=== PATIENT | male | born 1970 ===

== ENCOUNTER 2017-02-21 08:14 | Inpatient (IN) | payer MEDICARE, MEDICAID ==
[2017-02-21 08:14] VITALS: BMI 39.0
[2017-02-21] MEDS ORDERED: Sodium Chloride 0.9% 1,000 ML ONE (08:57)
[2017-02-21 09:04] LABS: BASO # 0.2 K/uL (0.0-0.2); BASO % 1.1 % (0.0-2.0); EOS % 0.2 % (0.0-4.0); HEMATOCRIT 46.6 % (35.0-51.0); LYMPH # 1.2 K/uL (1.0-4.3); LYMPH % 5.7 % (20.0-40.0); MEAN CELL VOLUME 85.1 fL (80.0-94.0); MEAN CORPUSCULAR HEMOGLOBIN 26.9 pg (27.0-31.0); MEAN CORPUSCULAR HGB CONC 31.6 g/dL (33.0-37.0); MEAN PLATELET VOLUME 8.1 fL (7.2-11.7); MONO # 1.5 K/uL (0.0-0.8); MONO % 7.3 % (0.0-10.0); RED CELL DISTRIBUTION WIDTH 15.5 % (11.5-14.5)
--- NOTE | 2017-02-21 09:08 | C.PDOC ---
History Of Present Illness 46 y/o male brought to the ED by EMS for evaluation of LUQ abdominal pain. Pt states that his pain radiates up into his chest and worsens with deep breaths. Patient states that he fell 1 1/2 months ago, and was seen at [facility] at the time due to his pain, and had CT scan done. Patient states that he was told he had "problems with his spleen", and was told to follow up with his PMD. Patient was seen by Dr. Ocampo yesterday, and was feeling better at the time. However, pt states he developed abdominal pain associated with shortness of breath, nausea, and vomiting last night. He denies cough, fever, diarrhea, dysuria/hematuria. Time Seen by Provider: 02/21/17 08:22 Chief Complaint (Nursing): Abdominal Pain History Per: Patient History/Exam Limitations: no limitations Onset/Duration Of Symptoms: Days (1) Current Symptoms Are (Timing): Still Present Location Of Pain/Discomfort: Diffuse, LUQ (greater in LUQ) Radiation Of Pain To:: Chest Quality Of Discomfort: "Pain" Associated Symptoms: Nausea, Vomiting. denies: Fever, Chills, Diarrhea, Loss Of Appetite, Back Pain, Constipation, Urinary Symptoms Exacerbating Factors: Deep Breaths Alleviating Factors: None Additional History Per: Patient Past Medical History Reviewed: Historical Data, Nursing Documentation, Vital Signs Vital Signs: Last Vital Signs Temp 97.5 F L 02/27/17 08:00 Pulse 88 02/27/17 08:00 Resp 18 02/27/17 08:00 BP 133/91 H 02/27/17 09:17 Pulse Ox 95 02/27/17 08:00 - Medical History PMH: Anxiety, Asthma, Atrial Fibrillation, Back Problems (Chronic), Bipolar Disorder, CAD, Cardia Arrhythmia, CHF, COPD, Depression, Emphysema, HTN, Hypercholesterolemia, Peripheral Edema, Sleep Apnea (not on cpap/has had sleep studies), Chronic Pain (Lower Back Pain) Surgical History: Appendectomy (2008), Coronary Stent (2008 - 2012 4 stents) - [facility] Procedures CORONAR ARTERIOGR-2 CATH (07/06/13) INJECT/INFUSE NEC (02/22/14) LEFT HEART CARDIAC CATH (07/06/13) LT HEART ANGIOCARDIOGRAM (07/06/13) NEBULIZER THERAPY (03/28/14) NON-INVASIVE MECHANICAL VENTILATION (03/26/15) TRANSFUSE NONAUT FROZEN PLASMA IN PERIPH VEIN, PERC (02/21/17) Family History: States: No Known Family Hx - Social History Hx Tobacco Use: Yes Hx Alcohol Use: No Hx Substance Use: Yes (Cocaine) - Immunization History Hx Tetanus Toxoid Vaccination: Yes Hx Influenza Vaccination: Yes Hx Pneumococcal Vaccination: Yes (08/2014) Review Of Systems Except As Marked, All Systems Reviewed And Found Negative. Constitutional: Negative for: Fever, Chills Cardiovascular: Negative for: Chest Pain, Palpitations Respiratory: Positive for: Shortness of Breath. Negative for: Cough, Sputum, Wheezing Gastrointestinal: Positive for: Nausea, Vomiting, Abdominal Pain. Negative for : Diarrhea, Constipation Genitourinary: Negative for: Dysuria, Frequency, Hematuria Musculoskeletal: Negative for: Back Pain Physical Exam - Physical Exam Appears: Non-toxic, In Acute Distress (in moderate pain), Other (anxious; morbidly obese) Skin: Normal Color, Warm, Dry Head: Normacephalic Eye(s): bilateral: Normal Inspection, EOMI Oral Mucosa: Moist Neck: Normal, Supple Chest: Symmetrical, No Tenderness Cardiovascular: Rhythm Irregular (irregularly irregular, tachycardic) Respiratory: No Accessory Muscle Use, Rales (mild rales at the bases), No Rhonchi, No Wheezing Gastrointestinal/Abdominal: Soft, Tenderness (diffuse tenderness, greatest in LUQ), Distention, No Guarding, No Rebound Back: Normal Inspection, No CVA Tenderness Extremity: Normal ROM, No Deformity Neurological/Psych: Oriented x3 ED Course And Treatment - Laboratory Results Result Diagrams: 02/27/17 07:29 02/27/17 07:29 ECG: Interpreted By Me, Viewed By Hi ECG Rhythm: Atrial Fibrillation, R BBB ECG Interpretation: Abnormal Interpretation Of ECG: Left axis deviation. T-wave inversion at AVL, V2, V3, V4 , V5. RBBB. No acute ST elevation. Rate From EC (bpm) O2 Sat by Pulse Oximetry: 98 (on RA) Pulse Ox Interpretation: Normal - CT Scan/US Abd Pelvis CT Other Rad Studies (CT/US): Read By Radiologist, Radiology Report Reviewed CT/US Interpretation: FINDINGS: LOWER THORAX: Unremarkable. LIVER: Unremarkable. No gross lesion or ductal dilatation. GALLBLADDER AND BILE DUCTS : Unremarkable. PANCREAS: Unremarkable. No gross lesion or ductal dilatation. SPLEEN: Spleen mildly enlarged compared to prior examination. Heterogeneous attenuation of spleen may reflect arterial phase of contrast enhancement. This may obscure splenic hematoma. Suggestion of subcapsular collection in the inferior lateral spleen. Consider reimaging at this later point in time to assist in evaluation. Re- examination of the patient was performed approximately 45 minutes following the initial examination for evaluation of the spleen. The heterogeneity Seen on initial examination persists on delayed imaging consistent with splenic hematoma. Less likely is an infiltrative neoplasm. There is high attenuation fluid again noted in the left pericolic gutter adjacent to the spleen. Possible small laceration. No gross splenic rupture. ADRENALS: Unremarkable. No mass. KIDNEYS AND URETERS: Unremarkable. No hydronephrosis. No solid mass. VASCULATURE: Unremarkable. No aortic aneurysm. BOWEL: Sigmoid diverticulosis. No evidence of diverticulitis. No bowel obstruction. APPENDIX: Not identified. No secondary findings of acute appendicitis. PERITONEUM: Trace ascites. Fluid in both pericolic gutters, left greater than right. Small amount of fluid in pelvis. High attenuation perisplenic fluid. Possible hemorrhage. LYMPH NODES: Unremarkable. No enlarged lymph nodes. BLADDER: Unremarkable. REPRODUCTIVE: Unremarkable. BONES: No acute fracture. OTHER FINDINGS: None. IMPRESSION: Findings concerning for splenic hematoma with possible small laceration and high attenuation fluid/ blood adjacent to spleen in left pericolic gutter. No gross splenic rupture. Progress Note: Blood work, CXR, EKG ordered and reviewed. Patient given IV zofran, IV dilaudid (states "allergic to morphine"). Patient has siginificant abdominal pain with leukocytosis - will get CT scan abd/pelvis with IV contrast. UA also ordered. 11:45PM- Spoke with Dr. Ocampo, he would like Dr. Senior for surgery. Dr. Senior spoken with, would like patient admitted to ICU. Will notify medical and surgical residents. 12:00- Spoke with senior sharepoint architect Dr. Jonas, he agrees with ICU admission, would like Vit K and 2 units FFP. Ordered. - Physician Consult Information Physician Contacted: Roque Ocampo Jr. Outcome Of Conversation: Spoke with Dr. Ocampo (9:05am), he states patient feel several days ago, was seen at [facility] two days ago, CT scan showed resolving splenic hematoma. He was seen in the office yesterday and was well. Critical Care Time - Critical Care Note Total Time (in mins): 40 Documented critical care: time excludes all time spent performing seperately billable procedures. Disposition - Disposition Disposition: HOSPITALIZED Disposition Time: 11:57 Condition: GUARDED - Clinical Impression Clinical Impression: Spleen hematoma, Abdominal pain, Anticoagulated on Coumadin - Scribe Statement The provider has reviewed the documentation as recorded by the Lashawnibpradeep Razo Provider Attestation: All medical record entries made by the Galindo were at my direction and personally dictated by me. I have reviewed the chart and agree that the record accurately reflects my personal performance of the history, physical exam, medical decision making, and the department course for this patient. I have also personally directed, reviewed, and agree with the discharge instructions and disposition. Decision To Admit - Pt Status Changed To: Hospital Disposition Of: Inpatient - Admit Certification Admit to Inpatient:: After my assessment, the patient will require hospitalization for at least two midnights. This is because of the severity of symptoms shown, intensity of services needed, and/or the medical risk in this patient being treated as an outpatient. - InPatient: Physician Admission Certification:: see notes - . Bed Request Type: ICU Admitting Physician: Roque Ocampo Jr. Patient Diagnosis: Spleen hematoma, Abdominal pain, Anticoagulated on Coumadin
[2017-02-21 09:10] LABS: CHLORIDE 95 mmol/L (98-107); POTASSIUM 5.4 mmol/L (3.6-5.2); SODIUM 136 mmol/L (132-148)
[2017-02-21 09:13] LABS: ALKALINE PHOSPHATASE 61 U/L (38-126); ALT/SGPT 43 U/L (21-72); AST/SGOT 58 U/L (17-59); BLOOD UREA NITROGEN 25 mg/dL (9-20); CARBON DIOXIDE 23 mmol/L (22-30); GFR AFRICAN-AMERICAN > 60; GLUCOSE,RANDOM 116 mg/dL (75-110); TOTAL PROTEIN 8.6 g/dL (6.3-8.3)
[2017-02-21 09:14] LABS: CALCIUM 9.1 mg/dl (8.6-10.4)
[2017-02-21 09:15] LABS: INR 2.1
[2017-02-21 09:16] LABS: PLATELET COUNT 406 K/uL (130-400); WHITE BLOOD COUNT 20.3 K/uL (4.8-10.8)
[2017-02-21] MEDS ORDERED: HYDROmorphone 1 mg/ml ISec IVP STA ×2 (09:16→11:35)
[2017-02-21] MEDS ORDERED: HYDROmorphone 1 mg/ml ISec ONE ×2 (09:19→11:42)
[2017-02-21 09:54] LABS: LARGE PLATELETS PRESENT; NEUTROPHIL 76 % (50-75); TOTAL CELLS COUNTED 100
[2017-02-21] MEDS ORDERED: Iodixanol 320 MG/ML 100 ML BOTTLE IV ONE (09:56)
--- NOTE | 2017-02-21 11:37 | CT ---
PROCEDURE: CT Abdomen and Pelvis with contrast HISTORY: luq severe abd pain, leukocytosis, evaluate spleen COMPARISON: 03/09/2015 TECHNIQUE: Contrast dose: 100 mL Visipaque 320 Radiation dose: Total exam DLP = 1281.09 mGy-cm. FINDINGS: LOWER THORAX: Unremarkable. LIVER: Unremarkable. No gross lesion or ductal dilatation. GALLBLADDER AND BILE DUCTS: Unremarkable. PANCREAS: Unremarkable. No gross lesion or ductal dilatation. SPLEEN: Spleen mildly enlarged compared to prior examination. Heterogeneous attenuation of spleen may reflect arterial phase of contrast enhancement. This may obscure splenic hematoma. Suggestion of subcapsular collection in the inferior lateral spleen. Consider reimaging at this later point in time to assist in evaluation. Re- examination of the patient was performed approximately 45 minutes following the initial examination for evaluation of the spleen. The heterogeneity Seen on initial examination persists on delayed imaging consistent with splenic hematoma. Less likely is an infiltrative neoplasm. There is high attenuation fluid again noted in the left pericolic gutter adjacent to the spleen. Possible small laceration. No gross splenic rupture. ADRENALS: Unremarkable. No mass. KIDNEYS AND URETERS: Unremarkable. No hydronephrosis. No solid mass. VASCULATURE: Unremarkable. No aortic aneurysm. BOWEL: Sigmoid diverticulosis. No evidence of diverticulitis. No bowel obstruction. APPENDIX: Not identified. No secondary findings of acute appendicitis. PERITONEUM: Trace ascites. Fluid in both pericolic gutters, left greater than right. Small amount of fluid in pelvis. High attenuation perisplenic fluid. Possible hemorrhage. LYMPH NODES: Unremarkable. No enlarged lymph nodes. BLADDER: Unremarkable. REPRODUCTIVE: Unremarkable. BONES: No acute fracture. OTHER FINDINGS: None. IMPRESSION: Findings concerning for splenic hematoma with possible small laceration and high attenuation fluid/ blood adjacent to spleen in left pericolic gutter. No gross splenic rupture.
[2017-02-21 11:54] LABS: RBC URINE 2 /hpf (0-3); URINE BILIRUBIN NEGATIVE (NEGATIVE); URINE BLOOD NEGATIVE (NEGATIVE); URINE COLOR Yellow (YELLOW); URINE GLUCOSE (UA) NORMAL (Normal); URINE HYALINE CAST >20 /lpf (0-2); URINE KETONE NEGATIVE (NEGATIVE); URINE LEUKOCYTE ESTERASE NEG Leu/uL (Negative); URINE PROTEIN NEGATIVE (NEGATIVE); URINE UROBILINOGEN NORMAL mg/dL (0.2-1.0); WBC URINE 1 /hpf (0-5)
--- NOTE | 2017-02-21 12:45 | CP.PCM.CON ---
History of Present Illness - History of Present Illness History of Present Illness: General/Vascular Surgery - Dr. Senior 46yo M w/ hx of HTN, CAD, CHF, Afib on coumadin, COPD, ARLENE, Bipolar d/o, Chronic back pain d/t herniated discs, presenting w/ LUQ abdominal pain radiating to the back since 4am this morning. Pt states that approx. 1 month ago he fell while at another hospital and developed some LUQ discomfort. He states he began feeling dizzy and worsening of the pain a few days ago so he went to [facility] for evaluation. Pt states a CT showed "a clot in my spleen" but he was told this would resolve and nothing more needed to be done. Pt states his pain improved over the past few days. He saw Dr. Ocampo in office and at that time the pain was better, however this morning he woke up around 4am with severe LUQ pain radiating to the back. Pt describes the pain as sharp, severe, similar to pain he experienced when he had appendicitis. He had associated nausea and 1 episode vomiting, non-bloody/non-bilious. Pt also admits to constipation. He denies any Fevers/Chills, SOB/CP, Diarrhea. Pt is seen in the ED. HR noted to be in the 140s-150s, irregular, BP stable and wnl. Labs significant for WBC of 20.3, K of 5.4. H/H was WNL. A CT abd/ pelvis was done which showed findings consistent w/ splenic hematoma and poss. small splenic laceration w/ high atten. fluid in pericolic gutter. PMH: HTN, CAD, CHF, Afib, COPD, ARLENE, Herniated discs L-spine, Bipolar/Depression PSH: Appendectomy (2008), Coronary stents x4 ([id number]) Review of Systems - Review of Systems All systems: reviewed and no additional remarkable complaints except (as per HPI ) Past Patient History - Infectious Disease Hx of Infectious Diseases: None - Tetanus Immunizations Tetanus Immunization: Up to Date - Past Medical History & Family History Past Medical History?: Yes - Past Social History Smoking Status: Former Smoker - CARDIAC Hx Atrial Fibrillation: Yes Hx Cardia Arrhythmia: Yes Hx Congestive Heart Failure: Yes Hx Hypercholesterolemia: Yes Hx Hypertension: Yes Hx Peripheral Edema: Yes - PULMONARY Hx Asthma: Yes Hx Chronic Obstructive Pulmonary Disease (COPD): Yes Hx Emphysema: Yes Hx Sleep Apnea: Yes (not on cpap/has had sleep studies) - NEUROLOGICAL Hx Neurological Disorder: No - HEENT Hx HEENT Problems: No - RENAL Hx Chronic Kidney Disease: No - ENDOCRINE/METABOLIC Hx Endocrine Disorders: No - HEMATOLOGICAL/ONCOLOGICAL Hx Blood Disorders: No - INTEGUMENTARY Hx Dermatological Problems: No - MUSCULOSKELETAL/RHEUMATOLOGICAL Hx Musculoskeletal Disorders: Yes Hx Back Pain: Yes (Patient verbalized, "lumbar area".) Hx Falls: Yes - GASTROINTESTINAL Hx Gastrointestinal Disorders: No - GENITOURINARY/GYNECOLOGICAL Hx Genitourinary Disorders: No - PSYCHIATRIC Hx Anxiety: Yes Hx Bipolar Disorder: Yes Hx Depression: Yes Hx Substance Use: Yes (Cocaine) - SURGICAL HISTORY Hx Appendectomy: Yes (2008) Hx Coronary Stent: Yes (2008 - 2012 4 stents) - ANESTHESIA Hx Anesthesia: Yes Hx Anesthesia Reactions: No Hx Malignant Hyperthermia: No Meds Allergies/Adverse Reactions: Allergies Allergy/AdvReac Type Severity Reaction Status Date / Time apixaban [From Eliquis] Allergy Verified 02/21/17 08:32 clopidogrel bisulfate Allergy Verified 02/21/17 08:32 [From Plavix] enoxaparin sodium Allergy Verified 02/21/17 08:32 [From Lovenox] morphine Allergy Verified 02/21/17 08:32 Physical Exam - Constitutional Appears: No Acute Distress Additional comments: anxious, sitting at edge of bed - Head Exam Head Exam: ATRAUMATIC, NORMAL INSPECTION, NORMOCEPHALIC - Respiratory Exam Respiratory Exam: NORMAL BREATHING PATTERN. absent: Respiratory Distress - Cardiovascular Exam Cardiovascular Exam: Tachycardia, Irregular Rhythm - GI/Abdominal Exam GI & Abdominal Exam: Distended, Soft, Tenderness (diffuse, increased in LUQ). absent: Firm, Guarding, Mass, Organomegaly, Rebound, Rigid - Extremities Exam Extremities exam: Positive for: pedal edema - Neurological Exam Neurological exam: Alert, Oriented x3 - Psychiatric Exam Psychiatric exam: Anxious, Manic - Skin Skin Exam: Dry, Intact Results - Vital Signs Recent Vital Signs: Last Vital Signs Temp 99 F 02/21/17 10:50 Pulse 79 02/21/17 10:50 Resp 20 02/21/17 10:50 BP 156/77 H 02/21/17 10:50 Pulse Ox 98 02/21/17 12:24 - Labs Result Diagrams: 02/21/17 08:52 02/21/17 08:52 Assessment & Plan - Assessment and Plan (Free Text) Assessment: 46 yo M w/ Afib with RVR, on coumadin, with splenic hematoma and poss. small splenic laceration -Admitted to ICU -Hold anticoag. -INR 2.1, transfusing FFP -Monitor BP, H&H -Cardiac eval. -No surgical plans but will monitor -DW Dr. Parrish Zamarripa PGY2
[2017-02-21] MEDS ORDERED: Digoxin 500 mcg/2ml (0.5 mg/2ml) Inj IVP ONE (13:07)
[2017-02-21] MEDS ORDERED: Digoxin 500 mcg/2ml (0.5 mg/2ml) Inj ONE (13:31)
--- NOTE | 2017-02-21 15:09 | CON ---
DATE: 02/21/2017 A 46-year-old man with history of back problems, history of atrial fibrillation on anticoagulation wi th Coumadin, was admitted to the hospital with abdominal pain after evaluation including CAT scan was found to have a contained splenic hematoma. The patient said earlier he was at the [facility] a number of days ago, was observed overnight and then discharged. PAST MEDICAL HISTORY: Includes a fall about 3 weeks ago and apart from this and back problems and pr oblems with atrial fibrillation ALLERGIES: HE HAS A VARIETY OF ALLERGIES INCLUDING APIXABAN, PLAVIX, LOVENOX, ETC. PHYSICAL EXAMINATION: GENERAL: He is a robust man, 5 feet 10 inches, 280 pounds is listed. ABDOMEN: Stomach is big. There is no particular tenderness or findings of that nature. IMPRESSION: Basically, this is a man who appears to have had sometime in the recent past a splenic h ematoma. He is on Coumadin. There is no evidence of any free bleeding or free blood His hematocrit is over 45. His white count is elevated at 20,000. His platelet count is slightly elevated. PLAN: Our plan at present is to monitor the patient. Because of his heart condition, the problems as sociated with anticoagulation, I think this should be reversed. 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 I have no plans for any surgery and I do not think embolization of the vessel is required at this time. This is a very complex case dealing both with problems of anticoagulation, bleeding, splenic injury, atrial fibrillation, etc. This was all reviewed and discussed with the staff. Papito Senior Jr., MD cc: [id number] TT: 02/21/2017 15:08:39 Confirmation # [id number] Dictation # [id number]
--- NOTE | 2017-02-21 15:33 | RAD ---
PROCEDURE: CHEST RADIOGRAPH, 1 VIEW HISTORY: LUQ PAIN COMPARISON: 12/07/2016 FINDINGS: LUNGS: Clear. PLEURA: No pneumothorax or pleural fluid seen. CARDIOVASCULAR: Mild cardiomegaly. OSSEOUS STRUCTURES: No significant abnormalities. VISUALIZED UPPER ABDOMEN: Normal. OTHER FINDINGS: None. IMPRESSION: No infiltrate. Mild cardiomegaly.
[2017-02-21] MEDS ORDERED: Albuterol HFA 90 mcg/actuation (8 g) INH PRN (16:18)
--- NOTE | 2017-02-21 17:25 | CP.PCM.CON ---
History of Present Illness - History of Present Illness History of Present Illness: 38-year-old male with past medical history of drug abuse, HTN, CAD, CHF, Afib, COPD, ARLENE, Herniated discs L-spine, Bipolar/Depression, Appendectomy (2008), Coronary stents x4 ([id number]). presented with abdominal pain. CT abdomen shows encapsulated splenic hemorrhage. Admitted to ICU for close monitoring Review of Systems - Review of Systems All systems: reviewed and no additional remarkable complaints except - Gastrointestinal Gastrointestinal: Abdominal Pain Past Patient History - Infectious Disease Hx of Infectious Diseases: None - Tetanus Immunizations Tetanus Immunization: Up to Date - Past Medical History & Family History Past Medical History?: Yes - Past Social History Smoking Status: Former Smoker - CARDIAC Hx Atrial Fibrillation: Yes Hx Cardia Arrhythmia: Yes Hx Congestive Heart Failure: Yes Hx Hypercholesterolemia: Yes Hx Hypertension: Yes Hx Peripheral Edema: Yes - PULMONARY Hx Asthma: Yes Hx Chronic Obstructive Pulmonary Disease (COPD): Yes Hx Emphysema: Yes Hx Sleep Apnea: Yes (not on cpap/has had sleep studies) - NEUROLOGICAL Hx Neurological Disorder: No - HEENT Hx HEENT Problems: No - RENAL Hx Chronic Kidney Disease: No - ENDOCRINE/METABOLIC Hx Endocrine Disorders: No - HEMATOLOGICAL/ONCOLOGICAL Hx Blood Disorders: No - INTEGUMENTARY Hx Dermatological Problems: No - MUSCULOSKELETAL/RHEUMATOLOGICAL Hx Falls: Yes - GASTROINTESTINAL Hx Gastrointestinal Disorders: No - GENITOURINARY/GYNECOLOGICAL Hx Genitourinary Disorders: No - PSYCHIATRIC Hx Anxiety: Yes Hx Bipolar Disorder: Yes Hx Depression: Yes Hx Substance Use: Yes (Cocaine) - SURGICAL HISTORY Hx Appendectomy: Yes (2008) Hx Coronary Stent: Yes (2008 - 2012 4 stents) - ANESTHESIA Hx Anesthesia: Yes Hx Anesthesia Reactions: No Hx Malignant Hyperthermia: No Meds Allergies/Adverse Reactions: Allergies Allergy/AdvReac Type Severity Reaction Status Date / Time apixaban [From Eliquis] Allergy Verified 02/21/17 08:32 clopidogrel bisulfate Allergy Verified 02/21/17 08:32 [From Plavix] enoxaparin sodium Allergy Verified 02/21/17 08:32 [From Lovenox] morphine Allergy Verified 02/21/17 08:32 - Medications Medications: Current Medications Albuterol (Ventolin Hfa 90 Mcg/Actuation (8 G)) 1 puff INH RBID PRN PRN Reason: Wheezing Alprazolam (Xanax) 1 mg PO TID PRN PRN Reason: .anxiety Carvedilol (Coreg) 12.5 mg PO BID [facility] Cyclobenzaprine HCl (Flexeril) 10 mg PO HS [facility] Digoxin (Lanoxin) 0.125 mg PO DAILY [facility] Diltiazem HCl (Cardizem) 30 mg PO QID [facility] Famotidine (Pepcid) 20 mg PO DAILY [facility] Fluoxetine HCl (Prozac) 30 mg PO DAILY [facility] Gabapentin (Neurontin) 300 mg PO BID [facility] Hydromorphone HCl (Dilaudid) 1 mg IVP Q4H PRN PRN Reason: Pain, moderate (4-7) Ibuprofen (Motrin Tab) 800 mg PO TID PRN PRN Reason: Pain, moderate (4-7) Montelukast Sodium (Singulair) 10 mg PO HS [facility] Nicotine (Nicoderm Cq) 1 patch TD DAILY [facility] Nitroglycerin (Nitrostat Sl Tab) 0.4 mg SL Q5M PRN PRN Reason: CHEST PAIN Oxycodone/Acetaminophen (Percocet 5/325 Mg Tab) 2 tab PO Q6H PRN PRN Reason: Pain, moderate (4-7) Stop: 02/24/17 18:01 Rosuvastatin Calcium (Crestor) 5 mg PO HS [facility] Senna/Docusate Sodium (Senokot S 50 Mg-8.6 Mg) 1 tab PO BID [facility] Physical Exam - Head Exam Head Exam: ATRAUMATIC, NORMAL INSPECTION, NORMOCEPHALIC - Eye Exam Eye Exam: EOMI, Normal appearance, PERRL - ENT Exam ENT Exam: Mucous Membranes Moist, Normal Exam - Respiratory Exam Respiratory Exam: Clear to Auscultation Bilateral, NORMAL BREATHING PATTERN - Cardiovascular Exam Cardiovascular Exam: REGULAR RHYTHM - GI/Abdominal Exam GI & Abdominal Exam: Tenderness. absent: Guarding - Neurological Exam Neurological exam: Alert, CN II-XII Intact, Normal Gait, Oriented x3, Reflexes Normal - Psychiatric Exam Psychiatric exam: Agitated Results - Vital Signs Recent Vital Signs: Last Vital Signs Temp 98.1 F 02/21/17 15:19 Pulse 118 H 02/21/17 15:19 Resp 26 H 02/21/17 15:19 BP 108/66 02/21/17 15:19 Pulse Ox 98 02/21/17 17:22 - Labs Result Diagrams: 02/21/17 08:52 02/21/17 08:52 Labs: Laboratory Results - last 24 hr 02/21/17 12:41 Blood Type O POSITIVE Blood Type Confirm O POSITIVE Antibody Screen Negative Assessment & Plan (1) Splenic hemorrhage Assessment and Plan: 38-year-old male with past medical history of drug abuse, HTN, CAD, CHF, Afib, COPD, ARLENE, Herniated discs L-spine, Bipolar/Depression, Appendectomy (2009), Coronary stents x4 ([id number]). presented with encapsulated splenic hemorrhage. Neuro: Alert and oriented 3 Pulm: No acute issues, breathing spontaneously on room air CV: Hemodynamically stable. hypertension, holding antihypertensives with possibility of ongoing bleed. Hem: No anemia from blood loss currently. patient was on Coumadin for A. fib and aspirin for CAD. Reversing Coumadin with vitamin K and 1 unit of FFP. Reversing aspirin with DDAVP and 1 unit of platelets. We'll monitor H&H every 6 hours. Renal: No acute issues, urine output within normal limits, will monitor. Endo: No acute issues GI: Regular diet ID: No acute issues DVT proph - anticoagulation held with current bleed, SCDs GI proph - Pepcid alarcon for strict I/O's during acute illness, and patient complains of urinary retention Code status - full code Crtical Care Time spent 35 minutes Multi-disciplinary rounds were performed with house staff, nursing, speech therapy, respiratory therapy, pharmacy and nutrition with integrated input from the primary team/attending and other consulting services. The documented time is cumulative and includes review of patient data/exams/labs/chart review and examination of the patient on rounds and throughout the day; time is exclusive of any procedures or teaching time. Status: Acute
[2017-02-21] MEDS ORDERED: DESMOPRESSIN IV ONE (17:27)
[2017-02-21] MEDS ORDERED: SODIUM CHLORIDE 0.9% IV ONE (17:27)
[2017-02-21] MEDS: HYDROmorphone 1 mg/ml ISec IVP PRN ×2 (17:37→21:38)
[2017-02-21] MEDS: Docusate-Senna 50 mg-8.6 mg Tab PO SCH (17:40)
[2017-02-21 18:22] LABS: HEMATOCRIT 42.6 % (35.0-51.0)
[2017-02-22] MEDS: HYDROmorphone 1 mg/ml ISec IVP PRN ×4 (01:41→19:49)
[2017-02-22 06:25] LABS: HEMATOCRIT 37.9 % (35.0-51.0); MEAN CELL VOLUME 84.7 fL (80.0-94.0); MEAN CORPUSCULAR HEMOGLOBIN 27.4 pg (27.0-31.0); MEAN CORPUSCULAR HGB CONC 32.4 g/dL (33.0-37.0); MEAN PLATELET VOLUME 8.5 fL (7.2-11.7); RED CELL DISTRIBUTION WIDTH 15.3 % (11.5-14.5)
[2017-02-22 06:34] LABS: CHLORIDE 93 mmol/L (98-107); POTASSIUM 4.7 mmol/L (3.6-5.2); SODIUM 132 mmol/L (132-148)
[2017-02-22 06:36] LABS: ALB/GLOB RATIO 0.9 (1.0-2.1); ALKALINE PHOSPHATASE 46 U/L (38-126); AST/SGOT 34 U/L (17-59); BILIRUBIN,TOTAL 1.5 mg/dL (0.2-1.3); BLOOD UREA NITROGEN 31 mg/dL (9-20); CARBON DIOXIDE 26 mmol/L (22-30); GFR AFRICAN-AMERICAN > 60; GLUCOSE,RANDOM 112 mg/dL (75-110); TOTAL PROTEIN 7.8 g/dL (6.3-8.3)
[2017-02-22 06:37] LABS: ALT/SGPT 36 U/L (21-72); CALCIUM 8.6 mg/dl (8.6-10.4); MAGNESIUM 1.9 mg/dL (1.6-2.3); PHOSPHOROUS 3.5 mg/dL (2.5-4.5)
--- NOTE | 2017-02-22 08:01 | CP.PCM.HP ---
History of Present Illness - History of Present Illness History of Present Illness: 46yo M w/ hx of HTN, CAD, CHF, Afib on coumadin, COPD, ARLENE, Bipolar d/o, Chronic back pain d/t herniated discs, presenting w/ LUQ abdominal pain radiating to the back since 4am this morning. Pt states that approx. 1 month ago he fell while at another hospital and developed some LUQ discomfort. He states he began feeling dizzy and worsening of the pain a few days ago so he went to [facility] [place]. Pt states a CT showed "a clot in my spleen" but he was told this would resolve and nothing more needed to be done. Pt states his pain improved over the past few days. He saw Dr. Ocampo in office and at that time the pain was better, however this morning he woke up around 4am with severe LUQ pain radiating to the back. Pt describes the pain as sharp, severe, similar to pain he experienced when he had appendicitis. He had associated nausea and 1 episode vomiting, non-bloody/non-bilious. Pt also admits to constipation. He denies any Fevers/Chills, SOB/CP, Diarrhea. Pt is seen in the ED. HR noted to be in the 140s-150s, irregular, BP stable and wnl. Labs significant for WBC of 20.3, K of 5.4. H/H was WNL. A CT abd/ pelvis was done which showed findings consistent w/ splenic hematoma and poss. small splenic laceration w/ high atten. fluid in pericolic gutter. PMH: HTN, CAD, CHF, Afib, COPD, ARLENE, Herniated discs L-spine, Bipolar/Depression PSH: Appendectomy (2008), Coronary stents x4 ([id number]) Present on Admission - Present on Admission Any Indicators Present on Admission: No Review of Systems - Review of Systems All systems: reviewed and no additional remarkable complaints except (as per HPI ) Past Patient History - Infectious Disease Hx of Infectious Diseases: None - Tetanus Immunizations Tetanus Immunization: Up to Date - Past Medical History & Family History Past Medical History?: Yes - Past Social History Smoking Status: Former Smoker - CARDIAC Hx Atrial Fibrillation: Yes Hx Cardia Arrhythmia: Yes Hx Congestive Heart Failure: Yes Hx Hypercholesterolemia: Yes Hx Hypertension: Yes Hx Peripheral Edema: Yes - PULMONARY Hx Asthma: Yes Hx Chronic Obstructive Pulmonary Disease (COPD): Yes Hx Emphysema: Yes Hx Sleep Apnea: Yes (not on cpap/has had sleep studies) - NEUROLOGICAL Hx Neurological Disorder: No - HEENT Hx HEENT Problems: No - RENAL Hx Chronic Kidney Disease: No - ENDOCRINE/METABOLIC Hx Endocrine Disorders: No - HEMATOLOGICAL/ONCOLOGICAL Hx Blood Disorders: No - INTEGUMENTARY Hx Dermatological Problems: No - MUSCULOSKELETAL/RHEUMATOLOGICAL Hx Falls: Yes - GASTROINTESTINAL Hx Gastrointestinal Disorders: No - GENITOURINARY/GYNECOLOGICAL Hx Genitourinary Disorders: No - PSYCHIATRIC Hx Anxiety: Yes Hx Bipolar Disorder: Yes Hx Depression: Yes Hx Substance Use: Yes (Cocaine) - SURGICAL HISTORY Hx Appendectomy: Yes (2008) Hx Coronary Stent: Yes (2008 - 2012 4 stents) - ANESTHESIA Hx Anesthesia: Yes Hx Anesthesia Reactions: No Hx Malignant Hyperthermia: No Meds Allergies/Adverse Reactions: Allergies Allergy/AdvReac Type Severity Reaction Status Date / Time apixaban [From Eliquis] Allergy Verified 02/21/17 08:32 clopidogrel bisulfate Allergy Verified 02/21/17 08:32 [From Plavix] enoxaparin sodium Allergy Verified 02/21/17 08:32 [From Lovenox] morphine Allergy Verified 02/21/17 08:32 Physical Exam - Constitutional Additional comments: anxious - Head Exam Head Exam: ATRAUMATIC, NORMOCEPHALIC - Respiratory Exam Respiratory Exam: NORMAL BREATHING PATTERN - Cardiovascular Exam Cardiovascular Exam: Irregular Rhythm, +S1, +S2 - GI/Abdominal Exam GI & Abdominal Exam: Distended, Normal Bowel Sounds, Soft, Tenderness - Extremities Exam Extremities exam: Positive for: pedal edema - Neurological Exam Neurological exam: Alert, Oriented x3 - Skin Skin Exam: Dry, Warm Results - Vital Signs Recent Vital Signs: Last Vital Signs Temp 98.5 F 02/22/17 04:00 Pulse 88 02/22/17 05:00 Resp 21 02/22/17 05:00 BP 121/101 H 02/22/17 01:00 Pulse Ox 90 L 02/22/17 02:00 - Labs Result Diagrams: 02/22/17 06:18 02/22/17 06:18 Labs: Laboratory Results - last 24 hr 02/21/17 02/21/17 02/22/17 12:41 18:08 06:18 WBC 26.0 H RBC 4.48 Hgb 13.3 12.3 Hct 42.6 37.9 MCV 84.7 MCH 27.4 MCHC 32.4 L RDW 15.3 H Plt Count 306 D MPV 8.5 PT 22.5 H INR 2.0 APTT 37 H D Sodium 132 Potassium 4.7 Chloride 93 L Carbon Dioxide 26 Anion Gap 18 BUN 31 H Creatinine 1.2 Est GFR ( Amer) > 60 Est GFR (Non-Af Amer) > 60 Random Glucose 112 H Calcium 8.6 Phosphorus 3.5 Magnesium 1.9 Total Bilirubin 1.5 H AST 34 ALT 36 Alkaline Phosphatase 46 Total Protein 7.8 Albumin 3.7 Globulin 4.0 H Albumin/Globulin Ratio 0.9 L Blood Type O POSITIVE Blood Type Confirm O POSITIVE Antibody Screen Negative Assessment & Plan - Assessment and Plan (Free Text) Assessment: Abdominal pain - Secondary to splenic hematoma - Management per surgery Afib with RVR - holding anticoagulation - management as per ICU
--- NOTE | 2017-02-22 09:06 | CP.PCM.PN ---
Subjective - Date & Time of Evaluation Date of Evaluation: 02/22/17 Time of Evaluation: 08:00 - Subjective Subjective: General Surgery Pt S&E, NAEO. Still with pain in LUQ and L chest only mildly diminished with pain meds. Tolerating diet. Objective - Vital Signs/Intake and Output Vital Signs (last 24 hours): Temp Pulse Resp BP Pulse Ox 98.5 F 111 H 29 H 124/101 H 91 L 02/22/17 04:00 02/22/17 08:00 02/22/17 08:00 02/22/17 01:01 02/22/17 02:00 Intake and Output: 02/22/17 02/22/17 06:59 18:59 Intake Total 1390 200 Output Total 875 Balance 515 200 - Medications Medications: Current Medications Albuterol (Ventolin Hfa 90 Mcg/Actuation (8 G)) 1 puff INH RBID PRN PRN Reason: Wheezing Alprazolam (Xanax) 1 mg PO TID PRN PRN Reason: .anxiety Last Admin: 02/22/17 03:05 Dose: 1 mg Carvedilol (Coreg) 12.5 mg PO BID [facility] Last Admin: 02/21/17 17:39 Dose: 12.5 mg Cyclobenzaprine HCl (Flexeril) 10 mg PO [facility] Last Admin: 02/21/17 21:38 Dose: 10 mg Digoxin (Lanoxin) 0.125 mg PO DAILY [facility] Diltiazem HCl (Cardizem) 30 mg PO QID [facility] Last Admin: 02/21/17 21:38 Dose: 30 mg Famotidine (Pepcid) 20 mg PO DAILY [facility] Fluoxetine HCl (Prozac) 30 mg PO DAILY [facility] Gabapentin (Neurontin) 300 mg PO BID [facility] Last Admin: 02/21/17 17:40 Dose: 300 mg Hydromorphone HCl (Dilaudid) 1 mg IVP Q4H PRN PRN Reason: Pain, moderate (4-7) Last Admin: 02/22/17 05:49 Dose: 1 mg Ibuprofen (Motrin Tab) 800 mg PO TID PRN PRN Reason: Pain, moderate (4-7) Montelukast Sodium (Singulair) 10 mg PO [facility] Last Admin: 02/21/17 21:38 Dose: 10 mg Nicotine (Nicoderm Cq) 1 patch TD DAILY [facility] Last Admin: 02/21/17 17:40 Dose: 1 patch Nitroglycerin (Nitrostat Sl Tab) 0.4 mg SL Q5M PRN PRN Reason: CHEST PAIN Oxycodone/Acetaminophen (Percocet 5/325 Mg Tab) 2 tab PO Q6H PRN PRN Reason: Pain, moderate (4-7) Stop: 02/24/17 18:01 Rosuvastatin Calcium (Crestor) 5 mg PO HS [facility] Last Admin: 02/21/17 21:37 Dose: 5 mg Senna/Docusate Sodium (Senokot S 50 Mg-8.6 Mg) 1 tab PO BID [facility] Last Admin: 02/21/17 17:40 Dose: 1 tab - Labs Labs: 02/22/17 06:18 02/22/17 06:18 PT 22.5 SECONDS (9.7-12.2) H 02/22/17 06:18 INR 2.0 02/22/17 06:18 APTT 37 SECONDS (21-34) H D 02/22/17 06:18 - Constitutional Appears: Non-toxic, No Acute Distress - Head Exam Head Exam: ATRAUMATIC, NORMOCEPHALIC - Eye Exam Eye Exam: EOMI. absent: Scleral icterus - Respiratory Exam Respiratory Exam: NORMAL BREATHING PATTERN. absent: Respiratory Distress - GI/Abdominal Exam GI & Abdominal Exam: Guarding (LUQ), Soft, Tenderness (in LUQ). absent: Distended, Firm, Rigid - Neurological Exam Neurological Exam: Alert, Awake, Oriented x3 - Skin Skin Exam: Dry, Warm Assessment and Plan - Assessment and Plan (Free Text) Assessment: 46M with Afib with RVR, on coumadin, with splenic hematoma and poss. small splenic laceration Plan: Monitor H&H. Holding anticoagulation. Will D/W Dr. Senior. PGY3
[2017-02-22] MEDS ORDERED: Pneumococcal 23-Valent Vaccine SC ONE ×2 (09:53→10:18)
[2017-02-22] MEDS ORDERED: Phytonadione 10 mg/ml Inj (Adult) SC STA (10:05)
[2017-02-22] MEDS: Digoxin 125 mcg (0.125 mg) Tab PO SCH (10:22)
[2017-02-22] MEDS ORDERED: Phytonadione 10 mg/ml Inj (Adult) SC ONE (10:30)
--- NOTE | 2017-02-22 11:04 | RAD ---
HISTORY: r/o pna COMPARISON: 02/21/2017 FINDINGS: LUNGS: Vaguely linear opacity at right lung base likely reflects atelectasis. Rule out early pneumonia. No infiltrate elsewhere. PLEURA: Limited. Left costophrenic angle is not included on this film. Right costophrenic angle clear. No pneumothorax. CARDIOVASCULAR: Mild congestive change. Heart size cannot be evaluated due to gross magnification. OSSEOUS STRUCTURES: No significant abnormalities. VISUALIZED UPPER ABDOMEN: Normal. OTHER FINDINGS: None. IMPRESSION: Probable linear atelectasis at right lung base. Followup.
[2017-02-22] MEDS: Docusate-Senna 50 mg-8.6 mg Tab PO SCH ×2 (11:37→17:52)
[2017-02-22] MEDS: Piperacill/Tazo 3.375gm in Dex 50 ML IVPB SCH ×3 (11:38→22:11)
--- NOTE | 2017-02-22 15:37 | CP.CCUPN ---
CCU Subjective - Physician Review Events Since Last Encounter (Free Text): 02/22/17 15:32 Patient is belligerent at baseline. No real complaints of clinical symptoms. CCU Objective - Vital Signs / Intake & Output Vital Signs (Last 4 hours): Vital Signs Pulse Resp BP 02/22/17 14:00 72 22 02/22/17 13:41 79 16 02/22/17 13:00 102 H 02/22/17 12:17 93 H 02/22/17 12:03 86 18 133/91 H 02/22/17 12:00 86 21 Intake and Output (Last 8hrs): Intake & Output 02/22/17 02/22/17 02/22/17 06:59 14:59 22:59 Intake Total 780 1050 Output Total 550 Balance 230 1050 Intake: Intake, IV Amount 100 Right Antecubital 100 Oral 780 950 Output: Urine 550 Urine, Voided 550 - Physical Exam Head: Positive for: Atraumatic, Normocephalic Pupils: Positive for: PERRL Extroacular Muscles: Positive for: EOMI Mouth: Positive for: Moist Mucous Membranes Neck: Positive for: Normal Range of Motion Respiratory/Chest: Positive for: Clear to Auscultation, Good Air Exchange Cardiovascular: Positive for: Regular Rate and Rhythm Abdomen: Positive for: Normal Bowel Sounds. Negative for: Tenderness, Distention, Peritoneal Signs Neurological: Positive for: GCS=15, CN II-XII Intact, Speech Normal Psychiatric: Positive for: Alert, Oriented x 3 - Medications Active Medications: Active Medications Generic Name Dose Route Start Last Admin Trade Name Freq PRN Reason Stop Dose Admin Albuterol 1 puff 02/21/17 16:18 Ventolin Hfa 90 Mcg/Actuation (8 G) INH RBID PRN Wheezing Alprazolam 1 mg 02/21/17 16:09 02/22/17 12:19 Xanax PO 1 mg TID PRN Administration .anxiety Carvedilol 12.5 mg 02/21/17 18:00 02/22/17 09:00 Coreg PO 12.5 mg BID JEIMY Administration Cyclobenzaprine HCl 10 mg 02/21/17 22:00 02/21/17 21:38 Flexeril PO 10 mg HS JEIMY Administration Digoxin 0.125 mg 02/22/17 10:00 02/22/17 10:22 Lanoxin PO 0.125 mg DAILY JEIMY Administration Diltiazem HCl 30 mg 02/21/17 18:00 02/22/17 11:54 Cardizem PO 30 mg QID JEIMY Administration Famotidine 20 mg 02/22/17 10:00 02/22/17 10:22 Pepcid PO 20 mg DAILY JEIMY Administration Fluoxetine HCl 30 mg 02/22/17 10:00 02/22/17 11:00 Prozac PO 30 mg DAILY JEIMY Administration Gabapentin 300 mg 02/21/17 18:00 02/22/17 11:39 Neurontin PO 300 mg BID JEIMY Administration Hydromorphone HCl 1 mg 02/21/17 17:12 02/22/17 10:19 Dilaudid IVP 1 mg Q4H PRN Administration Pain, moderate (4-7) Piperacillin Sod/Tazobactam Sod 50 mls @ 100 mls/hr 02/22/17 11:00 02/22/17 11: 38 Zosyn 3.375 Gm Iv Premix IVPB 100 mls/hr Q6H JEIMY Administration Ibuprofen 800 mg 02/21/17 16:09 Motrin Tab PO TID PRN Pain, moderate (4-7) Montelukast Sodium 10 mg 02/21/17 22:00 02/21/17 21:38 Singulair PO 10 mg HS JEIMY Administration Nicotine 1 patch 02/21/17 16:15 02/22/17 11:55 Nicoderm Cq TD 1 patch DAILY [facility]IM[facility] Administration Nitroglycerin 0.4 mg 02/21/17 16:45 Nitrostat Sl Tab SL Q5M PRN CHEST PAIN Oxycodone/Acetaminophen 2 tab 02/21/17 18:00 Percocet 5/325 Mg Tab PO 02/24/17 18:01 Q6H PRN Pain, moderate (4-7) Rosuvastatin Calcium 5 mg 02/21/17 22:00 02/21/17 21:37 Crestor PO 5 mg HS JEIMY Administration Senna/Docusate Sodium 1 tab 02/21/17 18:00 02/22/17 11:37 Senokot S 50 Mg-8.6 Mg PO 1 tab BID JEIMY Administration - Patient Studies Lab Studies: Lab Studies 02/22/17 02/21/17 Range/Units 06:18 18:08 WBC 26.0 H (4.8-10.8) K/uL RBC 4.48 (4.40-5.90) Mil/uL Hgb 12.3 13.3 (12.0-18.0) g/dL Hct 37.9 42.6 (35.0-51.0) % MCV 84.7 (80.0-94.0) fL MCH 27.4 (27.0-31.0) pg MCHC 32.4 L (33.0-37.0) g/dL RDW 15.3 H (11.5-14.5) % Plt Count 306 D (130-400) K/uL MPV 8.5 (7.2-11.7) fL Differential Comment PT 22.5 H (9.7-12.2) SECONDS INR 2.0 APTT 37 H D (21-34) SECONDS Sodium 132 (132-148) mmol/L Potassium 4.7 (3.6-5.2) mmol/L Chloride 93 L (98-107) mmol/L Carbon Dioxide 26 (22-30) mmol/L Anion Gap 18 (10-20) BUN 31 H (9-20) mg/dL Creatinine 1.2 (0.8-1.5) MG/DL Est GFR ( Amer) > 60 Est GFR (Non-Af Amer) > 60 Random Glucose 112 H (75-110) mg/dL Calcium 8.6 (8.6-10.4) mg/dl Phosphorus 3.5 (2.5-4.5) mg/dL Magnesium 1.9 (1.6-2.3) mg/dL Total Bilirubin 1.5 H (0.2-1.3) mg/dL AST 34 (17-59) U/L ALT 36 (21-72) U/L Alkaline Phosphatase 46 (38-126) U/L Total Protein 7.8 (6.3-8.3) g/dL Albumin 3.7 (3.5-5.0) g/dL Globulin 4.0 H (2.2-3.9) gm/dL Albumin/Globulin Ratio 0.9 L (1.0-2.1) Laboratory Results - last 24 hr 02/21/17 02/22/17 18:08 06:18 WBC 26.0 H RBC 4.48 Hgb 13.3 12.3 Hct 42.6 37.9 MCV 84.7 MCH 27.4 MCHC 32.4 L RDW 15.3 H Plt Count 306 D MPV 8.5 Differential Comment PT 22.5 H INR 2.0 APTT 37 H D Sodium 132 Potassium 4.7 Chloride 93 L Carbon Dioxide 26 Anion Gap 18 BUN 31 H Creatinine 1.2 Est GFR ( Amer) > 60 Est GFR (Non-Af Amer) > 60 Random Glucose 112 H Calcium 8.6 Phosphorus 3.5 Magnesium 1.9 Total Bilirubin 1.5 H AST 34 ALT 36 Alkaline Phosphatase 46 Total Protein 7.8 Albumin 3.7 Globulin 4.0 H Albumin/Globulin Ratio 0.9 L EKG/Cardiology Studies: Cardiology / EKG Studies 02/21/17 21:14 EKG [ELECTROCARDIOGRAM] Routine Comment: Mode Of Transportation: PORTABLE Reason For Exam: cp Fingerstick Blood Sugar Results: 117 Review of Systems - Review of Systems All systems: reviewed and no additional remarkable complaints except - Gastrointestinal Gastrointestinal: UNREMARKABLE Critical Care Progress Note - Nutrition Nutrition: Nutrition Category Date Time Status Regular Diet [DIET] Diets 02/21/17 Dinner Active Assessment/Plan (1) Splenic hemorrhage Assessment and plan: 38-year-old male with past medical history of drug abuse, HTN, CAD, CHF, Afib, COPD, ARLENE, Herniated discs L-spine, Bipolar/Depression, Appendectomy (2008), Coronary stents x4 ([id number]). (02/21) presented with encapsulated splenic hemorrhage. Neuro: Alert and oriented 3 Pulm: No acute issues, breathing spontaneously on room air CV: Hemodynamically stable. hypertension, holding antihypertensives with possibility of ongoing bleed. Hem: No anemia from blood loss currently. patient was on Coumadin for A. fib and aspirin for CAD. Reversing Coumadin with repeat vitamin K and 2 more units of FFP (total 3). Reversed aspirin with DDAVP and 1 unit of platelets. Will monitor H&H every 6 hours. 10 point drop in hematocrit from (02/21), will scan abdomen. Renal: No acute issues, urine output within normal limits, will monitor. Endo: No acute issues GI: Regular diet. splenic hemorrhage, obtaining repeat CT abdomen to assess for bleeding. Vascular surgery - Dr. Senior following. ID: No acute issues DVT proph - anticoagulation held with current bleed, SCDs GI proph - Pepcid Code status - full code Crtical Care Time spent 35 minutes Multi-disciplinary rounds were performed with house staff, nursing, speech therapy, respiratory therapy, pharmacy and nutrition with integrated input from the primary team/attending and other consulting services. The documented time is cumulative and includes review of patient data/exams/labs/chart review and examination of the patient on rounds and throughout the day; time is exclusive of any procedures or teaching time. Current Visit: Yes Status: Acute
--- NOTE | 2017-02-22 16:10 | CT ---
PROCEDURE: CT Abdomen and Pelvis without intravenous contrast HISTORY: assess splenic hemorrhage COMPARISON: 02/21/2017 TECHNIQUE: Without contrast.. Contrast Dose: 0 Radiation dose: Total exam DLP = 1119.04 mGy-cm. FINDINGS: LOWER THORAX: Linear atelectasis in both lower lobes. Trace left pleural effusion. LIVER: Hepatomegaly. Smooth contour. No mass. No biliary ductal dilatation. GALLBLADDER AND BILE DUCTS: Unremarkable. PANCREAS: Unremarkable. No gross lesion or ductal dilatation. SPLEEN: The spleen is mildly enlarged. It measures 14.6 cm in greatest dimension. There is an irregular contour of the spleen in its anterior aspect suggestive of laceration. There is no evidence of otto splenic rupture.There is infiltration of the perisplenic fat, likely due to small amount of hemorrhage. The spleen is heterogeneous in attenuation, suggestive of splenic hematoma. There is no clear evidence of subcapsular hematoma. ADRENALS: Unremarkable. No mass. KIDNEYS AND URETERS: Unremarkable. No hydronephrosis. No solid mass. VASCULATURE: Unremarkable. No aortic aneurysm. BOWEL: Sigmoid diverticulosis. No evidence of diverticulitis. No bowel obstruction. No other abnormal bowel loops. APPENDIX: Not identified. No secondary findings to suggest acute appendicitis peer PERITONEUM: Small amount of fluid in left pericolic gutter and in pelvis. LYMPH NODES: Unremarkable. No enlarged lymph nodes. BLADDER: Unremarkable. REPRODUCTIVE: Unremarkable prostate BONES: No acute fracture. OTHER FINDINGS: None. IMPRESSION: Heterogeneous spleen with fluid adjacent to spleen in left pericolic gutter an infiltration of perisplenic fat. Irregular contour of spleen. Likely splenic laceration and splenic hematoma. No gross splenic rupture. Hepatosplenomegaly.
[2017-02-22] MEDS ORDERED: Sodium Chloride 0.9% 500 ML IV ONE (21:20)
[2017-02-23] MEDS: Piperacill/Tazo 3.375gm in Dex 50 ML IVPB SCH ×4 (04:45→22:20)
[2017-02-23 06:41] LABS: BASO # 0.1 K/uL (0.0-0.2); BASO % 0.3 % (0.0-2.0); EOS # 0.3 K/uL (0.0-0.7); EOS % 1.2 % (0.0-4.0); HEMATOCRIT 33.5 % (35.0-51.0); LYMPH # 1.3 K/uL (1.0-4.3); MEAN CORPUSCULAR HGB CONC 31.7 g/dL (33.0-37.0); MEAN PLATELET VOLUME 8.3 fL (7.2-11.7); MONO # 1.9 K/uL (0.0-0.8); MONO % 7.2 % (0.0-10.0); PLATELET COUNT 257 K/uL (130-400); RED CELL DISTRIBUTION WIDTH 15.4 % (11.5-14.5); WHITE BLOOD COUNT 26.1 K/uL (4.8-10.8)
[2017-02-23 07:03] LABS: POTASSIUM 3.7 mmol/L (3.6-5.2)
[2017-02-23 07:05] LABS: ALB/GLOB RATIO 0.8 (1.0-2.1); TOTAL PROTEIN 7.2 g/dL (6.3-8.3)
[2017-02-23 07:06] LABS: CALCIUM 7.8 mg/dl (8.6-10.4); MAGNESIUM 1.9 mg/dL (1.6-2.3)
--- NOTE | 2017-02-23 07:17 | CP.CCUPN ---
<Adis Malone - Last Filed: 02/23/17 14:19> CCU Subjective - Physician Review Subjective (Free Text): 02/23/17 14:10 Pt seen and examined. Patient OOB to chair, eating breakfast and lunch in no acute distress. Patient extremely agitated, yelling at the medical team requiring the presence of security. Patient does not appear to be attentive to the team though. Patient's behavior quite disruptive drawing the attention of other patients and their family members in the ICU. Patient complains of pain in the LUQ, as well as new onset dysuria. Patient also complains of reproducible left sided chest pain with inspiration. When asked to wear the oxygen nasal cannula; patient refused. Patient also pulled of pulse-ox monitor. During rounds, patient was sleeping after administration of analgesics. Patient keeps asking for pain medications, despite being given . Patient extremely combative. Critical Care Time Spent (in minutes): 40 CCU Objective - Vital Signs / Intake & Output Vital Signs (Last 4 hours): Vital Signs Pulse Resp BP Pulse Ox 02/23/17 07:00 91 H 24 77 L 02/23/17 06:51 103 H 29 H 124/69 91 L 02/23/17 06:44 108 H 30 H 02/23/17 06:00 94 H 22 83 L 02/23/17 05:21 95 H 22 87 L 02/23/17 05:00 87 22 86 L 02/23/17 04:51 79 21 136/118 H 94 L 02/23/17 04:32 86 21 94 L 02/23/17 04:17 78 22 96/69 L 90 L 02/23/17 04:01 96/64 L 02/23/17 04:00 90 20 82 L 02/23/17 03:45 79 21 96/64 L 91 L 02/23/17 03:27 84 21 86 L Intake and Output (Last 8hrs): Intake & Output 02/22/17 02/23/17 02/23/17 22:59 06:59 14:59 Intake Total 1190 530 Output Total 275 Balance 1190 255 Intake: Intake, IV Amount 650 50 Right Antecubital 650 50 Oral 540 480 Output: Urine 275 Urine, Voided 275 - Physical Exam Head: Positive for: Atraumatic, Normocephalic Pupils: Positive for: PERRL Extroacular Muscles: Positive for: EOMI Mouth: Positive for: Moist Mucous Membranes Neck: Positive for: Normal Range of Motion Respiratory/Chest: Positive for: Clear to Auscultation, Good Air Exchange. Negative for: Respiratory Distress, Accessory Muscle Use Cardiovascular: Positive for: Regular Rate and Rhythm, Other (reproducible chest pain) Abdomen: Positive for: Normal Bowel Sounds. Negative for: Tenderness, Distention, Peritoneal Signs Upper Extremity: Positive for: Normal ROM Neurological: Positive for: GCS=15, CN II-XII Intact, Speech Normal Skin: Positive for: Warm, Dry Psychiatric: Positive for: Alert, Oriented x 3 - Medications Active Medications: Active Medications Generic Name Dose Route Start Last Admin Trade Name Freq PRN Reason Stop Dose Admin Albuterol 1 puff 02/21/17 16:18 Ventolin Hfa 90 Mcg/Actuation (8 G) INH RBID PRN Wheezing Alprazolam 1 mg 02/21/17 16:09 02/23/17 00:06 Xanax PO 1 mg TID PRN Administration .anxiety Carvedilol 12.5 mg 02/21/17 18:00 02/22/17 17:44 Coreg PO Not Given BID JEIMY Cyclobenzaprine HCl 10 mg 02/21/17 22:00 02/22/17 23:18 Flexeril PO 10 mg HS JEIMY Administration Digoxin 0.125 mg 02/22/17 10:00 02/22/17 10:22 Lanoxin PO 0.125 mg DAILY JEIMY Administration Diltiazem HCl 30 mg 02/21/17 18:00 02/22/17 21:14 Cardizem PO Not Given QID JEIMY Famotidine 20 mg 02/22/17 10:00 02/22/17 10:22 Pepcid PO 20 mg DAILY JEIMY Administration Fluoxetine HCl 30 mg 02/22/17 10:00 02/22/17 11:00 Prozac PO 30 mg DAILY JEIMY Administration Gabapentin 300 mg 02/21/17 18:00 02/22/17 19:48 Neurontin PO 300 mg BID JEIMY Administration Hydromorphone HCl 1 mg 02/21/17 17:12 02/22/17 19:49 Dilaudid IVP 1 mg Q4H PRN Administration Pain, moderate (4-7) Piperacillin Sod/Tazobactam Sod 50 mls @ 100 mls/hr 02/22/17 11:00 02/23/17 04: 45 Zosyn 3.375 Gm Iv Premix IVPB 100 mls/hr Q6H JEIMY Administration Ibuprofen 800 mg 02/21/17 16:09 Motrin Tab PO TID PRN Pain, moderate (4-7) Montelukast Sodium 10 mg 02/21/17 22:00 02/22/17 23:18 Singulair PO 10 mg HS JEIMY Administration Nicotine 1 patch 02/21/17 16:15 02/22/17 11:55 Nicoderm Cq TD 1 patch DAILY JEIMY Administration Nitroglycerin 0.4 mg 02/21/17 16:45 Nitrostat Sl Tab SL Q5M PRN CHEST PAIN Oxycodone/Acetaminophen 2 tab 02/21/17 18:00 Percocet 5/325 Mg Tab PO 02/24/17 18:01 Q6H PRN Pain, moderate (4-7) Rosuvastatin Calcium 5 mg 02/21/17 22:00 02/22/17 23:18 Crestor PO 5 mg HS JEIMY Administration Senna/Docusate Sodium 1 tab 02/21/17 18:00 02/22/17 17:52 Senokot S 50 Mg-8.6 Mg PO 1 tab BID JEIMY Administration - Patient Studies Lab Studies: Lab Studies 02/23/17 02/23/17 02/22/17 Range/Units 06:34 06:33 06:18 WBC 26.1 H (4.8-10.8) K/uL RBC 3.94 L (4.40-5.90) Mil/uL Hgb 10.6 L (12.0-18.0) g/dL Hct 33.5 L (35.0-51.0) % MCV 85.0 (80.0-94.0) fL MCH 27.0 (27.0-31.0) pg MCHC 31.7 L (33.0-37.0) g/dL RDW 15.4 H (11.5-14.5) % Plt Count 257 (130-400) K/uL MPV 8.3 (7.2-11.7) fL Neut % (Auto) 86.3 H (50.0-75.0) % Lymph % (Auto) 5.0 L (20.0-40.0) % [place] % (Auto) 7.2 (0.0-10.0) % Eos % (Auto) 1.2 (0.0-4.0) % Baso % (Auto) 0.3 (0.0-2.0) % Neut # 22.5 H (1.8-7.0) K/uL Lymph # 1.3 (1.0-4.3) K/uL [place] # 1.9 H (0.0-0.8) K/uL Eos # 0.3 (0.0-0.7) K/uL Baso # 0.1 (0.0-0.2) K/uL Differential Comment Sodium 135 (132-148) mmol/L Potassium 3.7 (3.6-5.2) mmol/L Chloride 93 L (98-107) mmol/L Carbon Dioxide 27 (22-30) mmol/L Anion Gap 19 (10-20) BUN 38 H (9-20) mg/dL Creatinine 1.6 H (0.8-1.5) MG/DL Est GFR ( Amer) 56 Est GFR (Non-Af Amer) 46 Random Glucose 106 (75-110) mg/dL Calcium 7.8 L (8.6-10.4) mg/dl Phosphorus 3.0 (2.5-4.5) mg/dL Magnesium 1.9 (1.6-2.3) mg/dL Total Bilirubin 1.0 (0.2-1.3) mg/dL AST 32 (17-59) U/L ALT 28 (21-72) U/L Alkaline Phosphatase 54 (38-126) U/L Total Protein 7.2 (6.3-8.3) g/dL Albumin 3.2 L (3.5-5.0) g/dL Globulin 4.0 H (2.2-3.9) gm/dL Albumin/Globulin Ratio 0.8 L (1.0-2.1) Laboratory Results - last 24 hr 02/22/17 02/23/17 02/23/17 06:18 06:33 06:34 WBC 26.1 H RBC 3.94 L Hgb 10.6 L Hct 33.5 L MCV 85.0 MCH 27.0 MCHC 31.7 L RDW 15.4 H Plt Count 257 MPV 8.3 Neut % (Auto) 86.3 H Lymph % (Auto) 5.0 L [place] % (Auto) 7.2 Eos % (Auto) 1.2 Baso % (Auto) 0.3 Neut # 22.5 H Lymph # 1.3 [place] # 1.9 H Eos # 0.3 Baso # 0.1 Differential Comment Sodium 135 Potassium 3.7 Chloride 93 L Carbon Dioxide 27 Anion Gap 19 BUN 38 H Creatinine 1.6 H Est GFR ( Amer) 56 Est GFR (Non-Af Amer) 46 Random Glucose 106 Calcium 7.8 L Phosphorus 3.0 Magnesium 1.9 Total Bilirubin 1.0 AST 32 ALT 28 Alkaline Phosphatase 54 Total Protein 7.2 Albumin 3.2 L Globulin 4.0 H Albumin/Globulin Ratio 0.8 L Fingerstick Blood Sugar Results: 117 Review of Systems - Constitutional Constitutional: absent: Fever, Chills, Sweats - EENT Eyes: As Per HPI Ears: As Per HPI Nose/Mouth/Throat: absent: Nasal Congestion, Nasal Discharge - Cardiovascular Cardiovascular: absent: Chest Pain at Rest - Respiratory Respiratory: absent: Dyspnea, Wheezing - Gastrointestinal Gastrointestinal: absent: Abdominal Pain - Genitourinary Genitourinary: Dysuria - Integumentary Integumentary: Dry Skin, Rash - Neurological Neurological: absent: Abnormal Gait, Abnormal Hearing, Abnormal Movements - Psychiatric Psychiatric: Behavioral Changes, Irritability, Mood Swings Critical Care Progress Note - Nutrition Nutrition: Nutrition Category Date Time Status Regular Diet [DIET] Diets 02/21/17 Dinner Active Assessment/Plan - Assessment and Plan (Free Text) Assessment: 46M with a past medical history of HTN, CAD, CHF, A-fib on coumadin, COPD, ARLENE, bipolar disorder, herniated discs, chronic back pain, presents with severe LUQ pain radiating to the back at 4 am 02/21. He had a fall 1 month ago at another hospital and developed LUQ discomfort. PT had gone to [facility] for evaluation of dizziness and LUQ pain, which had improved over the past few days until 02/21 where he was admitted to ICU for critical care monitoring. Plan: Neuro: Neurocheck q4 Alprazolam 1 mg PO TID PRN Cyclobenzaprine 10 mg PO HS JEIMY Digoxin .125 mg PO daily JEIMY Diltiazem 30 mg PO QID JEIMY Prozac 30 mg PO daily Gabapentin 300 mg PO BID Dilaudid 1 mg IVP Q4H PRN Motrin 800 mg PO TID Oxycodone/Acetaminophen 5/325 mg tab 2 tab PO Q6H PRN Moderate pain Cardio: 02/21 EKG 21:14: 02/21 EKG 08:48: Home med Carvedilol 12.5 mg PO BID HELD due to hx of cocaine use Diltiazem 30 mg PO QID JEIMY Nitroglycerin 0.4 mg SL Q5M PRN Rosuvastatin 5 mg PO HS JEIMY Pulmonary: 02/21 CXR: No infiltrate. mild cardiomegaly Ventolin 90 mcg/actuation 8 g 1 puff INH RBID PRN wheezing Montelukast 10 mg PO HS JEIMY Endo: Maintain euglycemia GI: Diet: regular Daily CMP : 2820/575 = 2245cc Monitor I/Os Iniguez Inserted Maintain Iniguez care Senna/Docusate 50 mg - 8.6 mg, 1 tab PO BID JEIMY Nephro: BUN/Cr: 38/1.6 Monitor I/Os Daily CMP Heme: H&H: 10.6/33.5 (12.3/37.9 >10.6/33.5) Check 2pm CBC INR: 2.0 Coumadin reversed with one Vitamin K and two FFP - 02/21 Daily CBC Imagin/26 CT Abdomen/Pelvis: heterogenous spleen with fluid adjacent to spleen in left pericolic gutter an infiltration of perisplenic fat. Irregular contour of spleen. likely splenic laceration and splenic hematoma. no gross splenic rupture. hepatosplenomegaly 02/21 CT Abdomen/Pelvis: findings concerning for splenic hematoma with possible small laceration and high attenuation fluid/blood adjacent to spleen in left pericolic gutter. no gross splenic rupture. ID: [id number] Blood venous Culture: Gram positive cocci in clusters WBC: 26.1 MRSA positive Nares Zosyn 3.375 gm IV Premix 50 cc @ 100 cc/hr IVPB Q6H JEIMY Psych Consider Psych eval UDS- Positive for Opiates, PCP, Cocaine Hx of polysubstance use- pain seeking meds Combative behavior Prophylaxis: DVT: contraindicated d/t splenic laceration GI: Pepcid 20 mg PO daily Nicotine 1 patch TD daily JEIMY Disp: Consider transfer to med surg floor pending stable CBC <Charlee Moses - Last Filed: 02/23/17 19:12> CCU Objective - Vital Signs / Intake & Output Vital Signs (Last 4 hours): Vital Signs Temp Pulse Resp BP Pulse Ox 02/23/17 18:00 70 29 H 02/23/17 17:36 72 24 02/23/17 17:00 75 13 02/23/17 16:00 99.9 F H 88 23 89 L 02/23/17 15:52 120/39 L 02/23/17 15:51 84 30 H 88 L 02/23/17 15:50 82 36 H 96/59 L 89 L 02/23/17 15:44 90 18 62/46 L 86 L 02/23/17 15:39 81 96 Intake and Output (Last 8hrs): Intake & Output 02/23/17 02/23/17 02/23/17 06:59 14:59 22:59 Intake Total 530 650 300 Output Total 275 300 Balance 255 350 300 Intake: Intake, IV Amount 50 Right Antecubital 50 Oral 480 650 300 Output: Urine 275 300 Urine, Voided 275 300 Other: # Voids Urine, Voided 1 - Medications Active Medications: Active Medications Generic Name Dose Route Start Last Admin Trade Name Freq PRN Reason Stop Dose Admin Albuterol 1 puff 02/21/17 16:18 Ventolin Hfa 90 Mcg/Actuation (8 G) INH RBID PRN Wheezing Alprazolam 1 mg 02/21/17 16:09 02/23/17 14:45 Xanax PO 1 mg TID PRN Administration .anxiety Carvedilol 12.5 mg 02/21/17 18:00 02/22/17 17:44 Coreg PO Not Given BID JEIMY Cyclobenzaprine HCl 10 mg 02/21/17 22:00 02/22/17 23:18 Flexeril PO 10 mg HS JEIMY Administration Digoxin 0.125 mg 02/22/17 10:00 02/23/17 10:38 Lanoxin PO 0.125 mg DAILY JEIMY Administration Diltiazem HCl 30 mg 02/21/17 18:00 02/23/17 18:25 Cardizem PO 30 mg QID JEIMY Administration Famotidine 20 mg 02/22/17 10:00 02/23/17 12:07 Pepcid PO 20 mg DAILY JEIMY Administration Fluoxetine HCl 30 mg 02/22/17 10:00 02/23/17 10:38 Prozac PO 30 mg DAILY JEIMY Administration Gabapentin 300 mg 02/21/17 18:00 02/23/17 18:27 Neurontin PO 300 mg BID JEIMY Administration Hydromorphone HCl 1 mg 02/21/17 17:12 02/23/17 14:44 Dilaudid IVP 1 mg Q4H PRN Administration Pain, moderate (4-7) Piperacillin Sod/Tazobactam Sod 50 mls @ 100 mls/hr 02/22/17 11:00 02/23/17 18: 24 Zosyn 3.375 Gm Iv Premix IVPB 100 mls/hr Q6H JEIMY Administration Ibuprofen 800 mg 02/21/17 16:09 Motrin Tab PO TID PRN Pain, moderate (4-7) Montelukast Sodium 10 mg 02/21/17 22:00 02/22/17 23:18 Singulair PO 10 mg HS JEIMY Administration Nicotine 1 patch 02/21/17 16:15 02/23/17 10:37 Nicoderm Cq TD 1 patch DAILY JEIMY Administration Nitroglycerin 0.4 mg 02/21/17 16:45 Nitrostat Sl Tab SL Q5M PRN CHEST PAIN Oxycodone/Acetaminophen 2 tab 02/21/17 18:00 Percocet 5/325 Mg Tab PO 02/24/17 18:01 Q6H PRN Pain, moderate (4-7) Rosuvastatin Calcium 5 mg 02/21/17 22:00 02/22/17 23:18 Crestor PO 5 mg HS JEIMY Administration Senna/Docusate Sodium 1 tab 02/21/17 18:00 02/23/17 18:25 Senokot S 50 Mg-8.6 Mg PO 1 tab BID JEIMY Administration - Patient Studies Lab Studies: Microbiology Studies 02/22/17 09:56 Blood Culture - Preliminary Blood-Venous NO GROWTH AFTER 24 HOURS 02/22/17 09:56 S.aureus & Coag-Neg Staph PNA FISH - Final Blood-Venous Gram Stain - Final 02/21/17 16:30 MRSA Culture (Admit) - Final Nose MRSA DETECTED Lab Studies 02/23/17 02/23/17 02/23/17 Range/Units 15:03 06:34 06:33 WBC 24.9 H 26.1 H (4.8-10.8) K/uL RBC 4.23 L 3.94 L (4.40-5.90) Mil/uL Hgb 11.2 L 10.6 L (12.0-18.0) g/dL Hct 35.7 33.5 L (35.0-51.0) % MCV 84.6 85.0 (80.0-94.0) fL MCH 26.4 L 27.0 (27.0-31.0) pg MCHC 31.3 L 31.7 L (33.0-37.0) g/dL RDW 15.5 H 15.4 H (11.5-14.5) % Plt Count 282 257 (130-400) K/uL MPV 8.1 8.3 (7.2-11.7) fL Neut % (Auto) 85.0 H 86.3 H (50.0-75.0) % Lymph % (Auto) 4.5 L 5.0 L (20.0-40.0) % [place] % (Auto) 9.0 7.2 (0.0-10.0) % Eos % (Auto) 1.4 1.2 (0.0-4.0) % Baso % (Auto) 0.1 0.3 (0.0-2.0) % Neut # 21.1 H 22.5 H (1.8-7.0) K/uL Lymph # 1.1 1.3 (1.0-4.3) K/uL [place] # 2.2 H 1.9 H (0.0-0.8) K/uL Eos # 0.3 0.3 (0.0-0.7) K/uL Baso # 0.0 0.1 (0.0-0.2) K/uL Neutrophils % (Manual) 84 H 84 H (50-75) % Band Neutrophils % 2 (0-2) % Lymphocytes % (Manual) 5 L 4 L (20-40) % Monocytes % (Manual) 8 8 (0-10) % Eosinophils % (Manual) 3 2 (0-4) % Platelet Estimate Normal Normal (NORMAL) Polychromasia Slight Hypochromasia (manual) Slight Slight Poikilocytosis (manual Slight Anisocytosis (manual) Slight Slight Tear Drop Cells Slight Sodium 135 (132-148) mmol/L Potassium 3.7 (3.6-5.2) mmol/L Chloride 93 L (98-107) mmol/L Carbon Dioxide 27 (22-30) mmol/L Anion Gap 19 (10-20) BUN 38 H (9-20) mg/dL Creatinine 1.6 H (0.8-1.5) MG/DL Est GFR ( Amer) 56 Est GFR (Non-Af Amer) 46 Random Glucose 106 (75-110) mg/dL Calcium 7.8 L (8.6-10.4) mg/dl Phosphorus 3.0 (2.5-4.5) mg/dL Magnesium 1.9 (1.6-2.3) mg/dL Total Bilirubin 1.0 (0.2-1.3) mg/dL AST 32 (17-59) U/L ALT 28 (21-72) U/L Alkaline Phosphatase 54 (38-126) U/L Total Protein 7.2 (6.3-8.3) g/dL Albumin 3.2 L (3.5-5.0) g/dL Globulin 4.0 H (2.2-3.9) gm/dL Albumin/Globulin Ratio 0.8 L (1.0-2.1) Laboratory Results - last 24 hr 02/23/17 02/23/17 02/23/17 06:33 06:34 15:03 WBC 26.1 H 24.9 H RBC 3.94 L 4.23 L Hgb 10.6 L 11.2 L Hct 33.5 L 35.7 MCV 85.0 84.6 MCH 27.0 26.4 L MCHC 31.7 L 31.3 L RDW 15.4 H 15.5 H Plt Count 257 282 MPV 8.3 8.1 Neut % (Auto) 86.3 H 85.0 H Lymph % (Auto) 5.0 L 4.5 L [place] % (Auto) 7.2 9.0 Eos % (Auto) 1.2 1.4 Baso % (Auto) 0.3 0.1 Neut # 22.5 H 21.1 H Lymph # 1.3 1.1 [place] # 1.9 H 2.2 H Eos # 0.3 0.3 Baso # 0.1 0.0 Neutrophils % (Manual) 84 H 84 H Band Neutrophils % 2 Lymphocytes % (Manual) 4 L 5 L Monocytes % (Manual) 8 8 Eosinophils % (Manual) 2 3 Platelet Estimate Normal Normal Polychromasia Slight Hypochromasia (manual) Slight Slight Poikilocytosis (manual Slight Anisocytosis (manual) Slight Slight Tear Drop Cells Slight Sodium 135 Potassium 3.7 Chloride 93 L Carbon Dioxide 27 Anion Gap 19 BUN 38 H Creatinine 1.6 H Est GFR ( Amer) 56 Est GFR (Non-Af Amer) 46 Random Glucose 106 Calcium 7.8 L Phosphorus 3.0 Magnesium 1.9 Total Bilirubin 1.0 AST 32 ALT 28 Alkaline Phosphatase 54 Total Protein 7.2 Albumin 3.2 L Globulin 4.0 H Albumin/Globulin Ratio 0.8 L EKG/Cardiology Studies: Cardiology / EKG Studies 02/23/17 11:43 EKG [ELECTROCARDIOGRAM] Routine Comment: Mode Of Transportation: Reason For Exam: chest pain with inspiration; cardiac hx noted Critical Care Progress Note - Nutrition Nutrition: Nutrition Category Date Time Status Regular Diet [DIET] Diets 02/21/17 Dinner Active Attending/Attestation - Attestation I have personally seen and examined this patient.: Yes I have fully participated in the care of the patient.: Yes I have reviewed all pertinent clinical information: Yes Notes (Text): 02/23/17 19:12 Patient is hemodynamically stable. His hemoglobin is stable, complaining of a lot of pain. Otherwise nonspecific. He will be discharged to the telemetry.
[2017-02-23 08:16] LABS: EOSINOPHIL 2 % (0-4); NEUTROPHIL 84 % (50-75); TOTAL CELLS COUNTED 100
[2017-02-23] MEDS: Digoxin 125 mcg (0.125 mg) Tab PO SCH (10:38)
[2017-02-23] MEDS: Docusate-Senna 50 mg-8.6 mg Tab PO SCH ×2 (10:38→18:25)
[2017-02-23] MEDS: HYDROmorphone 1 mg/ml ISec IVP PRN (14:44)
[2017-02-23 15:06] LABS: BASO % 0.1 % (0.0-2.0); EOS # 0.3 K/uL (0.0-0.7); EOS % 1.4 % (0.0-4.0); HEMATOCRIT 35.7 % (35.0-51.0); LYMPH # 1.1 K/uL (1.0-4.3); LYMPH % 4.5 % (20.0-40.0); MEAN CELL VOLUME 84.6 fL (80.0-94.0); MEAN CORPUSCULAR HEMOGLOBIN 26.4 pg (27.0-31.0); MEAN CORPUSCULAR HGB CONC 31.3 g/dL (33.0-37.0); MEAN PLATELET VOLUME 8.1 fL (7.2-11.7); MONO # 2.2 K/uL (0.0-0.8); PLATELET COUNT 282 K/uL (130-400); RED CELL DISTRIBUTION WIDTH 15.5 % (11.5-14.5); WHITE BLOOD COUNT 24.9 K/uL (4.8-10.8)
--- NOTE | 2017-02-23 15:07 | CP.PCM.PN ---
Subjective - Date & Time of Evaluation Date of Evaluation: 02/23/17 Time of Evaluation: 15:04 - Subjective Subjective: Surgery: Dr. Senior Patient complains of pain mainly in the middle abdomen and lower abdomen. He states the pain is worse with movement. He denies n/v/f/c. Tolerating diet Objective - Vital Signs/Intake and Output Vital Signs (last 24 hours): Temp Pulse Resp BP Pulse Ox 98.6 F 84 25 H 93/57 L 94 L 02/22/17 23:40 02/23/17 13:00 02/23/17 13:00 02/23/17 11:57 02/23/17 13:00 Intake and Output: 02/23/17 02/23/17 06:59 18:59 Intake Total 1120 350 Output Total 275 200 Balance 845 150 - Medications Medications: Current Medications Albuterol (Ventolin Hfa 90 Mcg/Actuation (8 G)) 1 puff INH RBID PRN PRN Reason: Wheezing Alprazolam (Xanax) 1 mg PO TID PRN PRN Reason: .anxiety Last Admin: 02/23/17 14:45 Dose: 1 mg Carvedilol (Coreg) 12.5 mg PO BID [facility] Last Admin: 02/22/17 17:44 Dose: Not Given Cyclobenzaprine HCl (Flexeril) 10 mg PO HS [facility] Last Admin: 02/22/17 23:18 Dose: 10 mg Digoxin (Lanoxin) 0.125 mg PO DAILY [facility] Last Admin: 02/23/17 10:38 Dose: 0.125 mg Diltiazem HCl (Cardizem) 30 mg PO QID [facility] Last Admin: 02/23/17 10:43 Dose: 30 mg Famotidine (Pepcid) 20 mg PO DAILY [facility] Last Admin: 02/23/17 12:07 Dose: 20 mg Fluoxetine HCl (Prozac) 30 mg PO DAILY [facility] Last Admin: 02/23/17 10:38 Dose: 30 mg Gabapentin (Neurontin) 300 mg PO BID [facility] Last Admin: 02/23/17 10:40 Dose: 300 mg Hydromorphone HCl (Dilaudid) 1 mg IVP Q4H PRN PRN Reason: Pain, moderate (4-7) Last Admin: 02/23/17 14:44 Dose: 1 mg Piperacillin Sod/Tazobactam Sod (Zosyn 3.375 Gm Iv Premix) 50 mls @ 100 mls/hr IVPB Q6H [facility] Last Admin: 02/23/17 12:06 Dose: 100 mls/hr Ibuprofen (Motrin Tab) 800 mg PO TID PRN PRN Reason: Pain, moderate (4-7) Montelukast Sodium (Singulair) 10 mg PO [facility] Last Admin: 02/22/17 23:18 Dose: 10 mg Nicotine (Nicoderm Cq) 1 patch TD DAILY [facility] Last Admin: 02/23/17 10:37 Dose: 1 patch Nitroglycerin (Nitrostat Sl Tab) 0.4 mg SL Q5M PRN PRN Reason: CHEST PAIN Oxycodone/Acetaminophen (Percocet 5/325 Mg Tab) 2 tab PO Q6H PRN PRN Reason: Pain, moderate (4-7) Stop: 02/24/17 18:01 Rosuvastatin Calcium (Crestor) 5 mg PO [facility] Last Admin: 02/22/17 23:18 Dose: 5 mg Senna/Docusate Sodium (Senokot S 50 Mg-8.6 Mg) 1 tab PO BID [facility] Last Admin: 02/23/17 10:38 Dose: 1 tab - Labs Labs: 02/23/17 06:34 02/23/17 06:33 PT 22.5 SECONDS (9.7-12.2) H 02/22/17 06:18 INR 2.0 02/22/17 06:18 APTT 37 SECONDS (21-34) H D 02/22/17 06:18 - Constitutional Appears: Non-toxic, No Acute Distress - Head Exam Head Exam: ATRAUMATIC, NORMOCEPHALIC - Eye Exam Eye Exam: EOMI, Normal appearance - ENT Exam ENT Exam: Mucous Membranes Moist - Respiratory Exam Respiratory Exam: NORMAL BREATHING PATTERN. absent: Respiratory Distress - Cardiovascular Exam Cardiovascular Exam: REGULAR RHYTHM. absent: Tachycardia - GI/Abdominal Exam GI & Abdominal Exam: Soft, Tenderness (mild in epigastric and lower mid abdomen) . absent: Guarding, Rigid, Rebound Additional comments: obese - Extremities Exam Extremities Exam: Normal Inspection. absent: Calf Tenderness - Neurological Exam Neurological Exam: Alert, Awake - Skin Skin Exam: Dry, Intact, Normal Color, Warm Assessment and Plan - Assessment and Plan (Free Text) Assessment: 46 y/o male w/ subacute splenic hematoma, appears stable Plan: -cont to monitor hgb -no surgical intervention at this time -pain control -medical management per primary -further recs per Dr. Parrish Ware PGY1
[2017-02-23 15:44] LABS: EOSINOPHIL 3 % (0-4); NEUTROPHIL 84 % (50-75); TOTAL CELLS COUNTED 100
[2017-02-24] MEDS: Oxycodone/Acetaminophen 5/325 mg Tab PO PRN ×2 (01:27→17:30)
[2017-02-24] MEDS: HYDROmorphone 1 mg/ml ISec IVP PRN ×3 (01:39→21:21)
[2017-02-24] MEDS: Piperacill/Tazo 3.375gm in Dex 50 ML IVPB SCH ×4 (05:00→23:03)
[2017-02-24 06:41] LABS: RBC URINE 1 /hpf (0-3); URINE BILIRUBIN NEGATIVE (NEGATIVE); URINE BLOOD NEGATIVE (NEGATIVE); URINE COLOR Amber (YELLOW); URINE GLUCOSE (UA) NORMAL (Normal); URINE KETONE NEGATIVE (NEGATIVE); URINE LEUKOCYTE ESTERASE NEG Leu/uL (Negative); URINE PROTEIN 1+ mg/dL (NEGATIVE); WBC URINE 4 /hpf (0-5)
[2017-02-24 06:56] LABS: CHLORIDE 91 mmol/L (98-107); POTASSIUM 4.1 mmol/L (3.6-5.2); SODIUM 131 mmol/L (132-148)
[2017-02-24 06:58] LABS: ALB/GLOB RATIO 0.9 (1.0-2.1); ALKALINE PHOSPHATASE 78 U/L (38-126); AST/SGOT 26 U/L (17-59); CARBON DIOXIDE 24 mmol/L (22-30); GFR AFRICAN-AMERICAN > 60; TOTAL PROTEIN 7.3 g/dL (6.3-8.3)
[2017-02-24 06:59] LABS: ALT/SGPT 22 U/L (21-72); BLOOD UREA NITROGEN 41 mg/dL (9-20); CALCIUM 8.1 mg/dl (8.6-10.4); GLUCOSE,RANDOM 161 mg/dL (75-110); MAGNESIUM 2.2 mg/dL (1.6-2.3); PHOSPHOROUS 2.9 mg/dL (2.5-4.5)
--- NOTE | 2017-02-24 07:52 | CP.PCM.PN ---
Subjective - Date & Time of Evaluation Date of Evaluation: 02/24/17 Time of Evaluation: 07:49 - Subjective Subjective: Surgery: Dr. Senior Patient complains of abdominal pain that is diffuse and mild. Somewhat improved from yesterday. Patient denies n/v/f/c. He reports being able to lay flat now. He is tolerating diet. Objective - Vital Signs/Intake and Output Vital Signs (last 24 hours): Temp Pulse Resp BP Pulse Ox 99.3 F 106 H 23 132/69 98 02/24/17 04:00 02/24/17 04:00 02/24/17 04:00 02/24/17 04:00 02/23/17 20:00 Intake and Output: 02/24/17 02/24/17 06:59 18:59 Intake Total 690 0 Output Total 1100 Balance -410 0 - Medications Medications: Current Medications Albuterol (Ventolin Hfa 90 Mcg/Actuation (8 G)) 1 puff INH RBID PRN PRN Reason: Wheezing Alprazolam (Xanax) 1 mg PO TID PRN PRN Reason: .anxiety Last Admin: 02/24/17 01:27 Dose: 1 mg Carvedilol (Coreg) 12.5 mg PO BID [facility] Last Admin: 02/22/17 17:44 Dose: Not Given Cyclobenzaprine HCl (Flexeril) 10 mg PO HS [facility] Last Admin: 02/23/17 21:30 Dose: 10 mg Digoxin (Lanoxin) 0.125 mg PO DAILY [facility] Last Admin: 02/23/17 10:38 Dose: 0.125 mg Diltiazem HCl (Cardizem) 30 mg PO QID [facility] Last Admin: 02/23/17 21:30 Dose: 30 mg Famotidine (Pepcid) 20 mg PO DAILY [facility] Last Admin: 02/23/17 12:07 Dose: 20 mg Fluoxetine HCl (Prozac) 30 mg PO DAILY [facility] Last Admin: 02/23/17 10:38 Dose: 30 mg Gabapentin (Neurontin) 300 mg PO BID [facility] Last Admin: 02/23/17 18:27 Dose: 300 mg Hydromorphone HCl (Dilaudid) 1 mg IVP Q4H PRN PRN Reason: Pain, moderate (4-7) Last Admin: 02/24/17 06:12 Dose: 1 mg Piperacillin Sod/Tazobactam Sod (Zosyn 3.375 Gm Iv Premix) 50 mls @ 100 mls/hr IVPB Q6H [facility] Last Admin: 02/24/17 05:00 Dose: 100 mls/hr Ibuprofen (Motrin Tab) 800 mg PO TID PRN PRN Reason: Pain, moderate (4-7) Montelukast Sodium (Singulair) 10 mg PO [facility] Last Admin: 02/23/17 21:31 Dose: 10 mg Nicotine (Nicoderm Cq) 1 patch TD DAILY [facility] Last Admin: 02/23/17 10:37 Dose: 1 patch Nitroglycerin (Nitrostat Sl Tab) 0.4 mg SL Q5M PRN PRN Reason: CHEST PAIN Oxycodone/Acetaminophen (Percocet 5/325 Mg Tab) 2 tab PO Q6H PRN PRN Reason: Pain, moderate (4-7) Stop: 02/24/17 18:01 Last Admin: 02/24/17 01:27 Dose: 2 tab Rosuvastatin Calcium (Crestor) 5 mg PO [facility] Last Admin: 02/23/17 21:30 Dose: 5 mg Senna/Docusate Sodium (Senokot S 50 Mg-8.6 Mg) 1 tab PO BID [facility] Last Admin: 02/23/17 18:25 Dose: 1 tab - Labs Labs: 02/23/17 15:03 02/24/17 06:44 PT 22.5 SECONDS (9.7-12.2) H 02/22/17 06:18 INR 2.0 02/22/17 06:18 APTT 37 SECONDS (21-34) H D 02/22/17 06:18 - Constitutional Appears: Non-toxic, No Acute Distress - Head Exam Head Exam: ATRAUMATIC, NORMOCEPHALIC - Eye Exam Eye Exam: EOMI, Normal appearance - ENT Exam ENT Exam: Mucous Membranes Moist - Respiratory Exam Respiratory Exam: NORMAL BREATHING PATTERN. absent: Respiratory Distress - Cardiovascular Exam Cardiovascular Exam: REGULAR RHYTHM. absent: Tachycardia - GI/Abdominal Exam GI & Abdominal Exam: Distended, Tenderness (diffuse, mild). absent: Guarding, Rigid, Rebound Additional comments: obese - Extremities Exam Extremities Exam: Normal Inspection. absent: Calf Tenderness - Neurological Exam Neurological Exam: Alert, Awake - Psychiatric Exam Psychiatric exam: Normal Affect, Normal Mood - Skin Skin Exam: Dry, Warm Assessment and Plan - Assessment and Plan (Free Text) Assessment: 46 y/o male w/ subacute splenic hematoma Plan: -stable -HGB improved today -no surgical intervention at this time -further recs per Dr. Parrish Ware PGY1
[2017-02-24 08:21] LABS: HEMATOCRIT 34.2 % (35.0-51.0); MEAN CELL VOLUME 84.3 fL (80.0-94.0); MEAN CORPUSCULAR HEMOGLOBIN 27.2 pg (27.0-31.0); MEAN CORPUSCULAR HGB CONC 32.2 g/dL (33.0-37.0); MEAN PLATELET VOLUME 8.2 fL (7.2-11.7); RED CELL DISTRIBUTION WIDTH 15.4 % (11.5-14.5); WHITE BLOOD COUNT 23.4 K/uL (4.8-10.8)
[2017-02-24] MEDS: Docusate-Senna 50 mg-8.6 mg Tab PO SCH ×2 (09:24→17:11)
--- NOTE | 2017-02-24 14:55 | CP.PCM.PN ---
<Dewey Tse - Last Filed: 02/24/17 14:52> Subjective - Date & Time of Evaluation Date of Evaluation: 02/24/17 Time of Evaluation: 14:52 - Subjective Subjective: PGY-[address] Ocampo's service Pt seen and examined at bedside. Pt seen sitting up in his chair. He states he feels slightly sob and has diffuse abdominal pain. He also admits to being constipated with his last BM being 5 days ago. Pt reports reproducible chest wall pain that is worse with breathing, located over the lateral side. Denies any fevers, chills, nausea or vomiting. Tolerating diet. Objective - Vital Signs/Intake and Output Vital Signs (last 24 hours): Temp Pulse Resp BP Pulse Ox 98 F 108 H 23 150/66 97 02/24/17 14:00 02/24/17 08:00 02/24/17 04:00 02/24/17 12:14 02/24/17 08:00 Intake and Output: 02/24/17 02/24/17 06:59 18:59 Intake Total 690 290 Output Total 1100 Balance -410 290 - Medications Medications: Current Medications Albuterol (Ventolin Hfa 90 Mcg/Actuation (8 G)) 1 puff INH RBID PRN PRN Reason: Wheezing Alprazolam (Xanax) 1 mg PO TID PRN PRN Reason: .anxiety Last Admin: 02/24/17 09:35 Dose: 1 mg Carvedilol (Coreg) 12.5 mg PO BID [facility] Last Admin: 02/24/17 12:14 Dose: 12.5 mg Cyclobenzaprine HCl (Flexeril) 10 mg PO HS [facility] Last Admin: 02/23/17 21:30 Dose: 10 mg Digoxin (Lanoxin) 0.125 mg PO 1800 [facility] Diltiazem HCl (Cardizem) 30 mg PO QID [facility] Last Admin: 02/24/17 09:23 Dose: 30 mg Famotidine (Pepcid) 20 mg PO DAILY [facility] Last Admin: 02/24/17 09:23 Dose: 20 mg Fluoxetine HCl (Prozac) 30 mg PO DAILY [facility] Last Admin: 02/24/17 09:24 Dose: 30 mg Gabapentin (Neurontin) 300 mg PO BID [facility] Last Admin: 02/24/17 09:23 Dose: 300 mg Hydromorphone HCl (Dilaudid) 1 mg IVP Q4H PRN PRN Reason: Pain, moderate (4-7) Last Admin: 02/24/17 06:12 Dose: 1 mg Hydromorphone HCl (Dilaudid) 2 mg IVP Q8H PRN PRN Reason: Pain, severe (8-10) Piperacillin Sod/Tazobactam Sod (Zosyn 3.375 Gm Iv Premix) 50 mls @ 100 mls/hr IVPB Q6H [facility] Last Admin: 02/24/17 12:14 Dose: 100 mls/hr Ibuprofen (Motrin Tab) 800 mg PO TID PRN PRN Reason: Pain, moderate (4-7) Montelukast Sodium (Singulair) 10 mg PO [facility] Last Admin: 02/23/17 21:31 Dose: 10 mg Nicotine (Nicoderm Cq) 1 patch TD DAILY [facility] Last Admin: 02/24/17 09:24 Dose: 1 patch Nitroglycerin (Nitrostat Sl Tab) 0.4 mg SL Q5M PRN PRN Reason: CHEST PAIN Oxycodone/Acetaminophen (Percocet 5/325 Mg Tab) 2 tab PO Q6H PRN PRN Reason: Pain, moderate (4-7) Stop: 02/24/17 18:01 Last Admin: 02/24/17 01:27 Dose: 2 tab Rosuvastatin Calcium (Crestor) 5 mg PO [facility] Last Admin: 02/23/17 21:30 Dose: 5 mg Senna/Docusate Sodium (Senokot S 50 Mg-8.6 Mg) 1 tab PO BID [facility] Last Admin: 02/24/17 09:24 Dose: 1 tab - Labs Labs: 02/24/17 08:17 02/24/17 06:44 PT 22.5 SECONDS (9.7-12.2) H 02/22/17 06:18 INR 2.0 02/22/17 06:18 APTT 37 SECONDS (21-34) H D 02/22/17 06:18 - Constitutional Appears: Non-toxic, In Acute Distress - Head Exam Head Exam: ATRAUMATIC, NORMOCEPHALIC - ENT Exam ENT Exam: Mucous Membranes Moist - Respiratory Exam Respiratory Exam: Clear to Ausculation Bilateral, NORMAL BREATHING PATTERN. absent: Rales, Wheezes - Cardiovascular Exam Cardiovascular Exam: +S1, +S2 - GI/Abdominal Exam GI & Abdominal Exam: Distended, Soft, Tenderness, Normal Bowel Sounds - Neurological Exam Neurological Exam: Alert, Awake - Skin Skin Exam: Dry, Warm Assessment and Plan - Assessment and Plan (Free Text) Assessment: Splenic hematoma - Stable - Surgery following ([facility]) - help appreciated - No surgical intervention at this time. - Hgb stable, continue to monitor and transfuse if necessary - Still with diffuse abdominal pain - Patient was on Coumadin for A. fib and aspirin for CAD. Reversed Coumadin with vitamin K and 1 unit of FFP. Reversed aspirin with DDAVP and 1 unit of platelets. Abdominal pain - secondary to splenic hematoma - as above Leukosytosis - Blood cx 02/22 - positive for staph A x1 - may be contaminate - Tmax of 100.8 overnight, currently afebrile - Zosyn started 02/22 - ID consulted (Yas) - help appreciated - f/u recs A fib - Holding anticoagulation secondary to splenic hematoma - Digoxin (Lanoxin) 0.125 mg PO DAILY [facility] - Carvedilol 12.5 mg PO BID - Rate controlled Hx of HTN - Carvedilol 12.5 mg PO BID - Diltiazem 30 mg PO QID [facility] - Nitroglycerin 0.4 mg SL Q5M PRN Hx of CAD - Rosuvastatin Calcium (Crestor) 5 mg PO HS [facility] Hx of COPD - Albuterol (Ventolin Hfa 90 Mcg/Actuation (8 G)) 1 puff INH RBID PRN - Montelukast Sodium (Singulair) 10 mg PO HS [facility] Constipation - Senna/Docusate Sodium (Senokot S 50 Mg-8.6 Mg) 1 tab PO BID [facility] Hx of bipolar/depression - Alprazolam (Xanax) 1 mg PO TID PRN Fluoxetine HCl (Prozac) 30 mg PO DAILY [facility] PPx - Pepcid - VTE pharmacotherapy ppx contraindicated with splenic hematoma <Roque Ocampo Jr. - Last Filed: 02/25/17 16:27> Objective - Vital Signs/Intake and Output Vital Signs (last 24 hours): Temp Pulse Resp BP Pulse Ox 98 F 70 84 H 149/70 98 02/25/17 14:25 02/25/17 08:00 02/25/17 14:25 02/25/17 10:24 02/25/17 14:25 Intake and Output: 02/25/17 02/25/17 06:59 18:59 Intake Total 530 450 Output Total 700 Balance -170 450 - Medications Medications: Current Medications Albuterol (Ventolin Hfa 90 Mcg/Actuation (8 G)) 1 puff INH RBID PRN PRN Reason: Wheezing Alprazolam (Xanax) 1 mg PO TID PRN PRN Reason: .anxiety Last Admin: 02/25/17 10:21 Dose: 1 mg Carvedilol (Coreg) 12.5 mg PO BID [facility] Last Admin: 02/25/17 10:24 Dose: 12.5 mg Cyclobenzaprine HCl (Flexeril) 10 mg PO HS [facility] Last Admin: 02/24/17 21:14 Dose: 10 mg Digoxin (Lanoxin) 0.125 mg PO 1800 [facility] Last Admin: 02/24/17 17:11 Dose: 0.125 mg Diltiazem HCl (Cardizem) 30 mg PO QID [facility] Last Admin: 02/25/17 14:24 Dose: 30 mg Famotidine (Pepcid) 20 mg PO DAILY [facility] Last Admin: 02/25/17 10:21 Dose: 20 mg Fluoxetine HCl (Prozac) 30 mg PO DAILY [facility] Last Admin: 02/25/17 10:54 Dose: 30 mg Gabapentin (Neurontin) 300 mg PO BID [facility] Last Admin: 02/25/17 10:21 Dose: 300 mg Hydromorphone HCl (Dilaudid) 1 mg IVP Q4H PRN PRN Reason: Pain, moderate (4-7) Last Admin: 02/25/17 10:21 Dose: 1 mg Hydromorphone HCl (Dilaudid) 2 mg IVP Q8H PRN PRN Reason: Pain, severe (8-10) Piperacillin Sod/Tazobactam Sod (Zosyn 3.375 Gm Iv Premix) 50 mls @ 100 mls/hr IVPB Q6H [facility] Last Admin: 02/25/17 10:54 Dose: 100 mls/hr Ibuprofen (Motrin Tab) 800 mg PO TID PRN PRN Reason: Pain, moderate (4-7) Methylprednisolone (Solu-Medrol) 40 mg IVP Q12H [facility] Montelukast Sodium (Singulair) 10 mg PO HS [facility] Last Admin: 02/24/17 21:14 Dose: 10 mg Nicotine (Nicoderm Cq) 1 patch TD DAILY [facility] Last Admin: 02/25/17 10:53 Dose: 1 patch Nitroglycerin (Nitrostat Sl Tab) 0.4 mg SL Q5M PRN PRN Reason: CHEST PAIN Oxycodone/Acetaminophen (Percocet 5/325 Mg Tab) 2 tab PO Q6H PRN PRN Reason: Pain, moderate (4-7) Stop: 02/27/17 23:59 Last Admin: 02/25/17 00:18 Dose: 2 tab Rosuvastatin Calcium (Crestor) 5 mg PO [facility] Last Admin: 02/24/17 21:14 Dose: 5 mg Senna/Docusate Sodium (Senokot S 50 Mg-8.6 Mg) 1 tab PO BID [facility] Last Admin: 02/25/17 10:54 Dose: 1 tab - Labs Labs: 02/24/17 08:17 02/24/17 06:44 PT 22.5 SECONDS (9.7-12.2) H 02/22/17 06:18 INR 2.0 02/22/17 06:18 APTT 37 SECONDS (21-34) H D 02/22/17 06:18 Attending/Attestation - Attestation I have personally seen and examined this patient.: Yes I have fully participated in the care of the patient.: Yes I have reviewed all pertinent clinical information, including history, physical exam and plan: Yes Notes (Text): 02/25/17 16:27 Patient seen and examined with resident. Reviewed resident notes and findings. Agree with resident note findings and plan of care as discussed
[2017-02-24] MEDS: Digoxin 125 mcg (0.125 mg) Tab PO SCH (17:11)
[2017-02-25] MEDS: Oxycodone/Acetaminophen 5/325 mg Tab PO PRN (00:18)
[2017-02-25] MEDS: Piperacill/Tazo 3.375gm in Dex 50 ML IVPB SCH ×4 (05:16→22:07)
[2017-02-25] MEDS: HYDROmorphone 1 mg/ml ISec IVP PRN ×2 (10:21→20:21)
--- NOTE | 2017-02-25 10:51 | CARD ---
APPROVED REPORT EKG Measurement Heart [id number] <Conclusion> Atrial fibrillation with rapid ventricular response Left axis deviation Nonspecific intraventricular block Possible Inferior infarct, age undetermined T wave abnormality, consider lateral ischemia Abnormal ECG
[2017-02-25] MEDS: Docusate-Senna 50 mg-8.6 mg Tab PO SCH ×2 (10:54→17:29)
--- NOTE | 2017-02-25 13:15 | CP.PCM.PN ---
Subjective - Date & Time of Evaluation Date of Evaluation: 02/25/17 Time of Evaluation: 13:12 - Subjective Subjective: PGY-[address] Ocampo's service Pt seen and examined at bedside. Pt states that he feels feverish and is still sob. He also reports some diffuse abdominal pain. Denies any palpitations, chest pain, diarrhea. Objective - Vital Signs/Intake and Output Vital Signs (last 24 hours): Temp Pulse Resp BP Pulse Ox 100 F H 70 20 149/70 96 02/25/17 08:00 02/25/17 08:00 02/25/17 08:00 02/25/17 10:24 02/25/17 08:00 Intake and Output: 02/25/17 02/25/17 06:59 18:59 Intake Total 530 Output Total 700 Balance -170 - Medications Medications: Current Medications Albuterol (Ventolin Hfa 90 Mcg/Actuation (8 G)) 1 puff INH RBID PRN PRN Reason: Wheezing Alprazolam (Xanax) 1 mg PO TID PRN PRN Reason: .anxiety Last Admin: 02/25/17 10:21 Dose: 1 mg Carvedilol (Coreg) 12.5 mg PO BID [facility] Last Admin: 02/25/17 10:24 Dose: 12.5 mg Cyclobenzaprine HCl (Flexeril) 10 mg PO HS [facility] Last Admin: 02/24/17 21:14 Dose: 10 mg Digoxin (Lanoxin) 0.125 mg PO 1800 [facility] Last Admin: 02/24/17 17:11 Dose: 0.125 mg Diltiazem HCl (Cardizem) 30 mg PO QID [facility] Last Admin: 02/25/17 10:21 Dose: 30 mg Famotidine (Pepcid) 20 mg PO DAILY [facility] Last Admin: 02/25/17 10:21 Dose: 20 mg Fluoxetine HCl (Prozac) 30 mg PO DAILY [facility] Last Admin: 02/25/17 10:54 Dose: 30 mg Gabapentin (Neurontin) 300 mg PO BID [facility] Last Admin: 02/25/17 10:21 Dose: 300 mg Hydromorphone HCl (Dilaudid) 1 mg IVP Q4H PRN PRN Reason: Pain, moderate (4-7) Last Admin: 02/25/17 10:21 Dose: 1 mg Hydromorphone HCl (Dilaudid) 2 mg IVP Q8H PRN PRN Reason: Pain, severe (8-10) Piperacillin Sod/Tazobactam Sod (Zosyn 3.375 Gm Iv Premix) 50 mls @ 100 mls/hr IVPB Q6H [facility] Last Admin: 02/25/17 10:54 Dose: 100 mls/hr Ibuprofen (Motrin Tab) 800 mg PO TID PRN PRN Reason: Pain, moderate (4-7) Montelukast Sodium (Singulair) 10 mg PO [facility] Last Admin: 02/24/17 21:14 Dose: 10 mg Nicotine (Nicoderm Cq) 1 patch TD DAILY [facility] Last Admin: 02/25/17 10:53 Dose: 1 patch Nitroglycerin (Nitrostat Sl Tab) 0.4 mg SL Q5M PRN PRN Reason: CHEST PAIN Oxycodone/Acetaminophen (Percocet 5/325 Mg Tab) 2 tab PO Q6H PRN PRN Reason: Pain, moderate (4-7) Stop: 02/27/17 23:59 Last Admin: 02/25/17 00:18 Dose: 2 tab Rosuvastatin Calcium (Crestor) 5 mg PO [facility] Last Admin: 02/24/17 21:14 Dose: 5 mg Senna/Docusate Sodium (Senokot S 50 Mg-8.6 Mg) 1 tab PO BID [facility] Last Admin: 02/25/17 10:54 Dose: 1 tab - Labs Labs: 02/24/17 08:17 02/24/17 06:44 PT 22.5 SECONDS (9.7-12.2) H 02/22/17 06:18 INR 2.0 02/22/17 06:18 APTT 37 SECONDS (21-34) H D 02/22/17 06:18 - Constitutional Appears: Non-toxic, In Acute Distress - Head Exam Head Exam: ATRAUMATIC, NORMOCEPHALIC - ENT Exam ENT Exam: Mucous Membranes Moist - Respiratory Exam Respiratory Exam: Rhonchi, NORMAL BREATHING PATTERN - Cardiovascular Exam Cardiovascular Exam: +S1, +S2 - GI/Abdominal Exam GI & Abdominal Exam: Distended, Tenderness (diffuse, mild), Normal Bowel Sounds - Neurological Exam Neurological Exam: Alert, Awake - Skin Skin Exam: Dry, Warm Assessment and Plan - Assessment and Plan (Free Text) Assessment: Splenic hematoma - Stable - Surgery following ([facility]) - help appreciated - No surgical intervention at this time. - Hgb stable, continue to monitor and transfuse if necessary - Still with diffuse abdominal pain - Patient was on Coumadin for A. fib and aspirin for CAD. Reversed Coumadin with vitamin K and 1 unit of FFP. Reversed aspirin with DDAVP and 1 unit of platelets. Abdominal pain - secondary to splenic hematoma - as above Leukosytosis - Blood cx 02/22 - positive for staph A x1 - may be contaminate - Tmax of 100.0 this morning - Zosyn started 02/22 - ID consulted (Yas) - help appreciated - f/u recs A fib - Holding anticoagulation secondary to splenic hematoma - Digoxin (Lanoxin) 0.125 mg PO DAILY [facility] - Carvedilol 12.5 mg PO BID - Rate controlled Hx of HTN - Carvedilol 12.5 mg PO BID - Diltiazem 30 mg PO QID [facility] - Nitroglycerin 0.4 mg SL Q5M PRN Hx of CAD - Rosuvastatin Calcium (Crestor) 5 mg PO HS [facility] Hx of COPD - Albuterol (Ventolin Hfa 90 Mcg/Actuation (8 G)) 1 puff INH RBID PRN - Montelukast Sodium (Singulair) 10 mg PO HS [facility] Constipation - Senna/Docusate Sodium (Senokot S 50 Mg-8.6 Mg) 1 tab PO BID [facility] Hx of bipolar/depression - Alprazolam (Xanax) 1 mg PO TID PRN - Fluoxetine HCl (Prozac) 30 mg PO DAILY [facility] PPx - Pepcid - VTE pharmacotherapy ppx contraindicated with splenic hematoma
[2017-02-25] MEDS: Digoxin 125 mcg (0.125 mg) Tab PO SCH (17:27)
--- NOTE | 2017-02-25 18:21 | CP.PCM.CON ---
History of Present Illness - History of Present Illness History of Present Illness: ID CONSULTED FOR BACRTEREMIA - MRSA ++ 46yo M presenting w/ LUQ abdominal pain radiating to the back . Pt states that approx. 1 month ago he fell while at another hospital and developed some LUQ discomfort. He states he began feeling dizzy and worsening of the pain a few days ago so he went to [facility] [place] for evaluation. Pt states a CT showed "a clot in my spleen" but he was told this would resolve and nothing more needed to be done. He saw Dr. Ocampo in office and at that time the pain was better, however recently he woke up with severe LUQ pain radiating to the back. Pt describes the pain as sharp, severe, similar to pain he experienced when he had appendicitis. He had associated nausea and 1 episode vomiting, non-bloody/non- bilious. Pt also admits to constipation. He denies any Fevers/Chills, SOB/CP, Diarrhea. Pt is seen in the ED and HR noted to be in the 140s-150s, irregular A CT abd/pelvis was done which showed findings consistent w/ splenic hematoma and poss. small splenic laceration w/ high atten. fluid in pericolic gutter. PMH: HTN, CAD, CHF, Afib, COPD, ARLENE, Herniated discs L-spine, Bipolar/ Depression PSH: Appendectomy (2008), Coronary stents x4 ([id number]) Review of Systems - Review of Systems Systems not reviewed;Unavailable: Altered Mental Status - Constitutional Constitutional: As Per HPI, Frequent Falls - EENT Eyes: absent: As Per HPI, Blind Spots, Blurred Vision, Change in Vision, Decreased Night Vision, Diplopia, Discharge, Dry Eye, Exophthalmos, Floaters, Irritation, Itchy Eyes, Loss of Peripheral Vision, Pain, Photophobia, Requires Corrective Lenses, Sees Flashes, Spots in Vision, Tunnel Vision, Other Visual Disturbances, Loss of Vision, Other Ears: absent: As Per HPI, Decreased Hearing, Ear Discharge, Ear Pain, Tinnitus, Abnormal Hearing, Disequilibrium, Dizziness, Other Nose/Mouth/Throat: absent: As Per HPI, Epistaxis, Nasal Congestion, Nasal Discharge, Nasal Obstruction, Nasal Trauma, Nose Pain, Post Nasal Drip, Sinus Pain, Sinus Pressure, Bleeding Gums, Change in Voice, Dental Pain, Dry Mouth, Dysphagia, Halitosis, Hoarsness, Lip Swelling, Mouth Lesions, Mouth Pain, Odynophagia, Sore Throat, Throat Swelling, Tongue Swelling, Facial Pain, Neck Pain, Neck Mass, Other - Cardiovascular Cardiovascular: absent: As Per HPI, Acrocyanosis, Chest Pain, Chest Pain at Rest , Chest Pain with Activity, Claudication, Diaphoresis, Dyspnea, Dyspnea on Exertion, Edema, Irregular Heart Rhythm, Pain Radiating to Arm/Neck/Jaw, Leg Edema, Leg Ulcers, Lightheadedness, Orthopnea, Palpitations, Paroxysmal Nocturnal Dyspnea, Pedal Edema, Radiating Pain, Rapid Heart Rate, Slow Heart Rate, Syncope, Other - Respiratory Respiratory: absent: As Per HPI, Cough, Dyspnea, Hemoptysis, Dyspnea on Exertion , Wheezing, Snoring, Stridor, Pain on Inspiration, Chest Congestion, Excessive Mucous Production, Change in Mucous Color, Pain with Coughing, Other - Gastrointestinal Gastrointestinal: As Per HPI, Abdominal Pain - Genitourinary Genitourinary: absent: As Per HPI, Change in Urinary Stream, Difficulty Urinating, Dysuria, Flank Pain, Hematuria, Pyuria, Nocturia, Urinary Incontinence, Urinary Frequency, Urinary Hesitance, Urinary Urgency, Voiding Freq/Small Amts, Freq UTI, Hx Renal/Bladder Calculi, Hx /Renal Surgery, Bladder Distension, Other - Musculoskeletal Musculoskeletal: absent: As Per HPI, Abnormal Gait, Arthralgias, Atrophy, Back Pain, Deformity, Joint Swelling, Limited Range of Motion, Loss of Height, Muscle Cramps, Muscle Weakness, Myalgias, Neck Pain, Numbness, Radiating Pain into Limb, Stiffness, Tingling, Other - Integumentary Integumentary: As Per HPI, Dry Skin, Furuncle - Neurological Neurological: As Per HPI - Psychiatric Psychiatric: absent: As Per HPI, Abnormal Sleep Pattern, Anhedonia, Anxiety, Auditory Hallucinations, Behavioral Changes, Change in Appetite, Change in Libido, Confusion, Depression, Difficulty Concentrating, Hallucinations, Homicidal Ideation, Hopelessness, Irritability, Memory Loss, Mood Swings, Panic Attacks, Paranoia, Suicidal Ideation, Visual Hallucinations, Tactile Hallucinations, Other - Endocrine Endocrine: absent: As Per HPI, Change in Body Appearance, Change in Libido, Cold Intolorance, Deepening of Voice, Excessive Sweating, Fatigue, Flushing, Heat Intolorance, Increase in Ring/Shoe/Hat Size, Palpitations, Polydipsia, Polyphagia, Polyuria, Other - Hematologic/Lymphatic Hematologic: absent: As Per HPI, Easy Bleeding, Easy Bruising, Lymphadenopathy, Other Past Patient History - Infectious Disease Hx of Infectious Diseases: None - Tetanus Immunizations Tetanus Immunization: Up to Date - Past Medical History & Family History Past Medical History?: Yes - Past Social History Smoking Status: Former Smoker - CARDIAC Hx Atrial Fibrillation: Yes Hx Cardia Arrhythmia: Yes Hx Congestive Heart Failure: Yes Hx Hypercholesterolemia: Yes Hx Hypertension: Yes Hx Peripheral Edema: Yes - PULMONARY Hx Asthma: Yes Hx Chronic Obstructive Pulmonary Disease (COPD): Yes Hx Emphysema: Yes Hx Sleep Apnea: Yes (not on cpap/has had sleep studies) - NEUROLOGICAL Hx Neurological Disorder: No - HEENT Hx HEENT Problems: No - RENAL Hx Chronic Kidney Disease: No - ENDOCRINE/METABOLIC Hx Endocrine Disorders: No - HEMATOLOGICAL/ONCOLOGICAL Hx Blood Disorders: No - INTEGUMENTARY Hx Dermatological Problems: No - MUSCULOSKELETAL/RHEUMATOLOGICAL Hx Falls: Yes - GASTROINTESTINAL Hx Gastrointestinal Disorders: No - GENITOURINARY/GYNECOLOGICAL Hx Genitourinary Disorders: No - PSYCHIATRIC Hx Anxiety: Yes Hx Bipolar Disorder: Yes Hx Depression: Yes Hx Substance Use: Yes (Cocaine) - SURGICAL HISTORY Hx Appendectomy: Yes (2008) Hx Coronary Stent: Yes (2008 - 2012 4 stents) - ANESTHESIA Hx Anesthesia: Yes Hx Anesthesia Reactions: No Hx Malignant Hyperthermia: No Meds Allergies/Adverse Reactions: Allergies Allergy/AdvReac Type Severity Reaction Status Date / Time apixaban [From Eliquis] Allergy Verified 02/21/17 08:32 clopidogrel bisulfate Allergy Verified 02/21/17 08:32 [From Plavix] enoxaparin sodium Allergy Verified 02/21/17 08:32 [From Lovenox] morphine Allergy Verified 02/21/17 08:32 - Medications Medications: Current Medications Albuterol (Ventolin Hfa 90 Mcg/Actuation (8 G)) 1 puff INH RBID PRN PRN Reason: Wheezing Alprazolam (Xanax) 1 mg PO TID PRN PRN Reason: .anxiety Last Admin: 02/25/17 17:26 Dose: 1 mg Carvedilol (Coreg) 12.5 mg PO BID [facility] Last Admin: 02/25/17 17:27 Dose: 12.5 mg Cyclobenzaprine HCl (Flexeril) 10 mg PO HS [facility] Last Admin: 02/24/17 21:14 Dose: 10 mg Digoxin (Lanoxin) 0.125 mg PO 1800 [facility] Last Admin: 02/25/17 17:27 Dose: 0.125 mg Diltiazem HCl (Cardizem) 30 mg PO QID [facility] Last Admin: 02/25/17 17:27 Dose: 30 mg Famotidine (Pepcid) 20 mg PO DAILY [facility] Last Admin: 02/25/17 10:21 Dose: 20 mg Fluoxetine HCl (Prozac) 30 mg PO DAILY [facility] Last Admin: 02/25/17 10:54 Dose: 30 mg Gabapentin (Neurontin) 300 mg PO BID [facility] Last Admin: 02/25/17 17:26 Dose: 300 mg Hydromorphone HCl (Dilaudid) 1 mg IVP Q4H PRN PRN Reason: Pain, moderate (4-7) Last Admin: 02/25/17 10:21 Dose: 1 mg Hydromorphone HCl (Dilaudid) 2 mg IVP Q8H PRN PRN Reason: Pain, severe (8-10) Piperacillin Sod/Tazobactam Sod (Zosyn 3.375 Gm Iv Premix) 50 mls @ 100 mls/hr IVPB Q6H [facility] Last Admin: 02/25/17 17:28 Dose: 100 mls/hr Ibuprofen (Motrin Tab) 800 mg PO TID PRN PRN Reason: Pain, moderate (4-7) Methylprednisolone (Solu-Medrol) 40 mg IVP Q12H [facility] Montelukast Sodium (Singulair) 10 mg PO [facility] Last Admin: 02/24/17 21:14 Dose: 10 mg Nicotine (Nicoderm Cq) 1 patch TD DAILY [facility] Last Admin: 02/25/17 10:53 Dose: 1 patch Nitroglycerin (Nitrostat Sl Tab) 0.4 mg SL Q5M PRN PRN Reason: CHEST PAIN Oxycodone/Acetaminophen (Percocet 5/325 Mg Tab) 2 tab PO Q6H PRN PRN Reason: Pain, moderate (4-7) Stop: 02/27/17 23:59 Last Admin: 02/25/17 00:18 Dose: 2 tab Rosuvastatin Calcium (Crestor) 5 mg PO [facility] Last Admin: 02/24/17 21:14 Dose: 5 mg Senna/Docusate Sodium (Senokot S 50 Mg-8.6 Mg) 1 tab PO BID [facility] Last Admin: 02/25/17 17:29 Dose: Not Given Physical Exam - Constitutional Appears: Non-toxic, Chronically Ill - Head Exam Head Exam: ATRAUMATIC, NORMAL INSPECTION, NORMOCEPHALIC - Eye Exam Eye Exam: PERRL. absent: Scleral icterus - ENT Exam ENT Exam: Mucous Membranes Dry, Normal External Ear Exam, Normal Oropharynx - Neck Exam Neck exam: Negative for: Lymphadenopathy - Respiratory Exam Respiratory Exam: Decreased Breath Sounds, Clear to Auscultation Bilateral - Cardiovascular Exam Cardiovascular Exam: REGULAR RHYTHM, +S1, +S2. absent: Systolic Murmur - GI/Abdominal Exam GI & Abdominal Exam: Diminished Bowel Sounds, Distended, Guarding, Soft, Tenderness. absent: Rigid - Rectal Exam Rectal Exam: Deferred - Exam Exam: NORMAL INSPECTION - Extremities Exam Extremities exam: Positive for: pedal pulses present. Negative for: calf tenderness, pedal edema - Back Exam Back exam: absent: CVA tenderness (L), CVA tenderness (R), paraspinal tenderness - Neurological Exam Neurological exam: Alert, CN II-XII Intact, Oriented x3, Reflexes Normal - Psychiatric Exam Psychiatric exam: Depressed - Skin Skin Exam: Dry Results - Vital Signs Recent Vital Signs: Last Vital Signs Temp 100.6 F H 02/25/17 15:00 Pulse 83 02/25/17 15:00 Resp 19 02/25/17 15:00 BP 113/70 02/25/17 17:27 Pulse Ox 90 L 02/25/17 15:00 - Labs Result Diagrams: 02/24/17 08:17 02/24/17 06:44 Labs: Laboratory Results - last 24 hr 02/25/17 02/25/17 11:09 17:08 POC Glucose (mg/dL) 142 H 122 H Assessment & Plan (1) Splenic hemorrhage Status: Acute (2) Degenerative disc disease, lumbar Status: Chronic (3) Hypertension Status: Chronic (4) Sleep apnea Status: Chronic (5) ACS (acute coronary syndrome) Status: Acute (6) Abdominal pain Status: Acute (7) Atrial dysrhythmia Status: Acute (8) Back pain Status: Acute (9) MRSA (methicillin resistant Staphylococcus aureus) septicemia Status: Acute - Assessment and Plan (Free Text) Assessment: CONSIDER PILY TO R/O ENDOCARDITIS R/O SPLENIC ABSCESS + HEMATOMA WOULD GET SURGICAL OPINION MAY NEED 6 WEEKS IV RX
[2017-02-25 19:56] LABS: BASO # 0.1 K/uL (0.0-0.2); BASO % 0.4 % (0.0-2.0); EOS # 0.2 K/uL (0.0-0.7); EOS % 0.9 % (0.0-4.0); HEMATOCRIT 32.6 % (35.0-51.0); LYMPH # 1.2 K/uL (1.0-4.3); LYMPH % 6.2 % (20.0-40.0); MEAN CELL VOLUME 83.5 fL (80.0-94.0); MEAN CORPUSCULAR HEMOGLOBIN 26.4 pg (27.0-31.0); MEAN CORPUSCULAR HGB CONC 31.6 g/dL (33.0-37.0); MEAN PLATELET VOLUME 7.9 fL (7.2-11.7); MONO # 2.8 K/uL (0.0-0.8); MONO % 14.2 % (0.0-10.0); PLATELET COUNT 317 K/uL (130-400); RED CELL DISTRIBUTION WIDTH 15.2 % (11.5-14.5); WHITE BLOOD COUNT 19.7 K/uL (4.8-10.8)
[2017-02-25 20:04] LABS: CHLORIDE 88 mmol/L (98-107); POTASSIUM 4.5 mmol/L (3.6-5.2); SODIUM 130 mmol/L (132-148)
[2017-02-25 20:06] LABS: BILIRUBIN,TOTAL 1.3 mg/dL (0.2-1.3); CARBON DIOXIDE 28 mmol/L (22-30); GFR AFRICAN-AMERICAN > 60
[2017-02-25 20:07] LABS: ALB/GLOB RATIO 0.9 (1.0-2.1); ALKALINE PHOSPHATASE 90 U/L (38-126); ALT/SGPT 22 U/L (21-72); AST/SGOT 32 U/L (17-59); BLOOD UREA NITROGEN 27 mg/dL (9-20); CALCIUM 8.4 mg/dl (8.6-10.4); GLUCOSE,RANDOM 145 mg/dL (75-110); TOTAL PROTEIN 7.3 g/dL (6.3-8.3)
[2017-02-25] MEDS: MethylPREDNISolone 40 mg Vial IVP SCH (20:15)
[2017-02-25] MEDS: Vancomycin 1 gm/NS 200 ml 200 ML IVPB SCH (20:16)
[2017-02-25 21:53] LABS: EOSINOPHIL 1 % (0-4); NEUTROPHIL 80 % (50-75); TOTAL CELLS COUNTED 100
[2017-02-26] MEDS: HYDROmorphone 1 mg/ml ISec IVP PRN ×2 (00:47→14:28)
[2017-02-26] MEDS: Oxycodone/Acetaminophen 5/325 mg Tab PO PRN ×2 (02:53→17:37)
[2017-02-26] MEDS: Piperacill/Tazo 3.375gm in Dex 50 ML IVPB SCH ×6 (05:15→23:03)
[2017-02-26] MEDS: Albuterol-Ipratrop 3 mg / 0.5 (3 ml) UD INH SCH ×4 (06:27→20:25)
[2017-02-26 07:35] LABS: BASO % 0.1 % (0.0-2.0); HEMATOCRIT 32.4 % (35.0-51.0); LYMPH # 0.8 K/uL (1.0-4.3); LYMPH % 3.6 % (20.0-40.0); MEAN CELL VOLUME 83.3 fL (80.0-94.0); MEAN CORPUSCULAR HEMOGLOBIN 27.5 pg (27.0-31.0); MEAN PLATELET VOLUME 7.9 fL (7.2-11.7); MONO # 1.5 K/uL (0.0-0.8); MONO % 7.2 % (0.0-10.0); PLATELET COUNT 310 K/uL (130-400); RED CELL DISTRIBUTION WIDTH 15.2 % (11.5-14.5); WHITE BLOOD COUNT 21.1 K/uL (4.8-10.8)
[2017-02-26 07:45] LABS: CHLORIDE 88 mmol/L (98-107); SODIUM 129 mmol/L (132-148)
[2017-02-26 07:46] LABS: POTASSIUM 5.3 mmol/L (3.6-5.2)
[2017-02-26 07:47] LABS: GFR AFRICAN-AMERICAN > 60
[2017-02-26 07:48] LABS: ALB/GLOB RATIO 0.9 (1.0-2.1); ALKALINE PHOSPHATASE 102 U/L (38-126); ALT/SGPT 16 U/L (21-72); AST/SGOT 31 U/L (17-59); BILIRUBIN,TOTAL 0.9 mg/dL (0.2-1.3); BLOOD UREA NITROGEN 24 mg/dL (9-20); CARBON DIOXIDE 28 mmol/L (22-30); GLUCOSE,RANDOM 217 mg/dL (75-110); PHOSPHOROUS 3.1 mg/dL (2.5-4.5); TOTAL PROTEIN 7.7 g/dL (6.3-8.3)
[2017-02-26 07:49] LABS: CALCIUM 8.9 mg/dl (8.6-10.4); MAGNESIUM 2.5 mg/dL (1.6-2.3)
[2017-02-26] MEDS: Vancomycin 1 gm/NS 200 ml 200 ML IVPB SCH ×2 (08:32→20:15)
[2017-02-26] MEDS: MethylPREDNISolone 40 mg Vial IVP SCH ×2 (08:32→21:10)
[2017-02-26 09:11] LABS: NEUTROPHIL 88 % (50-75); TOTAL CELLS COUNTED 100
--- NOTE | 2017-02-26 09:29 | CP.PCM.CON ---
History of Present Illness - History of Present Illness History of Present Illness: reason for consultation: obstructive sleep apnea 46yo M w/ hx of HTN, CAD, CHF, Afib on coumadin, COPD, ARLENE, Bipolar d/o, Chronic back pain d/t herniated discs, admitted with LUQ abdominal pain radiating to the back. Pt states that approx. 1 month ago he fell and developed some LUQ discomfort. He went to [facility] [place]. Pt states a CT showed "a clot in my spleen" but he was told this would resolve and nothing more needed to be done. Pt states his pain improved over the past few days. Prior to arrival the pain got worse and patient decided to come to emergency room Pt is seen in the ED. HR noted to be in the 140s-150s, irregular, BP stable and wnl. Labs significant for WBC of 20.3, K of 5.4. H/H was WNL. A CT abd/ pelvis was done which showed findings consistent w/ splenic hematoma and poss. small splenic laceration w/ high atten. fluid in pericolic gutter. surgery was consulted with no surgical intervention and follow-up H&H Patient complaining of nocturnal snoring and has history of obstructive sleep apnea with noncompliance using CPAP PMH: HTN, CAD, CHF, Afib, COPD, ARLENE, Herniated discs L-spine, Bipolar/Depression PSH: Appendectomy (2008), Coronary stents x4 ([id number]) Review of Systems - Review of Systems All systems: reviewed and no additional remarkable complaints except ( complaining of nocturnal snoring and left upper quadrant pain) Past Patient History - Infectious Disease Hx of Infectious Diseases: None - Tetanus Immunizations Tetanus Immunization: Up to Date - Past Medical History & Family History Past Medical History?: Yes - Past Social History Smoking Status: Former Smoker - CARDIAC Hx Atrial Fibrillation: Yes Hx Cardia Arrhythmia: Yes Hx Congestive Heart Failure: Yes Hx Hypercholesterolemia: Yes Hx Hypertension: Yes Hx Peripheral Edema: Yes - PULMONARY Hx Asthma: Yes Hx Chronic Obstructive Pulmonary Disease (COPD): Yes Hx Emphysema: Yes Hx Sleep Apnea: Yes (not on cpap/has had sleep studies) - NEUROLOGICAL Hx Neurological Disorder: No - HEENT Hx HEENT Problems: No - RENAL Hx Chronic Kidney Disease: No - ENDOCRINE/METABOLIC Hx Endocrine Disorders: No - HEMATOLOGICAL/ONCOLOGICAL Hx Blood Disorders: No - INTEGUMENTARY Hx Dermatological Problems: No - MUSCULOSKELETAL/RHEUMATOLOGICAL Hx Falls: Yes - GASTROINTESTINAL Hx Gastrointestinal Disorders: No - GENITOURINARY/GYNECOLOGICAL Hx Genitourinary Disorders: No - PSYCHIATRIC Hx Anxiety: Yes Hx Bipolar Disorder: Yes Hx Depression: Yes Hx Substance Use: Yes (Cocaine) - SURGICAL HISTORY Hx Appendectomy: Yes (2008) Hx Coronary Stent: Yes (2008 - 2012 4 stents) - ANESTHESIA Hx Anesthesia: Yes Hx Anesthesia Reactions: No Hx Malignant Hyperthermia: No Meds Allergies/Adverse Reactions: Allergies Allergy/AdvReac Type Severity Reaction Status Date / Time apixaban [From Eliquis] Allergy Verified 02/21/17 08:32 clopidogrel bisulfate Allergy Verified 02/21/17 08:32 [From Plavix] enoxaparin sodium Allergy Verified 02/21/17 08:32 [From Lovenox] morphine Allergy Verified 02/21/17 08:32 - Medications Medications: Current Medications Albuterol (Ventolin Hfa 90 Mcg/Actuation (8 G)) 1 puff INH RBID PRN PRN Reason: Wheezing Albuterol/Ipratropium (Duoneb 3 Mg/0.5 Mg (3 Ml) Ud) 3 ml INH RQ6 [facility] Last Admin: 02/26/17 07:20 Dose: Not Given Alprazolam (Xanax) 1 mg PO TID PRN PRN Reason: .anxiety Last Admin: 02/26/17 06:04 Dose: 1 mg Carvedilol (Coreg) 12.5 mg PO BID [facility] Last Admin: 02/25/17 17:27 Dose: 12.5 mg Cyclobenzaprine HCl (Flexeril) 10 mg PO HS [facility] Last Admin: 02/25/17 21:33 Dose: 10 mg Digoxin (Lanoxin) 0.125 mg PO 1800 [facility] Last Admin: 02/25/17 17:27 Dose: 0.125 mg Diltiazem HCl (Cardizem) 30 mg PO QID [facility] Last Admin: 02/25/17 21:33 Dose: 30 mg Famotidine (Pepcid) 20 mg PO DAILY [facility] Last Admin: 02/25/17 10:21 Dose: 20 mg Fluoxetine HCl (Prozac) 30 mg PO DAILY [facility] Last Admin: 02/25/17 10:54 Dose: 30 mg Gabapentin (Neurontin) 300 mg PO BID [facility] Last Admin: 02/25/17 17:26 Dose: 300 mg Hydromorphone HCl (Dilaudid) 1 mg IVP Q4H PRN PRN Reason: Pain, moderate (4-7) Last Admin: 02/26/17 00:47 Dose: 1 mg Hydromorphone HCl (Dilaudid) 2 mg IVP Q8H PRN PRN Reason: Pain, severe (8-10) Last Admin: 02/26/17 07:21 Dose: 2 mg Piperacillin Sod/Tazobactam Sod (Zosyn 3.375 Gm Iv Premix) 50 mls @ 100 mls/hr IVPB Q6H [facility] Last Admin: 02/26/17 05:15 Dose: 100 mls/hr Vancomycin/Sodium Chloride (Vancocin) 200 mls @ 133 mls/hr IVPB Q12H [facility] Stop: 03/02/17 20:01 Last Admin: 02/26/17 08:32 Dose: 133 mls/hr Ibuprofen (Motrin Tab) 800 mg PO TID PRN PRN Reason: Pain, moderate (4-7) Methylprednisolone (Solu-Medrol) 40 mg IVP Q12H [facility] Last Admin: 02/26/17 08:32 Dose: 40 mg Montelukast Sodium (Singulair) 10 mg PO [facility] Last Admin: 02/25/17 21:33 Dose: 10 mg Nicotine (Nicoderm Cq) 1 patch TD DAILY [facility] Last Admin: 02/25/17 10:53 Dose: 1 patch Nitroglycerin (Nitrostat Sl Tab) 0.4 mg SL Q5M PRN PRN Reason: CHEST PAIN Oxycodone/Acetaminophen (Percocet 5/325 Mg Tab) 2 tab PO Q6H PRN PRN Reason: Pain, moderate (4-7) Stop: 02/27/17 23:59 Last Admin: 02/26/17 02:53 Dose: 2 tab Rosuvastatin Calcium (Crestor) 5 mg PO [facility] Last Admin: 02/25/17 21:33 Dose: 5 mg Senna/Docusate Sodium (Senokot S 50 Mg-8.6 Mg) 1 tab PO BID [facility] Last Admin: 02/25/17 17:29 Dose: Not Given Physical Exam - Head Exam Head Exam: ATRAUMATIC, NORMOCEPHALIC - ENT Exam ENT Exam: Mucous Membranes Moist - Neck Exam Neck exam: Positive for: Normal Inspection - Respiratory Exam Respiratory Exam: Clear to Auscultation Bilateral - Cardiovascular Exam Cardiovascular Exam: Irregular Rhythm - GI/Abdominal Exam GI & Abdominal Exam: Normal Bowel Sounds - Extremities Exam Extremities exam: Positive for: pedal edema Results - Vital Signs Recent Vital Signs: Last Vital Signs Temp 97.6 F 02/26/17 08:00 Pulse 81 02/26/17 08:00 Resp 18 02/26/17 08:00 BP 133/52 L 02/26/17 08:00 Pulse Ox 96 02/26/17 08:00 - Labs Result Diagrams: 02/26/17 06:50 02/26/17 06:50 Labs: Laboratory Results - last 24 hr 02/25/17 02/25/17 02/25/17 11:09 17:08 19:49 WBC 19.7 H RBC 3.90 L Hgb 10.3 L Hct 32.6 L MCV 83.5 MCH 26.4 L MCHC 31.6 L RDW 15.2 H Plt Count 317 MPV 7.9 Neut % (Auto) 78.3 H Lymph % (Auto) 6.2 L [place] % (Auto) 14.2 H Eos % (Auto) 0.9 Baso % (Auto) 0.4 Neut # 15.5 H Lymph # 1.2 [place] # 2.8 H Eos # 0.2 Baso # 0.1 Neutrophils % (Manual) 80 H Band Neutrophils % Lymphocytes % (Manual) 7 L Monocytes % (Manual) 12 H Eosinophils % (Manual) 1 Platelet Estimate Normal Polychromasia Hypochromasia (manual) Anisocytosis (manual) Sodium 130 L Potassium 4.5 Chloride 88 L Carbon Dioxide 28 Anion Gap 19 BUN 27 H Creatinine 1.1 Est GFR ( Amer) > 60 Est GFR (Non-Af Amer) > 60 POC Glucose (mg/dL) 142 H 122 H Random Glucose 145 H Calcium 8.4 L Phosphorus Magnesium Total Bilirubin 1.3 AST 32 ALT 22 Alkaline Phosphatase 90 Total Protein 7.3 Albumin 3.4 L Globulin 3.8 Albumin/Globulin Ratio 0.9 L Procalcitonin 02/25/17 02/25/17 02/26/17 19:50 21:36 06:46 WBC RBC Hgb Hct MCV MCH MCHC RDW Plt Count MPV Neut % (Auto) Lymph % (Auto) [place] % (Auto) Eos % (Auto) Baso % (Auto) Neut # Lymph # [place] # Eos # Baso # Neutrophils % (Manual) Band Neutrophils % Lymphocytes % (Manual) Monocytes % (Manual) Eosinophils % (Manual) Platelet Estimate Polychromasia Hypochromasia (manual) Anisocytosis (manual) Sodium Potassium Chloride Carbon Dioxide Anion Gap BUN Creatinine Est GFR ( Amer) Est GFR (Non-Af Amer) POC Glucose (mg/dL) 206 H 246 H Random Glucose Calcium Phosphorus Magnesium Total Bilirubin AST ALT Alkaline Phosphatase Total Protein Albumin Globulin Albumin/Globulin Ratio Procalcitonin 0.92 H 02/26/17 06:50 WBC 21.1 H RBC 3.89 L Hgb 10.7 L Hct 32.4 L MCV 83.3 MCH 27.5 MCHC 33.0 RDW 15.2 H Plt Count 310 MPV 7.9 Neut % (Auto) 89.1 H Lymph % (Auto) 3.6 L [place] % (Auto) 7.2 Eos % (Auto) 0.0 Baso % (Auto) 0.1 Neut # 18.8 H Lymph # 0.8 L [place] # 1.5 H Eos # 0.0 Baso # 0.0 Neutrophils % (Manual) 88 H Band Neutrophils % 2 Lymphocytes % (Manual) 5 L Monocytes % (Manual) 5 Eosinophils % (Manual) Platelet Estimate Normal Polychromasia Slight Hypochromasia (manual) Slight Anisocytosis (manual) Slight Sodium 129 L Potassium 5.3 H Chloride 88 L Carbon Dioxide 28 Anion Gap 18 BUN 24 H Creatinine 0.9 Est GFR ( Amer) > 60 Est GFR (Non-Af Amer) > 60 POC Glucose (mg/dL) Random Glucose 217 H Calcium 8.9 Phosphorus 3.1 Magnesium 2.5 H Total Bilirubin 0.9 AST 31 ALT 16 L D Alkaline Phosphatase 102 Total Protein 7.7 Albumin 3.6 Globulin 4.1 H Albumin/Globulin Ratio 0.9 L Procalcitonin Assessment & Plan (1) Sleep apnea Status: Chronic Comment: CPAP of 10 cm water at night. continue present treatment. We will obtain sleep study (2) Splenic hemorrhage Status: Acute
[2017-02-26] MEDS: Docusate-Senna 50 mg-8.6 mg Tab PO SCH ×2 (10:53→17:38)
[2017-02-26 11:05] LABS: ABG ALLEN TEST POS; DRAW SITE RR
--- NOTE | 2017-02-26 15:19 | CP.PCM.PN ---
<DedrickDewey - Last Filed: 02/26/17 18:31> Subjective - Date & Time of Evaluation Date of Evaluation: 02/26/17 Time of Evaluation: 15:12 - Subjective Subjective: PGY-[address] Ocampo's service Pt seen and examined at bedside. Pt has no new complaints. Still complains of some abdominal pain and sob with any exertion. Denies fevers, chills, chest pain , nausea or vomiting. Code sepsis was called on the pt this morning at 11:36 due to a lactate of 2.5 Pt was hemodynamically stable and in fact hypertensive so no fluid bolus given. Pt afebrile and clinically stable. A report lactate was ordered - will f/u. Pt currently on abx and ID on board. Will continue with current treatment. Objective - Vital Signs/Intake and Output Vital Signs (last 24 hours): Temp Pulse Resp BP Pulse Ox 98.2 F 102 H 24 140/62 95 02/26/17 14:29 02/26/17 14:29 02/26/17 14:29 02/26/17 14:29 02/26/17 14:29 Intake and Output: 02/26/17 02/26/17 06:59 18:59 Intake Total 250 700 Output Total 450 Balance 250 250 - Medications Medications: Current Medications Albuterol (Ventolin Hfa 90 Mcg/Actuation (8 G)) 1 puff INH RBID PRN PRN Reason: Wheezing Albuterol/Ipratropium (Duoneb 3 Mg/0.5 Mg (3 Ml) Ud) 3 ml INH RQ6 [facility] Last Admin: 02/26/17 13:11 Dose: 3 ml Alprazolam (Xanax) 1 mg PO TID PRN PRN Reason: .anxiety Last Admin: 02/26/17 06:04 Dose: 1 mg Carvedilol (Coreg) 12.5 mg PO BID [facility] Last Admin: 02/26/17 10:53 Dose: 12.5 mg Cyclobenzaprine HCl (Flexeril) 10 mg PO HS [facility] Last Admin: 02/25/17 21:33 Dose: 10 mg Digoxin (Lanoxin) 0.125 mg PO 1800 [facility] Last Admin: 02/25/17 17:27 Dose: 0.125 mg Diltiazem HCl (Cardizem) 30 mg PO QID [facility] Last Admin: 02/26/17 14:28 Dose: 30 mg Famotidine (Pepcid) 20 mg PO DAILY [facility] Last Admin: 02/26/17 10:53 Dose: 20 mg Fluoxetine HCl (Prozac) 30 mg PO DAILY [facility] Last Admin: 02/26/17 10:53 Dose: 30 mg Gabapentin (Neurontin) 300 mg PO BID [facility] Last Admin: 02/26/17 10:53 Dose: 300 mg Hydromorphone HCl (Dilaudid) 1 mg IVP Q4H PRN PRN Reason: Pain, moderate (4-7) Last Admin: 02/26/17 14:28 Dose: 1 mg Hydromorphone HCl (Dilaudid) 2 mg IVP Q8H PRN PRN Reason: Pain, severe (8-10) Last Admin: 02/26/17 07:21 Dose: 2 mg Piperacillin Sod/Tazobactam Sod (Zosyn 3.375 Gm Iv Premix) 50 mls @ 100 mls/hr IVPB Q6H [facility] Last Admin: 02/26/17 10:52 Dose: 100 mls/hr Vancomycin/Sodium Chloride (Vancocin) 200 mls @ 133 mls/hr IVPB Q12H [facility] Stop: 03/02/17 20:01 Last Admin: 02/26/17 08:32 Dose: 133 mls/hr Ibuprofen (Motrin Tab) 800 mg PO TID PRN PRN Reason: Pain, moderate (4-7) Methylprednisolone (Solu-Medrol) 40 mg IVP Q12H [facility] Last Admin: 02/26/17 08:32 Dose: 40 mg Montelukast Sodium (Singulair) 10 mg PO [facility] Last Admin: 02/25/17 21:33 Dose: 10 mg Nicotine (Nicoderm Cq) 1 patch TD DAILY [facility] Last Admin: 02/26/17 10:53 Dose: 1 patch Nitroglycerin (Nitrostat Sl Tab) 0.4 mg SL Q5M PRN PRN Reason: CHEST PAIN Oxycodone/Acetaminophen (Percocet 5/325 Mg Tab) 2 tab PO Q6H PRN PRN Reason: Pain, moderate (4-7) Stop: 02/27/17 23:59 Last Admin: 02/26/17 02:53 Dose: 2 tab Rosuvastatin Calcium (Crestor) 5 mg PO [facility] Last Admin: 02/25/17 21:33 Dose: 5 mg Senna/Docusate Sodium (Senokot S 50 Mg-8.6 Mg) 1 tab PO BID [facility] Last Admin: 02/26/17 10:53 Dose: 1 tab - Labs Labs: 02/26/17 06:50 02/26/17 06:50 PT 22.5 SECONDS (9.7-12.2) H 02/22/17 06:18 INR 2.0 02/22/17 06:18 APTT 37 SECONDS (21-34) H D 02/22/17 06:18 - Constitutional Appears: Non-toxic, No Acute Distress - Head Exam Head Exam: ATRAUMATIC, NORMOCEPHALIC - Eye Exam Eye Exam: Normal appearance - ENT Exam ENT Exam: Mucous Membranes Moist - Respiratory Exam Respiratory Exam: Rhonchi, NORMAL BREATHING PATTERN. absent: Rales - Cardiovascular Exam Cardiovascular Exam: +S1, +S2 - GI/Abdominal Exam GI & Abdominal Exam: Soft, Tenderness (diffuse), Normal Bowel Sounds - Neurological Exam Neurological Exam: Alert, Awake - Skin Skin Exam: Dry, Warm Assessment and Plan - Assessment and Plan (Free Text) Assessment: Splenic hematoma - Stable - Surgery following (Parrish) - help appreciated - No surgical intervention at this time. - Hgb stable, continue to monitor and transfuse if necessary - Still with diffuse abdominal pain - Patient was on Coumadin for A. fib and aspirin for CAD. Reversed Coumadin with vitamin K and 1 unit of FFP. Reversed aspirin with DDAVP and 1 unit of platelets. Abdominal pain - secondary to splenic hematoma - as above Leukosytosis - Code sepsis called today, but clinically the same - Stable but elevated - Blood cx 02/22 - positive for staph A x1 - may be contaminate - Tmax 98.3 overnight - Zosyn started 02/22 - ID consulted (Yas) - help appreciated - Started vancomycin 02/25 - consider PILY to r/o endocarditis A fib - Holding anticoagulation secondary to splenic hematoma - Digoxin (Lanoxin) 0.125 mg PO DAILY [facility] - Carvedilol 12.5 mg PO BID - Rate controlled Hx of systolic heart failure - Echo 02/25 - EF of 43% - awaiting official read - Start Home lasix - 40mg daily Hx of HTN - Carvedilol 12.5 mg PO BID - Diltiazem 30 mg PO QID [facility] - Nitroglycerin 0.4 mg SL Q5M PRN Hx of CAD - Rosuvastatin Calcium (Crestor) 5 mg PO HS [facility] Hx of COPD - Albuterol (Ventolin Hfa 90 Mcg/Actuation (8 G)) 1 puff INH RBID PRN - Montelukast Sodium (Singulair) 10 mg PO HS [facility] Constipation - Senna/Docusate Sodium (Senokot S 50 Mg-8.6 Mg) 1 tab PO BID [facility] Hx of bipolar/depression - Alprazolam (Xanax) 1 mg PO TID PRN - Fluoxetine HCl (Prozac) 30 mg PO DAILY [facility] PPx - Pepcid - VTE pharmacotherapy ppx contraindicated with splenic hematoma <Roque Ocampo Jr. - Last Filed: 02/27/17 17:22> Objective - Vital Signs/Intake and Output Vital Signs (last 24 hours): Temp Pulse Resp BP Pulse Ox 97.5 F L 88 18 133/91 H 95 02/27/17 08:00 02/27/17 08:00 02/27/17 08:00 02/27/17 09:17 02/27/17 08:00 - Labs Labs: 02/27/17 07:29 02/27/17 07:29 PT 22.5 SECONDS (9.7-12.2) H 02/22/17 06:18 INR 2.0 02/22/17 06:18 APTT 37 SECONDS (21-34) H D 02/22/17 06:18 Attending/Attestation - Attestation I have personally seen and examined this patient.: Yes I have fully participated in the care of the patient.: Yes I have reviewed all pertinent clinical information, including history, physical exam and plan: Yes Notes (Text): 02/27/17 17:22 Patient seen and examined with the resident. Reviewed resident note in plan of care. Agree with findings and as per plan of care that was discussed
--- NOTE | 2017-02-26 16:54 | PCM.SEPTIC ---
Sepsis Progress Note - Reassessment Type Date of Evaluation: 02/26/17 Time of Evaluation: 15:30 Reassessment Type: Non-invasive reassessment - Non Invasive Reassessment Were the most recent vital sign reviewed: Yes Vital Sign (Latest): Temp Pulse Resp BP Pulse Ox 97.8 F 99 H 20 145/63 96 02/26/17 15:55 02/26/17 15:55 02/26/17 15:55 02/26/17 15:55 02/26/17 15:55 Cardiovascular: Yes: Regular Rate, Rhythm Respiratory: Yes: Rhonchi. No: Respiratory Distress Capillary Refill: Normal (Less than 2 sec) Skin: Warm, Dry
[2017-02-26 17:38] VITALS: PULSE 84
[2017-02-26] MEDS: Digoxin 125 mcg (0.125 mg) Tab PO SCH (17:38)
--- NOTE | 2017-02-26 18:40 | CP.PCM.PN ---
Subjective - Date & Time of Evaluation Date of Evaluation: 02/26/17 Time of Evaluation: 06:00 - Subjective Subjective: rx in progress for MRSA bacteremia/ sepsis seen by Dr Santos Rx in progress agitated at times wants to sign out Objective - Vital Signs/Intake and Output Vital Signs (last 24 hours): Temp Pulse Resp BP Pulse Ox 97.8 F 99 H 20 138/68 96 02/26/17 15:55 02/26/17 15:55 02/26/17 15:55 02/26/17 17:38 02/26/17 15:55 Intake and Output: 02/26/17 02/26/17 06:59 18:59 Intake Total 250 700 Output Total 450 Balance 250 250 - Medications Medications: Current Medications Albuterol (Ventolin Hfa 90 Mcg/Actuation (8 G)) 1 puff INH RBID PRN PRN Reason: Wheezing Albuterol/Ipratropium (Duoneb 3 Mg/0.5 Mg (3 Ml) Ud) 3 ml INH RQ6 [facility] Last Admin: 02/26/17 13:11 Dose: 3 ml Alprazolam (Xanax) 1 mg PO TID PRN PRN Reason: .anxiety Last Admin: 02/26/17 17:37 Dose: 1 mg Carvedilol (Coreg) 12.5 mg PO BID [facility] Last Admin: 02/26/17 17:38 Dose: 12.5 mg Cyclobenzaprine HCl (Flexeril) 10 mg PO HS [facility] Last Admin: 02/25/17 21:33 Dose: 10 mg Digoxin (Lanoxin) 0.125 mg PO 1800 [facility] Last Admin: 02/26/17 17:38 Dose: 0.125 mg Diltiazem HCl (Cardizem) 30 mg PO QID [facility] Last Admin: 02/26/17 17:37 Dose: 30 mg Famotidine (Pepcid) 20 mg PO DAILY [facility] Last Admin: 02/26/17 10:53 Dose: 20 mg Fluoxetine HCl (Prozac) 30 mg PO DAILY [facility] Last Admin: 02/26/17 10:53 Dose: 30 mg Furosemide (Lasix) 40 mg IVP DAILY [facility] Gabapentin (Neurontin) 300 mg PO BID [facility] Last Admin: 02/26/17 17:38 Dose: 300 mg Hydromorphone HCl (Dilaudid) 1 mg IVP Q4H PRN PRN Reason: Pain, moderate (4-7) Last Admin: 02/26/17 14:28 Dose: 1 mg Hydromorphone HCl (Dilaudid) 2 mg IVP Q8H PRN PRN Reason: Pain, severe (8-10) Last Admin: 02/26/17 07:21 Dose: 2 mg Piperacillin Sod/Tazobactam Sod (Zosyn 3.375 Gm Iv Premix) 50 mls @ 100 mls/hr IVPB Q6H [facility] Last Admin: 02/26/17 17:04 Dose: 100 mls/hr Vancomycin/Sodium Chloride (Vancocin) 200 mls @ 133 mls/hr IVPB Q12H [facility] Stop: 03/02/17 20:01 Last Admin: 02/26/17 08:32 Dose: 133 mls/hr Ibuprofen (Motrin Tab) 800 mg PO TID PRN PRN Reason: Pain, moderate (4-7) Methylprednisolone (Solu-Medrol) 40 mg IVP Q12H [facility] Last Admin: 02/26/17 08:32 Dose: 40 mg Montelukast Sodium (Singulair) 10 mg PO [facility] Last Admin: 02/25/17 21:33 Dose: 10 mg Nicotine (Nicoderm Cq) 1 patch TD DAILY [facility] Last Admin: 02/26/17 10:53 Dose: 1 patch Nitroglycerin (Nitrostat Sl Tab) 0.4 mg SL Q5M PRN PRN Reason: CHEST PAIN Oxycodone/Acetaminophen (Percocet 5/325 Mg Tab) 2 tab PO Q6H PRN PRN Reason: Pain, moderate (4-7) Stop: 02/27/17 23:59 Last Admin: 02/26/17 17:37 Dose: 2 tab Rosuvastatin Calcium (Crestor) 5 mg PO [facility] Last Admin: 02/25/17 21:33 Dose: 5 mg Senna/Docusate Sodium (Senokot S 50 Mg-8.6 Mg) 1 tab PO BID [facility] Last Admin: 02/26/17 17:38 Dose: 1 tab - Labs Labs: 02/26/17 06:50 02/26/17 06:50 PT 22.5 SECONDS (9.7-12.2) H 02/22/17 06:18 INR 2.0 02/22/17 06:18 APTT 37 SECONDS (21-34) H D 02/22/17 06:18 - Constitutional Appears: Non-toxic - Head Exam Head Exam: NORMOCEPHALIC - Eye Exam Eye Exam: EOMI, PERRL. absent: Scleral icterus - ENT Exam ENT Exam: Mucous Membranes Dry - Neck Exam Neck Exam: Lymphadenopathy - Respiratory Exam Respiratory Exam: Decreased Breath Sounds, Rales, Rhonchi - Cardiovascular Exam Cardiovascular Exam: REGULAR RHYTHM, +S1, +S2 - GI/Abdominal Exam GI & Abdominal Exam: Distended, Soft - Rectal Exam Rectal Exam: Deferred - Exam Exam: NORMAL INSPECTION Assessment and Plan (1) Splenic hemorrhage Status: Acute (2) Degenerative disc disease, lumbar Status: Chronic (3) Hypertension Status: Chronic (4) Sleep apnea Status: Chronic (5) ACS (acute coronary syndrome) Status: Acute (6) Abdominal pain Status: Acute (7) Atrial dysrhythmia Status: Acute (8) Back pain Status: Acute (9) MRSA (methicillin resistant Staphylococcus aureus) septicemia Status: Acute
--- NOTE | 2017-02-26 21:07 | CARD ---
APPROVED REPORT EXAM: Two-dimensional and M-mode echocardiogram with Doppler and color Doppler. Other Information Quality : GoodAverageTechnically LimitedTechnically LimitedRhythm : INDICATION Dyspnea Chest Pain Syncope Palpitations H TROPONIN, + BIC, ETOH ABUSE, R/O ENDOCARDITIS, SPLENIC HEMATOMA, ON COUMADIN RISK FACTORS Hypertension Obesity M-Mode DIMENSIONS RVDd2.15 (2.1-3.2cm)Left Atrium (MM)6.01 (2.5-4.0cm) IVSd0.95 (0.7-1.1cm)Aortic Root3.91 (2.2-3.7cm) LVDd7.06 (4.0-5.6cm)Aortic Cusp Exc.2.24 (1.5-2.0cm) PWd1.91 (0.7-1.1cm)FS (%) 22 % LVDs5.54 (2.0-3.8cm)LVEF (%)43 (>50%) Aortic Valve AoV Peak Jgjqvynd253.9cm/Warren Peak GR.7mmHg Mitral Valve MV E Hxttlpuk128.1cm/sMV A Qfmgibnp94.9cm/sE/A ratio1.3 TDI E/Lateral E'0.0E/Medial E'0.0 Tricuspid Valve TR Peak [id number]/sTR Peak Gr.[id number] LEFT VENTRICLE The Left Ventricle is severely dilated. There is normal left ventricular wall thickness. The systolic function is severely impaired, with diffuse hypokinesis. There is no ventricular septal defect visualized. RIGHT VENTRICLE The right ventricle is normal size. There is normal right ventricular wall thickness. The right ventricular systolic function is mildly reduced. ATRIA The left atrium is severely dilated. The right atrium size is normal. The interatrial septum is intact with no evidence for an atrial septal defect. AORTIC VALVE The aortic valve is normal in structure and function. No aortic regurgitation is present. There is no aortic valvular stenosis. There is no aortic valvular vegetation. MITRAL VALVE The mitral valve is normal in structure and function. There is no evidence of mitral valve prolapse. There is no mitral valve stenosis. There is no mitral valve regurgitation noted. TRICUSPID VALVE The tricuspid valve is normal in structure and function. There is no tricuspid valve regurgitation noted. There is no tricuspid valve prolapse or vegetation. There is no tricuspid valve stenosis. GREAT VESSELS The aortic root is normal in size. The IVC is normal in size and collapses >50% with inspiration. PERICARDIAL EFFUSION There is no pericardial effusion. There is no pleural effusion. <Conclusion> Sub-optimal study Dilated cardiomyopathy. Estimation of EF is difficult, approximately 25%. Normal Doppler.
[2017-02-27] MEDS: Albuterol-Ipratrop 3 mg / 0.5 (3 ml) UD INH SCH ×4 (01:01→13:19)
[2017-02-27] MEDS: Piperacill/Tazo 3.375gm in Dex 50 ML IVPB SCH ×2 (05:39→10:14)
[2017-02-27 07:40] LABS: BASO % 0.1 % (0.0-2.0); HEMATOCRIT 36.4 % (35.0-51.0); LYMPH # 0.7 K/uL (1.0-4.3); MEAN CELL VOLUME 84.2 fL (80.0-94.0); MEAN CORPUSCULAR HEMOGLOBIN 26.5 pg (27.0-31.0); MEAN CORPUSCULAR HGB CONC 31.5 g/dL (33.0-37.0); MONO % 8.1 % (0.0-10.0); PLATELET COUNT 398 K/uL (130-400); RED CELL DISTRIBUTION WIDTH 15.1 % (11.5-14.5)
[2017-02-27 07:52] LABS: CHLORIDE 88 mmol/L (98-107)
[2017-02-27 07:53] LABS: POTASSIUM 4.7 mmol/L (3.6-5.2); SODIUM 137 mmol/L (132-148)
[2017-02-27 07:55] LABS: ALKALINE PHOSPHATASE 106 U/L (38-126); AST/SGOT 29 U/L (17-59); BILIRUBIN,TOTAL 0.9 mg/dL (0.2-1.3); BLOOD UREA NITROGEN 26 mg/dL (9-20); CARBON DIOXIDE 34 mmol/L (22-30); GFR AFRICAN-AMERICAN > 60; GLUCOSE,RANDOM 250 mg/dL (75-110); TOTAL PROTEIN 7.7 g/dL (6.3-8.3)
[2017-02-27 07:56] LABS: ALT/SGPT 20 U/L (21-72); CALCIUM 8.8 mg/dl (8.6-10.4); MAGNESIUM 2.1 mg/dL (1.6-2.3); PHOSPHOROUS 3.6 mg/dL (2.5-4.5)
[2017-02-27 08:18] LABS: ALB/GLOB RATIO 0.9 (1.0-2.1)
[2017-02-27 08:58] LABS: NEUTROPHIL 85 % (50-75); TOTAL CELLS COUNTED 100
[2017-02-27] MEDS: MethylPREDNISolone 40 mg Vial IVP SCH (09:00)
[2017-02-27] MEDS: Vancomycin 1 gm/NS 200 ml 200 ML IVPB SCH (09:00)
[2017-02-27 09:09] VITALS: BP 133/91; PULSE 88; RESP 18; TEMP 97.5
[2017-02-27] MEDS: Docusate-Senna 50 mg-8.6 mg Tab PO SCH (09:20)
--- NOTE | 2017-02-27 09:34 | CP.PCM.PN ---
Subjective - Date & Time of Evaluation Date of Evaluation: 02/27/17 Time of Evaluation: :31 - Subjective Subjective: Pt seen and examined at bedside, not acute distress, no acute events overnight. The pt continues to complain of shortness of breath, but does not want to have sleep study done or use CPAP as he feels claustrophobic and cannot tolerate it. The pt otherwise denies n/v/f/c, chest pain, palpitations at this time. Objective - Vital Signs/Intake and Output Vital Signs (last 24 hours): Temp Pulse Resp BP Pulse Ox 97.5 F L 88 18 133/91 H 95 02/27/17 08:00 02/27/17 08:00 02/27/17 08:00 02/27/17 09:17 02/27/17 08:00 - Medications Medications: Current Medications Albuterol (Ventolin Hfa 90 Mcg/Actuation (8 G)) 1 puff INH RBID PRN PRN Reason: Wheezing Albuterol/Ipratropium (Duoneb 3 Mg/0.5 Mg (3 Ml) Ud) 3 ml INH RQ6 [facility] Last Admin: 02/27/17 06:07 Dose: 3 ml Alprazolam (Xanax) 1 mg PO TID PRN PRN Reason: .anxiety Last Admin: 02/27/17 05:55 Dose: 1 mg Carvedilol (Coreg) 12.5 mg PO BID [facility] Last Admin: 02/27/17 09:17 Dose: 12.5 mg Cyclobenzaprine HCl (Flexeril) 10 mg PO HS [facility] Last Admin: 02/26/17 21:10 Dose: 10 mg Digoxin (Lanoxin) 0.125 mg PO 1800 [facility] Last Admin: 02/26/17 17:38 Dose: 0.125 mg Diltiazem HCl (Cardizem) 30 mg PO QID [facility] Last Admin: 02/27/17 09:08 Dose: 30 mg Famotidine (Pepcid) 20 mg PO DAILY [facility] Last Admin: 02/27/17 09:20 Dose: 20 mg Fluoxetine HCl (Prozac) 30 mg PO DAILY [facility] Last Admin: 02/27/17 09:20 Dose: 30 mg Furosemide (Lasix) 40 mg IVP DAILY [facility] Last Admin: 02/27/17 09:17 Dose: 40 mg Gabapentin (Neurontin) 300 mg PO BID [facility] Last Admin: 02/27/17 09:19 Dose: 300 mg Hydromorphone HCl (Dilaudid) 1 mg IVP Q4H PRN PRN Reason: Pain, moderate (4-7) Last Admin: 02/26/17 14:28 Dose: 1 mg Hydromorphone HCl (Dilaudid) 2 mg IVP Q8H PRN PRN Reason: Pain, severe (8-10) Last Admin: 02/27/17 05:55 Dose: 2 mg Piperacillin Sod/Tazobactam Sod (Zosyn 3.375 Gm Iv Premix) 50 mls @ 100 mls/hr IVPB Q6H [facility] Last Admin: 02/27/17 05:39 Dose: 100 mls/hr Vancomycin/Sodium Chloride (Vancocin) 200 mls @ 133 mls/hr IVPB Q12H [facility] Stop: 03/02/17 20:01 Last Admin: 02/27/17 09:00 Dose: 133 mls/hr Ibuprofen (Motrin Tab) 800 mg PO TID PRN PRN Reason: Pain, moderate (4-7) Last Admin: 02/27/17 09:09 Dose: 800 mg Methylprednisolone (Solu-Medrol) 40 mg IVP Q12H [facility] Last Admin: 02/27/17 09:00 Dose: 40 mg Montelukast Sodium (Singulair) 10 mg PO [facility] Last Admin: 02/26/17 21:10 Dose: 10 mg Nicotine (Nicoderm Cq) 1 patch TD DAILY [facility] Last Admin: 02/27/17 09:19 Dose: 1 patch Nitroglycerin (Nitrostat Sl Tab) 0.4 mg SL Q5M PRN PRN Reason: CHEST PAIN Oxycodone/Acetaminophen (Percocet 5/325 Mg Tab) 2 tab PO Q6H PRN PRN Reason: Pain, moderate (4-7) Stop: 02/27/17 23:59 Last Admin: 02/26/17 17:37 Dose: 2 tab Rosuvastatin Calcium (Crestor) 5 mg PO [facility] Last Admin: 02/26/17 21:10 Dose: 5 mg Senna/Docusate Sodium (Senokot S 50 Mg-8.6 Mg) 1 tab PO BID [facility] Last Admin: 02/27/17 09:20 Dose: 1 tab - Labs Labs: 02/27/17 07:29 02/27/17 07:29 PT 22.5 SECONDS (9.7-12.2) H 02/22/17 06:18 INR 2.0 02/22/17 06:18 APTT 37 SECONDS (21-34) H D 02/22/17 06:18 - Constitutional Appears: Well, Non-toxic, No Acute Distress - Head Exam Head Exam: ATRAUMATIC, NORMAL INSPECTION - Eye Exam Eye Exam: Normal appearance - Respiratory Exam Respiratory Exam: Decreased Breath Sounds. absent: Rales, Rhonchi, Wheezes - Cardiovascular Exam Cardiovascular Exam: +S1, +S2 - Neurological Exam Neurological Exam: Alert, Awake, Oriented x3 - Skin Skin Exam: Dry, Intact, Warm Assessment and Plan (1) Sleep apnea Assessment & Plan: Patient refusing Sleep study Patient is refusing CPAP continue with nebulizer treatments Status: Chronic (2) Splenic hemorrhage Status: Acute
[2017-02-27] MEDS: HYDROmorphone 1 mg/ml ISec IVP PRN (10:00)
--- NOTE | 2017-02-27 14:00 | CP.PCM.PN ---
Subjective - Date & Time of Evaluation Date of Evaluation: 02/27/17 Time of Evaluation: 13:52 - Subjective Subjective: PGY-[address] Ocampo's service Pt seen and examined at bedside. Pt continues to complain of some sob and some mild abdominal pain, but he reports the pain to be getting better. He also reports sleeping better now that he has a recliner. Denies fevers, chills, chest pain, sob, nausea or vomiting. Objective - Vital Signs/Intake and Output Vital Signs (last 24 hours): Temp Pulse Resp BP Pulse Ox 97.5 F L 88 18 133/91 H 95 02/27/17 08:00 02/27/17 08:00 02/27/17 08:00 02/27/17 09:17 02/27/17 08:00 - Medications Medications: Current Medications Albuterol (Ventolin Hfa 90 Mcg/Actuation (8 G)) 1 puff INH RBID PRN PRN Reason: Wheezing Albuterol/Ipratropium (Duoneb 3 Mg/0.5 Mg (3 Ml) Ud) 3 ml INH RQ6 [facility] Last Admin: 02/27/17 13:19 Dose: 3 ml Alprazolam (Xanax) 1 mg PO TID PRN PRN Reason: .anxiety Last Admin: 02/27/17 05:55 Dose: 1 mg Carvedilol (Coreg) 12.5 mg PO BID [facility] Last Admin: 02/27/17 09:17 Dose: 12.5 mg Cyclobenzaprine HCl (Flexeril) 10 mg PO HS [facility] Last Admin: 02/26/17 21:10 Dose: 10 mg Digoxin (Lanoxin) 0.125 mg PO 1800 [facility] Last Admin: 02/26/17 17:38 Dose: 0.125 mg Diltiazem HCl (Cardizem) 30 mg PO QID [facility] Last Admin: 02/27/17 13:12 Dose: 30 mg Famotidine (Pepcid) 20 mg PO DAILY [facility] Last Admin: 02/27/17 09:20 Dose: 20 mg Fluoxetine HCl (Prozac) 30 mg PO DAILY [facility] Last Admin: 02/27/17 09:20 Dose: 30 mg Furosemide (Lasix) 40 mg IVP DAILY [facility] Last Admin: 02/27/17 09:17 Dose: 40 mg Gabapentin (Neurontin) 300 mg PO BID [facility] Last Admin: 02/27/17 09:19 Dose: 300 mg Hydromorphone HCl (Dilaudid) 1 mg IVP Q4H PRN PRN Reason: Pain, moderate (4-7) Last Admin: 02/27/17 10:00 Dose: 1 mg Hydromorphone HCl (Dilaudid) 2 mg IVP Q8H PRN PRN Reason: Pain, severe (8-10) Last Admin: 02/27/17 05:55 Dose: 2 mg Piperacillin Sod/Tazobactam Sod (Zosyn 3.375 Gm Iv Premix) 50 mls @ 100 mls/hr IVPB Q6H [facility] Last Admin: 02/27/17 10:14 Dose: 100 mls/hr Vancomycin/Sodium Chloride (Vancocin) 200 mls @ 133 mls/hr IVPB Q12H [facility] Stop: 03/02/17 20:01 Last Admin: 02/27/17 09:00 Dose: 133 mls/hr Ibuprofen (Motrin Tab) 800 mg PO TID PRN PRN Reason: Pain, moderate (4-7) Last Admin: 02/27/17 09:09 Dose: 800 mg Insulin Aspart (Novolog) 0 unit SC [facility] PRN Reason: Protocol Methylprednisolone (Solu-Medrol) 40 mg IVP Q12H [facility] Last Admin: 02/27/17 09:00 Dose: 40 mg Montelukast Sodium (Singulair) 10 mg PO [facility] Last Admin: 02/26/17 21:10 Dose: 10 mg Nicotine (Nicoderm Cq) 1 patch TD DAILY [facility] Last Admin: 02/27/17 09:19 Dose: 1 patch Nitroglycerin (Nitrostat Sl Tab) 0.4 mg SL Q5M PRN PRN Reason: CHEST PAIN Oxycodone/Acetaminophen (Percocet 5/325 Mg Tab) 2 tab PO Q6H PRN PRN Reason: Pain, moderate (4-7) Stop: 02/27/17 23:59 Last Admin: 02/26/17 17:37 Dose: 2 tab Rosuvastatin Calcium (Crestor) 5 mg PO [facility] Last Admin: 02/26/17 21:10 Dose: 5 mg Senna/Docusate Sodium (Senokot S 50 Mg-8.6 Mg) 1 tab PO BID [facility] Last Admin: 02/27/17 09:20 Dose: 1 tab - Labs Labs: 02/27/17 07:29 02/27/17 07:29 PT 22.5 SECONDS (9.7-12.2) H 02/22/17 06:18 INR 2.0 02/22/17 06:18 APTT 37 SECONDS (21-34) H D 02/22/17 06:18 - Constitutional Appears: Non-toxic, No Acute Distress, Chronically Ill - Head Exam Head Exam: ATRAUMATIC, NORMOCEPHALIC - ENT Exam ENT Exam: Mucous Membranes Moist - Respiratory Exam Respiratory Exam: Rhonchi, NORMAL BREATHING PATTERN - Cardiovascular Exam Cardiovascular Exam: +S1, +S2 - GI/Abdominal Exam GI & Abdominal Exam: Soft, Normal Bowel Sounds - Neurological Exam Neurological Exam: Alert, Awake - Skin Skin Exam: Dry, Warm Assessment and Plan - Assessment and Plan (Free Text) Assessment: Splenic hematoma - Stable - Surgery following (P[place]ish) - help appreciated - No surgical intervention at this time. - Hgb stable, continue to monitor and transfuse if necessary - Still with diffuse abdominal pain - Patient was on Coumadin for A. fib and aspirin for CAD. Reversed Coumadin with vitamin K and 1 unit of FFP. Reversed aspirin with DDAVP and 1 unit of platelets. Abdominal pain - secondary to splenic hematoma - as above Leukosytosis - Stable, afebrile, looks clinically improved, pt receiving solumedrol 40mg q12h - Blood cs 02/25 - no growth after 24 hours - Blood cx 02/22 - positive for staph A x1 - may be contaminate - Tmax 98.3 overnight - Zosyn started 02/22 - ID consulted (Yas) - help appreciated - Started vancomycin 02/25 - consider PILY to r/o endocarditis Hyperglycemia - no hx of DM - likely secondary to steroids - Medium ISS - Accuchecks A fib - Holding anticoagulation secondary to splenic hematoma - Digoxin (Lanoxin) 0.125 mg PO DAILY [facility] - Carvedilol 12.5 mg PO BID - Rate controlled Hx of systolic heart failure - Echo 02/25 - EF of 43% - awaiting official read - Start Home lasix - 40mg daily Hx of HTN - Carvedilol 12.5 mg PO BID - Diltiazem 30 mg PO QID [facility] - Nitroglycerin 0.4 mg SL Q5M PRN Hx of CAD - Rosuvastatin Calcium (Crestor) 5 mg PO HS [facility] Hx of COPD - Albuterol (Ventolin Hfa 90 Mcg/Actuation (8 G)) 1 puff INH RBID PRN - Montelukast Sodium (Singulair) 10 mg PO HS [facility] Constipation - Senna/Docusate Sodium (Senokot S 50 Mg-8.6 Mg) 1 tab PO BID [facility] Hx of bipolar/depression - Alprazolam (Xanax) 1 mg PO TID PRN - Fluoxetine HCl (Prozac) 30 mg PO DAILY [facility] PPx - Pepcid - VTE pharmacotherapy ppx contraindicated with splenic hematoma
--- NOTE | 2017-02-27 15:42 | CP.PCM.DIS ---
Provider - Provider Date of Admission: 02/21/17 11:57 Attending physician: Roque Ocampo Jr, MD Primary care physician: devin Consults: MANUELA-Yas Hernandez Surgery-[place] [facility] Time Spent in preparation of Discharge (in minutes): 31 Hospital Course - Lab Results Lab Results: Micro Results 02/22/17 09:56 Blood-Venous Blood Culture - Final NO GROWTH AFTER 5 DAYS 02/22/17 09:56 Blood-Venous Gram Stain - Final 02/25/17 20:00 Blood-Venous Blood Culture - Preliminary NO GROWTH AFTER 24 HOURS 02/25/17 19:00 Blood-Venous Blood Culture - Preliminary NO GROWTH AFTER 24 HOURS 02/25/17 07:53 Nose MRSA Culture - Final MRSA DETECTED 02/22/17 09:56 Blood-Venous S.aureus & Coag-Neg Staph PNA FISH - Final 02/22/17 09:56 Blood-Venous Blood Culture - Final Methicillin Resistant S Aureus 02/22/17 09:56 Blood-Venous Gram Stain - Final 02/21/17 16:30 Nose MRSA Culture (Admit) - Final MRSA DETECTED Most Recent Lab Values WBC 25.0 K/uL (4.8-10.8) H 02/27/17 07:29 RBC 4.33 Mil/uL (4.40-5.90) L 02/27/17 07:29 Hgb 11.5 g/dL (12.0-18.0) L 02/27/17 07:29 Hct 36.4 % (35.0-51.0) 02/27/17 07:29 MCV 84.2 fL (80.0-94.0) 02/27/17 07:29 MCH 26.5 pg (27.0-31.0) L 02/27/17 07:29 MCHC 31.5 g/dL (33.0-37.0) L 02/27/17 07:29 RDW 15.1 % (11.5-14.5) H 02/27/17 07:29 Plt Count 398 K/uL (130-400) 02/27/17 07:29 MPV 8.0 fL (7.2-11.7) 02/27/17 07:29 Neut % (Auto) 88.8 % (50.0-75.0) H 02/27/17 07:29 Lymph % (Auto) 3.0 % (20.0-40.0) L 02/27/17 07:29 [place] % (Auto) 8.1 % (0.0-10.0) 02/27/17 07:29 Eos % (Auto) 0.0 % (0.0-4.0) 02/27/17 07:29 Baso % (Auto) 0.1 % (0.0-2.0) 02/27/17 07:29 Neut # 22.2 K/uL (1.8-7.0) H 02/27/17 07:29 Lymph # 0.7 K/uL (1.0-4.3) L 02/27/17 07:29 [place] # 2.0 K/uL (0.0-0.8) H 02/27/17 07:29 Eos # 0.0 K/uL (0.0-0.7) 02/27/17 07:29 Baso # 0.0 K/uL (0.0-0.2) 02/27/17 07:29 Neutrophils % (Manual) 85 % (50-75) H 02/27/17 07:29 Band Neutrophils % 4 % (0-2) H 02/27/17 07:29 Lymphocytes % (Manual) 4 % (20-40) L 02/27/17 07:29 Monocytes % (Manual) 7 % (0-10) 02/27/17 07:29 Eosinophils % (Manual) 1 % (0-4) 02/25/17 19:49 Differential Comment 02/22/17 06:18 Platelet Estimate Normal (NORMAL) 02/27/17 07:29 Large Platelets Present 02/21/17 08:52 Polychromasia Slight 02/26/17 06:50 Hypochromasia (manual) Slight 02/27/17 07:29 Poikilocytosis (manual Slight 02/27/17 07:29 Anisocytosis (manual) Slight 02/27/17 07:29 Tear Drop Cells Slight 02/23/17 06:34 PT 22.5 SECONDS (9.7-12.2) H 02/22/17 06:18 INR 2.0 02/22/17 06:18 APTT 37 SECONDS (21-34) H D 02/22/17 06:18 Puncture Site Rr 03/30/17 11:02 pCO2 40 mm/Hg (35-45) 02/26/17 11:02 pO2 80 mm/Hg (80-100) 02/26/17 11:02 HCO3 25.9 mmol/L (21-28) 02/26/17 11:02 ABG pH 7.42 (7.35-7.45) 02/26/17 11:02 ABG Total CO2 27.1 mmol/L (22-28) 02/26/17 11:02 ABG O2 Saturation 98.9 % (95-98) H 02/26/17 11:02 ABG Base Excess 1.3 mmol/L (-2.0-3.0) 02/26/17 11:02 Deepak Test Pos 02/26/17 11:02 ABG Potassium 3.8 mmol/L (3.6-5.2) 02/26/17 11:02 A-a O2 Difference 84.0 mm/Hg 02/26/17 11:02 Respiratory Index 1.1 02/26/17 11:02 Sodium 136.0 mmol/l (132-148) 02/26/17 11:02 Chloride 103.0 mmol/L (98-107) 02/26/17 11:02 Glucose 189 mg/dl (75-110) H 02/26/17 11:02 Lactate 2.5 mmol/L (0.7-2.1) H 02/26/17 11:02 Liter Flow 3.0 02/26/17 11:02 FiO2 30.0 % 02/26/17 11:02 Sodium 137 mmol/L (132-148) 02/27/17 07:29 Potassium 4.7 mmol/L (3.6-5.2) 02/27/17 07:29 Chloride 88 mmol/L (98-107) L 02/27/17 07:29 Carbon Dioxide 34 mmol/L (22-30) H 02/27/17 07:29 Anion Gap 20 (10-20) 02/27/17 07:29 BUN 26 mg/dL (9-20) H 02/27/17 07:29 Creatinine 0.8 MG/DL (0.8-1.5) 02/27/17 07:29 Est GFR ( Amer) > 60 02/27/17 07:29 Est GFR (Non-Af Amer) > 60 02/27/17 07:29 POC Glucose (mg/dL) 324 mg/dL (65-110) H 02/27/17 11:36 Random Glucose 250 mg/dL (75-110) H 02/27/17 07:29 Lactic Acid 2.1 mmol/L (0.7-2.1) 02/26/17 15:12 Calcium 8.8 mg/dl (8.6-10.4) 02/27/17 07:29 Phosphorus 3.6 mg/dL (2.5-4.5) 02/27/17 07:29 Magnesium 2.1 mg/dL (1.6-2.3) 02/27/17 07:29 Total Bilirubin 0.9 mg/dL (0.2-1.3) 02/27/17 07:29 AST 29 U/L (17-59) 02/27/17 07:29 ALT 20 U/L (21-72) L D 02/27/17 07:29 Alkaline Phosphatase 106 U/L (38-126) 02/27/17 07:29 Total Creatine Kinase 217 U/L (55-170) H 02/21/17 08:52 CK-MB (Mass) 6.46 ng/mL (0.0-3.38) H 02/21/17 08:52 Troponin I 0.0870 ng/mL (0.00-0.120) 02/21/17 08:52 NT-Pro-B Natriuret Pep 4710 pg/mL (0-450) H 02/21/17 08:52 Total Protein 7.7 g/dL (6.3-8.3) 02/27/17 07:29 Albumin 3.6 g/dL (3.5-5.0) 02/27/17 07:29 Globulin 4.2 gm/dL (2.2-3.9) H 02/27/17 07:29 Albumin/Globulin Ratio 0.9 (1.0-2.1) L 02/27/17 07:29 Procalcitonin 0.92 NG/ML (0.19-0.49) H 02/25/17 19:50 Arterial Blood Potassium 3.8 mmol/L (3.6-5.2) 02/26/17 11:02 Urine Color Triny (YELLOW) 02/24/17 06:30 Urine Clarity Hazy (Clear) 02/24/17 06:30 Urine pH 5.0 (5.0-8.0) 02/24/17 06:30 Ur Specific [place] 1.019 (1.003-1.030) 02/24/17 06:30 Urine Protein 1+ mg/dL (NEGATIVE) H 02/24/17 06:30 Urine Glucose (UA) Normal mg/dL (Normal) 02/24/17 06:30 Urine Ketones Negative mg/dL (NEGATIVE) 02/24/17 06:30 Urine Blood Negative (NEGATIVE) 02/24/17 06:30 Urine Nitrate Negative (NEGATIVE) 02/24/17 06:30 Urine Bilirubin Negative (NEGATIVE) 02/24/17 06:30 Urine Urobilinogen 2.0 mg/dL (0.2-1.0) 02/24/17 06:30 Ur Leukocyte Esterase Neg Nancie/uL (Negative) 02/24/17 06:30 Urine WBC (Auto) 4 /hpf (0-5) 02/24/17 06:30 Urine RBC (Auto) 1 /hpf (0-3) 02/24/17 06:30 Ur Squamous Epith Cells < 1 /hpf (0-5) 02/24/17 06:30 Hyaline Casts >20 /lpf (0-2) H 02/21/17 11:42 Vancomycin Trough 8.1 ug/mL (5.0-10.0) 02/27/17 07:29 Digoxin < 0.4 ng/mL (0.8-2.0) L 02/21/17 09:04 Urine Opiates Screen Positive (NEGATIVE) 02/21/17 11:42 Urine Methadone Screen Negative (NEGATIVE) 02/21/17 11:42 Ur Barbiturates Screen Negative (NEGATIVE) 02/21/17 11:42 Ur Phencyclidine Scrn Positive (NEGATIVE) 02/21/17 11:42 Ur Amphetamines Screen Negative (NEGATIVE) 02/21/17 11:42 U Benzodiazepines Scrn Negative (NEGATIVE) 02/21/17 11:42 U Oth Cocaine Metabols Positive (NEGATIVE) 02/21/17 11:42 U Cannabinoids Screen Negative (NEGATIVE) 02/21/17 11:42 Blood Type O POSITIVE 02/21/17 12:41 Blood Type Confirm O POSITIVE 02/21/17 12:41 Antibody Screen Negative 02/21/17 12:41 - Hospital Course Hospital Course: On hospital admission 46yo M w/ hx of HTN, CAD, CHF, Afib on coumadin, COPD, ARLENE, Bipolar d/o, Chronic back pain d/t herniated discs, presenting w/ LUQ abdominal pain radiating to the back since 4am this morning. Pt states that approx. 1 month ago he fell while at another hospital and developed some LUQ discomfort. He states he began feeling dizzy and worsening of the pain a few days ago so he went to [facility] [place]. Pt states a CT showed "a clot in my spleen" but he was told this would resolve and nothing more needed to be done. Pt states his pain improved over the past few days. He saw Dr. Ocampo in office and at that time the pain was better, however this morning he woke up around 4am with severe LUQ pain radiating to the back. Pt describes the pain as sharp, severe, similar to pain he experienced when he had appendicitis. He had associated nausea and 1 episode vomiting, non-bloody/non-bilious. Pt also admits to constipation. He denies any Fevers/Chills, SOB/CP, Diarrhea. On hospital course Pt was admitted to the ICU after being found to have a splenic hematoma. Surgery was consulted and recommended no surgical intervention at this time as pt was hemodynamically stable with no acute blood loss. Pt was on Coumadin for A. fib and aspirin for CAD. Reversed Coumadin with vitamin K and 1 unit of FFP. Reversed aspirin with DDAVP and 1 unit of platelets. Pt was then transferred out of the ICU. Pt had leukocytosis in the presence of IV steroids, and ID was consulted. Blood cultures were obtained and one vial was positive for MRSA ( questionable contamination) and the pt was started on vancomycin. Pt was extremely disruptive on the floors and at time belligerent, threatening the staff and several Code Alyssa were called. Pt had blood cultures redrawn and and were negative after 24 hours when the pt decided that he wanted to leave AMA. All risks of leaving AMA were explained the pt and he was given time for any questions. He was discharged with a [facility] and instructions to follow up with Dr Ocampo as soon as he is able. Diagnoses Splenic hematoma Leukosytosis Hyperglycemia A fib Chronic systolic heart failure Hypertension Coronary artery disease COPD Bipolar disorder - Date & Time of H&P Date of H&P: 02/22/17 Time of H&P: 07:58 Discharge Exam - Head Exam Head Exam: ATRAUMATIC, NORMOCEPHALIC - Respiratory Exam Respiratory Exam: Rhonchi, NORMAL BREATHING PATTERN - Cardiovascular Exam Cardiovascular Exam: +S1, +S2 - GI/Abdominal Exam GI & Abdominal Exam: Distended, Normal Bowel Sounds, Tenderness - Neurological Exam Neurological exam: Alert, Oriented x3 - Skin Skin Exam: Dry, Warm Discharge Plan - Discharge Medications Prescriptions: Ciprofloxacin HCl [Cipro] 500 mg PO BID #28 tablet Methylprednisolone [Medrol Dose Pack (21 tabs)] 4 mg PO DAILY #21 mg - Follow Up Plan Condition: SERIOUS Disposition: AGAINST MEDICAL ADVICE
[2017-02-27] MEDS ORDERED: (Novolog) Insulin Aspart, Recombinant 100 u/ml 10 ml vial SC SCH (16:30)
--- NOTE | 2017-03-02 22:11 | CARD ---
APPROVED REPORT EKG Measurement Heart [id number] <Conclusion> Atrial fibrillation with premature ventricular or aberrantly conducted complexes Pulmonary disease pattern Left anterior fascicular block Possible Inferior infarct, age undetermined ST & T wave abnormality, consider anterolateral ischemia Abnormal ECG
--- NOTE | 2017-03-02 22:18 | CARD ---
APPROVED REPORT EKG Measurement Heart [id number] <Conclusion> Atrial fibrillation Pulmonary disease pattern Incomplete right bundle branch block Left anterior fascicular block Possible Inferior infarct, age undetermined ST & T wave abnormality, consider anterolateral ischemia Abnormal ECG
[2017-03-06 12:34] VITALS: O2SAT 98
== END 2017-02-27 15:00 | disposition left against medical advice (07) | DRG 815 ==
LOC: C.ER 08:14 → C.9E 11:57 → C.9I 13:30 → C.5T 02-25 08:08
PROVIDERS: ADMIT Internal Medicine; ATTEND Internal Medicine
PROC: 30233K1 Transfusion of Nonautologous Frozen Plasma into Peripheral Vein, Percutaneous Approach (ICD-10-PCS; principal; 2017-02-21)
DX: D73.5 Infarction of spleen (principal); I25.110 Atherosclerotic heart disease of native coronary artery with unstable angina pectoris; I11.0 Hypertensive heart disease with heart failure; I50.22 Chronic systolic (congestive) heart failure; I48.91 Unspecified atrial fibrillation; F31.9 Bipolar disorder, unspecified; F41.9 Anxiety disorder, unspecified; J45.909 Unspecified asthma, uncomplicated; J43.9 Emphysema, unspecified; E78.00 Pure hypercholesterolemia, unspecified; Z95.5 Presence of coronary angioplasty implant and graft; Z79.01 Long term (current) use of anticoagulants; Z87.891 Personal history of nicotine dependence; R41.82 Altered mental status, unspecified; M51.36 Other intervertebral disc degeneration, lumbar region; G47.33 Obstructive sleep apnea (adult) (pediatric); K59.00 Constipation, unspecified; D72.829 Elevated white blood cell count, unspecified; R73.9 Hyperglycemia, unspecified

== ENCOUNTER 2017-03-05 09:21 | Inpatient (IN) | payer MEDICARE, MEDICAID ==
[2017-03-05 09:21] VITALS: BMI 39.0
--- NOTE | 2017-03-05 09:35 | C.PDOC ---
History Of Present Illness Pt is a 46 yr old male with PMHx of CHF, HTN, AFib, cardiac stents and high cholesterol brought in via BLS, presents to the ER for SOB and abdominal pain since last night. Patient states he feels SOB due to his abdominal pain. Patient states he was in ED last week and was told he has 2 clots in his spleen on the left side and has fluid in his stomach, was admitted to ICU and was told to stop his Coumadin (chart review shows that the patient had a splenic hematoma ). Patient states he signed himself out AMA and was given prescriptions for Cipro and methylprednisolone. Patient states he started the Coumadin and aspirin again 4 days ago. Patient denies fever, nausea, vomiting, dysuria, incontinence, weakness or numbness. PMD: Dr. Roque Ocampo Time Seen by Provider: 03/05/17 09:26 Chief Complaint (Nursing): Abdominal Pain History Per: Patient History/Exam Limitations: no limitations Onset/Duration Of Symptoms: Days (1) Current Symptoms Are (Timing): Still Present Severity: None Past Medical History Reviewed: Historical Data, Nursing Documentation, Vital Signs Vital Signs: Last Vital Signs Temp 99.1 F 03/09/17 07:00 Pulse 93 H 03/09/17 07:00 Resp 20 03/09/17 07:00 BP 122/70 03/09/17 07:00 Pulse Ox 92 L 03/09/17 07:00 - Medical History PMH: Anxiety, Asthma, Atrial Fibrillation, Back Problems (Chronic), Bipolar Disorder, CAD, Cardia Arrhythmia, CHF, COPD, Depression, Emphysema, HTN, Hypercholesterolemia, Peripheral Edema, Sleep Apnea (not on cpap/has had sleep studies), Chronic Pain (Lower Back Pain) Surgical History: Appendectomy (2008), Coronary Stent (2008 - 2012 4 stents) - [facility] Procedures CORONAR ARTERIOGR-2 CATH (07/06/13) INJECT/INFUSE NEC (02/22/14) LEFT HEART CARDIAC CATH (07/06/13) LT HEART ANGIOCARDIOGRAM (07/06/13) NEBULIZER THERAPY (03/28/14) NON-INVASIVE MECHANICAL VENTILATION (03/26/15) TRANSFUSE NONAUT FROZEN PLASMA IN PERIPH VEIN, PERC (02/21/17) Family History: States: CAD, Diabetes Other Family History: Heart disease - Social History Hx Tobacco Use: Yes Hx Alcohol Use: No Hx Substance Use: Yes (Cocaine) - Immunization History Hx Tetanus Toxoid Vaccination: Yes Hx Influenza Vaccination: Yes Hx Pneumococcal Vaccination: Yes (08/2014) Review Of Systems Except As Marked, All Systems Reviewed And Found Negative. Constitutional: Negative for: Fever Respiratory: Positive for: Shortness of Breath Gastrointestinal: Positive for: Abdominal Pain. Negative for: Nausea, Vomiting Genitourinary: Negative for: Dysuria, Incontinence Neurological: Negative for: Weakness, Numbness Physical Exam - Physical Exam Appears: Non-toxic, In Acute Distress Skin: Warm, Dry, No Rash Head: Atraumatic, Normacephalic Eye(s): bilateral: Normal Inspection, EOMI Ear(s): Bilateral: Normal Nose: Normal Oral Mucosa: Moist Tongue: Normal Appearing Teeth: Normal Dentition Throat: Normal Neck: Normal, Normal ROM, Supple Chest: Symmetrical, No Tenderness Cardiovascular: Rhythm Irregular, No Murmur Respiratory: Decreased Breath Sounds (Bilateral at bases), No Rales, No Rhonchi , No Stridor, No Wheezing Gastrointestinal/Abdominal: Tenderness (LUQ), No Mass, Guarding, No Rebound, Ascites, Other ((+) Firm) Rectal: Deferred Back: Normal Inspection Extremity: Pedal Edema (Mild pitting edema to the lower extremities), No Calf Tenderness, No Deformity Neurological/Psych: Oriented x3, Normal Speech, Normal Motor ED Course And Treatment - Laboratory Results Result Diagrams: 03/08/17 12:28 03/08/17 07:15 ECG: Interpreted By Me, Viewed By De ECG Rhythm: Atrial Fibrillation ECG Interpretation: Abnormal Interpretation Of ECG: Left axis deviation. ST & T wave abnormalities. ST depressions. AFib with RVR. Rate From EC (BPM ) O2 Sat by Pulse Oximetry: 100 (RA ) Pulse Ox Interpretation: Normal - Other Rad CXR X-Ray: Viewed By Me, Read By Radiologist Interpretation: PROCEDURE: CHEST RADIOGRAPH, 1 VIEW. HISTORY: SOB. COMPARISON: 02/22/2017. FINDINGS: LUNGS: Moderate venous congestion with patchy increased markings at the left lung base. Question small left pleural effusion. PLEURA: As above. CARDIOVASCULAR: Cardiomegaly. OSSEOUS STRUCTURES: Degenerative changes in the spine and shoulders. VISUALIZED UPPER ABDOMEN: Normal. OTHER FINDINGS: None. IMPRESSION: Moderate venous congestion with patchy increased markings at the left lung base. Question small left pleural effusion. - CT Scan/US CT - Abd & Pelvis Other Rad Studies (CT/US): Read By Radiologist, Radiology Report Reviewed CT/US Interpretation: PROCEDURE: CT Abdomen and Pelvis with contrast. HISTORY : Restarted coumadin; abd pain; r/o splenic hematoma. COMPARISON: CT of the abdomen and pelvis without contrast performed 02/22/17. TECHNIQUE: Contrast dose: 100 mL Visipaque. Radiation dose: Total exam DLP = 1189.09 mGy-cm. This CT exam was performed using one or more of the following dose reduction techniques: Automated exposure control, adjustment of the mA and/or kV according to patient size, and/or use of iterative reconstruction technique. FINDINGS: LOWER THORAX: Left lower lobe atelectasis or pneumonia. Small left pleural effusion, possibly loculated. No visible pneumothorax. Partially imaged cardiomegaly. Small pericardial effusion. Dense coronary artery calcifications. LIVER: Hepatomegaly. Small fluid adjacent to the inferior tip , right hepatic lobe. GALLBLADDER AND BILE DUCTS: Unremarkable. PANCREAS: Unremarkable. SPLEEN: Irregular splenic contour. Heterogeneous appearance of the spleen compatible with large subcapsular hematoma. Fluid noted in the left pericolic gutter. Perisplenic inflammatory stranding. Extending inferiorly from the spleen is an elliptical shaped 14.8 x 6.3 cm collection consistent with seroma. ADRENALS: Unremarkable. KIDNEYS AND URETERS: The kidneys enhance symmetrically. No hydronephrosis or obstructing calculus identified. VASCULATURE: No aortic aneurysm. BOWEL: The stomach is nondistended. Lack of oral contrast limits evaluation for bowel pathology. Bowel loops appear within normal limits of caliber without evidence of obstruction. APPENDIX: Not identified. No secondary signs of acute appendicitis. PERITONEUM: Small pelvic free fluid. No definite free air. LYMPH NODES: Scattered sub cm mesenteric lymph nodes, nonspecific. Prominent bilateral inguinal lymph nodes, nonspecific. BLADDER: Unremarkable. REPRODUCTIVE: The prostate gland measures approximately 3.3 x 4.2 cm and contains coarse calcifications. BONES: Multilevel degenerative change line. L1-L2 and L4-L5 vacuum disc phenomenon. OTHER FINDINGS: Fat containing umbilical hernia. IMPRESSION: Irregular splenic contour. Heterogeneous appearance of the spleen compatible with large subcapsular hematoma. Fluid noted in the left pericolic gutter. Perisplenic inflammatory stranding. Extending inferiorly from the spleen is an elliptical shaped 14.8 x 6.3 cm collection consistent with seroma. Hepatomegaly. Small pelvic free fluid. Left lower lobe atelectasis or pneumonia. Small left pleural effusion, possibly loculated. Additional findings as above. Critical Care Time - Critical Care Note Total Time (in mins): 40 Documented critical care: time excludes all time spent performing seperately billable procedures. Medical Decision Making Medical Decision Making: INITIAL IMPRESSION: 1) Abdominal pain--possible recurrence/worsening of splenic hematoma 2) Afib with rapid ventricular rate INITIAL PLAN: * CT - Abd & Pelvis * CXR * EKG * VBG * Troponin * CBC * Urinalysis * Albuterol INH * Xanax PO (has underlying anxiety) * Cardizem IVP * Lasix IVP * Dilaudid IVP * Lopressor IVP if Cardizem doesn't slow down the afib rate * Sodium Chloride IV NOTE: * 0944 - HR: 160. O2: 100. BP: 174/112. * 1033 - Carizem bolus and Lasix given. BP: 129/97. * Cardizem was ineffective for the RVR (of his afib) but lopressor controlled rate 2:07 PM--Admission endorsed to Dr. Renzo Razo (covering for Dr. Ocampo). Will get cardiology consult with Dr. Morgan (requested earlier by Dr. Ocampo). I will also consult Dr. Senior. Disposition - Disposition Disposition: HOSPITALIZED Disposition Time: 13:58 Condition: SERIOUS - Clinical Impression Clinical Impression: Atrial fibrillation with rapid ventricular response, Spleen hematoma - Scribe Statement The provider has reviewed the documentation as recorded by the Galindo Cervantes Provider Attestation: All medical record entries made by the Galindo were at my direction and personally dictated by me. I have reviewed the chart and agree that the record accurately reflects my personal performance of the history, physical exam, medical decision making, and the department course for this patient. I have also personally directed, reviewed, and agree with the discharge instructions and disposition. Decision To Admit - Pt Status Changed To: Hospital Disposition Of: Inpatient - Admit Certification Admit to Inpatient:: After my assessment, the patient will require hospitalization for at least two midnights. This is because of the severity of symptoms shown, intensity of services needed, and/or the medical risk in this patient being treated as an outpatient. - InPatient: Physician Admission Certification:: Pt with a-fib with RVR and splenic hematoma - . Bed Request Type: Telemetry Admitting Physician: Annetta Razo Patient Diagnosis: Atrial fibrillation with rapid ventricular response, Spleen hematoma
[2017-03-05] MEDS ORDERED: Albuterol-Ipratrop 3 mg / 0.5 (3 ml) UD INH STA (09:36)
[2017-03-05] MEDS ORDERED: Albuterol-Ipratrop 3 mg / 0.5 (3 ml) UD ONE (09:59)
[2017-03-05 10:04] LABS: BASO % 0.1 % (0.0-2.0); EOS # 0.1 K/uL (0.0-0.7); EOS % 0.6 % (0.0-4.0); HEMATOCRIT 37.5 % (35.0-51.0); LYMPH # 1.5 K/uL (1.0-4.3); LYMPH % 6.5 % (20.0-40.0); MEAN CELL VOLUME 83.8 fL (80.0-94.0); MEAN CORPUSCULAR HEMOGLOBIN 26.9 pg (27.0-31.0); MEAN CORPUSCULAR HGB CONC 32.1 g/dL (33.0-37.0); MEAN PLATELET VOLUME 7.3 fL (7.2-11.7); MONO % 8.6 % (0.0-10.0); PLATELET COUNT 453 K/uL (130-400); WHITE BLOOD COUNT 23.2 K/uL (4.8-10.8)
[2017-03-05 10:10] LABS: VENOUS BLOOD GAS BASE EXCESS 3.7 mmol/L (0.0-2.0); VENOUS BLOOD GAS PCO2 49 mmHg (40-60); VENOUS BLOOD PH 7.39 (7.32-7.43)
[2017-03-05 10:13] LABS: CHLORIDE 95 mmol/L (98-107); SODIUM 138 mmol/L (132-148)
[2017-03-05 10:15] LABS: ALB/GLOB RATIO 0.8 (1.0-2.1); ALKALINE PHOSPHATASE 85 U/L (38-126); AST/SGOT 27 U/L (17-59); BILIRUBIN,TOTAL 0.4 mg/dL (0.2-1.3); CARBON DIOXIDE 27 mmol/L (22-30); GFR AFRICAN-AMERICAN > 60; INR 1.4; TOTAL PROTEIN 7.8 g/dL (6.3-8.3)
[2017-03-05 10:16] LABS: ALT/SGPT 25 U/L (21-72); BLOOD UREA NITROGEN 13 mg/dL (9-20); CALCIUM 8.3 mg/dl (8.6-10.4); GLUCOSE,RANDOM 127 mg/dL (75-110)
[2017-03-05] MEDS ORDERED: Digoxin 500 mcg/2ml (0.5 mg/2ml) Inj IVP ONE (10:30)
[2017-03-05] MEDS ORDERED: Digoxin 500 mcg/2ml (0.5 mg/2ml) Inj ONE (10:42)
[2017-03-05] MEDS ORDERED: HYDROmorphone 1 mg/ml ISec IVP STA (10:48)
[2017-03-05] MEDS ORDERED: Metoprolol 1 mg/ml Inj IVP STA ×3 (10:51→11:09)
--- NOTE | 2017-03-05 10:57 | RAD ---
PROCEDURE: CHEST RADIOGRAPH, 1 VIEW HISTORY: SOB COMPARISON: 02/22/2017 FINDINGS: LUNGS: Moderate venous congestion with patchy increased markings at the left lung base. Question small left pleural effusion. PLEURA: As above. CARDIOVASCULAR: Cardiomegaly. OSSEOUS STRUCTURES: Degenerative changes in the spine and shoulders. VISUALIZED UPPER ABDOMEN: Normal. OTHER FINDINGS: None. IMPRESSION: Moderate venous congestion with patchy increased markings at the left lung base. Question small left pleural effusion.
[2017-03-05] MEDS ORDERED: HYDROmorphone 1 mg/ml ISec ONE (11:00)
[2017-03-05] MEDS ORDERED: Metoprolol 1 mg/ml Inj IVP ONE ×2 (11:00→11:28)
[2017-03-05 11:03] LABS: EOSINOPHIL 1 % (0-4); NEUTROPHIL 83 % (50-75); TOTAL CELLS COUNTED 100
[2017-03-05] MEDS ORDERED: Iodixanol 320 mg/ml 150 ml Bottle IV ONE (12:10)
[2017-03-05 12:22] LABS: URINE BILIRUBIN NEGATIVE (NEGATIVE); URINE BLOOD NEGATIVE (NEGATIVE); URINE COLOR Colorless (YELLOW); URINE GLUCOSE (UA) NORMAL (Normal); URINE KETONE NEGATIVE (NEGATIVE); URINE LEUKOCYTE ESTERASE NEG Leu/uL (Negative); URINE PROTEIN NEGATIVE (NEGATIVE); URINE UROBILINOGEN NORMAL mg/dL (0.2-1.0)
--- NOTE | 2017-03-05 13:43 | CT ---
PROCEDURE: CT Abdomen and Pelvis with contrast HISTORY: Restarted coumadin; abd pain; r/o splenic hematoma COMPARISON: CT of the abdomen and pelvis without contrast performed 02/22/17 TECHNIQUE: Contrast dose: 100 mL Visipaque Radiation dose: Total exam DLP = 1189.09 mGy-cm. This CT exam was performed using one or more of the following dose reduction techniques: Automated exposure control, adjustment of the mA and/or kV according to patient size, and/or use of iterative reconstruction technique. FINDINGS: LOWER THORAX: Left lower lobe atelectasis or pneumonia. Small left pleural effusion, possibly loculated. No visible pneumothorax. Partially imaged cardiomegaly. Small pericardial effusion. Dense coronary artery calcifications. LIVER: Hepatomegaly. Small fluid adjacent to the inferior tip, right hepatic lobe. GALLBLADDER AND BILE DUCTS: Unremarkable. PANCREAS: Unremarkable. SPLEEN: Irregular splenic contour. Heterogeneous appearance of the spleen compatible with large subcapsular hematoma. Fluid noted in the left pericolic gutter. Perisplenic inflammatory stranding. Extending inferiorly from the spleen is an elliptical shaped 14.8 x 6.3 cm collection consistent with seroma. ADRENALS: Unremarkable. KIDNEYS AND URETERS: The kidneys enhance symmetrically. No hydronephrosis or obstructing calculus identified. VASCULATURE: No aortic aneurysm. BOWEL: The stomach is nondistended. Lack of oral contrast limits evaluation for bowel pathology. Bowel loops appear within normal limits of caliber without evidence of obstruction. APPENDIX: Not identified. No secondary signs of acute appendicitis. PERITONEUM: Small pelvic free fluid. No definite free air. LYMPH NODES: Scattered sub cm mesenteric lymph nodes, nonspecific. Prominent bilateral inguinal lymph nodes, nonspecific. BLADDER: Unremarkable. REPRODUCTIVE: The prostate gland measures approximately 3.3 x 4.2 cm and contains coarse calcifications. BONES: Multilevel degenerative change line. L1-L2 and L4-L5 vacuum disc phenomenon. OTHER FINDINGS: Fat containing umbilical hernia. IMPRESSION: Irregular splenic contour. Heterogeneous appearance of the spleen compatible with large subcapsular hematoma. Fluid noted in the left pericolic gutter. Perisplenic inflammatory stranding. Extending inferiorly from the spleen is an elliptical shaped 14.8 x 6.3 cm collection consistent with seroma. Hepatomegaly. Small pelvic free fluid. Left lower lobe atelectasis or pneumonia. Small left pleural effusion, possibly loculated. Additional findings as above.
--- NOTE | 2017-03-05 16:03 | CP.PCM.CON ---
History of Present Illness - History of Present Illness History of Present Illness: Vascular Surgery - Dr. Senior 46M w/ hx of HTN, CAD, CHF, Afib , COPD, ARLENE, Bipolar d/o, Chronic back pain, herniated discs, presenting w/ LUQ abdominal pain radiating to the back since 4am this morning. Patient presented to ED w/ rapid Afib. Pt signed out AMA 02/27 , patient states the reason was because he was having social issues at home. He reports ever since he signed out AMA he was taking the medications prescribed to him but he states they did not help. He reports his pain being around 4-5 when he left the hospital but today rates it as a 9/10. Patient states the pain is so severe, sharp in nature, and he has difficulty taking deep breaths. Currently patient reports headache, denies dizziness, chest pain. Denies n/v/d. Denies hematemesis/hematochezia. At this time splenic hematoma has expanded when compared to imaging done on 02/22. Patient to be admitted to ICU. PMH: HTN, CAD, CHF, Afib, COPD, ARLENE, Herniated discs L-spine, Bipolar/Depression PSH: Appendectomy (2008), Coronary stents x4 ([id number]) Review of Systems - Review of Systems Review of Systems: 12 pt ROS carried out, unremarkable, except as stated in HPI Past Patient History - Infectious Disease Hx of Infectious Diseases: None - Tetanus Immunizations Tetanus Immunization: Up to Date - Past Medical History & Family History Past Medical History?: Yes - Past Social History Smoking Status: Former Smoker - CARDIAC Hx Atrial Fibrillation: Yes Hx Cardia Arrhythmia: Yes Hx Congestive Heart Failure: Yes Hx Hypercholesterolemia: Yes Hx Hypertension: Yes Hx Peripheral Edema: Yes - PULMONARY Hx Asthma: Yes Hx Chronic Obstructive Pulmonary Disease (COPD): Yes Hx Emphysema: Yes Hx Sleep Apnea: Yes (not on cpap/has had sleep studies) - NEUROLOGICAL Hx Neurological Disorder: No - HEENT Hx HEENT Problems: No - RENAL Hx Chronic Kidney Disease: No - ENDOCRINE/METABOLIC Hx Endocrine Disorders: No - HEMATOLOGICAL/ONCOLOGICAL Hx Blood Disorders: No - INTEGUMENTARY Hx Dermatological Problems: No - MUSCULOSKELETAL/RHEUMATOLOGICAL Hx Falls: Yes - GASTROINTESTINAL Hx Gastrointestinal Disorders: No - GENITOURINARY/GYNECOLOGICAL Hx Genitourinary Disorders: No - PSYCHIATRIC Hx Anxiety: Yes Hx Bipolar Disorder: Yes Hx Depression: Yes Hx Substance Use: Yes (Cocaine) - SURGICAL HISTORY Hx Appendectomy: Yes (2008) Hx Coronary Stent: Yes (2008 - 2012 4 stents) - ANESTHESIA Hx Anesthesia: Yes Hx Anesthesia Reactions: No Hx Malignant Hyperthermia: No Meds Allergies/Adverse Reactions: Allergies Allergy/AdvReac Type Severity Reaction Status Date / Time apixaban [From Eliquis] Allergy Verified 02/21/17 08:32 clopidogrel bisulfate Allergy Verified 02/21/17 08:32 [From Plavix] enoxaparin sodium Allergy Verified 02/21/17 08:32 [From Lovenox] morphine Allergy Verified 02/21/17 08:32 Physical Exam - Head Exam Head Exam: NORMOCEPHALIC - Eye Exam Eye Exam: Normal appearance - ENT Exam ENT Exam: Mucous Membranes Moist - Respiratory Exam Additional comments: pt reports difficulty breathing 2/2 abdominal pain - Cardiovascular Exam Cardiovascular Exam: Irregular Rhythm, +S1, +S2 - GI/Abdominal Exam GI & Abdominal Exam: Distended, Guarding, Tenderness - Extremities Exam Extremities exam: Negative for: calf tenderness - Neurological Exam Neurological exam: Alert, Oriented x3 - Psychiatric Exam Psychiatric exam: Normal Mood - Skin Skin Exam: Dry, Intact, Normal Color Results - Vital Signs Recent Vital Signs: Last Vital Signs Temp 98.4 F 03/05/17 13:36 Pulse 109 H 03/05/17 14:38 Resp 32 H 03/05/17 14:38 BP 117/77 03/05/17 14:38 Pulse Ox 95 03/05/17 14:38 - Labs Result Diagrams: 03/06/17 06:31 03/06/17 06:31 - Imaging and Cardiology CT scan - abdomen Status: Image reviewed by me, Report reviewed by me Assessment & Plan - Assessment and Plan (Free Text) Assessment: 46M w/ large subcapsular splenic hematoma -Recommend IR consult for possible drainage/embolization -Hold anti-coagulation -Analgesic -F/u AM labs -Poor surgical candidate -D/w Dr. Senior
--- NOTE | 2017-03-05 16:27 | CP.PCM.CON ---
History of Present Illness - History of Present Illness History of Present Illness: 38-year-old male with past medical history of drug abuse, HTN, CAD, CHF, Afib, COPD, ARLENE, Herniated discs L-spine, Bipolar/Depression, Appendectomy (2008), Coronary stents x4 ([id number]). (02/21) presented with encapsulated splenic hemorrhage. (03/05) p/w enlarging encapsulated hemorrhage. Review of Systems - Review of Systems All systems: reviewed and no additional remarkable complaints except - Gastrointestinal Gastrointestinal: Abdominal Pain Past Patient History - Infectious Disease Hx of Infectious Diseases: None - Tetanus Immunizations Tetanus Immunization: Up to Date - Past Medical History & Family History Past Medical History?: Yes - Past Social History Smoking Status: Former Smoker - CARDIAC Hx Atrial Fibrillation: Yes Hx Cardia Arrhythmia: Yes Hx Congestive Heart Failure: Yes Hx Hypercholesterolemia: Yes Hx Hypertension: Yes Hx Peripheral Edema: Yes - PULMONARY Hx Asthma: Yes Hx Chronic Obstructive Pulmonary Disease (COPD): Yes Hx Emphysema: Yes Hx Sleep Apnea: Yes (not on cpap/has had sleep studies) - NEUROLOGICAL Hx Neurological Disorder: No - HEENT Hx HEENT Problems: No - RENAL Hx Chronic Kidney Disease: No - ENDOCRINE/METABOLIC Hx Endocrine Disorders: No - HEMATOLOGICAL/ONCOLOGICAL Hx Blood Disorders: No - INTEGUMENTARY Hx Dermatological Problems: No - MUSCULOSKELETAL/RHEUMATOLOGICAL Hx Falls: Yes - GASTROINTESTINAL Hx Gastrointestinal Disorders: No - GENITOURINARY/GYNECOLOGICAL Hx Genitourinary Disorders: No - PSYCHIATRIC Hx Anxiety: Yes Hx Bipolar Disorder: Yes Hx Depression: Yes Hx Substance Use: Yes (Cocaine) - SURGICAL HISTORY Hx Appendectomy: Yes (2008) Hx Coronary Stent: Yes (2008 - 2012 4 stents) - ANESTHESIA Hx Anesthesia: Yes Hx Anesthesia Reactions: No Hx Malignant Hyperthermia: No Meds Allergies/Adverse Reactions: Allergies Allergy/AdvReac Type Severity Reaction Status Date / Time apixaban [From Eliquis] Allergy Verified 02/21/17 08:32 clopidogrel bisulfate Allergy Verified 02/21/17 08:32 [From Plavix] enoxaparin sodium Allergy Verified 02/21/17 08:32 [From Lovenox] morphine Allergy Verified 02/21/17 08:32 Physical Exam - Head Exam Head Exam: ATRAUMATIC, NORMAL INSPECTION, NORMOCEPHALIC - Eye Exam Eye Exam: EOMI, Normal appearance, PERRL Pupil Exam: NORMAL ACCOMODATION, PERRL - Respiratory Exam Respiratory Exam: Clear to Auscultation Bilateral, NORMAL BREATHING PATTERN - Cardiovascular Exam Cardiovascular Exam: REGULAR RHYTHM - GI/Abdominal Exam GI & Abdominal Exam: Distended, Tenderness - Neurological Exam Neurological exam: Alert, CN II-XII Intact, Normal Gait, Oriented x3, Reflexes Normal - Psychiatric Exam Psychiatric exam: Normal Affect, Normal Mood Results - Vital Signs Recent Vital Signs: Last Vital Signs Temp 98.4 F 03/05/17 13:36 Pulse 109 H 03/05/17 14:38 Resp 32 H 03/05/17 14:38 BP 117/77 03/05/17 14:38 Pulse Ox 95 03/05/17 14:38 - Labs Result Diagrams: 03/05/17 09:58 03/05/17 09:58 Assessment & Plan (1) Spleen hematoma Assessment and Plan: 38-year-old male with past medical history of drug abuse, HTN, CAD, CHF, Afib, COPD, ARLENE, Herniated discs L-spine, Bipolar/Depression, Appendectomy (2008), Coronary stents x4 ([id number]). (02/21) presented with encapsulated splenic hemorrhage. (03/05) p/w enlarging encapsulated hemorrhage. Neuro: Alert and oriented 3 Pulm: No acute issues, breathing spontaneously on room air CV: Hemodynamically stable. hypertension, holding antihypertensives with possibility of ongoing bleed. Hem: No anemia from blood loss currently. patient was on Coumadin for A. fib and aspirin for CAD. Reversing Coumadin with repeat vitamin K and 1 unit FFP. Reversing aspirin with DDAVP and 1 single donor platelets. Will monitor H&H every 6 hours. Renal: No acute issues, urine output within normal limits, will monitor. Endo: No acute issues GI: Regular diet. splenic hemorrhage, patient to hopefully undergo embolization by IR, Dr. Shankar consulted. Vascular surgery - Dr. Senior following. ID: No acute issues DVT proph - anticoagulation held with current bleed, SCDs GI proph - Pepcid Code status - full code Crtical Care Time spent 35 minutes Multi-disciplinary rounds were performed with house staff, nursing, speech therapy, respiratory therapy, pharmacy and nutrition with integrated input from the primary team/attending and other consulting services. The documented time is cumulative and includes review of patient data/exams/labs/chart review and examination of the patient on rounds and throughout the day; time is exclusive of any procedures or teaching time. Status: Acute
[2017-03-05] MEDS ORDERED: Phytonadione 10 mg/ml Inj (Adult) IV STA ×2 (16:41→20:52)
[2017-03-05] MEDS ORDERED: NITROGLYCERIN 0.4 MG SL PRN (16:46)
--- NOTE | 2017-03-05 17:59 | CP.PCM.HP ---
History of Present Illness - History of Present Illness History of Present Illness: 46-year-old male patient with past medical history of CHF, hypertension, atrial fibrillation, cardiac stent and high cholesterol brought in by BLS, presented to ER for shortness of breath and abdominal pain since last night. Patient states he feels shortness of breath due to his abdominal pain. Patient was in the ER last week and was told he has 2 clot in his spleen on the law the left side and has food in the stomach. Patient was admitted to ICU and was told to stop his Coumadin, chart reviewed shows patient had a splenic hematoma. Patient states he signed himself out AMA and was given prescription for Cipro and methylprednisolone. Extend patient started Coumadin and aspirin again 4 days ago. Denies fever, nausea, vomiting, dysuria, incontinence, weakness, numbness. Present on Admission - Present on Admission Any Indicators Present on Admission: No Past Patient History - Infectious Disease Hx of Infectious Diseases: None - Tetanus Immunizations Tetanus Immunization: Up to Date - Past Medical History & Family History Past Medical History?: Yes - Past Social History Smoking Status: Former Smoker - CARDIAC Hx Atrial Fibrillation: Yes Hx Cardia Arrhythmia: Yes Hx Congestive Heart Failure: Yes Hx Hypercholesterolemia: Yes Hx Hypertension: Yes Hx Peripheral Edema: Yes - PULMONARY Hx Asthma: Yes Hx Chronic Obstructive Pulmonary Disease (COPD): Yes Hx Emphysema: Yes Hx Sleep Apnea: Yes (not on cpap/has had sleep studies) - NEUROLOGICAL Hx Neurological Disorder: No - HEENT Hx HEENT Problems: No - RENAL Hx Chronic Kidney Disease: No - ENDOCRINE/METABOLIC Hx Endocrine Disorders: No - HEMATOLOGICAL/ONCOLOGICAL Hx Blood Disorders: No - INTEGUMENTARY Hx Dermatological Problems: No - MUSCULOSKELETAL/RHEUMATOLOGICAL Hx Falls: Yes - GASTROINTESTINAL Hx Gastrointestinal Disorders: No - GENITOURINARY/GYNECOLOGICAL Hx Genitourinary Disorders: No - PSYCHIATRIC Hx Anxiety: Yes Hx Bipolar Disorder: Yes Hx Depression: Yes Hx Substance Use: Yes (Cocaine) - SURGICAL HISTORY Hx Appendectomy: Yes (2008) Hx Coronary Stent: Yes (2008 - 2012 4 stents) - ANESTHESIA Hx Anesthesia: Yes Hx Anesthesia Reactions: No Hx Malignant Hyperthermia: No Meds Allergies/Adverse Reactions: Allergies Allergy/AdvReac Type Severity Reaction Status Date / Time apixaban [From Eliquis] Allergy RASH Verified 06/25/17 10:24 clopidogrel bisulfate Allergy RASH Verified 06/25/17 10:24 [From Plavix] enoxaparin sodium Allergy RASH Verified 06/25/17 10:24 [From Lovenox] morphine Allergy RASH Verified 06/25/17 10:24 Results - Vital Signs Recent Vital Signs: Last Vital Signs Temp 102 F H 03/05/17 17:32 Pulse 97 H 03/05/17 17:32 Resp 20 03/05/17 17:32 BP 135/70 03/05/17 17:32 Pulse Ox 94 L 03/05/17 17:32 - Labs Result Diagrams: 03/13/17 11:24 03/13/17 11:24 Assessment & Plan (1) ACS (acute coronary syndrome) Status: Acute (2) ARF (acute renal failure) Status: Acute (3) Abdominal pain Status: Acute (4) Abdominal pain Status: Acute (5) Abdominal pain Status: Acute (6) Anticoagulated on Coumadin Status: Acute (7) Anxiety Status: Acute (8) Anxiety Status: Acute (9) Ascites Status: Acute (10) Atrial dysrhythmia Status: Acute (11) Back pain Status: Acute (12) Benzodiazepine abuse Status: Acute (13) Benzodiazepine dependence Status: Acute (14) CHF (congestive heart failure) Status: Acute (15) CHF (congestive heart failure) Status: Acute (16) CHF (congestive heart failure) Status: Acute (17) CHF (congestive heart failure) Status: Acute (18) CHF exacerbation Status: Acute (19) Chronic back pain Status: Acute (20) Chronic left ventricular systolic dysfunction Status: Acute (21) Chronic obstructive pulmonary disease (COPD) Status: Acute (22) Cocaine abuse Status: Acute (23) Congestive heart failure (CHF) Status: Acute (24) D-dimer, elevated Status: Acute (25) Dyspnea Status: Acute (26) Dyspnea Status: Acute (27) Edema Status: Acute (28) Elevated brain natriuretic peptide (BNP) level Status: Acute (29) Elevated troponin Status: Acute (30) Gram positive sepsis Status: Acute (31) Hypokalemia Status: Acute (32) Hypotension Status: Acute (33) Lower extremity edema Status: Acute (34) Lumbar radiculopathy Status: Acute (35) MRSA (methicillin resistant Staphylococcus aureus) infection Status: Acute (36) MRSA (methicillin resistant Staphylococcus aureus) septicemia Status: Acute (37) MRSA bacteremia Status: Acute (38) Medication refill Status: Acute (39) Narcotic dependence Status: Acute (40) Near syncope Status: Acute (41) Non-STEMI (non-ST elevated myocardial infarction) Status: Acute (42) Non-compliance Status: Acute (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 Status: Acute (44) PVD (peripheral vascular disease) Status: Acute (45) Palpitations Status: Acute (46) Pneumonia Status: Acute (47) Prophylactic measure Status: Acute (48) Pulmonary edema Status: Acute (49) Rapid atrial fibrillation Status: Acute (50) Respiratory distress Status: Acute (51) Sciatica Status: Acute (52) Shortness of breath Status: Acute (53) Skin sore Status: Acute (54) Spleen hematoma Status: Acute (55) Splenic hemorrhage Status: Acute (56) Syncope Status: Acute (57) Venous stasis dermatitis of both lower extremities Status: Acute (58) Afib Status: Chronic (59) Anxiety Status: Chronic (60) Anxiety Status: Chronic (61) Asthma Status: Chronic (62) Atrial fibrillation with rapid ventricular response Status: Chronic (63) CAD (coronary artery disease) Status: Chronic (64) Cocaine use Status: Chronic Priority: High (65) Congestive heart failure Status: Chronic (66) Degenerative disc disease, lumbar Status: Chronic (67) ETOH abuse Status: Chronic Priority: High (68) H/O heart artery stent Status: Chronic Priority: Low (69) HTN (hypertension), benign Status: Chronic (70) HTN, goal below 130/80 Status: Chronic Priority: Low (71) Hypertension Status: Chronic (72) Low back pain Status: Chronic (73) Sleep apnea Status: Chronic (74) Cellulitis Status: Suspected (75) Xanax use disorder, mild Status: Suspected (76) Chest pain Status: Resolved - Assessment and Plan (Free Text) Plan: wbc s usually high non compliant signed out and pt started taking ocumadin
[2017-03-05] MEDS ORDERED: Albuterol HFA 90 mcg/actuation (8 g) IH SCH (18:00)
--- NOTE | 2017-03-05 18:26 | CP.PCM.CON ---
History of Present Illness - History of Present Illness History of Present Illness: I was asked to see patient by Dr. Rich Razo and Dr Ocampo Patient is a 46 year old male with PMH dilated cardiomyopathy, CAD, atrial fibrillation, obesity who presents with abdominal pain and dyspnea. The patient has a history of sever LV dysfunction dating back to November 2015. He most recent was admitted in January for atrial fibrillation with rapid ventricular response and a splenic hematoma. He signed out against medical advice, however returns with progressive abdominal pain. He was found to have an enlarging splenic hematoma. The patient denies also has dyspnea on exertion. He was found to be in atrial fibrillation with rapid ventricular response. The patient was treated with beta jenny in the ER. Review of Systems - Constitutional Constitutional: absent: As Per HPI, Anorexia, Chills, Daytime Sleepiness, Excessive Sweating, Fatigue, Fever, Frequent Falls, Headache, Increased Appetite , Lethargy, Malaise, Night Sweats, Snoring, Sleep Apnea, Weight Gain, Weight Loss, Weakness, Other - EENT Eyes: absent: As Per HPI, Blind Spots, Blurred Vision, Change in Vision, Decreased Night Vision, Diplopia, Discharge, Dry Eye, Exophthalmos, Floaters, Irritation, Itchy Eyes, Loss of Peripheral Vision, Pain, Photophobia, Requires Corrective Lenses, Sees Flashes, Spots in Vision, Tunnel Vision, Other Visual Disturbances, Loss of Vision, Other Nose/Mouth/Throat: absent: As Per HPI, Epistaxis, Nasal Congestion, Nasal Discharge, Nasal Obstruction, Nasal Trauma, Nose Pain, Post Nasal Drip, Sinus Pain, Sinus Pressure, Bleeding Gums, Change in Voice, Dental Pain, Dry Mouth, Dysphagia, Halitosis, Hoarsness, Lip Swelling, Mouth Lesions, Mouth Pain, Odynophagia, Sore Throat, Throat Swelling, Tongue Swelling, Facial Pain, Neck Pain, Neck Mass, Other - Cardiovascular Cardiovascular: Dyspnea, Dyspnea on Exertion, Edema - Respiratory Respiratory: Dyspnea - Gastrointestinal Gastrointestinal: Abdominal Pain - Genitourinary Genitourinary: absent: As Per HPI, Change in Urinary Stream, Difficulty Urinating, Dysuria, Flank Pain, Hematuria, Pyuria, Nocturia, Urinary Incontinence, Urinary Frequency, Urinary Hesitance, Urinary Urgency, Voiding Freq/Small Amts, Freq UTI, Hx Renal/Bladder Calculi, Hx /Renal Surgery, Bladder Distension, Other - Musculoskeletal Musculoskeletal: absent: As Per HPI, Abnormal Gait, Arthralgias, Atrophy, Back Pain, Deformity, Joint Swelling, Limited Range of Motion, Loss of Height, Muscle Cramps, Muscle Weakness, Myalgias, Neck Pain, Numbness, Radiating Pain into Limb, Stiffness, Tingling, Other - Integumentary Integumentary: absent: As Per HPI, Acne, Alopecia, Bleeding Lesions, Change in Hair, Change in Nails, Change in Pigmentation, Changing Lesions, Dry Skin, Erythema, Furuncle, Hirsutism, Lesions, New Lesions, Non-Healing Lesions, Photosensitivity, Pruritus, Rash, Skin Pain, Skin Ulcer, Sores, Striae, Swelling , Unusual Bruising, Wounds, Jaundice, Other - Neurological Neurological: absent: As Per HPI, Abnormal Gait, Abnormal Hearing, Abnormal Movements, Abnormal Speech, Behavioral Changes, Burning Sensations, Confusion, Convulsions, Disequilibrium, Dizziness, Numbness, Focal Weakness, Frequent Falls , Headaches, Lack of Coordination, Loss of Vision, Memory Loss, Paresthesias, Radicular Pain, Restless Legs, Sensory Deficit, Syncope, Tingling, Tremor, Vertigo, Weakness, Other Visual Disturbances, Other - Psychiatric Psychiatric: absent: As Per HPI, Abnormal Sleep Pattern, Anhedonia, Anxiety, Auditory Hallucinations, Behavioral Changes, Change in Appetite, Change in Libido, Confusion, Depression, Difficulty Concentrating, Hallucinations, Homicidal Ideation, Hopelessness, Irritability, Memory Loss, Mood Swings, Panic Attacks, Paranoia, Suicidal Ideation, Visual Hallucinations, Tactile Hallucinations, Other - Endocrine Endocrine: absent: As Per HPI, Change in Body Appearance, Change in Libido, Cold Intolorance, Deepening of Voice, Excessive Sweating, Fatigue, Flushing, Heat Intolorance, Increase in Ring/Shoe/Hat Size, Palpitations, Polydipsia, Polyphagia, Polyuria, Other - Hematologic/Lymphatic Hematologic: absent: As Per HPI, Easy Bleeding, Easy Bruising, Lymphadenopathy, Other Past Patient History - Infectious Disease Hx of Infectious Diseases: None - Tetanus Immunizations Tetanus Immunization: Up to Date - Past Medical History & Family History Past Medical History?: Yes - Past Social History Smoking Status: Former Smoker - CARDIAC Hx Atrial Fibrillation: Yes Hx Cardia Arrhythmia: Yes Hx Congestive Heart Failure: Yes Hx Hypercholesterolemia: Yes Hx Hypertension: Yes Hx Peripheral Edema: Yes - PULMONARY Hx Asthma: Yes Hx Chronic Obstructive Pulmonary Disease (COPD): Yes Hx Emphysema: Yes Hx Sleep Apnea: Yes (not on cpap/has had sleep studies) - NEUROLOGICAL Hx Neurological Disorder: No - HEENT Hx HEENT Problems: No - RENAL Hx Chronic Kidney Disease: No - ENDOCRINE/METABOLIC Hx Endocrine Disorders: No - HEMATOLOGICAL/ONCOLOGICAL Hx Blood Disorders: No - INTEGUMENTARY Hx Dermatological Problems: No - MUSCULOSKELETAL/RHEUMATOLOGICAL Hx Falls: Yes - GASTROINTESTINAL Hx Gastrointestinal Disorders: No - GENITOURINARY/GYNECOLOGICAL Hx Genitourinary Disorders: No - PSYCHIATRIC Hx Anxiety: Yes Hx Bipolar Disorder: Yes Hx Depression: Yes Hx Substance Use: Yes (Cocaine) - SURGICAL HISTORY Hx Appendectomy: Yes (2008) Hx Coronary Stent: Yes (2008 - 2012 4 stents) - ANESTHESIA Hx Anesthesia: Yes Hx Anesthesia Reactions: No Hx Malignant Hyperthermia: No Meds Allergies/Adverse Reactions: Allergies Allergy/AdvReac Type Severity Reaction Status Date / Time apixaban [From Eliquis] Allergy Verified 02/21/17 08:32 clopidogrel bisulfate Allergy Verified 02/21/17 08:32 [From Plavix] enoxaparin sodium Allergy Verified 02/21/17 08:32 [From Lovenox] morphine Allergy Verified 02/21/17 08:32 - Medications Medications: Current Medications Albuterol (Ventolin Hfa 90 Mcg/Actuation (8 G)) 2 puff IH BID [facility] Alprazolam (Xanax) 1 mg PO QID [facility] Carvedilol (Coreg) 12.5 mg PO BID [facility] Last Admin: 03/05/17 18:18 Dose: 12.5 mg Cyclobenzaprine HCl (Flexeril) 10 mg PO HS [facility] Digoxin (Lanoxin) 0.125 mg PO DAILY@1800 [facility] Diltiazem HCl (Cardizem) 30 mg PO Q6 [facility] Enalapril Maleate (Vasotec) 20 mg PO DAILY [facility] Fluoxetine HCl (Prozac) 40 mg PO DAILY [facility] Furosemide (Lasix) 40 mg PO DAILY [facility] Gabapentin (Neurontin) 2 mg PO HS [facility] Gabapentin (Neurontin) 300 mg PO QAM [facility] Home Med (Nitroglycerin [Nitrolingual]) 0.4 mg SL PRN PRN PRN Reason: CHEST PAIN Home Med (Oxycodone Hcl/Acetaminophen [Endocet 10-325 Mg Tablet]) 1 tab PO QID PRN PRN Reason: Pain, severe (8-10) Home Med (Tizanidine Hcl [Tizanidine Hcl]) 4 mg PO HS [facility] Hydralazine HCl (Apresoline) 1 mg PO DAILY [facility] Hydrochlorothiazide (Microzide) 50 mg PO DAILY [facility] Montelukast Sodium (Singulair) 10 mg PO HS [facility] Potassium Chloride (K-Dur 20 Meq Er Tab) 20 meq PO DAILY [facility] Rosuvastatin Calcium (Crestor) 5 mg PO HS [facility] Physical Exam - Constitutional Appears: Non-toxic - Head Exam Head Exam: NORMAL INSPECTION - Eye Exam Eye Exam: Normal appearance - ENT Exam ENT Exam: Mucous Membranes Moist - Neck Exam Neck exam: Positive for: Full Rom - Respiratory Exam Respiratory Exam: Decreased Breath Sounds - Cardiovascular Exam Cardiovascular Exam: Tachycardia, Irregular Rhythm - GI/Abdominal Exam GI & Abdominal Exam: Normal Bowel Sounds, Tenderness - Rectal Exam Rectal Exam: Deferred - Extremities Exam Extremities exam: Positive for: pedal edema - Back Exam Back exam: NORMAL INSPECTION - Neurological Exam Neurological exam: Alert, Oriented x3 - Psychiatric Exam Psychiatric exam: Normal Affect - Skin Skin Exam: Normal Color Results - Vital Signs Recent Vital Signs: Last Vital Signs Temp 102 F H 03/05/17 17:32 Pulse 97 H 03/05/17 17:32 Resp 20 03/05/17 17:32 BP 132/78 03/05/17 18:18 Pulse Ox 94 L 03/05/17 17:32 - Labs Result Diagrams: 03/05/17 09:58 03/05/17 09:58 - EKG Data EKG Interpreted by: Myself Assessment & Plan (1) Spleen hematoma Assessment and Plan: may need IR intervention Status: Acute (2) Atrial fibrillation with rapid ventricular response Assessment and Plan: can increase cardizem. holding anticoagulants due to splenic hematoma Status: Chronic (3) Hypertension Assessment and Plan: blood pressure control Status: Chronic (4) CAD (coronary artery disease) Assessment and Plan: holding antiplatelet Status: Chronic (5) Chronic left ventricular systolic dysfunction Assessment and Plan: I discussed chronic systolic dysfunction and the risk of sudden cardiac . Patient refuses AICD Status: Acute
--- NOTE | 2017-03-05 19:12 | CP.PCM.CON ---
History of Present Illness - History of Present Illness History of Present Illness: 46M presents with enlarging encapsulated hemorrhage. was here approx 10 days ago but signed out AMA At that time had + blood c/s for MRSA Endocarditis and or infected spleen / abscess was suspected based on numerous positive blood cultures Patient presented to ED w/ rapid Afib. Pt signed out AMA 02/27, patient states the reason was because he was having social issues at home. He reports ever since he signed out AMA he was taking the medications prescribed to him but he states they did not help. He reports his pain being around 4-5 when he left the hospital but today rates it as a 9/10. Patient states the pain is so severe, sharp in nature, and he has difficulty taking deep breaths. Currently patient reports headache, denies dizziness, chest pain. Denies n/v/d. Denies hematemesis /hematochezia. At this time splenic hematoma has expanded when compared to imaging done on 02/22. Patient to be admitted to ICU. PMH: HTN, CAD, CHF, Afib, COPD, ARLENE, Herniated discs L-spine, Bipolar/ Depression PTCA for CAD x4 PSH: Appendectomy (2008), Coronary stents x4 ([id number]) Review of Systems - Constitutional Constitutional: As Per HPI, Chills, Fever. absent: Weight Loss - EENT Eyes: As Per HPI Ears: As Per HPI Nose/Mouth/Throat: As Per HPI - Cardiovascular Cardiovascular: As Per HPI - Respiratory Respiratory: As Per HPI, Cough, Dyspnea. absent: Hemoptysis - Gastrointestinal Gastrointestinal: As Per HPI, Abdominal Pain - Genitourinary Genitourinary: absent: As Per HPI, Change in Urinary Stream, Difficulty Urinating, Dysuria, Flank Pain, Hematuria, Pyuria, Nocturia, Urinary Incontinence, Urinary Frequency, Urinary Hesitance, Urinary Urgency, Voiding Freq/Small Amts, Freq UTI, Hx Renal/Bladder Calculi, Hx /Renal Surgery, Bladder Distension, Other - Musculoskeletal Musculoskeletal: absent: As Per HPI, Abnormal Gait, Arthralgias, Atrophy, Back Pain, Deformity, Joint Swelling, Limited Range of Motion, Loss of Height, Muscle Cramps, Muscle Weakness, Myalgias, Neck Pain, Numbness, Radiating Pain into Limb, Stiffness, Tingling, Other - Integumentary Integumentary: absent: As Per HPI, Acne, Alopecia, Bleeding Lesions, Change in Hair, Change in Nails, Change in Pigmentation, Changing Lesions, Dry Skin, Erythema, Furuncle, Hirsutism, Lesions, New Lesions, Non-Healing Lesions, Photosensitivity, Pruritus, Rash, Skin Pain, Skin Ulcer, Sores, Striae, Swelling , Unusual Bruising, Wounds, Jaundice, Other - Neurological Neurological: absent: As Per HPI, Abnormal Gait, Abnormal Hearing, Abnormal Movements, Abnormal Speech, Behavioral Changes, Burning Sensations, Confusion, Convulsions, Disequilibrium, Dizziness, Numbness, Focal Weakness, Frequent Falls , Headaches, Lack of Coordination, Loss of Vision, Memory Loss, Paresthesias, Radicular Pain, Restless Legs, Sensory Deficit, Syncope, Tingling, Tremor, Vertigo, Weakness, Other Visual Disturbances, Other - Endocrine Endocrine: absent: As Per HPI, Change in Body Appearance, Change in Libido, Cold Intolorance, Deepening of Voice, Excessive Sweating, Fatigue, Flushing, Heat Intolorance, Increase in Ring/Shoe/Hat Size, Palpitations, Polydipsia, Polyphagia, Polyuria, Other - Hematologic/Lymphatic Hematologic: absent: As Per HPI, Easy Bleeding, Easy Bruising, Lymphadenopathy, Other Past Patient History - Infectious Disease Hx of Infectious Diseases: None - Tetanus Immunizations Tetanus Immunization: Up to Date - Past Medical History & Family History Past Medical History?: Yes - Past Social History Smoking Status: Former Smoker - CARDIAC Hx Atrial Fibrillation: Yes Hx Cardia Arrhythmia: Yes Hx Congestive Heart Failure: Yes Hx Hypercholesterolemia: Yes Hx Hypertension: Yes Hx Peripheral Edema: Yes - PULMONARY Hx Asthma: Yes Hx Chronic Obstructive Pulmonary Disease (COPD): Yes Hx Emphysema: Yes Hx Sleep Apnea: Yes (not on cpap/has had sleep studies) - NEUROLOGICAL Hx Neurological Disorder: No - HEENT Hx HEENT Problems: No - RENAL Hx Chronic Kidney Disease: No - ENDOCRINE/METABOLIC Hx Endocrine Disorders: No - HEMATOLOGICAL/ONCOLOGICAL Hx Blood Disorders: No - INTEGUMENTARY Hx Dermatological Problems: No - MUSCULOSKELETAL/RHEUMATOLOGICAL Hx Falls: Yes - GASTROINTESTINAL Hx Gastrointestinal Disorders: No - GENITOURINARY/GYNECOLOGICAL Hx Genitourinary Disorders: No - PSYCHIATRIC Hx Anxiety: Yes Hx Bipolar Disorder: Yes Hx Depression: Yes Hx Substance Use: Yes (Cocaine) - SURGICAL HISTORY Hx Appendectomy: Yes (2008) Hx Coronary Stent: Yes (2008 - 2012 4 stents) - ANESTHESIA Hx Anesthesia: Yes Hx Anesthesia Reactions: No Hx Malignant Hyperthermia: No Meds Allergies/Adverse Reactions: Allergies Allergy/AdvReac Type Severity Reaction Status Date / Time apixaban [From Eliquis] Allergy Verified 02/21/17 08:32 clopidogrel bisulfate Allergy Verified 02/21/17 08:32 [From Plavix] enoxaparin sodium Allergy Verified 02/21/17 08:32 [From Lovenox] morphine Allergy Verified 02/21/17 08:32 - Medications Medications: Current Medications Acetaminophen (Tylenol 325mg Tab) 650 mg PO Q6 PRN PRN Reason: Fever >100.4 F Albuterol (Ventolin Hfa 90 Mcg/Actuation (8 G)) 2 puff IH BID [facility] Alprazolam (Xanax) 1 mg PO QID [facility] Carvedilol (Coreg) 12.5 mg PO BID [facility] Last Admin: 03/05/17 18:18 Dose: 12.5 mg Cyclobenzaprine HCl (Flexeril) 10 mg PO HS [facility] Digoxin (Lanoxin) 0.125 mg PO DAILY@1800 [facility] Diltiazem HCl (Cardizem) 30 mg PO Q6 [facility] Enalapril Maleate (Vasotec) 20 mg PO DAILY [facility] Fluoxetine HCl (Prozac) 40 mg PO DAILY [facility] Furosemide (Lasix) 40 mg PO DAILY [facility] Gabapentin (Neurontin) 600 mg PO HS [facility] Gabapentin (Neurontin) 300 mg PO QAM [facility] Hydralazine HCl (Apresoline) 25 mg PO DAILY [facility] Hydrochlorothiazide (Microzide) 50 mg PO DAILY [facility] Imipenem/Cilastatin Sodium 500 (mg/ Sodium Chloride) 100 mls @ 100 mls/hr IVPB Q6H [facility] Montelukast Sodium (Singulair) 10 mg PO HS [facility] Oxycodone/Acetaminophen (Percocet 5/325 Mg Tab) 1 tab PO QID PRN PRN Reason: Pain, severe (8-10) Potassium Chloride (K-Dur 20 Meq Er Tab) 20 meq PO DAILY [facility] Rosuvastatin Calcium (Crestor) 5 mg PO HS [facility] Physical Exam - Constitutional Appears: Toxic, In Acute Distress, Chronically Ill - Head Exam Head Exam: ATRAUMATIC, NORMAL INSPECTION, NORMOCEPHALIC - Eye Exam Eye Exam: PERRL. absent: Scleral icterus - ENT Exam ENT Exam: Mucous Membranes Dry, Normal External Ear Exam, Normal Oropharynx - Neck Exam Neck exam: Negative for: Lymphadenopathy - Respiratory Exam Respiratory Exam: Decreased Breath Sounds, Rhonchi - Cardiovascular Exam Cardiovascular Exam: Tachycardia, REGULAR RHYTHM, +S1, +S2 - GI/Abdominal Exam GI & Abdominal Exam: Diminished Bowel Sounds, Distended, Guarding, Soft, Tenderness. absent: Rebound, Rigid - Rectal Exam Rectal Exam: Deferred - Exam Exam: NORMAL INSPECTION - Extremities Exam Extremities exam: Positive for: pedal pulses present. Negative for: calf tenderness, pedal edema, tenderness - Back Exam Back exam: absent: CVA tenderness (L), CVA tenderness (R) - Neurological Exam Neurological exam: Alert, CN II-XII Intact, Oriented x3, Reflexes Normal - Psychiatric Exam Psychiatric exam: Depressed - Skin Skin Exam: Dry Results - Vital Signs Recent Vital Signs: Last Vital Signs Temp 102 F H 03/05/17 17:32 Pulse 97 H 03/05/17 17:32 Resp 20 03/05/17 17:32 BP 132/78 03/05/17 18:18 Pulse Ox 94 L 03/05/17 17:32 - Labs Result Diagrams: 03/08/17 12:28 03/08/17 07:15 Assessment & Plan (1) Chronic left ventricular systolic dysfunction Status: Acute (2) Atrial fibrillation with rapid ventricular response Status: Chronic (3) Degenerative disc disease, lumbar Status: Chronic (4) Hypertension Status: Chronic (5) Sleep apnea Status: Chronic (6) ACS (acute coronary syndrome) Status: Acute (7) Abdominal pain Status: Acute (8) Anticoagulated on Coumadin Status: Acute - Assessment and Plan (Free Text) Assessment: STAPH SEPSIS R/O ENDOCARDITIS HX SPLENIC HEMATOMA R/O ABSCESS NEEDS ECHO/PILY/ SURG EVAL/ ? DRAINAGE OF HEMATOMA / ABSCESS CONT IV ANTIBIOTICS
[2017-03-05] MEDS ORDERED: Vancomycin 1 gm/NS 200 ml 200 ML IVPB ONE (20:15)
[2017-03-05] MEDS: Oxycodone/Acetaminophen 5/325 mg Tab PO PRN (20:44)
[2017-03-05] MEDS ORDERED: TIZANIDINE HCL 4 MG PO SCH (22:00)
[2017-03-06] MEDS ORDERED: HYDROmorphone 0.5 mg/0.5 ml ISec IVP STA ×2 (00:36→23:16)
[2017-03-06] MEDS: Vancomycin 500mg/D5W 100 ml 100 ML IVPB SCH ×4 (02:00→21:00)
[2017-03-06 06:38] LABS: BASO % 0.1 % (0.0-2.0); EOS # 0.1 K/uL (0.0-0.7); EOS % 0.2 % (0.0-4.0); HEMATOCRIT 35.4 % (35.0-51.0); LYMPH # 1.3 K/uL (1.0-4.3); LYMPH % 4.9 % (20.0-40.0); MEAN CELL VOLUME 84.5 fL (80.0-94.0); MEAN CORPUSCULAR HEMOGLOBIN 26.4 pg (27.0-31.0); MEAN CORPUSCULAR HGB CONC 31.3 g/dL (33.0-37.0); MEAN PLATELET VOLUME 7.6 fL (7.2-11.7); MONO # 2.9 K/uL (0.0-0.8); MONO % 10.7 % (0.0-10.0); PLATELET COUNT 383 K/uL (130-400); RED CELL DISTRIBUTION WIDTH 16.1 % (11.5-14.5); WHITE BLOOD COUNT 27.3 K/uL (4.8-10.8)
[2017-03-06 06:47] LABS: CHLORIDE 92 mmol/L (98-107); POTASSIUM 4.7 mmol/L (3.6-5.2); SODIUM 136 mmol/L (132-148)
[2017-03-06 06:49] LABS: AST/SGOT 28 U/L (17-59); BILIRUBIN,TOTAL 0.8 mg/dL (0.2-1.3); CARBON DIOXIDE 29 mmol/L (22-30); GFR AFRICAN-AMERICAN > 60; TOTAL PROTEIN 7.7 g/dL (6.3-8.3)
[2017-03-06 06:50] LABS: ALKALINE PHOSPHATASE 73 U/L (38-126); ALT/SGPT 21 U/L (21-72); BLOOD UREA NITROGEN 17 mg/dL (9-20); CALCIUM 7.9 mg/dl (8.6-10.4); GLUCOSE,RANDOM 119 mg/dL (75-110); MAGNESIUM 2.1 mg/dL (1.6-2.3); PHOSPHOROUS 3.8 mg/dL (2.5-4.5)
[2017-03-06 07:01] LABS: ALB/GLOB RATIO 0.8 (1.0-2.1)
[2017-03-06] MEDS: Oxycodone/Acetaminophen 5/325 mg Tab PO PRN ×3 (07:27→18:28)
[2017-03-06 08:25] LABS: NEUTROPHIL 83 % (50-75); TOTAL CELLS COUNTED 100
[2017-03-06 08:27] LABS: LARGE PLATELETS PRESENT
[2017-03-06] MEDS ORDERED: Midazolam 2 MG/2 ML VIAL ONE (08:42)
[2017-03-06] MEDS: Albuterol HFA 90 mcg/actuation (8 g) IH SCH ×2 (08:48→20:18)
--- NOTE | 2017-03-06 09:28 | CP.PCM.PN ---
Subjective - Date & Time of Evaluation Date of Evaluation: 03/06/17 Time of Evaluation: 07:00 - Subjective Subjective: Gen Surg: Dr. Senior Patient refused to be examined this morning stating " It is too early for this" . Patient aware about IR invervention this morning. NAEO. Objective - Vital Signs/Intake and Output Vital Signs (last 24 hours): Temp Pulse Resp BP Pulse Ox 97.6 F 103 H 21 147/89 96 03/06/17 04:00 03/06/17 06:00 03/06/17 06:00 03/06/17 06:00 03/06/17 06:00 Intake and Output: 03/06/17 03/06/17 06:59 18:59 Intake Total 950 Output Total 700 100 Balance 250 -100 - Medications Medications: Current Medications Acetaminophen (Tylenol 325mg Tab) 650 mg PO Q6 PRN PRN Reason: Fever >100.4 F Albuterol (Ventolin Hfa 90 Mcg/Actuation (8 G)) 2 puff IH RBID [facility] Last Admin: 03/06/17 08:48 Dose: Not Given Alprazolam (Xanax) 1 mg PO QID [facility] Last Admin: 03/06/17 00:47 Dose: 1 mg Carvedilol (Coreg) 12.5 mg PO BID [facility] Last Admin: 03/05/17 18:18 Dose: 12.5 mg Cyclobenzaprine HCl (Flexeril) 10 mg PO HS [facility] Last Admin: 03/05/17 23:00 Dose: Not Given Digoxin (Lanoxin) 0.125 mg PO DAILY@1800 [facility] Diltiazem HCl (Cardizem) 30 mg PO Q6 [facility] Last Admin: 03/06/17 05:49 Dose: 30 mg Enalapril Maleate (Vasotec) 20 mg PO DAILY [facility] Fluoxetine HCl (Prozac) 40 mg PO DAILY [facility] Furosemide (Lasix) 40 mg PO DAILY [facility] Gabapentin (Neurontin) 600 mg PO HS [facility] Last Admin: 03/05/17 23:00 Dose: 600 mg Gabapentin (Neurontin) 300 mg PO QAM [facility] Hydralazine HCl (Apresoline) 25 mg PO DAILY [facility] Hydrochlorothiazide (Hydrodiuril) 50 mg PO DAILY [facility] Imipenem/Cilastatin Sodium 500 (mg/ Sodium Chloride) 100 mls @ 100 mls/hr IVPB Q6H [facility] Last Admin: 03/06/17 06:00 Dose: 100 mls/hr Vancomycin HCl/Dextrose (Vancocin) 100 mls @ 100 mls/hr IVPB Q6H [facility] Stop: 03/11/17 02:01 Last Admin: 03/06/17 02:00 Dose: 100 mls/hr Montelukast Sodium (Singulair) 10 mg PO HS [facility] Last Admin: 03/05/17 23:00 Dose: 10 mg Oxycodone/Acetaminophen (Percocet 5/325 Mg Tab) 2 tab PO QID PRN PRN Reason: Pain, severe (8-10) Potassium Chloride (K-Dur 20 Meq Er Tab) 20 meq PO DAILY [facility] Rosuvastatin Calcium (Crestor) 5 mg PO [facility] Last Admin: 03/05/17 23:00 Dose: 5 mg - Labs Labs: 03/06/17 06:31 03/06/17 06:31 PT 16.5 SECONDS (9.7-12.2) H 03/05/17 09:58 INR 1.4 03/05/17 09:58 APTT 35 SECONDS (21-34) H 03/05/17 09:58 - Additional Findings Additional findings: Patient refusing to be examined Assessment and Plan - Assessment and Plan (Free Text) Assessment: 46M w/ large subcapsular splenic hematoma -For IR drainage of hematoma today -If bleeding continues will need embolization -Hold anti-coagulation -Analgesic -F/u AM labs -Poor surgical candidate -D/w Dr. Senior
--- NOTE | 2017-03-06 09:43 | PCM.SURG1 ---
Surgeon's Initial Post Op Note - Surgeon's Notes Surgeon: Dedrick Shankar MD [employer]: NONE Type of Anesthesia: IV Sedation, Local Pre-Operative Diagnosis: Splenic hematoma, abdominal pain Operative Findings: Large splenic collection extending into the lower left abdomen. Post-Operative Diagnosis: Splenic hematoma. Operation Performed: US guided aspiration of splenic hematoma. Specimen/Specimens Removed: 1000 ml of blood. Estimated Blood Loss: EBL {In ML}: 0 Blood Products Given: N/A Drains Used: No Drains Post-Op Condition: Fair Date of Surgery/Procedure: 03/06/17 Time of Surgery/Procedure: 09:35
--- NOTE | 2017-03-06 10:43 | CP.PCM.PN ---
Subjective - Date & Time of Evaluation Date of Evaluation: 03/06/17 Time of Evaluation: 02:00 - Subjective Subjective: cinically same Objective - Vital Signs/Intake and Output Vital Signs (last 24 hours): Temp Pulse Resp BP Pulse Ox 97.6 F 103 H 21 147/89 96 03/06/17 04:00 03/06/17 06:00 03/06/17 06:00 03/06/17 06:00 03/06/17 06:00 Intake and Output: 03/06/17 03/06/17 06:59 18:59 Intake Total 950 Output Total 700 100 Balance 250 -100 - Medications Medications: Current Medications Acetaminophen (Tylenol 325mg Tab) 650 mg PO Q6 PRN PRN Reason: Fever >100.4 F Albuterol (Ventolin Hfa 90 Mcg/Actuation (8 G)) 2 puff IH RBID [facility] Last Admin: 03/06/17 08:48 Dose: Not Given Alprazolam (Xanax) 1 mg PO QID [facility] Last Admin: 03/06/17 00:47 Dose: 1 mg Carvedilol (Coreg) 12.5 mg PO BID [facility] Last Admin: 03/05/17 18:18 Dose: 12.5 mg Digoxin (Lanoxin) 0.125 mg PO DAILY@1800 [facility] Diltiazem HCl (Cardizem) 60 mg PO Q6 [facility] Enalapril Maleate (Vasotec) 20 mg PO DAILY [facility] Fluoxetine HCl (Prozac) 40 mg PO DAILY [facility] Furosemide (Lasix) 40 mg PO DAILY [facility] Gabapentin (Neurontin) 600 mg PO HS [facility] Last Admin: 03/05/17 23:00 Dose: 600 mg Gabapentin (Neurontin) 300 mg PO QAM [facility] Hydralazine HCl (Apresoline) 25 mg PO DAILY [facility] Hydrochlorothiazide (Hydrodiuril) 50 mg PO DAILY [facility] Imipenem/Cilastatin Sodium 500 (mg/ Sodium Chloride) 100 mls @ 100 mls/hr IVPB Q6H [facility] Last Admin: 03/06/17 06:00 Dose: 100 mls/hr Vancomycin HCl/Dextrose (Vancocin) 100 mls @ 100 mls/hr IVPB Q6H [facility] Stop: 03/11/17 02:01 Last Admin: 03/06/17 02:00 Dose: 100 mls/hr Montelukast Sodium (Singulair) 10 mg PO HS [facility] Last Admin: 03/05/17 23:00 Dose: 10 mg Oxycodone/Acetaminophen (Percocet 5/325 Mg Tab) 2 tab PO QID PRN PRN Reason: Pain, severe (8-10) Potassium Chloride (K-Dur 20 Meq Er Tab) 20 meq PO DAILY [facility] Rosuvastatin Calcium (Crestor) 5 mg PO [facility] Last Admin: 03/05/17 23:00 Dose: 5 mg - Labs Labs: 03/06/17 06:31 03/06/17 06:31 PT 16.5 SECONDS (9.7-12.2) H 03/05/17 09:58 INR 1.4 03/05/17 09:58 APTT 35 SECONDS (21-34) H 03/05/17 09:58 - Constitutional Appears: Well - Head Exam Head Exam: ATRAUMATIC, NORMAL INSPECTION, NORMOCEPHALIC - Eye Exam Eye Exam: EOMI, Normal appearance, PERRL Pupil Exam: NORMAL ACCOMODATION, PERRL - ENT Exam ENT Exam: Mucous Membranes Moist, Normal Exam - Neck Exam Neck Exam: Full ROM, Normal Inspection. absent: Lymphadenopathy - Respiratory Exam Respiratory Exam: Decreased Breath Sounds - Cardiovascular Exam Cardiovascular Exam: REGULAR RHYTHM, +S1, +S2 - GI/Abdominal Exam GI & Abdominal Exam: Soft, Diminished Bowel Sounds - Rectal Exam Rectal Exam: Deferred
[2017-03-06] MEDS: Potassium Chloride 20 mEq ER Tab PO SCH (11:57)
--- NOTE | 2017-03-06 14:54 | US ---
PROCEDURE: Date of procedure: 03/06/2017 Procedure: Ultrasound guided aspiration of perisplenic fluid collection HISTORY: Splenic hematoma with abdominal pain TECHNIQUE: Following informed consent and procedure time-out, limited ultrasound of the patient's left abdomen a large perisplenic collection extending into the lower abdomen. After the patient left abdomen was prepped and draped in the usual sterile fashion, the skin was anesthetized with 1% lidocaine. A drainage catheter was advanced under ultrasound guidance into the collection. 1 liter of old bloody fluid was removed. Fluid specimen was sent for culture. A dressing was applied. IMPRESSION: Ultrasound-guided aspiration of splenic collection. Total of 1 liter of old bloody fluid was removed.
--- NOTE | 2017-03-06 15:37 | CP.PCM.CON ---
History of Present Illness - History of Present Illness History of Present Illness: 46 y/o M with pmhx significant for drug abuse, HTN, CAD, CHF, A. fib, COPD, and ARLENE presented for enlarging encapsulated splenic hemorrhage for which he was in [facility] ICU one week ago and left AMA. He returned with increased pain. He denies having any lung problems or being previously diagnosed with COPD. He admits to asthma diagnosed as a child for which he takes an albuterol inhaler and nebulizer one time per week as needed. He is able to walk 5 blocks before becoming short of breath and develops chest pain that he characterizes as burning, aching, and stabbing. He denies any dyspnea at rest, orthopnea, difficult breathing, chest pain at rest, cough, or mucous production. He admits only to pain in left side in region of spleen on deep inspiration which attributes to hematoma. Pt does not use CPAP at night due to feeling claustrophobic. Pmhx: drug abuse, HTN, CAD, CHF, Afib, COPD, ARLENE, Herniated discs L-spine, Bipolar/Depression Pshx: b/l knee arthroscopy, appendectomy, s/p 4x stents (2012) Famhx: daughter has asthma SShx: lives alone, former cocaine abuser (1 month ago quit), drinks beer several times per week (refused to quantify), smoked 1/2 pack/day for 36 years quit 8 months ago. Review of Systems - Constitutional Constitutional: absent: Chills, Fever - EENT Eyes: absent: Change in Vision - Cardiovascular Cardiovascular: Chest Pain with Activity (after walking > 5 blocks). absent: Chest Pain at Rest - Respiratory Respiratory: Snoring, Pain on Inspiration (Abdominal pain). absent: Cough, Dyspnea, Dyspnea on Exertion, Wheezing, Excessive Mucous Production - Gastrointestinal Gastrointestinal: Abdominal Pain - Musculoskeletal Musculoskeletal: absent: Myalgias - Psychiatric Psychiatric: Anxiety - Endocrine Endocrine: absent: Cold Intolorance, Heat Intolorance Past Patient History - Infectious Disease Hx of Infectious Diseases: None - Tetanus Immunizations Tetanus Immunization: Up to Date - Past Medical History & Family History Past Medical History?: Yes - Past Social History Smoking Status: Former Smoker - CARDIAC Hx Atrial Fibrillation: Yes Hx Cardia Arrhythmia: Yes Hx Congestive Heart Failure: Yes Hx Hypercholesterolemia: Yes Hx Hypertension: Yes Hx Peripheral Edema: Yes - PULMONARY Hx Asthma: Yes Hx Chronic Obstructive Pulmonary Disease (COPD): Yes Hx Emphysema: Yes Hx Sleep Apnea: Yes (not on cpap/has had sleep studies) - NEUROLOGICAL Hx Neurological Disorder: No - HEENT Hx HEENT Problems: No - RENAL Hx Chronic Kidney Disease: No - ENDOCRINE/METABOLIC Hx Endocrine Disorders: No - HEMATOLOGICAL/ONCOLOGICAL Hx Blood Disorders: No - INTEGUMENTARY Hx Dermatological Problems: No - MUSCULOSKELETAL/RHEUMATOLOGICAL Hx Falls: Yes - GASTROINTESTINAL Hx Gastrointestinal Disorders: No - GENITOURINARY/GYNECOLOGICAL Hx Genitourinary Disorders: No - PSYCHIATRIC Hx Anxiety: Yes Hx Bipolar Disorder: Yes Hx Depression: Yes Hx Substance Use: Yes (Cocaine) - SURGICAL HISTORY Hx Appendectomy: Yes (2008) Hx Coronary Stent: Yes (2008 - 2012 4 stents) - ANESTHESIA Hx Anesthesia: Yes Hx Anesthesia Reactions: No Hx Malignant Hyperthermia: No Meds Allergies/Adverse Reactions: Allergies Allergy/AdvReac Type Severity Reaction Status Date / Time apixaban [From Eliquis] Allergy Verified 02/21/17 08:32 clopidogrel bisulfate Allergy Verified 02/21/17 08:32 [From Plavix] enoxaparin sodium Allergy Verified 02/21/17 08:32 [From Lovenox] morphine Allergy Verified 02/21/17 08:32 - Medications Medications: Current Medications Acetaminophen (Tylenol 325mg Tab) 650 mg PO Q6 PRN PRN Reason: Fever >100.4 F Albuterol (Ventolin Hfa 90 Mcg/Actuation (8 G)) 2 puff IH RBID [facility] Last Admin: 03/06/17 08:48 Dose: Not Given Alprazolam (Xanax) 1 mg PO QID [facility] Last Admin: 03/06/17 14:20 Dose: 1 mg Carvedilol (Coreg) 12.5 mg PO BID [facility] Last Admin: 03/06/17 11:56 Dose: 12.5 mg Digoxin (Lanoxin) 0.125 mg PO DAILY@1800 [facility] Diltiazem HCl (Cardizem) 60 mg PO Q6 [facility] Last Admin: 03/06/17 11:57 Dose: 60 mg Enalapril Maleate (Vasotec) 20 mg PO DAILY [facility] Last Admin: 03/06/17 14:19 Dose: 20 mg Fluoxetine HCl (Prozac) 40 mg PO DAILY [facility] Last Admin: 03/06/17 12:03 Dose: 40 mg Furosemide (Lasix) 40 mg PO DAILY [facility] Last Admin: 03/06/17 11:57 Dose: 40 mg Gabapentin (Neurontin) 600 mg PO [facility] Last Admin: 03/05/17 23:00 Dose: 600 mg [facility] ([facility]in) [facility] Last Admin: 03/06/17 11:57 Dose: 300 mg Hydralazine HCl (Apresoline) 25 mg PO DAILY [facility] Last Admin: 03/06/17 11:56 Dose: 25 mg Hydrochlorothiazide (Hydrodiuril) 50 mg PO DAILY [facility] Last Admin: 03/06/17 11:56 Dose: 50 mg Imipenem/Cilastatin Sodium 500 (mg/ Sodium Chloride) 100 mls @ 100 mls/hr IVPB Q6H [facility] Last Admin: 03/06/17 12:01 Dose: 100 mls/hr Vancomycin HCl/Dextrose (Vancocin) 100 mls @ 100 mls/hr IVPB Q6H [facility] Stop: 03/11/17 02:01 Last Admin: 03/06/17 14:20 Dose: 100 mls/hr Montelukast Sodium (Singulair) 10 mg PO [facility] Last Admin: 03/05/17 23:00 Dose: 10 mg Oxycodone/Acetaminophen (Percocet 5/325 Mg Tab) 2 tab PO QID PRN PRN Reason: Pain, severe (8-10) Last Admin: 03/06/17 11:58 Dose: 2 tab Potassium Chloride (K-Dur 20 Meq Er Tab) 20 meq PO DAILY [facility] Last Admin: 03/06/17 11:57 Dose: 20 meq Rosuvastatin Calcium (Crestor) 5 mg PO [facility] Last Admin: 03/05/17 23:00 Dose: 5 mg Physical Exam - Head Exam Head Exam: NORMOCEPHALIC - Eye Exam Eye Exam: Normal appearance, PERRL Pupil Exam: NORMAL ACCOMODATION - ENT Exam ENT Exam: Mucous Membranes Moist - Neck Exam Neck exam: Positive for: Normal Inspection - Respiratory Exam Respiratory Exam: Decreased Breath Sounds, Clear to Auscultation Bilateral, NORMAL BREATHING PATTERN. absent: Accessory Muscle Use, Rales, Rhonchi, Wheezes , Respiratory Distress - Cardiovascular Exam Cardiovascular Exam: Tachycardia, Irregular Rhythm (Rapid A.fib at 160), REGULAR RHYTHM, +S1, +S2. absent: Gallop, Rubs - GI/Abdominal Exam GI & Abdominal Exam: Normal Bowel Sounds, Soft. absent: Tenderness - Extremities Exam Extremities exam: Positive for: pedal edema - Back Exam Back exam: NORMAL INSPECTION - Neurological Exam Neurological exam: Alert, Oriented x3 - Psychiatric Exam Psychiatric exam: Normal Affect, Normal Mood - Skin Skin Exam: Dry, Intact Additional comments: Calf venous stasis b/l Results - Vital Signs Recent Vital Signs: Last Vital Signs Temp 98.0 F 03/06/17 14:00 Pulse 103 H 03/06/17 06:00 Resp 21 03/06/17 06:00 BP 133/100 H 03/06/17 14:19 Pulse Ox 96 03/06/17 06:00 - Labs Result Diagrams: 03/06/17 06:31 03/06/17 06:31 Labs: Laboratory Results - last 24 hr 03/06/17 03/06/17 06:31 10:31 WBC 27.3 H RBC 4.19 L Hgb 11.1 L Hct 35.4 MCV 84.5 MCH 26.4 L MCHC 31.3 L RDW 16.1 H Plt Count 383 MPV 7.6 Neut % (Auto) 84.1 H Lymph % (Auto) 4.9 L Sutter % (Auto) 10.7 H Eos % (Auto) 0.2 Baso % (Auto) 0.1 Neut # 23.0 H Lymph # 1.3 Sutter # 2.9 H Eos # 0.1 Baso # 0.0 Neutrophils % (Manual) 83 H Lymphocytes % (Manual) 5 L Monocytes % (Manual) 12 H Toxic Granulation Present Platelet Estimate Normal Large Platelets Present Polychromasia Slight Hypochromasia (manual) Slight Poikilocytosis (manual Slight Anisocytosis (manual) Slight Microcytosis (manual) Slight Target Cells Slight Helmet Cells Slight Sodium 136 Potassium 4.7 Chloride 92 L Carbon Dioxide 29 Anion Gap 20 BUN 17 Creatinine 0.6 L Est GFR ( Amer) > 60 Est GFR (Non-Af Amer) > 60 Random Glucose 119 H Calcium 7.9 L Phosphorus 3.8 Magnesium 2.1 Total Bilirubin 0.8 AST 28 ALT 21 Alkaline Phosphatase 73 Total Protein 7.7 Albumin 3.3 L Globulin 4.4 H Albumin/Globulin Ratio 0.8 L Urine Opiates Screen Positive Urine Methadone Screen Negative Ur Barbiturates Screen Negative Ur Phencyclidine Scrn Negative Ur Amphetamines Screen Negative U Benzodiazepines Scrn Positive U Oth Cocaine Metabols Positive U Cannabinoids Screen Negative Assessment & Plan - Assessment and Plan (Free Text) Plan: Absence of clinic features indicative of active pneumonia makes pneumonia less likely at this time. Due to splenic hematoma, elevated WBC, and febrile nature patient is on broad spectrum antibiotics at this time that will cover common pneumonia species. Atelectasis likely to due to splinting from abdominal pain. Continue albuterol INH PRN and montelukast 10mg PO daily. CT Abdomen/pelvis 03/05/17: Left lower lobe atelectasis or pneumonia. Small left pleural effusion CXR 03/05/17: Moderate venous congestion with patchy increased markings at the left lung base.
--- NOTE | 2017-03-06 17:11 | CP.CCUPN ---
<Adis Malone - Last Filed: 03/06/17 17:08> CCU Subjective - Physician Review Subjective (Free Text): 03/06/17 17:08 Pt seen and examined in no acute distress. Patient sleeping s/p aspiration of splenic hematoma. Patient tolerated procedure well. Patient well known to the critical care team. At this time, ROS could not be obtained as patient was resting. CCU Objective - Vital Signs / Intake & Output Vital Signs (Last 4 hours): Vital Signs Temp BP 03/06/17 14:19 133/100 H 03/06/17 14:00 98.0 F Intake and Output (Last 8hrs): Intake & Output 03/06/17 03/06/17 03/06/17 06:59 14:59 22:59 Intake Total 950 750 Output Total 600 700 Balance 350 50 Weight 320 lb 5 oz Intake: Intake, IV Amount 300 300 Left Forearm 300 300 Oral 450 Blood Product 650 Output: Urine 600 700 Urine, Voided 600 700 Other: # Voids Urine, Voided 1 # Bowel Movements 0 - Physical Exam Head: Positive for: Atraumatic, Normocephalic Pupils: Positive for: PERRL Extroacular Muscles: Positive for: EOMI Conjunctiva: Positive for: Normal Ears: Positive for: Normal Mouth: Positive for: Moist Mucous Membranes Pharnyx: Positive for: Normal Neck: Positive for: Normal Range of Motion Respiratory/Chest: Positive for: Good Air Exchange Cardiovascular: Positive for: Normal S1, S2 Abdomen: Positive for: Tenderness, Distention, Normal Bowel Sounds. Negative for: Peritoneal Signs Back: Positive for: Normal Inspection Lower Extremity: Positive for: Other (scattered rashes on LE B/L) Neurological: Positive for: CN II-XII Intact. Negative for: Speech Normal Skin: Positive for: Warm, Dry, Rashes Psychiatric: Positive for: Alert, Oriented x 3, Anxious, Agitated - Medications Active Medications: Active Medications Generic Name Dose Route Start Last Admin Trade Name Freq PRN Reason Stop Dose Admin Acetaminophen 650 mg 03/05/17 18:57 Tylenol 325mg Tab PO Q6 PRN Fever >100.4 F Albuterol 2 puff 03/06/17 09:00 03/06/17 08:48 Ventolin Hfa 90 Mcg/Actuation (8 G) IH Not Given RBID JEIMY Alprazolam 1 mg 03/05/17 18:00 03/06/17 14:20 Xanax PO 1 mg QID JEIMY Administration Carvedilol 12.5 mg 03/05/17 18:00 03/06/17 11:56 Coreg PO 12.5 mg BID JEIMY Administration Digoxin 0.125 mg 03/06/17 18:00 Lanoxin PO DAILY@1800 JEIMY Diltiazem HCl 60 mg 03/06/17 10:33 03/06/17 11:57 Cardizem PO 60 mg Q6 JEIMY Administration Enalapril Maleate 20 mg 03/06/17 10:00 03/06/17 14:19 Vasotec PO 20 mg DAILY JEIMY Administration Fluoxetine HCl 40 mg 03/06/17 10:00 03/06/17 12:03 Prozac PO 40 mg DAILY JEIMY Administration Furosemide 40 mg 03/06/17 10:00 03/06/17 11:57 Lasix PO 40 mg DAILY JEIMY Administration Gabapentin 600 mg 03/05/17 22:00 03/05/17 23:00 Neurontin PO 600 mg HS JEIMY Administration Gabapentin 300 mg 03/06/17 10:00 03/06/17 11:57 Neurontin PO 300 mg QAM JEIMY Administration Hydralazine HCl 25 mg 03/06/17 10:00 03/06/17 11:56 Apresoline PO 25 mg DAILY JEIMY Administration Hydrochlorothiazide 50 mg 03/06/17 10:00 03/06/17 11:56 Hydrodiuril PO 50 mg DAILY JEIMY Administration Imipenem/Cilastatin Sodium 500 100 mls @ 100 mls/hr 03/05/17 19:00 03/06/17 12: 01 mg/ Sodium Chloride IVPB 100 mls/hr Q6H JEIMY Administration Vancomycin HCl/Dextrose 100 mls @ 100 mls/hr 03/06/17 02:00 03/06/17 14:20 Vancocin IVPB 03/11/17 02:01 100 mls/hr Q6H JEIMY Administration Montelukast Sodium 10 mg 03/05/17 22:00 03/05/17 23:00 Singulair PO 10 mg HS JEIMY Administration Oxycodone/Acetaminophen 2 tab 03/06/17 08:20 03/06/17 11:58 Percocet 5/325 Mg Tab PO 2 tab QID PRN Administration Pain, severe (8-10) Potassium Chloride 20 meq 04/07/17 10:00 03/06/17 11:57 K-Dur 20 Meq Er Tab PO 20 meq DAILY JEIMY Administration Rosuvastatin Calcium 5 mg 03/05/17 22:00 03/05/17 23:00 Crestor PO 5 mg HS JEIMY Administration - Patient Studies Lab Studies: Lab Studies 03/06/17 03/06/17 Range/Units 10:31 06:31 WBC 27.3 H (4.8-10.8) K/uL RBC 4.19 L (4.40-5.90) Mil/uL Hgb 11.1 L (12.0-18.0) g/dL Hct 35.4 (35.0-51.0) % MCV 84.5 (80.0-94.0) fL MCH 26.4 L (27.0-31.0) pg MCHC 31.3 L (33.0-37.0) g/dL RDW 16.1 H (11.5-14.5) % Plt Count 383 (130-400) K/uL MPV 7.6 (7.2-11.7) fL Neut % (Auto) 84.1 H (50.0-75.0) % Lymph % (Auto) 4.9 L (20.0-40.0) % [place] % (Auto) 10.7 H (0.0-10.0) % Eos % (Auto) 0.2 (0.0-4.0) % Baso % (Auto) 0.1 (0.0-2.0) % Neut # 23.0 H (1.8-7.0) K/uL Lymph # 1.3 (1.0-4.3) K/uL [place] # 2.9 H (0.0-0.8) K/uL Eos # 0.1 (0.0-0.7) K/uL Baso # 0.0 (0.0-0.2) K/uL Neutrophils % (Manual) 83 H (50-75) % Lymphocytes % (Manual) 5 L (20-40) % Monocytes % (Manual) 12 H (0-10) % Toxic Granulation Present Platelet Estimate Normal (NORMAL) Large Platelets Present Polychromasia Slight Hypochromasia (manual) Slight Poikilocytosis (manual Slight Anisocytosis (manual) Slight Microcytosis (manual) Slight Target Cells Slight Helmet Cells Slight Sodium 136 (132-148) mmol/L Potassium 4.7 (3.6-5.2) mmol/L Chloride 92 L (98-107) mmol/L Carbon Dioxide 29 (22-30) mmol/L Anion Gap 20 (10-20) BUN 17 (9-20) mg/dL Creatinine 0.6 L (0.8-1.5) MG/DL Est GFR ( Amer) > 60 Est GFR (Non-Af Amer) > 60 Random Glucose 119 H (75-110) mg/dL Calcium 7.9 L (8.6-10.4) mg/dl Phosphorus 3.8 (2.5-4.5) mg/dL Magnesium 2.1 (1.6-2.3) mg/dL Total Bilirubin 0.8 (0.2-1.3) mg/dL AST 28 (17-59) U/L ALT 21 (21-72) U/L Alkaline Phosphatase 73 (38-126) U/L Total Protein 7.7 (6.3-8.3) g/dL Albumin 3.3 L (3.5-5.0) g/dL Globulin 4.4 H (2.2-3.9) gm/dL Albumin/Globulin Ratio 0.8 L (1.0-2.1) Urine Opiates Screen Positive (NEGATIVE) Urine Methadone Screen Negative (NEGATIVE) Ur Barbiturates Screen Negative (NEGATIVE) Ur Phencyclidine Scrn Negative (NEGATIVE) Ur Amphetamines Screen Negative (NEGATIVE) U Benzodiazepines Scrn Positive (NEGATIVE) U Oth Cocaine Metabols Positive (NEGATIVE) U Cannabinoids Screen Negative (NEGATIVE) Laboratory Results - last 24 hr 03/06/17 03/06/17 06:31 10:31 WBC 27.3 H RBC 4.19 L Hgb 11.1 L Hct 35.4 MCV 84.5 MCH 26.4 L MCHC 31.3 L RDW 16.1 H Plt Count 383 MPV 7.6 Neut % (Auto) 84.1 H Lymph % (Auto) 4.9 L [place] % (Auto) 10.7 H Eos % (Auto) 0.2 Baso % (Auto) 0.1 Neut # 23.0 H Lymph # 1.3 [place] # 2.9 H Eos # 0.1 Baso # 0.0 Neutrophils % (Manual) 83 H Lymphocytes % (Manual) 5 L Monocytes % (Manual) 12 H Toxic Granulation Present Platelet Estimate Normal Large Platelets Present Polychromasia Slight Hypochromasia (manual) Slight Poikilocytosis (manual Slight Anisocytosis (manual) Slight Microcytosis (manual) Slight Target Cells Slight Helmet Cells Slight Sodium 136 Potassium 4.7 Chloride 92 L Carbon Dioxide 29 Anion Gap 20 BUN 17 Creatinine 0.6 L Est GFR ( Amer) > 60 Est GFR (Non-Af Amer) > 60 Random Glucose 119 H Calcium 7.9 L Phosphorus 3.8 Magnesium 2.1 Total Bilirubin 0.8 AST 28 ALT 21 Alkaline Phosphatase 73 Total Protein 7.7 Albumin 3.3 L Globulin 4.4 H Albumin/Globulin Ratio 0.8 L Urine Opiates Screen Positive Urine Methadone Screen Negative Ur Barbiturates Screen Negative Ur Phencyclidine Scrn Negative Ur Amphetamines Screen Negative U Benzodiazepines Scrn Positive U Oth Cocaine Metabols Positive U Cannabinoids Screen Negative EKG/Cardiology Studies: Cardiology / EKG Studies 03/06/17 08:00 EKG [ELECTROCARDIOGRAM] Routine Comment: Mode Of Transportation: Reason For Exam: Follow-up/AFib Review of Systems - Review of Systems Review of Systems: see subjective Critical Care Progress Note - Nutrition Nutrition: Nutrition Category Date Time Status Liquid Diet [DIET] Diets 03/06/17 Lunch Active Assessment/Plan - Assessment and Plan (Free Text) Assessment: 38-year-old male with past medical history of drug abuse, HTN, CAD, CHF, Afib, COPD, ARL[place], Herniated discs L-spine, Bipolar/Depression, Appendectomy (2008), Coronary stents x4 ([id number]). (02/21) presented with encapsulated splenic hemorrhage. (03/05) Patient p/w enlarging encapsulated hemorrhage. Now s/p US guided aspiration of hematoma. Plan: Neuro: Alert and oriented 3; agitated and combative at times Pulm: No acute issues, breathing spontaneously on room air CV: Hemodynamically stable. HTN Hx A fib Hx - Can increase cardizem Hem: Pt s/p US aspiration of ~ 1000cc of blood Patient tolerated procedure If bleeding continues, patient will likely need embolization. Renal: No acute issues, urine output within normal limits, will monitor. Endo: No acute issues Maintain euglycemia GI: Heart Healthy Diet- Liquid ID: Leukocytosis noted Was previously being treated for MRSA On Vanc and Primaxin Prophylaxis: DVT proph - Anticoagulation held with current bleed, SCDs contraindicated due to cellulitis GI proph - Pepcid Disp: Medically stable for downgrade from ICU care. <Marilynn Valdes - Last Filed: 03/06/17 18:07> CCU Objective - Vital Signs / Intake & Output Vital Signs (Last 4 hours): Vital Signs BP 03/06/17 14:19 133/100 H Intake and Output (Last 8hrs): Intake & Output 03/06/17 03/06/17 03/06/17 06:59 14:59 22:59 Intake Total 950 750 Output Total 600 700 Balance 350 50 Weight 320 lb 5 oz Intake: Intake, IV Amount 300 300 Left Forearm 300 300 Oral 450 Blood Product 650 Output: Urine 600 700 Urine, Voided 600 700 Other: # Voids Urine, Voided 1 # Bowel Movements 0 - Medications Active Medications: Active Medications Generic Name Dose Route Start Last Admin Trade Name Freq PRN Reason Stop Dose Admin Acetaminophen 650 mg 03/05/17 18:57 Tylenol 325mg Tab PO Q6 PRN Fever >100.4 F Albuterol 2 puff 03/06/17 09:00 03/06/17 08:48 Ventolin Hfa 90 Mcg/Actuation (8 G) IH Not Given RBID JEIMY Alprazolam 1 mg 03/05/17 18:00 03/06/17 14:20 Xanax PO 1 mg QID JEIMY Administration Carvedilol 12.5 mg 03/05/17 18:00 03/06/17 11:56 Coreg PO 12.5 mg BID JEIMY Administration Digoxin 0.125 mg 03/06/17 18:00 Lanoxin PO DAILY@1800 JEIMY Diltiazem HCl 60 mg 03/06/17 10:33 03/06/17 11:57 Cardizem PO 60 mg Q6 JEIMY Administration Enalapril Maleate 20 mg 03/06/17 10:00 03/06/17 14:19 Vasotec PO 20 mg DAILY JEIMY Administration Fluoxetine HCl 40 mg 03/06/17 10:00 03/06/17 12:03 Prozac PO 40 mg DAILY JEIMY Administration Furosemide 40 mg 03/06/17 10:00 03/06/17 11:57 Lasix PO 40 mg DAILY JEIMY Administration Gabapentin 600 mg 03/05/17 22:00 03/05/17 23:00 Neurontin PO 600 mg HS JEIMY Administration Gabapentin 300 mg 03/06/17 10:00 03/06/17 11:57 Neurontin PO 300 mg QAM JEIMY Administration Hydralazine HCl 25 mg 03/06/17 10:00 03/06/17 11:56 Apresoline PO 25 mg DAILY JEIMY Administration Hydrochlorothiazide 50 mg 03/06/17 10:00 03/06/17 11:56 Hydrodiuril PO 50 mg DAILY JEIMY Administration Imipenem/Cilastatin Sodium 500 100 mls @ 100 mls/hr 03/05/17 19:00 03/06/17 12: 01 mg/ Sodium Chloride IVPB 100 mls/hr Q6H JEIMY Administration Vancomycin HCl/Dextrose 100 mls @ 100 mls/hr 03/06/17 02:00 03/06/17 14:20 Vancocin IVPB 03/11/17 02:01 100 mls/hr Q6H JEIMY Administration Montelukast Sodium 10 mg 03/05/17 22:00 03/05/17 23:00 Singulair PO 10 mg HS JEIMY Administration Oxycodone/Acetaminophen 2 tab 03/06/17 08:20 03/06/17 11:58 Percocet 5/325 Mg Tab PO 2 tab QID PRN Administration Pain, severe (8-10) Potassium Chloride 20 meq 03/06/17 10:00 03/06/17 11:57 K-Dur 20 Meq Er Tab PO 20 meq DAILY JEIMY Administration Rosuvastatin Calcium 5 mg 03/05/17 22:00 03/05/17 23:00 Crestor PO 5 mg HS JEIMY Administration - Patient Studies Lab Studies: Microbiology Studies 03/05/17 17:00 Blood Culture - Preliminary Blood NO GROWTH AFTER 24 HOURS 03/05/17 17:00 Blood Culture - Preliminary Blood NO GROWTH AFTER 24 HOURS Lab Studies 03/06/17 03/06/17 Range/Units 10:31 06:31 WBC 27.3 H (4.8-10.8) K/uL RBC 4.19 L (4.40-5.90) Mil/uL Hgb 11.1 L (12.0-18.0) g/dL Hct 35.4 (35.0-51.0) % MCV 84.5 (80.0-94.0) fL MCH 26.4 L (27.0-31.0) pg MCHC 31.3 L (33.0-37.0) g/dL RDW 16.1 H (11.5-14.5) % Plt Count 383 (130-400) K/uL MPV 7.6 (7.2-11.7) fL Neut % (Auto) 84.1 H (50.0-75.0) % Lymph % (Auto) 4.9 L (20.0-40.0) % [place] % (Auto) 10.7 H (0.0-10.0) % Eos % (Auto) 0.2 (0.0-4.0) % Baso % (Auto) 0.1 (0.0-2.0) % Neut # 23.0 H (1.8-7.0) K/uL Lymph # 1.3 (1.0-4.3) K/uL [place] # 2.9 H (0.0-0.8) K/uL Eos # 0.1 (0.0-0.7) K/uL Baso # 0.0 (0.0-0.2) K/uL Neutrophils % (Manual) 83 H (50-75) % Lymphocytes % (Manual) 5 L (20-40) % Monocytes % (Manual) 12 H (0-10) % Toxic Granulation Present Platelet Estimate Normal (NORMAL) Large Platelets Present Polychromasia Slight Hypochromasia (manual) Slight Poikilocytosis (manual Slight Anisocytosis (manual) Slight Microcytosis (manual) Slight Target Cells Slight Helmet Cells Slight Sodium 136 (132-148) mmol/L Potassium 4.7 (3.6-5.2) mmol/L Chloride 92 L (98-107) mmol/L Carbon Dioxide 29 (22-30) mmol/L Anion Gap 20 (10-20) BUN 17 (9-20) mg/dL Creatinine 0.6 L (0.8-1.5) MG/DL Est GFR ( Amer) > 60 Est GFR (Non-Af Amer) > 60 Random Glucose 119 H (75-110) mg/dL Calcium 7.9 L (8.6-10.4) mg/dl Phosphorus 3.8 (2.5-4.5) mg/dL Magnesium 2.1 (1.6-2.3) mg/dL Total Bilirubin 0.8 (0.2-1.3) mg/dL AST 28 (17-59) U/L ALT 21 (21-72) U/L Alkaline Phosphatase 73 (38-126) U/L Total Protein 7.7 (6.3-8.3) g/dL Albumin 3.3 L (3.5-5.0) g/dL Globulin 4.4 H (2.2-3.9) gm/dL Albumin/Globulin Ratio 0.8 L (1.0-2.1) Urine Opiates Screen Positive (NEGATIVE) Urine Methadone Screen Negative (NEGATIVE) Ur Barbiturates Screen Negative (NEGATIVE) Ur Phencyclidine Scrn Negative (NEGATIVE) Ur Amphetamines Screen Negative (NEGATIVE) U Benzodiazepines Scrn Positive (NEGATIVE) U Oth Cocaine Metabols Positive (NEGATIVE) U Cannabinoids Screen Negative (NEGATIVE) Laboratory Results - last 24 hr 03/06/17 03/06/17 06:31 10:31 WBC 27.3 H RBC 4.19 L Hgb 11.1 L Hct 35.4 MCV 84.5 MCH 26.4 L MCHC 31.3 L RDW 16.1 H Plt Count 383 MPV 7.6 Neut % (Auto) 84.1 H Lymph % (Auto) 4.9 L [place] % (Auto) 10.7 H Eos % (Auto) 0.2 Baso % (Auto) 0.1 Neut # 23.0 H Lymph # 1.3 [place] # 2.9 H Eos # 0.1 Baso # 0.0 Neutrophils % (Manual) 83 H Lymphocytes % (Manual) 5 L Monocytes % (Manual) 12 H Toxic Granulation Present Platelet Estimate Normal Large Platelets Present Polychromasia Slight Hypochromasia (manual) Slight Poikilocytosis (manual Slight Anisocytosis (manual) Slight Microcytosis (manual) Slight Target Cells Slight Helmet Cells Slight Sodium 136 Potassium 4.7 Chloride 92 L Carbon Dioxide 29 Anion Gap 20 BUN 17 Creatinine 0.6 L Est GFR ( Amer) > 60 Est GFR (Non-Af Amer) > 60 Random Glucose 119 H Calcium 7.9 L Phosphorus 3.8 Magnesium 2.1 Total Bilirubin 0.8 AST 28 ALT 21 Alkaline Phosphatase 73 Total Protein 7.7 Albumin 3.3 L Globulin 4.4 H Albumin/Globulin Ratio 0.8 L Urine Opiates Screen Positive Urine Methadone Screen Negative Ur Barbiturates Screen Negative Ur Phencyclidine Scrn Negative Ur Amphetamines Screen Negative U Benzodiazepines Scrn Positive U Oth Cocaine Metabols Positive U Cannabinoids Screen Negative EKG/Cardiology Studies: Cardiology / EKG Studies 03/06/17 08:00 EKG [ELECTROCARDIOGRAM] Routine Comment: Mode Of Transportation: Reason For Exam: Follow-up/AFib Critical Care Progress Note - Nutrition Nutrition: Nutrition Category Date Time Status Liquid Diet [DIET] Diets 03/06/17 Lunch Active Attending/Attestation - Attestation I have personally seen and examined this patient.: Yes I have fully participated in the care of the patient.: Yes I have reviewed all pertinent clinical information: Yes Notes (Text): 03/06/17 18:05 patient seen and examined, stable. Embolization today by IR of spleen, walking to nursing station frequently. wbc count increased, last fever yesterday at 5 and 9 pm, on imipenem since 03/05 and vancomycin started today
--- NOTE | 2017-03-06 17:54 | CP.PCM.PN ---
Subjective - Date & Time of Evaluation Date of Evaluation: 03/06/17 Time of Evaluation: 07:00 - Subjective Subjective: less sob c/o pain afebrile t max 102 blood c/s neg thus far had MRSA blood 1 week ago recc: PILY r/o endocarditis consider ct and or MRI of spine to r/o OM Objective - Vital Signs/Intake and Output Vital Signs (last 24 hours): Temp Pulse Resp BP Pulse Ox 98.0 F 103 H 21 133/100 H 96 03/06/17 14:00 03/06/17 06:00 03/06/17 06:00 03/06/17 14:19 03/06/17 06:00 Intake and Output: 03/06/17 03/06/17 06:59 18:59 Intake Total 950 750 Output Total 700 700 Balance 250 50 - Medications Medications: Current Medications Acetaminophen (Tylenol 325mg Tab) 650 mg PO Q6 PRN PRN Reason: Fever >100.4 F Albuterol (Ventolin Hfa 90 Mcg/Actuation (8 G)) 2 puff IH RBID [facility] Last Admin: 03/06/17 08:48 Dose: Not Given Alprazolam (Xanax) 1 mg PO QID [facility] Last Admin: 03/06/17 14:20 Dose: 1 mg Carvedilol (Coreg) 12.5 mg PO BID [facility] Last Admin: 03/06/17 11:56 Dose: 12.5 mg Digoxin (Lanoxin) 0.125 mg PO DAILY@1800 JEIMY Diltiazem HCl (Cardizem) 60 mg PO Q6 [facility] Last Admin: 03/06/17 11:57 Dose: 60 mg Enalapril Maleate (Vasotec) 20 mg PO DAILY [facility] Last Admin: 03/06/17 14:19 Dose: 20 mg Fluoxetine HCl (Prozac) 40 mg PO DAILY [facility] Last Admin: 03/06/17 12:03 Dose: 40 mg Furosemide (Lasix) 40 mg PO DAILY [facility] Last Admin: 03/06/17 11:57 Dose: 40 mg Gabapentin (Neurontin) 600 mg PO HS [facility] Last Admin: 03/05/17 23:00 Dose: 600 mg Gabapentin (Neurontin) 300 mg PO QAM [facility] Last Admin: 03/06/17 11:57 Dose: 300 mg Hydralazine HCl (Apresoline) 25 mg PO DAILY [facility] Last Admin: 03/06/17 11:56 Dose: 25 mg Hydrochlorothiazide (Hydrodiuril) 50 mg PO DAILY [facility] Last Admin: 03/06/17 11:56 Dose: 50 mg Imipenem/Cilastatin Sodium 500 (mg/ Sodium Chloride) 100 mls @ 100 mls/hr IVPB Q6H [facility] Last Admin: 03/06/17 12:01 Dose: 100 mls/hr Vancomycin HCl/Dextrose (Vancocin) 100 mls @ 100 mls/hr IVPB Q6H [facility] Stop: 03/11/17 02:01 Last Admin: 03/06/17 14:20 Dose: 100 mls/hr Montelukast Sodium (Singulair) 10 mg PO [facility] Last Admin: 03/05/17 23:00 Dose: 10 mg Oxycodone/Acetaminophen (Percocet 5/325 Mg Tab) 2 tab PO QID PRN PRN Reason: Pain, severe (8-10) Last Admin: 03/06/17 11:58 Dose: 2 tab Potassium Chloride (K-Dur 20 Meq Er Tab) 20 meq PO DAILY [facility] Last Admin: 03/06/17 11:57 Dose: 20 meq Rosuvastatin Calcium (Crestor) 5 mg PO [facility] Last Admin: 03/05/17 23:00 Dose: 5 mg - Labs Labs: 03/06/17 06:31 03/06/17 06:31 PT 16.5 SECONDS (9.7-12.2) H 03/05/17 09:58 INR 1.4 03/05/17 09:58 APTT 35 SECONDS (21-34) H 03/05/17 09:58 - Constitutional Appears: Chronically Ill - Head Exam Head Exam: NORMOCEPHALIC - Eye Exam Eye Exam: absent: Scleral icterus - ENT Exam ENT Exam: Mucous Membranes Dry - Neck Exam Neck Exam: absent: Lymphadenopathy - Respiratory Exam Respiratory Exam: Decreased Breath Sounds, Rhonchi - Cardiovascular Exam Cardiovascular Exam: Tachycardia, REGULAR RHYTHM, +S1, +S2 - GI/Abdominal Exam GI & Abdominal Exam: Distended, Soft. absent: Tenderness - Rectal Exam Rectal Exam: Deferred - Exam Exam: NORMAL INSPECTION Assessment and Plan (1) Chronic left ventricular systolic dysfunction Status: Acute (2) Atrial fibrillation with rapid ventricular response Status: Chronic (3) Degenerative disc disease, lumbar Status: Chronic (4) Hypertension Status: Chronic (5) Sleep apnea Status: Chronic (6) ACS (acute coronary syndrome) Status: Acute (7) Abdominal pain Status: Acute (8) Anticoagulated on Coumadin Status: Acute
[2017-03-06] MEDS: Digoxin 125 mcg (0.125 mg) Tab PO SCH (18:32)
[2017-03-07] MEDS: Vancomycin 500mg/D5W 100 ml 100 ML IVPB SCH ×2 (01:00→08:02)
[2017-03-07] MEDS: Oxycodone/Acetaminophen 5/325 mg Tab PO PRN ×4 (02:57→22:19)
[2017-03-07 06:40] LABS: BASO # 0.1 K/uL (0.0-0.2); BASO % 0.5 % (0.0-2.0); EOS # 0.2 K/uL (0.0-0.7); EOS % 1.3 % (0.0-4.0); HEMATOCRIT 29.8 % (35.0-51.0); LYMPH # 1.5 K/uL (1.0-4.3); LYMPH % 11.7 % (20.0-40.0); MEAN CELL VOLUME 84.7 fL (80.0-94.0); MEAN CORPUSCULAR HEMOGLOBIN 26.5 pg (27.0-31.0); MEAN CORPUSCULAR HGB CONC 31.2 g/dL (33.0-37.0); MEAN PLATELET VOLUME 7.5 fL (7.2-11.7); MONO # 1.3 K/uL (0.0-0.8); MONO % 9.7 % (0.0-10.0); RED CELL DISTRIBUTION WIDTH 15.9 % (11.5-14.5)
[2017-03-07 06:53] LABS: CHLORIDE 106 mmol/L (98-107); SODIUM 134 mmol/L (132-148)
[2017-03-07 06:55] LABS: GFR AFRICAN-AMERICAN > 60
[2017-03-07 06:56] LABS: ALB/GLOB RATIO 0.6 (1.0-2.1); ALKALINE PHOSPHATASE 28 U/L (38-126); ALT/SGPT 16 U/L (21-72); AST/SGOT 15 U/L (17-59); BILIRUBIN,TOTAL 0.2 mg/dL (0.2-1.3); BLOOD UREA NITROGEN 10 mg/dL (9-20); CARBON DIOXIDE 18 mmol/L (22-30); GLUCOSE,RANDOM 228 mg/dL (75-110); PHOSPHOROUS 2.1 mg/dL (2.5-4.5)
[2017-03-07 06:57] LABS: MAGNESIUM 1.1 mg/dL (1.6-2.3)
[2017-03-07 07:17] LABS: POTASSIUM 2.5 mmol/L (3.6-5.2)
[2017-03-07] MEDS ORDERED: Potassium Ch 20mEq in D5-1/2NS 1,000 ML IV SCH (08:00)
[2017-03-07] MEDS: Albuterol HFA 90 mcg/actuation (8 g) IH SCH (08:15)
[2017-03-07] MEDS ORDERED: Potassium Chloride 20 mEq ER Tab PO ONE (08:47)
--- NOTE | 2017-03-07 08:50 | CP.PCM.PN ---
Subjective - Date & Time of Evaluation Date of Evaluation: 03/07/17 Time of Evaluation: 08:45 - Subjective Subjective: patient is s/p drainage of splenic hematoma. abdominal pain is better. Objective - Vital Signs/Intake and Output Vital Signs (last 24 hours): Temp Pulse Resp BP Pulse Ox 97.8 F 80 20 112/76 97 03/07/17 00:00 03/07/17 04:00 03/07/17 04:00 03/07/17 04:00 03/07/17 04:00 Intake and Output: 03/07/17 03/07/17 06:59 18:59 Intake Total 1840 Output Total 660 Balance 1180 - Medications Medications: Current Medications Acetaminophen (Tylenol 325mg Tab) 650 mg PO Q6 PRN PRN Reason: Fever >100.4 F Albuterol (Ventolin Hfa 90 Mcg/Actuation (8 G)) 2 puff IH RBID [facility] Last Admin: 03/07/17 08:15 Dose: 2 puff Alprazolam (Xanax) 1 mg PO QID [facility] Last Admin: 03/06/17 21:19 Dose: 1 mg Carvedilol (Coreg) 12.5 mg PO BID [facility] Last Admin: 03/06/17 18:28 Dose: 12.5 mg Digoxin (Lanoxin) 0.125 mg PO DAILY@1800 [facility] Last Admin: 03/06/17 18:32 Dose: 0.125 mg Diltiazem HCl (Cardizem) 60 mg PO Q6 [facility] Last Admin: 03/07/17 06:04 Dose: 60 mg Enalapril Maleate (Vasotec) 20 mg PO DAILY [facility] Last Admin: 03/06/17 14:19 Dose: 20 mg Fluoxetine HCl (Prozac) 40 mg PO DAILY [facility] Last Admin: 03/06/17 12:03 Dose: 40 mg Furosemide (Lasix) 40 mg PO DAILY [facility] Last Admin: 03/06/17 11:57 Dose: 40 mg Gabapentin (Neurontin) 600 mg PO HS [facility] Last Admin: 03/06/17 21:19 Dose: 600 mg Gabapentin (Neurontin) 300 mg PO QAM [facility] Last Admin: 03/06/17 11:57 Dose: 300 mg Hydralazine HCl (Apresoline) 25 mg PO DAILY [facility] Last Admin: 03/06/17 11:56 Dose: 25 mg Hydrochlorothiazide (Hydrodiuril) 50 mg PO DAILY [facility] Last Admin: 03/06/17 11:56 Dose: 50 mg Imipenem/Cilastatin Sodium 500 (mg/ Sodium Chloride) 100 mls @ 100 mls/hr IVPB Q6H [facility] Last Admin: 03/07/17 06:00 Dose: 100 mls/hr Vancomycin HCl/Dextrose (Vancocin) 100 mls @ 100 mls/hr IVPB Q6H [facility] Stop: 03/11/17 02:01 Last Admin: 03/07/17 08:02 Dose: 100 mls/hr Potassium Chloride/Dextrose/Sod Cl (Potassium Chl 20 Meq In D5-1/2ns) 1,000 mls @ 50 mls/hr IV .Q20H [facility] Stop: 03/09/17 19:59 Last Admin: 03/07/17 08:29 Dose: 50 mls/hr Calcium Gluconate 4.65 meq/ (Sodium Chloride) 110 mls @ 100 mls/hr IV ONCE ONE Stop: 03/07/17 09:05 Last Admin: 03/07/17 08:29 Dose: 100 mls/hr Montelukast Sodium (Singulair) 10 mg PO [facility] Last Admin: 03/06/17 21:19 Dose: 10 mg Oxycodone/Acetaminophen (Percocet 5/325 Mg Tab) 2 tab PO QID PRN PRN Reason: Pain, severe (8-10) Last Admin: 03/07/17 07:59 Dose: 2 tab Potassium Chloride (K-Dur 20 Meq Er Tab) 20 meq PO DAILY [facility] Last Admin: 03/06/17 11:57 Dose: 20 meq Potassium Chloride (K-Dur 20 Meq Er Tab) 60 meq PO ONCE ONE Stop: 03/07/17 08:48 Rosuvastatin Calcium (Crestor) 5 mg PO [facility] Last Admin: 03/06/17 21:19 Dose: 5 mg - Labs Labs: 03/07/17 06:34 03/07/17 06:35 PT 16.5 SECONDS (9.7-12.2) H 03/05/17 09:58 INR 1.4 03/05/17 09:58 APTT 35 SECONDS (21-34) H 03/05/17 09:58 - Constitutional Appears: Non-toxic - Head Exam Head Exam: NORMAL INSPECTION - Eye Exam Eye Exam: Normal appearance - Neck Exam Neck Exam: Normal Inspection - Respiratory Exam Respiratory Exam: NORMAL BREATHING PATTERN - Cardiovascular Exam Cardiovascular Exam: REGULAR RHYTHM - GI/Abdominal Exam GI & Abdominal Exam: Distended, Normal Bowel Sounds - Rectal Exam Rectal Exam: Deferred - Extremities Exam Extremities Exam: absent: Pedal Edema - Back Exam Back Exam: NORMAL INSPECTION - Neurological Exam Neurological Exam: Alert - Psychiatric Exam Psychiatric exam: Normal Affect - Skin Skin Exam: Normal Color Assessment and Plan (1) Spleen hematoma Assessment & Plan: s/p drainage Status: Acute (2) Atrial fibrillation with rapid ventricular response Assessment & Plan: improved rate. holding anticoagulation Status: Chronic (3) Hypertension Assessment & Plan: monitor blood pressure Status: Chronic (4) CAD (coronary artery disease) Assessment & Plan: no angina Status: Chronic (5) Chronic left ventricular systolic dysfunction Assessment & Plan: no current heart failure. patient does not wish to have AICD Status: Acute
[2017-03-07] MEDS: HYDROmorphone 1 mg/ml ISec IVP PRN ×2 (09:31→19:05)
[2017-03-07] MEDS ORDERED: Potassium & Sodium Phosphate PO SCH (10:00)
[2017-03-07] MEDS: Potassium Chloride 20 mEq ER Tab PO SCH ×2 (10:10→10:16)
[2017-03-07 12:09] LABS: CHLORIDE 88 mmol/L (98-107)
[2017-03-07 12:10] LABS: POTASSIUM 4.6 mmol/L (3.6-5.2); SODIUM 130 mmol/L (132-148)
[2017-03-07 12:12] LABS: AST/SGOT 20 U/L (17-59); BILIRUBIN,TOTAL 0.6 mg/dL (0.2-1.3); CARBON DIOXIDE 32 mmol/L (22-30); GFR AFRICAN-AMERICAN > 60
[2017-03-07 12:13] LABS: ALB/GLOB RATIO 0.8 (1.0-2.1); ALKALINE PHOSPHATASE 74 U/L (38-126); ALT/SGPT 19 U/L (21-72); BLOOD UREA NITROGEN 14 mg/dL (9-20); CALCIUM 8.2 mg/dl (8.6-10.4); GLUCOSE,RANDOM 131 mg/dL (75-110); PHOSPHOROUS 3.5 mg/dL (2.5-4.5); TOTAL PROTEIN 7.5 g/dL (6.3-8.3)
--- NOTE | 2017-03-07 12:39 | CP.PCM.PN ---
Subjective - Date & Time of Evaluation Date of Evaluation: 03/07/17 Time of Evaluation: 10:10 - Subjective Subjective: Vascular Surgery Dr. Senior Pt S&E @bedside. had IR drainage of splenic hematoma yesterday by IR. tolerated procedure well. NAEO. c/o abd pain this AM worse on L flank as well as hunger. no N/V, F/C. tolerating diet. requesting diet to be advanced. Objective - Vital Signs/Intake and Output Vital Signs (last 24 hours): Temp Pulse Resp BP Pulse Ox 97.1 F L 96 H 20 100/65 97 03/07/17 08:00 03/07/17 08:00 03/07/17 08:00 03/07/17 10:17 03/07/17 04:00 Intake and Output: 03/07/17 03/07/17 06:59 18:59 Intake Total 1840 Output Total 660 Balance 1180 - Medications Medications: Current Medications Acetaminophen (Tylenol 325mg Tab) 650 mg PO Q6 PRN PRN Reason: Fever >100.4 F Albuterol (Ventolin Hfa 90 Mcg/Actuation (8 G)) 2 puff IH RBID [facility] Last Admin: 03/07/17 08:15 Dose: 2 puff Alprazolam (Xanax) 1 mg PO QID [facility] Last Admin: 03/07/17 09:24 Dose: 1 mg Carvedilol (Coreg) 12.5 mg PO BID [facility] Last Admin: 03/07/17 09:26 Dose: 12.5 mg Digoxin (Lanoxin) 0.125 mg PO DAILY@1800 [facility] Last Admin: 03/06/17 18:32 Dose: 0.125 mg Diltiazem HCl (Cardizem) 60 mg PO Q6 [facility] Last Admin: 03/07/17 06:04 Dose: 60 mg Enalapril Maleate (Vasotec) 20 mg PO DAILY [facility] Last Admin: 03/07/17 10:13 Dose: Not Given Fluoxetine HCl (Prozac) 40 mg PO DAILY [facility] Last Admin: 03/07/17 09:23 Dose: 40 mg Furosemide (Lasix) 40 mg PO DAILY [facility] Last Admin: 03/07/17 10:17 Dose: 40 mg Gabapentin (Neurontin) 600 mg PO HS [facility] Last Admin: 03/06/17 21:19 Dose: 600 mg Gabapentin (Neurontin) 300 mg PO QAM [facility] Last Admin: 03/07/17 09:23 Dose: 300 mg Hydralazine HCl (Apresoline) 25 mg PO DAILY [facility] Last Admin: 03/07/17 10:11 Dose: Not Given Hydrochlorothiazide (Hydrodiuril) 50 mg PO DAILY [facility] Last Admin: 03/06/17 11:56 Dose: 50 mg Hydromorphone HCl (Dilaudid) 1 mg IVP Q8H PRN PRN Reason: severe pain Last Admin: 03/07/17 09:31 Dose: 1 mg Imipenem/Cilastatin Sodium 500 (mg/ Sodium Chloride) 100 mls @ 100 mls/hr IVPB Q6H [facility] Last Admin: 03/07/17 06:00 Dose: 100 mls/hr Vancomycin HCl/Dextrose (Vancocin) 100 mls @ 100 mls/hr IVPB Q6H [facility] Stop: 03/11/17 02:01 Last Admin: 03/07/17 08:02 Dose: 100 mls/hr Montelukast Sodium (Singulair) 10 mg PO [facility] Last Admin: 03/06/17 21:19 Dose: 10 mg Oxycodone/Acetaminophen (Percocet 5/325 Mg Tab) 2 tab PO QID PRN PRN Reason: Pain, severe (8-10) Last Admin: 03/07/17 07:59 Dose: 2 tab Potassium Chloride (K-Dur 20 Meq Er Tab) 20 meq PO DAILY [facility] Last Admin: 03/06/17 11:57 Dose: 20 meq Potassium Phos/Sodium Phos (Neutra-Phos) 1 pkt PO TID [facility] Stop: 03/08/17 10:00 Last Admin: 03/07/17 10:16 Dose: 1 pkt Rosuvastatin Calcium (Crestor) 5 mg PO [facility] Last Admin: 03/06/17 21:19 Dose: 5 mg - Labs Labs: 03/07/17 06:34 03/07/17 11:44 PT 16.5 SECONDS (9.7-12.2) H 03/05/17 09:58 INR 1.4 03/05/17 09:58 APTT 35 SECONDS (21-34) H 03/05/17 09:58 - Constitutional Appears: Non-toxic, No Acute Distress - Head Exam Head Exam: NORMAL INSPECTION - Eye Exam Eye Exam: Normal appearance - ENT Exam ENT Exam: Mucous Membranes Moist - Respiratory Exam Respiratory Exam: NORMAL BREATHING PATTERN. absent: Accessory Muscle Use, Respiratory Distress - GI/Abdominal Exam GI & Abdominal Exam: Distended (obese), Guarding (voluntary), Soft, Tenderness ( diffuse). absent: Rigid, Rebound - Neurological Exam Neurological Exam: Alert, Awake, Oriented x3 - Psychiatric Exam Psychiatric exam: Agitated - Skin Skin Exam: Dry, Intact, Warm Additional comments: multiple sites of redness and ecchymotic discolorations along legs and trunk Assessment and Plan - Assessment and Plan (Free Text) Assessment: 46 y/o M w/ large subcapsular splenic hematoma - will need embolization, if bleeding continues - cont to hold anti-coagulation - cont pain management - H/H stable F/u AM labs - Poor surgical candidate Pt discussed w/ Dr. Parrish Olivo DO PGY1
--- NOTE | 2017-03-07 12:50 | CON ---
DATE: 03/07/2017 LOCATION: ICU, room 14A. HISTORY OF PRESENT ILLNESS: This is a 46-year-old obese male presenting here with precordial chest p ain and supervening rapid atrial fibrillation and pneumonia and is now being referred for endocrine e valuation because of supervening persistent hypocalcemia as noted thereof. He admits to generalized body weakness, but denies any paresthesias in both upper and lower extremities nor in the facial area thereof. He admits to some tingling in the fingertips of his right hand otherwise PAST MEDICAL HISTORY: As mentioned above. Past medical history is quite a very extensive medical hi story as noted. History of coronary artery disease with previous coronary stent placements and also underlying cardiac tachyarrhythmias with previous admissions for rapid atrial fibrillation and conges tive heart failure. History of chronic obstructive lung disease and sleep apnea, currently not using his CPAP device, history of hypertensive cardiovascular disease and dyslipidemia, history of underly ing morbid obesity. He previously was on oral anticoagulation therapy, but has been off the aforemen tioned. History of generalized anxiety and depression and also has chronic pain syndrome with chemic al dependence on multiple narcotic analgesics as noted. History of peripheral arterial disease and v asculopathy with lower extremity edema. History of previous admissions for pulmonary edema related t o underlying cardiomyopathy, also recent splenic hemorrhage and hematoma related to a recent traumati c fall and injury. FAMILY HISTORY: Positive for hypertension and diabetes. SOCIAL HISTORY: The patient has a supportive family, is known to have polysubstance abuse with nicot ine dependence, chronic alcoholism, cocaine abuse and chemical dependence on narcotic analgesics. REVIEW OF SYSTEMS: Admits to generalized body weakness with easy fatigability and tiredness and subo ptimal energy level. Also admits to episodic dizziness and lightheadedness, worse on the day of admi ssion. Also, admits to precordial chest pain and intermittent palpitations with progressive shortnes s of breath initially on exertion and then at rest. Also admits to dyspepsia, nausea and variable or al intake with vague upper abdominal pains and habitual constipation. Also, admits to lower extremit y paresthesias and swelling and edema and current erythema. PHYSICAL EXAMINATION: GENERAL: This is a morbidly obese male, in no apparent distress. VITAL SIGNS: Blood pressure of 150/100, pulse of 100 beats per minute irregular, temperature 99, res pirations 20, height 5 feet 10, weight is 320 pounds. HEENT: Head normocephalic. Eyes anicteric with pink conjunctivae. Fundoscopy not possible at this time. Ears, nose and throat otherwise normal. NECK: Supple. Thyroid gland is normal size. No carotid bruits or any cervical adenopathy. CARDIOPULMONARY: Some adynamic precordium. S1, S2 is rapid and irregular. LUNGS: Show scattered rhonchi and bibasilar dullness. ABDOMEN: Obese, soft with positive bowel sounds. EXTREMITIES: There is +2 bipedal edema. Pulses are +2 bilaterally. LABORATORY DATA: His chemistries showed a BUN of 10, sodium 134, potassium 2.5, chloride 106, CO2 of 18, glucose 208 and creatinine 0.3. His proBNP was 5560. The calcium level initially reported toda y was 4.0 with an albumin of 1.5 and a corrected calcium of 6.5. ASSESSMENT: This is a 46-year-old male with rapid atrial fibrillation and underlying significant car diac vasculopathy with coronary artery disease and congestive heart failure at this time with underly ing cardiac tachyarrhythmias and cardiomyopathy and now has been evaluated to have asymptomatic hypoc alcemia which could be either a technical lab error versus a parathyroid-related etiology, although i t is quite unlikely since his calcium levels were actually normal initially over the past few days si f [facility]. Moreover, there is also no overt neuromuscular spasm or ____ related to the extreme h ypocalcemia as reported, so this may really be a lab error and pending laboratory results have been s ent out. PLAN OF MANAGEMENT: As discussed with the patient and the staff, we will obtain a comprehensive horm onal profile with a calcium and parathyroid hormone levels with serum magnesium and phosphorus levels , especially in the light of recent diuretic therapy. We will also obtain a baseline TSH and lipid p ivan and also hemoglobin A1c because of evidence of impaired glucose tolerance and the possibility of either prediabetes versus overt type 2 diabetes has to be excluded at this time. We will hold off a ny more calcium supplementation pending the repeat calcium studies to be obtained. We will follow. Yaquelin Cantu MD cc: [id number] TT: 03/07/2017 12:49:55 Confirmation # [id number] Dictation # [id number] tn
--- NOTE | 2017-03-07 15:06 | CP.PCM.PN ---
Subjective - Date & Time of Evaluation Date of Evaluation: 03/07/17 Time of Evaluation: 16:00 - Subjective Subjective: clinically same Objective - Vital Signs/Intake and Output Vital Signs (last 24 hours): Temp Pulse Resp BP Pulse Ox 97.1 F L 96 H 20 100/65 97 03/07/17 08:00 03/07/17 08:00 03/07/17 08:00 03/07/17 10:17 03/07/17 04:00 Intake and Output: 03/07/17 03/07/17 06:59 18:59 Intake Total 1840 Output Total 660 Balance 1180 - Medications Medications: Current Medications Acetaminophen (Tylenol 325mg Tab) 650 mg PO Q6 PRN PRN Reason: Fever >100.4 F Albuterol (Ventolin Hfa 90 Mcg/Actuation (8 G)) 2 puff IH RBID [facility] Last Admin: 03/07/17 08:15 Dose: 2 puff Alprazolam (Xanax) 1 mg PO QID [facility] Last Admin: 03/07/17 14:55 Dose: 1 mg Carvedilol (Coreg) 12.5 mg PO BID [facility] Last Admin: 03/07/17 09:26 Dose: 12.5 mg Digoxin (Lanoxin) 0.125 mg PO DAILY@1800 [facility] Last Admin: 03/06/17 18:32 Dose: 0.125 mg Diltiazem HCl (Cardizem) 60 mg PO Q6 [facility] Last Admin: 03/07/17 12:37 Dose: 60 mg Enalapril Maleate (Vasotec) 20 mg PO DAILY [facility] Last Admin: 03/07/17 10:13 Dose: Not Given Fluoxetine HCl (Prozac) 40 mg PO DAILY [facility] Last Admin: 03/07/17 09:23 Dose: 40 mg Furosemide (Lasix) 40 mg PO DAILY [facility] Last Admin: 03/07/17 10:17 Dose: 40 mg Gabapentin (Neurontin) 600 mg PO HS [facility] Last Admin: 03/06/17 21:19 Dose: 600 mg Gabapentin (Neurontin) 300 mg PO QAM [facility] Last Admin: 03/07/17 09:23 Dose: 300 mg Hydralazine HCl (Apresoline) 25 mg PO DAILY [facility] Last Admin: 03/07/17 10:11 Dose: Not Given Hydrochlorothiazide (Hydrodiuril) 50 mg PO DAILY [facility] Last Admin: 03/06/17 11:56 Dose: 50 mg Hydromorphone HCl (Dilaudid) 1 mg IVP Q8H PRN PRN Reason: severe pain Last Admin: 03/07/17 09:31 Dose: 1 mg Imipenem/Cilastatin Sodium 500 (mg/ Sodium Chloride) 100 mls @ 100 mls/hr IVPB Q6H [facility] Last Admin: 03/07/17 12:37 Dose: 100 mls/hr Vancomycin HCl/Dextrose (Vancocin) 100 mls @ 100 mls/hr IVPB Q6H [facility] Stop: 03/11/17 02:01 Last Admin: 03/07/17 08:02 Dose: 100 mls/hr Montelukast Sodium (Singulair) 10 mg PO [facility] Last Admin: 03/06/17 21:19 Dose: 10 mg Oxycodone/Acetaminophen (Percocet 5/325 Mg Tab) 2 tab PO QID PRN PRN Reason: Pain, severe (8-10) Last Admin: 03/07/17 12:41 Dose: 2 tab Potassium Chloride (K-Dur 20 Meq Er Tab) 20 meq PO DAILY [facility] Last Admin: 03/07/17 10:10 Dose: Not Given Rosuvastatin Calcium (Crestor) 5 mg PO [facility] Last Admin: 03/06/17 21:19 Dose: 5 mg - Labs Labs: 03/07/17 06:34 03/07/17 11:44 PT 16.5 SECONDS (9.7-12.2) H 03/05/17 09:58 INR 1.4 03/05/17 09:58 APTT 35 SECONDS (21-34) H 03/05/17 09:58 - Constitutional Appears: Well - Head Exam Head Exam: ATRAUMATIC, NORMAL INSPECTION, NORMOCEPHALIC - Eye Exam Eye Exam: EOMI, Normal appearance, PERRL Pupil Exam: NORMAL ACCOMODATION, PERRL - ENT Exam ENT Exam: Mucous Membranes Moist, Normal Exam - Neck Exam Neck Exam: Full ROM, Normal Inspection. absent: Lymphadenopathy - Respiratory Exam Respiratory Exam: Decreased Breath Sounds - Cardiovascular Exam Cardiovascular Exam: REGULAR RHYTHM, +S1, +S2 - GI/Abdominal Exam GI & Abdominal Exam: Soft, Diminished Bowel Sounds - Rectal Exam Rectal Exam: Deferred Assessment and Plan (1) ACS (acute coronary syndrome) Status: Acute (2) ARF (acute renal failure) Status: Acute (3) Abdominal pain Status: Acute (4) Abdominal pain Status: Acute (5) Abdominal pain Status: Acute (6) Anticoagulated on Coumadin Status: Acute (7) Anxiety Status: Acute (8) Anxiety Status: Acute (9) Ascites Status: Acute (10) Atrial dysrhythmia Status: Acute (11) Back pain Status: Acute (12) Benzodiazepine abuse Status: Acute (13) Benzodiazepine dependence Status: Acute (14) CHF (congestive heart failure) Status: Acute (15) CHF (congestive heart failure) Status: Acute (16) CHF (congestive heart failure) Status: Acute (17) CHF (congestive heart failure) Status: Acute (18) CHF exacerbation Status: Acute (19) Chronic back pain Status: Acute (20) Chronic left ventricular systolic dysfunction Status: Acute (21) Chronic obstructive pulmonary disease (COPD) Status: Acute (22) Cocaine abuse Status: Acute (23) Congestive heart failure (CHF) Status: Acute (24) D-dimer, elevated Status: Acute (25) Dyspnea Status: Acute (26) Dyspnea Status: Acute (27) Edema Status: Acute (28) Elevated brain natriuretic peptide (BNP) level Status: Acute (29) Elevated troponin Status: Acute (30) Gram positive sepsis Status: Acute (31) Hypokalemia Status: Acute (32) Hypotension Status: Acute (33) Lower extremity edema Status: Acute (34) Lumbar radiculopathy Status: Acute (35) MRSA (methicillin resistant Staphylococcus aureus) infection Status: Acute (36) MRSA (methicillin resistant Staphylococcus aureus) septicemia Status: Acute (37) MRSA bacteremia Status: Acute (38) Medication refill Status: Acute (39) Narcotic dependence Status: Acute (40) Near syncope Status: Acute (41) Non-STEMI (non-ST elevated myocardial infarction) Status: Acute (42) Non-compliance Status: Acute (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 Status: Acute (44) PVD (peripheral vascular disease) Status: Acute (45) Palpitations Status: Acute (46) Pneumonia Status: Acute (47) Prophylactic measure Status: Acute (48) Pulmonary edema Status: Acute (49) Rapid atrial fibrillation Status: Acute (50) Respiratory distress Status: Acute (51) Sciatica Status: Acute (52) Shortness of breath Status: Acute (53) Skin sore Status: Acute (54) Spleen hematoma Status: Acute (55) Splenic hemorrhage Status: Acute (56) Syncope Status: Acute (57) Venous stasis dermatitis of both lower extremities Status: Acute (58) Afib Status: Chronic (59) Anxiety Status: Chronic (60) Anxiety Status: Chronic (61) Asthma Status: Chronic (62) Atrial fibrillation with rapid ventricular response Status: Chronic (63) CAD (coronary artery disease) Status: Chronic (64) Cocaine use Status: Chronic (65) Congestive heart failure Status: Chronic (66) Degenerative disc disease, lumbar Status: Chronic (67) ETOH abuse Status: Chronic (68) H/O heart artery stent Status: Chronic (69) HTN (hypertension), benign Status: Chronic (70) HTN, goal below 130/80 Status: Chronic (71) Hypertension Status: Chronic (72) Low back pain Status: Chronic (73) Sleep apnea Status: Chronic (74) Cellulitis Status: Suspected (75) Xanax use disorder, mild Status: Suspected (76) Chest pain Status: Resolved - Assessment and Plan (Free Text) Plan: S/P drainage of splenic hematoma Follow-up GI Follow-up vascular surgeon Ventolin Coreg Lanoxin Cardizem Lasix Neurontin Apresoline Antibiotics Singulair Pedicles
[2017-03-07] MEDS: Digoxin 125 mcg (0.125 mg) Tab PO SCH (18:55)
[2017-03-08] MEDS: HYDROmorphone 1 mg/ml ISec IVP PRN ×3 (03:18→20:00)
[2017-03-08] MEDS: Oxycodone/Acetaminophen 5/325 mg Tab PO PRN ×3 (05:21→21:33)
[2017-03-08 07:33] LABS: CHLORIDE 90 mmol/L (98-107); POTASSIUM 4.7 mmol/L (3.6-5.2); SODIUM 132 mmol/L (132-148)
[2017-03-08 07:35] LABS: BILIRUBIN,TOTAL 0.4 mg/dL (0.2-1.3); GFR AFRICAN-AMERICAN > 60
[2017-03-08 07:36] LABS: ALB/GLOB RATIO 0.8 (1.0-2.1); ALKALINE PHOSPHATASE 82 U/L (38-126); ALT/SGPT 24 U/L (21-72); AST/SGOT 23 U/L (17-59); BLOOD UREA NITROGEN 13 mg/dL (9-20); CALCIUM 8.2 mg/dl (8.6-10.4); CARBON DIOXIDE 29 mmol/L (22-30); GLUCOSE,RANDOM 135 mg/dL (75-110); PHOSPHOROUS 3.8 mg/dL (2.5-4.5); TOTAL PROTEIN 7.8 g/dL (6.3-8.3)
[2017-03-08 08:06] LABS: CORTISOL AM 5.6 ug/dL (4.46-22.7)
[2017-03-08] MEDS: Albuterol HFA 90 mcg/actuation (8 g) IH SCH (08:48)
[2017-03-08] MEDS: Potassium Chloride 20 mEq ER Tab PO SCH (10:34)
--- NOTE | 2017-03-08 11:24 | CP.PCM.PN ---
Subjective - Date & Time of Evaluation Date of Evaluation: 03/08/17 Time of Evaluation: 11:15 - Subjective Subjective: patient feels better. denies chest pain or dyspnea. abdominal pain is improved. Objective - Vital Signs/Intake and Output Vital Signs (last 24 hours): Temp Pulse Resp BP Pulse Ox 98.2 F 82 20 132/90 95 03/08/17 09:05 03/08/17 09:05 03/08/17 09:05 03/08/17 10:34 03/08/17 09:05 Intake and Output: 03/08/17 03/08/17 06:59 18:59 Intake Total 800 Output Total 300 Balance 500 - Medications Medications: Current Medications Acetaminophen (Tylenol 325mg Tab) 650 mg PO Q6 PRN PRN Reason: Fever >100.4 F Albuterol (Ventolin Hfa 90 Mcg/Actuation (8 G)) 2 puff IH RBID [facility] Last Admin: 03/08/17 08:48 Dose: Not Given Alprazolam (Xanax) 1 mg PO QID [facility] Last Admin: 03/08/17 10:33 Dose: 1 mg Carvedilol (Coreg) 12.5 mg PO BID [facility] Last Admin: 03/07/17 18:58 Dose: 12.5 mg Digoxin (Lanoxin) 0.125 mg PO DAILY@1800 [facility] Last Admin: 03/07/17 18:55 Dose: 0.125 mg Diltiazem HCl (Cardizem) 60 mg PO Q6 [facility] Last Admin: 03/08/17 05:22 Dose: 60 mg Enalapril Maleate (Vasotec) 20 mg PO DAILY [facility] Last Admin: 03/08/17 10:34 Dose: 20 mg Fluoxetine HCl (Prozac) 40 mg PO DAILY [facility] Last Admin: 03/07/17 09:23 Dose: 40 mg Furosemide (Lasix) 40 mg PO DAILY [facility] Last Admin: 03/08/17 10:32 Dose: 40 mg Gabapentin (Neurontin) 600 mg PO HS [facility] Last Admin: 03/07/17 22:18 Dose: 600 mg Gabapentin (Neurontin) 300 mg PO QAM [facility] Last Admin: 03/08/17 10:34 Dose: 300 mg Hydralazine HCl (Apresoline) 25 mg PO DAILY [facility] Last Admin: 03/08/17 10:34 Dose: 25 mg Hydrochlorothiazide (Hydrodiuril) 50 mg PO DAILY [facility] Last Admin: 03/08/17 10:33 Dose: 50 mg Hydromorphone HCl (Dilaudid) 1 mg IVP Q8H PRN PRN Reason: severe pain Last Admin: 03/08/17 10:35 Dose: 1 mg Imipenem/Cilastatin Sodium 500 (mg/ Sodium Chloride) 100 mls @ 100 mls/hr IVPB Q6H [facility] Last Admin: 03/08/17 06:37 Dose: 100 mls/hr Vancomycin HCl/Dextrose (Vancocin) 100 mls @ 100 mls/hr IVPB Q6H [facility] Stop: 03/11/17 02:01 Last Admin: 03/07/17 08:02 Dose: 100 mls/hr Montelukast Sodium (Singulair) 10 mg PO [facility] Last Admin: 03/07/17 22:19 Dose: 10 mg Oxycodone/Acetaminophen (Percocet 5/325 Mg Tab) 2 tab PO QID PRN PRN Reason: Pain, severe (8-10) Last Admin: 03/08/17 05:21 Dose: 2 tab Potassium Chloride (K-Dur 20 Meq Er Tab) 20 meq PO DAILY [facility] Last Admin: 03/08/17 10:34 Dose: 20 meq Rosuvastatin Calcium (Crestor) 5 mg PO [facility] Last Admin: 03/07/17 22:19 Dose: 5 mg - Labs Labs: 03/07/17 06:34 03/08/17 07:15 PT 16.5 SECONDS (9.7-12.2) H 03/05/17 09:58 INR 1.4 03/05/17 09:58 APTT 35 SECONDS (21-34) H 03/05/17 09:58 - Constitutional Appears: Non-toxic - Head Exam Head Exam: NORMAL INSPECTION - Eye Exam Eye Exam: Normal appearance - ENT Exam ENT Exam: Mucous Membranes Moist - Neck Exam Neck Exam: Full ROM - Respiratory Exam Respiratory Exam: Decreased Breath Sounds - Cardiovascular Exam Cardiovascular Exam: Irregular Rhythm - GI/Abdominal Exam GI & Abdominal Exam: Normal Bowel Sounds - Rectal Exam Rectal Exam: Deferred - Extremities Exam Extremities Exam: Pedal Edema - Back Exam Back Exam: NORMAL INSPECTION - Neurological Exam Neurological Exam: Alert - Psychiatric Exam Psychiatric exam: Normal Affect - Skin Skin Exam: Normal Color Assessment and Plan (1) Spleen hematoma Assessment & Plan: s.p drainage. I reviewed microbiology. the fluid is growing gram + cocci. will need follow up but may be a source of infection. Status: Acute (2) Atrial fibrillation with rapid ventricular response Assessment & Plan: rtes improving. holding anticoagulation Status: Chronic (3) Hypertension Assessment & Plan: will monitor blood pressure Status: Chronic (4) CAD (coronary artery disease) Assessment & Plan: no current angina Status: Chronic (5) Chronic left ventricular systolic dysfunction Assessment & Plan: refuses AICD Status: Acute
[2017-03-08 12:32] LABS: BASO # 0.1 K/uL (0.0-0.2); BASO % 0.7 % (0.0-2.0); EOS # 0.1 K/uL (0.0-0.7); EOS % 0.7 % (0.0-4.0); HEMATOCRIT 36.8 % (35.0-51.0); LYMPH # 2.3 K/uL (1.0-4.3); LYMPH % 12.3 % (20.0-40.0); MEAN CELL VOLUME 83.5 fL (80.0-94.0); MEAN CORPUSCULAR HEMOGLOBIN 26.3 pg (27.0-31.0); MEAN CORPUSCULAR HGB CONC 31.4 g/dL (33.0-37.0); MEAN PLATELET VOLUME 8.2 fL (7.2-11.7); MONO # 2.1 K/uL (0.0-0.8); MONO % 11.1 % (0.0-10.0); RED CELL DISTRIBUTION WIDTH 15.9 % (11.5-14.5); WHITE BLOOD COUNT 18.9 K/uL (4.8-10.8)
[2017-03-08] MEDS: Vancomycin 1 gm/NS 200 ml 200 ML IVPB SCH (15:17)
--- NOTE | 2017-03-08 15:27 | PN ---
DATE: 03/08/2017 LOCATION: ICU, room 14-A. This is a 46-year-old male with rapid atrial fibrillation and supervening congestive heart failure wi th precordial chest pain now being followed closely for hemodynamic monitoring in the ICU as noted. Moreover, he was also referred for endocrine evaluation because of a transient bout of hypocalcemia y esterday as noted. He had no overt neuromuscular manifestations of hypocalcemia as noted thereof. T he initial calcium level done was actually 4.0 with a phosphorous of 2.1 and a corrected calcium of 6 .5 because of the very low albumin level of 1.5. However, the repeat calcium levels were normal, so it may have been a technical lab error or artifact causing the transient hypocalcemia as noted thereo f. The previous chemistries actually done showed improved calcium levels as noted with a BUN of 13, sodium 138, potassium 4.0, chloride 95, CO2 of 27, glucose 127, and creatinine 0.7 with a calcium of 8.3, and albumin level of 3.4 mg/dL. So at this time, will hold off further calcium supplementation and observe and obtain serial chemistries and supplement accordingly as needed. Will also obtain a 2 5-hydroxyvitamin D to supplement his levels as indicated. Will follow and advise accordingly. Yaquelin Cantu MD cc: [id number] TT: 03/08/2017 15:27:05 Confirmation # [id number] Dictation # [id number]
--- NOTE | 2017-03-08 15:29 | CP.PCM.PN ---
Subjective - Date & Time of Evaluation Date of Evaluation: 03/08/17 Time of Evaluation: 07:00 - Subjective Subjective: clinically same Objective - Vital Signs/Intake and Output Vital Signs (last 24 hours): Temp Pulse Resp BP Pulse Ox 98.2 F 82 20 132/90 95 03/08/17 09:05 03/08/17 12:06 03/08/17 09:05 03/08/17 10:34 03/08/17 09:05 Intake and Output: 03/08/17 03/08/17 06:59 18:59 Intake Total 800 Output Total 300 Balance 500 - Medications Medications: Current Medications Acetaminophen (Tylenol 325mg Tab) 650 mg PO Q6 PRN PRN Reason: Fever >100.4 F Albuterol (Ventolin Hfa 90 Mcg/Actuation (8 G)) 2 puff IH RBID [facility] Last Admin: 03/08/17 08:48 Dose: Not Given Alprazolam (Xanax) 1 mg PO QID [facility] Last Admin: 03/08/17 13:29 Dose: 1 mg Carvedilol (Coreg) 12.5 mg PO BID [facility] Last Admin: 03/08/17 10:00 Dose: 12.5 mg Digoxin (Lanoxin) 0.125 mg PO DAILY@1800 [facility] Last Admin: 03/07/17 18:55 Dose: 0.125 mg Diltiazem HCl (Cardizem) 60 mg PO Q6 [facility] Last Admin: 03/08/17 13:29 Dose: 60 mg Enalapril Maleate (Vasotec) 20 mg PO DAILY [facility] Last Admin: 03/08/17 10:34 Dose: 20 mg Fluoxetine HCl (Prozac) 40 mg PO DAILY [facility] Last Admin: 03/08/17 13:29 Dose: 40 mg Furosemide (Lasix) 40 mg PO DAILY [facility] Last Admin: 03/08/17 10:32 Dose: 40 mg Gabapentin (Neurontin) 600 mg PO HS [facility] Last Admin: 03/07/17 22:18 Dose: 600 mg Gabapentin (Neurontin) 300 mg PO QAM [facility] Last Admin: 03/08/17 10:34 Dose: 300 mg Hydralazine HCl (Apresoline) 25 mg PO DAILY [facility] Last Admin: 03/08/17 10:34 Dose: 25 mg Hydrochlorothiazide (Hydrodiuril) 50 mg PO DAILY [facility] Last Admin: 03/08/17 10:33 Dose: 50 mg Hydromorphone HCl (Dilaudid) 1 mg IVP Q8H PRN PRN Reason: severe pain Last Admin: 03/08/17 10:35 Dose: 1 mg Imipenem/Cilastatin Sodium 500 (mg/ Sodium Chloride) 100 mls @ 100 mls/hr IVPB Q6H [facility] Last Admin: 03/08/17 13:28 Dose: 100 mls/hr Vancomycin HCl/Dextrose (Vancocin) 100 mls @ 100 mls/hr IVPB Q6H [facility] Stop: 03/11/17 02:01 Last Admin: 03/07/17 08:02 Dose: 100 mls/hr Vancomycin/Sodium Chloride (Vancocin) 200 mls @ 133.333 mls/hr IVPB Q12H [facility] Last Admin: 03/08/17 15:17 Dose: 133.333 mls/hr Montelukast Sodium (Singulair) 10 mg PO HS [facility] Last Admin: 03/07/17 22:19 Dose: 10 mg Oxycodone/Acetaminophen (Percocet 5/325 Mg Tab) 2 tab PO QID PRN PRN Reason: Pain, severe (8-10) Last Admin: 03/08/17 05:21 Dose: 2 tab Potassium Chloride (K-Dur 20 Meq Er Tab) 20 meq PO DAILY [facility] Last Admin: 03/08/17 10:34 Dose: 20 meq Rosuvastatin Calcium (Crestor) 5 mg PO HS [facility] Last Admin: 03/07/17 22:19 Dose: 5 mg - Labs Labs: 03/08/17 12:28 03/08/17 07:15 PT 16.5 SECONDS (9.7-12.2) H 03/05/17 09:58 INR 1.4 03/05/17 09:58 APTT 35 SECONDS (21-34) H 03/05/17 09:58
--- NOTE | 2017-03-08 15:57 | CP.PCM.PN ---
Subjective - Date & Time of Evaluation Date of Evaluation: 03/08/17 Time of Evaluation: 08:00 - Subjective Subjective: GROWING MRSA BLOOD RECURRENT BACTEREMIA- SUSPECT ENDOCARDITIS AND OR SPLENIC ABSCESS NEEDS PILY MAY NEED SPLENECTOMY IF SPLEEN IS THE SOURCE- INFECTED HEMATOMA ? Objective - Vital Signs/Intake and Output Vital Signs (last 24 hours): Temp Pulse Resp BP Pulse Ox 98.2 F 82 20 132/90 95 03/08/17 09:05 03/08/17 12:06 03/08/17 09:05 03/08/17 10:34 03/08/17 09:05 Intake and Output: 03/08/17 03/08/17 06:59 18:59 Intake Total 800 Output Total 300 Balance 500 - Medications Medications: Current Medications Acetaminophen (Tylenol 325mg Tab) 650 mg PO Q6 PRN PRN Reason: Fever >100.4 F Albuterol (Ventolin Hfa 90 Mcg/Actuation (8 G)) 2 puff IH RBID [facility] Last Admin: 03/08/17 08:48 Dose: Not Given Alprazolam (Xanax) 1 mg PO QID [facility] Last Admin: 03/08/17 13:29 Dose: 1 mg Carvedilol (Coreg) 12.5 mg PO BID [facility] Last Admin: 03/08/17 10:00 Dose: 12.5 mg Digoxin (Lanoxin) 0.125 mg PO DAILY@1800 [facility] Last Admin: 03/07/17 18:55 Dose: 0.125 mg Diltiazem HCl (Cardizem) 60 mg PO Q6 [facility] Last Admin: 03/08/17 13:29 Dose: 60 mg Enalapril Maleate (Vasotec) 20 mg PO DAILY [facility] Last Admin: 03/08/17 10:34 Dose: 20 mg Fluoxetine HCl (Prozac) 40 mg PO DAILY [facility] Last Admin: 03/08/17 13:29 Dose: 40 mg Furosemide (Lasix) 40 mg PO DAILY [facility] Last Admin: 03/08/17 10:32 Dose: 40 mg Gabapentin (Neurontin) 600 mg PO HS [facility] Last Admin: 03/07/17 22:18 Dose: 600 mg Gabapentin (Neurontin) 300 mg PO QAM [facility] Last Admin: 03/08/17 10:34 Dose: 300 mg Hydralazine HCl (Apresoline) 25 mg PO DAILY [facility] Last Admin: 03/08/17 10:34 Dose: 25 mg Hydrochlorothiazide (Hydrodiuril) 50 mg PO DAILY [facility] Last Admin: 03/08/17 10:33 Dose: 50 mg Hydromorphone HCl (Dilaudid) 1 mg IVP Q8H PRN PRN Reason: severe pain Last Admin: 03/08/17 10:35 Dose: 1 mg Imipenem/Cilastatin Sodium 500 (mg/ Sodium Chloride) 100 mls @ 100 mls/hr IVPB Q6H [facility] Last Admin: 03/08/17 13:28 Dose: 100 mls/hr Vancomycin HCl/Dextrose (Vancocin) 100 mls @ 100 mls/hr IVPB Q6H [facility] Stop: 03/11/17 02:01 Last Admin: 03/07/17 08:02 Dose: 100 mls/hr Vancomycin/Sodium Chloride (Vancocin) 200 mls @ 133.333 mls/hr IVPB Q12H [facility] Last Admin: 03/08/17 15:17 Dose: 133.333 mls/hr Montelukast Sodium (Singulair) 10 mg PO [facility] Last Admin: 03/07/17 22:19 Dose: 10 mg Oxycodone/Acetaminophen (Percocet 5/325 Mg Tab) 2 tab PO QID PRN PRN Reason: Pain, severe (8-10) Last Admin: 03/08/17 05:21 Dose: 2 tab Potassium Chloride (K-Dur 20 Meq Er Tab) 20 meq PO DAILY [facility] Last Admin: 03/08/17 10:34 Dose: 20 meq Rosuvastatin Calcium (Crestor) 5 mg PO [facility] Last Admin: 03/07/17 22:19 Dose: 5 mg - Labs Labs: 03/08/17 12:28 03/08/17 07:15 PT 16.5 SECONDS (9.7-12.2) H 03/05/17 09:58 INR 1.4 03/05/17 09:58 APTT 35 SECONDS (21-34) H 03/05/17 09:58 - Constitutional Appears: Non-toxic, Chronically Ill - Head Exam Head Exam: NORMOCEPHALIC - Eye Exam Eye Exam: absent: Scleral icterus - ENT Exam ENT Exam: Mucous Membranes Dry - Neck Exam Neck Exam: absent: Lymphadenopathy - Respiratory Exam Respiratory Exam: Decreased Breath Sounds, Rhonchi - Cardiovascular Exam Cardiovascular Exam: REGULAR RHYTHM, +S1, +S2 - GI/Abdominal Exam GI & Abdominal Exam: Distended, Soft, Tenderness, Organomegaly - Rectal Exam Rectal Exam: Deferred - Exam Exam: NORMAL INSPECTION - Extremities Exam Extremities Exam: absent: Calf Tenderness, Pedal Edema - Back Exam Back Exam: absent: CVA tenderness (L), CVA tenderness (R) - Neurological Exam Neurological Exam: Alert, Awake, Oriented x3 Neuro motor strength exam: Left Upper Extremity: 4, Right Upper Extremity: 4, Left Lower Extremity: 4, Right Lower Extremity: 4 - Psychiatric Exam Psychiatric exam: Depressed - Skin Skin Exam: Dry Assessment and Plan (1) Chronic left ventricular systolic dysfunction Status: Acute (2) Atrial fibrillation with rapid ventricular response Status: Chronic (3) Degenerative disc disease, lumbar Status: Chronic (4) Hypertension Status: Chronic (5) Sleep apnea Status: Chronic (6) ACS (acute coronary syndrome) Status: Acute (7) Abdominal pain Status: Acute (8) Anticoagulated on Coumadin Status: Acute - Assessment and Plan (Free Text) Assessment: GROWING MRSA BLOOD RECURRENT BACTEREMIA- SUSPECT ENDOCARDITIS AND OR SPLENIC ABSCESS NEEDS PILY MAY NEED SPLENECTOMY IF SPLEEN IS THE SOURCE- INFECTED HEMATOMA ?
[2017-03-08] MEDS: Digoxin 125 mcg (0.125 mg) Tab PO SCH (18:30)
--- NOTE | 2017-03-08 22:08 | CP.PCM.PN ---
Subjective - Date & Time of Evaluation Date of Evaluation: 03/08/17 Time of Evaluation: 08:00 - Subjective Subjective: SURGERY PROGRESS NOTE FOR DR. GAYTAN Patient seen and examined at bedside. He states that he is having pain in his LUQ going to his left flank. He is ambulating. States that he does not have much appetite. He has some nausea but no vomiting. He had some diarrhea last night. Objective - Vital Signs/Intake and Output Vital Signs (last 24 hours): Temp Pulse Resp BP Pulse Ox 97.8 F 61 20 179/99 H 97 03/08/17 15:00 03/08/17 15:00 03/08/17 15:00 03/08/17 18:31 03/08/17 15:00 - Medications Medications: Current Medications Acetaminophen (Tylenol 325mg Tab) 650 mg PO Q6 PRN PRN Reason: Fever >100.4 F Albuterol (Ventolin Hfa 90 Mcg/Actuation (8 G)) 2 puff IH RBID [facility] Last Admin: 03/08/17 08:48 Dose: Not Given Alprazolam (Xanax) 1 mg PO QID [facility] Last Admin: 03/08/17 18:30 Dose: 1 mg Carvedilol (Coreg) 12.5 mg PO BID [facility] Last Admin: 03/08/17 18:31 Dose: 12.5 mg Digoxin (Lanoxin) 0.125 mg PO DAILY@1800 [facility] Last Admin: 03/08/17 18:30 Dose: 0.125 mg Diltiazem HCl (Cardizem) 60 mg PO Q6 [facility] Last Admin: 03/08/17 18:29 Dose: 60 mg Enalapril Maleate (Vasotec) 20 mg PO DAILY [facility] Last Admin: 03/08/17 10:34 Dose: 20 mg Fluoxetine HCl (Prozac) 40 mg PO DAILY [facility] Last Admin: 03/08/17 13:29 Dose: 40 mg Furosemide (Lasix) 40 mg PO DAILY [facility] Last Admin: 03/08/17 10:32 Dose: 40 mg Gabapentin (Neurontin) 600 mg PO HS [facility] Last Admin: 03/08/17 21:33 Dose: 600 mg Gabapentin (Neurontin) 300 mg PO QAM [facility] Last Admin: 03/08/17 10:34 Dose: 300 mg Hydralazine HCl (Apresoline) 25 mg PO DAILY [facility] Last Admin: 03/08/17 10:34 Dose: 25 mg Hydrochlorothiazide (Hydrodiuril) 50 mg PO DAILY [facility] Last Admin: 03/08/17 10:33 Dose: 50 mg Hydromorphone HCl (Dilaudid) 1 mg IVP Q8H PRN PRN Reason: severe pain Last Admin: 03/08/17 20:00 Dose: 1 mg Imipenem/Cilastatin Sodium 500 (mg/ Sodium Chloride) 100 mls @ 100 mls/hr IVPB Q6H [facility] Last Admin: 03/08/17 20:01 Dose: 100 mls/hr Vancomycin HCl/Dextrose (Vancocin) 100 mls @ 100 mls/hr IVPB Q6H [facility] Stop: 03/11/17 02:01 Last Admin: 03/07/17 08:02 Dose: 100 mls/hr Vancomycin/Sodium Chloride (Vancocin) 200 mls @ 133.333 mls/hr IVPB Q12H [facility] Last Admin: 03/08/17 15:17 Dose: 133.333 mls/hr Montelukast Sodium (Singulair) 10 mg PO [facility] Last Admin: 03/08/17 21:33 Dose: 10 mg Oxycodone/Acetaminophen (Percocet 5/325 Mg Tab) 2 tab PO QID PRN PRN Reason: Pain, severe (8-10) Last Admin: 03/08/17 21:33 Dose: 2 tab Potassium Chloride (K-Dur 20 Meq Er Tab) 20 meq PO DAILY [facility] Last Admin: 03/08/17 10:34 Dose: 20 meq Rosuvastatin Calcium (Crestor) 5 mg PO [facility] Last Admin: 03/08/17 21:33 Dose: 5 mg - Labs Labs: 03/08/17 12:28 03/08/17 07:15 PT 16.5 SECONDS (9.7-12.2) H 03/05/17 09:58 INR 1.4 03/05/17 09:58 APTT 35 SECONDS (21-34) H 03/05/17 09:58 - Constitutional Appears: Non-toxic, No Acute Distress - Respiratory Exam Respiratory Exam: NORMAL BREATHING PATTERN. absent: Respiratory Distress - Cardiovascular Exam Cardiovascular Exam: +S1, +S2 - GI/Abdominal Exam GI & Abdominal Exam: Distended, Firm (LUQ), Soft, Tenderness (LUQ). absent: Guarding, Rebound - Neurological Exam Neurological Exam: Alert, Awake - Psychiatric Exam Psychiatric exam: Normal Affect, Normal Mood Assessment and Plan - Assessment and Plan (Free Text) Assessment: 46yo M with large subcapsular splenic hematoma s/p IR drainage 2 days ago - Afebrile, VSS - Hemoglobin 11.6 today - Cx from IR drainage = staph aureus, ID Dr. Sorenson following - Dr. Gaytan with discuss plan with Dr. Shankar tomorrow - May need embolization if bleeding continues - Patient is poor surgical candidate - Will repeat CT tomorrow - Discussed plan with Dr. Parrish Summers PGY-2
[2017-03-09] MEDS: Vancomycin 1 gm/NS 200 ml 200 ML IVPB SCH ×2 (02:00→16:03)
[2017-03-09] MEDS: HYDROmorphone 1 mg/ml ISec IVP PRN (04:45)
[2017-03-09] MEDS: Oxycodone/Acetaminophen 5/325 mg Tab PO PRN ×2 (09:52→19:38)
--- NOTE | 2017-03-09 11:02 | CP.PCM.PN ---
Subjective - Date & Time of Evaluation Date of Evaluation: 03/09/17 Time of Evaluation: 10:56 - Subjective Subjective: fu ct scan pending residential plan discussed with patient Objective - Vital Signs/Intake and Output Vital Signs (last 24 hours): Temp Pulse Resp BP Pulse Ox 99.1 F 93 H 20 122/70 92 L 03/09/17 07:00 03/09/17 07:00 03/09/17 07:00 03/09/17 07:00 03/09/17 07:00 - Medications Medications: Current Medications Acetaminophen (Tylenol 325mg Tab) 650 mg PO Q6 PRN PRN Reason: Fever >100.4 F Albuterol (Ventolin Hfa 90 Mcg/Actuation (8 G)) 2 puff IH RBID [facility] Last Admin: 03/08/17 08:48 Dose: Not Given Alprazolam (Xanax) 1 mg PO QID [facility] Last Admin: 03/09/17 09:52 Dose: 1 mg Carvedilol (Coreg) 12.5 mg PO BID [facility] Last Admin: 03/08/17 18:31 Dose: 12.5 mg Digoxin (Lanoxin) 0.125 mg PO DAILY@1800 [facility] Last Admin: 03/08/17 18:30 Dose: 0.125 mg Diltiazem HCl (Cardizem) 60 mg PO Q6 [facility] Last Admin: 03/09/17 05:48 Dose: 60 mg Enalapril Maleate (Vasotec) 20 mg PO DAILY [facility] Last Admin: 03/08/17 10:34 Dose: 20 mg Fluoxetine HCl (Prozac) 40 mg PO DAILY [facility] Last Admin: 03/08/17 13:29 Dose: 40 mg Furosemide (Lasix) 40 mg PO DAILY [facility] Last Admin: 03/08/17 10:32 Dose: 40 mg Gabapentin (Neurontin) 600 mg PO HS [facility] Last Admin: 03/08/17 21:33 Dose: 600 mg Gabapentin (Neurontin) 300 mg PO QAM [facility] Last Admin: 03/08/17 10:34 Dose: 300 mg Hydralazine HCl (Apresoline) 25 mg PO DAILY [facility] Last Admin: 03/09/17 09:52 Dose: 25 mg Hydrochlorothiazide (Hydrodiuril) 50 mg PO DAILY [facility] Last Admin: 03/08/17 10:33 Dose: 50 mg Hydromorphone HCl (Dilaudid) 1 mg IVP Q8H PRN PRN Reason: severe pain Last Admin: 03/09/17 04:45 Dose: 1 mg Imipenem/Cilastatin Sodium 500 (mg/ Sodium Chloride) 100 mls @ 100 mls/hr IVPB Q6H [facility] Last Admin: 03/09/17 06:30 Dose: 100 mls/hr Vancomycin HCl/Dextrose (Vancocin) 100 mls @ 100 mls/hr IVPB Q6H [facility] Stop: 03/11/17 02:01 Last Admin: 03/07/17 08:02 Dose: 100 mls/hr Vancomycin/Sodium Chloride (Vancocin) 200 mls @ 133.333 mls/hr IVPB Q12H [facility] Last Admin: 03/09/17 02:00 Dose: 133.333 mls/hr Montelukast Sodium (Singulair) 10 mg PO HS [facility] Last Admin: 03/08/17 21:33 Dose: 10 mg Oxycodone/Acetaminophen (Percocet 5/325 Mg Tab) 2 tab PO QID PRN PRN Reason: Pain, severe (8-10) Last Admin: 03/09/17 09:52 Dose: 2 tab Potassium Chloride (K-Dur 20 Meq Er Tab) 20 meq PO DAILY [facility] Last Admin: 03/08/17 10:34 Dose: 20 meq Rosuvastatin Calcium (Crestor) 5 mg PO HS [facility] Last Admin: 03/08/17 21:33 Dose: 5 mg - Labs Labs: 03/08/17 12:28 03/08/17 07:15 PT 16.5 SECONDS (9.7-12.2) H 03/05/17 09:58 INR 1.4 03/05/17 09:58 APTT 35 SECONDS (21-34) H 03/05/17 09:58
--- NOTE | 2017-03-09 12:20 | CP.PCM.PN ---
Subjective - Date & Time of Evaluation Date of Evaluation: 03/09/17 Time of Evaluation: 06:00 - Subjective Subjective: GROWING MRSA BLOOD RECURRENT BACTEREMIA- SUSPECT ENDOCARDITIS AND OR SPLENIC ABSCESS NEEDS PILY MAY NEED SPLENECTOMY IF SPLEEN IS THE SOURCE- INFECTED HEMATOMA ? Objective - Vital Signs/Intake and Output Vital Signs (last 24 hours): Temp Pulse Resp BP Pulse Ox 99.1 F 93 H 20 122/70 92 L 03/09/17 07:00 03/09/17 07:00 03/09/17 07:00 03/09/17 07:00 03/09/17 07:00 - Medications Medications: Current Medications Acetaminophen (Tylenol 325mg Tab) 650 mg PO Q6 PRN PRN Reason: Fever >100.4 F Albuterol (Ventolin Hfa 90 Mcg/Actuation (8 G)) 2 puff IH RBID [facility] Last Admin: 03/08/17 08:48 Dose: Not Given Alprazolam (Xanax) 1 mg PO QID [facility] Last Admin: 03/09/17 09:52 Dose: 1 mg Carvedilol (Coreg) 12.5 mg PO BID [facility] Last Admin: 03/08/17 18:31 Dose: 12.5 mg Digoxin (Lanoxin) 0.125 mg PO DAILY@1800 [facility] Last Admin: 03/08/17 18:30 Dose: 0.125 mg Diltiazem HCl (Cardizem) 60 mg PO Q6 [facility] Last Admin: 03/09/17 05:48 Dose: 60 mg Enalapril Maleate (Vasotec) 20 mg PO DAILY [facility] Last Admin: 03/08/17 10:34 Dose: 20 mg Fluoxetine HCl (Prozac) 40 mg PO DAILY [facility] Last Admin: 03/08/17 13:29 Dose: 40 mg Furosemide (Lasix) 40 mg PO DAILY [facility] Last Admin: 03/08/17 10:32 Dose: 40 mg Gabapentin (Neurontin) 600 mg PO HS [facility] Last Admin: 03/08/17 21:33 Dose: 600 mg Gabapentin (Neurontin) 300 mg PO QAM [facility] Last Admin: 03/08/17 10:34 Dose: 300 mg Hydralazine HCl (Apresoline) 25 mg PO DAILY [facility] Last Admin: 03/09/17 09:52 Dose: 25 mg Hydrochlorothiazide (Hydrodiuril) 50 mg PO DAILY [facility] Last Admin: 03/08/17 10:33 Dose: 50 mg Hydromorphone HCl (Dilaudid) 1 mg IVP Q8H PRN PRN Reason: severe pain Last Admin: 03/09/17 04:45 Dose: 1 mg Imipenem/Cilastatin Sodium 500 (mg/ Sodium Chloride) 100 mls @ 100 mls/hr IVPB Q6H [facility] Last Admin: 03/09/17 06:30 Dose: 100 mls/hr Vancomycin HCl/Dextrose (Vancocin) 100 mls @ 100 mls/hr IVPB Q6H [facility] Stop: 03/11/17 02:01 Last Admin: 03/07/17 08:02 Dose: 100 mls/hr Vancomycin/Sodium Chloride (Vancocin) 200 mls @ 133.333 mls/hr IVPB Q12H [facility] Last Admin: 03/09/17 02:00 Dose: 133.333 mls/hr Montelukast Sodium (Singulair) 10 mg PO [facility] Last Admin: 03/08/17 21:33 Dose: 10 mg Oxycodone/Acetaminophen (Percocet 5/325 Mg Tab) 2 tab PO QID PRN PRN Reason: Pain, severe (8-10) Last Admin: 03/09/17 09:52 Dose: 2 tab Potassium Chloride (K-Dur 20 Meq Er Tab) 20 meq PO DAILY [facility] Last Admin: 03/08/17 10:34 Dose: 20 meq Rosuvastatin Calcium (Crestor) 5 mg PO HS [facility] Last Admin: 03/08/17 21:33 Dose: 5 mg - Labs Labs: 03/08/17 12:28 03/08/17 07:15 PT 16.5 SECONDS (9.7-12.2) H 03/05/17 09:58 INR 1.4 03/05/17 09:58 APTT 35 SECONDS (21-34) H 03/05/17 09:58 - Constitutional Appears: No Acute Distress, Chronically Ill - Head Exam Head Exam: ATRAUMATIC, NORMAL INSPECTION, NORMOCEPHALIC - Eye Exam Eye Exam: PERRL. absent: Scleral icterus - ENT Exam ENT Exam: Mucous Membranes Dry - Neck Exam Neck Exam: absent: Lymphadenopathy - Respiratory Exam Respiratory Exam: Decreased Breath Sounds - Cardiovascular Exam Cardiovascular Exam: REGULAR RHYTHM - GI/Abdominal Exam GI & Abdominal Exam: Distended, Soft. absent: Tenderness - Rectal Exam Rectal Exam: Deferred - Exam Exam: NORMAL INSPECTION - Extremities Exam Extremities Exam: absent: Pedal Edema - Back Exam Back Exam: absent: CVA tenderness (L), CVA tenderness (R) - Neurological Exam Neurological Exam: Alert, Awake, Oriented x3 - Psychiatric Exam Psychiatric exam: Depressed Assessment and Plan (1) Chronic left ventricular systolic dysfunction Status: Acute (2) Atrial fibrillation with rapid ventricular response Status: Chronic (3) Degenerative disc disease, lumbar Status: Chronic (4) Hypertension Status: Chronic (5) Sleep apnea Status: Chronic (6) ACS (acute coronary syndrome) Status: Acute (7) Abdominal pain Status: Acute (8) Anticoagulated on Coumadin Status: Acute
--- NOTE | 2017-03-09 12:34 | CARD ---
APPROVED REPORT EKG Measurement Heart [id number] <Conclusion> Atrial fibrillation with rapid ventricular response Left axis deviation Inferior-posterior infarct, age undetermined ST & T wave abnormality, consider lateral ischemia Abnormal ECG
--- NOTE | 2017-03-09 13:12 | CP.PCM.PN ---
<Víctor Patrick - Last Filed: 03/09/17 13:27> Subjective - Date & Time of Evaluation Date of Evaluation: 03/09/17 Time of Evaluation: 11:00 - Subjective Subjective: Medicine Note- Dr. Ocampo's service Patient was seen and examined at bedside. Patient reports he has diffuse soreness in his abdomen, but is otherwise doing okay. No events overnight, per nursing. Objective - Vital Signs/Intake and Output Vital Signs (last 24 hours): Temp Pulse Resp BP Pulse Ox 99.1 F 93 H 20 122/70 92 L 03/09/17 07:00 03/09/17 07:00 03/09/17 07:00 03/09/17 07:00 03/09/17 07:00 - Medications Medications: Current Medications Acetaminophen (Tylenol 325mg Tab) 650 mg PO Q6 PRN PRN Reason: Fever >100.4 F Albuterol (Ventolin Hfa 90 Mcg/Actuation (8 G)) 2 puff IH RBID [facility] Last Admin: 03/08/17 08:48 Dose: Not Given Alprazolam (Xanax) 1 mg PO QID [facility] Last Admin: 03/09/17 09:52 Dose: 1 mg Carvedilol (Coreg) 12.5 mg PO BID [facility] Last Admin: 03/08/17 18:31 Dose: 12.5 mg Digoxin (Lanoxin) 0.125 mg PO DAILY@1800 [facility] Last Admin: 03/08/17 18:30 Dose: 0.125 mg Diltiazem HCl (Cardizem) 60 mg PO Q6 [facility] Last Admin: 03/09/17 05:48 Dose: 60 mg Enalapril Maleate (Vasotec) 20 mg PO DAILY [facility] Last Admin: 03/08/17 10:34 Dose: 20 mg Fluoxetine HCl (Prozac) 40 mg PO DAILY [facility] Last Admin: 03/08/17 13:29 Dose: 40 mg Furosemide (Lasix) 40 mg PO DAILY [facility] Last Admin: 03/08/17 10:32 Dose: 40 mg Gabapentin (Neurontin) 600 mg PO HS [facility] Last Admin: 03/08/17 21:33 Dose: 600 mg Gabapentin (Neurontin) 300 mg PO QAM [facility] Last Admin: 03/08/17 10:34 Dose: 300 mg Hydralazine HCl (Apresoline) 25 mg PO DAILY [facility] Last Admin: 03/09/17 09:52 Dose: 25 mg Hydrochlorothiazide (Hydrodiuril) 50 mg PO DAILY [facility] Last Admin: 03/08/17 10:33 Dose: 50 mg Hydromorphone HCl (Dilaudid) 1 mg IVP Q8H PRN PRN Reason: severe pain Last Admin: 03/09/17 04:45 Dose: 1 mg Imipenem/Cilastatin Sodium 500 (mg/ Sodium Chloride) 100 mls @ 100 mls/hr IVPB Q6H [facility] Last Admin: 03/09/17 06:30 Dose: 100 mls/hr Vancomycin HCl/Dextrose (Vancocin) 100 mls @ 100 mls/hr IVPB Q6H [facility] Stop: 03/11/17 02:01 Last Admin: 03/07/17 08:02 Dose: 100 mls/hr Vancomycin/Sodium Chloride (Vancocin) 200 mls @ 133.333 mls/hr IVPB Q12H [facility] Last Admin: 03/09/17 02:00 Dose: 133.333 mls/hr Montelukast Sodium (Singulair) 10 mg PO [facility] Last Admin: 03/08/17 21:33 Dose: 10 mg Oxycodone/Acetaminophen (Percocet 5/325 Mg Tab) 2 tab PO QID PRN PRN Reason: Pain, severe (8-10) Last Admin: 03/09/17 09:52 Dose: 2 tab Potassium Chloride (K-Dur 20 Meq Er Tab) 20 meq PO DAILY [facility] Last Admin: 03/08/17 10:34 Dose: 20 meq Rosuvastatin Calcium (Crestor) 5 mg PO [facility] Last Admin: 03/08/17 21:33 Dose: 5 mg - Labs Labs: 03/08/17 12:28 03/08/17 07:15 PT 16.5 SECONDS (9.7-12.2) H 03/05/17 09:58 INR 1.4 03/05/17 09:58 APTT 35 SECONDS (21-34) H 03/05/17 09:58 - Constitutional Appears: Non-toxic, No Acute Distress - Head Exam Head Exam: ATRAUMATIC, NORMAL INSPECTION, NORMOCEPHALIC - Eye Exam Pupil Exam: NORMAL ACCOMODATION, PERRL - ENT Exam ENT Exam: Mucous Membranes Moist - Respiratory Exam Respiratory Exam: Clear to Ausculation Bilateral, NORMAL BREATHING PATTERN. absent: Prolonged Expiratory Phase, Rales, Rhonchi, Wheezes - Cardiovascular Exam Cardiovascular Exam: REGULAR RHYTHM, +S1, +S2 - GI/Abdominal Exam GI & Abdominal Exam: Soft, Normal Bowel Sounds. absent: Tenderness, Diminished Bowel Sounds, Hypoactive Bowel Sounds - Extremities Exam Extremities Exam: Normal Capillary Refill, Normal Inspection - Neurological Exam Neurological Exam: Alert, Awake, Oriented x3 - Psychiatric Exam Psychiatric exam: Normal Affect, Normal Mood - Skin Skin Exam: Dry, Intact, Normal Color, Warm Assessment and Plan - Assessment and Plan (Free Text) Assessment: Splenic Hematoma s/p drainage on 03/06/17 by IR- 1000ml Drainage culture positive for MRSA consult surgery- Dr. Grimes consult ID- Dr. Sorenson Continue Vanco 1gm IVPB Q12h Continue Primaxin IVPB Q6h [facility] Scheduled for PILY today Htn consult cardio- Dr. Morgan Hydralazine 25mg PO Daily HCTZ 50mg PO Daily Vasotec 20mg PO Daily CAD s/p 4 stents consult cardio- Dr. Morgan Crestor 5mg PO HS CHF consult cardio- Dr. Morgan Per Dr. Morgan, patient refusing AICD. Digoxin 0.125mg PO HS Afib consult cardio- Dr. Morgan held Coumadin secondary to splenic hematoma Continue Cardizem 60mg PO Q6h [facility] Continue Coreg 12.5mg PO BID Continue Xanax 1mg PO QID Bipolar/Depression Continue Prozac 40mg PO Daily Continue COPD consult pulm- Dr. Santos Albuertol 2 puff Q6h PRN ARLEEN consult pulm- Dr. Santos Herniated Discs Percocet 2 tab 5/325 Q6h PRN Dilaudid 1mg IVP Q8h PRN Neurontin 600mg PO HS Neurontin 300mg PO qAM Prophylactic measure Protonix 40mg PO Daily contraindication for anticoagulation- hemorrhage Medical management as per Dr. Ocampo <Roque Ocampo Jr. - Last Filed: 03/13/17 16:41> Objective - Vital Signs/Intake and Output Vital Signs (last 24 hours): Temp Pulse Resp BP Pulse Ox 97.6 F 74 20 102/54 L 97 03/13/17 08:11 03/13/17 13:01 03/13/17 08:11 03/13/17 13:01 03/13/17 08:11 Intake and Output: 03/13/17 03/13/17 06:59 18:59 Intake Total 680 500 Balance 680 500 - Medications Medications: Current Medications Acetaminophen (Tylenol 325mg Tab) 650 mg PO Q6 PRN PRN Reason: Fever >100.4 F Last Admin: 03/12/17 12:21 Dose: 650 mg Albuterol (Ventolin Hfa 90 Mcg/Actuation (8 G)) 2 puff INH Q6H PRN PRN Reason: Shortness of Breath Alprazolam (Xanax) 1 mg PO QID PRN PRN Reason: Anxiety Last Admin: 03/13/17 13:31 Dose: 1 mg Carvedilol (Coreg) 12.5 mg PO BID [facility] Last Admin: 03/13/17 10:21 Dose: 12.5 mg Digoxin (Lanoxin) 0.125 mg PO DAILY@1800 [facility] Last Admin: 03/12/17 18:04 Dose: 0.125 mg Diltiazem HCl (Cardizem) 60 mg PO Q6 [facility] Last Admin: 03/13/17 13:00 Dose: 60 mg Enalapril Maleate (Vasotec) 20 mg PO DAILY [facility] Last Admin: 03/13/17 10:22 Dose: 20 mg Fluoxetine HCl (Prozac) 40 mg PO DAILY [facility] Last Admin: 03/13/17 10:23 Dose: 40 mg Furosemide (Lasix) 40 mg PO DAILY [facility] Last Admin: 03/13/17 10:21 Dose: 40 mg Gabapentin (Neurontin) 600 mg PO HS [facility] Last Admin: 03/12/17 21:41 Dose: 600 mg Gabapentin (Neurontin) 300 mg PO QAM [facility] Last Admin: 03/13/17 10:21 Dose: 300 mg Hydralazine HCl (Apresoline) 25 mg PO DAILY [facility] Last Admin: 03/13/17 10:22 Dose: 25 mg Hydrochlorothiazide (Hydrodiuril) 50 mg PO DAILY [facility] Last Admin: 03/13/17 10:21 Dose: 50 mg Vancomycin/Sodium Chloride (Vancocin) 200 mls @ 166.6 mls/hr IVPB Q8H [facility] Last Admin: 03/13/17 12:50 Dose: Not Given Montelukast Sodium (Singulair) 10 mg PO HS [facility] Last Admin: 03/12/17 21:41 Dose: 10 mg Oxycodone/Acetaminophen (Percocet 5/325 Mg Tab) 2 tab PO Q6H PRN PRN Reason: Pain, severe (8-10) Stop: 03/15/17 18:09 Last Admin: 03/13/17 10:23 Dose: 2 tab Pantoprazole Sodium (Protonix Ec Tab) 40 mg PO DAILY [facility] Last Admin: 03/13/17 10:21 Dose: 40 mg Potassium Chloride (K-Dur 20 Meq Er Tab) 20 meq PO DAILY [facility] Last Admin: 03/13/17 10:22 Dose: Not Given Rosuvastatin Calcium (Crestor) 5 mg PO HS [facility] Last Admin: 03/12/17 21:41 Dose: 5 mg - Labs Labs: 03/13/17 11:24 03/13/17 11:24 PT 16.5 SECONDS (9.7-12.2) H 03/05/17 09:58 INR 1.4 03/05/17 09:58 APTT 35 SECONDS (21-34) H 03/05/17 09:58 Attending/Attestation - Attestation I have personally seen and examined this patient.: Yes I have fully participated in the care of the patient.: Yes I have reviewed all pertinent clinical information, including history, physical exam and plan: Yes Notes (Text): 03/13/17 16:40 Patient seen and examined. Review resident note and agree with findings.
[2017-03-09] MEDS: Albuterol HFA 90 mcg/actuation (8 g) IH SCH (13:14)
[2017-03-09] MEDS ORDERED: Albuterol HFA 90 mcg/actuation (8 g) INH PRN (13:35)
--- NOTE | 2017-03-09 14:08 | PN ---
DATE: 03/09/2017 In ICU room 14 A. This is a 46-year-old male with rapid atrial fibrillation and uncontrolled hypertension with malignan t ranges thereof and is now being followed closely also for metabolic management. His latest chemistry showed a BUN of 13, sodium 132, potassium 4.7, chloride 90, CO2 29, glucose 135 and creatinine 0.8. His repeat calcium level is 8.2 with an albumin level of 3.4 and a corrected mukesh cium of 8.8 mg/dL. His serum cortisol level is 5.6. So at this time, we will continue the same present cardiac and medical management as given. We will hold off any kind of extra calcium supplementation as his calcium level has actually normalized as no leeann. We will obtain serial chemistries and supplement accordingly as needed. We will follow and adv ise accordingly. Yaquelin Cantu MD cc: [id number] TT: 03/09/2017 14:07:52 Confirmation # [id number] Dictation # [id number] en
[2017-03-09] MEDS ORDERED: Succinylcholine Chloride 20 mg/ml Syr (5 ml) IV ONE (14:12)
[2017-03-09] MEDS ORDERED: Propofol 10 mg/ml Inj (20 ML) ONE (14:12)
[2017-03-09] MEDS ORDERED: Etomidate 20 mg/10ml Inj IV ONE (14:12)
[2017-03-09] MEDS: Potassium Chloride 20 mEq ER Tab PO SCH (16:05)
[2017-03-09] MEDS ORDERED: Iohexol 350mg/ml 100 ML ONE (16:26)
--- NOTE | 2017-03-09 18:05 | CT ---
PROCEDURE: CT Abdomen and Pelvis with contrast HISTORY: comparison, splenic hematoma s/p drainage Relevant interventional procedure(s): March 06, 2017 ultrasound-guided aspiration of splenic collection. Retrieval of 1 L of bloody fluid. Two COMPARISON: None. TECHNIQUE: Contrast dose: 100 cc Visipaque 350. Radiation dose: Total exam DLP = 1220.7 mGy-cm. This CT exam was performed using one or more of the following dose reduction techniques: Automated exposure control, adjustment of the mA and/or kV according to patient size, and/or use of iterative reconstruction technique. FINDINGS: LOWER THORAX: Modest interval improvement in atelectasis left lower lobe LIVER: Hepatic steatosis. No focal masses. No intrahepatic bile duct dilatation or perihepatic ascites. , cirrhotic configuration, hypertrophy of the caudate lobe, lobular contour. GALLBLADDER AND BILE DUCTS: Unremarkable. PANCREAS: Unremarkable. No gross lesion or ductal dilatation. SPLEEN: Despite a retrieval of 1 L of fluid, the bilobed dumbbell-shaped subcapsular splenic fluid collection is only slightly decreased in size. . On the sagittal images the more cephalad component measures 13.6 x 14.7 cm. Previously this measured 14.2 x 17 cm more caudal component on the present study measures 5.6 x 12.4 cm. Previously this measured 6.1 x 13.9 cm ADRENALS: Unremarkable. No mass. KIDNEYS AND URETERS: Unremarkable. No hydronephrosis. No solid mass. VASCULATURE: Unremarkable. No aortic aneurysm. BOWEL: Unremarkable. No obstruction. No gross mural thickening. APPENDIX: No abnormalities to suggest acute appendicitis. No right lower quadrant inflammatory processes identified. PERITONEUM: Unremarkable. No free fluid. No free air. LYMPH NODES: Unremarkable. No enlarged lymph nodes. BLADDER: Unremarkable. REPRODUCTIVE: Unremarkable. BONES: Stable multilevel degenerative change. OTHER FINDINGS: None. IMPRESSION: Modest decrease in size of left upper quadrant, subcapsular splenic hematoma. No new/ acute findings identified.
[2017-03-09] MEDS: Digoxin 125 mcg (0.125 mg) Tab PO SCH (18:38)
[2017-03-10] MEDS: Oxycodone/Acetaminophen 5/325 mg Tab PO PRN ×2 (00:46→04:29)
[2017-03-10] MEDS: Vancomycin 1 gm/NS 200 ml 200 ML IVPB SCH ×2 (02:00→14:29)
[2017-03-10 07:41] LABS: BASO # 0.1 K/uL (0.0-0.2); BASO % 0.6 % (0.0-2.0); EOS % 0.2 % (0.0-4.0); HEMATOCRIT 37.2 % (35.0-51.0); LYMPH # 1.5 K/uL (1.0-4.3); LYMPH % 7.4 % (20.0-40.0); MEAN CELL VOLUME 82.8 fL (80.0-94.0); MEAN CORPUSCULAR HEMOGLOBIN 26.4 pg (27.0-31.0); MEAN CORPUSCULAR HGB CONC 31.8 g/dL (33.0-37.0); MEAN PLATELET VOLUME 7.5 fL (7.2-11.7); MONO # 1.6 K/uL (0.0-0.8); MONO % 8.1 % (0.0-10.0); PLATELET COUNT 426 K/uL (130-400); RED CELL DISTRIBUTION WIDTH 15.6 % (11.5-14.5); WHITE BLOOD COUNT 19.8 K/uL (4.8-10.8)
[2017-03-10] MEDS: HYDROmorphone 1 mg/ml ISec IVP PRN ×2 (07:50→22:07)
[2017-03-10 07:53] LABS: CHLORIDE 88 mmol/L (98-107)
[2017-03-10 07:55] LABS: POTASSIUM 4.9 mmol/L (3.6-5.2); SODIUM 132 mmol/L (132-148)
[2017-03-10 07:57] LABS: ALB/GLOB RATIO 0.7 (1.0-2.1); ALKALINE PHOSPHATASE 76 U/L (38-126); AST/SGOT 23 U/L (17-59); BILIRUBIN,TOTAL 0.8 mg/dL (0.2-1.3); BLOOD UREA NITROGEN 11 mg/dL (9-20); CARBON DIOXIDE 33 mmol/L (22-30); GFR AFRICAN-AMERICAN > 60; TOTAL PROTEIN 8.4 g/dL (6.3-8.3)
[2017-03-10 07:58] LABS: ALT/SGPT 11 U/L (21-72); CALCIUM 8.1 mg/dl (8.6-10.4); GLUCOSE,RANDOM 135 mg/dL (75-110)
[2017-03-10] MEDS ORDERED: Naloxone 0.4 mg/ml Inj (Adult) ONE (08:16)
[2017-03-10] MEDS ORDERED: Naloxone 0.4 mg/ml Inj (Adult) IVP ONE (08:18)
[2017-03-10 09:19] LABS: EOSINOPHIL 1 % (0-4); NEUTROPHIL 84 % (50-75); TOTAL CELLS COUNTED 100
[2017-03-10] MEDS: Potassium Chloride 20 mEq ER Tab PO SCH (10:36)
[2017-03-10] MEDS: Pantoprazole 40 mg EC Tab PO SCH (10:36)
--- NOTE | 2017-03-10 11:47 | CP.PCM.PN ---
Subjective - Date & Time of Evaluation Date of Evaluation: 03/10/17 Time of Evaluation: 08:30 - Subjective Subjective: patient seen in room. rapid response called for desaturation. patient is uncomfortable, complaining of abdominal pain and dyspnea. Objective - Vital Signs/Intake and Output Vital Signs (last 24 hours): Temp Pulse Resp BP Pulse Ox 98.5 F 60 20 147/76 94 L 03/10/17 07:00 03/10/17 07:00 03/10/17 07:00 03/10/17 10:37 03/10/17 07:00 Intake and Output: 03/10/17 03/10/17 06:59 18:59 Output Total 250 Balance -250 - Medications Medications: Current Medications Acetaminophen (Tylenol 325mg Tab) 650 mg PO Q6 PRN PRN Reason: Fever >100.4 F Albuterol (Ventolin Hfa 90 Mcg/Actuation (8 G)) 2 puff INH Q6H PRN PRN Reason: Shortness of Breath Alprazolam (Xanax) 1 mg PO QID [facility]PLACED BY [facility] Last Admin: 03/10/17 10:37 Dose: 1 mg Carvedilol (Coreg) 12.5 mg PO BID [facility] Last Admin: 03/10/17 10:34 Dose: 12.5 mg Digoxin (Lanoxin) 0.125 mg PO DAILY@1800 [facility] Last Admin: 03/09/17 18:38 Dose: 0.125 mg Diltiazem HCl (Cardizem) 60 mg PO Q6 [facility] Last Admin: 03/10/17 06:13 Dose: 60 mg Enalapril Maleate (Vasotec) 20 mg PO DAILY [facility] Last Admin: 03/10/17 10:37 Dose: 20 mg Fluoxetine HCl (Prozac) 40 mg PO DAILY [facility] Last Admin: 03/10/17 10:34 Dose: 40 mg Furosemide (Lasix) 40 mg PO DAILY [facility] Last Admin: 03/10/17 10:36 Dose: 40 mg Gabapentin (Neurontin) 600 mg PO HS [facility] Last Admin: 03/09/17 21:30 Dose: 600 mg Gabapentin (Neurontin) 300 mg PO QAM [facility] Last Admin: 03/10/17 10:36 Dose: 300 mg Hydralazine HCl (Apresoline) 25 mg PO DAILY [facility] Last Admin: 03/10/17 10:37 Dose: 25 mg Hydrochlorothiazide (Hydrodiuril) 50 mg PO DAILY [facility] Last Admin: 03/10/17 10:34 Dose: 50 mg Hydromorphone HCl (Dilaudid) 1 mg IVP Q8H PRN PRN Reason: severe pain Last Admin: 03/10/17 07:50 Dose: 1 mg Imipenem/Cilastatin Sodium 500 (mg/ Sodium Chloride) 100 mls @ 100 mls/hr IVPB Q6H [facility] Last Admin: 03/10/17 06:14 Dose: 100 mls/hr Vancomycin/Sodium Chloride (Vancocin) 200 mls @ 133.333 mls/hr IVPB Q12H [facility] Last Admin: 03/10/17 02:00 Dose: 133.333 mls/hr Montelukast Sodium (Singulair) 10 mg PO [facility] Last Admin: 03/09/17 21:30 Dose: 10 mg Pantoprazole Sodium (Protonix Ec Tab) 40 mg PO DAILY [facility] Last Admin: 03/10/17 10:36 Dose: 40 mg Potassium Chloride (K-Dur 20 Meq Er Tab) 20 meq PO DAILY [facility] Last Admin: 03/10/17 10:36 Dose: 20 meq Rosuvastatin Calcium (Crestor) 5 mg PO [facility] Last Admin: 03/09/17 21:30 Dose: 5 mg - Labs Labs: 03/10/17 07:36 03/10/17 07:36 PT 16.5 SECONDS (9.7-12.2) H 03/05/17 09:58 INR 1.4 03/05/17 09:58 APTT 35 SECONDS (21-34) H 03/05/17 09:58 - Constitutional Appears: Toxic - Head Exam Head Exam: NORMAL INSPECTION - Eye Exam Eye Exam: Normal appearance - ENT Exam ENT Exam: Mucous Membranes Moist - Neck Exam Neck Exam: Full ROM - Respiratory Exam Respiratory Exam: Decreased Breath Sounds - Cardiovascular Exam Cardiovascular Exam: Irregular Rhythm - GI/Abdominal Exam GI & Abdominal Exam: Distended, Guarding, Tenderness - Rectal Exam Rectal Exam: Deferred - Extremities Exam Extremities Exam: absent: Tenderness - Back Exam Back Exam: NORMAL INSPECTION - Neurological Exam Neurological Exam: Alert - Psychiatric Exam Psychiatric exam: Normal Mood - Skin Skin Exam: Warm Assessment and Plan (1) Spleen hematoma Assessment & Plan: unclear if patient now has peritonits. recommend transfer to ICU. surgical evaluation. Status: Acute (2) Atrial fibrillation with rapid ventricular response Assessment & Plan: controlled Status: Chronic (3) Hypertension Assessment & Plan: controlled Status: Chronic (4) CAD (coronary artery disease) Assessment & Plan: no current angina Status: Chronic (5) Chronic left ventricular systolic dysfunction Status: Acute
--- NOTE | 2017-03-10 16:27 | CP.PCM.PN ---
Subjective - Date & Time of Evaluation Date of Evaluation: 03/10/17 Time of Evaluation: 07:00 - Subjective Subjective: SURGERY PROGRESS NOTE FOR DR. GAYTAN Patient seen and examined at bedside. He still reports some abdominal pain. Patient had disconnected his IV. CT Abdomen showed modest decrease in hematoma. Objective - Vital Signs/Intake and Output Vital Signs (last 24 hours): Temp Pulse Resp BP Pulse Ox 98.9 F 90 20 100/67 95 03/10/17 14:00 03/10/17 14:00 03/10/17 07:00 03/10/17 14:00 03/10/17 14:00 Intake and Output: 03/10/17 03/10/17 06:59 18:59 Output Total 250 Balance -250 - Medications Medications: Current Medications Acetaminophen (Tylenol 325mg Tab) 650 mg PO Q6 PRN PRN Reason: Fever >100.4 F Albuterol (Ventolin Hfa 90 Mcg/Actuation (8 G)) 2 puff INH Q6H PRN PRN Reason: Shortness of Breath Alprazolam (Xanax) 1 mg PO QID [facility] Last Admin: 03/10/17 14:28 Dose: 1 mg Carvedilol (Coreg) 12.5 mg PO BID [facility] Last Admin: 03/10/17 10:34 Dose: 12.5 mg Digoxin (Lanoxin) 0.125 mg PO DAILY@1800 [facility] Last Admin: 03/09/17 18:38 Dose: 0.125 mg Diltiazem HCl (Cardizem) 60 mg PO Q6 [facility] Last Admin: 03/10/17 12:26 Dose: 60 mg Enalapril Maleate (Vasotec) 20 mg PO DAILY [facility] Last Admin: 03/10/17 10:37 Dose: 20 mg Fluoxetine HCl (Prozac) 40 mg PO DAILY [facility] Last Admin: 03/10/17 10:34 Dose: 40 mg Furosemide (Lasix) 40 mg PO DAILY [facility] Last Admin: 03/10/17 10:36 Dose: 40 mg Gabapentin (Neurontin) 600 mg PO HS [facility] Last Admin: 03/09/17 21:30 Dose: 600 mg Gabapentin (Neurontin) 300 mg PO QAM [facility] Last Admin: 03/10/17 10:36 Dose: 300 mg Hydralazine HCl (Apresoline) 25 mg PO DAILY [facility] Last Admin: 03/10/17 10:37 Dose: 25 mg Hydrochlorothiazide (Hydrodiuril) 50 mg PO DAILY [facility] Last Admin: 03/10/17 10:34 Dose: 50 mg Hydromorphone HCl (Dilaudid) 1 mg IVP Q8H PRN PRN Reason: severe pain Last Admin: 03/10/17 07:50 Dose: 1 mg Imipenem/Cilastatin Sodium 500 (mg/ Sodium Chloride) 100 mls @ 100 mls/hr IVPB Q6H [facility] Last Admin: 03/10/17 12:25 Dose: 100 mls/hr Vancomycin/Sodium Chloride (Vancocin) 200 mls @ 133.333 mls/hr IVPB Q12H [facility] Last Admin: 03/10/17 14:29 Dose: 133.333 mls/hr Montelukast Sodium (Singulair) 10 mg PO HS [facility] Last Admin: 03/09/17 21:30 Dose: 10 mg Pantoprazole Sodium (Protonix Ec Tab) 40 mg PO DAILY [facility] Last Admin: 03/10/17 10:36 Dose: 40 mg Potassium Chloride (K-Dur 20 Meq Er Tab) 20 meq PO DAILY [facility] Last Admin: 03/10/17 10:36 Dose: 20 meq Rosuvastatin Calcium (Crestor) 5 mg PO HS [facility] Last Admin: 03/09/17 21:30 Dose: 5 mg - Labs Labs: 03/10/17 07:36 03/10/17 07:36 PT 16.5 SECONDS (9.7-12.2) H 03/05/17 09:58 INR 1.4 03/05/17 09:58 APTT 35 SECONDS (21-34) H 03/05/17 09:58 - Constitutional Appears: Non-toxic, No Acute Distress - Head Exam Head Exam: ATRAUMATIC, NORMAL INSPECTION - Eye Exam Eye Exam: EOMI - Respiratory Exam Respiratory Exam: NORMAL BREATHING PATTERN. absent: Respiratory Distress - Cardiovascular Exam Cardiovascular Exam: +S1, +S2 - GI/Abdominal Exam GI & Abdominal Exam: Distended, Soft, Tenderness (mild tender ). absent: Guarding, Rigid, Rebound - Neurological Exam Neurological Exam: Alert, Awake - Psychiatric Exam Psychiatric exam: Normal Affect, Normal Mood - Skin Skin Exam: Dry, Normal Color, Warm Assessment and Plan - Assessment and Plan (Free Text) Assessment: 46yo M with large subcapsular splenic hematoma s/p IR drainage - Afebrile, VSS - Hemoglobin 11.8 today, stable from yesterday - Repeat CT showed modest decrease in size of LUQ subcapsular splenic hematma - No further surgical intervention necessary - Discussed plan with Dr. Parrish Summers PGY-2
[2017-03-10] MEDS: Digoxin 125 mcg (0.125 mg) Tab PO SCH (17:53)
--- NOTE | 2017-03-10 17:59 | CP.PCM.PN ---
<Miguel Landaverde - Last Filed: 03/10/17 18:04> Subjective - Date & Time of Evaluation Date of Evaluation: 03/10/17 Time of Evaluation: 08:15 - Subjective Subjective: POLYSOM TECH RAPID RESPONSE NOTE Rapid response was called at 8:09 due to the pt being in diaphoretic and lethargic. Wood Carving Lathe Operator, Dr. Morgan, was on floor and responded to rapid. Pt was given narcan. Pt's mental status imrpoved and he became agitated, screaming at staff to leave him alone. Vitals taken at 8:10 revealed a BP of 112/83, heart rate of 87, temp of 97.7m and 02 sat of 94% on RA. Pt refused BiPAP and ABG. ICU, Dr. Santos, was consulted. As per Dr. Santos, pt was not candidate for the ICU at the time. Objective - Vital Signs/Intake and Output Vital Signs (last 24 hours): Temp Pulse Resp BP Pulse Ox 99.8 F H 87 20 112/66 93 L 03/10/17 16:51 03/10/17 16:51 03/10/17 16:51 03/10/17 17:56 03/10/17 16:51 Intake and Output: 03/10/17 03/10/17 06:59 18:59 Output Total 250 Balance -250 - Medications Medications: Current Medications Acetaminophen (Tylenol 325mg Tab) 650 mg PO Q6 PRN PRN Reason: Fever >100.4 F Albuterol (Ventolin Hfa 90 Mcg/Actuation (8 G)) 2 puff INH Q6H PRN PRN Reason: Shortness of Breath Alprazolam (Xanax) 1 mg PO QID [facility] Last Admin: 03/10/17 17:56 Dose: 1 mg Carvedilol (Coreg) 12.5 mg PO BID [facility] Last Admin: 03/10/17 17:56 Dose: 12.5 mg Digoxin (Lanoxin) 0.125 mg PO DAILY@1800 [facility] Last Admin: 03/10/17 17:53 Dose: 0.125 mg Diltiazem HCl (Cardizem) 60 mg PO Q6 [facility] Last Admin: 03/10/17 17:56 Dose: 60 mg Enalapril Maleate (Vasotec) 20 mg PO DAILY [facility] Last Admin: 03/10/17 10:37 Dose: 20 mg Fluoxetine HCl (Prozac) 40 mg PO DAILY [facility] Last Admin: 03/10/17 10:34 Dose: 40 mg Furosemide (Lasix) 40 mg PO DAILY [facility] Last Admin: 03/10/17 10:36 Dose: 40 mg Gabapentin (Neurontin) 600 mg PO HS [facility] Last Admin: 03/09/17 21:30 Dose: 600 mg Gabapentin (Neurontin) 300 mg PO QAM [facility] Last Admin: 03/10/17 10:36 Dose: 300 mg Hydralazine HCl (Apresoline) 25 mg PO DAILY [facility] Last Admin: 03/10/17 10:37 Dose: 25 mg Hydrochlorothiazide (Hydrodiuril) 50 mg PO DAILY [facility] Last Admin: 03/10/17 10:34 Dose: 50 mg Hydromorphone HCl (Dilaudid) 1 mg IVP Q8H PRN PRN Reason: severe pain Last Admin: 03/10/17 07:50 Dose: 1 mg Imipenem/Cilastatin Sodium 500 (mg/ Sodium Chloride) 100 mls @ 100 mls/hr IVPB Q6H [facility] Last Admin: 03/10/17 12:25 Dose: 100 mls/hr Vancomycin/Sodium Chloride (Vancocin) 200 mls @ 133.333 mls/hr IVPB Q12H [facility] Last Admin: 03/10/17 14:29 Dose: 133.333 mls/hr Montelukast Sodium (Singulair) 10 mg PO HS [facility] Last Admin: 03/09/17 21:30 Dose: 10 mg Pantoprazole Sodium (Protonix Ec Tab) 40 mg PO DAILY [facility] Last Admin: 03/10/17 10:36 Dose: 40 mg Potassium Chloride (K-Dur 20 Meq Er Tab) 20 meq PO DAILY [facility] Last Admin: 03/10/17 10:36 Dose: 20 meq Rosuvastatin Calcium (Crestor) 5 mg PO HS [facility] Last Admin: 03/09/17 21:30 Dose: 5 mg - Labs Labs: 03/10/17 07:36 03/10/17 07:36 PT 16.5 SECONDS (9.7-12.2) H 03/05/17 09:58 INR 1.4 03/05/17 09:58 APTT 35 SECONDS (21-34) H 03/05/17 09:58 <Janis Redd V - Last Filed: 03/14/17 05:24> Objective - Vital Signs/Intake and Output Vital Signs (last 24 hours): Temp Pulse Resp BP Pulse Ox 97.6 F 74 20 102/64 97 03/13/17 08:11 03/13/17 16:40 03/13/17 08:11 03/13/17 18:26 03/13/17 08:11 Intake and Output: 03/13/17 03/14/17 18:59 06:59 Intake Total 500 Balance 500 - Labs Labs: 03/13/17 11:24 03/13/17 11:24 PT 16.5 SECONDS (9.7-12.2) H 03/05/17 09:58 INR 1.4 03/05/17 09:58 APTT 35 SECONDS (21-34) H 03/05/17 09:58 Attending/Attestation - Attestation Notes (Text): Responded to rapid response for shortness of breathe. Patient is awake, alert but sluggish. Recently received Dilaudid. Given Narcan and patient rapidly improved. Patient refused ABG/refused Bipap/refused blood work, cursed majority of us in the room, refused to do anything, reporting he would like to eat his breakfast first. Evaluated by cardiology at bedside, recommended ICU eval, ICU determined not a candidate at this time. Patient stablized and improved compared to initial evaluation. Recommended nursing to put him on telemetry and close to the nursing station. Resident spoke with PMD regarding patient. Further management per primary attending.
--- NOTE | 2017-03-10 18:14 | CP.PCM.PN ---
<Miguel Landaverde - Last Filed: 03/10/17 18:09> Subjective - Date & Time of Evaluation Date of Evaluation: 03/10/17 Time of Evaluation: 10:32 - Subjective Subjective: Pt seen and examined. Pt complaining of back pain and difficulty breathing. Pt denies fever, chills, chest pain, nasuea, and vomiting. Objective - Vital Signs/Intake and Output Vital Signs (last 24 hours): Temp Pulse Resp BP Pulse Ox 99.8 F H 87 20 112/66 93 L 03/10/17 16:51 03/10/17 16:51 03/10/17 16:51 03/10/17 17:56 03/10/17 16:51 Intake and Output: 03/10/17 03/10/17 06:59 18:59 Output Total 250 Balance -250 - Medications Medications: Current Medications Acetaminophen (Tylenol 325mg Tab) 650 mg PO Q6 PRN PRN Reason: Fever >100.4 F Albuterol (Ventolin Hfa 90 Mcg/Actuation (8 G)) 2 puff INH Q6H PRN PRN Reason: Shortness of Breath Alprazolam (Xanax) 1 mg PO QID [facility] Last Admin: 03/10/17 17:56 Dose: 1 mg Carvedilol (Coreg) 12.5 mg PO BID [facility] Last Admin: 03/10/17 17:56 Dose: 12.5 mg Digoxin (Lanoxin) 0.125 mg PO DAILY@1800 [facility] Last Admin: 03/10/17 17:53 Dose: 0.125 mg Diltiazem HCl (Cardizem) 60 mg PO Q6 [facility] Last Admin: 03/10/17 17:56 Dose: 60 mg Enalapril Maleate (Vasotec) 20 mg PO DAILY [facility] Last Admin: 03/10/17 10:37 Dose: 20 mg Fluoxetine HCl (Prozac) 40 mg PO DAILY [facility] Last Admin: 03/10/17 10:34 Dose: 40 mg Furosemide (Lasix) 40 mg PO DAILY [facility] Last Admin: 03/10/17 10:36 Dose: 40 mg Gabapentin (Neurontin) 600 mg PO HS [facility] Last Admin: 03/09/17 21:30 Dose: 600 mg Gabapentin (Neurontin) 300 mg PO QAM [facility] Last Admin: 03/10/17 10:36 Dose: 300 mg Hydralazine HCl (Apresoline) 25 mg PO DAILY [facility] Last Admin: 03/10/17 10:37 Dose: 25 mg Hydrochlorothiazide (Hydrodiuril) 50 mg PO DAILY [facility] Last Admin: 03/10/17 10:34 Dose: 50 mg Hydromorphone HCl (Dilaudid) 1 mg IVP Q8H PRN PRN Reason: severe pain Last Admin: 03/10/17 07:50 Dose: 1 mg Imipenem/Cilastatin Sodium 500 (mg/ Sodium Chloride) 100 mls @ 100 mls/hr IVPB Q6H [facility] Last Admin: 03/10/17 12:25 Dose: 100 mls/hr Vancomycin/Sodium Chloride (Vancocin) 200 mls @ 133.333 mls/hr IVPB Q12H [facility] Last Admin: 03/10/17 14:29 Dose: 133.333 mls/hr Montelukast Sodium (Singulair) 10 mg PO HS [facility] Last Admin: 03/09/17 21:30 Dose: 10 mg Pantoprazole Sodium (Protonix Ec Tab) 40 mg PO DAILY [facility] Last Admin: 03/10/17 10:36 Dose: 40 mg Potassium Chloride (K-Dur 20 Meq Er Tab) 20 meq PO DAILY [facility] Last Admin: 03/10/17 10:36 Dose: 20 meq Rosuvastatin Calcium (Crestor) 5 mg PO HS [facility] Last Admin: 03/09/17 21:30 Dose: 5 mg - Labs Labs: 03/10/17 07:36 03/10/17 07:36 PT 16.5 SECONDS (9.7-12.2) H 03/05/17 09:58 INR 1.4 03/05/17 09:58 APTT 35 SECONDS (21-34) H 03/05/17 09:58 - Constitutional Appears: Toxic - Head Exam Head Exam: ATRAUMATIC, NORMOCEPHALIC - Eye Exam Eye Exam: EOMI, PERRL - ENT Exam ENT Exam: Mucous Membranes Moist. absent: Mucous Membranes Dry - Respiratory Exam Respiratory Exam: Clear to Ausculation Bilateral. absent: Rhonchi, Wheezes - Cardiovascular Exam Cardiovascular Exam: REGULAR RHYTHM, +S1, +S2. absent: Rubs, Murmur - GI/Abdominal Exam GI & Abdominal Exam: Soft, Normal Bowel Sounds. absent: Rigid, Tenderness - Neurological Exam Neurological Exam: Alert, Awake, Oriented x3 - Psychiatric Exam Psychiatric exam: Agitated - Skin Skin Exam: Intact, Normal Color, Warm Assessment and Plan - Assessment and Plan (Free Text) Assessment: Splenic Hematoma s/p drainage on 03/06/17 by IR- 1000ml Drainage culture positive for MRSA consult surgery- Dr. Grimes consult ID- Dr. Sorenson Continue Vanco 1gm IVPB Q12h Continue Primaxin IVPB Q6h [facility] Repeat CT - modest decrease in size of subcapsular splenic hematoma (please see full report) HTN consult cardio- Dr. Morgan Hydralazine 25mg PO Daily HCTZ 50mg PO Daily Vasotec 20mg PO Daily CAD s/p 4 stents consult cardio- Dr. Morgan Crestor 5mg PO HS CHF consult cardio- Dr. Morgan Per Dr. Morgan, patient refusing AICD. Digoxin 0.125mg PO HS Afib consult cardio- Dr. Morgan held Coumadin secondary to splenic hematoma Continue Cardizem 60mg PO Q6h [facility] Continue Coreg 12.5mg PO BID Continue Xanax 1mg PO QID Bipolar/Depression Continue Prozac 40mg PO Daily Continue COPD consult pulm- Dr. Santos Albuertol 2 puff Q6h PRN ARLENE consult pulm- Dr. Santos Herniated Discs Percocet 2 tab 5/325 Q6h PRN Dilaudid 1mg IVP Q8h PRN Neurontin 600mg PO HS Neurontin 300mg PO qAM Prophylactic measure Protonix 40mg PO Daily contraindication for anticoagulation- hemorrhage <Roque Ocampo Jr. - Last Filed: 03/13/17 16:47> Objective - Vital Signs/Intake and Output Vital Signs (last 24 hours): Temp Pulse Resp BP Pulse Ox 97.6 F 74 20 102/54 L 97 03/13/17 08:11 03/13/17 16:40 03/13/17 08:11 03/13/17 13:01 03/13/17 08:11 Intake and Output: 03/13/17 03/13/17 06:59 18:59 Intake Total 680 500 Balance 680 500 - Medications Medications: Current Medications Acetaminophen (Tylenol 325mg Tab) 650 mg PO Q6 PRN PRN Reason: Fever >100.4 F Last Admin: 03/12/17 12:21 Dose: 650 mg Albuterol (Ventolin Hfa 90 Mcg/Actuation (8 G)) 2 puff INH Q6H PRN PRN Reason: Shortness of Breath Alprazolam (Xanax) 1 mg PO QID PRN PRN Reason: Anxiety Last Admin: 03/13/17 13:31 Dose: 1 mg Carvedilol (Coreg) 12.5 mg PO BID [facility] Last Admin: 03/13/17 10:21 Dose: 12.5 mg Digoxin (Lanoxin) 0.125 mg PO DAILY@1800 [facility] Last Admin: 03/12/17 18:04 Dose: 0.125 mg Diltiazem HCl (Cardizem) 60 mg PO Q6 [facility] Last Admin: 03/13/17 13:00 Dose: 60 mg Enalapril Maleate (Vasotec) 20 mg PO DAILY [facility] Last Admin: 03/13/17 10:22 Dose: 20 mg Fluoxetine HCl (Prozac) 40 mg PO DAILY [facility] Last Admin: 03/13/17 10:23 Dose: 40 mg Furosemide (Lasix) 40 mg PO DAILY [facility] Last Admin: 03/13/17 10:21 Dose: 40 mg Gabapentin (Neurontin) 600 mg PO HS [facility] Last Admin: 03/12/17 21:41 Dose: 600 mg Gabapentin (Neurontin) 300 mg PO QAM [facility] Last Admin: 03/13/17 10:21 Dose: 300 mg Hydralazine HCl (Apresoline) 25 mg PO DAILY [facility] Last Admin: 03/13/17 10:22 Dose: 25 mg Hydrochlorothiazide (Hydrodiuril) 50 mg PO DAILY [facility] Last Admin: 03/13/17 10:21 Dose: 50 mg Vancomycin/Sodium Chloride (Vancocin) 200 mls @ 166.6 mls/hr IVPB Q8H [facility] Last Admin: 03/13/17 12:50 Dose: Not Given Montelukast Sodium (Singulair) 10 mg PO HS [facility] Last Admin: 03/12/17 21:41 Dose: 10 mg Oxycodone/Acetaminophen (Percocet 5/325 Mg Tab) 2 tab PO Q6H PRN PRN Reason: Pain, severe (8-10) Stop: 03/15/17 18:09 Last Admin: 03/13/17 10:23 Dose: 2 tab Pantoprazole Sodium (Protonix Ec Tab) 40 mg PO DAILY [facility] Last Admin: 03/13/17 10:21 Dose: 40 mg Potassium Chloride (K-Dur 20 Meq Er Tab) 20 meq PO DAILY [facility] Last Admin: 03/13/17 10:22 Dose: Not Given Rosuvastatin Calcium (Crestor) 5 mg PO HS [facility] Last Admin: 03/12/17 21:41 Dose: 5 mg - Labs Labs: 03/13/17 11:24 03/13/17 11:24 PT 16.5 SECONDS (9.7-12.2) H 03/05/17 09:58 INR 1.4 03/05/17 09:58 APTT 35 SECONDS (21-34) H 03/05/17 09:58 Attending/Attestation - Attestation I have personally seen and examined this patient.: Yes I have fully participated in the care of the patient.: Yes I have reviewed all pertinent clinical information, including history, physical exam and plan: Yes Notes (Text): 03/13/17 16:47 Patient seen and examined. Reviewed resident note in plan of care. Agree with findings and plan
[2017-03-11] MEDS: Vancomycin 1 gm/NS 200 ml 200 ML IVPB SCH ×3 (02:00→21:56)
--- NOTE | 2017-03-11 07:57 | PN ---
DATE: 03/10/2017 ROOM: 562. SUBJECTIVE: This is a 46-year-old male with recent rapid atrial fibrillation and precordial chest pa in, AND now being followed closely for hemodynamic management. He was also metabolic , an d initial latest variable with apparent polymyalgias and severe . . ___ __. . Yaquelin Cantu MD cc: [id number] TT: 03/10/2017 17:12:44 Confirmation # [id number] Dictation # [id number] dn
[2017-03-11 08:02] LABS: BASO # 0.1 K/uL (0.0-0.2); BASO % 0.4 % (0.0-2.0); EOS % 0.1 % (0.0-4.0); LYMPH # 1.5 K/uL (1.0-4.3); LYMPH % 7.3 % (20.0-40.0); MEAN CELL VOLUME 82.6 fL (80.0-94.0); MEAN CORPUSCULAR HEMOGLOBIN 26.4 pg (27.0-31.0); MEAN CORPUSCULAR HGB CONC 31.9 g/dL (33.0-37.0); MEAN PLATELET VOLUME 7.4 fL (7.2-11.7); MONO # 1.6 K/uL (0.0-0.8); MONO % 8.1 % (0.0-10.0); PLATELET COUNT 338 K/uL (130-400); RED CELL DISTRIBUTION WIDTH 15.8 % (11.5-14.5); WHITE BLOOD COUNT 20.4 K/uL (4.8-10.8)
[2017-03-11 08:20] LABS: CHLORIDE 87 mmol/L (98-107); POTASSIUM 4.2 mmol/L (3.6-5.2); SODIUM 130 mmol/L (132-148)
[2017-03-11 08:22] LABS: GFR AFRICAN-AMERICAN > 60
[2017-03-11 08:23] LABS: ALB/GLOB RATIO 0.7 (1.0-2.1); ALKALINE PHOSPHATASE 94 U/L (38-126); ALT/SGPT 16 U/L (21-72); AST/SGOT 26 U/L (17-59); BILIRUBIN,TOTAL 0.8 mg/dL (0.2-1.3); BLOOD UREA NITROGEN 14 mg/dL (9-20); CARBON DIOXIDE 32 mmol/L (22-30); GLUCOSE,RANDOM 131 mg/dL (75-110); TOTAL PROTEIN 7.8 g/dL (6.3-8.3)
[2017-03-11 08:24] LABS: CALCIUM 7.7 mg/dl (8.6-10.4)
[2017-03-11 09:57] LABS: BASOPHIL 1 % (0-2); NEUTROPHIL 82 % (50-75); TOTAL CELLS COUNTED 100
[2017-03-11] MEDS: Pantoprazole 40 mg EC Tab PO SCH (10:39)
[2017-03-11] MEDS: Potassium Chloride 20 mEq ER Tab PO SCH (10:40)
--- NOTE | 2017-03-11 14:58 | CP.PCM.PN ---
Subjective - Date & Time of Evaluation Date of Evaluation: 03/11/17 Time of Evaluation: 09:18 - Subjective Subjective: Pt seen and examined. Pt reports that he has pain in his left mid abdomen radiating to his right flank. Pt also reports that he is short of breath and unable to sleep at night flat in the bed due to his sleep apnea. Pt reports Objective - Vital Signs/Intake and Output Vital Signs (last 24 hours): Temp Pulse Resp BP Pulse Ox 98.3 F 96 H 20 146/91 H 93 L 03/11/17 08:00 03/11/17 08:00 03/11/17 08:00 03/11/17 10:51 03/11/17 08:00 - Medications Medications: Current Medications Acetaminophen (Tylenol 325mg Tab) 650 mg PO Q6 PRN PRN Reason: Fever >100.4 F Last Admin: 03/11/17 04:19 Dose: 650 mg Albuterol (Ventolin Hfa 90 Mcg/Actuation (8 G)) 2 puff INH Q6H PRN PRN Reason: Shortness of Breath Alprazolam (Xanax) 1 mg PO QID [facility] Last Admin: 03/11/17 14:09 Dose: 1 mg Carvedilol (Coreg) 12.5 mg PO BID [facility] Last Admin: 03/11/17 10:51 Dose: 12.5 mg Digoxin (Lanoxin) 0.125 mg PO DAILY@1800 [facility] Last Admin: 03/10/17 17:53 Dose: 0.125 mg Diltiazem HCl (Cardizem) 60 mg PO Q6 [facility] Last Admin: 03/11/17 12:00 Dose: 60 mg Enalapril Maleate (Vasotec) 20 mg PO DAILY [facility] Last Admin: 03/11/17 10:40 Dose: 20 mg Fluoxetine HCl (Prozac) 40 mg PO DAILY [facility] Furosemide (Lasix) 40 mg PO DAILY [facility] Last Admin: 03/11/17 10:41 Dose: 40 mg Gabapentin (Neurontin) 600 mg PO HS [facility] Last Admin: 03/10/17 22:07 Dose: 600 mg Gabapentin (Neurontin) 300 mg PO QAM [facility] Last Admin: 03/11/17 10:39 Dose: 300 mg Hydralazine HCl (Apresoline) 25 mg PO DAILY [facility] Last Admin: 03/11/17 10:40 Dose: 25 mg Hydrochlorothiazide (Hydrodiuril) 50 mg PO DAILY [facility] Last Admin: 03/11/17 10:40 Dose: 50 mg Imipenem/Cilastatin Sodium 500 (mg/ Sodium Chloride) 100 mls @ 100 mls/hr IVPB Q6H [facility] Last Admin: 03/11/17 14:08 Dose: 100 mls/hr Vancomycin/Sodium Chloride (Vancocin) 200 mls @ 133.333 mls/hr IVPB Q12H [facility] Last Admin: 03/11/17 14:08 Dose: 133.333 mls/hr Montelukast Sodium (Singulair) 10 mg PO HS [facility] Last Admin: 03/10/17 22:06 Dose: 10 mg Pantoprazole Sodium (Protonix Ec Tab) 40 mg PO DAILY [facility] Last Admin: 03/11/17 10:39 Dose: 40 mg Potassium Chloride (K-Dur 20 Meq Er Tab) 20 meq PO DAILY [facility] Last Admin: 03/11/17 10:40 Dose: 20 meq Rosuvastatin Calcium (Crestor) 5 mg PO HS [facility] Last Admin: 03/10/17 22:07 Dose: 5 mg - Labs Labs: 03/11/17 07:58 03/11/17 07:58 PT 16.5 SECONDS (9.7-12.2) H 03/05/17 09:58 INR 1.4 03/05/17 09:58 APTT 35 SECONDS (21-34) H 03/05/17 09:58
[2017-03-11] MEDS: Digoxin 125 mcg (0.125 mg) Tab PO SCH (17:31)
--- NOTE | 2017-03-11 17:32 | PN ---
DATE: 03/11/2017 ROOM: 562. SUBJECTIVE: This is a 46-year-old male with recent rapid atrial fibrillation and has now improved he modynamically, and has been transferred to telemetry for further cardiac management, and is also bein g followed closely for metabolic management because of recent hypocalcemia, as noted thereof. His la test chemistry showed a BUN of 14, sodium 130, potassium 4.2, chloride 87, CO2 32, glucose 131, and c reatinine 0.9. His calcium level is 7.7, with an albumin level of 3.1, with a corrected calcium of 8 .6 mg/dL. So, at this time, will continue the present medical management and obtain serial chemistries and supp lement accordingly as needed. We will follow and advise accordingly. Yaquelin Cantu MD cc: [id number] TT: 03/11/2017 17:31:20 Confirmation # [id number] Dictation # [id number] delfina
--- NOTE | 2017-03-11 18:57 | CP.PCM.PN ---
Subjective - Date & Time of Evaluation Date of Evaluation: 03/11/17 Time of Evaluation: 09:00 - Subjective Subjective: GROWING MRSA BLOOD RECURRENT BACTEREMIA- SUSPECT ENDOCARDITIS AND OR SPLENIC ABSCESS NEEDS PILY MAY NEED SPLENECTOMY IF SPLEEN IS THE SOURCE- INFECTED HEMATOMA ? cont rx for 8 weeks Objective - Vital Signs/Intake and Output Vital Signs (last 24 hours): Temp Pulse Resp BP Pulse Ox 98.9 F 97 H 20 105/66 93 L 03/11/17 15:43 03/11/17 18:38 03/11/17 15:43 03/11/17 15:43 03/11/17 15:43 Intake and Output: 03/11/17 03/11/17 06:59 18:59 Intake Total 560 Balance 560 - Medications Medications: Current Medications Acetaminophen (Tylenol 325mg Tab) 650 mg PO Q6 PRN PRN Reason: Fever >100.4 F Last Admin: 03/11/17 04:19 Dose: 650 mg Albuterol (Ventolin Hfa 90 Mcg/Actuation (8 G)) 2 puff INH Q6H PRN PRN Reason: Shortness of Breath Alprazolam (Xanax) 1 mg PO QID [facility] Last Admin: 03/11/17 17:32 Dose: 1 mg Carvedilol (Coreg) 12.5 mg PO BID [facility] Last Admin: 03/11/17 17:20 Dose: Not Given Digoxin (Lanoxin) 0.125 mg PO DAILY@1800 [facility] Last Admin: 03/11/17 17:31 Dose: 0.125 mg Diltiazem HCl (Cardizem) 60 mg PO Q6 [facility] Last Admin: 03/11/17 17:20 Dose: Not Given Enalapril Maleate (Vasotec) 20 mg PO DAILY [facility] Last Admin: 03/11/17 10:40 Dose: 20 mg Fluoxetine HCl (Prozac) 40 mg PO DAILY [facility] Furosemide (Lasix) 40 mg PO DAILY [facility] Last Admin: 03/11/17 10:41 Dose: 40 mg Gabapentin (Neurontin) 600 mg PO HS [facility] Last Admin: 03/10/17 22:07 Dose: 600 mg Gabapentin (Neurontin) 300 mg PO QAM [facility] Last Admin: 03/11/17 10:39 Dose: 300 mg Hydralazine HCl (Apresoline) 25 mg PO DAILY [facility] Last Admin: 03/11/17 10:40 Dose: 25 mg Hydrochlorothiazide (Hydrodiuril) 50 mg PO DAILY [facility] Last Admin: 03/11/17 10:40 Dose: 50 mg Imipenem/Cilastatin Sodium 500 (mg/ Sodium Chloride) 100 mls @ 100 mls/hr IVPB Q6H [facility] Last Admin: 03/11/17 14:08 Dose: 100 mls/hr Vancomycin/Sodium Chloride (Vancocin) 200 mls @ 133.333 mls/hr IVPB Q12H [facility] Last Admin: 03/11/17 14:08 Dose: 133.333 mls/hr Montelukast Sodium (Singulair) 10 mg PO HS [facility] Last Admin: 03/10/17 22:06 Dose: 10 mg Pantoprazole Sodium (Protonix Ec Tab) 40 mg PO DAILY [facility] Last Admin: 03/11/17 10:39 Dose: 40 mg Potassium Chloride (K-Dur 20 Meq Er Tab) 20 meq PO DAILY [facility] Last Admin: 03/11/17 10:40 Dose: 20 meq Rosuvastatin Calcium (Crestor) 5 mg PO [facility] Last Admin: 03/10/17 22:07 Dose: 5 mg - Labs Labs: 03/11/17 07:58 03/11/17 07:58 PT 16.5 SECONDS (9.7-12.2) H 03/05/17 09:58 INR 1.4 03/05/17 09:58 APTT 35 SECONDS (21-34) H 03/05/17 09:58 - Constitutional Appears: Toxic - Head Exam Head Exam: NORMOCEPHALIC - Eye Exam Eye Exam: absent: Scleral icterus - ENT Exam ENT Exam: Mucous Membranes Dry - Neck Exam Neck Exam: absent: Lymphadenopathy - Respiratory Exam Respiratory Exam: Decreased Breath Sounds - Cardiovascular Exam Cardiovascular Exam: REGULAR RHYTHM - GI/Abdominal Exam GI & Abdominal Exam: Distended, Tenderness - Rectal Exam Rectal Exam: Deferred Assessment and Plan (1) Chronic left ventricular systolic dysfunction Status: Acute (2) Atrial fibrillation with rapid ventricular response Status: Chronic (3) Degenerative disc disease, lumbar Status: Chronic (4) Hypertension Status: Chronic (5) Sleep apnea Status: Chronic (6) ACS (acute coronary syndrome) Status: Acute (7) Abdominal pain Status: Acute (8) Anticoagulated on Coumadin Status: Acute
--- NOTE | 2017-03-11 19:05 | CP.PCM.PN ---
<Miguel Landaverde - Last Filed: 03/11/17 19:01> Subjective - Date & Time of Evaluation Date of Evaluation: 03/11/17 Time of Evaluation: 10:17 - Subjective Subjective: Pt seen and examined. Pt complaining of left abdominal pain radiating to left flank. Pt also reports shortness of breath. Pt denies fever, chills, chest pain , nausea, and vomiting. Objective - Vital Signs/Intake and Output Vital Signs (last 24 hours): Temp Pulse Resp BP Pulse Ox 98.9 F 97 H 20 105/66 93 L 03/11/17 15:43 03/11/17 18:38 03/11/17 15:43 03/11/17 15:43 03/11/17 15:43 Intake and Output: 03/11/17 03/12/17 18:59 06:59 Intake Total 560 Balance 560 - Medications Medications: Current Medications Acetaminophen (Tylenol 325mg Tab) 650 mg PO Q6 PRN PRN Reason: Fever >100.4 F Last Admin: 03/11/17 04:19 Dose: 650 mg Albuterol (Ventolin Hfa 90 Mcg/Actuation (8 G)) 2 puff INH Q6H PRN PRN Reason: Shortness of Breath Alprazolam (Xanax) 1 mg PO QID [facility] Last Admin: 03/11/17 17:32 Dose: 1 mg Carvedilol (Coreg) 12.5 mg PO BID [facility] Last Admin: 03/11/17 17:20 Dose: Not Given Digoxin (Lanoxin) 0.125 mg PO DAILY@1800 [facility] Last Admin: 03/11/17 17:31 Dose: 0.125 mg Diltiazem HCl (Cardizem) 60 mg PO Q6 [facility] Last Admin: 03/11/17 17:20 Dose: Not Given Enalapril Maleate (Vasotec) 20 mg PO DAILY [facility] Last Admin: 03/11/17 10:40 Dose: 20 mg Fluoxetine HCl (Prozac) 40 mg PO DAILY [facility] Furosemide (Lasix) 40 mg PO DAILY [facility] Last Admin: 03/11/17 10:41 Dose: 40 mg Gabapentin (Neurontin) 600 mg PO HS [facility] Last Admin: 03/10/17 22:07 Dose: 600 mg Gabapentin (Neurontin) 300 mg PO QAM [facility] Last Admin: 03/11/17 10:39 Dose: 300 mg Hydralazine HCl (Apresoline) 25 mg PO DAILY [facility] Last Admin: 03/11/17 10:40 Dose: 25 mg Hydrochlorothiazide (Hydrodiuril) 50 mg PO DAILY [facility] Last Admin: 03/11/17 10:40 Dose: 50 mg Vancomycin/Sodium Chloride (Vancocin) 200 mls @ 166.6 mls/hr IVPB Q8H [facility] Montelukast Sodium (Singulair) 10 mg PO HS [facility] Last Admin: 03/10/17 22:06 Dose: 10 mg Pantoprazole Sodium (Protonix Ec Tab) 40 mg PO DAILY [facility] Last Admin: 03/11/17 10:39 Dose: 40 mg Potassium Chloride (K-Dur 20 Meq Er Tab) 20 meq PO DAILY [facility] Last Admin: 03/11/17 10:40 Dose: 20 meq Rosuvastatin Calcium (Crestor) 5 mg PO HS [facility] Last Admin: 03/10/17 22:07 Dose: 5 mg - Labs Labs: 03/11/17 07:58 03/11/17 07:58 PT 16.5 SECONDS (9.7-12.2) H 03/05/17 09:58 INR 1.4 03/05/17 09:58 APTT 35 SECONDS (21-34) H 03/05/17 09:58 - Constitutional Appears: No Acute Distress - Head Exam Head Exam: ATRAUMATIC, NORMOCEPHALIC - Eye Exam Eye Exam: EOMI, PERRL - ENT Exam ENT Exam: Mucous Membranes Moist. absent: Mucous Membranes Dry - Respiratory Exam Respiratory Exam: Decreased Breath Sounds. absent: Rales, Rhonchi, Wheezes - Cardiovascular Exam Cardiovascular Exam: +S1, +S2. absent: Gallop, Rubs - GI/Abdominal Exam GI & Abdominal Exam: Soft. absent: Rigid, Tenderness - Extremities Exam Extremities Exam: absent: Pedal Edema - Neurological Exam Neurological Exam: Alert, Awake, Oriented x3 - Psychiatric Exam Psychiatric exam: Normal Affect - Skin Skin Exam: Warm Assessment and Plan - Assessment and Plan (Free Text) Assessment: Splenic Hematoma s/p drainage on 03/06/17 by IR- 1000ml Drainage culture positive for MRSA consult surgery- Dr. Grimes consult ID- Dr. Sorenson Continue Vanco 1gm IVPB Q12h Continue Primaxin IVPB Q6h JEIMY Repeat CT - modest decrease in size of subcapsular splenic hematoma (please see full report) IR, Dr. Shankar, consulted for PICC placement for senior living abx HTN consult cardio- Dr. Morgan Hydralazine 25mg PO Daily HCTZ 50mg PO Daily Vasotec 20mg PO Daily CAD s/p 4 stents consult cardio- Dr. Morgan Crestor 5mg PO HS CHF consult cardio- Dr. Morgan Per Dr. Morgan, patient refusing AICD. Digoxin 0.125mg PO HS Afib consult cardio- Dr. Morgan held Coumadin secondary to splenic hematoma Continue Cardizem 60mg PO Q6h JEIM[facility] Continue Coreg 12.5mg PO BID Continue Xanax 1mg PO QID Bipolar/Depression Continue Prozac 40mg PO Daily Continue COPD consult pulm- Dr. Santos Albuertol 2 puff Q6h PRN ARLENE consult pulm- Dr. Santos Herniated Discs Percocet 2 tab 5/325 Q6h PRN Dilaudid 1mg IVP Q8h PRN Neurontin 600mg PO HS Neurontin 300mg PO qAM Prophylactic measure Protonix 40mg PO Daily contraindication for anticoagulation- hemorrhage <Roque Ocampo Jr. - Last Filed: 03/13/17 16:53> Objective - Vital Signs/Intake and Output Vital Signs (last 24 hours): Temp Pulse Resp BP Pulse Ox 97.6 F 74 20 102/54 L 97 03/13/17 08:11 03/13/17 16:40 03/13/17 08:11 03/13/17 13:01 03/13/17 08:11 Intake and Output: 03/13/17 03/13/17 06:59 18:59 Intake Total 680 500 Balance 680 500 - Medications Medications: Current Medications Acetaminophen (Tylenol 325mg Tab) 650 mg PO Q6 PRN PRN Reason: Fever >100.4 F Last Admin: 03/12/17 12:21 Dose: 650 mg Albuterol (Ventolin Hfa 90 Mcg/Actuation (8 G)) 2 puff INH Q6H PRN PRN Reason: Shortness of Breath Alprazolam (Xanax) 1 mg PO QID PRN PRN Reason: Anxiety Last Admin: 03/13/17 13:31 Dose: 1 mg Carvedilol (Coreg) 12.5 mg PO BID [facility] Last Admin: 03/13/17 10:21 Dose: 12.5 mg Digoxin (Lanoxin) 0.125 mg PO DAILY@1800 [facility] Last Admin: 03/12/17 18:04 Dose: 0.125 mg Diltiazem HCl (Cardizem) 60 mg PO Q6 [facility] Last Admin: 03/13/17 13:00 Dose: 60 mg Enalapril Maleate (Vasotec) 20 mg PO DAILY [facility] Last Admin: 03/13/17 10:22 Dose: 20 mg Fluoxetine HCl (Prozac) 40 mg PO DAILY [facility] Last Admin: 03/13/17 10:23 Dose: 40 mg Furosemide (Lasix) 40 mg PO DAILY [facility] Last Admin: 03/13/17 10:21 Dose: 40 mg Gabapentin (Neurontin) 600 mg PO HS [facility] Last Admin: 03/12/17 21:41 Dose: 600 mg Gabapentin (Neurontin) 300 mg PO QAM [facility] Last Admin: 03/13/17 10:21 Dose: 300 mg Hydralazine HCl (Apresoline) 25 mg PO DAILY [facility] Last Admin: 03/13/17 10:22 Dose: 25 mg Hydrochlorothiazide (Hydrodiuril) 50 mg PO DAILY [facility] Last Admin: 03/13/17 10:21 Dose: 50 mg Vancomycin/Sodium Chloride (Vancocin) 200 mls @ 166.6 mls/hr IVPB Q8H [facility] Last Admin: 03/13/17 12:50 Dose: Not Given Montelukast Sodium (Singulair) 10 mg PO HS [facility] Last Admin: 03/12/17 21:41 Dose: 10 mg Oxycodone/Acetaminophen (Percocet 5/325 Mg Tab) 2 tab PO Q6H PRN PRN Reason: Pain, severe (8-10) Stop: 03/15/17 18:09 Last Admin: 03/13/17 10:23 Dose: 2 tab Pantoprazole Sodium (Protonix Ec Tab) 40 mg PO DAILY [facility] Last Admin: 03/13/17 10:21 Dose: 40 mg Potassium Chloride (K-Dur 20 Meq Er Tab) 20 meq PO DAILY [facility] Last Admin: 03/13/17 10:22 Dose: Not Given Rosuvastatin Calcium (Crestor) 5 mg PO HS [facility] Last Admin: 03/12/17 21:41 Dose: 5 mg - Labs Labs: 03/13/17 11:24 03/13/17 11:24 PT 16.5 SECONDS (9.7-12.2) H 03/05/17 09:58 INR 1.4 03/05/17 09:58 APTT 35 SECONDS (21-34) H 03/05/17 09:58 Attending/Attestation - Attestation I have personally seen and examined this patient.: Yes I have fully participated in the care of the patient.: Yes I have reviewed all pertinent clinical information, including history, physical exam and plan: Yes Notes (Text): 03/13/17 16:52 Patient seen and examined. Reviewed resident note and agree with plan of care and findings
[2017-03-12] MEDS: Vancomycin 1 gm/NS 200 ml 200 ML IVPB SCH ×4 (03:25→18:04)
[2017-03-12 04:15] LABS: BASO # 0.1 K/uL (0.0-0.2); BASO % 0.5 % (0.0-2.0); EOS # 0.1 K/uL (0.0-0.7); EOS % 0.4 % (0.0-4.0); LYMPH # 1.4 K/uL (1.0-4.3); LYMPH % 7.7 % (20.0-40.0); MEAN CELL VOLUME 81.6 fL (80.0-94.0); MEAN CORPUSCULAR HEMOGLOBIN 26.5 pg (27.0-31.0); MEAN CORPUSCULAR HGB CONC 32.5 g/dL (33.0-37.0); MEAN PLATELET VOLUME 8.1 fL (7.2-11.7); MONO # 1.5 K/uL (0.0-0.8); MONO % 7.9 % (0.0-10.0); PLATELET COUNT 293 K/uL (130-400); RED CELL DISTRIBUTION WIDTH 16.6 % (11.5-14.5); WHITE BLOOD COUNT 18.8 K/uL (4.8-10.8)
[2017-03-12 05:44] LABS: EOSINOPHIL 1 % (0-4); NEUTROPHIL 81 % (50-75); TOTAL CELLS COUNTED 100
[2017-03-12 08:48] LABS: CHLORIDE 91 mmol/L (98-107); POTASSIUM 4.2 mmol/L (3.6-5.2); SODIUM 132 mmol/L (132-148)
[2017-03-12 08:50] LABS: BILIRUBIN,TOTAL 0.7 mg/dL (0.2-1.3); GFR AFRICAN-AMERICAN > 60
[2017-03-12 08:51] LABS: ALB/GLOB RATIO 0.6 (1.0-2.1); ALKALINE PHOSPHATASE 76 U/L (38-126); ALT/SGPT 12 U/L (21-72); AST/SGOT 27 U/L (17-59); BLOOD UREA NITROGEN 13 mg/dL (9-20); CARBON DIOXIDE 33 mmol/L (22-30); GLUCOSE,RANDOM 104 mg/dL (75-110); TOTAL PROTEIN 8.2 g/dL (6.3-8.3)
[2017-03-12 08:52] LABS: CALCIUM 7.9 mg/dl (8.6-10.4)
[2017-03-12] MEDS: Pantoprazole 40 mg EC Tab PO SCH (09:46)
[2017-03-12] MEDS: Potassium Chloride 20 mEq ER Tab PO SCH (09:47)
[2017-03-12 16:04] LABS: VENOUS BLOOD GAS BASE EXCESS 8.7 mmol/L (0.0-2.0); VENOUS BLOOD GAS PCO2 63 mmHg (40-60); VENOUS BLOOD PH 7.37 (7.32-7.43)
--- NOTE | 2017-03-12 16:51 | CP.PCM.PN ---
Subjective - Date & Time of Evaluation Date of Evaluation: 03/12/17 Time of Evaluation: 08:00 - Subjective Subjective: Pt complaining of left abdominal pain radiating to left flank. Pt also reports shortness of breath. Pt denies fever, chills, chest pain, nausea, and vomiting. Objective - Vital Signs/Intake and Output Vital Signs (last 24 hours): Temp Pulse Resp BP Pulse Ox 99.2 F 90 21 107/59 L 95 03/12/17 16:27 03/12/17 16:27 03/12/17 16:27 03/12/17 16:27 03/12/17 16:27 Intake and Output: 03/12/17 03/12/17 06:59 18:59 Intake Total 940 Output Total 200 Balance 740 - Medications Medications: Current Medications Acetaminophen (Tylenol 325mg Tab) 650 mg PO Q6 PRN PRN Reason: Fever >100.4 F Last Admin: 03/12/17 12:21 Dose: 650 mg Albuterol (Ventolin Hfa 90 Mcg/Actuation (8 G)) 2 puff INH Q6H PRN PRN Reason: Shortness of Breath Alprazolam (Xanax) 1 mg PO QID [facility] Last Admin: 03/12/17 13:28 Dose: 1 mg Carvedilol (Coreg) 12.5 mg PO BID [facility] Last Admin: 03/12/17 09:51 Dose: 12.5 mg Digoxin (Lanoxin) 0.125 mg PO DAILY@1800 [facility] Last Admin: 03/11/17 17:31 Dose: 0.125 mg Diltiazem HCl (Cardizem) 60 mg PO Q6 [facility] Last Admin: 03/12/17 12:17 Dose: Not Given Enalapril Maleate (Vasotec) 20 mg PO DAILY [facility] Last Admin: 03/12/17 09:46 Dose: 20 mg Fluoxetine HCl (Prozac) 40 mg PO DAILY [facility] Last Admin: 03/12/17 09:47 Dose: 40 mg Furosemide (Lasix) 40 mg PO DAILY [facility] Last Admin: 03/12/17 09:47 Dose: 40 mg Gabapentin (Neurontin) 600 mg PO HS [facility] Last Admin: 03/11/17 22:01 Dose: 600 mg Gabapentin (Neurontin) 300 mg PO QAM [facility] Last Admin: 03/12/17 09:46 Dose: 300 mg Hydralazine HCl (Apresoline) 25 mg PO DAILY [facility] Last Admin: 03/12/17 09:46 Dose: 25 mg Hydrochlorothiazide (Hydrodiuril) 50 mg PO DAILY [facility] Last Admin: 03/12/17 09:46 Dose: 50 mg Vancomycin/Sodium Chloride (Vancocin) 200 mls @ 166.6 mls/hr IVPB Q8H [facility] Last Admin: 03/12/17 10:32 Dose: 166.6 mls/hr Montelukast Sodium (Singulair) 10 mg PO HS [facility] Last Admin: 03/11/17 22:02 Dose: 10 mg Pantoprazole Sodium (Protonix Ec Tab) 40 mg PO DAILY [facility] Last Admin: 03/12/17 09:46 Dose: 40 mg Potassium Chloride (K-Dur 20 Meq Er Tab) 20 meq PO DAILY [facility] Last Admin: 03/12/17 09:47 Dose: 20 meq Rosuvastatin Calcium (Crestor) 5 mg PO [facility] Last Admin: 03/11/17 21:56 Dose: 5 mg - Labs Labs: 03/12/17 04:12 03/12/17 08:06 PT 16.5 SECONDS (9.7-12.2) H 03/05/17 09:58 INR 1.4 03/05/17 09:58 APTT 35 SECONDS (21-34) H 03/05/17 09:58 - Constitutional Appears: Toxic, Chronically Ill - Head Exam Head Exam: NORMOCEPHALIC - Eye Exam Eye Exam: PERRL. absent: Scleral icterus - ENT Exam ENT Exam: Mucous Membranes Dry, Normal External Ear Exam - Neck Exam Neck Exam: absent: Lymphadenopathy - Respiratory Exam Respiratory Exam: Decreased Breath Sounds, Rhonchi - Cardiovascular Exam Cardiovascular Exam: Tachycardia, REGULAR RHYTHM, +S1, +S2 - GI/Abdominal Exam GI & Abdominal Exam: Distended, Soft, Tenderness, Organomegaly - Rectal Exam Rectal Exam: Deferred - Exam Exam: NORMAL INSPECTION Assessment and Plan (1) Chronic left ventricular systolic dysfunction Status: Acute (2) Atrial fibrillation with rapid ventricular response Status: Chronic (3) Degenerative disc disease, lumbar Status: Chronic (4) Hypertension Status: Chronic (5) Sleep apnea Status: Chronic (6) ACS (acute coronary syndrome) Status: Acute (7) Abdominal pain Status: Acute (8) Anticoagulated on Coumadin Status: Acute (9) MRSA (methicillin resistant Staphylococcus aureus) infection Status: Acute (10) MRSA bacteremia Status: Acute - Assessment and Plan (Free Text) Assessment: recurrent mrsa bacteremia r/o endocarditis and or splenic abscess consider GI consult surgical re-eval will need 6-8 weeks iv vanco
[2017-03-12] MEDS: Digoxin 125 mcg (0.125 mg) Tab PO SCH (18:04)
--- NOTE | 2017-03-12 18:32 | CP.PCM.PN ---
<Miguel Landaverde - Last Filed: 03/12/17 18:25> Subjective - Date & Time of Evaluation Date of Evaluation: 03/12/17 Time of Evaluation: 10:44 - Subjective Subjective: Pt seen and examined. Pt reports that he is experiencing abdominal pain and nausea. Pt reports that he had a fever overnight and that he vomited. Pt also is complaining of shortness of breath. Pt denies chest pain, palpitations, edema. Objective - Vital Signs/Intake and Output Vital Signs (last 24 hours): Temp Pulse Resp BP Pulse Ox 99.2 F 90 21 127/88 95 03/12/17 16:27 03/12/17 16:27 03/12/17 16:27 03/12/17 18:03 03/12/17 16:27 Intake and Output: 03/12/17 03/12/17 06:59 18:59 Intake Total 940 Output Total 200 Balance 740 - Medications Medications: Current Medications Acetaminophen (Tylenol 325mg Tab) 650 mg PO Q6 PRN PRN Reason: Fever >100.4 F Last Admin: 03/12/17 12:21 Dose: 650 mg Albuterol (Ventolin Hfa 90 Mcg/Actuation (8 G)) 2 puff INH Q6H PRN PRN Reason: Shortness of Breath Carvedilol (Coreg) 12.5 mg PO BID [facility] Last Admin: 03/12/17 18:03 Dose: 12.5 mg Digoxin (Lanoxin) 0.125 mg PO DAILY@1800 [facility] Last Admin: 03/12/17 18:04 Dose: 0.125 mg Diltiazem HCl (Cardizem) 60 mg PO Q6 [facility] Last Admin: 03/12/17 18:04 Dose: 60 mg Enalapril Maleate (Vasotec) 20 mg PO DAILY [facility] Last Admin: 03/12/17 09:46 Dose: 20 mg Fluoxetine HCl (Prozac) 40 mg PO DAILY [facility] Last Admin: 03/12/17 09:47 Dose: 40 mg Furosemide (Lasix) 40 mg PO DAILY [facility] Last Admin: 03/12/17 09:47 Dose: 40 mg Gabapentin (Neurontin) 600 mg PO HS [facility] Last Admin: 03/11/17 22:01 Dose: 600 mg Gabapentin (Neurontin) 300 mg PO QAM [facility] Last Admin: 03/12/17 09:46 Dose: 300 mg Hydralazine HCl (Apresoline) 25 mg PO DAILY [facility] Last Admin: 03/12/17 09:46 Dose: 25 mg Hydrochlorothiazide (Hydrodiuril) 50 mg PO DAILY [facility] Last Admin: 03/12/17 09:46 Dose: 50 mg Vancomycin/Sodium Chloride (Vancocin) 200 mls @ 166.6 mls/hr IVPB Q8H [facility] Last Admin: 03/12/17 18:04 Dose: 166.6 mls/hr Montelukast Sodium (Singulair) 10 mg PO HS [facility] Last Admin: 03/11/17 22:02 Dose: 10 mg Oxycodone/Acetaminophen (Percocet 5/325 Mg Tab) 2 tab PO Q6H PRN PRN Reason: Pain, severe (8-10) Stop: 03/15/17 18:09 Pantoprazole Sodium (Protonix Ec Tab) 40 mg PO DAILY [facility] Last Admin: 03/12/17 09:46 Dose: 40 mg Potassium Chloride (K-Dur 20 Meq Er Tab) 20 meq PO DAILY [facility] Last Admin: 03/12/17 09:47 Dose: 20 meq Rosuvastatin Calcium (Crestor) 5 mg PO HS [facility] Last Admin: 03/11/17 21:56 Dose: 5 mg - Labs Labs: 03/12/17 04:12 03/12/17 08:06 PT 16.5 SECONDS (9.7-12.2) H 03/05/17 09:58 INR 1.4 03/05/17 09:58 APTT 35 SECONDS (21-34) H 03/05/17 09:58 - Constitutional Appears: No Acute Distress, Unkempt, Chronically Ill - Head Exam Head Exam: ATRAUMATIC, NORMOCEPHALIC - Eye Exam Eye Exam: EOMI, PERRL - ENT Exam ENT Exam: Mucous Membranes Moist. absent: Mucous Membranes Dry - Neck Exam Neck Exam: Full ROM - Respiratory Exam Respiratory Exam: Decreased Breath Sounds. absent: Rales, Rhonchi, Wheezes - Cardiovascular Exam Cardiovascular Exam: +S1, +S2. absent: Gallop, Rubs - GI/Abdominal Exam GI & Abdominal Exam: Soft, Tenderness. absent: Hernia, Rebound - Extremities Exam Extremities Exam: Full ROM. absent: Pedal Edema - Neurological Exam Neurological Exam: Alert, Awake, Oriented x3 - Psychiatric Exam Psychiatric exam: Normal Affect, Normal Mood - Skin Skin Exam: Rash, Warm Assessment and Plan - Assessment and Plan (Free Text) Assessment: Sepsis: Tmax of 101.6 WBC - 18.8 Slightly tachycardic Could be splenic abscess vs. enodcarditis as per ID Drainage culture positive for MRSA Continue Vanco 1gm IVPB Q12h Splenic Hematoma s/p drainage on 03/06/17 by IR- 1000ml Drainage culture positive for MRSA consult surgery- Dr. Grimes consult ID- Dr. Sorenson Continue Vanco 1gm IVPB Q12h Repeat CT - modest decrease in size of subcapsular splenic hematoma (please see full report) IR, Dr. Shankar, consulted for PICC placement for correction abx HTN consult cardio- Dr. Morgan Hydralazine 25mg PO Daily HCTZ 50mg PO Daily Vasotec 20mg PO Daily CAD s/p 4 stents consult cardio- Dr. Morgan Crestor 5mg PO HS CHF consult cardio- Dr. Morgan Per Dr. Morgan, patient refusing AICD. Digoxin 0.125mg PO HS Afib consult cardio- Dr. Morgan held Coumadin secondary to splenic hematoma Continue Cardizem 60mg PO Q6h JEIMY Continue Coreg 12.5mg PO BID Continue Xanax 1mg PO QID Bipolar/Depression Continue Prozac 40mg PO Daily Continue COPD consult pulm- Dr. Tom Lalatol 2 puff Q6h PRN ARLENE consult pulm- Dr. Santos Herniated Discs Percocet 2 tab 5/325 Q6h PRN Dilaudid 1mg IVP Q8h PRN Neurontin 600mg PO HS Neurontin 300mg PO qAM Prophylactic measure Protonix 40mg PO Daily contraindication for anticoagulation- hemorrhage <Roque Ocampo Jr. - Last Filed: 03/13/17 16:58> Objective - Vital Signs/Intake and Output Vital Signs (last 24 hours): Temp Pulse Resp BP Pulse Ox 97.6 F 74 20 102/54 L 97 03/13/17 08:11 03/13/17 16:40 03/13/17 08:11 03/13/17 13:01 03/13/17 08:11 Intake and Output: 03/13/17 03/13/17 06:59 18:59 Intake Total 680 500 Balance 680 500 - Medications Medications: Current Medications Acetaminophen (Tylenol 325mg Tab) 650 mg PO Q6 PRN PRN Reason: Fever >100.4 F Last Admin: 03/12/17 12:21 Dose: 650 mg Albuterol (Ventolin Hfa 90 Mcg/Actuation (8 G)) 2 puff INH Q6H PRN PRN Reason: Shortness of Breath Alprazolam (Xanax) 1 mg PO QID PRN PRN Reason: Anxiety Last Admin: 03/13/17 13:31 Dose: 1 mg Carvedilol (Coreg) 12.5 mg PO BID [facility] Last Admin: 03/13/17 10:21 Dose: 12.5 mg Digoxin (Lanoxin) 0.125 mg PO DAILY@1800 [facility] Last Admin: 03/12/17 18:04 Dose: 0.125 mg Diltiazem HCl (Cardizem) 60 mg PO Q6 [facility] Last Admin: 03/13/17 13:00 Dose: 60 mg Enalapril Maleate (Vasotec) 20 mg PO DAILY [facility] Last Admin: 03/13/17 10:22 Dose: 20 mg Fluoxetine HCl (Prozac) 40 mg PO DAILY [facility] Last Admin: 03/13/17 10:23 Dose: 40 mg Furosemide (Lasix) 40 mg PO DAILY [facility] Last Admin: 03/13/17 10:21 Dose: 40 mg Gabapentin (Neurontin) 600 mg PO HS [facility] Last Admin: 03/12/17 21:41 Dose: 600 mg Gabapentin (Neurontin) 300 mg PO QAM [facility] Last Admin: 03/13/17 10:21 Dose: 300 mg Hydralazine HCl (Apresoline) 25 mg PO DAILY [facility] Last Admin: 03/13/17 10:22 Dose: 25 mg Hydrochlorothiazide (Hydrodiuril) 50 mg PO DAILY [facility] Last Admin: 03/13/17 10:21 Dose: 50 mg Vancomycin/Sodium Chloride (Vancocin) 200 mls @ 166.6 mls/hr IVPB Q8H [facility] Last Admin: 03/13/17 12:50 Dose: Not Given Montelukast Sodium (Singulair) 10 mg PO HS [facility] Last Admin: 03/12/17 21:41 Dose: 10 mg Oxycodone/Acetaminophen (Percocet 5/325 Mg Tab) 2 tab PO Q6H PRN PRN Reason: Pain, severe (8-10) Stop: 03/15/17 18:09 Last Admin: 03/13/17 10:23 Dose: 2 tab Pantoprazole Sodium (Protonix Ec Tab) 40 mg PO DAILY [facility] Last Admin: 03/13/17 10:21 Dose: 40 mg Potassium Chloride (K-Dur 20 Meq Er Tab) 20 meq PO DAILY [facility] Last Admin: 03/13/17 10:22 Dose: Not Given Rosuvastatin Calcium (Crestor) 5 mg PO [facility] Last Admin: 03/12/17 21:41 Dose: 5 mg - Labs Labs: 03/13/17 11:24 03/13/17 11:24 PT 16.5 SECONDS (9.7-12.2) H 03/05/17 09:58 INR 1.4 03/05/17 09:58 APTT 35 SECONDS (21-34) H 03/05/17 09:58 Attending/Attestation - Attestation I have personally seen and examined this patient.: Yes I have fully participated in the care of the patient.: Yes I have reviewed all pertinent clinical information, including history, physical exam and plan: Yes Notes (Text): 03/13/17 16:58 Patient seen and examined. Reviewed resident note and agree with findings and plan of care
--- NOTE | 2017-03-12 19:08 | PN ---
DATE: 03/12/2017 LOCATION: Room 562. This is a 46-year-old male with recent admission for rapid atrial fibrillation and precordial chest p ain and is currently being followed hemodynamically and is now being followed closely for metabolic m anagement. He is also undergoing hemodynamic monitoring at this time as noted. His latest chemistry showed a BUN of 13, sodium 132, potassium 4.2, chloride 91, CO2 of 33, glucose 104, and creatinine 0 .8. His calcium level is 7.9, albumin level of 3.1 and corrected calcium of 8.8 mg/dL. So at this t jennifer, we will continue the present medical and cardiac management as noted and we will obtain serial c hemistries and supplement accordingly as needed. We will follow. Yaquelin Cantu MD cc: [id number] TT: 03/12/2017 19:07:29 Confirmation # [id number] Dictation # [id number] [email or web address]
[2017-03-12] MEDS: Oxycodone/Acetaminophen 5/325 mg Tab PO PRN (20:19)
--- NOTE | 2017-03-12 21:23 | CP.PCM.PN ---
Subjective - Date & Time of Evaluation Date of Evaluation: 03/12/17 Time of Evaluation: 13:00 - Subjective Subjective: patient has no current chest pain. complains of abdominal pain. Objective - Vital Signs/Intake and Output Vital Signs (last 24 hours): Temp Pulse Resp BP Pulse Ox 99.2 F 90 21 127/88 95 03/12/17 16:27 03/12/17 16:27 03/12/17 16:27 03/12/17 18:03 03/12/17 16:27 - Medications Medications: Current Medications Acetaminophen (Tylenol 325mg Tab) 650 mg PO Q6 PRN PRN Reason: Fever >100.4 F Last Admin: 03/12/17 12:21 Dose: 650 mg Albuterol (Ventolin Hfa 90 Mcg/Actuation (8 G)) 2 puff INH Q6H PRN PRN Reason: Shortness of Breath Carvedilol (Coreg) 12.5 mg PO BID [facility] Last Admin: 03/12/17 18:03 Dose: 12.5 mg Digoxin (Lanoxin) 0.125 mg PO DAILY@1800 [facility] Last Admin: 03/12/17 18:04 Dose: 0.125 mg Diltiazem HCl (Cardizem) 60 mg PO Q6 [facility] Last Admin: 03/12/17 18:04 Dose: 60 mg Enalapril Maleate (Vasotec) 20 mg PO DAILY [facility] Last Admin: 03/12/17 09:46 Dose: 20 mg Fluoxetine HCl (Prozac) 40 mg PO DAILY [facility] Last Admin: 03/12/17 09:47 Dose: 40 mg Furosemide (Lasix) 40 mg PO DAILY [facility] Last Admin: 03/12/17 09:47 Dose: 40 mg Gabapentin (Neurontin) 600 mg PO HS [facility] Last Admin: 03/11/17 22:01 Dose: 600 mg Gabapentin (Neurontin) 300 mg PO QAM [facility] Last Admin: 03/12/17 09:46 Dose: 300 mg Hydralazine HCl (Apresoline) 25 mg PO DAILY [facility] Last Admin: 03/12/17 09:46 Dose: 25 mg Hydrochlorothiazide (Hydrodiuril) 50 mg PO DAILY [facility] Last Admin: 03/12/17 09:46 Dose: 50 mg Vancomycin/Sodium Chloride (Vancocin) 200 mls @ 166.6 mls/hr IVPB Q8H [facility] Last Admin: 03/12/17 18:04 Dose: 166.6 mls/hr Montelukast Sodium (Singulair) 10 mg PO HS [facility] Last Admin: 03/11/17 22:02 Dose: 10 mg Oxycodone/Acetaminophen (Percocet 5/325 Mg Tab) 2 tab PO Q6H PRN PRN Reason: Pain, severe (8-10) Stop: 03/15/17 18:09 Last Admin: 03/12/17 20:19 Dose: 2 tab Pantoprazole Sodium (Protonix Ec Tab) 40 mg PO DAILY [facility] Last Admin: 03/12/17 09:46 Dose: 40 mg Potassium Chloride (K-Dur 20 Meq Er Tab) 20 meq PO DAILY [facility] Last Admin: 03/12/17 09:47 Dose: 20 meq Rosuvastatin Calcium (Crestor) 5 mg PO [facility] Last Admin: 03/11/17 21:56 Dose: 5 mg - Labs Labs: 03/12/17 04:12 03/12/17 08:06 PT 16.5 SECONDS (9.7-12.2) H 03/05/17 09:58 INR 1.4 03/05/17 09:58 APTT 35 SECONDS (21-34) H 03/05/17 09:58 - Constitutional Appears: Non-toxic - Head Exam Head Exam: NORMAL INSPECTION - Eye Exam Eye Exam: Normal appearance - ENT Exam ENT Exam: Mucous Membranes Moist - Neck Exam Neck Exam: Full ROM - Respiratory Exam Respiratory Exam: Decreased Breath Sounds - Cardiovascular Exam Cardiovascular Exam: Irregular Rhythm - GI/Abdominal Exam GI & Abdominal Exam: Normal Bowel Sounds - Rectal Exam Rectal Exam: Deferred - Extremities Exam Extremities Exam: absent: Pedal Edema - Back Exam Back Exam: NORMAL INSPECTION - Neurological Exam Neurological Exam: Alert - Psychiatric Exam Psychiatric exam: Normal Affect - Skin Skin Exam: Normal Color Assessment and Plan (1) Spleen hematoma Assessment & Plan: surgery following Status: Acute (2) Atrial fibrillation with rapid ventricular response Assessment & Plan: controlled Status: Chronic (3) Hypertension Status: Chronic (4) CAD (coronary artery disease) Status: Chronic (5) Chronic left ventricular systolic dysfunction Status: Acute
[2017-03-12 21:38] VITALS: RESP 20
[2017-03-13] MEDS: Vancomycin 1 gm/NS 200 ml 200 ML IVPB SCH ×3 (02:14→19:00)
[2017-03-13] MEDS: Oxycodone/Acetaminophen 5/325 mg Tab PO PRN ×2 (03:41→10:23)
[2017-03-13 08:12] VITALS: TEMP 97.6; O2SAT 97
--- NOTE | 2017-03-13 08:44 | CARD ---
APPROVED REPORT EXAM: Two-dimensional and M-mode echocardiogram with Doppler and color Doppler. INDICATION Infection : Rule out subacute bacterial endocarditis RISK FACTORS Obesity Mitral Valve E/A ratio0.0 TDI E/Lateral E'0.0E/Medial E'0.0 LEFT VENTRICLE The Left Ventricle is mildly dilated. There is normal left ventricular wall thickness. LV SYSTOLIC FUNCTION IS SEVERELY REDUCED SEVERE GLOBAL HYPOKINESIS OF THE LV No left ventricle thrombus noted on this study. There is no ventricular septal defect visualized. There is no left ventricular aneurysm. There is no mass noted in the left ventricle. RIGHT VENTRICLE The right ventricle is normal size. There is normal right ventricular wall thickness. The right ventricular systolic function is normal. ATRIA The left atrium is mildly dilated. The right atrium size is normal. The interatrial septum is intact with no evidence for an atrial septal defect. AORTIC VALVE The aortic valve is normal in structure. No aortic regurgitation is present. There is no aortic valvular stenosis. There is no aortic valvular vegetation. MITRAL VALVE The mitral valve is normal in structure. There is no evidence of mitral valve prolapse. There is no mitral valve stenosis. Mitral regurgitation is mild. TRICUSPID VALVE The tricuspid valve is normal in structure. There is mild tricuspid regurgitation. There is no tricuspid valve prolapse or vegetation. There is no tricuspid valve stenosis. PULMONIC VALVE The pulmonary valve is normal in structure. No vegetation There is no pulmonic valvular regurgitation. There is no pulmonic valvular stenosis. GREAT VESSELS The aortic root is normal in size. The ascending aorta is normal in size. The pulmonary artery is normal. PERICARDIAL EFFUSION There is no pericardial effusion. <Conclusion> LV SYSTOLIC FUNCTION IS SEVERELY REDUCED The Left Ventricle is mildly dilated. SEVERE GLOBAL HYPOKINESIS OF THE LV There is no mass noted in the left ventricle. The left atrium is mildly dilated. There is no mass or thrombus in the LA or MILO. MILO velocities are decreased. The right atrium size is normal. The interatrial septum is intact with no evidence for an atrial septal defect. There is no aortic valvular vegetation. Mitral regurgitation is mild. No evidence of MV vegetation The tricuspid valve is normal in structure. There is mild tricuspid regurgitation. There is no tricuspid valve prolapse or vegetation. The pulmonary valve is normal in structure. No vegetation NEGATIVE STUDY FOR ENDOCARDITIS. ALL VALVES CLEARLY VISUALIZED. NO THROMBUS NOTED. PT IN AFIB AT TIME OF STUDY
[2017-03-13] MEDS: Pantoprazole 40 mg EC Tab PO SCH (10:21)
[2017-03-13] MEDS: Potassium Chloride 20 mEq ER Tab PO SCH (10:22)
[2017-03-13 11:35] LABS: BASO % 0.1 % (0.0-2.0); EOS # 0.1 K/uL (0.0-0.7); EOS % 0.6 % (0.0-4.0); HEMATOCRIT 33.7 % (35.0-51.0); LYMPH # 0.8 K/uL (1.0-4.3); LYMPH % 4.1 % (20.0-40.0); MEAN CELL VOLUME 82.5 fL (80.0-94.0); MEAN CORPUSCULAR HEMOGLOBIN 26.1 pg (27.0-31.0); MEAN CORPUSCULAR HGB CONC 31.6 g/dL (33.0-37.0); MEAN PLATELET VOLUME 7.8 fL (7.2-11.7); MONO # 1.7 K/uL (0.0-0.8); MONO % 8.4 % (0.0-10.0); PLATELET COUNT 301 K/uL (130-400); RED CELL DISTRIBUTION WIDTH 15.9 % (11.5-14.5); WHITE BLOOD COUNT 19.8 K/uL (4.8-10.8)
[2017-03-13 12:04] LABS: NEUTROPHIL 87 % (50-75); TOTAL CELLS COUNTED 100
[2017-03-13 12:09] LABS: CHLORIDE 88 mmol/L (98-107); POTASSIUM 4.7 mmol/L (3.6-5.2); SODIUM 130 mmol/L (132-148)
[2017-03-13 12:11] LABS: BILIRUBIN,TOTAL 0.8 mg/dL (0.2-1.3); CARBON DIOXIDE 35 mmol/L (22-30); GFR AFRICAN-AMERICAN > 60
[2017-03-13 12:12] LABS: ALB/GLOB RATIO 0.6 (1.0-2.1); ALKALINE PHOSPHATASE 94 U/L (38-126); ALT/SGPT 11 U/L (21-72); AST/SGOT 34 U/L (17-59); BLOOD UREA NITROGEN 18 mg/dL (9-20); CALCIUM 8.3 mg/dl (8.6-10.4); GLUCOSE,RANDOM 164 mg/dL (75-110); TOTAL PROTEIN 8.6 g/dL (6.3-8.3)
--- NOTE | 2017-03-13 12:26 | PN ---
DATE: 03/13/2017 ROOM: 360 This is a 46-year-old male with rapid atrial fibrillation and also a traumatic injury related splenic hematoma, and is now being followed closely for metabolic management. His latest chemistries showed a BUN of 13, sodium 132, potassium 4.2, chloride 91, CO2 33, glucose 10 4 and creatinine 0.8. His calcium level is 7.9 with an albumin level of 3.1 and a corrected calcium of 8.8 mg/dL. So at this time, we will continue and concur with the present medical management as ordered and we wi ll obtain serial chemistries and supplement accordingly as needed. We will follow. Yaquelin Cantu MD cc: [id number] TT: 03/13/2017 12:26:43 Confirmation # [id number] Dictation # [id number]
[2017-03-13 13:01] VITALS: PULSE 74
--- NOTE | 2017-03-13 16:04 | RAD ---
HISTORY: verify right PICC COMPARISON: Comparison made with prior chest radiograph 03/05/2017. FINDINGS: LUNGS: In situ right-sided PICC line with tip in the SVC/RA junction Poor inspiration with low lung volumes, crowded bronchovascular markings and mild bibasilar atelectasis. Note that the possibility of underlying pulmonary vascular congestion or bilateral infiltrates cannot be excluded. PLEURA: No significant pleural effusion identified, no pneumothorax apparent. CARDIOVASCULAR: Marked cardiomegaly. OSSEOUS STRUCTURES: No significant abnormalities. VISUALIZED UPPER ABDOMEN: Normal. OTHER FINDINGS: None. IMPRESSION: Poor inspiration with low lung volumes, crowded bronchovascular markings and mild bibasilar atelectasis. Note that the possibility of underlying pulmonary vascular congestion or bilateral infiltrates cannot be excluded. Right-sided PICC line as above.
[2017-03-13 18:27] VITALS: BP 102/64
[2017-03-13 18:28] VITALS: PULSE 76
[2017-03-13] MEDS: Digoxin 125 mcg (0.125 mg) Tab PO SCH (18:28)
--- NOTE | 2017-03-13 18:53 | CP.PCM.PN ---
Subjective - Date & Time of Evaluation Date of Evaluation: 03/13/17 Time of Evaluation: 09:00 - Subjective Subjective: still with fever and abd pain consider PILY/ Ceretec scan surgery should follow Objective - Vital Signs/Intake and Output Vital Signs (last 24 hours): Temp Pulse Resp BP Pulse Ox 97.6 F 74 20 102/64 97 03/13/17 08:11 03/13/17 16:40 03/13/17 08:11 03/13/17 18:26 03/13/17 08:11 Intake and Output: 03/13/17 03/13/17 06:59 18:59 Intake Total 680 500 Balance 680 500 - Medications Medications: Current Medications Acetaminophen (Tylenol 325mg Tab) 650 mg PO Q6 PRN PRN Reason: Fever >100.4 F Last Admin: 03/12/17 12:21 Dose: 650 mg Albuterol (Ventolin Hfa 90 Mcg/Actuation (8 G)) 2 puff INH Q6H PRN PRN Reason: Shortness of Breath Alprazolam (Xanax) 1 mg PO QID PRN PRN Reason: Anxiety Last Admin: 03/13/17 13:31 Dose: 1 mg Carvedilol (Coreg) 12.5 mg PO BID [facility] Last Admin: 03/13/17 18:26 Dose: 12.5 mg Digoxin (Lanoxin) 0.125 mg PO DAILY@1800 [facility] Last Admin: 03/13/17 18:28 Dose: 0.125 mg Diltiazem HCl (Cardizem) 60 mg PO Q6 [facility] Last Admin: 03/13/17 18:26 Dose: 60 mg Enalapril Maleate (Vasotec) 20 mg PO DAILY [facility] Last Admin: 03/13/17 10:22 Dose: 20 mg Fluoxetine HCl (Prozac) 40 mg PO DAILY [facility] Last Admin: 03/13/17 10:23 Dose: 40 mg Furosemide (Lasix) 40 mg PO DAILY [facility] Last Admin: 03/13/17 10:21 Dose: 40 mg Gabapentin (Neurontin) 600 mg PO HS [facility] Last Admin: 03/12/17 21:41 Dose: 600 mg Gabapentin (Neurontin) 300 mg PO QAM [facility] Last Admin: 03/13/17 10:21 Dose: 300 mg Hydralazine HCl (Apresoline) 25 mg PO DAILY [facility] Last Admin: 03/13/17 10:22 Dose: 25 mg Hydrochlorothiazide (Hydrodiuril) 50 mg PO DAILY [facility] Last Admin: 03/13/17 10:21 Dose: 50 mg Vancomycin/Sodium Chloride (Vancocin) 200 mls @ 166.6 mls/hr IVPB Q8H [facility] Last Admin: 03/13/17 12:50 Dose: Not Given Montelukast Sodium (Singulair) 10 mg PO [facility] Last Admin: 03/12/17 21:41 Dose: 10 mg Oxycodone/Acetaminophen (Percocet 5/325 Mg Tab) 2 tab PO Q6H PRN PRN Reason: Pain, severe (8-10) Stop: 03/15/17 18:09 Last Admin: 03/13/17 10:23 Dose: 2 tab Pantoprazole Sodium (Protonix Ec Tab) 40 mg PO DAILY [facility] Last Admin: 03/13/17 10:21 Dose: 40 mg Potassium Chloride (K-Dur 20 Meq Er Tab) 20 meq PO DAILY [facility] Last Admin: 03/13/17 10:22 Dose: Not Given Rosuvastatin Calcium (Crestor) 5 mg PO [facility] Last Admin: 03/12/17 21:41 Dose: 5 mg - Labs Labs: 03/13/17 11:24 03/13/17 11:24 PT 16.5 SECONDS (9.7-12.2) H 03/05/17 09:58 INR 1.4 03/05/17 09:58 APTT 35 SECONDS (21-34) H 03/05/17 09:58 - Constitutional Appears: Chronically Ill - Head Exam Head Exam: NORMOCEPHALIC - Eye Exam Eye Exam: absent: Scleral icterus - ENT Exam ENT Exam: Mucous Membranes Dry - Neck Exam Neck Exam: absent: Lymphadenopathy - Respiratory Exam Respiratory Exam: Decreased Breath Sounds - Cardiovascular Exam Cardiovascular Exam: REGULAR RHYTHM - GI/Abdominal Exam GI & Abdominal Exam: Distended, Tenderness Assessment and Plan (1) Chronic left ventricular systolic dysfunction Status: Acute (2) Atrial fibrillation with rapid ventricular response Status: Chronic (3) Degenerative disc disease, lumbar Status: Chronic (4) Hypertension Status: Chronic (5) Sleep apnea Status: Chronic (6) ACS (acute coronary syndrome) Status: Acute (7) Abdominal pain Status: Acute (8) Anticoagulated on Coumadin Status: Acute (9) MRSA (methicillin resistant Staphylococcus aureus) infection Status: Acute (10) MRSA bacteremia Status: Acute
--- NOTE | 2017-03-13 23:54 | CP.PCM.DIS ---
Provider - Provider Date of Admission: 03/05/17 14:00 Attending physician: Roque Ocampo Jr, MD Time Spent in preparation of Discharge (in minutes): 47 Hospital Course - Lab Results Lab Results: Micro Results 03/12/17 15:00 Blood Blood Culture - Preliminary NO GROWTH AFTER 24 HOURS 03/12/17 15:30 Blood Blood Culture - Preliminary NO GROWTH AFTER 24 HOURS 03/05/17 17:00 Blood Blood Culture - Final NO GROWTH AFTER 5 DAYS 03/05/17 17:00 Blood Gram Stain - Final TEST NOT PERFORMED 03/05/17 17:00 Blood Blood Culture - Final NO GROWTH AFTER 5 DAYS 03/05/17 17:00 Blood Gram Stain - Final TEST NOT PERFORMED 03/08/17 Unknown Nose MRSA Culture - Final MRSA DETECTED 03/06/17 10:00 Other: Please Indicate Gram Stain - Final 03/06/17 10:00 Other: Please Indicate Body Fluid Culture - Final Methicillin Resistant S Aureus 03/05/17 22:00 Urine,Clean Catch Urine Culture - Final No Growth (<1,000 CFU/ML) Most Recent Lab Values WBC 19.8 K/uL (4.8-10.8) H 03/13/17 11:24 RBC 4.08 Mil/uL (4.40-5.90) L 03/13/17 11:24 Hgb 10.7 g/dL (12.0-18.0) L 03/13/17 11:24 Hct 33.7 % (35.0-51.0) L 03/13/17 11:24 MCV 82.5 fL (80.0-94.0) 03/13/17 11:24 MCH 26.1 pg (27.0-31.0) L 03/13/17 11:24 MCHC 31.6 g/dL (33.0-37.0) L 03/13/17 11:24 RDW 15.9 % (11.5-14.5) H 03/13/17 11:24 Plt Count 301 K/uL (130-400) 03/13/17 11:24 MPV 7.8 fL (7.2-11.7) 03/13/17 11:24 Neut % (Auto) 86.8 % (50.0-75.0) H 03/13/17 11:24 Lymph % (Auto) 4.1 % (20.0-40.0) L 03/13/17 11:24 [place] % (Auto) 8.4 % (0.0-10.0) 03/13/17 11:24 Eos % (Auto) 0.6 % (0.0-4.0) 03/13/17 11:24 Baso % (Auto) 0.1 % (0.0-2.0) 03/13/17 11:24 Neut # 17.2 K/uL (1.8-7.0) H 03/13/17 11:24 Lymph # 0.8 K/uL (1.0-4.3) L 03/13/17 11:24 [place] # 1.7 K/uL (0.0-0.8) H 03/13/17 11:24 Eos # 0.1 K/uL (0.0-0.7) 03/13/17 11:24 Baso # 0.0 K/uL (0.0-0.2) 03/13/17 11:24 Neutrophils % (Manual) 87 % (50-75) H 03/13/17 11:24 Band Neutrophils % 2 % (0-2) 03/12/17 04:12 Lymphocytes % (Manual) 5 % (20-40) L 03/13/17 11:24 Monocytes % (Manual) 8 % (0-10) 03/13/17 11:24 Eosinophils % (Manual) 1 % (0-4) 03/12/17 04:12 Basophils % (Manual) 1 % (0-2) 03/11/17 07:58 Toxic Granulation Present 03/10/17 07:36 Platelet Estimate Normal (NORMAL) 03/13/17 11:24 Large Platelets Present 03/06/17 06:31 Polychromasia Slight 03/06/17 06:31 Hypochromasia (manual) Slight 03/13/17 11:24 Poikilocytosis (manual Slight 03/10/17 07:36 Anisocytosis (manual) Slight 03/10/17 07:36 Microcytosis (manual) Slight 03/06/17 06:31 Target Cells Slight 03/06/17 06:31 Helmet Cells Slight 03/06/17 06:31 PT 16.5 SECONDS (9.7-12.2) H 03/05/17 09:58 INR 1.4 03/05/17 09:58 APTT 35 SECONDS (21-34) H 03/05/17 09:58 pO2 21 mm/Hg (30-55) L 03/12/17 15:55 VBG pH 7.37 (7.32-7.43) 03/12/17 15:55 VBG pCO2 63 mmHg (40-60) H 03/12/17 15:55 VBG HCO3 30.0 mmol/L 03/12/17 15:55 VBG Total CO2 38.3 mmol/L (22-28) H 03/12/17 15:55 VBG O2 Sat (Calc) 38.9 % (40-65) L 03/12/17 15:55 VBG Base Excess 8.7 mmol/L (0.0-2.0) H 03/12/17 15:55 VBG Potassium 4.5 mmol/L (3.6-5.2) 03/12/17 15:55 Sodium 130.0 mmol/l (132-148) L 03/12/17 15:55 Chloride 95.0 mmol/L (98-107) L 03/12/17 15:55 Glucose 105 mg/dl (75-110) 03/12/17 15:55 Lactate 1.2 mmol/L (0.7-2.1) 03/12/17 15:55 Sodium 130 mmol/L (132-148) L 03/13/17 11:24 Potassium 4.7 mmol/L (3.6-5.2) 03/13/17 11:24 Chloride 88 mmol/L (98-107) L 03/13/17 11:24 Carbon Dioxide 35 mmol/L (22-30) H 03/13/17 11:24 Anion Gap 12 (10-20) 03/13/17 11:24 BUN 18 mg/dL (9-20) 03/13/17 11:24 Creatinine 1.1 MG/DL (0.8-1.5) 03/13/17 11:24 Est GFR ( Amer) > 60 03/13/17 11:24 Est GFR (Non-Af Amer) > 60 03/13/17 11:24 Random Glucose 164 mg/dL (75-110) H 03/13/17 11:24 Hemoglobin A1c 7.4 % (4.2-6.5) H 03/08/17 07:15 Calcium 8.3 mg/dl (8.6-10.4) L 03/13/17 11:24 Phosphorus 3.8 mg/dL (2.5-4.5) 03/08/17 07:15 Magnesium 2.0 mg/dL (1.6-2.3) 03/08/17 07:15 Total Bilirubin 0.8 mg/dL (0.2-1.3) 03/13/17 11:24 AST 34 U/L (17-59) 03/13/17 11:24 ALT 11 U/L (21-72) L 03/13/17 11:24 Alkaline Phosphatase 94 U/L (38-126) 03/13/17 11:24 Troponin I 0.0340 ng/mL (0.00-0.120) 03/05/17 09:58 NT-Pro-B Natriuret Pep 5560 pg/mL (0-450) H 03/05/17 09:58 Total Protein 8.6 g/dL (6.3-8.3) H 03/13/17 11:24 Albumin 3.3 g/dL (3.5-5.0) L 03/13/17 11:24 Globulin 5.2 gm/dL (2.2-3.9) H 03/13/17 11:24 Albumin/Globulin Ratio 0.6 (1.0-2.1) L 03/13/17 11:24 25-OH Vitamin D Total < 12.8 NG/ML (30.0-100.0) L 03/08/17 07:15 Procalcitonin 0.22 NG/ML (0.19-0.49) 03/12/17 16:11 PTH Intact Whole Molec 54 pg/mL (14-64) 03/08/17 07:15 Cortisol AM Sample 5.6 ug/dL (4.46-22.7) 03/08/17 07:15 Venous Blood Potassium 4.5 mmol/L (3.6-5.2) 03/12/17 15:55 Urine Color Colorless (YELLOW) 03/05/17 12:11 Urine Clarity Clear (Clear) 03/05/17 12:11 Urine pH 7.0 (5.0-8.0) 03/05/17 12:11 Ur Specific [place] 1.004 (1.003-1.030) 03/05/17 12:11 Urine Protein Negative mg/dL (NEGATIVE) 03/05/17 12:11 Urine Glucose (UA) Normal mg/dL (Normal) 03/05/17 12:11 Urine Ketones Negative mg/dL (NEGATIVE) 03/05/17 12:11 Urine Blood Negative (NEGATIVE) 03/05/17 12:11 Urine Nitrate Negative (NEGATIVE) 03/05/17 12:11 Urine Bilirubin Negative (NEGATIVE) 03/05/17 12:11 Urine Urobilinogen Normal mg/dL (0.2-1.0) 03/05/17 12:11 Ur Leukocyte Esterase Neg Nancie/uL (Negative) 03/05/17 12:11 Vancomycin Trough 14.7 ug/mL (5.0-10.0) H 03/13/17 11:24 Random Vancomycin 20.53 ug/mL 03/12/17 08:06 Digoxin 0.5 ng/mL (0.8-2.0) L 03/05/17 09:58 Urine Opiates Screen Positive (NEGATIVE) 03/06/17 10:31 Urine Methadone Screen Negative (NEGATIVE) 03/06/17 10:31 Ur Barbiturates Screen Negative (NEGATIVE) 03/06/17 10:31 Ur Phencyclidine Scrn Negative (NEGATIVE) 03/06/17 10:31 Ur Amphetamines Screen Negative (NEGATIVE) 03/06/17 10:31 U Benzodiazepines Scrn Positive (NEGATIVE) 03/06/17 10:31 U Oth Cocaine Metabols Positive (NEGATIVE) 03/06/17 10:31 U Cannabinoids Screen Negative (NEGATIVE) 03/06/17 10:31 Blood Type O POSITIVE 03/05/17 10:14 Antibody Screen Negative 03/05/17 10:14 - Hospital Course Hospital Course: HPI: Pt is 46M w a PMhx of HTN, CAD, CHF, Afib , COPD, ARLENE, Bipolar disorder, Chronic back pain secondary to herniated discs who presented with left upper quadrant abdominal pain radiating to the back.. Patient presented to ED w/ rapid Afib. Pt signed out AMA 02/27, patient states the reason was because he was having problems at home. Hospital Course: Abd/Pelvis CT revealed a large subscapular splenic hematoma (please see full report). Pt was febrile, tachycardic, and exhibited leukocytosis. ID, Dr. Sorenson , was consulted. IR, Dr. Shankar, was consulted. Pt received IR drainage of hematoma and cultures were sent. Cultures were positive for MRSA. Pt was started on IV vancomycin. Surgery, Dr. Senior, was consulted. Repeat CT showed a modest decrease in size of the subscapular hematoma (please see full report). Cardiology, Dr. Morgan, was consulted. As per Dr. Morgan, pt refused AICD. Coumadin was held due to the hematoma. Pt received a PICC line for lobsterman antibiotics and was discharged to subacute rehab for lobsterman antibiotics. Pt was aggressive and hostile towards staff. Discharge Exam - Head Exam Head Exam: NORMOCEPHALIC - Eye Exam Eye Exam: EOMI, PERRL - ENT Exam ENT Exam: Mucous Membranes Moist - Neck Exam Neck exam: Full Rom - Respiratory Exam Respiratory Exam: Clear to PA & Lateral. absent: Rales, Rhonchi, Wheezes - Cardiovascular Exam Cardiovascular Exam: +S1, +S2. absent: Gallop, Rubs - GI/Abdominal Exam GI & Abdominal Exam: Distended, Soft, Tenderness. absent: Guarding - Extremities Exam Extremities exam: full ROM - Neurological Exam Neurological exam: Alert, Oriented x3 - Psychiatric Exam Psychiatric exam: Agitated - Skin Skin Exam: Normal Color, Rash, Warm Discharge Plan - Follow Up Plan Condition: SERIOUS Disposition: REHAB FACILITY/REHAB UNIT Instructions: Enalapril (By mouth), Furosemide (By mouth), Warfarin (By mouth) , Heart Failure (DC), Heart Failure (GEN), Atrial Fibrillation (DC), Atrial Fibrillation (GEN), Asthma (DC), Asthma (GEN), MRSA (Methicillin Resistant Staphylococcus Aureus) (DC), MRSA (Methicillin Resistant Staphylococcus Aureus) (GEN), Depression (DC), Depression (GEN), COPD (Chronic Obstructive Pulmonary Disease) (DC), COPD (Chronic Obstructive Pulmonary Disease) (GEN), Pneumonia (DC ), Pneumonia (GEN) Clinical Quality Measures - CQM - VTE Did patient receive overlap therapy during hosptialization?: Yes If yes, what was given to the patient?: SCDs - CQM - Heart Failure Ejection Fraction: Less Than 40 % SHONDA Inhibitor Prescribed: Yes Beta-Yonis Prescribed: Carvedilol Angiotensin II Receptor Yonis Prescribed: Yes AnticoagulationTherapy for Atrial Fibrillation/Atrialflutter: No Contraindication/Reason for not providing: splenic hematoma Aldosterone Antagonist Prescribed: No Contraindication/Reason for not providing: On SHONDA-I Hydralazine Nitrate Prescribed: No Contraindication/Reason for not providing: on Shonda inhibitor Implantable Cardioverter Defibrillator Therapy: No Contraindication/Reason for not providing: Pt refused Cardiac Resynchronization Therapy Prescribed: No Contraindication/Reason for not providing: Pt refusedd
--- NOTE | 2017-03-19 02:29 | PCM.HF ---
Heart Failure Core Measure - Heart Failure Ejection Fraction: Less Than 40 % SHONDA Inhibitor Prescribed: Yes Beta-Yonis Prescribed: Carvedilol Angiotensin II Receptor Yonis Prescribed: No Contraindication/Reason for not providing: PT on SHONDA-Inhibitor AnticoagulationTherapy for Atrial Fibrillation/Atrialflutter: Yes Aldosterone Antagonist Prescribed: No Contraindication/Reason for not providing: on Hydralazine
--- NOTE | 2017-03-22 18:01 | PCM.HF ---
Heart Failure Core Measure - Heart Failure Left Ventricular Function to be assessed after discharge: Yes SHONDA Inhibitor Prescribed: Yes Beta-Yonis Prescribed: Carvedilol Angiotensin II Receptor Yonis Prescribed: No Contraindication/Reason for not providing: Pt on SHONDA inhibitor AnticoagulationTherapy for Atrial Fibrillation/Atrialflutter: Yes Aldosterone Antagonist Prescribed: No Contraindication/Reason for not providing: on hydralazine Hydralazine Nitrate Prescribed: Yes Implantable Cardioverter Defibrillator Therapy: No Contraindication/Reason for not providing: As per Cardio Cardiac Resynchronization Therapy Prescribed: No Contraindication/Reason for not providing: As per cardio - Follow up Will be discharged to: Home Follow Up Date (must be within 7 days from discharge): 03/20/17 Follow Up Time: 09:00
== END 2017-03-13 22:00 | DRG 814 ==
LOC: C.ER 09:21 → C.9E 14:00 → C.6T 14:39 → C.9I 23:33 → C.5T 03-08 03:06 → C.3T 03-12 21:05
PROVIDERS: ADMIT Internal Medicine; ATTEND Internal Medicine
PROC: 079P3ZZ Drainage of Spleen, Percutaneous Approach (ICD-10-PCS; principal; 2017-03-06)
DX: D73.5 Infarction of spleen (principal); I50.23 Acute on chronic systolic (congestive) heart failure; A41.02 Sepsis due to Methicillin resistant Staphylococcus aureus; I42.0 Dilated cardiomyopathy; I25.110 Atherosclerotic heart disease of native coronary artery with unstable angina pectoris; J98.11 Atelectasis; D73.3 Abscess of spleen; I11.0 Hypertensive heart disease with heart failure; Z79.01 Long term (current) use of anticoagulants; J43.9 Emphysema, unspecified; I48.91 Unspecified atrial fibrillation; Z95.5 Presence of coronary angioplasty implant and graft; E78.00 Pure hypercholesterolemia, unspecified; G47.30 Sleep apnea, unspecified; F41.9 Anxiety disorder, unspecified; Z87.891 Personal history of nicotine dependence; Z91.14 Patient's other noncompliance with medication regimen; J45.909 Unspecified asthma, uncomplicated; F14.10 Cocaine abuse, uncomplicated; M51.36 Other intervertebral disc degeneration, lumbar region; G47.33 Obstructive sleep apnea (adult) (pediatric); F31.9 Bipolar disorder, unspecified

== ENCOUNTER 2017-03-15 11:55 | Inpatient (IN) | payer MEDICARE, MEDICAID ==
[2017-03-15 11:55] VITALS: PULSE 76
[2017-03-15 12:23] VITALS: BMI 54.5
[2017-03-15] MEDS ORDERED: HYDROmorphone 1 mg/ml ISec IVP STA (12:50)
[2017-03-15 12:54] LABS: BASO # 0.1 K/uL (0.0-0.2); BASO % 0.5 % (0.0-2.0); EOS # 0.1 K/uL (0.0-0.7); EOS % 0.4 % (0.0-4.0); HEMATOCRIT 32.8 % (35.0-51.0); LYMPH # 1.3 K/uL (1.0-4.3); LYMPH % 7.4 % (20.0-40.0); MEAN CELL VOLUME 81.9 fL (80.0-94.0); MEAN CORPUSCULAR HEMOGLOBIN 25.7 pg (27.0-31.0); MEAN CORPUSCULAR HGB CONC 31.4 g/dL (33.0-37.0); MEAN PLATELET VOLUME 8.2 fL (7.2-11.7); MONO # 1.3 K/uL (0.0-0.8); MONO % 7.4 % (0.0-10.0); PLATELET COUNT 300 K/uL (130-400); RED CELL DISTRIBUTION WIDTH 16.2 % (11.5-14.5); WHITE BLOOD COUNT 17.3 K/uL (4.8-10.8)
[2017-03-15] MEDS ORDERED: HYDROmorphone 1 mg/ml ISec ONE (12:56)
[2017-03-15 13:02] LABS: INR 1.5
[2017-03-15 13:03] LABS: POTASSIUM 4.7 mmol/L (3.6-5.2)
[2017-03-15 13:05] LABS: ALB/GLOB RATIO 0.6 (1.0-2.1); BILIRUBIN,TOTAL 0.7 mg/dL (0.2-1.3); TOTAL PROTEIN 8.5 g/dL (6.3-8.3)
[2017-03-15 13:06] LABS: CALCIUM 8.2 mg/dl (8.6-10.4)
--- NOTE | 2017-03-15 13:10 | RAD ---
HISTORY: cp COMPARISON: Chest x-ray performed 03/13/17 TECHNIQUE: Chest, one view. FINDINGS: Examination limited by habitus and hypoinflation. Distal tip of right-sided PICC extends to the cavoatrial junction. LUNGS: Mild pulmonary venous congestion. Probable small left pleural effusion associated atelectasis/infiltrate. No definite pneumothorax. Please note that chest x-ray has limited sensitivity for the detection of pulmonary masses. CARDIOVASCULAR: Cardiomegaly. OSSEOUS STRUCTURES: No acute osseous abnormality identified. VISUALIZED UPPER ABDOMEN: Unremarkable. OTHER FINDINGS: None. IMPRESSION: Right-sided PICC. Cardiomegaly. Pulmonary venous congestion. Probable small left pleural effusion and associated atelectasis/infiltrate.
[2017-03-15 13:18] LABS: TROPONIN I 0.069 ng/mL (0.00-0.120)
[2017-03-15 13:21] LABS: BASOPHIL 1 % (0-2); NEUTROPHIL 80 % (50-75); TOTAL CELLS COUNTED 100
--- NOTE | 2017-03-15 14:15 | C.PDOC ---
History Of Present Illness 46 y/o male brought to ED by ALS from care home for evaluation of bilateral sharp chest pain associated with shortness of breath, cough, and chills. Patient was given Aspirin and SL Nitro in field, with improvement of symptoms. He denies any abdominal pain, n/v/d, dysuria/hematuria. Time Seen by Provider: 03/15/17 11:58 Chief Complaint (Nursing): Chest Pain History Per: Patient History/Exam Limitations: no limitations Onset/Duration Of Symptoms: Hrs Current Symptoms Are (Timing): Still Present Severity: Moderate Quality: Sharp, "Pain" Associated Symptoms: denies: Nausea, Dyspnea, Diaphoresis, Syncope Modifying Factors: None Exacerbating Factors: None Alleviating Factors: None Nitro Therapy Administered: Per EMS Additional History Per: Patient Past Medical History Reviewed: Historical Data, Nursing Documentation, Vital Signs Vital Signs: Last Vital Signs Temp 97.5 F L 03/16/17 23:23 Pulse 60 03/16/17 23:45 Resp 20 03/16/17 23:23 BP 151/82 H 03/16/17 23:23 Pulse Ox 94 L 03/22/17 10:20 - Medical History PMH: Anxiety, Asthma, Atrial Fibrillation, Back Problems, Bipolar Disorder, CAD , Cardia Arrhythmia, CHF, COPD, Depression, Emphysema, HTN, Hypercholesterolemia , Peripheral Edema, Sleep Apnea, Chronic Pain (Lower Back Pain) Surgical History: Appendectomy (2008), Coronary Stent (2008 - 2012 4 stents) - [facility] Procedures CORONAR ARTERIOGR-2 CATH (07/06/13) DRAINAGE OF SPLEEN, PERCUTANEOUS APPROACH (03/05/17) INJECT/INFUSE NEC (02/22/14) LEFT HEART CARDIAC CATH (07/06/13) LT HEART ANGIOCARDIOGRAM (07/06/13) NEBULIZER THERAPY (03/28/14) NON-INVASIVE MECHANICAL VENTILATION (03/26/15) TRANSFUSE NONAUT FROZEN PLASMA IN PERIPH VEIN, PERC (02/21/17) Family History: States: CAD, Diabetes - Social History Hx Tobacco Use: Yes Hx Alcohol Use: No Hx Substance Use: Yes - Immunization History Hx Tetanus Toxoid Vaccination: Yes Hx Influenza Vaccination: Yes Hx Pneumococcal Vaccination: Yes (08/2014) Review Of Systems Except As Marked, All Systems Reviewed And Found Negative. Constitutional: Positive for: Chills Cardiovascular: Positive for: Chest Pain. Negative for: Palpitations, Edema, Light Headedness Respiratory: Positive for: Cough, Shortness of Breath. Negative for: Sputum Gastrointestinal: Negative for: Nausea, Vomiting, Abdominal Pain, Diarrhea Genitourinary: Negative for: Dysuria, Hematuria Physical Exam - Physical Exam Appears: Non-toxic, Other (in mild distress, speaking in full sentences ) Skin: Normal Color, Warm, Dry Head: Normacephalic Eye(s): bilateral: Normal Inspection Oral Mucosa: Moist Neck: Supple Cardiovascular: Rhythm Irregular (irregularly irregular; tachycardic) Respiratory: No Accessory Muscle Use, No Rales, No Rhonchi, No Wheezing, Other ( coarse breath sounds B/L) Gastrointestinal/Abdominal: Normal Exam, Bowel Sounds, Soft, No Tenderness, No Guarding, No Rebound, Other (obese abdomen) Extremity: Normal ROM Neurological/Psych: Oriented x3 ED Course And Treatment - Laboratory Results Result Diagrams: 03/16/17 06:41 03/16/17 06:36 ECG: Interpreted By Me, Viewed By Me ECG Rhythm: Atrial Fibrillation ECG Interpretation: No Changes From Prior Interpretation Of ECG: Left axis deviation. T wave inversion in AVL, and V2 through V6. No ST wave changes. Rate From EC (bpm) O2 Sat by Pulse Oximetry: 94 (on RA) - Radiology CXR: Interpreted by Me, Viewed By Me (left sided infiltrate vs effusion) Progress Note: Blood work, CXR, EKG ordered and reviewed. Patient already on Vancomycin - IV Avelox and Cefepime added to get broad spetrum coverage. IV dilaudid ordered for pain at patient's insistence. Reevaluation Time: 14:40 Reassessment Condition: Improved (Patient reassessed, is sleeping, easily arousable to verbal stimuli, in no current pain.) - Physician Consult Information Physician Contacted: Roque Ocampo Jr. Outcome Of Conversation: Discussed patient with PMD, he agrees with admission for cough, fever, pneumonia, CHF exacerbation, chest pain, acute renal failure. He states NH called him this morning, patient has fever in NH. Patient currently has PICC line for (+) MRSA in splenic fluid - getting IV Vancomycin. Will add Avelox and Cefepime to cover for HCAP. vice president and portfolio manager notified of admission. Disposition - Disposition Disposition: HOSPITALIZED Disposition Time: 14:56 Condition: GUARDED - Clinical Impression Clinical Impression: Pneumonia, Dyspnea, Chest pain, CHF (congestive heart failure), ARF (acute renal failure), Congestive heart failure, Chest pain - Scribe Statement The provider has reviewed the documentation as recorded by the Galindo Razo Provider Attestation: All medical record entries made by the Galindo were at my direction and personally dictated by me. I have reviewed the chart and agree that the record accurately reflects my personal performance of the history, physical exam, medical decision making, and the department course for this patient. I have also personally directed, reviewed, and agree with the discharge instructions and disposition. Decision To Admit - Pt Status Changed To: Hospital Disposition Of: Inpatient - Admit Certification Admit to Inpatient:: After my assessment, the patient will require hospitalization for at least two midnights. This is because of the severity of symptoms shown, intensity of services needed, and/or the medical risk in this patient being treated as an outpatient. - InPatient: Physician Admission Certification: I certify that this patient requires 2 or more midnights of care for the following reason:: see notes - . Bed Request Type: Telemetry Admitting Physician: Roque Ocampo Jr. Patient Diagnosis: Pneumonia, Dyspnea, Chest pain, CHF (congestive heart failure), ARF (acute renal failure), Congestive heart failure, Chest pain
[2017-03-15] MEDS ORDERED: Moxifloxacin IV 400mg/250ml NS 250 ML IV ONE (15:02)
[2017-03-15] MEDS ORDERED: Cefepime 1 GM in Sodium Chloride 0.9% 50 ML IVPB ONE (15:03)
[2017-03-15] MEDS ORDERED: Moxifloxacin IV 400mg/250ml NS 250 ML IVPB ONE (15:45)
--- NOTE | 2017-03-15 16:41 | CP.PCM.HP ---
History of Present Illness - History of Present Illness History of Present Illness: 46M with PMH of HTN, CAD, CHF, Afib on coumadin, COPD, ARLENE, Bipolar disorder, Chronic back pain, herniated discs, presenting to [facility] for fever, chest pain and SOB. [facility] the intermediate earlier today when he spiked a fever. shelter notified Dr. Ocampo who then instructed them to sent him to the ED. Patient was discharged thursday from hospital with a PICC line and on IV vancomycin for MRSA infection. Upon interview, patient was extremely drowsy and could not provide a complete history. Patient was oriented to person and place but not time. He became very agitated and was acting hostile toward staff and security. ROS unobtainable due to agitation and lethargy. PMH: HTN, CAD, CHF, Afib, COPD, ARLENE, Herniated discs L-spine, Bipolar/Depression , Asthma Meds: Diltiazem, ASA, Carvedilol, warfarin, digoxin, enalapril, percocet, cyclobenzaprine, HCTZ, k-dur, Lasix, Albuterol, Prozac, Simvastatin, Montelukast , Tizanidine, Xanax, Gabapentin. Allergy: Apixaban, clopidogrel, enoxaparin, Morphine PSH: Appendectomy (2008), Coronary stents x4 ([id number]) Hosp: discharged last thursday for splenic hematoma and MRSA positive FH: Did not provide Social: Admits tob use, does not quantify. Social alcohol use; Admits to Cocaine use, however last time was 1 month ago, (previous note sts 3 month ago. Tox screen positive today for cocaine.) Present on Admission - Present on Admission Any Indicators Present on Admission: No History of DVT/PE: No History of Uncontrolled Diabetes: No Urinary Catheter: No Decubitus Ulcer Present: No Review of Systems - Review of Systems Systems not reviewed;Unavailable: Uncooperative, Other (lethargy) Past Patient History - Infectious Disease Hx of Infectious Diseases: None - Tetanus Immunizations Tetanus Immunization: Up to Date - Past Medical History & Family History Past Medical History?: Yes - Past Social History Smoking Status: Former Smoker - CARDIAC Hx Atrial Fibrillation: Yes Hx Cardia Arrhythmia: Yes Hx Congestive Heart Failure: Yes Hx Hypercholesterolemia: Yes Hx Hypertension: Yes Hx Peripheral Edema: Yes - PULMONARY Hx Asthma: Yes Hx Chronic Obstructive Pulmonary Disease (COPD): Yes Hx Emphysema: Yes Hx Sleep Apnea: Yes - NEUROLOGICAL Hx Neurological Disorder: No - HEENT Hx HEENT Problems: No - RENAL Hx Chronic Kidney Disease: No - ENDOCRINE/METABOLIC Hx Endocrine Disorders: No - HEMATOLOGICAL/ONCOLOGICAL Hx Blood Disorders: Yes Other/Comment: MRSA Hx - INTEGUMENTARY Hx Dermatological Problems: No - MUSCULOSKELETAL/RHEUMATOLOGICAL Hx Musculoskeletal Disorders: Yes - GASTROINTESTINAL Hx Gastrointestinal Disorders: Yes Other/Comment: Splenic Hematoma - GENITOURINARY/GYNECOLOGICAL Hx Genitourinary Disorders: No - PSYCHIATRIC Hx Anxiety: Yes Hx Bipolar Disorder: Yes Hx Depression: Yes Hx Substance Use: Yes - SURGICAL HISTORY Hx Appendectomy: Yes (2008) Hx Coronary Stent: Yes (2008 - 2012 4 stents) - ANESTHESIA Hx Anesthesia: Yes Hx Anesthesia Reactions: No Hx Malignant Hyperthermia: No Meds Allergies/Adverse Reactions: Allergies Allergy/AdvReac Type Severity Reaction Status Date / Time apixaban [From Eliquis] Allergy Verified 02/21/17 08:32 clopidogrel bisulfate Allergy Verified 02/21/17 08:32 [From Plavix] enoxaparin sodium Allergy Verified 02/21/17 08:32 [From Lovenox] morphine Allergy Verified 02/21/17 08:32 Physical Exam - Constitutional Appears: Agitated, Other (lethargic) - Head Exam Head Exam: ATRAUMATIC, NORMOCEPHALIC - Eye Exam Eye Exam: EOMI Pupil Exam: PERRL - ENT Exam ENT Exam: Mucous Membranes Dry - Respiratory Exam Respiratory Exam: NORMAL BREATHING PATTERN. absent: Accessory Muscle Use, Respiratory Distress Additional comments: coarse breath sounds - Cardiovascular Exam Cardiovascular Exam: Irregular Rhythm, +S1, +S2. absent: Bradycardia, Tachycardia - GI/Abdominal Exam GI & Abdominal Exam: Normal Bowel Sounds, Soft. absent: Tenderness - Extremities Exam Extremities exam: Positive for: pedal edema (trace), pedal pulses present - Back Exam Back exam: absent: CVA tenderness (L), CVA tenderness (R) - Neurological Exam Neurological exam: Altered, CN II-XII Intact - Psychiatric Exam Psychiatric exam: Agitated - Skin Skin Exam: Dry, Intact, Pallor Results - Vital Signs Recent Vital Signs: Last Vital Signs Temp 98.4 F 03/15/17 12:00 Pulse 104 H 03/15/17 13:45 Resp 22 03/15/17 13:45 BP 136/91 H 03/15/17 13:45 Pulse Ox 94 L 03/15/17 15:40 - Labs Result Diagrams: 03/15/17 12:45 03/15/17 12:45 Assessment & Plan - Assessment and Plan (Free Text) Plan: Sepsis Admit to ICU Hypotensive Code sepsis ID consult, Dr. Sorenson, help appreciated ICU consult, Dr. Moses, help appreciated VBG NS 500 cc bolus x 3 Blood/urine/sputum culture CXR: PICC line present, cardiomegaly, small left basial atelectasis/infiltrate ( see full report). Cefepime IVPB Q12H Vancomycin IVPB Q72H Avelox IVPB daily Duonebs O2 2LNC COPD CXR: PICC line present, cardiomegaly, small left basial atelectasis/infiltrate ( see full report). Cefepime IVPB Q12H Vancomycin IVPB Q72H Avelox IVPB daily O2 2LNC Duonebs AFIB hold home medications hold coumadin f/u Coags CHF hold home medications I's & O's daily weight HTN hold home medications CAD hold home medications
[2017-03-15 17:58] LABS: VENOUS BLOOD GAS BASE EXCESS 3.5 mmol/L (0.0-2.0); VENOUS BLOOD GAS PCO2 57 mmHg (40-60); VENOUS BLOOD PH 7.34 (7.32-7.43)
--- NOTE | 2017-03-15 17:58 | PCM.SEPTIC ---
Sepsis Progress Note - Reassessment Type Date of Evaluation: 03/15/17 Time of Evaluation: 05:00 Reassessment Type: Non-invasive reassessment - Non Invasive Reassessment Were the most recent vital sign reviewed: Yes Vital Sign (Latest): Temp Pulse Resp BP Pulse Ox 98.4 F 84 22 78/47 L 95 03/15/17 12:00 03/15/17 17:07 03/15/17 17:07 03/15/17 17:07 03/15/17 17:07 Cardiovascular: Yes: Irregularly Irregular. No: Gallop, JVD, Tachycardia Respiratory: Yes: Rales, Rhonchi. No: Accessory Muscle Use, Respiratory Distress Capillary Refill: Normal (Less than 2 sec) Pulses: Decreased Radial Skin: Normal Color, Dry Fluid Challenge performed: Yes
[2017-03-15] MEDS ORDERED: Sodium Chloride 0.9% 500 ML IV ONE ×3 (18:00→18:58)
[2017-03-15] MEDS ORDERED: Cefepime IV 1 gm in Dextrose 50 ML IVPB ONE (18:00)
[2017-03-15] MEDS ORDERED: Sodium Chloride 0.9% 3,000 ML IV ONE (18:25)
[2017-03-15 18:53] LABS: RBC URINE 1 /hpf (0-3); URINE BACTERIA RARE (<OCC); URINE BILIRUBIN NEGATIVE (NEGATIVE); URINE BLOOD NEGATIVE (NEGATIVE); URINE COLOR Amber (YELLOW); URINE GLUCOSE (UA) NORMAL (Normal); URINE KETONE NEGATIVE (NEGATIVE); URINE LEUKOCYTE ESTERASE NEG Leu/uL (Negative); URINE PROTEIN 1+ mg/dL (NEGATIVE); WBC URINE 1 /hpf (0-5)
[2017-03-15] MEDS ORDERED: Albuterol-Ipratrop 3 mg / 0.5 (3 ml) UD INH PRN (20:39)
--- NOTE | 2017-03-15 21:17 | CP.PCM.CON ---
History of Present Illness - History of Present Illness History of Present Illness: History of Present Illness: 46M with PMH of HTN, CAD, CHF, Afib on coumadin, COPD, ARLENE, Bipolar disorder, Chronic back pain, herniated discs, presenting to [facility] for fever, chest pain and SOB. [facility] a [facility]. care home notified Dr. Ocampo who then instructed them to sent him to the ED. Patient was discharged thursday from hospital with a PICC line and on IV vancomycin for MRSA infection. Upon interview, patient was extremely drowsy and could not provide a complete history. Patient was oriented to person and place but not time. He became very agitated and was acting hostile toward staff and security. ROS unobtainable due to agitation and lethargy. PMH: HTN, CAD, CHF, Afib, COPD, ARLENE, Herniated discs L-spine, Bipolar/Depression , Asthma Meds: Diltiazem, ASA, Carvedilol, warfarin, digoxin, enalapril, percocet, cyclobenzaprine, HCTZ, k-dur, Lasix, Albuterol, Prozac, Simvastatin, Montelukast , Tizanidine, Xanax, Gabapentin. Allergy: Apixaban, clopidogrel, enoxaparin, Morphine PSH: Appendectomy (2008), Coronary stents x4 ([id number]) Hosp: discharged last thursday for splenic hematoma and MRSA positive FH: Did not provide Social: Admits tob use, does not quantify. Social alcohol use; Admits to Cocaine use, however last time was 1 month ago, (previous note sts 3 month ago. Tox screen positive today for cocaine.) Patient is a 46 y/o male [facility] for evaluation of bilateral sharp chest pain associated with shortness of breath, cough, and chills. Patient was given Aspirin and Nitro in field with improvement of symptoms. Otherwise, pt denies any abdominal pain, n/v/d, or any other associated symptoms at this time. Patient seen and examined while in ICU. When I arrived to the room he was covering his right eye. I asked him what was bothering him and he said is the light. He states the alarcon bothers him, I answered him that we need to measure his UO due to new ARF. He stated that "we fucked up his kidney" and he started cursing me and the staff. He told me to leave and I was able only to listen to upper chest. He refused last check of VS in ER. One of the nurses in ICU found a bottle of medications labeled as ibuprofen with 4 different pills. History obtained form chart. This time he comes from prison for chest pain , sob, cough and chills. ros unable PMH: HTN CAD CHF Atrial fibrillation COPD ARLENE Herniated discs L-spine Bipolar/Depression Asthma Allergic to apixaban, plavix, lovnox and morphine FH: unable social: cocaine use pe: upper anterior chest clear lung sound rest unable a/p: Past Patient History - Infectious Disease Hx of Infectious Diseases: None - Tetanus Immunizations Tetanus Immunization: Up to Date - Past Medical History & Family History Past Medical History?: Yes - Past Social History Smoking Status: Former Smoker - CARDIAC Hx Atrial Fibrillation: Yes Hx Cardia Arrhythmia: Yes Hx Congestive Heart Failure: Yes Hx Hypercholesterolemia: Yes Hx Hypertension: Yes Hx Peripheral Edema: Yes - PULMONARY Hx Asthma: Yes Hx Chronic Obstructive Pulmonary Disease (COPD): Yes Hx Emphysema: Yes Hx Sleep Apnea: Yes - NEUROLOGICAL Hx Neurological Disorder: No - HEENT Hx HEENT Problems: No - RENAL Hx Chronic Kidney Disease: No - ENDOCRINE/METABOLIC Hx Endocrine Disorders: No - HEMATOLOGICAL/ONCOLOGICAL Hx Blood Disorders: Yes Other/Comment: MRSA Hx - INTEGUMENTARY Hx Dermatological Problems: No - MUSCULOSKELETAL/RHEUMATOLOGICAL Hx Musculoskeletal Disorders: Yes - GASTROINTESTINAL Hx Gastrointestinal Disorders: Yes Other/Comment: Splenic Hematoma - GENITOURINARY/GYNECOLOGICAL Hx Genitourinary Disorders: No - PSYCHIATRIC Hx Anxiety: Yes Hx Bipolar Disorder: Yes Hx Depression: Yes Hx Substance Use: Yes - SURGICAL HISTORY Hx Appendectomy: Yes (2008) Hx Coronary Stent: Yes (2008 - 2012 4 stents) - ANESTHESIA Hx Anesthesia: Yes Hx Anesthesia Reactions: No Hx Malignant Hyperthermia: No Meds Allergies/Adverse Reactions: Allergies Allergy/AdvReac Type Severity Reaction Status Date / Time apixaban [From Eliquis] Allergy Verified 02/21/17 08:32 clopidogrel bisulfate Allergy Verified 02/21/17 08:32 [From Plavix] enoxaparin sodium Allergy Verified 02/21/17 08:32 [From Lovenox] morphine Allergy Verified 02/21/17 08:32 - Medications Medications: Current Medications Albuterol/Ipratropium (Duoneb 3 Mg/0.5 Mg (3 Ml) Ud) 3 ml INH RQ2 PRN PRN Reason: Shortness of Breath Cefepime HCl (Maxipime Iv 1 Gm Premix) 50 mls @ 100 mls/hr IVPB Q12H [facility] Moxifloxacin HCl (Avelox Iv 400mg/250ml Ns) 250 mls @ 167 mls/hr IVPB Q24H [facility] Vancomycin HCl 1 gm/ Sodium (Chloride) 250 mls @ 166.7 mls/hr IVPB Q72H [facility] Ondansetron HCl (Zofran Inj) 4 mg IVP Q6H PRN PRN Reason: Nausea/Vomiting Pantoprazole Sodium (Protonix Inj) 40 mg IVP DAILY [facility] Results - Vital Signs Recent Vital Signs: Last Vital Signs Temp 98.7 F 03/15/17 20:57 Pulse 68 03/15/17 20:57 Resp 18 03/15/17 20:57 BP 101/51 L 03/15/17 20:57 Pulse Ox 93 L 03/15/17 20:57 - Labs Result Diagrams: 03/15/17 12:45 03/15/17 12:45 Labs: Laboratory Results - last 24 hr 03/15/17 03/15/17 17:45 18:39 VBG pH 7.34 VBG pCO2 57 VBG Total CO2 32.5 H VBG O2 Sat (Calc) 59.4 VBG Base Excess 3.5 H VBG Potassium 4.8 Sodium 129.0 L Chloride 97.0 L Glucose 137 H Lactate 1.9 Venous Blood Potassium 4.8 Urine Color Triny Urine Clarity Hazy Urine pH 5.0 Ur Specific [place] 1.019 Urine Protein 1+ H Urine Glucose (UA) Normal Urine Ketones Negative Urine Blood Negative Urine Nitrate Negative Urine Bilirubin Negative Urine Urobilinogen 2.0 Ur Leukocyte Esterase Neg Urine WBC (Auto) 1 Urine RBC (Auto) 1 Ur Squamous Epith Cells < 1 Urine Bacteria Rare Urine Opiates Screen Negative Urine Methadone Screen Negative Ur Barbiturates Screen Negative Ur Phencyclidine Scrn Negative Ur Amphetamines Screen Negative U Benzodiazepines Scrn Positive U Oth Cocaine Metabols Negative U Cannabinoids Screen Negative
--- NOTE | 2017-03-15 21:43 | CP.PCM.CON ---
History of Present Illness - History of Present Illness History of Present Illness: Patient seen and examined while in ICU. when I arrived to the room he was covering his right eye. I asked him what was bothering him and he said is the light. He sttes the alarcon bohters him, I answered him that we need to monitor his UO adequately due to new ARF. He stated that "we fucked up his kidney and we are doing things to him" and started cursing me and the nurse. He told me to leave. He refused last check of VS in ER. One of the nurses in ICU found a bottle of medications labeled as ibuprofen with 4 different kind of pills. As per [place], sob, cough and chills. He removed his picc line. Recently discharged from this facility with IV antibiotics for MRSA bacteremia to complete 6-8 weeks of IV antibiotics. Accepted to ICU for low bp despite 3 L of IV fluids. ros: unable, except for above pe: upper anterior chest with good bilateral air of entry, rest unable PMH: htn, cad, chf, a. fib, copd, mariah, herniated discs L spine, bipolar disorder , depression, asthma Multiple drug allergies social: cocaine abuse pe: upper anterior chest clear lung sound, rest unable a/p: MRSA bacteremia: continue vancomycin and adjust to renal function, IV fluids. I doubt his bp is in the 70's as marked by bp cuff, first set of vs here sbp 140' s second sbp 70's, but we are not able to check any more since he refuses and he looks clinically well. Get BC. ARF: IV fluids, monitor UO Atrial fibrillations: takes coumadin, monitor PT CAD COPD Morbid obesity Past Patient History - Infectious Disease Hx of Infectious Diseases: None - Tetanus Immunizations Tetanus Immunization: Up to Date - Past Medical History & Family History Past Medical History?: Yes - Past Social History Smoking Status: Former Smoker - CARDIAC Hx Atrial Fibrillation: Yes Hx Cardia Arrhythmia: Yes Hx Congestive Heart Failure: Yes Hx Hypercholesterolemia: Yes Hx Hypertension: Yes Hx Peripheral Edema: Yes - PULMONARY Hx Asthma: Yes Hx Chronic Obstructive Pulmonary Disease (COPD): Yes Hx Emphysema: Yes Hx Sleep Apnea: Yes - NEUROLOGICAL Hx Neurological Disorder: No - HEENT Hx HEENT Problems: No - RENAL Hx Chronic Kidney Disease: No - ENDOCRINE/METABOLIC Hx Endocrine Disorders: No - HEMATOLOGICAL/ONCOLOGICAL Hx Blood Disorders: Yes Other/Comment: MRSA Hx - INTEGUMENTARY Hx Dermatological Problems: No - MUSCULOSKELETAL/RHEUMATOLOGICAL Hx Musculoskeletal Disorders: Yes - GASTROINTESTINAL Hx Gastrointestinal Disorders: Yes Other/Comment: Splenic Hematoma - GENITOURINARY/GYNECOLOGICAL Hx Genitourinary Disorders: No - PSYCHIATRIC Hx Anxiety: Yes Hx Bipolar Disorder: Yes Hx Depression: Yes Hx Substance Use: Yes - SURGICAL HISTORY Hx Appendectomy: Yes (2008) Hx Coronary Stent: Yes (2008 - 2012 4 stents) - ANESTHESIA Hx Anesthesia: Yes Hx Anesthesia Reactions: No Hx Malignant Hyperthermia: No Meds Allergies/Adverse Reactions: Allergies Allergy/AdvReac Type Severity Reaction Status Date / Time apixaban [From Eliquis] Allergy Verified 02/21/17 08:32 clopidogrel bisulfate Allergy Verified 02/21/17 08:32 [From Plavix] enoxaparin sodium Allergy Verified 02/21/17 08:32 [From Lovenox] morphine Allergy Verified 02/21/17 08:32 - Medications Medications: Current Medications Albuterol/Ipratropium (Duoneb 3 Mg/0.5 Mg (3 Ml) Ud) 3 ml INH RQ2 PRN PRN Reason: Shortness of Breath Cefepime HCl (Maxipime Iv 1 Gm Premix) 50 mls @ 100 mls/hr IVPB Q12H [facility] Moxifloxacin HCl (Avelox Iv 400mg/250ml Ns) 250 mls @ 167 mls/hr IVPB Q24H [facility] Vancomycin HCl 1 gm/ Sodium (Chloride) 250 mls @ 166.7 mls/hr IVPB Q72H [facility] Ondansetron HCl (Zofran Inj) 4 mg IVP Q6H PRN PRN Reason: Nausea/Vomiting Pantoprazole Sodium (Protonix Inj) 40 mg IVP DAILY [facility] Results - Vital Signs Recent Vital Signs: Last Vital Signs Temp 98.7 F 03/15/17 20:57 Pulse 68 03/15/17 20:57 Resp 18 03/15/17 20:57 BP 101/51 L 03/15/17 20:57 Pulse Ox 93 L 03/15/17 20:57 - Labs Result Diagrams: 03/15/17 12:45 03/15/17 12:45 Labs: Laboratory Results - last 24 hr 03/15/17 03/15/17 17:45 18:39 VBG pH 7.34 VBG pCO2 57 VBG Total CO2 32.5 H VBG O2 Sat (Calc) 59.4 VBG Base Excess 3.5 H VBG Potassium 4.8 Sodium 129.0 L Chloride 97.0 L Glucose 137 H Lactate 1.9 Venous Blood Potassium 4.8 Urine Color Triny Urine Clarity Hazy Urine pH 5.0 Ur Specific [place] 1.019 Urine Protein 1+ H Urine Glucose (UA) Normal Urine Ketones Negative Urine Blood Negative Urine Nitrate Negative Urine Bilirubin Negative Urine Urobilinogen 2.0 Ur Leukocyte Esterase Neg Urine WBC (Auto) 1 Urine RBC (Auto) 1 Ur Squamous Epith Cells < 1 Urine Bacteria Rare Urine Opiates Screen Negative Urine Methadone Screen Negative Ur Barbiturates Screen Negative Ur Phencyclidine Scrn Negative Ur Amphetamines Screen Negative U Benzodiazepines Scrn Positive U Oth Cocaine Metabols Negative U Cannabinoids Screen Negative
[2017-03-15] MEDS: Sodium Chloride 0.9% 1,000 ML IV SCH (22:55)
[2017-03-16] MEDS ORDERED: Acetaminophen IV 1,000 MG in Premixed IV 1 EA IV ONE (01:13)
[2017-03-16 06:56] LABS: BASO # 0.1 K/uL (0.0-0.2); BASO % 0.5 % (0.0-2.0); EOS # 0.1 K/uL (0.0-0.7); EOS % 0.8 % (0.0-4.0); HEMATOCRIT 29.6 % (35.0-51.0); INR 1.5; LYMPH # 1.2 K/uL (1.0-4.3); LYMPH % 7.2 % (20.0-40.0); MEAN CELL VOLUME 81.9 fL (80.0-94.0); MEAN CORPUSCULAR HEMOGLOBIN 25.6 pg (27.0-31.0); MEAN CORPUSCULAR HGB CONC 31.2 g/dL (33.0-37.0); MEAN PLATELET VOLUME 8.3 fL (7.2-11.7); MONO # 1.2 K/uL (0.0-0.8); MONO % 6.8 % (0.0-10.0); PLATELET COUNT 272 K/uL (130-400); RED CELL DISTRIBUTION WIDTH 16.2 % (11.5-14.5); WHITE BLOOD COUNT 17.1 K/uL (4.8-10.8)
[2017-03-16 06:59] LABS: POTASSIUM 4.4 mmol/L (3.6-5.2)
[2017-03-16 07:01] LABS: ALB/GLOB RATIO 0.6 (1.0-2.1); BILIRUBIN,TOTAL 0.4 mg/dL (0.2-1.3); TOTAL PROTEIN 7.5 g/dL (6.3-8.3)
[2017-03-16 07:02] LABS: CALCIUM 7.7 mg/dl (8.6-10.4)
[2017-03-16 08:27] LABS: NEUTROPHIL 80 % (50-75); TOTAL CELLS COUNTED 100
--- NOTE | 2017-03-16 08:45 | RAD ---
HISTORY: picc line placement, pulled out further COMPARISON: No prior. FINDINGS: LUNGS: Right PICC line seen projecting lateral to upper right ribs projecting over the clavicle in the proximal right axillary vein. Advancement and or repositioning recommended. Moderate venous congestion. Left basilar airspace opacity with small left pleural effusion. PLEURA: As above. CARDIOVASCULAR: Cardiomegaly. OSSEOUS STRUCTURES: Degenerative changes in the spine and shoulders. VISUALIZED UPPER ABDOMEN: Normal. OTHER FINDINGS: None. IMPRESSION: Right PICC line seen projecting lateral to upper right ribs projecting over the clavicle in the proximal right axillary vein. Advancement and or repositioning recommended. Moderate venous congestion. Left basilar airspace opacity with small left pleural effusion.
[2017-03-16] MEDS ORDERED: Cefepime IV 1 gm in Dextrose 50 ML IVPB SCH (10:00)
[2017-03-16] MEDS ORDERED: Albuterol HFA 90 mcg/actuation (8 g) IH SCH (10:00)
[2017-03-16] MEDS: Oxycodone/Acetaminophen 5/325 mg Tab PO PRN ×2 (11:01→19:51)
--- NOTE | 2017-03-16 12:29 | CP.PCM.CON ---
History of Present Illness - History of Present Illness History of Present Illness: 46M with PMH of HTN, CAD, CHF, Afib on coumadin, COPD, ARLENE, Bipolar disorder, Chronic back pain, herniated discs, presenting to [facility] for fever, chest pain and SOB. Patient was at the group home earlier today when he spiked a fever. longterm notified Dr. Ocampo who then instructed them to sent him to the ED. Patient was discharged thursday from hospital with a PICC line and on IV vancomycin for MRSA infection. Upon interview, patient was extremely drowsy and could not provide a complete history. Patient was oriented to person and place but not time. He became very agitated and was acting hostile toward staff and security. ROS unobtainable due to agitation and lethargy. PMH: HTN, CAD, CHF, Afib, COPD, ARLENE, Herniated discs L-spine, Bipolar/Depression , Asthma Meds: Diltiazem, ASA, Carvedilol, warfarin, digoxin, enalapril, percocet, cyclobenzaprine, HCTZ, k-dur, Lasix, Albuterol, Prozac, Simvastatin, Montelukast , Tizanidine, Xanax, Gabapentin. Allergy: Apixaban, clopidogrel, enoxaparin, Morphine PSH: Appendectomy (2008), Coronary stents x4 ([id number]) Hosp: discharged last thursday for splenic hematoma and MRSA positive FH: Did not provide Social: Admits tob use, does not quantify. Social alcohol use; Admits to Cocaine use, however last time was 1 month ago, (previous note sts 3 month ago. Tox screen positive today for cocaine.) Past Patient History - Infectious Disease Hx of Infectious Diseases: None - Tetanus Immunizations Tetanus Immunization: Up to Date - Past Medical History & Family History Past Medical History?: Yes - Past Social History Smoking Status: Former Smoker - CARDIAC Hx Atrial Fibrillation: Yes Hx Cardia Arrhythmia: Yes Hx Congestive Heart Failure: Yes Hx Hypercholesterolemia: Yes Hx Hypertension: Yes Hx Peripheral Edema: Yes - PULMONARY Hx Asthma: Yes Hx Chronic Obstructive Pulmonary Disease (COPD): Yes Hx Emphysema: Yes Hx Sleep Apnea: Yes - NEUROLOGICAL Hx Neurological Disorder: No - HEENT Hx HEENT Problems: No - RENAL Hx Chronic Kidney Disease: No - ENDOCRINE/METABOLIC Hx Endocrine Disorders: No - HEMATOLOGICAL/ONCOLOGICAL Hx Blood Disorders: Yes Other/Comment: MRSA Hx - INTEGUMENTARY Hx Dermatological Problems: No - MUSCULOSKELETAL/RHEUMATOLOGICAL Hx Musculoskeletal Disorders: Yes - GASTROINTESTINAL Hx Gastrointestinal Disorders: Yes Other/Comment: Splenic Hematoma - GENITOURINARY/GYNECOLOGICAL Hx Genitourinary Disorders: No - PSYCHIATRIC Hx Anxiety: Yes Hx Bipolar Disorder: Yes Hx Depression: Yes Hx Substance Use: Yes - SURGICAL HISTORY Hx Appendectomy: Yes (2008) Hx Coronary Stent: Yes (2008 - 2012 4 stents) - ANESTHESIA Hx Anesthesia: Yes Hx Anesthesia Reactions: No Hx Malignant Hyperthermia: No Meds Allergies/Adverse Reactions: Allergies Allergy/AdvReac Type Severity Reaction Status Date / Time apixaban [From Eliquis] Allergy Verified 02/21/17 08:32 clopidogrel bisulfate Allergy Verified 02/21/17 08:32 [From Plavix] enoxaparin sodium Allergy Verified 02/21/17 08:32 [From Lovenox] morphine Allergy Verified 02/21/17 08:32 - Medications Medications: Current Medications Albuterol/Ipratropium (Duoneb 3 Mg/0.5 Mg (3 Ml) Ud) 3 ml INH RQ2 PRN PRN Reason: Shortness of Breath Alprazolam (Xanax) 1 mg PO QID PRN PRN Reason: Anxiety Last Admin: 03/16/17 11:02 Dose: 1 mg Famotidine (Pepcid) 20 mg PO DAILY [facility] Last Admin: 03/16/17 10:33 Dose: Not Given Cefepime HCl (Maxipime Iv 1 Gm Premix) 50 mls @ 100 mls/hr IVPB Q12H [facility] Moxifloxacin HCl (Avelox Iv 400mg/250ml Ns) 250 mls @ 167 mls/hr IVPB Q24H [facility] Sodium Chloride (Sodium Chloride 0.9%) 1,000 mls @ 100 mls/hr IV .Q10H [facility] Last Admin: 03/15/17 22:55 Dose: 100 mls/hr Vancomycin HCl 1 gm/ Sodium (Chloride) 250 mls @ 166.7 mls/hr IVPB Q72H [facility] Last Admin: 03/15/17 22:58 Dose: 166.7 mls/hr Ondansetron HCl (Zofran Inj) 4 mg IVP Q6H PRN PRN Reason: Nausea/Vomiting Oxycodone/Acetaminophen (Percocet 5/325 Mg Tab) 2 tab PO Q6H PRN PRN Reason: Pain, moderate (4-7) Stop: 03/19/17 10:47 Last Admin: 03/16/17 11:01 Dose: 2 tab Warfarin Sodium (Coumadin) 5 mg PO 1800 JEIMY Stop: 03/16/17 18:01 Results - Vital Signs Recent Vital Signs: Last Vital Signs Temp 98.2 F 03/16/17 08:00 Pulse 96 H 03/16/17 08:00 Resp 33 H 03/16/17 08:00 BP 102/58 L 03/16/17 08:00 Pulse Ox 94 L 03/15/17 21:20 - Labs Result Diagrams: 03/16/17 06:41 03/16/17 06:36 Labs: Laboratory Results - last 24 hr 03/15/17 03/15/17 03/15/17 17:45 18:39 21:50 WBC RBC Hgb Hct MCV MCH MCHC RDW Plt Count MPV Neut % (Auto) Lymph % (Auto) [place] % (Auto) Eos % (Auto) Baso % (Auto) Neut # Lymph # [place] # Eos # Baso # Neutrophils % (Manual) Band Neutrophils % Lymphocytes % (Manual) Monocytes % (Manual) Platelet Estimate Polychromasia Hypochromasia (manual) Anisocytosis (manual) Microcytosis (manual) PT INR APTT VBG pH 7.34 VBG pCO2 57 VBG Total CO2 32.5 H VBG O2 Sat (Calc) 59.4 VBG Base Excess 3.5 H VBG Potassium 4.8 Sodium 129.0 L Chloride 97.0 L Glucose 137 H Lactate 1.9 Potassium Carbon Dioxide Anion Gap BUN Creatinine Est GFR ( Amer) Est GFR (Non-Af Amer) Random Glucose Lactic Acid 1.3 Calcium Total Bilirubin AST ALT Alkaline Phosphatase Total Protein Albumin Globulin Albumin/Globulin Ratio Venous Blood Potassium 4.8 Urine Color Triny Urine Clarity Hazy Urine pH 5.0 Ur Specific [place] 1.019 Urine Protein 1+ H Urine Glucose (UA) Normal Urine Ketones Negative Urine Blood Negative Urine Nitrate Negative Urine Bilirubin Negative Urine Urobilinogen 2.0 Ur Leukocyte Esterase Neg Urine WBC (Auto) 1 Urine RBC (Auto) 1 Ur Squamous Epith Cells < 1 Urine Bacteria Rare Urine Opiates Screen Negative Urine Methadone Screen Negative Ur Barbiturates Screen Negative Ur Phencyclidine Scrn Negative Ur Amphetamines Screen Negative U Benzodiazepines Scrn Positive U Oth Cocaine Metabols Negative U Cannabinoids Screen Negative Influenza Typ A,B (EIA) 03/15/17 03/16/17 03/16/17 21:54 06:36 06:41 WBC 17.1 H RBC 3.61 L Hgb 9.2 L Hct 29.6 L MCV 81.9 MCH 25.6 L MCHC 31.2 L RDW 16.2 H Plt Count 272 MPV 8.3 Neut % (Auto) 84.7 H Lymph % (Auto) 7.2 L [place] % (Auto) 6.8 Eos % (Auto) 0.8 Baso % (Auto) 0.5 Neut # 14.5 H Lymph # 1.2 [place] # 1.2 H Eos # 0.1 Baso # 0.1 Neutrophils % (Manual) 80 H Band Neutrophils % 3 H Lymphocytes % (Manual) 10 L Monocytes % (Manual) 7 Platelet Estimate Normal Polychromasia Slight Hypochromasia (manual) Slight Anisocytosis (manual) Slight Microcytosis (manual) Slight PT 17.2 H INR 1.5 APTT 36 H VBG pH VBG pCO2 VBG Total CO2 VBG O2 Sat (Calc) VBG Base Excess VBG Potassium Sodium 130 L Chloride 94 L Glucose Lactate Potassium 4.4 Carbon Dioxide 29 Anion Gap 11 BUN 43 H Creatinine 1.8 H Est GFR ( Amer) 49 Est GFR (Non-Af Amer) 40 Random Glucose 117 H Lactic Acid Calcium 7.7 L Total Bilirubin 0.4 AST 81 H D ALT 27 Alkaline Phosphatase 97 Total Protein 7.5 Albumin 2.8 L Globulin 4.7 H Albumin/Globulin Ratio 0.6 L Venous Blood Potassium Urine Color Urine Clarity Urine pH Ur Specific [place] Urine Protein Urine Glucose (UA) Urine Ketones Urine Blood Urine Nitrate Urine Bilirubin Urine Urobilinogen Ur Leukocyte Esterase Urine WBC (Auto) Urine RBC (Auto) Ur Squamous Epith Cells Urine Bacteria Urine Opiates Screen Urine Methadone Screen Ur Barbiturates Screen Ur Phencyclidine Scrn Ur Amphetamines Screen U Benzodiazepines Scrn U Oth Cocaine Metabols U Cannabinoids Screen Influenza Typ A,B (EIA) Negative for flu a/b
[2017-03-16] MEDS ORDERED: Moxifloxacin IV 400mg/250ml NS 250 ML IVPB SCH (16:00)
--- NOTE | 2017-03-16 18:01 | CP.PCM.PN ---
<Miguel Landaverde - Last Filed: 03/16/17 17:58> Subjective - Date & Time of Evaluation Date of Evaluation: 03/16/17 Time of Evaluation: 09:04 - Subjective Subjective: Pt seen and examined. Pt very hostile and yelling as he speaks. Pt reports that he has pain in his abdomen. Pt denies fever, chills, chest pain, shortness of breath. Objective - Vital Signs/Intake and Output Vital Signs (last 24 hours): Temp Pulse Resp BP Pulse Ox 98.2 F 96 H 33 H 102/58 L 94 L 03/16/17 08:00 03/16/17 08:00 03/16/17 08:00 03/16/17 08:00 03/15/17 21:20 Intake and Output: 03/16/17 03/16/17 06:59 18:59 Intake Total 1000 300 Output Total 950 500 Balance 50 -200 - Medications Medications: Current Medications Albuterol/Ipratropium (Duoneb 3 Mg/0.5 Mg (3 Ml) Ud) 3 ml INH RQ2 PRN PRN Reason: Shortness of Breath Alprazolam (Xanax) 1 mg PO QID PRN PRN Reason: Anxiety Last Admin: 03/16/17 11:02 Dose: 1 mg Famotidine (Pepcid) 20 mg PO DAILY [facility] Last Admin: 03/16/17 10:33 Dose: Not Given Cefepime HCl (Maxipime Iv 1 Gm Premix) 50 mls @ 100 mls/hr IVPB Q12H [facility] Moxifloxacin HCl (Avelox Iv 400mg/250ml Ns) 250 mls @ 167 mls/hr IVPB Q24H [facility] Sodium Chloride (Sodium Chloride 0.9%) 1,000 mls @ 100 mls/hr IV .Q10H [facility] Last Admin: 03/15/17 22:55 Dose: 100 mls/hr Vancomycin HCl 1 gm/ Sodium (Chloride) 250 mls @ 166.7 mls/hr IVPB Q72H [facility] Last Admin: 03/15/17 22:58 Dose: 166.7 mls/hr Ondansetron HCl (Zofran Inj) 4 mg IVP Q6H PRN PRN Reason: Nausea/Vomiting Oxycodone/Acetaminophen (Percocet 5/325 Mg Tab) 2 tab PO Q6H PRN PRN Reason: Pain, moderate (4-7) Stop: 03/19/17 10:47 Last Admin: 03/16/17 11:01 Dose: 2 tab Warfarin Sodium (Coumadin) 5 mg PO 1800 JEIMY Stop: 03/16/17 18:01 - Labs Labs: 03/16/17 06:41 03/16/17 06:36 PT 17.2 SECONDS (9.7-12.2) H 03/16/17 06:41 INR 1.5 03/16/17 06:41 APTT 36 SECONDS (21-34) H 03/16/17 06:41 - Constitutional Appears: Toxic, No Acute Distress - Head Exam Head Exam: ATRAUMATIC, NORMOCEPHALIC - Eye Exam Eye Exam: EOMI - ENT Exam ENT Exam: Mucous Membranes Moist. absent: Mucous Membranes Dry - Respiratory Exam Respiratory Exam: Clear to Ausculation Bilateral. absent: Rhonchi, Wheezes - Cardiovascular Exam Cardiovascular Exam: +S1, +S2. absent: Gallop, Rubs - GI/Abdominal Exam GI & Abdominal Exam: Distended, Soft, Tenderness - Extremities Exam Extremities Exam: Full ROM. absent: Pedal Edema - Neurological Exam Neurological Exam: Alert, Awake, Oriented x3 - Psychiatric Exam Psychiatric exam: Agitated - Skin Skin Exam: Petechiae Additional comments: Multiple petechiae throughout chest and abdomen Assessment and Plan - Assessment and Plan (Free Text) Assessment: Sepsis WBC 17.1 Hypotensive with a BP of 102/58 Tachycardic at 101 bpm Blood cultures, urine cultures, sputum cultures pending ID consult, Dr. Sorenson, help appreciated Vancomycin 1 gm IV q72h Avelox 250 mg IV q24h Maxipime 1 gm IV Q12h NS 100 cc/hr COPD: Duonebs prn Atrial Fibrillation: hold home medications hold coumadin f/u Coags CHF: home medications held I's & O's daily weight HTN: home medications held due to hypotension Prophylactic Measures: DVT: SCDs GI: Protonix 40 mg po qd <Roque Ocampo Jr. - Last Filed: 03/29/17 13:44> Objective - Vital Signs/Intake and Output Vital Signs (last 24 hours): Temp Pulse Resp BP Pulse Ox 97.5 F L 60 20 151/82 H 94 L 03/16/17 23:23 03/16/17 23:45 03/16/17 23:23 03/16/17 23:23 03/22/17 10:21 - Labs Labs: 03/16/17 06:41 03/16/17 06:36 PT 17.2 SECONDS (9.7-12.2) H 03/16/17 06:41 INR 1.5 03/16/17 06:41 APTT 36 SECONDS (21-34) H 03/16/17 06:41 Attending/Attestation - Attestation I have personally seen and examined this patient.: Yes I have fully participated in the care of the patient.: Yes I have reviewed all pertinent clinical information, including history, physical exam and plan: Yes Notes (Text): 03/29/17 13:44 Agree with findings and plan
[2017-03-16] MEDS: Sodium Chloride 0.9% 1,000 ML IV SCH (18:50)
[2017-03-17 02:22] VITALS: BP 151/82; PULSE 60; RESP 20; TEMP 97.5
[2017-03-17] MEDS: Oxycodone/Acetaminophen 5/325 mg Tab PO PRN (02:50)
--- NOTE | 2017-03-17 07:59 | CARD ---
APPROVED REPORT EKG Measurement Heart [id number] <Conclusion> Atrial fibrillation Possible Inferior infarct, age undetermined ST & T wave abnormality, consider lateral ischemia Abnormal ECG
[2017-03-17] MEDS ORDERED: Pantoprazole 40 mg EC Tab PO SCH (10:00)
--- NOTE | 2017-03-17 20:17 | CP.PCM.DIS ---
Provider - Provider Date of Admission: 03/15/17 14:56 Attending physician: Roque Ocampo Jr, MD Consults: Infectious Disease, Dr. Sorenson Time Spent in preparation of Discharge (in minutes): 33 Hospital Course - Lab Results Lab Results: Micro Results 03/16/17 16:25 Nose MRSA Culture - Final MRSA DETECTED 03/15/17 Unknown Urine,Iniguez Urine Culture - Final No Growth (<1,000 CFU/ML) 03/15/17 17:50 Blood Blood Culture - Preliminary NO GROWTH AFTER 24 HOURS 03/15/17 18:20 Blood Blood Culture - Preliminary NO GROWTH AFTER 24 HOURS 03/15/17 21:54 Nose MRSA Culture (Admit) - Final MRSA DETECTED Most Recent Lab Values WBC 17.1 K/uL (4.8-10.8) H 03/16/17 06:41 RBC 3.61 Mil/uL (4.40-5.90) L 03/16/17 06:41 Hgb 9.2 g/dL (12.0-18.0) L 03/16/17 06:41 Hct 29.6 % (35.0-51.0) L 03/16/17 06:41 MCV 81.9 fL (80.0-94.0) 03/16/17 06:41 MCH 25.6 pg (27.0-31.0) L 03/16/17 06:41 MCHC 31.2 g/dL (33.0-37.0) L 03/16/17 06:41 RDW 16.2 % (11.5-14.5) H 03/16/17 06:41 Plt Count 272 K/uL (130-400) 03/16/17 06:41 MPV 8.3 fL (7.2-11.7) 03/16/17 06:41 Neut % (Auto) 84.7 % (50.0-75.0) H 03/16/17 06:41 Lymph % (Auto) 7.2 % (20.0-40.0) L 03/16/17 06:41 [place] % (Auto) 6.8 % (0.0-10.0) 03/16/17 06:41 Eos % (Auto) 0.8 % (0.0-4.0) 03/16/17 06:41 Baso % (Auto) 0.5 % (0.0-2.0) 03/16/17 06:41 Neut # 14.5 K/uL (1.8-7.0) H 03/16/17 06:41 Lymph # 1.2 K/uL (1.0-4.3) 03/16/17 06:41 [place] # 1.2 K/uL (0.0-0.8) H 03/16/17 06:41 Eos # 0.1 K/uL (0.0-0.7) 03/16/17 06:41 Baso # 0.1 K/uL (0.0-0.2) 03/16/17 06:41 Neutrophils % (Manual) 80 % (50-75) H 03/16/17 06:41 Band Neutrophils % 3 % (0-2) H 03/16/17 06:41 Lymphocytes % (Manual) 10 % (20-40) L 03/16/17 06:41 Monocytes % (Manual) 7 % (0-10) 03/16/17 06:41 Basophils % (Manual) 1 % (0-2) 03/15/17 12:45 Platelet Estimate Normal (NORMAL) 03/16/17 06:41 Polychromasia Slight 03/16/17 06:41 Hypochromasia (manual) Slight 03/16/17 06:41 Anisocytosis (manual) Slight 03/16/17 06:41 Microcytosis (manual) Slight 03/16/17 06:41 PT 17.2 SECONDS (9.7-12.2) H 03/16/17 06:41 INR 1.5 03/16/17 06:41 APTT 36 SECONDS (21-34) H 03/16/17 06:41 VBG pH 7.34 (7.32-7.43) 03/15/17 17:45 VBG pCO2 57 mmHg (40-60) 03/15/17 17:45 VBG Total CO2 32.5 mmol/L (22-28) H 03/15/17 17:45 VBG O2 Sat (Calc) 59.4 % (40-65) 03/15/17 17:45 VBG Base Excess 3.5 mmol/L (0.0-2.0) H 03/15/17 17:45 VBG Potassium 4.8 mmol/L (3.6-5.2) 03/15/17 17:45 Sodium 129.0 mmol/l (132-148) L 03/15/17 17:45 Chloride 97.0 mmol/L (98-107) L 03/15/17 17:45 Glucose 137 mg/dl (75-110) H 03/15/17 17:45 Lactate 1.9 mmol/L (0.7-2.1) 03/15/17 17:45 Sodium 130 mmol/L (132-148) L 03/16/17 06:36 Potassium 4.4 mmol/L (3.6-5.2) 03/16/17 06:36 Chloride 94 mmol/L (98-107) L 03/16/17 06:36 Carbon Dioxide 29 mmol/L (22-30) 03/16/17 06:36 Anion Gap 11 (10-20) 03/16/17 06:36 BUN 43 mg/dL (9-20) H 03/16/17 06:36 Creatinine 1.8 MG/DL (0.8-1.5) H 03/16/17 06:36 Est GFR ( Amer) 49 03/16/17 06:36 Est GFR (Non-Af Amer) 40 03/16/17 06:36 Random Glucose 117 mg/dL (75-110) H 03/16/17 06:36 Lactic Acid 1.3 mmol/L (0.7-2.1) 03/15/17 21:50 Calcium 7.7 mg/dl (8.6-10.4) L 03/16/17 06:36 Total Bilirubin 0.4 mg/dL (0.2-1.3) 03/16/17 06:36 AST 81 U/L (17-59) H D 03/16/17 06:36 ALT 27 U/L (21-72) 03/16/17 06:36 Alkaline Phosphatase 97 U/L (38-126) 03/16/17 06:36 Total Creatine Kinase 1410 U/L (55-170) H 03/15/17 12:45 CK-MB (Mass) 6.65 ng/mL (0.0-3.38) H 03/15/17 12:45 Troponin I 0.0690 ng/mL (0.00-0.120) 03/15/17 12:45 NT-Pro-B Natriuret Pep 7420 pg/mL (0-450) H 03/15/17 12:45 Total Protein 7.5 g/dL (6.3-8.3) 03/16/17 06:36 Albumin 2.8 g/dL (3.5-5.0) L 03/16/17 06:36 Globulin 4.7 gm/dL (2.2-3.9) H 03/16/17 06:36 Albumin/Globulin Ratio 0.6 (1.0-2.1) L 03/16/17 06:36 Venous Blood Potassium 4.8 mmol/L (3.6-5.2) 03/15/17 17:45 Urine Color Triny (YELLOW) 03/15/17 18:39 Urine Clarity Hazy (Clear) 03/15/17 18:39 Urine pH 5.0 (5.0-8.0) 03/15/17 18:39 Ur Specific [place] 1.019 (1.003-1.030) 03/15/17 18:39 Urine Protein 1+ mg/dL (NEGATIVE) H 03/15/17 18:39 Urine Glucose (UA) Normal mg/dL (Normal) 03/15/17 18:39 Urine Ketones Negative mg/dL (NEGATIVE) 03/15/17 18:39 Urine Blood Negative (NEGATIVE) 03/15/17 18:39 Urine Nitrate Negative (NEGATIVE) 03/15/17 18:39 Urine Bilirubin Negative (NEGATIVE) 03/15/17 18:39 Urine Urobilinogen 2.0 mg/dL (0.2-1.0) 03/15/17 18:39 Ur Leukocyte Esterase Neg [place]/uL (Negative) 03/15/17 18:39 Urine WBC (Auto) 1 /hpf (0-5) 03/15/17 18:39 Urine RBC (Auto) 1 /hpf (0-3) 03/15/17 18:39 Ur Squamous Epith Cells < 1 /hpf (0-5) 03/15/17 18:39 Urine Bacteria Rare (<OCC) 03/15/17 18:39 Urine Opiates Screen Negative (NEGATIVE) 03/15/17 18:39 Urine Methadone Screen Negative (NEGATIVE) 03/15/17 18:39 Ur Barbiturates Screen Negative (NEGATIVE) 03/15/17 18:39 Ur Phencyclidine Scrn Negative (NEGATIVE) 03/15/17 18:39 Ur Amphetamines Screen Negative (NEGATIVE) 03/15/17 18:39 U Benzodiazepines Scrn Positive (NEGATIVE) 03/15/17 18:39 U Oth Cocaine Metabols Negative (NEGATIVE) 03/15/17 18:39 U Cannabinoids Screen Negative (NEGATIVE) 03/15/17 18:39 Influenza Typ A,B (EIA) Negative for flu a/b (NEGATIVE) 03/15/17 21:54 - Hospital Course Hospital Course: HPI: Pt is a 46M with PMH of HTN, CAD, CHF, Afib on coumadin, COPD, ARLENE, Bipolar disorder, Chronic back pain, herniated discs, who presented to [facility] for fever, chest pain and SOB. Patient was at the [facility] earlier when he spiked a fever. longterm notified Dr. Ocampo who then instructed them to sent him to the ED. Patient was discharged last week from hospital with a PICC line and on IV vancomycin for MRSA infection. Upon interview, patient was extremely drowsy and could not provide a complete history. Patient was oriented to person and place but not time. He became very agitated and was acting hostile toward staff and security. ROS unobtainable due to agitation and lethargy. Hospital Course: Pt was admitted to ICU for hypotension secondary to sepsis. Pt was recently discharged from the hospital last week where he was treated for a splenic hematoma and bacteremia. Pt received a PICC line and was sent to [facility]. Pt was tachycardic. WBC was 17.1 Blood cultures, urine cultures, and sputum cultures were sent. Pt was started on vancomycyn, avelox, and maxipime. Infectious Disease, Dr. Sorenson, was consulted. Home hypertension medications were held due to hypotension. Pt was aggressive and hostile towards staff. Pt signed out against medical advice despite being warned of risks. Pt was alert, awake, and oriented x 3. Discharge Exam - Head Exam Head Exam: ATRAUMATIC, NORMOCEPHALIC - Eye Exam Eye Exam: EOMI, PERRL - ENT Exam ENT Exam: Mucous Membranes Moist. absent: Mucous Membranes Dry - Respiratory Exam Respiratory Exam: Decreased Breath Sounds. absent: Rales, Rhonchi - Cardiovascular Exam Cardiovascular Exam: +S1, +S2 Additional comments: Distant heart sounds - GI/Abdominal Exam GI & Abdominal Exam: Distended, Firm, Tenderness. absent: Guarding - Extremities Exam Extremities exam: full ROM - Neurological Exam Neurological exam: Alert, Oriented x3 - Psychiatric Exam Psychiatric exam: Normal Affect, Normal Mood - Skin Skin Exam: Rash, Vesicles Discharge Plan - Follow Up Plan Condition: SERIOUS Disposition: AGAINST MEDICAL ADVICE
--- NOTE | 2017-03-19 02:34 | PCM.HF ---
Heart Failure Core Measure - Heart Failure Ejection Fraction: Less Than 40 % DONNY Inhibitor Prescribed: Yes Beta-Yonis Prescribed: Carvedilol Angiotensin II Receptor Yonis Prescribed: No Contraindication/Reason for not providing: on Donny-Inhibitor Aldosterone Antagonist Prescribed: No Contraindication/Reason for not providing: on Hydralazine Hydralazine Nitrate Prescribed: Yes
[2017-03-22 10:14] VITALS: O2SAT 94
== END 2017-03-17 08:20 | disposition left against medical advice (07) | DRG 871 ==
LOC: C.ER 11:55 → C.6T 14:56 → C.9E 16:20 → C.9I 19:53 → C.5T 03-16 10:25
PROVIDERS: ADMIT Internal Medicine; ATTEND Internal Medicine
DX: A41.9 Sepsis, unspecified organism (principal); J18.9 Pneumonia, unspecified organism; N17.9 Acute kidney failure, unspecified; I11.0 Hypertensive heart disease with heart failure; I50.9 Heart failure, unspecified; R65.20 Severe sepsis without septic shock; J45.909 Unspecified asthma, uncomplicated; J43.9 Emphysema, unspecified; F31.9 Bipolar disorder, unspecified; I25.10 Atherosclerotic heart disease of native coronary artery without angina pectoris; E78.00 Pure hypercholesterolemia, unspecified; E66.01 Morbid (severe) obesity due to excess calories; G47.30 Sleep apnea, unspecified; G89.29 Other chronic pain; F14.10 Cocaine abuse, uncomplicated; M54.5 Low back pain; Z79.01 Long term (current) use of anticoagulants; Z95.5 Presence of coronary angioplasty implant and graft; Z87.891 Personal history of nicotine dependence

== ENCOUNTER 2017-03-25 07:51 | Inpatient (IN) | payer MEDICARE, MEDICAID ==
[2017-03-25 07:52] VITALS: BMI 54.5
--- NOTE | 2017-03-25 08:32 | C.PDOC ---
History Of Present Illness 38-year-old male, PMHx includes CAD (s/p 4 stents), Anxiety, Asthma, Atrial Fibrillation, Bipolar Disorder, CHF, COPD, Depression, Emphysema, Hypertension, Hypercholesterolemia, Peripheral Edema, Sleep Apnea, and Chronic Pain, presents to the emergency department with complaints of shortness of breath, that is associated with increasing abdominal girth and lower extremity swelling. Patient denies chest pain, nausea/vomiting, diarrhea, fevers, chills, headache, dizziness, or any other associated symptoms. No other complaints at this time. Time Seen by Provider: 03/25/17 07:55 Chief Complaint (Nursing): Shortness Of Breath History Per: Patient History/Exam Limitations: no limitations Onset/Duration Of Symptoms: Days Current Symptoms Are (Timing): Still Present Past Medical History Reviewed: Historical Data, Nursing Documentation, Vital Signs Vital Signs: Last Vital Signs Temp 98.3 F 03/25/17 08:00 Pulse 108 H 03/25/17 08:56 Resp 20 03/25/17 08:56 BP 113/95 H 03/25/17 08:56 Pulse Ox 98 03/25/17 08:56 - Medical History PMH: Anxiety, Asthma, Atrial Fibrillation, Back Problems, Bipolar Disorder, CAD , Cardia Arrhythmia, CHF, COPD, Depression, Emphysema, HTN, Hypercholesterolemia , Peripheral Edema, Sleep Apnea, Chronic Pain (Lower Back Pain) Denies: Chronic Kidney Disease Surgical History: Appendectomy (2008), Coronary Stent (2008 - 2012 4 stents) - [facility] Procedures CORONAR ARTERIOGR-2 CATH (07/06/13) DRAINAGE OF SPLEEN, PERCUTANEOUS APPROACH (03/05/17) INJECT/INFUSE NEC (02/22/14) LEFT HEART CARDIAC CATH (07/06/13) LT HEART ANGIOCARDIOGRAM (07/06/13) NEBULIZER THERAPY (03/28/14) NON-INVASIVE MECHANICAL VENTILATION (03/26/15) TRANSFUSE NONAUT FROZEN PLASMA IN PERIPH VEIN, PERC (02/21/17) Family History: States: Unknown Family Hx, CAD, Diabetes - Social History Hx Tobacco Use: Yes Hx Alcohol Use: No Hx Substance Use: Yes - Immunization History Hx Tetanus Toxoid Vaccination: Yes Hx Influenza Vaccination: Yes Hx Pneumococcal Vaccination: Yes (08/2014) Review Of Systems Except As Marked, All Systems Reviewed And Found Negative. Constitutional: Negative for: Fever, Chills Cardiovascular: Negative for: Chest Pain Respiratory: Positive for: Shortness of Breath Gastrointestinal: Positive for: Abdominal Pain (increase in girth). Negative for: Nausea, Vomiting Musculoskeletal: Negative for: Back Pain Neurological: Negative for: Weakness, Numbness, Headache, Dizziness Physical Exam - Physical Exam Appears: Non-toxic, No Acute Distress, Other (obese) Skin: Warm, Dry, No Rash Head: Atraumatic, Normacephalic Eye(s): bilateral: Normal Inspection, PERRL Nose: Normal Oral Mucosa: Moist Lips: Normal Appearing Neck: Normal ROM Chest: Symmetrical Cardiovascular: Rhythm Regular (tachycardic) Respiratory: No Accessory Muscle Use, Rales (bibasilar) Gastrointestinal/Abdominal: Tenderness, Distention, No Guarding, No Rebound Extremity: Pedal Edema (+1 B/L) ED Course And Treatment - Laboratory Results Result Diagrams: 03/25/17 08:31 03/25/17 08:31 O2 Sat by Pulse Oximetry: 95 Medical Decision Making Medical Decision Making: Impression: 46y/o M, comes in w. SOB and abdominal distention x1 day Prior Visits Notes and records from previous visits were reviewed. patients las ED evaluation on 03/15/17; Pt was admitted for Pneumonia, Dyspnea, Chest pain, CHF (congestive heart failure), ARF (acute renal failure), Congestive heart failure, and Chest pain. Plan: * BNP, CMP, UDS, Trop I * CBC, PTT, PT * Chest X-Ray * Lasix * Urinalysis * Reassess and Disposition * Spoke with Dr.. Ocampo and patient endorsed to resident Disposition Discussed With .: Roque Ocampo Jr. Doctor Will See Patient In The: Hospital Counseled Patient/Family Regarding: Studies Performed - Disposition Disposition: HOSPITALIZED Disposition Time: 09:02 Condition: GUARDED - Clinical Impression Clinical Impression: CHF (congestive heart failure), Anxiety - Scribe Statement The provider has reviewed the documentation as recorded by the Galindo Flaherty All medical record entries made by the Scribe were at my direction and personally dictated by me. I have reviewed the chart and agree that the record accurately reflects my personal performance of the history, physical exam, medical decision making, and the department course for this patient. I have also personally directed, reviewed, and agree with the discharge instructions and disposition. Decision To Admit - Pt Status Changed To: Hospital Disposition Of: Observation - . Bed Request Type: Telemetry Patient Diagnosis: CHF (congestive heart failure), Anxiety
[2017-03-25 08:46] LABS: BASO # 0.1 K/uL (0.0-0.2); EOS # 0.2 K/uL (0.0-0.7); EOS % 1.9 % (0.0-4.0); HEMATOCRIT 36.3 % (35.0-51.0); LYMPH # 1.7 K/uL (1.0-4.3); LYMPH % 15.7 % (20.0-40.0); MEAN CELL VOLUME 83.3 fL (80.0-94.0); MEAN CORPUSCULAR HEMOGLOBIN 25.7 pg (27.0-31.0); MEAN CORPUSCULAR HGB CONC 30.8 g/dL (33.0-37.0); MEAN PLATELET VOLUME 7.1 fL (7.2-11.7); MONO % 9.4 % (0.0-10.0); NRBC % 0.1 % (0.0-2.0); RED CELL DISTRIBUTION WIDTH 17.4 % (11.5-14.5); WHITE BLOOD COUNT 10.6 K/uL (4.8-10.8)
[2017-03-25 08:49] LABS: INR 1.4
[2017-03-25 08:54] LABS: CHLORIDE 100 mmol/L (98-107); POTASSIUM 3.9 mmol/L (3.6-5.2); SODIUM 138 mmol/L (132-148)
[2017-03-25 08:56] LABS: AST/SGOT 36 U/L (17-59); BILIRUBIN,TOTAL 0.3 mg/dL (0.2-1.3); CARBON DIOXIDE 27 mmol/L (22-30); GFR AFRICAN-AMERICAN > 60; TOTAL PROTEIN 8.4 g/dL (6.3-8.3)
[2017-03-25 08:57] LABS: ALB/GLOB RATIO 0.6 (1.0-2.1); ALKALINE PHOSPHATASE 67 U/L (38-126); ALT/SGPT 12 U/L (21-72); BLOOD UREA NITROGEN 17 mg/dL (9-20); CALCIUM 8.2 mg/dl (8.6-10.4); GLUCOSE,RANDOM 94 mg/dL (75-110)
[2017-03-25 08:59] LABS: URINE BILIRUBIN NEGATIVE (NEGATIVE); URINE BLOOD NEGATIVE (NEGATIVE); URINE COLOR Straw (YELLOW); URINE GLUCOSE (UA) NORMAL (Normal); URINE HYALINE CAST 0-2 /lpf (0-2); URINE KETONE NEGATIVE (NEGATIVE); URINE LEUKOCYTE ESTERASE NEG Leu/uL (Negative); URINE PROTEIN NEGATIVE (NEGATIVE); URINE UROBILINOGEN NORMAL mg/dL (0.2-1.0); WBC URINE 1 /hpf (0-5)
--- NOTE | 2017-03-25 09:36 | RAD ---
HISTORY: sob COMPARISON: 03/15/17 TECHNIQUE: Chest PA and lateral FINDINGS: LUNGS: Mild increased pulmonary vasculature suggesting underlying mild pulmonary edema/CHF. Re- demonstrated is a small left lower lobe atelectasis and or infiltrate with small effusion PLEURA: No significant pleural effusion identified. No pneumothorax apparent. CARDIOVASCULAR: Normal. OSSEOUS STRUCTURES: No significant abnormalities. VISUALIZED UPPER ABDOMEN: Normal. OTHER FINDINGS: None. IMPRESSION: No cardiomegaly with mild central pulmonary vascular congestion. Re- demonstrated is a small left lower lobe atelectasis and or infiltrate with small effusion
--- NOTE | 2017-03-25 09:57 | CP.PCM.HP ---
History of Present Illness - History of Present Illness History of Present Illness: CC: "SOB and abdominal pain" 46M with PMH of HTN, CAD, CHF, Afib on coumadin, COPD, ARLENE, Bipolar disorder, Chronic back pain, herniated discs, presenting to [facility] for SOB and abdominal pain. He stated that his symptoms have been present for 2 days. He stated a sudden onset and said symptoms have gotten progressively worse. Patient recently signed out AMA from hospital while being treated for severe hypotension, sepsis, and acute CHF exacerbation. He stated that he can barely walk 10 feet before getting short of breath. He rated his abdominal pain as 8/ 10 in severity. He described it as a constant, cramping and dull, mainly located in the LUQ without radiation. Movement and palpation makes the abdominal pain worse while exertion exacerbates his SOB. Nothing alleviates the pain or SOB. patient sleeps with 4 pillows at night. Admits to weakness, fatigue , [place], orthopnea, abdominal pain, and nausea. Denies fever/chills, cp, palpitations, vomiting/diarrhea, incontinence, hemoptysis, hemetemesis, hematochezia, numbness/tingling. PMH: HTN, CAD, CHF, Afib, COPD, ARLENE, Herniated discs L-spine, Bipolar/Depression , Asthma Meds: Diltiazem, ASA, Carvedilol, warfarin, digoxin, enalapril, percocet, cyclobenzaprine, HCTZ, k-dur, Lasix, Albuterol, Prozac, Simvastatin, Montelukast , Tizanidine, Xanax, Gabapentin. Allergy: Apixaban, clopidogrel, enoxaparin, Morphine PSH: Appendectomy (2008), Coronary stents x4 ([id number]) Hosp: multiple admissions recently for SOB, splenic hematoma and bacteremia FH: Did not provide Social: Admits tobacco use, does not quantify. Social alcohol use; Admits to Cocaine use Present on Admission - Present on Admission Any Indicators Present on Admission: No History of DVT/PE: No History of Uncontrolled Diabetes: No Urinary Catheter: No Decubitus Ulcer Present: No Review of Systems - Review of Systems All systems: reviewed and no additional remarkable complaints except (as per HPI ) Past Patient History - Infectious Disease Hx of Infectious Diseases: None - Tetanus Immunizations Tetanus Immunization: Up to Date - Past Medical History & Family History Past Medical History?: Yes - Past Social History Smoking Status: Former Smoker - CARDIAC Hx Atrial Fibrillation: Yes Hx Cardia Arrhythmia: Yes Hx Congestive Heart Failure: Yes Hx Hypercholesterolemia: Yes Hx Hypertension: Yes Hx Peripheral Edema: Yes - PULMONARY Hx Asthma: Yes Hx Chronic Obstructive Pulmonary Disease (COPD): Yes Hx Emphysema: Yes Hx Sleep Apnea: Yes - NEUROLOGICAL Hx Neurological Disorder: No - HEENT Hx HEENT Problems: No - RENAL Hx Chronic Kidney Disease: No - ENDOCRINE/METABOLIC Hx Endocrine Disorders: No - HEMATOLOGICAL/ONCOLOGICAL Hx Blood Disorders: Yes Other/Comment: MRSA Hx - INTEGUMENTARY Hx Dermatological Problems: No - MUSCULOSKELETAL/RHEUMATOLOGICAL Hx Musculoskeletal Disorders: Yes - GASTROINTESTINAL Hx Gastrointestinal Disorders: Yes Other/Comment: Splenic Hematoma - GENITOURINARY/GYNECOLOGICAL Hx Genitourinary Disorders: No - PSYCHIATRIC Hx Anxiety: Yes Hx Bipolar Disorder: Yes Hx Depression: Yes Hx Substance Use: Yes - SURGICAL HISTORY Hx Appendectomy: Yes (2008) Hx Coronary Stent: Yes (2008 - 2012 4 stents) - ANESTHESIA Hx Anesthesia: Yes Hx Anesthesia Reactions: No Hx Malignant Hyperthermia: No Meds Allergies/Adverse Reactions: Allergies Allergy/AdvReac Type Severity Reaction Status Date / Time apixaban [From Eliquis] Allergy Verified 03/25/17 08:05 clopidogrel bisulfate Allergy Verified 03/25/17 08:05 [From Plavix] enoxaparin sodium Allergy Verified 03/25/17 08:05 [From Lovenox] morphine Allergy Verified 03/25/17 08:05 Physical Exam - Constitutional Appears: No Acute Distress - Head Exam Head Exam: ATRAUMATIC, NORMOCEPHALIC - Eye Exam Eye Exam: EOMI, Normal appearance Pupil Exam: PERRL - ENT Exam ENT Exam: Mucous Membranes Moist - Neck Exam Neck exam: Positive for: Normal Inspection - Respiratory Exam Respiratory Exam: Rales, Wheezes, NORMAL BREATHING PATTERN. absent: Accessory Muscle Use, Respiratory Distress - Cardiovascular Exam Cardiovascular Exam: Tachycardia, +S1, +S2 - GI/Abdominal Exam GI & Abdominal Exam: Distended, Normal Bowel Sounds, Organomegaly, Soft, Tenderness (LUQ). absent: Firm, Guarding, Rebound, Rigid - Extremities Exam Extremities exam: Positive for: normal capillary refill, pedal edema, pedal pulses present. Negative for: calf tenderness - Back Exam Back exam: absent: CVA tenderness (L), CVA tenderness (R) - Neurological Exam Neurological exam: Alert, CN II-XII Intact, Oriented x3 - Psychiatric Exam Psychiatric exam: Normal Affect, Normal Mood - Skin Skin Exam: Dry, Intact, Normal Color, Warm Results - Vital Signs Recent Vital Signs: Last Vital Signs Temp 98.3 F 03/25/17 08:00 Pulse 108 H 03/25/17 08:56 Resp 20 03/25/17 08:56 BP 113/95 H 03/25/17 08:56 Pulse Ox 95 03/25/17 09:05 - Labs Result Diagrams: 03/25/17 08:31 03/25/17 08:31 Assessment & Plan - Assessment and Plan (Free Text) Plan: 1. Abdominal Pain Admit to telemetry CT abd/pelvis w IV & PO contrast: Marked decrease size splenic hematoma with however air is present in the capsule and extending inferiorly into a the mid presumed loculated hematoma component. The smaller component also abuts proximal descending colon and it is likely that there is a fistulous communication between the hematoma collection and bowel unless there has been any recent interventional procedure. Surrounding infiltration changes. Also that there appear to be a few scattered bubbles of air outside the confines of the splenic capsule suggesting the free air is well (see full report) ID consult, Dr. Sorenson, help appreciated Vascular consult, Dr. Senior, help appreciated CXR: No cardiomegaly with mild central pulmonary vascular congestion. Re- demonstrated is a small left lower lobe atelectasis and or infiltrate with small effusion (see full report) Vancomycin 1 gm IVPB Q12H Blood culture Dilaudid 2 mg IVP Q4H PRN Percocet 5/325 mg 1 tab PO Q6H PRN for breakthrough pain 2. COPD CXR: No cardiomegaly with mild central pulmonary vascular congestion. Re- demonstrated is a small left lower lobe atelectasis and or infiltrate with small effusion (see full report) Vancomycin 1 gm IVPB Q12H O2 2LNC Duonebs Singulair 10 mg PO HS Ventolin 3. CHF CXR: No cardiomegaly with mild central pulmonary vascular congestion. Re- demonstrated is a small left lower lobe atelectasis and or infiltrate with small effusion (see full report) Digoxin 0.125 mg PO daily Lasix 40 mg IVP BID hold home medications I's & O's daily weight 4. AFIB Digoxin 0.125 mg PO daily hold coumadin f/u Coags 5. HTN Lasix 40 mg IVP BID hold home medications 6. CAD hold home medications 7. ARLENE CPAP at night 8. Prophylactic Measures Pneumoccal vaccines Protonix 40 mg PO daily zofran PRN Nicotine patch Accuchecks ISS
[2017-03-25] MEDS: Digoxin 125 mcg (0.125 mg) Tab PO SCH (10:41)
[2017-03-25] MEDS: Pantoprazole 40 mg EC Tab PO SCH (10:41)
[2017-03-25] MEDS: Albuterol HFA 90 mcg/actuation (8 g) IH SCH (10:41)
[2017-03-25] MEDS: (Novolin R) Insulin Human Regular 100 units/ml vial SC SCH ×3 (11:35→22:45)
[2017-03-25] MEDS ORDERED: (Novolin R) Insulin Human Regular 100 units/ml vial ONE (11:35)
[2017-03-25] MEDS ORDERED: Iodixanol 320 mg/ml 150 ml Bottle IV ONE (12:22)
[2017-03-25 14:38] VITALS: RESP 20
--- NOTE | 2017-03-25 14:54 | CT ---
PROCEDURE: CT Abdomen and Pelvis with contrast HISTORY: abd pain, distention, hx of splenic hematoma. There has been a prior drainage of a hematoma 03/06/2017 with reaccumulation. However recent drainage procedures as per resident electronic data interchange specialist Dr. Giraldo COMPARISON: Comparison made with CT scan abdomen pelvis 03/09/2017. TECHNIQUE: Contrast dose: 100cc Radiation dose: Total exam DLP = 1112.72. MGy-cm. This CT exam was performed using one or more of the following dose reduction techniques: Automated exposure control, adjustment of the mA and/or kV according to patient size, and/or use of iterative reconstruction technique. FINDINGS: LOWER THORAX: Heart is enlarged. Small pericardial effusion. Mild bibasilar atelectasis and small left-sided effusion. LIVER: Unremarkable. No gross lesion or ductal dilatation. GALLBLADDER AND BILE DUCTS: Unremarkable. PANCREAS: Unremarkable. No gross lesion or ductal dilatation. SPLEEN: Old decrease size left large left lateral splenic subcapsular hematoma with the some small amount of residual at hemorrhage and a moderate amount of air within the capsule. Air extends inferiorly presumably into a previously noted hemorrhagic filled presumed loculated component more inferiorly located however this component abuts adjacent proximal descending colon and it is possible that there may have been some decompression of hematoma through fistulous communication to adjacent proximal descending colon. Infiltration changes are seen about the spleen and residual inferiorly located loculated component. . There also appears to be a few scattered bubbles of free air outside the confines of the splenic capsule. ADRENALS: No adrenal mass. KIDNEYS AND URETERS: Kidneys exhibit symmetric nephrograms. No evidence of nephrolithiasis or hydronephrosis. VASCULATURE: Unremarkable. No aortic aneurysm. BOWEL: Unremarkable. No obstruction. No gross mural thickening. APPENDIX: Normal appendix. PERITONEUM: No evidence of acute appendicitis LYMPH NODES: Few small to medium-sized nonspecific lymph nodes within the pelvic sidewall and retroperitoneum. BLADDER: Unremarkable. REPRODUCTIVE: Urinary bladder is physiologically distended. No evidence of intraluminal urinary bladder calculi. BONES: Osseous structures appear grossly intact however multilevel degenerative spondylosis of the lower thoracic and lumbar spine again noted. . OTHER FINDINGS: None. IMPRESSION: Marked decrease size splenic hematoma with however air is present in the capsule and extending inferiorly into a the mid presumed loculated hematoma component. The smaller component also abuts proximal descending colon and it is likely that there is a fistulous communication between the hematoma collection and bowel unless there has been any recent interventional procedure. Clinic correlation recommended. Surrounding infiltration changes. Also that there appear to be a few scattered bubbles of air outside the confines of the splenic capsule suggesting the free air is well. These findings were discussed with Dr. Giraldo and Dr Ocampo approximately 2:49 p.m. with written down and read back verification. See above discussion for additional findings and details
[2017-03-25] MEDS ORDERED: Oxycodone/Acetaminophen 5/325 mg Tab PO PRN (15:45)
--- NOTE | 2017-03-25 16:08 | CP.PCM.CON ---
History of Present Illness - History of Present Illness History of Present Illness: Vascular Surgery Dr. Senior HPI: 46 y/o M w/ PMHx of HTN, CAD, CHF, Afib, COPD, ARLENE, presents to the ED w/ CC of "water in the stomach." Pt states that he has been drinking too much water and not urinating enough which caused his legs to swell and his stomach to fill w/ water. Pt states that, usually when this happens, he pt takes a double dose of Lasix to remove the excess fluid. However, this time, pt had no increased urination and no relief of symptoms. Pt reports abd discomfort described as doing too many crunches as well as SOB, worse w/ exertion. Pt admits to CP, LE swelling. Pt denies F/C, N/V, D/C, melena, hematochezia. In the ED pt received dose of IV Lasix which has relived the pt's CP and improved his SOB and LE swelling. CT abd/pelvis w/ PO &IV contrast was ordered. Pt refused to drink the contrast due to nausea. IV only was performed. shows possible tracking from old loculated hematoma to descending colon. Surgery was consulted to evaluate the splenic hematoma w/ possible enterosplenic fistula. PMHx: HTN, CAD, CHF, Afib, COPD, ARLENE, Splenic hematoma, herniated lumbar discs, bipolar/depression Meds: reviewed in chart Allergies: reviewed in chart PSHx: appendectomy, coronary stents x4 SHx: former smoker, uses cocaine Review of Systems - Review of Systems All systems: reviewed and no additional remarkable complaints except (see HPI) Past Patient History - Infectious Disease Hx of Infectious Diseases: None - Tetanus Immunizations Tetanus Immunization: Up to Date - Past Medical History & Family History Past Medical History?: Yes - Past Social History Smoking Status: Former Smoker - CARDIAC Hx Atrial Fibrillation: Yes Hx Cardia Arrhythmia: Yes Hx Congestive Heart Failure: Yes Hx Hypercholesterolemia: Yes Hx Hypertension: Yes Hx Peripheral Edema: Yes Other/Comment: CAD - PULMONARY Hx Asthma: Yes Hx Chronic Obstructive Pulmonary Disease (COPD): Yes Hx Emphysema: Yes Hx Sleep Apnea: Yes - NEUROLOGICAL Hx Neurological Disorder: No - HEENT Hx HEENT Problems: No - RENAL Hx Chronic Kidney Disease: No - ENDOCRINE/METABOLIC Hx Endocrine Disorders: No - HEMATOLOGICAL/ONCOLOGICAL Hx Blood Disorders: No - INTEGUMENTARY Hx Dermatological Problems: No - MUSCULOSKELETAL/RHEUMATOLOGICAL Hx Musculoskeletal Disorders: Yes Hx Back Pain: Yes Hx Herniated Disk: Yes Other/Comment: L3,4,5 herniated disk - GASTROINTESTINAL Hx Gastrointestinal Disorders: Yes Other/Comment: Splenic Hematoma - GENITOURINARY/GYNECOLOGICAL Hx Genitourinary Disorders: No - PSYCHIATRIC Hx Anxiety: Yes Hx Bipolar Disorder: Yes Hx Substance Use: No - SURGICAL HISTORY Hx Appendectomy: Yes (2008) Hx Coronary Stent: Yes (2008 - 2012 4 stents) - ANESTHESIA Hx Anesthesia: Yes Hx Anesthesia Reactions: No Hx Malignant Hyperthermia: No Meds Allergies/Adverse Reactions: Allergies Allergy/AdvReac Type Severity Reaction Status Date / Time apixaban [From Eliquis] Allergy Verified 03/25/17 08:05 clopidogrel bisulfate Allergy Verified 03/25/17 08:05 [From Plavix] enoxaparin sodium Allergy Verified 03/25/17 08:05 [From Lovenox] morphine Allergy Verified 03/25/17 08:05 - Medications Medications: Current Medications Albuterol (Ventolin Hfa 90 Mcg/Actuation (8 G)) 2 puff IH BID [facility] Last Admin: 03/25/17 10:41 Dose: 2 puff Albuterol/Ipratropium (Duoneb 3 Mg/0.5 Mg (3 Ml) Ud) 3 ml INH RQ6 [facility] Digoxin (Lanoxin) 0.125 mg PO DAILY [facility] Last Admin: 03/25/17 10:41 Dose: 0.125 mg Fluoxetine HCl (Prozac) 40 mg PO DAILY [facility] Last Admin: 03/25/17 10:41 Dose: 40 mg Furosemide (Lasix) 40 mg IVP BID [facility] Hydromorphone HCl (Dilaudid) 2 mg IVP Q4H PRN PRN Reason: Pain, moderate (4-7) Vancomycin HCl 1 gm/ Sodium (Chloride) 250 mls @ 166.7 mls/hr IVPB Q12H [facility] Insulin Human Regular (Novolin R) 0 unit SC ACHS [facility] PRN Reason: Protocol Last Admin: 03/25/17 11:35 Dose: 2 unit Ketorolac Tromethamine (Toradol) 30 mg IVP Q6 PRN PRN Reason: Pain, moderate (4-7) Last Admin: 03/25/17 14:02 Dose: 30 mg Montelukast Sodium (Singulair) 10 mg PO HS [facility] Ondansetron HCl (Zofran Inj) 4 mg IVP Q6 PRN PRN Reason: Nausea/Vomiting Oxycodone/Acetaminophen (Percocet 5/325 Mg Tab) 1 tab PO Q6H PRN PRN Reason: Pain, severe (8-10) Stop: 03/28/17 15:46 Pantoprazole Sodium (Protonix Ec Tab) 40 mg PO DAILY [facility] Last Admin: 03/25/17 10:41 Dose: 40 mg Pneumococcal Polyvalent Vaccine (Prevnar 13) 0.5 ml IM .ONCE ONE Stop: 03/28/17 10:01 Pneumococcal Polyvalent Vaccine (Pneumovax 23 Vaccine) 0.5 ml IM .ONCE ONE Stop: 03/28/17 10:01 Physical Exam - Constitutional Appears: Non-toxic, No Acute Distress - Head Exam Head Exam: NORMAL INSPECTION - Eye Exam Eye Exam: Normal appearance - ENT Exam ENT Exam: Mucous Membranes Moist - Respiratory Exam Respiratory Exam: Clear to Auscultation Bilateral, NORMAL BREATHING PATTERN. absent: Accessory Muscle Use, Respiratory Distress - Cardiovascular Exam Cardiovascular Exam: Irregular Rhythm, +S1, +S2. absent: Bradycardia, Tachycardia - GI/Abdominal Exam GI & Abdominal Exam: Distended (obese), Soft, Tenderness (minimal TTP LUQ/LLQ). absent: Guarding, Rebound, Rigid - Extremities Exam Extremities exam: Positive for: normal capillary refill, pedal edema (2+ pitting edema). Negative for: tenderness - Neurological Exam Neurological exam: Alert, Oriented x3 - Psychiatric Exam Psychiatric exam: Normal Affect, Normal Mood - Skin Skin Exam: Dry, Intact, Normal Color (Multiple tattoos present), Warm Results - Vital Signs Recent Vital Signs: Last Vital Signs Temp 98.6 F 03/25/17 14:34 Pulse 112 H 03/25/17 14:50 Resp 20 03/25/17 14:50 BP 117/86 03/25/17 14:34 Pulse Ox 96 03/25/17 14:34 - Labs Result Diagrams: 03/25/17 08:31 03/25/17 08:31 Labs: Laboratory Results - last 24 hr 03/25/17 03/25/17 11:30 14:24 POC Glucose (mg/dL) 168 H Troponin I 0.0200 - Imaging and Cardiology CT scan - abdomen Status: Image reviewed by me, Report reviewed by me Assessment & Plan - Assessment and Plan (Free Text) Assessment: 46 y/o M w/ acute on chronic CHF exacerbation w/ possible enterosplenic fistula - consider barium enema to assess for colonic-splenic connection --> will speak w/ Radiology tomorrow - Bowel prep for possible Barium enema tomorrow - pt now agreeable to PO contrast for repeat CT - IV Abx - serial abd exams - monitor vitals - daily labs --> monitor WBC - continue medical management Pt discussed w/ Dr. Parrish Olivo DO PGY1
[2017-03-25] MEDS ORDERED: Peg-Electrolyte Oral Soln 4L (Golytely) PO ONE (17:00)
[2017-03-25] MEDS: Albuterol-Ipratrop 3 mg / 0.5 (3 ml) UD INH SCH (19:42)
[2017-03-25] MEDS ORDERED: Magnesium Hydroxide Susp 30 ml UD PO ONE (22:12)
[2017-03-26] MEDS: Albuterol-Ipratrop 3 mg / 0.5 (3 ml) UD INH SCH ×4 (02:07→19:55)
[2017-03-26 07:16] LABS: INR 1.4
[2017-03-26 07:48] LABS: BASO # 0.1 K/uL (0.0-0.2); BASO % 0.6 % (0.0-2.0); EOS # 0.2 K/uL (0.0-0.7); EOS % 1.7 % (0.0-4.0); HEMATOCRIT 35.2 % (35.0-51.0); LYMPH # 2.1 K/uL (1.0-4.3); LYMPH % 20.6 % (20.0-40.0); MEAN CELL VOLUME 82.8 fL (80.0-94.0); MEAN CORPUSCULAR HEMOGLOBIN 26.3 pg (27.0-31.0); MEAN CORPUSCULAR HGB CONC 31.8 g/dL (33.0-37.0); MONO # 1.1 K/uL (0.0-0.8); MONO % 10.6 % (0.0-10.0); RED CELL DISTRIBUTION WIDTH 17.6 % (11.5-14.5)
[2017-03-26 07:53] LABS: T4 7.87 ug/dL (5.5-11.0)
[2017-03-26] MEDS ORDERED: Oxycodone/Acetaminophen 5/325 mg Tab PO PRN (07:53)
[2017-03-26] MEDS: (Novolin R) Insulin Human Regular 100 units/ml vial SC SCH ×4 (07:54→22:27)
[2017-03-26 08:07] LABS: THYROID STIMULATING HORMONE 2.52 mIU/L (0.46-4.68)
[2017-03-26 08:14] LABS: CHOLESTEROL 108 mg/dL (0-199)
[2017-03-26] MEDS: Albuterol HFA 90 mcg/actuation (8 g) IH SCH ×2 (09:18→19:55)
[2017-03-26 10:03] LABS: CHLORIDE 95 mmol/L (98-107); SODIUM 137 mmol/L (132-148)
[2017-03-26 10:06] LABS: ALB/GLOB RATIO 0.7 (1.0-2.1); ALKALINE PHOSPHATASE 75 U/L (38-126); ALT/SGPT 11 U/L (21-72); AST/SGOT 48 U/L (17-59); BILIRUBIN,TOTAL 0.7 mg/dL (0.2-1.3); BLOOD UREA NITROGEN 21 mg/dL (9-20); CARBON DIOXIDE 29 mmol/L (22-30); GFR AFRICAN-AMERICAN > 60; GLUCOSE,RANDOM 69 mg/dL (75-110); TOTAL PROTEIN 8.5 g/dL (6.3-8.3)
[2017-03-26 10:07] LABS: CALCIUM 8.5 mg/dl (8.6-10.4)
[2017-03-26] MEDS: Digoxin 125 mcg (0.125 mg) Tab PO SCH (10:31)
[2017-03-26] MEDS: Pantoprazole 40 mg EC Tab PO SCH (10:31)
--- NOTE | 2017-03-26 10:46 | CP.PCM.PN ---
Subjective - Date & Time of Evaluation Date of Evaluation: 03/26/17 Time of Evaluation: 10:43 - Subjective Subjective: PGY1 Progress Note for Dr. Senior: Patient seen and examined. Patient refused golytely bowel prep overnight but was given alternative of milk of magnesia which he states he drank. Per report , patient not compliant with diet order overnight. Patient states the pain in his abdomen is not as bad as during his previous admission. Patient reports relief of SOB with IV lasix given in ED. Objective - Vital Signs/Intake and Output Vital Signs (last 24 hours): Temp Pulse Resp BP Pulse Ox 97.5 F L 69 20 131/86 94 L 03/25/17 23:40 03/26/17 06:40 03/25/17 23:40 03/26/17 10:31 03/25/17 23:40 Intake and Output: 03/26/17 03/26/17 06:59 18:59 Intake Total 610 Output Total 400 Balance 210 - Medications Medications: Current Medications Albuterol (Ventolin Hfa 90 Mcg/Actuation (8 G)) 2 puff IH BID [facility] Last Admin: 03/26/17 09:18 Dose: Not Given Albuterol/Ipratropium (Duoneb 3 Mg/0.5 Mg (3 Ml) Ud) 3 ml INH RQ6 [facility] Last Admin: 03/26/17 09:18 Dose: Not Given Alprazolam (Xanax) 1 mg PO QID [facility] Last Admin: 03/26/17 10:31 Dose: 1 mg Digoxin (Lanoxin) 0.125 mg PO DAILY [facility] Last Admin: 03/26/17 10:31 Dose: 0.125 mg Diltiazem HCl (Cardizem) 30 mg PO Q6H [facility] Last Admin: 03/26/17 08:26 Dose: 30 mg Fluoxetine HCl (Prozac) 40 mg PO DAILY [facility] Last Admin: 03/26/17 10:31 Dose: 40 mg Furosemide (Lasix) 40 mg IVP BID [facility] Last Admin: 03/26/17 10:31 Dose: 40 mg Hydromorphone HCl (Dilaudid) 2 mg IVP Q4H PRN PRN Reason: Pain, severe (8-10) Vancomycin HCl 1 gm/ Sodium (Chloride) 250 mls @ 166.7 mls/hr IVPB Q12H [facility] Last Admin: 03/26/17 02:38 Dose: 166.7 mls/hr Insulin Human Regular (Novolin R) 0 unit SC ACHS JEIMY PRN Reason: Protocol Montelukast Sodium (Singulair) 10 mg PO HS [facility] Last Admin: 03/25/17 21:15 Dose: 10 mg Nicotine (Nicoderm Cq) 1 patch TD DAILY [facility] Last Admin: 03/26/17 10:32 Dose: 1 patch [id number] Ethyl Esters (Lovaza) 1 gm PO BID [facility] Ondansetron HCl (Zofran Inj) 4 mg IVP Q6 PRN PRN Reason: Nausea/Vomiting Oxycodone/Acetaminophen (Percocet 5/325 Mg Tab) 2 tab PO Q4H PRN PRN Reason: Pain, moderate (4-7) Stop: 03/28/17 10:16 Pantoprazole Sodium (Protonix Ec Tab) 40 mg PO DAILY [facility] Last Admin: 03/26/17 10:31 Dose: 40 mg Pneumococcal Polyvalent Vaccine (Prevnar 13) 0.5 ml IM .ONCE ONE Stop: 03/28/17 10:01 Pneumococcal Polyvalent Vaccine (Pneumovax 23 Vaccine) 0.5 ml IM .ONCE ONE Stop: 03/28/17 10:01 - Labs Labs: 03/26/17 07:00 03/26/17 07:13 PT 15.9 SECONDS (9.7-12.2) H 03/26/17 07:00 INR 1.4 03/26/17 07:00 APTT 37 SECONDS (21-34) H D 03/26/17 07:00 - Constitutional Appears: Non-toxic, No Acute Distress - Eye Exam Eye Exam: EOMI - ENT Exam ENT Exam: Mucous Membranes Moist - GI/Abdominal Exam GI & Abdominal Exam: Distended, Soft, Tenderness (mild LUQ and LLQ), Normal Bowel Sounds. absent: Rigid - Neurological Exam Neurological Exam: Alert, Awake - Skin Skin Exam: Warm Assessment and Plan - Assessment and Plan (Free Text) Assessment: 46 y/o M w/ acute on chronic CHF exacerbation w/ possible enterosplenic fistula - barium enema to assess for colonic-splenic connection --> per IR, there is possibility that fistula may not be visualized on barium enema, if there is a connection it can be drained in future if necessary - Bowel prep- milk of magnesia completed- for possible Barium enema - liquid diet until barium enema- advance after completion of study - IV Abx per primary team - serial abd exams - monitor vitals - daily labs --> monitor WBC- 10.0 today - continue medical management - no acute surgical intervention at this time, pending further studies - Discussed with Dr. Senior
--- NOTE | 2017-03-26 11:09 | CP.PCM.CON ---
History of Present Illness - History of Present Illness History of Present Illness: 46M with PMH of HTN, CAD, CHF, Afib on coumadin, COPD, ARLENE, Bipolar disorder, Chronic back pain, herniated discs, presenting to [facility] for SOB and abdominal pain. He stated that his symptoms have been present for 2 days. He stated a sudden onset and said symptoms have gotten progressively worse. Patient recently signed out AMA from hospital while being treated for severe hypotension, sepsis, and acute CHF exacerbation. He stated that he can barely walk 10 feet before getting short of breath. He rated his abdominal pain as 8/ 10 in severity. PMH: HTN, CAD, CHF, Afib, COPD, ARLENE, Herniated discs L-spine, Bipolar/Depression , Asthma Meds: Diltiazem, ASA, Carvedilol, warfarin, digoxin, enalapril, percocet, cyclobenzaprine, HCTZ, k-dur, Lasix, Albuterol, Prozac, Simvastatin, Montelukast , Tizanidine, Xanax, Gabapentin. Allergy: Apixaban, clopidogrel, enoxaparin, Morphine PSH: Appendectomy (2008), Coronary stents x4 ([id number]) Hosp: multiple admissions recently for SOB, splenic hematoma and bacteremia FH: Did not provide Social: Admits tobacco use, does not quantify. Social alcohol use; Admits to Cocaine use Review of Systems - Review of Systems All systems: reviewed and no additional remarkable complaints except (Shortness of breath) Past Patient History - Infectious Disease Hx of Infectious Diseases: None - Tetanus Immunizations Tetanus Immunization: Up to Date - Past Medical History & Family History Past Medical History?: Yes - Past Social History Smoking Status: Former Smoker - CARDIAC Hx Atrial Fibrillation: Yes Hx Cardia Arrhythmia: Yes Hx Congestive Heart Failure: Yes Hx Hypercholesterolemia: Yes Hx Hypertension: Yes Hx Peripheral Edema: Yes - PULMONARY Hx Asthma: Yes Hx Chronic Obstructive Pulmonary Disease (COPD): Yes Hx Emphysema: Yes Hx Sleep Apnea: Yes - NEUROLOGICAL Hx Neurological Disorder: No - HEENT Hx HEENT Problems: No - RENAL Hx Chronic Kidney Disease: No - ENDOCRINE/METABOLIC Hx Endocrine Disorders: No - HEMATOLOGICAL/ONCOLOGICAL Hx Blood Disorders: Yes Other/Comment: MRSA Hx - INTEGUMENTARY Hx Dermatological Problems: No - MUSCULOSKELETAL/RHEUMATOLOGICAL Hx Musculoskeletal Disorders: Yes - GASTROINTESTINAL Hx Gastrointestinal Disorders: Yes Other/Comment: Splenic Hematoma - GENITOURINARY/GYNECOLOGICAL Hx Genitourinary Disorders: No - PSYCHIATRIC Hx Anxiety: Yes Hx Bipolar Disorder: Yes Hx Depression: Yes Hx Substance Use: Yes - SURGICAL HISTORY Hx Appendectomy: Yes (2008) Hx Coronary Stent: Yes (2008 - 2012 4 stents) - ANESTHESIA Hx Anesthesia: Yes Hx Anesthesia Reactions: No Hx Malignant Hyperthermia: No Meds Allergies/Adverse Reactions: Allergies Allergy/AdvReac Type Severity Reaction Status Date / Time apixaban [From Eliquis] Allergy RASH Verified 04/23/17 15:02 clopidogrel bisulfate Allergy RASH Verified 04/23/17 15:02 [From Plavix] enoxaparin sodium Allergy RASH Verified 04/23/17 15:02 [From Lovenox] morphine Allergy RASH Verified 04/23/17 15:02 - Medications Medications: Current Medications Albuterol (Ventolin Hfa 90 Mcg/Actuation (8 G)) 2 puff IH BID [facility] Last Admin: 03/26/17 09:18 Dose: Not Given Albuterol/Ipratropium (Duoneb 3 Mg/0.5 Mg (3 Ml) Ud) 3 ml INH RQ6 [facility] Last Admin: 03/26/17 09:18 Dose: Not Given Alprazolam (Xanax) 1 mg PO QID [facility] Last Admin: 03/26/17 10:31 Dose: 1 mg Digoxin (Lanoxin) 0.125 mg PO DAILY [facility] Last Admin: 03/26/17 10:31 Dose: 0.125 mg Diltiazem HCl (Cardizem) 30 mg PO Q6H [facility] Last Admin: 03/26/17 08:26 Dose: 30 mg Fluoxetine HCl (Prozac) 40 mg PO DAILY [facility] Last Admin: 03/26/17 10:31 Dose: 40 mg Furosemide (Lasix) 40 mg IVP BID [facility] Last Admin: 03/26/17 10:31 Dose: 40 mg Hydromorphone HCl (Dilaudid) 2 mg IVP Q4H PRN PRN Reason: Pain, severe (8-10) Vancomycin HCl 1 gm/ Sodium (Chloride) 250 mls @ 166.7 mls/hr IVPB Q12H [facility] Last Admin: 03/26/17 02:38 Dose: 166.7 mls/hr Insulin Human Regular (Novolin R) 0 unit SC ACHS JEIMY PRN Reason: Protocol Montelukast Sodium (Singulair) 10 mg PO HS [facility] Last Admin: 03/25/17 21:15 Dose: 10 mg Nicotine (Nicoderm Cq) 1 patch TD DAILY [facility] Last Admin: 03/26/17 10:32 Dose: 1 patch [id number] Ethyl Esters (Lovaza) 1 gm PO BID [facility] Ondansetron HCl (Zofran Inj) 4 mg IVP Q6 PRN PRN Reason: Nausea/Vomiting Oxycodone/Acetaminophen (Percocet 5/325 Mg Tab) 2 tab PO Q4H PRN PRN Reason: Pain, moderate (4-7) Stop: 03/28/17 10:16 Pantoprazole Sodium (Protonix Ec Tab) 40 mg PO DAILY [facility] Last Admin: 03/26/17 10:31 Dose: 40 mg Pneumococcal Polyvalent Vaccine (Prevnar 13) 0.5 ml IM .ONCE ONE Stop: 03/28/17 10:01 Pneumococcal Polyvalent Vaccine (Pneumovax 23 Vaccine) 0.5 ml IM .ONCE ONE Stop: 03/28/17 10:01 Physical Exam - Head Exam Head Exam: ATRAUMATIC, NORMOCEPHALIC - Eye Exam Eye Exam: Normal appearance - ENT Exam ENT Exam: Mucous Membranes Moist - Neck Exam Neck exam: Positive for: Normal Inspection - Respiratory Exam Respiratory Exam: Clear to Auscultation Bilateral - Cardiovascular Exam Cardiovascular Exam: REGULAR RHYTHM - GI/Abdominal Exam GI & Abdominal Exam: Normal Bowel Sounds, Soft - Extremities Exam Extremities exam: Positive for: normal inspection Results - Vital Signs Recent Vital Signs: Last Vital Signs Temp 97.5 F L 03/25/17 23:40 Pulse 69 03/26/17 06:40 Resp 20 03/25/17 23:40 BP 131/86 03/26/17 10:31 Pulse Ox 94 L 03/25/17 23:40 - Labs Result Diagrams: 03/27/17 08:29 03/27/17 08:29 Labs: Laboratory Results - last 24 hr 03/25/17 03/25/17 03/25/17 11:30 14:24 17:05 WBC RBC Hgb Hct MCV MCH MCHC RDW Plt Count MPV Neut % (Auto) Lymph % (Auto) Craig % (Auto) Eos % (Auto) Baso % (Auto) Neut # Lymph # Craig # Eos # Baso # PT INR APTT Sodium Potassium Chloride Carbon Dioxide Anion Gap BUN Creatinine Est GFR ( Amer) Est GFR (Non-Af Amer) POC Glucose (mg/dL) 168 H 109 Random Glucose Hemoglobin A1c Calcium Total Bilirubin AST ALT Alkaline Phosphatase Troponin I 0.0200 Total Protein Albumin Globulin Albumin/Globulin Ratio Triglycerides Cholesterol LDL Cholesterol Direct HDL Cholesterol Thyroxine (T4) TSH 3rd Generation 03/25/17 03/25/17 03/26/17 21:18 22:25 06:16 WBC RBC Hgb Hct MCV MCH MCHC RDW Plt Count MPV Neut % (Auto) Lymph % (Auto) Craig % (Auto) Eos % (Auto) Baso % (Auto) Neut # Lymph # Craig # Eos # Baso # PT INR APTT Sodium Potassium Chloride Carbon Dioxide Anion Gap BUN Creatinine Est GFR ( Amer) Est GFR (Non-Af Amer) POC Glucose (mg/dL) 108 74 Random Glucose Hemoglobin A1c Calcium Total Bilirubin AST ALT Alkaline Phosphatase Troponin I 0.0370 Total Protein Albumin Globulin Albumin/Globulin Ratio Triglycerides Cholesterol LDL Cholesterol Direct HDL Cholesterol Thyroxine (T4) TSH 3rd Generation 03/26/17 03/26/17 03/26/17 07:00 07:00 07:13 WBC 10.0 RBC 4.25 L Hgb 11.2 L Hct 35.2 MCV 82.8 MCH 26.3 L MCHC 31.8 L RDW 17.6 H Plt Count 451 H MPV 7.0 L Neut % (Auto) 66.5 Lymph % (Auto) 20.6 Craig % (Auto) 10.6 H Eos % (Auto) 1.7 Baso % (Auto) 0.6 Neut # 6.6 Lymph # 2.1 Craig # 1.1 H Eos # 0.2 Baso # 0.1 PT 15.9 H INR 1.4 APTT 37 H D Sodium 137 Potassium 4.0 Chloride 95 L Carbon Dioxide 29 Anion Gap 17 BUN 21 H Creatinine 0.9 Est GFR ( Amer) > 60 Est GFR (Non-Af Amer) > 60 POC Glucose (mg/dL) Random Glucose 69 L Hemoglobin A1c Calcium 8.5 L Total Bilirubin 0.7 AST 48 ALT 11 L Alkaline Phosphatase 75 Troponin I Total Protein 8.5 H Albumin 3.5 Globulin 5.0 H Albumin/Globulin Ratio 0.7 L Triglycerides 164 H Cholesterol 108 LDL Cholesterol Direct 51 HDL Cholesterol 23 L Thyroxine (T4) 7.87 TSH 3rd Generation 2.52 03/26/17 07:13 WBC RBC Hgb Hct MCV MCH MCHC RDW Plt Count MPV Neut % (Auto) Lymph % (Auto) Craig % (Auto) Eos % (Auto) Baso % (Auto) Neut # Lymph # Craig # Eos # Baso # PT INR APTT Sodium Potassium Chloride Carbon Dioxide Anion Gap BUN Creatinine Est GFR ( Amer) Est GFR (Non-Af Amer) POC Glucose (mg/dL) Random Glucose Hemoglobin A1c 6.9 H Calcium Total Bilirubin AST ALT Alkaline Phosphatase Troponin I Total Protein Albumin Globulin Albumin/Globulin Ratio Triglycerides Cholesterol LDL Cholesterol Direct HDL Cholesterol Thyroxine (T4) TSH 3rd Generation Assessment & Plan (1) ARLENE and COPD overlap syndrome Assessment and Plan: Continue nebulizer treatment Patient advised to use CPAP at night which is refusing Continue present treatment and will follow-up Status: Acute
[2017-03-26] MEDS: Oxycodone/Acetaminophen 5/325 mg Tab PO PRN ×3 (12:15→20:31)
[2017-03-26] MEDS: Omega-3-Acid Ethyl Esters 1 GM Cap PO SCH ×2 (12:25→17:34)
--- NOTE | 2017-03-26 13:54 | CP.PCM.PN ---
Subjective - Date & Time of Evaluation Date of Evaluation: 03/26/17 Time of Evaluation: 07:05 - Subjective Subjective: PGY-1 Medicine Progress Note for Dr. Ocampo Patient seen and examined at bedside this AM. Patient's HR went into 140s with telemetry striip showing afib. Patient was restarted on cardizem. In the morning , patient stated pain is controlled with pain medications. Patient prefers percocet over dilaudid. Patient will likely go for barium enema today after bowel prep. Denied fever/chills, cp, sob, palpitations, n/v/d. Objective - Vital Signs/Intake and Output Vital Signs (last 24 hours): Temp Pulse Resp BP Pulse Ox 97.5 F L 69 20 131/86 94 L 03/25/17 23:40 03/26/17 06:40 03/25/17 23:40 03/26/17 10:31 03/25/17 23:40 Intake and Output: 03/26/17 03/26/17 06:59 18:59 Intake Total 610 Output Total 400 Balance 210 - Medications Medications: Current Medications Albuterol (Ventolin Hfa 90 Mcg/Actuation (8 G)) 2 puff IH BID [facility] Last Admin: 03/26/17 09:18 Dose: Not Given Albuterol/Ipratropium (Duoneb 3 Mg/0.5 Mg (3 Ml) Ud) 3 ml INH RQ6 [facility] Last Admin: 03/26/17 09:18 Dose: Not Given Alprazolam (Xanax) 1 mg PO QID [facility] Last Admin: 03/26/17 10:31 Dose: 1 mg Digoxin (Lanoxin) 0.125 mg PO DAILY [facility] Last Admin: 03/26/17 10:31 Dose: 0.125 mg Diltiazem HCl (Cardizem) 30 mg PO Q6H [facility] Last Admin: 03/26/17 08:26 Dose: 30 mg Fluoxetine HCl (Prozac) 40 mg PO DAILY [facility] Last Admin: 03/26/17 10:31 Dose: 40 mg Furosemide (Lasix) 40 mg IVP BID [facility] Last Admin: 03/26/17 10:31 Dose: 40 mg Hydromorphone HCl (Dilaudid) 2 mg IVP Q4H PRN PRN Reason: Pain, severe (8-10) Vancomycin HCl 1 gm/ Sodium (Chloride) 250 mls @ 166.7 mls/hr IVPB Q12H [facility] Last Admin: 03/26/17 02:38 Dose: 166.7 mls/hr Insulin Human Regular (Novolin R) 0 unit SC ACHS JEIMY PRN Reason: Protocol Last Admin: 03/26/17 12:16 Dose: Not Given Montelukast Sodium (Singulair) 10 mg PO HS [facility] Last Admin: 03/25/17 21:15 Dose: 10 mg Nicotine (Nicoderm Cq) 1 patch TD DAILY [facility] Last Admin: 03/26/17 10:32 Dose: 1 patch [id number] Ethyl Esters (Lovaza) 1 gm PO BID [facility] Last Admin: 03/26/17 12:25 Dose: 1 gm Ondansetron HCl (Zofran Inj) 4 mg IVP Q6 PRN PRN Reason: Nausea/Vomiting Oxycodone/Acetaminophen (Percocet 5/325 Mg Tab) 2 tab PO Q4H PRN PRN Reason: Pain, moderate (4-7) Stop: 03/28/17 10:16 Last Admin: 03/26/17 12:15 Dose: 2 tab Pantoprazole Sodium (Protonix Ec Tab) 40 mg PO DAILY [facility] Last Admin: 03/26/17 10:31 Dose: 40 mg Pneumococcal Polyvalent Vaccine (Prevnar 13) 0.5 ml IM .ONCE ONE Stop: 03/28/17 10:01 Pneumococcal Polyvalent Vaccine (Pneumovax 23 Vaccine) 0.5 ml IM .ONCE ONE Stop: 03/28/17 10:01 - Labs Labs: 03/26/17 07:00 03/26/17 07:13 PT 15.9 SECONDS (9.7-12.2) H 03/26/17 07:00 INR 1.4 03/26/17 07:00 APTT 37 SECONDS (21-34) H D 03/26/17 07:00 - Constitutional Appears: No Acute Distress - Head Exam Head Exam: ATRAUMATIC, NORMOCEPHALIC - Eye Exam Eye Exam: EOMI, Normal appearance Pupil Exam: PERRL - ENT Exam ENT Exam: Mucous Membranes Moist - Neck Exam Neck Exam: Normal Inspection - Respiratory Exam Respiratory Exam: Clear to Ausculation Bilateral, NORMAL BREATHING PATTERN - Cardiovascular Exam Cardiovascular Exam: Irregular Rhythm, +S1, +S2 - GI/Abdominal Exam GI & Abdominal Exam: Distended, Soft, Tenderness (LUQ), Normal Bowel Sounds, Organomegaly (spleen). absent: Firm, Guarding, Rebound - Extremities Exam Extremities Exam: Normal Capillary Refill, Pedal Edema - Back Exam Back Exam: absent: CVA tenderness (L), CVA tenderness (R) - Neurological Exam Neurological Exam: Alert, Awake, CN II-XII Intact, Normal Gait, Oriented x3 - Psychiatric Exam Psychiatric exam: Normal Affect, Normal Mood - Skin Skin Exam: Dry, Intact, Petechiae (on all four extremities), Warm Assessment and Plan - Assessment and Plan (Free Text) Plan: 1. 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 The smaller component also abuts proximal descending colon and it is likely that there is a fistulous communication between the hematoma collection and bowel unless there has been any recent interventional procedure. Surrounding infiltration changes. Also that there appear to be a few scattered bubbles of air outside the confines of the splenic capsule suggesting the free air is well (see full report) ID consult, Dr. Sorenson, help appreciated Vascular consult, Dr. Senior, help appreciated CXR: No cardiomegaly with mild central pulmonary vascular congestion. Re- demonstrated is a small left lower lobe atelectasis and or infiltrate with small effusion (see full report) Vancomycin 1 gm IVPB Q12H Blood culture Percocet 5/325 mg 2 tab PO Q6H PRN 2. COPD CXR: No cardiomegaly with mild central pulmonary vascular congestion. Re- demonstrated is a small left lower lobe atelectasis and or infiltrate with small effusion (see full report) Vancomycin 1 gm IVPB Q12H O2 2LNC Duonebs Singulair 10 mg PO HS Ventolin 3. CHF CXR: No cardiomegaly with mild central pulmonary vascular congestion. Re- demonstrated is a small left lower lobe atelectasis and or infiltrate with small effusion (see full report) Digoxin 0.125 mg PO daily Lasix 40 mg IVP BID hold home medications I's & O's daily weight 4. AFIB Digoxin 0.125 mg PO daily hold coumadin 5. HTN Lasix 40 mg IVP BID Cadizem 30 mg PO Q6H hold home medications 6. CAD hold home medications Lovaza 7. ARLENE CPAP at night 8. Anxiety/depression Prozac 40 mg PO daily Xanax 1 mg PO QID 9. Prophylactic Measures Pneumoccal vaccines Protonix 40 mg PO daily zofran PRN Nicotine patch Accuchecks ISS
--- NOTE | 2017-03-26 18:58 | CARD ---
APPROVED REPORT EKG Measurement Heart [id number] <Conclusion> Atrial fibrillation with rapid ventricular response Incomplete RBBB Left axis deviation Nonspecific ST/T abnormality. Abnormal ECG
--- NOTE | 2017-03-26 19:15 | CP.PCM.CON ---
History of Present Illness - History of Present Illness History of Present Illness: 46 y/o M w/ PMHx of HTN, CAD, CHF, Afib, COPD, ARLENE, presents to the ED w/ CC of "water in the stomach." hAD PREV ADMISSION WITH mrsa IN BLOOD ADVISED 6 WEEKS IV RX SIGNED AMA In the ED pt received dose of IV Lasix which has relived the pt's CP and improved his SOB and LE swelling. CT abd/pelvis w/ PO &IV contrast was ordered. Pt refused to drink the contrast due to nausea. IV only was performed. shows possible tracking from old loculated hematoma to descending colon. Surgery was consulted to evaluate the splenic hematoma w/ possible enterosplenic fistula. PMHx: HTN, CAD, CHF, Afib, COPD, ARLENE, Splenic hematoma, herniated lumbar discs, bipolar/depression Meds: reviewed in chart Allergies: reviewed in chart PSHx: appendectomy, coronary stents x4 SHx: former smoker, uses cocaine Past Patient History - Infectious Disease Hx of Infectious Diseases: None - Tetanus Immunizations Tetanus Immunization: Up to Date - Past Medical History & Family History Past Medical History?: Yes - Past Social History Smoking Status: Former Smoker - CARDIAC Hx Atrial Fibrillation: Yes Hx Cardia Arrhythmia: Yes Hx Congestive Heart Failure: Yes Hx Hypercholesterolemia: Yes Hx Hypertension: Yes Hx Peripheral Edema: Yes - PULMONARY Hx Asthma: Yes Hx Chronic Obstructive Pulmonary Disease (COPD): Yes Hx Emphysema: Yes Hx Sleep Apnea: Yes - NEUROLOGICAL Hx Neurological Disorder: No - HEENT Hx HEENT Problems: No - RENAL Hx Chronic Kidney Disease: No - ENDOCRINE/METABOLIC Hx Endocrine Disorders: No - HEMATOLOGICAL/ONCOLOGICAL Hx Blood Disorders: Yes Other/Comment: MRSA Hx - INTEGUMENTARY Hx Dermatological Problems: No - MUSCULOSKELETAL/RHEUMATOLOGICAL Hx Musculoskeletal Disorders: Yes - GASTROINTESTINAL Hx Gastrointestinal Disorders: Yes Other/Comment: Splenic Hematoma - GENITOURINARY/GYNECOLOGICAL Hx Genitourinary Disorders: No - PSYCHIATRIC Hx Anxiety: Yes Hx Bipolar Disorder: Yes Hx Depression: Yes Hx Substance Use: Yes - SURGICAL HISTORY Hx Appendectomy: Yes (2008) Hx Coronary Stent: Yes (2008 - 2012 4 stents) - ANESTHESIA Hx Anesthesia: Yes Hx Anesthesia Reactions: No Hx Malignant Hyperthermia: No Meds Allergies/Adverse Reactions: Allergies Allergy/AdvReac Type Severity Reaction Status Date / Time apixaban [From Eliquis] Allergy Verified 03/25/17 08:05 clopidogrel bisulfate Allergy Verified 03/25/17 08:05 [From Plavix] enoxaparin sodium Allergy Verified 03/25/17 08:05 [From Lovenox] morphine Allergy Verified 03/25/17 08:05 - Medications Medications: Current Medications Albuterol (Ventolin Hfa 90 Mcg/Actuation (8 G)) 2 puff IH BID [facility] Last Admin: 03/26/17 09:18 Dose: Not Given Albuterol/Ipratropium (Duoneb 3 Mg/0.5 Mg (3 Ml) Ud) 3 ml INH RQ6 [facility] Last Admin: 03/26/17 14:02 Dose: Not Given Alprazolam (Xanax) 1 mg PO QID [facility] Last Admin: 03/26/17 17:34 Dose: 1 mg Digoxin (Lanoxin) 0.125 mg PO DAILY [facility] Last Admin: 03/26/17 10:31 Dose: 0.125 mg Diltiazem HCl (Cardizem) 30 mg PO Q6H [facility] Last Admin: 03/26/17 08:26 Dose: 30 mg Fluoxetine HCl (Prozac) 40 mg PO DAILY [facility] Last Admin: 03/26/17 10:31 Dose: 40 mg Furosemide (Lasix) 40 mg IVP BID [facility] Last Admin: 03/26/17 17:34 Dose: 40 mg Hydromorphone HCl (Dilaudid) 2 mg IVP Q4H PRN PRN Reason: Pain, severe (8-10) Vancomycin HCl 1 gm/ Sodium (Chloride) 250 mls @ 166.7 mls/hr IVPB Q12H [facility] Last Admin: 03/26/17 17:01 Dose: 166.7 mls/hr Insulin Human Regular (Novolin R) 0 unit SC ACHS JEIM[facility] PRN Reason: Protocol Last Admin: 03/26/17 17:35 Dose: Not Given Montelukast Sodium (Singulair) 10 mg PO HS [facility] Last Admin: 03/25/17 21:15 Dose: 10 mg Nicotine (Nicoderm Cq) 1 patch TD DAILY [facility] Last Admin: 03/26/17 10:32 Dose: 1 patch Ttctb-4-[id number] Ethyl Esters (Lovaza) 1 gm PO BID [facility] Last Admin: 03/26/17 17:34 Dose: 1 gm Ondansetron HCl (Zofran Inj) 4 mg IVP Q6 PRN PRN Reason: Nausea/Vomiting Oxycodone/Acetaminophen (Percocet 5/325 Mg Tab) 2 tab PO Q4H PRN PRN Reason: Pain, moderate (4-7) Stop: 03/28/17 10:16 Last Admin: 03/26/17 16:59 Dose: 2 tab Pantoprazole Sodium (Protonix Ec Tab) 40 mg PO DAILY [facility] Last Admin: 03/26/17 10:31 Dose: 40 mg Pneumococcal Polyvalent Vaccine (Prevnar 13) 0.5 ml IM .ONCE ONE Stop: 03/28/17 10:01 Pneumococcal Polyvalent Vaccine (Pneumovax 23 Vaccine) 0.5 ml IM .ONCE ONE Stop: 03/28/17 10:01 Results - Vital Signs Recent Vital Signs: Last Vital Signs Temp 98.0 F 03/26/17 15:38 Pulse 96 H 03/26/17 15:38 Resp 20 03/26/17 15:38 BP 146/92 H 03/26/17 17:34 Pulse Ox 98 03/26/17 15:38 - Labs Result Diagrams: 03/26/17 07:00 03/26/17 07:13 Labs: Laboratory Results - last 24 hr 03/25/17 03/25/17 03/26/17 21:18 22:25 06:16 WBC RBC Hgb Hct MCV MCH MCHC RDW Plt Count MPV Neut % (Auto) Lymph % (Auto) [place] % (Auto) Eos % (Auto) Baso % (Auto) Neut # Lymph # [place] # Eos # Baso # PT INR APTT Sodium Potassium Chloride Carbon Dioxide Anion Gap BUN Creatinine Est GFR ( Amer) Est GFR (Non-Af Amer) POC Glucose (mg/dL) 108 74 Random Glucose Hemoglobin A1c Calcium Total Bilirubin AST ALT Alkaline Phosphatase Troponin I 0.0370 Total Protein Albumin Globulin Albumin/Globulin Ratio Triglycerides Cholesterol LDL Cholesterol Direct HDL Cholesterol Thyroxine (T4) TSH 3rd Generation 03/26/17 03/26/17 03/26/17 07:00 07:00 07:13 WBC 10.0 RBC 4.25 L Hgb 11.2 L Hct 35.2 MCV 82.8 MCH 26.3 L MCHC 31.8 L RDW 17.6 H Plt Count 451 H MPV 7.0 L Neut % (Auto) 66.5 Lymph % (Auto) 20.6 [place] % (Auto) 10.6 H Eos % (Auto) 1.7 Baso % (Auto) 0.6 Neut # 6.6 Lymph # 2.1 [place] # 1.1 H Eos # 0.2 Baso # 0.1 PT 15.9 H INR 1.4 APTT 37 H D Sodium 137 Potassium 4.0 Chloride 95 L Carbon Dioxide 29 Anion Gap 17 BUN 21 H Creatinine 0.9 Est GFR ( Amer) > 60 Est GFR (Non-Af Amer) > 60 POC Glucose (mg/dL) Random Glucose 69 L Hemoglobin A1c Calcium 8.5 L Total Bilirubin 0.7 AST 48 ALT 11 L Alkaline Phosphatase 75 Troponin I Total Protein 8.5 H Albumin 3.5 Globulin 5.0 H Albumin/Globulin Ratio 0.7 L Triglycerides 164 H Cholesterol 108 LDL Cholesterol Direct 51 HDL Cholesterol 23 L Thyroxine (T4) 7.87 TSH 3rd Generation 2.52 03/26/17 03/26/17 07:13 11:40 WBC RBC Hgb Hct MCV MCH MCHC RDW Plt Count MPV Neut % (Auto) Lymph % (Auto) [place] % (Auto) Eos % (Auto) Baso % (Auto) Neut # Lymph # [place] # Eos # Baso # PT INR APTT Sodium Potassium Chloride Carbon Dioxide Anion Gap BUN Creatinine Est GFR ( Amer) Est GFR (Non-Af Amer) POC Glucose (mg/dL) 96 Random Glucose Hemoglobin A1c 6.9 H Calcium Total Bilirubin AST ALT Alkaline Phosphatase Troponin I Total Protein Albumin Globulin Albumin/Globulin Ratio Triglycerides Cholesterol LDL Cholesterol Direct HDL Cholesterol Thyroxine (T4) TSH 3rd Generation
[2017-03-26] MEDS ORDERED: Magnesium Citrate Oral SOL (300 ml) PO ONE (20:00)
[2017-03-27] MEDS: Oxycodone/Acetaminophen 5/325 mg Tab PO PRN ×5 (01:06→17:50)
[2017-03-27] MEDS: Albuterol-Ipratrop 3 mg / 0.5 (3 ml) UD INH SCH ×3 (01:21→14:17)
[2017-03-27] MEDS: (Novolin R) Insulin Human Regular 100 units/ml vial SC SCH ×3 (07:54→17:59)
--- NOTE | 2017-03-27 08:30 | CP.PCM.PN ---
Subjective - Date & Time of Evaluation Date of Evaluation: 03/27/17 Time of Evaluation: 08:30 - Subjective Subjective: PGY1 Progress note for Dr. Senior: Patient seen and examined. Patient denies nausea, vomiting, diarrhea. Patient states last bowel movement was last night. Patient complaining of abdominal soreness but denies acute pain. Patient ambulating well. Patient tolerating diet well. Discussed with patient that he will not have barium enema and we will continue to monitor him. Objective - Vital Signs/Intake and Output Vital Signs (last 24 hours): Temp Pulse Resp BP Pulse Ox 98.6 F 83 20 100/61 97 03/27/17 01:07 03/27/17 01:07 03/27/17 01:07 03/27/17 01:07 03/27/17 01:07 Intake and Output: 03/27/17 03/27/17 06:59 18:59 Intake Total 610 Balance 610 - Medications Medications: Current Medications Albuterol (Ventolin Hfa 90 Mcg/Actuation (8 G)) 2 puff IH BID [facility] Last Admin: 03/26/17 19:55 Dose: Not Given Albuterol/Ipratropium (Duoneb 3 Mg/0.5 Mg (3 Ml) Ud) 3 ml INH RQ6 [facility] Last Admin: 03/27/17 01:21 Dose: Not Given Alprazolam (Xanax) 1 mg PO QID [facility] Last Admin: 03/26/17 22:46 Dose: 1 mg Digoxin (Lanoxin) 0.125 mg PO DAILY [facility] Last Admin: 03/26/17 10:31 Dose: 0.125 mg Diltiazem HCl (Cardizem) 30 mg PO Q6H [facility] Last Admin: 03/27/17 03:00 Dose: Not Given Fluoxetine HCl (Prozac) 40 mg PO DAILY [facility] Last Admin: 03/26/17 10:31 Dose: 40 mg Furosemide (Lasix) 40 mg IVP BID [facility] Last Admin: 03/26/17 17:34 Dose: 40 mg Hydromorphone HCl (Dilaudid) 2 mg IVP Q4H PRN PRN Reason: Pain, severe (8-10) Vancomycin HCl 1 gm/ Sodium (Chloride) 250 mls @ 166.7 mls/hr IVPB Q12H [facility] Last Admin: 03/27/17 03:00 Dose: 166.7 mls/hr Insulin Human Regular (Novolin R) 0 unit SC ACHS JEIMY PRN Reason: Protocol Last Admin: 03/27/17 07:54 Dose: Not Given Montelukast Sodium (Singulair) 10 mg PO HS [facility] Last Admin: 03/26/17 22:33 Dose: 10 mg Nicotine (Nicoderm Cq) 1 patch TD DAILY [facility] Last Admin: 03/26/17 10:32 Dose: 1 patch Mzwvx-2-Fasc Ethyl Esters (Lovaza) 1 gm PO BID [facility] Last Admin: 03/26/17 17:34 Dose: 1 gm Ondansetron HCl (Zofran Inj) 4 mg IVP Q6 PRN PRN Reason: Nausea/Vomiting Oxycodone/Acetaminophen (Percocet 5/325 Mg Tab) 2 tab PO Q4H PRN PRN Reason: Pain, moderate (4-7) Stop: 03/28/17 10:16 Last Admin: 03/27/17 05:35 Dose: 2 tab Pantoprazole Sodium (Protonix Ec Tab) 40 mg PO DAILY [facility] Last Admin: 03/26/17 10:31 Dose: 40 mg Pneumococcal Polyvalent Vaccine (Prevnar 13) 0.5 ml IM .ONCE ONE Stop: 03/28/17 10:01 Pneumococcal Polyvalent Vaccine (Pneumovax 23 Vaccine) 0.5 ml IM .ONCE ONE Stop: 03/28/17 10:01 - Labs Labs: 03/26/17 07:00 03/26/17 07:13 PT 15.9 SECONDS (9.7-12.2) H 03/26/17 07:00 INR 1.4 03/26/17 07:00 APTT 37 SECONDS (21-34) H D 03/26/17 07:00 - Constitutional Appears: No Acute Distress - Eye Exam Eye Exam: EOMI - ENT Exam ENT Exam: Mucous Membranes Moist - GI/Abdominal Exam GI & Abdominal Exam: Distended, Soft, Tenderness (mild left upper and lower quadrants). 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 Senior
[2017-03-27 08:46] LABS: BASO # 0.1 K/uL (0.0-0.2); BASO % 0.8 % (0.0-2.0); EOS # 0.2 K/uL (0.0-0.7); EOS % 2.4 % (0.0-4.0); HEMATOCRIT 36.7 % (35.0-51.0); LYMPH # 1.8 K/uL (1.0-4.3); LYMPH % 18.4 % (20.0-40.0); MEAN CELL VOLUME 83.6 fL (80.0-94.0); MEAN CORPUSCULAR HEMOGLOBIN 26.2 pg (27.0-31.0); MEAN CORPUSCULAR HGB CONC 31.3 g/dL (33.0-37.0); MEAN PLATELET VOLUME 7.3 fL (7.2-11.7); MONO % 10.6 % (0.0-10.0); RED CELL DISTRIBUTION WIDTH 18.2 % (11.5-14.5); WHITE BLOOD COUNT 9.6 K/uL (4.8-10.8)
[2017-03-27 08:51] LABS: CHLORIDE 96 mmol/L (98-107); SODIUM 137 mmol/L (132-148)
[2017-03-27 08:53] LABS: GFR AFRICAN-AMERICAN > 60
[2017-03-27 08:54] LABS: ALB/GLOB RATIO 0.7 (1.0-2.1); ALKALINE PHOSPHATASE 73 U/L (38-126); AST/SGOT 26 U/L (17-59); BILIRUBIN,TOTAL 0.6 mg/dL (0.2-1.3); BLOOD UREA NITROGEN 23 mg/dL (9-20); CARBON DIOXIDE 28 mmol/L (22-30); GLUCOSE,RANDOM 77 mg/dL (75-110); TOTAL PROTEIN 8.1 g/dL (6.3-8.3)
[2017-03-27 08:55] LABS: CALCIUM 8.2 mg/dl (8.6-10.4)
[2017-03-27 08:59] LABS: ALT/SGPT < 6 U/L (21-72)
[2017-03-27] MEDS: Omega-3-Acid Ethyl Esters 1 GM Cap PO SCH ×2 (09:54→17:50)
[2017-03-27] MEDS: Digoxin 125 mcg (0.125 mg) Tab PO SCH (09:54)
[2017-03-27] MEDS: Pantoprazole 40 mg EC Tab PO SCH (09:56)
[2017-03-27 10:08] VITALS: PULSE 82
[2017-03-27] MEDS: Albuterol HFA 90 mcg/actuation (8 g) IH SCH ×2 (10:54→19:26)
[2017-03-27 16:53] VITALS: BP 149/98; PULSE 65; TEMP 97.5; O2SAT 96
--- NOTE | 2017-03-27 19:48 | CP.PCM.DIS ---
Provider - Provider Date of Admission: 03/27/17 09:08 Attending physician: Roqeu Ocampo Jr, MD Time Spent in preparation of Discharge (in minutes): 35 Diagnosis - Discharge Diagnosis (1) Anxiety Status: Chronic (2) Abdominal pain Status: Acute Hospital Course - Lab Results Lab Results: Most Recent Lab Values WBC 9.6 K/uL (4.8-10.8) 03/27/17 08: RBC 4.39 Mil/uL (4.40-5.90) L 03/27/17 08:29 Hgb 11.5 g/dL (12.0-18.0) L 03/27/17 08: Hct 36.7 % (35.0-51.0) 03/27/17 08: MCV 83.6 fL (80.0-94.0) 03/27/17 08: MCH 26.2 pg (27.0-31.0) L 03/27/17 08: MCHC 31.3 g/dL (33.0-37.0) L 03/27/17 08: RDW 18.2 % (11.5-14.5) H 03/27/17 08: Plt Count 444 K/uL (130-400) H 03/27/17 08: MPV 7.3 fL (7.2-11.7) 03/27/17 08: Neut % (Auto) 67.8 % (50.0-75.0) 03/27/17 08: Lymph % (Auto) 18.4 % (20.0-40.0) L 03/27/17 08: [place] % (Auto) 10.6 % (0.0-10.0) H 03/27/17 08: Eos % (Auto) 2.4 % (0.0-4.0) 03/27/17 08: Baso % (Auto) 0.8 % (0.0-2.0) 03/27/17 08: Neut # 6.5 K/uL (1.8-7.0) 03/27/17 08: Lymph # 1.8 K/uL (1.0-4.3) 03/27/17 08: [place] # 1.0 K/uL (0.0-0.8) H 03/27/17 08:29 Eos # 0.2 K/uL (0.0-0.7) 03/27/17 08:29 Baso # 0.1 K/uL (0.0-0.2) 03/27/17 08:29 PT 15.9 SECONDS (9.7-12.2) H 03/26/17 07:00 INR 1.4 03/26/17 07:00 APTT 37 SECONDS (21-34) H D 03/26/17 07:00 Sodium 137 mmol/L (132-148) 03/27/17 08:29 Potassium 4.0 mmol/L (3.6-5.2) 03/27/17 08:29 Chloride 96 mmol/L (98-107) L 03/27/17 08:29 Carbon Dioxide 28 mmol/L (22-30) 03/27/17 08:29 Anion Gap 17 (10-20) 03/27/17 08:29 BUN 23 mg/dL (9-20) H 03/27/17 08:29 Creatinine 0.8 MG/DL (0.8-1.5) 03/27/17 08:29 Est GFR ( Amer) > 60 03/27/17 08:29 Est GFR (Non-Af Amer) > 60 03/27/17 08:29 POC Glucose (mg/dL) 108 mg/dL (65-110) 03/27/17 11:36 Random Glucose 77 mg/dL (75-110) 03/27/17 08:29 Hemoglobin A1c 6.9 % (4.2-6.5) H 03/26/17 07:13 Calcium 8.2 mg/dl (8.6-10.4) L 03/27/17 08:29 Total Bilirubin 0.6 mg/dL (0.2-1.3) 03/27/17 08:29 AST 26 U/L (17-59) 03/27/17 08:29 ALT < 6 U/L (21-72) L D 03/27/17 08:29 Alkaline Phosphatase 73 U/L (38-126) 03/27/17 08:29 Troponin I 0.0370 ng/mL (0.00-0.120) 03/25/17 22:25 NT-Pro-B Natriuret Pep 46376 pg/mL (0-450) H 03/25/17 08:31 Total Protein 8.1 g/dL (6.3-8.3) 03/27/17 08:29 Albumin 3.2 g/dL (3.5-5.0) L 03/27/17 08:29 Globulin 4.8 gm/dL (2.2-3.9) H 03/27/17 08:29 Albumin/Globulin Ratio 0.7 (1.0-2.1) L 03/27/17 08:29 Triglycerides 164 mg/dL (0-149) H 03/26/17 07:13 Cholesterol 108 mg/dL (0-199) 03/26/17 07:13 LDL Cholesterol Direct 51 mg/dL (0-129) 03/26/17 07:13 HDL Cholesterol 23 mg/dL (30-70) L 03/26/17 07:13 Thyroxine (T4) 7.87 ug/dL (5.5-11.0) 03/26/17 07:13 TSH 3rd Generation 2.52 mIU/L (0.46-4.68) 03/26/17 07:13 Urine Color Straw (YELLOW) 03/25/17 08:31 Urine Clarity Clear (Clear) 03/25/17 08:31 Urine pH 7.0 (5.0-8.0) 03/25/17 08:31 Ur Specific [place] 1.008 (1.003-1.030) 03/25/17 08:31 Urine Protein Negative mg/dL (NEGATIVE) 03/25/17 08:31 Urine Glucose (UA) Normal mg/dL (Normal) 03/25/17 08:31 Urine Ketones Negative mg/dL (NEGATIVE) 03/25/17 08:31 Urine Blood Negative (NEGATIVE) 03/25/17 08:31 Urine Nitrate Negative (NEGATIVE) 03/25/17 08:31 Urine Bilirubin Negative (NEGATIVE) 03/25/17 08:31 Urine Urobilinogen Normal mg/dL (0.2-1.0) 03/25/17 08:31 Ur Leukocyte Esterase Neg [place]ie/uL (Negative) 03/25/17 08:31 Urine WBC (Auto) 1 /hpf (0-5) 03/25/17 08:31 Hyaline Casts 0-2 /lpf (0-2) 03/25/17 08:31 Urine Opiates Screen Negative (NEGATIVE) 03/25/17 08:31 Urine Methadone Screen Negative (NEGATIVE) 03/25/17 08:31 Ur Barbiturates Screen Negative (NEGATIVE) 03/25/17 08:31 Ur Phencyclidine Scrn Negative (NEGATIVE) 03/25/17 08:31 Ur Amphetamines Screen Negative (NEGATIVE) 03/25/17 08:31 U Benzodiazepines Scrn Negative (NEGATIVE) 03/25/17 08:31 U Oth Cocaine Metabols Positive (NEGATIVE) 03/25/17 08:31 U Cannabinoids Screen Negative (NEGATIVE) 03/25/17 08:31 - Hospital Course Hospital Course: 46M with PMH of HTN, CAD, CHF, Afib on coumadin, COPD, ARLENE, Bipolar disorder, Chronic back pain, herniated discs, presenting to [facility] for SOB and abdominal pain. CT abd/pelvis w IV & PO contrast: had evidence of a fistula possibly betwen spleen and colon. Per IR, there is possibility that fistula may not be visualized on barium enema, if there is a connection it can be drained in future if necessary. Per surgery, no surgical intervention at this time. CXR : No cardiomegaly with mild central pulmonary vascular congestion. While in hospital pt. was on IV antibiotics and then discharge home on antibiotics with instruction to follow up with his PMD on . This is a brief account of his stay. Please see patient's chart for more details. - Date & Time of H&P Date of H&P: 03/27/17 Time of H&P: 07:20 Discharge Exam - Head Exam Head Exam: ATRAUMATIC, NORMOCEPHALIC - Eye Exam Eye Exam: Normal appearance - ENT Exam ENT Exam: Mucous Membranes Moist - Neck Exam Neck exam: Full Rom - Respiratory Exam Respiratory Exam: Clear to PA & Lateral, NORMAL BREATHING PATTERN - Cardiovascular Exam Cardiovascular Exam: Irregular Rhythm, +S1, +S2. absent: RRR - GI/Abdominal Exam GI & Abdominal Exam: Normal Bowel Sounds, Soft, Tenderness - Extremities Exam Extremities exam: full ROM, normal capillary refill - Neurological Exam Neurological exam: Alert, Oriented x3 - Psychiatric Exam Psychiatric exam: Agitated - Skin Skin Exam: Dry, Intact, Normal Color, Warm Discharge Plan - Discharge Medications Prescriptions: Levofloxacin [Levaquin] 750 mg PO DAILY #14 tablet - Follow Up Plan Condition: GUARDED Disposition: HOME/ ROUTINE Instructions: Levofloxacin (By mouth), Heart Failure (DC), Heart Healthy Diet ( DC) Additional Instructions: Patient medically stable for discharge. Please follow up with your primary care doctor, Dr. Ocampo on March. thank you for allowing us to take part in your care. Referrals: Roque Ocampo Jr., MD [Medical Doctor] -
[2017-03-28] MEDS ORDERED: Pneumococcal 23-Valent Vaccine IM ONE (10:00)
[2017-03-28] MEDS ORDERED: Calcium-Vit D 250 mg-125 Units Tab UD PO SCH (10:00)
[2017-03-28] MEDS ORDERED: Pneumoc 13 Val Conjugate Vaccine Inj IM ONE (10:00)
--- NOTE | 2017-03-30 19:50 | PCM.HF ---
Heart Failure Core Measure - Heart Failure Left Ventricular Function to be assessed after discharge: Yes SHONDA Inhibitor Prescribed: Yes Beta-Yonis Prescribed: Carvedilol Angiotensin II Receptor Yonis Prescribed: No Contraindication/Reason for not providing: Pt. on SHONDA inhib AnticoagulationTherapy for Atrial Fibrillation/Atrialflutter: Yes Aldosterone Antagonist Prescribed: No Contraindication/Reason for not providing: on hydralazine Hydralazine Nitrate Prescribed: Yes Implantable Cardioverter Defibrillator Therapy: No Contraindication/Reason for not providing: As per Cardio Cardiac Resynchronization Therapy Prescribed: No Contraindication/Reason for not providing: As per Cardio - Follow up Will be discharged to: Home Follow Up Date (must be within 7 days from discharge): 04/02/17 Follow Up Time: 09:00
== END 2017-03-27 19:56 | disposition home or self-care (01) | DRG 293 ==
LOC: C.ER 07:51 → C.9E 09:03 → C.6T 13:28 → OBSVTOIN 03-27 09:08
PROVIDERS: ADMIT Internal Medicine; ATTEND Internal Medicine
DX: I11.0 Hypertensive heart disease with heart failure (principal); D73.5 Infarction of spleen; Z79.01 Long term (current) use of anticoagulants; D73.89 Other diseases of spleen; I48.91 Unspecified atrial fibrillation; J44.9 Chronic obstructive pulmonary disease, unspecified; G47.33 Obstructive sleep apnea (adult) (pediatric); I25.10 Atherosclerotic heart disease of native coronary artery without angina pectoris; F41.9 Anxiety disorder, unspecified; I50.9 Heart failure, unspecified; J45.909 Unspecified asthma, uncomplicated; F14.90 Cocaine use, unspecified, uncomplicated; Z72.0 Tobacco use

== ENCOUNTER 2017-04-11 21:44 | Inpatient (IN) | payer MEDICARE, MEDICAID ==
[2017-04-11 21:44] VITALS: PULSE 82; BMI 54.5
[2017-04-11 22:41] LABS: BASO # 0.1 K/uL (0.0-0.2); BASO % 0.5 % (0.0-2.0); EOS % 0.4 % (0.0-4.0); HEMATOCRIT 38.2 % (35.0-51.0); LYMPH % 19.6 % (20.0-40.0); MEAN CELL VOLUME 83.8 fL (80.0-94.0); MEAN CORPUSCULAR HEMOGLOBIN 26.3 pg (27.0-31.0); MEAN CORPUSCULAR HGB CONC 31.4 g/dL (33.0-37.0); MEAN PLATELET VOLUME 7.8 fL (7.2-11.7); MONO # 1.4 K/uL (0.0-0.8); MONO % 13.7 % (0.0-10.0); RED CELL DISTRIBUTION WIDTH 20.7 % (11.5-14.5); WHITE BLOOD COUNT 10.3 K/uL (4.8-10.8)
[2017-04-11 23:02] LABS: CHLORIDE 94 mmol/L (98-107)
[2017-04-11 23:03] LABS: POTASSIUM 3.7 mmol/L (3.6-5.2); SODIUM 133 mmol/L (132-148)
[2017-04-11 23:05] LABS: ALB/GLOB RATIO 0.8 (1.0-2.1); ALKALINE PHOSPHATASE 62 U/L (38-126); BILIRUBIN,TOTAL 2.3 mg/dL (0.2-1.3); BLOOD UREA NITROGEN 28 mg/dL (9-20); CARBON DIOXIDE 25 mmol/L (22-30); GFR AFRICAN-AMERICAN > 60; TOTAL PROTEIN 8.6 g/dL (6.3-8.3)
[2017-04-11 23:06] LABS: ALCOHOL SERUM < 10 mg/dl (0-10); ALT/SGPT 834 U/L (21-72); GLUCOSE,RANDOM 108 mg/dL (75-110)
--- NOTE | 2017-04-11 23:26 | C.PDOC ---
History Of Present Illness A 46 y/o male presents to the ER c/o increased shortness of breath, palpitations , and anxiety today. Pt denies fever, chills, nausea, vomiting, chest pain, abdominal pain, or any other complaints. Time Seen by Provider: 04/11/17 22:22 Chief Complaint (Nursing): Medical Clearance History Per: Patient History/Exam Limitations: no limitations Onset/Duration Of Symptoms: Hrs Current Symptoms Are (Timing): Still Present Severity: Mild Recent travel outside of the [place]: No Additional History Per: Patient Past Medical History Reviewed: Historical Data, Nursing Documentation, Vital Signs Vital Signs: Last Vital Signs Temp 99.2 F 04/12/17 02:33 Pulse 147 H 04/12/17 03:18 Resp 22 04/12/17 03:18 BP 121/71 04/12/17 02:33 Pulse Ox 96 04/12/17 02:33 - Medical History PMH: Anxiety, Asthma, Atrial Fibrillation, Back Problems, Bipolar Disorder, CAD , Cardia Arrhythmia, CHF, COPD, Depression, Emphysema, HTN, Hypercholesterolemia , Peripheral Edema, Sleep Apnea, Chronic Pain (Lower Back Pain) Denies: Chronic Kidney Disease Surgical History: Appendectomy (2008), Coronary Stent (2008 - 2012 4 stents) - [facility] Procedures CORONAR ARTERIOGR-2 CATH (07/06/13) DRAINAGE OF SPLEEN, PERCUTANEOUS APPROACH (03/05/17) INJECT/INFUSE NEC (02/22/14) LEFT HEART CARDIAC CATH (07/06/13) LT HEART ANGIOCARDIOGRAM (07/06/13) NEBULIZER THERAPY (03/28/14) NON-INVASIVE MECHANICAL VENTILATION (03/26/15) TRANSFUSE NONAUT FROZEN PLASMA IN PERIPH VEIN, PERC (02/21/17) Family History: States: Unknown Family Hx, CAD, Diabetes - Social History Hx Tobacco Use: Yes Hx Alcohol Use: No Hx Substance Use: Yes - Immunization History Hx Tetanus Toxoid Vaccination: Yes Hx Influenza Vaccination: Yes Hx Pneumococcal Vaccination: Yes (08/2014) Review Of Systems Except As Marked, All Systems Reviewed And Found Negative. Constitutional: Positive for: Other (Anxiety). Negative for: Fever, Chills Cardiovascular: Positive for: Palpitations. Negative for: Chest Pain Respiratory: Positive for: Shortness of Breath Gastrointestinal: Negative for: Nausea, Vomiting, Abdominal Pain Physical Exam - Physical Exam Appears: Non-toxic, No Acute Distress, Other (Bizzare. Hyperactive. Yelling) Skin: Warm, Dry Head: Atraumatic, Normacephalic Eye(s): bilateral: Normal Inspection Chest: Symmetrical, No Tenderness Cardiovascular: Rhythm Irregular (Tachycardic), No Murmur Respiratory: Normal Breath Sounds, No Rales, No Rhonchi, No Wheezing Extremity: No Pedal Edema, Capillary Refill (<2sec), Swelling (Stasis dermatitis of lower extremities) Neurological/Psych: Oriented x3, Normal Speech, Normal Cognition ED Course And Treatment - Laboratory Results Result Diagrams: 04/11/17 22:38 04/11/17 22:38 O2 Sat by Pulse Oximetry: 91 (RA) Pulse Ox Interpretation: Abnormal Critical Care Time - Critical Care Note Total Time (in mins): 90 Documented critical care: time excludes all time spent performing seperately billable procedures. Medical Decision Making Medical Decision Making: Plans: -EKG -Blood labs -CXR -Albuterol 2x -Xanax -Lanoxin -Cardizem 4x -Prozac -Lasix -Ativan 2x -Zofran -Protonix -IV fluids -Reassess and disposition per Dr. Ocampo- unable to anti-coagulate due to retroperitoneal/splenic bleed on heparin prior. So pt is not "allergic" to heparin nor its derivatives, but contraindicated in this pt with h/o significant bleed. Recommends PO Cardizem and no drip- partially due to pt's combative nature and difficulty to maintain IV access/meds. Disposition Doctor Will See Patient In The: Hospital Counseled Patient/Family Regarding: Studies Performed, Diagnosis - Disposition Disposition: HOSPITALIZED Disposition Time: 00:25 Condition: GOOD - Clinical Impression Clinical Impression: Anxiety, Benzodiazepine abuse, CHF (congestive heart failure), Atrial fibrillation with rapid ventricular response - Scribe Statement The provider has reviewed the documentation as recorded by the Scribe Beatrice alas All medical record entries made by the Scribe were at my direction and personally dictated by me. I have reviewed the chart and agree that the record accurately reflects my personal performance of the history, physical exam, medical decision making, and the department course for this patient. I have also personally directed, reviewed, and agree with the discharge instructions and disposition.
[2017-04-11] MEDS ORDERED: Heparin 25,000units in D5W 25,000 UNITS/250 ML BAG IV ONE (23:52)
--- NOTE | 2017-04-11 23:52 | CP.PCM.HP ---
History of Present Illness - History of Present Illness History of Present Illness: Please note H&P is very brief as patient was under in the influence and agitated and combative and uncooperative Patient has threatened to sign out AMA on 2 occasions CC: no pills at home HPI: 46M with PMH of HTN, CAD, CHF, Afib on coumadin, COPD, ARLENE, bipolar disorder, chronic back pain, herniated discs, presenting to [facility] (formerly [facility]) as he has "no pills at home." He was agitated and thrashing around his bed stating he has been unable to sleep in 2 days and that he last used 1gram of cocaine 4 days ago. He denies any alcohol or tobacco abuse. He also reports that he has not voided or had a BM in two days and has not eaten in two days. Patient states he has not taken any prescribed medications in 2.5 weeks. He is AO x 3. He admitted to headaches and dizziness. PMH: HTN, CAD, CHF, Afib, COPD, ARLENE, Herniated discs L-spine, Bipolar/Depression , Asthma Meds: Diltiazem, ASA, Carvedilol, warfarin, digoxin, enalapril, percocet, cyclobenzaprine, HCTZ, k-dur, Lasix, Albuterol, Prozac, Simvastatin, Montelukast , Tizanidine, Xanax, Gabapentin. Allergy: Apixaban, clopidogrel, enoxaparin, Morphine PSH: Appendectomy (2008), Coronary stents x4 ([id number]) Hosp: multiple admissions recently for SOB, splenic hematoma and bacteremia. Last admission March 2017 for abdominal pain- he was discharged on abx FH: Did not provide Social: Denies tobacco use- wears a nicotine patch. Social alcohol use; Admits to Cocaine use ROS: unobtainable Present on Admission - Present on Admission Any Indicators Present on Admission: No Review of Systems - Review of Systems Systems not reviewed;Unavailable: Altered Mental Status, Uncooperative Past Patient History - Infectious Disease Hx of Infectious Diseases: None - Tetanus Immunizations Tetanus Immunization: Up to Date - Past Medical History & Family History Past Medical History?: Yes - Past Social History Smoking Status: Former Smoker - CARDIAC Hx Atrial Fibrillation: Yes Hx Cardia Arrhythmia: Yes Hx Congestive Heart Failure: Yes Hx Hypercholesterolemia: Yes Hx Hypertension: Yes Hx Peripheral Edema: Yes - PULMONARY Hx Asthma: Yes Hx Chronic Obstructive Pulmonary Disease (COPD): Yes Hx Emphysema: Yes Hx Sleep Apnea: Yes - NEUROLOGICAL Hx Neurological Disorder: No - HEENT Hx HEENT Problems: No - RENAL Hx Chronic Kidney Disease: No - ENDOCRINE/METABOLIC Hx Endocrine Disorders: No - HEMATOLOGICAL/ONCOLOGICAL Hx Blood Disorders: Yes - INTEGUMENTARY Hx Dermatological Problems: No - MUSCULOSKELETAL/RHEUMATOLOGICAL Hx Falls: Yes - GASTROINTESTINAL Hx Gastrointestinal Disorders: Yes - GENITOURINARY/GYNECOLOGICAL Hx Genitourinary Disorders: No - PSYCHIATRIC Hx Anxiety: Yes Hx Bipolar Disorder: Yes Hx Depression: Yes Hx Substance Use: Yes - SURGICAL HISTORY Hx Appendectomy: Yes (2008) Hx Coronary Stent: Yes (2008 - 2012 4 stents) - ANESTHESIA Hx Anesthesia: Yes Hx Anesthesia Reactions: No Hx Malignant Hyperthermia: No Meds Allergies/Adverse Reactions: Allergies Allergy/AdvReac Type Severity Reaction Status Date / Time apixaban [From Eliquis] Allergy RASH Verified 04/11/17 22:05 clopidogrel bisulfate Allergy RASH Verified 04/11/17 22:05 [From Plavix] enoxaparin sodium Allergy RASH Verified 04/11/17 22:05 [From Lovenox] morphine Allergy RASH Verified 04/11/17 22:05 Physical Exam - Constitutional Appears: Unkempt, Combative, Agitated - Head Exam Head Exam: NORMOCEPHALIC - Respiratory Exam Respiratory Exam: absent: Accessory Muscle Use, Respiratory Distress - Cardiovascular Exam Cardiovascular Exam: Tachycardia - Psychiatric Exam Psychiatric exam: Agitated, Manic Results - Vital Signs Recent Vital Signs: Last Vital Signs Temp 97.6 F 04/11/17 22:02 Pulse 158 H 04/11/17 22:02 Resp 22 04/11/17 22:02 BP 152/107 H 04/11/17 22:02 Pulse Ox 91 L 04/11/17 23:26 - Labs Result Diagrams: 04/11/17 22:38 04/11/17 22:38 Labs: Laboratory Results - last 24 hr 04/11/17 04/11/17 22:38 22:38 WBC 10.3 RBC 4.56 Hgb 12.0 Hct 38.2 MCV 83.8 MCH 26.3 L MCHC 31.4 L RDW 20.7 H Plt Count 299 D MPV 7.8 Neut % (Auto) 65.8 Lymph % (Auto) 19.6 L [place] % (Auto) 13.7 H Eos % (Auto) 0.4 Baso % (Auto) 0.5 Neut # 6.8 Lymph # 2.0 Bryan # 1.4 H Eos # 0.0 Baso # 0.1 Sodium 133 Potassium 3.7 Chloride 94 L Carbon Dioxide 25 Anion Gap 18 BUN 28 H Creatinine 1.2 Est GFR ( Amer) > 60 Est GFR (Non-Af Amer) > 60 Random Glucose 108 Calcium 9.0 Total Bilirubin 2.3 H ALT 834 H D Alkaline Phosphatase 62 Troponin I 0.1010 NT-Pro-B Natriuret Pep 79044 H Total Protein 8.6 H Albumin 3.8 Globulin 4.8 H Albumin/Globulin Ratio 0.8 L Alcohol, Quantitative < 10 Assessment & Plan - Assessment and Plan (Free Text) Assessment: 46M with PMH of HTN, CAD, CHF, Afib on coumadin, COPD, ARLENE, bipolar disorder, chronic back pain, herniated discs, presenting to [facility] (formerly [facility]) as he has "no pills at home." Plan: 1. AFIB with RVR Admite to TELE Cardizem 30mg po q6H Digoxin 0.125 mg PO daily hold coumadin f/u Coags 2. COPD f/u CXR O2 2LNC Duonebs Singulair 10 mg PO HS Ventolin 3. CHF f/u CXR Digoxin 0.125 mg PO daily Lasix 40 mg IVP BID hold home medications I's & O's daily weight 4. HTN Lasix 40 mg IVP BID Cardizem 30mg po q6h 5. CAD hold home medications 6. ARLENE CPAP at night 7. Anxiety and depression Prozac 40mg po daiy Xanax 1mg po qid 8. Agitation and AMS Patient refusing UDS 8. Prophylactic Measures Protonix 40 mg PO daily VTE ppx c/i Patient refusing SCDs zofran PRN Nicotine patch Accuchecks ISS Heart Healthy Diet Plan discussed with Dr. Terrence Mcgregor PGY1
[2017-04-12 00:35] LABS: VENOUS BLOOD GAS BASE EXCESS 2.3 mmol/L (0.0-2.0); VENOUS BLOOD GAS PCO2 39 mmHg (40-60); VENOUS BLOOD PH 7.44 (7.32-7.43)
[2017-04-12] MEDS ORDERED: Albuterol HFA 90 mcg/actuation (8 g) INH PRN (00:38)
[2017-04-12 04:03] LABS: AST/SGOT 1375 U/L (17-59)
[2017-04-12] MEDS: (Novolog) Insulin Aspart, Recombinant 100 u/ml 10 ml vial SC SCH ×2 (08:00→13:09)
[2017-04-12] MEDS: Albuterol-Ipratrop 3 mg / 0.5 (3 ml) UD INH SCH ×2 (08:14→13:36)
--- NOTE | 2017-04-12 09:14 | RAD ---
PROCEDURE: CHEST RADIOGRAPH, 1 VIEW HISTORY: SOB COMPARISON: Comparison is made to 03/25/2017 FINDINGS: LUNGS: Moderate pulmonary vascular congestion PLEURA: No pneumothorax or pleural fluid seen. CARDIOVASCULAR: Cardiomegaly is again noted. OSSEOUS STRUCTURES: No significant abnormalities. VISUALIZED UPPER ABDOMEN: Normal. OTHER FINDINGS: None. IMPRESSION: Cardiomegaly and pulmonary vascular congestion suggestive of congestive heart failure.
--- NOTE | 2017-04-12 09:57 | CP.PCM.PN ---
<Maggie Rosales - Last Filed: 04/12/17 14:18> Subjective - Date & Time of Evaluation Date of Evaluation: 04/12/17 Time of Evaluation: 09:54 - Subjective Subjective: Medicine Progress Note Patient seen and examined. Patient states that he has not taken any of his medications for the past 2 weeks. Per patient, he denies feeling confused and states that he feels normal. Patient is hungry and requesting breakfast this morning. Patient appears to be intoxicated and is aggressive. Several code zach called after patient became disruptive and was threatening his roommate. armored car guard called to room. 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 After speaking with patient, he agreed to take his medications in the afternoon. The patient has threatened to leave AMA multiple times but then changes his mind. Patient complains of feeling short of breath but is ambulating the halls without difficulty. Patient denies feeling confused and is AAOx3. Objective - Vital Signs/Intake and Output Vital Signs (last 24 hours): Temp Pulse Resp BP Pulse Ox 99.2 F 147 H 22 121/71 91 L 04/12/17 02:33 04/12/17 03:18 04/12/17 03:18 04/12/17 02:33 04/12/17 06:10 - Medications Medications: Current Medications Albuterol (Ventolin Hfa 90 Mcg/Actuation (8 G)) 1 puff INH RQ6 PRN PRN Reason: Shortness of Breath Albuterol/Ipratropium (Duoneb 3 Mg/0.5 Mg (3 Ml) Ud) 3 ml INH RQ6 [facility] Last Admin: 04/12/17 08:14 Dose: Not Given Alprazolam (Xanax) 1 mg PO QID [facility] Last Admin: 04/12/17 00:46 Dose: 1 mg Digoxin (Lanoxin) 0.125 mg PO DAILY@1800 [facility] Diltiazem HCl (Cardizem) 30 mg PO Q6H [facility] Last Admin: 04/12/17 04:45 Dose: 30 mg Fluoxetine HCl (Prozac) 40 mg PO DAILY [facility] Insulin Aspart (Novolog) 0 unit SC ACHS JEIMY PRN Reason: Protocol Last Admin: 04/12/17 08:00 Dose: Not Given Nicotine (Nicoderm Cq) 1 patch TD DAILY [facility] Ondansetron HCl (Zofran Inj) 4 mg IVP Q6H PRN PRN Reason: Nausea/Vomiting Pantoprazole Sodium (Protonix Ec Tab) 40 mg PO DAILY JEIMY - Constitutional Appears: Unkempt, Combative, Agitated - Head Exam Head Exam: ATRAUMATIC, NORMOCEPHALIC - Eye Exam Eye Exam: EOMI - ENT Exam ENT Exam: Mucous Membranes Moist - Neck Exam Neck Exam: Normal Inspection - Respiratory Exam Respiratory Exam: Decreased Breath Sounds, Clear to Ausculation Bilateral, NORMAL BREATHING PATTERN Additional comments: large body habitus - Cardiovascular Exam Cardiovascular Exam: Tachycardia, +S1, +S2 - GI/Abdominal Exam GI & Abdominal Exam: Distended (central obesity ), Soft, Normal Bowel Sounds. absent: Tenderness - Neurological Exam Neurological Exam: Alert, Awake, CN II-XII Intact, Normal Gait, Oriented x3 - Psychiatric Exam Psychiatric exam: Agitated, Manic - Skin Skin Exam: Dry, Intact, Normal Color, Warm Assessment and Plan - Assessment and Plan (Free Text) Assessment: 1. AFIB with RVR Patient refusing telemetry, will transfer to medical floor Cardizem 30mg po q6H Digoxin 0.125 mg PO daily hold coumadin f/u Coags 2. COPD O2 2LNC Duonebs 3ml INH q6h JEIMY Singulair 10 mg PO HS Ventolin 3. CHF CXR Digoxin 0.125 mg PO daily Lasix 40 mg IVP BID hold home medications I's & O's daily weight 4. HTN Lasix 40 mg IVP BID Cardizem 30mg po q6h 5. CAD hold home medications 6. ARLENE CPAP at night 7. Anxiety and depression Prozac 40mg po daiy Xanax 1mg po qid 8. Non-compliance Patient refusing blood work and refusing to take medications Counseled on importance of medical compliance Dr Cai (psych) consulted to evaluate patient 8. Prophylactic Measures Protonix 40 mg PO daily VTE ppx c/i Patient refusing SCDs zofran PRN Nicotine patch Accuchecks ISS Heart Healthy Diet Plan discussed with Dr. Ocampo <Roque Ocampo Jr. - Last Filed: 04/13/17 10:10> Objective - Vital Signs/Intake and Output Vital Signs (last 24 hours): Temp Pulse Resp BP Pulse Ox 98.7 F 82 20 143/78 95 04/12/17 13:29 04/12/17 13:29 04/12/17 13:29 04/12/17 13:29 04/12/17 13:29 Attending/Attestation - Attestation I have personally seen and examined this patient.: Yes I have fully participated in the care of the patient.: Yes I have reviewed all pertinent clinical information, including history, physical exam and plan: Yes Notes (Text): 04/13/17 10:09 Agree with resident note and findings
[2017-04-12] MEDS: Pantoprazole 40 mg EC Tab PO SCH ×2 (10:11→13:11)
[2017-04-12 13:31] VITALS: BP 143/78; PULSE 82; RESP 20; TEMP 98.7; O2SAT 95
[2017-04-12 13:53] LABS: RBC URINE < 1 /hpf (0-3); URINE BILIRUBIN NEGATIVE (NEGATIVE); URINE BLOOD NEGATIVE (NEGATIVE); URINE COLOR Yellow (YELLOW); URINE GLUCOSE (UA) NORMAL (Normal); URINE KETONE NEGATIVE (NEGATIVE); URINE LEUKOCYTE ESTERASE NEG Leu/uL (Negative); URINE PROTEIN 1+ mg/dL (NEGATIVE); WBC URINE 1 /hpf (0-5)
[2017-04-12] MEDS ORDERED: Digoxin 125 mcg (0.125 mg) Tab PO SCH (18:00)
--- NOTE | 2017-04-12 18:55 | CP.PCM.DIS ---
Provider - Provider Date of Admission: 04/12/17 00:16 Attending physician: Roque Ocampo Jr, MD Time Spent in preparation of Discharge (in minutes): 90 Hospital Course - Lab Results Lab Results: Most Recent Lab Values WBC 10.3 K/uL (4.8-10.8) 04/11/17 22:38 RBC 4.56 Mil/uL (4.40-5.90) 04/11/17 22:38 Hgb 12.0 g/dL (12.0-18.0) 04/11/17 22:38 Hct 38.2 % (35.0-51.0) 04/11/17 22:38 MCV 83.8 fL (80.0-94.0) 04/11/17 22:38 MCH 26.3 pg (27.0-31.0) L 04/11/17 22:38 MCHC 31.4 g/dL (33.0-37.0) L 04/11/17 22:38 RDW 20.7 % (11.5-14.5) H 04/11/17 22:38 Plt Count 299 K/uL (130-400) D 04/11/17 22:38 MPV 7.8 fL (7.2-11.7) 04/11/17 22:38 Neut % (Auto) 65.8 % (50.0-75.0) 04/11/17 22:38 Lymph % (Auto) 19.6 % (20.0-40.0) L 04/11/17 22:38 [place] % (Auto) 13.7 % (0.0-10.0) H 04/11/17 22:38 Eos % (Auto) 0.4 % (0.0-4.0) 04/11/17 22:38 Baso % (Auto) 0.5 % (0.0-2.0) 04/11/17 22:38 Neut # 6.8 K/uL (1.8-7.0) 04/11/17 22:38 Lymph # 2.0 K/uL (1.0-4.3) 04/11/17 22:38 [place] # 1.4 K/uL (0.0-0.8) H 04/11/17 22:38 Eos # 0.0 K/uL (0.0-0.7) 04/11/17 22:38 Baso # 0.1 K/uL (0.0-0.2) 04/11/17 22:38 pO2 52 mm/Hg (30-55) 04/12/17 00:32 VBG pH 7.44 (7.32-7.43) H 04/12/17 00:32 VBG pCO2 39 mmHg (40-60) L 04/12/17 00:32 VBG HCO3 26.5 mmol/L 04/12/17 00:32 VBG Total CO2 27.7 mmol/L (22-28) 04/12/17 00:32 VBG O2 Sat (Calc) 88.9 % (40-65) H 04/12/17 00:32 VBG Base Excess 2.3 mmol/L (0.0-2.0) H 04/12/17 00:32 VBG Potassium 3.7 mmol/L (3.6-5.2) 04/12/17 00:32 Sodium 134.0 mmol/l (132-148) 04/12/17 00:32 Chloride 100.0 mmol/L (98-107) 04/12/17 00:32 Glucose 128 mg/dl (75-110) H 04/12/17 00:32 Lactate 2.6 mmol/L (0.7-2.1) H 04/12/17 00:32 Sodium 133 mmol/L (132-148) 04/11/17 22:38 Potassium 3.7 mmol/L (3.6-5.2) 04/11/17 22:38 Chloride 94 mmol/L (98-107) L 04/11/17 22:38 Carbon Dioxide 25 mmol/L (22-30) 04/11/17 22:38 Anion Gap 18 (10-20) 04/11/17 22:38 BUN 28 mg/dL (9-20) H 04/11/17 22:38 Creatinine 1.2 MG/DL (0.8-1.5) 04/11/17 22:38 Est GFR ( Amer) > 60 04/11/17 22:38 Est GFR (Non-Af Amer) > 60 04/11/17 22:38 POC Glucose (mg/dL) 177 mg/dL (65-110) H 04/12/17 17:18 Random Glucose 108 mg/dL (75-110) 04/11/17 22:38 Calcium 9.0 mg/dl (8.6-10.4) 04/11/17 22:38 Total Bilirubin 2.3 mg/dL (0.2-1.3) H 04/11/17 22:38 AST 1375 U/L (17-59) H 04/11/17 22:38 ALT 834 U/L (21-72) H D 04/11/17 22:38 Alkaline Phosphatase 62 U/L (38-126) 04/11/17 22:38 Troponin I 0.1010 ng/mL (0.00-0.120) 04/11/17 22:38 NT-Pro-B Natriuret Pep 42612 pg/mL (0-450) H 04/11/17 22:38 Total Protein 8.6 g/dL (6.3-8.3) H 04/11/17 22:38 Albumin 3.8 g/dL (3.5-5.0) 04/11/17 22:38 Globulin 4.8 gm/dL (2.2-3.9) H 04/11/17 22:38 Albumin/Globulin Ratio 0.8 (1.0-2.1) L 04/11/17 22:38 Venous Blood Potassium 3.7 mmol/L (3.6-5.2) 04/12/17 00:32 Urine Color Yellow (YELLOW) 04/12/17 13:36 Urine Clarity Clear (Clear) 04/12/17 13:36 Urine pH 6.0 (5.0-8.0) 04/12/17 13:36 Ur Specific [place] 1.016 (1.003-1.030) 04/12/17 13:36 Urine Protein 1+ mg/dL (NEGATIVE) H 04/12/17 13:36 Urine Glucose (UA) Normal mg/dL (Normal) 04/12/17 13:36 Urine Ketones Negative mg/dL (NEGATIVE) 04/12/17 13:36 Urine Blood Negative (NEGATIVE) 04/12/17 13:36 Urine Nitrate Negative (NEGATIVE) 04/12/17 13:36 Urine Bilirubin Negative (NEGATIVE) 04/12/17 13:36 Urine Urobilinogen 4.0 mg/dL (0.2-1.0) 04/12/17 13:36 Ur Leukocyte Esterase Neg Nancie/uL (Negative) 04/12/17 13:36 Urine WBC (Auto) 1 /hpf (0-5) 04/12/17 13:36 Urine RBC (Auto) < 1 /hpf (0-3) 04/12/17 13:36 Urine Opiates Screen Negative (NEGATIVE) 04/12/17 13:36 Urine Methadone Screen Negative (NEGATIVE) 04/12/17 13:36 Ur Barbiturates Screen Negative (NEGATIVE) 04/12/17 13:36 Ur Phencyclidine Scrn Positive (NEGATIVE) 04/12/17 13:36 Ur Amphetamines Screen Negative (NEGATIVE) 04/12/17 13:36 U Benzodiazepines Scrn Positive (NEGATIVE) 04/12/17 13:36 U Oth Cocaine Metabols Positive (NEGATIVE) 04/12/17 13:36 U Cannabinoids Screen Negative (NEGATIVE) 04/12/17 13:36 Alcohol, Quantitative < 10 mg/dl (0-10) 04/11/17 22:38 - Hospital Course Hospital Course: HPI: 46M with PMH of HTN, CAD, CHF, Afib on coumadin, COPD, ARLENE, bipolar disorder, chronic back pain, herniated discs, presenting to [facility] as he has "no pills at home." He was agitated and thrashing around his bed stating he has been unable to sleep in 2 days and that he last used 1gram of cocaine 4 days ago. He denies any alcohol or tobacco abuse. He also reports that he has not voided or had a BM in two days and has not eaten in two days. Patient states he has not taken any prescribed medications in 2.5 weeks. He is AO x 3. He admitted to headaches and dizziness. Patient was admitted for A fib with RVR that was seen on telemetry in the ED. The patient was admitted to the telemetry floor but the patient was refusing telemetry, blood work, and his medications. Patient appeared to be intoxicated and was aggressive. Several code zach called after patient became disruptive and was threatening his roommate. construction site crossing guard called to room. 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 After speaking with patient, he agreed to take his medications in the afternoon. The patient has threatened to leave AMA multiple times but then changes his mind. Patient complains of feeling short of breath but is ambulating the halls without difficulty. Patient denies feeling confused and is AAOx3. Patient was upset because he had lost his medications in the ED on his previous visit. construction site crossing guard found the medications in the lost and found and the patient was calmer. Patient then decided to sign out AMA after he took a nap because he stated "there's no point staying because now I have my medications with me and I can take them at home." Patient was advised about risks of leaving AMA and understands. Forms were signed and patient was escorted by security. *This is a brief summary of the hospital course. Please see reports for more details. - Constitutional Appears: Unkempt, Combative, Agitated - Head Exam Head Exam: ATRAUMATIC, NORMOCEPHALIC - Eye Exam Eye Exam: EOMI - ENT Exam ENT Exam: Mucous Membranes Moist - Neck Exam Neck Exam: Normal Inspection - Respiratory Exam Respiratory Exam: Decreased Breath Sounds, Clear to Ausculation Bilateral, NORMAL BREATHING PATTERN Additional comments: large body habitus - Cardiovascular Exam Cardiovascular Exam: Tachycardia, +S1, +S2 - GI/Abdominal Exam GI & Abdominal Exam: Distended (central obesity ), Soft, Normal Bowel Sounds. absent: Tenderness - Neurological Exam Neurological Exam: Alert, Awake, CN II-XII Intact, Normal Gait, Oriented x3 - Psychiatric Exam Psychiatric exam: Agitated, Manic - Skin Skin Exam: Dry, Intact, Normal Color, Warm 1. AFIB with RVR Patient refusing telemetry Cardizem 30mg po q6H Digoxin 0.125 mg PO daily hold coumadin f/u Coags 2. COPD O2 2LNC Duonebs 3ml INH q6h JEIMY Singulair 10 mg PO HS Ventolin 3. CHF CXR Digoxin 0.125 mg PO daily Lasix 40 mg IVP BID hold home medications I's & O's daily weight 4. HTN Lasix 40 mg IVP BID Cardizem 30mg po q6h 5. CAD hold home medications 6. ARLENE CPAP at night 7. Anxiety and depression Prozac 40mg po daiy Xanax 1mg po qid 8. Non-compliance Patient refusing blood work and refusing to take medications Counseled on importance of medical compliance Dr Cai (psych) consulted to evaluate patient Discharge Plan - Follow Up Plan Condition: FAIR Disposition: AGAINST MEDICAL ADVICE
--- NOTE | 2017-04-16 15:05 | CARD ---
APPROVED REPORT EKG Measurement Heart [id number] <Conclusion> Atrial fibrillation with rapid ventricular response Left anterior fascicular block Inferior-posterior infarct, age undetermined ST & T wave abnormality, consider lateral ischemia Abnormal ECG
== END 2017-04-12 19:00 | disposition left against medical advice (07) | DRG 310 ==
LOC: C.ER 21:44 → C.6T 04-12 00:16
PROVIDERS: ADMIT Internal Medicine; ATTEND Internal Medicine
DX: I48.91 Unspecified atrial fibrillation (principal); I50.9 Heart failure, unspecified; F13.10 Sedative, hypnotic or anxiolytic abuse, uncomplicated; R06.02 Shortness of breath; F14.10 Cocaine abuse, uncomplicated; I10 Essential (primary) hypertension; F41.9 Anxiety disorder, unspecified; I25.10 Atherosclerotic heart disease of native coronary artery without angina pectoris; J43.9 Emphysema, unspecified; G47.33 Obstructive sleep apnea (adult) (pediatric); M51.26 Other intervertebral disc displacement, lumbar region; Z87.891 Personal history of nicotine dependence; Z79.01 Long term (current) use of anticoagulants; Z95.5 Presence of coronary angioplasty implant and graft; Z91.14 Patient's other noncompliance with medication regimen; F31.9 Bipolar disorder, unspecified

== ENCOUNTER 2017-04-23 14:55 | Inpatient (IN) | payer MEDICARE, MEDICAID ==
[2017-04-23 14:56] VITALS: BMI 54.5
--- NOTE | 2017-04-23 15:11 | C.PDOC ---
History Of Present Illness 46 y/o male presents to the ED with complains of recurring LUQ/LLQ pain since this morning, "similar to when I had bleeding in my spleen." Also complains of abdominal distention, bladder fullness and distention. No urine output since this morning. Denies fever, nausea, vomiting or any other complaints. Pt was scheduled to see PMD today but office cancelled appointments, pt states "I can' t wait til tomorrow." Denies recent drug use. RECUR LUQ/LLQ PAIN SINCE THIS MORNING "SIM TO WHEN I HAD BLEEDING IN MY SPLEEN" . CO ABD DISTENTION. NO URINE SINCE THIS MORNING. CO BLADDER FULLNESS, DISTENTION. NO FEVER, NV. WAS SCHEDULED TO SEE PMD TODAY BUT OFFICE CANCELED APPTS, STATES "I CANT WAIT TILL TOMORROW" DENIES RECENT DRUG USE. PMH of HTN, CAD, CHF, Afib on coumadin, COPD, ARLENE, bipolar disorder, chronic back pain, herniated discs, ADMITTED 04/12, LEFT AMA EXAM MILD DIST NONTOXIC LUNGS NEG ABD OBESE NO FOCAL TEND SOFT NO R/G LEGS 2+ PITTING EDEMA REMAINDE RNEG Time Seen by Provider: 04/23/17 15:08 Chief Complaint (Nursing): Chest Pain History Per: Patient History/Exam Limitations: no limitations Onset/Duration Of Symptoms: Hrs Current Symptoms Are (Timing): Still Present Severity: Moderate Quality: "Pain" Modifying Factors: None Alleviating Factors: None Recent travel outside of the [place]: No Past Medical History Reviewed: Historical Data, Nursing Documentation, Vital Signs Vital Signs: Last Vital Signs Temp 97.3 F L 04/23/17 15:01 Pulse 84 04/23/17 17:20 Resp 18 04/23/17 17:20 BP 134/69 04/23/17 17:20 Pulse Ox 91 L 04/23/17 17:20 - Medical History PMH: Anxiety, Asthma, Atrial Fibrillation, Back Problems, Bipolar Disorder, CAD , Cardia Arrhythmia, CHF, COPD, Depression, Emphysema, HTN, Hypercholesterolemia , Peripheral Edema, Sleep Apnea, Chronic Pain (Lower Back Pain) Surgical History: Appendectomy (2008), Coronary Stent (2008 - 2012 4 stents) - [facility] Procedures CORONAR ARTERIOGR-2 CATH (07/06/13) DRAINAGE OF SPLEEN, PERCUTANEOUS APPROACH (03/05/17) INJECT/INFUSE NEC (02/22/14) LEFT HEART CARDIAC CATH (07/06/13) LT HEART ANGIOCARDIOGRAM (07/06/13) NEBULIZER THERAPY (03/28/14) NON-INVASIVE MECHANICAL VENTILATION (03/26/15) TRANSFUSE NONAUT FROZEN PLASMA IN PERIPH VEIN, PERC (02/21/17) Family History: States: Unknown Family Hx, CAD, Diabetes - Social History Hx Tobacco Use: Yes Hx Alcohol Use: No Hx Substance Use: Yes - Immunization History Hx Tetanus Toxoid Vaccination: Yes Hx Influenza Vaccination: Yes Hx Pneumococcal Vaccination: Yes (08/2014) Review Of Systems Except As Marked, All Systems Reviewed And Found Negative. Constitutional: Negative for: Fever, Chills Gastrointestinal: Positive for: Abdominal Pain, Other (distention). Negative for: Nausea, Vomiting Genitourinary: Positive for: Other (bladder fullness, no urine out put since this morning) Physical Exam - Physical Exam Appears: Non-toxic, In Acute Distress (mild) Skin: Warm, Dry, No Rash Head: Atraumatic, Normacephalic Chest: Symmetrical Cardiovascular: Rhythm Regular, No Murmur Respiratory: Normal Breath Sounds, No Rales, No Rhonchi, No Wheezing Gastrointestinal/Abdominal: Soft, No Tenderness (no focal tenderness), No Guarding, No Rebound, Other (obese) Extremity: Normal ROM, Pedal Edema (2+ bilateral LE pitting edema) Neurological/Psych: Oriented x3, Normal Speech ED Course And Treatment - Laboratory Results Result Diagrams: 04/23/17 16:22 04/23/17 16:22 ECG: Interpreted By Me ECG Rhythm: Atrial Fibrillation, R BBB Interpretation Of ECG: TWI I, AVL RBBB Rate From EC (BPM) Progress - Data Reviewed Data Reviewed: Lab, Diagnostic imaging, EKG, Old records Medical Decision Making Medical Decision Making: Plan: * CT abdomen * CXR * labs * UA * IV fluids Disposition - Disposition Disposition Time: 19:00 Condition: STABLE - Clinical Impression Clinical Impression: Abdominal pain, Congestive heart failure, Cocaine abuse - Scribe Statement The provider has reviewed the documentation as recorded by the Galindo Landa Provider Attestation: All medical record entries made by the Lashawnibpradeep were at my direction and personally dictated by me. I have reviewed the chart and agree that the record accurately reflects my personal performance of the history, physical exam, medical decision making, and the department course for this patient. I have also personally directed, reviewed, and agree with the discharge instructions and disposition. Physician Patient Turnover Patient Signed Over To: Ishan Chew Handoff Comments: DORA CHRISTIE, TRES
[2017-04-23] MEDS ORDERED: HYDROmorphone 0.5 mg/0.5 ml ISec IVP STA (15:47)
--- NOTE | 2017-04-23 16:09 | RAD ---
PROCEDURE: CHEST RADIOGRAPH, 1 VIEW HISTORY: abd pain COMPARISON: None available. FINDINGS: Spell LUNGS: Mild central pulmonary venous congestive changes with what appears represent bilateral lower all atelectasis and/or lobe alveolar-type infiltrates PLEURA: No pneumothorax or pleural fluid seen. CARDIOVASCULAR: Marked cardiomegaly. OSSEOUS STRUCTURES: No significant abnormalities. VISUALIZED UPPER ABDOMEN: Normal. OTHER FINDINGS: None. IMPRESSION: Marked cardiomegaly. Mild central pulmonary venous congestive changes with what appears represent bilateral lower all atelectasis and/or lobe alveolar-type infiltrates
[2017-04-23 16:20] LABS: VENOUS BLOOD GAS BASE EXCESS 5.8 mmol/L (0.0-2.0); VENOUS BLOOD GAS PCO2 50 mmHg (40-60); VENOUS BLOOD PH 7.41 (7.32-7.43)
[2017-04-23 16:24] LABS: BASO # 0.1 K/uL (0.0-0.2); BASO % 1.3 % (0.0-2.0); EOS # 0.2 K/uL (0.0-0.7); EOS % 2.6 % (0.0-4.0); HEMATOCRIT 36.3 % (35.0-51.0); LYMPH # 1.4 K/uL (1.0-4.3); LYMPH % 14.7 % (20.0-40.0); MEAN CELL VOLUME 83.5 fL (80.0-94.0); MEAN CORPUSCULAR HEMOGLOBIN 26.5 pg (27.0-31.0); MEAN CORPUSCULAR HGB CONC 31.7 g/dL (33.0-37.0); MEAN PLATELET VOLUME 7.6 fL (7.2-11.7); MONO # 0.8 K/uL (0.0-0.8); MONO % 8.5 % (0.0-10.0); RED CELL DISTRIBUTION WIDTH 19.2 % (11.5-14.5); WHITE BLOOD COUNT 9.4 K/uL (4.8-10.8)
[2017-04-23 17:10] LABS: CHLORIDE 98 mmol/L (98-107)
[2017-04-23 17:11] LABS: POTASSIUM 4.5 mmol/L (3.6-5.2); SODIUM 134 mmol/L (132-148)
[2017-04-23 17:13] LABS: AST/SGOT 62 U/L (17-59); CARBON DIOXIDE 27 mmol/L (22-30); GFR AFRICAN-AMERICAN > 60
[2017-04-23 17:14] LABS: ALB/GLOB RATIO 0.8 (1.0-2.1); ALKALINE PHOSPHATASE 71 U/L (38-126); ALT/SGPT 108 U/L (21-72); BLOOD UREA NITROGEN 18 mg/dL (9-20); CALCIUM 8.1 mg/dl (8.6-10.4); GLUCOSE,RANDOM 119 mg/dL (75-110)
[2017-04-23] MEDS ORDERED: HYDROmorphone 1 mg/ml ISec ONE (17:25)
[2017-04-23 17:37] LABS: RBC URINE < 1 /hpf (0-3); URINE BILIRUBIN NEGATIVE (NEGATIVE); URINE BLOOD NEGATIVE (NEGATIVE); URINE COLOR Yellow (YELLOW); URINE GLUCOSE (UA) NORMAL (Normal); URINE KETONE TRACE mg/dL (NEGATIVE); URINE LEUKOCYTE ESTERASE NEG Leu/uL (Negative); URINE PROTEIN 1+ mg/dL (NEGATIVE); WBC URINE 1 /hpf (0-5)
--- NOTE | 2017-04-23 19:04 | CT ---
PROCEDURE: CT Abdomen and Pelvis with contrast HISTORY: L SIDED PAIN HO SPLENIC HEMATOMA COMPARISON: Comparison is made to the previous study dated 03/25/2017 TECHNIQUE: Contrast dose: 100 cc of Omnipaque 350. Axial and reformatted coronal and sagittal CT images of the abdomen and pelvis were obtained after IV contrast administration. Radiation dose: Total exam DLP = 1194.1 mGy-cm. This CT exam was performed using one or more of the following dose reduction techniques: Automated exposure control, adjustment of the mA and/or kV according to patient size, and/or use of iterative reconstruction technique. FINDINGS: LOWER THORAX: There is a small of left pleural effusion and trace right pleural effusion. Linear opacity seen at the left lower lobe likely scar tissue. The heart is moderately enlarged. LIVER: Again seen is moderate hepatomegaly. GALLBLADDER AND BILE DUCTS: The gallbladder is not distended. There is a trace pericholecystic fluid and possible gallbladder wall thickening. PANCREAS: Unremarkable. No gross lesion or ductal dilatation. SPLEEN: The spleen is normal in size. Again seen is small fluid collection and air lateral to the spleen which appears smaller compared to the previous exam. Otherwise no interval change in the spleen since the previous study. ADRENALS: Unremarkable. No mass. KIDNEYS AND URETERS: Unremarkable. No hydronephrosis. No solid mass. VASCULATURE: Unremarkable. No aortic aneurysm. BOWEL: Unremarkable. No obstruction. No gross mural thickening. Scattered colonic diverticulosis are seen without evidence of diverticulitis. APPENDIX: No evidence of appendicitis. PERITONEUM: Small ascites seen in the abdomen and pelvis. No evidence of free air. LYMPH NODES: Mild retroperitoneal lymphadenopathy seen. BLADDER: The bladder is collapsed around a Iniguez catheter. REPRODUCTIVE: Unremarkable. BONES: No acute fracture. OTHER FINDINGS: Moderate diffuse soft tissue edema seen. IMPRESSION: Interval decrease in the size of the fluid air collection seen lateral to the spleen since the previous exam. Re- demonstration of small left pleural effusion and trace right pleural effusion. Moderate cardiomegaly. Moderate hepatomegaly. Small ascites in the abdomen and pelvis.
--- NOTE | 2017-04-23 20:01 | CP.PCM.HP ---
History of Present Illness - History of Present Illness History of Present Illness: PGY-1 note for attending, Dr. Ocampo HPI: 46M with PMH of HTN, CAD, CHF, Afib on coumadin, COPD, ARLENE, bipolar disorder, chronic back pain, herniated discs, presenting to [facility] for chest/abdominal pain since this morning. Pt reports that the pain began while he was watching tv this morning at his adult day care center. He describes the pain as located in his left chest and upper abdomen. He rates the pain as 10/10 at the worst this AM, but states the dilaudid in ED has pain as 2/10. He denies nausea, vomiting, diarrhea, but admits constipation. The abdominal pain has also been associated with increasing abdominal distention, leg swelling, and bladder fullness. He admits his leg swelling has increased over the last 2 days , and he has been unable to lay flat, requiring two pillows. He reports that he was unable to urinate all day, until alarcon catheter was placed in ED. He denies previous episodes of urinary retention, hematuria, or BPH. Pt denies recent drug use, admitting last use of cocaine "in February." Pt admits taking his medication inconsistently, but states he takes his "heart pills" daily. PMH: HTN, CAD, CHF, Afib, COPD, ARLENE, Herniated discs L-spine, Bipolar/Depression , Asthma Meds: Diltiazem, ASA, Carvedilol, warfarin, digoxin, enalapril, percocet, cyclobenzaprine, HCTZ, k-dur, Lasix, Albuterol, Prozac, Simvastatin, Montelukast , Tizanidine, Xanax, Gabapentin. Allergy: Apixaban, clopidogrel, enoxaparin, Morphine PSH: Appendectomy (2008), Coronary stents x4 ([id number]) Hosp: multiple admissions recently for SOB, splenic hematoma and bacteremia. Last admission March 2017 for abdominal pain- he was discharged on abx FH: Did not provide Social: Denies tobacco use- wears a nicotine patch. Social alcohol use; Admits to Cocaine use Present on Admission - Present on Admission Any Indicators Present on Admission: No History of DVT/PE: No History of Uncontrolled Diabetes: No Review of Systems - Constitutional Constitutional: absent: Chills, Fever - EENT Eyes: absent: Change in Vision Ears: absent: Decreased Hearing - Cardiovascular Cardiovascular: Chest Pain, Dyspnea on Exertion - Respiratory Respiratory: Cough - Gastrointestinal Gastrointestinal: Abdominal Pain ("left side of belly"), Bloating. absent: Nausea, Vomiting - Genitourinary Genitourinary: Difficulty Urinating - Musculoskeletal Musculoskeletal: absent: Numbness, Tingling - Neurological Neurological: absent: Tingling, Weakness - Psychiatric Psychiatric: Anxiety - Endocrine Endocrine: absent: Polydipsia, Polyphagia, Polyuria Past Patient History - Infectious Disease Hx of Infectious Diseases: None - Tetanus Immunizations Tetanus Immunization: Up to Date - Past Medical History & Family History Past Medical History?: Yes - Past Social History Smoking Status: Former Smoker - CARDIAC Hx Atrial Fibrillation: Yes Hx Cardia Arrhythmia: Yes Hx Congestive Heart Failure: Yes Hx Hypercholesterolemia: Yes Hx Hypertension: Yes Hx Peripheral Edema: Yes - PULMONARY Hx Asthma: Yes Hx Chronic Obstructive Pulmonary Disease (COPD): Yes Hx Emphysema: Yes Hx Sleep Apnea: Yes - NEUROLOGICAL Hx Neurological Disorder: No - HEENT Hx HEENT Problems: No - RENAL Hx Chronic Kidney Disease: No - ENDOCRINE/METABOLIC Hx Endocrine Disorders: No - HEMATOLOGICAL/ONCOLOGICAL Hx Blood Disorders: Yes - INTEGUMENTARY Hx Dermatological Problems: No - MUSCULOSKELETAL/RHEUMATOLOGICAL Hx Musculoskeletal Disorders: Yes Hx Falls: Yes - GASTROINTESTINAL Hx Gastrointestinal Disorders: Yes - GENITOURINARY/GYNECOLOGICAL Hx Genitourinary Disorders: No - PSYCHIATRIC Hx Anxiety: Yes Hx Bipolar Disorder: Yes Hx Depression: Yes Hx Substance Use: Yes - SURGICAL HISTORY Hx Appendectomy: Yes (2008) Hx Coronary Stent: Yes (2008 - 2012 4 stents) - ANESTHESIA Hx Anesthesia: Yes Hx Anesthesia Reactions: No Hx Malignant Hyperthermia: No Meds Allergies/Adverse Reactions: Allergies Allergy/AdvReac Type Severity Reaction Status Date / Time apixaban [From Eliquis] Allergy RASH Verified 04/23/17 15:02 clopidogrel bisulfate Allergy RASH Verified 04/23/17 15:02 [From Plavix] enoxaparin sodium Allergy RASH Verified 04/23/17 15:02 [From Lovenox] morphine Allergy RASH Verified 04/23/17 15:02 Physical Exam - Constitutional Appears: No Acute Distress, Chronically Ill - Head Exam Head Exam: ATRAUMATIC, NORMOCEPHALIC - Eye Exam Eye Exam: EOMI Pupil Exam: PERRL - ENT Exam ENT Exam: Mucous Membranes Moist - Respiratory Exam Respiratory Exam: Clear to Auscultation Bilateral, NORMAL BREATHING PATTERN - Cardiovascular Exam Cardiovascular Exam: REGULAR RHYTHM, +S1, +S2 - GI/Abdominal Exam GI & Abdominal Exam: Soft, Tenderness (Left side pain to deep palpation). absent: Guarding Additional comments: excess body habitus, ascites - Extremities Exam Extremities exam: Positive for: pedal edema (2+ pitting edema) - Back Exam Back exam: absent: CVA tenderness (L), CVA tenderness (R) - Neurological Exam Neurological exam: Alert, Oriented x3 Results - Vital Signs Recent Vital Signs: Last Vital Signs Temp 97.3 F L 04/23/17 15:01 Pulse 86 04/23/17 18:45 Resp 16 04/23/17 18:45 BP 124/89 04/23/17 18:45 Pulse Ox 96 04/23/17 18:45 - Labs Result Diagrams: 04/23/17 16:22 04/23/17 16:22 Labs: Laboratory Results - last 24 hr 04/23/17 04/23/17 04/23/17 16:17 16:22 16:22 WBC 9.4 RBC 4.35 L Hgb 11.5 L Hct 36.3 MCV 83.5 MCH 26.5 L MCHC 31.7 L RDW 19.2 H Plt Count 284 MPV 7.6 Neut % (Auto) 72.9 Lymph % (Auto) 14.7 L [place] % (Auto) 8.5 Eos % (Auto) 2.6 Baso % (Auto) 1.3 Neut # 6.8 Lymph # 1.4 [place] # 0.8 Eos # 0.2 Baso # 0.1 pO2 43 VBG pH 7.41 VBG pCO2 50 VBG HCO3 29.0 VBG Total CO2 33.2 H VBG O2 Sat (Calc) 79.0 H VBG Base Excess 5.8 H VBG Potassium 4.5 Sodium 137.0 134 Chloride 106.0 98 Glucose 118 H Lactate 1.3 Potassium 4.5 Carbon Dioxide 27 Anion Gap 14 BUN 18 Creatinine 0.9 Est GFR ( Amer) > 60 Est GFR (Non-Af Amer) > 60 Random Glucose 119 H Calcium 8.1 L Total Bilirubin 1.0 AST 62 H D ALT 108 H D Alkaline Phosphatase 71 Troponin I 0.0480 NT-Pro-B Natriuret Pep 5480 H Total Protein 8.0 Albumin 3.5 Globulin 4.5 H Albumin/Globulin Ratio 0.8 L Lipase 107 Venous Blood Potassium 4.5 Urine Color Urine Clarity Urine pH Ur Specific [place] Urine Protein Urine Glucose (UA) Urine Ketones Urine Blood Urine Nitrate Urine Bilirubin Urine Urobilinogen Ur Leukocyte Esterase Urine WBC (Auto) Urine RBC (Auto) Digoxin Urine Opiates Screen Urine Methadone Screen Ur Barbiturates Screen Ur Phencyclidine Scrn Ur Amphetamines Screen U Benzodiazepines Scrn U Oth Cocaine Metabols U Cannabinoids Screen 04/23/17 04/23/17 04/23/17 16:22 17:23 17:23 WBC RBC Hgb Hct MCV MCH MCHC RDW Plt Count MPV Neut % (Auto) Lymph % (Auto) [place] % (Auto) Eos % (Auto) Baso % (Auto) Neut # Lymph # [place] # Eos # Baso # pO2 VBG pH VBG pCO2 VBG HCO3 VBG Total CO2 VBG O2 Sat (Calc) VBG Base Excess VBG Potassium Sodium Chloride Glucose Lactate Potassium Carbon Dioxide Anion Gap BUN Creatinine Est GFR ( Amer) Est GFR (Non-Af Amer) Random Glucose Calcium Total Bilirubin AST ALT Alkaline Phosphatase Troponin I NT-Pro-B Natriuret Pep Total Protein Albumin Globulin Albumin/Globulin Ratio Lipase Venous Blood Potassium Urine Color Yellow Urine Clarity Clear Urine pH 5.0 Ur Specific [place] 1.025 Urine Protein 1+ H Urine Glucose (UA) Normal Urine Ketones Trace Urine Blood Negative Urine Nitrate Negative Urine Bilirubin Negative Urine Urobilinogen 2.0 Ur Leukocyte Esterase Neg Urine WBC (Auto) 1 Urine RBC (Auto) < 1 Digoxin < 0.4 L Urine Opiates Screen Negative Urine Methadone Screen Negative Ur Barbiturates Screen Negative Ur Phencyclidine Scrn Negative Ur Amphetamines Screen Negative U Benzodiazepines Scrn Positive U Oth Cocaine Metabols Positive U Cannabinoids Screen Negative Assessment & Plan - Assessment and Plan (Free Text) Plan: Chest pain - R/O ACS Admit to tele JOSE negative x 1, f/u 2 addition Q8H EKG: Afib, no acute St/T wave changes ECHO (02/2017): LV systolic function severely reduced. LV mildly dilated. Severe global hypokinesis of LV. Negative for endocarditis. Given ASA 325mg in field - hold 81mg PO daily for hematuria BB held due to cocaine use Restart home Enalapril 10mg PO Daily Oxygen 2 liters PRN f/u A1c, Lipid panel CHF Bilateral LE edema BNP 5480 CXR (04/22/17): Marked cardiomegaly. Mild central pulmonary venous congestion. Bilateral lower lobe atelectasis and/or alveolar infiltrates ECHO (02/2017): LV systolic function severely reduced. LV mildly dilated. Severe global hypokinesis of LV. Negative for endocarditis. Digoxin 0.125 mg PO daily Lasix 40 mg IVP BID HCTZ 50mg PO daily Aldactone 25mg PO daily - alarcon catheter inserted, but pt refused I's & O's daily weight AFIB with RVR Now rate controlled Cardizem 30mg po q6H Digoxin 0.125 mg PO daily Pt takes coumadin - states dose is 10mg daily, admits taking inconsistently - states took dose today already -f/u Coags before restarting Abdominal pain Hx of splenic hemorrhage CT (04/23/17): Interval decrease in size of fluid air collection lateral to spleen since previous exam. Small left pleural effusion and trace right pleural effusion. Moderate cardiomegaly. Small ascites in abdomen/pelvis. Urinary retention Alarcon catheter placed in ED - pt refused, and it was removed Good urine output after IV lasix Monitor I/Os Hematuria UA (04/23/17): blood 3+, trace LE, bacteria rare, RBC 315 H/H 11.5/36.3 f/u AM CBC Transaminitis AST/ALT: 62/108 Monitor Cocaine Use Disorder UDS positive: cocaine - pt denies, states last use was February COPD O2 2LNC Duonebs 3ml INH q6h PRN Singulair 10 mg PO HS HTN Lasix 40 mg IVP BID Cardizem 30mg po q6h restart home meds: HCTZ 50mg PO daily Aldactone 25mg PO daily CAD Crestor 10mg PO HS ARLENE Pt refusing CPAP at night 2L O2 Anxiety and depression Prozac 40mg po daily Xanax 1mg po qid Prophylactic Measures Pepcid 20 mg PO daily VTE ppx c/i SCDs Heart Healthy Diet Plan discussed with Dr. Terrence Rodriguez PGY-1
[2017-04-23 21:14] LABS: RBC URINE 315 /hpf (0-3); URINE BACTERIA RARE (<OCC); URINE BILIRUBIN NEGATIVE (NEGATIVE); URINE BLOOD 3+ (NEGATIVE); URINE COLOR Straw (YELLOW); URINE GLUCOSE (UA) NORMAL (Normal); URINE KETONE NEGATIVE (NEGATIVE); URINE PROTEIN NEGATIVE (NEGATIVE); URINE UROBILINOGEN NORMAL mg/dL (0.2-1.0); WBC URINE 7 /hpf (0-5)
[2017-04-23 21:20] LABS: URINE LEUKOCYTE ESTERASE TRACE Leu/uL (Negative)
[2017-04-23] MEDS: Oxycodone/Acetaminophen 5/325 mg Tab PO PRN (23:55)
[2017-04-24] MEDS ORDERED: Albuterol-Ipratrop 3 mg / 0.5 (3 ml) UD INH PRN (06:00)
--- NOTE | 2017-04-24 07:55 | CP.PCM.PN ---
<BalbirRose - Last Filed: 04/24/17 15:49> Subjective - Date & Time of Evaluation Date of Evaluation: 04/24/17 Time of Evaluation: 10:00 - Subjective Subjective: PGY1 Medicine note for Dr. Ocampo Patient seen and examined at bedside. Patient denied chest pain but reports SOB which is chronic, swelling in his abdomen and legs b/l and abdominal pain. Patient states he is anxious and wants Xanax at his home dose of QID but patient is only allowed BID when admitted here. He also exhibits marked impairment in clarity of speech and slurring and is unable to remain alert during the length of the exam and continuously goes in and out of sleep. Patient had alarcon placed overnight with UO 1300cc urine. Nursing reports patient had pain in urethral site from cathether which was removed. He denied nausea, vomiting, and diarrhea but refused to answer further questions. Objective - Vital Signs/Intake and Output Vital Signs (last 24 hours): Temp Pulse Resp BP Pulse Ox 97.4 F L 66 20 107/70 95 04/24/17 04:25 04/24/17 06:26 04/24/17 04:25 04/24/17 04:25 04/24/17 04:25 Intake and Output: 04/24/17 04/24/17 06:59 18:59 Intake Total 1400 Output Total 3400 Balance -1999 - Medications Medications: Current Medications Albuterol/Ipratropium (Duoneb 3 Mg/0.5 Mg (3 Ml) Ud) 3 ml INH RQ6 PRN PRN Reason: Shortness of Breath Alprazolam (Xanax) 1 mg PO BID PRN PRN Reason: Anxiety Last Admin: 04/24/17 06:00 Dose: 1 mg Digoxin (Lanoxin) 0.125 mg PO DAILY [facility] Diltiazem HCl (Cardizem) 30 mg PO QID [facility] Last Admin: 04/23/17 22:38 Dose: 30 mg Famotidine (Pepcid) 20 mg PO DAILY [facility] Fluoxetine HCl (Prozac) 40 mg PO DAILY [facility] Furosemide (Lasix) 40 mg IVP BID [facility] Gabapentin (Neurontin) 300 mg PO TID [facility] Hydrochlorothiazide (Hydrodiuril) 50 mg PO DAILY [facility] Montelukast Sodium (Singulair) 10 mg PO HS [facility] Last Admin: 04/23/17 22:38 Dose: 10 mg Oxycodone/Acetaminophen (Percocet 5/325 Mg Tab) 2 tab PO Q6H PRN PRN Reason: Pain, moderate (4-7) Stop: 04/26/17 23:35 Last Admin: 04/23/17 23:55 Dose: 2 tab Rosuvastatin Calcium (Crestor) 10 mg PO HS JEIMY Spironolactone (Aldactone) 25 mg PO DAILY JEIMY - Constitutional Appears: No Acute Distress, Unkempt, Chronically Ill - Head Exam Head Exam: ATRAUMATIC, NORMOCEPHALIC - Eye Exam Eye Exam: Normal appearance. absent: Conjunctival injection, Scleral icterus Pupil Exam: NORMAL ACCOMODATION - ENT Exam ENT Exam: Mucous Membranes Moist - Neck Exam Neck Exam: Full ROM, Normal Inspection - Respiratory Exam Respiratory Exam: Clear to Ausculation Bilateral, NORMAL BREATHING PATTERN. absent: Accessory Muscle Use, Rales, Rhonchi, Wheezes, Respiratory Distress - Cardiovascular Exam Cardiovascular Exam: REGULAR RHYTHM, +S1, +S2 - GI/Abdominal Exam GI & Abdominal Exam: Soft, Normal Bowel Sounds. absent: Firm, Guarding, Rigid Additional comments: excess body habitus, ascites - Extremities Exam Extremities Exam: Pedal Edema (2+ edema), Tenderness. absent: Normal Inspection Additional comments: cool b/l LE - Back Exam Back Exam: NORMAL INSPECTION. absent: rash noted - Neurological Exam Neurological Exam: Alert, Awake, Oriented x3 - Psychiatric Exam Psychiatric exam: Anxious - Skin Skin Exam: Dry, Intact Assessment and Plan - Assessment and Plan (Free Text) Assessment: 46M with PMH of HTN, CAD, CHF, Afib on coumadin, COPD, ARLENE, bipolar disorder, chronic back pain, herniated discs, presenting to [facility] for chest/ abdominal pain since this morning. Plan: Chest pain - R/O ACS Admit to tele JOSE negative x 1, f/u 2 addition Q8H EKG: Afib, no acute St/T wave changes ECHO (02/2017): LV systolic function severely reduced. LV mildly dilated. Severe global hypokinesis of LV. Negative for endocarditis. Given ASA 325mg in field - hold 81mg PO daily for hematuria BB held due to cocaine use Restart home Enalapril 10mg PO Daily Oxygen 2 liters PRN CHF Bilateral LE edema BNP 5480 CXR (04/22/17): Marked cardiomegaly. Mild central pulmonary venous congestion. Bilateral lower lobe atelectasis and/or alveolar infiltrates ECHO (02/2017): LV systolic function severely reduced. LV mildly dilated. Severe global hypokinesis of LV. Negative for endocarditis. Digoxin 0.125 mg PO daily Lasix 40 mg IVP BID HCTZ 50mg PO daily Aldactone 25mg PO daily - alarcon catheter inserted, but pt refused I's & O's daily weight f/u arterial studies LE b/l AFIB with RVR Now rate controlled Cardizem 30mg po q6H Digoxin 0.125 mg PO daily Pt takes coumadin - states dose is 10mg daily, admits taking inconsistently - states took dose today already - HOLD secondary to hematuria Abdominal pain Hx of splenic hemorrhage CT (04/23/17): Interval decrease in size of fluid air collection lateral to spleen since previous exam. Small left pleural effusion and trace right pleural effusion. Moderate cardiomegaly. Small ascites in abdomen/pelvis. Urinary retention Alarcon catheter placed in ED - pt refused, and it was removed Good urine output after IV lasix Monitor I/Os Hematuria UA (04/23/17): blood 3+, trace LE, bacteria rare, RBC 315 Transaminitis AST/ALT: 62/108 Monitor Cocaine Use Disorder UDS positive: cocaine - pt denies, states last use was February COPD O2 2LNC Duoneb 3ml INH q6h PRN Singulair 10 mg PO HS HTN Lasix 40 mg IVP BID Cardizem 30mg po q6h restart home meds: HCTZ 50mg PO daily Aldactone 25mg PO daily CAD Crestor 10mg PO HS ARLENE Pt refusing CPAP at night 2L O2 Anxiety and depression Prozac 40mg po daily Xanax 1mg po qid Prophylactic Measures Pepcid 20 mg PO daily VTE ppx c/i SCDs Heart Healthy Diet Nicoderm patch Plan discussed with Dr. Terrence Mcgregor PGY1 <Roque Ocampo Jr. - Last Filed: 04/29/17 14:48> Objective - Vital Signs/Intake and Output Vital Signs (last 24 hours): Temp Pulse Resp BP Pulse Ox 98.3 F 109 H 18 131/83 95 04/28/17 07:20 04/28/17 07:20 04/28/17 07:20 04/28/17 07:20 04/28/17 07:20 - Labs Labs: 04/28/17 07:08 04/28/17 07:08 PT 20.2 SECONDS (9.7-12.2) H 04/24/17 11:10 INR 1.7 04/24/17 11:10 APTT 38 SECONDS (21-34) H 04/24/17 11:10 Attending/Attestation - Attestation I have personally seen and examined this patient.: Yes I have fully participated in the care of the patient.: Yes I have reviewed all pertinent clinical information, including history, physical exam and plan: Yes Notes (Text): 04/29/17 14:48 Agree with resident note findings and plan of care
[2017-04-24] MEDS ORDERED: Digoxin 125 mcg (0.125 mg) Tab PO SCH (10:00)
[2017-04-24 11:17] LABS: BASO # 0.1 K/uL (0.0-0.2); BASO % 0.7 % (0.0-2.0); EOS # 0.3 K/uL (0.0-0.7); EOS % 3.2 % (0.0-4.0); HEMATOCRIT 35.5 % (35.0-51.0); LYMPH # 1.9 K/uL (1.0-4.3); LYMPH % 18.6 % (20.0-40.0); MEAN CELL VOLUME 84.1 fL (80.0-94.0); MEAN CORPUSCULAR HEMOGLOBIN 26.2 pg (27.0-31.0); MEAN CORPUSCULAR HGB CONC 31.2 g/dL (33.0-37.0); MEAN PLATELET VOLUME 7.8 fL (7.2-11.7); MONO # 0.9 K/uL (0.0-0.8); MONO % 9.5 % (0.0-10.0); NRBC % 0.1 % (0.0-2.0); RED CELL DISTRIBUTION WIDTH 19.5 % (11.5-14.5); WHITE BLOOD COUNT 9.9 K/uL (4.8-10.8)
[2017-04-24 11:27] LABS: INR 1.7
[2017-04-24 11:28] LABS: CHLORIDE 93 mmol/L (98-107); POTASSIUM 4.6 mmol/L (3.6-5.2); SODIUM 131 mmol/L (132-148)
[2017-04-24 11:30] LABS: ALB/GLOB RATIO 0.8 (1.0-2.1); ALKALINE PHOSPHATASE 68 U/L (38-126); AST/SGOT 52 U/L (17-59); CARBON DIOXIDE 28 mmol/L (22-30); GFR AFRICAN-AMERICAN > 60; TOTAL PROTEIN 7.5 g/dL (6.3-8.3)
[2017-04-24 11:31] LABS: ALT/SGPT 94 U/L (21-72); BLOOD UREA NITROGEN 23 mg/dL (9-20); CALCIUM 7.7 mg/dl (8.6-10.4); GLUCOSE,RANDOM 120 mg/dL (75-110)
[2017-04-24 12:02] LABS: THYROID STIMULATING HORMONE 6.26 mIU/L (0.46-4.68)
[2017-04-24] MEDS: Oxycodone/Acetaminophen 5/325 mg Tab PO PRN ×2 (12:25→18:51)
[2017-04-24] MEDS: metOLazone 5 MG TAB PO SCH (21:48)
[2017-04-25] MEDS: Oxycodone/Acetaminophen 5/325 mg Tab PO PRN ×3 (02:59→19:41)
--- NOTE | 2017-04-25 07:48 | CP.PCM.PN ---
<BalbirRose sherman - Last Filed: 04/25/17 18:39> Subjective - Date & Time of Evaluation Date of Evaluation: 04/25/17 Time of Evaluation: 09:15 - Subjective Subjective: PGY1 Medicine note for Dr. Ocampo Patient seen and examined at bedside. He was sitting up eating breakfast. Patient seemed more alert this AM at first but during the encounter he started to fall asleep. He complained of SOB and leg swelling and a burning in his legs. He denied acute fever, chills, chest pain, palpitations, cough, abd pain, nausea, vomiting, bowel/bladder complaints. He has a 1:1 at bedside. Objective - Vital Signs/Intake and Output Vital Signs (last 24 hours): Temp Pulse Resp BP Pulse Ox 98 F 72 20 132/85 97 04/24/17 23:30 04/25/17 03:21 04/25/17 03:21 04/25/17 03:21 04/25/17 03:21 Intake and Output: 04/25/17 04/25/17 06:59 18:59 Intake Total 500 Output Total 600 Balance -100 - Medications Medications: Current Medications Albuterol/Ipratropium (Duoneb 3 Mg/0.5 Mg (3 Ml) Ud) 3 ml INH RQ6 PRN PRN Reason: Shortness of Breath Alprazolam (Xanax) 1 mg PO BID PRN PRN Reason: Anxiety Last Admin: 04/25/17 02:59 Dose: 1 mg Digoxin (Lanoxin) 0.125 mg PO DAILY@1800 [facility] Diltiazem HCl (Cardizem) 30 mg PO QID [facility] Last Admin: 04/24/17 21:48 Dose: 30 mg Famotidine (Pepcid) 20 mg PO DAILY [facility] Last Admin: 04/24/17 10:00 Dose: Not Given Fluoxetine HCl (Prozac) 40 mg PO DAILY [facility] Last Admin: 04/24/17 10:29 Dose: 40 mg Furosemide (Lasix) 40 mg IVP BID [facility] Last Admin: 04/24/17 18:53 Dose: 40 mg Gabapentin (Neurontin) 300 mg PO TID [facility] Last Admin: 04/24/17 18:51 Dose: 300 mg Hydrochlorothiazide (Hydrodiuril) 50 mg PO DAILY [facility] Last Admin: 04/24/17 10:49 Dose: Not Given Metolazone (Zaroxolyn) 5 mg PO Q12 [facility] Last Admin: 04/24/17 21:48 Dose: 5 mg Montelukast Sodium (Singulair) 10 mg PO HS [facility] Last Admin: 04/24/17 21:48 Dose: 10 mg Nicotine (Nicoderm Cq) 1 patch TD DAILY [facility] Last Admin: 04/24/17 10:00 Dose: Not Given Oxycodone/Acetaminophen (Percocet 5/325 Mg Tab) 2 tab PO Q6H PRN PRN Reason: Pain, moderate (4-7) Stop: 04/26/17 23:35 Last Admin: 04/25/17 02:59 Dose: 2 tab Rosuvastatin Calcium (Crestor) 10 mg PO [facility] Last Admin: 04/24/17 21:48 Dose: 10 mg Spironolactone (Aldactone) 25 mg PO DAILY [facility] Last Admin: 04/24/17 14:00 Dose: Not Given - Labs Labs: 04/24/17 11:10 04/24/17 11:10 PT 20.2 SECONDS (9.7-12.2) H 04/24/17 11:10 INR 1.7 04/24/17 11:10 APTT 38 SECONDS (21-34) H 04/24/17 11:10 - Constitutional Appears: Chronically Ill - Head Exam Head Exam: NORMAL INSPECTION - Eye Exam Eye Exam: Normal appearance. absent: Conjunctival injection, Scleral icterus - ENT Exam ENT Exam: Mucous Membranes Dry - Neck Exam Neck Exam: Normal Inspection - Respiratory Exam Respiratory Exam: Clear to Ausculation Bilateral, NORMAL BREATHING PATTERN. absent: Accessory Muscle Use, Rales, Rhonchi, Wheezes - Cardiovascular Exam Cardiovascular Exam: REGULAR RHYTHM, +S1, +S2. absent: Murmur - GI/Abdominal Exam GI & Abdominal Exam: Soft, Normal Bowel Sounds. absent: Firm, Guarding, Rigid, Tenderness - Extremities Exam Extremities Exam: Pedal Edema (+3 b/l). absent: Normal Inspection, Tenderness Additional comments: venous stasis dermatitis cool to touch - Back Exam Back Exam: NORMAL INSPECTION. absent: rash noted - Neurological Exam Neurological Exam: Alert, Awake, Oriented x3 - Psychiatric Exam Psychiatric exam: Anxious - Skin Skin Exam: Dry, Intact, Normal Color Assessment and Plan - Assessment and Plan (Free Text) Assessment: 46M with PMH of HTN, CAD, CHF, Afib on coumadin, COPD, ARLENE, bipolar disorder, chronic back pain, herniated discs, presenting to [facility] for chest/ abdominal pain since this morning. Plan: Chest pain - R/O ACS Admit to tele JOSE negative x 1, f/u 2 addition Q8H EKG: Afib, no acute St/T wave changes ECHO (02/2017): LV systolic function severely reduced. LV mildly dilated. Severe global hypokinesis of LV. Negative for endocarditis. Given ASA 325mg in field - hold 81mg PO daily for hematuria BB held due to cocaine use Restart home Enalapril 10mg PO Daily Oxygen 2 liters PRN CHF Bilateral LE edema BNP 5480 CXR (04/22/17): Marked cardiomegaly. Mild central pulmonary venous congestion. Bilateral lower lobe atelectasis and/or alveolar infiltrates ECHO (02/2017): LV systolic function severely reduced. LV mildly dilated. Severe global hypokinesis of LV. Negative for endocarditis. Digoxin 0.125 mg PO daily Lasix 40 mg IVP Q6 HCTZ 50mg PO daily Aldactone 25mg PO daily - alarcon catheter inserted, but pt refused I's & O's daily weight f/u arterial studies LE b/l AFIB with RVR Now rate controlled Cardizem 30mg po q6H Digoxin 0.125 mg PO daily Pt takes coumadin - states dose is 10mg daily, admits taking inconsistently - states took dose today already - HOLD secondary to hematuria Abdominal pain Hx of splenic hemorrhage CT (04/23/17): Interval decrease in size of fluid air collection lateral to spleen since previous exam. Small left pleural effusion and trace right pleural effusion. Moderate cardiomegaly. Small ascites in abdomen/pelvis. Urinary retention Alarcon catheter placed in ED - pt refused, and it was removed Good urine output after IV lasix Monitor I/Os Hematuria UA (04/23/17): blood 3+, trace LE, bacteria rare, RBC 315 Transaminitis AST/ALT: 62/108 Monitor Cocaine Use Disorder UDS positive: cocaine - pt denies, states last use was February COPD O2 2LNC Duoneb 3ml INH q6h PRN Singulair 10 mg PO HS HTN Lasix 40 mg IVPQ6 Cardizem 30mg po q6h restart home meds: HCTZ 50mg PO daily Aldactone 25mg PO daily CAD Crestor 10mg PO HS ARLENE Pt refusing CPAP at night 2L O2 Anxiety and depression Prozac 40mg po daily Xanax 1mg po Q6 Prophylactic Measures Pepcid 20 mg PO daily VTE ppx c/i SCDs Heart Healthy Diet Nicoderm patch Plan discussed with Dr. Terrence Mcgregor PGY1 <Roque Ocampo Jr. - Last Filed: 04/29/17 14:50> Objective - Vital Signs/Intake and Output Vital Signs (last 24 hours): Temp Pulse Resp BP Pulse Ox 98.3 F 109 H 18 131/83 95 04/28/17 07:20 04/28/17 07:20 04/28/17 07:20 04/28/17 07:20 04/28/17 07:20 - Labs Labs: 04/28/17 07:08 04/28/17 07:08 PT 20.2 SECONDS (9.7-12.2) H 04/24/17 11:10 INR 1.7 04/24/17 11:10 APTT 38 SECONDS (21-34) H 04/24/17 11:10 Attending/Attestation - Attestation I have personally seen and examined this patient.: Yes I have fully participated in the care of the patient.: Yes I have reviewed all pertinent clinical information, including history, physical exam and plan: Yes Notes (Text): 04/29/17 14:50 Agree with resident's findings and plan of care
[2017-04-25 08:13] LABS: BASO # 0.1 K/uL (0.0-0.2); BASO % 1.3 % (0.0-2.0); EOS # 0.2 K/uL (0.0-0.7); EOS % 2.2 % (0.0-4.0); HEMATOCRIT 34.4 % (35.0-51.0); LYMPH # 1.9 K/uL (1.0-4.3); LYMPH % 19.1 % (20.0-40.0); MEAN CELL VOLUME 83.2 fL (80.0-94.0); MEAN CORPUSCULAR HEMOGLOBIN 26.1 pg (27.0-31.0); MEAN CORPUSCULAR HGB CONC 31.4 g/dL (33.0-37.0); MONO # 1.2 K/uL (0.0-0.8); MONO % 11.4 % (0.0-10.0); NRBC % 0.1 % (0.0-2.0); RED CELL DISTRIBUTION WIDTH 18.8 % (11.5-14.5); WHITE BLOOD COUNT 10.1 K/uL (4.8-10.8)
[2017-04-25 08:21] LABS: CHLORIDE 94 mmol/L (98-107)
[2017-04-25 08:22] LABS: POTASSIUM 4.7 mmol/L (3.6-5.2); SODIUM 132 mmol/L (132-148)
[2017-04-25 08:24] LABS: ALB/GLOB RATIO 0.8 (1.0-2.1); BILIRUBIN,TOTAL 0.9 mg/dL (0.2-1.3); CARBON DIOXIDE 27 mmol/L (22-30); GFR AFRICAN-AMERICAN > 60; TOTAL PROTEIN 7.7 g/dL (6.3-8.3)
[2017-04-25 08:25] LABS: ALKALINE PHOSPHATASE 58 U/L (38-126); ALT/SGPT 80 U/L (21-72); AST/SGOT 51 U/L (17-59); BLOOD UREA NITROGEN 29 mg/dL (9-20); CALCIUM 8.2 mg/dl (8.6-10.4); GLUCOSE,RANDOM 122 mg/dL (75-110); MAGNESIUM 2.3 mg/dL (1.6-2.3); PHOSPHOROUS 4.9 mg/dL (2.5-4.5)
[2017-04-25] MEDS: metOLazone 5 MG TAB PO SCH ×2 (10:59→21:46)
[2017-04-25] MEDS: Digoxin 125 mcg (0.125 mg) Tab PO SCH (17:27)
[2017-04-26] MEDS: Oxycodone/Acetaminophen 5/325 mg Tab PO PRN ×4 (02:34→21:58)
--- NOTE | 2017-04-26 07:57 | CP.PCM.PN ---
<Jim Mcgregorima - Last Filed: 04/26/17 18:48> Subjective - Date & Time of Evaluation Date of Evaluation: 04/26/17 Time of Evaluation: 08:30 - Subjective Subjective: PGY1 Medicine note for Dr. Ocampo Patient seen and examined at bedside. Patient was sitting up in bed. He was complaining of pain in his spleen, pain in his legs, water in his legs, and SOB. Patient had mumbled speech and was difficult to understand clearly. He was unhappy he was not allowed to shower. Patient is eating well and ambulating around the room. He was complaining he was urinating a lot and was unhappy he was getting so many medications. patient was still requesting more ativan and anxiety medications. Objective - Vital Signs/Intake and Output Vital Signs (last 24 hours): Temp Pulse Resp BP Pulse Ox 97.5 F L 69 20 117/69 98 04/25/17 23:15 04/26/17 01:04 04/25/17 23:15 04/26/17 05:47 04/25/17 23:15 Intake and Output: 04/26/17 04/26/17 06:59 18:59 Intake Total 600 Output Total 1350 Balance -750 - Medications Medications: Current Medications Albuterol/Ipratropium (Duoneb 3 Mg/0.5 Mg (3 Ml) Ud) 3 ml INH RQ6 PRN PRN Reason: Shortness of Breath Alprazolam (Xanax) 1 mg PO Q6H PRN PRN Reason: Anxiety Last Admin: 04/26/17 05:46 Dose: 1 mg Digoxin (Lanoxin) 0.125 mg PO DAILY@1800 [facility] Last Admin: 04/25/17 17:27 Dose: 0.125 mg Diltiazem HCl (Cardizem) 30 mg PO QID [facility] Last Admin: 04/25/17 21:46 Dose: 30 mg Famotidine (Pepcid) 20 mg PO DAILY [facility] Last Admin: 04/25/17 10:58 Dose: 20 mg Fluoxetine HCl (Prozac) 40 mg PO DAILY [facility] Last Admin: 04/25/17 10:59 Dose: 40 mg Furosemide (Lasix) 40 mg IVP Q6H [facility] Last Admin: 04/26/17 05:47 Dose: 40 mg Gabapentin (Neurontin) 300 mg PO TID [facility] Last Admin: 04/25/17 17:27 Dose: 300 mg Hydrochlorothiazide (Hydrodiuril) 50 mg PO DAILY [facility] Last Admin: 04/25/17 10:58 Dose: 50 mg Metolazone (Zaroxolyn) 5 mg PO Q12 [facility] Last Admin: 04/25/17 21:46 Dose: 5 mg Montelukast Sodium (Singulair) 10 mg PO HS [facility] Last Admin: 04/25/17 21:46 Dose: 10 mg Nicotine (Nicoderm Cq) 1 patch TD DAILY [facility] Last Admin: 04/25/17 10:59 Dose: 1 patch Oxycodone/Acetaminophen (Percocet 5/325 Mg Tab) 2 tab PO Q6H PRN PRN Reason: Pain, moderate (4-7) Stop: 04/26/17 23:35 Last Admin: 04/26/17 02:34 Dose: 2 tab Rosuvastatin Calcium (Crestor) 10 mg PO HS [facility] Last Admin: 04/25/17 21:46 Dose: 10 mg Spironolactone (Aldactone) 25 mg PO DAILY [facility] Last Admin: 04/25/17 10:58 Dose: 25 mg - Labs Labs: 04/25/17 07:49 04/25/17 07:49 PT 20.2 SECONDS (9.7-12.2) H 04/24/17 11:10 INR 1.7 04/24/17 11:10 APTT 38 SECONDS (21-34) H 04/24/17 11:10 - Constitutional Appears: No Acute Distress, Chronically Ill - Head Exam Head Exam: ATRAUMATIC, NORMAL INSPECTION, NORMOCEPHALIC - Eye Exam Eye Exam: EOMI, Normal appearance. absent: Conjunctival injection, Scleral icterus - ENT Exam ENT Exam: Mucous Membranes Moist - Neck Exam Neck Exam: Full ROM, Normal Inspection. absent: Tenderness - Respiratory Exam Respiratory Exam: Clear to Ausculation Bilateral, NORMAL BREATHING PATTERN. absent: Accessory Muscle Use, Rales, Rhonchi, Wheezes, Respiratory Distress - Cardiovascular Exam Cardiovascular Exam: REGULAR RHYTHM, +S1, +S2. absent: Murmur - GI/Abdominal Exam GI & Abdominal Exam: Soft, Normal Bowel Sounds. absent: Firm, Guarding, Rigid - Extremities Exam Extremities Exam: Pedal Edema (3+ b/l). absent: Normal Inspection, Tenderness Additional comments: venous stasis dermatitis cool to touch - Back Exam Back Exam: NORMAL INSPECTION. absent: rash noted - Neurological Exam Neurological Exam: Alert, Awake, Normal Gait, Oriented x3 - Psychiatric Exam Psychiatric exam: Anxious - Skin Skin Exam: Dry, Intact, Normal Color, Warm Assessment and Plan - Assessment and Plan (Free Text) Assessment: 46M with PMH of HTN, CAD, CHF, Afib on coumadin, COPD, ARLENE, bipolar disorder, chronic back pain, herniated discs, presenting to [facility] for chest/ abdominal pain since this morning. Plan: Chest pain - R/O ACS Admit to tele JOSE negative x 3 EKG: Afib, no acute St/T wave changes ECHO (02/2017): LV systolic function severely reduced. LV mildly dilated. Severe global hypokinesis of LV. Negative for endocarditis. Given ASA 325mg in field - hold 81mg PO daily for hematuria BB held due to cocaine use Restart home Enalapril 10mg PO Daily Oxygen 2 liters PRN CHF Bilateral LE edema BNP 5480 CXR (04/22/17): Marked cardiomegaly. Mild central pulmonary venous congestion. Bilateral lower lobe atelectasis and/or alveolar infiltrates ECHO (02/2017): LV systolic function severely reduced. LV mildly dilated. Severe global hypokinesis of LV. Negative for endocarditis. Digoxin 0.125 mg PO daily Lasix 40 mg IVP Q6 HCTZ 50mg PO daily Aldactone 25mg PO daily Metolazone 5mg po q12 I's & O's daily weight f/u arterial studies LE b/l Afib with RVR Now rate controlled Cardizem 30mg po q6H Digoxin 0.125 mg PO daily Pt takes coumadin - states dose is 10mg daily, admits taking inconsistently - states took dose today already - HOLD secondary to hematuria Abdominal pain Hx of splenic hemorrhage CT (04/23/17): Interval decrease in size of fluid air collection lateral to spleen since previous exam. Small left pleural effusion and trace right pleural effusion. Moderate cardiomegaly. Small ascites in abdomen/pelvis. Urinary retention Iniguez catheter placed in ED - pt refused, and it was removed Good urine output after IV lasix Monitor I/Os Hematuria UA (04/23/17): blood 3+, trace LE, bacteria rare, RBC 315 Transaminitis AST/ALT: 62/108 Monitor Cocaine Use Disorder UDS positive: cocaine - pt denies, states last use was February COPD O2 2LNC Duoneb 3ml INH q6h PRN Singulair 10 mg PO HS HTN Lasix 40 mg IVPQ6 Cardizem 30mg po q6h restart home meds: HCTZ 50mg PO daily Aldactone 25mg PO daily CAD Crestor 10mg PO HS ARLENE Pt refusing CPAP at night 2L O2 Anxiety and depression Prozac 40mg po daily Xanax 1mg po Q6 Prophylactic Measures Pepcid 20 mg PO daily VTE ppx c/i SCDs Heart Healthy Diet Nicoderm patch Plan discussed with Dr. Terrence Mcgregor PGY1 <Roque Ocampo Jr. - Last Filed: 04/29/17 14:52> Objective - Vital Signs/Intake and Output Vital Signs (last 24 hours): Temp Pulse Resp BP Pulse Ox 98.3 F 109 H 18 131/83 95 04/28/17 07:20 04/28/17 07:20 04/28/17 07:20 04/28/17 07:20 04/28/17 07:20 - Labs Labs: 04/28/17 07:08 04/28/17 07:08 PT 20.2 SECONDS (9.7-12.2) H 04/24/17 11:10 INR 1.7 04/24/17 11:10 APTT 38 SECONDS (21-34) H 04/24/17 11:10 Attending/Attestation - Attestation I have personally seen and examined this patient.: Yes I have fully participated in the care of the patient.: Yes I have reviewed all pertinent clinical information, including history, physical exam and plan: Yes Notes (Text): 04/29/17 14:52 Agree with resident note findings and plan of care
[2017-04-26 08:05] LABS: BASO # 0.1 K/uL (0.0-0.2); BASO % 0.7 % (0.0-2.0); EOS # 0.3 K/uL (0.0-0.7); EOS % 2.6 % (0.0-4.0); HEMATOCRIT 37.5 % (35.0-51.0); LYMPH # 1.8 K/uL (1.0-4.3); LYMPH % 16.6 % (20.0-40.0); MEAN CELL VOLUME 83.8 fL (80.0-94.0); MEAN CORPUSCULAR HEMOGLOBIN 26.3 pg (27.0-31.0); MEAN CORPUSCULAR HGB CONC 31.4 g/dL (33.0-37.0); MEAN PLATELET VOLUME 7.8 fL (7.2-11.7); MONO # 1.2 K/uL (0.0-0.8); MONO % 10.8 % (0.0-10.0); NRBC % 0.1 % (0.0-2.0); RED CELL DISTRIBUTION WIDTH 19.4 % (11.5-14.5); WHITE BLOOD COUNT 10.8 K/uL (4.8-10.8)
[2017-04-26 08:17] LABS: CHLORIDE 90 mmol/L (98-107); POTASSIUM 4.2 mmol/L (3.6-5.2); SODIUM 134 mmol/L (132-148)
[2017-04-26 08:19] LABS: ALB/GLOB RATIO 0.8 (1.0-2.1); AST/SGOT 63 U/L (17-59); BILIRUBIN,TOTAL 0.8 mg/dL (0.2-1.3); CARBON DIOXIDE 34 mmol/L (22-30); GFR AFRICAN-AMERICAN > 60; TOTAL PROTEIN 8.3 g/dL (6.3-8.3)
[2017-04-26 08:20] LABS: ALKALINE PHOSPHATASE 94 U/L (38-126); ALT/SGPT 80 U/L (21-72); BLOOD UREA NITROGEN 28 mg/dL (9-20); CALCIUM 8.6 mg/dl (8.6-10.4); GLUCOSE,RANDOM 111 mg/dL (75-110); PHOSPHOROUS 3.3 mg/dL (2.5-4.5)
[2017-04-26] MEDS: metOLazone 5 MG TAB PO SCH ×3 (09:51→21:58)
[2017-04-26] MEDS: Digoxin 125 mcg (0.125 mg) Tab PO SCH (17:50)
[2017-04-27] MEDS: Oxycodone/Acetaminophen 5/325 mg Tab PO PRN ×2 (04:56→12:15)
[2017-04-27 07:29] LABS: CHLORIDE 88 mmol/L (98-107); POTASSIUM 4.7 mmol/L (3.6-5.2); SODIUM 133 mmol/L (132-148)
[2017-04-27 07:31] LABS: GFR AFRICAN-AMERICAN > 60
[2017-04-27 07:32] LABS: ALB/GLOB RATIO 0.8 (1.0-2.1); ALKALINE PHOSPHATASE 107 U/L (38-126); ALT/SGPT 70 U/L (21-72); AST/SGOT 65 U/L (17-59); BLOOD UREA NITROGEN 28 mg/dL (9-20); CARBON DIOXIDE 36 mmol/L (22-30); GLUCOSE,RANDOM 84 mg/dL (75-110); PHOSPHOROUS 3.8 mg/dL (2.5-4.5); TOTAL PROTEIN 8.7 g/dL (6.3-8.3)
[2017-04-27 07:33] LABS: MAGNESIUM 1.8 mg/dL (1.6-2.3)
[2017-04-27 07:40] LABS: BASO # 0.1 K/uL (0.0-0.2); BASO % 1.1 % (0.0-2.0); EOS # 0.3 K/uL (0.0-0.7); EOS % 2.2 % (0.0-4.0); HEMATOCRIT 40.3 % (35.0-51.0); LYMPH # 1.9 K/uL (1.0-4.3); LYMPH % 16.5 % (20.0-40.0); MEAN CORPUSCULAR HEMOGLOBIN 26.2 pg (27.0-31.0); MEAN CORPUSCULAR HGB CONC 31.6 g/dL (33.0-37.0); MEAN PLATELET VOLUME 7.8 fL (7.2-11.7); MONO # 1.5 K/uL (0.0-0.8); MONO % 12.5 % (0.0-10.0); NRBC % 0.1 % (0.0-2.0); RED CELL DISTRIBUTION WIDTH 19.1 % (11.5-14.5); WHITE BLOOD COUNT 11.8 K/uL (4.8-10.8)
[2017-04-27] MEDS: metOLazone 5 MG TAB PO SCH ×2 (09:13→21:12)
--- NOTE | 2017-04-27 15:07 | CP.PCM.PN ---
<Jaycee Davisa - Last Filed: 04/27/17 15:04> Subjective - Date & Time of Evaluation Date of Evaluation: 04/27/17 Time of Evaluation: 10:00 - Subjective Subjective: Medicine Note for Dr. Ocampo, Patient was seen and examined at bedside. Patient was sitting in chair. Reports his breathing is better. He continues to have pain in his legs. Denied fever, chills, chest pain, abdominal pain, or urinary symptoms. Objective - Vital Signs/Intake and Output Vital Signs (last 24 hours): Temp Pulse Resp BP Pulse Ox 98.2 F 84 20 175/89 H 99 04/27/17 07:53 04/27/17 07:53 04/27/17 07:53 04/27/17 12:15 04/27/17 07:53 Intake and Output: 04/27/17 04/27/17 06:59 18:59 Intake Total 1450 Output Total 5600 Balance -4150 - Medications Medications: Current Medications Albuterol/Ipratropium (Duoneb 3 Mg/0.5 Mg (3 Ml) Ud) 3 ml INH RQ6 PRN PRN Reason: Shortness of Breath Alprazolam (Xanax) 1 mg PO Q6H PRN PRN Reason: Anxiety Last Admin: 04/27/17 06:22 Dose: 1 mg Digoxin (Lanoxin) 0.125 mg PO DAILY@1800 [facility] Last Admin: 04/26/17 17:50 Dose: 0.125 mg Diltiazem HCl (Cardizem) 30 mg PO QID [facility] Last Admin: 04/27/17 14:59 Dose: 30 mg Famotidine (Pepcid) 20 mg PO DAILY [facility] Last Admin: 04/27/17 09:12 Dose: 20 mg Fluoxetine HCl (Prozac) 40 mg PO DAILY [facility] Last Admin: 04/27/17 09:13 Dose: 40 mg Furosemide (Lasix) 40 mg IVP Q6H [facility] Last Admin: 04/27/17 12:15 Dose: 40 mg Gabapentin (Neurontin) 300 mg PO TID [facility] Last Admin: 04/27/17 14:59 Dose: 300 mg Hydrochlorothiazide (Hydrodiuril) 50 mg PO DAILY [facility] Last Admin: 04/27/17 09:12 Dose: 50 mg Metolazone (Zaroxolyn) 5 mg PO Q12 [facility] Last Admin: 04/27/17 09:13 Dose: 5 mg Montelukast Sodium (Singulair) 10 mg PO HS [facility] Last Admin: 04/26/17 21:57 Dose: 10 mg Nicotine (Nicoderm Cq) 1 patch TD DAILY [facility] Last Admin: 04/27/17 09:13 Dose: 1 patch Oxycodone/Acetaminophen (Percocet 5/325 Mg Tab) 2 tab PO Q6H PRN PRN Reason: Pain, moderate (4-7) Stop: 04/30/17 04:40 Last Admin: 04/27/17 12:15 Dose: 2 tab Rosuvastatin Calcium (Crestor) 10 mg PO HS [facility] Last Admin: 04/26/17 23:37 Dose: 10 mg Spironolactone (Aldactone) 25 mg PO DAILY [facility] Last Admin: 04/27/17 09:12 Dose: 25 mg - Labs Labs: 04/27/17 07:11 04/27/17 07:11 PT 20.2 SECONDS (9.7-12.2) H 04/24/17 11:10 INR 1.7 04/24/17 11:10 APTT 38 SECONDS (21-34) H 04/24/17 11:10 - Constitutional Appears: No Acute Distress, Chronically Ill - Head Exam Head Exam: NORMAL INSPECTION, NORMOCEPHALIC - Respiratory Exam Respiratory Exam: Clear to Ausculation Bilateral, NORMAL BREATHING PATTERN. absent: Decreased Breath Sounds, Wheezes - Cardiovascular Exam Cardiovascular Exam: REGULAR RHYTHM, +S1, +S2 - GI/Abdominal Exam GI & Abdominal Exam: Soft, Normal Bowel Sounds. absent: Distended, Tenderness - Extremities Exam Extremities Exam: Pedal Edema - Neurological Exam Neurological Exam: Alert, Awake, Oriented x3 - Skin Skin Exam: Dry, Intact, Normal Color, Warm Assessment and Plan - Assessment and Plan (Free Text) Assessment: 46M with PMH of HTN, CAD, CHF, Afib on coumadin, COPD, ARLENE, bipolar disorder, chronic back pain, herniated discs, presenting to [facility] for chest/ abdominal pain since this morning. Plan: Chest pain - R/O ACS Admit to tele [facility] negative x 3 EKG: Afib, no acute St/T wave changes ECHO (02/2017): LV systolic function severely reduced. LV mildly dilated. Severe global hypokinesis of LV. Negative for endocarditis. Given ASA 325mg in field - hold 81mg PO daily for hematuria BB held due to cocaine use Restart home Enalapril 10mg PO Daily Oxygen 2 liters PRN CHF Bilateral LE edema BNP 5480 CXR (04/22/17): Marked cardiomegaly. Mild central pulmonary venous congestion. Bilateral lower lobe atelectasis and/or alveolar infiltrates ECHO (02/2017): LV systolic function severely reduced. LV mildly dilated. Severe global hypokinesis of LV. Negative for endocarditis. Digoxin 0.125 mg PO daily Lasix 40 mg IVP Q6 HCTZ 50mg PO daily Aldactone 25mg PO daily Metolazone 5mg po q12 I's & O's daily weight f/u arterial studies LE b/l Afib with RVR Now rate controlled Cardizem 30mg po q6H Digoxin 0.125 mg PO daily Pt takes coumadin - states dose is 10mg daily, admits taking inconsistently - states took dose today already - HOLD secondary to hematuria Abdominal pain Hx of splenic hemorrhage CT (04/23/17): Interval decrease in size of fluid air collection lateral to spleen since previous exam. Small left pleural effusion and trace right pleural effusion. Moderate cardiomegaly. Small ascites in abdomen/pelvis. Urinary retention Iniguez catheter placed in ED - pt refused, and it was removed Good urine output after IV lasix Monitor I/Os Hematuria UA (04/23/17): blood 3+, trace LE, bacteria rare, RBC 315 Transaminitis AST/ALT: 62/108 Monitor Cocaine Use Disorder UDS positive: cocaine - pt denies, states last use was February COPD O2 2LNC Duoneb 3ml INH q6h PRN Singulair 10 mg PO HS HTN Lasix 40 mg IVPQ6 Cardizem 30mg po q6h restart home meds: HCTZ 50mg PO daily Aldactone 25mg PO daily CAD Crestor 10mg PO HS ARLENE Pt refusing CPAP at night 2L O2 Anxiety and depression Prozac 40mg po daily Xanax 1mg po Q6 Prophylactic Measures Pepcid 20 mg PO daily VTE ppx c/i SCDs Heart Healthy Diet Nicoderm patch Plan discussed with Dr. Terrence Davis DO, PGY1 <Roque Ocampo Jr. - Last Filed: 04/29/17 14:57> Objective - Vital Signs/Intake and Output Vital Signs (last 24 hours): Temp Pulse Resp BP Pulse Ox 98.3 F 109 H 18 131/83 95 04/28/17 07:20 04/28/17 07:20 04/28/17 07:20 04/28/17 07:20 04/28/17 07:20 - Labs Labs: 04/28/17 07:08 04/28/17 07:08 PT 20.2 SECONDS (9.7-12.2) H 04/24/17 11:10 INR 1.7 04/24/17 11:10 APTT 38 SECONDS (21-34) H 04/24/17 11:10 Attending/Attestation - Attestation I have personally seen and examined this patient.: Yes I have fully participated in the care of the patient.: Yes I have reviewed all pertinent clinical information, including history, physical exam and plan: Yes Notes (Text): 04/29/17 14:57 Agree with resident's findings and plan of care
[2017-04-27] MEDS: Albuterol 0.042% Inhal Sol (1.25 mg/3 mL) UD INH SCH ×2 (17:02→22:45)
[2017-04-27] MEDS: Digoxin 125 mcg (0.125 mg) Tab PO SCH (17:39)
[2017-04-27 17:40] VITALS: PULSE 98
[2017-04-28] MEDS: Oxycodone/Acetaminophen 5/325 mg Tab PO PRN ×3 (00:07→13:27)
[2017-04-28] MEDS: Albuterol 0.042% Inhal Sol (1.25 mg/3 mL) UD INH SCH ×3 (01:06→13:41)
[2017-04-28 07:25] LABS: BASO # 0.1 K/uL (0.0-0.2); BASO % 1.3 % (0.0-2.0); EOS # 0.3 K/uL (0.0-0.7); EOS % 2.7 % (0.0-4.0); HEMATOCRIT 41.3 % (35.0-51.0); LYMPH # 1.8 K/uL (1.0-4.3); LYMPH % 17.6 % (20.0-40.0); MEAN CELL VOLUME 82.7 fL (80.0-94.0); MEAN CORPUSCULAR HEMOGLOBIN 26.6 pg (27.0-31.0); MEAN CORPUSCULAR HGB CONC 32.1 g/dL (33.0-37.0); MEAN PLATELET VOLUME 7.5 fL (7.2-11.7); MONO # 1.3 K/uL (0.0-0.8); MONO % 12.4 % (0.0-10.0); NRBC % 0.1 % (0.0-2.0); RED CELL DISTRIBUTION WIDTH 18.7 % (11.5-14.5); WHITE BLOOD COUNT 10.5 K/uL (4.8-10.8)
[2017-04-28 07:46] LABS: CHLORIDE 86 mmol/L (98-107); POTASSIUM 3.9 mmol/L (3.6-5.2); SODIUM 133 mmol/L (132-148)
[2017-04-28 07:48] LABS: AST/SGOT 72 U/L (17-59); CARBON DIOXIDE 35 mmol/L (22-30); GFR AFRICAN-AMERICAN > 60
[2017-04-28 07:49] LABS: ALB/GLOB RATIO 0.8 (1.0-2.1); ALKALINE PHOSPHATASE 84 U/L (38-126); ALT/SGPT 64 U/L (21-72); BLOOD UREA NITROGEN 30 mg/dL (9-20); CALCIUM 8.5 mg/dl (8.6-10.4); GLUCOSE,RANDOM 80 mg/dL (75-110); PHOSPHOROUS 4.4 mg/dL (2.5-4.5); TOTAL PROTEIN 8.8 g/dL (6.3-8.3)
[2017-04-28 08:13] VITALS: BP 131/83; PULSE 109; RESP 18; TEMP 98.3; O2SAT 95
[2017-04-28] MEDS: metOLazone 5 MG TAB PO SCH (09:33)
--- NOTE | 2017-04-28 13:34 | CP.PCM.DIS ---
Provider - Provider Date of Admission: 04/23/17 19:44 Attending physician: Roque Ocampo Jr, MD Time Spent in preparation of Discharge (in minutes): 45 Hospital Course - Lab Results Lab Results: Most Recent Lab Values WBC 10.5 K/uL (4.8-10.8) 04/28/17 07:08 RBC 4.99 Mil/uL (4.40-5.90) 04/28/17 07:08 Hgb 13.3 g/dL (12.0-18.0) 04/28/17 07:08 Hct 41.3 % (35.0-51.0) 04/28/17 07:08 MCV 82.7 fL (80.0-94.0) 04/28/17 07:08 MCH 26.6 pg (27.0-31.0) L 04/28/17 07:08 MCHC 32.1 g/dL (33.0-37.0) L 04/28/17 07:08 RDW 18.7 % (11.5-14.5) H 04/28/17 07:08 Plt Count 339 K/uL (130-400) 04/28/17 07:08 MPV 7.5 fL (7.2-11.7) 04/28/17 07:08 Neut % (Auto) 66.0 % (50.0-75.0) 04/28/17 07:08 Lymph % (Auto) 17.6 % (20.0-40.0) L 04/28/17 07:08 [place] % (Auto) 12.4 % (0.0-10.0) H 04/28/17 07:08 Eos % (Auto) 2.7 % (0.0-4.0) 04/28/17 07:08 Baso % (Auto) 1.3 % (0.0-2.0) 04/28/17 07:08 Neut # 6.9 K/uL (1.8-7.0) 04/28/17 07:08 Lymph # 1.8 K/uL (1.0-4.3) 04/28/17 07:08 [place] # 1.3 K/uL (0.0-0.8) H 04/28/17 07:08 Eos # 0.3 K/uL (0.0-0.7) 04/28/17 07:08 Baso # 0.1 K/uL (0.0-0.2) 04/28/17 07:08 PT 20.2 SECONDS (9.7-12.2) H 04/24/17 11:10 INR 1.7 04/24/17 11:10 APTT 38 SECONDS (21-34) H 04/24/17 11:10 pO2 43 mm/Hg (30-55) 04/23/17 16:17 VBG pH 7.41 (7.32-7.43) 04/23/17 16:17 VBG pCO2 50 mmHg (40-60) 04/23/17 16:17 VBG HCO3 29.0 mmol/L 04/23/17 16:17 VBG Total CO2 33.2 mmol/L (22-28) H 04/23/17 16:17 VBG O2 Sat (Calc) 79.0 % (40-65) H 04/23/17 16:17 VBG Base Excess 5.8 mmol/L (0.0-2.0) H 04/23/17 16:17 VBG Potassium 4.5 mmol/L (3.6-5.2) 04/23/17 16:17 Sodium 137.0 mmol/l (132-148) 04/23/17 16:17 Chloride 106.0 mmol/L (98-107) 04/23/17 16:17 Glucose 118 mg/dl (75-110) H 04/23/17 16:17 Lactate 1.3 mmol/L (0.7-2.1) 04/23/17 16:17 Sodium 133 mmol/L (132-148) 04/28/17 07:08 Potassium 3.9 mmol/L (3.6-5.2) 04/28/17 07:08 Chloride 86 mmol/L (98-107) L 04/28/17 07:08 Carbon Dioxide 35 mmol/L (22-30) H 04/28/17 07:08 Anion Gap 16 (10-20) 04/28/17 07:08 BUN 30 mg/dL (9-20) H 04/28/17 07:08 Creatinine 1.0 MG/DL (0.8-1.5) 04/28/17 07:08 Est GFR ( Amer) > 60 04/28/17 07:08 Est GFR (Non-Af Amer) > 60 04/28/17 07:08 POC Glucose (mg/dL) 182 mg/dL (65-110) H 04/25/17 21:02 Random Glucose 80 mg/dL (75-110) 04/28/17 07:08 Hemoglobin A1c 6.1 % (4.2-6.5) 04/24/17 11:10 Calcium 8.5 mg/dl (8.6-10.4) L 04/28/17 07:08 Phosphorus 4.4 mg/dL (2.5-4.5) 04/28/17 07:08 Magnesium 2.0 mg/dL (1.6-2.3) 04/28/17 07:08 Total Bilirubin 1.0 mg/dL (0.2-1.3) 04/28/17 07:08 AST 72 U/L (17-59) H 04/28/17 07:08 ALT 64 U/L (21-72) 04/28/17 07:08 Alkaline Phosphatase 84 U/L (38-126) 04/28/17 07:08 Total Creatine Kinase 71 U/L (55-170) 04/24/17 11:10 CK-MB (Mass) 4.17 ng/mL (0.0-3.38) H 04/24/17 11:10 Troponin I 0.0480 ng/mL (0.00-0.120) 04/23/17 16:22 Troponin I, Quant 0.0450 ng/mL (0.00-0.120) 04/24/17 11:10 NT-Pro-B Natriuret Pep 5480 pg/mL (0-450) H 04/23/17 16:22 Total Protein 8.8 g/dL (6.3-8.3) H 04/28/17 07:08 Albumin 3.8 g/dL (3.5-5.0) 04/28/17 07:08 Globulin 4.9 gm/dL (2.2-3.9) H 04/28/17 07:08 Albumin/Globulin Ratio 0.8 (1.0-2.1) L 04/28/17 07:08 Triglycerides 59 mg/dL (0-149) D 04/24/17 11:10 Cholesterol 72 mg/dL (0-199) 04/24/17 11:10 LDL Cholesterol Direct 43 mg/dL (0-129) 04/24/17 11:10 HDL Cholesterol 17 mg/dL (30-70) L 04/24/17 11:10 Lipase 107 U/L (23-300) 04/23/17 16:22 TSH 3rd Generation 6.26 mIU/L (0.46-4.68) H 04/24/17 11:10 Venous Blood Potassium 4.5 mmol/L (3.6-5.2) 04/23/17 16:17 Urine Color Straw (YELLOW) 04/23/17 20:55 Urine Clarity Clear (Clear) 04/23/17 20:55 Urine pH 7.0 (5.0-8.0) 04/23/17 20:55 Ur Specific [place] 1.010 (1.003-1.030) 04/23/17 20:55 Urine Protein Negative mg/dL (NEGATIVE) 04/23/17 20:55 Urine Glucose (UA) Normal mg/dL (Normal) 04/23/17 20:55 Urine Ketones Negative mg/dL (NEGATIVE) 04/23/17 20:55 Urine Blood 3+ (NEGATIVE) H 04/23/17 20:55 Urine Nitrate Negative (NEGATIVE) 04/23/17 20:55 Urine Bilirubin Negative (NEGATIVE) 04/23/17 20:55 Urine Urobilinogen Normal mg/dL (0.2-1.0) 04/23/17 20:55 Ur Leukocyte Esterase Trace Nancie/uL (Negative) H 04/23/17 20:55 Urine WBC (Auto) 7 /hpf (0-5) H 04/23/17 20:55 Urine RBC (Auto) 315 /hpf (0-3) H 04/23/17 20:55 Urine Bacteria Rare (<OCC) 04/23/17 20:55 Digoxin < 0.4 ng/mL (0.8-2.0) L 04/23/17 16:22 Urine Opiates Screen Negative (NEGATIVE) 04/23/17 17:23 Urine Methadone Screen Negative (NEGATIVE) 04/23/17 17:23 Ur Barbiturates Screen Negative (NEGATIVE) 04/23/17 17:23 Ur Phencyclidine Scrn Negative (NEGATIVE) 05/25/17 17:23 Ur Amphetamines Screen Negative (NEGATIVE) 04/23/17 17:23 U Benzodiazepines Scrn Positive (NEGATIVE) 04/23/17 17:23 U Oth Cocaine Metabols Positive (NEGATIVE) 04/23/17 17:23 U Cannabinoids Screen Negative (NEGATIVE) 04/23/17 17:23 - Hospital Course Hospital Course: Upon Admission 46M with PMH of HTN, CAD, CHF, Afib on coumadin, COPD, ARLENE, bipolar disorder, chronic back pain, herniated discs, presenting to [facility] for chest/ abdominal pain since this morning. Pt reports that the pain began while he was watching tv this morning at his adult day care center. He describes the pain as located in his left chest and upper abdomen. He rates the pain as 10/10 at the worst this AM, but states the dilaudid in ED has pain as 2/10. He denies nausea , vomiting, diarrhea, but admits constipation. The abdominal pain has also been associated with increasing abdominal distention, leg swelling, and bladder fullness. He admits his leg swelling has increased over the last 2 days, and he has been unable to lay flat, requiring two pillows. He reports that he was unable to urinate all day, until alarcon catheter was placed in ED. He denies previous episodes of urinary retention, hematuria, or BPH. Pt denies recent drug use, admitting last use of cocaine "in February." Pt admits taking his medication inconsistently, but states he takes his "heart pills" daily. Patient was admitted to [facility]. Patient had JOSE negative x 3 and EKG showing Afib , no acute St/T wave changes. ECHO (02/2017): LV systolic function severely reduced. LV mildly dilated. Severe global hypokinesis of LV. Negative for endocarditis. Patient's ASA held for hematuria and beta jenny held due to cocaine abuse. Patient's enalapril was restarted. He was admitted with BNP of 5480. CXR (04/22/17) showed Marked cardiomegaly. Mild central pulmonary venous congestion. Bilateral lower lobe atelectasis and/or alveolar infiltrates. Patient was started on Digoxin 0.125 mg PO daily, Lasix 40 mg IVP Q6, HCTZ 50mg PO daily, Aldactone 25mg PO daily, Metolazone 5mg po q12. Arterial studies were ordered. Patient's Afib was controlled on cardizem 30mg po q6H and digoxin. Coumadin was on hold secondary to hematuria and hx of splenic hemorrhage. CT Abd /pelvis (04/23/17) showed Interval decrease in size of fluid air collection lateral to spleen since previous exam. Small left pleural effusion and trace right pleural effusion. Moderate cardiomegaly. Small ascites in abdomen/pelvis. Patient's urinary retention resolved with lasix and transaminits downtrended. Patient's UDS was positive for cocaine. For his COPD he was given Duoneb 3ml INH q6h PRN and Singulair 10 mg PO HS. For his hypertension he was given HCTZ 50mg PO daily, Aldactone 25mg PO daily, lasix, and cardizem. Patient was also given crestor. For his anxiety and depresison patient was given prozac 40mg po daily and xanax 1mg po q6. Patient had to have a 1:1 sitter and flight security specialist at all times due to aggressive and erratic behavior. Upon Discharge Patient stable for discharge home as per Dr. Ocampo Patient to resume all medications. Patient to follow up with PMD Dr. Ocampo in 7 days Address: [address] [place] [address] [address] floor, [place] [address] Patient will receive results of exam during visit with PMD If symptoms persist or worsen patient to visit ED immediately. Instructions discussed in detail with patient who understands and agrees. Please note this is a discharge summary . For full hospital course please refer to medical records. Discharge Exam - Head Exam Head Exam: NORMAL INSPECTION, NORMOCEPHALIC - Eye Exam Eye Exam: EOMI, Normal appearance, PERRL. absent: Conjunctival injection, Scleral icterus Pupil Exam: NORMAL ACCOMODATION - ENT Exam ENT Exam: Mucous Membranes Moist - Neck Exam Neck exam: Full Rom, Normal Inspection - Respiratory Exam Respiratory Exam: Clear to PA & Lateral, NORMAL BREATHING PATTERN. absent: Accessory Muscle Use, Rales, Rhonchi, Wheezes, Respiratory Distress - Cardiovascular Exam Cardiovascular Exam: Irregular Rhythm, +S1, +S2. absent: Bradycardia, Tachycardia, RRR - GI/Abdominal Exam GI & Abdominal Exam: Normal Bowel Sounds, Soft. absent: Tenderness - Extremities Exam Extremities exam: pedal edema - Back Exam Back exam: NORMAL INSPECTION. absent: rash noted - Neurological Exam Neurological exam: Alert, Oriented x3 - Psychiatric Exam Psychiatric exam: Agitated, Anxious - Skin Skin Exam: Dry, Intact, Normal Color Discharge Plan - Follow Up Plan Condition: STABLE Disposition: HOME/ ROUTINE Instructions: Heart Failure (DC), Heart Healthy Diet (DC), Acute Abdominal Pain (DC), Acute Abdominal Pain (GEN) Additional Instructions: Patient stable for discharge home as per Dr. Ocampo Patient to resume all medications. Patient to follow up with PMD Dr. Ocampo in 7 days Address: [address] [place] [address] [address] [place] [address] Patient will receive results of exam during visit with PMD If symptoms persist or worsen patient to visit ED immediately. Instructions discussed in detail with patient who understands and agrees. Referrals: Roque Ocampo Jr., MD [Medical Doctor] -
--- NOTE | 2017-04-29 07:33 | VASCLAB ---
STUDY DESCRIPTION: HISTORY: PVD PRIORS: None. TECHNIQUE: Pulse volume recording waveforms and segmental pressures of bilateral lower extremities at multiple levels were obtained. Ankle Brachial Indices (ABIs) were calculated. Report prepared by DEMETRIUS Pugh, RVT RIGHT LOWER EXTREMITY: * Brachial artery: Pressure - 123 mmHg. * High thigh: Pressure - mmHg: Ratio - : PVR waveform - * Low thigh: Pressure - mmHg: Ratio - PVR waveform: Pulsatile * Calf: Pressure - mmHg: Ratio - PVR waveform: Pulsatile * Posterior tibial Artery: Pressure - 169 mmHg: Ratio - 1.31 PVR waveform: Pulsatile * Dorsalis pedis Artery: Pressure - 155 mmHg: Ratio - 1.20 PVR waveform: Pulsatile * Great toe: Pressure - mmHg: Ratio - PVR waveform: Ankle brachial index (KOBI): 1.31 LEFT LOWER EXTREMITY: * Brachial artery: Pressure - 129 mmHg. * High thigh: Pressure - mmHg: Ratio - : PVR waveform - * Low thigh: Pressure - mmHg: Ratio - PVR waveform: Pulsatile * Calf: Pressure - mmHg: Ratio - PVR waveform: Pulsatile * Posterior tibial Artery: Pressure - 180 mmHg: Ratio - 1.40 PVR waveform: Pulsatile * Dorsalis pedis Artery: Pressure - 155 mmHg: Ratio - 1.20 PVR waveform: Pulsatile * Great toe: Pressure - mmHg: Ratio - PVR waveform: Ankle brachial index (KOBI): 1.40 OTHER FINDINGS: Right: Left: IMPRESSION: Right: The ankle pressure index of the right lower extremity is non-diagnostic due to possible arterial wall calcifications. Left: The ankle pressure index of the left lower extremity is non-diagnostic due to possible arterial wall calcifications.
--- NOTE | 2017-04-29 20:51 | CARD ---
APPROVED REPORT EKG Measurement Heart [id number] <Conclusion> Atrial fibrillation with rapid ventricular response Incomplete right bundle branch block Left anterior fascicular block Inferior infarct, age undetermined Cannot rule out Anterior infarct, age undetermined ST & T wave abnormality, consider lateral ischemia Abnormal ECG
== END 2017-04-28 14:08 | disposition home or self-care (01) | DRG 293 ==
LOC: C.ER 14:55 → C.9E 19:44 → C.6T 20:27
PROVIDERS: ADMIT Internal Medicine; ATTEND Internal Medicine
DX: I11.0 Hypertensive heart disease with heart failure (principal); I25.118 Atherosclerotic heart disease of native coronary artery with other forms of angina pectoris; F14.10 Cocaine abuse, uncomplicated; R10.84 Generalized abdominal pain; J43.9 Emphysema, unspecified; I50.9 Heart failure, unspecified; I48.91 Unspecified atrial fibrillation; R33.9 Retention of urine, unspecified; J45.909 Unspecified asthma, uncomplicated; G47.33 Obstructive sleep apnea (adult) (pediatric); F31.9 Bipolar disorder, unspecified; M51.26 Other intervertebral disc displacement, lumbar region; G89.29 Other chronic pain; E78.00 Pure hypercholesterolemia, unspecified; Z79.01 Long term (current) use of anticoagulants; Z95.5 Presence of coronary angioplasty implant and graft; Z87.891 Personal history of nicotine dependence; F41.9 Anxiety disorder, unspecified; M54.5 Low back pain

== ENCOUNTER 2017-05-04 19:54 | Inpatient (IN) | payer MEDICARE, MEDICAID ==
[2017-05-04 19:54] VITALS: BMI 54.5
[2017-05-04] MEDS ORDERED: Sodium Chloride 0.9% 500 ML IV ONE (20:43)
[2017-05-04 20:46] LABS: VENOUS BLOOD GAS BASE EXCESS 1.3 mmol/L (0.0-2.0); VENOUS BLOOD GAS PCO2 40 mmHg (40-60); VENOUS BLOOD PH 7.42 (7.32-7.43)
[2017-05-04 20:53] LABS: CHLORIDE 98 mmol/L (98-107)
[2017-05-04 20:54] LABS: POTASSIUM 3.9 mmol/L (3.6-5.2); SODIUM 137 mmol/L (132-148)
[2017-05-04 20:56] LABS: ALB/GLOB RATIO 0.8 (1.0-2.1); ALKALINE PHOSPHATASE 60 U/L (38-126); AST/SGOT 46 U/L (17-59); BILIRUBIN,TOTAL 1.1 mg/dL (0.2-1.3); BLOOD UREA NITROGEN 17 mg/dL (9-20); CARBON DIOXIDE 26 mmol/L (22-30); GFR AFRICAN-AMERICAN > 60; TOTAL PROTEIN 8.7 g/dL (6.3-8.3)
[2017-05-04 20:57] LABS: ALT/SGPT 44 U/L (21-72); CALCIUM 8.4 mg/dl (8.6-10.4); GLUCOSE,RANDOM 109 mg/dL (75-110)
[2017-05-04 21:08] LABS: BASO # 0.1 K/uL (0.0-0.2); BASO % 1.1 % (0.0-2.0); EOS # 0.1 K/uL (0.0-0.7); EOS % 1.1 % (0.0-4.0); HEMATOCRIT 39.9 % (35.0-51.0); LYMPH # 1.7 K/uL (1.0-4.3); LYMPH % 14.8 % (20.0-40.0); MEAN CELL VOLUME 81.6 fL (80.0-94.0); MEAN CORPUSCULAR HEMOGLOBIN 25.5 pg (27.0-31.0); MEAN CORPUSCULAR HGB CONC 31.3 g/dL (33.0-37.0); MEAN PLATELET VOLUME 8.1 fL (7.2-11.7); MONO # 0.9 K/uL (0.0-0.8); MONO % 7.8 % (0.0-10.0); NRBC % 0.1 % (0.0-2.0); WHITE BLOOD COUNT 11.4 K/uL (4.8-10.8)
--- NOTE | 2017-05-04 21:14 | C.PDOC ---
History Of Present Illness The patient, a 46 y/o male, presents to the ED for evaluation of chest pain, shortness of breath, and feeling of a heavy anxiety attack which began earlier today. Patient reports history of spleen injury in the past. Patient denies fever, cough, palpitations, nausea, vomiting, extremity numbness/weakness. Chief Complaint (Nursing): Shortness Of Breath History Per: Patient History/Exam Limitations: no limitations Onset/Duration Of Symptoms: Hrs Current Symptoms Are (Timing): Still Present Quality: "Pain" Exacerbating Factor(s): denies: Coughing Current Respiratory Medications: See Home Med List Associated Symptoms: Chest Pain. denies: Fever, Chills, Bloody Cough, Productive Cough Additional History Per: Patient Past Medical History Reviewed: Historical Data, Nursing Documentation, Vital Signs Vital Signs: Last Vital Signs Temp 97.9 F 05/04/17 20:02 Pulse 100 H 05/04/17 21:54 Resp 26 H 05/04/17 21:54 BP 139/101 H 05/04/17 21:54 Pulse Ox 94 L 05/05/17 00:30 - Medical History PMH: Anxiety, Asthma, Atrial Fibrillation, Back Problems, Bipolar Disorder, CAD , Cardia Arrhythmia, CHF, COPD, Depression, Emphysema, HTN, Hypercholesterolemia , Peripheral Edema, Sleep Apnea, Chronic Pain (Lower Back Pain) Denies: Chronic Kidney Disease Surgical History: Appendectomy (2008), Coronary Stent (2008 - 2012 4 stents) - [facility] Procedures CORONAR ARTERIOGR-2 CATH (07/06/13) DRAINAGE OF SPLEEN, PERCUTANEOUS APPROACH (03/05/17) INJECT/INFUSE NEC (02/22/14) LEFT HEART CARDIAC CATH (07/06/13) LT HEART ANGIOCARDIOGRAM (07/06/13) NEBULIZER THERAPY (03/28/14) NON-INVASIVE MECHANICAL VENTILATION (03/26/15) TRANSFUSE NONAUT FROZEN PLASMA IN PERIPH VEIN, PERC (02/21/17) Family History: States: Unknown Family Hx, CAD, Diabetes - Social History Hx Tobacco Use: Yes Hx Alcohol Use: Yes (social) Hx Substance Use: Yes - Immunization History Hx Tetanus Toxoid Vaccination: Yes Hx Influenza Vaccination: Yes Hx Pneumococcal Vaccination: Yes (08/2014) Review Of Systems Except As Marked, All Systems Reviewed And Found Negative. Constitutional: Negative for: Fever, Chills Cardiovascular: Positive for: Chest Pain. Negative for: Palpitations Respiratory: Positive for: Shortness of Breath. Negative for: Cough Gastrointestinal: Negative for: Nausea, Vomiting Psych: Positive for: Anxiety (heavy anxiety attack ) Physical Exam - Physical Exam Appears: Non-toxic, No Acute Distress, Other (+anxious ) Skin: Normal Color, Warm, Dry Head: Atraumatic, Normacephalic Eye(s): bilateral: Normal Inspection, PERRL, EOMI Oral Mucosa: Moist Neck: Normal ROM, Supple Chest: Symmetrical, No Deformity, No Tenderness Cardiovascular: Rhythm Regular, No Murmur, Other (+tachycardic ) Respiratory: No Rales, Rhonchi (occasional ), No Wheezing Gastrointestinal/Abdominal: Soft, Tenderness (generalized ), Distention, No Guarding, No Rebound Extremity: Normal ROM, Capillary Refill (less than 2 seconds ) Neurological/Psych: Oriented x3, Normal Speech, Normal Cognition Gait: Steady ED Course And Treatment - Laboratory Results Result Diagrams: 05/04/17 20:38 05/04/17 20:38 O2 Sat by Pulse Oximetry: 94 Progress Note: labs, CT Abdomen, and EKG ordered and reviewed. Pt received Ativan IV and IV Fluids. Disposition Discussed With Dr.: Roque Ocampo Jr. Doctor Will See Patient In The: Hospital Counseled Patient/Family Regarding: Diagnosis - Disposition Disposition: HOSPITALIZED Disposition Time: 00:28 Condition: STABLE - Clinical Impression Clinical Impression: Congestive heart failure, Abdominal pain - Scribe Statement The provider has reviewed the documentation as recorded by the Scribe (Madhavi Razo) Provider Attestation: All medical record entries made by the Scribe were at my direction and personally dictated by me. I have reviewed the chart and agree that the record accurately reflects my personal performance of the history, physical exam, medical decision making, and the department course for this patient. I have also personally directed, reviewed, and agree with the discharge instructions and disposition.
[2017-05-04 21:17] LABS: INR 1.3
[2017-05-04] MEDS ORDERED: Iodixanol 320 MG/ML 100 ML BOTTLE IV ONE (21:58)
[2017-05-04] MEDS ORDERED: Albuterol-Ipratrop 3 mg / 0.5 (3 ml) UD INH STA (23:53)
[2017-05-04] MEDS ORDERED: Albuterol-Ipratrop 3 mg / 0.5 (3 ml) UD ONE (23:56)
--- NOTE | 2017-05-05 00:14 | CT ---
EXAM: CT Chest With Intravenous Contrast CLINICAL HISTORY: 46 years old, male; Pain; Abdominal pain; Flank; Upper; Chest pain and chest wall pain; Patient HX: Ruptured spleen; Additional info: Chest/ abd pain TECHNIQUE: Axial computed tomography images of the chest with intravenous contrast. This CT exam was performed using one or more of the following dose reduction techniques: automated exposure control, adjustment of the mA and/or kV according to patient size, and/or use of iterative reconstruction technique. Coronal and sagittal reformatted images were created and reviewed. CONTRAST: 100 mL of visipaque administered intravenously. COMPARISON: No relevant prior studies available. FINDINGS: Lungs: The lungs are of note for markedly asymmetric findings with extensive unilateral right sided prominent lung markings. Differential is broad and includes asymmetric edema, chronic interstitial thickening, interstitial spread of malignancy. In addition, see for example series 6 image 30, there are scattered superimposed subtle nodules versus areas where the findings are somewhat more confluent. Series 6 image 40 there is a more discrete and more solid appearing 6 mm right lower lobe subpleural nodule. Clarification and further evaluation of the right lung is recommended. This represents a change compared to prior of June 2016 at which time the lungs were relatively symmetric in appearance. Note that the extensive abnormality in the right chest does limit evaluation for additional nodules. Pleural space: Unremarkable. No pneumothorax. No significant effusion. Heart: There is cardiomegaly approximately similar to previous chest CT of July 07, 2016. There is physiologic pericardial effusion. There are extensive calcifications in keeping with coronary artery disease. Mediastinum: Air in the esophagus in keeping with reflux. Small hiatus hernia. Bones/joints: Unremarkable. No acute fracture. No dislocation. Soft tissues: Gynecomastia Vasculature: No central pulmonary embolism is seen comment this study is not designed as a pulmonary angiogram. There is no thoracic aortic aneurysm or dissection. Lymph nodes: Mediastinal nodes. See for example series 6 image 17, series 6 image 21. There are multiple azygos region, and superior mediastinal, left para-aortic nodes, up to 15 mm in short axis and meeting size criteria for pathologic enlargement of low in with relatively little interval change since June 2016. Details of workup are not available at this time. Prominent right hilar node. Upper abdomen: There are no previous images for comparison, however, there are reports of previous imaging of the abdomen and pelvis March 25, 2017, as well as numerous additional prior, and previous chest CT dated July 07, 2016. Previous abdominal imaging has been requested. Regarding the abdomen please refer to dedicated CT of the abdomen and pelvis. IMPRESSION: No finding of severe asymmetry in the lung markings which might reflect unilateral hypoinflation, interstitial spread of malignancy or other interstitial pathology. Approximately stable cardiomegaly. Redemonstration of coronary artery calcifications. No obvious changes in adenopathy again noting mediastinal enlarged right hilar nodes. EXAM: CT Abdomen With Intravenous Contrast CLINICAL HISTORY: 46 years old, male; Pain; Abdominal pain; Flank; Upper; Chest pain and chest wall pain; Patient HX: Ruptured spleen; Additional info: Chest/ abd pain TECHNIQUE: Axial computed tomography images of the abdomen with intravenous contrast. This CT exam was performed using one or more of the following dose reduction techniques: automated exposure control, adjustment of the mA and/or kV according to patient size, and/or use of iterative reconstruction technique. Coronal and sagittal reformatted images were created and reviewed. CONTRAST: 100 mL of visipaque administered intravenously. EXAM DATE/TIME: Exam ordered 05/04/2017 8:45 PM COMPARISON: CT - ANGIO CHEST PE PROTOCOL 07/07/2016 12:44:43 PM FINDINGS: There are no previous images for comparison, however, there are reports of previous imaging of the abdomen and pelvis March 25, 2017, as well as numerous additional prior, and previous chest CT dated July 07, 2016. Previous abdominal imaging has been requested. At this time there are no previous CTs available for comparison which were performed after the splenic injury. Lower thorax: see chest ct Liver: suggestion of a nodular contour, clinical correlation. Gallbladder and bile ducts: Gallbladder is collapsed although cannot exclude some wall thickening or para cholecystic fluid. No ductal dilation. Pancreas: Unremarkable. No mass. No ductal dilation. Spleen: Favor that at least part of the loculated air adjacent to the spleen is within the splenic capsule, see intraperitoneal space. No splenomegaly. Adrenals: Unremarkable. No mass. Kidneys and ureters: There is bilateral perinephric stranding, no hydronephrosis, correlate for infection. Stomach and bowel: Diverticular disease of the included portions of the colon. No obstruction. No mucosal thickening. Appendix: The appendix is not included on this abdomen only study. Intraperitoneal space: An air and fluid collection lateral to the spleen, possibly contained in whole or in part within the splenic capsule, appears to be loculated with a small amount of adjacent ascites, see for example axial image 119, the perisplenic air and soft tissue attenuation is inseparable from the immediately adjacent descending colon, see for example series 6 image 133 through 125, and sagittal images 162 and adjacent, a communication between the colon and in the fluid collection is not excluded on this noncontrast study. there is in addition either a second loculated air collection or possibly a small intraperitoneal air collection, seen immediately beneath the left hemidiaphragm coronal image 105, axial image 88 , noting that the collections, loculated air, and concern for communication with the descending colon all were described on previous unavailable CT dated March 25, 2017. Bones/joints: No acute fracture. No dislocation. Soft tissues: No hernias containing bowel. Vasculature: There is vascular calcification in keeping with atherosclerosis. No abdominal aortic aneurysm. Lymph nodes: There is pathologic enlargement of portacaval and periportal nodes, no appropriate comparison study presently available. Additional pathologic nodes for example at the level of the left renal vein in the left para-aortic region. Other findings: Please note that this is a CT of the abdomen only and the pelvis is not included. IMPRESSION: No appropriate comparison study is available. Air and fluid appearing loculated adjacent to the spleen versus beneath this splenic capsule, with continuing concern for fistulous communication to the descending colon. Adenopathy in the periportal and peripancreatic regions for which further evaluation is recommended. Advise correlation for possibility of cirrhosis. Comparison on site is recommended.
--- NOTE | 2017-05-05 01:03 | CP.PCM.HP ---
History of Present Illness - History of Present Illness History of Present Illness: CC: I'm anxious HPI: 46M with PMH of HTN, CAD, CHF, Afib, COPD, ARLENE, bipolar disorder, chronic back pain, herniated discs, presenting to [facility] for anxiety and because he ran out of his medications. Patient reports he felt very anxious this AM and had to come in and was requesting 1mg xanax. He stated ativan does not help his anxiety. He stated he finished his medications over the last 2 weeks and has not taken any xanax over the last 2 days. He also stated his last use of cocaine was 5 days ago. Although patient reported he has run out of medications, nursing staff noted he was taking medications from his backpack and refusing to disclose what they were. Patient admitted to diaphoresis, weakness, headache, dizizness, lightheadedness, blurry vision, palpitations, SOB , cough, abdominal pain, nausea, 24 episodes of nonbloody nonmelanotic diarrhea the day before admission, urinary frequency, leg pain and swelling b/l, rash, bruising. He denied changes in hearing, sore throat, dysphagia, acute chest pain , vomiting, hematemesis, constipation, hematochezia, dysuria, back pain, bleeding, recent travel, recent sickness, sick contacts, change in appetite. Patient did report that his lower extremity swelling and redness had improved but his ankles and feet were more painful on this encounter. When asked if he had any trauma to the area he was unclear. Please note patient is a poor historian and changed his story over the three separate times I went to go see him. Please note: Patient is noncompliant and aggressive toward nursing staff. When he is left alone, nurses have noted he has been taking medications that are in his backpack that he refuses to disclose the names of. Patient has only shown staff an unlabeled bottle which he states is ciprofloxacin. Nursing has seen him take medications from other bottles which he adamantly refuses to disclose. Patient also refuses his TELE monitor and O2 Nasal canula and is refusing to comply with his urine drug screen. Nursing staff have documented this and written a VERGE PMH: HTN, CAD, CHF, Afib, COPD, ARLENE, Herniated discs L-spine, Bipolar/Depression , Asthma Meds: Diltiazem, ASA, Carvedilol, digoxin, enalapril, percocet, cyclobenzaprine , HCTZ, k-dur, Lasix, Albuterol, Prozac, Simvastatin, Montelukast, Tizanidine, Xanax, Gabapentin. Allergy: Apixaban, clopidogrel, enoxaparin, Morphine PSH: Appendectomy (2009), Coronary stents x4 ([id number]) Hosp: multiple admissions recently for SOB, splenic hematoma and bacteremia FH: Did not provide Social: Denies tobacco use- wears a nicotine patch. Social alcohol use; Admits to Cocaine use Present on Admission - Present on Admission Any Indicators Present on Admission: No Review of Systems - Review of Systems Systems not reviewed;Unavailable: Uncooperative Review of Systems: please note patient was saying YES to every question on ROS and then later refusing to answer ROS - Constitutional Constitutional: As Per HPI, Chills, Fever, Headache, Weight Loss (290 lb --> 280 lb as per patient), Weakness - EENT Eyes: As Per HPI, Blurred Vision Ears: As Per HPI, Dizziness. absent: Tinnitus Nose/Mouth/Throat: As Per HPI. absent: Dysphagia, Sore Throat - Cardiovascular Cardiovascular: As Per HPI, Dyspnea on Exertion, Edema, Leg Edema, Palpitations , Pedal Edema. absent: Chest Pain - Respiratory Respiratory: As Per HPI, Cough, Dyspnea on Exertion, Wheezing, Chest Congestion - Gastrointestinal Gastrointestinal: As Per HPI, Abdominal Pain, Diarrhea (24 episodes in 24 hours as per patient - nonbloody nonmelanotic), Loose Stools, Nausea. absent: Coffee Ground Emesis, Heartburn, Hematemesis, Hematochezia, Melena, Vomiting - Genitourinary Genitourinary: As Per HPI, Urinary Frequency (increased). absent: Dysuria, Hematuria, Pyuria, Nocturia - Musculoskeletal Musculoskeletal: As Per HPI, Arthralgias, Stiffness. absent: Back Pain, Numbness, Tingling - Integumentary Integumentary: As Per HPI, Erythema (feet b/l), Rash (would not specify type), Unusual Bruising, Wounds (on arms b/l). absent: Dry Skin, Pruritus, Skin Pain - Neurological Neurological: As Per HPI, Dizziness, Headaches, Weakness - Psychiatric Psychiatric: As Per HPI, Anxiety, Depression, Irritability - Endocrine Endocrine: As Per HPI, Palpitations, Polyuria. absent: Polydipsia, Polyphagia - Hematologic/Lymphatic Hematologic: As Per HPI, Easy Bruising. absent: Easy Bleeding, Lymphadenopathy Past Patient History - Infectious Disease Hx of Infectious Diseases: None - Tetanus Immunizations Tetanus Immunization: Up to Date - Past Medical History & Family History Past Medical History?: Yes - Past Social History Smoking Status: Former Smoker - CARDIAC Hx Atrial Fibrillation: Yes Hx Cardia Arrhythmia: Yes Hx Congestive Heart Failure: Yes Hx Hypercholesterolemia: Yes Hx Hypertension: Yes Hx Peripheral Edema: Yes - PULMONARY Hx Asthma: Yes Hx Chronic Obstructive Pulmonary Disease (COPD): Yes Hx Emphysema: Yes Hx Sleep Apnea: Yes - NEUROLOGICAL Hx Neurological Disorder: No - HEENT Hx HEENT Problems: No - RENAL Hx Chronic Kidney Disease: No - ENDOCRINE/METABOLIC Hx Endocrine Disorders: No - HEMATOLOGICAL/ONCOLOGICAL Hx Blood Disorders: Yes - INTEGUMENTARY Hx Dermatological Problems: No - MUSCULOSKELETAL/RHEUMATOLOGICAL Hx Musculoskeletal Disorders: Yes Hx Falls: Yes - GASTROINTESTINAL Hx Gastrointestinal Disorders: Yes - GENITOURINARY/GYNECOLOGICAL Hx Genitourinary Disorders: No - PSYCHIATRIC Hx Anxiety: Yes Hx Bipolar Disorder: Yes Hx Depression: Yes Hx Substance Use: Yes - SURGICAL HISTORY Hx Appendectomy: Yes (2008) Hx Coronary Stent: Yes (2008 - 2012 4 stents) - ANESTHESIA Hx Anesthesia: Yes Hx Anesthesia Reactions: No Hx Malignant Hyperthermia: No Meds Allergies/Adverse Reactions: Allergies Allergy/AdvReac Type Severity Reaction Status Date / Time apixaban [From Eliquis] Allergy RASH Verified 04/23/17 15:02 clopidogrel bisulfate Allergy RASH Verified 04/23/17 15:02 [From Plavix] enoxaparin sodium Allergy RASH Verified 04/23/17 15:02 [From Lovenox] morphine Allergy RASH Verified 04/23/17 15:02 Physical Exam - Constitutional Appears: Combative - Head Exam Head Exam: ATRAUMATIC, NORMAL INSPECTION, NORMOCEPHALIC - Eye Exam Eye Exam: Normal appearance. absent: Conjunctival injection, Scleral icterus - ENT Exam ENT Exam: Mucous Membranes Dry - Neck Exam Neck exam: Positive for: Full Rom - Respiratory Exam Respiratory Exam: Prolonged Expiratory Phase, Wheezes (scattered), NORMAL BREATHING PATTERN. absent: Accessory Muscle Use, Rales, Rhonchi, Respiratory Distress - Cardiovascular Exam Cardiovascular Exam: Tachycardia, Irregular Rhythm, +S1, +S2. absent: Systolic Murmur - GI/Abdominal Exam GI & Abdominal Exam: Normal Bowel Sounds, Soft, Tenderness (diffuse to palpation ). absent: Firm, Guarding, Rigid - Rectal Exam Rectal Exam: Deferred - Extremities Exam Extremities exam: Positive for: pedal edema (+1 b/l - much improved since previous admission). Negative for: normal inspection, tenderness Additional comments: varicose veins noted b/l patient applied Beng[place] to feet b/l due to pain onychomycosis b/l - Back Exam Back exam: NORMAL INSPECTION. absent: rash noted - Neurological Exam Neurological exam: Alert, Oriented x3 - Psychiatric Exam Psychiatric exam: Agitated, Anxious - Skin Skin Exam: Dry, Erythema (b/l feet) Additional comments: multiple abrasaions and ecchymosis noted on extremities Results - Vital Signs Recent Vital Signs: Last Vital Signs Temp 97.9 F 05/04/17 20:02 Pulse 100 H 05/04/17 21:54 Resp 26 H 05/04/17 21:54 BP 139/101 H 05/04/17 21:54 Pulse Ox 94 L 05/05/17 00:30 - Labs Result Diagrams: 05/04/17 20:38 05/04/17 20:38 Labs: Laboratory Results - last 24 hr 05/04/17 05/04/17 05/04/17 20:38 20:38 20:38 WBC 11.4 H RBC 4.89 Hgb 12.5 Hct 39.9 MCV 81.6 MCH 25.5 L MCHC 31.3 L RDW 19.0 H Plt Count 309 MPV 8.1 Neut % (Auto) 75.2 H Lymph % (Auto) 14.8 L [place] % (Auto) 7.8 Eos % (Auto) 1.1 Baso % (Auto) 1.1 Neut # 8.5 H Lymph # 1.7 [place] # 0.9 H Eos # 0.1 Baso # 0.1 PT 14.8 H INR 1.3 APTT 36 H pO2 VBG pH VBG pCO2 VBG HCO3 VBG Total CO2 VBG O2 Sat (Calc) VBG Base Excess VBG Potassium Glucose Lactate Sodium 137 Potassium 3.9 Chloride 98 Carbon Dioxide 26 Anion Gap 16 BUN 17 Creatinine 0.9 Est GFR ( Amer) > 60 Est GFR (Non-Af Amer) > 60 Random Glucose 109 Calcium 8.4 L Total Bilirubin 1.1 AST 46 ALT 44 Alkaline Phosphatase 60 Total Creatine Kinase 116 CK-MB (Mass) 4.31 H Troponin I, Quant 0.0480 NT-Pro-B Natriuret Pep 8210 H Total Protein 8.7 H Albumin 3.9 Globulin 4.8 H Albumin/Globulin Ratio 0.8 L Venous Blood Potassium 05/04/17 20:42 WBC RBC Hgb Hct MCV MCH MCHC RDW Plt Count MPV Neut % (Auto) Lymph % (Auto) [place] % (Auto) Eos % (Auto) Baso % (Auto) Neut # Lymph # [place] # Eos # Baso # PT INR APTT pO2 55 VBG pH 7.42 VBG pCO2 40 VBG HCO3 25.7 VBG Total CO2 27.1 VBG O2 Sat (Calc) 92.5 H VBG Base Excess 1.3 VBG Potassium 3.7 Glucose 107 Lactate 1.3 Sodium 138.0 Potassium Chloride 103.0 Carbon Dioxide Anion Gap BUN Creatinine Est GFR ( Amer) Est GFR (Non-Af Amer) Random Glucose Calcium Total Bilirubin AST ALT Alkaline Phosphatase Total Creatine Kinase CK-MB (Mass) Troponin I, Quant NT-Pro-B Natriuret Pep Total Protein Albumin Globulin Albumin/Globulin Ratio Venous Blood Potassium 3.7 Assessment & Plan - Assessment and Plan (Free Text) Assessment: 46M with PMH of HTN, CAD, CHF, Afib, COPD, ARLENE, bipolar disorder, chronic back pain, herniated discs, presenting to [facility] for anxiety Plan: Please note: Patient is noncompliant and aggressive toward nursing staff. When he is left alone, nurses have noted he has been taking medications that are in his backpack that he refuses to disclose the names of. Patient has only shown staff an unlabeled bottle which he states is ciprofloxacin. Nursing has seen him take medications from other bottles which he adamantly refuses to disclose. Patient also refuses his TELE monitor and O2 Nasal canula and is refusing to comply with his urine drug screen. Nursing staff have documented this and written a VERGE Anxiety and depression - PER DR. DAVIS HOLD ALL MEDS UNTIL PATIENT DISCLOSES WHAT HE IS TAKING WHEN NURSING STAFF IS NOT IN THE ROOM AND COMPLIES WITH UDS On last admission patient was on: Prozac 40mg po daily Xanax 1mg po Q6 CHF -Bilateral LE +1 pitting edema - improved since prior admission -BNP 8210 elevated from 5480 on prior admission admission -CXR (04/22/17): Marked cardiomegaly. Mild central pulmonary venous congestion. Bilateral lower lobe atelectasis and/or alveolar infiltrates -ECHO (02/2017): LV systolic function severely reduced. LV mildly dilated. Severe global hypokinesis of LV. Negative for endocarditis. - PER DR. DAVIS HOLD ALL MEDS UNTIL PATIENT DISCLOSES WHAT HE IS TAKING WHEN NURSING STAFF IS NOT IN THE ROOM AND COMPLIES WITH UDS On last admission patient was on: -Digoxin 0.125 mg PO daily -Lasix 40 mg IVP Q6h -HCTZ 50mg PO daily -Aldactone 25mg PO daily -Metolazone 5mg po q12 -I's & O's -daily weight Hx of Afib - PER DR. DAVIS HOLD ALL MEDS UNTIL PATIENT DISCLOSES WHAT HE IS TAKING WHEN NURSING STAFF IS NOT IN THE ROOM AND COMPLIES WITH UDS On last admission patient was on: -Cardizem 30mg po q6H -Digoxin 0.125 mg PO daily -Coumadin on hold secondary to hematuria and splenic hemorrhage hx Abdominal pain - PER DR. DAVIS HOLD ALL MEDS UNTIL PATIENT DISCLOSES WHAT HE IS TAKING WHEN NURSING STAFF IS NOT IN THE ROOM AND COMPLIES WITH UDS Hx of splenic hemorrhage -CT (05/04/17): Air and fluid appearing loculated adjacent to the spleen vs beneath this splenic capsule with continuing concern for fistulous communication to the descending colon. Adenopathy in the periportal and peripancreatic regions for which further eval is recommended. Advsie correlation for possibility of cirrhosis. -CT (04/23/17): Interval decrease in size of fluid air collection lateral to spleen since previous exam. Small left pleural effusion and trace right pleural effusion. Moderate cardiomegaly. Small ascites in abdomen/pelvis. Hx of Hematuria -Denies of this admission -UA (04/23/17): blood 3+, trace LE, bacteria rare, RBC 315 -Coumadin on hold secondary to hematuria and splenic hemorrhage hx Cocaine Use Disorder -Patient refusing to do UDS -UDS positive: cocaine on last admission -Patient reports last time he used cocaine was 5 days ago - PER DR. DAVIS HOLD ALL MEDS UNTIL PATIENT DISCLOSES WHAT HE IS TAKING WHEN NURSING STAFF IS NOT IN THE ROOM AND COMPLIES WITH UDS COPD - PER DR. DAVIS HOLD ALL MEDS UNTIL PATIENT DISCLOSES WHAT HE IS TAKING WHEN NURSING STAFF IS NOT IN THE ROOM AND COMPLIES WITH UDS On last admission patient was on: Duoneb 3ml INH q6h PRN Singulair 10 mg PO HS HTN - PER DR. DAVIS HOLD ALL MEDS UNTIL PATIENT DISCLOSES WHAT HE IS TAKING WHEN NURSING STAFF IS NOT IN THE ROOM AND COMPLIES WITH UDS On last admission patient was on: Lasix 40 mg IVPQ6 Cardizem 30mg po q6h HCTZ 50mg PO daily Aldactone 25mg PO daily CAD - PER DR. DAVIS HOLD ALL MEDS UNTIL PATIENT DISCLOSES WHAT HE IS TAKING WHEN NURSING STAFF IS NOT IN THE ROOM AND COMPLIES WITH UDS On last admission patient was on: Crestor 10mg PO HS Prophylactic Measures - PER DR. DAVIS HOLD ALL MEDS UNTIL PATIENT DISCLOSES WHAT HE IS TAKING WHEN NURSING STAFF IS NOT IN THE ROOM AND COMPLIES WITH UDS On last admission patient was on: Pepcid 20 mg PO daily VTE ppx c/i secondary to splenic hemorrhage and hematuria SCDs c/i secondary to possible PAD Nicoderm patch -Heart Healthy Diet Plan discussed with Dr. Terrence Mcgregor DO, PGY1
[2017-05-05 05:24] LABS: BASO # 0.2 K/uL (0.0-0.2); BASO % 1.2 % (0.0-2.0); EOS # 0.2 K/uL (0.0-0.7); HEMATOCRIT 39.7 % (35.0-51.0); LYMPH # 1.6 K/uL (1.0-4.3); LYMPH % 10.9 % (20.0-40.0); MEAN CELL VOLUME 81.9 fL (80.0-94.0); MEAN CORPUSCULAR HEMOGLOBIN 25.5 pg (27.0-31.0); MEAN CORPUSCULAR HGB CONC 31.2 g/dL (33.0-37.0); MEAN PLATELET VOLUME 8.1 fL (7.2-11.7); MONO % 6.7 % (0.0-10.0); RED CELL DISTRIBUTION WIDTH 19.1 % (11.5-14.5); WHITE BLOOD COUNT 14.7 K/uL (4.8-10.8)
[2017-05-05 06:23] LABS: CHLORIDE 99 mmol/L (98-107)
[2017-05-05 06:24] LABS: POTASSIUM 5.2 mmol/L (3.6-5.2); SODIUM 134 mmol/L (132-148)
[2017-05-05 06:26] LABS: ALB/GLOB RATIO 0.8 (1.0-2.1); ALKALINE PHOSPHATASE 60 U/L (38-126); AST/SGOT 52 U/L (17-59); BILIRUBIN,TOTAL 1.4 mg/dL (0.2-1.3); BLOOD UREA NITROGEN 24 mg/dL (9-20); CARBON DIOXIDE 24 mmol/L (22-30); CHOLESTEROL 120 mg/dL (0-199); GFR AFRICAN-AMERICAN > 60; GLUCOSE,RANDOM 128 mg/dL (75-110); TOTAL PROTEIN 8.7 g/dL (6.3-8.3)
[2017-05-05 06:27] LABS: ALT/SGPT 37 U/L (21-72); CALCIUM 8.5 mg/dl (8.6-10.4); MAGNESIUM 1.6 mg/dL (1.6-2.3); PHOSPHOROUS 3.6 mg/dL (2.5-4.5)
--- NOTE | 2017-05-05 10:42 | CP.PCM.PN ---
Subjective - Date & Time of Evaluation Date of Evaluation: 05/05/17 Time of Evaluation: 10:42 - Subjective Subjective: PGY-[address] Ocampo'se service Pt seen and examined at bedside with attending. Per nursing, pt has been refusing telemetry monitoring, being verbally abusive toward staff, and EMR states pt was taking medication from a backpack he has with him. Attending, Dr. Ocampo, reinforced that this behavior was unacceptable. Pt calmed down somewhat when told he was being tranferred to different floor. Pt is denying active chest pain and SOB, but admits some leg soreness when he walks. Awaiting venous dopplers for this am. He is tolerating diet and making urine without difficulty. UDS positive for cocaine use which he admits to taking "hours before coming to the hospital." Objective - Vital Signs/Intake and Output Vital Signs (last 24 hours): Temp Pulse Resp BP Pulse Ox 98.2 F 110 H 24 152/93 H 92 L 05/05/17 07:25 05/05/17 07:25 05/05/17 07:25 05/05/17 07:25 05/05/17 07:25 - Medications Medications: Current Medications Albuterol (Ventolin Hfa 90 Mcg/Actuation (8 G)) 2 puff IH BID JEIMY Alprazolam (Xanax) 1 mg PO Q6H JEIMY Carvedilol (Coreg) 12.5 mg PO BID JEIMY Digoxin (Lanoxin) 0.125 mg PO DAILY JEIMY Diltiazem HCl (Cardizem) 30 mg PO QID JEIMY Furosemide (Lasix) 40 mg IVP BID JEIMY Gabapentin (Neurontin) 300 mg PO TID JEIMY Hydrochlorothiazide (Microzide) 50 mg PO DAILY JEIMY Montelukast Sodium (Singulair) 10 mg PO HS JEIMY Rosuvastatin Calcium (Crestor) 10 mg PO HS JEIMY Spironolactone (Aldactone) 25 mg PO DAILY JEIMY - Labs Labs: 05/05/17 05:19 05/05/17 05:19 PT 14.8 SECONDS (9.7-12.2) H 05/04/17 20:38 INR 1.3 05/04/17 20:38 APTT 36 SECONDS (21-34) H 05/04/17 20:38 - Constitutional Appears: Non-toxic, Combative - Head Exam Head Exam: ATRAUMATIC, NORMOCEPHALIC - Eye Exam Eye Exam: EOMI. absent: Scleral icterus Pupil Exam: PERRL - ENT Exam ENT Exam: Mucous Membranes Moist - Neck Exam Additional comments: large body habitus makes checking for JVD impossible - Respiratory Exam Respiratory Exam: Decreased Breath Sounds, Prolonged Expiratory Phase, Wheezes. absent: Chest Wall Tenderness - Cardiovascular Exam Cardiovascular Exam: Tachycardia, Irregular Rhythm - GI/Abdominal Exam GI & Abdominal Exam: Soft, Tenderness (diffuse tenderness), Normal Bowel Sounds - Extremities Exam Extremities Exam: Pedal Edema Additional comments: +1 b/l pedal edema vericose veins b/l - Back Exam Back Exam: NORMAL INSPECTION - Neurological Exam Neurological Exam: Alert, Awake, Oriented x3 - Psychiatric Exam Psychiatric exam: Agitated, Anxious - Skin Additional comments: abrasions and ecchymosis cover legs and abdomen. Large cut on left forearm Assessment and Plan - Assessment and Plan (Free Text) Assessment: 46M with PMH of HTN, CAD, CHF, Afib, COPD, ARLENE, bipolar disorder, chronic back pain, herniated discs, presenting to [facility] for anxiety, chest pain, abdominal pain, and leg soreness Plan: Anxiety and depression Prozac 40mg po daily Xanax 1mg po Q6 Chest pain - R/O ACS Admit to tele, but pt refusing so transferred to med/surg JOSE negative x 2 EKG: Afib, no acute St/T wave changes ECHO (02/2017): LV systolic function severely reduced. LV mildly dilated. Severe global hypokinesis of LV. Negative for endocarditis. CT Chest (05/05/17): Air and fluid appearing loculated adjacent to the spleen vs beneath splenic capsule. Continuing concern for fistulous communication to descending colon. Adenopathy in periportal/peripancreatic regions, recommend further evaluation. Possibility of cirrhosis. (see full report) BB held due to cocaine use Restart home Enalapril 10mg PO Daily Oxygen 2 liters PRN CHF Admit to tele, but pt refusing so transferred to med/surg Bilateral LE edema BNP 8210 ECHO (02/2017): LV systolic function severely reduced. LV mildly dilated. Severe global hypokinesis of LV. Negative for endocarditis. CT Chest (05/05/17): Air and fluid appearing loculated adjacent to the spleen vs beneath splenic capsule. Continuing concern for fistulous communication to descending colon. Adenopathy in periportal/peripancreatic regions, recommend further evaluation. Possibility of cirrhosis. (see full report) Digoxin 0.125 mg PO daily Lasix 40 mg IVP BID HCTZ 50mg PO daily Aldactone 25mg PO daily I's & O's daily weight US LE b/l: negative Afib with RVR Pt refusing tele monitor so placed on med/surg Cardizem 30mg po q6H Digoxin 0.125 mg PO daily Abdominal pain Hx of splenic hemorrhage CT Chest (05/05/17): Air and fluid appearing loculated adjacent to the spleen vs beneath splenic capsule. Continuing concern for fistulous communication to descending colon. Adenopathy in periportal/peripancreatic regions, recommend further evaluation. Possibility of cirrhosis. (see full report) - on previous admission: CT (04/23/17): Interval decrease in size of fluid air collection lateral to spleen since previous exam. Small left pleural effusion and trace right pleural effusion. Moderate cardiomegaly. Small ascites in abdomen/pelvis. Cocaine Use Disorder UDS positive: cocaine - pt admits to previous usage "earlier yesterday" - hold BB COPD O2 2LNC Singulair 10 mg PO HS HTN Lasix 40 mg IV BID Cardizem 30mg po q6h restart home meds: HCTZ 50mg PO daily Aldactone 25mg PO daily Holding BB due to cocaine use CAD Crestor 10mg PO HS RALENE Pt refusing CPAP at night 2L O2 Prophylactic Measures Pepcid 20 mg PO daily VTE ppx c/i SCDs Heart Healthy Diet Nicoderm patch Plan discussed with Dr. Terrence Rodriguez, PGY-1
[2017-05-05] MEDS: Albuterol HFA 90 mcg/actuation (8 g) IH SCH ×2 (11:34→20:04)
--- NOTE | 2017-05-05 11:49 | CARD ---
APPROVED REPORT EKG Measurement Heart [id number] <Conclusion> Atrial fibrillation Pulmonary disease pattern Incomplete right bundle branch block Left anterior fascicular block Inferior infarct, age undetermined ST & T wave abnormality, consider lateral ischemia Abnormal ECG
[2017-05-05] MEDS: Oxycodone/Acetaminophen 5/325 mg Tab PO PRN ×2 (12:11→18:02)
--- NOTE | 2017-05-05 16:23 | VASCLAB ---
PROCEDURE: Lower Extremity Venous Duplex Exam. HISTORY: Pain legs b/l PRIORS: Last exam 12/07/2016 TECHNIQUE: Bilateral common femoral, femoral, popliteal and posterior tibial, peroneal and great saphenous veins were evaluated. Flow was assessed with color Doppler, compressibility, assessment of phasic flow and augmentation response. Report prepared by SERA Molina FINDINGS: RIGHT: 1. Common Femoral Vein: 1.1. Compressibility - Fully compressible: Thrombus - None : Flow - Phasic: Augmentation -Normal: Reflux - None. 2. Femoral Vein: 2.1. Compressibility - Fully compressible: Thrombus - None : Flow - Phasic: Augmentation -Normal: Reflux - None. 3. Popliteal Vein: 3.1. Compressibility - Fully compressible: Thrombus - None : Flow - Phasic: Augmentation -Normal: Reflux - None. 4. Posterior Tibial Vein: (distal view only) 4.1. Compressibility - Fully compressible: Thrombus - None: Flow - Phasic: Augmentation -Normal: Reflux - None. 5. Peroneal Vein: 5.1. Not imaged 6. Great Saphenous Vein: 6.1. Compressibility - Fully compressible: Thrombus - None: Flow - Phasic: Augmentation - Normal: Reflux - None. LEFT: 1. Common Femoral Vein: 1.1. Compressibility - Fully compressible: Thrombus - None: Flow - Phasic: Augmentation -Normal: Reflux - None. 2. Femoral Vein: 2.1. Compressibility - Fully compressible: Thrombus - None: Flow - Phasic: Augmentation -Normal: Reflux - None. 3. Popliteal Vein: 3.1. Compressibility - Fully compressible: Thrombus - None : Flow - Phasic: Augmentation -Normal: Reflux - None. 4. Posterior Tibial Vein: 4.1. Not imaged 5. Peroneal Vein: 5.1. Not imaged 6. Great Saphenous Vein: 6.1. Not imaged OTHER FINDINGS: Right: Peroneal and proximal calf posterior tibial veins were not imaged, due to swelling. Remaining veins in the right lower extremity are compressible. Left: Posterior tibial and peroneal veins were not imaged, due to swelling. Remaining veins in the left lower extremity are compressible. Unable to visualize the left great saphneous vein. IMPRESSION: Right: No evidence of deep or superficial vein thrombosis of the right lower extremity, for the imaged veins. Normal valve function noted of the right side. Left: No evidence of deep or superficial vein thrombosis of the left lower extremity, for the imaged veins. Normal valve function noted of the left side. Technically difficult exam, due to patient constant physical movement.
[2017-05-05] MEDS: Digoxin 125 mcg (0.125 mg) Tab PO SCH (18:01)
[2017-05-06] MEDS: Oxycodone/Acetaminophen 5/325 mg Tab PO PRN ×4 (00:20→20:30)
[2017-05-06 00:58] VITALS: RESP 20
[2017-05-06] MEDS: Albuterol HFA 90 mcg/actuation (8 g) IH SCH (11:28)
--- NOTE | 2017-05-06 16:33 | CP.PCM.PN ---
Subjective - Date & Time of Evaluation Date of Evaluation: 05/06/17 Time of Evaluation: 08:00 - Subjective Subjective: PGY-[address] Ocampo's service Pt seen and examined at bedside with attending. Pt denies chest pain or SOB at this time. He states he has occasional diffuse abdominal pain, that is not affected by food, which passes quickly. He rates the pain as 2-3/10. He denies any episodes of nausea or vomiting. Objective - Vital Signs/Intake and Output Vital Signs (last 24 hours): Temp Pulse Resp BP Pulse Ox 97.8 F 78 20 156/80 H 92 L 05/06/17 00:57 05/06/17 00:57 05/06/17 00:57 05/06/17 11:52 05/06/17 00:57 Intake and Output: 05/06/17 05/06/17 06:59 18:59 Intake Total 1500 Output Total 1200 Balance 300 - Medications Medications: Current Medications Albuterol (Ventolin Hfa 90 Mcg/Actuation (8 G)) 2 puff IH RBID [facility], [facility] Last Admin: 05/06/17 11:28 Dose: Not Given Alprazolam (Xanax) 1 mg PO Q6H PRN PRN Reason: Anxiety Last Admin: 05/06/17 12:56 Dose: 1 mg Digoxin (Lanoxin) 0.125 mg PO DAILY@1800 [facility] Last Admin: 05/05/17 18:01 Dose: 0.125 mg Diltiazem HCl (Cardizem) 30 mg PO 0000,0600,1200,1800 [facility] Last Admin: 05/06/17 11:52 Dose: 30 mg Enalapril Maleate (Vasotec) 10 mg PO Q24H [facility] Last Admin: 05/05/17 18:05 Dose: 10 mg Famotidine (Pepcid) 20 mg PO BID [facility] Last Admin: 05/06/17 11:54 Dose: 20 mg Fluoxetine HCl (Prozac) 40 mg PO DAILY [facility] Last Admin: 05/06/17 11:53 Dose: 40 mg Furosemide (Lasix) 40 mg IVP BID [facility] Last Admin: 05/06/17 11:52 Dose: 40 mg Gabapentin (Neurontin) 300 mg PO TID [facility] Last Admin: 05/06/17 13:23 Dose: 300 mg Hydrochlorothiazide (Hydrodiuril) 50 mg PO DAILY [facility] Last Admin: 05/06/17 11:53 Dose: 50 mg Montelukast Sodium (Singulair) 10 mg PO HS [facility] Last Admin: 05/05/17 22:17 Dose: 10 mg Nicotine (Nicoderm Cq) 1 patch TD DAILY [facility] Last Admin: 05/06/17 11:52 Dose: 1 patch Oxycodone/Acetaminophen (Percocet 5/325 Mg Tab) 1 tab PO Q6H PRN PRN Reason: Pain, moderate (4-7) Stop: 05/08/17 11:41 Last Admin: 05/06/17 12:56 Dose: 1 tab Rosuvastatin Calcium (Crestor) 10 mg PO [facility] Last Admin: 05/05/17 22:17 Dose: 10 mg Spironolactone (Aldactone) 25 mg PO DAILY [facility] Last Admin: 05/06/17 11:53 Dose: 25 mg - Labs Labs: 05/05/17 05:19 05/05/17 05:19 PT 14.8 SECONDS (9.7-12.2) H 05/04/17 20:38 INR 1.3 05/04/17 20:38 APTT 36 SECONDS (21-34) H 05/04/17 20:38 - Additional Findings Additional findings: - Constitutional Appears: Non-toxic, Combative - Head Exam Head Exam: ATRAUMATIC, NORMOCEPHALIC - Eye Exam Eye Exam: EOMI. absent: Scleral icterus Pupil Exam: PERRL - ENT Exam ENT Exam: Mucous Membranes Moist - Neck Exam Additional comments: large body habitus makes checking for JVD impossible - Respiratory Exam Respiratory Exam: Decreased Breath Sounds, Prolonged Expiratory Phase, Wheezes. absent: Chest Wall Tenderness - Cardiovascular Exam Cardiovascular Exam: Tachycardia, Irregular Rhythm - GI/Abdominal Exam GI & Abdominal Exam: Soft, Tenderness (diffuse tenderness), Normal Bowel Sounds - Extremities Exam Extremities Exam: Pedal Edema Additional comments: +1 b/l pedal edema vericose veins b/l - Back Exam Back Exam: NORMAL INSPECTION - Neurological Exam Neurological Exam: Alert, Awake, Oriented x3 - Psychiatric Exam Psychiatric exam: Agitated, Anxious - Skin Additional comments: abrasions and ecchymosis cover legs and abdomen. Large cut on left forearm Assessment and Plan - Assessment and Plan (Free Text) Assessment: 46M with PMH of HTN, CAD, CHF, Afib, COPD, ARLENE, bipolar disorder, chronic back pain, herniated discs, presenting to [facility] for anxiety, chest pain, abdominal pain, and leg soreness Plan: Anxiety and depression Prozac 40mg po daily Xanax 1mg po Q6 Chest pain - R/O ACS Admit to tele, but pt refusing so transferred to med/surg JOSE negative x 2 EKG: Afib, no acute St/T wave changes ECHO (02/2017): LV systolic function severely reduced. LV mildly dilated. Severe global hypokinesis of LV. Negative for endocarditis. CT Chest (05/05/17): Air and fluid appearing loculated adjacent to the spleen vs beneath splenic capsule. Continuing concern for fistulous communication to descending colon. Adenopathy in periportal/peripancreatic regions, recommend further evaluation. Possibility of cirrhosis. (see full report) - Per Dr. Ocampo, this is c/w previous CT finding BB held due to cocaine use Restart home Enalapril 10mg PO Daily Oxygen 2 liters PRN CHF Admit to tele, but pt refusing so transferred to med/surg Bilateral LE edema BNP 8210 ECHO (02/2017): LV systolic function severely reduced. LV mildly dilated. Severe global hypokinesis of LV. Negative for endocarditis. CT Chest (05/05/17): Air and fluid appearing loculated adjacent to the spleen vs beneath splenic capsule. Continuing concern for fistulous communication to descending colon. Adenopathy in periportal/peripancreatic regions, recommend further evaluation. Possibility of cirrhosis. (see full report) Digoxin 0.125 mg PO daily Lasix 40 mg IVP BID HCTZ 50mg PO daily Aldactone 25mg PO daily I's & O's daily weight US LE b/l: negative Afib with RVR Pt refusing tele monitor so placed on med/surg Cardizem 30mg po q6H Digoxin 0.125 mg PO daily Abdominal pain Hx of splenic hemorrhage CT Chest (05/05/17): Air and fluid appearing loculated adjacent to the spleen vs beneath splenic capsule. Continuing concern for fistulous communication to descending colon. Adenopathy in periportal/peripancreatic regions, recommend further evaluation. Possibility of cirrhosis. (see full report) - on previous admission: CT (04/23/17): Interval decrease in size of fluid air collection lateral to spleen since previous exam. Small left pleural effusion and trace right pleural effusion. Moderate cardiomegaly. Small ascites in abdomen/pelvis. Cocaine Use Disorder UDS positive: cocaine - pt admits to previous usage "earlier yesterday" - hold BB COPD O2 2LNC Ventolin Singulair 10 mg PO HS HTN Lasix 40 mg IV BID Cardizem 30mg po q6h restart home meds: HCTZ 50mg PO daily Aldactone 25mg PO daily Holding BB due to cocaine use CAD Crestor 10mg PO HS ARLENE Pt refusing CPAP at night 2L O2 Prophylactic Measures Pepcid 20 mg PO daily VTE ppx c/i SCDs Heart Healthy Diet Nicoderm patch Plan discussed with Dr. Terrence Rodriguez, PGY-1
[2017-05-06] MEDS: Digoxin 125 mcg (0.125 mg) Tab PO SCH (17:33)
[2017-05-06 17:34] VITALS: PULSE 58
[2017-05-07] MEDS: Oxycodone/Acetaminophen 5/325 mg Tab PO PRN ×3 (02:43→16:25)
--- NOTE | 2017-05-07 07:14 | CP.PCM.PN ---
Subjective - Date & Time of Evaluation Date of Evaluation: 05/07/17 Time of Evaluation: 07:11 - Subjective Subjective: PGY-[address] Ocampo's service Pt seen and examined at bedside with attending. Pt denies chest pain or SOB at this time. Pt tolerating diet well, admits urinating, and moving bowels without difficulty. Abdominal pain improved today, but asking for increased Percocet due to back pain which is chronic finding. He denies any episodes of nausea or vomiting. Objective - Vital Signs/Intake and Output Vital Signs (last 24 hours): Temp Pulse Resp BP Pulse Ox 98 F 94 H 20 136/96 H 93 L 05/07/17 00:00 05/07/17 06:04 05/07/17 00:00 05/07/17 06:04 05/07/17 00:00 Intake and Output: 05/07/17 05/07/17 06:59 18:59 Intake Total 1800 Balance 1800 - Medications Medications: Current Medications Albuterol (Ventolin Hfa 90 Mcg/Actuation (8 G)) 2 puff IH RBID [facility] Last Admin: 05/06/17 11:28 Dose: Not Given Alprazolam (Xanax) 1 mg PO Q6H PRN PRN Reason: Anxiety Last Admin: 05/07/17 02:46 Dose: 1 mg Digoxin (Lanoxin) 0.125 mg PO DAILY@1800 [facility] Last Admin: 05/06/17 17:33 Dose: 0.125 mg Diltiazem HCl (Cardizem) 30 mg PO 0000,0600,1200,1800 [facility] Last Admin: 05/07/17 05:59 Dose: 30 mg Enalapril Maleate (Vasotec) 10 mg PO Q24H [facility] Last Admin: 05/06/17 17:32 Dose: 10 mg Famotidine (Pepcid) 20 mg PO BID [facility] Last Admin: 05/06/17 17:32 Dose: 20 mg Fluoxetine HCl (Prozac) 40 mg PO DAILY [facility] Last Admin: 05/06/17 11:53 Dose: 40 mg Furosemide (Lasix) 40 mg IVP BID [facility] Last Admin: 05/06/17 17:33 Dose: Not Given Gabapentin (Neurontin) 300 mg PO TID [facility] Last Admin: 05/06/17 17:32 Dose: 300 mg Hydrochlorothiazide (Hydrodiuril) 50 mg PO DAILY [facility] Last Admin: 05/06/17 11:53 Dose: 50 mg Montelukast Sodium (Singulair) 10 mg PO HS [facility] Last Admin: 05/06/17 21:55 Dose: 10 mg Nicotine (Nicoderm Cq) 1 patch TD DAILY [facility] Last Admin: 05/06/17 11:52 Dose: 1 patch Oxycodone/Acetaminophen (Percocet 5/325 Mg Tab) 1 tab PO Q6H PRN PRN Reason: Pain, moderate (4-7) Stop: 05/08/17 11:41 Last Admin: 05/07/17 02:43 Dose: 1 tab Rosuvastatin Calcium (Crestor) 10 mg PO HS [facility] Last Admin: 05/06/17 21:55 Dose: 10 mg Spironolactone (Aldactone) 25 mg PO DAILY [facility] Last Admin: 05/06/17 11:53 Dose: 25 mg - Labs Labs: 05/05/17 05:19 05/05/17 05:19 PT 14.8 SECONDS (9.7-12.2) H 05/04/17 20:38 INR 1.3 05/04/17 20:38 APTT 36 SECONDS (21-34) H 05/04/17 20:38 - Additional Findings Additional findings: - Constitutional Appears: Non-toxic, Combative - Head Exam Head Exam: ATRAUMATIC, NORMOCEPHALIC - Eye Exam Eye Exam: EOMI. absent: Scleral icterus Pupil Exam: PERRL - ENT Exam ENT Exam: Mucous Membranes Moist - Neck Exam Additional comments: large body habitus makes checking for JVD impossible - Respiratory Exam Respiratory Exam: Decreased Breath Sounds, Prolonged Expiratory Phase, Wheezes. absent: Chest Wall Tenderness - Cardiovascular Exam Cardiovascular Exam: Tachycardia, Irregular Rhythm - GI/Abdominal Exam GI & Abdominal Exam: Soft, Tenderness (diffuse tenderness), Normal Bowel Sounds - Extremities Exam Extremities Exam: Pedal Edema Additional comments: +1 b/l pedal edema vericose veins b/l - Back Exam Back Exam: NORMAL INSPECTION - Neurological Exam Neurological Exam: Alert, Awake, Oriented x3 - Psychiatric Exam Psychiatric exam: Agitated, Anxious - Skin Additional comments: abrasions and ecchymosis cover legs and abdomen. Large cut on left forearm Assessment and Plan - Assessment and Plan (Free Text) Assessment: 46M with PMH of HTN, CAD, CHF, Afib, COPD, ARLENE, bipolar disorder, chronic back pain, herniated discs, presenting to [facility] for anxiety, chest pain, abdominal pain, and leg soreness Plan: Anxiety and depression Prozac 40mg po daily Xanax 1mg po Q6 Chest pain - R/O ACS Admit to tele, but pt refusing so transferred to med/surg JOSE negative x 2 EKG: Afib, no acute St/T wave changes ECHO (02/2017): LV systolic function severely reduced. LV mildly dilated. Severe global hypokinesis of LV. Negative for endocarditis. CT Chest (05/05/17): Air and fluid appearing loculated adjacent to the spleen vs beneath splenic capsule. Continuing concern for fistulous communication to descending colon. Adenopathy in periportal/peripancreatic regions, recommend further evaluation. Possibility of cirrhosis. (see full report) - Per Dr. Ocampo, this is c/w previous CT finding BB held due to cocaine use Restart home Enalapril 10mg PO Daily Oxygen 2 liters PRN CHF Admit to tele, but pt refusing so transferred to med/surg Bilateral LE edema BNP 8210 ECHO (02/2017): LV systolic function severely reduced. LV mildly dilated. Severe global hypokinesis of LV. Negative for endocarditis. CT Chest (05/05/17): Air and fluid appearing loculated adjacent to the spleen vs beneath splenic capsule. Continuing concern for fistulous communication to descending colon. Adenopathy in periportal/peripancreatic regions, recommend further evaluation. Possibility of cirrhosis. (see full report) Digoxin 0.125 mg PO daily Lasix 40 mg PO BID HCTZ 50mg PO daily Aldactone 25mg PO daily I's & O's daily weight US LE b/l: negative Afib with RVR Pt refusing tele monitor so placed on med/surg Cardizem 30mg po q6H Digoxin 0.125 mg PO daily Abdominal pain Hx of splenic hemorrhage CT Chest (05/05/17): Air and fluid appearing loculated adjacent to the spleen vs beneath splenic capsule. Continuing concern for fistulous communication to descending colon. Adenopathy in periportal/peripancreatic regions, recommend further evaluation. Possibility of cirrhosis. (see full report) - on previous admission: CT (04/23/17): Interval decrease in size of fluid air collection lateral to spleen since previous exam. Small left pleural effusion and trace right pleural effusion. Moderate cardiomegaly. Small ascites in abdomen/pelvis. Cocaine Use Disorder UDS positive: cocaine - pt admits to previous usage "earlier yesterday" - hold BB COPD O2 2LNC Ventolin Singulair 10 mg PO HS HTN Lasix 40 mg IV BID Cardizem 30mg po q6h restart home meds: HCTZ 50mg PO daily Aldactone 25mg PO daily Holding BB due to cocaine use CAD Crestor 10mg PO HS ARLENE Pt refusing CPAP at night 2L O2 Prophylactic Measures Pepcid 20 mg PO daily VTE ppx c/i SCDs Heart Healthy Diet Nicoderm patch Plan discussed with Dr. Terrence Rodriguez, PGY-1
[2017-05-07 08:16] LABS: BASO # 0.1 K/uL (0.0-0.2); BASO % 0.8 % (0.0-2.0); EOS # 0.3 K/uL (0.0-0.7); EOS % 3.2 % (0.0-4.0); HEMATOCRIT 40.5 % (35.0-51.0); LYMPH # 2.1 K/uL (1.0-4.3); LYMPH % 19.5 % (20.0-40.0); MEAN CELL VOLUME 81.8 fL (80.0-94.0); MEAN CORPUSCULAR HEMOGLOBIN 25.8 pg (27.0-31.0); MEAN CORPUSCULAR HGB CONC 31.6 g/dL (33.0-37.0); MEAN PLATELET VOLUME 8.4 fL (7.2-11.7); MONO # 1.1 K/uL (0.0-0.8); MONO % 10.1 % (0.0-10.0); RED CELL DISTRIBUTION WIDTH 19.7 % (11.5-14.5); WHITE BLOOD COUNT 10.7 K/uL (4.8-10.8)
[2017-05-07 08:51] VITALS: BP 130/90; PULSE 85; TEMP 97.5; O2SAT 94
[2017-05-07 08:51] LABS: CHLORIDE 97 mmol/L (98-107)
[2017-05-07 08:52] LABS: POTASSIUM 4.1 mmol/L (3.6-5.2); SODIUM 133 mmol/L (132-148)
[2017-05-07 08:55] LABS: ALB/GLOB RATIO 0.8 (1.0-2.1); ALKALINE PHOSPHATASE 85 U/L (38-126); ALT/SGPT 27 U/L (21-72); AST/SGOT 34 U/L (17-59); BILIRUBIN,TOTAL 0.9 mg/dL (0.2-1.3); BLOOD UREA NITROGEN 21 mg/dL (9-20); CARBON DIOXIDE 25 mmol/L (22-30); GFR AFRICAN-AMERICAN > 60; GLUCOSE,RANDOM 93 mg/dL (75-110); PHOSPHOROUS 3.6 mg/dL (2.5-4.5); TOTAL PROTEIN 8.6 g/dL (6.3-8.3)
[2017-05-07 08:56] LABS: CALCIUM 8.3 mg/dl (8.6-10.4); MAGNESIUM 1.8 mg/dL (1.6-2.3)
[2017-05-07] MEDS: Albuterol HFA 90 mcg/actuation (8 g) IH SCH (09:18)
--- NOTE | 2017-05-07 17:24 | CP.PCM.DIS ---
Provider - Provider Date of Admission: 05/05/17 00:30 Attending physician: Roque Ocampo Jr, MD Primary care physician: Dr. Ocampo Time Spent in preparation of Discharge (in minutes): 45 Diagnosis - Discharge Diagnosis (1) Anxiety Status: Chronic Hospital Course - Lab Results Lab Results: Most Recent Lab Values WBC 10.7 K/uL (4.8-10.8) 05/07/17 08:09 RBC 4.95 Mil/uL (4.40-5.90) 05/07/17 08:09 Hgb 12.8 g/dL (12.0-18.0) 05/07/17 08:09 Hct 40.5 % (35.0-51.0) 05/07/17 08:09 MCV 81.8 fL (80.0-94.0) 05/07/17 08:09 MCH 25.8 pg (27.0-31.0) L 05/07/17 08:09 MCHC 31.6 g/dL (33.0-37.0) L 05/07/17 08:09 RDW 19.7 % (11.5-14.5) H 05/07/17 08:09 Plt Count 273 K/uL (130-400) 05/07/17 08:09 MPV 8.4 fL (7.2-11.7) 05/07/17 08:09 Neut % (Auto) 66.4 % (50.0-75.0) 05/07/17 08:09 Lymph % (Auto) 19.5 % (20.0-40.0) L 05/07/17 08:09 Sherman % (Auto) 10.1 % (0.0-10.0) H 05/07/17 08:09 Eos % (Auto) 3.2 % (0.0-4.0) 05/07/17 08:09 Baso % (Auto) 0.8 % (0.0-2.0) 05/07/17 08:09 Neut # 7.1 K/uL (1.8-7.0) H 05/07/17 08:09 Lymph # 2.1 K/uL (1.0-4.3) 05/07/17 08:09 Sherman # 1.1 K/uL (0.0-0.8) H 05/07/17 08:09 Eos # 0.3 K/uL (0.0-0.7) 05/07/17 08:09 Baso # 0.1 K/uL (0.0-0.2) 05/07/17 08:09 PT 14.8 SECONDS (9.7-12.2) H 05/04/17 20:38 INR 1.3 05/04/17 20:38 APTT 36 SECONDS (21-34) H 05/04/17 20:38 pO2 55 mm/Hg (30-55) 05/04/17 20:42 VBG pH 7.42 (7.32-7.43) 05/04/17 20:42 VBG pCO2 40 mmHg (40-60) 05/04/17 20:42 VBG HCO3 25.7 mmol/L 05/04/17 20:42 VBG Total CO2 27.1 mmol/L (22-28) 05/04/17 20:42 VBG O2 Sat (Calc) 92.5 % (40-65) H 05/04/17 20:42 VBG Base Excess 1.3 mmol/L (0.0-2.0) 05/04/17 20:42 VBG Potassium 3.7 mmol/L (3.6-5.2) 05/04/17 20:42 Sodium 138.0 mmol/l (132-148) 05/04/17 20:42 Chloride 103.0 mmol/L (98-107) 05/04/17 20:42 Glucose 107 mg/dl (75-110) 05/04/17 20:42 Lactate 1.3 mmol/L (0.7-2.1) 05/04/17 20:42 Sodium 133 mmol/L (132-148) 05/07/17 08:09 Potassium 4.1 mmol/L (3.6-5.2) 05/07/17 08:09 Chloride 97 mmol/L (98-107) L 05/07/17 08:09 Carbon Dioxide 25 mmol/L (22-30) 05/07/17 08:09 Anion Gap 15 (10-20) 05/07/17 08:09 BUN 21 mg/dL (9-20) H 05/07/17 08:09 Creatinine 0.8 MG/DL (0.8-1.5) 05/07/17 08:09 Est GFR ( Amer) > 60 05/07/17 08:09 Est GFR (Non-Af Amer) > 60 05/07/17 08:09 POC Glucose (mg/dL) 139 mg/dL (65-110) H 05/07/17 11:06 Random Glucose 93 mg/dL (75-110) 05/07/17 08:09 Hemoglobin A1c 6.2 % (4.2-6.5) 05/05/17 06:06 Calcium 8.3 mg/dl (8.6-10.4) L 05/07/17 08:09 Phosphorus 3.6 mg/dL (2.5-4.5) 05/07/17 08:09 Magnesium 1.8 mg/dL (1.6-2.3) 05/07/17 08:09 Total Bilirubin 0.9 mg/dL (0.2-1.3) 05/07/17 08:09 AST 34 U/L (17-59) 05/07/17 08:09 ALT 27 U/L (21-72) 05/07/17 08:09 Alkaline Phosphatase 85 U/L (38-126) 05/07/17 08:09 Total Creatine Kinase 121 U/L (55-170) 05/05/17 05:19 CK-MB (Mass) 3.61 ng/mL (0.0-3.38) H 05/05/17 05:19 Troponin I, Quant 0.0650 ng/mL (0.00-0.120) 05/05/17 05:19 NT-Pro-B Natriuret Pep 8210 pg/mL (0-450) H 05/04/17 20:38 Total Protein 8.6 g/dL (6.3-8.3) H 05/07/17 08:09 Albumin 3.7 g/dL (3.5-5.0) 05/07/17 08:09 Globulin 4.9 gm/dL (2.2-3.9) H 05/07/17 08:09 Albumin/Globulin Ratio 0.8 (1.0-2.1) L 05/07/17 08:09 Triglycerides 66 mg/dL (0-149) 05/05/17 05:19 Cholesterol 120 mg/dL (0-199) 05/05/17 05:19 LDL Cholesterol Direct 68 mg/dL (0-129) 05/05/17 05:19 HDL Cholesterol 30 mg/dL (30-70) 05/05/17 05:19 Venous Blood Potassium 3.7 mmol/L (3.6-5.2) 05/04/17 20:42 Urine Opiates Screen Negative (NEGATIVE) 05/05/17 06:36 Urine Methadone Screen Negative (NEGATIVE) 05/05/17 06:36 Ur Barbiturates Screen Negative (NEGATIVE) 05/05/17 06:36 Ur Phencyclidine Scrn Negative (NEGATIVE) 05/05/17 06:36 Ur Amphetamines Screen Negative (NEGATIVE) 05/05/17 06:36 U Benzodiazepines Scrn Positive (NEGATIVE) 05/05/17 06:36 U Oth Cocaine Metabols Positive (NEGATIVE) 05/05/17 06:36 U Cannabinoids Screen Negative (NEGATIVE) 05/05/17 06:36 - Hospital Course Hospital Course: On admission: 46M with PMH of HTN, CAD, CHF, Afib, COPD, ARLENE, bipolar disorder, chronic back pain, herniated discs, presenting to [facility] for anxiety and because he ran out of his medications. Patient reports he felt very anxious this AM and had to come in and was requesting 1mg xanax. He stated ativan does not help his anxiety. He stated he finished his medications over the last 2 weeks and has not taken any xanax over the last 2 days. He also stated his last use of cocaine was 5 days ago. Although patient reported he has run out of medications , nursing staff noted he was taking medications from his backpack and refusing to disclose what they were. Patient admitted to diaphoresis, weakness, headache , dizizness, lightheadedness, blurry vision, palpitations, SOB, cough, abdominal pain, nausea, 24 episodes of nonbloody nonmelanotic diarrhea the day before admission, urinary frequency, leg pain and swelling b/l, rash, bruising. He denied changes in hearing, sore throat, dysphagia, acute chest pain, vomiting , hematemesis, constipation, hematochezia, dysuria, back pain, bleeding, recent travel, recent sickness, sick contacts, change in appetite. Patient did report that his lower extremity swelling and redness had improved but his ankles and feet were more painful on this encounter. When asked if he had any trauma to the area he was unclear. Please note patient is a poor historian and changed his story over the three separate times I went to go see him. Please note: Patient is noncompliant and aggressive toward nursing staff. When he is left alone, nurses have noted he has been taking medications that are in his backpack that he refuses to disclose the names of. Patient has only shown staff an unlabeled bottle which he states is ciprofloxacin. Nursing has seen him take medications from other bottles which he adamantly refuses to disclose. Patient also refuses his TELE monitor and O2 Nasal canula and is refusing to comply with his urine drug screen. Nursing staff have documented this and written a VERGE Hospital Course: Pt admitted on 05/05/17 for combination of chest pain, abdominal pain, and anxiety. Pt was admitted to tele but he refused the monitor. Troponins negative x 2, EKG showed rate controlled afib. BNP elevated so pt started on IV Lasix. Pt had recent ECHO in February 2017, which showed greatly reduced LV systolic dysfunction and EF, so it was not repeated this admission. Pt was restarted on home anxiety and pain meds and he felt calmer. CT findings were consistent, per Dr Ocampo, as prior admission for splenic hematoma. Pt reported decreased abdominal pain, no episodes of n/v. He denied chest pain, palpitations, SOB over course and was deemed stable for discharge on 05/07. Discharge Exam - Head Exam Head Exam: ATRAUMATIC, NORMOCEPHALIC - Additional Findings Additional findings: - Constitutional Appears: Non-toxic, NAD - Head Exam Head Exam: ATRAUMATIC, NORMOCEPHALIC - Eye Exam Eye Exam: EOMI. absent: Scleral icterus Pupil Exam: PERRL - ENT Exam ENT Exam: Mucous Membranes Moist - Neck Exam Additional comments: large body habitus - Respiratory Exam Respiratory Exam: absent: Chest Wall Tenderness - Improved since admission, decreased breath sounds - Cardiovascular Exam Cardiovascular Exam: Irregular Rhythm, Rate controlled, S1, S2 - GI/Abdominal Exam GI & Abdominal Exam: Soft, Tenderness (diffuse tenderness), Normal Bowel Sounds - Extremities Exam Extremities Exam: Pedal Edema Additional comments: pedal edema improved since admission vericose veins b/l - Back Exam Back Exam: NORMAL INSPECTION - Neurological Exam Neurological Exam: Alert, Awake, Oriented x3 - Psychiatric Exam Psychiatric exam: Agitated, Anxious - Skin Additional comments: abrasions and ecchymosis cover legs and abdomen. Large cut on left forearm Discharge Plan - Follow Up Plan Condition: GOOD Disposition: HOME/ ROUTINE Instructions: Heart Failure (DC), Atrial Fibrillation (DC), Acute Abdominal Pain (DC), Acute Abdominal Pain (GEN) Additional Instructions: Patient stable for discharge per Dr. Ocampo Patient may resume his home medications. He has been prescribed the following medications: NONE Patient is make an appointment with their PMD, Dr. Ocampo, within one week of discharge for follow-up. He is advised to return to the emergency department if symptoms return or worsen. These instructions were given to the pt in Hebrew by Dr. Ocampo. Patient expressed verbal understanding of these instructions. Prescribed medications at time of discharge: None Referrals: Roque Ocampo Jr., MD [Medical Doctor] -
== END 2017-05-07 18:45 | disposition home or self-care (01) | DRG 880 ==
LOC: C.ER 19:54 → C.9E 05-05 00:30 → C.9I 05-05 07:48 → C.5T 05-05 13:42
PROVIDERS: ADMIT Internal Medicine; ATTEND Internal Medicine
DX: F41.8 Other specified anxiety disorders (principal); I11.0 Hypertensive heart disease with heart failure; I50.9 Heart failure, unspecified; I48.91 Unspecified atrial fibrillation; J44.9 Chronic obstructive pulmonary disease, unspecified; F31.9 Bipolar disorder, unspecified; F14.90 Cocaine use, unspecified, uncomplicated; I25.10 Atherosclerotic heart disease of native coronary artery without angina pectoris; G47.33 Obstructive sleep apnea (adult) (pediatric); G89.29 Other chronic pain; E78.00 Pure hypercholesterolemia, unspecified; Z87.891 Personal history of nicotine dependence; Z90.49 Acquired absence of other specified parts of digestive tract; Z91.19 Patient's noncompliance with other medical treatment and regimen; Z95.5 Presence of coronary angioplasty implant and graft

== ENCOUNTER 2017-05-13 00:34 | Observation (INO) | payer MEDICARE, MEDICAID ==
[2017-05-13 00:34] VITALS: BMI 54.5
[2017-05-13 04:39] LABS: BASO # 0.1 K/uL (0.0-0.2); BASO % 1.1 % (0.0-2.0); EOS # 0.2 K/uL (0.0-0.7); EOS % 1.9 % (0.0-4.0); HEMATOCRIT 41.1 % (35.0-51.0); LYMPH % 20.3 % (20.0-40.0); MEAN CELL VOLUME 81.3 fL (80.0-94.0); MEAN CORPUSCULAR HEMOGLOBIN 25.5 pg (27.0-31.0); MEAN CORPUSCULAR HGB CONC 31.3 g/dL (33.0-37.0); MEAN PLATELET VOLUME 8.2 fL (7.2-11.7); MONO # 1.2 K/uL (0.0-0.8); MONO % 11.6 % (0.0-10.0); NRBC % 0.1 % (0.0-2.0); RED CELL DISTRIBUTION WIDTH 19.3 % (11.5-14.5)
[2017-05-13 04:44] LABS: CHLORIDE 101 mmol/L (98-107); SODIUM 138 mmol/L (132-148)
[2017-05-13 04:45] LABS: POTASSIUM 4.1 mmol/L (3.6-5.2)
[2017-05-13 04:47] LABS: ALB/GLOB RATIO 0.8 (1.0-2.1); ALKALINE PHOSPHATASE 79 U/L (38-126); ALT/SGPT 32 U/L (21-72); AST/SGOT 37 U/L (17-59); BILIRUBIN,TOTAL 0.8 mg/dL (0.2-1.3); BLOOD UREA NITROGEN 22 mg/dL (9-20); CARBON DIOXIDE 22 mmol/L (22-30); GFR AFRICAN-AMERICAN > 60; TOTAL PROTEIN 9.4 g/dL (6.3-8.3)
[2017-05-13 04:48] LABS: CALCIUM 8.6 mg/dl (8.6-10.4); GLUCOSE,RANDOM 129 mg/dL (75-110)
--- NOTE | 2017-05-13 05:05 | C.PDOC ---
History Of Present Illness A 46 y/o male with a chronic Hx of CHF and AFIB, comes in c/o feeling anxious with SOB since last night. Pt is compliant with all his medications. Pt denies chest pain, palpitations, fever, chills, diaphoresis, dizziness, light headedness, or any other complaints. Time Seen by Provider: 05/13/17 03:03 Chief Complaint (Nursing): Shortness Of Breath History Per: Patient History/Exam Limitations: no limitations Onset/Duration Of Symptoms: Days Current Symptoms Are (Timing): Still Present Suicide/Self Injury Attempted (Context): None Modifying Factor(s): None Severity: Mild Associated Symptoms: Anxiety Involuntary Hold By: None Recent travel outside of the [place]: No Additional History Per: Patient Past Medical History Reviewed: Historical Data, Nursing Documentation, Vital Signs Vital Signs: Last Vital Signs Temp 98 F 05/13/17 00:40 Pulse 84 05/13/17 03:35 Resp 18 05/13/17 03:35 BP 161/94 H 05/13/17 00:40 Pulse Ox 98 05/13/17 05:12 - Medical History PMH: Anxiety, Asthma, Atrial Fibrillation, Back Problems, Bipolar Disorder, CAD , Cardia Arrhythmia, CHF, COPD, Depression, Emphysema, HTN, Hypercholesterolemia , Peripheral Edema, Sleep Apnea, Chronic Pain (Lower Back Pain) Denies: Chronic Kidney Disease Surgical History: Appendectomy (2008), Coronary Stent (2008 - 2012 4 stents) - [facility] Procedures CORONAR ARTERIOGR-2 CATH (07/06/13) DRAINAGE OF SPLEEN, PERCUTANEOUS APPROACH (03/05/17) INJECT/INFUSE NEC (02/22/14) LEFT HEART CARDIAC CATH (07/06/13) LT HEART ANGIOCARDIOGRAM (07/06/13) NEBULIZER THERAPY (03/28/14) NON-INVASIVE MECHANICAL VENTILATION (03/26/15) TRANSFUSE NONAUT FROZEN PLASMA IN PERIPH VEIN, PERC (02/21/17) Family History: States: CAD, Diabetes - Social History Hx Tobacco Use: Yes Hx Alcohol Use: Yes (social) Hx Substance Use: Yes (coccaine) - Immunization History Hx Tetanus Toxoid Vaccination: Yes Hx Influenza Vaccination: Yes Hx Pneumococcal Vaccination: Yes (08/2014) Review Of Systems Constitutional: Negative for: Fever, Chills, Sweats Cardiovascular: Negative for: Chest Pain, Palpitations, Light Headedness Respiratory: Positive for: Shortness of Breath Neurological: Negative for: Dizziness Psych: Positive for: Anxiety Physical Exam - Physical Exam Appears: Non-toxic, No Acute Distress, Other (Morbidly obese) Skin: Warm, Dry Head: Atraumatic, Normacephalic Eye(s): bilateral: Normal Inspection, PERRL Neck: Normal, No Other (JVD) Chest: No Tenderness Cardiovascular: Rhythm Regular (Tachycardic), No Murmur Respiratory: Normal Breath Sounds, No Accessory Muscle Use, Rales (minimal), No Wheezing Gastrointestinal/Abdominal: No Tenderness, Other (Abdomen obese) Extremity: Pedal Edema (Bilateral lower extremities with enlarged varicose veins ), Capillary Refill (<2secs) Pulses: Left Dorsalis Pedis: Normal, Right Dorsalis Pedis: Normal Neurological/Psych: Oriented x3, Normal Speech, Normal Cognition Gait: Steady ED Course And Treatment - Laboratory Results Result Diagrams: 05/13/17 04:32 05/13/17 04:32 ECG Rhythm: Atrial Fibrillation (114, with PVCs) O2 Sat by Pulse Oximetry: 98 (RA) Pulse Ox Interpretation: Normal - Radiology CXR Interpretation: Yes: Other (pulmonary congestion) Progress Note: Impression: 46 y/o male c/o feeling anxious and SOB since last night, now c/o palpitations. Plans: EKG, Blood labs, CXR, Xanax, Lasix, reassess. Pt is improving , now urinating. Pt is in no acute resp distress, BNP 5,000+but still reports SOB and palpitations. Will admit for CHF - Physician Consult Information Time Consulting Physician Contacted: 05:37 Physician Contacted: Roque Ocampo Jr. (will admit) Disposition Counseled Patient/Family Regarding: Diagnosis - Disposition Disposition: HOSPITALIZED Disposition Time: 05:46 Condition: FAIR - Clinical Impression Clinical Impression: Congestive heart failure (CHF) - Scribe Statement The provider has reviewed the documentation as recorded by the Scribe Be alas All medical record entries made by the Scribe were at my direction and personally dictated by me. I have reviewed the chart and agree that the record accurately reflects my personal performance of the history, physical exam, medical decision making, and the department course for this patient. I have also personally directed, reviewed, and agree with the discharge instructions and disposition.
--- NOTE | 2017-05-13 08:32 | CP.PCM.HP ---
History of Present Illness - History of Present Illness History of Present Illness: PGY-1 H&P for attending, Dr. Ocampo HPI: 46M with PMH of HTN, CAD, CHF, Afib on coumadin, COPD, ARLENE, bipolar disorder, chronic back pain, urinary retention, and herniated discs, presenting to [facility] for anxiety and shortness of breath since early this morning. Pt reports that the anxiety began last night and he could not sleep, and that in turn led to him "breathing fast" and becoming SOB. He denies new stressor, or being aware of instigator to cause increase in anxiety. Pt has history of CHF and admits increased leg swelling, and abdominal distention, over the last few days. He admits his leg swelling has increased over the last 2 days, and he has been unable to lay flat, requiring two pillows. Pt reports taking all his medication as scheduled. Pt admits "recent" cocaine use, but is evasive on giving time table. It should be documented that pt has been belligerent with nursing staff on this admission. He has called them inappropriate names, and made them feel uncomfortable taking care of him. Pt states he was being disrespected by nursing staff. For safety of nursing staff, a 'security watch' order was placed. A physical security manager will be posted outside at all times throughout his admission. Pt was warned that any further outburst will not be tolerated and will lead to his immediate discharge from the hospital. He verbalized understanding of these instructions. PMH: HTN, CAD, CHF, Afib, COPD, ARLENE, Herniated discs L-spine, Bipolar/Depression , Asthma Meds: Diltiazem, ASA, Carvedilol, digoxin, enalapril, percocet, cyclobenzaprine , HCTZ, k-dur, Lasix, Albuterol, Prozac, Simvastatin, Montelukast, Tizanidine, Xanax, Gabapentin. Allergy: Apixaban, clopidogrel, enoxaparin, Morphine PSH: Appendectomy (2008), Coronary stents x4 ([id number]) Hosp: multiple admissions recently for SOB, splenic hematoma and bacteremia FH: Denies Social: Denies tobacco use- wears a nicotine patch. Social alcohol use; Admits to Cocaine use Present on Admission - Present on Admission Any Indicators Present on Admission: No Review of Systems - Constitutional Constitutional: absent: Chills, Fever - EENT Eyes: absent: Change in Vision Ears: absent: Decreased Hearing - Cardiovascular Cardiovascular: Dyspnea, Leg Edema. absent: Chest Pain, Chest Pain at Rest, Chest Pain with Activity, Radiating Pain - Respiratory Respiratory: absent: Cough, Dyspnea on Exertion - Gastrointestinal Gastrointestinal: absent: Abdominal Pain, Nausea, Vomiting - Genitourinary Genitourinary: absent: Difficulty Urinating, Dysuria - Musculoskeletal Musculoskeletal: absent: Back Pain, Numbness, Tingling - Integumentary Integumentary: absent: Dry Skin, Wounds - Neurological Neurological: absent: Numbness, Tingling, Weakness - Psychiatric Psychiatric: Anxiety Past Patient History - Infectious Disease Hx of Infectious Diseases: None - Tetanus Immunizations Tetanus Immunization: Up to Date - Past Medical History & Family History Past Medical History?: Yes - Past Social History Smoking Status: Former Smoker - CARDIAC Hx Atrial Fibrillation: Yes Hx Cardia Arrhythmia: Yes Hx Congestive Heart Failure: Yes Hx Hypercholesterolemia: Yes Hx Hypertension: Yes Hx Peripheral Edema: Yes - PULMONARY Hx Asthma: Yes Hx Chronic Obstructive Pulmonary Disease (COPD): Yes Hx Emphysema: Yes Hx Sleep Apnea: Yes - NEUROLOGICAL Hx Neurological Disorder: No - HEENT Hx HEENT Problems: No - RENAL Hx Chronic Kidney Disease: No - ENDOCRINE/METABOLIC Hx Endocrine Disorders: No - HEMATOLOGICAL/ONCOLOGICAL Hx Blood Disorders: Yes Other/Comment: MRSA Hx - INTEGUMENTARY Hx Dermatological Problems: No - MUSCULOSKELETAL/RHEUMATOLOGICAL Hx Musculoskeletal Disorders: Yes - GASTROINTESTINAL Hx Gastrointestinal Disorders: Yes Other/Comment: Splenic Hematoma - GENITOURINARY/GYNECOLOGICAL Hx Genitourinary Disorders: No - PSYCHIATRIC Hx Anxiety: Yes Hx Bipolar Disorder: Yes Hx Depression: Yes Hx Substance Use: Yes (coccaine) - SURGICAL HISTORY Hx Appendectomy: Yes (2008) Hx Coronary Stent: Yes (2008 - 2012 4 stents) - ANESTHESIA Hx Anesthesia: Yes Hx Anesthesia Reactions: No Hx Malignant Hyperthermia: No Meds Allergies/Adverse Reactions: Allergies Allergy/AdvReac Type Severity Reaction Status Date / Time apixaban [From Eliquis] Allergy RASH Verified 05/13/17 00:44 clopidogrel bisulfate Allergy RASH Verified 05/13/17 00:44 [From Plavix] enoxaparin sodium Allergy RASH Verified 05/13/17 00:44 [From Lovenox] morphine Allergy RASH Verified 05/13/17 00:44 Physical Exam - Constitutional Appears: Non-toxic, No Acute Distress, Chronically Ill - Head Exam Head Exam: ATRAUMATIC, NORMOCEPHALIC - Eye Exam Eye Exam: EOMI. absent: Scleral icterus Pupil Exam: PERRL - ENT Exam ENT Exam: Mucous Membranes Moist - Neck Exam Additional comments: large body habitus makes JVD difficult to discern - Respiratory Exam Respiratory Exam: Clear to Auscultation Bilateral, NORMAL BREATHING PATTERN. absent: Accessory Muscle Use, Rhonchi, Wheezes - Cardiovascular Exam Cardiovascular Exam: Tachycardia, Irregular Rhythm (afib), +S1, +S2. absent: Systolic Murmur - GI/Abdominal Exam GI & Abdominal Exam: Normal Bowel Sounds, Soft. absent: Rigid, Tenderness ( obese) - Extremities Exam Extremities exam: Positive for: pedal edema (1+ pitting), tenderness (chronic venous changes, vericose veins noted), pedal pulses present. Negative for: normal inspection - Back Exam Back exam: absent: CVA tenderness (L), CVA tenderness (R) - Neurological Exam Neurological exam: Alert, CN II-XII Intact, Oriented x3 - Psychiatric Exam Psychiatric exam: Normal Affect, Normal Mood - Skin Skin Exam: Normal Color, Warm (chronic changes noted in legs bilaterally, ) Results - Vital Signs Recent Vital Signs: Last Vital Signs Temp 98.6 F 05/13/17 06:39 Pulse 119 H 05/13/17 07:32 Resp 22 05/13/17 07:32 BP 149/98 H 05/13/17 07:32 Pulse Ox 98 05/13/17 07:32 - Labs Result Diagrams: 05/13/17 04:32 05/13/17 04:32 Assessment & Plan - Assessment and Plan (Free Text) Plan: CHF exacerbation Admit to med/surg Bilateral LE edema BNP 5210 ECHO (02/2017): LV systolic function severely reduced. LV mildly dilated. Severe global hypokinesis of LV. Negative for endocarditis. CXR (05/13/17): mild pulmonary congestion (wetread, f/u official report) Lasix 40 mg IV BID @ 10AM and 2pm HCTZ 50mg PO daily Aldactone 25mg PO daily HOLD BB UNTIL UDS RETURNS I's & O's daily weight Anxiety and depression Prozac 40mg po daily Xanax 1mg po Q6H PRN anxiety Afib with RVR EKG in ED: Afib with RVR, Rate 120 on admission Cardizem 30mg po q6H Digoxin 0.125 mg PO daily Cocaine Use Disorder UDS pending - pt admits "recent usage" - hold BB COPD O2 2LNC Duonebs Q6H PRN Singulair 10 mg PO HS HTN Lasix 40 mg IV BID Cardizem 30mg po q6h restart home meds: HCTZ 50mg PO daily Aldactone 25mg PO daily Holding BB due to cocaine use CAD Crestor 10mg PO HS ARLENE Pt denies using BIPAP at night 2L O2 PRN Prophylactic Measures Pepcid 20 mg PO daily VTE ppx - pt refused Heparin SCDs Regular Diet Nicoderm patch Plan discussed with Dr. Terrence Rodriguez, PGY-1
[2017-05-13] MEDS ORDERED: Albuterol-Ipratrop 3 mg / 0.5 (3 ml) UD INH PRN (08:51)
--- NOTE | 2017-05-13 09:58 | RAD ---
HISTORY: SOB COMPARISON: Comparison made with prior chest radiograph 04/23/2017 TECHNIQUE: Chest PA and lateral FINDINGS: LUNGS: Mild central pulmonary vascular congestive changes with what appears represent early bilateral lower lobe alveolar-type infiltrates. Questionable small left-sided effusion. PLEURA: No significant pleural effusion identified. No pneumothorax apparent. CARDIOVASCULAR: Cardiomegaly. OSSEOUS STRUCTURES: No significant abnormalities. VISUALIZED UPPER ABDOMEN: Normal. OTHER FINDINGS: None. IMPRESSION: Mild central pulmonary vascular congestive changes with what appears represent early bilateral lower lobe alveolar-type infiltrates. Questionable small left-sided effusion.
[2017-05-13] MEDS ORDERED: Digoxin 125 mcg (0.125 mg) Tab PO SCH ×2 (10:00→18:00)
[2017-05-13] MEDS ORDERED: DiphenhydrAMINE 50 mg/ml Inj IVP PRN (11:17)
[2017-05-13] MEDS: Oxycodone/Acetaminophen 5/325 mg Tab PO PRN ×2 (13:21→19:24)
[2017-05-13 14:54] VITALS: RESP 20
[2017-05-13 19:19] VITALS: PULSE 100
[2017-05-14] MEDS: Oxycodone/Acetaminophen 5/325 mg Tab PO PRN (05:26)
[2017-05-14 06:55] LABS: CHLORIDE 99 mmol/L (98-107); POTASSIUM 4.2 mmol/L (3.6-5.2); SODIUM 136 mmol/L (132-148)
[2017-05-14 06:57] LABS: ALB/GLOB RATIO 0.8 (1.0-2.1); ALKALINE PHOSPHATASE 81 U/L (38-126); ALT/SGPT 22 U/L (21-72); AST/SGOT 36 U/L (17-59); BILIRUBIN,TOTAL 0.8 mg/dL (0.2-1.3); CARBON DIOXIDE 26 mmol/L (22-30); GFR AFRICAN-AMERICAN > 60; TOTAL PROTEIN 8.6 g/dL (6.3-8.3)
[2017-05-14 06:58] LABS: BLOOD UREA NITROGEN 20 mg/dL (9-20); CALCIUM 8.9 mg/dl (8.6-10.4); GLUCOSE,RANDOM 85 mg/dL (75-110); MAGNESIUM 1.9 mg/dL (1.6-2.3); PHOSPHOROUS 4.6 mg/dL (2.5-4.5)
[2017-05-14 08:00] LABS: BASO # 0.1 K/uL (0.0-0.2); BASO % 1.3 % (0.0-2.0); EOS # 0.3 K/uL (0.0-0.7); EOS % 2.8 % (0.0-4.0); HEMATOCRIT 41.5 % (35.0-51.0); LYMPH # 2.3 K/uL (1.0-4.3); LYMPH % 23.4 % (20.0-40.0); MEAN CELL VOLUME 82.5 fL (80.0-94.0); MEAN CORPUSCULAR HEMOGLOBIN 26.1 pg (27.0-31.0); MEAN CORPUSCULAR HGB CONC 31.6 g/dL (33.0-37.0); MEAN PLATELET VOLUME 8.1 fL (7.2-11.7); MONO # 1.4 K/uL (0.0-0.8); MONO % 14.1 % (0.0-10.0); NRBC % 0.1 % (0.0-2.0); RED CELL DISTRIBUTION WIDTH 19.5 % (11.5-14.5); WHITE BLOOD COUNT 9.7 K/uL (4.8-10.8)
[2017-05-14 08:55] VITALS: TEMP 98.2; O2SAT 97
[2017-05-14 09:15] VITALS: BP 147/103; PULSE 82
--- NOTE | 2017-05-14 09:36 | CP.PCM.DIS ---
Provider - Provider Date of Admission: 05/13/17 05:48 Attending physician: Roque Ocampo Jr, MD Primary care physician: DR. Ocampo Time Spent in preparation of Discharge (in minutes): 45 Hospital Course - Lab Results Lab Results: Most Recent Lab Values WBC 9.7 K/uL (4.8-10.8) 05/14/17 06:29 RBC 5.03 Mil/uL (4.40-5.90) 05/14/17 06:29 Hgb 13.1 g/dL (12.0-18.0) 05/14/17 06:29 Hct 41.5 % (35.0-51.0) 05/14/17 06:29 MCV 82.5 fL (80.0-94.0) 05/14/17 06:29 MCH 26.1 pg (27.0-31.0) L 05/14/17 06:29 MCHC 31.6 g/dL (33.0-37.0) L 05/14/17 06:29 RDW 19.5 % (11.5-14.5) H 05/14/17 06:29 Plt Count 348 K/uL (130-400) 05/14/17 06:29 MPV 8.1 fL (7.2-11.7) 05/14/17 06:29 Neut % (Auto) 58.4 % (50.0-75.0) 05/14/17 06:29 Lymph % (Auto) 23.4 % (20.0-40.0) 05/14/17 06:29 [place] % (Auto) 14.1 % (0.0-10.0) H 05/14/17 06:29 Eos % (Auto) 2.8 % (0.0-4.0) 05/14/17 06:29 Baso % (Auto) 1.3 % (0.0-2.0) 05/14/17 06:29 Neut # 5.6 K/uL (1.8-7.0) 05/14/17 06:29 Lymph # 2.3 K/uL (1.0-4.3) 05/14/17 06:29 [place] # 1.4 K/uL (0.0-0.8) H 05/14/17 06:29 Eos # 0.3 K/uL (0.0-0.7) 05/14/17 06:29 Baso # 0.1 K/uL (0.0-0.2) 05/14/17 06:29 Sodium 136 mmol/L (132-148) 05/14/17 06:29 Potassium 4.2 mmol/L (3.6-5.2) 05/14/17 06:29 Chloride 99 mmol/L (98-107) 05/14/17 06:29 Carbon Dioxide 26 mmol/L (22-30) 05/14/17 06:29 Anion Gap 16 (10-20) 05/14/17 06:29 BUN 20 mg/dL (9-20) 05/14/17 06:29 Creatinine 0.9 MG/DL (0.8-1.5) 05/14/17 06:29 Est GFR ( Amer) > 60 05/14/17 06:29 Est GFR (Non-Af Amer) > 60 05/14/17 06:29 Random Glucose 85 mg/dL (75-110) 05/14/17 06:29 Calcium 8.9 mg/dl (8.6-10.4) 05/14/17 06:29 Phosphorus 4.6 mg/dL (2.5-4.5) H 05/14/17 06:29 Magnesium 1.9 mg/dL (1.6-2.3) 05/14/17 06:29 Total Bilirubin 0.8 mg/dL (0.2-1.3) 05/14/17 06:29 AST 36 U/L (17-59) 05/14/17 06:29 ALT 22 U/L (21-72) 05/14/17 06:29 Alkaline Phosphatase 81 U/L (38-126) 05/14/17 06:29 Troponin I 0.0380 ng/mL (0.00-0.120) 05/13/17 04:32 NT-Pro-B Natriuret Pep 5720 pg/mL (0-450) H 05/13/17 04:32 Total Protein 8.6 g/dL (6.3-8.3) H 05/14/17 06:29 Albumin 3.9 g/dL (3.5-5.0) 05/14/17 06:29 Globulin 4.8 gm/dL (2.2-3.9) H 05/14/17 06:29 Albumin/Globulin Ratio 0.8 (1.0-2.1) L 05/14/17 06:29 Urine Opiates Screen Negative (NEGATIVE) 05/13/17 10:48 Urine Methadone Screen Negative (NEGATIVE) 05/13/17 10:48 Ur Barbiturates Screen Negative (NEGATIVE) 05/13/17 10:48 Ur Phencyclidine Scrn Negative (NEGATIVE) 05/13/17 10:48 Ur Amphetamines Screen Negative (NEGATIVE) 05/13/17 10:48 U Benzodiazepines Scrn Negative (NEGATIVE) 05/13/17 10:48 U Oth Cocaine Metabols Negative (NEGATIVE) 05/13/17 10:48 U Cannabinoids Screen Negative (NEGATIVE) 05/13/17 10:48 - Hospital Course Hospital Course: On admission: 46M with PMH of HTN, CAD, CHF, Afib on coumadin, COPD, ARLENE, bipolar disorder, chronic back pain, urinary retention, and herniated discs, presenting to [facility] for anxiety and shortness of breath since early this morning. Pt reports that the anxiety began last night and he could not sleep, and that in turn led to him "breathing fast" and becoming SOB. He denies new stressor, or being aware of instigator to cause increase in anxiety. Pt has history of CHF and admits increased leg swelling, and abdominal distention, over the last few days. He admits his leg swelling has increased over the last 2 days, and he has been unable to lay flat, requiring two pillows. Pt reports taking all his medication as scheduled. Pt admits "recent" cocaine use, but is evasive on giving time table. It should be documented that pt has been belligerent with nursing staff on this admission. He has called them inappropriate names, and made them feel uncomfortable taking care of him. Pt states he was being disrespected by nursing staff. For safety of nursing staff, a 'security watch' order was placed. A security systems integrator will be posted outside at all times throughout his admission. Pt was warned that any further outburst will not be tolerated and will lead to his immediate discharge from the hospital. He verbalized understanding of these instructions. Hospital course: Pt admitted on 05/13/17 for CHF exacerbation and anxiety. BNP on admission was > 5000. Pt restarted on home meds for pressure and rate control of his Afib. Pt refused tele admit, so order was placed for med/surg. Pt started on IV lasix. Swelling in legs improved over course. Pt AMA on 05/14. document in chart, because he had "appointment with Dr. Carlisle." Pt stable at time of discharge. It was explained to pt, with nursing witnesses, that he was leaving against medical advice, and there were risks with this decision. Pt verbalized understanding of these risk, but still chose to leave. Refill of his medications were offered, but pt stated "Dr. Ocampo already filled all my meds two weeks ago." Discharge Exam - Head Exam Head Exam: ATRAUMATIC, NORMOCEPHALIC - Eye Exam Eye Exam: EOMI, Normal appearance Pupil Exam: PERRL Additional comments: morbidly obese - ENT Exam ENT Exam: Mucous Membranes Moist - Neck Exam Additional comments: large body habitus noted, difficult to appreciate JVD - Respiratory Exam Respiratory Exam: Clear to PA & Lateral, UNREMARKABLE. absent: Rhonchi, Wheezes , Respiratory Distress - Cardiovascular Exam Cardiovascular Exam: REGULAR RHYTHM, +S1, +S2 - GI/Abdominal Exam GI & Abdominal Exam: Normal Bowel Sounds, Soft. absent: Tenderness - Back Exam Back exam: NORMAL INSPECTION. absent: CVA tenderness (L), CVA tenderness (R) - Neurological Exam Neurological exam: Alert, Oriented x3 - Psychiatric Exam Psychiatric exam: Normal Affect, Normal Mood - Skin Skin Exam: Dry, Normal Color, Warm Discharge Plan - Follow Up Plan Condition: FAIR Disposition: AGAINST MEDICAL ADVICE
--- NOTE | 2017-05-14 18:15 | PCM.HF ---
Heart Failure Core Measure - Heart Failure Ejection Fraction: Less Than 40 % SHONDA Inhibitor Prescribed: Yes Beta-Yonis Prescribed: Carvedilol Angiotensin II Receptor Yonis Prescribed: No Contraindication/Reason for not providing: shonda AnticoagulationTherapy for Atrial Fibrillation/Atrialflutter: No Contraindication/Reason for not providing: no afib Aldosterone Antagonist Prescribed: Yes Hydralazine Nitrate Prescribed: Yes Implantable Cardioverter Defibrillator Therapy: No Cardiac Resynchronization Therapy Prescribed: No - Follow up Will be discharged to: Home (ama) Follow Up Date (must be within 7 days from discharge): 05/15/17 Follow Up Time: 09:00
--- NOTE | 2017-05-14 23:19 | CARD ---
APPROVED REPORT EKG Measurement Heart [id number] <Conclusion> Atrial fibrillation with rapid ventricular response with premature ventricular or aberrantly conducted complexes Pulmonary disease pattern Left anterior fascicular block Inferior-posterior infarct, age undetermined ST & T wave abnormality, consider lateral ischemia Abnormal ECG
[2017-05-16] MEDS ORDERED: Pneumococcal 23-Valent Vaccine IM ONE (10:00)
== END 2017-05-14 10:09 | disposition left against medical advice (07) ==
LOC: C.ER 00:34 → C.9E 05:48 → INTOOBSV 05:48 → C.6T 10:41
PROVIDERS: ADMIT Internal Medicine; ATTEND Internal Medicine
DX: F41.9 Anxiety disorder, unspecified (principal); F31.9 Bipolar disorder, unspecified; G47.33 Obstructive sleep apnea (adult) (pediatric); E78.00 Pure hypercholesterolemia, unspecified; I11.0 Hypertensive heart disease with heart failure; I50.9 Heart failure, unspecified; J44.9 Chronic obstructive pulmonary disease, unspecified; I48.91 Unspecified atrial fibrillation; I25.10 Atherosclerotic heart disease of native coronary artery without angina pectoris; Z87.891 Personal history of nicotine dependence; Z68.39 Body mass index [BMI] 39.0-39.9, adult
CPT/HCPCS: 36415; 71020; 80053; 83735; 83880; 84100; 84484; 85025; 93005; 94640; 96374; 99285; G0378; G0480; J1200; J1940

== ENCOUNTER 2017-05-19 07:38 | Emergency (ER) | payer MEDICARE, MEDICAID ==
[2017-05-19 07:38] VITALS: PULSE 100; BMI 54.5
--- NOTE | 2017-05-19 08:19 | C.PDOC ---
History Of Present Illness 46-year-old male, PMHx includes Anxiety, Asthma, Atrial Fibrillation, Back Problems, Bipolar Disorder, CAD, Cardia Arrhythmia, CHF, COPD, Depression, Emphysema, Hypertension, Hypercholesterolemia, Peripheral Edema, Sleep Apnea, Chronic Pain, presents to the emergency department with complaints of abdominal pain. Patient states he has been experiencing left-upper quadrant abdominal pain x2 days. Pain is rated 10/10, non-radiating and intermittent in nature. Associated symptoms include anxiety. Patient states he was unable to sleep last night. Denies any chest pain, shortness of breath, fevers, chills, nausea/ vomiting, or any other associated symptoms. States he is concerned because he has a Hx of internal bleeding through spleen. No other complaints at this time. Of note, patient has a Hx of frequent visits to the emergency department. he has been seen at [facility] 11x and admitted 8x. Patient is known to be disruptive on floor, and has been found to be doubling up on his medication while hospitalized; He has been the cause of several interventions by security. PMD Roque Ocampo MD. Time Seen by Provider: 05/19/17 07:53 Chief Complaint (Nursing): Abdominal Pain History Per: Patient History/Exam Limitations: no limitations Onset/Duration Of Symptoms: Days Current Symptoms Are (Timing): Still Present Severity: Moderate Location Of Pain/Discomfort: LUQ Radiation Of Pain To:: None Associated Symptoms: Other (Anxiety) Past Medical History Reviewed: Historical Data, Nursing Documentation, Vital Signs Vital Signs: Last Vital Signs Temp 97.5 F L 05/19/17 09:35 Pulse 96 H 05/19/17 09:35 Resp 24 05/19/17 09:35 BP 142/103 H 05/19/17 09:35 Pulse Ox 98 05/19/17 12:27 - Medical History PMH: Anxiety, Asthma, Atrial Fibrillation, Back Problems, Bipolar Disorder, CAD , Cardia Arrhythmia, CHF, COPD, Depression, Emphysema, HTN, Hypercholesterolemia , Peripheral Edema, Sleep Apnea, Chronic Pain (Lower Back Pain) Surgical History: Appendectomy (2008), Coronary Stent (2008 - 2012 4 stents) - [facility] Procedures CORONAR ARTERIOGR-2 CATH (07/06/13) DRAINAGE OF SPLEEN, PERCUTANEOUS APPROACH (03/05/17) INJECT/INFUSE NEC (02/22/14) LEFT HEART CARDIAC CATH (07/06/13) LT HEART ANGIOCARDIOGRAM (07/06/13) NEBULIZER THERAPY (03/28/14) NON-INVASIVE MECHANICAL VENTILATION (03/26/15) TRANSFUSE NONAUT FROZEN PLASMA IN PERIPH VEIN, PERC (02/21/17) Family History: States: CAD, Diabetes - Social History Hx Tobacco Use: Yes Hx Alcohol Use: No (social) Hx Substance Use: No (coccaine) - Immunization History Hx Tetanus Toxoid Vaccination: Yes Hx Influenza Vaccination: Yes Hx Pneumococcal Vaccination: Yes (08/2014) Review Of Systems Except As Marked, All Systems Reviewed And Found Negative. Constitutional: Negative for: Fever, Chills Cardiovascular: Negative for: Chest Pain, Palpitations, Edema Respiratory: Negative for: Shortness of Breath Gastrointestinal: Positive for: Abdominal Pain (LUQ). Negative for: Nausea, Vomiting Musculoskeletal: Negative for: Back Pain Neurological: Negative for: Weakness, Numbness Psych: Positive for: Anxiety Physical Exam - Physical Exam Appears: Non-toxic, No Acute Distress, Agitated (easily) Skin: Warm, Dry, No Rash, Other (Scabs, diffuse.) Eye(s): bilateral: Normal Inspection, PERRL Nose: Normal Oral Mucosa: Moist Lips: Normal Appearing Neck: Normal ROM Cardiovascular: Rhythm Irregular, No Murmur Respiratory: No Accessory Muscle Use, Other (Diminished breath sounds B/L) Gastrointestinal/Abdominal: Soft, Tenderness (Mild, LUQ), Other (Obese) Extremity: Normal ROM Neurological/Psych: Oriented x3, Normal Speech, Other (No focal deficit.) ED Course And Treatment - Laboratory Results Result Diagrams: 05/19/17 08:31 05/19/17 08:31 O2 Sat by Pulse Oximetry: 98 (on Room Air) - CT Scan/US CT ABD/PEL Other Rad Studies (CT/US): Read By Radiologist, Radiology Report Reviewed CT/US Interpretation: Accession No. : [id number]. Patient Name / ID : NANY CLANCY / [id number]. Exam Date : 05/19/2017 11:25:36 ( Approved ). Study Comment : Sex / Age : M / 46Y. Creator : Abdulkadir Goel MD. Dictator : Abdulkadir Goel MD. Inventory Checker : [employer] Marker : Abdulkadir Goel MD. Approver2 : Report Date : 05/19/2017 11:52:10. My Comment : . PROCEDURE: CT Abdomen and Pelvis with contrast. HISTORY: abdominal pain. COMPARISON: 05/04/2017. TECHNIQUE: Contrast dose: 100 cc of visipaque. Radiation dose: Total exam DLP = 1220 mGy-cm. This CT exam was performed using one or more of the following dose reduction techniques: Automated exposure control, adjustment of the mA and/or kV according to patient size, and/ or use of iterative reconstruction technique. FINDINGS: LOWER THORAX: Unremarkable. LIVER: Unremarkable. No gross lesion or ductal dilatation. GALLBLADDER AND BILE DUCTS: Unremarkable. PANCREAS: Unremarkable. No gross lesion or ductal dilatation. SPLEEN: There is re-demonstration of fluid and air pocket along the lateral aspect of the splenic capsule with slight deformity of the spleen. There is adjacent infiltration in the left upper quadrant mesenteric fat in the vicinity of a diverticulum of the descending colon. There is also associated pleural thickening and minimal fluid along the left lung base. There is associated diverticulitis along the descending colon. ADRENALS: Unremarkable. No mass. KIDNEYS AND URETERS: Unremarkable. No hydronephrosis. No solid mass. VASCULATURE: Unremarkable. No aortic aneurysm. BOWEL: Unremarkable. No obstruction. No gross mural thickening. APPENDIX: Normal appendix. PERITONEUM: Unremarkable. No free fluid. No free air. LYMPH NODES: Unremarkable. No enlarged lymph nodes. BLADDER: Unremarkable. REPRODUCTIVE: Unremarkable. BONES: No acute fracture. OTHER FINDINGS: None. IMPRESSION: There is re-demonstration of fluid and air pocket along the lateral aspect of the splenic capsule with slight deformity of the spleen. There is adjacent infiltration in the left upper quadrant mesenteric fat in the vicinity of a diverticulum of the descending colon. There is also associated pleural thickening and minimal fluid along the left lung base. There is associated diverticulitis along the descending colon. Overall the findings are minimally improved compared the prior examination. Medical Decision Making Medical Decision Making: Impression: 46y/o M comes in w/ LUQ abdominal pain x2 days. Prior Visits Notes and records from previous visits were reviewed. Patient seen in ED x11, and admitted x8. Pt had chest/abd CT on 05/04/17 that showed: Air and fluid appearing loculated adjacent to the spleen versus beneath this splenic capsule, with continuing concern for fistulous communication to the descending colon. Plan: * EKG * CT Abd/Pel * BNP, CMP, UDS, Trop I * CBC * Chest X-Ray * Lasix, Xanax * Urinalysis * Reassess and Disposition EKG Rate 100bpm Rhythm Atrial Fibrillation Interpet Left anterior Fascicular block. No acute ST/T wave changes Progress: Patients labs reviewed. negative Trop and BNP >6000. CT reviewed, it is consistent with prior imaging; Case discussed w/ Dr Ocampo, patient will be discharged for outpatient f/u in office. All questions answered. Disposition Discussed With Dr.: Roque Ocampo Jr. Counseled Patient/Family Regarding: Studies Performed, Diagnosis, Need For Followup - Disposition Disposition: HOME/ ROUTINE Disposition Time: 11:58 Condition: GUARDED Additional Instructions: Please follow up with Dr. Ocampo Instructions: Abdominal Pain (ED), Anxiety (ED) Forms: General Discharge Instructions - POA Present On Arrival: None - Clinical Impression Clinical Impression: CHF (congestive heart failure), Anxiety, Abdominal pain - Scribe Statement The provider has reviewed the documentation as recorded by the Scribe (Raghav Flaherty) All medical record entries made by the Scribe were at my direction and personally dictated by me. I have reviewed the chart and agree that the record accurately reflects my personal performance of the history, physical exam, medical decision making, and the department course for this patient. I have also personally directed, reviewed, and agree with the discharge instructions and disposition.
[2017-05-19 08:35] LABS: BASO # 0.1 K/uL (0.0-0.2); BASO % 1.1 % (0.0-2.0); EOS # 0.3 K/uL (0.0-0.7); EOS % 2.3 % (0.0-4.0); HEMATOCRIT 42.4 % (35.0-51.0); LYMPH # 2.1 K/uL (1.0-4.3); LYMPH % 17.8 % (20.0-40.0); MEAN CELL VOLUME 81.4 fL (80.0-94.0); MEAN CORPUSCULAR HEMOGLOBIN 25.5 pg (27.0-31.0); MEAN CORPUSCULAR HGB CONC 31.3 g/dL (33.0-37.0); MEAN PLATELET VOLUME 7.9 fL (7.2-11.7); MONO # 1.3 K/uL (0.0-0.8); RED CELL DISTRIBUTION WIDTH 19.5 % (11.5-14.5); WHITE BLOOD COUNT 11.7 K/uL (4.8-10.8)
[2017-05-19 08:45] LABS: RBC URINE 2 /hpf (0-3); URINE BILIRUBIN NEGATIVE (NEGATIVE); URINE COLOR Straw (YELLOW); URINE GLUCOSE (UA) NORMAL (Normal); URINE KETONE NEGATIVE (NEGATIVE); URINE LEUKOCYTE ESTERASE NEG Leu/uL (Negative); URINE PROTEIN NEGATIVE (NEGATIVE); URINE UROBILINOGEN NORMAL mg/dL (0.2-1.0); WBC URINE < 1 /hpf (0-5)
[2017-05-19 08:48] LABS: URINE BLOOD TRACE (NEGATIVE)
[2017-05-19 08:51] LABS: CHLORIDE 96 mmol/L (98-107); SODIUM 136 mmol/L (132-148)
[2017-05-19 08:52] LABS: POTASSIUM 4.2 mmol/L (3.6-5.2)
[2017-05-19 08:54] LABS: ALB/GLOB RATIO 0.9 (1.0-2.1); ALKALINE PHOSPHATASE 72 U/L (38-126); ALT/SGPT 21 U/L (21-72); AST/SGOT 39 U/L (17-59); BLOOD UREA NITROGEN 19 mg/dL (9-20); CARBON DIOXIDE 24 mmol/L (22-30); GFR AFRICAN-AMERICAN > 60; GLUCOSE,RANDOM 94 mg/dL (75-110); TOTAL PROTEIN 9.6 g/dL (6.3-8.3)
[2017-05-19 09:41] VITALS: BP 142/103; PULSE 96; RESP 24; TEMP 97.5
[2017-05-19] MEDS ORDERED: Iodixanol 320 mg/ml 150 ml Bottle IV ONE (10:44)
--- NOTE | 2017-05-19 11:52 | RAD ---
HISTORY: chest pain COMPARISON: No prior. TECHNIQUE: Chest PA and lateral FINDINGS: LUNGS: Again identified are prominent diffuse increased interstitial lung markings suggestive for edema and or infiltrate. Venous congestion. Right midlung atelectasis. PLEURA: Trace left pleural effusion. CARDIOVASCULAR: Cardiomegaly. OSSEOUS STRUCTURES: Degenerative changes in the spine and shoulders. VISUALIZED UPPER ABDOMEN: Normal. OTHER FINDINGS: None. IMPRESSION: Again identified are prominent diffuse increased interstitial lung markings suggestive for edema and or infiltrate. Venous congestion. Right midlung atelectasis. Cardiomegaly.
--- NOTE | 2017-05-19 11:53 | CT ---
PROCEDURE: CT Abdomen and Pelvis with contrast HISTORY: abdominal pain COMPARISON: 05/04/2017. TECHNIQUE: Contrast dose: 100 cc of visipaque Radiation dose: Total exam DLP = 1220 mGy-cm. This CT exam was performed using one or more of the following dose reduction techniques: Automated exposure control, adjustment of the mA and/or kV according to patient size, and/or use of iterative reconstruction technique. FINDINGS: LOWER THORAX: Unremarkable. LIVER: Unremarkable. No gross lesion or ductal dilatation. GALLBLADDER AND BILE DUCTS: Unremarkable. PANCREAS: Unremarkable. No gross lesion or ductal dilatation. SPLEEN: There is re-demonstration of fluid and air pocket along the lateral aspect of the splenic capsule with slight deformity of the spleen. There is adjacent infiltration in the left upper quadrant mesenteric fat in the vicinity of a diverticulum of the descending colon. There is also associated pleural thickening and minimal fluid along the left lung base. There is associated diverticulitis along the descending colon. ADRENALS: Unremarkable. No mass. KIDNEYS AND URETERS: Unremarkable. No hydronephrosis. No solid mass. VASCULATURE: Unremarkable. No aortic aneurysm. BOWEL: Unremarkable. No obstruction. No gross mural thickening. APPENDIX: Normal appendix. PERITONEUM: Unremarkable. No free fluid. No free air. LYMPH NODES: Unremarkable. No enlarged lymph nodes. BLADDER: Unremarkable. REPRODUCTIVE: Unremarkable. BONES: No acute fracture. OTHER FINDINGS: None. IMPRESSION: There is re-demonstration of fluid and air pocket along the lateral aspect of the splenic capsule with slight deformity of the spleen. There is adjacent infiltration in the left upper quadrant mesenteric fat in the vicinity of a diverticulum of the descending colon. There is also associated pleural thickening and minimal fluid along the left lung base. There is associated diverticulitis along the descending colon. Overall the findings are minimally improved compared the prior examination.
[2017-05-19 11:58] VITALS: O2SAT 98
== END 2017-05-19 12:22 | disposition home or self-care (01) ==
LOC: C.ER 07:38
DX: I50.9 Heart failure, unspecified (principal); F41.9 Anxiety disorder, unspecified; R10.9 Unspecified abdominal pain; I48.91 Unspecified atrial fibrillation; I10 Essential (primary) hypertension; E78.00 Pure hypercholesterolemia, unspecified; I25.10 Atherosclerotic heart disease of native coronary artery without angina pectoris; G47.30 Sleep apnea, unspecified
CPT/HCPCS: 71020; 74177; 80053; 81001; 83880; 84484; 85025; 96374; 99284; G0480; J1940; Q9965

== ENCOUNTER 2017-06-04 21:49 | Inpatient (IN) | payer MEDICARE, MEDICAID ==
[2017-06-04 21:49] VITALS: BMI 54.5
--- NOTE | 2017-06-04 22:20 | C.PDOC ---
History Of Present Illness 46 yo male, hx of afib, htn, chf, ?splenic infarct, presents with cp/abd pain/ sob worsening since this am. called pmd, advised to increase lasix. no fevers, no n/v/d, no urinary changes. Time Seen by Provider: 06/04/17 22:09 Chief Complaint (Nursing): Shortness Of Breath Past Medical History Reviewed: Historical Data Vital Signs: Last Vital Signs Temp 97.7 F 06/05/17 20:01 Pulse 102 H 06/05/17 20:01 Resp 20 06/05/17 15:46 BP 153/81 H 06/05/17 20:01 Pulse Ox 92 L 06/05/17 16:57 - Medical History PMH: Anxiety, Asthma, Atrial Fibrillation, Back Problems, Bipolar Disorder, CAD , Cardia Arrhythmia, CHF, COPD, Depression, Emphysema, HTN, Hypercholesterolemia , Peripheral Edema, Sleep Apnea, Chronic Pain (Lower Back Pain) Denies: Chronic Kidney Disease Surgical History: Appendectomy (2008), Coronary Stent (2008 - 2012 4 stents) - [facility] Procedures CORONAR ARTERIOGR-2 CATH (07/06/13) DRAINAGE OF SPLEEN, PERCUTANEOUS APPROACH (03/05/17) INJECT/INFUSE NEC (02/22/14) LEFT HEART CARDIAC CATH (07/06/13) LT HEART ANGIOCARDIOGRAM (07/06/13) NEBULIZER THERAPY (03/28/14) NON-INVASIVE MECHANICAL VENTILATION (03/26/15) TRANSFUSE NONAUT FROZEN PLASMA IN PERIPH VEIN, PERC (02/21/17) Family History: States: Unknown Family Hx, CAD, Diabetes - Social History Hx Tobacco Use: Yes Hx Alcohol Use: No (social) Hx Substance Use: No (coccaine) - Immunization History Hx Tetanus Toxoid Vaccination: Yes Hx Influenza Vaccination: Yes Hx Pneumococcal Vaccination: Yes (08/2014) Review Of Systems Cardiovascular: Positive for: Chest Pain Respiratory: Positive for: Shortness of Breath Gastrointestinal: Positive for: Abdominal Pain Physical Exam - Physical Exam Appears: Well, No Acute Distress Skin: Normal Color, Warm, Dry Eye(s): bilateral: Normal Inspection, PERRL, EOMI Nose: Normal Throat: Normal Neck: Normal Cardiovascular: Rhythm Regular Respiratory: Rales ((+)b/l bases) Gastrointestinal/Abdominal: Normal Exam, Soft, Tenderness ((+)diffuse), No Guarding, No Rebound Back: Normal Inspection Extremity: Normal ROM, Pedal Edema ((+)4+) ED Course And Treatment - Laboratory Results Result Diagrams: 06/04/17 22:15 06/04/17 22:48 O2 Sat by Pulse Oximetry: 92 Medical Decision Making Medical Decision Making: ekg afib [address] t wave changes, no interval changes r/o chf, pna. pt also with abdominal pain. will obtain ct 100: pt reassesed: emmanuelle doessean. cxr shows pulm vasc congestion. ct pending. discusesd wt dr beltran and medical van driver. ct will be followed on tele. dr beltran accepts. Disposition - Disposition Disposition: HOSPITALIZED Disposition Time: 01:00 Condition: FAIR - Clinical Impression Clinical Impression: CHF (congestive heart failure), Abdominal pain
[2017-06-04 22:50] LABS: BASO # 0.1 K/uL (0.0-0.2); BASO % 0.7 % (0.0-2.0); EOS # 0.1 K/uL (0.0-0.7); EOS % 1.2 % (0.0-4.0); HEMOGLOBIN 12.8 g/dL (12.0-18.0); LYMPH # 1.1 K/uL (1.0-4.3); LYMPH % 10.3 % (20.0-40.0); MEAN CELL VOLUME 81.6 fL (80.0-94.0); MEAN CORPUSCULAR HEMOGLOBIN 25.3 pg (27.0-31.0); MEAN PLATELET VOLUME 7.8 fL (7.2-11.7); MONO # 1.1 K/uL (0.0-0.8); MONO % 9.9 % (0.0-10.0); NEUT # 8.6 K/uL (1.8-7.0); NEUT % 77.9 % (50.0-75.0); RBC 5.07 Mil/uL (4.40-5.90); RED CELL DISTRIBUTION WIDTH 19.8 % (11.5-14.5)
[2017-06-04 23:00] LABS: ALBUMIN 3.4 g/dL (3.5-5.0)
[2017-06-04 23:03] LABS: INR 1.5; PROTHROMBIN TIME 17.3 SECONDS (9.7-12.2)
[2017-06-04 23:03] LABS: GFR AFRICAN-AMERICAN > 60; GFR NON-AFRICAN AMERICAN > 60
[2017-06-04 23:04] LABS: ALB/GLOB RATIO 0.8 (1.0-2.1); ALT/SGPT 39 U/L (21-72); AST/SGOT 49 U/L (17-59); BLOOD UREA NITROGEN 24 mg/dL (9-20); CALCIUM 8.5 mg/dl (8.6-10.4); LIPASE 175 U/L (23-300)
[2017-06-04 23:13] LABS: B-TYPE NATRIURETIC PEPTIDE 5750 pg/mL (0-450)
[2017-06-05] MEDS ORDERED: Iodixanol 320 MG/ML 100 ML BOTTLE IV ONE (00:14)
--- NOTE | 2017-06-05 01:26 | CP.PCM.HP ---
History of Present Illness - History of Present Illness History of Present Illness: Medicine Note CC: Abdominal pain and SOB HPI: 46M with PMHx as below presented to the ED complaining of abdominal pain and SOB. Patient reports the abdominal pain started yesterday morning. Pain was sharp in nature, localized to the left side of his abdomen radiating to the left flank. Patient reported speaking to Dr. Ocampo, was told to increase his lasix dose, but the patient's SOB did not improve. Denied fever, chills, headache, chest pain, n/v/d/c, or urinary symptoms. PMH: HTN, CAD, CHF, Afib, COPD, ARLENE, Herniated discs L-spine, Bipolar/Depression , Asthma, hx of splenic infarct Meds: Diltiazem, ASA, Carvedilol, digoxin, enalapril, HCTZ, k-dur, Lasix, Albuterol, Prozac, Simvastatin, Montelukast, Tizanidine, Xanax, Gabapentin. Allergy: Apixaban, clopidogrel, enoxaparin, Morphine PSH: Appendectomy (2008), Coronary stents x4 ([id number]) Hosp: multiple admissions recently for SOB, splenic hematoma and bacteremia FH: Denies Social: Denies tobacco use- wears a nicotine patch. Social alcohol use; Admits to Cocaine use Present on Admission - Present on Admission Any Indicators Present on Admission: No Past Patient History - Infectious Disease Hx of Infectious Diseases: None - Tetanus Immunizations Tetanus Immunization: Up to Date - Past Medical History & Family History Past Medical History?: Yes - Past Social History Smoking Status: Former Smoker - CARDIAC Hx Atrial Fibrillation: Yes Hx Cardia Arrhythmia: Yes Hx Congestive Heart Failure: Yes Hx Hypercholesterolemia: Yes Hx Hypertension: Yes Hx Peripheral Edema: Yes - PULMONARY Hx Asthma: Yes Hx Chronic Obstructive Pulmonary Disease (COPD): Yes Hx Emphysema: Yes Hx Sleep Apnea: Yes - NEUROLOGICAL Hx Neurological Disorder: No - HEENT Hx HEENT Problems: No - RENAL Hx Chronic Kidney Disease: No - ENDOCRINE/METABOLIC Hx Endocrine Disorders: No - HEMATOLOGICAL/ONCOLOGICAL Hx Blood Disorders: Yes Other/Comment: MRSA Hx - INTEGUMENTARY Hx Dermatological Problems: No - MUSCULOSKELETAL/RHEUMATOLOGICAL Hx Musculoskeletal Disorders: Yes - GASTROINTESTINAL Hx Gastrointestinal Disorders: Yes Other/Comment: Splenic Hematoma - GENITOURINARY/GYNECOLOGICAL Hx Genitourinary Disorders: No - PSYCHIATRIC Hx Anxiety: Yes Hx Bipolar Disorder: Yes Hx Depression: Yes Hx Substance Use: No (coccaine) - SURGICAL HISTORY Hx Appendectomy: Yes (2008) Hx Coronary Stent: Yes (2008 - 2012 4 stents) - ANESTHESIA Hx Anesthesia: Yes Hx Anesthesia Reactions: No Hx Malignant Hyperthermia: No Meds Allergies/Adverse Reactions: Allergies Allergy/AdvReac Type Severity Reaction Status Date / Time apixaban [From Eliquis] Allergy RASH Verified 06/04/17 22:08 clopidogrel bisulfate Allergy RASH Verified 06/04/17 22:08 [From Plavix] enoxaparin sodium Allergy RASH Verified 06/04/17 22:08 [From Lovenox] morphine Allergy RASH Verified 06/04/17 22:08 Physical Exam - Constitutional Appears: No Acute Distress - Head Exam Head Exam: NORMAL INSPECTION, NORMOCEPHALIC - Eye Exam Eye Exam: Normal appearance - ENT Exam ENT Exam: Mucous Membranes Moist - Respiratory Exam Respiratory Exam: Rales, Wheezes, NORMAL BREATHING PATTERN - Cardiovascular Exam Cardiovascular Exam: REGULAR RHYTHM, JVD, RRR - GI/Abdominal Exam GI & Abdominal Exam: Normal Bowel Sounds, Soft, Tenderness - Extremities Exam Extremities exam: Positive for: normal inspection, pedal edema, pedal pulses present - Back Exam Back exam: NORMAL INSPECTION - Neurological Exam Neurological exam: Alert, Oriented x3 - Skin Skin Exam: Dry, Intact, Normal Color, Warm Results - Vital Signs Recent Vital Signs: Last Vital Signs Temp 97.5 F L 06/04/17 22:05 Pulse 108 H 06/05/17 00:38 Resp 19 06/05/17 00:38 BP 107/81 06/05/17 00:59 Pulse Ox 100 06/05/17 00:38 - Labs Result Diagrams: 06/04/17 22:15 06/04/17 22:48 Assessment & Plan - Assessment and Plan (Free Text) Assessment: 46M with PMHx as below presented to the ED complaining of abdominal pain and SOB. Plan: Abdominal Pain * CT Abdomen & Pelvis w/ IV contrast: 1. The liver appears ill-defined and there is a question of subcapsular hematoma, versus motion artifact. Close clinical correlation is requested. 2. Spleen demonstrates a small fluid collection and a small amount of air adjacent and extending along the left inner portion of the abdominal wall. Unclear if this represents abscess or hematoma. Has there been recently the presence of a pigtail drainage catheter ? Please correlate clinically. 3. There is retroperitoneal lymphadenopathy. 4. There is harika mesentery, nonspecific but can be seen in lymphoma. Please correlate clinically. 5. There is trace perihepatic ascites and there is trace fluid in both paracolic gutters. This is abnormal though nonspecific. 6. Additional incidental and/or chronic findings as described. CHF Exacerbation * CXR: Cardiomegaly, venous congestion * BNP: 5720 * ECHO (02/2017): LV systolic function severely reduced. LV mildly dilated. Severe global hypokinesis of LV. Negative for endocarditis. * Lasix 40 mg IV Q8H * HCTZ 50mg PO daily * Aldactone 25mg PO daily * I's & O's, daily weight Anxiety and depression * Prozac 40mg po daily * Xanax 1mg po Q6H PRN anxiety Afib * EKG in ED: Afib , Rate 118 on admission * Cardizem 30mg po q6H * Digoxin 0.125 mg PO daily COPD * O2 2LNC * Duonebs Q6H PRN * Singulair 10 mg PO HS HTN * Lasix 40 mg IV BID * Cardizem 30mg po q6h * restarted home meds: HCTZ 50mg PO daily, Aldactone 25mg PO daily CAD * Crestor 10mg PO HS ARLENE * Pt denies using BIPAP at night * 2L O2 PRN Tobacco Use Disorder * Smoking Cessation * Nicoderm Patch Cocaine Use Disorder * UDS + for cocaine * HOLD BB Prophylactic Measures * GI PPX: Protonix 40mg PO daily * DVT PPX: SCDs, VTE c/i due to hx of splenic infarct DW Susan Vernon DO, PGY-1
[2017-06-05] MEDS ORDERED: Albuterol-Ipratrop 3 mg / 0.5 (3 ml) UD INH SCH (02:00)
--- NOTE | 2017-06-05 02:13 | CT ---
EXAM: CT Abdomen and Pelvis With Intravenous Contrast CLINICAL HISTORY: 46 years old, male; Pain; Abdominal pain; Patient HX: 6-17; Additional info: Abd pain bed 15 TECHNIQUE: Axial computed tomography images of the abdomen and pelvis with intravenous contrast. This CT exam was performed using one or more of the following dose reduction techniques: automated exposure control, adjustment of the mA and/or kV according to patient size, and/or use of iterative reconstruction technique. Coronal and sagittal reformatted images were created and reviewed. CONTRAST: 100 mL of [id number] administered intravenously. COMPARISON: CT - CHEST, ABDOMEN WITH CO 05/04/2017 10:57:27 PM FINDINGS: Lower thorax: There is minimal bibasilar atelectasis. ABDOMEN: Liver: The liver appears ill-defined and there is a question of subcapsular hematoma, versus motion artifact. Close clinical correlation is requested. Gallbladder and bile ducts: The gallbladder is contracted but otherwise normal. No calcified stones. No ductal dilation. Pancreas: Pancreas is slightly fatty replaced. No ductal dilation. Spleen: Spleen demonstrates a small fluid collection and a small amount of air adjacent and extending along the left inner portion of the abdominal wall. Unclear if this represents abscess or hematoma. Has there been recently the presence of a pigtail drainage catheter? Please correlate clinically. Adrenals: The adrenal glands are normal. Kidneys and ureters: The kidneys are normal. No hydronephrosis. Stomach and bowel: The stomach is normal. Moderate diverticulosis is present in the sigmoid and descending colon. Colonic constipation is present. There is no evidence of intestinal obstruction. No mucosal thickening. Appendix: No findings to suggest acute appendicitis. PELVIS: Bladder: The bladder is normal. Reproductive: The prostate gland and seminal vesicles are normal. ABDOMEN and PELVIS: Intraperitoneal space: There is trace perihepatic ascites and there is trace fluid in both paracolic gutters. This is abnormal though nonspecific. Aside from the small amount of free air near the spleen and in the left paracolic gutter, there is no other abdominal or retroperitoneal free air. Bones/joints: There are moderate degenerative changes present. There is mild diffuse osteopenia. No acute fracture. No dislocation. Soft tissues: Unremarkable. Vasculature: The aorta demonstrates mild atherosclerotic calcification. No abdominal aortic aneurysm. Lymph nodes: There is retroperitoneal lymphadenopathy. There is harika mesentery, nonspecific but can be seen in lymphoma. Please correlate clinically. IMPRESSION: 1. The liver appears ill-defined and there is a question of subcapsular hematoma, versus motion artifact. Close clinical correlation is requested. 2. Spleen demonstrates a small fluid collection and a small amount of air adjacent and extending along the left inner portion of the abdominal wall. Unclear if this represents abscess or hematoma. Has there been recently the presence of a pigtail drainage catheter? Please correlate clinically. 3. There is retroperitoneal lymphadenopathy. 4. There is harika mesentery, nonspecific but can be seen in lymphoma. Please correlate clinically. 5. There is trace perihepatic ascites and there is trace fluid in both paracolic gutters. This is abnormal though nonspecific. 6. Additional incidental and/or chronic findings as described.
[2017-06-05 06:59] LABS: URINE BILIRUBIN NEGATIVE (NEGATIVE); URINE BLOOD NEGATIVE (NEGATIVE); URINE CLARITY Clear (Clear); URINE COLOR Colorless (YELLOW); URINE GLUCOSE (UA) NORMAL (Normal); URINE LEUKOCYTE ESTERASE NEG Leu/uL (Negative); URINE NITRATE NEGATIVE (NEGATIVE); URINE PROTEIN NEGATIVE (NEGATIVE); URINE UROBILINOGEN NORMAL mg/dL (0.2-1.0)
[2017-06-05 07:22] LABS: BARBITURATES, UR NEGATIVE (NEGATIVE); BENZODIAZEPINES, UR NEGATIVE (NEGATIVE)
[2017-06-05 07:45] LABS: OPIATES, UR NEGATIVE (NEGATIVE)
[2017-06-05 07:46] LABS: PHENCYCLIDINE, UR NEGATIVE (NEGATIVE)
[2017-06-05] MEDS: Albuterol-Ipratrop 3 mg / 0.5 (3 ml) UD INH SCH ×2 (09:06→18:27)
--- NOTE | 2017-06-05 09:17 | RAD ---
PROCEDURE: CHEST RADIOGRAPH, 1 VIEW HISTORY: chest pain COMPARISON: 05/19/2017 FINDINGS: LUNGS: Prominent diffuse increased interstitial lung markings suggestive for edema and or infiltrate. Clinical correlation. Additional confluent airspace consolidation at the left lung base with a suggestion of a left pleural effusion. Right midlung atelectasis. PLEURA: As above. CARDIOVASCULAR: Cardiomegaly. OSSEOUS STRUCTURES: No significant abnormalities. VISUALIZED UPPER ABDOMEN: Normal. OTHER FINDINGS: None. IMPRESSION: Prominent diffuse increased interstitial lung markings suggestive for edema and or infiltrate. Clinical correlation. Additional confluent airspace consolidation at the left lung base with a suggestion of a left pleural effusion. Right midlung atelectasis.
[2017-06-05] MEDS ORDERED: Enoxaparin 40 mg Syringe SC SCH (10:00)
[2017-06-05] MEDS ORDERED: Digoxin 125 mcg (0.125 mg) Tab PO STA (13:35)
--- NOTE | 2017-06-05 14:27 | PCM.RRTMUL ---
<Xochilt Peterson - Last Filed: 06/05/17 20:01> [employer] Nurses Assessment - Vital Signs Blood Pressure:: 174/101 I.Reason for [employer] - A) Acute Change in Patient: Subjective: increased pulse and blood pressure - A) Initial Vital Signs: Blood Pressure: 174/101 Pulse Rate: 170 Temperature: 97.7 F O2 Sat by Pulse Oximetry: 94 Finger Stick Blood Glucose: 109 - B) Neurological Status (Select all that apply): Responsive, Verbal, Aggressive - C) Respiratory Oxygen Delivery Method: Nasal Cannula @L/min (3L nasal canula) - Constitutional Appears: Non-toxic, In Acute Distress - Head Head Exam: ATRAUMATIC, NORMAL INSPECTION - Eyes Eye Exam: Normal appearance - Respiratory Exam Respiratory Exam: Clear to Ausculation Bilateral. absent: Rales, Rhonchi, Wheezes, Stridor Additional comments: increased respiratory rate - Cardiovascular Exam Cardiovascular Exam: RRR Additional comments: tachycardic - GI/Abdominal Exam GI & Abdominal Exam: Soft. absent: Firm, Guarding, Rigid - Neurological Exam Neurological Exam: Alert, Awake, Oriented x3 - Extremities Exam Extremities Exam: Full ROM Plan - A. End of [employer] Vital Signs: Blood Pressure: 153/81 Pulse Rate: 102 Temperature: 97.7 F O2 Sat by Pulse Oximetry: 94 - B. Assessment of Findings&Treatment Plan Rapid Response called at 13:54 for tachycardia. Patient given cardizem 5mg ivpush given before rapid called. Patient aggravated and pulse stayed high. Cardizem 10 mg iv push given at 13:57. Patient's pulse and blood pressure still high so Cardizem 10mg iv push given at 14:09. Patient started to calm down and blood pressure and heart rate decreased. <Janis Redd V - Last Filed: 06/09/17 16:48> Attending/Attestation - Attestation I have personally seen and examined this patient.: Yes I have fully participated in the care of the patient.: Yes I have reviewed all pertinent clinical information, including history, physical exam and plan: Yes Notes (Text): This is late computer entry for 06/05/17. Patient seen, examined, and case discussed with on-call and senior residents. Nurse called [employer] for SBP: 200s. Patient is noticeably agitated at bedside, wondering why so many people in the room. Patient given Cardizem PO and Digoxin PO prior to my arrival. Patient straining while waiting to the use the bathroom. Patient allowed to go the bathroom since he is not in acute distress and talking comfortably about both daughter's recent graduation. Patient received IV Cardizem at bedside. Blood pressure and heart rate improved ; safe for the telemetry floor. Note: patient's intial blood pressure cuff is too small for the patient and requires one for heavier set patient. Per primary attending, requests for ICU consult and cardio consult. Discussed with ICU, patient is not an icu candidate, treat patient's anxiety which is an contributing factor. Patient per cardiology also recommended for IV lopressor and Lopressor PO. Further management per primary attending, Dr Ocampo.
[2017-06-05] MEDS ORDERED: Metoprolol 1 mg/ml Inj IVP ONE (14:42)
[2017-06-05] MEDS: Aspirin 325 mg EC Tablets PO SCH (15:00)
[2017-06-05 15:49] VITALS: RESP 20
[2017-06-05] MEDS ORDERED: Oxycodone/Acetaminophen 5/325 mg Tab PO STA (16:27)
--- NOTE | 2017-06-05 17:05 | CARD ---
APPROVED REPORT EKG Measurement Heart [id number] <Conclusion> Atrial fibrillation with rapid ventricular response Left anterior fascicular block Inferior infarct, age undetermined Cannot rule out Anterior infarct, age undetermined ST & T wave abnormality, consider lateral ischemia Abnormal ECG
[2017-06-05] MEDS ORDERED: Digoxin 125 mcg (0.125 mg) Tab PO SCH (18:00)
--- NOTE | 2017-06-05 20:04 | CP.PCM.PN ---
<Xochilt Peterson - Last Filed: 06/05/17 20:02> Subjective - Date & Time of Evaluation Date of Evaluation: 06/05/17 Time of Evaluation: 07:00 - Subjective Subjective: PGY1- Medicine Note- Dr. Ocampo's service Patient was seen today at bedside sitting up in no acute distress with no visitors at bedside. He reports SOB and abdominal pain increase proportionally with anxiety and requests IV fast acting benzos. Pain still present originating from LLQ abdomen radiating to left flank, at worse 9/10, at best 3/10. Dyspnea worsens on lying supine, reports a poor night's sleep (maximum interval 40min) overnight achieved by laying right lateral recumbent. Denies fever, chills, headache, chest pain, n/v/c/d, urinary symptoms. Admits to some dizziness when he changes positions and weakness after deep respiration. At 1:54 [employer] was called for tachycardia and hypertension. Patient very aggravated and anxious. Please see [employer] note for full details. After [employer] REPA[employer]ER Dr. West, cardiology was contacted who recommended amiodarone 200 mg daily, stat dose of lopressor 5mg IVP, and lopressor 25 po BID. Objective - Vital Signs/Intake and Output Vital Signs (last 24 hours): Temp Pulse Resp BP Pulse Ox 97.7 F 102 H 20 153/81 H 92 L 06/05/17 20:01 06/05/17 20:01 06/05/17 15:46 06/05/17 20:01 06/05/17 16:57 Intake and Output: 06/05/17 06/06/17 18:59 06:59 Intake Total 200 Output Total 900 Balance -700 - Medications Medications: Current Medications Albuterol/Ipratropium (Duoneb 3 Mg/0.5 Mg (3 Ml) Ud) 3 ml INH RQ6 [facility] Last Admin: 06/05/17 18:27 Dose: 3 ml Alprazolam (Xanax) 1 mg PO Q6H PRN PRN Reason: Anxiety Last Admin: 06/05/17 12:39 Dose: 1 mg Amiodarone HCl (Cordarone) 200 mg PO DAILY [facility] Aspirin (Ecotrin) 325 mg PO DAILY [facility] Last Admin: 06/05/17 15:00 Dose: 325 mg Carvedilol (Coreg) 12.5 mg PO BID [facility] Digoxin (Lanoxin) 0.125 mg PO DAILY@1800 [facility] Last Admin: 06/05/17 18:34 Dose: Not Given Diltiazem HCl (Cardizem) 30 mg PO QID [facility] Last Admin: 06/05/17 18:29 Dose: 30 mg Enalapril Maleate (Vasotec) 10 mg PO DAILY [facility] Famotidine (Pepcid) 20 mg PO DAILY [facility] Last Admin: 06/05/17 12:40 Dose: 20 mg Fluoxetine HCl (Prozac) 40 mg PO DAILY [facility] Last Admin: 06/05/17 12:40 Dose: 40 mg Furosemide (Lasix) 40 mg IVP Q8H [facility] Last Admin: 06/05/17 20:01 Dose: Not Given Gabapentin (Neurontin) 300 mg PO DAILY [facility] Gabapentin (Neurontin) 600 mg PO HS [facility] Hydrochlorothiazide (Hydrodiuril) 50 mg PO DAILY [facility] Last Admin: 06/05/17 12:40 Dose: 50 mg Metoprolol Tartrate (Lopressor) 25 mg PO BID [facility] Last Admin: 06/05/17 18:29 Dose: 25 mg Montelukast Sodium (Singulair) 10 mg PO HS [facility] Nicotine (Nicoderm Cq) 1 patch TD DAILY [facility] Last Admin: 06/05/17 12:40 Dose: 1 patch Rosuvastatin Calcium (Crestor) 5 mg PO HS [facility] Spironolactone (Aldactone) 25 mg PO DAILY [facility] Last Admin: 06/05/17 12:40 Dose: 25 mg - Labs Labs: PT 17.3 SECONDS (9.7-12.2) H 06/04/17 22:15 INR 1.5 06/04/17 22:15 APTT 37 SECONDS (21-34) H 06/04/17 22:15 - Constitutional Appears: Well, Non-toxic, No Acute Distress - Head Exam Head Exam: ATRAUMATIC, NORMAL INSPECTION, NORMOCEPHALIC - Eye Exam Eye Exam: EOMI, Normal appearance, PERRL - ENT Exam ENT Exam: Mucous Membranes Moist - Neck Exam Neck Exam: Full ROM - Respiratory Exam Respiratory Exam: Decreased Breath Sounds, Respiratory Distress - Cardiovascular Exam Cardiovascular Exam: Tachycardia, REGULAR RHYTHM. absent: Murmur - GI/Abdominal Exam GI & Abdominal Exam: Soft, Normal Bowel Sounds. absent: Distended, Firm, Guarding, Rigid - Extremities Exam Extremities Exam: Full ROM, Normal Capillary Refill. absent: Calf Tenderness Additional comments: otto varicose veins in legs bilaterally. 2+ pitting pedal edema bilaterally - Back Exam Back Exam: NORMAL INSPECTION - Neurological Exam Neurological Exam: Alert, Awake, Oriented x3 - Psychiatric Exam Psychiatric exam: Agitated, Anxious - Skin Skin Exam: Intact, Warm Additional comments: scars and track alex from drug history notes on arms/legs and abdomen Assessment and Plan - Assessment and Plan (Free Text) Assessment: Abdominal Pain * CT Abdomen & Pelvis w/ IV contrast: 1. The liver appears ill-defined and there is a question of subcapsular hematoma, versus motion artifact. Close clinical correlation is requested. 2. Spleen demonstrates a small fluid collection and a small amount of air adjacent and extending along the left inner portion of the abdominal wall. Unclear if this represents abscess or hematoma. Has there been recently the presence of a pigtail drainage catheter ? Please correlate clinically. 3. There is retroperitoneal lymphadenopathy. 4. There is harika mesentery, nonspecific but can be seen in lymphoma. Please correlate clinically. 5. There is trace perihepatic ascites and there is trace fluid in both paracolic gutters. This is abnormal though nonspecific. 6. Additional incidental and/or chronic findings as described. CHF Exacerbation * CXR: Cardiomegaly, venous congestion * BNP: 5720 * ECHO (02/2017): LV systolic function severely reduced. LV mildly dilated. Severe global hypokinesis of LV. Negative for endocarditis. * Lasix 40 mg IV Q8H * HCTZ 50mg PO daily * Aldactone 25mg PO daily * I's & O's, daily weight Anxiety and depression * Prozac 40mg po daily * Xanax 1mg po Q6H PRN anxiety Afib * EKG in ED: Afib , Rate 118 on admission * Cardizem 30mg po q6H * Digoxin 0.125 mg PO daily * aspirin 325 mg po daily started 06/05 * 06/05- coreg 12.5 mg po BID held * COPD * O2 2LNC * Duonebs Q6H PRN * Singulair 10 mg PO HS HTN * Lasix 40 mg IV BID * Cardizem 30mg po q6h * restarted home meds: HCTZ 50mg PO daily, Aldactone 25mg PO daily * patient had data support specialist today for htn and tachycardia: cardizem 5mg ivp then 10mg ivp then 10mg ivp * Dr. West (cardio)consulted, amiodarone 200mg daily started, lopressor 5mg IVP stat given, lopressor 25mg po BID * Enalapril 10 mg PO daily started 06/05 CAD * Crestor 5mg PO HS [facility] * Pt denies using BIPAP at night * 2L O2 PRN Tobacco Use Disorder * Smoking Cessation * Nicoderm Patch Cocaine Use Disorder * UDS + for cocaine * HOLD BB Prophylactic Measures * GI PPX: Protonix 40mg PO daily * DVT PPX: SCDs, VTE c/i due to hx of splenic infarct <Roque Ocampo Jr. - Last Filed: 06/09/17 10:40> Objective - Vital Signs/Intake and Output Vital Signs (last 24 hours): Temp Pulse Resp BP Pulse Ox 97.5 F L 65 20 154/80 H 99 06/08/17 00:00 06/08/17 10:45 06/08/17 00:00 06/08/17 10:46 06/08/17 10:45 - Labs Labs: 06/08/17 08:43 06/08/17 08:43 PT 17.3 SECONDS (9.7-12.2) H 06/04/17 22:15 INR 1.5 06/04/17 22:15 APTT 37 SECONDS (21-34) H 06/04/17 22:15 Attending/Attestation - Attestation I have personally seen and examined this patient.: Yes I have fully participated in the care of the patient.: Yes I have reviewed all pertinent clinical information, including history, physical exam and plan: Yes Notes (Text): 06/09/17 10:39 Agree with resident note and findings
[2017-06-05] MEDS: Oxycodone/Acetaminophen 5/325 mg Tab PO PRN (21:31)
[2017-06-06] MEDS: Albuterol-Ipratrop 3 mg / 0.5 (3 ml) UD INH SCH ×4 (01:37→19:03)
[2017-06-06] MEDS: Oxycodone/Acetaminophen 5/325 mg Tab PO PRN ×3 (03:54→21:07)
--- NOTE | 2017-06-06 07:23 | CP.PCM.CON ---
Past Patient History - Infectious Disease Hx of Infectious Diseases: None - Tetanus Immunizations Tetanus Immunization: Up to Date - Past Medical History & Family History Past Medical History?: Yes - Past Social History Smoking Status: Former Smoker - CARDIAC Hx Atrial Fibrillation: Yes Hx Cardia Arrhythmia: Yes Hx Congestive Heart Failure: Yes Hx Hypercholesterolemia: Yes Hx Hypertension: Yes Hx Peripheral Edema: Yes - PULMONARY Hx Asthma: Yes Hx Chronic Obstructive Pulmonary Disease (COPD): Yes Hx Emphysema: Yes Hx Sleep Apnea: Yes - NEUROLOGICAL Hx Neurological Disorder: No - HEENT Hx HEENT Problems: No - RENAL Hx Chronic Kidney Disease: No - ENDOCRINE/METABOLIC Hx Endocrine Disorders: No - HEMATOLOGICAL/ONCOLOGICAL Hx Blood Disorders: Yes Other/Comment: MRSA Hx - INTEGUMENTARY Hx Dermatological Problems: No - MUSCULOSKELETAL/RHEUMATOLOGICAL Hx Musculoskeletal Disorders: Yes Hx Falls: No - GASTROINTESTINAL Hx Gastrointestinal Disorders: Yes Other/Comment: Splenic Hematoma - GENITOURINARY/GYNECOLOGICAL Hx Genitourinary Disorders: No - PSYCHIATRIC Hx Anxiety: Yes Hx Bipolar Disorder: Yes Hx Depression: Yes Hx Substance Use: No (coccaine) - SURGICAL HISTORY Hx Appendectomy: Yes (2008) Hx Coronary Stent: Yes (2008 - 2012 4 stents) - ANESTHESIA Hx Anesthesia: Yes Hx Anesthesia Reactions: No Hx Malignant Hyperthermia: No Meds Allergies/Adverse Reactions: Allergies Allergy/AdvReac Type Severity Reaction Status Date / Time apixaban [From Eliquis] Allergy RASH Verified 06/04/17 22:08 clopidogrel bisulfate Allergy RASH Verified 06/04/17 22:08 [From Plavix] enoxaparin sodium Allergy RASH Verified 06/04/17 22:08 [From Lovenox] morphine Allergy RASH Verified 06/04/17 22:08 - Medications Medications: Current Medications Albuterol/Ipratropium (Duoneb 3 Mg/0.5 Mg (3 Ml) Ud) 3 ml INH RQ6 [facility] Last Admin: 06/06/17 01:37 Dose: Not Given Alprazolam (Xanax) 1 mg PO Q6H PRN PRN Reason: Anxiety Last Admin: 06/06/17 06:31 Dose: 1 mg Amiodarone HCl (Cordarone) 200 mg PO DAILY [facility] Aspirin (Ecotrin) 325 mg PO DAILY [facility] Last Admin: 06/05/17 15:00 Dose: 325 mg Carvedilol (Coreg) 12.5 mg PO BID [facility] Digoxin (Lanoxin) 0.125 mg PO DAILY@1800 [facility] Last Admin: 06/05/17 18:34 Dose: Not Given Diltiazem HCl (Cardizem) 30 mg PO QID [facility] Last Admin: 06/05/17 21:31 Dose: 30 mg Enalapril Maleate (Vasotec) 10 mg PO DAILY [facility] Famotidine (Pepcid) 20 mg PO DAILY [facility] Last Admin: 06/05/17 12:40 Dose: 20 mg Fluoxetine HCl (Prozac) 40 mg PO DAILY [facility] Last Admin: 06/05/17 12:40 Dose: 40 mg Furosemide (Lasix) 40 mg IVP Q8H [facility] Last Admin: 06/06/17 04:37 Dose: Not Given Gabapentin (Neurontin) 300 mg PO DAILY [facility] Gabapentin (Neurontin) 600 mg PO HS [facility] Last Admin: 06/05/17 21:31 Dose: 600 mg Hydrochlorothiazide (Hydrodiuril) 50 mg PO DAILY [facility] Last Admin: 06/05/17 12:40 Dose: 50 mg Metoprolol Tartrate (Lopressor) 25 mg PO BID [facility] Last Admin: 06/05/17 18:29 Dose: 25 mg Montelukast Sodium (Singulair) 10 mg PO HS [facility] Last Admin: 06/05/17 21:31 Dose: 10 mg Nicotine (Nicoderm Cq) 1 patch TD DAILY [facility] Last Admin: 06/05/17 12:40 Dose: 1 patch Rosuvastatin Calcium (Crestor) 5 mg PO HS [facility] Last Admin: 06/05/17 21:31 Dose: 5 mg Spironolactone (Aldactone) 25 mg PO DAILY [facility] Last Admin: 06/05/17 12:40 Dose: 25 mg Results - Vital Signs Recent Vital Signs: Last Vital Signs Temp 97.7 F 06/06/17 00:00 Pulse 96 H 06/06/17 00:00 Resp 20 06/06/17 00:00 BP 121/82 06/06/17 00:00 Pulse Ox 95 06/06/17 00:00 - Labs Result Diagrams: 06/04/17 22:15 06/04/17 22:48 Labs: Laboratory Results - last 24 hr 06/05/17 06/05/17 06:50 13:57 POC Glucose (mg/dL) 109 Urine Opiates Screen Negative Urine Methadone Screen Negative Ur Barbiturates Screen Negative Ur Phencyclidine Scrn Negative Ur Amphetamines Screen Negative U Benzodiazepines Scrn Negative U Oth Cocaine Metabols Positive U Cannabinoids Screen Negative
[2017-06-06 10:12] LABS: ALBUMIN 3.6 g/dL (3.5-5.0)
[2017-06-06 10:15] LABS: ALB/GLOB RATIO 0.8 (1.0-2.1); ALT/SGPT 34 U/L (21-72); AST/SGOT 38 U/L (17-59); BASO # 0.1 K/uL (0.0-0.2); BLOOD UREA NITROGEN 19 mg/dL (9-20); EOS # 0.3 K/uL (0.0-0.7); GFR AFRICAN-AMERICAN > 60; GFR NON-AFRICAN AMERICAN > 60; MEAN CELL VOLUME 82.1 fL (80.0-94.0); MEAN PLATELET VOLUME 8.4 fL (7.2-11.7)
[2017-06-06 10:16] LABS: CALCIUM 8.8 mg/dl (8.6-10.4)
[2017-06-06 10:31] LABS: BASO % 0.4 % (0.0-2.0); EOS % 2.4 % (0.0-4.0); HEMOGLOBIN 13.3 g/dL (12.0-18.0); LYMPH # 2.4 K/uL (1.0-4.3); LYMPH % 18.7 % (20.0-40.0); MEAN CORPUSCULAR HEMOGLOBIN 25.1 pg (27.0-31.0); MEAN CORPUSCULAR HGB CONC 30.6 g/dL (33.0-37.0); MONO # 1.7 K/uL (0.0-0.8); MONO % 13.1 % (0.0-10.0); NEUT # 8.5 K/uL (1.8-7.0); NEUT % 65.4 % (50.0-75.0); NRBC % 0.2 % (0.0-2.0); RBC 5.28 Mil/uL (4.40-5.90); RED CELL DISTRIBUTION WIDTH 19.5 % (11.5-14.5)
[2017-06-06] MEDS: Aspirin 325 mg EC Tablets PO SCH (11:47)
--- NOTE | 2017-06-06 15:48 | CP.PCM.PN ---
<Xochilt Peterson - Last Filed: 06/06/17 15:43> Subjective - Date & Time of Evaluation Date of Evaluation: 06/06/17 Time of Evaluation: 08:00 - Subjective Subjective: PGY1 Medicine Note- Dr. Ocampo's service Patient seen and examined at bedside an in no acute distress. Patient is calmer today. Patient resting comfortably in bed. Patient complains of left sided abdominal pain. Patient denies shortness of breath, chest pain, nausea, vomiting , constipation, or diarrhea. Objective - Vital Signs/Intake and Output Vital Signs (last 24 hours): Temp Pulse Resp BP Pulse Ox 98.2 F 76 20 119/91 H 95 06/06/17 15:00 06/06/17 15:00 06/06/17 15:00 06/06/17 15:00 06/06/17 15:00 Intake and Output: 06/06/17 06/06/17 06:59 18:59 Intake Total 120 Output Total 600 Balance -480 - Medications Medications: Current Medications Albuterol/Ipratropium (Duoneb 3 Mg/0.5 Mg (3 Ml) Ud) 3 ml INH RQ6 [facility] Last Admin: 06/06/17 13:21 Dose: 3 ml Alprazolam (Xanax) 1 mg PO Q6H PRN PRN Reason: Anxiety Last Admin: 06/06/17 12:11 Dose: 1 mg Amiodarone HCl (Cordarone) 200 mg PO DAILY [facility] Aspirin (Ecotrin) 325 mg PO DAILY [facility] Carvedilol (Coreg) 12.5 mg PO BID [facility] Digoxin (Lanoxin) 0.125 mg PO DAILY@1800 [facility] Diltiazem HCl (Cardizem) 30 mg PO QID [facility] Last Admin: 06/06/17 15:24 Dose: 30 mg Enalapril Maleate (Vasotec) 10 mg PO DAILY [facility] Last Admin: 06/06/17 11:51 Dose: 10 mg Famotidine (Pepcid) 20 mg PO DAILY [facility] Last Admin: 06/06/17 11:46 Dose: 20 mg Fluoxetine HCl (Prozac) 40 mg PO DAILY [facility] Last Admin: 06/06/17 12:11 Dose: 40 mg Furosemide (Lasix) 40 mg IVP Q8H [facility] Last Admin: 06/06/17 11:50 Dose: 40 mg Gabapentin (Neurontin) 300 mg PO DAILY [facility] Last Admin: 06/06/17 11:46 Dose: 300 mg Gabapentin (Neurontin) 600 mg PO [facility] Last Admin: 06/05/17 21:31 Dose: 600 mg Hydrochlorothiazide (Hydrodiuril) 50 mg PO DAILY [facility] Last Admin: 06/06/17 12:11 Dose: 50 mg Metoprolol Tartrate (Lopressor) 25 mg PO BID [facility] Last Admin: 06/06/17 11:54 Dose: Not Given Montelukast Sodium (Singulair) 10 mg PO [facility] Last Admin: 06/05/17 21:31 Dose: 10 mg Nicotine (Nicoderm Cq) 1 patch TD DAILY [facility] Last Admin: 06/06/17 11:47 Dose: 1 patch Oxycodone/Acetaminophen (Percocet 5/325 Mg Tab) 2 tab PO Q6H PRN PRN Reason: Pain, severe (8-10) Stop: 06/09/17 12:37 Last Admin: 06/06/17 13:13 Dose: 2 tab Rosuvastatin Calcium (Crestor) 5 mg PO [facility] Last Admin: 06/05/17 21:31 Dose: 5 mg Spironolactone (Aldactone) 25 mg PO DAILY [facility] Last Admin: 06/06/17 11:55 Dose: Not Given - Labs Labs: 06/06/17 09:52 06/06/17 09:52 PT 17.3 SECONDS (9.7-12.2) H 06/04/17 22:15 INR 1.5 06/04/17 22:15 APTT 37 SECONDS (21-34) H 06/04/17 22:15 - Constitutional Appears: Well, Non-toxic, No Acute Distress - Head Exam Head Exam: ATRAUMATIC, NORMAL INSPECTION, NORMOCEPHALIC - Eye Exam Eye Exam: EOMI, Normal appearance, PERRL - ENT Exam ENT Exam: Mucous Membranes Moist, Normal Exam - Neck Exam Neck Exam: Full ROM, Normal Inspection. absent: Lymphadenopathy - Respiratory Exam Respiratory Exam: Clear to Ausculation Bilateral, NORMAL BREATHING PATTERN. absent: Rhonchi, Wheezes, Respiratory Distress, Stridor - Cardiovascular Exam Cardiovascular Exam: REGULAR RHYTHM, RRR - GI/Abdominal Exam GI & Abdominal Exam: Soft, Normal Bowel Sounds. absent: Firm, Guarding, Rigid - Extremities Exam Extremities Exam: Full ROM, Normal Inspection - Back Exam Back Exam: NORMAL INSPECTION, rash noted - Neurological Exam Neurological Exam: Alert, Awake, Oriented x3 - Psychiatric Exam Psychiatric exam: Normal Affect, Normal Mood - Skin Skin Exam: Intact, Normal Color Additional comments: scars from injection site on legs, arms, and stomach Assessment and Plan - Assessment and Plan (Free Text) Assessment: Abdominal Pain * CT Abdomen & Pelvis w/ IV contrast: 1. The liver appears ill-defined and there is a question of subcapsular hematoma, versus motion artifact. Close clinical correlation is requested. 2. Spleen demonstrates a small fluid collection and a small amount of air adjacent and extending along the left inner portion of the abdominal wall. Unclear if this represents abscess or hematoma. Has there been recently the presence of a pigtail drainage catheter ? Please correlate clinically. 3. There is retroperitoneal lymphadenopathy. 4. There is harika mesentery, nonspecific but can be seen in lymphoma. Please correlate clinically. 5. There is trace perihepatic ascites and there is trace fluid in both paracolic gutters. This is abnormal though nonspecific. 6. Additional incidental and/or chronic findings as described. * Percocet 5/325 mg 2 tab po Q6h PRN for severe pain CHF Exacerbation * CXR: Cardiomegaly, venous congestion * BNP: 5720 * ECHO (02/2017): LV systolic function severely reduced. LV mildly dilated. Severe global hypokinesis of LV. Negative for endocarditis. 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 West (cardio)consulted, amiodarone 200mg daily started, lopressor 5mg IVP stat given, lopressor 25mg po BID * Enalapril 10 mg PO daily started 06/05 CAD * Crestor 5mg PO HS [facility] * Pt denies using BIPAP at night * 2L O2 PRN Tobacco Use Disorder * Smoking Cessation * Nicoderm Patch Cocaine Use Disorder * UDS + for cocaine * HOLD BB Prophylactic Measures * GI PPX: Protonix 40mg PO daily * DVT PPX: SCDs, VTE c/i due to hx of splenic infarct <Roque Ocampo Jr. - Last Filed: 06/09/17 10:42> Objective - Vital Signs/Intake and Output Vital Signs (last 24 hours): Temp Pulse Resp BP Pulse Ox 97.5 F L 65 20 154/80 H 99 06/08/17 00:00 06/08/17 10:45 06/08/17 00:00 06/08/17 10:46 06/08/17 10:45 - Labs Labs: 06/08/17 08:43 06/08/17 08:43 PT 17.3 SECONDS (9.7-12.2) H 06/04/17 22:15 INR 1.5 06/04/17 22:15 APTT 37 SECONDS (21-34) H 06/04/17 22:15 Attending/Attestation - Attestation I have personally seen and examined this patient.: Yes I have fully participated in the care of the patient.: Yes I have reviewed all pertinent clinical information, including history, physical exam and plan: Yes Notes (Text): 06/09/17 10:42 Agree with resident note and findings
[2017-06-06] MEDS ORDERED: Digoxin 125 mcg (0.125 mg) Tab PO SCH (18:00)
[2017-06-07] MEDS: Albuterol-Ipratrop 3 mg / 0.5 (3 ml) UD INH SCH ×3 (01:15→13:06)
[2017-06-07] MEDS: Oxycodone/Acetaminophen 5/325 mg Tab PO PRN ×3 (04:55→19:05)
--- NOTE | 2017-06-07 06:54 | CP.PCM.PN ---
Subjective - Date & Time of Evaluation Date of Evaluation: 06/07/17 Time of Evaluation: 06:54 Objective - Vital Signs/Intake and Output Vital Signs (last 24 hours): Temp Pulse Resp BP Pulse Ox 98.3 F 82 20 154/84 H 96 06/06/17 23:21 06/06/17 23:25 06/06/17 23:21 06/06/17 23:21 06/06/17 23:21 Intake and Output: 06/06/17 06/07/17 18:59 06:59 Intake Total 1080 Balance 1080 - Medications Medications: Current Medications Albuterol/Ipratropium (Duoneb 3 Mg/0.5 Mg (3 Ml) Ud) 3 ml INH RQ6 [facility] Last Admin: 06/07/17 01:15 Dose: Not Given Alprazolam (Xanax) 1 mg PO Q6H PRN PRN Reason: Anxiety Last Admin: 06/06/17 19:09 Dose: 1 mg Amiodarone HCl (Cordarone) 200 mg PO DAILY [facility] Aspirin (Ecotrin) 325 mg PO DAILY [facility] Carvedilol (Coreg) 12.5 mg PO BID [facility] Digoxin (Lanoxin) 0.125 mg PO DAILY@1000 [facility] Diltiazem HCl (Cardizem) 30 mg PO QID [facility] Last Admin: 06/06/17 21:16 Dose: 30 mg Enalapril Maleate (Vasotec) 10 mg PO DAILY [facility] Last Admin: 06/06/17 11:51 Dose: 10 mg Famotidine (Pepcid) 20 mg PO DAILY [facility] Last Admin: 06/06/17 11:46 Dose: 20 mg Fluoxetine HCl (Prozac) 40 mg PO DAILY [facility] Last Admin: 06/06/17 12:11 Dose: 40 mg Furosemide (Lasix) 40 mg IVP Q8H [facility] Last Admin: 06/07/17 04:58 Dose: Not Given Gabapentin (Neurontin) 300 mg PO DAILY [facility] Last Admin: 06/06/17 11:46 Dose: 300 mg Gabapentin (Neurontin) 600 mg PO HS [facility] Last Admin: 06/06/17 21:16 Dose: 600 mg Hydrochlorothiazide (Hydrodiuril) 50 mg PO DAILY [facility] Last Admin: 06/06/17 12:11 Dose: 50 mg Metoprolol Tartrate (Lopressor) 25 mg PO BID [facility] Last Admin: 06/06/17 19:00 Dose: 25 mg Montelukast Sodium (Singulair) 10 mg PO HS [facility] Last Admin: 06/06/17 21:16 Dose: 10 mg Nicotine (Nicoderm Cq) 1 patch TD DAILY [facility] Last Admin: 06/06/17 11:47 Dose: 1 patch Oxycodone/Acetaminophen (Percocet 5/325 Mg Tab) 2 tab PO Q6H PRN PRN Reason: Pain, severe (8-10) Stop: 06/09/17 12:37 Last Admin: 06/07/17 04:55 Dose: 2 tab Rosuvastatin Calcium (Crestor) 5 mg PO HS [facility] Last Admin: 06/06/17 21:16 Dose: 5 mg Spironolactone (Aldactone) 25 mg PO DAILY [facility] Last Admin: 06/06/17 11:55 Dose: Not Given - Labs Labs: 06/06/17 09:52 06/06/17 09:52 PT 17.3 SECONDS (9.7-12.2) H 06/04/17 22:15 INR 1.5 06/04/17 22:15 APTT 37 SECONDS (21-34) H 06/04/17 22:15
[2017-06-07 08:27] LABS: BASO # 0.1 K/uL (0.0-0.2); EOS # 0.3 K/uL (0.0-0.7); EOS % 2.5 % (0.0-4.0); MEAN PLATELET VOLUME 8.1 fL (7.2-11.7); MONO # 1.3 K/uL (0.0-0.8); NRBC % 0.1 % (0.0-2.0)
[2017-06-07 08:29] LABS: ALBUMIN 3.5 g/dL (3.5-5.0)
[2017-06-07 08:32] LABS: ALB/GLOB RATIO 0.8 (1.0-2.1); AST/SGOT 37 U/L (17-59); BLOOD UREA NITROGEN 24 mg/dL (9-20); GFR AFRICAN-AMERICAN > 60; GFR NON-AFRICAN AMERICAN > 60
[2017-06-07 08:33] LABS: ALT/SGPT 31 U/L (21-72); CALCIUM 8.7 mg/dl (8.6-10.4)
[2017-06-07 09:00] LABS: BASO % 0.6 % (0.0-2.0); HEMOGLOBIN 12.1 g/dL (12.0-18.0); LYMPH % 16.5 % (20.0-40.0); MEAN CELL VOLUME 82.3 fL (80.0-94.0); MEAN CORPUSCULAR HEMOGLOBIN 25.1 pg (27.0-31.0); MEAN CORPUSCULAR HGB CONC 30.5 g/dL (33.0-37.0); MONO % 10.8 % (0.0-10.0); NEUT # 8.6 K/uL (1.8-7.0); NEUT % 69.6 % (50.0-75.0); RBC 4.83 Mil/uL (4.40-5.90); RED CELL DISTRIBUTION WIDTH 19.1 % (11.5-14.5); WHITE BLOOD COUNT 12.3 K/uL (4.8-10.8)
[2017-06-07] MEDS: Aspirin 325 mg EC Tablets PO SCH (10:23)
[2017-06-07] MEDS: Digoxin 125 mcg (0.125 mg) Tab PO SCH (10:24)
--- NOTE | 2017-06-07 15:37 | CP.PCM.PN ---
<Xochilt Peterson - Last Filed: 06/07/17 20:34> Subjective - Date & Time of Evaluation Date of Evaluation: 06/07/17 Time of Evaluation: 08:00 - Subjective Subjective: PGY1 Medicine Note- Dr. Ocampo's service Patient seen and examined at bedside an in no acute distress. Patient is calmer today. Patient resting comfortably in bed. Patient complains of left sided abdominal pain. Patient denies shortness of breath, chest pain, nausea, vomiting , constipation, or diarrhea. Objective - Vital Signs/Intake and Output Vital Signs (last 24 hours): Temp Pulse Resp BP Pulse Ox 98.3 F 82 20 119/85 96 06/06/17 23:21 06/06/17 23:25 06/06/17 23:21 06/07/17 10:26 06/06/17 23:21 - Medications Medications: Current Medications Albuterol/Ipratropium (Duoneb 3 Mg/0.5 Mg (3 Ml) Ud) 3 ml INH RQ6 [facility] Last Admin: 06/07/17 13:06 Dose: Not Given Alprazolam (Xanax) 1 mg PO Q6H PRN PRN Reason: Anxiety Last Admin: 06/07/17 10:23 Dose: 1 mg Amiodarone HCl (Cordarone) 200 mg PO DAILY [facility] Last Admin: 06/07/17 10:26 Dose: 200 mg Aspirin (Ecotrin) 325 mg PO DAILY [facility] Last Admin: 06/07/17 10:23 Dose: 325 mg Carvedilol (Coreg) 12.5 mg PO BID [facility] Digoxin (Lanoxin) 0.125 mg PO DAILY@1000 [facility] Last Admin: 06/07/17 10:24 Dose: 0.125 mg Diltiazem HCl (Cardizem) 30 mg PO QID [facility] Last Admin: 06/07/17 15:04 Dose: 30 mg Enalapril Maleate (Vasotec) 10 mg PO DAILY [facility] Last Admin: 06/07/17 10:24 Dose: 10 mg Famotidine (Pepcid) 20 mg PO DAILY [facility] Last Admin: 06/07/17 10:22 Dose: 20 mg Fluoxetine HCl (Prozac) 40 mg PO DAILY [facility] Last Admin: 06/07/17 10:23 Dose: 40 mg Furosemide (Lasix) 40 mg IVP Q8H [facility] Last Admin: 06/07/17 10:25 Dose: 40 mg Gabapentin (Neurontin) 300 mg PO DAILY [facility] Last Admin: 06/07/17 10:23 Dose: 300 mg Gabapentin (Neurontin) 600 mg PO HS [facility] Last Admin: 06/06/17 21:16 Dose: 600 mg Hydrochlorothiazide (Hydrodiuril) 50 mg PO DAILY [facility] Last Admin: 06/07/17 10:23 Dose: 50 mg Metoprolol Tartrate (Lopressor) 25 mg PO BID [facility] Last Admin: 06/07/17 10:26 Dose: 25 mg Montelukast Sodium (Singulair) 10 mg PO HS [facility] Last Admin: 06/06/17 21:16 Dose: 10 mg Nicotine (Nicoderm Cq) 1 patch TD DAILY [facility] Last Admin: 06/07/17 10:22 Dose: 1 patch Oxycodone/Acetaminophen (Percocet 5/325 Mg Tab) 2 tab PO Q6H PRN PRN Reason: Pain, severe (8-10) Stop: 06/09/17 12:37 Last Admin: 06/07/17 12:19 Dose: 2 tab Rosuvastatin Calcium (Crestor) 5 mg PO HS [facility] Last Admin: 06/06/17 21:16 Dose: 5 mg Spironolactone (Aldactone) 25 mg PO DAILY [facility] Last Admin: 06/07/17 10:37 Dose: Not Given - Labs Labs: 06/07/17 07:56 06/07/17 07:56 PT 17.3 SECONDS (9.7-12.2) H 06/04/17 22:15 INR 1.5 06/04/17 22:15 APTT 37 SECONDS (21-34) H 06/04/17 22:15 - Constitutional Appears: Non-toxic, No Acute Distress - Head Exam Head Exam: ATRAUMATIC, NORMAL INSPECTION, NORMOCEPHALIC - Eye Exam Eye Exam: EOMI, Normal appearance, PERRL - ENT Exam ENT Exam: Mucous Membranes Dry - Neck Exam Neck Exam: Full ROM, Normal Inspection. absent: Lymphadenopathy - Respiratory Exam Respiratory Exam: Clear to Ausculation Bilateral, NORMAL BREATHING PATTERN. absent: Rales, Rhonchi, Wheezes, Respiratory Distress - Cardiovascular Exam Cardiovascular Exam: REGULAR RHYTHM, RRR - GI/Abdominal Exam GI & Abdominal Exam: Soft, Tenderness, Normal Bowel Sounds. absent: Distended, Guarding - Extremities Exam Extremities Exam: Full ROM, Normal Inspection - Back Exam Back Exam: NORMAL INSPECTION - Neurological Exam Neurological Exam: Alert, Awake, Oriented x3 - Psychiatric Exam Psychiatric exam: Normal Affect, Normal Mood - Skin Skin Exam: Warm Additional comments: scars from injection sites on arms, legs, and stomach Assessment and Plan - Assessment and Plan (Free Text) Assessment: Abdominal Pain * CT Abdomen & Pelvis w/ IV contrast: 1. The liver appears ill-defined and there is a question of subcapsular hematoma, versus motion artifact. Close clinical correlation is requested. 2. Spleen demonstrates a small fluid collection and a small amount of air adjacent and extending along the left inner portion of the abdominal wall. Unclear if this represents abscess or hematoma. Has there been recently the presence of a pigtail drainage catheter ? Please correlate clinically. 3. There is retroperitoneal lymphadenopathy. 4. There is harika mesentery, nonspecific but can be seen in lymphoma. Please correlate clinically. 5. There is trace perihepatic ascites and there is trace fluid in both paracolic gutters. This is abnormal though nonspecific. 6. Additional incidental and/or chronic findings as described. * Percocet 5/325 mg 2 tab po Q6h PRN for severe pain CHF Exacerbation * CXR: Cardiomegaly, venous congestion * BNP: 5720 * ECHO (02/2017): LV systolic function severely reduced. LV mildly dilated. Severe global hypokinesis of LV. Negative for endocarditis. 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 West (cardio)consulted, amiodarone 200mg daily started, lopressor 5mg IVP stat given, lopressor 25mg po BID * Enalapril 10 mg PO daily started 06/05 CAD * Crestor 5mg PO HS ARLENE * Pt denies using BIPAP at night * 2L O2 PRN Tobacco Use Disorder * Smoking Cessation * Nicoderm Patch Cocaine Use Disorder * UDS + for cocaine * HOLD BB Prophylactic Measures * GI PPX: Protonix 40mg PO daily * DVT PPX: SCDs, VTE c/i due to hx of splenic infarct <Roque Ocampo Jr. - Last Filed: 06/09/17 10:46> Objective - Vital Signs/Intake and Output Vital Signs (last 24 hours): Temp Pulse Resp BP Pulse Ox 97.5 F L 65 20 154/80 H 99 06/08/17 00:00 06/08/17 10:45 06/08/17 00:00 06/08/17 10:46 06/08/17 10:45 - Labs Labs: 06/08/17 08:43 06/08/17 08:43 PT 17.3 SECONDS (9.7-12.2) H 06/04/17 22:15 INR 1.5 06/04/17 22:15 APTT 37 SECONDS (21-34) H 06/04/17 22:15 Attending/Attestation - Attestation I have personally seen and examined this patient.: Yes I have fully participated in the care of the patient.: Yes I have reviewed all pertinent clinical information, including history, physical exam and plan: Yes Notes (Text): 06/09/17 10:45 Agree with resident note and findings
[2017-06-08] MEDS: Albuterol-Ipratrop 3 mg / 0.5 (3 ml) UD INH SCH (01:12)
[2017-06-08 01:45] VITALS: TEMP 97.5
[2017-06-08] MEDS: Oxycodone/Acetaminophen 5/325 mg Tab PO PRN ×3 (03:02→15:03)
--- NOTE | 2017-06-08 08:04 | CP.PCM.PN ---
Subjective - Date & Time of Evaluation Date of Evaluation: 06/08/17 Time of Evaluation: 07:15 - Subjective Subjective: Cardiology progress note for Dr. West Patient seen and examined at bedside. As per nursing, patient is refusing TELE monitor and certain medications. He was resting comfortably in bed this AM. When awakened he complained of pain in his spleen. He reports his legs are still swollen bilaterally but they are not painful. Patient denied any pain in his chest, SOB, cough, nausea, vomiting, bowel/bladder complaints. He continued to complain of anxiety. Objective - Vital Signs/Intake and Output Vital Signs (last 24 hours): Temp Pulse Resp BP Pulse Ox 97.5 F L 85 20 137/81 96 06/08/17 00:00 06/08/17 00:00 06/08/17 00:00 06/08/17 00:00 06/08/17 00:00 Intake and Output: 06/08/17 06/08/17 06:59 18:59 Output Total 460 Balance -460 - Medications Medications: Current Medications Albuterol/Ipratropium (Duoneb 3 Mg/0.5 Mg (3 Ml) Ud) 3 ml INH RQ6 [facility] Last Admin: 06/08/17 01:12 Dose: Not Given Amiodarone HCl (Cordarone) 200 mg PO DAILY [facility] Last Admin: 06/07/17 10:26 Dose: 200 mg Aspirin (Ecotrin) 325 mg PO DAILY [facility] Last Admin: 06/07/17 10:23 Dose: 325 mg Carvedilol (Coreg) 12.5 mg PO BID [facility] Digoxin (Lanoxin) 0.125 mg PO DAILY@1000 [facility] Last Admin: 06/07/17 10:24 Dose: 0.125 mg Diltiazem HCl (Cardizem) 30 mg PO QID [facility] Last Admin: 06/07/17 21:33 Dose: 30 mg Enalapril Maleate (Vasotec) 10 mg PO DAILY [facility] Last Admin: 06/07/17 10:24 Dose: 10 mg Famotidine (Pepcid) 20 mg PO DAILY [facility] Last Admin: 06/07/17 10:22 Dose: 20 mg Fluoxetine HCl (Prozac) 40 mg PO DAILY [facility] Last Admin: 06/07/17 10:23 Dose: 40 mg Furosemide (Lasix) 40 mg IVP Q8H [facility] Last Admin: 06/08/17 00:13 Dose: Not Given Gabapentin (Neurontin) 300 mg PO DAILY [facility] Last Admin: 06/07/17 10:23 Dose: 300 mg Gabapentin (Neurontin) 600 mg PO [facility] Last Admin: 06/07/17 21:33 Dose: 600 mg Hydrochlorothiazide (Hydrodiuril) 50 mg PO DAILY [facility] Last Admin: 06/07/17 10:23 Dose: 50 mg Lorazepam (Ativan) 1 mg IVP Q6H PRN PRN Reason: Anxiety Last Admin: 06/08/17 03:44 Dose: 1 mg Metoprolol Tartrate (Lopressor) 25 mg PO BID [facility] Last Admin: 06/07/17 17:38 Dose: 25 mg Montelukast Sodium (Singulair) 10 mg PO [facility] Last Admin: 06/07/17 21:33 Dose: 10 mg Nicotine (Nicoderm Cq) 1 patch TD DAILY [facility] Last Admin: 06/07/17 10:22 Dose: 1 patch Oxycodone/Acetaminophen (Percocet 5/325 Mg Tab) 2 tab PO Q6H PRN PRN Reason: Pain, severe (8-10) Stop: 06/09/17 12:37 Last Admin: 06/08/17 03:02 Dose: 2 tab Rosuvastatin Calcium (Crestor) 5 mg PO [facility] Last Admin: 06/07/17 21:33 Dose: 5 mg Spironolactone (Aldactone) 25 mg PO DAILY [facility] Last Admin: 06/07/17 10:37 Dose: Not Given - Labs Labs: 06/07/17 07:56 06/07/17 07:56 PT 17.3 SECONDS (9.7-12.2) H 06/04/17 22:15 INR 1.5 06/04/17 22:15 APTT 37 SECONDS (21-34) H 06/04/17 22:15 - Constitutional Appears: Chronically Ill - Head Exam Head Exam: ATRAUMATIC, NORMAL INSPECTION, NORMOCEPHALIC - Eye Exam Eye Exam: Normal appearance. absent: Conjunctival injection, Scleral icterus - ENT Exam ENT Exam: Mucous Membranes Dry - Respiratory Exam Respiratory Exam: Prolonged Expiratory Phase, Rales, Wheezes, NORMAL BREATHING PATTERN. absent: Accessory Muscle Use, Clear to Ausculation Bilateral, Rhonchi , Respiratory Distress - Cardiovascular Exam Cardiovascular Exam: Irregular Rhythm, +S1, +S2. absent: Bradycardia, Tachycardia - GI/Abdominal Exam GI & Abdominal Exam: Distended, Soft, Tenderness (diffuse). absent: Firm, Guarding, Rigid - Extremities Exam Extremities Exam: Pedal Edema - Neurological Exam Neurological Exam: Alert, Awake, Oriented x3 - Psychiatric Exam Additional comments: drowsy - Skin Skin Exam: Dry, Intact Assessment and Plan - Assessment and Plan (Free Text) Assessment: 46M with PMHx HTN, CAD, CHF, Afib, COPD, ARLENE, Herniated discs L-spine, Bipolar/ Depression, Asthma, hx of splenic infarct presented to the ED complaining of abdominal pain and SOB. Cardiology consulted for tachycardia. Plan: -Patient has hx of Atrial fibrillation and CHF -EKG on admission: Afib , Rate 118 on admission -Patient currently rate controlled on physical exam- refusing TELE -Anticoagulation is contraindicated due to patient's hx of splenic infarct -BNP 5720 -Echo (02/2017): LV systolic function severely reduced. LV mildly dilated. Severe global hypokinesis of LV. Negative for endocarditis. -Continue current management Amiodarone 200mg po daily ASA 325mg po daily Digoxin 0.125mg po daily Cardizem 30mg po qid Vasotec 10mg po daily Lasix 40mg ivp q8 HCTZ 50mg po daily Spironolactone 25mg po daily Crestor 5mg po hs -Monitor I's & O's -Restrict fluid intake -Measure daily weight Cardiology will continue to follow Case discussed with Dr. Jenna Mcgregor PGY2
[2017-06-08 08:54] LABS: BASO # 0.1 K/uL (0.0-0.2); BASO % 0.9 % (0.0-2.0); EOS # 0.3 K/uL (0.0-0.7); EOS % 2.6 % (0.0-4.0); LYMPH # 2.3 K/uL (1.0-4.3); LYMPH % 20.5 % (20.0-40.0); MEAN CELL VOLUME 81.7 fL (80.0-94.0); MEAN CORPUSCULAR HEMOGLOBIN 25.1 pg (27.0-31.0); MEAN CORPUSCULAR HGB CONC 30.7 g/dL (33.0-37.0); MEAN PLATELET VOLUME 7.8 fL (7.2-11.7); MONO # 1.3 K/uL (0.0-0.8); MONO % 11.7 % (0.0-10.0); NEUT # 7.1 K/uL (1.8-7.0); NEUT % 64.3 % (50.0-75.0); NRBC % 0.1 % (0.0-2.0); RBC 4.76 Mil/uL (4.40-5.90); RED CELL DISTRIBUTION WIDTH 19.3 % (11.5-14.5)
[2017-06-08 09:11] LABS: ALBUMIN 3.3 g/dL (3.5-5.0)
[2017-06-08 09:13] LABS: GFR AFRICAN-AMERICAN > 60; GFR NON-AFRICAN AMERICAN > 60
[2017-06-08 09:14] LABS: ALB/GLOB RATIO 0.8 (1.0-2.1); ALT/SGPT 39 U/L (21-72); AST/SGOT 40 U/L (17-59); BLOOD UREA NITROGEN 29 mg/dL (9-20)
[2017-06-08 09:15] LABS: CALCIUM 8.7 mg/dl (8.6-10.4); MAGNESIUM 1.8 mg/dL (1.6-2.3)
[2017-06-08] MEDS ORDERED: diltiaZEM 180 mg/24 Hours CD Cap PO SCH (10:15)
[2017-06-08] MEDS: Aspirin 325 mg EC Tablets PO SCH (10:46)
[2017-06-08] MEDS: Digoxin 125 mcg (0.125 mg) Tab PO SCH (10:47)
[2017-06-08 10:48] VITALS: BP 154/80; PULSE 64
--- NOTE | 2017-06-08 15:31 | PCM.HF ---
Heart Failure Core Measure - Heart Failure Ejection Fraction: Less Than 40 % SHONDA Inhibitor Prescribed: Yes Beta-Yonis Prescribed: Carvedilol Angiotensin II Receptor Yonis Prescribed: No Contraindication/Reason for not providing: on SHONDA AnticoagulationTherapy for Atrial Fibrillation/Atrialflutter: No Contraindication/Reason for not providing: contraindicated second to bleed in the past Aldosterone Antagonist Prescribed: Yes Hydralazine Nitrate Prescribed: Yes Implantable Cardioverter Defibrillator Therapy: No Contraindication/Reason for not providing: life vest Cardiac Resynchronization Therapy Prescribed: No Contraindication/Reason for not providing: life vest - Follow up Will be discharged to: Home Follow Up Date (must be within 7 days from discharge): 06/12/17 Follow Up Time: 09:00
[2017-06-08 18:29] VITALS: PULSE 65; O2SAT 99
--- NOTE | 2017-06-08 19:00 | CP.PCM.DIS ---
Provider - Provider Date of Admission: 06/05/17 00:46 Attending physician: Roque Ocampo Jr, MD Consults: Dr. West (cardiology) Time Spent in preparation of Discharge (in minutes): 45 Hospital Course - Lab Results Lab Results: Most Recent Lab Values WBC 11.0 K/uL (4.8-10.8) H 06/08/17 08:43 RBC 4.76 Mil/uL (4.40-5.90) 06/08/17 08:43 Hgb 12.0 g/dL (12.0-18.0) 06/08/17 08:43 Hct 38.9 % (35.0-51.0) 06/08/17 08:43 MCV 81.7 fL (80.0-94.0) 06/08/17 08:43 MCH 25.1 pg (27.0-31.0) L 06/08/17 08:43 MCHC 30.7 g/dL (33.0-37.0) L 06/08/17 08:43 RDW 19.3 % (11.5-14.5) H 06/08/17 08:43 Plt Count 286 K/uL (130-400) 06/08/17 08:43 MPV 7.8 fL (7.2-11.7) 06/08/17 08:43 Neut % (Auto) 64.3 % (50.0-75.0) 06/08/17 08:43 Lymph % (Auto) 20.5 % (20.0-40.0) 06/08/17 08:43 Shannon % (Auto) 11.7 % (0.0-10.0) H 06/08/17 08:43 Eos % (Auto) 2.6 % (0.0-4.0) 06/08/17 08:43 Baso % (Auto) 0.9 % (0.0-2.0) 06/08/17 08:43 Neut # 7.1 K/uL (1.8-7.0) H 06/08/17 08:43 Lymph # 2.3 K/uL (1.0-4.3) 06/08/17 08:43 Shannon # 1.3 K/uL (0.0-0.8) H 06/08/17 08:43 Eos # 0.3 K/uL (0.0-0.7) 06/08/17 08:43 Baso # 0.1 K/uL (0.0-0.2) 06/08/17 08:43 PT 17.3 SECONDS (9.7-12.2) H 06/04/17 22:15 INR 1.5 06/04/17 22:15 APTT 37 SECONDS (21-34) H 06/04/17 22:15 Sodium 133 mmol/L (132-148) 06/08/17 08:43 Potassium 4.6 mmol/L (3.6-5.2) 06/08/17 08:43 Chloride 96 mmol/L (98-107) L 06/08/17 08:43 Carbon Dioxide 30 mmol/L (22-30) 06/08/17 08:43 Anion Gap 11 (10-20) 06/08/17 08:43 BUN 29 mg/dL (9-20) H 06/08/17 08:43 Creatinine 1.0 MG/DL (0.8-1.5) 06/08/17 08:43 Est GFR ( Amer) > 60 06/08/17 08:43 Est GFR (Non-Af Amer) > 60 06/08/17 08:43 POC Glucose (mg/dL) 109 mg/dL (65-110) 06/05/17 13:57 Random Glucose 119 mg/dL (75-110) H 06/08/17 08:43 Calcium 8.7 mg/dl (8.6-10.4) 06/08/17 08:43 Phosphorus 4.9 mg/dL (2.5-4.5) H 06/08/17 08:43 Magnesium 1.8 mg/dL (1.6-2.3) 06/08/17 08:43 Total Bilirubin 0.7 mg/dL (0.2-1.3) 06/08/17 08:43 AST 40 U/L (17-59) 06/08/17 08:43 ALT 39 U/L (21-72) 06/08/17 08:43 Alkaline Phosphatase 65 U/L (38-126) 06/08/17 08:43 Troponin I 0.0480 ng/mL (0.00-0.120) 06/04/17 22:48 NT-Pro-B Natriuret Pep 5750 pg/mL (0-450) H 06/04/17 22:48 Total Protein 7.6 g/dL (6.3-8.3) 06/08/17 08:43 Albumin 3.3 g/dL (3.5-5.0) L 06/08/17 08:43 Globulin 4.3 gm/dL (2.2-3.9) H 06/08/17 08:43 Albumin/Globulin Ratio 0.8 (1.0-2.1) L 06/08/17 08:43 Lipase 175 U/L (23-300) 06/04/17 22:48 Urine Color Colorless (YELLOW) 06/05/17 06:50 Urine Clarity Clear (Clear) 06/05/17 06:50 Urine pH 6.0 (5.0-8.0) 06/05/17 06:50 Ur Specific [place] 1.006 (1.003-1.030) 06/05/17 06:50 Urine Protein Negative mg/dL (NEGATIVE) 06/05/17 06:50 Urine Glucose (UA) Normal mg/dL (Normal) 06/05/17 06:50 Urine Ketones Negative mg/dL (NEGATIVE) 06/05/17 06:50 Urine Blood Negative (NEGATIVE) 06/05/17 06:50 Urine Nitrate Negative (NEGATIVE) 06/05/17 06:50 Urine Bilirubin Negative (NEGATIVE) 06/05/17 06:50 Urine Urobilinogen Normal mg/dL (0.2-1.0) 06/05/17 06:50 Ur Leukocyte Esterase Neg Nancie/uL (Negative) 06/05/17 06:50 Urine WBC (Auto) < 1 /hpf (0-5) 06/05/17 06:50 Digoxin < 0.4 ng/mL (0.8-2.0) L 06/04/17 22:59 Urine Opiates Screen Negative (NEGATIVE) 06/05/17 06:50 Urine Methadone Screen Negative (NEGATIVE) 06/05/17 06:50 Ur Barbiturates Screen Negative (NEGATIVE) 06/05/17 06:50 Ur Phencyclidine Scrn Negative (NEGATIVE) 06/05/17 06:50 Ur Amphetamines Screen Negative (NEGATIVE) 06/05/17 06:50 U Benzodiazepines Scrn Negative (NEGATIVE) 06/05/17 06:50 U Oth Cocaine Metabols Positive (NEGATIVE) 06/05/17 06:50 U Cannabinoids Screen Negative (NEGATIVE) 06/05/17 06:50 - Hospital Course Hospital Course: CC: Abdominal pain and SOB HPI: 46M with PMHx as below presented to the ED complaining of abdominal pain and SOB. Patient reports the abdominal pain started yesterday morning. Pain was sharp in nature, localized to the left side of his abdomen radiating to the left flank. Patient reported speaking to Dr. Ocampo, was told to increase his lasix dose, but the patient's SOB did not improve. Denied fever, chills, headache, chest pain, n/v/d/c, or urinary symptoms. Patient has hx of Atrial fibrillation and CHF. EKG on admission showed Afib , Rate 118. Anticoagulation was contraindicated due to patient's hx of splenic infarct BNP was 5720 and Echo (02/2017) showed LV systolic function severely reduced. LV mildly dilated. Severe global hypokinesis of LV. Negative for endocarditis. On 06/05 a Rapid Response called at 13:54 for tachycardia. Patient given cardizem 5mg ivpush given before rapid called. Patient aggravated and pulse stayed high. Cardizem 10 mg iv push given at 13:57. Patient's pulse and blood pressure still high so Cardizem 10mg iv push given at 14:09. Patient started to calm down and blood pressure and heart rate decreased. CT Abdomen & Pelvis w/ IV contrast: 1. The liver appears ill-defined and there is a question of subcapsular hematoma , versus motion artifact. Close clinical correlation is requested. 2. Spleen demonstrates a small fluid collection and a small amount of air adjacent and extending along the left inner portion of the abdominal wall. Unclear if this represents abscess or hematoma. Has there been recently the presence of a pigtail drainage catheter? Please correlate clinically. 3. There is retroperitoneal lymphadenopathy. 4. There is harika mesentery, nonspecific but can be seen in lymphoma. Please correlate clinically. 5. There is trace perihepatic ascites and there is trace fluid in both paracolic gutters. This is abnormal though nonspecific. 6. Additional incidental and/or chronic findings as described. Patients heart rate controlled with medications. Patient feeling better and will continue to follow up with Dr. Ocampo. Patient cleared for discharge as per Dr. Ocampo. This is a summary of the hospital stay. Please see chart for details. Discharge Exam - Head Exam Head Exam: ATRAUMATIC, NORMAL INSPECTION, NORMOCEPHALIC - Eye Exam Eye Exam: EOMI, Normal appearance, PERRL - ENT Exam ENT Exam: Mucous Membranes Moist - Neck Exam Neck exam: Full Rom - Respiratory Exam Respiratory Exam: Clear to PA & Lateral, NORMAL BREATHING PATTERN, UNREMARKABLE - Cardiovascular Exam Cardiovascular Exam: REGULAR RHYTHM, RRR - GI/Abdominal Exam GI & Abdominal Exam: Distended, Normal Bowel Sounds. absent: Firm, Guarding - Extremities Exam Extremities exam: normal inspection - Back Exam Back exam: NORMAL INSPECTION - Neurological Exam Neurological exam: Alert, Oriented x3 - Psychiatric Exam Psychiatric exam: Normal Affect, Normal Mood - Skin Skin Exam: Intact, Warm Additional comments: scars on upper and lower extremities and stomach from drug abuse Discharge Plan - Discharge Medications Prescriptions: Amiodarone HCl [Pacerone] 200 mg PO DAILY #30 tablet - Follow Up Plan Condition: FAIR Disposition: HOME/ ROUTINE Instructions: Amiodarone (By mouth), Heart Failure (DC), Non-pharmacological Pain Management Therapies for Adults (GEN), Chronic Pain (DC), Dyspnea (GEN), Anxiety (DC) Additional Instructions: Patient cleared for discharge as per Dr. Ocampo. Patient to follow up with Dr. Ocampo within one week of discharge. Patient to continue home medications and to start Amiodarone HCL 200 mg PO daily. If symptoms worsen or return please return to Emergency Room Immediately. Patient explained instructions who understands and agrees. Referrals: Roque Ocampo Jr., MD [Medical Doctor] -
== END 2017-06-08 16:50 | disposition home or self-care (01) | DRG 293 ==
LOC: C.ER 21:49 → C.9E 06-05 00:46 → C.5T 06-05 08:32
PROVIDERS: ADMIT Internal Medicine; ATTEND Internal Medicine
DX: I11.0 Hypertensive heart disease with heart failure (principal); I48.91 Unspecified atrial fibrillation; F31.9 Bipolar disorder, unspecified; F41.9 Anxiety disorder, unspecified; R10.9 Unspecified abdominal pain; I50.9 Heart failure, unspecified; J44.9 Chronic obstructive pulmonary disease, unspecified; I25.10 Atherosclerotic heart disease of native coronary artery without angina pectoris; G47.33 Obstructive sleep apnea (adult) (pediatric); R59.0 Localized enlarged lymph nodes; F14.90 Cocaine use, unspecified, uncomplicated; E78.00 Pure hypercholesterolemia, unspecified; Z79.82 Long term (current) use of aspirin; Z82.5 Family history of asthma and other chronic lower respiratory diseases; Z72.0 Tobacco use; Z79.899 Other long term (current) drug therapy; Z95.5 Presence of coronary angioplasty implant and graft

== ENCOUNTER 2017-06-18 11:39 | Inpatient (IN) | payer MEDICARE, MEDICAID ==
[2017-06-18 11:42] VITALS: BMI 38.7
--- NOTE | 2017-06-18 12:03 | C.PDOC ---
History Of Present Illness Patient is a 46 y/o male brought in by EMS presents to ED with complaints of retaining too much water and respiratory distress. Pt states he took 80 mg Lasix without relief. He complains of feeling SOB and bilateral leg swelling for the past 2 weeks. EMS arrived, O2 sat was 92 on room air. 1 spray of sublingual nitro given, patient did not tolerate c-pap mask. Pt feeling anxious. Denies chest pain, vomiting, fever or any other complaints. PMHx CHF, Afib, 4 stents, asthma, ascites and anxiety. SOCHx former smoker. FAMHx CAD, diabetes. PMD [place]. Time Seen by Provider: 06/18/17 11:45 Chief Complaint (Nursing): Shortness Of Breath History Per: Patient History/Exam Limitations: no limitations Onset/Duration Of Symptoms: Days Current Symptoms Are (Timing): Still Present Severity: Moderate Associated Symptoms: Ankle/Leg Swelling. denies: Fever, Chest Pain Recent travel outside of the [place]: No Past Medical History Reviewed: Historical Data, Nursing Documentation, Vital Signs Vital Signs: Last Vital Signs Temp 97.5 F L 06/20/17 07:36 Pulse 55 L 06/20/17 13:11 Resp 20 06/20/17 07:36 BP 136/72 06/20/17 13:11 Pulse Ox 96 06/20/17 07:36 - Medical History PMH: Anxiety, Asthma, Atrial Fibrillation, Back Problems, Bipolar Disorder, CAD , Cardia Arrhythmia, CHF, COPD, Depression, Emphysema, HTN, Hypercholesterolemia , Peripheral Edema, Sleep Apnea, Chronic Pain (Lower Back Pain) Surgical History: Appendectomy (2008), Coronary Stent (2008 - 2012 4 stents) - [facility] Procedures CORONAR ARTERIOGR-2 CATH (07/06/13) DRAINAGE OF SPLEEN, PERCUTANEOUS APPROACH (03/05/17) INJECT/INFUSE NEC (02/22/14) LEFT HEART CARDIAC CATH (07/06/13) LT HEART ANGIOCARDIOGRAM (07/06/13) NEBULIZER THERAPY (03/28/14) NON-INVASIVE MECHANICAL VENTILATION (03/26/15) TRANSFUSE NONAUT FROZEN PLASMA IN PERIPH VEIN, PERC (02/21/17) Family History: States: Unknown Family Hx, CAD, Diabetes - Social History Hx Tobacco Use: Yes Hx Alcohol Use: No (social) Hx Substance Use: No (coccaine) - Immunization History Hx Tetanus Toxoid Vaccination: Yes Hx Influenza Vaccination: Yes Hx Pneumococcal Vaccination: Yes (08/2014) Review Of Systems Except As Marked, All Systems Reviewed And Found Negative. Constitutional: Negative for: Fever Cardiovascular: Negative for: Chest Pain Respiratory: Positive for: Shortness of Breath Gastrointestinal: Negative for: Vomiting Musculoskeletal: Positive for: Other (bilateral leg swelling) Physical Exam - Physical Exam Appears: Non-toxic, Other (some resp distress) Skin: Warm, Dry, No Rash Head: Atraumatic, Normacephalic Eye(s): bilateral: Normal Inspection, EOMI Ear(s): Bilateral: Normal, TM Dull Nose: Normal Oral Mucosa: Moist Tongue: Normal Appearing Lips: Normal Appearing Throat: Normal Neck: Normal, Normal ROM, Supple Chest: Symmetrical, No Tenderness Cardiovascular: Rhythm Irregular, No Murmur Respiratory: Decreased Breath Sounds (at the bases), No Rhonchi, No Wheezing, Other (crackles bilaterally) Gastrointestinal/Abdominal: Bowel Sounds, Soft, No Tenderness, Ascites Male Genital: Normal Inspection Extremity: No Calf Tenderness, Swelling (pitting edema bilateral lower extremities) Pulses: Left Dorsalis Pedis: Normal, Right Dorsalis Pedis: Normal Neurological/Psych: Oriented x3, Normal Speech, Normal Cognition ED Course And Treatment - Laboratory Results Result Diagrams: 06/20/17 07:19 06/20/17 07:19 O2 Sat by Pulse Oximetry: 95 Pulse Ox Interpretation: Normal Medical Decision Making Medical Decision Making: Initial Impression: CHF Exacerbation Initial Plan: Will give oxygen (vapotherm), additional lasix, check labs, CXR Progress notes: Pt feeling slightly improved but still SOB. Will need admission. Pt endorsed to Dr. Renzo Razo. Disposition - Disposition Disposition: HOSPITALIZED Disposition Time: 14:18 Condition: FAIR - POA Present On Arrival: None - Clinical Impression Clinical Impression: CHF (congestive heart failure), Ascites, Anxiety - Scribe Statement The provider has reviewed the documentation as recorded by the Lashawnibpradeep Landa Provider Attestation: All medical record entries made by the Scribe were at my direction and personally dictated by me. I have reviewed the chart and agree that the record accurately reflects my personal performance of the history, physical exam, medical decision making, and the department course for this patient. I have also personally directed, reviewed, and agree with the discharge instructions and disposition. Decision To Admit - Pt Status Changed To: Hospital Disposition Of: Inpatient - Admit Certification Admit to Inpatient:: After my assessment, the patient will require hospitalization for at least two midnights. This is because of the severity of symptoms shown, intensity of services needed, and/or the medical risk in this patient being treated as an outpatient. - InPatient: Physician Admission Certification: I certify that this patient requires 2 or more midnights of care for the following reason:: Patient failing outpatient treatment for CHF - . Bed Request Type: Telemetry Patient Diagnosis: CHF (congestive heart failure), Ascites, Anxiety
--- NOTE | 2017-06-18 12:14 | RAD ---
HISTORY: SOB COMPARISON: Chest x-ray performed 06/04/17 TECHNIQUE: Chest, one view. FINDINGS: LUNGS: Moderate interstitial prominence may reflect infection or edema, similar to prior study. Probable small left consolidation or effusion. No definite pneumothorax. Please note that chest x-ray has limited sensitivity for the detection of pulmonary masses. CARDIOVASCULAR: Cardiomegaly. OSSEOUS STRUCTURES: Degenerative changes. VISUALIZED UPPER ABDOMEN: Unremarkable. OTHER FINDINGS: None. IMPRESSION: Moderate interstitial prominence may reflect infection or edema, similar to prior study. Probable small left consolidation or effusion. Cardiomegaly.
[2017-06-18 12:28] LABS: BASO % 0.2 % (0.0-2.0); EOS # 0.3 K/uL (0.0-0.7); EOS % 2.5 % (0.0-4.0); HEMOGLOBIN 12.3 g/dL (12.0-18.0); LYMPH # 1.4 K/uL (1.0-4.3); LYMPH % 12.6 % (20.0-40.0); MEAN CELL VOLUME 80.2 fL (80.0-94.0); MEAN CORPUSCULAR HEMOGLOBIN 24.6 pg (27.0-31.0); MEAN CORPUSCULAR HGB CONC 30.7 g/dL (33.0-37.0); MEAN PLATELET VOLUME 7.3 fL (7.2-11.7); MONO # 1.1 K/uL (0.0-0.8); MONO % 9.7 % (0.0-10.0); NEUT # 8.2 K/uL (1.8-7.0); RBC 4.99 Mil/uL (4.40-5.90); RED CELL DISTRIBUTION WIDTH 18.8 % (11.5-14.5)
[2017-06-18 12:45] LABS: ALBUMIN 3.6 g/dL (3.5-5.0)
[2017-06-18 12:48] LABS: ALB/GLOB RATIO 0.8 (1.0-2.1); AST/SGOT 33 U/L (17-59); GFR AFRICAN-AMERICAN > 60; GFR NON-AFRICAN AMERICAN > 60
[2017-06-18 12:49] LABS: ALT/SGPT 25 U/L (21-72); BLOOD UREA NITROGEN 23 mg/dL (9-20); CALCIUM 8.4 mg/dl (8.6-10.4)
[2017-06-18 12:57] LABS: B-TYPE NATRIURETIC PEPTIDE 11100 pg/mL (0-450)
[2017-06-18] MEDS ORDERED: Digoxin 500 mcg/2ml (0.5 mg/2ml) Inj IVP ONE (14:12)
[2017-06-18 14:13] LABS: URINE BILIRUBIN NEGATIVE (NEGATIVE); URINE BLOOD NEGATIVE (NEGATIVE); URINE CLARITY Clear (Clear); URINE COLOR Straw (YELLOW); URINE GLUCOSE (UA) NORMAL (Normal); URINE LEUKOCYTE ESTERASE NEG Leu/uL (Negative); URINE NITRATE NEGATIVE (NEGATIVE); URINE PROTEIN NEGATIVE (NEGATIVE); URINE UROBILINOGEN NORMAL mg/dL (0.2-1.0)
[2017-06-18] MEDS ORDERED: Digoxin 500 mcg/2ml (0.5 mg/2ml) Inj ONE (15:49)
[2017-06-18] MEDS ORDERED: FLUOXETINE HCL 40 MG PO SCH (17:15)
[2017-06-18] MEDS: Oxycodone/Acetaminophen 5/325 mg Tab PO PRN ×2 (18:11→22:24)
[2017-06-18] MEDS: Digoxin 125 mcg (0.125 mg) Tab PO SCH (18:13)
[2017-06-18] MEDS: Potassium Chloride 20 mEq ER Tab PO SCH (18:13)
[2017-06-18] MEDS: Aspirin 325 mg EC Tablets PO SCH (18:14)
--- NOTE | 2017-06-18 20:23 | CP.PCM.HP ---
Past Patient History - Infectious Disease Hx of Infectious Diseases: None - Tetanus Immunizations Tetanus Immunization: Up to Date - Past Medical History & Family History Past Medical History?: Yes - Past Social History Smoking Status: Former Smoker - CARDIAC Hx Atrial Fibrillation: Yes Hx Cardia Arrhythmia: Yes Hx Congestive Heart Failure: Yes Hx Hypercholesterolemia: Yes Hx Hypertension: Yes Hx Peripheral Edema: Yes - PULMONARY Hx Asthma: Yes Hx Chronic Obstructive Pulmonary Disease (COPD): Yes Hx Emphysema: Yes Hx Sleep Apnea: Yes - NEUROLOGICAL Hx Neurological Disorder: No - HEENT Hx HEENT Problems: No - RENAL Hx Chronic Kidney Disease: No - ENDOCRINE/METABOLIC Hx Endocrine Disorders: No - HEMATOLOGICAL/ONCOLOGICAL Hx Blood Disorders: Yes Other/Comment: MRSA Hx - INTEGUMENTARY Hx Dermatological Problems: No - MUSCULOSKELETAL/RHEUMATOLOGICAL Hx Musculoskeletal Disorders: Yes - GASTROINTESTINAL Hx Gastrointestinal Disorders: Yes Other/Comment: Splenic Hematoma - GENITOURINARY/GYNECOLOGICAL Hx Genitourinary Disorders: No - PSYCHIATRIC Hx Anxiety: Yes Hx Bipolar Disorder: Yes Hx Depression: Yes Hx Substance Use: No (coccaine) - SURGICAL HISTORY Hx Appendectomy: Yes (2008) Hx Coronary Stent: Yes (2008 - 2012 4 stents) - ANESTHESIA Hx Anesthesia: Yes Hx Anesthesia Reactions: No Hx Malignant Hyperthermia: No Meds Allergies/Adverse Reactions: Allergies Allergy/AdvReac Type Severity Reaction Status Date / Time apixaban [From Eliquis] Allergy RASH Verified 06/18/17 11:41 clopidogrel bisulfate Allergy RASH Verified 06/18/17 11:41 [From Plavix] enoxaparin sodium Allergy RASH Verified 06/18/17 11:41 [From Lovenox] morphine Allergy RASH Verified 06/18/17 11:41 Physical Exam - Constitutional Appears: Well - Head Exam Head Exam: ATRAUMATIC, NORMAL INSPECTION, NORMOCEPHALIC - Eye Exam Eye Exam: EOMI, Normal appearance, PERRL Pupil Exam: NORMAL ACCOMODATION, PERRL - ENT Exam ENT Exam: Mucous Membranes Moist, Normal Exam - Neck Exam Neck exam: Positive for: Normal Inspection - Respiratory Exam Respiratory Exam: Decreased Breath Sounds - Cardiovascular Exam Cardiovascular Exam: REGULAR RHYTHM, +S1, +S2 - GI/Abdominal Exam GI & Abdominal Exam: Diminished Bowel Sounds, Soft - Rectal Exam Rectal Exam: Deferred Results - Vital Signs Recent Vital Signs: Last Vital Signs Temp 97.3 F L 06/18/17 16:52 Pulse 100 H 06/18/17 16:52 Resp 18 06/18/17 16:52 BP 159/121 H 06/18/17 18:17 Pulse Ox 97 06/18/17 16:52 - Labs Result Diagrams: 06/18/17 12:24 06/18/17 12:24 Labs: Laboratory Results - last 24 hr 06/18/17 16:53 POC Glucose (mg/dL) 90
[2017-06-19] MEDS: Oxycodone/Acetaminophen 5/325 mg Tab PO PRN ×5 (04:18→23:55)
[2017-06-19] MEDS: Albuterol-Ipratrop 3 mg / 0.5 (3 ml) UD INH SCH ×5 (06:09→21:25)
--- NOTE | 2017-06-19 07:08 | CP.PCM.CON ---
History of Present Illness - History of Present Illness History of Present Illness: Cardiology Consult note for Dr. West Reason for consult: CHF 46M PMHx HTN, CAD, CHF, Afib, COPD, ARLENE, Herniated discs L-spine, Bipolar/ Depression, Asthma, hx of splenic infarct, well known to service, presenting to ER with SOB. Cardiology consulted for CHF management. Patient reported last use of cocaine was 2 weeks ago. He reported his SOB, b/l leg swelling, and abdominal "swelling because of his spleen" had worsened in the past 2 weeks which is why he came in. As per nursing patient was refusing TELE monitor, labs [JOSE etc] and lasix and was constantly requesting anxiety medication and Ativan. Patient denied headache, dizziness, chest pain, palpitations, cough, nausea, vomiting, bowel/bladder complaints. He admitted to SOB, abdominal pain, pain/swelling in his legs. PMHx: HTN, CAD, CHF, Afib, COPD, ARLENE, Herniated discs L-spine, Bipolar/ Depression, Asthma, hx of splenic infarct Meds: Diltiazem, ASA, Carvedilol, digoxin, enalapril, HCTZ, k-dur, Lasix, Albuterol, Prozac, Simvastatin, Montelukast, Tizanidine, Xanax, Gabapentin. ALL: Apixaban, clopidogrel, enoxaparin, Morphine PSurgHx: Appendectomy (2008), Coronary stents x4 ([id number]) PHosp: multiple admissions recently for SOB, splenic hematoma and bacteremia FamHx: Denies SocialHx: Denies tobacco use- wears a nicotine patch. Social alcohol use; Admits to Cocaine use Review of Systems - Constitutional Constitutional: As Per HPI. absent: Chills, Fever - EENT Eyes: As Per HPI. absent: Blurred Vision Ears: As Per HPI. absent: Dizziness - Cardiovascular Cardiovascular: As Per HPI, Dyspnea, Dyspnea on Exertion, Edema, Pedal Edema. absent: Chest Pain - Respiratory Respiratory: As Per HPI, Dyspnea, Dyspnea on Exertion. absent: Cough - Gastrointestinal Gastrointestinal: As Per HPI, Abdominal Pain. absent: Constipation, Diarrhea, Nausea, Vomiting - Musculoskeletal Musculoskeletal: As Per HPI. absent: Back Pain, Numbness, Tingling - Psychiatric Psychiatric: As Per HPI, Anxiety Past Patient History - Infectious Disease Hx of Infectious Diseases: None - Tetanus Immunizations Tetanus Immunization: Up to Date - Past Medical History & Family History Past Medical History?: Yes - Past Social History Smoking Status: Former Smoker - CARDIAC Hx Atrial Fibrillation: Yes Hx Cardia Arrhythmia: Yes Hx Congestive Heart Failure: Yes Hx Hypercholesterolemia: Yes Hx Hypertension: Yes Hx Peripheral Edema: Yes - PULMONARY Hx Asthma: Yes Hx Chronic Obstructive Pulmonary Disease (COPD): Yes Hx Emphysema: Yes Hx Sleep Apnea: Yes - NEUROLOGICAL Hx Neurological Disorder: No - HEENT Hx HEENT Problems: No - RENAL Hx Chronic Kidney Disease: No - ENDOCRINE/METABOLIC Hx Endocrine Disorders: No - HEMATOLOGICAL/ONCOLOGICAL Hx Blood Disorders: Yes Other/Comment: MRSA Hx - INTEGUMENTARY Hx Dermatological Problems: No - MUSCULOSKELETAL/RHEUMATOLOGICAL Hx Musculoskeletal Disorders: Yes - GASTROINTESTINAL Hx Gastrointestinal Disorders: Yes Other/Comment: Splenic Hematoma - GENITOURINARY/GYNECOLOGICAL Hx Genitourinary Disorders: No - PSYCHIATRIC Hx Anxiety: Yes Hx Bipolar Disorder: Yes Hx Depression: Yes Hx Substance Use: No (coccaine) - SURGICAL HISTORY Hx Appendectomy: Yes (2008) Hx Coronary Stent: Yes (2008 - 2012 4 stents) - ANESTHESIA Hx Anesthesia: Yes Hx Anesthesia Reactions: No Hx Malignant Hyperthermia: No Meds Allergies/Adverse Reactions: Allergies Allergy/AdvReac Type Severity Reaction Status Date / Time apixaban [From Eliquis] Allergy RASH Verified 06/18/17 11:41 clopidogrel bisulfate Allergy RASH Verified 06/18/17 11:41 [From Plavix] enoxaparin sodium Allergy RASH Verified 06/18/17 11:41 [From Lovenox] morphine Allergy RASH Verified 06/18/17 11:41 - Medications Medications: Current Medications Albuterol/Ipratropium (Duoneb 3 Mg/0.5 Mg (3 Ml) Ud) 3 ml INH RQ6 [facility] Last Admin: 06/19/17 06:09 Dose: Not Given Alprazolam (Xanax) 1 mg PO TID PRN PRN Reason: Anxiety Last Admin: 06/19/17 04:20 Dose: 1 mg Amiodarone HCl (Cordarone) 200 mg PO DAILY [facility] Aspirin (Ecotrin) 325 mg PO DAILY [facility] Last Admin: 06/18/17 18:14 Dose: 325 mg Carvedilol (Coreg) 12.5 mg PO BID [facility] Last Admin: 06/18/17 18:17 Dose: 12.5 mg Digoxin (Lanoxin) 0.125 mg PO DAILY@1800 [facility] Last Admin: 06/18/17 18:13 Dose: 0.125 mg Diltiazem HCl (Cardizem) 30 mg PO QID [facility] Last Admin: 06/18/17 22:21 Dose: 30 mg Enalapril Maleate (Vasotec) 10 mg PO DAILY [facility] Last Admin: 06/18/17 18:13 Dose: 10 mg Furosemide (Lasix) 40 mg IVP BID [facility] Last Admin: 06/18/17 18:30 Dose: Not Given Gabapentin (Neurontin) 300 mg PO TID [facility] Last Admin: 06/18/17 18:11 Dose: 300 mg Heparin Sodium (Porcine) (Heparin) 5,000 units SC Q12 [facility] Home Med (Budesonide/Formoterol Fumarate [Symbicort 160-4.5 Mcg Inhaler]) 1 aer IH BID [facility] Hydralazine HCl (Apresoline) 25 mg PO DAILY [facility] Last Admin: 06/18/17 18:15 Dose: 25 mg Hydrochlorothiazide (Hydrodiuril) 50 mg PO DAILY [facility] Last Admin: 06/18/17 18:30 Dose: Not Given Ibuprofen (Motrin Tab) 800 mg PO Q6 [facility] Last Admin: 06/19/17 00:38 Dose: 800 mg Montelukast Sodium (Singulair) 10 mg PO HS [facility] Last Admin: 06/18/17 22:21 Dose: 10 mg Oxycodone/Acetaminophen (Percocet 5/325 Mg Tab) 1 tab PO Q4 PRN PRN Reason: Pain, severe (8-10) Stop: 06/21/17 17:55 Last Admin: 06/19/17 04:18 Dose: 1 tab Potassium Chloride (K-Dur 20 Meq Er Tab) 20 meq PO DAILY [facility] Last Admin: 06/18/17 18:13 Dose: 20 meq Rosuvastatin Calcium (Crestor) 5 mg PO HS [facility] Last Admin: 06/18/17 22:21 Dose: 5 mg Spironolactone (Aldactone) 25 mg PO DAILY [facility] Last Admin: 06/18/17 18:14 Dose: 25 mg Physical Exam - Constitutional Appears: No Acute Distress, Chronically Ill - Head Exam Head Exam: ATRAUMATIC, NORMOCEPHALIC - Eye Exam Eye Exam: Normal appearance. absent: Conjunctival injection, Scleral icterus - ENT Exam ENT Exam: Mucous Membranes Moist - Respiratory Exam Respiratory Exam: NORMAL BREATHING PATTERN. absent: Accessory Muscle Use, Respiratory Distress - Cardiovascular Exam Cardiovascular Exam: Irregular Rhythm, +S1, +S2 - GI/Abdominal Exam GI & Abdominal Exam: Distended, Tenderness. absent: Rigid - Extremities Exam Extremities exam: Positive for: pedal edema (+3 b/l) - Neurological Exam Neurological exam: Alert, Oriented x3 Results - Vital Signs Recent Vital Signs: Last Vital Signs Temp 97.4 F L 06/18/17 23:38 Pulse 74 06/18/17 23:38 Resp 22 06/18/17 23:38 BP 159/121 H 06/18/17 18:17 Pulse Ox 97 06/18/17 23:38 - Labs Result Diagrams: 06/18/17 12:24 06/18/17 12:24 Labs: Laboratory Results - last 24 hr 06/18/17 16:53 POC Glucose (mg/dL) 90
[2017-06-19] MEDS ORDERED: Home Med 1 UNIT (Budesonide/Formoterol Fumarate [Symbicort 160-4.5 Mcg Inhaler] 1 AER) IH SCH (10:00)
[2017-06-19] MEDS: Aspirin 325 mg EC Tablets PO SCH (11:19)
[2017-06-19] MEDS: Potassium Chloride 20 mEq ER Tab PO SCH (11:24)
--- NOTE | 2017-06-19 13:02 | CARD ---
APPROVED REPORT EKG Measurement Heart [id number] <Conclusion> Atrial fibrillation with rapid ventricular response Pulmonary disease pattern Incomplete right bundle branch block Left anterior fascicular block Inferior infarct, age undetermined ST & T wave abnormality, consider lateral ischemia Abnormal ECG
[2017-06-19] MEDS: Digoxin 125 mcg (0.125 mg) Tab PO SCH (17:18)
[2017-06-19 17:21] VITALS: PULSE 70
--- NOTE | 2017-06-19 17:38 | CP.PCM.PN ---
Subjective - Date & Time of Evaluation Date of Evaluation: 06/19/17 Time of Evaluation: 11:20 - Subjective Subjective: clinically same Objective - Vital Signs/Intake and Output Vital Signs (last 24 hours): Temp Pulse Resp BP Pulse Ox 98.2 F 65 20 119/62 96 06/19/17 16:00 06/19/17 16:00 06/19/17 16:00 06/19/17 17:19 06/19/17 16:00 Intake and Output: 06/19/17 06/19/17 06:59 18:59 Intake Total 1440 Balance 1440 - Medications Medications: Current Medications Albuterol/Ipratropium (Duoneb 3 Mg/0.5 Mg (3 Ml) Ud) 3 ml INH RQ6 [facility] Last Admin: 06/19/17 13:08 Dose: Not Given Alprazolam (Xanax) 1 mg PO Q6H PRN PRN Reason: Anxiety Last Admin: 06/19/17 15:26 Dose: 1 mg Amiodarone HCl (Cordarone) 200 mg PO DAILY [facility] Last Admin: 06/19/17 11:26 Dose: Not Given Aspirin (Ecotrin) 325 mg PO DAILY [facility] Last Admin: 06/19/17 11:19 Dose: 325 mg Carvedilol (Coreg) 12.5 mg PO BID [facility] Last Admin: 06/19/17 17:19 Dose: 12.5 mg Digoxin (Lanoxin) 0.125 mg PO DAILY@1800 [facility] Last Admin: 06/19/17 17:18 Dose: 0.125 mg Diltiazem HCl (Cardizem) 30 mg PO QID [facility] Last Admin: 06/19/17 17:25 Dose: 30 mg Enalapril Maleate (Vasotec) 10 mg PO DAILY [facility] Last Admin: 06/19/17 11:25 Dose: 10 mg Fluoxetine HCl (Prozac) 40 mg PO DAILY [facility] Last Admin: 06/19/17 12:06 Dose: 40 mg Furosemide (Lasix) 40 mg IVP BID [facility] Last Admin: 06/19/17 17:20 Dose: Not Given Gabapentin (Neurontin) 300 mg PO TID [facility] Last Admin: 06/19/17 17:25 Dose: 300 mg Heparin Sodium (Porcine) (Heparin) 5,000 units SC Q12 [facility] Last Admin: 06/19/17 11:26 Dose: Not Given Home Med (Budesonide/Formoterol Fumarate [Symbicort 160-4.5 Mcg Inhaler]) 1 aer IH BID [facility] Hydralazine HCl (Apresoline) 25 mg PO DAILY [facility] Last Admin: 06/19/17 11:23 Dose: 25 mg Hydrochlorothiazide (Hydrodiuril) 50 mg PO DAILY [facility] Last Admin: 06/19/17 11:23 Dose: 50 mg Ibuprofen (Motrin Tab) 800 mg PO Q6 [facility] Last Admin: 06/19/17 17:20 Dose: Not Given Montelukast Sodium (Singulair) 10 mg PO HS [facility] Last Admin: 06/18/17 22:21 Dose: 10 mg Nicotine (Nicoderm Cq) 1 patch TD DAILY [facility] Last Admin: 06/19/17 12:07 Dose: 1 patch Oxycodone/Acetaminophen (Percocet 5/325 Mg Tab) 1 tab PO Q4 PRN PRN Reason: Pain, severe (8-10) Stop: 06/21/17 17:55 Last Admin: 06/19/17 15:26 Dose: 1 tab Potassium Chloride (K-Dur 20 Meq Er Tab) 20 meq PO DAILY [facility] Last Admin: 06/19/17 11:24 Dose: 20 meq Rosuvastatin Calcium (Crestor) 5 mg PO HS [facility] Last Admin: 06/18/17 22:21 Dose: 5 mg Spironolactone (Aldactone) 25 mg PO DAILY [facility] Last Admin: 06/19/17 11:24 Dose: 25 mg - Constitutional Appears: Well - Head Exam Head Exam: ATRAUMATIC, NORMAL INSPECTION, NORMOCEPHALIC - Eye Exam Eye Exam: EOMI, Normal appearance, PERRL Pupil Exam: NORMAL ACCOMODATION, PERRL - ENT Exam ENT Exam: Mucous Membranes Moist, Normal Exam - Neck Exam Neck Exam: Full ROM, Normal Inspection. absent: Lymphadenopathy - Respiratory Exam Respiratory Exam: Decreased Breath Sounds - Cardiovascular Exam Cardiovascular Exam: REGULAR RHYTHM, +S1, +S2 - GI/Abdominal Exam GI & Abdominal Exam: Soft, Diminished Bowel Sounds - Rectal Exam Rectal Exam: Deferred
[2017-06-19] MEDS: DiphenhydrAMINE 50 mg/ml Inj IVP PRN (18:58)
--- NOTE | 2017-06-19 22:14 | US ---
EXAM: US Abdomen Complete CLINICAL HISTORY: 46 years old, male; Signs and symptoms; Other: Abd. Distention; Additional info: Abd distention TECHNIQUE: Real-time ultrasound of the abdomen (complete) with image documentation. COMPARISON: CT - ABD PELVIS IV CONTRAST ONLY 06/05/2017 1:11:22 AM FINDINGS: Liver: Enlarged, 23.9 cm. Fatty infiltration. No mass. No intrahepatic ductal dilatation. Gallbladder: Contracted. No gallstones. 0.9 cm wall thickness. Trace pericholecystic fluid. No sonographic Liao's sign. Common bile duct: No dilatation. No stones. Pancreas: Unremarkable as visualized. Kidneys: Normal echogenicity. No hydronephrosis. Spleen: No splenomegaly. Aorta: Unremarkable as visualized. No aneurysm. Inferior vena cava: Unremarkable. Free fluid: Trace free fluid within abdomen. IMPRESSION: 1. Gallbladder wall thickening with trace pericholecystic fluid. Clinical correlation is needed. 2. Incidental/non-acute findings are described above.
[2017-06-20] MEDS: Albuterol-Ipratrop 3 mg / 0.5 (3 ml) UD INH SCH ×3 (01:55→13:37)
[2017-06-20] MEDS: Oxycodone/Acetaminophen 5/325 mg Tab PO PRN ×4 (04:28→16:22)
--- NOTE | 2017-06-20 07:09 | CP.PCM.PN ---
Subjective - Date & Time of Evaluation Date of Evaluation: 06/20/17 Time of Evaluation: 07:09 Objective - Vital Signs/Intake and Output Vital Signs (last 24 hours): Temp Pulse Resp BP Pulse Ox 98.4 F 63 18 122/68 97 06/19/17 23:43 06/19/17 23:43 06/19/17 23:43 06/19/17 23:43 06/19/17 23:43 Intake and Output: 06/20/17 06/20/17 06:59 18:59 Output Total 1900 Balance -1900 - Medications Medications: Current Medications Albuterol/Ipratropium (Duoneb 3 Mg/0.5 Mg (3 Ml) Ud) 3 ml INH RQ6 [facility] Last Admin: 06/20/17 01:55 Dose: Not Given Alprazolam (Xanax) 1 mg PO Q6H PRN PRN Reason: Anxiety Last Admin: 06/19/17 21:37 Dose: 1 mg Amiodarone HCl (Cordarone) 200 mg PO DAILY [facility] Last Admin: 06/19/17 11:26 Dose: Not Given Aspirin (Ecotrin) 325 mg PO DAILY [facility] Last Admin: 06/19/17 11:19 Dose: 325 mg Carvedilol (Coreg) 12.5 mg PO BID [facility] Last Admin: 06/19/17 17:19 Dose: 12.5 mg Digoxin (Lanoxin) 0.125 mg PO DAILY@1800 [facility] Last Admin: 06/19/17 17:18 Dose: 0.125 mg Diltiazem HCl (Cardizem) 30 mg PO QID [facility] Last Admin: 06/19/17 21:37 Dose: 30 mg Diphenhydramine HCl (Benadryl) 25 mg IVP Q6H PRN PRN Reason: Itching / Pruritus Last Admin: 06/19/17 18:58 Dose: 25 mg Enalapril Maleate (Vasotec) 10 mg PO DAILY [facility] Last Admin: 06/19/17 11:25 Dose: 10 mg Fluoxetine HCl (Prozac) 40 mg PO DAILY [facility] Last Admin: 06/19/17 12:06 Dose: 40 mg Furosemide (Lasix) 40 mg IVP BID [facility] Last Admin: 06/19/17 22:27 Dose: 40 mg Gabapentin (Neurontin) 300 mg PO TID [facility] Last Admin: 06/19/17 17:25 Dose: 300 mg Heparin Sodium (Porcine) (Heparin) 5,000 units SC Q12 [facility] Last Admin: 06/19/17 21:39 Dose: Not Given Home Med (Budesonide/Formoterol Fumarate [Symbicort 160-4.5 Mcg Inhaler]) 1 aer IH BID [facility] Hydralazine HCl (Apresoline) 25 mg PO DAILY [facility] Last Admin: 06/19/17 11:23 Dose: 25 mg Hydrochlorothiazide (Hydrodiuril) 50 mg PO DAILY [facility] Last Admin: 06/19/17 11:23 Dose: 50 mg Ibuprofen (Motrin Tab) 800 mg PO Q6 [facility] Last Admin: 06/20/17 00:41 Dose: 800 mg Montelukast Sodium (Singulair) 10 mg PO HS [facility] Last Admin: 06/19/17 21:37 Dose: 10 mg Nicotine (Nicoderm Cq) 1 patch TD DAILY [facility] Last Admin: 06/19/17 12:07 Dose: 1 patch Oxycodone/Acetaminophen (Percocet 5/325 Mg Tab) 1 tab PO Q4 PRN PRN Reason: Pain, severe (8-10) Stop: 06/21/17 17:55 Last Admin: 06/20/17 04:28 Dose: 1 tab Potassium Chloride (K-Dur 20 Meq Er Tab) 20 meq PO DAILY [facility] Last Admin: 06/19/17 11:24 Dose: 20 meq Rosuvastatin Calcium (Crestor) 5 mg PO HS [facility] Last Admin: 06/19/17 21:37 Dose: 5 mg Spironolactone (Aldactone) 25 mg PO DAILY [facility] Last Admin: 06/19/17 11:24 Dose: 25 mg
[2017-06-20 07:40] VITALS: RESP 20
[2017-06-20 07:49] LABS: BASO # 0.1 K/uL (0.0-0.2); BASO % 1.2 % (0.0-2.0); EOS # 0.3 K/uL (0.0-0.7); EOS % 2.6 % (0.0-4.0); HEMOGLOBIN 12.6 g/dL (12.0-18.0); LYMPH # 2.3 K/uL (1.0-4.3); LYMPH % 21.9 % (20.0-40.0); MEAN CELL VOLUME 79.5 fL (80.0-94.0); MEAN CORPUSCULAR HEMOGLOBIN 24.5 pg (27.0-31.0); MEAN CORPUSCULAR HGB CONC 30.9 g/dL (33.0-37.0); MEAN PLATELET VOLUME 8.1 fL (7.2-11.7); MONO # 1.3 K/uL (0.0-0.8); MONO % 12.4 % (0.0-10.0); NEUT # 6.4 K/uL (1.8-7.0); NEUT % 61.9 % (50.0-75.0); RBC 5.12 Mil/uL (4.40-5.90); RED CELL DISTRIBUTION WIDTH 19.2 % (11.5-14.5); WHITE BLOOD COUNT 10.4 K/uL (4.8-10.8)
[2017-06-20 07:57] LABS: BLOOD UREA NITROGEN 33 mg/dL (9-20); CALCIUM 8.4 mg/dl (8.6-10.4); GFR AFRICAN-AMERICAN > 60; GFR NON-AFRICAN AMERICAN > 60
[2017-06-20] MEDS: Potassium Chloride 20 mEq ER Tab PO SCH (10:02)
[2017-06-20] MEDS: Aspirin 325 mg EC Tablets PO SCH (10:03)
[2017-06-20] MEDS: DiphenhydrAMINE 50 mg/ml Inj IVP PRN (10:12)
--- NOTE | 2017-06-20 13:47 | CP.PCM.PN ---
Subjective - Date & Time of Evaluation Date of Evaluation: 06/20/17 Time of Evaluation: 11:00 - Subjective Subjective: clinically same Objective - Vital Signs/Intake and Output Vital Signs (last 24 hours): Temp Pulse Resp BP Pulse Ox 97.5 F L 55 L 20 136/72 96 06/20/17 07:36 06/20/17 13:11 06/20/17 07:36 06/20/17 13:11 06/20/17 07:36 Intake and Output: 06/20/17 06/20/17 06:59 18:59 Output Total 1900 Balance -1900 - Medications Medications: Current Medications Albuterol/Ipratropium (Duoneb 3 Mg/0.5 Mg (3 Ml) Ud) 3 ml INH RQ6 [facility] Last Admin: 06/20/17 13:37 Dose: Not Given Alprazolam (Xanax) 1 mg PO Q6H PRN PRN Reason: Anxiety Last Admin: 06/20/17 08:32 Dose: 1 mg Amiodarone HCl (Cordarone) 200 mg PO DAILY [facility] Last Admin: 06/20/17 10:03 Dose: 200 mg Aspirin (Ecotrin) 325 mg PO DAILY [facility] Last Admin: 06/20/17 10:03 Dose: 325 mg Carvedilol (Coreg) 12.5 mg PO BID [facility] Last Admin: 06/20/17 10:03 Dose: 12.5 mg Digoxin (Lanoxin) 0.125 mg PO DAILY@1800 [facility] Last Admin: 06/19/17 17:18 Dose: 0.125 mg Diltiazem HCl (Cardizem) 30 mg PO QID [facility] Last Admin: 06/20/17 13:12 Dose: 30 mg Diphenhydramine HCl (Benadryl) 25 mg IVP Q6H PRN PRN Reason: Itching / Pruritus Last Admin: 06/20/17 10:12 Dose: 25 mg Enalapril Maleate (Vasotec) 10 mg PO DAILY [facility] Last Admin: 06/20/17 10:03 Dose: 10 mg Fluoxetine HCl (Prozac) 40 mg PO DAILY [facility] Last Admin: 06/20/17 10:01 Dose: 40 mg Furosemide (Lasix) 40 mg IVP BID [facility] Last Admin: 06/20/17 10:04 Dose: Not Given Gabapentin (Neurontin) 300 mg PO TID [facility] Last Admin: 06/20/17 13:12 Dose: 300 mg Heparin Sodium (Porcine) (Heparin) 5,000 units SC Q12 [facility] Last Admin: 06/20/17 10:08 Dose: Not Given Home Med (Budesonide/Formoterol Fumarate [Symbicort 160-4.5 Mcg Inhaler]) 1 aer IH BID [facility] Hydralazine HCl (Apresoline) 25 mg PO DAILY [facility] Last Admin: 06/20/17 10:03 Dose: 25 mg Hydrochlorothiazide (Hydrodiuril) 50 mg PO DAILY [facility] Last Admin: 06/20/17 10:02 Dose: 50 mg Ibuprofen (Motrin Tab) 800 mg PO Q6 [facility] Last Admin: 06/20/17 12:35 Dose: 800 mg Montelukast Sodium (Singulair) 10 mg PO HS [facility] Last Admin: 06/19/17 21:37 Dose: 10 mg Nicotine (Nicoderm Cq) 1 patch TD DAILY [facility] Last Admin: 06/20/17 10:03 Dose: 1 patch Oxycodone/Acetaminophen (Percocet 5/325 Mg Tab) 1 tab PO Q4 PRN PRN Reason: Pain, severe (8-10) Stop: 06/21/17 17:55 Last Admin: 06/20/17 12:34 Dose: 1 tab Potassium Chloride (K-Dur 20 Meq Er Tab) 20 meq PO DAILY [facility] Last Admin: 06/20/17 10:02 Dose: 20 meq Rosuvastatin Calcium (Crestor) 5 mg PO HS [facility] Last Admin: 06/19/17 21:37 Dose: 5 mg Spironolactone (Aldactone) 25 mg PO DAILY [facility] Last Admin: 06/20/17 10:03 Dose: 25 mg - Labs Labs: 06/20/17 07:19 06/20/17 07:19 - Constitutional Appears: Well - Head Exam Head Exam: ATRAUMATIC, NORMAL INSPECTION, NORMOCEPHALIC - Eye Exam Eye Exam: EOMI, Normal appearance, PERRL Pupil Exam: NORMAL ACCOMODATION, PERRL - ENT Exam ENT Exam: Mucous Membranes Moist, Normal Exam - Neck Exam Neck Exam: Full ROM, Normal Inspection. absent: Lymphadenopathy - Respiratory Exam Respiratory Exam: Decreased Breath Sounds - Cardiovascular Exam Cardiovascular Exam: REGULAR RHYTHM, +S1, +S2 - GI/Abdominal Exam GI & Abdominal Exam: Soft, Diminished Bowel Sounds - Rectal Exam Rectal Exam: Deferred
[2017-06-20 14:14] VITALS: O2SAT 95
[2017-06-20 16:42] VITALS: BP 143/91; PULSE 81; TEMP 98
--- NOTE | 2017-06-20 17:13 | CP.PCM.PN ---
Subjective - Date & Time of Evaluation Date of Evaluation: 06/20/17 Time of Evaluation: 17:10 - Subjective Subjective: HOUSE RESIDENT NOTE Nursing paged for pt desire to leave AMA. Pt oriented x 3 and aware of context of admission. Spoke with pt regarding risk of stopping treatment for his CHF exacerbation. Reached out to Kanika BERGERON who spoke with Dr. Razo. Dr. Razo's instructions were to have Mr Gray follow up in office with either himself, or Dr. Ocampo when he returns from vacation. Pt signed form after accepting risks of leaving AMA - including worsening respiratory function leading to arrest, up to . Miles Rodriguez PGY-1 Objective - Vital Signs/Intake and Output Vital Signs (last 24 hours): Temp Pulse Resp BP Pulse Ox 98.0 F 81 20 143/91 H 95 06/20/17 15:15 06/20/17 15:15 06/20/17 15:15 06/20/17 15:15 06/20/17 15:15 Intake and Output: 06/20/17 06/20/17 06:59 18:59 Intake Total 500 Output Total 1900 Balance -1900 500 - Medications Medications: Current Medications Albuterol/Ipratropium (Duoneb 3 Mg/0.5 Mg (3 Ml) Ud) 3 ml INH RQ6 [facility] Last Admin: 06/20/17 13:37 Dose: Not Given Alprazolam (Xanax) 1 mg PO Q6H PRN PRN Reason: Anxiety Last Admin: 06/20/17 16:22 Dose: 1 mg Amiodarone HCl (Cordarone) 200 mg PO DAILY [facility] Last Admin: 06/20/17 10:03 Dose: 200 mg Aspirin (Ecotrin) 325 mg PO DAILY [facility] Last Admin: 06/20/17 10:03 Dose: 325 mg Carvedilol (Coreg) 12.5 mg PO BID [facility] Last Admin: 06/20/17 10:03 Dose: 12.5 mg Digoxin (Lanoxin) 0.125 mg PO DAILY@1800 [facility] Last Admin: 06/19/17 17:18 Dose: 0.125 mg Diltiazem HCl (Cardizem) 30 mg PO QID [facility] Last Admin: 06/20/17 13:12 Dose: 30 mg Diphenhydramine HCl (Benadryl) 25 mg IVP Q6H PRN PRN Reason: Itching / Pruritus Last Admin: 06/20/17 10:12 Dose: 25 mg Enalapril Maleate (Vasotec) 10 mg PO DAILY [facility] Last Admin: 06/20/17 10:03 Dose: 10 mg Fluoxetine HCl (Prozac) 40 mg PO DAILY [facility] Last Admin: 06/20/17 10:01 Dose: 40 mg Furosemide (Lasix) 40 mg IVP BID [facility] Last Admin: 06/20/17 10:04 Dose: Not Given Gabapentin (Neurontin) 300 mg PO TID [facility] Last Admin: 06/20/17 13:12 Dose: 300 mg Heparin Sodium (Porcine) (Heparin) 5,000 units SC Q12 [facility] Last Admin: 06/20/17 10:08 Dose: Not Given Home Med (Budesonide/Formoterol Fumarate [Symbicort 160-4.5 Mcg Inhaler]) 1 aer IH BID [facility] Hydralazine HCl (Apresoline) 25 mg PO DAILY [facility] Last Admin: 06/20/17 10:03 Dose: 25 mg Hydrochlorothiazide (Hydrodiuril) 50 mg PO DAILY [facility] Last Admin: 06/20/17 10:02 Dose: 50 mg Ibuprofen (Motrin Tab) 800 mg PO Q6 [facility] Last Admin: 06/20/17 12:35 Dose: 800 mg Montelukast Sodium (Singulair) 10 mg PO HS [facility] Last Admin: 06/19/17 21:37 Dose: 10 mg Nicotine (Nicoderm Cq) 1 patch TD DAILY [facility] Last Admin: 06/20/17 10:03 Dose: 1 patch Oxycodone/Acetaminophen (Percocet 5/325 Mg Tab) 1 tab PO Q4 PRN PRN Reason: Pain, severe (8-10) Stop: 06/21/17 17:55 Last Admin: 06/20/17 16:22 Dose: 1 tab Potassium Chloride (K-Dur 20 Meq Er Tab) 20 meq PO DAILY [facility] Last Admin: 06/20/17 10:02 Dose: 20 meq Rosuvastatin Calcium (Crestor) 5 mg PO HS [facility] Last Admin: 06/19/17 21:37 Dose: 5 mg Spironolactone (Aldactone) 25 mg PO DAILY [facility] Last Admin: 06/20/17 10:03 Dose: 25 mg - Labs Labs: 06/20/17 07:19 07/22/17 07:19
== END 2017-06-20 17:00 | disposition home or self-care (01) | DRG 292 ==
LOC: C.ER 11:39 → C.9E 14:16 → C.5T 15:54
PROVIDERS: ADMIT Internal Medicine Nephrology; ATTEND Internal Medicine Nephrology
DX: I11.0 Hypertensive heart disease with heart failure (principal); R18.8 Other ascites; E11.9 Type 2 diabetes mellitus without complications; I50.9 Heart failure, unspecified; F31.9 Bipolar disorder, unspecified; F14.90 Cocaine use, unspecified, uncomplicated; E78.00 Pure hypercholesterolemia, unspecified; F41.9 Anxiety disorder, unspecified; G47.33 Obstructive sleep apnea (adult) (pediatric); I25.10 Atherosclerotic heart disease of native coronary artery without angina pectoris; I48.91 Unspecified atrial fibrillation; J44.9 Chronic obstructive pulmonary disease, unspecified; Z87.891 Personal history of nicotine dependence; Z90.49 Acquired absence of other specified parts of digestive tract; Z95.5 Presence of coronary angioplasty implant and graft; Z88.5 Allergy status to narcotic agent; Z88.8 Allergy status to other drugs, medicaments and biological substances

== ENCOUNTER 2017-06-25 10:15 | Inpatient (IN) | payer MEDICARE, MEDICAID ==
[2017-06-25 10:15] VITALS: BMI 38.7
--- NOTE | 2017-06-25 10:29 | C.PDOC ---
History Of Present Illness 46 y/o male, history of anxiety, obesity, CHF, presents to emergency department with complaint of SOB. Patient was admitted to the hospital, signed out AMA, several days ago. Denies fevers, chest pain, nausea, vomiting. Patient reports associated mild cough. Time Seen by Provider: 06/25/17 10:26 Chief Complaint (Nursing): Shortness Of Breath History Per: Patient History/Exam Limitations: no limitations Onset/Duration Of Symptoms: Days Current Symptoms Are (Timing): Still Present Associated Symptoms: denies: Fever, Bloody Cough, Dizziness, Anxiety Recent travel outside of the [place]: No Past Medical History Reviewed: Historical Data, Nursing Documentation, Vital Signs Vital Signs: Last Vital Signs Temp 97.2 F L 06/25/17 17:19 Pulse 118 H 06/25/17 17:19 Resp 24 06/25/17 17:19 BP 161/101 H 06/25/17 17:36 Pulse Ox 100 06/25/17 17:19 - Medical History PMH: Anxiety, Asthma, Atrial Fibrillation, Back Problems, Bipolar Disorder, CAD , Cardia Arrhythmia, CHF, COPD, Depression, Emphysema, HTN, Hypercholesterolemia , Peripheral Edema, Sleep Apnea, Chronic Pain (Lower Back Pain) Surgical History: Appendectomy (2008), Coronary Stent (2008 - 2012 4 stents) - [facility] Procedures CORONAR ARTERIOGR-2 CATH (07/06/13) DRAINAGE OF SPLEEN, PERCUTANEOUS APPROACH (03/05/17) INJECT/INFUSE NEC (02/22/14) LEFT HEART CARDIAC CATH (07/06/13) LT HEART ANGIOCARDIOGRAM (07/06/13) NEBULIZER THERAPY (03/28/14) NON-INVASIVE MECHANICAL VENTILATION (03/26/15) TRANSFUSE NONAUT FROZEN PLASMA IN PERIPH VEIN, PERC (02/21/17) Family History: States: Unknown Family Hx, CAD, Diabetes - Social History Hx Tobacco Use: Yes Hx Alcohol Use: No (social) Hx Substance Use: No (coccaine) - Immunization History Hx Tetanus Toxoid Vaccination: Yes Hx Influenza Vaccination: Yes Hx Pneumococcal Vaccination: Yes (08/2014) Review Of Systems Except As Marked, All Systems Reviewed And Found Negative. Constitutional: Negative for: Fever, Chills Cardiovascular: Negative for: Chest Pain Respiratory: Positive for: Cough, Shortness of Breath. Negative for: Wheezing Gastrointestinal: Negative for: Nausea, Vomiting, Abdominal Pain Skin: Negative for: Rash Neurological: Negative for: Headache, Dizziness Physical Exam - Physical Exam Appears: Non-toxic, Other (morbid obesity, mildly anxious) Skin: Warm, Dry, No Rash Head: Atraumatic, Normacephalic Oral Mucosa: Moist Chest: Symmetrical Cardiovascular: Rhythm Regular Respiratory: No Accessory Muscle Use, Rales (bibasilar), No Rhonchi, No Stridor , No Wheezing Gastrointestinal/Abdominal: Soft, No Tenderness, No Guarding, No Rebound Back: Normal Inspection Extremity: Normal ROM, Capillary Refill (< 2 sec. ), Other (3+ edema bilaterally ) Neurological/Psych: Oriented x3, Normal Speech, Normal Cognition ED Course And Treatment - Laboratory Results Result Diagrams: 06/25/17 11:09 06/25/17 11:09 O2 Sat by Pulse Oximetry: 86 Medical Decision Making Medical Decision Making: suspect chf- labs imaging pending Plan: * EKG, Labs, CxR * Reassess Prior Visits: Notes and results from previous visits were reviewed Progress Notes: [id number] shows worsening congestion. lasix ordered. labs other gonzalez unremarkable. pt comfortable. in bed, on nc, satting mid 90s. stable for tele. dr fernandez, covering dr beltran accepttoby Disposition - Disposition Disposition: HOSPITALIZED Disposition Time: 11:56 Condition: FAIR - Clinical Impression Clinical Impression: Congestive heart failure - Scribe Statement The provider has reviewed the documentation as recorded by the Scribe Vargas Gamino All medical record entries made by the Scribe were at my direction and personally dictated by me. I have reviewed the chart and agree that the record accurately reflects my personal performance of the history, physical exam, medical decision making, and the department course for this patient. I have also personally directed, reviewed, and agree with the discharge instructions and disposition. Decision To Admit - Pt Status Changed To: Hospital Disposition Of: Inpatient - Admit Certification Admit to Inpatient:: After my assessment, the patient will require hospitalization for at least two midnights. This is because of the severity of symptoms shown, intensity of services needed, and/or the medical risk in this patient being treated as an outpatient. - InPatient: Physician Admission Certification: I certify that this patient requires 2 or more midnights of care for the following reason:: pt with chf, multiple comorbities, hypoxic, needs iv lasix - . Bed Request Type: Telemetry Admitting Physician: Annetta Fernandez Patient Diagnosis: Congestive heart failure
--- NOTE | 2017-06-25 11:13 | RAD ---
PROCEDURE: CHEST RADIOGRAPH, 1 VIEW HISTORY: Chest pain COMPARISON: 06/18/2017. FINDINGS: LUNGS: There is worsening pulmonary venous congestion with pulmonary distribution and mild interstitial pulmonary edema. No focal consolidation. PLEURA: No pneumothorax or pleural fluid seen. CARDIOVASCULAR: There is persistent severe cardiomegaly and prominent central vasculature. OSSEOUS STRUCTURES: No significant abnormalities. VISUALIZED UPPER ABDOMEN: Normal. OTHER FINDINGS: None. IMPRESSION: Severe cardiomegaly and worsening pulmonary venous congestion with redistribution concerning for developing congestive heart failure.
[2017-06-25 11:20] LABS: EOS # 0.2 K/uL (0.0-0.7); WHITE BLOOD COUNT 8.4 K/uL (4.8-10.8)
[2017-06-25 11:24] LABS: URINE BILIRUBIN NEGATIVE (NEGATIVE); URINE BLOOD NEGATIVE (NEGATIVE); URINE COLOR Straw (YELLOW); URINE GLUCOSE (UA) NORMAL (Normal); URINE KETONE NEGATIVE (NEGATIVE); URINE LEUKOCYTE ESTERASE NEG Leu/uL (Negative); URINE PROTEIN NEGATIVE (NEGATIVE); URINE UROBILINOGEN NORMAL mg/dL (0.2-1.0); WBC URINE < 1 /hpf (0-5)
[2017-06-25 11:27] LABS: BASO # 0.1 K/uL (0.0-0.2); EOS % 2.9 % (0.0-4.0); HEMATOCRIT 39.2 % (35.0-51.0); INR 1.4; LYMPH # 1.8 K/uL (1.0-4.3); LYMPH % 21.8 % (20.0-40.0); MEAN CELL VOLUME 79.5 fL (80.0-94.0); MEAN CORPUSCULAR HEMOGLOBIN 24.8 pg (27.0-31.0); MEAN CORPUSCULAR HGB CONC 31.2 g/dL (33.0-37.0); MEAN PLATELET VOLUME 7.7 fL (7.2-11.7); MONO # 0.7 K/uL (0.0-0.8); MONO % 8.9 % (0.0-10.0); NRBC % 0.1 % (0.0-2.0); RED CELL DISTRIBUTION WIDTH 18.6 % (11.5-14.5)
[2017-06-25 11:33] LABS: CHLORIDE 96 mmol/L (98-107)
[2017-06-25 11:34] LABS: POTASSIUM 3.6 mmol/L (3.6-5.2); SODIUM 138 mmol/L (132-148)
[2017-06-25 11:36] LABS: ALB/GLOB RATIO 0.8 (1.0-2.1); AST/SGOT 31 U/L (17-59); BILIRUBIN,TOTAL 0.9 mg/dL (0.2-1.3); BLOOD UREA NITROGEN 19 mg/dL (9-20); CARBON DIOXIDE 23 mmol/L (22-30); GFR AFRICAN-AMERICAN > 60; TOTAL PROTEIN 8.1 g/dL (6.3-8.3)
[2017-06-25 11:37] LABS: ALKALINE PHOSPHATASE 75 U/L (38-126); ALT/SGPT 24 U/L (21-72); CALCIUM 8.3 mg/dl (8.6-10.4); GLUCOSE,RANDOM 140 mg/dL (75-110)
[2017-06-25] MEDS ORDERED: Oxycodone/Acetaminophen 5/325 mg Tab PO PRN (12:34)
[2017-06-25] MEDS ORDERED: Aspirin 325 mg EC Tablets PO ONE (12:45)
[2017-06-25] MEDS: Digoxin 125 mcg (0.125 mg) Tab PO SCH (12:50)
[2017-06-25] MEDS: Aspirin 325 mg EC Tablets PO SCH (12:50)
--- NOTE | 2017-06-25 13:21 | CP.PCM.HP ---
History of Present Illness - History of Present Illness History of Present Illness: 46 years old male patient with past medical history of atrial fibrillation, CHF , CAD S/P 4 stents, COPD, hypertension, hypercholesterolemia, peripheral edema, low back pain, sleep apnea presented to the emergency department with complaint of worsening shortness of breath, cough. Patient admitted earlier this month with similar complaints and left AMA. Patient states that he did finish his workup in previous admission and he is here to complete his workup. Recent cocaine use about 2 weeks ago as per patient. When inquired about recent drug use he became defensive and denied any use. Past surgical history of appendectomy Allergic to Eliquis, Plavix, Lovenox, morphine Present on Admission - Present on Admission Any Indicators Present on Admission: No Past Patient History - Infectious Disease Hx of Infectious Diseases: None - Tetanus Immunizations Tetanus Immunization: Up to Date - Past Medical History & Family History Past Medical History?: Yes - Past Social History Smoking Status: Former Smoker - CARDIAC Hx Atrial Fibrillation: Yes Hx Cardia Arrhythmia: Yes Hx Congestive Heart Failure: Yes Hx Hypercholesterolemia: Yes Hx Hypertension: Yes Hx Peripheral Edema: Yes - PULMONARY Hx Asthma: Yes Hx Chronic Obstructive Pulmonary Disease (COPD): Yes Hx Emphysema: Yes Hx Sleep Apnea: Yes - NEUROLOGICAL Hx Neurological Disorder: No - HEENT Hx HEENT Problems: No - RENAL Hx Chronic Kidney Disease: No - ENDOCRINE/METABOLIC Hx Endocrine Disorders: No - HEMATOLOGICAL/ONCOLOGICAL Hx Blood Disorders: Yes Other/Comment: MRSA Hx - INTEGUMENTARY Hx Dermatological Problems: No - MUSCULOSKELETAL/RHEUMATOLOGICAL Hx Musculoskeletal Disorders: Yes - GASTROINTESTINAL Hx Gastrointestinal Disorders: Yes Other/Comment: Splenic Hematoma - GENITOURINARY/GYNECOLOGICAL Hx Genitourinary Disorders: No - PSYCHIATRIC Hx Anxiety: Yes Hx Bipolar Disorder: Yes Hx Depression: Yes Hx Substance Use: No (coccaine) - SURGICAL HISTORY Hx Appendectomy: Yes (2008) Hx Coronary Stent: Yes (2008 - 2012 4 stents) - ANESTHESIA Hx Anesthesia: Yes Hx Anesthesia Reactions: No Hx Malignant Hyperthermia: No Meds Allergies/Adverse Reactions: Allergies Allergy/AdvReac Type Severity Reaction Status Date / Time apixaban [From Eliquis] Allergy RASH Verified 07/22/17 03:14 clopidogrel bisulfate Allergy RASH Verified 07/22/17 03:14 [From Plavix] enoxaparin sodium Allergy RASH Verified 07/22/17 03:14 [From Lovenox] morphine Allergy RASH Verified 07/22/17 03:14 Physical Exam - Constitutional Appears: Well - Head Exam Head Exam: ATRAUMATIC, NORMAL INSPECTION, NORMOCEPHALIC - Eye Exam Eye Exam: EOMI, Normal appearance, PERRL Pupil Exam: NORMAL ACCOMODATION, PERRL - ENT Exam ENT Exam: Mucous Membranes Moist, Normal Exam - Neck Exam Neck exam: Positive for: Normal Inspection - Respiratory Exam Respiratory Exam: Decreased Breath Sounds - Cardiovascular Exam Cardiovascular Exam: REGULAR RHYTHM, +S1, +S2 - GI/Abdominal Exam GI & Abdominal Exam: Diminished Bowel Sounds, Soft - Rectal Exam Rectal Exam: Deferred Results - Vital Signs Recent Vital Signs: Last Vital Signs Temp 97.4 F L 06/25/17 10:20 Pulse 102 H 06/25/17 10:20 Resp 26 H 06/25/17 10:45 BP 151/115 H 06/25/17 12:51 Pulse Ox 86 L 06/25/17 11:59 - Labs Result Diagrams: 06/25/17 11:09 06/25/17 11:09 Assessment & Plan (1) ACS (acute coronary syndrome) Status: Acute (2) ARF (acute renal failure) Status: Acute (3) Abdominal pain Status: Acute (4) Abdominal pain Status: Acute (5) Abdominal pain Status: Acute (6) Anticoagulated on Coumadin Status: Acute (7) Anxiety Status: Acute (8) Anxiety Status: Acute (9) Ascites Status: Acute (10) Atrial dysrhythmia Status: Acute (11) Back pain Status: Acute (12) Benzodiazepine abuse Status: Acute (13) Benzodiazepine dependence Status: Acute (14) CHF (congestive heart failure) Status: Acute (15) CHF (congestive heart failure) Status: Acute (16) CHF (congestive heart failure) Status: Acute (17) CHF (congestive heart failure) Status: Acute (18) CHF exacerbation Status: Acute (19) Chronic back pain Status: Acute (20) Chronic left ventricular systolic dysfunction Status: Acute (21) Chronic obstructive pulmonary disease (COPD) Status: Acute (22) Cocaine abuse Status: Acute (23) Congestive heart failure (CHF) Status: Acute (24) D-dimer, elevated Status: Acute (25) Dyspnea Status: Acute (26) Dyspnea Status: Acute (27) Edema Status: Acute (28) Elevated brain natriuretic peptide (BNP) level Status: Acute (29) Elevated troponin Status: Acute (30) Gram positive sepsis Status: Acute (31) Hypokalemia Status: Acute (32) Hypotension Status: Acute (33) Lower extremity edema Status: Acute (34) Lumbar radiculopathy Status: Acute (35) MRSA (methicillin resistant Staphylococcus aureus) infection Status: Acute (36) MRSA (methicillin resistant Staphylococcus aureus) septicemia Status: Acute (37) MRSA bacteremia Status: Acute (38) Medication refill Status: Acute (39) Narcotic dependence Status: Acute (40) Near syncope Status: Acute (41) Non-STEMI (non-ST elevated myocardial infarction) Status: Acute (42) Non-compliance Status: Acute (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 Status: Acute (44) PVD (peripheral vascular disease) Status: Acute (45) Palpitations Status: Acute (46) Pneumonia Status: Acute (47) Prophylactic measure Status: Acute (48) Pulmonary edema Status: Acute (49) Rapid atrial fibrillation Status: Acute (50) Respiratory distress Status: Acute (51) Sciatica Status: Acute (52) Shortness of breath Status: Acute (53) Skin sore Status: Acute (54) Spleen hematoma Status: Acute (55) Splenic hemorrhage Status: Acute (56) Syncope Status: Acute (57) Venous stasis dermatitis of both lower extremities Status: Acute (58) Afib Status: Chronic (59) Anxiety Status: Chronic (60) Anxiety Status: Chronic (61) Asthma Status: Chronic (62) Atrial fibrillation with rapid ventricular response Status: Chronic (63) CAD (coronary artery disease) Status: Chronic (64) Cocaine use Status: Chronic Priority: High (65) Congestive heart failure Status: Chronic (66) Degenerative disc disease, lumbar Status: Chronic (67) ETOH abuse Status: Chronic Priority: High (68) H/O heart artery stent Status: Chronic Priority: Low (69) HTN (hypertension), benign Status: Chronic (70) HTN, goal below 130/80 Status: Chronic Priority: Low (71) Hypertension Status: Chronic (72) Low back pain Status: Chronic (73) Sleep apnea Status: Chronic (74) Cellulitis Status: Suspected (75) Xanax use disorder, mild Status: Suspected (76) Chest pain Status: Resolved - Assessment and Plan (Free Text) Plan: Labs and meds reviewed Monitor input and output Cardio consult Pulmonary consult History of fluid intake Ventolin inhaler DuoNeb Heart rate controlled Vitals monitoring Diuresis with Lasix Labs next a.m.
[2017-06-25] MEDS ORDERED: Fluticasone-Salmeterol 250-50mcg Diskus IH SCH (20:00)
[2017-06-25] MEDS: Albuterol-Ipratrop 3 mg / 0.5 (3 ml) UD INH SCH (20:08)
[2017-06-25] MEDS: Albuterol HFA 90 mcg/actuation (8 g) IH SCH ×2 (20:10→20:11)
[2017-06-25 22:42] VITALS: RESP 20
[2017-06-25] MEDS: Oxycodone/Acetaminophen 5/325 mg Tab PO PRN (22:42)
[2017-06-26] MEDS: Albuterol-Ipratrop 3 mg / 0.5 (3 ml) UD INH SCH ×5 (00:59→16:35)
[2017-06-26] MEDS: Oxycodone/Acetaminophen 5/325 mg Tab PO PRN ×3 (06:11→20:51)
[2017-06-26] MEDS: Albuterol HFA 90 mcg/actuation (8 g) IH SCH (08:00)
[2017-06-26] MEDS: Digoxin 125 mcg (0.125 mg) Tab PO SCH (09:32)
[2017-06-26] MEDS: Aspirin 325 mg EC Tablets PO SCH (09:32)
--- NOTE | 2017-06-26 09:46 | CP.PCM.CON ---
<Ricky Sparks - Last Filed: 06/26/17 10:50> History of Present Illness - History of Present Illness History of Present Illness: PGY2 consult note- Cardiology- Dr. West Mr. Gray is a 46 year old gentleman with a PMHx of HTN, CAD s/p stents x4, CHF, Afib, COPD, ARLENE, Herniated discs in the L-spine, bipolar d/o, major depression, asthma, hx of splenic infarct, who has had abundant admissions to [facility], presenting to ER with SOB. Mr. Gray was recently hospitalized, earlier this month for a similar constellation of symptoms and left our service AMA. He explains today that he needed to see his daughter and told his doctors that he will be returning. Patient has had recent cocaine use, he reported on last admission use of cocaine 2 weeks prior; he is unclear about more recent use. During his previous admission he reported SOB, b/l leg swelling , and abdominal "swelling because of his spleen" that had been progressively worsening. He states he did not finish his workup from prior admission and he is here to complete his workup and find out the cause of his symptoms. He is currently denying headache, dizziness, chest pain, shortness of breath, palpitations, cough, nausea, vomiting, bowel/bladder complaints. He admitted to abdominal pain only. Pt appears lethargic and although he is able to answer questions appropriately, he behaves unusually. His speech is difficult to understand and tangential, he closes his eyes and falls asleep during exam and history. When questioned about recent drug use he becomes defensive and vehemently denies any use. PMHx: HTN, CAD, CHF, Afib, COPD, ARLENE, Herniated discs L-spine, bipolar d/o, depression, asthma, hx of splenic infarct Meds: As per MAR- Diltiazem, ASA, Carvedilol, digoxin, enalapril, HCTZ, k-dur, Lasix, Albuterol, Prozac, Simvastatin, Montelukast, Tizanidine, Xanax, Gabapentin. Allergies: Eliquis, Plavix, Lovenox, Morphine PSurgHx: Appendectomy (2008), Coronary stents x4 ([id number]) PHosp: multiple admissions recently for SOB, splenic hematoma and bacteremia FamHx: Denies SocialHx: Denies tobacco use- wears a nicotine patch. Social alcohol use; Admits to Cocaine use Review of Systems - Review of Systems Systems not reviewed;Unavailable: Other (lethargic) - Constitutional Constitutional: absent: Chills, Fever, Headache - EENT Eyes: absent: Blurred Vision - Cardiovascular Cardiovascular: As Per HPI. absent: Chest Pain, Diaphoresis, Dyspnea - Respiratory Respiratory: As Per HPI. absent: Dyspnea - Gastrointestinal Gastrointestinal: As Per HPI, Abdominal Pain - Neurological Neurological: absent: Dizziness, Numbness, Focal Weakness, Weakness - Psychiatric Psychiatric: As Per HPI, Behavioral Changes, Depression Past Patient History - Infectious Disease Hx of Infectious Diseases: None - Tetanus Immunizations Tetanus Immunization: Up to Date - Past Medical History & Family History Past Medical History?: Yes - Past Social History Smoking Status: Former Smoker - CARDIAC Hx Atrial Fibrillation: Yes Hx Cardia Arrhythmia: Yes Hx Congestive Heart Failure: Yes Hx Hypercholesterolemia: Yes Hx Hypertension: Yes Hx Peripheral Edema: Yes - PULMONARY Hx Asthma: Yes Hx Chronic Obstructive Pulmonary Disease (COPD): Yes Hx Emphysema: Yes Hx Sleep Apnea: Yes - NEUROLOGICAL Hx Neurological Disorder: No - HEENT Hx HEENT Problems: No - RENAL Hx Chronic Kidney Disease: No - ENDOCRINE/METABOLIC Hx Endocrine Disorders: No - HEMATOLOGICAL/ONCOLOGICAL Hx Blood Disorders: Yes Other/Comment: MRSA Hx - INTEGUMENTARY Hx Dermatological Problems: Yes Other/Comment: with multiple dry scratch alex /dry scab upper extremeties and lower extremeties - MUSCULOSKELETAL/RHEUMATOLOGICAL Hx Musculoskeletal Disorders: Yes Hx Arthritis: Yes Hx Back Pain: Yes Hx Falls: Yes Other/Comment: uses cane - GASTROINTESTINAL Hx Gastrointestinal Disorders: Yes Other/Comment: Splenic Hematoma - GENITOURINARY/GYNECOLOGICAL Hx Genitourinary Disorders: No - PSYCHIATRIC Hx Substance Use: Yes (coccaine 4months ago) - SURGICAL HISTORY Hx Appendectomy: Yes (2008) Hx Coronary Stent: Yes (2008 - 2012 4 stents) - ANESTHESIA Hx Anesthesia: Yes Hx Anesthesia Reactions: No Hx Malignant Hyperthermia: No Has any member of the family had a problem w/ anesthesia?: No Meds Allergies/Adverse Reactions: Allergies Allergy/AdvReac Type Severity Reaction Status Date / Time apixaban [From Eliquis] Allergy RASH Verified 06/25/17 10:24 clopidogrel bisulfate Allergy RASH Verified 06/25/17 10:24 [From Plavix] enoxaparin sodium Allergy RASH Verified 06/25/17 10:24 [From Lovenox] morphine Allergy RASH Verified 06/25/17 10:24 - Medications Medications: Current Medications Albuterol (Ventolin Hfa 90 Mcg/Actuation (8 G)) 2 puff IH RBID [facility] Last Admin: 06/25/17 20:11 Dose: Not Given Albuterol/Ipratropium (Duoneb 3 Mg/0.5 Mg (3 Ml) Ud) 3 ml INH RQ4 [facility] Last Admin: 06/26/17 04:00 Dose: Not Given Alprazolam (Xanax) 1 mg PO Q8H [facility] Last Admin: 06/26/17 06:11 Dose: 1 mg Amiodarone HCl (Cordarone) 200 mg PO DAILY [facility] Last Admin: 06/26/17 09:32 Dose: 200 mg Aspirin (Ecotrin) 325 mg PO DAILY [facility] Last Admin: 06/26/17 09:32 Dose: 325 mg Carvedilol (Coreg) 12.5 mg PO BID [facility] Last Admin: 06/26/17 09:33 Dose: 12.5 mg Digoxin (Lanoxin) 0.125 mg PO DAILY [facility] Last Admin: 06/26/17 09:32 Dose: 0.125 mg Diltiazem HCl (Cardizem) 30 mg PO QID [facility] Last Admin: 06/25/17 22:37 Dose: 30 mg Enalapril Maleate (Vasotec) 10 mg PO DAILY [facility] Last Admin: 06/26/17 09:32 Dose: 10 mg Fluoxetine HCl (Prozac) 40 mg PO DAILY [facility] Last Admin: 06/26/17 09:33 Dose: 40 mg Furosemide (Lasix) 40 mg PO DAILY [facility] Last Admin: 06/26/17 09:32 Dose: 40 mg Gabapentin (Neurontin) 300 mg PO TID [facility] Last Admin: 06/26/17 09:32 Dose: 300 mg Hydralazine HCl (Apresoline) 25 mg PO DAILY [facility] Last Admin: 06/26/17 09:33 Dose: 25 mg Hydralazine HCl (Apresoline) 5 mg IVP Q8 PRN Hydrochlorothiazide (Hydrodiuril) 50 mg PO DAILY [facility] Ibuprofen (Motrin Tab) 800 mg PO Q6 [facility] Last Admin: 06/26/17 06:14 Dose: Not Given Montelukast Sodium (Singulair) 10 mg PO HS [facility] Last Admin: 06/25/17 22:37 Dose: 10 mg Nicotine (Nicoderm Cq) 1 patch TD DAILY [facility] Last Admin: 06/26/17 09:33 Dose: 1 patch Oxycodone/Acetaminophen (Percocet 5/325 Mg Tab) 1 tab PO Q4H PRN PRN Reason: pain Stop: 06/28/17 21:32 Last Admin: 06/26/17 06:11 Dose: 1 tab Rosuvastatin Calcium (Crestor) 5 mg PO HS [facility] Last Admin: 06/25/17 22:37 Dose: 5 mg Fluticasone/Salmeterol (Advair Diskus 250/50) 1 puff IH RBID [facility] Spironolactone (Aldactone) 25 mg PO DAILY [facility] Last Admin: 06/26/17 09:32 Dose: 25 mg Physical Exam - Constitutional Appears: No Acute Distress, Agitated - Head Exam Head Exam: ATRAUMATIC - Eye Exam Eye Exam: EOMI, Normal appearance - ENT Exam ENT Exam: Mucous Membranes Moist - Respiratory Exam Respiratory Exam: Decreased Breath Sounds. absent: Rales, Rhonchi - Cardiovascular Exam Cardiovascular Exam: Irregular Rhythm. absent: Tachycardia - GI/Abdominal Exam GI & Abdominal Exam: Soft, Tenderness Additional comments: obese - Extremities Exam Extremities exam: Positive for: pedal pulses present. Negative for: pedal edema , tenderness Additional comments: venous stasis - Neurological Exam Neurological exam: Alert, Oriented x3 Results - Vital Signs Recent Vital Signs: Last Vital Signs Temp 97.5 F L 06/26/17 09:00 Pulse 54 L 06/26/17 09:00 Resp 20 06/26/17 09:00 BP 158/114 H 06/26/17 09:33 Pulse Ox 94 L 06/26/17 09:00 - Labs Result Diagrams: 06/25/17 11:09 06/25/17 11:09 Assessment & Plan - Assessment and Plan (Free Text) Assessment: 46M with PMHx as below presented to the ED complaining of abdominal pain and SOB earlier this month, signed out AMA and is returning with similar symptoms Plan: Systolic CHF with acute exacerbation Labs/DI: CXR: Severe cardiomegaly, venous congestion BNP: 6960 EKG: Afib with RVR at 117bpm Prolonged QTc 521 ST/T wave abnormalities-lateral ischemia Incomplete right bundle branch block ECHO (02/2017): LV systolic function severely reduced LV mildly dilated Severe global hypokinesis of LV LA mildly dilated Mild mitral regurgitation Mild tricuspid regurgitation Negative for endocarditis Meds: Amiodarone 200 mg PO daily Coreg 12.5 mg PO BID Digoxin 125mcg PO QID Cardizem 30mg PO QID Lasix 40 mg PO daily HCTZ 50mg PO daily Hydralazine 25mg PO daily Aldactone 25mg PO daily Crestor 5mg PO daily CAD s/p stents x4 Crestor 5mg PO daily ASA 325mg PO daily Pt has allergies to plavix and eliquis Afib EKG in ED: Afib , Rate 117 Cardizem 30mg po q6H Digoxin 0.125 mg PO daily Coreg 12.5 mg PO BID Anticoagulation was contraindicated due to patient's hx of splenic infarct -Monitor I's & O's -Restrict fluid intake -Measure daily weight Case discussed with Dr. West <Gage West A - Last Filed: 06/26/17 11:08> Meds - Medications Medications: Current Medications Albuterol (Ventolin Hfa 90 Mcg/Actuation (8 G)) 2 puff IH RBID [facility] Last Admin: 06/26/17 08:00 Dose: Not Given Albuterol/Ipratropium (Duoneb 3 Mg/0.5 Mg (3 Ml) Ud) 3 ml INH RQ4 [facility] Last Admin: 06/26/17 08:00 Dose: Not Given Alprazolam (Xanax) 1 mg PO Q8H [facility] Last Admin: 06/26/17 06:11 Dose: 1 mg Amiodarone HCl (Cordarone) 200 mg PO DAILY [facility] Last Admin: 06/26/17 09:32 Dose: 200 mg Aspirin (Ecotrin) 325 mg PO DAILY [facility] Last Admin: 06/26/17 09:32 Dose: 325 mg Carvedilol (Coreg) 12.5 mg PO BID [facility] Last Admin: 06/26/17 09:33 Dose: 12.5 mg Digoxin (Lanoxin) 0.125 mg PO DAILY [facility] Last Admin: 06/26/17 09:32 Dose: 0.125 mg Diltiazem HCl (Cardizem) 30 mg PO QID [facility] Last Admin: 06/26/17 09:51 Dose: 30 mg Enalapril Maleate (Vasotec) 10 mg PO DAILY [facility] Last Admin: 06/26/17 09:32 Dose: 10 mg Fluoxetine HCl (Prozac) 40 mg PO DAILY [facility] Last Admin: 06/26/17 09:33 Dose: 40 mg Furosemide (Lasix) 40 mg PO DAILY [facility] Last Admin: 06/26/17 09:32 Dose: 40 mg Gabapentin (Neurontin) 300 mg PO TID [facility] Last Admin: 06/26/17 09:32 Dose: 300 mg Hydralazine HCl (Apresoline) 25 mg PO DAILY [facility] Last Admin: 06/26/17 09:33 Dose: 25 mg Hydralazine HCl (Apresoline) 5 mg IVP Q8 PRN Hydrochlorothiazide (Hydrodiuril) 50 mg PO DAILY [facility] Last Admin: 06/26/17 09:49 Dose: Not Given Ibuprofen (Motrin Tab) 800 mg PO Q6 [facility] Last Admin: 06/26/17 06:14 Dose: Not Given Montelukast Sodium (Singulair) 10 mg PO HS [facility] Last Admin: 06/25/17 22:37 Dose: 10 mg Nicotine (Nicoderm Cq) 1 patch TD DAILY [facility] Last Admin: 06/26/17 09:33 Dose: 1 patch Oxycodone/Acetaminophen (Percocet 5/325 Mg Tab) 1 tab PO Q4H PRN PRN Reason: pain Stop: 06/28/17 21:32 Last Admin: 06/26/17 06:11 Dose: 1 tab Rosuvastatin Calcium (Crestor) 5 mg PO HS [facility] Last Admin: 06/25/17 22:37 Dose: 5 mg Fluticasone/Salmeterol (Advair Diskus 250/50) 1 puff IH RBID [facility] Spironolactone (Aldactone) 25 mg PO DAILY [facility] Last Admin: 06/26/17 09:32 Dose: 25 mg Results - Vital Signs Recent Vital Signs: Last Vital Signs Temp 97.5 F L 06/26/17 09:00 Pulse 54 L 06/26/17 09:00 Resp 20 06/26/17 09:00 BP 158/114 H 06/26/17 09:33 Pulse Ox 94 L 06/26/17 09:00 - Labs Result Diagrams: 06/25/17 11:09 06/25/17 11:09 Attending/Attestation - Attestation I have personally seen and examined this patient.: Yes I have fully participated in the care of the patient.: Yes I have reviewed all pertinent clinical information: Yes Notes (Text): 06/26/17 11:07 Pt with severe shf still refusing ICD states it will fix itself when he loses weight continue amiodore and a/c diuresis continue with lasix
[2017-06-26] MEDS ORDERED: Enoxaparin 40 mg Syringe SC ONE (11:46)
--- NOTE | 2017-06-26 15:34 | PCM.PSYCH ---
Initial Psychiatric Evaluation - Initial Psychiatric Evaluation Type of Admission: Voluntary Legal Status: Capacity Chief Complaint (in patient's own words): "You tell me, you're the one who came here" History of Present Illness and Precipitating Events: This is a 46 year old male, , 3 children (24yo, 18yo, 15yo), disabled, and currently lives alone in an apartment in [place]. Patient has a history of anxiety and is admitted to the medicine service with CHF. Patient states that the staff is not giving his medication as prescribed by Dr. Russell, outpatient psychiatrist. Patient states that he should be receiving Xanax 1 pill Q6 hours but is instead receiving Xanax 1 pill Q12 hours. Patient requests Prozac 40mg/ daily to be given in the morning with first dose of Xanax. Patient denies substance use, states that he last used cocaine 5 months ago. Patient requests his medication dosage and frequency reflect his outpatient schedule as prescribed by Dr. Russell. As per the medical doctor pt has been abusing opiate pain medications for back pain. Patient appeared stated age, dressed in his personal clothing. Patient sat on the edge of the bed, facing the wall for the majority of the interview, with little to no eye contact. Patient appeared agitated and aggravated. Past MedHx: HTN, CHF Past PsycHx: "I don't have no depression. I have Anxiety and need my meds!" Substance Use: Cocaine - pt states last use was 5 months ago Tobacco: pt states he quit 5 months ago, but states the patch, etc is not working. Current Medications: Active Medications Generic Name Dose Route Start Last Admin Trade Name Sarwat PRN Reason Stop Dose Admin Albuterol 2 puff 06/25/17 18:00 06/26/17 08:00 Ventolin Hfa 90 Mcg/Actuation (8 G) IH Not Given RBID [facility] Albuterol/Ipratropium 3 ml 06/25/17 20:00 06/26/17 11:00 Duoneb 3 Mg/0.5 Mg (3 Ml) Ud INH Not Given RQ4 [facility] Alprazolam 1 mg 06/25/17 22:00 06/26/17 13:39 Xanax PO 1 mg Q8H [facility] Administration Amiodarone HCl 200 mg 06/26/17 10:00 06/26/17 09:32 Cordarone PO 200 mg DAILY [facility] Administration Aspirin 325 mg 06/25/17 12:45 06/26/17 09:32 Ecotrin PO 325 mg DAILY [facility] Administration Carvedilol 12.5 mg 06/25/17 18:00 06/26/17 09:33 Coreg PO 12.5 mg BID [facility] Administration Digoxin 0.125 mg 06/25/17 12:45 06/26/17 09:32 Lanoxin PO 0.125 mg DAILY [facility] Administration Diltiazem HCl 30 mg 06/25/17 14:00 06/26/17 13:39 Cardizem PO 30 mg QID [facility] Administration Enalapril Maleate 10 mg 06/25/17 12:45 06/26/17 09:32 Vasotec PO 10 mg DAILY [facility] Administration Fluoxetine HCl 40 mg 06/26/17 10:00 06/26/17 09:33 Prozac PO 40 mg DAILY [facility] Administration Furosemide 40 mg 06/26/17 10:00 06/26/17 09:32 Lasix PO 40 mg DAILY [facility] Administration Gabapentin 300 mg 06/25/17 14:00 06/26/17 13:38 Neurontin PO 300 mg TID [facility] Administration Heparin Sodium (Porcine) 5,000 units 06/26/17 22:00 Heparin SC Q12 [facility] Hydralazine HCl 25 mg 06/26/17 10:00 06/26/17 09:33 Apresoline PO 25 mg DAILY [facility] Administration Hydralazine HCl 5 mg 06/25/17 20:30 Apresoline IVP Q8 PRN Hydrochlorothiazide 50 mg 06/26/17 10:00 06/26/17 09:49 Hydrodiuril PO Not Given DAILY [facility] Ibuprofen 800 mg 06/25/17 18:00 06/26/17 12:42 Motrin Tab PO 800 mg Q6 [facility] Administration Montelukast Sodium 10 mg 06/25/17 22:00 06/25/17 22:37 Singulair PO 10 mg HS [facility] Administration Nicotine 1 patch 06/26/17 10:00 06/26/17 09:33 Nicoderm Cq TD 1 patch DAILY [facility] Administration Oxycodone/Acetaminophen 1 tab 06/25/17 21:31 06/26/17 11:16 Percocet 5/325 Mg Tab PO 06/28/17 21:32 1 tab Q4H PRN Administration pain Rosuvastatin Calcium 5 mg 06/25/17 22:00 06/25/17 22:37 Crestor PO 5 mg HS [facility] Administration Fluticasone/Salmeterol 1 puff 06/25/17 20:00 Advair Diskus 250/50 IH RBID [facility] Spironolactone 25 mg 06/26/17 10:00 06/26/17 09:32 Aldactone PO 25 mg DAILY [facility] Administration Past Psychiatric History - Past Psychiatric History Previous Treatment History: None Pertinent Medical Hx (Current Medical&Sleep Prob, Allergies): Allergies Allergy/AdvReac Type Severity Reaction Status Date / Time apixaban [From Eliquis] Allergy RASH Verified 06/25/17 10:24 clopidogrel bisulfate Allergy RASH Verified 06/25/17 10:24 [From Plavix] enoxaparin sodium Allergy RASH Verified 06/25/17 10:24 [From Lovenox] morphine Allergy RASH Verified 06/25/17 10:24 Digoxin 0.125 mg PO DAILY 05/19/15 Enalapril Maleate 10 mg PO DAILY 05/19/15 hydrALAZINE [Apresoline] 1 tab PO DAILY 10/11/15 Gabapentin [Neurontin] 300 mg PO TID 07/07/16 Montelukast [Singulair] 10 mg PO HS 09/21/16 hydroCHLOROthiazide [Microzide] 50 mg PO DAILY 09/21/16 Albuterol Sulfate [Proair Hfa] 2 puff IH BID 03/05/17 Carvedilol [Coreg] 12.5 mg PO BID 03/05/17 Diltiazem HCl [Cardizem] 30 mg PO QID 03/05/17 Fluoxetine HCl [Prozac] 40 mg PO DAILY 03/05/17 Furosemide [Lasix] 40 mg PO DAILY 03/05/17 Budesonide/Formoterol Fumarate [Symbicort 160-4.5 Mcg Inhaler] 1 aer IH BID Spironolactone [Aldactone] 25 mg PO DAILY 04/23/17 Simvastatin 20 mg PO HS 05/13/17 Aspirin [Aspirin EC] 325 mg PO DAILY 06/05/17 Ibuprofen [Motrin Tab] 800 mg PO Q6 06/05/17 Oxycodone HCl/Acetaminophen [Percocet 10-325 mg Tablet] 1 each PO Q6 PRN Amiodarone HCl [Pacerone] 200 mg PO DAILY #30 tablet 06/08/17 Review of Systems - Review of Systems All systems: reviewed and no additional remarkable complaints except - Psychiatric Psychiatric: Anxiety, Irritability. absent: Suicidal Ideation Mental Status Examination - Personal Presentation Personal Presentation: Looks stated age - Affect Affect: Constricted - Motor Activity Motor Activity: Calm - Reliability in Providing Information Reliability in Providing Information: Poor, due to altered mood - Speech Speech: Organized - Mood Mood: Anxious - Formal Thought Process Formal Thought Process: No Impairment - Obsessions/Compulsions Obsessions: No Compulsions: No - Cognitive Functions Orientation: Person, Place, Situation, Time Sensorium: Alert Attention/Concentration: Attentive Abstract Thinking: Bend Estimate of Intelligence: Below average Judgement: Imparied, as evidence by: Poor judgement, Imparied, as evidence by: Lack of insight into illness - Risk Risk: Diminished functioning - Strength & Assets Inventory Strength & Assets Inventory: Life experience - Limitations Limitations: Living alone DSM 5 DX - DSM 5 DSM 5 Diagnosis: Generalized anxiety disorder Opioid use disorder severe Sedative/hypnotic use disorder severe - Recommended/Plan of Treatment Treatment Recommendations and Plan of Treatment: Generalized anxiety disorder CBT Psychoeducation Supportive therapy, group therapy, individual therapy Ativan 1 mg by mouth every 6 hours when necessary Continue Neurontin 300 mg by mouth 3 times a day Trazodone 50 mg by mouth daily at bedtime Continue fluoxetine 40 mg daily Sedative/hypnotic use disorder severe CBT Psychoeducation Supportive therapy, individual therapy Use OR for abstinence Opioid use disorder severe CBT Psychoeducation Use OR for abstinence
--- NOTE | 2017-06-26 16:57 | CP.PCM.PN ---
Subjective - Date & Time of Evaluation Date of Evaluation: 06/26/17 Time of Evaluation: 12:40 - Subjective Subjective: clinically same Objective - Vital Signs/Intake and Output Vital Signs (last 24 hours): Temp Pulse Resp BP Pulse Ox 97.5 F L 65 20 109/74 94 L 06/26/17 09:00 06/26/17 13:38 06/26/17 09:00 06/26/17 13:38 06/26/17 09:00 Intake and Output: 06/26/17 06/26/17 06:59 18:59 Intake Total 1000 450 Balance 1000 450 - Medications Medications: Current Medications Albuterol (Ventolin Hfa 90 Mcg/Actuation (8 G)) 2 puff IH RBID [facility] Last Admin: 06/26/17 08:00 Dose: Not Given Albuterol/Ipratropium (Duoneb 3 Mg/0.5 Mg (3 Ml) Ud) 3 ml INH RQ4 [facility] Last Admin: 06/26/17 16:35 Dose: Not Given Amiodarone HCl (Cordarone) 200 mg PO DAILY [facility] Last Admin: 06/26/17 09:32 Dose: 200 mg Aspirin (Ecotrin) 325 mg PO DAILY [facility] Last Admin: 06/26/17 09:32 Dose: 325 mg Carvedilol (Coreg) 12.5 mg PO BID [facility] Last Admin: 06/26/17 09:33 Dose: 12.5 mg Digoxin (Lanoxin) 0.125 mg PO DAILY [facility] Last Admin: 06/26/17 09:32 Dose: 0.125 mg Diltiazem HCl (Cardizem) 30 mg PO QID [facility] Last Admin: 06/26/17 13:39 Dose: 30 mg Enalapril Maleate (Vasotec) 10 mg PO DAILY [facility] Last Admin: 06/26/17 09:32 Dose: 10 mg Fluoxetine HCl (Prozac) 40 mg PO DAILY [facility] Last Admin: 06/26/17 09:33 Dose: 40 mg Furosemide (Lasix) 40 mg PO DAILY [facility] Last Admin: 06/26/17 09:32 Dose: 40 mg Gabapentin (Neurontin) 300 mg PO TID [facility] Last Admin: 06/26/17 13:38 Dose: 300 mg Heparin Sodium (Porcine) (Heparin) 5,000 units SC Q12 [facility] Hydralazine HCl (Apresoline) 25 mg PO DAILY [facility] Last Admin: 06/26/17 09:33 Dose: 25 mg Hydralazine HCl (Apresoline) 5 mg IVP Q8 PRN Hydrochlorothiazide (Hydrodiuril) 50 mg PO DAILY [facility] Last Admin: 06/26/17 09:49 Dose: Not Given Ibuprofen (Motrin Tab) 800 mg PO Q6 [facility] Last Admin: 06/26/17 12:42 Dose: 800 mg Lorazepam (Ativan) 1 mg PO Q6 PRN PRN Reason: Agitation Montelukast Sodium (Singulair) 10 mg PO HS [facility] Last Admin: 06/25/17 22:37 Dose: 10 mg Nicotine (Nicoderm Cq) 1 patch TD DAILY [facility] Last Admin: 06/26/17 09:33 Dose: 1 patch Oxycodone/Acetaminophen (Percocet 5/325 Mg Tab) 1 tab PO Q4H PRN PRN Reason: pain Stop: 06/28/17 21:32 Last Admin: 06/26/17 11:16 Dose: 1 tab Rosuvastatin Calcium (Crestor) 5 mg PO [facility] Last Admin: 06/25/17 22:37 Dose: 5 mg Fluticasone/Salmeterol (Advair Diskus 250/50) 1 puff IH RBID [facility] Spironolactone (Aldactone) 25 mg PO DAILY [facility] Last Admin: 06/26/17 09:32 Dose: 25 mg - Labs Labs: PT 15.9 SECONDS (9.7-12.2) H 06/25/17 11:09 INR 1.4 06/25/17 11:09 APTT 38 SECONDS (21-34) H 06/25/17 11:09 - Constitutional Appears: Well - Head Exam Head Exam: ATRAUMATIC, NORMAL INSPECTION, NORMOCEPHALIC - Eye Exam Eye Exam: EOMI, Normal appearance, PERRL - ENT Exam ENT Exam: Mucous Membranes Moist, Normal Exam - Neck Exam Neck Exam: Full ROM, Normal Inspection. absent: Lymphadenopathy - Respiratory Exam Respiratory Exam: Decreased Breath Sounds - Cardiovascular Exam Cardiovascular Exam: REGULAR RHYTHM, +S1, +S2. absent: Murmur - GI/Abdominal Exam GI & Abdominal Exam: Diminished Bowel Sounds - Rectal Exam Rectal Exam: Deferred Assessment and Plan (1) ACS (acute coronary syndrome) Status: Acute (2) ARF (acute renal failure) Status: Acute (3) Abdominal pain Status: Acute (4) Abdominal pain Status: Acute (5) Abdominal pain Status: Acute (6) Anticoagulated on Coumadin Status: Acute (7) Anxiety Status: Acute (8) Anxiety Status: Acute (9) Ascites Status: Acute (10) Atrial dysrhythmia Status: Acute (11) Back pain Status: Acute (12) Benzodiazepine abuse Status: Acute (13) Benzodiazepine dependence Status: Acute (14) CHF (congestive heart failure) Status: Acute (15) CHF (congestive heart failure) Status: Acute (16) CHF (congestive heart failure) Status: Acute (17) CHF (congestive heart failure) Status: Acute (18) CHF exacerbation Status: Acute (19) Chronic back pain Status: Acute (20) Chronic left ventricular systolic dysfunction Status: Acute (21) Chronic obstructive pulmonary disease (COPD) Status: Acute (22) Cocaine abuse Status: Acute (23) Congestive heart failure (CHF) Status: Acute (24) D-dimer, elevated Status: Acute (25) Dyspnea Status: Acute (26) Dyspnea Status: Acute (27) Edema Status: Acute (28) Elevated brain natriuretic peptide (BNP) level Status: Acute (29) Elevated troponin Status: Acute (30) Gram positive sepsis Status: Acute (31) Hypokalemia Status: Acute (32) Hypotension Status: Acute (33) Lower extremity edema Status: Acute (34) Lumbar radiculopathy Status: Acute (35) MRSA (methicillin resistant Staphylococcus aureus) infection Status: Acute (36) MRSA (methicillin resistant Staphylococcus aureus) septicemia Status: Acute (37) MRSA bacteremia Status: Acute (38) Medication refill Status: Acute (39) Narcotic dependence Status: Acute (40) Near syncope Status: Acute (41) Non-STEMI (non-ST elevated myocardial infarction) Status: Acute (42) Non-compliance Status: Acute (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 Status: Acute (44) PVD (peripheral vascular disease) Status: Acute (45) Palpitations Status: Acute (46) Pneumonia Status: Acute (47) Prophylactic measure Status: Acute (48) Pulmonary edema Status: Acute (49) Rapid atrial fibrillation Status: Acute (50) Respiratory distress Status: Acute (51) Sciatica Status: Acute (52) Shortness of breath Status: Acute (53) Skin sore Status: Acute (54) Spleen hematoma Status: Acute (55) Splenic hemorrhage Status: Acute (56) Syncope Status: Acute (57) Venous stasis dermatitis of both lower extremities Status: Acute (58) Afib Status: Chronic (59) Anxiety Status: Chronic (60) Anxiety Status: Chronic (61) Asthma Status: Chronic (62) Atrial fibrillation with rapid ventricular response Status: Chronic (63) CAD (coronary artery disease) Status: Chronic (64) Cocaine use Status: Chronic (65) Congestive heart failure Status: Chronic (66) Degenerative disc disease, lumbar Status: Chronic (67) ETOH abuse Status: Chronic (68) H/O heart artery stent Status: Chronic (69) HTN (hypertension), benign Status: Chronic (70) HTN, goal below 130/80 Status: Chronic (71) Hypertension Status: Chronic (72) Low back pain Status: Chronic (73) Sleep apnea Status: Chronic (74) Cellulitis Status: Suspected (75) Xanax use disorder, mild Status: Suspected (76) Chest pain Status: Resolved - Assessment and Plan (Free Text) Plan: restricted fluid intake Electrolytes monitoring Ventolin inhaler DuoNeb Singulair Heart rate control Vitals monitoring Diuresis with Lasix Labs next a.m. Cardio on board Dr. Hassan
[2017-06-27] MEDS: Albuterol-Ipratrop 3 mg / 0.5 (3 ml) UD INH SCH ×5 (00:39→16:09)
[2017-06-27] MEDS: Oxycodone/Acetaminophen 5/325 mg Tab PO PRN ×5 (01:10→18:06)
--- NOTE | 2017-06-27 06:56 | CP.PCM.PN ---
Subjective - Date & Time of Evaluation Date of Evaluation: 06/27/17 Time of Evaluation: 06:53 - Subjective Subjective: Pt no change less anxious Objective - Vital Signs/Intake and Output Vital Signs (last 24 hours): Temp Pulse Resp BP Pulse Ox 97.3 F L 66 20 123/80 99 06/26/17 23:50 06/27/17 05:10 06/27/17 05:10 06/27/17 04:45 06/27/17 05:10 Intake and Output: 06/26/17 06/27/17 18:59 06:59 Intake Total 450 300 Balance 450 300 - Medications Medications: Current Medications Albuterol (Ventolin Hfa 90 Mcg/Actuation (8 G)) 2 puff IH RBID [facility]S [facility] Last Admin: 06/26/17 08:00 Dose: Not Given Albuterol/Ipratropium (Duoneb 3 Mg/0.5 Mg (3 Ml) Ud) 3 ml INH RQ4 [facility] Last Admin: 06/27/17 04:07 Dose: Not Given Amiodarone HCl (Cordarone) 200 mg PO DAILY [facility] Last Admin: 06/26/17 09:32 Dose: 200 mg Aspirin (Ecotrin) 325 mg PO DAILY [facility] Last Admin: 06/26/17 09:32 Dose: 325 mg Carvedilol (Coreg) 12.5 mg PO BID [facility] Last Admin: 06/26/17 22:22 Dose: 12.5 mg Digoxin (Lanoxin) 0.125 mg PO DAILY [facility] Last Admin: 06/26/17 09:32 Dose: 0.125 mg Diltiazem HCl (Cardizem) 30 mg PO QID [facility] Last Admin: 06/26/17 22:22 Dose: 30 mg Enalapril Maleate (Vasotec) 10 mg PO DAILY [facility] Last Admin: 06/26/17 09:32 Dose: 10 mg Fluoxetine HCl (Prozac) 40 mg PO DAILY [facility] Last Admin: 06/26/17 09:33 Dose: 40 mg Furosemide (Lasix) 40 mg PO DAILY [facility] Last Admin: 06/26/17 09:32 Dose: 40 mg Gabapentin (Neurontin) 300 mg PO TID [facility] Last Admin: 06/26/17 17:52 Dose: 300 mg Heparin Sodium (Porcine) (Heparin) 5,000 units SC Q12 [facility] Last Admin: 06/26/17 22:26 Dose: Not Given Hydralazine HCl (Apresoline) 25 mg PO DAILY [facility] Last Admin: 06/26/17 09:33 Dose: 25 mg Hydralazine HCl (Apresoline) 5 mg IVP Q8 PRN Hydrochlorothiazide (Hydrodiuril) 50 mg PO DAILY [facility] Last Admin: 06/26/17 09:49 Dose: Not Given Ibuprofen (Motrin Tab) 800 mg PO Q6 [facility] Last Admin: 06/27/17 05:54 Dose: Not Given Lorazepam (Ativan) 1 mg PO Q6 PRN PRN Reason: Agitation Last Admin: 06/27/17 04:27 Dose: 1 mg Montelukast Sodium (Singulair) 10 mg PO HS [facility] Last Admin: 06/26/17 22:23 Dose: 10 mg Nicotine (Nicoderm Cq) 1 patch TD DAILY [facility] Last Admin: 06/26/17 09:33 Dose: 1 patch Oxycodone/Acetaminophen (Percocet 5/325 Mg Tab) 1 tab PO Q4H PRN PRN Reason: pain Stop: 06/28/17 21:32 Last Admin: 06/27/17 05:16 Dose: 1 tab Rosuvastatin Calcium (Crestor) 5 mg PO HS [facility] Last Admin: 06/26/17 22:23 Dose: 5 mg Fluticasone/Salmeterol (Advair Diskus 250/50) 1 puff IH RBID [facility] 234 B[facility]S [facility] Spironolactone (Aldactone) 25 mg PO DAILY [facility] Last Admin: 06/26/17 09:32 Dose: 25 mg - Labs Labs: PT 15.9 SECONDS (9.7-12.2) H 06/25/17 11:09 INR 1.4 06/25/17 11:09 APTT 38 SECONDS (21-34) H 06/25/17 11:09 - Constitutional Appears: Agitated - Head Exam Head Exam: ATRAUMATIC - Eye Exam Eye Exam: Normal appearance - ENT Exam ENT Exam: Mucous Membranes Moist - Respiratory Exam Respiratory Exam: NORMAL BREATHING PATTERN - Cardiovascular Exam Cardiovascular Exam: REGULAR RHYTHM, +S1, +S2 - GI/Abdominal Exam GI & Abdominal Exam: Soft - Extremities Exam Extremities Exam: Pedal Edema - Neurological Exam Neurological Exam: Alert - Psychiatric Exam Psychiatric exam: Anxious - Skin Skin Exam: Dry Assessment and Plan (1) CHF (congestive heart failure) Assessment & Plan: continue amiodorone vt prophylaxis still refuses ICD will follow continue diuresis and chf meds full 325 asa non compliant with meds Status: Acute
[2017-06-27] MEDS: Albuterol HFA 90 mcg/actuation (8 g) IH SCH (08:21)
[2017-06-27] MEDS: Aspirin 325 mg EC Tablets PO SCH (10:06)
[2017-06-27] MEDS: Digoxin 125 mcg (0.125 mg) Tab PO SCH (10:22)
[2017-06-27 10:23] VITALS: PULSE 90
--- NOTE | 2017-06-27 12:15 | CP.PCM.PN ---
Subjective - Date & Time of Evaluation Date of Evaluation: 06/27/17 Time of Evaluation: 11:40 - Subjective Subjective: clinically same Objective - Vital Signs/Intake and Output Vital Signs (last 24 hours): Temp Pulse Resp BP Pulse Ox 98.4 F 62 20 143/104 H 97 06/27/17 08:00 06/27/17 08:00 06/27/17 08:00 06/27/17 10:13 06/27/17 08:00 Intake and Output: 06/27/17 06/27/17 06:59 18:59 Intake Total 300 Balance 300 - Medications Medications: Current Medications Albuterol (Ventolin Hfa 90 Mcg/Actuation (8 G)) 2 puff IH RBID [facility] Last Admin: 06/27/17 08:21 Dose: Not Given Albuterol/Ipratropium (Duoneb 3 Mg/0.5 Mg (3 Ml) Ud) 3 ml INH RQ4 [facility] Last Admin: 06/27/17 12:00 Dose: Not Given Amiodarone HCl (Cordarone) 200 mg PO DAILY [facility] Last Admin: 06/27/17 10:13 Dose: 200 mg Aspirin (Ecotrin) 325 mg PO DAILY [facility] Last Admin: 06/27/17 10:06 Dose: 325 mg Carvedilol (Coreg) 12.5 mg PO BID [facility] Last Admin: 06/27/17 10:12 Dose: 12.5 mg Digoxin (Lanoxin) 0.125 mg PO DAILY [facility] Last Admin: 06/27/17 10:22 Dose: 0.125 mg Diltiazem HCl (Cardizem) 30 mg PO QID [facility] Last Admin: 06/27/17 10:22 Dose: 30 mg Enalapril Maleate (Vasotec) 10 mg PO DAILY [facility] Last Admin: 06/27/17 10:12 Dose: 10 mg Fluoxetine HCl (Prozac) 40 mg PO DAILY [facility] Last Admin: 06/27/17 10:06 Dose: 40 mg Furosemide (Lasix) 40 mg PO DAILY [facility] Last Admin: 06/27/17 10:13 Dose: 40 mg Gabapentin (Neurontin) 300 mg PO TID [facility] Last Admin: 06/27/17 10:07 Dose: 300 mg Heparin Sodium (Porcine) (Heparin) 5,000 units SC Q12 [facility] Last Admin: 06/27/17 10:06 Dose: Not Given Hydralazine HCl (Apresoline) 25 mg PO DAILY [facility] Last Admin: 06/27/17 10:13 Dose: 25 mg Hydralazine HCl (Apresoline) 5 mg IVP Q8 PRN Hydrochlorothiazide (Hydrodiuril) 50 mg PO DAILY [facility] Last Admin: 06/27/17 10:13 Dose: 50 mg Ibuprofen (Motrin Tab) 800 mg PO Q6 [facility] Last Admin: 06/27/17 05:54 Dose: Not Given Lorazepam (Ativan) 1 mg PO Q6 PRN PRN Reason: Agitation Last Admin: 06/27/17 10:22 Dose: 1 mg Montelukast Sodium (Singulair) 10 mg PO HS [facility] Last Admin: 06/26/17 22:23 Dose: 10 mg Nicotine (Nicoderm Cq) 1 patch TD DAILY [facility] Last Admin: 06/27/17 10:06 Dose: 1 patch Oxycodone/Acetaminophen (Percocet 5/325 Mg Tab) 1 tab PO Q4H PRN PRN Reason: pain Stop: 06/28/17 21:32 Last Admin: 06/27/17 10:13 Dose: 1 tab Rosuvastatin Calcium (Crestor) 5 mg PO [facility] Last Admin: 06/26/17 22:23 Dose: 5 mg Fluticasone/Salmeterol (Advair Diskus 250/50) 1 puff IH RBID [facility] Spironolactone (Aldactone) 25 mg PO DAILY [facility] Last Admin: 06/27/17 10:13 Dose: 25 mg - Labs Labs: PT 15.9 SECONDS (9.7-12.2) H 06/25/17 11:09 INR 1.4 06/25/17 11:09 APTT 38 SECONDS (21-34) H 06/25/17 11:09 - Constitutional Appears: Well - Head Exam Head Exam: ATRAUMATIC, NORMAL INSPECTION, NORMOCEPHALIC - Eye Exam Eye Exam: EOMI, Normal appearance, PERRL Pupil Exam: NORMAL ACCOMODATION, PERRL - ENT Exam ENT Exam: Mucous Membranes Moist, Normal Exam - Neck Exam Neck Exam: Full ROM, Normal Inspection. absent: Lymphadenopathy - Respiratory Exam Respiratory Exam: Decreased Breath Sounds - Cardiovascular Exam Cardiovascular Exam: REGULAR RHYTHM, +S1, +S2 - GI/Abdominal Exam GI & Abdominal Exam: Soft, Diminished Bowel Sounds - Rectal Exam Rectal Exam: Deferred Assessment and Plan (1) ACS (acute coronary syndrome) Status: Acute (2) ARF (acute renal failure) Status: Acute (3) Abdominal pain Status: Acute (4) Abdominal pain Status: Acute (5) Abdominal pain Status: Acute (6) Anticoagulated on Coumadin Status: Acute (7) Anxiety Status: Acute (8) Anxiety Status: Acute (9) Ascites Status: Acute (10) Atrial dysrhythmia Status: Acute (11) Back pain Status: Acute (12) Benzodiazepine abuse Status: Acute (13) Benzodiazepine dependence Status: Acute (14) CHF (congestive heart failure) Status: Acute (15) CHF (congestive heart failure) Status: Acute (16) CHF (congestive heart failure) Status: Acute (17) CHF (congestive heart failure) Status: Acute (18) CHF exacerbation Status: Acute (19) Chronic back pain Status: Acute (20) Chronic left ventricular systolic dysfunction Status: Acute (21) Chronic obstructive pulmonary disease (COPD) Status: Acute (22) Cocaine abuse Status: Acute (23) Congestive heart failure (CHF) Status: Acute (24) D-dimer, elevated Status: Acute (25) Dyspnea Status: Acute (26) Dyspnea Status: Acute (27) Edema Status: Acute (28) Elevated brain natriuretic peptide (BNP) level Status: Acute (29) Elevated troponin Status: Acute (30) Gram positive sepsis Status: Acute (31) Hypokalemia Status: Acute (32) Hypotension Status: Acute (33) Lower extremity edema Status: Acute (34) Lumbar radiculopathy Status: Acute (35) MRSA (methicillin resistant Staphylococcus aureus) infection Status: Acute (36) MRSA (methicillin resistant Staphylococcus aureus) septicemia Status: Acute (37) MRSA bacteremia Status: Acute (38) Medication refill Status: Acute (39) Narcotic dependence Status: Acute (40) Near syncope Status: Acute (41) Non-STEMI (non-ST elevated myocardial infarction) Status: Acute (42) Non-compliance Status: Acute (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 Status: Acute (44) PVD (peripheral vascular disease) Status: Acute (45) Palpitations Status: Acute (46) Pneumonia Status: Acute (47) Prophylactic measure Status: Acute (48) Pulmonary edema Status: Acute (49) Rapid atrial fibrillation Status: Acute (50) Respiratory distress Status: Acute (51) Sciatica Status: Acute (52) Shortness of breath Status: Acute (53) Skin sore Status: Acute (54) Spleen hematoma Status: Acute (55) Splenic hemorrhage Status: Acute (56) Syncope Status: Acute (57) Venous stasis dermatitis of both lower extremities Status: Acute (58) Afib Status: Chronic (59) Anxiety Status: Chronic (60) Anxiety Status: Chronic (61) Asthma Status: Chronic (62) Atrial fibrillation with rapid ventricular response Status: Chronic (63) CAD (coronary artery disease) Status: Chronic (64) Cocaine use Status: Chronic (65) Congestive heart failure Status: Chronic (66) Degenerative disc disease, lumbar Status: Chronic (67) ETOH abuse Status: Chronic (68) H/O heart artery stent Status: Chronic (69) HTN (hypertension), benign Status: Chronic (70) HTN, goal below 130/80 Status: Chronic (71) Hypertension Status: Chronic (72) Low back pain Status: Chronic (73) Sleep apnea Status: Chronic (74) Cellulitis Status: Suspected (75) Xanax use disorder, mild Status: Suspected (76) Chest pain Status: Resolved - Assessment and Plan (Free Text) Plan: Continue as ordered Amiodarone DVT prophylaxis Discussed with family Noncompliant with meds Cardio consult on board Restricted fluid intake Ventolin inhaler DuoNeb Heart rate control Vitals monitoring Diuresis with Lasix Labs next a.m.
[2017-06-27 15:27] VITALS: BP 147/89; PULSE 103; TEMP 97.5; O2SAT 96
--- NOTE | 2017-06-27 18:27 | CP.PCM.PN ---
Subjective - Date & Time of Evaluation Date of Evaluation: 06/27/17 Time of Evaluation: 18:20 - Subjective Subjective: PgY3 House Doctor note - Called because patient wants to sign out AMA. Per nursing, Dr. Ac Razo was notified. Patient was AAOx3. Patient breathign heavily. No rales, rhonchi or wheezing on auscultation. Patient has S3 on auscultation of heart. Patient reports his is aware the risks of leaving include but are not limited to of respiratory failure, syncope, cardiac failure, trauma, . Patient signed AMA form with these risks on it. Objective - Vital Signs/Intake and Output Vital Signs (last 24 hours): Temp Pulse Resp BP Pulse Ox 97.5 F L 103 H 20 147/89 96 06/27/17 15:24 06/27/17 15:24 06/27/17 15:24 06/27/17 18:06 06/27/17 15:24 Intake and Output: 06/27/17 06/27/17 06:59 18:59 Intake Total 300 Balance 300 - Medications Medications: Current Medications Albuterol (Ventolin Hfa 90 Mcg/Actuation (8 G)) 2 puff IH RBID [facility] Last Admin: 06/27/17 08:21 Dose: Not Given Albuterol/Ipratropium (Duoneb 3 Mg/0.5 Mg (3 Ml) Ud) 3 ml INH RQ4 [facility] Last Admin: 06/27/17 16:09 Dose: Not Given Amiodarone HCl (Cordarone) 200 mg PO DAILY [facility] Last Admin: 06/27/17 10:13 Dose: 200 mg Aspirin (Ecotrin) 325 mg PO DAILY [facility] Last Admin: 06/27/17 10:06 Dose: 325 mg Carvedilol (Coreg) 12.5 mg PO BID [facility] Last Admin: 06/27/17 18:06 Dose: 12.5 mg Digoxin (Lanoxin) 0.125 mg PO DAILY [facility] Last Admin: 06/27/17 10:22 Dose: 0.125 mg Diltiazem HCl (Cardizem) 30 mg PO QID [facility] Last Admin: 06/27/17 14:12 Dose: 30 mg Enalapril Maleate (Vasotec) 10 mg PO DAILY [facility] Last Admin: 06/27/17 10:12 Dose: 10 mg Fluoxetine HCl (Prozac) 40 mg PO DAILY [facility] Last Admin: 06/27/17 10:06 Dose: 40 mg Furosemide (Lasix) 40 mg PO DAILY [facility] Last Admin: 06/27/17 10:13 Dose: 40 mg Gabapentin (Neurontin) 300 mg PO TID [facility] Last Admin: 06/27/17 18:06 Dose: 300 mg Heparin Sodium (Porcine) (Heparin) 5,000 units SC Q12 [facility] Last Admin: 06/27/17 10:06 Dose: Not Given Hydralazine HCl (Apresoline) 25 mg PO DAILY [facility] Last Admin: 06/27/17 10:13 Dose: 25 mg Hydralazine HCl (Apresoline) 5 mg IVP Q8 PRN Hydrochlorothiazide (Hydrodiuril) 50 mg PO DAILY [facility] Last Admin: 06/27/17 10:13 Dose: 50 mg Ibuprofen (Motrin Tab) 800 mg PO Q6 [facility] Last Admin: 06/27/17 18:01 Dose: Not Given Lorazepam (Ativan) 1 mg PO Q6 PRN PRN Reason: Agitation Last Admin: 06/27/17 15:45 Dose: 1 mg Montelukast Sodium (Singulair) 10 mg PO HS [facility] Last Admin: 06/26/17 22:23 Dose: 10 mg Nicotine (Nicoderm Cq) 1 patch TD DAILY [facility] Last Admin: 06/27/17 10:06 Dose: 1 patch Oxycodone/Acetaminophen (Percocet 5/325 Mg Tab) 1 tab PO Q4H PRN PRN Reason: pain Stop: 06/28/17 21:32 Last Admin: 06/27/17 18:06 Dose: 1 tab Rosuvastatin Calcium (Crestor) 5 mg PO HS [facility] Last Admin: 06/26/17 22:23 Dose: 5 mg Fluticasone/Salmeterol (Advair Diskus 250/50) 1 puff IH RBID [facility] Spironolactone (Aldactone) 25 mg PO DAILY [facility] Last Admin: 06/27/17 10:13 Dose: 25 mg - Labs Labs: PT 15.9 SECONDS (9.7-12.2) H 06/25/17 11:09 INR 1.4 06/25/17 11:09 APTT 38 SECONDS (21-34) H 06/25/17 11:09
--- NOTE | 2017-07-06 09:23 | CARD ---
APPROVED REPORT EKG Measurement Heart [id number] <Conclusion> Atrial fibrillation with rapid ventricular response Pulmonary disease pattern Left anterior fascicular block Inferior infarct, age undetermined ST & T wave abnormality, consider anterolateral ischemia Prolonged QT Abnormal ECG
== END 2017-06-27 18:25 | disposition left against medical advice (07) | DRG 292 ==
LOC: C.ER 10:15 → C.9E 11:55 → C.6T 13:46
PROVIDERS: ADMIT Internal Medicine Nephrology; ATTEND Internal Medicine Nephrology
DX: I11.0 Hypertensive heart disease with heart failure (principal); F11.20 Opioid dependence, uncomplicated; I50.22 Chronic systolic (congestive) heart failure; F41.1 Generalized anxiety disorder; J44.9 Chronic obstructive pulmonary disease, unspecified; I48.91 Unspecified atrial fibrillation; I25.10 Atherosclerotic heart disease of native coronary artery without angina pectoris; G47.33 Obstructive sleep apnea (adult) (pediatric); F31.9 Bipolar disorder, unspecified; D73.5 Infarction of spleen; F14.90 Cocaine use, unspecified, uncomplicated; R10.9 Unspecified abdominal pain; E66.9 Obesity, unspecified; Z87.891 Personal history of nicotine dependence; Z91.14 Patient's other noncompliance with medication regimen; Z95.5 Presence of coronary angioplasty implant and graft

== ENCOUNTER 2017-07-10 07:57 | Inpatient (IN) | payer MEDICARE, MEDICAID ==
[2017-07-10 07:57] VITALS: BMI 38.7
--- NOTE | 2017-07-10 08:22 | C.PDOC ---
History Of Present Illness 46 y/o male with Hx of HTN, Anxiety, A-fib, CHF, Emphysema, Chronic peripheral edema and sleep apnea presents to ED with complaints of abdomen distention and anxiety. Patient states he has retained water in his abdomen and also complaints of lower extremities leg edema and itchy rash. At ed patient is requesting Benadryl for rash and denies knowing where rash came from. Patient has multiple admissions to hospital, last one on 06/25/17 for CHF. Once admitted patient is frequently disruptive and sustained using his own medication and narcotics while at hospital. Patient denies headache, fever, chills or any other complaints at this time. Time Seen by Provider: 07/10/17 08:18 Chief Complaint (Nursing): Shortness Of Breath History Per: Patient History/Exam Limitations: no limitations Onset/Duration Of Symptoms: Days Current Symptoms Are (Timing): Still Present Past Medical History Reviewed: Historical Data, Nursing Documentation, Vital Signs Vital Signs: Last Vital Signs Temp 98.2 F 07/10/17 08:11 Pulse 89 07/10/17 08:11 Resp 18 07/10/17 08:11 BP Pulse Ox 97 07/10/17 08:39 - Medical History PMH: Anxiety, Arthritis, Asthma, Atrial Fibrillation, Back Problems, Bipolar Disorder, CAD, Cardia Arrhythmia, CHF, COPD, Depression, Emphysema, HTN, Hypercholesterolemia, Peripheral Edema, Sleep Apnea, Chronic Pain (Lower Back Pain) Surgical History: Appendectomy (2008), Coronary Stent (2008 - 2012 4 stents) - [facility] Procedures CORONAR ARTERIOGR-2 CATH (07/06/13) DRAINAGE OF SPLEEN, PERCUTANEOUS APPROACH (03/05/17) INJECT/INFUSE NEC (02/22/14) LEFT HEART CARDIAC CATH (07/06/13) LT HEART ANGIOCARDIOGRAM (07/06/13) NEBULIZER THERAPY (03/28/14) NON-INVASIVE MECHANICAL VENTILATION (03/26/15) TRANSFUSE NONAUT FROZEN PLASMA IN PERIPH VEIN, PERC (02/21/17) Family History: States: Unknown Family Hx, CAD, Diabetes - Social History Hx Tobacco Use: Yes Hx Alcohol Use: No Hx Substance Use: Yes (coccaine 4months ago) - Immunization History Hx Tetanus Toxoid Vaccination: Yes Hx Influenza Vaccination: Yes Hx Pneumococcal Vaccination: Yes (08/2014) Review Of Systems Except As Marked, All Systems Reviewed And Found Negative. Constitutional: Negative for: Fever, Chills Cardiovascular: Negative for: Chest Pain Gastrointestinal: Negative for: Nausea, Vomiting Genitourinary: Negative for: Dysuria Musculoskeletal: Negative for: Back Pain Skin: Positive for: Rash Psych: Positive for: Anxiety Physical Exam - Physical Exam Appears: Non-toxic, No Acute Distress Skin: Warm, Rash (Pustular rash to extremities with erythema ) Head: Atraumatic, Normacephalic Oral Mucosa: Moist Neck: Supple Chest: Symmetrical Cardiovascular: Rhythm Regular Respiratory: Rales (Bibasilar), No Rhonchi, No Wheezing Gastrointestinal/Abdominal: No Tenderness, Distention, No Guarding, No Rebound, Other (Obese) Extremity: Capillary Refill (<2 seconds), No Deformity, No Swelling, Other ( Small Lesion to lower extremities) Extremity: Bilateral: Normal ROM Neurological/Psych: Oriented x3, Normal Speech ED Course And Treatment - Laboratory Results Result Diagrams: 07/10/17 09:11 07/10/17 10:09 O2 Sat by Pulse Oximetry: 97 (RA) Pulse Ox Interpretation: Normal Medical Decision Making Medical Decision Making: Spoke with Dr. Ocampo. Recommends admission for CHF and diuresis Disposition Discussed With : Roque Ocampo Jr. Counseled Patient/Family Regarding: Studies Performed, Diagnosis - Disposition Disposition: HOME/ ROUTINE Disposition Time: 11:03 Condition: STABLE - Clinical Impression Clinical Impression: Dyspnea, Congestive heart failure - Scribe Statement The provider has reviewed the documentation as recorded by the Lashawnibpradeep Bacon All medical record entries made by the Lashawnibe were at my direction and personally dictated by me. I have reviewed the chart and agree that the record accurately reflects my personal performance of the history, physical exam, medical decision making, and the department course for this patient. I have also personally directed, reviewed, and agree with the discharge instructions and disposition. Decision To Admit - Pt Status Changed To: Hospital Disposition Of: Inpatient - Admit Certification Admit to Inpatient:: After my assessment, the patient will require hospitalization for at least two midnights. This is because of the severity of symptoms shown, intensity of services needed, and/or the medical risk in this patient being treated as an outpatient. - InPatient: Physician Admission Certification: I certify that this patient requires 2 or more midnights of care for the following reason:: chronic CHF, SOB, complicated by substance abuse - . Bed Request Type: Telemetry Patient Diagnosis: Dyspnea, Congestive heart failure
[2017-07-10] MEDS ORDERED: DiphenhydrAMINE 50 mg/ml Inj IVP STA (08:28)
--- NOTE | 2017-07-10 08:42 | RAD ---
PROCEDURE: CHEST RADIOGRAPH, 1 VIEW HISTORY: SOB COMPARISON: Portable chest 06/25/2017 FINDINGS: LUNGS: Clear. PLEURA: No pneumothorax or pleural fluid seen. CARDIOVASCULAR: Cardiomegaly is stable. Pulmonary vascular pattern appears diminished suggesting improved pulmonary venous congestion. Borderline residual noted. OSSEOUS STRUCTURES: No significant abnormalities. VISUALIZED UPPER ABDOMEN: Normal. OTHER FINDINGS: None. IMPRESSION: Improved CHF pattern with cardiomegaly stable and significantly diminished pulmonary vascular pattern. Trace residual cephalization may be present. No acute infiltrate or pleural effusion identified once again.
[2017-07-10] MEDS ORDERED: DiphenhydrAMINE 50 mg/ml Inj ONE (09:12)
[2017-07-10 09:19] LABS: BASO # 0.1 K/uL (0.0-0.2); BASO % 1.2 % (0.0-2.0); EOS # 0.2 K/uL (0.0-0.7); EOS % 2.1 % (0.0-4.0); HEMATOCRIT 40.5 % (35.0-51.0); LYMPH # 1.9 K/uL (1.0-4.3); LYMPH % 17.7 % (20.0-40.0); MEAN CORPUSCULAR HEMOGLOBIN 23.8 pg (27.0-31.0); MEAN CORPUSCULAR HGB CONC 30.5 g/dL (33.0-37.0); MEAN PLATELET VOLUME 7.9 fL (7.2-11.7); MONO # 1.3 K/uL (0.0-0.8); MONO % 11.7 % (0.0-10.0); WHITE BLOOD COUNT 10.9 K/uL (4.8-10.8)
[2017-07-10 10:23] LABS: ALB/GLOB RATIO 0.7 (1.0-2.1); ALKALINE PHOSPHATASE 78 U/L (38-126); ALT/SGPT 32 U/L (21-72); AST/SGOT 48 U/L (17-59); BILIRUBIN,TOTAL 1.4 mg/dL (0.2-1.3); BLOOD UREA NITROGEN 25 mg/dL (9-20); CALCIUM 9.1 mg/dl (8.6-10.4); CARBON DIOXIDE 20 mmol/L (22-30); CHLORIDE 102 mmol/L (98-107); GFR AFRICAN-AMERICAN > 60; GLUCOSE,RANDOM 106 mg/dL (75-110); POTASSIUM 4.3 mmol/L (3.6-5.2); SODIUM 141 mmol/L (132-148); TOTAL PROTEIN 8.6 g/dL (6.3-8.3)
[2017-07-10 11:09] LABS: URINE BILIRUBIN NEGATIVE (NEGATIVE); URINE BLOOD NEGATIVE (NEGATIVE); URINE COLOR Yellow (YELLOW); URINE GLUCOSE (UA) NORMAL (Normal); URINE KETONE NEGATIVE (NEGATIVE); URINE LEUKOCYTE ESTERASE NEG Leu/uL (Negative); URINE PROTEIN NEGATIVE (NEGATIVE); URINE UROBILINOGEN NORMAL mg/dL (0.2-1.0); WBC URINE < 1 /hpf (0-5)
--- NOTE | 2017-07-10 15:46 | CP.PCM.HP ---
History of Present Illness - History of Present Illness History of Present Illness: cc: "distended stomach" HPI: Patient is a 46 year old male presenting to the hospital complaining of retaining fluid in his abdomen. He states that for the past 2 days, he feels like his stomach has been getting increasingly distended, and as a result, uncomfortable/painful. He states that he is compliant with all his medications. He says this has happened previously. He denies any chest pain, dyspnea, nausea , vomiting, changes in bowel movement. Patient also reports that for the past week, he has been developing scabs along both legs which drain clear fluid. He says he has been trying to clean the areas with hydrogen peroxide, but says they end up itching afterwards. He says they aren't painful. He says his legs are chronically edematous and erythematous. He denies fevers or chills. PMH: HTN, CAD, CHF, Afib, COPD, ARLENE, Herniated discs L-spine, Bipolar/Depression , Asthma, hx of splenic infarct Meds: Diltiazem, ASA, Carvedilol, digoxin, enalapril, HCTZ, k-dur, Lasix, Albuterol, Prozac, Simvastatin, Montelukast, Tizanidine, Xanax, Gabapentin. Allergy: Apixaban, clopidogrel, enoxaparin, Morphine PSH: Appendectomy (2008), Coronary stents x4 ([id number]) Hosp: multiple admissions recently for SOB, splenic hematoma and bacteremia FH: Denies Social: Denies tobacco use- wears a nicotine patch. Social alcohol use; Admits to Cocaine use Present on Admission - Present on Admission Any Indicators Present on Admission: No Review of Systems - Constitutional Constitutional: absent: Chills, Daytime Sleepiness, Excessive Sweating, Fever - EENT Eyes: absent: Blurred Vision, Change in Vision Ears: absent: Ear Discharge, Ear Pain - Cardiovascular Cardiovascular: Dyspnea on Exertion. absent: Chest Pain, Chest Pain at Rest, Chest Pain with Activity, Claudication, Dyspnea - Respiratory Respiratory: Dyspnea on Exertion. absent: Cough, Dyspnea, Snoring - Gastrointestinal Gastrointestinal: Abdominal Pain, Bloating. absent: Change in Bowel Habits, Change in Stool Character, Dyspepsia, Dysphagia, Early Satiety, Hematochezia, Nausea, Vomiting - Genitourinary Genitourinary: absent: Difficulty Urinating, Dysuria, Flank Pain - Musculoskeletal Musculoskeletal: absent: Deformity, Neck Pain, Radiating Pain into Limb - Neurological Neurological: absent: Abnormal Movements, Tingling, Weakness - Psychiatric Psychiatric: absent: Auditory Hallucinations, Irritability, Paranoia, Suicidal Ideation - Endocrine Endocrine: absent: Heat Intolorance, Polyuria Past Patient History - Infectious Disease Hx of Infectious Diseases: None - Tetanus Immunizations Tetanus Immunization: Up to Date - Past Medical History & Family History Past Medical History?: Yes - Past Social History Smoking Status: Former Smoker Chewing Tobacco Use: No Cigar Use: No Drugs: Cocaine - CARDIAC Hx Atrial Fibrillation: Yes Hx Cardia Arrhythmia: Yes Hx Congestive Heart Failure: Yes Hx Hypercholesterolemia: Yes Hx Hypertension: Yes Hx Peripheral Edema: Yes - PULMONARY Hx Asthma: Yes Hx Chronic Obstructive Pulmonary Disease (COPD): Yes Hx Emphysema: Yes Hx Sleep Apnea: Yes - NEUROLOGICAL Hx Neurological Disorder: No - HEENT Hx HEENT Problems: No - RENAL Hx Chronic Kidney Disease: No - ENDOCRINE/METABOLIC Hx Endocrine Disorders: No - HEMATOLOGICAL/ONCOLOGICAL Hx Blood Disorders: Yes Other/Comment: MRSA Hx - INTEGUMENTARY Hx Dermatological Problems: Yes - MUSCULOSKELETAL/RHEUMATOLOGICAL Hx Arthritis: Yes Hx Falls: Yes - GASTROINTESTINAL Hx Gastrointestinal Disorders: Yes Other/Comment: Splenic Hematoma - GENITOURINARY/GYNECOLOGICAL Hx Genitourinary Disorders: No - PSYCHIATRIC Hx Anxiety: Yes Hx Bipolar Disorder: Yes Hx Depression: Yes Hx Substance Use: Yes (coccaine 4months ago) - SURGICAL HISTORY Hx Appendectomy: Yes (2008) Hx Coronary Stent: Yes (2008 - 2012 4 stents) - ANESTHESIA Hx Anesthesia: Yes Hx Anesthesia Reactions: No Hx Malignant Hyperthermia: No Meds Allergies/Adverse Reactions: Allergies Allergy/AdvReac Type Severity Reaction Status Date / Time apixaban [From Eliquis] Allergy RASH Verified 07/10/17 08:07 clopidogrel bisulfate Allergy RASH Verified 07/10/17 08:07 [From Plavix] enoxaparin sodium Allergy RASH Verified 07/10/17 08:07 [From Lovenox] morphine Allergy RASH Verified 07/10/17 08:07 Physical Exam - Constitutional Appears: Non-toxic, No Acute Distress, In Acute Distress, Older Than Stated Age - Head Exam Head Exam: ATRAUMATIC, NORMAL INSPECTION, NORMOCEPHALIC - Eye Exam Pupil Exam: NORMAL ACCOMODATION, PERRL - ENT Exam ENT Exam: Mucous Membranes Moist - Respiratory Exam Respiratory Exam: Clear to Auscultation Bilateral, NORMAL BREATHING PATTERN. absent: Decreased Breath Sounds, Prolonged Expiratory Phase, Rales - Cardiovascular Exam Cardiovascular Exam: REGULAR RHYTHM - GI/Abdominal Exam GI & Abdominal Exam: Distended, Normal Bowel Sounds, Soft, Tenderness. absent: Diminished Bowel Sounds, Guarding, Hernia, Hypoactive Bowel Sounds, Rebound - Extremities Exam Extremities exam: Positive for: pedal edema Additional comments: erythema and chronic lymphedematous changes. Numerous scabs and ulcerations, fresh discharge noted. Results - Vital Signs Recent Vital Signs: Last Vital Signs Temp 98.3 F 07/10/17 14:23 Pulse 95 H 07/10/17 14:23 Resp 22 07/10/17 14:23 BP 143/100 H 07/10/17 14:23 Pulse Ox 96 07/10/17 14:23 - Labs Result Diagrams: 07/10/17 09:11 07/10/17 10:09 Assessment & Plan - Assessment and Plan (Free Text) Assessment: Abdominal Pain * Likely from fluid retention due to CHF * CT Abdomen & Pelvis w/ IV contrast from 06/04/17: 1. The liver appears ill- defined and there is a question of subcapsular hematoma, versus motion artifact. Close clinical correlation is requested. 2. Spleen demonstrates a small fluid collection and a small amount of air adjacent and extending along the left inner portion of the abdominal wall. Unclear if this represents abscess or hematoma. Has there been recently the presence of a pigtail drainage catheter? Please correlate clinically. 3. There is retroperitoneal lymphadenopathy. 4. There is harika mesentery, nonspecific but can be seen in lymphoma. Please correlate clinically. 5. There is trace perihepatic ascites and there is trace fluid in both paracolic gutters. This is abnormal though nonspecific. 6. Additional incidental and/or chronic findings as described. * Lasix 40 mg IV Q8H * Percocet 5/325 mg 2 tab po Q6h PRN for severe pain Chronic Lymphedema/ Ulcerations * Apply Silvadene cream 1% TOP BID on wounds CHF * CXR: Cardiomegaly, venous congestion * BNP: 7890 * ECHO (02/2017): LV systolic function severely reduced. LV mildly dilated. Severe global hypokinesis of LV. Negative for endocarditis. * Lasix 40 mg IV Q8H * HCTZ 50mg PO daily * Aldactone 25mg PO daily * I's & O's, daily weight Anxiety and depression * Prozac 40mg po daily * Xanax 1mg po Q6H PRN anxiety Afib * EKG in ED: Afib , Rate 118 on admission * Cardizem 30mg po q6H * Digoxin 0.125 mg PO daily * aspirin 325 mg po daily COPD * O2 2LNC * Duonebs Q6H PRN * Singulair 10 mg PO HS HTN * Lasix 40 mg IV Q8h * Cardizem 30mg po q6h * restarted home meds: HCTZ 50mg PO daily, Aldactone 25mg PO daily * Enalapril 10 mg PO daily CAD * Crestor 5mg PO HS ARLENE * Pt denies using BIPAP at night * 2L O2 PRN Tobacco Use Disorder * Smoking Cessation * Nicoderm Patch Cocaine Use Disorder * UDS + for cocaine * HOLD BB Prophylactic Measures * GI PPX: Protonix 40mg PO daily * DVT PPX: SCDs, VTE c/i due to hx of splenic infarct * All medical management as per Dr. Ocampo
[2017-07-10] MEDS: Oxycodone/Acetaminophen 5/325 mg Tab PO PRN ×2 (17:10→23:07)
[2017-07-10] MEDS: Albuterol HFA 90 mcg/actuation (8 g) IH SCH (19:35)
[2017-07-10] MEDS: Silver Sulfadiazine 1% Cream (20 gm) TOP SCH (22:40)
[2017-07-10] MEDS ORDERED: Albuterol HFA 90 mcg/actuation (8 g) INH STA (23:43)
[2017-07-11] MEDS: Oxycodone/Acetaminophen 5/325 mg Tab PO PRN ×3 (05:26→17:41)
[2017-07-11 06:18] LABS: BASO # 0.1 K/uL (0.0-0.2); BASO % 1.2 % (0.0-2.0); EOS # 0.4 K/uL (0.0-0.7); EOS % 3.6 % (0.0-4.0); MEAN CELL VOLUME 76.2 fL (80.0-94.0); MEAN CORPUSCULAR HEMOGLOBIN 24.1 pg (27.0-31.0); MEAN CORPUSCULAR HGB CONC 31.7 g/dL (33.0-37.0); MEAN PLATELET VOLUME 7.5 fL (7.2-11.7); MONO # 1.4 K/uL (0.0-0.8); MONO % 13.7 % (0.0-10.0); WHITE BLOOD COUNT 10.3 K/uL (4.8-10.8)
[2017-07-11 06:31] LABS: ALB/GLOB RATIO 0.8 (1.0-2.1); ALKALINE PHOSPHATASE 73 U/L (38-126); ALT/SGPT 34 U/L (21-72); AST/SGOT 46 U/L (17-59); BILIRUBIN,TOTAL 0.9 mg/dL (0.2-1.3); BLOOD UREA NITROGEN 25 mg/dL (9-20); CALCIUM 8.5 mg/dl (8.6-10.4); CARBON DIOXIDE 26 mmol/L (22-30); CHLORIDE 96 mmol/L (98-107); GFR AFRICAN-AMERICAN > 60; GLUCOSE,RANDOM 98 mg/dL (75-110); SODIUM 134 mmol/L (132-148); TOTAL PROTEIN 7.9 g/dL (6.3-8.3)
[2017-07-11 06:33] LABS: POTASSIUM 4.1 mmol/L (3.6-5.2)
--- NOTE | 2017-07-11 07:33 | CP.PCM.PN ---
<Angela Davis - Last Filed: 07/11/17 07:30> Subjective - Date & Time of Evaluation Date of Evaluation: 07/11/17 Time of Evaluation: 07:00 - Subjective Subjective: Medicine Note for Dr. Ocampo Patient was seen and examined at bedside. Patient requests if lasix administration can be changed to early times so he does not have to get up frequently throughout the night. Denied fever, chills, chest pain, headache, abdominal pain, n/v/d/c, or urinary symptoms. Objective - Vital Signs/Intake and Output Vital Signs (last 24 hours): Temp Pulse Resp BP Pulse Ox 97.6 F 68 20 171/107 H 98 07/10/17 15:12 07/10/17 23:55 07/10/17 23:55 07/10/17 23:55 07/10/17 23:55 Intake and Output: 07/11/17 07/11/17 06:59 18:59 Intake Total 450 Output Total 1000 Balance -550 - Medications Medications: Current Medications Albuterol (Ventolin Hfa 90 Mcg/Actuation (8 G)) 2 puff IH RBID [facility] Last Admin: 07/10/17 19:35 Dose: Not Given Alprazolam (Xanax) 1 mg PO Q8H PRN PRN Reason: Anxiety Last Admin: 07/10/17 20:04 Dose: 1 mg Amiodarone HCl (Cordarone) 200 mg PO DAILY [facility] Digoxin (Lanoxin) 0.125 mg PO DAILY [facility] Diltiazem HCl (Cardizem) 30 mg PO QID [facility] Last Admin: 07/10/17 22:40 Dose: 30 mg Enalapril Maleate (Vasotec) 10 mg PO DAILY [facility] Fluoxetine HCl (Prozac) 40 mg PO DAILY [facility] Furosemide (Lasix) 40 mg IVP Q8H [facility] Last Admin: 07/11/17 00:47 Dose: Not Given Gabapentin (Neurontin) 300 mg PO TID [facility] Last Admin: 07/10/17 17:10 Dose: 300 mg Hydrochlorothiazide (Microzide) 50 mg PO DAILY [facility] Montelukast Sodium (Singulair) 10 mg PO HS [facility] Last Admin: 07/10/17 22:40 Dose: 10 mg Oxycodone/Acetaminophen (Percocet 5/325 Mg Tab) 2 tab PO Q6H PRN PRN Reason: Pain, severe (8-10) Stop: 07/13/17 16:12 Last Admin: 07/11/17 05:26 Dose: 2 tab Rosuvastatin Calcium (Crestor) 5 mg PO HS [facility] Last Admin: 07/10/17 22:40 Dose: 5 mg Silver Sulfadiazine (Silvadene 1% 20 Gm) 0 ea TOP BID [facility] Last Admin: 07/10/17 22:40 Dose: 1 applic Spironolactone (Aldactone) 25 mg PO DAILY [facility] - Labs Labs: 07/11/17 06:11 07/11/17 06:11 - Constitutional Appears: No Acute Distress - Head Exam Head Exam: NORMAL INSPECTION, NORMOCEPHALIC - Eye Exam Eye Exam: EOMI, Normal appearance, PERRL - ENT Exam ENT Exam: Mucous Membranes Moist - Respiratory Exam Respiratory Exam: NORMAL BREATHING PATTERN. absent: Decreased Breath Sounds - Cardiovascular Exam Cardiovascular Exam: REGULAR RHYTHM, RRR, +S1, +S2 - GI/Abdominal Exam GI & Abdominal Exam: Distended, Soft, Normal Bowel Sounds - Extremities Exam Extremities Exam: Normal Inspection, Pedal Edema, Tenderness Additional comments: erythema and chronic lymphedematous changes. Numerous scabs and ulcerations, fresh discharge noted. - Neurological Exam Neurological Exam: Alert, Awake, Oriented x3 - Skin Skin Exam: Dry, Intact, Normal Color, Warm Assessment and Plan - Assessment and Plan (Free Text) Plan: Abdominal Pain * Likely from fluid retention due to CHF * CT Abdomen & Pelvis w/ IV contrast from 06/04/17: 1. The liver appears ill- defined and there is a question of subcapsular hematoma, versus motion artifact. Close clinical correlation is requested. 2. Spleen demonstrates a small fluid collection and a small amount of air adjacent and extending along the left inner portion of the abdominal wall. Unclear if this represents abscess or hematoma. Has there been recently the presence of a pigtail drainage catheter? Please correlate clinically. 3. There is retroperitoneal lymphadenopathy. 4. There is harika mesentery, nonspecific but can be seen in lymphoma. Please correlate clinically. 5. There is trace perihepatic ascites and there is trace fluid in both paracolic gutters. This is abnormal though nonspecific. 6. Additional incidental and/or chronic findings as described. * Lasix 40 mg IV Q8H * Percocet 5/325 mg 2 tab po Q6h PRN for severe pain Chronic Lymphedema/ Ulcerations * Apply Silvadene cream 1% TOP BID on wounds CHF * CXR: Cardiomegaly, venous congestion * BNP: 7890 * ECHO (02/2017): LV systolic function severely reduced. LV mildly dilated. Severe global hypokinesis of LV. Negative for endocarditis. * Lasix 40 mg IV Q8H * HCTZ 50mg PO daily * Aldactone 25mg PO daily * I's & O's, daily weight Anxiety and depression * Prozac 40mg po daily * Xanax 1mg po Q6H PRN anxiety Afib * EKG in ED: Afib , Rate 118 on admission * Cardizem 30mg po q6H * Digoxin 0.125 mg PO daily * aspirin 325 mg po daily COPD * O2 2LNC * Duonebs Q6H PRN * Singulair 10 mg PO HS HTN * Lasix 40 mg IV Q8h * Cardizem 30mg po q6h * restarted home meds: HCTZ 50mg PO daily, Aldactone 25mg PO daily * Enalapril 10 mg PO daily CAD * Crestor 5mg PO HS ARLENE * Pt denies using BIPAP at night * 2L O2 PRN Tobacco Use Disorder * Smoking Cessation * Nicoderm Patch Cocaine Use Disorder * UDS + for cocaine * HOLD BB Prophylactic Measures * GI PPX: Protonix 40mg PO daily * DVT PPX: SCDs, VTE c/i due to hx of splenic infarct DW Susan Vernon DO, PGY-1 <Roque Ocampo Jr. - Last Filed: 07/12/17 16:41> Objective - Vital Signs/Intake and Output Vital Signs (last 24 hours): Temp Pulse Resp BP Pulse Ox 98.2 F 95 H 20 135/96 H 95 07/12/17 08:55 07/12/17 08:55 07/12/17 08:55 07/12/17 15:17 07/12/17 08:55 Intake and Output: 07/12/17 07/12/17 06:59 18:59 Intake Total 750 720 Output Total 2600 Balance -1850 720 - Medications Medications: Current Medications Albuterol (Ventolin Hfa 90 Mcg/Actuation (8 G)) 2 puff IH RBID [facility] Last Admin: 07/12/17 07:56 Dose: Not Given Albuterol/Ipratropium (Duoneb 3 Mg/0.5 Mg (3 Ml) Ud) 3 ml INH RQ6 [facility] Last Admin: 07/12/17 13:27 Dose: 3 ml Alprazolam (Xanax) 1 mg PO Q8H PRN PRN Reason: Anxiety Last Admin: 07/12/17 04:51 Dose: 1 mg Amiodarone HCl (Cordarone) 200 mg PO DAILY [facility] Last Admin: 07/12/17 09:19 Dose: 200 mg Digoxin (Lanoxin) 0.125 mg PO 1800 [facility] Last Admin: 07/11/17 17:40 Dose: 0.125 mg Diltiazem HCl (Cardizem) 30 mg PO QID [facility] Last Admin: 07/12/17 15:16 Dose: 30 mg Diphenhydramine HCl (Benadryl) 50 mg IVP Q12H [facility] Enalapril Maleate (Vasotec) 10 mg PO DAILY [facility] Last Admin: 07/12/17 09:19 Dose: 10 mg Fluoxetine HCl (Prozac) 40 mg PO DAILY [facility] Last Admin: 07/12/17 09:19 Dose: 40 mg Furosemide (Lasix) 40 mg IVP Q12H [facility] Gabapentin (Neurontin) 300 mg PO TID [facility] Last Admin: 07/12/17 15:17 Dose: 300 mg Hydrochlorothiazide (Microzide) 50 mg PO DAILY [facility] Last Admin: 07/12/17 09:19 Dose: 50 mg Montelukast Sodium (Singulair) 10 mg PO HS [facility] Last Admin: 07/11/17 22:29 Dose: 10 mg Nicotine (Nicoderm Cq) 1 patch TD DAILY [facility] Last Admin: 07/12/17 09:19 Dose: 1 patch Oxycodone/Acetaminophen (Percocet 5/325 Mg Tab) 2 tab PO Q6H PRN PRN Reason: Pain, severe (8-10) Stop: 07/13/17 16:12 Last Admin: 07/12/17 15:12 Dose: 2 tab Rosuvastatin Calcium (Crestor) 5 mg PO HS [facility] Last Admin: 07/11/17 22:29 Dose: 5 mg Silver Sulfadiazine (Silvadene 1% 20 Gm) 0 ea TOP BID [facility] Last Admin: 07/12/17 09:18 Dose: 1 applic Spironolactone (Aldactone) 25 mg PO DAILY [facility] Last Admin: 07/12/17 09:19 Dose: 25 mg - Labs Labs: 07/12/17 08:20 07/12/17 08:20 Attending/Attestation - Attestation I have personally seen and examined this patient.: Yes I have fully participated in the care of the patient.: Yes I have reviewed all pertinent clinical information, including history, physical exam and plan: Yes Notes (Text): 07/12/17 16:40 Agree with resident note and findings
[2017-07-11] MEDS: Albuterol HFA 90 mcg/actuation (8 g) IH SCH ×2 (07:57→22:45)
[2017-07-11] MEDS: Silver Sulfadiazine 1% Cream (20 gm) TOP SCH ×2 (09:56→17:41)
[2017-07-11] MEDS ORDERED: Aspirin 325 mg EC Tablets PO SCH (10:00)
[2017-07-11] MEDS ORDERED: Digoxin 125 mcg (0.125 mg) Tab PO SCH (10:00)
[2017-07-11] MEDS ORDERED: DiphenhydrAMINE 50 mg/ml Inj IVP STA (14:40)
[2017-07-11 16:43] VITALS: RESP 20
[2017-07-11] MEDS: Digoxin 125 mcg (0.125 mg) Tab PO SCH (17:40)
--- NOTE | 2017-07-11 21:31 | CARD ---
APPROVED REPORT EKG Measurement Heart [id number] <Conclusion> Atrial fibrillation with rapid ventricular response Pulmonary disease pattern Incomplete right bundle branch block Left anterior fascicular block Inferior infarct, age undetermined ST & T wave abnormality, consider lateral ischemia Abnormal ECG
[2017-07-12] MEDS: Oxycodone/Acetaminophen 5/325 mg Tab PO PRN ×4 (00:30→22:11)
[2017-07-12] MEDS: Albuterol HFA 90 mcg/actuation (8 g) IH SCH ×2 (07:56→20:00)
[2017-07-12 08:42] LABS: BASO # 0.1 K/uL (0.0-0.2); BASO % 0.9 % (0.0-2.0); EOS # 0.4 K/uL (0.0-0.7); EOS % 3.4 % (0.0-4.0); HEMATOCRIT 42.7 % (35.0-51.0); LYMPH # 2.1 K/uL (1.0-4.3); LYMPH % 18.4 % (20.0-40.0); MEAN CELL VOLUME 77.4 fL (80.0-94.0); MEAN CORPUSCULAR HEMOGLOBIN 23.7 pg (27.0-31.0); MEAN CORPUSCULAR HGB CONC 30.6 g/dL (33.0-37.0); MEAN PLATELET VOLUME 7.8 fL (7.2-11.7); MONO # 1.5 K/uL (0.0-0.8); MONO % 13.4 % (0.0-10.0); NRBC % 0.2 % (0.0-2.0); WHITE BLOOD COUNT 11.5 K/uL (4.8-10.8)
[2017-07-12 08:53] LABS: CHLORIDE 96 mmol/L (98-107); POTASSIUM 4.1 mmol/L (3.6-5.2); SODIUM 139 mmol/L (132-148)
[2017-07-12 08:55] LABS: BILIRUBIN,TOTAL 0.9 mg/dL (0.2-1.3); GFR AFRICAN-AMERICAN > 60
[2017-07-12 08:56] LABS: ALB/GLOB RATIO 0.7 (1.0-2.1); ALKALINE PHOSPHATASE 102 U/L (38-126); ALT/SGPT 29 U/L (21-72); AST/SGOT 38 U/L (17-59); BLOOD UREA NITROGEN 24 mg/dL (9-20); CALCIUM 9.1 mg/dl (8.6-10.4); CARBON DIOXIDE 26 mmol/L (22-30); GLUCOSE,RANDOM 69 mg/dL (75-110); TOTAL PROTEIN 8.6 g/dL (6.3-8.3)
[2017-07-12] MEDS ORDERED: DiphenhydrAMINE 50 mg/ml Inj IVP STA (09:16)
[2017-07-12] MEDS: Silver Sulfadiazine 1% Cream (20 gm) TOP SCH ×2 (09:18→18:01)
--- NOTE | 2017-07-12 09:40 | CP.PCM.DIS ---
Provider - Provider Date of Admission: 07/10/17 11:04 Attending physician: Roque Ocampo Jr, MD Time Spent in preparation of Discharge (in minutes): 45 Hospital Course - Lab Results Lab Results: Most Recent Lab Values WBC 11.5 K/uL (4.8-10.8) H 07/12/17 08:20 RBC 5.51 Mil/uL (4.40-5.90) 07/12/17 08:20 Hgb 13.0 g/dL (12.0-18.0) 07/12/17 08:20 Hct 42.7 % (35.0-51.0) 07/12/17 08:20 MCV 77.4 fL (80.0-94.0) L 07/12/17 08:20 MCH 23.7 pg (27.0-31.0) L 07/12/17 08:20 MCHC 30.6 g/dL (33.0-37.0) L 07/12/17 08:20 RDW 19.0 % (11.5-14.5) H 07/12/17 08:20 Plt Count 274 K/uL (130-400) 07/12/17 08:20 MPV 7.8 fL (7.2-11.7) 07/12/17 08:20 Neut % (Auto) 63.9 % (50.0-75.0) 07/12/17 08:20 Lymph % (Auto) 18.4 % (20.0-40.0) L 07/12/17 08:20 [place] % (Auto) 13.4 % (0.0-10.0) H 07/12/17 08:20 Eos % (Auto) 3.4 % (0.0-4.0) 07/12/17 08:20 Baso % (Auto) 0.9 % (0.0-2.0) 07/12/17 08:20 Neut # 7.3 K/uL (1.8-7.0) H 07/12/17 08:20 Lymph # 2.1 K/uL (1.0-4.3) 07/12/17 08:20 [place] # 1.5 K/uL (0.0-0.8) H 07/12/17 08:20 Eos # 0.4 K/uL (0.0-0.7) 07/12/17 08:20 Baso # 0.1 K/uL (0.0-0.2) 07/12/17 08:20 Sodium 139 mmol/L (132-148) 07/12/17 08:20 Potassium 4.1 mmol/L (3.6-5.2) 07/12/17 08:20 Chloride 96 mmol/L (98-107) L 07/12/17 08:20 Carbon Dioxide 26 mmol/L (22-30) 07/12/17 08:20 Anion Gap 21 (10-20) H 07/12/17 08:20 BUN 24 mg/dL (9-20) H 07/12/17 08:20 Creatinine 0.8 MG/DL (0.8-1.5) 07/12/17 08:20 Est GFR ( Amer) > 60 07/12/17 08:20 Est GFR (Non-Af Amer) > 60 07/12/17 08:20 POC Glucose (mg/dL) 83 mg/dL (65-110) 07/11/17 11:38 Random Glucose 69 mg/dL (75-110) L 07/12/17 08:20 Calcium 9.1 mg/dl (8.6-10.4) 07/12/17 08:20 Total Bilirubin 0.9 mg/dL (0.2-1.3) 07/12/17 08:20 AST 38 U/L (17-59) 07/12/17 08:20 ALT 29 U/L (21-72) 07/12/17 08:20 Alkaline Phosphatase 102 U/L (38-126) 07/12/17 08:20 Troponin I 0.0980 ng/mL (0.00-0.120) 07/10/17 10:09 NT-Pro-B Natriuret Pep 7890 pg/mL (0-450) H 07/10/17 10:09 Total Protein 8.6 g/dL (6.3-8.3) H 07/12/17 08:20 Albumin 3.6 g/dL (3.5-5.0) 07/12/17 08:20 Globulin 4.9 gm/dL (2.2-3.9) H 07/12/17 08:20 Albumin/Globulin Ratio 0.7 (1.0-2.1) L 07/12/17 08:20 Urine Color Yellow (YELLOW) 07/10/17 10:54 Urine Clarity Clear (Clear) 07/10/17 10:54 Urine pH 6.0 (5.0-8.0) 07/10/17 10:54 Ur Specific [place] 1.009 (1.003-1.030) 07/10/17 10:54 Urine Protein Negative mg/dL (NEGATIVE) 07/10/17 10:54 Urine Glucose (UA) Normal mg/dL (Normal) 07/10/17 10:54 Urine Ketones Negative mg/dL (NEGATIVE) 07/10/17 10:54 Urine Blood Negative (NEGATIVE) 07/10/17 10:54 Urine Nitrate Negative (NEGATIVE) 07/10/17 10:54 Urine Bilirubin Negative (NEGATIVE) 07/10/17 10:54 Urine Urobilinogen Normal mg/dL (0.2-1.0) 07/10/17 10:54 Ur Leukocyte Esterase Neg Nancie/uL (Negative) 07/10/17 10:54 Urine WBC (Auto) < 1 /hpf (0-5) 07/10/17 10:54 Urine Opiates Screen Negative (NEGATIVE) 07/10/17 10:54 Urine Methadone Screen Negative (NEGATIVE) 07/10/17 10:54 Ur Barbiturates Screen Negative (NEGATIVE) 07/10/17 10:54 Ur Phencyclidine Scrn Negative (NEGATIVE) 07/10/17 10:54 Ur Amphetamines Screen Negative (NEGATIVE) 07/10/17 10:54 U Benzodiazepines Scrn Negative (NEGATIVE) 07/10/17 10:54 U Oth Cocaine Metabols Positive (NEGATIVE) 07/10/17 10:54 U Cannabinoids Screen Negative (NEGATIVE) 07/10/17 10:54 - Hospital Course Hospital Course: Upon Admission: cc: "distended stomach" HPI: Patient is a 46 year old male presenting to the hospital complaining of retaining fluid in his abdomen. He states that for the past 2 days, he feels like his stomach has been getting increasingly distended, and as a result, uncomfortable/painful. He states that he is compliant with all his medications. He says this has happened previously. He denies any chest pain, dyspnea, nausea , vomiting, changes in bowel movement. Patient also reports that for the past week, he has been developing scabs along both legs which drain clear fluid. He says he has been trying to clean the areas with hydrogen peroxide, but says they end up itching afterwards. He says they aren't painful. He says his legs are chronically edematous and erythematous. He denies fevers or chills. PMH: HTN, CAD, CHF, Afib, COPD, ARLENE, Herniated discs L-spine, Bipolar/Depression , Asthma, hx of splenic infarct Meds: Diltiazem, ASA, Carvedilol, digoxin, enalapril, HCTZ, k-dur, Lasix, Albuterol, Prozac, Simvastatin, Montelukast, Tizanidine, Xanax, Gabapentin. Allergy: Apixaban, clopidogrel, enoxaparin, Morphine PSH: Appendectomy (2008), Coronary stents x4 ([phone]) Hosp: multiple admissions recently for SOB, splenic hematoma and bacteremia FH: Denies Social: Denies tobacco use- wears a nicotine patch. Social alcohol use; Admits to Cocaine use Throughout Hospital Patient was admitted for CHF exacerbation. Patient has hx of Atrial fibrillation and CHF. EKG on admission showed Afib , Rate 118. Anticoagulation was contraindicated due to patient's hx of splenic infarct. Echo (02/2017) showed LV systolic function severely reduced. LV mildly dilated. Severe global hypokinesis of LV. Negative for endocarditis. Patient was resumed on home medications and received lasix every 8 hours. Patient feeling better and will continue to follow up with Dr. Ocampo. Patient cleared for discharge as per Dr. Ocampo. This is a brief summary of the patient's hospital course. Please refer to patient's EMR for full record. Discharge Exam - Head Exam Head Exam: NORMAL INSPECTION, NORMOCEPHALIC - Eye Exam Eye Exam: EOMI, Normal appearance, PERRL Pupil Exam: NORMAL ACCOMODATION - Respiratory Exam Respiratory Exam: Clear to PA & Lateral, NORMAL BREATHING PATTERN. absent: Decreased Breath Sounds - Cardiovascular Exam Cardiovascular Exam: REGULAR RHYTHM, RRR, +S1, +S2 - GI/Abdominal Exam GI & Abdominal Exam: Normal Bowel Sounds, Soft. absent: Distended, Tenderness - Extremities Exam Extremities exam: normal inspection, pedal pulses present - Neurological Exam Neurological exam: Alert, Oriented x3 - Psychiatric Exam Psychiatric exam: Normal Affect, Normal Mood - Skin Skin Exam: Dry, Intact, Normal Color, Warm Discharge Plan - Follow Up Plan Condition: STABLE Disposition: HOME/ ROUTINE Instructions: Dyspnea (GEN) Additional Instructions: Patient is to continue his home medications. Patient is to follow up with Dr. Ocampo in 1 week. Patient is to stick to a low salt diet, fluid restriction <1200mL. Please return to the ED if your symptoms worsen. Referrals: Roque Ocampo Jr., MD [Medical Doctor] -
--- NOTE | 2017-07-12 11:26 | PCM.HF ---
Heart Failure Core Measure - Heart Failure Ejection Fraction: Less Than 40 % Left Ventricular Function to be assessed after discharge: No SHONDA Inhibitor Prescribed: Yes Contraindication/Reason for not providing: THIS IS HELD DUE TO PATIENT'S COCAINE USE Angiotensin II Receptor Yonis Prescribed: No Contraindication/Reason for not providing: ON ACEi AnticoagulationTherapy for Atrial Fibrillation/Atrialflutter: No Contraindication/Reason for not providing: no hx afib Aldosterone Antagonist Prescribed: Yes Hydralazine Nitrate Prescribed: No Contraindication/Reason for not providing: on amiodarone Implantable Cardioverter Defibrillator Therapy: No Contraindication/Reason for not providing: Not required Cardiac Resynchronization Therapy Prescribed: No Contraindication/Reason for not providing: Not required - Follow up Will be discharged to: Home Follow Up Date (must be within 7 days from discharge): 07/20/17 Follow Up Time: 09:00
[2017-07-12] MEDS: Albuterol-Ipratrop 3 mg / 0.5 (3 ml) UD INH SCH ×2 (13:27→19:59)
[2017-07-12] MEDS: Digoxin 125 mcg (0.125 mg) Tab PO SCH (18:00)
[2017-07-12 18:01] VITALS: PULSE 79
[2017-07-12] MEDS: DiphenhydrAMINE 50 mg/ml Inj IVP SCH (22:11)
[2017-07-13 01:02] VITALS: O2SAT 97
[2017-07-13] MEDS: Albuterol-Ipratrop 3 mg / 0.5 (3 ml) UD INH SCH ×2 (01:35→09:12)
[2017-07-13] MEDS: Oxycodone/Acetaminophen 5/325 mg Tab PO PRN ×2 (04:08→10:21)
[2017-07-13 04:28] VITALS: PULSE 68; TEMP 97.6
[2017-07-13 07:30] LABS: BASO # 0.1 K/uL (0.0-0.2); BASO % 0.6 % (0.0-2.0); EOS # 0.3 K/uL (0.0-0.7); EOS % 3.1 % (0.0-4.0); HEMATOCRIT 42.9 % (35.0-51.0); LYMPH # 2.1 K/uL (1.0-4.3); LYMPH % 20.7 % (20.0-40.0); MEAN CELL VOLUME 76.5 fL (80.0-94.0); MEAN CORPUSCULAR HEMOGLOBIN 23.9 pg (27.0-31.0); MEAN CORPUSCULAR HGB CONC 31.3 g/dL (33.0-37.0); MEAN PLATELET VOLUME 7.7 fL (7.2-11.7); MONO # 1.3 K/uL (0.0-0.8); MONO % 12.8 % (0.0-10.0); NRBC % 0.1 % (0.0-2.0); RED CELL DISTRIBUTION WIDTH 18.9 % (11.5-14.5); WHITE BLOOD COUNT 10.2 K/uL (4.8-10.8)
[2017-07-13 08:09] LABS: CHLORIDE 97 mmol/L (98-107); POTASSIUM 4.3 mmol/L (3.6-5.2); SODIUM 132 mmol/L (132-148)
[2017-07-13 08:11] LABS: GFR AFRICAN-AMERICAN > 60
[2017-07-13 08:12] LABS: ALB/GLOB RATIO 0.8 (1.0-2.1); ALKALINE PHOSPHATASE 90 U/L (38-126); ALT/SGPT 25 U/L (21-72); AST/SGOT 34 U/L (17-59); BILIRUBIN,TOTAL 0.9 mg/dL (0.2-1.3); BLOOD UREA NITROGEN 19 mg/dL (9-20); CALCIUM 8.3 mg/dl (8.6-10.4); CARBON DIOXIDE 23 mmol/L (22-30); GLUCOSE,RANDOM 94 mg/dL (75-110)
[2017-07-13] MEDS: DiphenhydrAMINE 50 mg/ml Inj IVP SCH (09:06)
[2017-07-13] MEDS: Albuterol HFA 90 mcg/actuation (8 g) IH SCH (09:13)
[2017-07-13 09:18] VITALS: BP 124/72
[2017-07-13] MEDS: Silver Sulfadiazine 1% Cream (20 gm) TOP SCH (10:32)
--- NOTE | 2017-07-13 15:15 | CP.PCM.PN ---
<Angela Davis - Last Filed: 07/13/17 15:13> Subjective - Date & Time of Evaluation Date of Evaluation: 07/13/17 Time of Evaluation: 07:00 - Subjective Subjective: Medicine Note For Dr. Ocampo Patient clear for discharge last night however, patient requested if he can leave first thing this morning. Patient seen and instructed to follow up with Dr. Ocampo within 1 week. Objective - Vital Signs/Intake and Output Vital Signs (last 24 hours): Temp Pulse Resp BP Pulse Ox 97.6 F 68 20 124/72 97 07/13/17 04:10 07/13/17 04:10 07/13/17 04:10 07/13/17 09:05 07/12/17 23:50 Intake and Output: 07/13/17 07/13/17 06:59 18:59 Intake Total 760 650 Output Total 1800 Balance -1040 650 - Labs Labs: 07/13/17 07:18 07/13/17 07:18 <Roque Ocampo Jr. - Last Filed: 07/21/17 10:36> Objective - Vital Signs/Intake and Output Vital Signs (last 24 hours): Temp Pulse Resp BP Pulse Ox 97.6 F 68 20 124/72 97 07/13/17 04:10 07/13/17 04:10 07/13/17 04:10 07/13/17 09:05 07/12/17 23:50 - Labs Labs: 07/13/17 07:18 07/13/17 07:18 Attending/Attestation - Attestation I have personally seen and examined this patient.: Yes I have fully participated in the care of the patient.: Yes I have reviewed all pertinent clinical information, including history, physical exam and plan: Yes Notes (Text): 07/21/17 10:36 Agree with resident note and findings
== END 2017-07-13 10:34 | disposition home or self-care (01) | DRG 292 ==
LOC: C.ER 07:57 → C.9E 11:04 → C.6T 12:34
PROVIDERS: ADMIT Internal Medicine; ATTEND Internal Medicine
DX: I11.0 Hypertensive heart disease with heart failure (principal); L97.909 Non-pressure chronic ulcer of unspecified part of unspecified lower leg with unspecified severity; R18.8 Other ascites; J43.9 Emphysema, unspecified; I50.9 Heart failure, unspecified; I48.91 Unspecified atrial fibrillation; I25.10 Atherosclerotic heart disease of native coronary artery without angina pectoris; F31.9 Bipolar disorder, unspecified; E78.00 Pure hypercholesterolemia, unspecified; G89.29 Other chronic pain; M54.5 Low back pain; F17.210 Nicotine dependence, cigarettes, uncomplicated; G47.33 Obstructive sleep apnea (adult) (pediatric); Z95.5 Presence of coronary angioplasty implant and graft; R59.1 Generalized enlarged lymph nodes; F41.8 Other specified anxiety disorders; F14.10 Cocaine abuse, uncomplicated

== ENCOUNTER 2017-07-22 02:56 | Inpatient (IN) | payer MEDICARE, MEDICAID ==
[2017-07-22 02:56] VITALS: BMI 38.7
[2017-07-22] MEDS ORDERED: Sodium Chloride 0.9% 1,000 ML IV ONE ×2 (03:15→06:17)
--- NOTE | 2017-07-22 03:15 | C.PDOC ---
History Of Present Illness 46 y/o male presents to the ER c/o worsening fluid in the abdomen for the last couple of days. Reports the fluid is getting bigger and is uncomfortable. Patient also had an episode of vomiting and SOB [employer]. EMS notes the patient was hypotensive where they gave him a bolus of fluids and is now back to baseline. Patient denies fever, chills, chest pain, palpitations, diaphoresis, light headedness, or any other complaints. Time Seen by Provider: 07/22/17 03:14 Chief Complaint (Nursing): Abdominal Pain History Per: Patient History/Exam Limitations: no limitations Current Symptoms Are (Timing): Still Present Severity: Mild Location Of Pain/Discomfort: Diffuse Radiation Of Pain To:: None Associated Symptoms: Vomiting, Other (SOB). denies: Fever, Chills Exacerbating Factors: None Alleviating Factors: None Recent travel outside of the [place]: No Additional History Per: Patient Past Medical History Reviewed: Historical Data, Nursing Documentation, Vital Signs Vital Signs: Last Vital Signs Temp 97.8 F 07/22/17 03:16 Pulse 75 07/22/17 04:00 Resp 20 07/22/17 04:00 BP 116/60 07/22/17 04:00 Pulse Ox 95 07/22/17 04:48 - Medical History PMH: Anxiety, Arthritis, Asthma, Atrial Fibrillation, Back Problems, Bipolar Disorder, CAD, Cardia Arrhythmia, CHF, COPD, Depression, Emphysema, HTN, Hypercholesterolemia, Peripheral Edema, Sleep Apnea, Chronic Pain (Lower Back Pain) Denies: Chronic Kidney Disease Surgical History: Appendectomy (2008), Coronary Stent (2008 - 2012 4 stents) - [facility] Procedures CORONAR ARTERIOGR-2 CATH (07/06/13) DRAINAGE OF SPLEEN, PERCUTANEOUS APPROACH (03/05/17) INJECT/INFUSE NEC (02/22/14) LEFT HEART CARDIAC CATH (07/06/13) LT HEART ANGIOCARDIOGRAM (07/06/13) NEBULIZER THERAPY (03/28/14) NON-INVASIVE MECHANICAL VENTILATION (03/26/15) TRANSFUSE NONAUT FROZEN PLASMA IN PERIPH VEIN, PERC (02/21/17) Family History: States: CAD, Diabetes - Social History Hx Tobacco Use: Yes Hx Alcohol Use: Yes Hx Substance Use: Yes (coccaine) - Immunization History Hx Tetanus Toxoid Vaccination: Yes Hx Influenza Vaccination: Yes Hx Pneumococcal Vaccination: Yes (08/2014) Review Of Systems Constitutional: Negative for: Fever, Chills, Sweats Eyes: Negative for: Redness ENT: Negative for: Throat Pain Cardiovascular: Negative for: Chest Pain, Palpitations, Light Headedness Respiratory: Positive for: Shortness of Breath Gastrointestinal: Positive for: Vomiting, Abdominal Pain (Discomfort, fluid in the abdomen) Genitourinary: Negative for: Dysuria Musculoskeletal: Negative for: Back Pain Skin: Negative for: Jaundice Neurological: Negative for: Weakness Psych: Negative for: Anxiety Physical Exam - Physical Exam Appears: Non-toxic, No Acute Distress Skin: Warm, Dry Head: Normacephalic Eye(s): bilateral: Normal Inspection Oral Mucosa: Moist Neck: Supple Chest: Symmetrical Cardiovascular: Rhythm Irregular (AFIB) Respiratory: Rales, Rhonchi (Scattered rhonchi at the bases), No Wheezing, Other (Speaking in complete sentences) Gastrointestinal/Abdominal: Bowel Sounds (Decreased bowel sounds), Soft, Tenderness (mild), Distention, Ascites, Other ((+) Fluid wave) Back: No CVA Tenderness Extremity: Pedal Edema (Bilateral pedal edema), Capillary Refill (<2secs), Other (Tory vascular stasis skin changes) Extremity: Bilateral: Atraumatic Pulses: Left Dorsalis Pedis: Normal, Right Dorsalis Pedis: Normal Neurological/Psych: Oriented x3, Normal Speech, Normal Cognition Gait: Steady ED Course And Treatment - Laboratory Results Result Diagrams: 07/22/17 03:44 07/22/17 03:44 ECG: Interpreted By Me, Viewed By Me ECG Rhythm: Atrial Fibrillation (71), Nonspecific Changes (lahb, unchanged from) Rate From EC O2 Sat by Pulse Oximetry: 95 (RA) Pulse Ox Interpretation: Normal - Radiology CXR: Interpreted by Me, Viewed By Me CXR Interpretation: Yes: Cardiomegaly, Other (mild vasc congestion). No: Infiltrates, Fracture Disposition Discussed With : Roque Ocampo Jr. Comment: accepted the pt on his service and took over the care at 5AM Doctor Will See Patient In The: ED Counseled Patient/Family Regarding: Studies Performed, Diagnosis - Disposition Disposition: HOSPITALIZED Disposition Time: 03:14 Condition: FAIR Forms: [facility] (Swedish) - POA Present On Arrival: None - Clinical Impression Clinical Impression: Abdominal pain, Cocaine use, CHF exacerbation, Shortness of breath - Scribe Statement The provider has reviewed the documentation as recorded by the Lashawnibe Beatrice alas All medical record entries made by the Lashawnibe were at my direction and personally dictated by me. I have reviewed the chart and agree that the record accurately reflects my personal performance of the history, physical exam, medical decision making, and the department course for this patient. I have also personally directed, reviewed, and agree with the discharge instructions and disposition. Decision To Admit - Pt Status Changed To: Hospital Disposition Of: Inpatient - Admit Certification Admit to Inpatient:: After my assessment, the patient will require hospitalization for at least two midnights. This is because of the severity of symptoms shown, intensity of services needed, and/or the medical risk in this patient being treated as an outpatient. - InPatient: Physician Admission Certification:: After my assessment, the patient will require hospitalization for at least two midnights. This is because of the severity of symptoms shown, intensity of services needed, and/or the medical risk in this patient being treated as an outpatient. - . Bed Request Type: Telemetry Admitting Physician: Roque Ocampo Jr. Patient Diagnosis: Abdominal pain, Cocaine use, CHF exacerbation, Shortness of breath
[2017-07-22] MEDS ORDERED: Sodium Chloride 0.9% 1,000 ML ONE (03:40)
[2017-07-22 03:48] LABS: BASO # 0.1 K/uL (0.0-0.2); BASO % 1.2 % (0.0-2.0); EOS # 0.2 K/uL (0.0-0.7); HEMATOCRIT 42.5 % (35.0-51.0); LYMPH # 2.2 K/uL (1.0-4.3); LYMPH % 19.7 % (20.0-40.0); MEAN CELL VOLUME 76.5 fL (80.0-94.0); MEAN CORPUSCULAR HEMOGLOBIN 23.5 pg (27.0-31.0); MEAN CORPUSCULAR HGB CONC 30.7 g/dL (33.0-37.0); MEAN PLATELET VOLUME 7.8 fL (7.2-11.7); MONO # 1.1 K/uL (0.0-0.8); NRBC % 0.1 % (0.0-2.0); RED CELL DISTRIBUTION WIDTH 18.6 % (11.5-14.5); WHITE BLOOD COUNT 11.3 K/uL (4.8-10.8)
[2017-07-22 03:53] LABS: CHLORIDE 96 mmol/L (98-107); INR 1.3; POTASSIUM 5.6 mmol/L (3.6-5.2); SODIUM 137 mmol/L (132-148)
[2017-07-22 03:55] LABS: ALB/GLOB RATIO 0.8 (1.0-2.1); AST/SGOT 42 U/L (17-59); BILIRUBIN,TOTAL 0.7 mg/dL (0.2-1.3); CARBON DIOXIDE 30 mmol/L (22-30); GFR AFRICAN-AMERICAN > 60; TOTAL PROTEIN 8.1 g/dL (6.3-8.3)
[2017-07-22 03:56] LABS: ALKALINE PHOSPHATASE 73 U/L (38-126); ALT/SGPT 26 U/L (21-72); BLOOD UREA NITROGEN 35 mg/dL (9-20); CALCIUM 9.1 mg/dl (8.6-10.4); GLUCOSE,RANDOM 105 mg/dL (75-110)
[2017-07-22 04:46] LABS: RBC URINE < 1 /hpf (0-3); URINE BILIRUBIN NEGATIVE (NEGATIVE); URINE BLOOD NEGATIVE (NEGATIVE); URINE COLOR Yellow (YELLOW); URINE GLUCOSE (UA) NORMAL (Normal); URINE KETONE NEGATIVE (NEGATIVE); URINE LEUKOCYTE ESTERASE NEG Leu/uL (Negative); URINE PROTEIN 1+ mg/dL (NEGATIVE); URINE UROBILINOGEN NORMAL mg/dL (0.2-1.0); WBC URINE 2 /hpf (0-5)
--- NOTE | 2017-07-22 05:52 | CP.PCM.HP ---
History of Present Illness - History of Present Illness History of Present Illness: cc: "my stomach is getting bigger and it's hard for me to breathe" Patient is a 46 year old male with PMHx HTN, CAD, CHF, Afib, COPD who presents to the ED with complaint of stomach distention, shortness of breath, nausea, and vomiting. Patient states his symptoms started yesterday evening around 6:30 -7PM. Patient states he went to a buffet with his medical day care and after he returned home in the evening he felt a stabbing pain in his abdomen. Patient reports vomiting twice between 6:30-7PM but states the vomit was white and foamy, denies food contents, blood, bilious fluid. Patient states that he also felt his anxiety heightening at that time and he took his medication and tried to relax in his recliner. Patient states he felt better but then the pain came back and felt feverish, chills, and short of breath. Patient states he then called EMS. Patient also admits to increased leg swelling with "syrupy " exudates from his legs which is worse than his normal edema and erythema. Patient denies chest pain or palpitations. Patient currently denying all symptoms and states improvement in shortness of breath after receiving IV lasix in the ED. PMH: HTN, CAD, CHF, Afib, COPD, ARLENE, Herniated discs L-spine, Bipolar/Depression , Asthma, hx of splenic infarct Meds: Diltiazem, ASA, Carvedilol, digoxin, enalapril, HCTZ, Lasix, Albuterol, Prozac, Simvastatin, Montelukast, Xanax, Gabapentin Allergy: Apixaban, clopidogrel, enoxaparin, Morphine PSH: Appendectomy (2008), Coronary stents x4 ([id number]) Hosp: multiple admissions recently for SOB, splenic hematoma and bacteremia FH: Denies Social: former tobacco use (quit 5 months ago)- wears a nicotine patch. Social alcohol use; Admits to Cocaine use- last use 3 weeks ago Present on Admission - Present on Admission Any Indicators Present on Admission: No Review of Systems - Constitutional Constitutional: Chills, Fever - EENT Eyes: absent: Change in Vision Ears: Dizziness - Cardiovascular Cardiovascular: Dyspnea, Leg Edema, Orthopnea (uses 4 pillows to sleep). absent : Chest Pain, Palpitations - Respiratory Respiratory: Cough, Dyspnea - Gastrointestinal Gastrointestinal: Nausea, Vomiting. absent: Hematemesis, Hematochezia - Genitourinary Genitourinary: absent: Difficulty Urinating, Dysuria - Integumentary Integumentary: Erythema, Swelling, Wounds - Neurological Neurological: Dizziness - Psychiatric Psychiatric: Anxiety Past Patient History - Infectious Disease Hx of Infectious Diseases: None - Tetanus Immunizations Tetanus Immunization: Up to Date - Past Medical History & Family History Past Medical History?: Yes - Past Social History Smoking Status: Former Smoker - CARDIAC Hx Atrial Fibrillation: Yes Hx Cardia Arrhythmia: Yes Hx Congestive Heart Failure: Yes Hx Hypercholesterolemia: Yes Hx Hypertension: Yes Hx Peripheral Edema: Yes - PULMONARY Hx Asthma: Yes Hx Chronic Obstructive Pulmonary Disease (COPD): Yes Hx Emphysema: Yes Hx Sleep Apnea: Yes - NEUROLOGICAL Hx Neurological Disorder: No - HEENT Hx HEENT Problems: No - RENAL Hx Chronic Kidney Disease: No - ENDOCRINE/METABOLIC Hx Endocrine Disorders: No - HEMATOLOGICAL/ONCOLOGICAL Hx Blood Disorders: Yes Other/Comment: MRSA Hx - INTEGUMENTARY Hx Dermatological Problems: Yes - MUSCULOSKELETAL/RHEUMATOLOGICAL Hx Arthritis: Yes - GASTROINTESTINAL Hx Gastrointestinal Disorders: Yes Other/Comment: Splenic Hematoma - GENITOURINARY/GYNECOLOGICAL Hx Genitourinary Disorders: No - PSYCHIATRIC Hx Anxiety: Yes Hx Bipolar Disorder: Yes Hx Depression: Yes Hx Substance Use: Yes (coccaine) - SURGICAL HISTORY Hx Appendectomy: Yes (2008) Hx Coronary Stent: Yes (2008 - 2012 4 stents) - ANESTHESIA Hx Anesthesia: Yes Hx Anesthesia Reactions: No Hx Malignant Hyperthermia: No Meds Allergies/Adverse Reactions: Allergies Allergy/AdvReac Type Severity Reaction Status Date / Time apixaban [From Eliquis] Allergy RASH Verified 07/22/17 03:14 clopidogrel bisulfate Allergy RASH Verified 07/22/17 03:14 [From Plavix] enoxaparin sodium Allergy RASH Verified 07/22/17 03:14 [From Lovenox] morphine Allergy RASH Verified 07/22/17 03:14 Physical Exam - Constitutional Appears: Non-toxic, No Acute Distress - Head Exam Head Exam: ATRAUMATIC, NORMOCEPHALIC - Eye Exam Eye Exam: EOMI - ENT Exam ENT Exam: Mucous Membranes Moist - Respiratory Exam Respiratory Exam: Clear to Auscultation Bilateral (decreased inspiratory effort) , NORMAL BREATHING PATTERN. absent: Rales, Rhonchi, Wheezes - Cardiovascular Exam Cardiovascular Exam: Irregular Rhythm, +S1, +S2. absent: JVD - GI/Abdominal Exam GI & Abdominal Exam: Distended, Normal Bowel Sounds, Tenderness (diffuse). absent: Firm, Rigid - Extremities Exam Additional comments: bilateral lower extremity erythema non pitting edema bilaterally crusted lesions to posterior calves - Neurological Exam Neurological exam: Alert - Psychiatric Exam Psychiatric exam: Anxious - Skin Skin Exam: Warm Additional comments: multiple hyperpigmented skin lesions on body Results - Vital Signs Recent Vital Signs: Last Vital Signs Temp 97.8 F 07/22/17 03:16 Pulse 75 07/22/17 04:00 Resp 20 07/22/17 04:00 BP 116/60 07/22/17 04:00 Pulse Ox 95 07/22/17 05:07 - Labs Result Diagrams: 07/22/17 03:44 07/22/17 03:44 Labs: Laboratory Results - last 24 hr 07/22/17 07/22/17 07/22/17 03:44 03:44 03:44 WBC 11.3 H RBC 5.56 Hgb 13.1 Hct 42.5 MCV 76.5 L MCH 23.5 L MCHC 30.7 L RDW 18.6 H Plt Count 276 MPV 7.8 Neut % (Auto) 67.1 Lymph % (Auto) 19.7 L Sherman % (Auto) 10.0 Eos % (Auto) 2.0 Baso % (Auto) 1.2 Neut # 7.6 H Lymph # 2.2 Sherman # 1.1 H Eos # 0.2 Baso # 0.1 PT 14.2 H INR 1.3 APTT 36 H Sodium 137 Potassium 5.6 H Chloride 96 L Carbon Dioxide 30 Anion Gap 17 BUN 35 H Creatinine 1.5 Est GFR ( Amer) > 60 Est GFR (Non-Af Amer) 50 Random Glucose 105 Calcium 9.1 Total Bilirubin 0.7 AST 42 ALT 26 Alkaline Phosphatase 73 Ammonia Troponin I NT-Pro-B Natriuret Pep 2930 H Total Protein 8.1 Albumin 3.6 Globulin 4.5 H Albumin/Globulin Ratio 0.8 L Lipase 139 Urine Color Urine Clarity Urine pH Ur Specific Haiku Urine Protein Urine Glucose (UA) Urine Ketones Urine Blood Urine Nitrate Urine Bilirubin Urine Urobilinogen Ur Leukocyte Esterase Urine WBC (Auto) Urine RBC (Auto) Ur Squamous Epith Cells Hyaline Casts Urine Opiates Screen Urine Methadone Screen Ur Barbiturates Screen Ur Phencyclidine Scrn Ur Amphetamines Screen U Benzodiazepines Scrn U Oth Cocaine Metabols U Cannabinoids Screen 07/22/17 07/22/17 07/22/17 03:44 04:18 04:39 WBC RBC Hgb Hct MCV MCH MCHC RDW Plt Count MPV Neut % (Auto) Lymph % (Auto) Sherman % (Auto) Eos % (Auto) Baso % (Auto) Neut # Lymph # Sherman # Eos # Baso # PT INR APTT Sodium Potassium Chloride Carbon Dioxide Anion Gap BUN Creatinine Est GFR ( Amer) Est GFR (Non-Af Amer) Random Glucose Calcium Total Bilirubin AST ALT Alkaline Phosphatase Ammonia < 9 L Troponin I 0.0850 NT-Pro-B Natriuret Pep Total Protein Albumin Globulin Albumin/Globulin Ratio Lipase Urine Color Yellow Urine Clarity Clear Urine pH 6.0 Ur Specific Haiku 1.012 Urine Protein 1+ H Urine Glucose (UA) Normal Urine Ketones Negative Urine Blood Negative Urine Nitrate Negative Urine Bilirubin Negative Urine Urobilinogen Normal Ur Leukocyte Esterase Neg Urine WBC (Auto) 2 Urine RBC (Auto) < 1 Ur Squamous Epith Cells < 1 Hyaline Casts 11-20 H Urine Opiates Screen Urine Methadone Screen Ur Barbiturates Screen Ur Phencyclidine Scrn Ur Amphetamines Screen U Benzodiazepines Scrn U Oth Cocaine Metabols U Cannabinoids Screen 07/22/17 04:39 WBC RBC Hgb Hct MCV MCH MCHC RDW Plt Count MPV Neut % (Auto) Lymph % (Auto) Sherman % (Auto) Eos % (Auto) Baso % (Auto) Neut # Lymph # Sherman # Eos # Baso # PT INR APTT Sodium Potassium Chloride Carbon Dioxide Anion Gap BUN Creatinine Est GFR ( Amer) Est GFR (Non-Af Amer) Random Glucose Calcium Total Bilirubin AST ALT Alkaline Phosphatase Ammonia Troponin I NT-Pro-B Natriuret Pep Total Protein Albumin Globulin Albumin/Globulin Ratio Lipase Urine Color Urine Clarity Urine pH Ur Specific Haiku Urine Protein Urine Glucose (UA) Urine Ketones Urine Blood Urine Nitrate Urine Bilirubin Urine Urobilinogen Ur Leukocyte Esterase Urine WBC (Auto) Urine RBC (Auto) Ur Squamous Epith Cells Hyaline Casts Urine Opiates Screen Negative Urine Methadone Screen Negative Ur Barbiturates Screen Negative Ur Phencyclidine Scrn Negative Ur Amphetamines Screen Negative U Benzodiazepines Scrn Positive U Oth Cocaine Metabols Positive U Cannabinoids Screen Negative Assessment & Plan - Assessment and Plan (Free Text) Assessment: Abdominal Pain * Likely from fluid retention due to CHF * BNP 2930 * Lasix 60 mg IV Q12H Chronic Lymphedema/ Ulcerations * wound care referral, help appreciated CHF * CXR: Cardiomegaly, venous congestion * BNP: 2930 * ECHO (02/2017): LV systolic function severely reduced. LV mildly dilated. Severe global hypokinesis of LV. Negative for endocarditis. * Lasix 60 mg IV Q12H * resume home med: HCTZ 50mg PO daily * resume home med: Aldactone 25mg PO daily (patient has not been taking) * I's & O's, daily weight * heart healthy diet, fluid restriction Hyperkalemia * potassium 5.6 * kayexalate ordered * follow up repeat BMP at 8am * patient will also be diuresed w/ IV lasix FORTUNATO * Creatinine 1.5, baseline is closer to 1 * gentle IV fluid hydration Anxiety and depression * Prozac 40mg po daily * Xanax 1mg po Q6H PRN anxiety Afib * EKG in ED: Afib , Rate 71 on admission * Cardizem 30mg po q6H * Digoxin 0.125 mg PO daily * aspirin 325 mg po daily COPD * O2 2LNC * Duonebs Q6H PRN * Singulair 10 mg PO HS HTN * Lasix 60 mg IV Q12h * Cardizem 30mg po q6h * restarted home meds: HCTZ 50mg PO daily, Aldactone 25mg PO daily * Enalapril 10 mg PO daily CAD * Crestor 5mg PO HS * ASA 325mg Tobacco Use Disorder * Smoking Cessation * Nicoderm Patch Cocaine Use Disorder * UDS + for cocaine * AVOID BB Prophylactic Measures * GI PPX: Protonix 40mg PO daily * DVT PPX: SCDs, VTE c/i due to hx of splenic infarct All medical management as per Dr. Ocampo
[2017-07-22] MEDS ORDERED: Sod Polystyrene Sulf 15 gm/60 ml Oral Susp PO ONE ×2 (06:10→10:00)
[2017-07-22] MEDS ORDERED: Albuterol-Ipratrop 3 mg / 0.5 (3 ml) UD INH PRN (06:19)
[2017-07-22] MEDS ORDERED: Oxycodone/Acetaminophen 5/325 mg Tab PO PRN (09:53)
[2017-07-22] MEDS: Digoxin 125 mcg (0.125 mg) Tab PO SCH (10:01)
[2017-07-22] MEDS: Aspirin 325 mg EC Tablets PO SCH (10:02)
[2017-07-22] MEDS: Pantoprazole 40 mg EC Tab PO SCH (10:02)
[2017-07-22] MEDS: Oxycodone/Acetaminophen 5/325 mg Tab PO PRN ×3 (10:06→22:35)
--- NOTE | 2017-07-22 10:22 | RAD ---
PROCEDURE: CHEST RADIOGRAPH, 1 VIEW HISTORY: Shortness of breath COMPARISON: 07/10/2017. FINDINGS: LUNGS: Again seen is mild pulmonary venous congestion and cephalization. PLEURA: Suspect small left pleural effusion. No pneumothorax. CARDIOVASCULAR: There is severe cardiomegaly. OSSEOUS STRUCTURES: No significant abnormalities. VISUALIZED UPPER ABDOMEN: Normal. OTHER FINDINGS: None. IMPRESSION: Severe cardiomegaly, persistent cephalization and mild pulmonary venous congestion. Also suspected is small left pleural effusion.
[2017-07-22 11:28] LABS: CHLORIDE 96 mmol/L (98-107); SODIUM 133 mmol/L (132-148)
[2017-07-22 11:31] LABS: BLOOD UREA NITROGEN 31 mg/dL (9-20); CALCIUM 8.8 mg/dl (8.6-10.4); CARBON DIOXIDE 26 mmol/L (22-30); GFR AFRICAN-AMERICAN > 60; GLUCOSE,RANDOM 109 mg/dL (75-110)
--- NOTE | 2017-07-22 22:15 | US ---
EXAM: US Abdomen Complete CLINICAL HISTORY: 46 years old, male; Pain; Abdominal pain TECHNIQUE: Real-time ultrasound of the abdomen (complete) with image documentation. COMPARISON: CT - ABD PELVIS IV CONTRAST ONLY 06/05/2017 1:11:22 AM FINDINGS: Liver: Enlarged, measured at 23 cm. Increased echogenicity. Nodular contour. Gallbladder: No gallstones. Gallbladder not well distended. Gallbladder wall edema, wall thickness measured at 11 mm. Fluid visualized around the gallbladder. Common bile duct: No dilation. Pancreas: Not visualized. Kidneys: Left kidney measured at 13.3 cm. Right kidney measured at 14.1 cm. No hydronephrosis. Spleen: Size upper limits of normal. Aorta/IVC: Unremarkable as visualized. Limited evaluation. IMPRESSION: Liver enlarged, measured at 23 cm. Increased echogenicity. Nodular contour. Gallbladder not well distended. Gallbladder wall edema, wall thickness measured at 11 mm. Fluid visualized around gallbladder. Pancreas not visualized. Correlate clinically. Followup as warranted.
[2017-07-23] MEDS: Oxycodone/Acetaminophen 5/325 mg Tab PO PRN ×3 (05:22→20:18)
--- NOTE | 2017-07-23 07:14 | CP.PCM.PN ---
<Angela Davis - Last Filed: 07/23/17 13:25> Subjective - Date & Time of Evaluation Date of Evaluation: 07/23/17 Time of Evaluation: 07:00 - Subjective Subjective: Medicine Note for Dr. Ocampo Patient was seen and examined at bedside. Reports his breathing has improved. Denied fever, chills, headache, chest pain, abdominal pain, n/v/d/c, or urinary symptoms. Objective - Vital Signs/Intake and Output Vital Signs (last 24 hours): Temp Pulse Resp BP Pulse Ox 97.4 F L 43 L 22 80/56 L 96 07/22/17 23:45 07/22/17 23:45 07/22/17 23:45 07/23/17 03:41 07/22/17 23:45 - Medications Medications: Current Medications Albuterol/Ipratropium (Duoneb 3 Mg/0.5 Mg (3 Ml) Ud) 3 ml INH RQ6 PRN PRN Reason: Shortness of Breath Alprazolam (Xanax) 1 mg PO Q6H PRN PRN Reason: Anxiety Last Admin: 07/23/17 03:28 Dose: 1 mg Aspirin (Ecotrin) 325 mg PO DAILY [facility] Last Admin: 07/22/17 10:02 Dose: 325 mg Digoxin (Lanoxin) 0.125 mg PO DAILY [facility] Last Admin: 07/22/17 10:01 Dose: 0.125 mg Diltiazem HCl (Cardizem) 30 mg PO QID [facility] Last Admin: 07/22/17 21:24 Dose: 30 mg Enalapril Maleate (Vasotec) 10 mg PO DAILY [facility] Last Admin: 07/22/17 09:49 Dose: Not Given Fluoxetine HCl (Prozac) 40 mg PO DAILY [facility] Last Admin: 07/22/17 10:20 Dose: 40 mg Furosemide (Lasix) 60 mg IVP Q12H [facility] Last Admin: 07/23/17 03:41 Dose: 60 mg Hydrochlorothiazide (Hydrodiuril) 50 mg PO DAILY [facility] Last Admin: 07/22/17 10:02 Dose: 50 mg Lorazepam (Ativan) 1 mg IVP Q6H PRN PRN Reason: Anxiety Last Admin: 07/23/17 03:45 Dose: 1 mg Montelukast Sodium (Singulair) 10 mg PO HS [facility] Last Admin: 07/22/17 21:24 Dose: 10 mg Nicotine (Nicoderm Cq) 1 patch TD DAILY [facility] Last Admin: 07/22/17 10:19 Dose: 1 patch Oxycodone/Acetaminophen (Percocet 5/325 Mg Tab) 2 tab PO Q6 PRN PRN Reason: Pain, moderate (4-7) Last Admin: 07/23/17 05:22 Dose: 2 tab Pantoprazole Sodium (Protonix Ec Tab) 40 mg PO DAILY [facility] Last Admin: 07/22/17 10:02 Dose: 40 mg Rosuvastatin Calcium (Crestor) 5 mg PO HS [facility] Last Admin: 07/22/17 21:24 Dose: 5 mg Spironolactone (Aldactone) 25 mg PO DAILY [facility] Last Admin: 07/22/17 10:02 Dose: 25 mg - Labs Labs: 07/22/17 11:09 PT 14.2 SECONDS (9.7-12.2) H 07/22/17 03:44 INR 1.3 07/22/17 03:44 APTT 36 SECONDS (21-34) H 07/22/17 03:44 - Constitutional Appears: No Acute Distress - Head Exam Head Exam: NORMAL INSPECTION, NORMOCEPHALIC - Eye Exam Eye Exam: EOMI, Normal appearance, PERRL. absent: Nystagmus, Scleral icterus Pupil Exam: NORMAL ACCOMODATION - ENT Exam ENT Exam: Mucous Membranes Dry - Respiratory Exam Respiratory Exam: NORMAL BREATHING PATTERN. absent: Decreased Breath Sounds - Cardiovascular Exam Cardiovascular Exam: REGULAR RHYTHM, RRR, +S1, +S2 - GI/Abdominal Exam GI & Abdominal Exam: Distended, Soft, Normal Bowel Sounds, Organomegaly. absent : Tenderness - Extremities Exam Extremities Exam: Pedal Edema Additional comments: bilateral lower extremity erythema non pitting edema bilaterally crusted lesions to posterior calves - Neurological Exam Neurological Exam: Alert, Awake, CN II-XII Intact, Oriented x3 - Skin Skin Exam: Dry, Intact, Normal Color Assessment and Plan - Assessment and Plan (Free Text) Plan: Abdominal Pain * Likely from fluid retention due to CHF * BNP 2930 * Lasix 60 mg IV Q12H * Abdominal US- nodular enlarged liver measuring 23mm. gallbladder wall edema with thickness of 11mm, fluid around the gallbladder. Hyperkalemia * potassium 5.6 on admission * kayexalate ordered- patient refused * Repeat BMP at 8am - was 5.0 * patient will also be diuresed w/ IV lasix * Continue to monitor CHF * CXR: Cardiomegaly, venous congestion * BNP: 2930 * ECHO (02/2017): LV systolic function severely reduced. LV mildly dilated. Severe global hypokinesis of LV. Negative for endocarditis. * Lasix 60 mg IV Q12H * resume home med: HCTZ 50mg PO daily * resume home med: Aldactone 25mg PO daily (patient has not been taking) * I's & O's, daily weight * heart healthy diet, fluid restriction Chronic Lymphedema/ Ulcerations * Wound care referral, help appreciated FORTUNATO * Creatinine 1.5, baseline is closer to 1 * gentle IV fluid hydration Anxiety and depression * Prozac 40mg po daily * Xanax 1mg po Q6H PRN anxiety Afib * EKG in ED: Afib , Rate 71 on admission * Cardizem 30mg po q6H * Digoxin 0.125 mg PO daily * Aspirin 325 mg po daily COPD * O2 2LNC * Duonebs Q6H PRN * Singulair 10 mg PO HS HTN * Lasix 60 mg IV Q12h * Cardizem 30mg po q6h * Restarted home meds: HCTZ 50mg PO daily, Aldactone 25mg PO daily * Enalapril 10 mg PO daily CAD * Crestor 5mg PO HS * ASA 325mg Tobacco Use Disorder * Smoking Cessation * Nicoderm Patch Cocaine Use Disorder * UDS + for cocaine * AVOID BB Prophylactic Measures * GI PPX: Protonix 40mg PO daily * DVT PPX: SCDs, VTE c/i due to hx of splenic infarct DW Dr. Terrence Davis DO, PGY-1 <Roque Ocampo Jr. - Last Filed: 07/24/17 16:08> Objective - Vital Signs/Intake and Output Vital Signs (last 24 hours): Temp Pulse Resp BP Pulse Ox 97.4 F L 94 H 20 124/77 96 07/24/17 08:27 07/24/17 08:27 07/24/17 08:27 07/24/17 08:27 07/24/17 08:27 - Labs Labs: 07/24/17 06:19 07/24/17 06:19 PT 14.2 SECONDS (9.7-12.2) H 07/22/17 03:44 INR 1.3 07/22/17 03:44 APTT 36 SECONDS (21-34) H 07/22/17 03:44 Attending/Attestation - Attestation I have personally seen and examined this patient.: Yes I have fully participated in the care of the patient.: Yes I have reviewed all pertinent clinical information, including history, physical exam and plan: Yes Notes (Text): 07/24/17 16:07 Agree with resident note and plan of care
[2017-07-23 07:55] LABS: BASO # 0.1 K/uL (0.0-0.2); BASO % 1.2 % (0.0-2.0); EOS # 0.3 K/uL (0.0-0.7); EOS % 3.3 % (0.0-4.0); HEMATOCRIT 39.6 % (35.0-51.0); LYMPH # 1.6 K/uL (1.0-4.3); LYMPH % 16.2 % (20.0-40.0); MEAN CELL VOLUME 76.1 fL (80.0-94.0); MEAN CORPUSCULAR HEMOGLOBIN 23.7 pg (27.0-31.0); MEAN CORPUSCULAR HGB CONC 31.2 g/dL (33.0-37.0); MONO # 1.3 K/uL (0.0-0.8); MONO % 12.5 % (0.0-10.0); RED CELL DISTRIBUTION WIDTH 18.6 % (11.5-14.5)
[2017-07-23 08:01] VITALS: RESP 20
[2017-07-23 08:16] LABS: CHLORIDE 91 mmol/L (98-107); POTASSIUM 4.7 mmol/L (3.6-5.2); SODIUM 131 mmol/L (132-148)
[2017-07-23 08:18] LABS: ALB/GLOB RATIO 0.8 (1.0-2.1); AST/SGOT 28 U/L (17-59); BILIRUBIN,TOTAL 0.7 mg/dL (0.2-1.3); CARBON DIOXIDE 31 mmol/L (22-30); GFR AFRICAN-AMERICAN > 60; TOTAL PROTEIN 7.6 g/dL (6.3-8.3)
[2017-07-23 08:19] LABS: ALKALINE PHOSPHATASE 81 U/L (38-126); ALT/SGPT 27 U/L (21-72); BLOOD UREA NITROGEN 38 mg/dL (9-20); CALCIUM 8.8 mg/dl (8.6-10.4); GLUCOSE,RANDOM 98 mg/dL (75-110); MAGNESIUM 1.9 mg/dL (1.6-2.3); PHOSPHOROUS 5.3 mg/dL (2.5-4.5)
--- NOTE | 2017-07-23 09:13 | CP.PCM.PN ---
<Angela Davis - Last Filed: 07/23/17 09:13> Subjective - Date & Time of Evaluation Date of Evaluation: 07/22/17 Time of Evaluation: 07:00 - Subjective Subjective: Medicine Note for Dr. Ocampo Patient was seen and examined at bedside. Reports his breathing has improved. Denied fever, chills, headache, chest pain, abdominal pain, n/v/d/c, or urinary symptoms. Objective - Vital Signs/Intake and Output Vital Signs (last 24 hours): Temp Pulse Resp BP Pulse Ox 97.6 F 64 20 122/77 95 07/23/17 08:00 07/23/17 08:00 07/23/17 08:00 07/23/17 08:00 07/23/17 08:00 - Medications Medications: Current Medications Albuterol/Ipratropium (Duoneb 3 Mg/0.5 Mg (3 Ml) Ud) 3 ml INH RQ6 PRN PRN Reason: Shortness of Breath Alprazolam (Xanax) 1 mg PO Q6H PRN PRN Reason: Anxiety Last Admin: 07/23/17 08:58 Dose: 1 mg Aspirin (Ecotrin) 325 mg PO DAILY [facility] Last Admin: 07/22/17 10:02 Dose: 325 mg Digoxin (Lanoxin) 0.125 mg PO DAILY [facility] Last Admin: 07/22/17 10:01 Dose: 0.125 mg Diltiazem HCl (Cardizem) 30 mg PO QID [facility] Last Admin: 07/22/17 21:24 Dose: 30 mg Enalapril Maleate (Vasotec) 10 mg PO DAILY [facility] Last Admin: 07/22/17 09:49 Dose: Not Given Fluoxetine HCl (Prozac) 40 mg PO DAILY [facility] Last Admin: 07/23/17 08:58 Dose: 40 mg Furosemide (Lasix) 60 mg IVP Q12H [facility] Last Admin: 07/23/17 03:41 Dose: 60 mg Hydrochlorothiazide (Hydrodiuril) 50 mg PO DAILY [facility] Last Admin: 07/22/17 10:02 Dose: 50 mg Lorazepam (Ativan) 1 mg IVP Q6H PRN PRN Reason: Anxiety Last Admin: 07/23/17 03:45 Dose: 1 mg Montelukast Sodium (Singulair) 10 mg PO HS [facility] Last Admin: 07/22/17 21:24 Dose: 10 mg Nicotine (Nicoderm Cq) 1 patch TD DAILY [facility] Last Admin: 07/23/17 09:00 Dose: 1 patch Oxycodone/Acetaminophen (Percocet 5/325 Mg Tab) 2 tab PO Q6 PRN PRN Reason: Pain, moderate (4-7) Last Admin: 07/23/17 05:22 Dose: 2 tab Pantoprazole Sodium (Protonix Ec Tab) 40 mg PO DAILY [facility] Last Admin: 07/22/17 10:02 Dose: 40 mg Rosuvastatin Calcium (Crestor) 5 mg PO [facility] Last Admin: 07/22/17 21:24 Dose: 5 mg Spironolactone (Aldactone) 25 mg PO DAILY [facility] Last Admin: 07/22/17 10:02 Dose: 25 mg - Labs Labs: 07/23/17 07:25 07/23/17 07:25 PT 14.2 SECONDS (9.7-12.2) H 07/22/17 03:44 INR 1.3 07/22/17 03:44 APTT 36 SECONDS (21-34) H 07/22/17 03:44 - Constitutional Appears: No Acute Distress - Head Exam Head Exam: NORMAL INSPECTION, NORMOCEPHALIC - Eye Exam Eye Exam: EOMI, Normal appearance, PERRL - ENT Exam ENT Exam: Mucous Membranes Moist - Respiratory Exam Respiratory Exam: Clear to Ausculation Bilateral, NORMAL BREATHING PATTERN - Cardiovascular Exam Cardiovascular Exam: REGULAR RHYTHM, RRR - GI/Abdominal Exam GI & Abdominal Exam: Soft, Normal Bowel Sounds. absent: Distended, Tenderness - Extremities Exam Extremities Exam: Normal Inspection. absent: Pedal Edema, Tenderness Additional comments: bilateral lower extremity erythema non pitting edema bilaterally crusted lesions to posterior calves - Neurological Exam Neurological Exam: Alert, Awake, Oriented x3 - Psychiatric Exam Psychiatric exam: Normal Affect, Normal Mood - Skin Skin Exam: Dry, Intact, Normal Color, Warm Assessment and Plan - Assessment and Plan (Free Text) Plan: Abdominal Pain * Likely from fluid retention due to CHF * BNP 2930 * Lasix 60 mg IV Q12H * Abdominal US- nodular enlarged liver measuring 23mm. gallbladder wall edema with thickness of 11mm, fluid around the gallbladder. Hyperkalemia * potassium 5.6 on admission * kayexalate ordered- patient refused * Repeat BMP at 8am - was 5.0 * patient will also be diuresed w/ IV lasix * Continue to monitor CHF * CXR: Cardiomegaly, venous congestion * BNP: 2930 * ECHO (02/2017): LV systolic function severely reduced. LV mildly dilated. Severe global hypokinesis of LV. Negative for endocarditis. * Lasix 60 mg IV Q12H * resume home med: HCTZ 50mg PO daily * resume home med: Aldactone 25mg PO daily (patient has not been taking) * I's & O's, daily weight * heart healthy diet, fluid restriction Chronic Lymphedema/ Ulcerations * Wound care referral, help appreciated FORTUNATO * Creatinine 1.5, baseline is closer to 1 * gentle IV fluid hydration Anxiety and depression * Prozac 40mg po daily * Xanax 1mg po Q6H PRN anxiety Afib * EKG in ED: Afib , Rate 71 on admission * Cardizem 30mg po q6H * Digoxin 0.125 mg PO daily * Aspirin 325 mg po daily COPD * O2 2LNC * Duonebs Q6H PRN * Singulair 10 mg PO HS HTN * Lasix 60 mg IV Q12h * Cardizem 30mg po q6h * Restarted home meds: HCTZ 50mg PO daily, Aldactone 25mg PO daily * Enalapril 10 mg PO daily CAD * Crestor 5mg PO HS * ASA 325mg Tobacco Use Disorder * Smoking Cessation * Nicoderm Patch Cocaine Use Disorder * UDS + for cocaine * AVOID BB Prophylactic Measures * GI PPX: Protonix 40mg PO daily * DVT PPX: SCDs, VTE c/i due to hx of splenic infarct DW Dr. Terrence Davis DO, PGY-1 <Roque Ocampo Jr. - Last Filed: 07/24/17 16:06> Objective - Vital Signs/Intake and Output Vital Signs (last 24 hours): Temp Pulse Resp BP Pulse Ox 97.4 F L 94 H 20 124/77 96 07/24/17 08:27 07/24/17 08:27 07/24/17 08:27 07/24/17 08:27 07/24/17 08:27 - Labs Labs: 07/24/17 06:19 07/24/17 06:19 PT 14.2 SECONDS (9.7-12.2) H 07/22/17 03:44 INR 1.3 07/22/17 03:44 APTT 36 SECONDS (21-34) H 07/22/17 03:44 Attending/Attestation - Attestation I have personally seen and examined this patient.: Yes I have fully participated in the care of the patient.: Yes I have reviewed all pertinent clinical information, including history, physical exam and plan: Yes Notes (Text): 07/24/17 16:06 Agree with resident note and plan of care
[2017-07-23] MEDS: Aspirin 325 mg EC Tablets PO SCH ×2 (10:30→11:57)
[2017-07-23] MEDS: Pantoprazole 40 mg EC Tab PO SCH ×2 (10:30→11:58)
[2017-07-23] MEDS: Digoxin 125 mcg (0.125 mg) Tab PO SCH (11:57)
[2017-07-23 11:58] VITALS: PULSE 61
--- NOTE | 2017-07-23 12:57 | CARD ---
APPROVED REPORT EKG Measurement Heart [id number] <Conclusion> Atrial fibrillation Pulmonary disease pattern Left anterior fascicular block Inferior infarct, age undetermined ST & T wave abnormality, consider lateral ischemia Abnormal ECG
[2017-07-24] MEDS: Oxycodone/Acetaminophen 5/325 mg Tab PO PRN (05:13)
[2017-07-24 06:51] LABS: BASO # 0.1 K/uL (0.0-0.2); EOS # 0.3 K/uL (0.0-0.7); EOS % 3.5 % (0.0-4.0); HEMATOCRIT 40.9 % (35.0-51.0); LYMPH # 2.1 K/uL (1.0-4.3); LYMPH % 21.7 % (20.0-40.0); MEAN CELL VOLUME 75.5 fL (80.0-94.0); MEAN CORPUSCULAR HEMOGLOBIN 23.4 pg (27.0-31.0); MEAN PLATELET VOLUME 8.1 fL (7.2-11.7); MONO # 1.3 K/uL (0.0-0.8); MONO % 14.1 % (0.0-10.0); NRBC % 0.2 % (0.0-2.0); RED CELL DISTRIBUTION WIDTH 18.8 % (11.5-14.5); WHITE BLOOD COUNT 9.5 K/uL (4.8-10.8)
--- NOTE | 2017-07-24 06:54 | CP.PCM.DIS ---
Provider - Provider Date of Admission: 07/22/17 05:03 Attending physician: Roque Ocampo Jr, MD Time Spent in preparation of Discharge (in minutes): 55 Hospital Course - Lab Results Lab Results: Most Recent Lab Values WBC 10.0 K/uL (4.8-10.8) 07/23/17 07:25 RBC 5.21 Mil/uL (4.40-5.90) 07/23/17 07:25 Hgb 12.4 g/dL (12.0-18.0) 07/23/17 07:25 Hct 39.6 % (35.0-51.0) 07/23/17 07:25 MCV 76.1 fL (80.0-94.0) L 07/23/17 07:25 MCH 23.7 pg (27.0-31.0) L 07/23/17 07:25 MCHC 31.2 g/dL (33.0-37.0) L 07/23/17 07:25 RDW 18.6 % (11.5-14.5) H 07/23/17 07:25 Plt Count 290 K/uL (130-400) 07/23/17 07:25 MPV 8.0 fL (7.2-11.7) 07/23/17 07:25 Neut % (Auto) 66.8 % (50.0-75.0) 07/23/17 07:25 Lymph % (Auto) 16.2 % (20.0-40.0) L 07/23/17 07:25 [place] % (Auto) 12.5 % (0.0-10.0) H 07/23/17 07:25 Eos % (Auto) 3.3 % (0.0-4.0) 07/23/17 07:25 Baso % (Auto) 1.2 % (0.0-2.0) 07/23/17 07:25 Neut # 6.7 K/uL (1.8-7.0) 07/23/17 07:25 Lymph # 1.6 K/uL (1.0-4.3) 07/23/17 07:25 [place] # 1.3 K/uL (0.0-0.8) H 07/23/17 07:25 Eos # 0.3 K/uL (0.0-0.7) 07/23/17 07:25 Baso # 0.1 K/uL (0.0-0.2) 07/23/17 07:25 PT 14.2 SECONDS (9.7-12.2) H 07/22/17 03:44 INR 1.3 07/22/17 03:44 APTT 36 SECONDS (21-34) H 07/22/17 03:44 Sodium 131 mmol/L (132-148) L 07/23/17 07:25 Potassium 4.7 mmol/L (3.6-5.2) 07/23/17 07:25 Chloride 91 mmol/L (98-107) L 07/23/17 07:25 Carbon Dioxide 31 mmol/L (22-30) H 07/23/17 07:25 Anion Gap 14 (10-20) 07/23/17 07:25 BUN 38 mg/dL (9-20) H 07/23/17 07:25 Creatinine 1.3 MG/DL (0.8-1.5) 07/23/17 07:25 Est GFR ( Amer) > 60 07/23/17 07:25 Est GFR (Non-Af Amer) 59 07/23/17 07:25 Random Glucose 98 mg/dL (75-110) 07/23/17 07:25 Calcium 8.8 mg/dl (8.6-10.4) 07/23/17 07:25 Phosphorus 5.3 mg/dL (2.5-4.5) H 07/23/17 07:25 Magnesium 1.9 mg/dL (1.6-2.3) 07/23/17 07:25 Total Bilirubin 0.7 mg/dL (0.2-1.3) 07/23/17 07:25 AST 28 U/L (17-59) 07/23/17 07:25 ALT 27 U/L (21-72) 07/23/17 07:25 Alkaline Phosphatase 81 U/L (38-126) 07/23/17 07:25 Ammonia < 9 umol/L (9-33) L 07/22/17 03:44 Troponin I 0.0850 ng/mL (0.00-0.120) 07/22/17 04:18 NT-Pro-B Natriuret Pep 2930 pg/mL (0-450) H 07/22/17 03:44 Total Protein 7.6 g/dL (6.3-8.3) 07/23/17 07:25 Albumin 3.4 g/dL (3.5-5.0) L 07/23/17 07:25 Globulin 4.2 gm/dL (2.2-3.9) H 07/23/17 07:25 Albumin/Globulin Ratio 0.8 (1.0-2.1) L 07/23/17 07:25 Lipase 139 U/L (23-300) 07/22/17 03:44 Urine Color Yellow (YELLOW) 07/22/17 04:39 Urine Clarity Clear (Clear) 07/22/17 04:39 Urine pH 6.0 (5.0-8.0) 07/22/17 04:39 Ur Specific [place] 1.012 (1.003-1.030) 07/22/17 04:39 Urine Protein 1+ mg/dL (NEGATIVE) H 07/22/17 04:39 Urine Glucose (UA) Normal mg/dL (Normal) 07/22/17 04:39 Urine Ketones Negative mg/dL (NEGATIVE) 07/22/17 04:39 Urine Blood Negative (NEGATIVE) 07/22/17 04:39 Urine Nitrate Negative (NEGATIVE) 07/22/17 04:39 Urine Bilirubin Negative (NEGATIVE) 07/22/17 04:39 Urine Urobilinogen Normal mg/dL (0.2-1.0) 07/22/17 04:39 Ur Leukocyte Esterase Neg Nancie/uL (Negative) 07/22/17 04:39 Urine WBC (Auto) 2 /hpf (0-5) 07/22/17 04:39 Urine RBC (Auto) < 1 /hpf (0-3) 07/22/17 04:39 Ur Squamous Epith Cells < 1 /hpf (0-5) 07/22/17 04:39 Hyaline Casts 11-20 /lpf (0-2) H 07/22/17 04:39 Urine Opiates Screen Negative (NEGATIVE) 07/22/17 04:39 Urine Methadone Screen Negative (NEGATIVE) 07/22/17 04:39 Ur Barbiturates Screen Negative (NEGATIVE) 07/22/17 04:39 Ur Phencyclidine Scrn Negative (NEGATIVE) 07/22/17 04:39 Ur Amphetamines Screen Negative (NEGATIVE) 07/22/17 04:39 U Benzodiazepines Scrn Positive (NEGATIVE) 07/22/17 04:39 U Oth Cocaine Metabols Positive (NEGATIVE) 07/22/17 04:39 U Cannabinoids Screen Negative (NEGATIVE) 07/22/17 04:39 - Hospital Course Hospital Course: Upon Admission: cc: "my stomach is getting bigger and it's hard for me to breathe" Patient is a 46 year old male with PMHx HTN, CAD, CHF, Afib, COPD who presents to the ED with complaint of stomach distention, shortness of breath, nausea, and vomiting. Patient states his symptoms started yesterday evening around 6:30 -7PM. Patient states he went to a buffet with his medical day care and after he returned home in the evening he felt a stabbing pain in his abdomen. Patient reports vomiting twice between 6:30-7PM but states the vomit was white and foamy, denies food contents, blood, bilious fluid. Patient states that he also felt his anxiety heightening at that time and he took his medication and tried to relax in his recliner. Patient states he felt better but then the pain came back and felt feverish, chills, and short of breath. Patient states he then called EMS. Patient also admits to increased leg swelling with "syrupy " exudates from his legs which is worse than his normal edema and erythema. Patient denies chest pain or palpitations. Patient currently denying all symptoms and states improvement in shortness of breath after receiving IV lasix in the ED. PMH: HTN, CAD, CHF, Afib, COPD, ARLENE, Herniated discs L-spine, Bipolar/Depression , Asthma, hx of splenic infarct Meds: Diltiazem, ASA, Carvedilol, digoxin, enalapril, HCTZ, Lasix, Albuterol, Prozac, Simvastatin, Montelukast, Xanax, Gabapentin Allergy: Apixaban, clopidogrel, enoxaparin, Morphine PSH: Appendectomy (2008), Coronary stents x4 ([id number]) Hosp: multiple admissions recently for SOB, splenic hematoma and bacteremia FH: Denies Social: former tobacco use (quit 5 months ago)- wears a nicotine patch. Social alcohol use; Admits to Cocaine use- last use 3 weeks ago Throughout Hospital Course: Patient was admitted for CHF exacerbation. Patient has hx of Atrial fibrillation and CHF. EKG on admission showed Afib , Rate 71. Anticoagulation was contraindicated due to patient's hx of splenic infarct. Echo (02/2017) showed LV systolic function severely reduced. LV mildly dilated. Severe global hypokinesis of LV. Negative for endocarditis. Patient was resumed on home medications and received lasix every 12 hours. Patient reported abdominal pain: Abdominal US- nodular enlarged liver measuring 23mm. gallbladder wall edema with thickness of 11mm, fluid around the gallbladder. Patient feeling better and will continue to follow up with Dr. Ocampo. Patient cleared for discharge as per Dr. Ocampo. This is a brief summary of the patient's hospital course, please review EMR for full report. Discharge Exam - Head Exam Head Exam: NORMAL INSPECTION, NORMOCEPHALIC - Eye Exam Eye Exam: EOMI, Normal appearance, PERRL Pupil Exam: NORMAL ACCOMODATION - ENT Exam ENT Exam: Mucous Membranes Moist - Respiratory Exam Respiratory Exam: Clear to PA & Lateral, NORMAL BREATHING PATTERN. absent: Decreased Breath Sounds, Wheezes - Cardiovascular Exam Cardiovascular Exam: REGULAR RHYTHM, RRR, +S1, +S2 - GI/Abdominal Exam GI & Abdominal Exam: Distended, Normal Bowel Sounds, Soft. absent: Tenderness - Extremities Exam Extremities exam: pedal edema, tenderness, pedal pulses present Additional comments: bilateral lower extremity erythema non pitting edema bilaterally crusted lesions to posterior calves - Neurological Exam Neurological exam: Alert, Oriented x3 - Psychiatric Exam Psychiatric exam: Normal Affect, Normal Mood - Skin Skin Exam: Dry, Intact, Normal Color, Warm Discharge Plan - Follow Up Plan Condition: STABLE Disposition: HOME/ ROUTINE Instructions: Acute Abdominal Pain (DC), Acute Abdominal Pain (GEN), Heart Failure (DC), Heart Failure (GEN) Additional Instructions: Patient is to continue his home medications. Patient is to follow up with Dr. Ocampo in 1 week. Patient is to stick to a low salt diet, fluid restriction <1200mL. Referrals: Roque Ocampo Jr., MD [Medical Doctor] -
[2017-07-24 06:56] LABS: CHLORIDE 95 mmol/L (98-107); POTASSIUM 4.3 mmol/L (3.6-5.2); SODIUM 133 mmol/L (132-148)
[2017-07-24 06:58] LABS: ALB/GLOB RATIO 0.8 (1.0-2.1); ALKALINE PHOSPHATASE 80 U/L (38-126); AST/SGOT 25 U/L (17-59); BILIRUBIN,TOTAL 0.7 mg/dL (0.2-1.3); BLOOD UREA NITROGEN 33 mg/dL (9-20); CARBON DIOXIDE 28 mmol/L (22-30); GFR AFRICAN-AMERICAN > 60; TOTAL PROTEIN 7.7 g/dL (6.3-8.3)
[2017-07-24 06:59] LABS: ALT/SGPT 26 U/L (21-72); CALCIUM 8.8 mg/dl (8.6-10.4); GLUCOSE,RANDOM 87 mg/dL (75-110); MAGNESIUM 1.9 mg/dL (1.6-2.3); PHOSPHOROUS 3.8 mg/dL (2.5-4.5)
--- NOTE | 2017-07-24 07:00 | PCM.HF ---
Heart Failure Core Measure - Heart Failure Ejection Fraction: Less Than 40 % Left Ventricular Function to be assessed after discharge: No SHONDA Inhibitor Prescribed: Yes Beta-Yonis Prescribed: None Contraindication/Reason for not providing: THIS IS HELD DUE TO PATIENT'S COCAINE USE Angiotensin II Receptor Yonis Prescribed: No Contraindication/Reason for not providing: on ACEi AnticoagulationTherapy for Atrial Fibrillation/Atrialflutter: No Contraindication/Reason for not providing: HX OF ATRIAL FIBRILLATION. NO ANTICOAGULANTS DUE TO patient's hx of splenic Aldosterone Antagonist Prescribed: Yes Hydralazine Nitrate Prescribed: No Contraindication/Reason for not providing: on amiodarone Implantable Cardioverter Defibrillator Therapy: No Contraindication/Reason for not providing: Not required Cardiac Resynchronization Therapy Prescribed: No Contraindication/Reason for not providing: Not required - Follow up Will be discharged to: Home Follow Up Date (must be within 7 days from discharge): 07/31/17 Follow Up Time: 09:00
[2017-07-24 08:28] VITALS: BP 124/77; PULSE 94; TEMP 97.4; O2SAT 96
== END 2017-07-24 10:34 | disposition home or self-care (01) | DRG 292 ==
LOC: C.ER 02:56 → C.9E 05:03 → C.5T 06:07 → C.6T 07-23 08:46
PROVIDERS: ADMIT Internal Medicine; ATTEND Internal Medicine
DX: I11.0 Hypertensive heart disease with heart failure (principal); N17.9 Acute kidney failure, unspecified; L97.909 Non-pressure chronic ulcer of unspecified part of unspecified lower leg with unspecified severity; E87.5 Hyperkalemia; I50.9 Heart failure, unspecified; I48.91 Unspecified atrial fibrillation; J45.909 Unspecified asthma, uncomplicated; I25.10 Atherosclerotic heart disease of native coronary artery without angina pectoris; J44.9 Chronic obstructive pulmonary disease, unspecified; E78.00 Pure hypercholesterolemia, unspecified; G47.30 Sleep apnea, unspecified; Z87.891 Personal history of nicotine dependence; F14.90 Cocaine use, unspecified, uncomplicated; I89.0 Lymphedema, not elsewhere classified; F41.8 Other specified anxiety disorders; Z95.5 Presence of coronary angioplasty implant and graft; R10.9 Unspecified abdominal pain

== ENCOUNTER 2017-08-03 19:18 | Inpatient (IN) | payer MEDICARE, MEDICAID ==
[2017-08-03 19:19] VITALS: BMI 38.7
[2017-08-03] MEDS ORDERED: Iohexol 240 (50 ml) PO STA (20:02)
[2017-08-03] MEDS ORDERED: Iohexol 240 (50 ml) ONE (20:15)
[2017-08-03 20:16] LABS: BASO % 0.2 % (0.0-2.0); EOS # 0.1 K/uL (0.0-0.7); EOS % 0.4 % (0.0-4.0); HEMATOCRIT 44.4 % (35.0-51.0); LYMPH # 0.8 K/uL (1.0-4.3); LYMPH % 4.6 % (20.0-40.0); MEAN CELL VOLUME 74.8 fL (80.0-94.0); MEAN CORPUSCULAR HEMOGLOBIN 23.3 pg (27.0-31.0); MEAN CORPUSCULAR HGB CONC 31.1 g/dL (33.0-37.0); MEAN PLATELET VOLUME 7.9 fL (7.2-11.7); MONO # 1.5 K/uL (0.0-0.8); MONO % 8.8 % (0.0-10.0); PLATELET COUNT 270 K/uL (130-400); RED CELL DISTRIBUTION WIDTH 19.2 % (11.5-14.5); WHITE BLOOD COUNT 17.2 K/uL (4.8-10.8)
[2017-08-03 20:22] LABS: CHLORIDE 100 mmol/L (98-107)
[2017-08-03 20:23] LABS: POTASSIUM 3.6 mmol/L (3.6-5.2); SODIUM 141 mmol/L (132-148)
[2017-08-03 20:25] LABS: ALB/GLOB RATIO 0.8 (1.0-2.1); ALKALINE PHOSPHATASE 64 U/L (38-126); AST/SGOT 29 U/L (17-59); BILIRUBIN,TOTAL 1.3 mg/dL (0.2-1.3); BLOOD UREA NITROGEN 29 mg/dL (9-20); CARBON DIOXIDE 24 mmol/L (22-30); GFR AFRICAN-AMERICAN > 60; TOTAL PROTEIN 7.7 g/dL (6.3-8.3)
[2017-08-03 20:26] LABS: ALT/SGPT 25 U/L (21-72); CALCIUM 8.7 mg/dl (8.6-10.4); GLUCOSE,RANDOM 113 mg/dL (75-110)
[2017-08-03 20:27] LABS: ALCOHOL SERUM < 10 mg/dl (0-10)
[2017-08-03 20:32] LABS: INR 1.6
[2017-08-03 21:07] LABS: NEUTROPHIL 88 % (50-75); TOTAL CELLS COUNTED 100
[2017-08-03] MEDS ORDERED: Iodixanol 320 MG/ML 100 ML BOTTLE IV ONE (21:29)
[2017-08-03 21:36] LABS: RBC URINE 1 /hpf (0-3); URINE BACTERIA RARE (<OCC); URINE BILIRUBIN NEGATIVE (NEGATIVE); URINE BLOOD NEGATIVE (NEGATIVE); URINE COLOR Amber (YELLOW); URINE GLUCOSE (UA) NORMAL (Normal); URINE KETONE NEGATIVE (NEGATIVE); URINE LEUKOCYTE ESTERASE NEG Leu/uL (Negative); URINE PROTEIN 1+ mg/dL (NEGATIVE); WBC URINE 1 /hpf (0-5)
--- NOTE | 2017-08-03 22:33 | CT ---
EXAM: CT Abdomen and Pelvis With Intravenous Contrast CLINICAL HISTORY: 47 years old, male; Pain; Abdominal pain; Other: Left side; Patient HX: HX of appendectomy; Additional info: Left sided abd pain TECHNIQUE: Axial computed tomography images of the abdomen and pelvis with intravenous contrast. All CT scans at this facility use one or more dose reduction techniques, viz.: automated exposure control; ma/kV adjustment per patient size (including targeted exams where dose is matched to indication; i.e. head); or iterative reconstruction technique. Coronal and sagittal reformatted images were created and reviewed. CONTRAST: 100 mL of visipaque administered intravenously. COMPARISON: CT - ABD PELVIS IV CONTRAST ONLY 06/05/2017 1:11:22 AM FINDINGS: Lower thorax: The bilateral lung bases are clear. ABDOMEN: Liver: The liver is enlarged, and demonstrates diffuse fatty infiltration. Gallbladder and bile ducts: The gallbladder is decompressed. No calcified stones. No significant intra- or extrahepatic biliary ductal dilation. Pancreas: Enhances homogeneously. No ductal dilation. No discrete mass. Spleen: Decrease in the subcapsular air along lateral margin of the spleen. Adrenals: No acute findings. Kidneys and ureters: No acute findings. No hydronephrosis or renal calculi. No discrete solid mass. PELVIS: Bladder: No acute findings. Reproductive: No acute findings. Appendix: Surgically absent. ABDOMEN and PELVIS: Stomach and bowel: No obstruction. Again identified is a focus of fluid attenuation within the left paracolic gutter, this focus contains multiple foci of air and extends to the left lateral wall of the abdomen. This appearance is similar to previous examination performed 06/05/2017. Peritoneum: As above. Lymph nodes: No pathologically enlarged lymph nodes. Vasculature: Unremarkable. Bones: No acute fracture. IMPRESSION: Redemonstration of a focus of fluid attenuation and air within the left paracolic gutter , extending to the left lateral wall of the abdomen. Decrease in the subcapsular air along the lateral margin of the spleen.
[2017-08-03] MEDS ORDERED: Sodium Chloride 0.9% 500 ML IV ONE (22:48)
[2017-08-03] MEDS ORDERED: Ciprofloxacin 400mg/200ml D5W 400 MG/200 ML BAG IVPB STA (23:03)
--- NOTE | 2017-08-03 23:10 | C.PDOC ---
Time Seen by Provider: 08/03/17 19:37 Chief Complaint (Nursing): Abdominal Pain History Per: Patient Onset/Duration Of Symptoms: Days Current Symptoms Are (Timing): Worse Severity: Moderate Location Of Pain/Discomfort: LUQ, LLQ Quality Of Discomfort: "Pain" Associated Symptoms: Fever, Diarrhea Alleviating Factors: None Additional History Per: Prior Records Past Medical History Reviewed: Historical Data, Nursing Documentation, Vital Signs Vital Signs: Last Vital Signs Temp 98.6 F 08/03/17 19:23 Pulse 90 08/03/17 22:37 Resp 18 08/03/17 22:37 BP 138/82 08/03/17 22:55 Pulse Ox 96 08/03/17 22:37 - Medical History PMH: Anxiety, Arthritis, Asthma, Atrial Fibrillation, Back Problems, Bipolar Disorder, CAD, Cardia Arrhythmia, CHF, COPD, Depression, Emphysema, HTN, Hypercholesterolemia, Peripheral Edema, Sleep Apnea, Chronic Pain (Lower Back Pain) Surgical History: Appendectomy (2008), Coronary Stent (2008 - 2012 4 stents) - [facility] Procedures CORONAR ARTERIOGR-2 CATH (07/06/13) DRAINAGE OF SPLEEN, PERCUTANEOUS APPROACH (03/05/17) INJECT/INFUSE NEC (02/22/14) LEFT HEART CARDIAC CATH (07/06/13) LT HEART ANGIOCARDIOGRAM (07/06/13) NEBULIZER THERAPY (03/28/14) NON-INVASIVE MECHANICAL VENTILATION (03/26/15) TRANSFUSE NONAUT FROZEN PLASMA IN PERIPH VEIN, PERC (02/21/17) Family History: States: Unknown Family Hx, CAD, Diabetes - Social History Hx Tobacco Use: Yes Hx Alcohol Use: No Hx Substance Use: Yes (cocaine) - Immunization History Hx Tetanus Toxoid Vaccination: Yes Hx Influenza Vaccination: Yes Hx Pneumococcal Vaccination: Yes (08/2014) Review Of Systems Except As Marked, All Systems Reviewed And Found Negative. Constitutional: Positive for: Fever Cardiovascular: Negative for: Chest Pain Physical Exam - Physical Exam Appears: Chronically Ill Skin: Warm, Dry Head: Atraumatic Eye(s): bilateral: PERRL, EOMI Neck: Normal ROM, Supple Cardiovascular: Rhythm Regular Respiratory: Normal Breath Sounds, No Accessory Muscle Use Gastrointestinal/Abdominal: Tenderness (left sided) Back: No CVA Tenderness Extremity: Normal ROM Neurological/Psych: Oriented x3, Normal Motor, Normal Sensation ED Course And Treatment - Laboratory Results Result Diagrams: 08/03/17 20:12 08/03/17 20:12 Lab Interpretation: Abnormal Interpretation Of Abnormal: Leukocytosis with left shift. ECG: Interpreted By Me, Viewed By Me ECG Rhythm: Atrial Fibrillation, R BBB, Nonspecific Changes ECG Interpretation: Abnormal Rate From EC O2 Sat by Pulse Oximetry: 96 Pulse Ox Interpretation: Normal - Radiology CXR: Interpreted by Me, Viewed By Me CXR Interpretation: Yes: Cardiomegaly - CT Scan/US CT abd/pelv Other Rad Studies (CT/US): Read By Radiologist, Radiology Report Reviewed CT/US Interpretation: IMPRESSION: Redemonstration of a focus of fluid attenuation and air within the left. paracolic gutter , extending to the left lateral wall of the abdomen. Decrease in the subcapsular air along the lateral margin of the spleen. Disposition Discussed With DrRanda: Roque Ocampo Jr. Comment: He accepted pt on his service. Pt also signed out to the medical admitting resident. Doctor Will See Patient In The: Hospital Counseled Patient/Family Regarding: Studies Performed, Diagnosis - Disposition Disposition: HOSPITALIZED Disposition Time: 23:13 Condition: GUARDED - Clinical Impression Clinical Impression: Left sided abdominal pain, Abdominal fluid collection, Leukocytosis
[2017-08-03] MEDS ORDERED: metroNIDAZOLE IV 500 mg/100 ml 500 MG/100 ML BAG IVPB STA (23:51)
[2017-08-04] MEDS ORDERED: Sodium Chloride 0.9% 1,000 ML ONE (01:23)
[2017-08-04] MEDS ORDERED: metroNIDAZOLE IV 500 mg/100 ml 500 MG/100 ML BAG ONE (01:23)
[2017-08-04] MEDS ORDERED: Ciprofloxacin 400mg/200ml D5W 400 MG/200 ML BAG IVPB ONE (01:23)
[2017-08-04] MEDS: Sodium Chloride 0.9% 1,000 ML IV SCH ×2 (01:29→15:00)
[2017-08-04] MEDS ORDERED: Oxycodone/Acetaminophen 5/325 mg Tab PO ONE (03:25)
--- NOTE | 2017-08-04 04:15 | CP.PCM.HP ---
History of Present Illness - History of Present Illness History of Present Illness: CC: Abdominal pain HPI: (Patient was drowsy, sleepy and agitated, therefore unable to obtain an adequate HPI) Patient is a 47 year old male with past medical history of HTN, CAD, CHF, Afib, COPD, ARLENE, Herniated discs L-spine, Bipolar/Depression, Asthma, hx of splenic infarct, who presents to the ED with complaints of abdominal pain that is more localized to the LLQ and LUQ that has been ongoing for 2 days. Patient states that his pain is a 10/10 constant pain with associated symptoms of diarrhea and fever. Patient denies chest pain, palpitations, nausea, vomiting and chills. PMHx: HTN, CAD, CHF, Afib, COPD, ARLENE, Herniated discs L-spine, Bipolar/ Depression, Asthma, hx of splenic infarct (As per chart review) PSHx: Appendectomy (2008), Coronary stents x4 ([id number]) (As per chart review) FHx: Denies (As per chart review) Medications: Diltiazem, ASA, Carvedilol, digoxin, enalapril, HCTZ, Lasix, Albuterol, Prozac, Simvastatin, Montelukast, Xanax, Gabapentin, hydralazine (as per chart review) Allergies:Apixaban, clopidogrel, enoxaparin, Morphine Social history: Former smoker ( nioctine patch) Medications given in the ED: Cipro 400mg IV, Flagyl 500mg IV, Ativan 1mg IVP, Percocet 1 tab, Benadryl 25mg PO Present on Admission - Present on Admission Any Indicators Present on Admission: No Review of Systems - Constitutional Constitutional: Fever. absent: Chills, Night Sweats - EENT Eyes: absent: Blurred Vision Ears: Dizziness - Cardiovascular Cardiovascular: absent: Chest Pain, Diaphoresis, Dyspnea, Palpitations, Syncope - Respiratory Respiratory: absent: Dyspnea - Gastrointestinal Gastrointestinal: Abdominal Pain, Diarrhea. absent: Nausea, Vomiting - Neurological Neurological: Dizziness, Weakness - Psychiatric Psychiatric: Anxiety - Endocrine Endocrine: absent: Fatigue, Palpitations Past Patient History - Infectious Disease Hx of Infectious Diseases: None - Tetanus Immunizations Tetanus Immunization: Up to Date - Past Medical History & Family History Past Medical History?: Yes - Past Social History Smoking Status: Heavy Smoker > 10 Cigarettes Daily - CARDIAC Hx Atrial Fibrillation: Yes Hx Cardia Arrhythmia: Yes Hx Congestive Heart Failure: Yes Hx Hypercholesterolemia: Yes Hx Hypertension: Yes Hx Peripheral Edema: Yes - PULMONARY Hx Asthma: Yes Hx Chronic Obstructive Pulmonary Disease (COPD): Yes Hx Emphysema: Yes Hx Sleep Apnea: Yes - NEUROLOGICAL Hx Neurological Disorder: No - HEENT Hx HEENT Problems: No - RENAL Hx Chronic Kidney Disease: No - ENDOCRINE/METABOLIC Hx Endocrine Disorders: No - HEMATOLOGICAL/ONCOLOGICAL Hx Blood Disorders: Yes Other/Comment: MRSA Hx - INTEGUMENTARY Hx Dermatological Problems: Yes - MUSCULOSKELETAL/RHEUMATOLOGICAL Hx Arthritis: Yes - GASTROINTESTINAL Hx Gastrointestinal Disorders: Yes Other/Comment: Splenic Hematoma - GENITOURINARY/GYNECOLOGICAL Hx Genitourinary Disorders: No - PSYCHIATRIC Hx Anxiety: Yes Hx Bipolar Disorder: Yes Hx Depression: Yes Hx Substance Use: Yes (cocaine) - SURGICAL HISTORY Hx Appendectomy: Yes (2008) Hx Coronary Stent: Yes (2008 - 2012 4 stents) - ANESTHESIA Hx Anesthesia: Yes Hx Anesthesia Reactions: No Hx Malignant Hyperthermia: No Meds Allergies/Adverse Reactions: Allergies Allergy/AdvReac Type Severity Reaction Status Date / Time apixaban [From Eliquis] Allergy RASH Verified 08/03/17 19:27 clopidogrel bisulfate Allergy RASH Verified 08/03/17 19:27 [From Plavix] enoxaparin sodium Allergy RASH Verified 08/03/17 19:27 [From Lovenox] morphine Allergy RASH Verified 08/03/17 19:27 Physical Exam - Constitutional Appears: No Acute Distress - Head Exam Head Exam: ATRAUMATIC - Eye Exam Eye Exam: EOMI, Normal appearance - Respiratory Exam Respiratory Exam: Clear to Auscultation Bilateral, NORMAL BREATHING PATTERN - Cardiovascular Exam Cardiovascular Exam: Irregular Rhythm, +S1, +S2 - GI/Abdominal Exam GI & Abdominal Exam: Normal Bowel Sounds, Soft, Tenderness Additional comments: LLQ and LUQ abdominal pain - Extremities Exam Extremities exam: Positive for: pedal edema. Negative for: calf tenderness - Neurological Exam Neurological exam: Alert - Psychiatric Exam Psychiatric exam: Agitated, Anxious - Skin Skin Exam: Normal Color, Warm Results - Vital Signs Recent Vital Signs: Last Vital Signs Temp 97.6 F 08/04/17 02:22 Pulse 86 08/04/17 02:22 Resp 18 08/04/17 02:22 BP 113/75 08/04/17 02:22 Pulse Ox 96 08/04/17 02:22 - Labs Result Diagrams: 08/03/17 20:12 08/03/17 20:12 Assessment & Plan (1) Left sided abdominal pain Assessment and Plan: ID consult, Dr. Sorenson---> help appreciated On admission: * Afebrile, with leuckocytosis: WBC: 17.2 Imaging: CT abdomen and pelvis: Redemonstration of a focus of fluid attenuation and air within the left paracolic gutter , extending to the left lateral wall of the abdomen. Decrease in the subcapsular air along the lateral margin of the spleen. Medications: * Cipro 400mg IV Q12H * Flagyl 500mg IV Q8H * NS @ 80MLS/HR Status: Acute (2) Leukocytosis Assessment and Plan: leuckocytosis: * WBC: 17.2 * Neutrophils: 88% Medications: * Cipro 400mg IV Q12H * Flagyl 500mg IV Q8H * NS @ 80MLS/HR Continue to monitor with AM LABS Status: Acute (3) Hypertension Assessment and Plan: Continue home medications: * Vasotec 10mg PO daily * HCTZ 50mg PO daily * Aldactone 25mg PO daily * Lasix 40mg PO daily Status: Chronic (4) History of atrial fibrillation Assessment and Plan: Continue home medications: * Cardizem 30mg PO QID * Digoxin 0.125mg PO daily * Amiodarone 200mg PO daily * Continue to monitor with telemetry Status: Acute (5) History of CHF (congestive heart failure) Assessment and Plan: ECHO (02/2017): LV systolic function severely reduced. LV mildly dilated. Severe global hypokinesis of LV. Negative for endocarditis. Continue home medications: * Lasix 40mg PO daily * HCTZ 50mg PO daily * Aldactone 25mg PO daily * Fluid restriction, daily weight. Status: Acute (6) History of coronary artery disease Assessment and Plan: Continue home medications: * Aspirin 81mg PO daily * Crestor 2.5mg PO daily Status: Acute (7) History of COPD Assessment and Plan: Continue home medications: * Ventolin 2 PUFF BID * Singulair 10 mg PO HS Status: Acute (8) Anxiety and depression Assessment and Plan: * Prozac 40mg po daily * Ativan 1mg po Q6H PRN Status: Acute (9) Tobacco use disorder Assessment and Plan: Encourage smoking cessation Nicotine patch Status: Acute (10) Prophylactic measure Assessment and Plan: SCDs contraindicated due to b/l LE edema Heparin 5,000 units SC q8h Protonix 40mg PO daily Heart healthy diet All medical management as per Dr. Ocampo Status: Acute
[2017-08-04] MEDS ORDERED: Home Med 1 UNIT (Oxycodone Hcl/Acetaminophen [Percocet 10-325 Mg Tablet] 1 EACH) PO PRN (05:36)
[2017-08-04] MEDS: metroNIDAZOLE IV 500 mg/100 ml 500 MG/100 ML BAG IVPB SCH ×3 (06:14→15:43)
--- NOTE | 2017-08-04 06:14 | RAD ---
PROCEDURE: CHEST RADIOGRAPH, 1 VIEW HISTORY: Left upper quadrant abdominal pain COMPARISON: 07/22/2017 FINDINGS: LUNGS: Moderate venous congestion with diffuse increased interstitial lung markings. Linear atelectatic changes at the left lung apex and right mid lung zone. More patchy increased markings at the left lung base with the left costophrenic angle partially excluded from this study. PLEURA: As above. CARDIOVASCULAR: Cardiomegaly. OSSEOUS STRUCTURES: Bony hypertrophy at the left distal clavicle. VISUALIZED UPPER ABDOMEN: Normal. OTHER FINDINGS: None. IMPRESSION: Moderate venous congestion with diffuse increased interstitial lung markings. Linear atelectatic changes at the left lung apex and right mid lung zone. More patchy increased markings at the left lung base with the left costophrenic angle partially excluded from this study.
[2017-08-04] MEDS: Pantoprazole 40 mg EC Tab PO SCH ×2 (07:14→10:25)
[2017-08-04] MEDS ORDERED: Albuterol HFA 90 mcg/actuation (8 g) IH SCH (10:00)
[2017-08-04] MEDS ORDERED: Home Med 1 UNIT (Budesonide/Formoterol Fumarate [Symbicort 160-4.5 Mcg Inhaler] 1 AER) IH SCH (10:00)
[2017-08-04] MEDS: Aspirin 325 mg EC Tablets PO SCH (10:25)
[2017-08-04] MEDS: Oxycodone/Acetaminophen 5/325 mg Tab PO PRN ×3 (10:38→23:46)
[2017-08-04] MEDS: Digoxin 125 mcg (0.125 mg) Tab PO SCH (10:56)
--- NOTE | 2017-08-04 11:24 | CP.PCM.PN ---
<Xochilt Peterson - Last Filed: 08/04/17 12:55> Subjective - Date & Time of Evaluation Date of Evaluation: 08/04/17 Time of Evaluation: 07:00 - Subjective Subjective: PGY1 Medicine Note- Dr. Ocampo's Service Patient seen and examined at bedside and in no acute distress. Patient is very agitated and aggravated. Patient is having left sided abdominal pain. Patient denies shortness of breath, chest pain, n/v, c/d. Objective - Vital Signs/Intake and Output Vital Signs (last 24 hours): Temp Pulse Resp BP Pulse Ox 97.5 F L 88 22 107/68 93 L 08/04/17 08:43 08/04/17 10:39 08/04/17 10:39 08/04/17 10:39 08/04/17 10:39 - Medications Medications: Current Medications Albuterol (Ventolin Hfa 90 Mcg/Actuation (8 G)) 2 puff IH BID [facility] Alprazolam (Xanax) 1 mg PO Q6H [facility] Last Admin: 08/04/17 10:25 Dose: 1 mg Amiodarone HCl (Cordarone) 200 mg PO DAILY [facility] Last Admin: 08/04/17 10:57 Dose: Not Given Aspirin (Ecotrin) 325 mg PO DAILY [facility] Last Admin: 08/04/17 10:25 Dose: 325 mg Digoxin (Lanoxin) 0.125 mg PO DAILY [facility] Last Admin: 08/04/17 10:56 Dose: 0.125 mg Diltiazem HCl (Cardizem) 30 mg PO QID [facility] Last Admin: 08/04/17 10:57 Dose: Not Given Diphenhydramine HCl (Benadryl) 25 mg PO Q6 PRN PRN Reason: Itching / Pruritus Last Admin: 08/04/17 10:56 Dose: 25 mg Enalapril Maleate (Vasotec) 10 mg PO DAILY [facility] Last Admin: 08/04/17 10:33 Dose: Not Given Fluoxetine HCl (Prozac) 40 mg PO DAILY [facility] Last Admin: 08/04/17 10:25 Dose: 40 mg Furosemide (Lasix) 40 mg PO DAILY [facility] Last Admin: 08/04/17 10:33 Dose: Not Given Gabapentin (Neurontin) 300 mg PO TID [facility] Last Admin: 08/04/17 10:25 Dose: 300 mg Heparin Sodium (Porcine) (Heparin) 5,000 units SC Q8 [facility] Last Admin: 08/04/17 06:14 Dose: Not Given Home Med (Budesonide/Formoterol Fumarate [Symbicort 160-4.5 Mcg Inhaler]) 1 aer IH BID [facility] Hydrochlorothiazide (Hydrodiuril) 50 mg PO DAILY [facility] Last Admin: 08/04/17 10:25 Dose: 50 mg Hydromorphone HCl (Dilaudid) 1 mg IVP Q3H PRN PRN Reason: Pain, severe (8-10) Last Admin: 08/04/17 10:24 Dose: 1 mg Metronidazole (Flagyl) 500 mg in 100 mls @ 100 mls/hr IVPB Q8 [facility] Last Admin: 08/04/17 06:42 Dose: Not Given Ciprofloxacin (Cipro 400mg/200ml Dsw) 400 mg in 200 mls @ 133 mls/hr IVPB Q12H [facility] Sodium Chloride (Sodium Chloride 0.9%) 1,000 mls @ 80 mls/hr IV .[id number] [facility] Last Admin: 08/04/17 01:29 Dose: 80 mls/hr Montelukast Sodium (Singulair) 10 mg PO HS [facility] Nicotine (Nicoderm Cq) 1 patch TD DAILY [facility] Last Admin: 08/04/17 10:24 Dose: 1 patch Oxycodone/Acetaminophen (Percocet 5/325 Mg Tab) 2 tab PO Q6H PRN PRN Reason: Pain, moderate (4-7) Stop: 08/07/17 09:33 Last Admin: 08/04/17 10:38 Dose: 2 tab Pantoprazole Sodium (Protonix Ec Tab) 40 mg PO DAILY [facility] Last Admin: 08/04/17 10:25 Dose: 40 mg Rosuvastatin Calcium (Crestor) 2.5 mg PO [facility] Spironolactone (Aldactone) 25 mg PO DAILY [facility] Last Admin: 08/04/17 10:57 Dose: 25 mg - Labs Labs: PT 17.7 SECONDS (9.7-12.2) H 08/03/17 20:12 INR 1.6 08/03/17 20:12 APTT 36 SECONDS (21-34) H 08/03/17 20:12 - Constitutional Appears: Non-toxic, Unkempt, Agitated - Head Exam Head Exam: ATRAUMATIC, NORMAL INSPECTION, NORMOCEPHALIC - Eye Exam Eye Exam: EOMI, Normal appearance - ENT Exam ENT Exam: Mucous Membranes Moist - Neck Exam Neck Exam: Full ROM. absent: Tenderness - Respiratory Exam Respiratory Exam: Clear to Ausculation Bilateral, NORMAL BREATHING PATTERN - Cardiovascular Exam Cardiovascular Exam: Irregular Rhythm. absent: Gallop, Rubs, Murmur - GI/Abdominal Exam GI & Abdominal Exam: Distended, Guarding, Tenderness, Normal Bowel Sounds - Extremities Exam Additional comments: right knee wound covered in clean, dry, intact dressing b/l LE erythema - Neurological Exam Neurological Exam: Alert, Awake, Oriented x3 - Psychiatric Exam Psychiatric exam: Agitated, Anxious - Skin Skin Exam: Erythema, Intact, Warm Assessment and Plan - Assessment and Plan (Free Text) Assessment: (1) Left sided abdominal pain Assessment and Plan: ID consult, Dr. Sorenson---> help appreciated On admission: * Afebrile, with leuckocytosis: WBC: 17.2 Imaging: CT abdomen and pelvis: Redemonstration of a focus of fluid attenuation and air within the left paracolic gutter , extending to the left lateral wall of the abdomen. Decrease in the subcapsular air along the lateral margin of the spleen. Medications: * Cipro 400mg IV Q12H * Flagyl 500mg IV Q8H * NS @ 80MLS/HR * Dilaudid 1 mg ivp q3h prn * percoset for breakthrough pain Status: Acute (2) Leukocytosis Assessment and Plan: leuckocytosis: * WBC: 17.2 * Neutrophils: 88% Medications: * Cipro 400mg IV Q12H * Flagyl 500mg IV Q8H * NS @ 80MLS/HR Continue to monitor with AM LABS Status: Acute (3) Hypertension Assessment and Plan: Continue home medications: * Vasotec 10mg PO daily * HCTZ 50mg PO daily * Aldactone 25mg PO daily * Lasix 40mg PO daily Status: Chronic (4) History of atrial fibrillation Assessment and Plan: Continue home medications: * Cardizem 30mg PO QID * Digoxin 0.125mg PO daily * Amiodarone 200mg PO daily * Continue to monitor with telemetry Status: Acute (5) History of CHF (congestive heart failure) Assessment and Plan: ECHO (02/2017): LV systolic function severely reduced. LV mildly dilated. Severe global hypokinesis of LV. Negative for endocarditis. Continue home medications: * Lasix 40mg PO daily * HCTZ 50mg PO daily * Aldactone 25mg PO daily * Fluid restriction, daily weight. Status: Acute (6) History of coronary artery disease Assessment and Plan: Continue home medications: * Aspirin 81mg PO daily * Crestor 2.5mg PO daily Status: Acute (7) History of COPD Assessment and Plan: Continue home medications: * Ventolin 2 PUFF BID * Singulair 10 mg PO HS Status: Acute (8) Anxiety and depression Assessment and Plan: * Prozac 40mg po daily * Xanax 1mg po Q6H (ativan stopped) Status: Acute (9) Tobacco use disorder Assessment and Plan: Encourage smoking cessation Nicotine patch Status: Acute (10) Prophylactic measure Assessment and Plan: SCDs contraindicated due to b/l LE edema Heparin 5,000 units SC q8h Protonix 40mg ivp daily Regular diet All medical management as per Dr. Ocampo Status: Acute <Roque Ocampo Jr. - Last Filed: 08/08/17 10:39> Objective - Vital Signs/Intake and Output Vital Signs (last 24 hours): Temp Pulse Resp BP Pulse Ox 97.4 F L 107 H 22 145/81 93 L 08/06/17 08:00 08/06/17 09:55 08/06/17 09:55 08/06/17 09:55 08/06/17 09:55 - Labs Labs: 08/05/17 07:32 08/05/17 07:32 PT 17.7 SECONDS (9.7-12.2) H 08/03/17 20:12 INR 1.6 08/03/17 20:12 APTT 36 SECONDS (21-34) H 08/03/17 20:12 Attending/Attestation - Attestation I have personally seen and examined this patient.: Yes I have fully participated in the care of the patient.: Yes I have reviewed all pertinent clinical information, including history, physical exam and plan: Yes Notes (Text): 08/08/17 10:39 Agree with resident note and plan of care
[2017-08-04] MEDS: Ciprofloxacin 400mg/200ml D5W 400 MG/200 ML BAG IVPB SCH (13:20)
[2017-08-04] MEDS: Bacitracin/Neomycin/Polymyxin Oint(30GM) TOP SCH (17:23)
--- NOTE | 2017-08-04 17:50 | CP.PCM.CON ---
History of Present Illness - History of Present Illness History of Present Illness: Gen Sx: Dr Senior Pt S&E with Dr Senior. Imaging reviewed. Splenic abscess significantly improved in comparison to previous CT. No intervention planned Re-consult as necessary -Joseph PGY3 Past Patient History - Infectious Disease Hx of Infectious Diseases: None - Tetanus Immunizations Tetanus Immunization: Up to Date - Past Medical History & Family History Past Medical History?: Yes - Past Social History Smoking Status: Heavy Smoker > 10 Cigarettes Daily - CARDIAC Hx Atrial Fibrillation: Yes Hx Cardia Arrhythmia: Yes Hx Congestive Heart Failure: Yes Hx Hypercholesterolemia: Yes Hx Hypertension: Yes Hx Peripheral Edema: Yes - PULMONARY Hx Asthma: Yes Hx Chronic Obstructive Pulmonary Disease (COPD): Yes Hx Emphysema: Yes Hx Sleep Apnea: Yes - NEUROLOGICAL Hx Neurological Disorder: No - HEENT Hx HEENT Problems: No - RENAL Hx Chronic Kidney Disease: No - ENDOCRINE/METABOLIC Hx Endocrine Disorders: No - HEMATOLOGICAL/ONCOLOGICAL Hx Blood Disorders: Yes Other/Comment: MRSA Hx - INTEGUMENTARY Hx Dermatological Problems: Yes - MUSCULOSKELETAL/RHEUMATOLOGICAL Hx Arthritis: Yes - GASTROINTESTINAL Hx Gastrointestinal Disorders: Yes Other/Comment: Splenic Hematoma - GENITOURINARY/GYNECOLOGICAL Hx Genitourinary Disorders: No - PSYCHIATRIC Hx Anxiety: Yes Hx Bipolar Disorder: Yes Hx Depression: Yes Hx Substance Use: Yes (cocaine) - SURGICAL HISTORY Hx Appendectomy: Yes (2008) Hx Coronary Stent: Yes (2008 - 2012 4 stents) - ANESTHESIA Hx Anesthesia: Yes Hx Anesthesia Reactions: No Hx Malignant Hyperthermia: No Meds Allergies/Adverse Reactions: Allergies Allergy/AdvReac Type Severity Reaction Status Date / Time apixaban [From Eliquis] Allergy RASH Verified 08/03/17 19:27 clopidogrel bisulfate Allergy RASH Verified 08/03/17 19:27 [From Plavix] enoxaparin sodium Allergy RASH Verified 08/03/17 19:27 [From Lovenox] morphine Allergy RASH Verified 08/03/17 19:27 - Medications Medications: Current Medications Albuterol (Ventolin Hfa 90 Mcg/Actuation (8 G)) 2 puff IH RBID [facility] Alprazolam (Xanax) 1 mg PO Q6H [facility] Last Admin: 08/04/17 15:03 Dose: 1 mg Amiodarone HCl (Cordarone) 200 mg PO DAILY [facility] Last Admin: 08/04/17 10:57 Dose: Not Given Aspirin (Ecotrin) 325 mg PO DAILY [facility] Last Admin: 08/04/17 10:25 Dose: 325 mg Digoxin (Lanoxin) 0.125 mg PO DAILY [facility] Last Admin: 08/04/17 10:56 Dose: 0.125 mg Diltiazem HCl (Cardizem) 30 mg PO QID [facility] Last Admin: 08/04/17 17:23 Dose: 30 mg Diphenhydramine HCl (Benadryl) 25 mg PO Q6 PRN PRN Reason: Itching / Pruritus Last Admin: 08/04/17 16:39 Dose: 25 mg Enalapril Maleate (Vasotec) 10 mg PO DAILY [facility] Last Admin: 08/04/17 10:33 Dose: Not Given Fluoxetine HCl (Prozac) 40 mg PO DAILY [facility] Last Admin: 08/04/17 10:25 Dose: 40 mg Furosemide (Lasix) 40 mg IVP DAILY [facility] Gabapentin (Neurontin) 300 mg PO TID [facility] Last Admin: 08/04/17 17:23 Dose: 300 mg Heparin Sodium (Porcine) (Heparin) 5,000 units SC Q8 [facility] Last Admin: 08/04/17 15:00 Dose: Not Given Home Med (Budesonide/Formoterol Fumarate [Symbicort 160-4.5 Mcg Inhaler]) 1 aer IH BID [facility] Hydrochlorothiazide (Hydrodiuril) 50 mg PO DAILY [facility] Last Admin: 08/04/17 10:25 Dose: 50 mg Hydromorphone HCl (Dilaudid) 1 mg IVP Q3H PRN PRN Reason: Pain, severe (8-10) Last Admin: 08/04/17 16:37 Dose: 1 mg Ciprofloxacin (Cipro 400mg/200ml Dsw) 400 mg in 200 mls @ 133 mls/hr IVPB Q12H [facility] Last Admin: 08/04/17 13:20 Dose: 133 mls/hr Sodium Chloride (Sodium Chloride 0.9%) 1,000 mls @ 80 mls/hr IV .[id number] [facility] Last Admin: 08/04/17 15:00 Dose: Not Given Metronidazole (Flagyl) 500 mg in 100 mls @ 100 mls/hr IVPB Q8H [facility] Last Admin: 08/04/17 15:43 Dose: 100 mls/hr Montelukast Sodium (Singulair) 10 mg PO HS [facility] Neomycin/Polymyxin/Bacitracin (Neosporin Triple Antibiotic Oint) 0 gm TOP BID [facility] Last Admin: 08/04/17 17:23 Dose: 1 appl Nicotine (Nicoderm Cq) 1 patch TD DAILY [facility] Last Admin: 08/04/17 10:24 Dose: 1 patch Ondansetron HCl (Zofran Inj) 4 mg IVP Q6H PRN PRN Reason: Nausea/Vomiting Oxycodone/Acetaminophen (Percocet 5/325 Mg Tab) 2 tab PO Q6H PRN PRN Reason: Pain, moderate (4-7) Stop: 08/07/17 09:33 Last Admin: 08/04/17 16:36 Dose: 2 tab Pantoprazole Sodium (Protonix Inj) 40 mg IVP DAILY [facility] Rosuvastatin Calcium (Crestor) 2.5 mg PO HS [facility] Spironolactone (Aldactone) 25 mg PO DAILY [facility] Last Admin: 08/04/17 10:57 Dose: 25 mg Results - Vital Signs Recent Vital Signs: Last Vital Signs Temp 97.8 F 08/04/17 15:00 Pulse 74 08/04/17 16:39 Resp 20 08/04/17 15:00 BP 137/88 08/04/17 16:39 Pulse Ox 93 L 08/04/17 13:25 - Labs Result Diagrams: 08/03/17 20:12 08/03/17 20:12
[2017-08-04] MEDS: Albuterol HFA 90 mcg/actuation (8 g) IH SCH (20:23)
[2017-08-04] MEDS: Rosuvastatin Calcium 2.5 mg Tab PO SCH (21:18)
[2017-08-04] MEDS ORDERED: Albuterol-Ipratrop 3 mg / 0.5 (3 ml) UD INH STA (23:10)
[2017-08-05] MEDS: metroNIDAZOLE IV 500 mg/100 ml 500 MG/100 ML BAG IVPB SCH ×3 (00:06→16:07)
[2017-08-05] MEDS: Ciprofloxacin 400mg/200ml D5W 400 MG/200 ML BAG IVPB SCH ×2 (00:07→14:16)
--- NOTE | 2017-08-05 00:18 | CARD ---
APPROVED REPORT EKG Measurement Heart [id number] <Conclusion> Atrial fibrillation Pulmonary disease pattern Right bundle branch block Left anterior fascicular block Bifascicular block Inferior infarct, age undetermined T wave abnormality, consider lateral ischemia Abnormal ECG
[2017-08-05] MEDS ORDERED: Albuterol-Ipratrop 3 mg / 0.5 (3 ml) UD INH STA (00:29)
[2017-08-05] MEDS: Sodium Chloride 0.9% 1,000 ML IV SCH (02:45)
[2017-08-05] MEDS: Oxycodone/Acetaminophen 5/325 mg Tab PO PRN ×3 (05:52→20:11)
[2017-08-05] MEDS: Albuterol HFA 90 mcg/actuation (8 g) IH SCH (08:00)
[2017-08-05 08:15] LABS: BASO # 0.1 K/uL (0.0-0.2); BASO % 0.7 % (0.0-2.0); CHLORIDE 99 mmol/L (98-107); EOS # 0.4 K/uL (0.0-0.7); EOS % 3.7 % (0.0-4.0); HEMATOCRIT 39.7 % (35.0-51.0); LYMPH # 1.6 K/uL (1.0-4.3); LYMPH % 14.1 % (20.0-40.0); MEAN CORPUSCULAR HEMOGLOBIN 23.4 pg (27.0-31.0); MEAN CORPUSCULAR HGB CONC 30.8 g/dL (33.0-37.0); MEAN PLATELET VOLUME 8.4 fL (7.2-11.7); MONO # 1.4 K/uL (0.0-0.8); MONO % 12.1 % (0.0-10.0); NRBC % 0.1 % (0.0-2.0); RED CELL DISTRIBUTION WIDTH 18.7 % (11.5-14.5); SODIUM 135 mmol/L (132-148); WHITE BLOOD COUNT 11.7 K/uL (4.8-10.8)
[2017-08-05 08:16] LABS: POTASSIUM 4.1 mmol/L (3.6-5.2)
[2017-08-05 08:18] LABS: ALB/GLOB RATIO 0.9 (1.0-2.1); ALKALINE PHOSPHATASE 63 U/L (38-126); AST/SGOT 23 U/L (17-59); BILIRUBIN,TOTAL 0.7 mg/dL (0.2-1.3); BLOOD UREA NITROGEN 24 mg/dL (9-20); CARBON DIOXIDE 23 mmol/L (22-30); GFR AFRICAN-AMERICAN > 60; GLUCOSE,RANDOM 133 mg/dL (75-110); PHOSPHOROUS 4.1 mg/dL (2.5-4.5); TOTAL PROTEIN 7.5 g/dL (6.3-8.3)
[2017-08-05 08:19] LABS: ALT/SGPT 23 U/L (21-72); CALCIUM 8.4 mg/dl (8.6-10.4); MAGNESIUM 1.7 mg/dL (1.6-2.3)
[2017-08-05] MEDS: Digoxin 125 mcg (0.125 mg) Tab PO SCH (09:10)
[2017-08-05] MEDS: Aspirin 325 mg EC Tablets PO SCH (09:11)
[2017-08-05 09:12] VITALS: PULSE 82
--- NOTE | 2017-08-05 09:38 | CP.PCM.PN ---
<Xochilt Peterson - Last Filed: 08/05/17 18:35> Subjective - Date & Time of Evaluation Date of Evaluation: 08/05/17 Time of Evaluation: 07:00 - Subjective Subjective: PGY1- Medicine Note- Dr. Ocampo's Service Patient is seen and examined sitting in chair next to bedside in no acute distress. Patient explains that he has a lot of abdominal pain and anxiety which is alleviated at home with his cocaine use. Patient says he wants to be on a higher dosage of xanax, but that his psychiatrist would not increase the dose. Patient says his abdominal pain is very strong but otherwise he is feeling okay. He has no shortness of breath, chest pain, n/v, c/d. Patient had a code star today. Patient sat too close to edge of chair and chair flipped over and he fell on left knee and buttocks. Patient did not hit his head and denies LOC. Patient admits to abdominal pain which has been present since admission. Patient's vitals stable. Objective - Vital Signs/Intake and Output Vital Signs (last 24 hours): Temp Pulse Resp BP Pulse Ox 97.5 F L 70 20 131/70 97 08/05/17 08:30 08/05/17 08:30 08/05/17 08:30 08/05/17 09:11 08/05/17 08:30 - Medications Medications: Current Medications Albuterol (Ventolin Hfa 90 Mcg/Actuation (8 G)) 2 puff IH RBID [facility] Last Admin: 08/04/17 20:23 Dose: Not Given Alprazolam (Xanax) 1 mg PO Q6H [facility] Last Admin: 08/05/17 09:11 Dose: 1 mg Amiodarone HCl (Cordarone) 200 mg PO DAILY [facility] Last Admin: 08/05/17 09:10 Dose: 200 mg Aspirin (Ecotrin) 325 mg PO DAILY [facility] Last Admin: 08/05/17 09:11 Dose: 325 mg Digoxin (Lanoxin) 0.125 mg PO DAILY [facility] Last Admin: 08/05/17 09:10 Dose: 0.125 mg Diltiazem HCl (Cardizem) 30 mg PO QID [facility] Last Admin: 08/05/17 09:10 Dose: 30 mg Diphenhydramine HCl (Benadryl) 25 mg PO Q6 PRN PRN Reason: Itching / Pruritus Last Admin: 08/05/17 05:51 Dose: 25 mg Enalapril Maleate (Vasotec) 10 mg PO DAILY [facility] Last Admin: 08/05/17 09:11 Dose: 10 mg Fluoxetine HCl (Prozac) 40 mg PO DAILY [facility] Last Admin: 08/05/17 09:10 Dose: 40 mg Furosemide (Lasix) 40 mg IVP DAILY [facility] Last Admin: 08/05/17 09:06 Dose: 40 mg Gabapentin (Neurontin) 300 mg PO TID [facility] Last Admin: 08/05/17 09:10 Dose: 300 mg Heparin Sodium (Porcine) (Heparin) 5,000 units SC Q8 [facility] Last Admin: 08/04/17 21:48 Dose: Not Given Home Med (Budesonide/Formoterol Fumarate [Symbicort 160-4.5 Mcg Inhaler]) 1 aer IH BID [facility] Hydrochlorothiazide (Hydrodiuril) 50 mg PO DAILY [facility] Last Admin: 08/05/17 09:11 Dose: 50 mg Hydromorphone HCl (Dilaudid) 1 mg IVP Q3H PRN PRN Reason: Pain, severe (8-10) Last Admin: 08/05/17 07:52 Dose: 1 mg Ciprofloxacin (Cipro 400mg/200ml Dsw) 400 mg in 200 mls @ 133 mls/hr IVPB Q12H [facility] Last Admin: 08/05/17 00:07 Dose: 133 mls/hr Sodium Chloride (Sodium Chloride 0.9%) 1,000 mls @ 80 mls/hr IV .[id number] [facility] Last Admin: 08/05/17 02:45 Dose: Not Given Metronidazole (Flagyl) 500 mg in 100 mls @ 100 mls/hr IVPB Q8H [facility] Last Admin: 08/05/17 07:56 Dose: 100 mls/hr Montelukast Sodium (Singulair) 10 mg PO [facility] Last Admin: 08/04/17 21:18 Dose: 10 mg Neomycin/Polymyxin/Bacitracin (Neosporin Triple Antibiotic Oint) 0 gm TOP BID [facility] Last Admin: 08/04/17 17:23 Dose: 1 appl Nicotine (Nicoderm Cq) 1 patch TD DAILY [facility] Last Admin: 08/05/17 09:11 Dose: 1 patch Ondansetron HCl (Zofran Inj) 4 mg IVP Q6H PRN PRN Reason: Nausea/Vomiting Last Admin: 08/04/17 21:28 Dose: 4 mg Oxycodone/Acetaminophen (Percocet 5/325 Mg Tab) 2 tab PO Q6H PRN PRN Reason: Pain, moderate (4-7) Stop: 08/07/17 09:33 Last Admin: 08/05/17 05:52 Dose: 2 tab Pantoprazole Sodium (Protonix Inj) 40 mg IVP DAILY [facility] Last Admin: 08/05/17 09:11 Dose: 40 mg Rosuvastatin Calcium (Crestor) 2.5 mg PO HS [facility] Last Admin: 08/04/17 21:18 Dose: 2.5 mg Spironolactone (Aldactone) 25 mg PO DAILY [facility] Last Admin: 08/05/17 09:10 Dose: 25 mg - Labs Labs: 08/05/17 07:32 08/05/17 07:32 PT 17.7 SECONDS (9.7-12.2) H 08/03/17 20:12 INR 1.6 08/03/17 20:12 APTT 36 SECONDS (21-34) H 08/03/17 20:12 - Constitutional Appears: Non-toxic, No Acute Distress - Head Exam Head Exam: ATRAUMATIC, NORMAL INSPECTION, NORMOCEPHALIC - Eye Exam Eye Exam: EOMI, Normal appearance - ENT Exam ENT Exam: Mucous Membranes Moist - Neck Exam Neck Exam: Full ROM. absent: Lymphadenopathy, Tenderness - Respiratory Exam Respiratory Exam: Clear to Ausculation Bilateral, NORMAL BREATHING PATTERN. absent: Rales, Rhonchi, Wheezes, Respiratory Distress, Stridor - Cardiovascular Exam Cardiovascular Exam: Irregular Rhythm - GI/Abdominal Exam GI & Abdominal Exam: Soft, Normal Bowel Sounds - Extremities Exam Extremities Exam: Full ROM Additional comments: lower extremity erythema and edema right knee wound covered with dry, clean, intact dressing - Neurological Exam Neurological Exam: Alert, Awake, Oriented x3 - Psychiatric Exam Psychiatric exam: Agitated, Normal Affect - Skin Skin Exam: Erythema, Intact, Warm Assessment and Plan - Assessment and Plan (Free Text) Assessment: (1) Left sided abdominal pain Assessment and Plan: Assessment and Plan: ID consult, Dr. Sorenson---> help appreciated On admission: * Afebrile, with leuckocytosis: WBC: 17.2 CT abdomen and pelvis: Redemonstration of a focus of fluid attenuation and air within the left paracolic gutter , extending to the left lateral wall of the abdomen. Decrease in the subcapsular air along the lateral margin of the spleen. Dr. Senior consulted, help appreciated. As per Dr. Senior, splenic abscess significantly improved in comparison to previous CT. No intervention planned. * Cipro 400mg IV Q12H * Flagyl 500mg IV Q8H * NS @ 80MLS/HR * Dilaudid 1 mg ivp q3h prn * percoset for breakthrough pain Status: Acute (2) Leukocytosis Assessment and Plan: leuckocytosis: * WBC: decreased to 11.7 on 08/05, 17.2 on 08/03 * Cipro 400mg IV Q12H * Flagyl 500mg IV Q8H * NS @ 80MLS/HR Continue to monitor with AM LABS Status: Acute (3) Hypertension Assessment and Plan: Continue home medications: * Vasotec 10mg PO daily * HCTZ 50mg PO daily * Aldactone 25mg PO daily * Lasix 40mg PO daily Status: Chronic (4) History of atrial fibrillation Assessment and Plan: Continue home medications: * Cardizem 30mg PO QID * Digoxin 0.125mg PO daily * Amiodarone 200mg PO daily * Continue to monitor with telemetry Status: Acute (5) History of CHF (congestive heart failure) Assessment and Plan: ECHO (02/2017): LV systolic function severely reduced. LV mildly dilated. Severe global hypokinesis of LV. Negative for endocarditis. Continue home medications: * Lasix 40mg PO daily * HCTZ 50mg PO daily * Aldactone 25mg PO daily * Fluid restriction, daily weight. Status: Acute (6) History of coronary artery disease Assessment and Plan: Continue home medications: * Aspirin 81mg PO daily * Crestor 2.5mg PO daily Status: Acute (7) History of COPD Assessment and Plan: Continue home medications: * Ventolin 2 PUFF BID * Singulair 10 mg PO HS Status: Acute (8) Anxiety and depression Assessment and Plan: * Prozac 40mg po daily * Xanax 1mg po Q6H (ativan stopped) Status: Acute (9) Tobacco use disorder Assessment and Plan: Encourage smoking cessation Nicotine patch Status: Acute (10) Prophylactic measure Assessment and Plan: SCDs contraindicated due to b/l LE edema Heparin 5,000 units SC q8h Protonix 40mg ivp daily Regular diet Status: Acute All medical management as per Dr. Ocampo <Roque Ocampo Jr. - Last Filed: 08/08/17 10:43> Objective - Vital Signs/Intake and Output Vital Signs (last 24 hours): Temp Pulse Resp BP Pulse Ox 97.4 F L 107 H 22 145/81 93 L 08/06/17 08:00 08/06/17 09:55 08/06/17 09:55 08/06/17 09:55 08/06/17 09:55 - Labs Labs: 08/05/17 07:32 08/05/17 07:32 PT 17.7 SECONDS (9.7-12.2) H 08/03/17 20:12 INR 1.6 08/03/17 20:12 APTT 36 SECONDS (21-34) H 08/03/17 20:12 Attending/Attestation - Attestation I have personally seen and examined this patient.: Yes I have fully participated in the care of the patient.: Yes I have reviewed all pertinent clinical information, including history, physical exam and plan: Yes Notes (Text): 08/08/17 10:42 Agree with resident note and plan of care
--- NOTE | 2017-08-05 15:39 | CP.PCM.PN ---
<Rosalie Robb DO - Last Filed: 08/05/17 15:37> Subjective - Date & Time of Evaluation Date of Evaluation: 08/05/17 Time of Evaluation: 15:37 - Subjective Subjective: House doctor note: code star Code star called- patient found on floor of room after unwitnessed fall. Per patient, he was sitting on edge of chair and leaned too far forward and chair tipped. Patient states he hit left thigh and his backside. Patient denies head trauma. Vitals stable on examination. Patient's only complaint is of abdominal pain, which is unchanged from admission. Patient assisted back to bed. Objective - Vital Signs/Intake and Output Vital Signs (last 24 hours): Temp Pulse Resp BP Pulse Ox 97.5 F L 70 20 131/70 97 08/05/17 08:30 08/05/17 08:30 08/05/17 08:30 08/05/17 09:11 08/05/17 08:30 - Medications Medications: Current Medications Albuterol (Ventolin Hfa 90 Mcg/Actuation (8 G)) 2 puff IH RBID [facility] Last Admin: 08/05/17 08:00 Dose: Not Given Alprazolam (Xanax) 1 mg PO Q6H [facility] Last Admin: 08/05/17 09:11 Dose: 1 mg Amiodarone HCl (Cordarone) 200 mg PO DAILY [facility] Last Admin: 08/05/17 09:10 Dose: 200 mg Aspirin (Ecotrin) 325 mg PO DAILY [facility] Last Admin: 08/05/17 09:11 Dose: 325 mg Digoxin (Lanoxin) 0.125 mg PO DAILY [facility] Last Admin: 08/05/17 09:10 Dose: 0.125 mg Diltiazem HCl (Cardizem) 30 mg PO QID [facility] Last Admin: 08/05/17 14:16 Dose: 30 mg Diphenhydramine HCl (Benadryl) 25 mg PO Q6 PRN PRN Reason: Itching / Pruritus Last Admin: 08/05/17 11:46 Dose: 25 mg Enalapril Maleate (Vasotec) 10 mg PO DAILY [facility] Last Admin: 08/05/17 09:11 Dose: 10 mg Fluoxetine HCl (Prozac) 40 mg PO DAILY [facility] Last Admin: 08/05/17 09:10 Dose: 40 mg Furosemide (Lasix) 40 mg IVP DAILY [facility] Last Admin: 08/05/17 09:06 Dose: 40 mg Gabapentin (Neurontin) 300 mg PO TID [facility] Last Admin: 08/05/17 14:16 Dose: 300 mg Heparin Sodium (Porcine) (Heparin) 5,000 units SC Q8 [facility] Last Admin: 08/04/17 21:48 Dose: Not Given Home Med (Budesonide/Formoterol Fumarate [Symbicort 160-4.5 Mcg Inhaler]) 1 aer IH BID [facility] Hydrochlorothiazide (Hydrodiuril) 50 mg PO DAILY [facility] Last Admin: 08/05/17 09:11 Dose: 50 mg Hydromorphone HCl (Dilaudid) 1 mg IVP Q3H PRN PRN Reason: Pain, severe (8-10) Last Admin: 08/05/17 15:34 Dose: 1 mg Ciprofloxacin (Cipro 400mg/200ml Dsw) 400 mg in 200 mls @ 133 mls/hr IVPB Q12H [facility] Last Admin: 08/05/17 14:16 Dose: 133 mls/hr Sodium Chloride (Sodium Chloride 0.9%) 1,000 mls @ 80 mls/hr IV .[id number] [facility] Last Admin: 08/05/17 02:45 Dose: Not Given Metronidazole (Flagyl) 500 mg in 100 mls @ 100 mls/hr IVPB Q8H [facility] Last Admin: 08/05/17 07:56 Dose: 100 mls/hr Montelukast Sodium (Singulair) 10 mg PO HS [facility] Last Admin: 08/04/17 21:18 Dose: 10 mg Neomycin/Polymyxin/Bacitracin (Neosporin Triple Antibiotic Oint) 0 gm TOP BID [facility] Last Admin: 08/04/17 17:23 Dose: 1 appl Nicotine (Nicoderm Cq) 1 patch TD DAILY [facility] Last Admin: 08/05/17 09:11 Dose: 1 patch Ondansetron HCl (Zofran Inj) 4 mg IVP Q6H PRN PRN Reason: Nausea/Vomiting Last Admin: 08/04/17 21:28 Dose: 4 mg Oxycodone/Acetaminophen (Percocet 5/325 Mg Tab) 2 tab PO Q6H PRN PRN Reason: Pain, moderate (4-7) Stop: 08/07/17 09:33 Last Admin: 08/05/17 11:46 Dose: 2 tab Pantoprazole Sodium (Protonix Inj) 40 mg IVP DAILY [facility] Last Admin: 08/05/17 09:11 Dose: 40 mg Rosuvastatin Calcium (Crestor) 2.5 mg PO HS [facility] Last Admin: 08/04/17 21:18 Dose: 2.5 mg Spironolactone (Aldactone) 25 mg PO DAILY [facility] Last Admin: 08/05/17 09:10 Dose: 25 mg - Labs Labs: 08/05/17 07:32 08/05/17 07:32 PT 17.7 SECONDS (9.7-12.2) H 08/03/17 20:12 INR 1.6 08/03/17 20:12 APTT 36 SECONDS (21-34) H 08/03/17 20:12 <Roque Ocampo Jr. - Last Filed: 08/08/17 10:41> Objective - Vital Signs/Intake and Output Vital Signs (last 24 hours): Temp Pulse Resp BP Pulse Ox 97.4 F L 107 H 22 145/81 93 L 08/06/17 08:00 08/06/17 09:55 08/06/17 09:55 08/06/17 09:55 08/06/17 09:55 - Labs Labs: 08/05/17 07:32 08/05/17 07:32 PT 17.7 SECONDS (9.7-12.2) H 08/03/17 20:12 INR 1.6 08/03/17 20:12 APTT 36 SECONDS (21-34) H 08/03/17 20:12 Attending/Attestation - Attestation I have personally seen and examined this patient.: Yes I have fully participated in the care of the patient.: Yes I have reviewed all pertinent clinical information, including history, physical exam and plan: Yes Notes (Text): 08/08/17 10:41 Agree with resident note and plan of care
[2017-08-05] MEDS: Bacitracin/Neomycin/Polymyxin Oint(30GM) TOP SCH (17:33)
[2017-08-05] MEDS: Rosuvastatin Calcium 2.5 mg Tab PO SCH ×2 (21:48→21:55)
[2017-08-06] MEDS: metroNIDAZOLE IV 500 mg/100 ml 500 MG/100 ML BAG IVPB SCH ×2 (00:12→09:11)
[2017-08-06] MEDS: Ciprofloxacin 400mg/200ml D5W 400 MG/200 ML BAG IVPB SCH (00:13)
[2017-08-06] MEDS ORDERED: Trolamine Salicylate 10% Cream (85 gm) TOP PRN (02:44)
[2017-08-06] MEDS: Albuterol-Ipratrop 3 mg / 0.5 (3 ml) UD INH PRN ×2 (03:34→08:28)
[2017-08-06] MEDS: Sodium Chloride 0.9% 1,000 ML IV SCH (03:38)
[2017-08-06] MEDS: Oxycodone/Acetaminophen 5/325 mg Tab PO PRN (04:01)
[2017-08-06] MEDS: Albuterol HFA 90 mcg/actuation (8 g) IH SCH (08:28)
[2017-08-06] MEDS: Aspirin 325 mg EC Tablets PO SCH (09:19)
[2017-08-06 09:52] VITALS: TEMP 97.4
[2017-08-06] MEDS: Digoxin 125 mcg (0.125 mg) Tab PO SCH (10:21)
[2017-08-06] MEDS: Bacitracin/Neomycin/Polymyxin Oint(30GM) TOP SCH (10:21)
[2017-08-06 10:23] VITALS: BP 145/81; PULSE 107; RESP 22; O2SAT 93
--- NOTE | 2017-08-06 14:30 | CP.PCM.DIS ---
Provider - Provider Date of Admission: 08/03/17 23:15 Attending physician: Roque Ocampo Jr, MD Primary care physician: Dr. Ocampo Consults: Dr. Senior (surgery) Time Spent in preparation of Discharge (in minutes): 45 Diagnosis - Discharge Diagnosis (1) Abdominal fluid collection Status: Acute Comment: please see summary for details (2) Anxiety Status: Chronic Comment: please see summary for details (3) History of CHF (congestive heart failure) Status: Chronic Comment: please see summary for details (4) History of coronary artery disease Status: Chronic Comment: please see summary for details (5) Afib Status: Chronic Comment: please see summary for details Hospital Course - Lab Results Lab Results: Most Recent Lab Values WBC 11.7 K/uL (4.8-10.8) H 08/05/17 07:32 RBC 5.22 Mil/uL (4.40-5.90) 08/05/17 07:32 Hgb 12.2 g/dL (12.0-18.0) 08/05/17 07:32 Hct 39.7 % (35.0-51.0) 08/05/17 07:32 MCV 76.0 fL (80.0-94.0) L 08/05/17 07:32 MCH 23.4 pg (27.0-31.0) L 08/05/17 07:32 MCHC 30.8 g/dL (33.0-37.0) L 08/05/17 07:32 RDW 18.7 % (11.5-14.5) H 08/05/17 07:32 Plt Count 272 K/uL (130-400) 08/05/17 07:32 MPV 8.4 fL (7.2-11.7) 08/05/17 07:32 Neut % (Auto) 69.4 % (50.0-75.0) 08/05/17 07:32 Lymph % (Auto) 14.1 % (20.0-40.0) L 08/05/17 07:32 [place] % (Auto) 12.1 % (0.0-10.0) H 08/05/17 07:32 Eos % (Auto) 3.7 % (0.0-4.0) 08/05/17 07:32 Baso % (Auto) 0.7 % (0.0-2.0) 08/05/17 07:32 Neut # 8.1 K/uL (1.8-7.0) H 08/05/17 07:32 Lymph # 1.6 K/uL (1.0-4.3) 08/05/17 07:32 [place] # 1.4 K/uL (0.0-0.8) H 08/05/17 07:32 Eos # 0.4 K/uL (0.0-0.7) 08/05/17 07:32 Baso # 0.1 K/uL (0.0-0.2) 08/05/17 07:32 Neutrophils % (Manual) 88 % (50-75) H 08/03/17 20:12 Lymphocytes % (Manual) 6 % (20-40) L 08/03/17 20:12 Monocytes % (Manual) 6 % (0-10) 08/03/17 20:12 Platelet Estimate Normal (NORMAL) 08/03/17 20:12 Hypochromasia (manual) Slight 08/03/17 20:12 Anisocytosis (manual) Slight 08/03/17 20:12 Microcytosis (manual) Slight 08/03/17 20:12 PT 17.7 SECONDS (9.7-12.2) H 08/03/17 20:12 INR 1.6 08/03/17 20:12 APTT 36 SECONDS (21-34) H 08/03/17 20:12 Sodium 135 mmol/L (132-148) 08/05/17 07:32 Potassium 4.1 mmol/L (3.6-5.2) 08/05/17 07:32 Chloride 99 mmol/L (98-107) 08/05/17 07:32 Carbon Dioxide 23 mmol/L (22-30) 08/05/17 07:32 Anion Gap 17 (10-20) 08/05/17 07:32 BUN 24 mg/dL (9-20) H 08/05/17 07:32 Creatinine 0.8 MG/DL (0.8-1.5) 08/05/17 07:32 Est GFR ( Amer) > 60 08/05/17 07:32 Est GFR (Non-Af Amer) > 60 08/05/17 07:32 Random Glucose 133 mg/dL (75-110) H 08/05/17 07:32 Calcium 8.4 mg/dl (8.6-10.4) L 08/05/17 07:32 Phosphorus 4.1 mg/dL (2.5-4.5) 08/05/17 07:32 Magnesium 1.7 mg/dL (1.6-2.3) 08/05/17 07:32 Total Bilirubin 0.7 mg/dL (0.2-1.3) 08/05/17 07:32 AST 23 U/L (17-59) 08/05/17 07:32 ALT 23 U/L (21-72) 08/05/17 07:32 Alkaline Phosphatase 63 U/L (38-126) 08/05/17 07:32 Total Protein 7.5 g/dL (6.3-8.3) 08/05/17 07:32 Albumin 3.6 g/dL (3.5-5.0) 08/05/17 07:32 Globulin 3.9 gm/dL (2.2-3.9) 08/05/17 07:32 Albumin/Globulin Ratio 0.9 (1.0-2.1) L 08/05/17 07:32 Lipase 138 U/L (23-300) 08/03/17 20:12 Urine Color Triny (YELLOW) 08/03/17 21:17 Urine Clarity Clear (Clear) 08/03/17 21:17 Urine pH 6.0 (5.0-8.0) 08/03/17 21:17 Ur Specific [place] 1.023 (1.003-1.030) 08/03/17 21:17 Urine Protein 1+ mg/dL (NEGATIVE) H 08/03/17 21:17 Urine Glucose (UA) Normal mg/dL (Normal) 08/03/17 21:17 Urine Ketones Negative mg/dL (NEGATIVE) 08/03/17 21:17 Urine Blood Negative (NEGATIVE) 08/03/17 21:17 Urine Nitrate Negative (NEGATIVE) 08/03/17 21:17 Urine Bilirubin Negative (NEGATIVE) 08/03/17 21:17 Urine Urobilinogen 4.0 mg/dL (0.2-1.0) 08/03/17 21:17 Ur Leukocyte Esterase Neg [place]ancie/uL (Negative) 08/03/17 21:17 Urine WBC (Auto) 1 /hpf (0-5) 08/03/17 21:17 Urine RBC (Auto) 1 /hpf (0-3) 08/03/17 21:17 Urine Bacteria Rare (<OCC) 08/03/17 21:17 Digoxin < 0.4 ng/mL (0.8-2.0) L 08/03/17 20:12 Urine Opiates Screen Negative (NEGATIVE) 08/03/17 21:17 Urine Methadone Screen Negative (NEGATIVE) 08/03/17 21:17 Ur Barbiturates Screen Negative (NEGATIVE) 08/03/17 21:17 Ur Phencyclidine Scrn Negative (NEGATIVE) 08/03/17 21:17 Ur Amphetamines Screen Negative (NEGATIVE) 08/03/17 21:17 U Benzodiazepines Scrn Negative (NEGATIVE) 08/03/17 21:17 U Oth Cocaine Metabols Positive (NEGATIVE) 08/03/17 21:17 U Cannabinoids Screen Negative (NEGATIVE) 08/03/17 21:17 Alcohol, Quantitative < 10 mg/dl (0-10) 08/03/17 20:12 - Hospital Course Hospital Course: "HPI: Patient is a 47 year old male with past medical history of HTN, CAD, CHF, Afib, COPD, ARLENE, Herniated discs L-spine, Bipolar/Depression, Asthma, hx of splenic infarct, who presents to the ED with complaints of abdominal pain that is more localized to the LLQ and LUQ that has been ongoing for 2 days. Patient states that his pain is a 10/10 constant pain with associated symptoms of diarrhea and fever. Patient denies chest pain, palpitations, nausea, vomiting and chills. " Hospital Course: Abdominal Pain: On admission, patient was afebrile with WBC count of 17.2. A CT abdomen & pelvis was done that showed Redemonstration of a focus of fluid attenuation and air within the left paracolic gutter, extending to the left lateral wall of the abdomen. Decrease in the subcapsular air along the lateral margin of the spleen. Dr. Senior (surgery) was consulted. As per Dr. Senior , splenic abscess significantly improved in comparison to previous CT. Surgical intervention not indicated at this time. Dr. Sorenson (ID) was consulted. Abscess treated with Cipro 400mg IV q12, Flagyl 500mg IV q8, and NS @ 80mls/hr. Pain was controlled with Dilaudid 1mg IVP q3 PRN with Percocet for breakthrough pain. Patient sent home on Cipro 500 mg BID for 14 days and Flagyl 500mg TID for 14 days. Hypertension: Patients home medications were continued including: HCTZ 50mg PO daily, Vasotec 10mg PO daily, Aldactone 25mg PO daily, Lasix 40mg PO daily Atrial fibrillation: Patients home medications were continued and heart rate/ rhythm were monitored with telemetry. Patient was treated with Cardizem 30mg PO QID, Digoxin 0.125mg PO daily, Amiodarone 200mg PO daily CHF: Echo on 02/2017 showed that LV systolic function was severely reduced with mild LV dilation and global hypokinesis of LV. Negative for endocarditis. Home medications were continued including HCTZ 50mg PO daily, Aldactone 25mg PO daily , Lasix 40mg PO daily Coronary Artery Disease: Home medications were continued including Aspirin 81mg PO daily and Crestor 2.5mg PO daily. COPD: Home medications were continued including Ventolin 2 puffs BID and Singular 10mg PO HS. Anxiety and Depression: Patient was given Prozac 40mg PO daily and Xanax 1mg PO q6. Ativan was discontinued. History of Tobacco Use: Smoking cessation was encourage. Patient was given a nicotine patch for his hospital stay. Prophylactic Measures: SCDs were contraindicated due to B/L LE edema. Patient was given Heparin 5,000 units SC q8 for DVT prophylaxis and Protonix 40mg IVP daily and on a regular diet for GI prophylaxis. Patient stable for discharge as per Dr. Ocampo. This is a summary of the patient's hospital course, please see chart for details. Discharge Exam - Head Exam Head Exam: ATRAUMATIC, NORMAL INSPECTION, NORMOCEPHALIC - Eye Exam Eye Exam: EOMI - ENT Exam ENT Exam: Mucous Membranes Moist - Neck Exam Neck exam: Full Rom - Respiratory Exam Respiratory Exam: Clear to PA & Lateral, NORMAL BREATHING PATTERN - Cardiovascular Exam Cardiovascular Exam: Irregular Rhythm - GI/Abdominal Exam GI & Abdominal Exam: Distended, Normal Bowel Sounds - Extremities Exam Extremities exam: full ROM, pedal edema - Neurological Exam Neurological exam: Alert, Oriented x3 - Psychiatric Exam Psychiatric exam: Normal Affect, Normal Mood - Skin Skin Exam: Intact, Normal Color, Warm Discharge Plan - Discharge Medications Prescriptions: Ciprofloxacin HCl [Cipro] 500 mg PO BID #28 tablet Metronidazole [Flagyl] 500 mg PO TID #42 tablet - Follow Up Plan Condition: GUARDED Disposition: HOME/ ROUTINE Instructions: Acute Abdominal Pain (GEN) Additional Instructions: Patient stable for discharge as per Dr. Ocampo. Patient to take cipro 500 mg twice a day for 14 days. Patient to take flagyl 500 mg three times a day for 14 days. Patient to follow up with Dr. Ocampo within one week. Patient to please return to Emergency Room if symptoms worsen or persist. Patient explained instructions who understands and agrees.
== END 2017-08-06 10:00 | disposition home or self-care (01) | DRG 815 ==
LOC: C.ER 19:18 → C.9E 23:15 → C.5T 23:15 → C.5S 08-05 09:21
PROVIDERS: ADMIT Internal Medicine; ATTEND Internal Medicine
DX: D73.3 Abscess of spleen (principal); R18.8 Other ascites; I11.0 Hypertensive heart disease with heart failure; D72.829 Elevated white blood cell count, unspecified; I25.10 Atherosclerotic heart disease of native coronary artery without angina pectoris; I48.91 Unspecified atrial fibrillation; G47.33 Obstructive sleep apnea (adult) (pediatric); F31.9 Bipolar disorder, unspecified; J45.909 Unspecified asthma, uncomplicated; M51.26 Other intervertebral disc displacement, lumbar region; Z95.5 Presence of coronary angioplasty implant and graft; F17.210 Nicotine dependence, cigarettes, uncomplicated; E78.00 Pure hypercholesterolemia, unspecified; J43.9 Emphysema, unspecified; M19.90 Unspecified osteoarthritis, unspecified site; F41.9 Anxiety disorder, unspecified; D73.5 Infarction of spleen; Z88.5 Allergy status to narcotic agent; R45.1 Restlessness and agitation; Z79.82 Long term (current) use of aspirin; F14.90 Cocaine use, unspecified, uncomplicated

== ENCOUNTER 2017-08-08 22:58 | Inpatient (IN) | payer MEDICARE, MEDICAID ==
[2017-08-08 22:59] VITALS: BMI 38.7
--- NOTE | 2017-08-08 23:46 | C.PDOC ---
History Of Present Illness Patient presents to the ER with a complaint of abdominal pain and swelling to the legs. Patient was discharged from the hospital last and has been taking his antibiotics as prescribed; however, he states he legs have begun to swell and he is still having abdominal pain. Patient had been admitted for a splenic abscess that has improved. Denies nausea, vomiting, fever, or chills. Time Seen by Provider: 08/08/17 23:46 Chief Complaint (Nursing): Abdominal Pain History Per: Patient History/Exam Limitations: no limitations Onset/Duration Of Symptoms: Days Current Symptoms Are (Timing): Still Present Severity: Mild Pain Scale Rating Of: 4 Location Of Pain/Discomfort: LUQ, LLQ Radiation Of Pain To:: None Quality Of Discomfort: Unable To Describe Associated Symptoms: denies: Fever, Chills, Nausea, Vomiting Alleviating Factors: None Recent travel outside of the [place]: No Past Medical History Reviewed: Historical Data, Nursing Documentation, Vital Signs Vital Signs: Last Vital Signs Temp 97.6 F 08/09/17 00:32 Pulse 102 H 08/09/17 00:32 Resp 20 08/09/17 00:32 BP 149/88 08/09/17 00:32 Pulse Ox 96 08/09/17 00:32 - Medical History PMH: Anxiety, Arthritis, Asthma, Atrial Fibrillation, Back Problems, Bipolar Disorder, CAD, Cardia Arrhythmia, CHF, COPD, Depression, Emphysema, HTN, Hypercholesterolemia, Peripheral Edema, Sleep Apnea, Chronic Pain (Lower Back Pain) Surgical History: Appendectomy (2008), Coronary Stent (2008 - 2012 4 stents) - [facility] Procedures CORONAR ARTERIOGR-2 CATH (07/06/13) DRAINAGE OF SPLEEN, PERCUTANEOUS APPROACH (03/05/17) INJECT/INFUSE NEC (02/22/14) LEFT HEART CARDIAC CATH (07/06/13) LT HEART ANGIOCARDIOGRAM (07/06/13) NEBULIZER THERAPY (03/28/14) NON-INVASIVE MECHANICAL VENTILATION (03/26/15) TRANSFUSE NONAUT FROZEN PLASMA IN PERIPH VEIN, PERC (02/21/17) Family History: States: Unknown Family Hx, CAD, Diabetes - Social History Hx Tobacco Use: Yes Hx Alcohol Use: No Hx Substance Use: Yes (cocaine) - Immunization History Hx Tetanus Toxoid Vaccination: Yes Hx Influenza Vaccination: Yes Hx Pneumococcal Vaccination: Yes (08/2014) Review Of Systems Constitutional: Negative for: Fever, Chills Gastrointestinal: Positive for: Abdominal Pain. Negative for: Nausea, Vomiting Musculoskeletal: Positive for: Other (Leg swelling) Skin: Negative for: Rash Physical Exam - Physical Exam Appears: Non-toxic Skin: Warm, Dry, Other (chronic vascular stasis changes) Head: Normacephalic Oral Mucosa: Moist Chest: Symmetrical Cardiovascular: Rhythm Regular Respiratory: No Rales, No Rhonchi, No Wheezing Gastrointestinal/Abdominal: Soft, Tenderness (Left sided), Distention Extremity: Pedal Edema (Bilateral), Capillary Refill (Good) Pulses: Left Dorsalis Pedis: Normal, Right Dorsalis Pedis: Normal Neurological/Psych: Oriented x3 ED Course And Treatment - Laboratory Results Result Diagrams: 08/09/17 00:33 08/09/17 00:33 ECG: Interpreted By Me, Viewed By Me O2 Sat by Pulse Oximetry: 98 (Room air) Pulse Ox Interpretation: Normal Progress Note: Blood work and urinalysis ordered. Toradol and protonix administered. Disposition Discussed With Dr.: Roque Ocampo Jr. Comment: accepted the pt on his service and took over the care at 2:37AM Counseled Patient/Family Regarding: Studies Performed, Diagnosis - Disposition Disposition: HOSPITALIZED Disposition Time: 23:46 Condition: FAIR Forms: [facility] ([place]) - POA Present On Arrival: Poor Glycemic Control - Clinical Impression Clinical Impression: Abdominal pain, Congestive heart failure, Edema - Scribe Statement The provider has reviewed the documentation as recorded by the Scribe Matt Mayorga All medical record entries made by the Scribe were at my direction and personally dictated by me. I have reviewed the chart and agree that the record accurately reflects my personal performance of the history, physical exam, medical decision making, and the department course for this patient. I have also personally directed, reviewed, and agree with the discharge instructions and disposition. Decision To Admit - Pt Status Changed To: Hospital Disposition Of: Observation - . Bed Request Type: Telemetry Admitting Physician: Roque Ocampo Jr. Patient Diagnosis: Congestive heart failure, Abdominal pain, Edema
[2017-08-09 00:36] LABS: BASO # 0.1 K/uL (0.0-0.2); BASO % 0.6 % (0.0-2.0); EOS # 0.2 K/uL (0.0-0.7); EOS % 1.4 % (0.0-4.0); HEMATOCRIT 47.7 % (35.0-51.0); LYMPH # 1.2 K/uL (1.0-4.3); LYMPH % 8.9 % (20.0-40.0); MEAN CELL VOLUME 75.5 fL (80.0-94.0); MEAN CORPUSCULAR HEMOGLOBIN 23.1 pg (27.0-31.0); MEAN CORPUSCULAR HGB CONC 30.6 g/dL (33.0-37.0); MEAN PLATELET VOLUME 7.5 fL (7.2-11.7); NRBC % 0.1 % (0.0-2.0); PLATELET COUNT 337 K/uL (130-400); RED CELL DISTRIBUTION WIDTH 18.9 % (11.5-14.5); WHITE BLOOD COUNT 13.5 K/uL (4.8-10.8)
[2017-08-09 00:44] LABS: CHLORIDE 93 mmol/L (98-107); POTASSIUM 4.6 mmol/L (3.6-5.2); SODIUM 136 mmol/L (132-148)
[2017-08-09 00:46] LABS: GFR AFRICAN-AMERICAN > 60
[2017-08-09 00:47] LABS: ALB/GLOB RATIO 0.9 (1.0-2.1); ALKALINE PHOSPHATASE 91 U/L (38-126); ALT/SGPT 28 U/L (21-72); AST/SGOT 31 U/L (17-59); BLOOD UREA NITROGEN 19 mg/dL (9-20); CARBON DIOXIDE 29 mmol/L (22-30); GLUCOSE,RANDOM 119 mg/dL (75-110)
[2017-08-09 01:27] LABS: BASOPHIL 1 % (0-2); EOSINOPHIL 1 % (0-4); NEUTROPHIL 63 % (50-75); REACTIVE LYMPHOCYTES 1 % (0-0); TOTAL CELLS COUNTED 100
[2017-08-09] MEDS ORDERED: Oxycodone/Acetaminophen 5/325 mg Tab ONE (02:48)
[2017-08-09] MEDS ORDERED: Oxycodone/Acetaminophen 5/325 mg Tab PO ONE (02:54)
[2017-08-09] MEDS ORDERED: HYDROmorphone 1 mg/ml ISec IVP PRN (03:31)
[2017-08-09] MEDS ORDERED: Albuterol HFA 90 mcg/actuation (8 g) INH PRN (03:41)
[2017-08-09 04:02] LABS: RBC URINE 2 /hpf (0-3); URINE BILIRUBIN NEGATIVE (NEGATIVE); URINE BLOOD NEGATIVE (NEGATIVE); URINE COLOR Yellow (YELLOW); URINE GLUCOSE (UA) NORMAL (Normal); URINE KETONE NEGATIVE (NEGATIVE); URINE LEUKOCYTE ESTERASE NEG Leu/uL (Negative); URINE PROTEIN NEGATIVE (NEGATIVE); WBC URINE 1 /hpf (0-5)
[2017-08-09] MEDS ORDERED: Ciprofloxacin 400mg/200ml D5W 400 MG/200 ML BAG IVPB SCH (04:30)
--- NOTE | 2017-08-09 04:34 | CP.PCM.HP ---
History of Present Illness - History of Present Illness History of Present Illness: CC: Abdominal pain HPI: Patient is a 47 year old male with past medical history of HTN, CAD, CHF, Afib, COPD, ARLENE, Herniated discs L-spine, Bipolar/Depression, Asthma, hx of splenic infarct/abscess, who presents to the ED with complaints of abdominal pain. Patient says he was here 1 week ago with similar symptoms and was treated with antibiotics for splenic abscess. Patient was sent home on Cipro and Flagyl and says that he felt much better until today when the pain came back. Patient says he was compliant with abx but he did not take any of his other medications today. Patient describes the pain as 8/10 in intensity and localized to the LLQ and LUQ. He c/o associated non bloody diarrhea of 2 days duration. Patieint is also complaining of mid sternal chest pain, SOB on exertion, Cough productive of clear sputum, b/l LE edema, pain, and erythema that started today. patient also notes this his "kidneys burn" when he is urinating. Patient denies increased frequency and hematuria. Patient denies headache, changes in vision, tinnitus, sore throat, wheezing, vomiting, blood in stool, incontinence, syncope , and rash. PMHx: HTN, CAD, CHF, Afib, COPD, ARLENE, Herniated discs L-spine, Bipolar/ Depression, Asthma, hx of splenic infarct/abscess (As per chart review) PSHx: Appendectomy (2008), Coronary stents x4 ([id number]) (As per chart review) FHx: Denies Medications: Diltiazem, ASA, digoxin, enalapril, HCTZ, Lasix, ventolin, singulair, Prozac, crestor, Xanax, spironolactone, amiodarone Allergies:Apixaban, clopidogrel, enoxaparin, Morphine Social history: Former smoker (nioctine patch) Present on Admission - Present on Admission Any Indicators Present on Admission: No Review of Systems - Review of Systems All systems: reviewed and no additional remarkable complaints except (as per HPI ) Past Patient History - Infectious Disease Hx of Infectious Diseases: None - Tetanus Immunizations Tetanus Immunization: Up to Date - Past Medical History & Family History Past Medical History?: Yes - Past Social History Smoking Status: Light Smoker < 10 Cigarettes Daily - CARDIAC Hx Atrial Fibrillation: Yes Hx Cardia Arrhythmia: Yes Hx Congestive Heart Failure: Yes Hx Hypercholesterolemia: Yes Hx Hypertension: Yes Hx Peripheral Edema: Yes - PULMONARY Hx Asthma: Yes Hx Chronic Obstructive Pulmonary Disease (COPD): Yes Hx Emphysema: Yes Hx Sleep Apnea: Yes - NEUROLOGICAL Hx Neurological Disorder: No - HEENT Hx HEENT Problems: No - RENAL Hx Chronic Kidney Disease: No - ENDOCRINE/METABOLIC Hx Endocrine Disorders: No - HEMATOLOGICAL/ONCOLOGICAL Hx Blood Disorders: Yes Other/Comment: MRSA Hx - INTEGUMENTARY Hx Dermatological Problems: Yes - MUSCULOSKELETAL/RHEUMATOLOGICAL Hx Arthritis: Yes - GASTROINTESTINAL Hx Gastrointestinal Disorders: Yes Other/Comment: Splenic Hematoma - GENITOURINARY/GYNECOLOGICAL Hx Genitourinary Disorders: No - PSYCHIATRIC Hx Anxiety: Yes Hx Bipolar Disorder: Yes Hx Depression: Yes Hx Substance Use: Yes (cocaine) - SURGICAL HISTORY Hx Appendectomy: Yes (2008) Hx Coronary Stent: Yes (2008 - 2012 4 stents) - ANESTHESIA Hx Anesthesia: Yes Hx Anesthesia Reactions: No Hx Malignant Hyperthermia: No Meds Allergies/Adverse Reactions: Allergies Allergy/AdvReac Type Severity Reaction Status Date / Time apixaban [From Eliquis] Allergy RASH Verified 08/03/17 19:27 clopidogrel bisulfate Allergy RASH Verified 08/03/17 19:27 [From Plavix] enoxaparin sodium Allergy RASH Verified 08/03/17 19:27 [From Lovenox] morphine Allergy RASH Verified 08/03/17 19:27 Physical Exam - Constitutional Appears: Non-toxic, No Acute Distress - Head Exam Head Exam: ATRAUMATIC, NORMAL INSPECTION, NORMOCEPHALIC - Eye Exam Eye Exam: EOMI - ENT Exam ENT Exam: Mucous Membranes Moist - Respiratory Exam Respiratory Exam: Clear to Auscultation Bilateral, NORMAL BREATHING PATTERN - Cardiovascular Exam Cardiovascular Exam: Irregular Rhythm, +S1, +S2. absent: Bradycardia, Tachycardia - GI/Abdominal Exam GI & Abdominal Exam: Normal Bowel Sounds, Soft, Tenderness (LUQ LLQ). absent: Bruit - Extremities Exam Extremities exam: Positive for: normal capillary refill, pedal edema, tenderness Additional comments: multiple sores of b/l LE. Erythema of b/l lower legs more so on right than left. - Back Exam Back exam: CVA tenderness (L), CVA tenderness (R), NORMAL INSPECTION - Neurological Exam Neurological exam: Alert, Oriented x3 - Psychiatric Exam Psychiatric exam: Normal Affect, Normal Mood - Skin Skin Exam: Dry, Warm Results - Vital Signs Recent Vital Signs: Last Vital Signs Temp 97.8 F 08/09/17 03:56 Pulse 90 08/09/17 03:56 Resp 20 08/09/17 03:56 BP 116/79 08/09/17 03:56 Pulse Ox 98 08/09/17 03:56 - Labs Result Diagrams: 08/09/17 00:33 08/09/17 00:33 Labs: Laboratory Results - last 24 hr 08/09/17 08/09/17 03:08 03:56 Troponin I 0.0730 Urine Color Yellow Urine Clarity Clear Urine pH 6.0 Ur Specific Dwarf 1.015 Urine Protein Negative Urine Glucose (UA) Normal Urine Ketones Negative Urine Blood Negative Urine Nitrate Negative Urine Bilirubin Negative Urine Urobilinogen 4.0 Ur Leukocyte Esterase Neg Urine WBC (Auto) 1 Urine RBC (Auto) 2 Hyaline Casts 11-20 H Assessment & Plan - Assessment and Plan (Free Text) Assessment: Left sided abdominal pain On admission: * Afebrile, with leuckocytosis: WBC: 13.5 Medications: * D/C Cipro 400mg IV Q12H due to adverse cardiac effects and start Zosyn 3.375 Q6H * Flagyl 500mg IV Q8H Continue to monitor with AM LABS Pain with Urination * F/U UA Hypertension Continue home medications: * Vasotec 10mg PO daily * HCTZ 50mg PO daily * Aldactone 25mg PO daily * Lasix 40mg PO daily History of atrial fibrillation Continue home medications: * Cardizem 30mg PO QID * Digoxin 0.125mg PO daily * Amiodarone 200mg PO daily * Continue to monitor with telemetry History of CHF ECHO (02/2017): LV systolic function severely reduced. LV mildly dilated. Severe global hypokinesis of LV. Negative for endocarditis. Continue home medications: * Lasix 40mg PO daily * HCTZ 50mg PO daily * Aldactone 25mg PO daily * Fluid restriction * Daily weights History of coronary artery disease Continue home medications: * Aspirin 81mg PO daily * Crestor 2.5mg PO daily History of COPD Continue home medications: * Ventolin 2 PUFF BID * Singulair 10 mg PO HS Anxiety and depression Prozac 40mg po daily Xanax 1mg po Q6H PRN Tobacco use disorder Encourage smoking cessation Nicotine patch Prophylactic measure SCDs contraindicated due to b/l LE edema Heparin 5,000 units SC q8h Protonix 40mg PO daily Heart healthy diet
[2017-08-09] MEDS: Piperacillin/Tazobact 3.375 GM in Sodium Chloride 100 ML IVPB SCH ×4 (05:38→23:12)
[2017-08-09] MEDS: metroNIDAZOLE IV 500 mg/100 ml 500 MG/100 ML BAG IVPB SCH ×3 (06:40→22:18)
[2017-08-09 07:25] LABS: BASO # 0.1 K/uL (0.0-0.2); BASO % 0.8 % (0.0-2.0); EOS # 0.2 K/uL (0.0-0.7); EOS % 2.1 % (0.0-4.0); HEMATOCRIT 43.4 % (35.0-51.0); LYMPH # 1.7 K/uL (1.0-4.3); LYMPH % 14.7 % (20.0-40.0); MEAN CELL VOLUME 74.7 fL (80.0-94.0); MEAN CORPUSCULAR HEMOGLOBIN 23.1 pg (27.0-31.0); MEAN PLATELET VOLUME 7.8 fL (7.2-11.7); MONO # 1.8 K/uL (0.0-0.8); MONO % 15.3 % (0.0-10.0); RED CELL DISTRIBUTION WIDTH 18.7 % (11.5-14.5); WHITE BLOOD COUNT 11.7 K/uL (4.8-10.8)
[2017-08-09 08:03] LABS: ALB/GLOB RATIO 0.8 (1.0-2.1); ALKALINE PHOSPHATASE 83 U/L (38-126); ALT/SGPT 23 U/L (21-72); AST/SGOT 31 U/L (17-59); BILIRUBIN,TOTAL 0.7 mg/dL (0.2-1.3); BLOOD UREA NITROGEN 19 mg/dL (9-20); CALCIUM 8.6 mg/dl (8.6-10.4); CARBON DIOXIDE 30 mmol/L (22-30); CHLORIDE 93 mmol/L (98-107); GFR AFRICAN-AMERICAN > 60; GLUCOSE,RANDOM 113 mg/dL (75-110); POTASSIUM 4.1 mmol/L (3.6-5.2); SODIUM 137 mmol/L (132-148); TOTAL PROTEIN 7.4 g/dL (6.3-8.3)
[2017-08-09] MEDS: Pantoprazole 40 mg EC Tab PO SCH (09:35)
--- NOTE | 2017-08-09 11:25 | RAD ---
PROCEDURE: CHEST RADIOGRAPH, 1 VIEW HISTORY: CHF COMPARISON: 08/03/2017 FINDINGS: LUNGS: Examination is somewhat limited due to patient body habitus. New opacity at right base. Possible pneumonia. Possible atypical pulmonary edema. PLEURA: No pneumothorax or pleural fluid seen. CARDIOVASCULAR: Grossly normal heart size. Mild congestive change noted. OSSEOUS STRUCTURES: No significant abnormalities. VISUALIZED UPPER ABDOMEN: Normal. OTHER FINDINGS: None. IMPRESSION: Right basilar opacity. Possible pneumonia. Congestive change.
[2017-08-09] MEDS ORDERED: Albuterol-Ipratrop 3 mg / 0.5 (3 ml) UD INH PRN (17:39)
[2017-08-09] MEDS: Digoxin 125 mcg (0.125 mg) Tab PO SCH (18:24)
[2017-08-09] MEDS: Rosuvastatin Calcium 2.5 mg Tab PO SCH (22:17)
[2017-08-10] MEDS: Piperacillin/Tazobact 3.375 GM in Sodium Chloride 100 ML IVPB SCH ×4 (04:45→23:30)
[2017-08-10] MEDS: metroNIDAZOLE IV 500 mg/100 ml 500 MG/100 ML BAG IVPB SCH ×3 (05:43→22:58)
[2017-08-10 07:25] LABS: BASO # 0.1 K/uL (0.0-0.2); BASO % 1.2 % (0.0-2.0); EOS # 0.4 K/uL (0.0-0.7); EOS % 4.6 % (0.0-4.0); HEMATOCRIT 42.9 % (35.0-51.0); LYMPH # 1.7 K/uL (1.0-4.3); LYMPH % 19.7 % (20.0-40.0); MEAN CELL VOLUME 75.2 fL (80.0-94.0); MEAN CORPUSCULAR HEMOGLOBIN 23.3 pg (27.0-31.0); MEAN PLATELET VOLUME 7.9 fL (7.2-11.7); MONO # 1.3 K/uL (0.0-0.8); MONO % 14.8 % (0.0-10.0); WHITE BLOOD COUNT 8.6 K/uL (4.8-10.8)
[2017-08-10 08:00] LABS: CHLORIDE 97 mmol/L (98-107); POTASSIUM 4.6 mmol/L (3.6-5.2); SODIUM 137 mmol/L (132-148)
[2017-08-10 08:02] LABS: ALB/GLOB RATIO 0.8 (1.0-2.1); AST/SGOT 31 U/L (17-59); BILIRUBIN,TOTAL 0.7 mg/dL (0.2-1.3); CARBON DIOXIDE 29 mmol/L (22-30); GFR AFRICAN-AMERICAN > 60; TOTAL PROTEIN 7.8 g/dL (6.3-8.3)
[2017-08-10 08:03] LABS: ALKALINE PHOSPHATASE 76 U/L (38-126); ALT/SGPT 18 U/L (21-72); BLOOD UREA NITROGEN 22 mg/dL (9-20); CALCIUM 8.5 mg/dl (8.6-10.4); GLUCOSE,RANDOM 133 mg/dL (75-110); MAGNESIUM 1.5 mg/dL (1.6-2.3); PHOSPHOROUS 4.1 mg/dL (2.5-4.5)
[2017-08-10] MEDS: Oxycodone/Acetaminophen 5/325 mg Tab PO PRN ×3 (10:19→22:57)
[2017-08-10] MEDS: Pantoprazole 40 mg EC Tab PO SCH (10:20)
--- NOTE | 2017-08-10 10:29 | CP.PCM.PN ---
<Xochilt Peterson - Last Filed: 08/10/17 14:04> Subjective - Date & Time of Evaluation Date of Evaluation: 08/10/17 Time of Evaluation: 07:00 - Subjective Subjective: PGY1- medicine note- Dr. Ocampo's Service Patient seen and examined at bedside and in no acute distress. Patient complains of abdominal and back pain. Patient also says he is very anxious. Patient denies chest pain, shortness of breath, nausea, vomiting, constipation, diarrhea. Objective - Vital Signs/Intake and Output Vital Signs (last 24 hours): Temp Pulse Resp BP Pulse Ox 97.4 F L 71 18 138/86 97 08/10/17 07:25 08/10/17 07:25 08/10/17 07:25 08/10/17 07:25 08/10/17 07:25 Intake and Output: 08/10/17 08/10/17 06:59 18:59 Intake Total 500 Balance 500 - Medications Medications: Current Medications Albuterol/Ipratropium (Duoneb 3 Mg/0.5 Mg (3 Ml) Ud) 3 ml INH RQ6 PRN PRN Reason: Wheezing Last Admin: 08/09/17 17:45 Dose: 3 ml Alprazolam (Xanax) 1 mg PO Q6 [facility] Last Admin: 08/10/17 05:43 Dose: 1 mg Amiodarone HCl (Cordarone) 200 mg PO DAILY [facility] Last Admin: 08/10/17 10:20 Dose: 200 mg Aspirin (Ecotrin) 81 mg PO DAILY [facility] Last Admin: 08/10/17 10:20 Dose: 81 mg Digoxin (Lanoxin) 0.125 mg PO DAILY@1800 [facility] Last Admin: 08/09/17 18:24 Dose: 0.125 mg Diltiazem HCl (Cardizem) 30 mg PO QID [facility] Last Admin: 08/10/17 10:20 Dose: 30 mg Diphenhydramine HCl (Benadryl) 25 mg PO Q6 PRN PRN Reason: Itching / Pruritus Last Admin: 08/10/17 10:20 Dose: 25 mg Enalapril Maleate (Vasotec) 10 mg PO DAILY [facility] Last Admin: 08/09/17 09:35 Dose: 10 mg Fluoxetine HCl (Prozac) 40 mg PO DAILY [facility] Last Admin: 08/10/17 10:20 Dose: 40 mg Furosemide (Lasix) 40 mg IVP DAILY [facility] Heparin Sodium (Porcine) (Heparin) 5,000 units SC Q8 [facility] Last Admin: 08/10/17 05:44 Dose: Not Given Hydrochlorothiazide (Microzide) 50 mg PO DAILY [facility] Last Admin: 08/10/17 10:20 Dose: 50 mg Hydromorphone HCl (Dilaudid) 1 mg IVP Q4H PRN PRN Reason: Pain, severe (8-10) Last Admin: 08/10/17 03:47 Dose: 1 mg Metronidazole (Flagyl) 500 mg in 100 mls @ 100 mls/hr IVPB Q8 [facility] Last Admin: 08/10/17 05:43 Dose: 100 mls/hr Piperacillin Sod/Tazobactam (Sod 3.375 gm/ Sodium Chloride) 100 mls @ 200 mls/ hr IVPB Q6H [facility] Last Admin: 08/10/17 04:45 Dose: 200 mls/hr Nicotine (Nicoderm Cq) 1 patch TD DAILY [facility] Last Admin: 08/10/17 10:20 Dose: 1 patch Ondansetron HCl (Zofran Inj) 4 mg IVP Q8H PRN PRN Reason: Nausea/Vomiting Last Admin: 08/09/17 18:24 Dose: 4 mg Oxycodone/Acetaminophen (Percocet 5/325 Mg Tab) 2 tab PO Q6H PRN PRN Reason: Pain, moderate (4-7) Stop: 08/13/17 07:42 Last Admin: 08/10/17 10:19 Dose: 2 tab Pantoprazole Sodium (Protonix Ec Tab) 40 mg PO DAILY [facility] Last Admin: 08/10/17 10:20 Dose: 40 mg Rosuvastatin Calcium (Crestor) 2.5 mg PO HS [facility] Last Admin: 08/09/17 22:17 Dose: 2.5 mg Spironolactone (Aldactone) 25 mg PO DAILY [facility] Last Admin: 08/10/17 10:20 Dose: 25 mg - Labs Labs: 08/10/17 07:11 08/10/17 07:11 - Constitutional Appears: Non-toxic, No Acute Distress - Head Exam Head Exam: ATRAUMATIC, NORMAL INSPECTION, NORMOCEPHALIC - Eye Exam Eye Exam: EOMI, Normal appearance, PERRL - ENT Exam ENT Exam: Mucous Membranes Moist - Neck Exam Neck Exam: Full ROM. absent: Tenderness - Respiratory Exam Respiratory Exam: Clear to Ausculation Bilateral, NORMAL BREATHING PATTERN. absent: Rhonchi, Wheezes, Respiratory Distress - Cardiovascular Exam Cardiovascular Exam: Irregular Rhythm. absent: Gallop, Rubs, Murmur - GI/Abdominal Exam GI & Abdominal Exam: Soft, Tenderness, Normal Bowel Sounds - Extremities Exam Extremities Exam: Full ROM, Pedal Edema Additional comments: LE edema and erythema - Neurological Exam Neurological Exam: Alert, Awake, Oriented x3 - Psychiatric Exam Psychiatric exam: Normal Affect, Normal Mood - Skin Skin Exam: Erythema, Intact, Warm Assessment and Plan - Assessment and Plan (Free Text) Assessment: Left sided abdominal pain On admission: * Afebrile, with leuckocytosis: WBC: 13.5 Medications: * D/C Cipro 400mg IV Q12H due to adverse cardiac effects and start Zosyn 3.375 Q6H * Flagyl 500mg IV Q8H Continue to monitor with AM LABS Pain with Urination * UA : neg ketones, leuk esterase, blood; positive hyaline casts 11-20 Hypertension Continue home medications: * Vasotec 10mg PO daily * HCTZ 50mg PO daily * Aldactone 25mg PO daily * Lasix 40mg PO daily History of atrial fibrillation Continue home medications: * Cardizem 30mg PO QID * Digoxin 0.125mg PO daily * Amiodarone 200mg PO daily * Continue to monitor with telemetry History of CHF ECHO (02/2017): LV systolic function severely reduced. LV mildly dilated. Severe global hypokinesis of LV. Negative for endocarditis. Continue home medications: * Lasix 40mg PO daily * HCTZ 50mg PO daily * Aldactone 25mg PO daily * Fluid restriction * Daily weights History of coronary artery disease Continue home medications: * Aspirin 81mg PO daily * Crestor 2.5mg PO daily History of COPD Continue home medications: * Ventolin 2 PUFF BID * Singulair 10 mg PO HS Anxiety and depression Prozac 40mg po daily Xanax 1mg po Q6H PRN Tobacco use disorder Encourage smoking cessation Nicotine patch Prophylactic measure SCDs contraindicated due to b/l LE edema Heparin 5,000 units SC q8h Protonix 40mg PO daily Heart healthy diet <Roque Ocampo Jr. - Last Filed: 08/11/17 11:12> Objective - Vital Signs/Intake and Output Vital Signs (last 24 hours): Temp Pulse Resp BP Pulse Ox 97.3 F L 73 20 110/63 98 08/11/17 07:25 08/11/17 07:25 08/11/17 07:25 08/11/17 11:01 08/11/17 07:25 Intake and Output: 08/11/17 08/11/17 06:59 18:59 Intake Total 500 Output Total 1550 Balance -1050 - Medications Medications: Current Medications Albuterol/Ipratropium (Duoneb 3 Mg/0.5 Mg (3 Ml) Ud) 3 ml INH RQ6 PRN PRN Reason: Wheezing Last Admin: 08/09/17 17:45 Dose: 3 ml Alprazolam (Xanax) 1 mg PO Q6 [facility] Last Admin: 08/11/17 11:00 Dose: 1 mg Amiodarone HCl (Cordarone) 200 mg PO DAILY [facility] Last Admin: 08/11/17 11:00 Dose: Not Given Aspirin (Ecotrin) 81 mg PO DAILY [facility] Last Admin: 08/11/17 11:00 Dose: 81 mg Digoxin (Lanoxin) 0.125 mg PO DAILY@1800 [facility] Last Admin: 08/10/17 18:20 Dose: 0.125 mg Diltiazem HCl (Cardizem) 30 mg PO QID [facility] Last Admin: 08/11/17 10:59 Dose: Not Given Diphenhydramine HCl (Benadryl) 25 mg PO Q6 PRN PRN Reason: Itching / Pruritus Last Admin: 08/11/17 06:32 Dose: 25 mg Enalapril Maleate (Vasotec) 10 mg PO DAILY [facility] Last Admin: 08/11/17 11:01 Dose: 10 mg Fluoxetine HCl (Prozac) 40 mg PO DAILY [facility] Last Admin: 08/11/17 11:01 Dose: 40 mg Furosemide (Lasix) 40 mg IVP DAILY [facility] Last Admin: 08/11/17 11:01 Dose: 40 mg Gabapentin (Neurontin) 300 mg PO DAILY [facility] Last Admin: 08/11/17 11:00 Dose: 300 mg Gabapentin (Neurontin) 600 mg PO HS [facility] Last Admin: 08/10/17 22:57 Dose: 600 mg Heparin Sodium (Porcine) (Heparin) 5,000 units SC Q8 [facility] Last Admin: 08/11/17 06:03 Dose: Not Given Hydrochlorothiazide (Microzide) 50 mg PO DAILY [facility] Last Admin: 08/11/17 11:01 Dose: 50 mg Hydromorphone HCl (Dilaudid) 1 mg IVP Q4H PRN PRN Reason: Pain, severe (8-10) Last Admin: 08/11/17 10:58 Dose: 1 mg Metronidazole (Flagyl) 500 mg in 100 mls @ 100 mls/hr IVPB Q8 [facility] Last Admin: 08/11/17 05:51 Dose: 100 mls/hr Piperacillin Sod/Tazobactam (Sod 3.375 gm/ Sodium Chloride) 100 mls @ 200 mls/ hr IVPB Q6H [facility] Last Admin: 08/11/17 11:08 Dose: 200 mls/hr Montelukast Sodium (Singulair) 10 mg PO [facility] Neomycin/Polymyxin/Bacitracin (Neosporin Triple Antibiotic Oint) 1 gm TOP BID [facility] Last Admin: 08/10/17 18:19 Dose: 1 applic Nicotine (Nicoderm Cq) 1 patch TD DAILY [facility] Last Admin: 08/11/17 11:01 Dose: 1 patch Ondansetron HCl (Zofran Inj) 4 mg IVP Q8H PRN PRN Reason: Nausea/Vomiting Last Admin: 08/09/17 18:24 Dose: 4 mg Oxycodone/Acetaminophen (Percocet 5/325 Mg Tab) 2 tab PO Q6H PRN PRN Reason: Pain, moderate (4-7) Stop: 08/13/17 07:42 Last Admin: 08/11/17 06:26 Dose: 2 tab Pantoprazole Sodium (Protonix Ec Tab) 40 mg PO DAILY [facility] Last Admin: 08/11/17 11:00 Dose: 40 mg Rosuvastatin Calcium (Crestor) 2.5 mg PO [facility] Last Admin: 08/10/17 22:56 Dose: 2.5 mg Fluticasone/Salmeterol (Advair Diskus 100/50) 1 puff INH RQ12 [facility] Spironolactone (Aldactone) 25 mg PO DAILY [facility] Last Admin: 08/11/17 11:00 Dose: 25 mg - Labs Labs: 08/11/17 06:45 08/11/17 06:45 Attending/Attestation - Attestation I have personally seen and examined this patient.: Yes I have fully participated in the care of the patient.: Yes I have reviewed all pertinent clinical information, including history, physical exam and plan: Yes Notes (Text): 08/11/17 11:11 Agree with resident note and findings
--- NOTE | 2017-08-10 12:32 | CARD ---
APPROVED REPORT EKG Measurement Heart [id number] <Conclusion> Atrial fibrillation RSR' or QR pattern in V1 suggests right ventricular conduction delay Left anterior fascicular block Inferior infarct, age undetermined Cannot rule out Anterior infarct, age undetermined ST & T wave abnormality, consider lateral ischemia Abnormal ECG
[2017-08-10] MEDS: Bacitracin/Neomycin/Polymyxin Oint(30GM) TOP SCH (18:19)
[2017-08-10] MEDS: Digoxin 125 mcg (0.125 mg) Tab PO SCH (18:20)
[2017-08-10] MEDS: Rosuvastatin Calcium 2.5 mg Tab PO SCH (22:56)
[2017-08-11] MEDS: Piperacillin/Tazobact 3.375 GM in Sodium Chloride 100 ML IVPB SCH ×4 (05:50→18:30)
[2017-08-11] MEDS: metroNIDAZOLE IV 500 mg/100 ml 500 MG/100 ML BAG IVPB SCH ×3 (05:51→21:49)
[2017-08-11] MEDS: Oxycodone/Acetaminophen 5/325 mg Tab PO PRN ×3 (06:26→19:10)
[2017-08-11 06:59] LABS: BASO # 0.1 K/uL (0.0-0.2); BASO % 1.1 % (0.0-2.0); EOS # 0.6 K/uL (0.0-0.7); EOS % 5.3 % (0.0-4.0); HEMATOCRIT 47.8 % (35.0-51.0); LYMPH # 2.3 K/uL (1.0-4.3); LYMPH % 22.2 % (20.0-40.0); MEAN CELL VOLUME 76.2 fL (80.0-94.0); MEAN CORPUSCULAR HEMOGLOBIN 23.2 pg (27.0-31.0); MEAN CORPUSCULAR HGB CONC 30.4 g/dL (33.0-37.0); MEAN PLATELET VOLUME 7.5 fL (7.2-11.7); MONO # 1.5 K/uL (0.0-0.8); RED CELL DISTRIBUTION WIDTH 19.3 % (11.5-14.5); WHITE BLOOD COUNT 10.4 K/uL (4.8-10.8)
[2017-08-11 07:24] LABS: CHLORIDE 93 mmol/L (98-107); POTASSIUM 4.5 mmol/L (3.6-5.2); SODIUM 138 mmol/L (132-148)
[2017-08-11 07:26] LABS: BILIRUBIN,TOTAL 0.7 mg/dL (0.2-1.3); GFR AFRICAN-AMERICAN > 60
[2017-08-11 07:27] LABS: ALB/GLOB RATIO 0.9 (1.0-2.1); ALKALINE PHOSPHATASE 81 U/L (38-126); ALT/SGPT 26 U/L (21-72); AST/SGOT 34 U/L (17-59); BLOOD UREA NITROGEN 25 mg/dL (9-20); CALCIUM 8.8 mg/dl (8.6-10.4); CARBON DIOXIDE 34 mmol/L (22-30); GLUCOSE,RANDOM 74 mg/dL (75-110); TOTAL PROTEIN 8.4 g/dL (6.3-8.3)
[2017-08-11 07:28] LABS: MAGNESIUM 1.9 mg/dL (1.6-2.3)
[2017-08-11] MEDS: Pantoprazole 40 mg EC Tab PO SCH (11:00)
--- NOTE | 2017-08-11 18:07 | CP.PCM.PN ---
Subjective - Date & Time of Evaluation Date of Evaluation: 08/11/17 Time of Evaluation: 07:00 - Subjective Subjective: PGY1- Medicine Note- Dr. Ocampo's Service Patient seen and examined at bedside and in no acute distress. Patient complaining of some abdominal and back pain. Patient denies chest pain, shortness of breath, nausea, vomiting, constipation, or diarrhea. Objective - Vital Signs/Intake and Output Vital Signs (last 24 hours): Temp Pulse Resp BP Pulse Ox 97.2 F L 130 H 20 100/48 L 96 08/11/17 15:00 08/11/17 15:00 08/11/17 15:00 08/11/17 15:00 08/11/17 15:00 Intake and Output: 08/11/17 08/11/17 06:59 18:59 Intake Total 500 Output Total 1550 Balance -1050 - Medications Medications: Current Medications Albuterol/Ipratropium (Duoneb 3 Mg/0.5 Mg (3 Ml) Ud) 3 ml INH RQ6 PRN PRN Reason: Wheezing Last Admin: 08/09/17 17:45 Dose: 3 ml Alprazolam (Xanax) 1 mg PO Q6 [facility] Last Admin: 08/11/17 11:00 Dose: 1 mg Amiodarone HCl (Cordarone) 200 mg PO DAILY [facility] Last Admin: 08/11/17 11:00 Dose: Not Given Aspirin (Ecotrin) 81 mg PO DAILY [facility] Last Admin: 08/11/17 11:00 Dose: 81 mg Digoxin (Lanoxin) 0.125 mg PO DAILY@1800 [facility] Last Admin: 08/10/17 18:20 Dose: 0.125 mg Diltiazem HCl (Cardizem) 30 mg PO QID [facility] Last Admin: 08/11/17 13:11 Dose: 30 mg Diphenhydramine HCl (Benadryl) 25 mg PO Q6 PRN PRN Reason: Itching / Pruritus Last Admin: 08/11/17 13:10 Dose: 25 mg Enalapril Maleate (Vasotec) 10 mg PO DAILY [facility] Last Admin: 08/11/17 11:01 Dose: 10 mg Fluoxetine HCl (Prozac) 40 mg PO DAILY [facility] Last Admin: 08/11/17 11:01 Dose: 40 mg Furosemide (Lasix) 40 mg IVP DAILY [facility] Last Admin: 08/11/17 11:01 Dose: 40 mg Gabapentin (Neurontin) 300 mg PO DAILY [facility] Last Admin: 08/11/17 11:00 Dose: 300 mg Gabapentin (Neurontin) 600 mg PO [facility] Last Admin: 08/10/17 22:57 Dose: 600 mg Heparin Sodium (Porcine) (Heparin) 5,000 units SC Q8 [facility] Last Admin: 08/11/17 14:20 Dose: Not Given Hydrochlorothiazide (Microzide) 50 mg PO DAILY [facility] Last Admin: 08/11/17 11:01 Dose: 50 mg Hydromorphone HCl (Dilaudid) 1 mg IVP Q4H PRN PRN Reason: Pain, severe (8-10) Last Admin: 08/11/17 16:07 Dose: 1 mg Metronidazole (Flagyl) 500 mg in 100 mls @ 100 mls/hr IVPB Q8 [facility] Last Admin: 08/11/17 13:11 Dose: 100 mls/hr Piperacillin Sod/Tazobactam (Sod 3.375 gm/ Sodium Chloride) 100 mls @ 200 mls/ hr IVPB Q6H [facility] Last Admin: 08/11/17 17:03 Dose: 200 mls/hr Montelukast Sodium (Singulair) 10 mg PO [facility] Neomycin/Polymyxin/Bacitracin (Neosporin Triple Antibiotic Oint) 1 gm TOP BID [facility] Last Admin: 08/10/17 18:19 Dose: 1 applic Nicotine (Nicoderm Cq) 1 patch TD DAILY [facility] Last Admin: 08/11/17 11:01 Dose: 1 patch Ondansetron HCl (Zofran Inj) 4 mg IVP Q8H PRN PRN Reason: Nausea/Vomiting Last Admin: 08/09/17 18:24 Dose: 4 mg Oxycodone/Acetaminophen (Percocet 5/325 Mg Tab) 2 tab PO Q6H PRN PRN Reason: Pain, moderate (4-7) Stop: 08/13/17 07:42 Last Admin: 08/11/17 13:10 Dose: 2 tab Pantoprazole Sodium (Protonix Ec Tab) 40 mg PO DAILY [facility] Last Admin: 08/11/17 11:00 Dose: 40 mg Rosuvastatin Calcium (Crestor) 2.5 mg PO [facility] Last Admin: 09/11/17 22:56 Dose: 2.5 mg Fluticasone/Salmeterol (Advair Diskus 100/50) 1 puff INH RQ12 [facility] Spironolactone (Aldactone) 25 mg PO DAILY [facility] Last Admin: 08/11/17 11:00 Dose: 25 mg - Labs Labs: 08/11/17 06:45 08/11/17 06:45 - Constitutional Appears: Non-toxic, No Acute Distress, Chronically Ill - Head Exam Head Exam: ATRAUMATIC, NORMAL INSPECTION, NORMOCEPHALIC - Eye Exam Eye Exam: EOMI, Normal appearance - ENT Exam ENT Exam: Mucous Membranes Moist - Neck Exam Neck Exam: Full ROM. absent: Tenderness - Respiratory Exam Respiratory Exam: Wheezes, NORMAL BREATHING PATTERN - Cardiovascular Exam Cardiovascular Exam: Irregular Rhythm. absent: Gallop, Rubs, Murmur - GI/Abdominal Exam GI & Abdominal Exam: Distended, Soft, Normal Bowel Sounds - Extremities Exam Extremities Exam: Full ROM, Pedal Edema - Neurological Exam Neurological Exam: Alert, Awake, Oriented x3 - Psychiatric Exam Psychiatric exam: Normal Affect, Normal Mood - Skin Skin Exam: Erythema, Warm Assessment and Plan - Assessment and Plan (Free Text) Assessment: Left sided abdominal pain On admission: * Afebrile, with leuckocytosis: WBC: 13.5 Medications: * D/C Cipro 400mg IV Q12H due to adverse cardiac effects and start Zosyn 3.375 Q6H * Flagyl 500mg IV Q8H Continue to monitor with AM LABS Pain with Urination * UA : neg ketones, leuk esterase, blood; positive hyaline casts 11-20 Hypertension Continue home medications: * Vasotec 10mg PO daily * HCTZ 50mg PO daily * Aldactone 25mg PO daily * Lasix 40mg PO daily History of atrial fibrillation Continue home medications: * Cardizem 30mg PO QID * Digoxin 0.125mg PO daily * Amiodarone 200mg PO daily * Continue to monitor with telemetry History of CHF ECHO (02/2017): LV systolic function severely reduced. LV mildly dilated. Severe global hypokinesis of LV. Negative for endocarditis. Continue home medications: * Lasix 40mg PO daily * HCTZ 50mg PO daily * Aldactone 25mg PO daily * Fluid restriction * Daily weights History of coronary artery disease Continue home medications: * Aspirin 81mg PO daily * Crestor 2.5mg PO daily History of COPD Continue home medications: * Ventolin 2 PUFF BID * Singulair 10 mg PO HS Anxiety and depression Prozac 40mg po daily Xanax 1mg po Q6H PRN Tobacco use disorder Encourage smoking cessation Nicotine patch Prophylactic measure SCDs contraindicated due to b/l LE edema Heparin 5,000 units SC q8h Protonix 40mg PO daily Heart healthy diet
[2017-08-11] MEDS: Digoxin 125 mcg (0.125 mg) Tab PO SCH (18:42)
[2017-08-11] MEDS: Fluticasone-Salmeterol 100-50mcg Diskus INH SCH (19:39)
[2017-08-11] MEDS: Rosuvastatin Calcium 2.5 mg Tab PO SCH (21:43)
[2017-08-11] MEDS: Bacitracin/Neomycin/Polymyxin Oint(30GM) TOP SCH (22:55)
[2017-08-12] MEDS: Piperacillin/Tazobact 3.375 GM in Sodium Chloride 100 ML IVPB SCH ×5 (00:01→22:43)
[2017-08-12] MEDS: Oxycodone/Acetaminophen 5/325 mg Tab PO PRN ×4 (00:52→21:30)
[2017-08-12] MEDS: metroNIDAZOLE IV 500 mg/100 ml 500 MG/100 ML BAG IVPB SCH ×3 (05:17→21:32)
[2017-08-12] MEDS: Fluticasone-Salmeterol 100-50mcg Diskus INH SCH ×2 (07:10→19:00)
[2017-08-12 07:27] LABS: BASO # 0.1 K/uL (0.0-0.2); BASO % 1.4 % (0.0-2.0); EOS # 0.5 K/uL (0.0-0.7); EOS % 4.9 % (0.0-4.0); HEMATOCRIT 44.7 % (35.0-51.0); LYMPH # 2.2 K/uL (1.0-4.3); LYMPH % 21.5 % (20.0-40.0); MEAN CELL VOLUME 75.4 fL (80.0-94.0); MEAN CORPUSCULAR HEMOGLOBIN 23.6 pg (27.0-31.0); MEAN CORPUSCULAR HGB CONC 31.2 g/dL (33.0-37.0); MEAN PLATELET VOLUME 7.4 fL (7.2-11.7); MONO # 1.3 K/uL (0.0-0.8); MONO % 12.9 % (0.0-10.0); WHITE BLOOD COUNT 10.1 K/uL (4.8-10.8)
[2017-08-12 08:29] LABS: CHLORIDE 96 mmol/L (98-107)
[2017-08-12 08:30] LABS: POTASSIUM 4.6 mmol/L (3.6-5.2); SODIUM 137 mmol/L (132-148)
[2017-08-12 08:32] LABS: ALB/GLOB RATIO 0.9 (1.0-2.1); AST/SGOT 34 U/L (17-59); BILIRUBIN,TOTAL 0.6 mg/dL (0.2-1.3); CARBON DIOXIDE 29 mmol/L (22-30); GFR AFRICAN-AMERICAN > 60; TOTAL PROTEIN 8.1 g/dL (6.3-8.3)
[2017-08-12 08:33] LABS: ALKALINE PHOSPHATASE 75 U/L (38-126); ALT/SGPT 21 U/L (21-72); BLOOD UREA NITROGEN 24 mg/dL (9-20); CALCIUM 8.7 mg/dl (8.6-10.4); GLUCOSE,RANDOM 84 mg/dL (75-110); MAGNESIUM 1.8 mg/dL (1.6-2.3); PHOSPHOROUS 3.3 mg/dL (2.5-4.5)
[2017-08-12] MEDS: Pantoprazole 40 mg EC Tab PO SCH (10:19)
[2017-08-12] MEDS: Bacitracin/Neomycin/Polymyxin Oint(30GM) TOP SCH ×2 (11:00→18:08)
[2017-08-12] MEDS: Albuterol-Ipratrop 3 mg / 0.5 (3 ml) UD INH PRN (13:20)
--- NOTE | 2017-08-12 14:59 | CP.PCM.PN ---
Subjective - Date & Time of Evaluation Date of Evaluation: 08/12/17 Time of Evaluation: 07:00 - Subjective Subjective: PGY1- Medicine Note- Dr. Ocampo's Service Patient seen and examined at bedside and in no acute distress. Patient complaining of b/l LE pain and increased swelling. Patient denies chest pain, shortness of breath, nausea, vomiting, constipation, or diarrhea. Objective - Vital Signs/Intake and Output Vital Signs (last 24 hours): Temp Pulse Resp BP Pulse Ox 97.4 F L 73 20 112/63 97 08/12/17 07:25 08/12/17 07:25 08/12/17 07:25 08/12/17 10:23 08/12/17 07:25 Intake and Output: 08/12/17 08/12/17 06:59 18:59 Intake Total 850 Output Total 400 Balance 450 - Medications Medications: Current Medications Albuterol/Ipratropium (Duoneb 3 Mg/0.5 Mg (3 Ml) Ud) 3 ml INH RQ4 PRN PRN Reason: Wheezing Last Admin: 08/12/17 13:20 Dose: 3 ml Alprazolam (Xanax) 1 mg PO Q6 REPLACED BY [facility] Last Admin: 08/12/17 12:20 Dose: 1 mg Amiodarone HCl (Cordarone) 200 mg PO DAILY REPLACED BY [facility] Last Admin: 08/12/17 10:20 Dose: 200 mg Aspirin (Ecotrin) 81 mg PO DAILY REPLACED BY [facility] Last Admin: 08/12/17 10:20 Dose: 81 mg Digoxin (Lanoxin) 0.125 mg PO DAILY@1800 REPLACED BY [facility] Last Admin: 08/11/17 18:42 Dose: 0.125 mg Diltiazem HCl (Cardizem) 30 mg PO QID REPLACED BY [facility] Last Admin: 08/12/17 14:49 Dose: 30 mg Diphenhydramine HCl (Benadryl) 25 mg PO Q6 PRN PRN Reason: Itching / Pruritus Last Admin: 08/12/17 14:10 Dose: 25 mg Enalapril Maleate (Vasotec) 10 mg PO DAILY REPLACED BY [facility] Last Admin: 08/12/17 10:23 Dose: 10 mg Fluoxetine HCl (Prozac) 40 mg PO DAILY REPLACED BY [facility] Last Admin: 08/12/17 10:19 Dose: 40 mg Furosemide (Lasix) 80 mg IVP ONCE ONE Stop: 08/12/17 18:01 Furosemide (Lasix) 80 mg IVP BID REPLACED BY [facility] Gabapentin (Neurontin) 300 mg PO DAILY REPLACED BY [facility] Last Admin: 08/12/17 10:19 Dose: 300 mg Gabapentin (Neurontin) 600 mg PO [facility] Last Admin: 08/11/17 21:43 Dose: 600 mg Hydrochlorothiazide (Microzide) 50 mg PO DAILY REPLACED BY [facility] Last Admin: 08/12/17 10:54 Dose: 50 mg Hydromorphone HCl (Dilaudid) 1 mg IVP Q4H PRN PRN Reason: Pain, severe (8-10) Last Admin: 08/12/17 14:48 Dose: 1 mg Metronidazole (Flagyl) 500 mg in 100 mls @ 100 mls/hr IVPB Q8 REPLACED BY [facility] Last Admin: 08/12/17 14:10 Dose: 100 mls/hr Piperacillin Sod/Tazobactam (Sod 3.375 gm/ Sodium Chloride) 100 mls @ 200 mls/ hr IVPB Q6H REPLACED BY [facility] Last Admin: 08/12/17 10:23 Dose: 200 mls/hr Montelukast Sodium (Singulair) 10 mg PO HS REPLACED BY [facility] Last Admin: 08/11/17 21:43 Dose: 10 mg Neomycin/Polymyxin/Bacitracin (Neosporin Triple Antibiotic Oint) 1 gm TOP BID REPLACED BY [facility] Last Admin: 08/12/17 11:00 Dose: 1 applic Nicotine (Nicoderm Cq) 1 patch TD DAILY REPLACED BY [facility] Last Admin: 08/12/17 10:19 Dose: 1 patch Ondansetron HCl (Zofran Inj) 4 mg IVP Q8H PRN PRN Reason: Nausea/Vomiting Last Admin: 08/09/17 18:24 Dose: 4 mg Oxycodone/Acetaminophen (Percocet 5/325 Mg Tab) 2 tab PO Q6H PRN PRN Reason: Pain, moderate (4-7) Stop: 08/13/17 07:42 Last Admin: 08/12/17 14:09 Dose: 2 tab Pantoprazole Sodium (Protonix Ec Tab) 40 mg PO DAILY REPLACED BY [facility] Last Admin: 08/12/17 10:19 Dose: 40 mg Rosuvastatin Calcium (Crestor) 2.5 mg PO [facility] Last Admin: 08/11/17 21:43 Dose: 2.5 mg Fluticasone/Salmeterol (Advair Diskus 100/50) 1 puff INH RQ12 REPLACED BY [facility] Last Admin: 08/12/17 07:10 Dose: Not Given Spironolactone (Aldactone) 25 mg PO DAILY REPLACED BY [facility] Last Admin: 08/12/17 10:20 Dose: 25 mg - Labs Labs: 08/12/17 06:48 08/12/17 06:48 - Constitutional Appears: Non-toxic, No Acute Distress, Chronically Ill - Head Exam Head Exam: ATRAUMATIC, NORMAL INSPECTION, NORMOCEPHALIC - Eye Exam Eye Exam: EOMI, Normal appearance - ENT Exam ENT Exam: Mucous Membranes Moist - Neck Exam Neck Exam: Full ROM. absent: Tenderness - Respiratory Exam Respiratory Exam: Clear to Ausculation Bilateral, NORMAL BREATHING PATTERN. absent: Rales, Rhonchi, Wheezes, Respiratory Distress, Stridor - Cardiovascular Exam Cardiovascular Exam: Irregular Rhythm - GI/Abdominal Exam GI & Abdominal Exam: Soft, Normal Bowel Sounds - Extremities Exam Extremities Exam: Full ROM, Pedal Edema, Tenderness - Neurological Exam Neurological Exam: Alert, Awake, Oriented x3 - Psychiatric Exam Psychiatric exam: Agitated, Normal Affect - Skin Skin Exam: Erythema, Intact, Warm Assessment and Plan - Assessment and Plan (Free Text) Assessment: Left sided abdominal pain On admission: * Afebrile, with leuckocytosis: WBC: 13.5 * D/C Cipro 400mg IV Q12H due to adverse cardiac effects and start Zosyn 3.375 Q6H * Flagyl 500mg IV Q8H Continue to monitor with AM LABS Pain with Urination * UA : neg ketones, leuk esterase, blood; positive hyaline casts 11-20 Hypertension Continue home medications: * Vasotec 10mg PO daily * HCTZ 50mg PO daily * Aldactone 25mg PO daily * Lasix 40mg PO daily History of atrial fibrillation Continue home medications: * Cardizem 30mg PO QID * Digoxin 0.125mg PO daily * Amiodarone 200mg PO daily * Continue to monitor with telemetry History of CHF acute on chronic dilated cardiomyopathy ECHO (02/2017): LV systolic function severely reduced. (EF about 25%) LV mildly dilated. Severe global hypokinesis of LV. Negative for endocarditis. Continue home medications: * Lasix 80mg PO BID (increased on 08/12) * HCTZ 50mg PO daily * Aldactone 25mg PO daily * Fluid restriction * Daily weights History of coronary artery disease Continue home medications: * Aspirin 81mg PO daily * Crestor 2.5mg PO daily History of COPD Continue home medications: * Ventolin 2 PUFF BID * Singulair 10 mg PO HS Anxiety and depression Prozac 40mg po daily Xanax 1mg po Q6H PRN Tobacco use disorder Encourage smoking cessation Nicotine patch Prophylactic measure SCDs contraindicated due to b/l LE edema Heparin 5,000 units SC q8h Protonix 40mg PO daily Heart healthy diet
[2017-08-12] MEDS: Digoxin 125 mcg (0.125 mg) Tab PO SCH (18:09)
[2017-08-12 18:11] VITALS: PULSE 83
[2017-08-12] MEDS: Rosuvastatin Calcium 2.5 mg Tab PO SCH (21:31)
[2017-08-13] MEDS: Oxycodone/Acetaminophen 5/325 mg Tab PO PRN ×2 (04:04→10:39)
[2017-08-13] MEDS: metroNIDAZOLE IV 500 mg/100 ml 500 MG/100 ML BAG IVPB SCH (05:32)
[2017-08-13] MEDS: Piperacillin/Tazobact 3.375 GM in Sodium Chloride 100 ML IVPB SCH ×2 (05:32→10:41)
[2017-08-13 06:24] LABS: BASO # 0.1 K/uL (0.0-0.2); EOS # 0.4 K/uL (0.0-0.7); LYMPH # 1.3 K/uL (1.0-4.3); MEAN CORPUSCULAR HGB CONC 30.5 g/dL (33.0-37.0); MONO # 1.1 K/uL (0.0-0.8); NRBC % 0.1 % (0.0-2.0)
[2017-08-13 06:30] LABS: BASO % 1.1 % (0.0-2.0); EOS % 3.5 % (0.0-4.0); HEMATOCRIT 48.1 % (35.0-51.0); MEAN CELL VOLUME 75.7 fL (80.0-94.0); MEAN CORPUSCULAR HEMOGLOBIN 23.1 pg (27.0-31.0); MEAN PLATELET VOLUME 7.1 fL (7.2-11.7); MONO % 9.7 % (0.0-10.0); RED CELL DISTRIBUTION WIDTH 19.1 % (11.5-14.5); WHITE BLOOD COUNT 11.7 K/uL (4.8-10.8)
[2017-08-13 06:42] LABS: ALB/GLOB RATIO 0.8 (1.0-2.1); ALKALINE PHOSPHATASE 68 U/L (38-126); ALT/SGPT 26 U/L (21-72); AST/SGOT 36 U/L (17-59); BILIRUBIN,TOTAL 0.6 mg/dL (0.2-1.3); BLOOD UREA NITROGEN 28 mg/dL (9-20); CALCIUM 9.4 mg/dl (8.6-10.4); CARBON DIOXIDE 36 mmol/L (22-30); CHLORIDE 90 mmol/L (98-107); GFR AFRICAN-AMERICAN > 60; GLUCOSE,RANDOM 70 mg/dL (75-110); MAGNESIUM 2.1 mg/dL (1.6-2.3); PHOSPHOROUS 3.8 mg/dL (2.5-4.5); POTASSIUM 5.1 mmol/L (3.6-5.2); SODIUM 140 mmol/L (132-148); TOTAL PROTEIN 8.7 g/dL (6.3-8.3)
[2017-08-13 08:24] VITALS: PULSE 62; RESP 18; TEMP 98; O2SAT 98
[2017-08-13] MEDS: Fluticasone-Salmeterol 100-50mcg Diskus INH SCH (09:17)
[2017-08-13] MEDS: Albuterol-Ipratrop 3 mg / 0.5 (3 ml) UD INH PRN (09:17)
[2017-08-13] MEDS: Pantoprazole 40 mg EC Tab PO SCH (10:38)
[2017-08-13] MEDS: Bacitracin/Neomycin/Polymyxin Oint(30GM) TOP SCH (10:43)
[2017-08-13 10:52] VITALS: BP 135/89
--- NOTE | 2017-08-13 13:17 | CP.PCM.DIS ---
Provider - Provider Date of Admission: 08/09/17 02:35 Attending physician: Roque Ocampo Jr, MD Time Spent in preparation of Discharge (in minutes): 45 Hospital Course - Lab Results Lab Results: Micro Results 08/09/17 14:00 Urine,Clean Catch Urine Culture - Final No Growth (<1,000 CFU/ML) Most Recent Lab Values WBC 11.7 K/uL (4.8-10.8) H 08/13/17 06:15 RBC 6.35 Mil/uL (4.40-5.90) H 08/13/17 06:15 Hgb 14.7 g/dL (12.0-18.0) 08/13/17 06:15 Hct 48.1 % (35.0-51.0) 08/13/17 06:15 MCV 75.7 fL (80.0-94.0) L 08/13/17 06:15 MCH 23.1 pg (27.0-31.0) L 08/13/17 06:15 MCHC 30.5 g/dL (33.0-37.0) L 08/13/17 06:15 RDW 19.1 % (11.5-14.5) H 08/13/17 06:15 Plt Count 356 K/uL (130-400) 08/13/17 06:15 MPV 7.1 fL (7.2-11.7) L 08/13/17 06:15 Neut % (Auto) 74.7 % (50.0-75.0) 08/13/17 06:15 Lymph % (Auto) 11.0 % (20.0-40.0) L 08/13/17 06:15 Tillman % (Auto) 9.7 % (0.0-10.0) 08/13/17 06:15 Eos % (Auto) 3.5 % (0.0-4.0) 08/13/17 06:15 Baso % (Auto) 1.1 % (0.0-2.0) 08/13/17 06:15 Neut # 8.7 K/uL (1.8-7.0) H 08/13/17 06:15 Lymph # 1.3 K/uL (1.0-4.3) 08/13/17 06:15 Tillman # 1.1 K/uL (0.0-0.8) H 08/13/17 06:15 Eos # 0.4 K/uL (0.0-0.7) 08/13/17 06:15 Baso # 0.1 K/uL (0.0-0.2) 08/13/17 06:15 Neutrophils % (Manual) 63 % (50-75) 08/09/17 00:33 Band Neutrophils % 1 % (0-2) 08/09/17 00:33 Lymphocytes % (Manual) 15 % (20-40) L 08/09/17 00:33 Reactive Lymphs % 1 % (0-0) H 08/09/17 00:33 Monocytes % (Manual) 18 % (0-10) H 08/09/17 00:33 Eosinophils % (Manual) 1 % (0-4) 08/09/17 00:33 Basophils % (Manual) 1 % (0-2) 08/09/17 00:33 Platelet Estimate Normal (NORMAL) 08/09/17 00:33 Sodium 140 mmol/L (132-148) 08/13/17 06:15 Potassium 5.1 mmol/L (3.6-5.2) 08/13/17 06:15 Chloride 90 mmol/L (98-107) L 08/13/17 06:15 Carbon Dioxide 36 mmol/L (22-30) H 08/13/17 06:15 Anion Gap 19 (10-20) 08/13/17 06:15 BUN 28 mg/dL (9-20) H 08/13/17 06:15 Creatinine 1.0 MG/DL (0.8-1.5) 08/13/17 06:15 Est GFR ( Amer) > 60 08/13/17 06:15 Est GFR (Non-Af Amer) > 60 08/13/17 06:15 Random Glucose 70 mg/dL (75-110) L 08/13/17 06:15 Calcium 9.4 mg/dl (8.6-10.4) 08/13/17 06:15 Phosphorus 3.8 mg/dL (2.5-4.5) 08/13/17 06:15 Magnesium 2.1 mg/dL (1.6-2.3) 08/13/17 06:15 Total Bilirubin 0.6 mg/dL (0.2-1.3) 08/13/17 06:15 AST 36 U/L (17-59) 08/13/17 06:15 ALT 26 U/L (21-72) 08/13/17 06:15 Alkaline Phosphatase 68 U/L (38-126) 08/13/17 06:15 Troponin I 0.0730 ng/mL (0.00-0.120) 08/09/17 03:08 NT-Pro-B Natriuret Pep 7850 pg/mL (0-450) H 08/09/17 00:33 Total Protein 8.7 g/dL (6.3-8.3) H 08/13/17 06:15 Albumin 3.9 g/dL (3.5-5.0) 08/13/17 06:15 Globulin 4.8 gm/dL (2.2-3.9) H 08/13/17 06:15 Albumin/Globulin Ratio 0.8 (1.0-2.1) L 08/13/17 06:15 Lipase 221 U/L (23-300) 08/09/17 00:33 Urine Color Yellow (YELLOW) 08/09/17 03:56 Urine Clarity Clear (Clear) 08/09/17 03:56 Urine pH 6.0 (5.0-8.0) 08/09/17 03:56 Ur Specific Stephen 1.015 (1.003-1.030) 08/09/17 03:56 Urine Protein Negative mg/dL (NEGATIVE) 08/09/17 03:56 Urine Glucose (UA) Normal mg/dL (Normal) 08/09/17 03:56 Urine Ketones Negative mg/dL (NEGATIVE) 08/09/17 03:56 Urine Blood Negative (NEGATIVE) 08/09/17 03:56 Urine Nitrate Negative (NEGATIVE) 08/09/17 03:56 Urine Bilirubin Negative (NEGATIVE) 08/09/17 03:56 Urine Urobilinogen 4.0 mg/dL (0.2-1.0) 08/09/17 03:56 Ur Leukocyte Esterase Neg Nancie/uL (Negative) 08/09/17 03:56 Urine WBC (Auto) 1 /hpf (0-5) 08/09/17 03:56 Urine RBC (Auto) 2 /hpf (0-3) 08/09/17 03:56 Hyaline Casts 11-20 /lpf (0-2) H 08/09/17 03:56 Urine Opiates Screen Negative (NEGATIVE) 08/09/17 03:56 Urine Methadone Screen Negative (NEGATIVE) 08/09/17 03:56 Ur Barbiturates Screen Negative (NEGATIVE) 08/09/17 03:56 Ur Phencyclidine Scrn Negative (NEGATIVE) 08/09/17 03:56 Ur Amphetamines Screen Negative (NEGATIVE) 08/09/17 03:56 U Benzodiazepines Scrn Positive (NEGATIVE) 08/09/17 03:56 U Oth Cocaine Metabols Positive (NEGATIVE) 08/09/17 03:56 U Cannabinoids Screen Negative (NEGATIVE) 08/09/17 03:56 - Hospital Course Hospital Course: "CC: Abdominal Pain HPI: Patient is a 47 year old male with past medical history of HTN, CAD, CHF, Afib, COPD, ARLENE, Herniated discs L-spine, Bipolar/Depression, Asthma, hx of splenic infarct/abscess, who presents to the ED with complains of abdominal pain. Patient says he was here 1 week ago with similar symptoms and was treated with antibiotics for splenic abscess. Patient was sent home on Cipro and Flagyl and says that he felt much better until today when the pain came back. Patient says he was compliant with abx but he did not take any of his other medications today. Patient describes the pain as 8/10 intensity and localized to the LLQ and LUQ. He c/o associated non bloody diarrhea of 2 days duration. Patient is also complaining of mid sternal chest pain, SOB on exertion, cough productive of clear sputum, b/l LE edema, pain, and erythema that started today. Patient also notes that his "kidneys burn" when is urinating. Patient denies increased frequency and hematuria. Patient denies headache, changes in vision, tinnitus, sore throat, wheezing, vomiting, blood in stool, incontinence, syncope, and rash. " Left sided abdominal pain: Patient was afebrile on admission with leukocytosis - WBC: 13.5. Patient was treated with Zosyn 3.375 Q6H (Cipro 400mg IV Q12H discontinued due to adverse cardiac effects) and Flagyl 500mg IV Q8H. Patient was monitored with AM labs. Pain with urination: 08/09/17 urinalysis demonstrated neg ketones, leuk esterase. Blood positive for hyaline casts 11-20. Hypertension: Patient continued home medications: Vasotec 10mg PO daily, HCTZ 50mg PO daily, Aldactone 25mg PO daily, and Lasix 40mg PO daily. History of atrial fibrillation: Patient continued home medications: Cardizem 30mg PO QID, Digoxin 0.125mg PO daily, Amiodarone 200mg PO daily, and was monitored with telemetry. History of Dilated CHF: Patient continued home medications: Lasix 40mg PO daily , HCTZ 50mg PO daily, Aldactone 25mg PO daily, fluid restriction, and daily weights. Patient treated with increased Lasix 80 mg IV BID on 08/12 and 08/13. History of coronary artery disease: Patient continued home medications: Aspirin 81mg PO Daily, Crestor 2.5mg PO daily History of COPD: Patient continued home medications: Ventolin 2 PUFF BID, Singulair 10mg PO HS. Anxiety and depression: Patient was treated with Prozac 40mg PO daily and Xanax 1mg PO Q6H PRN Tobacco use disorder: Patient was counseled about smoking cessation and treated with nicotine patch. Prophylactic treatment: Patient was treated with Heparin 5,000 units SC q8h, Protonix 40mg PO daily, and a heart healthy diet. Patient signed out AMA. Patient aware of the risks including but not limited to : worsening heart failure, shortness of breath, infection, and . This is a summary of the patient's hospital course. Please see chart for details. Discharge Exam - Head Exam Head Exam: ATRAUMATIC, NORMAL INSPECTION, NORMOCEPHALIC - Eye Exam Eye Exam: EOMI, Normal appearance - ENT Exam ENT Exam: Mucous Membranes Moist - Neck Exam Neck exam: Full Rom - Respiratory Exam Respiratory Exam: Clear to PA & Lateral, NORMAL BREATHING PATTERN, UNREMARKABLE - Cardiovascular Exam Cardiovascular Exam: Irregular Rhythm - GI/Abdominal Exam GI & Abdominal Exam: Distended, Normal Bowel Sounds - Extremities Exam Extremities exam: calf tenderness, pedal edema, tenderness Additional comments: b/l LE edema and erythema - Neurological Exam Neurological exam: Alert, Oriented x3 - Psychiatric Exam Psychiatric exam: Agitated, Anxious - Skin Skin Exam: Erythema, Warm Discharge Plan - Follow Up Plan Condition: FAIR Disposition: AGAINST MEDICAL ADVICE
--- NOTE | 2017-08-13 16:05 | PCM.HF ---
Heart Failure Core Measure - Heart Failure Ejection Fraction: Less Than 40 % SHONDA Inhibitor Prescribed: No Contraindication/Reason for not providing: oN arb Beta-Yonis Prescribed: Carvedilol Angiotensin II Receptor Yonis Prescribed: Yes AnticoagulationTherapy for Atrial Fibrillation/Atrialflutter: No Contraindication/Reason for not providing: no hx of afib Aldosterone Antagonist Prescribed: Yes Hydralazine Nitrate Prescribed: Yes Implantable Cardioverter Defibrillator Therapy: No Contraindication/Reason for not providing: pt on vest Cardiac Resynchronization Therapy Prescribed: No Contraindication/Reason for not providing: on vest - Follow up Will be discharged to: Home Follow Up Date (must be within 7 days from discharge): 08/17/17 Follow Up Time: 09:00
== END 2017-08-13 12:48 | disposition left against medical advice (07) | DRG 293 ==
LOC: C.ER 22:58 → C.6T 08-09 02:35
PROVIDERS: ADMIT Internal Medicine; ATTEND Internal Medicine
DX: I11.0 Hypertensive heart disease with heart failure (principal); J43.9 Emphysema, unspecified; I42.0 Dilated cardiomyopathy; I48.91 Unspecified atrial fibrillation; F41.9 Anxiety disorder, unspecified; I50.9 Heart failure, unspecified; J45.909 Unspecified asthma, uncomplicated; F31.9 Bipolar disorder, unspecified; E78.00 Pure hypercholesterolemia, unspecified; I25.10 Atherosclerotic heart disease of native coronary artery without angina pectoris; G47.33 Obstructive sleep apnea (adult) (pediatric); Z95.5 Presence of coronary angioplasty implant and graft; F14.90 Cocaine use, unspecified, uncomplicated; Z76.5 Malingerer [conscious simulation]; M51.26 Other intervertebral disc displacement, lumbar region; F17.210 Nicotine dependence, cigarettes, uncomplicated; D73.3 Abscess of spleen; R30.9 Painful micturition, unspecified

== ENCOUNTER 2017-08-15 22:53 | Inpatient (IN) | payer MEDICARE, MEDICAID ==
[2017-08-15 22:54] VITALS: BMI 38.7
[2017-08-16 01:14] LABS: INR 1.2
[2017-08-16 01:16] LABS: BASO # 0.1 K/uL (0.0-0.2); BASO % 0.9 % (0.0-2.0); EOS # 0.1 K/uL (0.0-0.7); EOS % 0.7 % (0.0-4.0); HEMATOCRIT 48.5 % (35.0-51.0); LYMPH # 1.3 K/uL (1.0-4.3); LYMPH % 12.9 % (20.0-40.0); MEAN CORPUSCULAR HEMOGLOBIN 23.5 pg (27.0-31.0); MEAN CORPUSCULAR HGB CONC 31.3 g/dL (33.0-37.0); MEAN PLATELET VOLUME 7.6 fL (7.2-11.7); MONO # 0.9 K/uL (0.0-0.8); MONO % 9.1 % (0.0-10.0); NRBC % 0.1 % (0.0-2.0); RED CELL DISTRIBUTION WIDTH 19.2 % (11.5-14.5); WHITE BLOOD COUNT 9.9 K/uL (4.8-10.8)
[2017-08-16 01:18] LABS: ALB/GLOB RATIO 0.9 (1.0-2.1); ALCOHOL SERUM < 10 mg/dl (0-10); ALKALINE PHOSPHATASE 69 U/L (38-126); ALT/SGPT 26 U/L (21-72); AST/SGOT 44 U/L (17-59); BILIRUBIN,TOTAL 0.9 mg/dL (0.2-1.3); BLOOD UREA NITROGEN 25 mg/dL (9-20); CALCIUM 9.9 mg/dl (8.6-10.4); CARBON DIOXIDE 30 mmol/L (22-30); CHLORIDE 92 mmol/L (98-107); GFR AFRICAN-AMERICAN > 60; GLUCOSE,RANDOM 163 mg/dL (75-110); MAGNESIUM 1.9 mg/dL (1.6-2.3); POTASSIUM 4.1 mmol/L (3.6-5.2); SODIUM 137 mmol/L (132-148); TOTAL PROTEIN 8.8 g/dL (6.3-8.3)
[2017-08-16 04:16] LABS: RBC URINE < 1 /hpf (0-3); URINE BILIRUBIN NEGATIVE (NEGATIVE); URINE BLOOD NEGATIVE (NEGATIVE); URINE COLOR Yellow (YELLOW); URINE GLUCOSE (UA) NORMAL (Normal); URINE KETONE NEGATIVE (NEGATIVE); URINE LEUKOCYTE ESTERASE NEG Leu/uL (Negative); URINE PROTEIN NEGATIVE (NEGATIVE); URINE UROBILINOGEN NORMAL mg/dL (0.2-1.0); WBC URINE 2 /hpf (0-5)
--- NOTE | 2017-08-16 05:47 | C.PDOC ---
History Of Present Illness Pt was admitted to this hospital and signed out AMA 2 days ago. He returns because his symptoms have worsened. Time Seen by Provider: 08/16/17 00:22 Chief Complaint (Nursing): Shortness Of Breath History Per: Patient Onset/Duration Of Symptoms: Days (2) Current Symptoms Are (Timing): Worse Current Respiratory Medications: See Home Med List Severity: Moderate Reports Recently: Hospitalized Additional History Per: Prior Records Past Medical History Reviewed: Historical Data, Nursing Documentation, Vital Signs Vital Signs: Last Vital Signs Temp 99.7 F H 08/15/17 23:00 Pulse 100 H 08/15/17 23:00 Resp 18 08/16/17 01:09 BP 140/84 08/15/17 23:06 Pulse Ox 97 08/16/17 05:52 - Medical History PMH: Anxiety, Arthritis, Asthma, Atrial Fibrillation, Back Problems, Bipolar Disorder, CAD, Cardia Arrhythmia, CHF, COPD, Depression, Emphysema, HTN, Hypercholesterolemia, Peripheral Edema, Sleep Apnea, Chronic Pain (Lower Back Pain) Surgical History: Appendectomy (2008), Coronary Stent (2008 - 2012 4 stents) - [facility] Procedures CORONAR ARTERIOGR-2 CATH (07/06/13) DRAINAGE OF SPLEEN, PERCUTANEOUS APPROACH (03/05/17) INJECT/INFUSE NEC (02/22/14) LEFT HEART CARDIAC CATH (07/06/13) LT HEART ANGIOCARDIOGRAM (07/06/13) NEBULIZER THERAPY (03/28/14) NON-INVASIVE MECHANICAL VENTILATION (03/26/15) TRANSFUSE NONAUT FROZEN PLASMA IN PERIPH VEIN, PERC (02/21/17) Family History: States: Unknown Family Hx, CAD, Diabetes - Social History Hx Tobacco Use: Yes Hx Alcohol Use: No (Socially) Hx Substance Use: Yes (cocaine) - Immunization History Hx Tetanus Toxoid Vaccination: Yes Hx Influenza Vaccination: Yes Hx Pneumococcal Vaccination: Yes (08/2014) Review Of Systems Except As Marked, All Systems Reviewed And Found Negative. Constitutional: Negative for: Weakness Respiratory: Positive for: Shortness of Breath. Negative for: Hemoptysis Gastrointestinal: Positive for: Abdominal Pain. Negative for: Vomiting Musculoskeletal: Negative for: Neck Pain Neurological: Negative for: Weakness, Numbness Physical Exam - Physical Exam Appears: No Acute Distress, Chronically Ill Skin: Warm, Dry, Rash Head: Atraumatic, Normacephalic Eye(s): bilateral: PERRL, EOMI Neck: Normal ROM, Supple Cardiovascular: Rhythm Irregular Respiratory: No Accessory Muscle Use, Rales (at bases) Gastrointestinal/Abdominal: Soft Extremity: Normal ROM Neurological/Psych: Oriented x3, Normal Motor, Normal Sensation ED Course And Treatment - Laboratory Results Result Diagrams: 08/16/17 01:02 08/16/17 01:02 Lab Interpretation: Abnormal Interpretation Of Abnormal: Elevated BNP. ECG: Interpreted By Me, Viewed By Me ECG Rhythm: Atrial Fibrillation, Nonspecific Changes ECG Interpretation: No Changes From Prior Rate From EC O2 Sat by Pulse Oximetry: 97 Pulse Ox Interpretation: Normal - Radiology CXR: Interpreted by Me, Viewed By Me CXR Interpretation: Yes: No Acute Disease, Other (CHF) - Physician Consult Information Physician Contacted: Roque Ocampo Jr. (PMD) Outcome Of Conversation: He did not call back after several attempts. Progress - Interventions Interventions:: Observation, Oxygen - Medications Administered Intravenous: Diuretic - Data Reviewed Data Reviewed: Lab, Diagnostic imaging, EKG, Old records - Patient Status Patient status: Partially improved - Continuity of Care Discussed patient case with:: Patient, ED Nurse Disposition Discussed With : Aristides Plasencia Comment: He accepted pt on hospitalist service as Dr. Ocampo can not be reached. Doctor Will See Patient In The: Hospital Counseled Patient/Family Regarding: Studies Performed, Diagnosis - Disposition Disposition: HOSPITALIZED Disposition Time: 05:54 Condition: FAIR - Clinical Impression Clinical Impression: CHF exacerbation
--- NOTE | 2017-08-16 06:45 | CP.PCM.HP ---
<Virgilio Parrssmark Conway - Last Filed: 08/16/17 07:33> History of Present Illness - History of Present Illness History of Present Illness: CC: "Shortness of breath" HPI: 47 year old male with past medical history of HTN, CAD, CHF, Afib, COPD, ARLENE, Herniated discs L-spine, Bipolar/Depression, Asthma, hx of splenic infarct/ abscess, who presents to the emergency room with with shortness of breath. Patient also states he has abdominal pain in his spleen area which comes and goes. Patient states his pain is an 8/10 and he cannot sleep on his side because it increases his pain. Patient also states he has nausea, fever, sweating, shortness of breath, and leg swelling. PMHx: HTN, CAD, CHF, Afib, COPD, ARLENE, Herniated discs L-spine, Bipolar/ Depression, Asthma, hx of splenic infarct/abscess (As per chart review) PSHx: Appendectomy (2008), Coronary stents x4 ([id number]) (As per chart review) FHx: Denies Medications: Diltiazem, ASA, digoxin, enalapril, HCTZ, Lasix, ventolin, singulair, Prozac, crestor, Xanax, spironolactone, amiodarone Allergies:Apixaban, clopidogrel, enoxaparin, Morphine Social history: Former smoker; states the last time he snorted cocaine was Present on Admission - Present on Admission Any Indicators Present on Admission: No Review of Systems - Review of Systems Systems not reviewed;Unavailable: Respiratory Distress - Constitutional Constitutional: absent: Headache - EENT Eyes: absent: Blurred Vision, Change in Vision - Cardiovascular Cardiovascular: Dyspnea. absent: Chest Pain, Palpitations - Respiratory Respiratory: Dyspnea - Gastrointestinal Gastrointestinal: Abdominal Pain, Nausea. absent: Constipation, Diarrhea, Vomiting - Genitourinary Genitourinary: absent: Dysuria, Hematuria - Musculoskeletal Musculoskeletal: absent: Numbness, Tingling - Integumentary Integumentary: Sores - Neurological Neurological: absent: Dizziness, Numbness, Headaches, Tingling - Psychiatric Psychiatric: Anxiety - Endocrine Endocrine: Excessive Sweating. absent: Fatigue, Palpitations Past Patient History - Infectious Disease Hx of Infectious Diseases: None - Tetanus Immunizations Tetanus Immunization: Up to Date - Past Medical History & Family History Past Medical History?: Yes - Past Social History Smoking Status: Light Smoker < 10 Cigarettes Daily - CARDIAC Hx Atrial Fibrillation: Yes Hx Cardia Arrhythmia: Yes Hx Congestive Heart Failure: Yes Hx Hypercholesterolemia: Yes Hx Hypertension: Yes Hx Peripheral Edema: Yes - PULMONARY Hx Asthma: Yes Hx Chronic Obstructive Pulmonary Disease (COPD): Yes Hx Emphysema: Yes Hx Sleep Apnea: Yes - NEUROLOGICAL Hx Neurological Disorder: No - HEENT Hx HEENT Problems: No - RENAL Hx Chronic Kidney Disease: No - ENDOCRINE/METABOLIC Hx Endocrine Disorders: No - HEMATOLOGICAL/ONCOLOGICAL Hx Blood Disorders: Yes Other/Comment: MRSA Hx - INTEGUMENTARY Hx Dermatological Problems: Yes - MUSCULOSKELETAL/RHEUMATOLOGICAL Hx Arthritis: Yes - GASTROINTESTINAL Hx Gastrointestinal Disorders: Yes Other/Comment: Splenic Hematoma - GENITOURINARY/GYNECOLOGICAL Hx Genitourinary Disorders: No - PSYCHIATRIC Hx Anxiety: Yes Hx Bipolar Disorder: Yes Hx Depression: Yes Hx Substance Use: Yes (cocaine) - SURGICAL HISTORY Hx Appendectomy: Yes (2008) Hx Coronary Stent: Yes (2008 - 2012 4 stents) - ANESTHESIA Hx Anesthesia: Yes Hx Anesthesia Reactions: No Hx Malignant Hyperthermia: No Meds Allergies/Adverse Reactions: Allergies Allergy/AdvReac Type Severity Reaction Status Date / Time apixaban [From Eliquis] Allergy RASH Verified 08/15/17 23:03 clopidogrel bisulfate Allergy RASH Verified 08/15/17 23:03 [From Plavix] enoxaparin sodium Allergy RASH Verified 08/15/17 23:03 [From Lovenox] morphine Allergy RASH Verified 08/15/17 23:03 Physical Exam - Constitutional Appears: In Acute Distress (3L NC) Additional comments: obese - Head Exam Head Exam: ATRAUMATIC, NORMAL INSPECTION, NORMOCEPHALIC - Eye Exam Eye Exam: EOMI, Normal appearance, PERRL Pupil Exam: NORMAL ACCOMODATION - ENT Exam ENT Exam: Mucous Membranes Moist - Respiratory Exam Respiratory Exam: Clear to Auscultation Bilateral, NORMAL BREATHING PATTERN - Cardiovascular Exam Cardiovascular Exam: absent: REGULAR RHYTHM (afib) - GI/Abdominal Exam GI & Abdominal Exam: Normal Bowel Sounds, Soft, Tenderness (right upper quadrant tenderness) - Extremities Exam Extremities exam: Negative for: normal inspection (ulcer lesions on bilateral lower extremity ), pedal edema, tenderness - Neurological Exam Neurological exam: Alert, Oriented x3 - Psychiatric Exam Psychiatric exam: Anxious - Skin Skin Exam: Dry, Erythema, Warm Additional comments: track aelx bilateral lower extremity Results - Vital Signs Recent Vital Signs: Last Vital Signs Temp 97.1 F L 08/16/17 06:05 Pulse 90 08/16/17 06:05 Resp 18 08/16/17 06:05 BP 120/81 08/16/17 06:05 Pulse Ox 100 08/16/17 06:05 - Labs Result Diagrams: 08/16/17 01:02 08/16/17 01:02 Labs: Laboratory Results - last 24 hr 08/16/17 08/16/17 08/16/17 01:02 01:02 01:02 WBC 9.9 RBC 6.47 H Hgb 15.2 Hct 48.5 MCV 75.0 L MCH 23.5 L MCHC 31.3 L RDW 19.2 H Plt Count 324 MPV 7.6 Neut % (Auto) 76.4 H Lymph % (Auto) 12.9 L [place] % (Auto) 9.1 Eos % (Auto) 0.7 Baso % (Auto) 0.9 Neut # 7.5 H Lymph # 1.3 [place] # 0.9 H Eos # 0.1 Baso # 0.1 PT 13.8 H INR 1.2 APTT 35 H Sodium 137 Potassium 4.1 Chloride 92 L Carbon Dioxide 30 Anion Gap 19 BUN 25 H Creatinine 1.0 Est GFR ( Amer) > 60 Est GFR (Non-Af Amer) > 60 Random Glucose 163 H Calcium 9.9 Magnesium 1.9 Total Bilirubin 0.9 AST 44 ALT 26 Alkaline Phosphatase 69 Troponin I 0.0610 NT-Pro-B Natriuret Pep 4290 H Total Protein 8.8 H Albumin 4.1 Globulin 4.7 H Albumin/Globulin Ratio 0.9 L Lipase 141 Urine Color Urine Clarity Urine pH Ur Specific [place] Urine Protein Urine Glucose (UA) Urine Ketones Urine Blood Urine Nitrate Urine Bilirubin Urine Urobilinogen Ur Leukocyte Esterase Urine WBC (Auto) Urine RBC (Auto) Ur Squamous Epith Cells Hyaline Casts Digoxin Urine Opiates Screen Urine Methadone Screen Ur Barbiturates Screen Ur Phencyclidine Scrn Ur Amphetamines Screen U Benzodiazepines Scrn U Oth Cocaine Metabols U Cannabinoids Screen Alcohol, Quantitative < 10 08/16/17 08/16/17 08/16/17 01:02 04:06 04:06 WBC RBC Hgb Hct MCV MCH MCHC RDW Plt Count MPV Neut % (Auto) Lymph % (Auto) [place] % (Auto) Eos % (Auto) Baso % (Auto) Neut # Lymph # [place] # Eos # Baso # PT INR APTT Sodium Potassium Chloride Carbon Dioxide Anion Gap BUN Creatinine Est GFR ( Amer) Est GFR (Non-Af Amer) Random Glucose Calcium Magnesium Total Bilirubin AST ALT Alkaline Phosphatase Troponin I NT-Pro-B Natriuret Pep Total Protein Albumin Globulin Albumin/Globulin Ratio Lipase Urine Color Yellow Urine Clarity Clear Urine pH 7.0 Ur Specific [place] 1.011 Urine Protein Negative Urine Glucose (UA) Normal Urine Ketones Negative Urine Blood Negative Urine Nitrate Negative Urine Bilirubin Negative Urine Urobilinogen Normal Ur Leukocyte Esterase Neg Urine WBC (Auto) 2 Urine RBC (Auto) < 1 Ur Squamous Epith Cells < 1 Hyaline Casts 6-10 H Digoxin < 0.4 L Urine Opiates Screen Negative Urine Methadone Screen Negative Ur Barbiturates Screen Negative Ur Phencyclidine Scrn Negative Ur Amphetamines Screen Negative U Benzodiazepines Scrn Positive U Oth Cocaine Metabols Positive U Cannabinoids Screen Negative Alcohol, Quantitative Assessment & Plan - Assessment and Plan (Free Text) Assessment: Left sided abdominal pain On admission: * Afebrile, WBC: 9.9 Hypertension Continue home medications: * Vasotec 10mg PO daily * HCTZ 50mg PO daily * Aldactone 25mg PO daily * Lasix 40mg PO daily History of atrial fibrillation Continue home medications: * Cardizem 30mg PO QID * Digoxin 0.125mg PO daily * Amiodarone 200mg PO daily * Continue to monitor with telemetry Cardiology Consult: Dr. Griffin --> help appreciated History of CHF ECHO (02/2017): LV systolic function severely reduced. LV mildly dilated. Severe global hypokinesis of LV. Negative for endocarditis. Continue home medications: * Lasix 40mg PO daily * HCTZ 50mg PO daily * Aldactone 25mg PO daily * Fluid restriction * Daily weights History of coronary artery disease Continue home medications: * Aspirin 81mg PO daily * Crestor 2.5mg PO daily History of COPD Continue home medications: * Ventolin 2 PUFF BID * Singulair 10 mg PO HS Anxiety and depression Prozac 40mg po daily Xanax 1mg po Q6H PRN Tobacco use disorder Patient stated he has recently quit but because of that it causes his anxiety to increase Nicotine patch Prophylactic measure SCDs contraindicated due to b/l LE edema Pepcid <Aristides Plasencia - Last Filed: 08/16/17 19:04> Results - Vital Signs Recent Vital Signs: Last Vital Signs Temp 98.8 F 08/16/17 17:34 Pulse 69 08/16/17 17:34 Resp 18 08/16/17 17:34 BP 143/95 H 08/16/17 17:34 Pulse Ox 99 08/16/17 17:34 - Labs Result Diagrams: 08/16/17 01:02 08/16/17 01:02 Labs: Laboratory Results - last 24 hr 08/16/17 09:40 Total Creatine Kinase 80 CK-MB (Mass) 4.67 H Troponin I, Quant 0.0600 Assessment & Plan - Date & Time Date: 08/16/17 (I have seen and examined the patient. I agree with the findings and plan of care as documented by Dr. Parr. Patient with chf exacerbation and SOB. Continue home meds. Lasix. Daily weights. I&Os. Consult to cardio. Also with history of atrial fibrillation. Continue home meds. Allergies to multiple anticoagulants. Monitor for acute changes.) Time: 19:02 Attending/Attestation - Attestation I have personally seen and examined this patient.: Yes I have fully participated in the care of the patient.: Yes I have reviewed all pertinent clinical information: Yes
[2017-08-16] MEDS ORDERED: Albuterol HFA 90 mcg/actuation (8 g) INH PRN (07:42)
--- NOTE | 2017-08-16 08:46 | RAD ---
HISTORY: SOB COMPARISON: Comparison is made to 08/09/2017 TECHNIQUE: Chest PA and lateral FINDINGS: LUNGS: Interval improvement in the lungs especially the previously described right basilar opacities since the previous exam PLEURA: No significant pleural effusion identified. No pneumothorax apparent. CARDIOVASCULAR: The cardiac silhouette is mildly enlarged. OSSEOUS STRUCTURES: No significant abnormalities. VISUALIZED UPPER ABDOMEN: Normal. OTHER FINDINGS: None. IMPRESSION: Interval improvement in the lungs since the previous study.
[2017-08-16] MEDS ORDERED: Oxycodone/Acetaminophen 5/325 mg Tab ONE (16:19)
[2017-08-16] MEDS: Oxycodone/Acetaminophen 5/325 mg Tab PO PRN (16:19)
[2017-08-16] MEDS: Digoxin 125 mcg (0.125 mg) Tab PO SCH (18:07)
--- NOTE | 2017-08-16 20:12 | CP.PCM.PN ---
<Xochilt Peterson - Last Filed: 08/16/17 20:09> Subjective - Date & Time of Evaluation Date of Evaluation: 08/16/17 Time of Evaluation: 07:00 - Subjective Subjective: PGY1- Medicine Note- Dr. Ocampo's Service Patient seen and examined at bedside and in no acute distress. Patient worried about his lower extremity edema and says he does not want to lose his legs. Patient denies shortness of breath, abdominal pain, nausea, vomiting, constipation, or diarrhea. Objective - Vital Signs/Intake and Output Vital Signs (last 24 hours): Temp Pulse Resp BP Pulse Ox 98.8 F 69 18 143/95 H 99 08/16/17 17:34 08/16/17 17:34 08/16/17 17:34 08/16/17 17:34 08/16/17 17:34 Intake and Output: 08/16/17 08/17/17 18:59 06:59 Output Total 2800 Balance -2800 - Medications Medications: Current Medications Albuterol (Ventolin Hfa 90 Mcg/Actuation (8 G)) 2 puff INH RBID PRN PRN Reason: Shortness of Breath Alprazolam (Xanax) 1 mg PO Q6H PRN PRN Reason: Anxiety Last Admin: 08/16/17 10:45 Dose: 1 mg Amiodarone HCl (Cordarone) 200 mg PO DAILY [facility] Last Admin: 08/16/17 10:30 Dose: 200 mg Aspirin (Aspirin Chewable) 81 mg PO DAILY [facility] Last Admin: 08/16/17 10:30 Dose: 81 mg Digoxin (Lanoxin) 0.125 mg PO DAILY@1800 [facility] Last Admin: 08/16/17 18:07 Dose: 0.125 mg Diphenhydramine HCl (Benadryl) 25 mg PO Q6 PRN PRN Reason: Itching / Pruritus Last Admin: 08/16/17 16:22 Dose: 25 mg Enalapril Maleate (Vasotec) 10 mg PO DAILY [facility] Last Admin: 08/16/17 10:30 Dose: 10 mg Famotidine (Pepcid) 20 mg PO DAILY [facility] Last Admin: 08/16/17 10:30 Dose: 20 mg Fluoxetine HCl (Prozac) 40 mg PO DAILY [facility] Last Admin: 09/17/17 10:30 Dose: 40 mg Furosemide (Lasix) 40 mg IVP DAILY [facility] Last Admin: 08/16/17 16:50 Dose: Not Given Gabapentin (Neurontin) 300 mg PO TID [facility] Last Admin: 08/16/17 18:07 Dose: 300 mg Hydrochlorothiazide (Microzide) 50 mg PO DAILY [facility] Last Admin: 08/16/17 10:30 Dose: 50 mg Ibuprofen (Motrin Tab) 800 mg PO Q6H PRN PRN Reason: Pain, Mild (1-3) Last Admin: 08/16/17 10:30 Dose: 800 mg Montelukast Sodium (Singulair) 10 mg PO HS [facility] Nicotine (Nicoderm Cq) 1 patch TD DAILY [facility] Last Admin: 08/16/17 10:30 Dose: 1 patch Oxycodone/Acetaminophen (Percocet 5/325 Mg Tab) 2 tab PO Q6H PRN PRN Reason: Pain, severe (8-10) Stop: 08/19/17 16:13 Last Admin: 08/16/17 16:19 Dose: 2 tab Rosuvastatin Calcium (Crestor) 2.5 mg PO [facility] Spironolactone (Aldactone) 25 mg PO DAILY [facility] Last Admin: 08/16/17 10:30 Dose: 25 mg - Labs Labs: PT 13.8 SECONDS (9.7-12.2) H 08/16/17 01:02 INR 1.2 08/16/17 01:02 APTT 35 SECONDS (21-34) H 08/16/17 01:02 - Constitutional Appears: Non-toxic, No Acute Distress, Unkempt - Head Exam Head Exam: ATRAUMATIC, NORMAL INSPECTION, NORMOCEPHALIC - Eye Exam Eye Exam: EOMI, Normal appearance - ENT Exam ENT Exam: Mucous Membranes Moist - Neck Exam Neck Exam: Full ROM. absent: Tenderness - Respiratory Exam Respiratory Exam: Wheezes - Cardiovascular Exam Cardiovascular Exam: Irregular Rhythm - GI/Abdominal Exam GI & Abdominal Exam: Soft, Normal Bowel Sounds - Extremities Exam Extremities Exam: Full ROM, Pedal Edema, Tenderness - Neurological Exam Neurological Exam: Alert, Awake, Oriented x3 - Psychiatric Exam Psychiatric exam: Normal Affect, Normal Mood - Skin Skin Exam: Dry, Erythema, Rash, Warm Assessment and Plan - Assessment and Plan (Free Text) Assessment: Left sided abdominal pain On admission: * Afebrile, WBC: 9.9 Hypertension Continue home medications: * Vasotec 10mg PO daily * HCTZ 50mg PO daily * Aldactone 25mg PO daily * Lasix 40mg PO daily History of atrial fibrillation Continue home medications: * Cardizem 30mg PO QID * Digoxin 0.125mg PO daily * Amiodarone 200mg PO daily * Continue to monitor with telemetry Cardiology Consult: Dr. Griffin --> help appreciated History of CHF ECHO (02/2017): LV systolic function severely reduced. LV mildly dilated. Severe global hypokinesis of LV. Negative for endocarditis. Continue home medications: * Lasix 40mg PO daily * HCTZ 50mg PO daily * Aldactone 25mg PO daily * Fluid restriction * Daily weights History of coronary artery disease Continue home medications: * Aspirin 81mg PO daily * Crestor 2.5mg PO daily History of COPD Continue home medications: * Ventolin 2 PUFF BID * Singulair 10 mg PO HS Anxiety and depression Prozac 40mg po daily Xanax 1mg po Q6H PRN Tobacco use disorder Patient stated he has recently quit but because of that it causes his anxiety to increase Nicotine patch Prophylactic measure SCDs contraindicated due to b/l LE edema Pepcid <Roque Ocampo Jr. - Last Filed: 08/17/17 10:22> Objective - Vital Signs/Intake and Output Vital Signs (last 24 hours): Temp Pulse Resp BP Pulse Ox 97.4 F L 80 16 140/97 H 99 08/17/17 08:00 08/17/17 09:15 08/17/17 08:00 08/17/17 09:25 08/17/17 08:00 Intake and Output: 08/17/17 08/17/17 06:59 18:59 Intake Total 960 Output Total 300 Balance 660 - Medications Medications: Current Medications Albuterol (Ventolin Hfa 90 Mcg/Actuation (8 G)) 2 puff INH RBID PRN PRN Reason: Shortness of Breath Alprazolam (Xanax) 1 mg PO Q6H PRN PRN Reason: Anxiety Last Admin: 08/17/17 05:34 Dose: 1 mg Amiodarone HCl (Cordarone) 200 mg PO DAILY [facility] Last Admin: 08/17/17 09:23 Dose: 200 mg Aspirin (Aspirin Chewable) 81 mg PO DAILY [facility] Last Admin: 08/17/17 09:25 Dose: 81 mg Digoxin (Lanoxin) 0.125 mg PO DAILY@1800 [facility] Last Admin: 08/16/17 18:07 Dose: 0.125 mg Diphenhydramine HCl (Benadryl) 25 mg PO Q6 PRN PRN Reason: Itching / Pruritus Last Admin: 08/17/17 09:25 Dose: 25 mg Enalapril Maleate (Vasotec) 10 mg PO DAILY [facility] Last Admin: 08/17/17 09:40 Dose: Not Given Famotidine (Pepcid) 20 mg PO DAILY [facility] Last Admin: 08/17/17 09:23 Dose: 20 mg Fluoxetine HCl (Prozac) 40 mg PO DAILY [facility] Last Admin: 08/17/17 09:26 Dose: 40 mg Furosemide (Lasix) 40 mg IVP DAILY [facility] Last Admin: 08/17/17 09:25 Dose: 40 mg Gabapentin (Neurontin) 300 mg PO TID [facility] Last Admin: 08/17/17 09:22 Dose: 300 mg Hydrochlorothiazide (Microzide) 50 mg PO DAILY [facility] Last Admin: 08/17/17 09:25 Dose: 50 mg Ibuprofen (Motrin Tab) 800 mg PO Q6H PRN PRN Reason: Pain, Mild (1-3) Last Admin: 08/16/17 10:30 Dose: 800 mg Montelukast Sodium (Singulair) 10 mg PO HS [facility] Last Admin: 08/16/17 21:32 Dose: 10 mg Nicotine (Nicoderm Cq) 1 patch TD DAILY [facility] Last Admin: 08/17/17 09:23 Dose: 1 patch Oxycodone/Acetaminophen (Percocet 5/325 Mg Tab) 2 tab PO Q6H PRN PRN Reason: Pain, severe (8-10) Stop: 08/19/17 16:13 Last Admin: 08/17/17 09:23 Dose: 2 tab Rosuvastatin Calcium (Crestor) 2.5 mg PO HS [facility] Last Admin: 08/16/17 21:32 Dose: 2.5 mg Spironolactone (Aldactone) 25 mg PO DAILY [facility] Last Admin: 08/17/17 09:23 Dose: 25 mg - Labs Labs: PT 13.8 SECONDS (9.7-12.2) H 08/16/17 01:02 INR 1.2 08/16/17 01:02 APTT 35 SECONDS (21-34) H 08/16/17 01:02 Attending/Attestation - Attestation I have personally seen and examined this patient.: Yes I have fully participated in the care of the patient.: Yes I have reviewed all pertinent clinical information, including history, physical exam and plan: Yes Notes (Text): 08/17/17 10:22 Agree with resident note and plan of care
[2017-08-16] MEDS: Rosuvastatin Calcium 2.5 mg Tab PO SCH (21:32)
[2017-08-17] MEDS: Oxycodone/Acetaminophen 5/325 mg Tab PO PRN ×4 (00:36→22:01)
--- NOTE | 2017-08-17 06:42 | CON ---
DATE: REASON FOR CONSULTATION: Shortness of breath, leg swelling, and sharp chest discomfort. HISTORY OF PRESENT ILLNESS: The patient is a 47 years old male who has extensive past and present medical history, has history of chronic atrial fibrillation, history of coronary artery disease status post coronary intervention. The most recent one was few years ago. The patient has seen numerous cardiologists. He mentioned to me Dr. Herron, Dr. Mckinney, Dr. Guerra, and Dr. West and he was finally referred to Dr. Morgan whom he had seen in [facility], but did not see him as an outpatient and the patient was given the option of continuing the care of any of the cardiologists that he mentioned; however, he asked me to take care of him in this admission. The patient was recently diagnosed with splenic abscess and for this reason, the patient was taken off anticoagulation. According to him, the patient has cardiomyopathy and has history of bipolar disorder. SOCIAL HISTORY: Former smoker. MEDICATIONS: Aldactone 25 mg once a day, aspirin 81 mg once a day, amiodarone 200 mg daily, Crestor 2.5 mg once a day, digoxin 0.125 mg p.o. daily, Lasix 40 mg p.o. daily, hydrochlorothiazide 50 mg once a day, gabapentin 20 mg daily, Nicoderm patch once daily, Singulair 10 mg at bedtime, Vasotec 10 mg once a day, and albuterol inhaler q.6 hours. REVIEW OF SYSTEMS: No nausea or vomiting. No fever or chills. No dizziness or syncope. PHYSICAL EXAMINATION: GENERAL: The patient is a middle-aged male who does not appear to be in acute distress. VITAL SIGNS: Blood pressure 152/90, heart rate 90, temperature 97.1, and respirations 18. HEENT: Normocephalic. NECK: No JVD. CHEST: Bilateral rhonchi. HEART: S1 and S2 are regular. ABDOMEN: Soft. EXTREMITIES: Pitting edema +2 with redness and chronic skin changes, possible bilateral leg cellulitis. LABORATORY DATA: Hemoglobin and hematocrit 15.2 and 48.5, white count and platelet count are within normal limits. Urine and drug screen is positive for cocaine and benzodiazepines. SMA-7 within normal limits except for glucose of 163, BUN 25 and chloride 92. Two sets of troponin are negative. BNP was 1290. Lipase is within normal limits. Chest x-ray revealed a mild cardiomegaly with mild CHF. INR is 1.2, PTT is 35. Echocardiograph study performed on 01/2017 revealed a dilated cardiomyopathy with ejection fraction of approximately 25%. Cardiac catheterization performed in 04/[address] 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 The patient was recently evaluated by Dr. Senior and recommended no further intervention on the patient's splenic abscess. EKG revealed atrial fibrillation at rate of 99, incomplete right bundle-branch block, ____ EKG pattern, ST, T-wave abnormality, consider anterolateral ischemia. ASSESSMENT: 1. Chest pain. Myocardial infarction is ruled out. 2. Ischemic cardiomyopathy. 3. Chronic atrial fibrillation. 4. History of the patient's splenic abscess. 5. Uncontrolled diabetes mellitus. 6. Cocaine abuse. CONDITION: Consider Aldactone 25 mg once a day, aspirin 81 mg once a day, amiodarone 200 mg once a day, Crestor 2.5 mg once a day, digoxin 0.125 mg once a day, change Lasix to 40 mg to IV once a day, continue hydrochlorothiazide at 50 mg once a day, and continue Vasotec at 10 mg once a day, and beta-blockers are not advised in view of active cocaine abuse, anticoagulation will be considered after the patient is surgically cleared, as the patient states to me that he had splenic bleeding and required fresh frozen plasma transfusion. Iglesia Griffin MD
--- NOTE | 2017-08-17 10:58 | CP.PCM.PN ---
<Xochilt Peterson - Last Filed: 08/17/17 10:55> Subjective - Date & Time of Evaluation Date of Evaluation: 08/17/17 Time of Evaluation: 07:00 - Subjective Subjective: PGY1- Medicine Note- Dr. Ocampo's Service Patient seen and examined at bedside and in no acute distress. Patient apologized for being rude to the nurses/ staff overnight. Patient denies shortness of breath, abdominal pain, nausea, vomiting, constipation, or diarrhea. Objective - Vital Signs/Intake and Output Vital Signs (last 24 hours): Temp Pulse Resp BP Pulse Ox 97.4 F L 80 16 140/97 H 99 08/17/17 08:00 08/17/17 09:15 08/17/17 08:00 08/17/17 09:25 08/17/17 08:00 Intake and Output: 08/17/17 08/17/17 06:59 18:59 Intake Total 960 Output Total 300 Balance 660 - Medications Medications: Current Medications Albuterol (Ventolin Hfa 90 Mcg/Actuation (8 G)) 2 puff INH RBID PRN PRN Reason: Shortness of Breath Alprazolam (Xanax) 1 mg PO Q6H PRN PRN Reason: Anxiety Last Admin: 08/17/17 05:34 Dose: 1 mg Amiodarone HCl (Cordarone) 200 mg PO DAILY [facility] Last Admin: 08/17/17 09:23 Dose: 200 mg Aspirin (Aspirin Chewable) 81 mg PO DAILY [facility] Last Admin: 08/17/17 09:25 Dose: 81 mg Digoxin (Lanoxin) 0.125 mg PO DAILY@1800 [facility] Last Admin: 08/16/17 18:07 Dose: 0.125 mg Diphenhydramine HCl (Benadryl) 25 mg PO Q6 PRN PRN Reason: Itching / Pruritus Last Admin: 08/17/17 09:25 Dose: 25 mg Enalapril Maleate (Vasotec) 10 mg PO DAILY [facility] Famotidine (Pepcid) 20 mg PO DAILY [facility] Last Admin: 08/17/17 09:23 Dose: 20 mg Fluoxetine HCl (Prozac) 40 mg PO DAILY [facility] Last Admin: 08/17/17 09:26 Dose: 40 mg Furosemide (Lasix) 40 mg IVP DAILY [facility] Last Admin: 08/17/17 09:25 Dose: 40 mg Gabapentin (Neurontin) 300 mg PO TID [facility] Last Admin: 08/17/17 09:22 Dose: 300 mg Hydrochlorothiazide (Microzide) 50 mg PO DAILY [facility] Last Admin: 08/17/17 09:25 Dose: 50 mg Metronidazole (Flagyl) 500 mg in 100 mls @ 100 mls/hr IVPB Q8 [facility] Piperacillin Sod/Tazobactam (Sod 3.375 gm/ Sodium Chloride) 100 mls @ 200 mls/ hr IVPB Q6H [facility] Ibuprofen (Motrin Tab) 800 mg PO Q6H PRN PRN Reason: Pain, Mild (1-3) Last Admin: 08/16/17 10:30 Dose: 800 mg Montelukast Sodium (Singulair) 10 mg PO HS [facility] Last Admin: 08/16/17 21:32 Dose: 10 mg Nicotine (Nicoderm Cq) 1 patch TD DAILY [facility] Last Admin: 08/17/17 09:23 Dose: 1 patch Oxycodone/Acetaminophen (Percocet 5/325 Mg Tab) 2 tab PO Q6H PRN PRN Reason: Pain, severe (8-10) Stop: 08/19/17 16:13 Last Admin: 08/17/17 09:23 Dose: 2 tab Rosuvastatin Calcium (Crestor) 2.5 mg PO HS [facility] Last Admin: 08/16/17 21:32 Dose: 2.5 mg Silver Sulfadiazine (Silvadene 1% 20 Gm) 0 ea TOP DAILY [facility] Spironolactone (Aldactone) 25 mg PO DAILY [facility] Last Admin: 08/17/17 09:23 Dose: 25 mg - Labs Labs: PT 13.8 SECONDS (9.7-12.2) H 08/16/17 01:02 INR 1.2 08/16/17 01:02 APTT 35 SECONDS (21-34) H 08/16/17 01:02 - Constitutional Appears: Non-toxic, No Acute Distress - Head Exam Head Exam: ATRAUMATIC, NORMAL INSPECTION, NORMOCEPHALIC - Eye Exam Eye Exam: EOMI, Normal appearance - ENT Exam ENT Exam: Mucous Membranes Moist - Neck Exam Neck Exam: Full ROM. absent: Tenderness - Respiratory Exam Respiratory Exam: Wheezes, NORMAL BREATHING PATTERN - Cardiovascular Exam Cardiovascular Exam: Irregular Rhythm - GI/Abdominal Exam GI & Abdominal Exam: Soft, Normal Bowel Sounds - Extremities Exam Extremities Exam: Pedal Edema, Tenderness - Neurological Exam Neurological Exam: Alert, Awake, Oriented x3 - Psychiatric Exam Psychiatric exam: Normal Affect, Normal Mood - Skin Skin Exam: Abrasion, Erythema, Warm Assessment and Plan - Assessment and Plan (Free Text) Assessment: Left sided abdominal pain On admission: * Afebrile, WBC: 9.9 Flagyl 500 mg q8h Zosyn 3.375 q6h blood culture and urine culture negative Hypertension Continue home medications: * Vasotec 10mg PO daily * HCTZ 50mg PO daily * Aldactone 25mg PO daily * Lasix 40mg PO daily History of atrial fibrillation Continue home medications: * Cardizem 30mg PO QID * Digoxin 0.125mg PO daily * Amiodarone 200mg PO daily * Continue to monitor with telemetry Cardiology Consult: Dr. Griffin --> help appreciated History of CHF ECHO (02/2017): LV systolic function severely reduced. LV mildly dilated. Severe global hypokinesis of LV. Negative for endocarditis. Continue home medications: * Lasix 40mg PO daily * HCTZ 50mg PO daily * Aldactone 25mg PO daily * Fluid restriction * Daily weights * Silvadene cream for leg wounds History of coronary artery disease Continue home medications: * Aspirin 81mg PO daily * Crestor 2.5mg PO daily History of COPD Continue home medications: * Ventolin 2 PUFF BID * Singulair 10 mg PO HS Anxiety and depression Prozac 40mg po daily Xanax 1mg po Q6H PRN Tobacco use disorder Patient stated he has recently quit but because of that it causes his anxiety to increase Nicotine patch Prophylactic measure SCDs contraindicated due to b/l LE edema Pepcid Management as per Dr. Ocampo <Roque Ocampo Jr. - Last Filed: 08/19/17 15:22> Objective - Vital Signs/Intake and Output Vital Signs (last 24 hours): Temp Pulse Resp BP Pulse Ox 97.7 F 73 20 99/65 L 99 08/19/17 08:05 08/19/17 08:05 08/19/17 08:05 08/19/17 10:54 08/19/17 08:05 Intake and Output: 08/19/17 08/19/17 06:59 18:59 Intake Total 650 Output Total 1600 Balance -950 - Medications Medications: Current Medications Albuterol (Ventolin Hfa 90 Mcg/Actuation (8 G)) 2 puff INH RBID PRN PRN Reason: Shortness of Breath Alprazolam (Xanax) 1 mg PO Q6H PRN PRN Reason: Anxiety Last Admin: 08/19/17 11:02 Dose: 1 mg Amiodarone HCl (Cordarone) 200 mg PO DAILY [facility] Last Admin: 08/19/17 10:54 Dose: Not Given Aspirin (Aspirin Chewable) 81 mg PO DAILY [facility] Last Admin: 08/19/17 10:51 Dose: 81 mg Digoxin (Lanoxin) 0.125 mg PO DAILY@1800 [facility] Last Admin: 08/18/17 17:57 Dose: 0.125 mg Diphenhydramine HCl (Benadryl) 25 mg PO Q6 PRN PRN Reason: Itching / Pruritus Last Admin: 08/19/17 13:18 Dose: 25 mg Enalapril Maleate (Vasotec) 10 mg PO DAILY [facility] Last Admin: 08/19/17 10:52 Dose: Not Given Fluoxetine HCl (Prozac) 40 mg PO DAILY [facility] Last Admin: 08/19/17 10:53 Dose: 40 mg Furosemide (Lasix) 40 mg IVP DAILY [facility] Last Admin: 08/19/17 10:54 Dose: 40 mg Gabapentin (Neurontin) 300 mg PO TID [facility] Last Admin: 08/19/17 13:18 Dose: 300 mg Hydrochlorothiazide (Hydrodiuril) 50 mg PO DAILY [facility] Hydromorphone HCl (Dilaudid) 0.5 mg IVP Q6H PRN PRN Reason: Pain, severe(8-10) [facility] Last Admin: 08/19/17 10:46 Dose: 0.5 mg Metronidazole (Flagyl) 500 mg in 100 mls @ 100 mls/hr IVPB Q8 [facility] Last Admin: 08/19/17 13:22 Dose: Not Given Piperacillin Sod/Tazobactam (Sod 3.375 gm/ Sodium Chloride) 100 mls @ 200 mls/ hr IVPB Q6H [facility] Last Admin: 08/19/17 10:56 Dose: 200 mls/hr Ibuprofen (Motrin Tab) 800 mg PO Q6H PRN PRN Reason: Pain, Mild (1-3) Last Admin: 08/18/17 07:10 Dose: 800 mg Montelukast Sodium (Singulair) 10 mg PO HS [facility] Last Admin: 08/18/17 21:22 Dose: 10 mg Nicotine (Nicoderm Cq) 1 patch TD DAILY [facility] Last Admin: 08/19/17 10:51 Dose: 1 patch Ondansetron HCl (Zofran Inj) 4 mg IVP Q6H PRN PRN Reason: Nausea/Vomiting Last Admin: 08/18/17 14:57 Dose: 4 mg Oxycodone/Acetaminophen (Percocet 5/325 Mg Tab) 2 tab PO Q6H PRN PRN Reason: Pain, severe (8-10) FIRST LINE Stop: 08/19/17 16:13 Last Admin: 08/19/17 13:18 Dose: 2 tab Oxycodone/Acetaminophen (Percocet 5/325 Mg Tab) 2 tab PO Q6H PRN PRN Reason: Pain, severe (8-10) Stop: 08/22/17 17:01 Pantoprazole Sodium (Protonix Inj) 40 mg IVP DAILY [facility] Last Admin: 08/19/17 10:56 Dose: 40 mg Rosuvastatin Calcium (Crestor) 2.5 mg PO HS [facility] Last Admin: 08/18/17 21:22 Dose: 2.5 mg Silver Sulfadiazine (Silvadene 1% 20 Gm) 1 ea TOP Q8H [facility] Last Admin: 08/19/17 13:26 Dose: 1 appl Spironolactone (Aldactone) 25 mg PO DAILY [facility] Last Admin: 08/19/17 10:54 Dose: Not Given - Labs Labs: 08/19/17 06:38 08/19/17 06:38 PT 13.8 SECONDS (9.7-12.2) H 08/16/17 01:02 INR 1.2 08/16/17 01:02 APTT 35 SECONDS (21-34) H 08/16/17 01:02 Attending/Attestation - Attestation I have personally seen and examined this patient.: Yes I have fully participated in the care of the patient.: Yes I have reviewed all pertinent clinical information, including history, physical exam and plan: Yes Notes (Text): 08/19/17 15:22 Agree with resident note and plan of care
[2017-08-17] MEDS: Silver Sulfadiazine 1% Cream (20 gm) TOP SCH (11:00)
[2017-08-17] MEDS: Piperacillin/Tazobact 3.375 GM in Sodium Chloride 100 ML IVPB SCH ×2 (11:55→18:10)
[2017-08-17] MEDS: metroNIDAZOLE IV 500 mg/100 ml 500 MG/100 ML BAG IVPB SCH ×2 (13:20→21:44)
[2017-08-17] MEDS: Digoxin 125 mcg (0.125 mg) Tab PO SCH (17:17)
--- NOTE | 2017-08-17 19:15 | PN ---
DATE: SUBJECTIVE: The patient denies chest pain. He is still experiencing shortness of breath. PHYSICAL EXAMINATION: VITAL SIGNS: Blood pressure 140/97, heart rate 80, temperature 97.4, and respirations 16. HEENT: Normocephalic. CHEST: Bibasilar rhonchi. HEART: S1 and S2 regular. ABDOMEN: Soft. EXTREMITIES: 2+ pitting edema. LABORATORY DATA: Blood cultures negative after 24 hours. No further lab work was done for today. ASSESSMENT: 1. Exacerbation of congestive heart failure. 2. Chronic atrial fibrillation. 3. History of recent splenic abscess. 4. Coronary artery disease with history of coronary stenting in the past. 5. Cocaine abuse. RECOMMENDATIONS: Continue Aldactone 25 mg once a day, aspirin 81 mg once a day, amiodarone 200 mg once a day, Crestor 2.5 mg once a day, IV Flagyl 500 mg intravenously q. 8 hours, Lanoxin 0.125 mg p.o. once a day, Lasix 40 mg intravenously once a day, hydrochlorothiazide at 50 mg daily, IV Zosyn 3.375 g intravenously q. 6 hours, Vasotec 10 mg once a day besides albuterol inhaler. Iglesia Griffin MD
[2017-08-17] MEDS: Rosuvastatin Calcium 2.5 mg Tab PO SCH (21:42)
[2017-08-18] MEDS: Piperacillin/Tazobact 3.375 GM in Sodium Chloride 100 ML IVPB SCH ×5 (00:55→22:22)
[2017-08-18] MEDS: Oxycodone/Acetaminophen 5/325 mg Tab PO PRN ×4 (04:00→21:21)
[2017-08-18] MEDS: metroNIDAZOLE IV 500 mg/100 ml 500 MG/100 ML BAG IVPB SCH ×3 (06:43→21:20)
--- NOTE | 2017-08-18 07:10 | CP.PCM.PN ---
<Xochilt Peterson - Last Filed: 08/18/17 12:37> Subjective - Date & Time of Evaluation Date of Evaluation: 08/18/17 Time of Evaluation: 07:00 - Subjective Subjective: PGY1- Medicine Note- Dr. Ocampo's Service Patient seen and examined at bedside and in no acute distress. Patient complains his legs are burning. Patient denies shortness of breath, abdominal pain, nausea, vomiting, constipation, or diarrhea. Objective - Vital Signs/Intake and Output Vital Signs (last 24 hours): Temp Pulse Resp BP Pulse Ox 98.0 F 75 20 149/96 H 75 L 08/17/17 23:25 08/17/17 23:25 08/17/17 23:25 08/17/17 23:25 08/17/17 23:25 - Medications Medications: Current Medications Albuterol (Ventolin Hfa 90 Mcg/Actuation (8 G)) 2 puff INH RBID PRN PRN Reason: Shortness of Breath Alprazolam (Xanax) 1 mg PO Q6H PRN PRN Reason: Anxiety Last Admin: 08/18/17 01:59 Dose: 1 mg Amiodarone HCl (Cordarone) 200 mg PO DAILY [facility] Last Admin: 08/17/17 09:23 Dose: 200 mg Aspirin (Aspirin Chewable) 81 mg PO DAILY [facility] Last Admin: 08/17/17 09:25 Dose: 81 mg Digoxin (Lanoxin) 0.125 mg PO DAILY@1800 [facility] Last Admin: 08/17/17 17:17 Dose: 0.125 mg Diphenhydramine HCl (Benadryl) 25 mg PO Q6 PRN PRN Reason: Itching / Pruritus Last Admin: 08/18/17 03:59 Dose: 25 mg Enalapril Maleate (Vasotec) 10 mg PO DAILY [facility] Famotidine (Pepcid) 20 mg PO DAILY [facility] Last Admin: 08/17/17 09:23 Dose: 20 mg Fluoxetine HCl (Prozac) 40 mg PO DAILY [facility] Last Admin: 08/17/17 09:26 Dose: 40 mg Furosemide (Lasix) 40 mg IVP DAILY [facility] Last Admin: 08/17/17 09:25 Dose: 40 mg Gabapentin (Neurontin) 300 mg PO TID [facility] Last Admin: 08/17/17 17:17 Dose: 300 mg Hydrochlorothiazide (Microzide) 50 mg PO DAILY [facility] Last Admin: 08/17/17 09:25 Dose: 50 mg Metronidazole (Flagyl) 500 mg in 100 mls @ 100 mls/hr IVPB Q8 [facility] Last Admin: 08/18/17 06:43 Dose: 100 mls/hr Piperacillin Sod/Tazobactam (Sod 3.375 gm/ Sodium Chloride) 100 mls @ 200 mls/ hr IVPB Q6H [facility] Last Admin: 08/18/17 05:30 Dose: 200 mls/hr Ibuprofen (Motrin Tab) 800 mg PO Q6H PRN PRN Reason: Pain, Mild (1-3) Last Admin: 08/16/17 10:30 Dose: 800 mg Montelukast Sodium (Singulair) 10 mg PO [facility] Last Admin: 08/17/17 21:42 Dose: 10 mg Nicotine (Nicoderm Cq) 1 patch TD DAILY [facility] Last Admin: 08/17/17 09:23 Dose: 1 patch Ondansetron HCl (Zofran Inj) 4 mg IVP Q6H PRN PRN Reason: Nausea/Vomiting Last Admin: 08/18/17 02:57 Dose: 4 mg Oxycodone/Acetaminophen (Percocet 5/325 Mg Tab) 2 tab PO Q6H PRN PRN Reason: Pain, severe (8-10) Stop: 08/19/17 16:13 Last Admin: 08/18/17 04:00 Dose: 2 tab Rosuvastatin Calcium (Crestor) 2.5 mg PO [facility] Last Admin: 08/17/17 21:42 Dose: 2.5 mg Silver Sulfadiazine (Silvadene 1% 20 Gm) 0 ea TOP DAILY [facility] Last Admin: 08/17/17 11:00 Dose: Not Given Spironolactone (Aldactone) 25 mg PO DAILY [facility] Last Admin: 08/17/17 09:23 Dose: 25 mg - Labs Labs: 08/16/17 01:02 08/16/17 01:02 PT 13.8 SECONDS (9.7-12.2) H 08/16/17 01:02 INR 1.2 08/16/17 01:02 APTT 35 SECONDS (21-34) H 08/16/17 01:02 - Constitutional Appears: Non-toxic, No Acute Distress - Head Exam Head Exam: ATRAUMATIC, NORMAL INSPECTION, NORMOCEPHALIC - Eye Exam Eye Exam: EOMI, Normal appearance - ENT Exam ENT Exam: Mucous Membranes Moist - Neck Exam Neck Exam: Full ROM. absent: Tenderness - Respiratory Exam Respiratory Exam: Clear to Ausculation Bilateral, NORMAL BREATHING PATTERN - Cardiovascular Exam Cardiovascular Exam: Irregular Rhythm. absent: Gallop, Rubs, Murmur - GI/Abdominal Exam GI & Abdominal Exam: Soft, Normal Bowel Sounds - Extremities Exam Extremities Exam: Full ROM, Pedal Edema, Tenderness Additional comments: erythema - Neurological Exam Neurological Exam: Alert, Awake, Oriented x3 - Psychiatric Exam Psychiatric exam: Normal Affect, Normal Mood - Skin Skin Exam: Abrasion, Erythema, Warm Additional comments: edema b/l lower extremities Assessment and Plan - Assessment and Plan (Free Text) Assessment: Left sided abdominal pain On admission: * Afebrile, WBC: 9.9 Flagyl 500 mg q8h Zosyn 3.375 q6h blood culture and urine culture negative Hypertension Continue home medications: * Vasotec 10mg PO daily * HCTZ 50mg PO daily * Aldactone 25mg PO daily * Lasix 40mg PO daily History of atrial fibrillation Continue home medications: * Cardizem 30mg PO QID * Digoxin 0.125mg PO daily * Amiodarone 200mg PO daily * Continue to monitor with telemetry Cardiology Consult: Dr. Griffin --> help appreciated History of CHF ECHO (02/2017): LV systolic function severely reduced. LV mildly dilated. Severe global hypokinesis of LV. Negative for endocarditis. Continue home medications: * Lasix 40mg PO daily * HCTZ 50mg PO daily * Aldactone 25mg PO daily * Fluid restriction * Daily weights * Silvadene cream to be applied and dressing changed q8h History of coronary artery disease Continue home medications: * Aspirin 81mg PO daily * Crestor 2.5mg PO daily History of COPD Continue home medications: * Ventolin 2 PUFF BID * Singulair 10 mg PO HS Anxiety and depression Prozac 40mg po daily Xanax 1mg po Q6H PRN Tobacco use disorder Patient stated he has recently quit but because of that it causes his anxiety to increase Nicotine patch Prophylactic measure SCDs contraindicated due to b/l LE edema Pepcid compression stockings Management as per Dr. Ocampo <Roque Ocampo Jr. - Last Filed: 08/19/17 15:26> Objective - Vital Signs/Intake and Output Vital Signs (last 24 hours): Temp Pulse Resp BP Pulse Ox 97.7 F 73 20 99/65 L 99 08/19/17 08:05 08/19/17 08:05 08/19/17 08:05 08/19/17 10:54 08/19/17 08:05 Intake and Output: 08/19/17 08/19/17 06:59 18:59 Intake Total 650 Output Total 1600 Balance -950 - Medications Medications: Current Medications Albuterol (Ventolin Hfa 90 Mcg/Actuation (8 G)) 2 puff INH RBID PRN PRN Reason: Shortness of Breath Alprazolam (Xanax) 1 mg PO Q6H PRN PRN Reason: Anxiety Last Admin: 08/19/17 11:02 Dose: 1 mg Amiodarone HCl (Cordarone) 200 mg PO DAILY [facility] Last Admin: 08/19/17 10:54 Dose: Not Given Aspirin (Aspirin Chewable) 81 mg PO DAILY [facility] Last Admin: 08/19/17 10:51 Dose: 81 mg Digoxin (Lanoxin) 0.125 mg PO DAILY@1800 [facility] Last Admin: 08/18/17 17:57 Dose: 0.125 mg Diphenhydramine HCl (Benadryl) 25 mg PO Q6 PRN PRN Reason: Itching / Pruritus Last Admin: 08/19/17 13:18 Dose: 25 mg Enalapril Maleate (Vasotec) 10 mg PO DAILY [facility] Last Admin: 08/19/17 10:52 Dose: Not Given Fluoxetine HCl (Prozac) 40 mg PO DAILY [facility] Last Admin: 08/19/17 10:53 Dose: 40 mg Furosemide (Lasix) 40 mg IVP DAILY [facility] Last Admin: 08/19/17 10:54 Dose: 40 mg Gabapentin (Neurontin) 300 mg PO TID [facility] Last Admin: 08/19/17 13:18 Dose: 300 mg Hydrochlorothiazide (Hydrodiuril) 50 mg PO DAILY [facility] Hydromorphone HCl (Dilaudid) 0.5 mg IVP Q6H PRN PRN Reason: Pain, severe(8-10) [facility] Last Admin: 08/19/17 10:46 Dose: 0.5 mg Metronidazole (Flagyl) 500 mg in 100 mls @ 100 mls/hr IVPB Q8 [facility] Last Admin: 08/19/17 13:22 Dose: Not Given Piperacillin Sod/Tazobactam (Sod 3.375 gm/ Sodium Chloride) 100 mls @ 200 mls/ hr IVPB Q6H [facility] Last Admin: 08/19/17 10:56 Dose: 200 mls/hr Ibuprofen (Motrin Tab) 800 mg PO Q6H PRN PRN Reason: Pain, Mild (1-3) Last Admin: 08/18/17 07:10 Dose: 800 mg Montelukast Sodium (Singulair) 10 mg PO HS [facility] Last Admin: 08/18/17 21:22 Dose: 10 mg Nicotine (Nicoderm Cq) 1 patch TD DAILY [facility] Last Admin: 08/19/17 10:51 Dose: 1 patch Ondansetron HCl (Zofran Inj) 4 mg IVP Q6H PRN PRN Reason: Nausea/Vomiting Last Admin: 08/18/17 14:57 Dose: 4 mg Oxycodone/Acetaminophen (Percocet 5/325 Mg Tab) 2 tab PO Q6H PRN PRN Reason: Pain, severe (8-10) FIRST LINE Stop: 08/19/17 16:13 Last Admin: 08/19/17 13:18 Dose: 2 tab Oxycodone/Acetaminophen (Percocet 5/325 Mg Tab) 2 tab PO Q6H PRN PRN Reason: Pain, severe (8-10) Stop: 08/22/17 17:01 Pantoprazole Sodium (Protonix Inj) 40 mg IVP DAILY [facility] Last Admin: 08/19/17 10:56 Dose: 40 mg Rosuvastatin Calcium (Crestor) 2.5 mg PO HS [facility] Last Admin: 08/18/17 21:22 Dose: 2.5 mg Silver Sulfadiazine (Silvadene 1% 20 Gm) 1 ea TOP Q8H [facility] Last Admin: 08/19/17 13:26 Dose: 1 appl Spironolactone (Aldactone) 25 mg PO DAILY [facility] Last Admin: 08/19/17 10:54 Dose: Not Given - Labs Labs: 08/19/17 06:38 08/19/17 06:38 PT 13.8 SECONDS (9.7-12.2) H 08/16/17 01:02 INR 1.2 08/16/17 01:02 APTT 35 SECONDS (21-34) H 08/16/17 01:02 Attending/Attestation - Attestation I have personally seen and examined this patient.: Yes I have fully participated in the care of the patient.: Yes I have reviewed all pertinent clinical information, including history, physical exam and plan: Yes Notes (Text): 08/19/17 15:26 Agree with resident note and plan of care
[2017-08-18] MEDS: Silver Sulfadiazine 1% Cream (20 gm) TOP SCH ×3 (10:00→21:19)
[2017-08-18] MEDS: Digoxin 125 mcg (0.125 mg) Tab PO SCH (17:57)
--- NOTE | 2017-08-18 20:36 | PN ---
SUBJECTIVE: The patient is still experiencing shortness of breath. He denies chest pain. He is still experiencing bilateral leg swelling. PHYSICAL EXAMINATION: VITAL SIGNS: Blood pressure 121/70, heart rate 80, temperature 97.4, and respirations 20. HEENT: Mild facial edema. CHEST: Bibasilar rhonchi. HEART: S1 and S2 regular. EXTREMITIES: 2+ pitting edema. ASSESSMENT: 1. Exacerbation of congestive heart failure. 2. Coronary artery disease, status post coronary stenting in the past. 3. Cocaine abuse. 4. Chronic atrial fibrillation. 5. History of recent splenic abscess. RECOMMENDATIONS: Continue Aldactone 25 mg once a day, aspirin 81 mg once a day, amiodarone 200 mg once a day, Crestor 2.5 mg once a day, IV Flagyl at 500 mg intravenously q. 8 hours, Lanoxin 0.125 mg orally daily, Lasix at 40 mg intravenously daily, hydrochlorothiazide 25 mg daily, Zosyn at 3.375 g intravenously q. 6 hours and Vasotec 10 mg daily. Iglesia Griffin MD
[2017-08-18] MEDS: Rosuvastatin Calcium 2.5 mg Tab PO SCH (21:22)
--- NOTE | 2017-08-18 22:31 | CARD ---
APPROVED REPORT EKG Measurement Heart [id number] <Conclusion> Atrial fibrillation Pulmonary disease pattern Incomplete right bundle branch block Left anterior fascicular block Inferior infarct, age undetermined ST & T wave abnormality, consider anterolateral ischemia Abnormal ECG
[2017-08-19] MEDS: Oxycodone/Acetaminophen 5/325 mg Tab PO PRN ×2 (03:49→19:26)
[2017-08-19] MEDS: Piperacillin/Tazobact 3.375 GM in Sodium Chloride 100 ML IVPB SCH ×4 (04:50→23:19)
[2017-08-19] MEDS: Silver Sulfadiazine 1% Cream (20 gm) TOP SCH ×3 (04:50→21:00)
[2017-08-19] MEDS: metroNIDAZOLE IV 500 mg/100 ml 500 MG/100 ML BAG IVPB SCH ×3 (05:14→22:01)
[2017-08-19 07:20] LABS: BASO # 0.2 K/uL (0.0-0.2); BASO % 1.7 % (0.0-2.0); EOS # 0.5 K/uL (0.0-0.7); EOS % 5.3 % (0.0-4.0); HEMATOCRIT 48.6 % (35.0-51.0); LYMPH # 1.9 K/uL (1.0-4.3); MEAN CELL VOLUME 75.8 fL (80.0-94.0); MEAN CORPUSCULAR HEMOGLOBIN 23.5 pg (27.0-31.0); MEAN PLATELET VOLUME 8.5 fL (7.2-11.7); MONO # 1.5 K/uL (0.0-0.8); MONO % 15.2 % (0.0-10.0); NRBC % 0.2 % (0.0-2.0); RED CELL DISTRIBUTION WIDTH 19.3 % (11.5-14.5); WHITE BLOOD COUNT 10.2 K/uL (4.8-10.8)
[2017-08-19 07:29] LABS: CHLORIDE 100 mmol/L (98-107); POTASSIUM 5.3 mmol/L (3.6-5.2); SODIUM 139 mmol/L (132-148)
[2017-08-19 07:31] LABS: ALB/GLOB RATIO 0.9 (1.0-2.1); ALKALINE PHOSPHATASE 82 U/L (38-126); AST/SGOT 37 U/L (17-59); BILIRUBIN,TOTAL 0.7 mg/dL (0.2-1.3); BLOOD UREA NITROGEN 30 mg/dL (9-20); CARBON DIOXIDE 25 mmol/L (22-30); GFR AFRICAN-AMERICAN > 60; TOTAL PROTEIN 8.9 g/dL (6.3-8.3)
[2017-08-19 07:32] LABS: ALT/SGPT 32 U/L (21-72); CALCIUM 9.4 mg/dl (8.6-10.4); GLUCOSE,RANDOM 92 mg/dL (75-110); MAGNESIUM 1.7 mg/dL (1.6-2.3); PHOSPHOROUS 3.2 mg/dL (2.5-4.5)
[2017-08-19] MEDS ORDERED: Oxycodone/Acetaminophen 5/325 mg Tab PO PRN (10:15)
[2017-08-19] MEDS: HYDROmorphone 0.5 mg/0.5 ml ISec IVP PRN ×3 (10:46→23:20)
[2017-08-19] MEDS ORDERED: Sod Polystyrene Sulf 15 gm/60 ml Oral Susp PO ONE (13:13)
--- NOTE | 2017-08-19 13:15 | CP.PCM.PN ---
Subjective - Date & Time of Evaluation Date of Evaluation: 08/19/17 Time of Evaluation: 07:00 - Subjective Subjective: PGY1- Medicine Note- Dr. Ocampo's Service Patient seen and examined at bedside and in no acute distress. Patient agitated and very worked up that he did not get more pain medications overnight. Patient denies shortness of breath, abdominal pain, nausea, vomiting, constipation, or diarrhea. Objective - Vital Signs/Intake and Output Vital Signs (last 24 hours): Temp Pulse Resp BP Pulse Ox 97.7 F 73 20 99/65 L 99 08/19/17 08:05 08/19/17 08:05 08/19/17 08:05 08/19/17 10:54 08/19/17 08:05 Intake and Output: 08/19/17 08/19/17 06:59 18:59 Intake Total 650 Output Total 1600 Balance -950 - Medications Medications: Current Medications Albuterol (Ventolin Hfa 90 Mcg/Actuation (8 G)) 2 puff INH RBID PRN PRN Reason: Shortness of Breath Alprazolam (Xanax) 1 mg PO Q6H PRN PRN Reason: Anxiety Last Admin: 08/19/17 11:02 Dose: 1 mg Amiodarone HCl (Cordarone) 200 mg PO DAILY [facility] Last Admin: 08/19/17 10:54 Dose: Not Given Aspirin (Aspirin Chewable) 81 mg PO DAILY [facility] Last Admin: 08/19/17 10:51 Dose: 81 mg Digoxin (Lanoxin) 0.125 mg PO DAILY@1800 [facility] Last Admin: 08/18/17 17:57 Dose: 0.125 mg Diphenhydramine HCl (Benadryl) 25 mg PO Q6 PRN PRN Reason: Itching / Pruritus Last Admin: 08/19/17 03:48 Dose: 25 mg Enalapril Maleate (Vasotec) 10 mg PO DAILY [facility] Last Admin: 08/19/17 10:52 Dose: Not Given Fluoxetine HCl (Prozac) 40 mg PO DAILY [facility] Last Admin: 08/19/17 10:53 Dose: 40 mg Furosemide (Lasix) 40 mg IVP DAILY [facility] Last Admin: 08/19/17 10:54 Dose: 40 mg Gabapentin (Neurontin) 300 mg PO TID [facility] Last Admin: 08/19/17 10:55 Dose: 300 mg Hydrochlorothiazide (Microzide) 50 mg PO DAILY [facility] Last Admin: 08/19/17 10:55 Dose: Not Given Hydromorphone HCl (Dilaudid) 0.5 mg IVP Q6H PRN PRN Reason: Pain, severe(8-10) SECOND LINE Last Admin: 08/19/17 10:46 Dose: 0.5 mg Metronidazole (Flagyl) 500 mg in 100 mls @ 100 mls/hr IVPB Q8 [facility] Last Admin: 08/19/17 05:14 Dose: Not Given Piperacillin Sod/Tazobactam (Sod 3.375 gm/ Sodium Chloride) 100 mls @ 200 mls/ hr IVPB Q6H [facility] Last Admin: 08/19/17 10:56 Dose: 200 mls/hr Ibuprofen (Motrin Tab) 800 mg PO Q6H PRN PRN Reason: Pain, Mild (1-3) Last Admin: 08/18/17 07:10 Dose: 800 mg Montelukast Sodium (Singulair) 10 mg PO [facility] Last Admin: 08/18/17 21:22 Dose: 10 mg Nicotine (Nicoderm Cq) 1 patch TD DAILY [facility] Last Admin: 08/19/17 10:51 Dose: 1 patch Ondansetron HCl (Zofran Inj) 4 mg IVP Q6H PRN PRN Reason: Nausea/Vomiting Last Admin: 08/18/17 14:57 Dose: 4 mg Oxycodone/Acetaminophen (Percocet 5/325 Mg Tab) 2 tab PO Q6H PRN PRN Reason: Pain, severe (8-10) FIRST LINE Stop: 08/19/17 16:13 Pantoprazole Sodium (Protonix Inj) 40 mg IVP DAILY [facility] Last Admin: 08/19/17 10:56 Dose: 40 mg Rosuvastatin Calcium (Crestor) 2.5 mg PO [facility] Last Admin: 08/18/17 21:22 Dose: 2.5 mg Silver Sulfadiazine (Silvadene 1% 20 Gm) 1 ea TOP Q8H [facility] Last Admin: 08/19/17 04:50 Dose: Not Given Spironolactone (Aldactone) 25 mg PO DAILY [facility] Last Admin: 08/19/17 10:54 Dose: Not Given - Labs Labs: 08/19/17 06:38 08/19/17 06:38 PT 13.8 SECONDS (9.7-12.2) H 08/16/17 01:02 INR 1.2 08/16/17 01:02 APTT 35 SECONDS (21-34) H 08/16/17 01:02 - Constitutional Appears: Non-toxic, No Acute Distress - Head Exam Head Exam: ATRAUMATIC, NORMAL INSPECTION, NORMOCEPHALIC - Eye Exam Eye Exam: EOMI, Normal appearance - ENT Exam ENT Exam: Mucous Membranes Moist - Neck Exam Neck Exam: Full ROM. absent: Tenderness - Respiratory Exam Respiratory Exam: Wheezes, NORMAL BREATHING PATTERN - Cardiovascular Exam Cardiovascular Exam: Irregular Rhythm. absent: Gallop, Rubs, Murmur - GI/Abdominal Exam GI & Abdominal Exam: Distended, Soft, Normal Bowel Sounds - Extremities Exam Extremities Exam: Full ROM, Pedal Edema, Tenderness - Neurological Exam Neurological Exam: Alert, Awake, Oriented x3 - Psychiatric Exam Psychiatric exam: Agitated - Skin Skin Exam: Abrasion, Erythema, Warm. absent: Intact Assessment and Plan - Assessment and Plan (Free Text) Assessment: Left sided abdominal pain On admission: Afebrile, WBC: 9.9 Flagyl 500 mg q8h Zosyn 3.375 q6h oxycodone 2 tab q6h for severe pain dilaudid .5 mg ivp q6h for severe pain blood culture and urine culture negative Hypertension Continue home medications: Vasotec 10mg PO daily HCTZ 50mg PO daily Aldactone 25mg PO daily Lasix 40mg PO daily History of atrial fibrillation Continue home medications: Cardizem 30mg PO QID Digoxin 0.125mg PO daily Amiodarone 200mg PO daily Continue to monitor with telemetry Cardiology Consult: Dr. Griffin --> help appreciated History of CHF ECHO (02/2017): LV systolic function severely reduced. LV mildly dilated. Severe global hypokinesis of LV. Negative for endocarditis. Continue home medications: Lasix 40mg PO daily HCTZ 50mg PO daily Aldactone 25mg PO daily Fluid restriction Daily weights Silvadene cream to be applied and dressing changed q8h History of coronary artery disease Continue home medications: Aspirin 81mg PO daily Crestor 2.5mg PO daily History of COPD Continue home medications: Ventolin 2 PUFF BID Singulair 10 mg PO HS Anxiety and depression Prozac 40mg po daily Xanax 1mg po Q6H PRN Tobacco use disorder Patient stated he has recently quit but because of that it causes his anxiety to increase Nicotine patch Prophylactic measure SCDs contraindicated due to b/l LE edema Pepcid compression stockings Management as per Dr. Ocampo
[2017-08-19] MEDS: Digoxin 125 mcg (0.125 mg) Tab PO SCH (17:11)
[2017-08-19] MEDS: Rosuvastatin Calcium 2.5 mg Tab PO SCH (22:00)
--- NOTE | 2017-08-19 22:25 | PN ---
CARDIOLOGY FOLLOWUP SUBJECTIVE: The patient appears much happier today with less leg swelling and less discomfort. PHYSICAL EXAMINATION: VITAL SIGNS: Blood pressure 99/65, heart rate 73, temperature 97.7. HEENT: Normocephalic. CHEST: Absent breath sounds over the bases. HEART: S1 and S2 irregular. EXTREMITIES: 2+ pitting edema. LABORATORY DATA: Hemoglobin, hematocrit, white count and platelet count all within normal limit. Today's potassium is 5.3 and BUN of 30. The rest of SMA-7 is within normal limit. ASSESSMENT: 1. Exacerbation of congestive heart failure. 2. Hypertension. 3. Atrial fibrillation. 4. History of recent splenic abscess. 5. Depression and anxiety. RECOMMENDATIONS: Continue Aldactone 25 mg once a day, aspirin 81 mg once a day, amiodarone 200 mg once a day, hydrochlorothiazide 50 mg once a day, digoxin 0.125 mg daily, Lasix 40 mg intravenously once a day. Continue IV Zosyn and IV Flagyl. Continue Vasotec at 10 mg once a day. Iglesia Griffin MD
[2017-08-20 01:07] VITALS: RESP 20
[2017-08-20] MEDS: Oxycodone/Acetaminophen 5/325 mg Tab PO PRN ×3 (04:36→16:50)
[2017-08-20] MEDS: Piperacillin/Tazobact 3.375 GM in Sodium Chloride 100 ML IVPB SCH ×4 (04:36→22:45)
[2017-08-20] MEDS: Silver Sulfadiazine 1% Cream (20 gm) TOP SCH ×3 (04:50→20:47)
[2017-08-20] MEDS: metroNIDAZOLE IV 500 mg/100 ml 500 MG/100 ML BAG IVPB SCH ×3 (05:52→21:37)
[2017-08-20 06:22] LABS: BASO # 0.1 K/uL (0.0-0.2); BASO % 1.4 % (0.0-2.0); EOS # 0.6 K/uL (0.0-0.7); EOS % 6.4 % (0.0-4.0); HEMATOCRIT 46.6 % (35.0-51.0); LYMPH % 21.5 % (20.0-40.0); MEAN CELL VOLUME 75.9 fL (80.0-94.0); MEAN CORPUSCULAR HEMOGLOBIN 23.6 pg (27.0-31.0); MEAN CORPUSCULAR HGB CONC 31.1 g/dL (33.0-37.0); MEAN PLATELET VOLUME 8.1 fL (7.2-11.7); MONO # 1.3 K/uL (0.0-0.8); WHITE BLOOD COUNT 9.3 K/uL (4.8-10.8)
[2017-08-20 06:28] LABS: CHLORIDE 97 mmol/L (98-107); SODIUM 138 mmol/L (132-148)
[2017-08-20 06:29] LABS: POTASSIUM 4.6 mmol/L (3.6-5.2)
[2017-08-20 06:30] LABS: GFR AFRICAN-AMERICAN > 60
[2017-08-20 06:31] LABS: ALB/GLOB RATIO 0.9 (1.0-2.1); ALKALINE PHOSPHATASE 72 U/L (38-126); ALT/SGPT 29 U/L (21-72); AST/SGOT 35 U/L (17-59); BILIRUBIN,TOTAL 0.6 mg/dL (0.2-1.3); BLOOD UREA NITROGEN 25 mg/dL (9-20); CARBON DIOXIDE 26 mmol/L (22-30); GLUCOSE,RANDOM 142 mg/dL (75-110); PHOSPHOROUS 3.5 mg/dL (2.5-4.5); TOTAL PROTEIN 8.3 g/dL (6.3-8.3)
[2017-08-20 06:32] LABS: CALCIUM 9.2 mg/dl (8.6-10.4); MAGNESIUM 1.7 mg/dL (1.6-2.3)
[2017-08-20] MEDS ORDERED: Ipratropium 0.02% Inhal Soln (0.5 mg/2.5 ml) UD IH PRN (07:01)
[2017-08-20] MEDS: HYDROmorphone 0.5 mg/0.5 ml ISec IVP PRN ×3 (08:01→20:56)
--- NOTE | 2017-08-20 16:38 | CP.PCM.PN ---
Subjective - Date & Time of Evaluation Date of Evaluation: 08/20/17 Time of Evaluation: 07:00 - Subjective Subjective: PGY1- Medicine Note- Dr. Ocampo's Service Patient seen and examined at bedside and in no acute distress. Patient agitated and very worked up again about one of his medications. Patient denies shortness of breath, abdominal pain, nausea, vomiting, constipation, or diarrhea. Objective - Vital Signs/Intake and Output Vital Signs (last 24 hours): Temp Pulse Resp BP Pulse Ox 98.1 F 102 H 20 104/60 98 08/20/17 15:00 08/20/17 16:29 08/20/17 15:00 08/20/17 15:00 08/20/17 15:00 Intake and Output: 08/20/17 08/20/17 06:59 18:59 Intake Total 450 705 Output Total 950 1600 Balance -500 -895 - Medications Medications: Current Medications Albuterol (Ventolin Hfa 90 Mcg/Actuation (8 G)) 2 puff INH RBID PRN PRN Reason: Shortness of Breath Alprazolam (Xanax) 1 mg PO Q6H PRN PRN Reason: Anxiety Last Admin: 08/20/17 09:21 Dose: 1 mg Amiodarone HCl (Cordarone) 200 mg PO DAILY [facility] Last Admin: 08/20/17 09:27 Dose: 200 mg Aspirin (Aspirin Chewable) 81 mg PO DAILY [facility] Last Admin: 08/20/17 09:22 Dose: 81 mg Digoxin (Lanoxin) 0.125 mg PO DAILY@1800 [facility] Last Admin: 08/19/17 17:11 Dose: 0.125 mg Diphenhydramine HCl (Benadryl) 25 mg PO Q6 PRN PRN Reason: Itching / Pruritus Last Admin: 08/20/17 10:50 Dose: 25 mg Enalapril Maleate (Vasotec) 10 mg PO DAILY [facility] Last Admin: 08/20/17 09:29 Dose: 10 mg Fluoxetine HCl (Prozac) 40 mg PO DAILY [facility] Last Admin: 08/20/17 09:22 Dose: 40 mg Furosemide (Lasix) 40 mg IVP DAILY [facility] Last Admin: 08/20/17 09:27 Dose: 40 mg Gabapentin (Neurontin) 300 mg PO TID [facility] Last Admin: 08/20/17 14:10 Dose: 300 mg Hydrochlorothiazide (Hydrodiuril) 50 mg PO DAILY [facility] Last Admin: 08/20/17 09:21 Dose: 50 mg Hydromorphone HCl (Dilaudid) 0.5 mg IVP Q6H PRN PRN Reason: Pain, severe(8-10) SECOND LINE Last Admin: 08/20/17 14:10 Dose: 0.5 mg Metronidazole (Flagyl) 500 mg in 100 mls @ 100 mls/hr IVPB Q8 [facility] Last Admin: 08/20/17 14:13 Dose: 100 mls/hr Piperacillin Sod/Tazobactam (Sod 3.375 gm/ Sodium Chloride) 100 mls @ 200 mls/ hr IVPB Q6H [facility] Last Admin: 08/20/17 12:14 Dose: 200 mls/hr Ibuprofen (Motrin Tab) 800 mg PO Q6H PRN PRN Reason: Pain, Mild (1-3) Last Admin: 08/18/17 07:10 Dose: 800 mg Ipratropium [place] (Atrovent) 0.5 mg IH RQ6 PRN PRN Reason: Shortness of Breath Montelukast Sodium (Singulair) 10 mg PO [facility] Last Admin: 08/19/17 22:00 Dose: 10 mg Nicotine (Nicoderm Cq) 1 patch TD DAILY [facility] Last Admin: 08/20/17 09:21 Dose: 1 patch Ondansetron HCl (Zofran Inj) 4 mg IVP Q6H PRN PRN Reason: Nausea/Vomiting Last Admin: 08/20/17 14:10 Dose: 4 mg Oxycodone/Acetaminophen (Percocet 5/325 Mg Tab) 2 tab PO Q6H PRN PRN Reason: Pain, severe (8-10) Stop: 08/22/17 17:01 Last Admin: 08/20/17 10:50 Dose: 2 tab Pantoprazole Sodium (Protonix Inj) 40 mg IVP DAILY [facility] Last Admin: 08/20/17 09:21 Dose: 40 mg Rosuvastatin Calcium (Crestor) 2.5 mg PO [facility] Last Admin: 08/19/17 22:00 Dose: 2.5 mg Silver Sulfadiazine (Silvadene 1% 20 Gm) 1 ea TOP Q8H [facility] Last Admin: 09/21/17 12:14 Dose: Not Given Spironolactone (Aldactone) 25 mg PO DAILY [facility] Last Admin: 08/20/17 09:21 Dose: 25 mg - Labs Labs: 08/20/17 06:09 08/20/17 06:09 PT 13.8 SECONDS (9.7-12.2) H 08/16/17 01:02 INR 1.2 08/16/17 01:02 APTT 35 SECONDS (21-34) H 08/16/17 01:02 - Constitutional Appears: Non-toxic, No Acute Distress - Head Exam Head Exam: ATRAUMATIC, NORMAL INSPECTION, NORMOCEPHALIC - Eye Exam Eye Exam: EOMI, Normal appearance - ENT Exam ENT Exam: Mucous Membranes Moist - Neck Exam Neck Exam: Full ROM, Tenderness - Respiratory Exam Respiratory Exam: Clear to Ausculation Bilateral, NORMAL BREATHING PATTERN. absent: Rales, Rhonchi, Wheezes, Respiratory Distress, Stridor - Cardiovascular Exam Cardiovascular Exam: Irregular Rhythm - GI/Abdominal Exam GI & Abdominal Exam: Soft, Normal Bowel Sounds - Extremities Exam Extremities Exam: Full ROM, Pedal Edema, Tenderness - Neurological Exam Neurological Exam: Alert, Awake, Oriented x3 - Psychiatric Exam Psychiatric exam: Agitated - Skin Skin Exam: Abrasion, Dry, Erythema, Warm Assessment and Plan - Assessment and Plan (Free Text) Assessment: Left sided abdominal pain On admission: Afebrile, WBC: 9.9 Flagyl 500 mg q8h Zosyn 3.375 q6h oxycodone 2 tab q6h for severe pain dilaudid .5 mg ivp q6h for severe pain blood culture and urine culture negative Hypertension Continue home medications: Vasotec 10mg PO daily HCTZ 50mg PO daily Aldactone 25mg PO daily Lasix 40mg PO daily History of atrial fibrillation Continue home medications: Cardizem 30mg PO QID Digoxin 0.125mg PO daily Amiodarone 200mg PO daily Continue to monitor with telemetry Cardiology Consult: Dr. Griffin --> help appreciated History of CHF ECHO (02/2017): LV systolic function severely reduced. LV mildly dilated. Severe global hypokinesis of LV. Negative for endocarditis. Continue home medications: Lasix 40mg PO daily HCTZ 50mg PO daily Aldactone 25mg PO daily Fluid restriction Daily weights Silvadene cream to be applied and dressing changed q8h History of coronary artery disease Continue home medications: Aspirin 81mg PO daily Crestor 2.5mg PO daily History of COPD Continue home medications: Ventolin 2 PUFF BID Singulair 10 mg PO HS Anxiety and depression Prozac 40mg po daily Xanax 1mg po Q6H PRN Tobacco use disorder Patient stated he has recently quit but because of that it causes his anxiety to increase Nicotine patch Prophylactic measure SCDs contraindicated due to b/l LE edema Pepcid compression stockings Management as per Dr. Ocampo
[2017-08-20] MEDS: Digoxin 125 mcg (0.125 mg) Tab PO SCH (18:11)
[2017-08-20 18:12] VITALS: PULSE 101
[2017-08-20] MEDS: Rosuvastatin Calcium 2.5 mg Tab PO SCH (21:38)
--- NOTE | 2017-08-20 21:58 | PN ---
DATE: SUBJECTIVE: The patient feels better. He is in definitely much better mood. His leg swelling has improved as well as shortness of breath. PHYSICAL EXAMINATION VITAL SIGNS: Blood pressure 104/60, heart rate 67, temperature 98.1, respirations 20. HEENT: Normocephalic. HEART: S1 and S2, irregular. CHEST: Diminished breath sounds over the bases. ABDOMEN: Soft. EXTREMITIES: 1+ pitting edema. LABORATORY DATA: Today, SMA-7 is within normal limits except for glucose of 142, carbon dioxide of 97 and BUN of 25. Hemoglobin and hematocrit 14.5 and 46.6. White count and platelet count are within normal limit. The blood culture is negative after 4 days. ASSESSMENT: 1. Exacerbation of congestive heart failure. 2. Coronary artery disease with history of coronary stenting in the past. 3. Chronic atrial fibrillation. 4. Chronic obstructive lung disease. 5. Hypertension. 6. Leg cellulitis. CONDITIONS: Continue Aldactone 25 mg once a day, aspirin 81 mg once a day, amiodarone 200 mg once a day, Crestor 2.5 mg once a day, IV Flagyl 500 mg q. 8 hours, Lanoxin 0.125 mg daily, Lasix 40 mg intravenously daily, Singulair 10 mg at bedtime, Vasotec 10 mg orally daily. The patient will follow with his invasive pad assembler, Dr. Herron upon discharge. Iglesia Griffin MD
[2017-08-21] MEDS: Oxycodone/Acetaminophen 5/325 mg Tab PO PRN ×2 (00:16→06:24)
[2017-08-21] MEDS ORDERED: Albuterol-Ipratrop 3 mg / 0.5 (3 ml) UD INH STA (01:53)
[2017-08-21] MEDS ORDERED: Albuterol 0.042% Inhal Sol (1.25 mg/3 mL) UD INH STA (01:59)
[2017-08-21] MEDS: HYDROmorphone 0.5 mg/0.5 ml ISec IVP PRN ×2 (03:15→09:30)
[2017-08-21] MEDS: Piperacillin/Tazobact 3.375 GM in Sodium Chloride 100 ML IVPB SCH (04:36)
[2017-08-21] MEDS: Silver Sulfadiazine 1% Cream (20 gm) TOP SCH (05:59)
[2017-08-21] MEDS: metroNIDAZOLE IV 500 mg/100 ml 500 MG/100 ML BAG IVPB SCH (06:27)
[2017-08-21 06:42] LABS: BASO # 0.2 K/uL (0.0-0.2); BASO % 2.2 % (0.0-2.0); EOS # 0.6 K/uL (0.0-0.7); EOS % 6.8 % (0.0-4.0); HEMATOCRIT 46.8 % (35.0-51.0); LYMPH # 1.7 K/uL (1.0-4.3); LYMPH % 18.6 % (20.0-40.0); MEAN CELL VOLUME 75.9 fL (80.0-94.0); MEAN CORPUSCULAR HEMOGLOBIN 23.9 pg (27.0-31.0); MEAN CORPUSCULAR HGB CONC 31.4 g/dL (33.0-37.0); MEAN PLATELET VOLUME 7.7 fL (7.2-11.7); MONO # 1.2 K/uL (0.0-0.8); MONO % 13.5 % (0.0-10.0); RED CELL DISTRIBUTION WIDTH 19.1 % (11.5-14.5)
[2017-08-21 07:53] LABS: CHLORIDE 97 mmol/L (98-107); SODIUM 138 mmol/L (132-148)
[2017-08-21 07:55] LABS: GFR AFRICAN-AMERICAN > 60
[2017-08-21 07:56] LABS: BILIRUBIN,TOTAL 0.7 mg/dL (0.2-1.3); CARBON DIOXIDE 30 mmol/L (22-30)
[2017-08-21 07:57] LABS: ALB/GLOB RATIO 0.9 (1.0-2.1); ALKALINE PHOSPHATASE 84 U/L (38-126); ALT/SGPT 31 U/L (21-72); AST/SGOT 41 U/L (17-59); BLOOD UREA NITROGEN 29 mg/dL (9-20); CALCIUM 9.1 mg/dl (8.6-10.4); GLUCOSE,RANDOM 74 mg/dL (75-110); MAGNESIUM 1.8 mg/dL (1.6-2.3); PHOSPHOROUS 3.9 mg/dL (2.5-4.5); TOTAL PROTEIN 8.8 g/dL (6.3-8.3)
[2017-08-21 08:16] VITALS: PULSE 75; TEMP 98.1; O2SAT 98
[2017-08-21 09:38] VITALS: BP 146/59
--- NOTE | 2017-08-21 10:31 | PCM.HF ---
Heart Failure Core Measure - Heart Failure Ejection Fraction: Less Than 40 % SHONDA Inhibitor Prescribed: Yes Beta-Yonis Prescribed: None Contraindication/Reason for not providing: ACTIVE COCAINE USE Angiotensin II Receptor Yonis Prescribed: No Contraindication/Reason for not providing: ON SHONDA AnticoagulationTherapy for Atrial Fibrillation/Atrialflutter: No Contraindication/Reason for not providing: + AFIB; H/O SPLENIC ABSCESS; RISK OF BLEED Aldosterone Antagonist Prescribed: No Contraindication/Reason for not providing: RECENTLY D/C'D BY CARDIO Hydralazine Nitrate Prescribed: No Contraindication/Reason for not providing: ON AMIO PER CARDIO Implantable Cardioverter Defibrillator Therapy: No Contraindication/Reason for not providing: NOT REQUIRED PER MEDICAL TEAM Cardiac Resynchronization Therapy Prescribed: No Contraindication/Reason for not providing: NOT REQUIRED PER MEDICAL TEAM - Follow up Will be discharged to: Home Follow Up Date (must be within 7 days from discharge): 08/28/17 Follow Up Time: 09:00
--- NOTE | 2017-08-21 14:01 | CP.PCM.DIS ---
Provider - Provider Date of Admission: 08/16/17 05:54 Attending physician: Roque Ocampo Jr, MD Primary care physician: Dr. Ocampo Time Spent in preparation of Discharge (in minutes): 45 Diagnosis - Discharge Diagnosis (1) CHF (congestive heart failure) Status: Chronic (2) COPD (chronic obstructive pulmonary disease) Status: Chronic (3) Anxiety Status: Chronic (4) Edema Status: Acute (5) Afib Status: Chronic (6) Hypertension Status: Chronic Hospital Course - Lab Results Lab Results: Micro Results 08/16/17 Unknown Blood Blood Culture - Final NO GROWTH AFTER 5 DAYS 08/16/17 Unknown Blood Gram Stain - Final TEST NOT PERFORMED 08/16/17 Unknown Blood Blood Culture - Final NO GROWTH AFTER 5 DAYS 08/16/17 Unknown Blood Gram Stain - Final TEST NOT PERFORMED 08/16/17 18:35 Naris MRSA Culture (Admit) - Final MRSA NOT DETECTED 08/16/17 Unknown Urine Urine Culture - Final No Growth (<1,000 CFU/ML) Most Recent Lab Values WBC 9.0 K/uL (4.8-10.8) 08/21/17 06:39 RBC 6.17 Mil/uL (4.40-5.90) H 08/21/17 06:39 Hgb 14.7 g/dL (12.0-18.0) 08/21/17 06:39 Hct 46.8 % (35.0-51.0) 08/21/17 06:39 MCV 75.9 fL (80.0-94.0) L 08/21/17 06:39 MCH 23.9 pg (27.0-31.0) L 08/21/17 06:39 MCHC 31.4 g/dL (33.0-37.0) L 08/21/17 06:39 RDW 19.1 % (11.5-14.5) H 08/21/17 06:39 Plt Count 357 K/uL (130-400) 08/21/17 06:39 MPV 7.7 fL (7.2-11.7) 08/21/17 06:39 Neut % (Auto) 58.9 % (50.0-75.0) 08/21/17 06:39 Lymph % (Auto) 18.6 % (20.0-40.0) L 08/21/17 06:39 [place] % (Auto) 13.5 % (0.0-10.0) H 08/21/17 06:39 Eos % (Auto) 6.8 % (0.0-4.0) H 08/21/17 06:39 Baso % (Auto) 2.2 % (0.0-2.0) H 08/21/17 06:39 Neut # 5.3 K/uL (1.8-7.0) 08/21/17 06:39 Lymph # 1.7 K/uL (1.0-4.3) 08/21/17 06:39 [place] # 1.2 K/uL (0.0-0.8) H 08/21/17 06:39 Eos # 0.6 K/uL (0.0-0.7) 08/21/17 06:39 Baso # 0.2 K/uL (0.0-0.2) 08/21/17 06:39 PT 13.8 SECONDS (9.7-12.2) H 08/16/17 01:02 INR 1.2 08/16/17 01:02 APTT 35 SECONDS (21-34) H 08/16/17 01:02 Sodium 138 mmol/L (132-148) 08/21/17 06:39 Potassium 5.0 mmol/L (3.6-5.2) 08/21/17 06:39 Chloride 97 mmol/L (98-107) L 08/21/17 06:39 Carbon Dioxide 30 mmol/L (22-30) 08/21/17 06:39 Anion Gap 17 (10-20) 08/21/17 06:39 BUN 29 mg/dL (9-20) H 08/21/17 06:39 Creatinine 0.9 MG/DL (0.8-1.5) 08/21/17 06:39 Est GFR ( Amer) > 60 08/21/17 06:39 Est GFR (Non-Af Amer) > 60 08/21/17 06:39 POC Glucose (mg/dL) 94 mg/dL (65-110) 08/19/17 11:11 Random Glucose 74 mg/dL (75-110) L 08/21/17 06:39 Calcium 9.1 mg/dl (8.6-10.4) 08/21/17 06:39 Phosphorus 3.9 mg/dL (2.5-4.5) 08/21/17 06:39 Magnesium 1.8 mg/dL (1.6-2.3) 08/21/17 06:39 Total Bilirubin 0.7 mg/dL (0.2-1.3) 08/21/17 06:39 AST 41 U/L (17-59) 08/21/17 06:39 ALT 31 U/L (21-72) 08/21/17 06:39 Alkaline Phosphatase 84 U/L (38-126) 08/21/17 06:39 Total Creatine Kinase 80 U/L (55-170) 08/16/17 09:40 CK-MB (Mass) 4.67 ng/mL (0.0-3.38) H 08/16/17 09:40 Troponin I 0.0610 ng/mL (0.00-0.120) 08/16/17 01:02 Troponin I, Quant 0.0600 ng/mL (0.00-0.120) 08/16/17 09:40 NT-Pro-B Natriuret Pep 4290 pg/mL (0-450) H 08/16/17 01:02 Total Protein 8.8 g/dL (6.3-8.3) H 08/21/17 06:39 Albumin 4.2 g/dL (3.5-5.0) 08/21/17 06:39 Globulin 4.7 gm/dL (2.2-3.9) H 08/21/17 06:39 Albumin/Globulin Ratio 0.9 (1.0-2.1) L 08/21/17 06:39 Lipase 141 U/L (23-300) 08/16/17 01:02 Urine Color Yellow (YELLOW) 08/16/17 04:06 Urine Clarity Clear (Clear) 08/16/17 04:06 Urine pH 7.0 (5.0-8.0) 08/16/17 04:06 Ur Specific [place] 1.011 (1.003-1.030) 08/16/17 04:06 Urine Protein Negative mg/dL (NEGATIVE) 08/16/17 04:06 Urine Glucose (UA) Normal mg/dL (Normal) 08/16/17 04:06 Urine Ketones Negative mg/dL (NEGATIVE) 08/16/17 04:06 Urine Blood Negative (NEGATIVE) 08/16/17 04:06 Urine Nitrate Negative (NEGATIVE) 08/16/17 04:06 Urine Bilirubin Negative (NEGATIVE) 08/16/17 04:06 Urine Urobilinogen Normal mg/dL (0.2-1.0) 08/16/17 04:06 Ur Leukocyte Esterase Neg Nancie/uL (Negative) 08/16/17 04:06 Urine WBC (Auto) 2 /hpf (0-5) 08/16/17 04:06 Urine RBC (Auto) < 1 /hpf (0-3) 08/16/17 04:06 Ur Squamous Epith Cells < 1 /hpf (0-5) 08/16/17 04:06 Hyaline Casts 6-10 /lpf (0-2) H 08/16/17 04:06 Digoxin < 0.4 ng/mL (0.8-2.0) L 08/16/17 01:02 Urine Opiates Screen Negative (NEGATIVE) 08/16/17 04:06 Urine Methadone Screen Negative (NEGATIVE) 08/16/17 04:06 Ur Barbiturates Screen Negative (NEGATIVE) 08/16/17 04:06 Ur Phencyclidine Scrn Negative (NEGATIVE) 08/16/17 04:06 Ur Amphetamines Screen Negative (NEGATIVE) 08/16/17 04:06 U Benzodiazepines Scrn Positive (NEGATIVE) 08/16/17 04:06 U Oth Cocaine Metabols Positive (NEGATIVE) 08/16/17 04:06 U Cannabinoids Screen Negative (NEGATIVE) 08/16/17 04:06 Alcohol, Quantitative < 10 mg/dl (0-10) 08/16/17 01:02 - Hospital Course Hospital Course: "CC: "Shortness of breath" HPI: 47 year old male with past medical history of HTN, CAD, CHF,Afib, COPD, ARLENE , Herniated discs L-spine, Bipolar/Depression, Asthma, hx of splenic infarct/ abscess, who presents to the emergency room with shortness of breath. Patient also states he has abdominal painin his spleen area which comes and goes. Patient states his pain is an 8/10 and he cannot sleep on his side because it increases his pain. Patient also states he has nausea, fever, sweating, shortness of breath, and leg swelling. " Hospital Course: Left sided abdominal pain: On admission patient was afebrile with wbc 9.9. Patient with history of splenic abscess which was monitored with CT (08/03) on previous admission and showed improvement as per Dr. Senior. Patient started on Flagyl 500 mg q8h and Zosyn 3.375 q6h. Oxycodone 2 tab q6h was given for severe pain. Dialudid .5 mg ivp q6h was given as second line for pain. Blood culture and urine culture were negative. Hypertension: Patient was continued on home medications: Vasotec 10mgPO daily, HCTZ 50mg PO daily, Aldactone 25mg PO daily, and Lasix 40mg PO daily. History of atrial fibrillation: Patient was continued home medications: Cardizem 30mg PO QID, Digoxin 0.125mg PO daily,Amiodarone 200mg PO daily. Patient refused to be monitored with telemetry. Dr. Griffin, cardiology was consulted who recommended to continue current medications. History of CHF: ECHO (02/2017): LV systolic function severely reduced. LV mildly dilated. Severe global hypokinesis of LV. Negative for endocarditis. Patient continued on home medications: Lasix 40mg PO daily, HCTZ 50mg PO daily, Aldactone 25mg PO daily. Patient had daily weights checked. Lower extremity dry skin with erethyma and edema secondary to venous stasis/ CHF : Patient treated with silvadene cream and dressing changes q8h. History of coronary artery disease: Patient continued on home medications: Aspirin 81mg PO daily and Crestor 2.5mg PO daily. History of COPD Patient continued on home medications of Ventolin 2 PUFF BID and Singulair 10 mg PO HS. Anxiety and depression: Patient continued on home medications: Prozac 40mg po daily and Xanax 1mg po Q6H PRN. Tobacco use disorder: Patient stated he has recently quit but because of that it causes his anxiety to increase. Patient given a Nicotine patch. Prophylactic measure : SCDs contraindicated due to b/l LE edema. Pepcid given daily and compression stockings given.Patient is feeling much better. Patient stable for discharge as per Dr. Ocampo. This is a summary of the patient's hospital course, please see chart for details. Discharge Exam - Head Exam Head Exam: ATRAUMATIC, NORMAL INSPECTION, NORMOCEPHALIC - Eye Exam Eye Exam: EOMI, Normal appearance - ENT Exam ENT Exam: Mucous Membranes Moist - Respiratory Exam Respiratory Exam: Clear to PA & Lateral, NORMAL BREATHING PATTERN, UNREMARKABLE. absent: Rales, Rhonchi, Wheezes, Respiratory Distress, Stridor - Cardiovascular Exam Cardiovascular Exam: REGULAR RHYTHM, RRR. absent: Gallop, JVD, Rubs, Systolic Murmur - GI/Abdominal Exam GI & Abdominal Exam: Normal Bowel Sounds, Soft. absent: Tenderness - Extremities Exam Extremities exam: full ROM, pedal edema, tenderness - Neurological Exam Neurological exam: Alert, Normal Gait, Oriented x3 - Psychiatric Exam Psychiatric exam: Normal Affect, Normal Mood Discharge Plan - Discharge Medications Prescriptions: Silver Sulfadiazine 1% 20 gm [Silvadene 1% 20 gm] 1 ea TOP Q8H #1 tube - Follow Up Plan Condition: FAIR Disposition: HOME/ ROUTINE Instructions: Heart Failure (GEN), Chronic Pain (GEN) Additional Instructions: Patient stable for discharge as per Dr. Ocampo. Patient to continue home medications. Patient to follow up with Dr. Ocampo within one week and Dr. Morgan (cardiology). Patient to return to Emergency Room if symptoms return or worsen. Patient explained discharge instructions who understands and agrees. Referrals: Roque Ocampo Jr., MD [Medical Doctor] -
== END 2017-08-21 10:30 | disposition home or self-care (01) | DRG 292 ==
LOC: C.ER 22:53 → C.9E 08-16 05:54 → OBSVTOIN 08-16 05:54 → C.9I 08-16 17:20 → C.6T 08-17 18:04
PROVIDERS: ADMIT Family Medicine; ATTEND Internal Medicine
DX: I11.0 Hypertensive heart disease with heart failure (principal); L03.119 Cellulitis of unspecified part of limb; E11.65 Type 2 diabetes mellitus with hyperglycemia; F41.9 Anxiety disorder, unspecified; I50.9 Heart failure, unspecified; E78.00 Pure hypercholesterolemia, unspecified; F31.9 Bipolar disorder, unspecified; I25.10 Atherosclerotic heart disease of native coronary artery without angina pectoris; J43.9 Emphysema, unspecified; I48.2 Chronic atrial fibrillation; G47.33 Obstructive sleep apnea (adult) (pediatric); F17.210 Nicotine dependence, cigarettes, uncomplicated; Z95.5 Presence of coronary angioplasty implant and graft; F14.10 Cocaine abuse, uncomplicated; R10.9 Unspecified abdominal pain

== ENCOUNTER 2017-09-06 16:43 | Inpatient (IN) | payer MEDICARE, MEDICAID ==
[2017-09-06 16:43] VITALS: BMI 38.7
[2017-09-06] MEDS ORDERED: Aspirin 325 mg EC Tablets PO STA (17:02)
--- NOTE | 2017-09-06 17:04 | C.PDOC ---
History Of Present Illness 47 year old male, history of CHF, COPD, HTN, diabetes, polysubstance abuse, and is frequently in the hospital presents to the ED complaining of urinary retention, abdominal pain, and leg swelling. He was last seen and discharged from [facility] on 08/21/17. No other acute complaints at this time. Time Seen by Provider: 09/06/17 16:53 History Per: Patient History/Exam Limitations: no limitations Reports Recently: Seen In ED, Treated By A Physician Past Medical History Reviewed: Historical Data, Nursing Documentation, Vital Signs Vital Signs: Last Vital Signs Temp 99 F 09/06/17 16:58 Pulse 128 H 09/06/17 16:58 Resp 28 H 09/06/17 17:28 BP 138/79 09/06/17 16:58 Pulse Ox 97 09/06/17 16:58 - Medical History PMH: Anxiety, Arthritis, Asthma, Atrial Fibrillation, Back Problems, Bipolar Disorder, CAD, Cardia Arrhythmia, CHF, COPD, Depression, HTN, Hypercholesterolemia, Peripheral Edema, Pneumonia, Sleep Apnea, Chronic Pain ( Lower Back Pain) Denies: Emphysema, Chronic Kidney Disease Surgical History: Appendectomy (2008), Coronary Stent (2008 - 2012 4 stents) - Formerly [facility] Procedures CORONAR ARTERIOGR-2 CATH (07/06/13) DRAINAGE OF SPLEEN, PERCUTANEOUS APPROACH (03/05/17) INJECT/INFUSE NEC (02/22/14) LEFT HEART CARDIAC CATH (07/06/13) LT HEART ANGIOCARDIOGRAM (07/06/13) NEBULIZER THERAPY (03/28/14) NON-INVASIVE MECHANICAL VENTILATION (03/26/15) TRANSFUSE NONAUT FROZEN PLASMA IN PERIPH VEIN, PERC (02/21/17) Family History: States: Unknown Family Hx, CAD, Diabetes - Social History Hx Tobacco Use: Yes Hx Alcohol Use: Yes Hx Substance Use: Yes - Immunization History Hx Tetanus Toxoid Vaccination: Yes Hx Influenza Vaccination: Yes Hx Pneumococcal Vaccination: Yes (08/2014) Review Of Systems Gastrointestinal: Positive for: Abdominal Pain Genitourinary: Positive for: Other (Urinary retention) Musculoskeletal: Positive for: Other (Leg swelling) Physical Exam - Physical Exam Appears: Non-toxic, No Acute Distress Skin: Other (Many small skin lesions on extremities) Head: Atraumatic, Normacephalic Respiratory: Normal Breath Sounds, Other (moving air bilaterally ) Gastrointestinal/Abdominal: Soft, No Tenderness, Distention, Other (obese) Extremity: Pedal Edema (pitting edema bilaterally), Other (chronic venous stasis changes bilaterally) Neurological/Psych: Oriented x3 ED Course And Treatment - Laboratory Results Result Diagrams: 09/06/17 17:23 09/06/17 17:[address] Roque Ocampo Jr. Doctor Will See Patient In The: Hospital Counseled Patient/Family Regarding: Studies Performed, Diagnosis - Disposition Disposition: HOSPITALIZED Disposition Time: 18:07 Condition: GUARDED - Clinical Impression Clinical Impression: Congestive heart failure, Dyspnea, Atrial fibrillation with rapid ventricular response - Scribe Statement The provider has reviewed the documentation as recorded by the Lashawnibpradeep Mack Provider Attestation: All medical record entries made by the Lashawnibe were at my direction and personally dictated by me. I have reviewed the chart and agree that the record accurately reflects my personal performance of the history, physical exam, medical decision making, and the department course for this patient. I have also personally directed, reviewed, and agree with the discharge instructions and disposition. Decision To Admit - Pt Status Changed To: Hospital Disposition Of: Inpatient - Admit Certification Admit to Inpatient:: After my assessment, the patient will require hospitalization for at least two midnights. This is because of the severity of symptoms shown, intensity of services needed, and/or the medical risk in this patient being treated as an outpatient. - InPatient: Physician Admission Certification: I certify that this patient requires 2 or more midnights of care for the following reason:: CHF, sob, co morbidities with substance abuse - . Bed Request Type: Telemetry Patient Diagnosis: Congestive heart failure, Dyspnea, Atrial fibrillation with rapid ventricular response
[2017-09-06 17:32] LABS: BASO # 0.1 K/uL (0.0-0.2); BASO % 0.7 % (0.0-2.0); EOS # 0.2 K/uL (0.0-0.7); EOS % 1.9 % (0.0-4.0); HEMATOCRIT 41.3 % (35.0-51.0); LYMPH # 1.2 K/uL (1.0-4.3); LYMPH % 10.8 % (20.0-40.0); MEAN CELL VOLUME 77.2 fL (80.0-94.0); MEAN CORPUSCULAR HEMOGLOBIN 24.2 pg (27.0-31.0); MEAN CORPUSCULAR HGB CONC 31.4 g/dL (33.0-37.0); MEAN PLATELET VOLUME 8.3 fL (7.2-11.7); MONO # 1.1 K/uL (0.0-0.8); MONO % 9.8 % (0.0-10.0); RED CELL DISTRIBUTION WIDTH 22.3 % (11.5-14.5); WHITE BLOOD COUNT 11.1 K/uL (4.8-10.8)
[2017-09-06 17:48] LABS: CHLORIDE 100 mmol/L (98-107); POTASSIUM 3.9 mmol/L (3.6-5.2); SODIUM 133 mmol/L (132-148)
[2017-09-06 17:50] LABS: ALB/GLOB RATIO 0.8 (1.0-2.1); ALKALINE PHOSPHATASE 57 U/L (38-126); AST/SGOT 46 U/L (17-59); BILIRUBIN,TOTAL 0.9 mg/dL (0.2-1.3); CARBON DIOXIDE 20 mmol/L (22-30); GFR AFRICAN-AMERICAN > 60; TOTAL PROTEIN 8.3 g/dL (6.3-8.3)
[2017-09-06 17:51] LABS: ALT/SGPT 44 U/L (21-72); BLOOD UREA NITROGEN 22 mg/dL (9-20); CALCIUM 8.6 mg/dl (8.6-10.4); GLUCOSE,RANDOM 95 mg/dL (75-110)
--- NOTE | 2017-09-06 17:52 | RAD ---
PROCEDURE: CHEST RADIOGRAPH, 1 VIEW HISTORY: Shortness of breath and chest pain COMPARISON: 08/06/2017 FINDINGS: LUNGS: Pulmonary vascular congestion. PLEURA: No pneumothorax or pleural fluid seen. CARDIOVASCULAR: Cardiomegaly/ acute CHF. OSSEOUS STRUCTURES: No significant abnormalities. VISUALIZED UPPER ABDOMEN: Normal. OTHER FINDINGS: None. IMPRESSION: Acute congestive heart failure, a finding not apparent on the prior chest radiograph 08/16/2017. Please note: No preliminary report/ innterpretation of this examination provided by emergency department personnel.
--- NOTE | 2017-09-06 18:17 | CP.PCM.HP ---
History of Present Illness - History of Present Illness History of Present Illness: CC: "short of breath" HPI: 47 year old male with PMHx of CHF, COPD, HTN, polysubstance abuse, chronic back pain, tobacco abuse, depression, and anxiety who frequently is in the hospital presents to the ED complaining of leg swelling. He was last seen and discharged from [facility] on 08/21/17. Today the patient came in because he noticed that his lower extremity swelling was getting worse. Per patient, his legs are always swollen but they turned darker purple in color and have become more painful over the past 2 days. The patient states that he also has abdominal pain on the left side of his abdomen. His last bowel movement was yesterday and normal. Patient says he took all of his medications at home as prescribed today. He denies fever, chills, nausea, vomiting, change in bowel movements, diarrhea, constipation, dizziness, recent fall, headache, change in vision, and recent illness. All other ROS negative. The patient was given Lasix 40mg IV x1 and Ativan in the ED. PMD: Dr Ocampo PMHx: HTN, CAD, CHF, Afib, COPD, ARLENE, Herniated discs L-spine, Bipolar/ Depression, Asthma, hx of splenic infarct/abscess (As per chart review) Surgical Hx: Appendectomy (2008), Coronary stents x4 ([id number]) Family Hx: Denies Medications: Diltiazem, ASA, digoxin, enalapril, Lasix, ventolin, singulair, Prozac, crestor, Xanax, spironolactone, amiodarone, percocet Allergies: Apixaban, clopidogrel, enoxaparin, Morphine (rash) Social Hx: Former smoker; cocaine use. Has home attendant and lives with who is at bedside. Present on Admission - Present on Admission Any Indicators Present on Admission: No Review of Systems - Constitutional Constitutional: As Per HPI. absent: Chills, Headache - EENT Eyes: As Per HPI. absent: Blurred Vision, Change in Vision Ears: As Per HPI. absent: Dizziness Nose/Mouth/Throat: As Per HPI. absent: Sore Throat - Cardiovascular Cardiovascular: As Per HPI, Leg Edema, Pedal Edema, Rapid Heart Rate. absent: Chest Pain, Diaphoresis, Dyspnea, Palpitations - Respiratory Respiratory: As Per HPI. absent: Cough, Dyspnea, Chest Congestion - Gastrointestinal Gastrointestinal: As Per HPI, Abdominal Pain. absent: Bloating, Constipation, Diarrhea, Heartburn, Nausea, Vomiting - Genitourinary Genitourinary: As Per HPI. absent: Change in Urinary Stream, Difficulty Urinating - Musculoskeletal Musculoskeletal: As Per HPI, Back Pain (chronic ), Tingling (LE neuropathy ). absent: Muscle Weakness, Numbness - Integumentary Integumentary: As Per HPI, Skin Pain (Lower legs BL ), Swelling (Lower legs BL ) . absent: Sores, Unusual Bruising - Neurological Neurological: As Per HPI. absent: Abnormal Gait, Behavioral Changes, Convulsions, Dizziness, Numbness, Headaches, Syncope, Weakness - Psychiatric Psychiatric: As Per HPI, Anxiety. absent: Depression - Endocrine Endocrine: As Per HPI. absent: Fatigue Past Patient History - Infectious Disease Hx of Infectious Diseases: None - Tetanus Immunizations Tetanus Immunization: Up to Date - Past Medical History & Family History Past Medical History?: Yes - Past Social History Smoking Status: Former Smoker - CARDIAC Hx Atrial Fibrillation: Yes Hx Cardia Arrhythmia: Yes Hx Congestive Heart Failure: Yes Hx Hypercholesterolemia: Yes Hx Hypertension: Yes Hx Peripheral Edema: Yes - PULMONARY Hx Asthma: Yes Hx Chronic Obstructive Pulmonary Disease (COPD): Yes Hx Emphysema: No Hx Pneumonia: Yes Hx Sleep Apnea: Yes - NEUROLOGICAL Hx Neurological Disorder: No - HEENT Hx HEENT Problems: No - RENAL Hx Chronic Kidney Disease: No - ENDOCRINE/METABOLIC Hx Endocrine Disorders: No - HEMATOLOGICAL/ONCOLOGICAL Hx Blood Disorders: Yes Hx Blood Transfusions: Yes Other/Comment: MRSA Hx - INTEGUMENTARY Hx Dermatological Problems: Yes - MUSCULOSKELETAL/RHEUMATOLOGICAL Hx Arthritis: Yes - GASTROINTESTINAL Hx Gastrointestinal Disorders: Yes Other/Comment: Splenic Hematoma - GENITOURINARY/GYNECOLOGICAL Hx Genitourinary Disorders: No - PSYCHIATRIC Hx Anxiety: Yes Hx Bipolar Disorder: Yes Hx Depression: Yes Hx Substance Use: Yes - SURGICAL HISTORY Hx Appendectomy: Yes (2008) Hx Coronary Stent: Yes (2008 - 2012 4 stents) - ANESTHESIA Hx Anesthesia: Yes Hx Anesthesia Reactions: No Hx Malignant Hyperthermia: No Meds Allergies/Adverse Reactions: Allergies Allergy/AdvReac Type Severity Reaction Status Date / Time apixaban [From Eliquis] Allergy RASH Verified 08/15/17 23:03 clopidogrel bisulfate Allergy RASH Verified 09/16/17 23:03 [From Plavix] enoxaparin sodium Allergy RASH Verified 08/15/17 23:03 [From Lovenox] morphine Allergy RASH Verified 08/15/17 23:03 Physical Exam - Constitutional Appears: Non-toxic, No Acute Distress, Unkempt, Agitated - Head Exam Head Exam: ATRAUMATIC, NORMOCEPHALIC - Eye Exam Eye Exam: EOMI, Normal appearance, PERRL - ENT Exam ENT Exam: Mucous Membranes Moist, Normal Exam - Neck Exam Neck exam: Positive for: Normal Inspection - Respiratory Exam Respiratory Exam: Decreased Breath Sounds. absent: Accessory Muscle Use, Rhonchi, Wheezes, Respiratory Distress, Stridor - Cardiovascular Exam Cardiovascular Exam: Tachycardia (rate 120), Irregular Rhythm, +S1, +S2. absent : Systolic Murmur - GI/Abdominal Exam GI & Abdominal Exam: Normal Bowel Sounds, Soft, Tenderness (ttp Left upper quadrant ). absent: Guarding Additional comments: central obesity - Extremities Exam Extremities exam: Positive for: calf tenderness (bilateral), pedal edema ( bilateral pedal edema to knees ), tenderness (tender to touch skin on legs ). Negative for: joint swelling Additional comments: varicose veins present - Back Exam Back exam: NORMAL INSPECTION - Neurological Exam Neurological exam: Alert, CN II-XII Intact, Oriented x3 - Psychiatric Exam Psychiatric exam: Anxious, Normal Affect - Skin Skin Exam: Dry, Intact, Warm Additional comments: Skin on bilateral LE dark purple, mottled Toes blue in color Feet are cold to touch Results - Vital Signs Recent Vital Signs: Last Vital Signs Temp 99 F 09/06/17 16:58 Pulse 128 H 09/06/17 16:58 Resp 28 H 09/06/17 17:28 BP 138/79 09/06/17 16:58 Pulse Ox 97 09/06/17 16:58 - Labs Result Diagrams: 09/06/17 17:23 09/06/17 17:23 Labs: Laboratory Results - last 24 hr 09/06/17 09/06/17 09/06/17 17:23 17:23 17:30 WBC 11.1 H RBC 5.35 Hgb 12.9 Hct 41.3 MCV 77.2 L MCH 24.2 L MCHC 31.4 L RDW 22.3 H Plt Count 232 D MPV 8.3 Neut % (Auto) 76.8 H Lymph % (Auto) 10.8 L [place] % (Auto) 9.8 Eos % (Auto) 1.9 Baso % (Auto) 0.7 Neut # 8.6 H Lymph # 1.2 [place] # 1.1 H Eos # 0.2 Baso # 0.1 Sodium 133 Potassium 3.9 Chloride 100 Carbon Dioxide 20 L Anion Gap 17 BUN 22 H Creatinine 0.9 Est GFR ( Amer) > 60 Est GFR (Non-Af Amer) > 60 Random Glucose 95 Calcium 8.6 Total Bilirubin 0.9 AST 46 ALT 44 Alkaline Phosphatase 57 Troponin I 0.0570 NT-Pro-B Natriuret Pep 8670 H Total Protein 8.3 Albumin 3.8 Globulin 4.5 H Albumin/Globulin Ratio 0.8 L Influenza Typ A,B (EIA) Negative for flu a/b Assessment & Plan - Assessment and Plan (Free Text) Assessment: Bilateral LE edema f/u bilateral venous dopplers to rule out DVT Abdominal Pain f/u lipase Tolerating diet at this time, will reassess in AM Systolic CHF exacerbation BNP 8670 ECHO (02/2017): LV systolic function severely reduced. LV mildly dilated. Severe global hypokinesis of LV. Negative for endocarditis. Lasix 40mg IV daily Continue home medications: Aldactone 25mg PO daily Fluid restriction Daily weights, I/Os History of atrial fibrillation In rapid A fib with RVR in the ED Continue home medications: Cardizem 30mg PO QID Digoxin 0.125mg PO daily Amiodarone 200mg PO daily Continue to monitor with telemetry CHADS score of 2 points. Patient currently only taking ASA 81mg PO daily. Will f/u with Dr Ocampo regarding need for additional anticoagulation. Hypertension Well controlled at this time Monitor vitals q4h Lasix 40mg IV daily Continue home medications: Vasotec 10mg PO daily Aldactone 25mg PO daily History of coronary artery disease Continue home medications: Aspirin 81mg PO daily Crestor 5mg PO HS History of COPD Continue home medications: Ventolin 2 PUFF BID Singulair 10 mg PO HS Anxiety and depression Prozac 40mg po daily Xanax 1mg po Q6H PRN Chronic Back Pain secondary to Lumbar Spine DJD Continue home meds: Percocet 1 tab PO q6h prn Gabapentin Hx Cocaine use f/u urine drug screen Avoid beta blockers at this time Counseled on cessation of illicit substances Tobacco abuse Nicotine patch TD daily Counseled on tobacco use cessation Prophylactic measure SCDs contraindicated due to b/l LE edema Pepcid 20mg PO BID Patient requesting regular diet Management as per Dr. Ocampo
[2017-09-06] MEDS ORDERED: Home Med 1 UNIT (Oxycodone Hcl/Acetaminophen [Percocet 10-325 Mg Tablet] 1 EACH) PO PRN (18:23)
[2017-09-06 18:24] LABS: RBC URINE < 1 /hpf (0-3); URINE BILIRUBIN NEGATIVE (NEGATIVE); URINE BLOOD NEGATIVE (NEGATIVE); URINE COLOR Straw (YELLOW); URINE GLUCOSE (UA) NORMAL (Normal); URINE KETONE NEGATIVE (NEGATIVE); URINE LEUKOCYTE ESTERASE NEG Leu/uL (Negative); URINE PROTEIN NEGATIVE (NEGATIVE); URINE UROBILINOGEN NORMAL mg/dL (0.2-1.0); WBC URINE < 1 /hpf (0-5)
[2017-09-06] MEDS ORDERED: Oxycodone/Acetaminophen 5/325 mg Tab PO PRN (20:06)
[2017-09-06] MEDS ORDERED: Oxycodone/Acetaminophen 5/325 mg Tab ONE ×2 (20:47→21:20)
[2017-09-06] MEDS: Oxycodone/Acetaminophen 5/325 mg Tab PO PRN (21:16)
[2017-09-06] MEDS ORDERED: DiphenhydrAMINE 50 mg/ml Inj IVP STA (23:40)
[2017-09-06] MEDS ORDERED: DiphenhydrAMINE 50 mg/ml Inj ONE (23:42)
[2017-09-07] MEDS: Oxycodone/Acetaminophen 5/325 mg Tab PO PRN ×3 (03:49→18:52)
[2017-09-07 07:58] LABS: BASO # 0.1 K/uL (0.0-0.2); BASO % 1.3 % (0.0-2.0); EOS # 0.3 K/uL (0.0-0.7); EOS % 3.2 % (0.0-4.0); HEMATOCRIT 40.9 % (35.0-51.0); LYMPH # 2.1 K/uL (1.0-4.3); LYMPH % 22.7 % (20.0-40.0); MEAN CELL VOLUME 76.4 fL (80.0-94.0); MEAN CORPUSCULAR HEMOGLOBIN 24.6 pg (27.0-31.0); MEAN CORPUSCULAR HGB CONC 32.2 g/dL (33.0-37.0); MEAN PLATELET VOLUME 8.2 fL (7.2-11.7); MONO # 1.1 K/uL (0.0-0.8); MONO % 11.9 % (0.0-10.0); RED CELL DISTRIBUTION WIDTH 22.8 % (11.5-14.5); WHITE BLOOD COUNT 9.4 K/uL (4.8-10.8)
[2017-09-07] MEDS: Albuterol HFA 90 mcg/actuation (8 g) IH SCH ×2 (08:00→20:40)
--- NOTE | 2017-09-07 09:26 | CP.PCM.PN ---
<Slim Urbina - Last Filed: 09/07/17 19:20> Subjective - Date & Time of Evaluation Date of Evaluation: 09/07/17 Time of Evaluation: 07:20 - Subjective Subjective: PGY-[address] Ocampo Patient seen and examined at bedside. Patient complaining of continued bilateral lower extremity pain. Patient also complaining of abdominal pain. Patient denies fever, chills, chest pain, dyspnea, dysuria. Objective - Vital Signs/Intake and Output Vital Signs (last 24 hours): Temp Pulse Resp BP Pulse Ox 97.2 F L 70 18 161/89 H 97 09/07/17 07:50 09/07/17 07:50 09/07/17 07:50 09/07/17 07:50 09/07/17 07:50 Intake and Output: 09/07/17 09/07/17 06:59 18:59 Intake Total 354 Balance 354 - Medications Medications: Current Medications Albuterol (Ventolin Hfa 90 Mcg/Actuation (8 G)) 2 puff IH RBID [facility] Last Admin: 09/07/17 08:00 Dose: Not Given Alprazolam (Xanax) 1 mg PO Q6 PRN PRN Reason: Anxiety Last Admin: 09/07/17 05:30 Dose: 1 mg Amiodarone HCl (Cordarone) 200 mg PO DAILY [facility] Aspirin (Aspirin Chewable) 81 mg PO DAILY [facility] Digoxin (Lanoxin) 0.125 mg PO DAILY@1800 [facility] Diltiazem HCl (Cardizem) 30 mg PO QID [facility] Last Admin: 09/06/17 20:48 Dose: 30 mg Famotidine (Pepcid) 20 mg PO BID [facility] Fluoxetine HCl (Prozac) 40 mg PO DAILY [facility] Last Admin: 09/06/17 20:18 Dose: 40 mg Furosemide (Lasix) 40 mg IVP DAILY [facility] Gabapentin (Neurontin) 300 mg PO BID [facility] Last Admin: 09/06/17 20:48 Dose: 300 mg Lorazepam (Ativan) 1 mg IVP Q6H PRN PRN Reason: Anxiety, IF NPO Montelukast Sodium (Singulair) 10 mg PO HS [facility] Last Admin: 09/06/17 20:49 Dose: 10 mg Nicotine (Nicoderm Cq) 1 patch TD DAILY [facility] Last Admin: 09/06/17 20:19 Dose: 1 patch Oxycodone/Acetaminophen (Percocet 5/325 Mg Tab) 2 tab PO Q6H PRN PRN Reason: Pain, moderate (4-7) Stop: 09/09/17 20:07 Last Admin: 09/07/17 03:49 Dose: 2 tab Rosuvastatin Calcium (Crestor) 5 mg PO HS JEIMY Last Admin: 09/06/17 20:49 Dose: 5 mg Spironolactone (Aldactone) 25 mg PO DAILY JEIMY - Labs Labs: 09/07/17 07:47 09/06/17 17:23 - Constitutional Appears: No Acute Distress - Head Exam Head Exam: ATRAUMATIC, NORMOCEPHALIC - Eye Exam Eye Exam: EOMI, PERRL - ENT Exam ENT Exam: Mucous Membranes Moist - Respiratory Exam Respiratory Exam: Decreased Breath Sounds. absent: Rales, Rhonchi, Wheezes - Cardiovascular Exam Cardiovascular Exam: REGULAR RHYTHM, +S1, +S2 - GI/Abdominal Exam GI & Abdominal Exam: Soft, Tenderness (diffuse), Normal Bowel Sounds - Extremities Exam Extremities Exam: Calf Tenderness (bilateral), Pedal Edema (bilateral) Additional comments: Varicose veins bilateral legs. Skin on bilateral LE dark purple, mottled Toes blue in color Feet are cold to touch - Neurological Exam Neurological Exam: Alert, Awake, Oriented x3 - Psychiatric Exam Psychiatric exam: Anxious - Skin Skin Exam: Dry Assessment and Plan - Assessment and Plan (Free Text) Plan: Bilateral LE edema f/u bilateral venous dopplers to rule out DVT Abdominal Pain Lipase mildly elevated at 325 Tolerating diet at this time Systolic CHF exacerbation BNP 8670 ECHO (02/2017): LV systolic function severely reduced. LV mildly dilated. Severe global hypokinesis of LV. Negative for endocarditis. Lasix 40mg IV daily Continue home medications: Aldactone 25mg PO daily Fluid restriction Daily weights, I/Os History of atrial fibrillation In rapid A fib with RVR in the ED Continue home medications: Cardizem 30mg PO QID Digoxin 0.125mg PO daily Amiodarone 200mg PO daily Continue to monitor with telemetry CHADS score of 2 points. Patient currently only taking ASA 81mg PO daily. No anticoagulation per Dr. Ocampo due to risk of splenic infarct converting to hemorrhagic. Hypertension Well controlled at this time Monitor vitals q4h Lasix 40mg IV daily Continue home medications: Vasotec 10mg PO daily Aldactone 25mg PO daily History of coronary artery disease Continue home medications: Aspirin 81mg PO daily Crestor 5mg PO HS History of COPD Continue home medications: Ventolin 2 PUFF BID Singulair 10 mg PO HS Anxiety and depression Prozac 40mg po daily Xanax 1mg po Q6H PRN Chronic Back Pain secondary to Lumbar Spine DJD Continue home meds: Percocet 2 tabs PO q6h prn Dilaudid 1 mg IV Q6 prn added on 09/07/17 Gabapentin 300 mg PO BID Hx Cocaine use f/u urine drug screen Avoid beta blockers at this time Counseled on cessation of illicit substances Tobacco abuse Nicotine patch TD daily Counseled on tobacco use cessation Prophylactic measure SCDs contraindicated due to b/l LE edema Pepcid 20mg PO BID Patient requesting regular diet Management as per Dr. Terrence Holm DW Dr. Terrence Urbina PGY-1 <Roque Ocampo Jr. - Last Filed: 09/13/17 12:07> Objective - Vital Signs/Intake and Output Vital Signs (last 24 hours): Temp Pulse Resp BP Pulse Ox 98.1 F 73 20 131/91 H 97 09/11/17 08:44 09/11/17 08:44 09/11/17 08:44 09/11/17 08:44 09/11/17 08:44 - Labs Labs: 09/11/17 07:07 09/11/17 07:07 Attending/Attestation - Attestation I have personally seen and examined this patient.: Yes I have fully participated in the care of the patient.: Yes I have reviewed all pertinent clinical information, including history, physical exam and plan: Yes Notes (Text): 09/13/17 12:07 Agree with resident note and plan of care
[2017-09-07] MEDS ORDERED: HYDROmorphone 1 mg/ml ISec IVP PRN (13:26)
[2017-09-07] MEDS: Digoxin 125 mcg (0.125 mg) Tab PO SCH (18:48)
--- NOTE | 2017-09-07 21:39 | CARD ---
APPROVED REPORT EKG Measurement Heart [id number] <Conclusion> Atrial fibrillation with rapid ventricular response with premature ventricular or aberrantly conducted complexes RSR' or QR pattern in V1 suggests right ventricular conduction delay Left anterior fascicular block Inferior infarct, age undetermined ST & T wave abnormality, consider lateral ischemia Abnormal ECG
[2017-09-08] MEDS: Oxycodone/Acetaminophen 5/325 mg Tab PO PRN ×3 (03:26→16:13)
--- NOTE | 2017-09-08 06:25 | CP.PCM.PN ---
<Slim Urbina - Last Filed: 09/08/17 21:02> Subjective - Date & Time of Evaluation Date of Evaluation: 09/08/17 Time of Evaluation: 07:50 - Subjective Subjective: PGY-[address] Ocampo Patient seen and examined at bedside. Patient complaining of continued bilateral lower extremity pain as well as his chronic abdominal pain. Patient denies fever, chills, chest pain, dyspnea, dysuria. Objective - Vital Signs/Intake and Output Vital Signs (last 24 hours): Temp Pulse Resp BP Pulse Ox 97.8 F 98 H 20 117/77 98 09/07/17 23:45 09/08/17 03:39 09/07/17 23:45 09/07/17 23:45 09/07/17 23:45 Intake and Output: 09/07/17 09/08/17 18:59 06:59 Intake Total 500 Output Total 700 Balance -200 - Medications Medications: Current Medications Albuterol (Ventolin Hfa 90 Mcg/Actuation (8 G)) 2 puff IH RBID [facility] Last Admin: 09/07/17 20:40 Dose: Not Given Alprazolam (Xanax) 1 mg PO Q6 PRN PRN Reason: Anxiety Last Admin: 09/08/17 05:36 Dose: 1 mg Amiodarone HCl (Cordarone) 200 mg PO DAILY [facility] Last Admin: 09/07/17 09:37 Dose: 200 mg Aspirin (Aspirin Chewable) 81 mg PO DAILY [facility] Last Admin: 09/07/17 09:37 Dose: 81 mg Digoxin (Lanoxin) 0.125 mg PO DAILY@1800 [facility] Last Admin: 09/07/17 18:48 Dose: 0.125 mg Diltiazem HCl (Cardizem) 30 mg PO QID [facility] Last Admin: 09/07/17 22:25 Dose: 30 mg Famotidine (Pepcid) 20 mg PO BID [facility] Last Admin: 09/07/17 18:48 Dose: 20 mg Fluoxetine HCl (Prozac) 40 mg PO DAILY [facility] Last Admin: 09/07/17 09:41 Dose: 40 mg Furosemide (Lasix) 60 mg IVP ONCE ONE Stop: 09/08/17 09:01 Furosemide (Lasix) 60 mg IVP ONCE ONE Stop: 09/08/17 15:01 Gabapentin (Neurontin) 300 mg PO BID [facility] Last Admin: 09/07/17 18:48 Dose: 300 mg Hydromorphone HCl (Dilaudid) 1 mg IVP Q6H PRN PRN Reason: Pain, severe (8-10) Last Admin: 09/08/17 05:13 Dose: 1 mg Lorazepam (Ativan) 1 mg IVP Q6H PRN PRN Reason: Anxiety, IF NPO Montelukast Sodium (Singulair) 10 mg PO [facility] Last Admin: 09/07/17 22:02 Dose: 10 mg Nicotine (Nicoderm Cq) 1 patch TD DAILY [facility] Last Admin: 09/07/17 09:39 Dose: 1 patch Oxycodone/Acetaminophen (Percocet 5/325 Mg Tab) 2 tab PO Q6H PRN PRN Reason: Pain, moderate (4-7) Stop: 09/09/17 20:07 Last Admin: 09/08/17 03:26 Dose: 2 tab Rosuvastatin Calcium (Crestor) 5 mg PO [facility] Last Admin: 09/07/17 22:02 Dose: 5 mg Spironolactone (Aldactone) 25 mg PO DAILY [facility] Last Admin: 09/07/17 09:37 Dose: 25 mg - Labs Labs: 09/07/17 07:47 09/06/17 17:23 - Constitutional Appears: No Acute Distress - Head Exam Head Exam: ATRAUMATIC, NORMOCEPHALIC - Eye Exam Eye Exam: EOMI, PERRL - ENT Exam ENT Exam: Mucous Membranes Moist - Respiratory Exam Respiratory Exam: Clear to Ausculation Bilateral. absent: Rales, Rhonchi, Wheezes - Cardiovascular Exam Cardiovascular Exam: +S1, +S2 - GI/Abdominal Exam GI & Abdominal Exam: Distended, Soft, Tenderness (diffuse), Normal Bowel Sounds - Extremities Exam Extremities Exam: Calf Tenderness (bilateral), Pedal Edema (bilateral) Additional comments: Varicose veins bilateral legs. Skin on bilateral LE dark purple, mottled Toes blue in color Feet are cold to touch - Neurological Exam Neurological Exam: Alert, Awake, Oriented x3 - Psychiatric Exam Psychiatric exam: Anxious - Skin Skin Exam: Dry Assessment and Plan - Assessment and Plan (Free Text) Plan: Bilateral LE edema No DVT on dopplers but superficial phlebitis of left great saphenous vein at the level of the knee along with valvular incompetence of the left great saphenous vein. The right leg was unremarkable. Abdominal Pain Lipase mildly elevated at 325 Tolerating diet at this time Systolic CHF exacerbation BNP 8670 ECHO (02/2017): LV systolic function severely reduced. LV mildly dilated. Severe global hypokinesis of LV. Negative for endocarditis. Lasix 40mg IV daily Continue home medications: Aldactone 25mg PO daily Fluid restriction Daily weights, I/Os History of atrial fibrillation In rapid A fib with RVR in the ED Continue home medications: Cardizem 30mg PO QID Digoxin 0.125mg PO daily Amiodarone 200mg PO daily Continue to monitor with telemetry CHADS score of 2 points. Patient currently only taking ASA 81mg PO daily. No anticoagulation per Dr. Ocampo due to risk of splenic infarct converting to hemorrhagic. Hypertension Well controlled at this time Monitor vitals q4h Lasix 40mg IV daily Continue home medications: Vasotec 10mg PO daily Aldactone 25mg PO daily History of coronary artery disease Continue home medications: Aspirin 81mg PO daily Crestor 5mg PO HS History of COPD Continue home medications: Ventolin 2 PUFF BID Singulair 10 mg PO HS Anxiety and depression Prozac 40mg po daily Xanax 1mg po Q6H PRN Chronic Back Pain secondary to Lumbar Spine DJD Continue home meds: Percocet 2 tabs PO q6h prn Dilaudid 1 mg IV Q6 prn added on 09/07/17 Gabapentin 300 mg PO BID Hx Cocaine use f/u urine drug screen Avoid beta blockers at this time Counseled on cessation of illicit substances Tobacco abuse Nicotine patch TD daily Counseled on tobacco use cessation Prophylactic measure SCDs contraindicated due to b/l LE edema Pepcid 20mg PO BID Patient requesting regular diet Management as per Dr. Ocampo Case DW Dr. Terrence Urbina PGY-1 <Roque Ocampo Jr. - Last Filed: 09/13/17 12:10> Objective - Vital Signs/Intake and Output Vital Signs (last 24 hours): Temp Pulse Resp BP Pulse Ox 98.1 F 73 20 131/91 H 97 09/11/17 08:44 09/11/17 08:44 09/11/17 08:44 09/11/17 08:44 09/11/17 08:44 - Labs Labs: 09/11/17 07:07 10/13/17 07:07 Attending/Attestation - Attestation I have personally seen and examined this patient.: Yes I have fully participated in the care of the patient.: Yes I have reviewed all pertinent clinical information, including history, physical exam and plan: Yes Notes (Text): 09/13/17 12:09 Agree with resident note and plan of care
[2017-09-08 08:22] LABS: BASO # 0.1 K/uL (0.0-0.2); BASO % 1.2 % (0.0-2.0); EOS # 0.3 K/uL (0.0-0.7); EOS % 3.3 % (0.0-4.0); HEMATOCRIT 40.7 % (35.0-51.0); LYMPH # 1.1 K/uL (1.0-4.3); LYMPH % 13.3 % (20.0-40.0); MEAN CELL VOLUME 77.4 fL (80.0-94.0); MEAN CORPUSCULAR HEMOGLOBIN 24.6 pg (27.0-31.0); MEAN CORPUSCULAR HGB CONC 31.8 g/dL (33.0-37.0); MEAN PLATELET VOLUME 8.4 fL (7.2-11.7); MONO # 1.1 K/uL (0.0-0.8); MONO % 13.2 % (0.0-10.0); RED CELL DISTRIBUTION WIDTH 22.2 % (11.5-14.5); WHITE BLOOD COUNT 8.6 K/uL (4.8-10.8)
[2017-09-08 08:45] LABS: CHLORIDE 96 mmol/L (98-107); POTASSIUM 4.5 mmol/L (3.6-5.2); SODIUM 132 mmol/L (132-148)
[2017-09-08 08:47] LABS: ALB/GLOB RATIO 0.9 (1.0-2.1); ALKALINE PHOSPHATASE 61 U/L (38-126); AST/SGOT 46 U/L (17-59); BILIRUBIN,TOTAL 0.7 mg/dL (0.2-1.3); CARBON DIOXIDE 26 mmol/L (22-30); GFR AFRICAN-AMERICAN > 60
[2017-09-08 08:48] LABS: ALT/SGPT 50 U/L (21-72); BLOOD UREA NITROGEN 22 mg/dL (9-20); CALCIUM 8.7 mg/dl (8.6-10.4); GLUCOSE,RANDOM 121 mg/dL (75-110)
[2017-09-08] MEDS: Albuterol HFA 90 mcg/actuation (8 g) IH SCH ×2 (09:07→21:08)
[2017-09-08] MEDS ORDERED: Influenza Vaccine 60 mcg/0.5 mL SYR (4YR UP) IM ONE ×2 (10:00→15:00)
--- NOTE | 2017-09-08 14:23 | VASCLAB ---
PROCEDURE: Lower Extremity Venous Duplex Exam. HISTORY: Swelling, pain in limb PRIORS: Last venous duplex exam, 05/05/2017 TECHNIQUE: Bilateral common femoral, femoral, popliteal and posterior tibial, peroneal and great saphenous veins were evaluated. Flow was assessed with color Doppler, compressibility, assessment of phasic flow and augmentation response. Report prepared by Matt Bullock, DEMETRIUS, RVT FINDINGS: RIGHT: 1. Common Femoral Vein: 1.1. Compressibility - Fully compressible: Thrombus - None : Flow - Phasic: Augmentation -Normal: Reflux - None. 2. Femoral Vein: 2.1. Compressibility - Fully compressible: Thrombus - None : Flow - Phasic: Augmentation -Normal: Reflux - None. 3. Popliteal Vein: 3.1. Compressibility - Fully compressible: Thrombus - None : Flow - Phasic: Augmentation -Normal: Reflux - None. 4. Posterior Tibial Vein: 4.1. Unable to visualize 5. Peroneal Vein: 5.1. Unable to visualize 6. Great Saphenous Vein: 6.1. Compressibility - Fully compressible: Thrombus - None: Flow - Phasic: Augmentation - Normal: Reflux - None. LEFT: 1. Common Femoral Vein: 1.1. Compressibility - Fully compressible: Thrombus - None: Flow - Phasic: Augmentation -Normal: Reflux - None. 2. Femoral Vein: 2.1. Compressibility - Fully compressible: Thrombus - None: Flow - Phasic: Augmentation -Normal: Reflux - None. 3. Popliteal Vein: 3.1. Compressibility - Fully compressible: Thrombus - None : Flow - Phasic: Augmentation -Normal: Reflux - None. 4. Posterior Tibial Vein: 4.1. Compressibility - Fully compressible: Thrombus - None: Flow - Phasic: Augmentation -Normal: Reflux - None. 5. Peroneal Vein: 5.1. Compressibility - Fully compressible: Thrombus - None: Flow - Phasic: Augmentation -Normal: Reflux - None. 6. Great Saphenous Vein: 6.1. Compressibility - Incompressible: Thrombus - Chronic: Flow - Phasic: Augmentation - Normal: Reflux - Severe. >4.99 seconds OTHER FINDINGS: Right: The right posterior tibial and peroneal veins were not visualized, due to swelling. Left: The left great saphenous vein was non compressible, at the knee level. IMPRESSION: Right: No evidence of deep or superficial vein thrombosis of the right lower extremity. Normal valve function noted of the right side. Left: Superficial phlebitis of the left great saphenous vein, at the knee level. Valvular incompetence noted of the left great saphenous vein. No evidence of deep vein thrombosis of the left lower extremity.
[2017-09-08] MEDS ORDERED: DiphenhydrAMINE 50 mg/ml Inj IVP ONE (16:45)
[2017-09-08] MEDS: Digoxin 125 mcg (0.125 mg) Tab PO SCH (18:50)
[2017-09-09] MEDS: Oxycodone/Acetaminophen 5/325 mg Tab PO PRN ×4 (02:12→20:00)
--- NOTE | 2017-09-09 07:24 | CP.PCM.PN ---
<Slim Urbina - Last Filed: 09/09/17 18:14> Subjective - Date & Time of Evaluation Date of Evaluation: 09/09/17 Time of Evaluation: 07:10 - Subjective Subjective: PGY-[address] Ocampo Patient seen and examined at bedside. Patient complaining of worsening of his chronic bilateral lower extremity pain (right >left) as well as his chronic abdominal pain. Patient denies fever, chills, chest pain, dyspnea, dysuria. Objective - Vital Signs/Intake and Output Vital Signs (last 24 hours): Temp Pulse Resp BP Pulse Ox 97.4 F L 80 20 130/86 96 09/08/17 23:45 09/08/17 23:45 09/08/17 23:45 09/08/17 23:45 09/08/17 23:45 Intake and Output: 09/09/17 09/09/17 06:59 18:59 Intake Total 1150 Output Total 1550 Balance -400 - Medications Medications: Current Medications Albuterol (Ventolin Hfa 90 Mcg/Actuation (8 G)) 2 puff IH RBID [facility] Last Admin: 09/08/17 21:08 Dose: Not Given Alprazolam (Xanax) 1 mg PO Q6 PRN PRN Reason: Anxiety Last Admin: 09/09/17 07:06 Dose: 1 mg Amiodarone HCl (Cordarone) 200 mg PO DAILY [facility] Last Admin: 09/08/17 09:11 Dose: 200 mg Aspirin (Aspirin Chewable) 81 mg PO DAILY [facility] Last Admin: 09/08/17 09:11 Dose: 81 mg Digoxin (Lanoxin) 0.125 mg PO DAILY@1800 [facility] Last Admin: 09/08/17 18:50 Dose: 0.125 mg Diltiazem HCl (Cardizem) 30 mg PO QID [facility] Last Admin: 09/08/17 22:43 Dose: 30 mg Famotidine (Pepcid) 20 mg PO BID [facility] Last Admin: 09/08/17 18:50 Dose: 20 mg Fluoxetine HCl (Prozac) 40 mg PO DAILY [facility] Last Admin: 09/08/17 09:52 Dose: 40 mg Gabapentin (Neurontin) 300 mg PO BID [facility] Last Admin: 09/08/17 18:50 Dose: 300 mg Hydromorphone HCl (Dilaudid) 1 mg IVP Q6H PRN PRN Reason: Pain, severe (8-10) Last Admin: 09/09/17 05:04 Dose: 1 mg Lorazepam (Ativan) 1 mg IVP Q6H PRN PRN Reason: Anxiety, IF NPO Montelukast Sodium (Singulair) 10 mg PO HS [facility] Last Admin: 09/08/17 22:43 Dose: 10 mg Nicotine (Nicoderm Cq) 1 patch TD DAILY [facility] Last Admin: 09/08/17 09:15 Dose: 1 patch Oxycodone/Acetaminophen (Percocet 5/325 Mg Tab) 2 tab PO Q6H PRN PRN Reason: Pain, moderate (4-7) Stop: 09/09/17 20:07 Last Admin: 09/09/17 02:12 Dose: 2 tab Rosuvastatin Calcium (Crestor) 5 mg PO [facility] Last Admin: 09/08/17 22:43 Dose: 5 mg Spironolactone (Aldactone) 25 mg PO DAILY [facility] Last Admin: 09/08/17 09:11 Dose: 25 mg - Labs Labs: 09/08/17 08:10 09/08/17 08:10 - Constitutional Appears: No Acute Distress - Head Exam Head Exam: ATRAUMATIC, NORMOCEPHALIC - Eye Exam Eye Exam: EOMI, PERRL - ENT Exam ENT Exam: Mucous Membranes Moist - Respiratory Exam Respiratory Exam: Clear to Ausculation Bilateral. absent: Rales, Rhonchi, Wheezes - Cardiovascular Exam Cardiovascular Exam: Irregular Rhythm, +S1, +S2 - GI/Abdominal Exam GI & Abdominal Exam: Distended, Soft, Tenderness (diffuse), Normal Bowel Sounds - Extremities Exam Extremities Exam: Calf Tenderness (bilateral), Pedal Edema (improving bilaterally) Additional comments: Varicose veins bilateral legs. Skin on bilateral LE dark purple, mottled Toes blue in color Feet are cold to touch - Neurological Exam Neurological Exam: Alert, Awake, Oriented x3 - Psychiatric Exam Psychiatric exam: Anxious - Skin Skin Exam: Dry, Warm Assessment and Plan - Assessment and Plan (Free Text) Plan: Bilateral LE edema No DVT on dopplers but superficial phlebitis of left great saphenous vein at the level of the knee along with valvular incompetence of the left great saphenous vein. The right leg was unremarkable. Repeat dopplers ordered on 09/09/17 Abdominal Pain Lipase mildly elevated at 325 Tolerating diet at this time Systolic CHF exacerbation BNP 8670 ECHO (02/2017): LV systolic function severely reduced. LV mildly dilated. Severe global hypokinesis of LV. Negative for endocarditis. Lasix 40mg IV daily Continue home medications: Aldactone 25mg PO daily Fluid restriction Daily weights, I/Os History of atrial fibrillation In rapid A fib with RVR in the ED Continue home medications: Cardizem 30mg PO QID Digoxin 0.125mg PO daily Amiodarone 200mg PO daily Continue to monitor with telemetry CHADS score of 2 points. Patient currently only taking ASA 81mg PO daily. No anticoagulation per Dr. Ocampo due to risk of splenic infarct converting to hemorrhagic. Hypertension Well controlled at this time Monitor vitals q4h Lasix 80mg IV given this morning Continue home medications: Vasotec 10mg PO daily Aldactone 25mg PO daily History of coronary artery disease Continue home medications: Aspirin 81mg PO daily Crestor 5mg PO HS History of COPD Continue home medications: Duoneb Q6 prn Singulair 10 mg PO HS Anxiety and depression Prozac 40mg po daily Xanax 1mg po Q6H PRN Chronic Back Pain secondary to Lumbar Spine DJD Continue home meds: Percocet 2 tabs PO q6h prn Dilaudid 1 mg IV Q6 prn added on 09/07/17 Gabapentin 300 mg PO BID Added Benadryl PO Q6 prn to be given with the percocet if needed Hx Cocaine use Urine drug screen positive for cocaine on admission Avoid beta blockers at this time Counseled on cessation of illicit substances Tobacco abuse Nicotine patch TD daily Counseled on tobacco use cessation Prophylactic measure VTE ppx contraindicated due to risk of splenic infarct converting to hemorrhagic SCDs contraindicated due to b/l LE edema Protonix 40 mg IV Patient requesting regular diet Management as per Dr. Ocampo Case DW Dr. Terrence Urbina PGY-1 <Roque Ocampo Jr. - Last Filed: 09/13/17 12:11> Objective - Vital Signs/Intake and Output Vital Signs (last 24 hours): Temp Pulse Resp BP Pulse Ox 98.1 F 73 20 131/91 H 97 09/11/17 08:44 09/11/17 08:44 09/11/17 08:44 09/11/17 08:44 09/11/17 08:44 - Labs Labs: 09/11/17 07:07 09/11/17 07:07 Attending/Attestation - Attestation I have personally seen and examined this patient.: Yes I have fully participated in the care of the patient.: Yes I have reviewed all pertinent clinical information, including history, physical exam and plan: Yes Notes (Text): 09/13/17 12:11 Agree with resident note and plan of care
[2017-09-09] MEDS: Albuterol HFA 90 mcg/actuation (8 g) IH SCH (08:10)
[2017-09-09 08:36] LABS: BASO # 0.1 K/uL (0.0-0.2); BASO % 0.9 % (0.0-2.0); EOS # 0.3 K/uL (0.0-0.7); EOS % 3.2 % (0.0-4.0); LYMPH # 1.4 K/uL (1.0-4.3); LYMPH % 13.5 % (20.0-40.0); MEAN CELL VOLUME 76.5 fL (80.0-94.0); MEAN CORPUSCULAR HGB CONC 31.4 g/dL (33.0-37.0); MEAN PLATELET VOLUME 7.8 fL (7.2-11.7); MONO # 1.1 K/uL (0.0-0.8); MONO % 10.7 % (0.0-10.0); RED CELL DISTRIBUTION WIDTH 22.8 % (11.5-14.5); WHITE BLOOD COUNT 10.3 K/uL (4.8-10.8)
[2017-09-09 08:53] LABS: CHLORIDE 94 mmol/L (98-107); POTASSIUM 5.1 mmol/L (3.6-5.2); SODIUM 133 mmol/L (132-148)
[2017-09-09 08:55] LABS: ALB/GLOB RATIO 0.8 (1.0-2.1); ALKALINE PHOSPHATASE 71 U/L (38-126); AST/SGOT 50 U/L (17-59); BILIRUBIN,TOTAL 0.7 mg/dL (0.2-1.3); CARBON DIOXIDE 28 mmol/L (22-30); GFR AFRICAN-AMERICAN > 60; TOTAL PROTEIN 8.9 g/dL (6.3-8.3)
[2017-09-09 08:56] LABS: ALT/SGPT 57 U/L (21-72); BLOOD UREA NITROGEN 22 mg/dL (9-20); CALCIUM 9.3 mg/dl (8.6-10.4); GLUCOSE,RANDOM 101 mg/dL (75-110)
[2017-09-09] MEDS ORDERED: DiphenhydrAMINE 50 mg/ml Inj IVP ONE (09:27)
[2017-09-09] MEDS: Digoxin 125 mcg (0.125 mg) Tab PO SCH (17:33)
[2017-09-09 17:35] VITALS: PULSE 87
[2017-09-09] MEDS: Albuterol-Ipratrop 3 mg / 0.5 (3 ml) UD INH SCH (19:23)
[2017-09-09] MEDS: Silver Sulfadiazine 1% Cream (20 gm) TOP SCH (20:01)
[2017-09-10] MEDS: Albuterol-Ipratrop 3 mg / 0.5 (3 ml) UD INH SCH ×4 (01:12→20:02)
[2017-09-10] MEDS: Oxycodone/Acetaminophen 5/325 mg Tab PO PRN ×4 (02:08→22:44)
[2017-09-10 08:54] LABS: BASO # 0.1 K/uL (0.0-0.2); BASO % 0.9 % (0.0-2.0); EOS # 0.4 K/uL (0.0-0.7); HEMATOCRIT 45.2 % (35.0-51.0); LYMPH # 2.1 K/uL (1.0-4.3); LYMPH % 19.6 % (20.0-40.0); MEAN CELL VOLUME 77.8 fL (80.0-94.0); MEAN CORPUSCULAR HEMOGLOBIN 24.4 pg (27.0-31.0); MEAN CORPUSCULAR HGB CONC 31.4 g/dL (33.0-37.0); MEAN PLATELET VOLUME 7.7 fL (7.2-11.7); MONO # 1.5 K/uL (0.0-0.8); MONO % 13.7 % (0.0-10.0); RED CELL DISTRIBUTION WIDTH 21.8 % (11.5-14.5); WHITE BLOOD COUNT 10.7 K/uL (4.8-10.8)
[2017-09-10 08:59] LABS: CHLORIDE 92 mmol/L (98-107); POTASSIUM 5.3 mmol/L (3.6-5.2); SODIUM 133 mmol/L (132-148)
[2017-09-10 09:02] LABS: ALB/GLOB RATIO 0.9 (1.0-2.1); ALKALINE PHOSPHATASE 74 U/L (38-126); ALT/SGPT 57 U/L (21-72); AST/SGOT 55 U/L (17-59); BILIRUBIN,TOTAL 0.8 mg/dL (0.2-1.3); BLOOD UREA NITROGEN 25 mg/dL (9-20); CALCIUM 9.2 mg/dl (8.6-10.4); CARBON DIOXIDE 28 mmol/L (22-30); GFR AFRICAN-AMERICAN > 60; GLUCOSE,RANDOM 83 mg/dL (75-110); TOTAL PROTEIN 9.1 g/dL (6.3-8.3)
[2017-09-10] MEDS: Silver Sulfadiazine 1% Cream (20 gm) TOP SCH ×2 (14:12→18:00)
--- NOTE | 2017-09-10 17:17 | CP.PCM.PN ---
<Slim Urbina - Last Filed: 09/10/17 19:20> Subjective - Date & Time of Evaluation Date of Evaluation: 09/10/17 Time of Evaluation: 10:00 - Subjective Subjective: PGY-[address] Ocapmo Patient seen and examined at bedside. Patient complaining of his chronic bilateral lower extremity pain (right >left) as well as his chronic abdominal pain. Patient denies fever, chills, chest pain, dyspnea, dysuria. Objective - Vital Signs/Intake and Output Vital Signs (last 24 hours): Temp Pulse Resp BP Pulse Ox 97.6 F 53 L 18 117/77 95 09/10/17 15:49 09/10/17 15:49 09/10/17 15:49 09/10/17 15:49 09/10/17 15:49 Intake and Output: 09/10/17 09/10/17 06:59 18:59 Intake Total 400 480 Output Total 800 Balance 400 -320 - Medications Medications: Current Medications Albuterol/Ipratropium (Duoneb 3 Mg/0.5 Mg (3 Ml) Ud) 3 ml INH RQ6 [facility] Last Admin: 09/10/17 14:07 Dose: 3 ml Alprazolam (Xanax) 1 mg PO Q6 PRN PRN Reason: Anxiety Last Admin: 09/10/17 05:19 Dose: 1 mg Amiodarone HCl (Cordarone) 200 mg PO DAILY [facility] Last Admin: 09/10/17 09:07 Dose: 200 mg Aspirin (Aspirin Chewable) 81 mg PO DAILY [facility] Last Admin: 09/10/17 09:07 Dose: 81 mg Digoxin (Lanoxin) 0.125 mg PO DAILY@1800 [facility] Last Admin: 09/09/17 17:33 Dose: 0.125 mg Diltiazem HCl (Cardizem) 30 mg PO QID [facility] Last Admin: 09/10/17 14:10 Dose: 30 mg Diphenhydramine HCl (Benadryl) 25 mg PO Q6 PRN PRN Reason: Itching / Pruritus Last Admin: 09/10/17 15:14 Dose: 25 mg Fluoxetine HCl (Prozac) 40 mg PO DAILY [facility] Last Admin: 09/10/17 09:08 Dose: 40 mg Gabapentin (Neurontin) 300 mg PO BID [facility] Last Admin: 09/10/17 09:07 Dose: 300 mg Hydromorphone HCl (Dilaudid) 1 mg IVP Q6H PRN PRN Reason: Pain, severe (8-10) Last Admin: 09/10/17 12:14 Dose: 1 mg Lorazepam (Ativan) 1 mg IVP Q6H PRN PRN Reason: Anxiety, IF NPO Montelukast Sodium (Singulair) 10 mg PO HS [facility] Last Admin: 09/09/17 23:12 Dose: 10 mg Nicotine (Nicoderm Cq) 1 patch TD DAILY [facility] Last Admin: 09/10/17 09:08 Dose: 1 patch Ondansetron HCl (Zofran Inj) 4 mg IVP Q6H PRN PRN Reason: Nausea/Vomiting Oxycodone/Acetaminophen (Percocet 5/325 Mg Tab) 2 tab PO Q6H PRN PRN Reason: Pain, severe (8-10) Stop: 09/12/17 23:32 Last Admin: 09/10/17 15:13 Dose: 2 tab Pantoprazole Sodium (Protonix Inj) 60 mg IVP DAILY [facility] Last Admin: 09/10/17 09:13 Dose: 60 mg Rosuvastatin Calcium (Crestor) 5 mg PO [facility] Last Admin: 09/09/17 23:11 Dose: 5 mg Silver Sulfadiazine (Silvadene 1% 20 Gm) 1 ea TOP BID [facility] Last Admin: 09/10/17 14:12 Dose: 1 applic Spironolactone (Aldactone) 25 mg PO DAILY [facility] Last Admin: 09/10/17 09:07 Dose: 25 mg - Labs Labs: 09/10/17 08:30 09/10/17 08:30 - Constitutional Appears: No Acute Distress - Head Exam Head Exam: ATRAUMATIC, NORMOCEPHALIC - Eye Exam Eye Exam: EOMI, PERRL - ENT Exam ENT Exam: Mucous Membranes Moist - Respiratory Exam Respiratory Exam: Clear to Ausculation Bilateral. absent: Rales, Rhonchi, Wheezes - Cardiovascular Exam Cardiovascular Exam: Irregular Rhythm, +S1, +S2 - GI/Abdominal Exam GI & Abdominal Exam: Distended, Soft, Tenderness (diffuse), Normal Bowel Sounds - Extremities Exam Extremities Exam: Calf Tenderness (bilaterally), Pedal Edema (bilateral pitting) Additional comments: Varicose veins bilateral legs. Skin on bilateral LE dark purple, mottled Toes blue in color Feet are cold to touch - Neurological Exam Neurological Exam: Alert, Awake, Oriented x3 - Psychiatric Exam Psychiatric exam: Anxious - Skin Skin Exam: Dry, Warm Assessment and Plan - Assessment and Plan (Free Text) Plan: Bilateral LE edema No DVT on dopplers but superficial phlebitis of left great saphenous vein at the level of the knee along with valvular incompetence of the left great saphenous vein. The right leg was unremarkable. Repeat dopplers ordered on 09/09/17. It showed Left great saphenous vein superficial clot but no DVT. No clots in the right leg. Abdominal Pain Lipase mildly elevated at 325 Tolerating diet at this time Systolic CHF exacerbation BNP 8670 ECHO (02/2017): LV systolic function severely reduced. LV mildly dilated. Severe global hypokinesis of LV. Negative for endocarditis. Lasix 40mg IV daily Continue home medications: Aldactone 25mg PO daily Fluid restriction Daily weights, I/Os History of atrial fibrillation In rapid A fib with RVR in the ED Continue home medications: Cardizem 30mg PO QID Digoxin 0.125mg PO daily Amiodarone 200mg PO daily Continue to monitor with telemetry CHADS score of 2 points. Patient currently only taking ASA 81mg PO daily. No anticoagulation per Dr. Ocampo due to risk of splenic infarct converting to hemorrhagic. Hypertension Well controlled at this time Monitor vitals q4h Lasix 80mg IV given this morning Continue home medications: Vasotec 10mg PO daily Aldactone 25mg PO daily History of coronary artery disease Continue home medications: Aspirin 81mg PO daily Crestor 5mg PO HS History of COPD Continue home medications: Duoneb Q6 prn Singulair 10 mg PO HS Anxiety and depression Prozac 40mg po daily Xanax 1mg po Q6H PRN Chronic Back Pain secondary to Lumbar Spine DJD Continue home meds: Percocet 2 tabs PO q6h prn Dilaudid 1 mg IV Q6 prn added on 09/07/17 Gabapentin 300 mg PO BID Added Benadryl PO Q6 prn to be given with the percocet if needed Hx Cocaine use Urine drug screen positive for cocaine on admission Avoid beta blockers at this time Counseled on cessation of illicit substances Tobacco abuse Nicotine patch TD daily Counseled on tobacco use cessation Prophylactic measure VTE ppx contraindicated due to risk of splenic infarct converting to hemorrhagic SCDs contraindicated due to b/l LE edema Protonix 60 mg IV Patient requesting regular diet Management as per Dr. Terrence Holm DW Dr. Terrence Urbina PGY-1 <Roque Ocampo Jr. - Last Filed: 09/13/17 12:13> Objective - Vital Signs/Intake and Output Vital Signs (last 24 hours): Temp Pulse Resp BP Pulse Ox 98.1 F 73 20 131/91 H 97 09/11/17 08:44 09/11/17 08:44 09/11/17 08:44 09/11/17 08:44 09/11/17 08:44 - Labs Labs: 09/11/17 07:07 09/11/17 07:07 Attending/Attestation - Attestation I have personally seen and examined this patient.: Yes I have fully participated in the care of the patient.: Yes I have reviewed all pertinent clinical information, including history, physical exam and plan: Yes Notes (Text): 09/13/17 12:13 Agree with resident note and plan of care
[2017-09-10] MEDS: Digoxin 125 mcg (0.125 mg) Tab PO SCH (18:00)
[2017-09-11 00:46] VITALS: RESP 20
[2017-09-11] MEDS: Albuterol-Ipratrop 3 mg / 0.5 (3 ml) UD INH SCH ×2 (01:28→07:31)
[2017-09-11] MEDS: Oxycodone/Acetaminophen 5/325 mg Tab PO PRN (05:05)
--- NOTE | 2017-09-11 07:09 | CP.PCM.PN ---
Subjective - Subjective Subjective: PGY-[address] Ocampo Patient seen and examined at bedside. Patient complaining of his chronic bilateral lower extremity pain (right >left) as well as his chronic abdominal pain. Patient denies fever, chills, chest pain, dyspnea, dysuria. Objective - Vital Signs/Intake and Output Vital Signs (last 24 hours): Temp Pulse Resp BP Pulse Ox 97.6 F 102 H 20 110/49 L 98 09/10/17 23:50 09/11/17 00:09 09/10/17 23:50 09/10/17 23:50 09/10/17 23:50 Intake and Output: 09/11/17 09/11/17 06:59 18:59 Output Total 2450 Balance -2450 - Medications Medications: Current Medications Albuterol/Ipratropium (Duoneb 3 Mg/0.5 Mg (3 Ml) Ud) 3 ml INH RQ6 [facility] Last Admin: 09/11/17 01:28 Dose: Not Given Alprazolam (Xanax) 1 mg PO Q6 PRN PRN Reason: Anxiety Last Admin: 09/11/17 00:00 Dose: 1 mg Amiodarone HCl (Cordarone) 200 mg PO DAILY [facility] Last Admin: 09/10/17 09:07 Dose: 200 mg Aspirin (Aspirin Chewable) 81 mg PO DAILY [facility] Last Admin: 09/10/17 09:07 Dose: 81 mg Digoxin (Lanoxin) 0.125 mg PO DAILY@1800 [facility] Last Admin: 09/10/17 18:00 Dose: Not Given Diltiazem HCl (Cardizem) 30 mg PO QID [facility] Last Admin: 09/10/17 22:42 Dose: 30 mg Diphenhydramine HCl (Benadryl) 25 mg PO Q6 PRN PRN Reason: Itching / Pruritus Last Admin: 09/11/17 05:05 Dose: 25 mg Fluoxetine HCl (Prozac) 40 mg PO DAILY [facility] Last Admin: 09/10/17 09:08 Dose: 40 mg Gabapentin (Neurontin) 300 mg PO BID [facility] Last Admin: 09/10/17 22:43 Dose: 300 mg Hydromorphone HCl (Dilaudid) 1 mg IVP Q6H PRN PRN Reason: Pain, severe (8-10) Last Admin: 09/11/17 02:07 Dose: 1 mg Lorazepam (Ativan) 1 mg IVP Q6H PRN PRN Reason: Anxiety, IF NPO Montelukast Sodium (Singulair) 10 mg PO HS [facility] Last Admin: 09/10/17 22:44 Dose: 10 mg Nicotine (Nicoderm Cq) 1 patch TD DAILY [facility] Last Admin: 09/10/17 09:08 Dose: 1 patch Ondansetron HCl (Zofran Inj) 4 mg IVP Q6H PRN PRN Reason: Nausea/Vomiting Last Admin: 09/10/17 20:25 Dose: 4 mg Oxycodone/Acetaminophen (Percocet 5/325 Mg Tab) 2 tab PO Q6H PRN PRN Reason: Pain, severe (8-10) Stop: 09/12/17 23:32 Last Admin: 09/11/17 05:05 Dose: 2 tab Pantoprazole Sodium (Protonix Inj) 60 mg IVP DAILY [facility] Last Admin: 09/10/17 09:13 Dose: 60 mg Rosuvastatin Calcium (Crestor) 5 mg PO [facility] Last Admin: 09/10/17 22:43 Dose: 5 mg Silver Sulfadiazine (Silvadene 1% 20 Gm) 1 ea TOP BID [facility] Last Admin: 09/10/17 18:00 Dose: Not Given Spironolactone (Aldactone) 25 mg PO DAILY [facility] Last Admin: 09/10/17 09:07 Dose: 25 mg - Labs Labs: 09/10/17 08:30 09/10/17 08:30 - Constitutional Appears: No Acute Distress - Head Exam Head Exam: ATRAUMATIC, NORMOCEPHALIC - Eye Exam Eye Exam: EOMI, PERRL - ENT Exam ENT Exam: Mucous Membranes Moist - Respiratory Exam Respiratory Exam: Clear to Ausculation Bilateral. absent: Rales, Rhonchi, Wheezes - Cardiovascular Exam Cardiovascular Exam: Irregular Rhythm, +S1, +S2 - GI/Abdominal Exam GI & Abdominal Exam: Distended, Soft, Normal Bowel Sounds. absent: Tenderness - Extremities Exam Extremities Exam: Calf Tenderness (bilateral), Pedal Edema (bilateral pitting edema right>left) Additional comments: Varicose veins bilateral legs. Skin on bilateral LE dark purple, mottled Toes blue in color Feet are cold to touch - Neurological Exam Neurological Exam: Alert, Awake, Oriented x3 - Psychiatric Exam Psychiatric exam: Anxious - Skin Skin Exam: Dry, Warm Assessment and Plan - Assessment and Plan (Free Text) Plan: Bilateral LE edema No DVT on dopplers but superficial phlebitis of left great saphenous vein at the level of the knee along with valvular incompetence of the left great saphenous vein. The right leg was unremarkable. Repeat dopplers ordered on 09/09/17. It showed Left great saphenous vein superficial clot but no DVT. No clots in the right leg. Abdominal Pain Lipase mildly elevated at 325 Tolerating diet at this time Systolic CHF exacerbation BNP 8670 ECHO (02/2017): LV systolic function severely reduced. LV mildly dilated. Severe global hypokinesis of LV. Negative for endocarditis. Lasix 40mg IV daily Continue home medications: Aldactone 25mg PO daily Fluid restriction Daily weights, I/Os History of atrial fibrillation In rapid A fib with RVR in the ED Continue home medications: Cardizem 30mg PO QID Digoxin 0.125mg PO daily Amiodarone 200mg PO daily Continue to monitor with telemetry CHADS score of 2 points. Patient currently only taking ASA 81mg PO daily. No anticoagulation per Dr. Ocampo due to risk of splenic infarct converting to hemorrhagic. Hypertension Well controlled at this time Monitor vitals q4h Lasix 80mg IV given this morning Continue home medications: Vasotec 10mg PO daily Aldactone 25mg PO daily History of coronary artery disease Continue home medications: Aspirin 81mg PO daily Crestor 5mg PO HS History of COPD Continue home medications: Duoneb Q6 prn Singulair 10 mg PO HS Anxiety and depression Prozac 40mg po daily Xanax 1mg po Q6H PRN Chronic Back Pain secondary to Lumbar Spine DJD Continue home meds: Percocet 2 tabs PO q6h prn Dilaudid 1 mg IV Q6 prn added on 09/07/17 Gabapentin 300 mg PO BID Added Benadryl PO Q6 prn to be given with the percocet if needed Hx Cocaine use Urine drug screen positive for cocaine on admission Avoid beta blockers at this time Counseled on cessation of illicit substances Tobacco abuse Nicotine patch TD daily Counseled on tobacco use cessation Prophylactic measure VTE ppx contraindicated due to risk of splenic infarct converting to hemorrhagic SCDs contraindicated due to b/l LE edema Protonix 60 mg IV Patient requesting regular diet Management as per Dr. Ocampo
[2017-09-11 07:22] LABS: BASO # 0.1 K/uL (0.0-0.2); EOS # 0.4 K/uL (0.0-0.7); EOS % 3.6 % (0.0-4.0); HEMATOCRIT 45.7 % (35.0-51.0); LYMPH # 1.5 K/uL (1.0-4.3); MEAN CORPUSCULAR HEMOGLOBIN 24.7 pg (27.0-31.0); MEAN CORPUSCULAR HGB CONC 31.6 g/dL (33.0-37.0); MEAN PLATELET VOLUME 7.6 fL (7.2-11.7); MONO # 1.3 K/uL (0.0-0.8); MONO % 12.3 % (0.0-10.0); WHITE BLOOD COUNT 10.3 K/uL (4.8-10.8)
[2017-09-11 08:01] LABS: CHLORIDE 88 mmol/L (98-107); POTASSIUM 4.8 mmol/L (3.6-5.2); SODIUM 134 mmol/L (132-148)
[2017-09-11 08:03] LABS: ALB/GLOB RATIO 0.8 (1.0-2.1); ALKALINE PHOSPHATASE 87 U/L (38-126); AST/SGOT 72 U/L (17-59); BILIRUBIN,TOTAL 0.7 mg/dL (0.2-1.3); CARBON DIOXIDE 36 mmol/L (22-30); GFR AFRICAN-AMERICAN > 60; TOTAL PROTEIN 9.2 g/dL (6.3-8.3)
[2017-09-11 08:04] LABS: ALT/SGPT 57 U/L (21-72); BLOOD UREA NITROGEN 26 mg/dL (9-20); CALCIUM 9.3 mg/dl (8.6-10.4); GLUCOSE,RANDOM 92 mg/dL (75-110)
[2017-09-11 08:45] VITALS: BP 131/91; PULSE 73; TEMP 98.1; O2SAT 97
--- NOTE | 2017-09-11 10:17 | CP.PCM.DIS ---
Provider - Provider Date of Admission: 09/06/17 18:09 Attending physician: Roque Ocampo Jr, MD Time Spent in preparation of Discharge (in minutes): 40 Diagnosis - Discharge Diagnosis (1) Bilateral lower extremity edema Status: Acute (2) Systolic CHF, acute on chronic Status: Acute (3) History of hypertension Status: Chronic (4) Lumbar disc disease Status: Chronic (5) History of cocaine abuse Status: Acute (6) Counseling on substance use and abuse Status: Acute (7) Abdominal pain Status: Chronic (8) Anxiety and depression Status: Chronic (9) Chronic back pain Status: Chronic (10) History of COPD Status: Chronic (11) History of atrial fibrillation Status: Chronic (12) History of coronary artery disease Status: Chronic (13) Prophylactic measure Status: Acute Hospital Course - Lab Results Lab Results: Most Recent Lab Values WBC 10.3 K/uL (4.8-10.8) 09/11/17 07:07 RBC 5.86 Mil/uL (4.40-5.90) 09/11/17 07:07 Hgb 14.4 g/dL (12.0-18.0) 09/11/17 07:07 Hct 45.7 % (35.0-51.0) 09/11/17 07:07 MCV 78.0 fL (80.0-94.0) L 09/11/17 07:07 MCH 24.7 pg (27.0-31.0) L 09/11/17 07:07 MCHC 31.6 g/dL (33.0-37.0) L 09/11/17 07:07 RDW 22.0 % (11.5-14.5) H 09/11/17 07:07 Plt Count 296 K/uL (130-400) 09/11/17 07:07 MPV 7.6 fL (7.2-11.7) 09/11/17 07:07 Neut % (Auto) 68.1 % (50.0-75.0) 09/11/17 07:07 Lymph % (Auto) 15.0 % (20.0-40.0) L 09/11/17 07:07 Elk % (Auto) 12.3 % (0.0-10.0) H 09/11/17 07:07 Eos % (Auto) 3.6 % (0.0-4.0) 09/11/17 07:07 Baso % (Auto) 1.0 % (0.0-2.0) 09/11/17 07:07 Neut # 7.0 K/uL (1.8-7.0) 09/11/17 07:07 Lymph # 1.5 K/uL (1.0-4.3) 09/11/17 07:07 Elk # 1.3 K/uL (0.0-0.8) H 09/11/17 07:07 Eos # 0.4 K/uL (0.0-0.7) 09/11/17 07:07 Baso # 0.1 K/uL (0.0-0.2) 09/11/17 07:07 Sodium 134 mmol/L (132-148) 09/11/17 07:07 Potassium 4.8 mmol/L (3.6-5.2) 09/11/17 07:07 Chloride 88 mmol/L (98-107) L 09/11/17 07:07 Carbon Dioxide 36 mmol/L (22-30) H 09/11/17 07:07 Anion Gap 15 (10-20) 09/11/17 07:07 BUN 26 mg/dL (9-20) H 09/11/17 07:07 Creatinine 1.0 mg/dL (0.8-1.5) 09/11/17 07:07 Est GFR ( Amer) > 60 09/11/17 07:07 Est GFR (Non-Af Amer) > 60 09/11/17 07:07 Random Glucose 92 mg/dL (75-110) 09/11/17 07:07 Calcium 9.3 mg/dl (8.6-10.4) 09/11/17 07:07 Total Bilirubin 0.7 mg/dL (0.2-1.3) 09/11/17 07:07 AST 72 U/L (17-59) H D 09/11/17 07:07 ALT 57 U/L (21-72) 09/11/17 07:07 Alkaline Phosphatase 87 U/L (38-126) 09/11/17 07:07 Troponin I 0.0570 ng/mL (0.00-0.120) 09/06/17 17:23 NT-Pro-B Natriuret Pep 8670 pg/mL (0-450) H 09/06/17 17:23 Total Protein 9.2 g/dL (6.3-8.3) H 09/11/17 07:07 Albumin 4.2 g/dL (3.5-5.0) 09/11/17 07:07 Globulin 5.1 gm/dL (2.2-3.9) H 09/11/17 07:07 Albumin/Globulin Ratio 0.8 (1.0-2.1) L 09/11/17 07:07 Lipase 321 U/L (23-300) H 09/06/17 17:23 Urine Color Straw (YELLOW) 09/06/17 18:00 Urine Clarity Clear (Clear) 09/06/17 18:00 Urine pH 6.0 (5.0-8.0) 09/06/17 18:00 Ur Specific [place] 1.008 (1.003-1.030) 09/06/17 18:00 Urine Protein Negative mg/dL (NEGATIVE) 09/06/17 18:00 Urine Glucose (UA) Normal mg/dL (Normal) 09/06/17 18:00 Urine Ketones Negative mg/dL (NEGATIVE) 09/06/17 18:00 Urine Blood Negative (NEGATIVE) 09/06/17 18:00 Urine Nitrate Negative (NEGATIVE) 09/06/17 18:00 Urine Bilirubin Negative (NEGATIVE) 09/06/17 18:00 Urine Urobilinogen Normal mg/dL (0.2-1.0) 09/06/17 18:00 Ur Leukocyte Esterase Neg Nancie/uL (Negative) 09/06/17 18:00 Urine WBC (Auto) < 1 /hpf (0-5) 09/06/17 18:00 Urine RBC (Auto) < 1 /hpf (0-3) 09/06/17 18:00 Ur Squamous Epith Cells < 1 /hpf (0-5) 09/06/17 18:00 Urine Opiates Screen Negative (NEGATIVE) 09/06/17 18:00 Urine Methadone Screen Negative (NEGATIVE) 09/06/17 18:00 Ur Barbiturates Screen Negative (NEGATIVE) 09/06/17 18:00 Ur Phencyclidine Scrn Negative (NEGATIVE) 09/06/17 18:00 Ur Amphetamines Screen Negative (NEGATIVE) 09/06/17 18:00 U Benzodiazepines Scrn Negative (NEGATIVE) 09/06/17 18:00 U Oth Cocaine Metabols Positive (NEGATIVE) 09/06/17 18:00 U Cannabinoids Screen Negative (NEGATIVE) 09/06/17 18:00 Influenza Typ A,B (EIA) Negative for flu a/b (NEGATIVE) 09/06/17 17:30 - Hospital Course Hospital Course: On admission: "47 year old male with PMHx of CHF, COPD, HTN, polysubstance abuse, chronic back pain, tobacco abuse, depression, and anxiety who frequently is in the hospital presents to the ED complaining of leg swelling. He was last seen and discharged from [facility] on 08/21/17. Today the patient came in because he noticed that his lower extremity swelling was getting worse. Per patient, his legs are always swollen but they turned darker purple in color and have become more painful over the past 2 days. The patient states that he also has abdominal pain on the left side of his abdomen. His last bowel movement was yesterday and normal. Patient says he took all of his medications at home as prescribed today. He denies fever, chills, nausea, vomiting, change in bowel movements, diarrhea, constipation, dizziness, recent fall, headache, change in vision, and recent illness. All other ROS negative. The patient was given Lasix 40mg IV x1 and Ativan in the ED." Hospital Course: Patient admitted for exacerbation of systolic CHF, Afib with RVR, and leg pain secondary to peripheral vascular disease. BNP was over 8000 and CXR showed vascular congestion not seen on prior recent admission. Patient was treated with IV lasix for diuresis and CHF clinically improved. Patient complaining of leg pain. Dopplers ordered. No DVT, but Left leg had a superficial clot at the great saphenous vein at the level of the knee posteriorly. Unable to anticoagulate patient due to risk of splenic infarct converting to hemorrhagic. Anti-embolism stockings ordered for the right leg which was more edematous than the left. Patient counselled on cessation of cocaine. The patient declined further treatment in the hospital. This action was against my medical advice. This decision was made with informed refusal. The patient was told that further treatment was necessary. Explanation of the reasons why were discussed. The risks of leaving were explained to the patient and include, but are not limited to, worsening of known or currently unknown conditions, permanent disability and from undiagnosed or untreated conditions. The patient has the capacity to make this informed decision and understands my explanation of the current medical problem and risks of leaving. The patient voluntarily accepts these risks and signed an AMA form documenting our conversation. The patient was given the opportunity to ask questions and reconsider. The patient was encouraged to return to the Emergency Department at any time for further care. This is a summary of the hospital course. For more information, refer to the medical records. Discharge Exam - Head Exam Head Exam: ATRAUMATIC, NORMOCEPHALIC - Eye Exam Eye Exam: EOMI, PERRL - ENT Exam ENT Exam: Mucous Membranes Moist - Respiratory Exam Respiratory Exam: Clear to PA & Lateral, NORMAL BREATHING PATTERN. absent: Rales, Rhonchi, Wheezes - Cardiovascular Exam Cardiovascular Exam: Irregular Rhythm, +S1, +S2. absent: Tachycardia - GI/Abdominal Exam GI & Abdominal Exam: Distended, Normal Bowel Sounds, Soft, Tenderness (chronic diffuse) - Extremities Exam Extremities exam: pedal edema (bilateral), tenderness (left leg) - Neurological Exam Neurological exam: Alert, CN II-XII Intact, Oriented x3 - Psychiatric Exam Psychiatric exam: Anxious - Skin Skin Exam: Dry, Warm Discharge Plan - Follow Up Plan Condition: UNKNOWN Disposition: AGAINST MEDICAL ADVICE Clinical Quality Measures - CQM - Heart Failure Ejection Fraction: 40 % or Greater Left Ventricular Function to be assessed after discharge: No SHONDA Inhibitor Prescribed: No Contraindication/Reason for not providing: AMA. Has home Enalapril Beta-Yonis Prescribed: None Contraindication/Reason for not providing: contraindicated in cocaine user Angiotensin II Receptor Yonis Prescribed: No Contraindication/Reason for not providing: AMA. Has home Enalapril AnticoagulationTherapy for Atrial Fibrillation/Atrialflutter: No Contraindication/Reason for not providing: Risk of splenic infarct converting to hemorrhagic Aldosterone Antagonist Prescribed: No Contraindication/Reason for not providing: AMA. Has home aldactone Hydralazine Nitrate Prescribed: No Contraindication/Reason for not providing: AMA. not indicated Implantable Cardioverter Defibrillator Therapy: No Contraindication/Reason for not providing: not indicated Cardiac Resynchronization Therapy Prescribed: No Contraindication/Reason for not providing: not indicated Will be discharged to: Home Follow Up Date (must be within 7 days from discharge): 09/18/17 (AMA) Follow Up Time: 09:00
--- NOTE | 2017-09-11 14:40 | VASCLAB ---
PROCEDURE: Lower Extremity Venous Duplex Exam. HISTORY: Worsening lower extremity swelling PRIORS: 09/08/2017,normal. TECHNIQUE: Bilateral common femoral, femoral, popliteal and posterior tibial, peroneal and great saphenous veins were evaluated. Flow was assessed with color Doppler, compressibility, assessment of phasic flow and augmentation response. Report prepared by SERA Molina FINDINGS: RIGHT: 1. Common Femoral Vein: 1.1. Compressibility - Fully compressible: Thrombus - None : Flow - Phasic: Augmentation -Normal: Reflux - None. 2. Femoral Vein: 2.1. Compressibility - Fully compressible: Thrombus - None : Flow - Phasic: Augmentation -Normal: Reflux - None. 3. Popliteal Vein: 3.1. Compressibility - Fully compressible: Thrombus - None : Flow - Phasic: Augmentation -Normal: Reflux - None. 4. Posterior Tibial Vein: 4.1. Compressibility - Fully compressible: Thrombus - None: Flow - Phasic: Augmentation -Normal: Reflux - None. 5. Peroneal Vein: 5.1. Unable to visualize. 6. Great Saphenous Vein: 6.1. Compressibility - Fully compressible: Thrombus - None: Flow - Phasic: Augmentation - Normal: Reflux - None. LEFT: 1. Common Femoral Vein: 1.1. Compressibility - Fully compressible: Thrombus - None: Flow - Phasic: Augmentation -Normal: Reflux - None. 2. Femoral Vein: 2.1. Compressibility - Fully compressible: Thrombus - None: Flow - Phasic: Augmentation -Normal: Reflux - None. 3. Popliteal Vein: 3.1. Compressibility - Fully compressible: Thrombus - None : Flow - Phasic: Augmentation -Normal: Reflux - None. 4. Posterior Tibial Vein: 4.1. Compressibility - Fully compressible: Thrombus - None: Flow - Phasic: Augmentation -Normal: Reflux - None. 5. Peroneal Vein: 5.1. Compressibility - Fully compressible: Thrombus - None: Flow - Phasic: Augmentation -Normal: Reflux - None. 6. Great Saphenous Vein: 6.1. Compressibility - Incompressible: Thrombus - Chronic: Flow - Phasic: Augmentation - Normal: Reflux - None. OTHER FINDINGS: Right: Unable to visualize the right peroneal veins, due to swelling. Left: None significant. IMPRESSION: Right: No evidence of deep or superficial vein thrombosis of the right lower extremity, for the imaged veins. Left: Superficial phlebitis of the left great saphenous vein, at the knee level. No evidence of deep vein thrombosis of the left lower extremity.
== END 2017-09-11 11:00 | disposition left against medical advice (07) | DRG 293 ==
LOC: C.ER 16:43 → C.9E 18:09 → C.6T 09-07 02:16
PROVIDERS: ADMIT Internal Medicine; ATTEND Internal Medicine
DX: I11.0 Hypertensive heart disease with heart failure (principal); I50.23 Acute on chronic systolic (congestive) heart failure; E11.51 Type 2 diabetes mellitus with diabetic peripheral angiopathy without gangrene; I80.9 Phlebitis and thrombophlebitis of unspecified site; I48.91 Unspecified atrial fibrillation; I25.10 Atherosclerotic heart disease of native coronary artery without angina pectoris; J44.9 Chronic obstructive pulmonary disease, unspecified; G47.33 Obstructive sleep apnea (adult) (pediatric); M47.896 Other spondylosis, lumbar region; G89.29 Other chronic pain; E78.00 Pure hypercholesterolemia, unspecified; F31.9 Bipolar disorder, unspecified; F41.9 Anxiety disorder, unspecified; Z95.5 Presence of coronary angioplasty implant and graft; Z87.891 Personal history of nicotine dependence; Z79.84 Long term (current) use of oral hypoglycemic drugs

== ENCOUNTER 2017-10-07 09:36 | Inpatient (IN) | payer MEDICARE, MEDICAID ==
[2017-10-07 09:36] VITALS: BMI 38.7
--- NOTE | 2017-10-07 10:09 | C.PDOC ---
History Of Present Illness 47 y/o male presents to ED for evaluation of shortness of breath since yesterday. Notes having history of blood clots, states that he was taken off of Coumadin. Denies cough, chest pain, or other complaints. Time Seen by Provider: 10/07/17 09:44 Chief Complaint (Nursing): Chest Pain History Per: Patient History/Exam Limitations: no limitations Onset/Duration Of Symptoms: Days (1) Current Symptoms Are (Timing): Still Present Severity: None Pain Scale Rating Of: 0 Exacerbating Factors: None Alleviating Factors: None Recent travel outside of the [place]: No Additional History Per: Patient Past Medical History Reviewed: Historical Data, Nursing Documentation, Vital Signs Vital Signs: Last Vital Signs Temp 98.8 F 10/07/17 10:23 Pulse 102 H 10/07/17 11:47 Resp 18 10/07/17 11:47 BP 130/100 H 10/07/17 11:47 Pulse Ox 98 10/07/17 12:49 - Medical History PMH: Anxiety, Arthritis, Asthma, Atrial Fibrillation, Back Problems, Bipolar Disorder, CAD, Cardia Arrhythmia, CHF, COPD, Depression, HTN, Hypercholesterolemia, Peripheral Edema, Pneumonia, Sleep Apnea, Chronic Pain ( Lower Back Pain) Denies: Emphysema, Chronic Kidney Disease Surgical History: Appendectomy (2008), Coronary Stent (2008 - 2012 4 stents) - [facility] Procedures CORONAR ARTERIOGR-2 CATH (07/06/13) DRAINAGE OF SPLEEN, PERCUTANEOUS APPROACH (03/05/17) INJECT/INFUSE NEC (02/22/14) LEFT HEART CARDIAC CATH (07/06/13) LT HEART ANGIOCARDIOGRAM (07/06/13) NEBULIZER THERAPY (03/28/14) NON-INVASIVE MECHANICAL VENTILATION (03/26/15) TRANSFUSE NONAUT FROZEN PLASMA IN PERIPH VEIN, PERC (02/21/17) Family History: States: CAD, Diabetes - Social History Hx Tobacco Use: Yes Hx Alcohol Use: Yes Hx Substance Use: Yes - Immunization History Hx Tetanus Toxoid Vaccination: Yes Hx Influenza Vaccination: Yes Hx Pneumococcal Vaccination: Yes (08/2014) Review Of Systems Except As Marked, All Systems Reviewed And Found Negative. Constitutional: Negative for: Fever, Chills Cardiovascular: Negative for: Chest Pain, Palpitations Respiratory: Positive for: Shortness of Breath. Negative for: Cough, Sputum Gastrointestinal: Negative for: Nausea, Vomiting, Abdominal Pain Neurological: Negative for: Headache, Dizziness Physical Exam - Physical Exam Appears: Non-toxic, No Acute Distress, Other (obese) Skin: Normal Color, Warm, Dry Head: Atraumatic, Normacephalic Eye(s): bilateral: Normal Inspection Oral Mucosa: Moist Neck: Supple Chest: Symmetrical Cardiovascular: No Murmur, Other (tachycardic) Respiratory: No Rales, No Rhonchi, No Wheezing, Other (hyperventilating) Gastrointestinal/Abdominal: Soft, No Tenderness Extremity: Normal ROM, Pedal Edema (b/l) Neurological/Psych: Oriented x3, Normal Speech Gait: Steady ED Course And Treatment - Laboratory Results Result Diagrams: 10/07/17 09:57 10/07/17 09:57 Lab Interpretation: No Acute Changes Interpretation Of Abnormal: troponin 0.2 ECG: Interpreted By Me, Viewed By Me ECG Rhythm: Atrial Fibrillation ECG Interpretation: No Acute Changes Interpretation Of ECG: No acute ST/T wave changes. Rate From EC (bpm) O2 Sat by Pulse Oximetry: 98 Pulse Ox Interpretation: Normal - Radiology CXR: Interpreted by Me CXR Interpretation: Yes: Other (PVC) Progress Note: Patient found to be in A-Fib with RVR. Treated with cardizem 15 mg IV followed by cardizem drip @ 5 mg/hr. Treated with additional 5 mg cardizem IV. Treated with lasix 80 mg IV Reassessment Condition: Improved - Physician Consult Information Physician Contacted: Roque Ocampo Jr. Outcome Of Conversation: admit Medical Decision Making Medical Decision Making: Blood work, UA, CXR, EKG ordered and reviewed. Patient was given Cardizem, and IV fluids. Call placed to general medical practitioner Disposition Discussed With DrRanda: Roque Ocampo Jr. Doctor Will See Patient In The: Hospital - Disposition Disposition: HOSPITALIZED Disposition Time: 11:45 Condition: STABLE - POA Present On Arrival: None - Clinical Impression Clinical Impression: Chest pain, Atrial fibrillation with rapid ventricular response, Dyspnea - PA / INSOLE DEPARTMENT WORKER / Resident Statement MD/DO has reviewed & agrees with the documentation as recorded. - Scribe Statement The provider has reviewed the documentation as recorded by the Scribe Miriam Razo All medical record entries made by the Scribe were at my direction and personally dictated by me. I have reviewed the chart and agree that the record accurately reflects my personal performance of the history, physical exam, medical decision making, and the department course for this patient. I have also personally directed, reviewed, and agree with the discharge instructions and disposition. Decision To Admit - Pt Status Changed To: Hospital Disposition Of: Inpatient - Admit Certification Admit to Inpatient:: After my assessment, the patient will require hospitalization for at least two midnights. This is because of the severity of symptoms shown, intensity of services needed, and/or the medical risk in this patient being treated as an outpatient. - InPatient: Physician Admission Certification: I certify that this patient requires 2 or more midnights of care for the following reason:: CHF. A-Fib with RVR - . Bed Request Type: Telemetry Admitting Physician: Roque Ocampo Jr. Patient Diagnosis: Chest pain, Atrial fibrillation with rapid ventricular response, Dyspnea, CHF exacerbation
--- NOTE | 2017-10-07 10:20 | RAD ---
PROCEDURE: CHEST RADIOGRAPH, 1 VIEW HISTORY: SOB COMPARISON: Portable chest 09/06/2017. FINDINGS: LUNGS: No definite infiltrate is appreciated bilaterally. PLEURA: No pneumothorax or pleural fluid seen. CARDIOVASCULAR: Cardiomegaly and central and central hilar vascular markings appear diminishes with significant residual remaining however. OSSEOUS STRUCTURES: No significant abnormalities. VISUALIZED UPPER ABDOMEN: Normal. OTHER FINDINGS: None. IMPRESSION: Residual or recurrent CHF. No definite alveolitis or pleural effusion. Pattern appears improved compared 09/06/2017. Clinically correlate further.
[2017-10-07] MEDS: Sodium Chloride 0.9% 1,000 ML IV SCH ×2 (10:27→20:30)
[2017-10-07 10:32] LABS: BASO # 0.1 K/uL (0.0-0.2); EOS # 0.1 K/uL (0.0-0.7); EOS % 1.4 % (0.0-4.0); HEMATOCRIT 44.2 % (35.0-51.0); LYMPH # 1.3 K/uL (1.0-4.3); LYMPH % 12.4 % (20.0-40.0); MEAN CELL VOLUME 78.1 fL (80.0-94.0); MEAN CORPUSCULAR HEMOGLOBIN 25.2 pg (27.0-31.0); MEAN CORPUSCULAR HGB CONC 32.3 g/dL (33.0-37.0); MEAN PLATELET VOLUME 8.8 fL (7.2-11.7); MONO % 9.7 % (0.0-10.0); RED CELL DISTRIBUTION WIDTH 23.1 % (11.5-14.5); WHITE BLOOD COUNT 10.1 K/uL (4.8-10.8)
[2017-10-07 10:35] LABS: ALB/GLOB RATIO 0.8 (1.0-2.1); ALKALINE PHOSPHATASE 63 U/L (38-126); ALT/SGPT 33 U/L (21-72); AST/SGOT 31 U/L (17-59); BILIRUBIN,TOTAL 1.3 mg/dL (0.2-1.3); BLOOD UREA NITROGEN 18 mg/dL (9-20); CALCIUM 9.3 mg/dl (8.6-10.4); CARBON DIOXIDE 24 mmol/L (22-30); CHLORIDE 97 mmol/L (98-107); GFR AFRICAN-AMERICAN > 60; GLUCOSE,RANDOM 173 mg/dL (75-110); POTASSIUM 3.7 mmol/L (3.6-5.2); SODIUM 135 mmol/L (132-148)
--- NOTE | 2017-10-07 19:46 | CP.PCM.HP ---
History of Present Illness - History of Present Illness History of Present Illness: CC: "Shortness of breath, chest pain" HPI: Patient is a 47 year old male, with PMHx of HTN, CAD, CHF, Afib, COPD, ARLENE, Herniated discs L-spine, Bipolar/Depression, Asthma, hx of splenic infarct/ abscess, who presents to the emergency room complaining of sob and chest pain with palpitations. Patient states he began having chest pain yesterday and it has gradually worsened. He describes location as substernal without radiation. He states this AM, chest pain became associated with SOB and palpitations, "stating I couldn't believe how fast my heart was racing." Patient states he has been compliant with home Cardizem for atrial fibrillation. Patient states his pain is an 8/10, but has decreased since arriving in ED. He states he no longer takes Coumadin, per his PMDs decision. He denies fever, chills, abdominal pain, nausea, vomiting, or diarrhea. PMHx: HTN, CAD, CHF, Afib, COPD, ARLENE, Herniated discs L-spine, Bipolar/ Depression, Asthma, hx of splenic infarct/abscess (As per chart review) PSHx: Appendectomy (2008), Coronary stents x4 ([id number]) (As per chart review) FHx: Denies Medications: Diltiazem, ASA, digoxin, enalapril, HCTZ, Lasix, ventolin, singulair, Prozac, crestor, Xanax, spironolactone, amiodarone Allergies:Apixaban, clopidogrel, enoxaparin, Morphine Social history: Former smoker; states the last time he snorted cocaine was Present on Admission - Present on Admission Any Indicators Present on Admission: No Review of Systems - Constitutional Constitutional: absent: Chills, Fever - EENT Eyes: absent: Change in Vision Ears: absent: Decreased Hearing Nose/Mouth/Throat: absent: Nasal Congestion, Sore Throat - Cardiovascular Cardiovascular: Chest Pain, Dyspnea, Dyspnea on Exertion, Palpitations - Respiratory Respiratory: Dyspnea, Dyspnea on Exertion. absent: Cough - Gastrointestinal Gastrointestinal: absent: Nausea, Vomiting - Genitourinary Genitourinary: absent: Dysuria - Musculoskeletal Musculoskeletal: absent: Back Pain, Numbness, Tingling - Neurological Neurological: absent: Headaches, Tingling, Weakness - Psychiatric Psychiatric: absent: Anxiety, Depression - Endocrine Endocrine: absent: Fatigue, Palpitations Past Patient History - Infectious Disease Hx of Infectious Diseases: None - Tetanus Immunizations Tetanus Immunization: Up to Date - Past Medical History & Family History Past Medical History?: Yes - Past Social History Smoking Status: Former Smoker - CARDIAC Hx Cardiac Disorders: Yes Hx Atrial Fibrillation: Yes Hx Cardia Arrhythmia: Yes Hx Congestive Heart Failure: Yes Hx Hypercholesterolemia: Yes Hx Hypertension: Yes Hx Peripheral Edema: Yes - PULMONARY Hx Respiratory Disorders: Yes Hx Asthma: Yes Hx Chronic Obstructive Pulmonary Disease (COPD): Yes Hx Emphysema: No Hx Pneumonia: Yes Hx Sleep Apnea: Yes - NEUROLOGICAL Hx Neurological Disorder: No - HEENT Hx HEENT Problems: No - RENAL Hx Chronic Kidney Disease: No - ENDOCRINE/METABOLIC Hx Endocrine Disorders: No - HEMATOLOGICAL/ONCOLOGICAL Hx Blood Disorders: Yes Hx Blood Transfusions: Yes Other/Comment: MRSA Hx - INTEGUMENTARY Hx Dermatological Problems: Yes Hx Cellulitis: Yes - MUSCULOSKELETAL/RHEUMATOLOGICAL Hx Musculoskeletal Disorders: Yes Hx Arthritis: Yes Hx Falls: Yes - GASTROINTESTINAL Hx Gastrointestinal Disorders: Yes Other/Comment: Splenic Hematoma - GENITOURINARY/GYNECOLOGICAL Hx Genitourinary Disorders: No - PSYCHIATRIC Hx Psychophysiologic Disorder: Yes Hx Anxiety: Yes Hx Bipolar Disorder: Yes Hx Depression: Yes Hx Substance Use: Yes - SURGICAL HISTORY Hx Surgeries: Yes Hx Appendectomy: Yes (2008) Hx Coronary Stent: Yes (2008 - 2012 4 stents) - ANESTHESIA Hx Anesthesia: Yes Hx Anesthesia Reactions: No Hx Malignant Hyperthermia: No Meds Allergies/Adverse Reactions: Allergies Allergy/AdvReac Type Severity Reaction Status Date / Time apixaban [From Eliquis] Allergy RASH Verified 10/07/17 10:12 clopidogrel bisulfate Allergy RASH Verified 10/07/17 10:12 [From Plavix] enoxaparin sodium Allergy RASH Verified 10/07/17 10:12 [From Lovenox] morphine Allergy RASH Verified 10/07/17 10:12 Physical Exam - Constitutional Appears: Non-toxic, No Acute Distress Additional comments: Obese - Head Exam Head Exam: ATRAUMATIC, NORMOCEPHALIC - Eye Exam Eye Exam: EOMI, PERRL. absent: Scleral icterus - ENT Exam ENT Exam: Mucous Membranes Moist - Respiratory Exam Respiratory Exam: Clear to Auscultation Bilateral, NORMAL BREATHING PATTERN. absent: Rales, Rhonchi, Wheezes - Cardiovascular Exam Cardiovascular Exam: REGULAR RHYTHM, +S1, +S2 - GI/Abdominal Exam GI & Abdominal Exam: Normal Bowel Sounds, Soft - Extremities Exam Extremities exam: Positive for: normal inspection, pedal edema (mild, 1+ edema) . Negative for: tenderness - Back Exam Back exam: absent: CVA tenderness (L), CVA tenderness (R) - Neurological Exam Neurological exam: Alert, Oriented x3 - Psychiatric Exam Psychiatric exam: Anxious - Skin Skin Exam: Normal Color, Warm Results - Vital Signs Recent Vital Signs: Last Vital Signs Temp 98.4 F 10/07/17 17:12 Pulse 81 10/07/17 17:12 Resp 20 10/07/17 17:12 BP 161/96 H 10/07/17 17:12 Pulse Ox 98 10/07/17 17:12 - Labs Result Diagrams: 10/07/17 09:57 10/07/17 09:57 Labs: Laboratory Results - last 24 hr 10/07/17 10/07/17 09:57 09:57 WBC 10.1 RBC 5.66 Hgb 14.3 Hct 44.2 MCV 78.1 L MCH 25.2 L MCHC 32.3 L RDW 23.1 H Plt Count 200 MPV 8.8 Neut % (Auto) 75.5 H Lymph % (Auto) 12.4 L [place] % (Auto) 9.7 Eos % (Auto) 1.4 Baso % (Auto) 1.0 Neut # 7.6 H Lymph # 1.3 [place] # 1.0 H Eos # 0.1 Baso # 0.1 Sodium 135 Potassium 3.7 Chloride 97 L Carbon Dioxide 24 Anion Gap 18 BUN 18 Creatinine 0.7 L Est GFR ( Amer) > 60 Est GFR (Non-Af Amer) > 60 Random Glucose 173 H Calcium 9.3 Total Bilirubin 1.3 AST 31 ALT 33 Alkaline Phosphatase 63 CK-MB (Mass) 4.94 H Troponin I 0.2120 H* NT-Pro-B Natriuret Pep 68186 H Total Protein 9.0 H Albumin 4.1 Globulin 4.9 H Albumin/Globulin Ratio 0.8 L Assessment & Plan - Assessment and Plan (Free Text) Plan: Atrial fibrillation with RVR Admit to telemetry In rapid A fib with RVR in the ED Cardizem Drip Continue home medications: -Digoxin 0.125mg PO daily -Coreg 12.5mg PO BID (HELD until results of UDS, pt with cocaine history) - ASA 325mg Continue to monitor with telemetry CHADS score of 2 points (Positives: CHF, HTN) No anticoagulation per Dr. Ocampo due to risk of splenic infarct converting to hemorrhagic. Chest Pain - R/O ACS Troponin elevated on admission, 0.2 - f/u JOSE/EKG EKG: no acute St/T wave changes Systolic CHF exacerbation BNP 11,500 (previous admission 8500 CXR (10/07/17): Residual/recurrent CHF. No pleural effusion. Pattern improved vs 09/06/17. ECHO (02/2017): LV systolic function severely reduced. LV mildly dilated. Severe global hypokinesis of LV. Negative for endocarditis. HOLD BB due until UDS clean Lasix 40mg IV BID Continue home medications: Enalapril 10mg PO Daily Aldactone 25mg PO daily Fluid restriction Daily weights, I/Os Hypertension Elevated but down-trending Lasix 40mg IV BID Continue home medications: Enalapril 10mg PO daily Aldactone 25mg PO daily Monitor History of coronary artery disease Continue home medications: Aspirin 325mg PO daily Crestor 5mg PO HS History of COPD Continue home medications: Ventolin 2 puff IH BID Singulair 10 mg PO HS Anxiety and depression Prozac 20mg po daily Ativan 1mg TID Chronic Back Pain secondary to Lumbar Spine DJD Continue home meds: Percocet 2 tabs PO q6h prn Gabapentin 300 mg PO QAM, 600mg QPM Added Benadryl PO Q6 prn to be given with the percocet if needed Hx Cocaine use f/u Urine drug screen Counseled on cessation of illicit substances Tobacco abuse Nicotine patch TD daily Counseled on tobacco use cessation Prophylactic measure VTE ppx contraindicated due to risk of splenic infarct converting to hemorrhagic SCDs contraindicated due to b/l LE edema Protonix 40mg PO daily Heart healthy diet Miles Rodriguez PGY-[address] Ocampo
[2017-10-07] MEDS: Oxycodone/Acetaminophen 5/325 mg Tab PO PRN (22:03)
[2017-10-08] MEDS: Oxycodone/Acetaminophen 5/325 mg Tab PO PRN ×3 (04:41→17:06)
--- NOTE | 2017-10-08 07:00 | CP.PCM.PN ---
<Ezekiel Rasmussen - Last Filed: 10/08/17 17:06> Subjective - Date & Time of Evaluation Date of Evaluation: 10/08/17 Time of Evaluation: 06:56 - Subjective Subjective: PGY1 Note for Dr. Ocampo HPI: Patient seen and examined at bedside. Does not want to have his sugar checked. Wants a regular diet. Not happy with the way his gabapentin is being timed. Sitting up in chair. States it is the only way he can sleep Objective - Vital Signs/Intake and Output Vital Signs (last 24 hours): Temp Pulse Resp BP Pulse Ox 97.5 F L 86 20 163/91 H 97 10/07/17 23:15 10/07/17 23:15 10/07/17 23:15 10/07/17 23:15 10/07/17 23:15 - Medications Medications: Current Medications Albuterol (Ventolin Hfa 90 Mcg/Actuation (8 G)) 2 puff IH RBID JEIMY Aspirin (Ecotrin) 325 mg PO DAILY [facility] Carvedilol (Coreg) 12.5 mg PO BID J[facility] Digoxin (Lanoxin) 0.125 mg PO DAILY@1800 [facility] Diphenhydramine HCl (Benadryl) 50 mg PO Q6 PRN PRN Reason: Itching / Pruritus Last Admin: 10/08/17 04:41 Dose: 50 mg Enalapril Maleate (Vasotec) 10 mg PO DAILY [facility] Fluoxetine HCl (Prozac) 20 mg PO DAILY [facility] Furosemide (Lasix) 40 mg IVP BID JEIM[facility] Gabapentin (Neurontin) 300 mg PO QAM [facility] Gabapentin (Neurontin) 600 mg PO QPM [facility] Home Med (Budesonide/Formoterol Fumarate [Symbicort 160-4.5 Mcg Inhaler]) 1 aer IH BID JEIM[facility] Diltiazem HCl 125 mg/ Dextrose 125 mls @ 5 mls/hr IV .Q24H JEIM[facility] PRN Reason: 5 MG/HR Last Admin: 10/07/17 10:27 Dose: 5 mls/hr Lorazepam (Ativan) 1 mg PO TID [facility] Montelukast Sodium (Singulair) 10 mg PO HS JEIM[facility] Last Admin: 10/07/17 21:56 Dose: 10 mg Nicotine (Nicoderm Cq) 1 patch TD DAILY [facility] Oxycodone/Acetaminophen (Percocet 5/325 Mg Tab) 2 tab PO Q6H PRN PRN Reason: Pain, moderate (4-7) Stop: 10/10/17 20:34 Last Admin: 10/08/17 04:41 Dose: 2 tab Pantoprazole Sodium (Protonix Ec Tab) 40 mg PO DAILY [facility] Rosuvastatin Calcium (Crestor) 5 mg PO HS [facility]IM[facility] Last Admin: 10/07/17 21:56 Dose: 5 mg Spironolactone (Aldactone) 25 mg PO DAILY JEIM[facility] - Labs Labs: 10/07/17 09:57 10/07/17 09:57 - Constitutional Appears: Well, Non-toxic, No Acute Distress - Head Exam Head Exam: ATRAUMATIC, NORMAL INSPECTION, NORMOCEPHALIC - Eye Exam Eye Exam: EOMI Pupil Exam: NORMAL ACCOMODATION - ENT Exam ENT Exam: Mucous Membranes Moist - Respiratory Exam Respiratory Exam: Clear to Ausculation Bilateral, NORMAL BREATHING PATTERN - Cardiovascular Exam Cardiovascular Exam: Irregular Rhythm - GI/Abdominal Exam GI & Abdominal Exam: Soft, Normal Bowel Sounds. absent: Distended, Tenderness - Extremities Exam Extremities Exam: absent: Joint Swelling, Tenderness - Back Exam Back Exam: absent: CVA tenderness (L), CVA tenderness (R) - Neurological Exam Neurological Exam: Alert, Awake, Oriented x3 - Psychiatric Exam Psychiatric exam: Normal Affect, Normal Mood - Skin Skin Exam: Dry, Intact, Normal Color, Warm Assessment and Plan - Assessment and Plan (Free Text) Assessment: Atrial fibrillation with RVR Admit to telemetry In rapid A fib with RVR in the ED Cardizem Continue home medications: * Digoxin 0.125mg PO daily * Coreg 12.5mg PO BID (HELD until results of UDS, pt with cocaine history) * ASA 325mg CHADS score of 2 points (Positives: CHF, HTN) No anticoagulation per Dr. Ocampo due to risk of splenic infarct converting to hemorrhagic. Chest Pain - R/O ACS JOSE - 0.2 - 0.1 EKG: no acute St/T wave changes Systolic CHF exacerbation BNP 11,500 (previous admission 8500 CXR (10/07/17): Residual/recurrent CHF. No pleural effusion. Pattern improved vs 09/06/17. ECHO (02/2017): LV systolic function severely reduced. LV mildly dilated. Severe global hypokinesis of LV. Negative for endocarditis. HOLD BB due until UDS clean Lasix 40mg IV BID Continue home medications: * Enalapril 10mg PO Daily * Aldactone 25mg PO daily Fluid restriction Daily weights, I/Os Hypertension Elevated but down-trending Lasix 40mg IV BID Continue home medications: * Enalapril 10mg PO daily * Aldactone 25mg PO daily Monitor History of coronary artery disease Continue home medications: * Aspirin 325mg PO daily * Crestor 5mg PO HS History of COPD Continue home medications: * Ventolin 2 puff IH BID * Singulair 10 mg PO HS Anxiety and depression Prozac 20mg po daily Ativan 1mg TID Chronic Back Pain secondary to Lumbar Spine DJD Continue home meds: * Percocet 2 tabs PO q6h prn * Gabapentin 300 mg PO QAM, 600mg QPM Added Benadryl PO Q6 prn to be given with the percocet if needed Hx Cocaine use Urine drug screen + Cocaine Metabolites -No BB Counseled on cessation of illicit substances Tobacco abuse Nicotine patch TD daily Counseled on tobacco use cessation Prophylactic measure VTE ppx contraindicated due to risk of splenic infarct converting to hemorrhagic SCDs contraindicated due to b/l LE edema Protonix 40mg PO daily Regular diet <Roque Ocampo Jr. - Last Filed: 10/10/17 14:22> Objective - Vital Signs/Intake and Output Vital Signs (last 24 hours): Temp Pulse Resp BP Pulse Ox 97.9 F 90 20 130/87 99 10/10/17 08:17 10/10/17 09:14 10/10/17 08:17 10/10/17 09:16 10/09/17 23:10 Intake and Output: 10/10/17 10/10/17 06:59 18:59 Intake Total 480 Balance 480 - Medications Medications: Current Medications Albuterol (Ventolin Hfa 90 Mcg/Actuation (8 G)) 2 puff IH RBID [facility] Last Admin: 10/10/17 07:50 Dose: Not Given Aspirin (Ecotrin) 325 mg PO DAILY [facility] Last Admin: 10/10/17 09:15 Dose: 325 mg Benzocaine/Menthol (Cepacol Sore Throat) 1 carla MT Q6H PRN PRN Reason: Sore Throat Last Admin: 10/09/17 01:33 Dose: 1 carla Carvedilol (Coreg) 12.5 mg PO BID [facility] Digoxin (Lanoxin) 0.125 mg PO DAILY@1800 [facility] Last Admin: 10/09/17 18:35 Dose: 0.125 mg Diltiazem HCl (Cardizem) 120 mg PO TID [facility] Last Admin: 10/10/17 13:28 Dose: 120 mg Diphenhydramine HCl (Benadryl) 50 mg PO Q6 PRN PRN Reason: Itching / Pruritus Last Admin: 10/10/17 10:25 Dose: 50 mg Enalapril Maleate (Vasotec) 10 mg PO DAILY [facility] Last Admin: 10/10/17 09:16 Dose: 10 mg Fluoxetine HCl (Prozac) 20 mg PO DAILY [facility] Last Admin: 10/10/17 09:15 Dose: 20 mg Furosemide (Lasix) 40 mg IVP BID [facility] Last Admin: 10/10/17 09:16 Dose: 40 mg Gabapentin (Neurontin) 300 mg PO QAM [facility] Last Admin: 10/10/17 09:15 Dose: 300 mg Gabapentin (Neurontin) 600 mg PO QPM [facility] Last Admin: 10/09/17 18:35 Dose: 600 mg Hydromorphone HCl (Dilaudid) 1 mg IVP Q6 PRN PRN Reason: Pain, severe (8-10) Last Admin: 10/10/17 08:43 Dose: 1 mg Lorazepam (Ativan) 2 mg PO Q4 PRN PRN Reason: Agitation Last Admin: 10/10/17 13:30 Dose: 2 mg Montelukast Sodium (Singulair) 10 mg PO HS [facility] Last Admin: 10/09/17 22:22 Dose: 10 mg Nicotine (Nicoderm Cq) 1 patch TD DAILY [facility] Last Admin: 10/10/17 09:18 Dose: 1 patch Ondansetron HCl (Zofran Inj) 4 mg IVP Q6 PRN PRN Reason: Nausea/Vomiting Last Admin: 10/09/17 23:02 Dose: 4 mg Oxycodone/Acetaminophen (Percocet 5/325 Mg Tab) 2 tab PO Q6H PRN PRN Reason: Pain, moderate (4-7) Stop: 10/10/17 20:34 Last Admin: 10/10/17 10:23 Dose: 2 tab Pantoprazole Sodium (Protonix Ec Tab) 40 mg PO DAILY [facility] Last Admin: 10/10/17 09:16 Dose: 40 mg Potassium Chloride (K-Dur 20 Meq Er Tab) 40 meq PO DAILY [facility] Last Admin: 10/10/17 09:15 Dose: 40 meq Rosuvastatin Calcium (Crestor) 5 mg PO HS [facility] Last Admin: 10/09/17 22:22 Dose: 5 mg Spironolactone (Aldactone) 25 mg PO DAILY [facility] Last Admin: 10/10/17 09:15 Dose: 25 mg - Labs Labs: 10/10/17 08:36 10/10/17 08:36 Attending/Attestation - Attestation I have personally seen and examined this patient.: Yes I have fully participated in the care of the patient.: Yes I have reviewed all pertinent clinical information, including history, physical exam and plan: Yes Notes (Text): 10/10/17 14:22 Agree with resident note plan of care
[2017-10-08 07:07] LABS: BASO # 0.1 K/uL (0.0-0.2); BASO % 1.1 % (0.0-2.0); EOS # 0.4 K/uL (0.0-0.7); EOS % 4.5 % (0.0-4.0); LYMPH # 1.8 K/uL (1.0-4.3); LYMPH % 18.6 % (20.0-40.0); MEAN CELL VOLUME 79.6 fL (80.0-94.0); MEAN CORPUSCULAR HEMOGLOBIN 25.6 pg (27.0-31.0); MEAN CORPUSCULAR HGB CONC 32.1 g/dL (33.0-37.0); MEAN PLATELET VOLUME 8.8 fL (7.2-11.7); MONO # 1.1 K/uL (0.0-0.8); MONO % 11.8 % (0.0-10.0); NRBC % 0.1 % (0.0-2.0); RED CELL DISTRIBUTION WIDTH 22.7 % (11.5-14.5); WHITE BLOOD COUNT 9.6 K/uL (4.8-10.8)
[2017-10-08 07:48] LABS: CHLORIDE 93 mmol/L (98-107)
[2017-10-08 07:49] LABS: POTASSIUM 3.3 mmol/L (3.6-5.2); SODIUM 133 mmol/L (132-148)
[2017-10-08 07:50] LABS: CHOLESTEROL 115 mg/dL (0-199)
[2017-10-08 07:51] LABS: ALKALINE PHOSPHATASE 91 U/L (38-126); ALT/SGPT 27 U/L (21-72); AST/SGOT 34 U/L (17-59); BILIRUBIN,TOTAL 1.1 mg/dL (0.2-1.3); BLOOD UREA NITROGEN 24 mg/dL (9-20); CARBON DIOXIDE 30 mmol/L (22-30); GFR AFRICAN-AMERICAN > 60; GLUCOSE,RANDOM 81 mg/dL (75-110); PHOSPHOROUS 4.4 mg/dL (2.5-4.5); TOTAL PROTEIN 7.9 g/dL (6.3-8.3)
[2017-10-08 07:52] LABS: CALCIUM 8.7 mg/dl (8.6-10.4); MAGNESIUM 1.7 mg/dL (1.6-2.3)
[2017-10-08 08:07] LABS: THYROID STIMULATING HORMONE 3.77 mIU/L (0.46-4.68)
[2017-10-08] MEDS: Aspirin 325 mg EC Tablets PO SCH (09:17)
[2017-10-08] MEDS: Pantoprazole 40 mg EC Tab PO SCH (09:19)
[2017-10-08] MEDS ORDERED: Home Med 1 UNIT (Budesonide/Formoterol Fumarate [Symbicort 160-4.5 Mcg Inhaler] 1 AER) IH SCH (10:00)
[2017-10-08] MEDS: Potassium Chloride 20 mEq ER Tab PO SCH (12:25)
[2017-10-08] MEDS: Albuterol HFA 90 mcg/actuation (8 g) IH SCH ×2 (15:27→21:22)
[2017-10-08] MEDS: Digoxin 125 mcg (0.125 mg) Tab PO SCH (17:06)
[2017-10-09] MEDS ORDERED: Benzocaine/Menthol (Cepacol) Lozenge MT PRN (00:43)
[2017-10-09] MEDS: Oxycodone/Acetaminophen 5/325 mg Tab PO PRN ×4 (01:33→20:01)
[2017-10-09 08:28] LABS: BASO # 0.1 K/uL (0.0-0.2); BASO % 0.8 % (0.0-2.0); EOS # 0.4 K/uL (0.0-0.7); HEMATOCRIT 43.5 % (35.0-51.0); LYMPH # 1.3 K/uL (1.0-4.3); LYMPH % 10.7 % (20.0-40.0); MEAN CELL VOLUME 79.7 fL (80.0-94.0); MEAN CORPUSCULAR HEMOGLOBIN 25.5 pg (27.0-31.0); MEAN CORPUSCULAR HGB CONC 31.9 g/dL (33.0-37.0); MEAN PLATELET VOLUME 8.7 fL (7.2-11.7); MONO # 1.2 K/uL (0.0-0.8); MONO % 10.1 % (0.0-10.0); RED CELL DISTRIBUTION WIDTH 22.6 % (11.5-14.5); WHITE BLOOD COUNT 12.1 K/uL (4.8-10.8)
[2017-10-09 08:50] LABS: CHLORIDE 93 mmol/L (98-107); POTASSIUM 4.4 mmol/L (3.6-5.2); SODIUM 131 mmol/L (132-148)
[2017-10-09 08:52] LABS: GFR AFRICAN-AMERICAN > 60
[2017-10-09 08:53] LABS: ALKALINE PHOSPHATASE 80 U/L (38-126); ALT/SGPT 36 U/L (21-72); AST/SGOT 33 U/L (17-59); BILIRUBIN,TOTAL 0.9 mg/dL (0.2-1.3); BLOOD UREA NITROGEN 24 mg/dL (9-20); CARBON DIOXIDE 25 mmol/L (22-30); GLUCOSE,RANDOM 126 mg/dL (75-110); PHOSPHOROUS 4.1 mg/dL (2.5-4.5); TOTAL PROTEIN 7.9 g/dL (6.3-8.3)
[2017-10-09 08:54] LABS: CALCIUM 8.7 mg/dl (8.6-10.4); MAGNESIUM 1.7 mg/dL (1.6-2.3)
[2017-10-09] MEDS: Pantoprazole 40 mg EC Tab PO SCH (11:00)
[2017-10-09] MEDS: Potassium Chloride 20 mEq ER Tab PO SCH (11:00)
[2017-10-09] MEDS: Aspirin 325 mg EC Tablets PO SCH (11:00)
--- NOTE | 2017-10-09 17:38 | CP.PCM.PN ---
<Ezekiel Rasmussen - Last Filed: 10/09/17 17:35> Subjective - Date & Time of Evaluation Date of Evaluation: 10/09/17 Time of Evaluation: 17:35 - Subjective Subjective: PGY1 Note for Dr. Ocampo HPI: Patient seen and examined at bedside. Complaining of Nausea, back pain, pain with urination, diaphoresis. Denies chest pain or SOB. No other complaints at this time. Objective - Vital Signs/Intake and Output Vital Signs (last 24 hours): Temp Pulse Resp BP Pulse Ox 98.2 F 75 20 124/84 97 10/09/17 15:00 10/09/17 16:00 10/09/17 15:00 10/09/17 15:00 10/09/17 15:00 Intake and Output: 10/09/17 10/09/17 06:59 18:59 Output Total 500 Balance -500 - Medications Medications: Current Medications Albuterol (Ventolin Hfa 90 Mcg/Actuation (8 G)) 2 puff IH RBID [facility] Last Admin: 10/08/17 21:22 Dose: Not Given Aspirin (Ecotrin) 325 mg PO DAILY [facility] Last Admin: 10/09/17 11:00 Dose: 325 mg Benzocaine/Menthol (Cepacol Sore Throat) 1 carla MT Q6H PRN PRN Reason: Sore Throat Last Admin: 10/09/17 01:33 Dose: 1 carla Carvedilol (Coreg) 12.5 mg PO BID [facility] Digoxin (Lanoxin) 0.125 mg PO DAILY@1800 [facility] Last Admin: 10/08/17 17:06 Dose: 0.125 mg Diphenhydramine HCl (Benadryl) 50 mg PO Q6 PRN PRN Reason: Itching / Pruritus Last Admin: 10/09/17 13:47 Dose: 50 mg Enalapril Maleate (Vasotec) 10 mg PO DAILY [facility] Last Admin: 10/09/17 11:00 Dose: 10 mg Fluoxetine HCl (Prozac) 20 mg PO DAILY [facility] Last Admin: 10/09/17 11:00 Dose: 20 mg Furosemide (Lasix) 40 mg IVP BID [facility] Last Admin: 10/09/17 11:00 Dose: 40 mg Gabapentin (Neurontin) 300 mg PO QAM [facility] Last Admin: 10/09/17 10:59 Dose: 300 mg Gabapentin (Neurontin) 600 mg PO QPM [facility] Last Admin: 10/08/17 17:05 Dose: 600 mg Diltiazem HCl 125 mg/ Dextrose 125 mls @ 10 mls/hr IV .[id number] JEIMY; 10 MG/HR PRN Reason: Protocol Last Admin: 10/09/17 13:45 Dose: 10 mls/hr Lorazepam (Ativan) 2 mg PO Q4 PRN PRN Reason: Agitation Last Admin: 10/09/17 11:14 Dose: 2 mg Montelukast Sodium (Singulair) 10 mg PO HS [facility] Last Admin: 10/08/17 22:16 Dose: 10 mg Nicotine (Nicoderm Cq) 1 patch TD DAILY [facility] Last Admin: 10/09/17 11:00 Dose: 1 patch Ondansetron HCl (Zofran Inj) 4 mg IVP Q6 PRN PRN Reason: Nausea/Vomiting Last Admin: 10/09/17 16:35 Dose: 4 mg Oxycodone/Acetaminophen (Percocet 5/325 Mg Tab) 2 tab PO Q6H PRN PRN Reason: Pain, moderate (4-7) Stop: 10/10/17 20:34 Last Admin: 10/09/17 13:47 Dose: 2 tab Pantoprazole Sodium (Protonix Ec Tab) 40 mg PO DAILY [facility] Last Admin: 10/09/17 11:00 Dose: 40 mg Potassium Chloride (K-Dur 20 Meq Er Tab) 40 meq PO DAILY [facility] Last Admin: 10/09/17 11:00 Dose: 40 meq Rosuvastatin Calcium (Crestor) 5 mg PO [facility] Last Admin: 10/08/17 22:16 Dose: 5 mg Spironolactone (Aldactone) 25 mg PO DAILY [facility] Last Admin: 10/09/17 11:00 Dose: 25 mg - Labs Labs: 10/09/17 08:15 10/09/17 08:15 - Constitutional Appears: Well, Non-toxic - Head Exam Head Exam: ATRAUMATIC, NORMAL INSPECTION, NORMOCEPHALIC - Eye Exam Eye Exam: EOMI - ENT Exam ENT Exam: Mucous Membranes Moist - Neck Exam Neck Exam: Normal Inspection - Respiratory Exam Respiratory Exam: Clear to Ausculation Bilateral, NORMAL BREATHING PATTERN - Cardiovascular Exam Cardiovascular Exam: Irregular Rhythm. absent: Bradycardia, Tachycardia - GI/Abdominal Exam GI & Abdominal Exam: Soft, Tenderness (mild tenderness to deep palpation), Normal Bowel Sounds. absent: Distended - Back Exam Back Exam: absent: CVA tenderness (L), CVA tenderness (R) - Neurological Exam Neurological Exam: Alert, Awake, Oriented x3 - Psychiatric Exam Psychiatric exam: Normal Affect, Normal Mood - Skin Skin Exam: Dry, Intact, Normal Color, Warm Assessment and Plan - Assessment and Plan (Free Text) Assessment: Atrial fibrillation with RVR Admit to telemetry In rapid A fib with RVR in the ED Casey huston @ 10 Continue home medications: * Digoxin 0.125mg PO daily * Coreg 12.5mg PO BID (HELD until results of UDS, pt with cocaine history) * ASA 325mg CHADS score of 2 points (Positives: CHF, HTN) No anticoagulation per Dr. Ocampo due to risk of splenic infarct converting to hemorrhagic. Chest Pain - R/O ACS JOSE - 0.2 - 0.1 EKG: no acute St/T wave changes Systolic CHF exacerbation BNP 11,500 (previous admission 8500 CXR (10/07/17): Residual/recurrent CHF. No pleural effusion. Pattern improved vs 09/06/17. ECHO (02/2017): LV systolic function severely reduced. LV mildly dilated. Severe global hypokinesis of LV. Negative for endocarditis. HOLD BB due until UDS clean Lasix 40mg IV BID Continue home medications: * Enalapril 10mg PO Daily * Aldactone 25mg PO daily Fluid restriction Daily weights, I/Os Hypertension Elevated but down-trending Lasix 40mg IV BID Continue home medications: * Enalapril 10mg PO daily * Aldactone 25mg PO daily Monitor History of coronary artery disease Continue home medications: * Aspirin 325mg PO daily * Crestor 5mg PO HS History of COPD Continue home medications: * Ventolin 2 puff IH BID * Singulair 10 mg PO HS Anxiety and depression Prozac 20mg po daily Ativan 1mg TID Chronic Back Pain secondary to Lumbar Spine DJD Continue home meds: * Percocet 2 tabs PO q6h prn * Gabapentin 300 mg PO QAM, 600mg QPM Added Benadryl PO Q6 prn to be given with the percocet if needed Hx Cocaine use Urine drug screen + Cocaine Metabolites -No BB Counseled on cessation of illicit substances Tobacco abuse Nicotine patch TD daily Counseled on tobacco use cessation Prophylactic measure VTE ppx contraindicated due to risk of splenic infarct converting to hemorrhagic SCDs contraindicated due to b/l LE edema Protonix 40mg PO daily Regular diet <Roque Ocampo Jr. - Last Filed: 10/10/17 14:23> Objective - Vital Signs/Intake and Output Vital Signs (last 24 hours): Temp Pulse Resp BP Pulse Ox 97.9 F 90 20 130/87 99 10/10/17 08:17 10/10/17 09:14 10/10/17 08:17 10/10/17 09:16 10/09/17 23:10 Intake and Output: 10/10/17 10/10/17 06:59 18:59 Intake Total 480 Balance 480 - Medications Medications: Current Medications Albuterol (Ventolin Hfa 90 Mcg/Actuation (8 G)) 2 puff IH RBID [facility] Last Admin: 10/10/17 07:50 Dose: Not Given Aspirin (Ecotrin) 325 mg PO DAILY [facility] Last Admin: 10/10/17 09:15 Dose: 325 mg Benzocaine/Menthol (Cepacol Sore Throat) 1 carla MT Q6H PRN PRN Reason: Sore Throat Last Admin: 10/09/17 01:33 Dose: 1 carla Carvedilol (Coreg) 12.5 mg PO BID [facility] Digoxin (Lanoxin) 0.125 mg PO DAILY@1800 [facility] Last Admin: 10/09/17 18:35 Dose: 0.125 mg Diltiazem HCl (Cardizem) 120 mg PO TID [facility] Last Admin: 10/10/17 13:28 Dose: 120 mg Diphenhydramine HCl (Benadryl) 50 mg PO Q6 PRN PRN Reason: Itching / Pruritus Last Admin: 10/10/17 10:25 Dose: 50 mg Enalapril Maleate (Vasotec) 10 mg PO DAILY [facility] Last Admin: 10/10/17 09:16 Dose: 10 mg Fluoxetine HCl (Prozac) 20 mg PO DAILY [facility] Last Admin: 10/10/17 09:15 Dose: 20 mg Furosemide (Lasix) 40 mg IVP BID [facility] Last Admin: 10/10/17 09:16 Dose: 40 mg Gabapentin (Neurontin) 300 mg PO QAM [facility] Last Admin: 10/10/17 09:15 Dose: 300 mg Gabapentin (Neurontin) 600 mg PO QPM [facility] Last Admin: 10/09/17 18:35 Dose: 600 mg Hydromorphone HCl (Dilaudid) 1 mg IVP Q6 PRN PRN Reason: Pain, severe (8-10) Last Admin: 10/10/17 08:43 Dose: 1 mg Lorazepam (Ativan) 2 mg PO Q4 PRN PRN Reason: Agitation Last Admin: 10/10/17 13:30 Dose: 2 mg Montelukast Sodium (Singulair) 10 mg PO HS [facility] Last Admin: 10/09/17 22:22 Dose: 10 mg Nicotine (Nicoderm Cq) 1 patch TD DAILY [facility] Last Admin: 10/10/17 09:18 Dose: 1 patch Ondansetron HCl (Zofran Inj) 4 mg IVP Q6 PRN PRN Reason: Nausea/Vomiting Last Admin: 10/09/17 23:02 Dose: 4 mg Oxycodone/Acetaminophen (Percocet 5/325 Mg Tab) 2 tab PO Q6H PRN PRN Reason: Pain, moderate (4-7) Stop: 10/10/17 20:34 Last Admin: 10/10/17 10:23 Dose: 2 tab Pantoprazole Sodium (Protonix Ec Tab) 40 mg PO DAILY [facility] Last Admin: 10/10/17 09:16 Dose: 40 mg Potassium Chloride (K-Dur 20 Meq Er Tab) 40 meq PO DAILY [facility] Last Admin: 10/10/17 09:15 Dose: 40 meq Rosuvastatin Calcium (Crestor) 5 mg PO HS [facility] Last Admin: 10/09/17 22:22 Dose: 5 mg Spironolactone (Aldactone) 25 mg PO DAILY [facility] Last Admin: 10/10/17 09:15 Dose: 25 mg - Labs Labs: 10/10/17 08:36 10/10/17 08:36 Attending/Attestation - Attestation I have personally seen and examined this patient.: Yes I have fully participated in the care of the patient.: Yes I have reviewed all pertinent clinical information, including history, physical exam and plan: Yes Notes (Text): 10/10/17 14:23 Agree with resident note and plan of care
[2017-10-09] MEDS: Digoxin 125 mcg (0.125 mg) Tab PO SCH (18:35)
--- NOTE | 2017-10-09 18:43 | CT ---
PROCEDURE: CT Chest, Abdomen and Pelvis without intravenous contrast HISTORY: Belly pain COMPARISON: Comparison is made to the previous CT of the abdomen dated 08/03/2017 CT of the chest abdomen and pelvis dated 05/04/2017 TECHNIQUE: Axial and reformatted coronal and sagittal CT images of the chest abdomen and pelvis were obtained without IV or oral contrast administration. Radiation dose: Total exam DLP = 3176.3 mGy-cm. This CT exam was performed using one or more of the following dose reduction techniques: Automated exposure control, adjustment of the mA and/or kV according to patient size, and/or use of iterative reconstruction technique. FINDINGS: CT CHEST WITHOUT CONTRAST: LUNGS: No evidence of pneumonia or mass lesion in the lungs. Linear opacity again seen along the left fissure. MEDIASTINUM: Unremarkable. Normal caliber aorta and pulmonary arterial trunk. [id number] cardiomegaly is noted. . LYMPH NODES: Again seen is mildly enlarged lymph nodes in the mediastinum. PLEURA: Unremarkable. No pneumothorax. No pleural fluid. BONES: Unremarkable. OTHER FINDINGS: None. CT ABDOMEN AND PELVIS: LIVER: Heterogeneous mildly enlarged liver is noted. The assessment for liver lesion is limited without IV contrast administration. GALLBLADDER AND BILE DUCTS: Unremarkable. PANCREAS: Unremarkable. No gross lesion or ductal dilatation. SPLEEN: Unremarkable. ADRENALS: Unremarkable. No mass. KIDNEYS AND URETERS: Unremarkable. No hydronephrosis. No solid mass. VASCULATURE: Unremarkable. No aortic aneurysm. BOWEL: Colonic diverticulosis without evidence of diverticulitis. No evidence of bowel obstruction. APPENDIX: There is no evidence of appendicitis. PERITONEUM: Unremarkable. No free fluid. No free air. LYMPH NODES: Prominent mesenteric lymph nodes are again seen. BLADDER: Diffuse urinary bladder wall thickening is noted. REPRODUCTIVE: Unremarkable. BONES: No acute fracture. OTHER FINDINGS: None. IMPRESSION: Limited assessment without IV or oral contrast administration. No evidence of acute pathology in the chest abdomen and pelvis. No evidence of significant interval change compared to the previous exams.
[2017-10-09] MEDS: Albuterol HFA 90 mcg/actuation (8 g) IH SCH (20:20)
--- NOTE | 2017-10-10 00:51 | CP.PCM.PN ---
Subjective - Date & Time of Evaluation Date of Evaluation: 10/10/17 Time of Evaluation: 00:48 - Subjective Subjective: A code star was called at 12:42AM today for this patient. The patient was walking in the hallway standing at the counter about to sign out AMA. As the nurse was getting the AMA form, the patient stated he "lost air" and took a knee to the ground. He did not fall. The patient did not hit his head. He did not bruise any part of his body. Upon inspection the patient was alert, oriented , conversation as his baseline, and denied a headache or pain. His only complaint was "my spleen hurts". His vitals were checked which were stable. Per nurse, he is refusing telemetry monitoring. A head CT is not warranted. Objective - Vital Signs/Intake and Output Vital Signs (last 24 hours): Temp Pulse Resp BP Pulse Ox 98.4 F 72 20 113/83 99 10/09/17 23:10 10/09/17 23:10 10/09/17 23:10 10/09/17 23:10 10/09/17 23:10 Intake and Output: 10/09/17 10/10/17 18:59 06:59 Intake Total 480 Balance 480 - Medications Medications: Current Medications Albuterol (Ventolin Hfa 90 Mcg/Actuation (8 G)) 2 puff IH RBID [facility] Last Admin: 10/09/17 20:20 Dose: Not Given Aspirin (Ecotrin) 325 mg PO DAILY [facility] Last Admin: 10/09/17 11:00 Dose: 325 mg Benzocaine/Menthol (Cepacol Sore Throat) 1 carla MT Q6H PRN PRN Reason: Sore Throat Last Admin: 10/09/17 01:33 Dose: 1 carla Carvedilol (Coreg) 12.5 mg PO BID [facility] Digoxin (Lanoxin) 0.125 mg PO DAILY@1800 [facility] Last Admin: 10/09/17 18:35 Dose: 0.125 mg Diphenhydramine HCl (Benadryl) 50 mg PO Q6 PRN PRN Reason: Itching / Pruritus Last Admin: 10/09/17 20:01 Dose: 50 mg Enalapril Maleate (Vasotec) 10 mg PO DAILY [facility] Last Admin: 10/09/17 11:00 Dose: 10 mg Fluoxetine HCl (Prozac) 20 mg PO DAILY [facility] Last Admin: 10/09/17 11:00 Dose: 20 mg Furosemide (Lasix) 40 mg IVP BID [facility] Last Admin: 10/09/17 18:30 Dose: Not Given Gabapentin (Neurontin) 300 mg PO QAM [facility] Last Admin: 10/09/17 10:59 Dose: 300 mg Gabapentin (Neurontin) 600 mg PO QPM [facility] Last Admin: 10/09/17 18:35 Dose: 600 mg Diltiazem HCl 125 mg/ Dextrose 125 mls @ 10 mls/hr IV .[id number] JEIMY; 10 MG/HR PRN Reason: Protocol Last Admin: 10/09/17 23:03 Dose: Not Given Lorazepam (Ativan) 2 mg PO Q4 PRN PRN Reason: Agitation Last Admin: 10/09/17 20:05 Dose: 2 mg Montelukast Sodium (Singulair) 10 mg PO HS [facility] Last Admin: 10/09/17 22:22 Dose: 10 mg Nicotine (Nicoderm Cq) 1 patch TD DAILY [facility] Last Admin: 10/09/17 11:00 Dose: 1 patch Ondansetron HCl (Zofran Inj) 4 mg IVP Q6 PRN PRN Reason: Nausea/Vomiting Last Admin: 10/09/17 23:02 Dose: 4 mg Oxycodone/Acetaminophen (Percocet 5/325 Mg Tab) 2 tab PO Q6H PRN PRN Reason: Pain, moderate (4-7) Stop: 10/10/17 20:34 Last Admin: 10/09/17 20:01 Dose: 2 tab Pantoprazole Sodium (Protonix Ec Tab) 40 mg PO DAILY [facility] Last Admin: 10/09/17 11:00 Dose: 40 mg Potassium Chloride (K-Dur 20 Meq Er Tab) 40 meq PO DAILY [facility] Last Admin: 10/09/17 11:00 Dose: 40 meq Rosuvastatin Calcium (Crestor) 5 mg PO HS [facility] Last Admin: 10/09/17 22:22 Dose: 5 mg Spironolactone (Aldactone) 25 mg PO DAILY [facility] Last Admin: 10/09/17 11:00 Dose: 25 mg - Labs Labs: 10/09/17 08:15 10/09/17 08:15
[2017-10-10] MEDS ORDERED: HYDROmorphone 1 mg/ml ISec IVP STA (00:54)
--- NOTE | 2017-10-10 00:55 | CP.PCM.PN ---
<Joseph Aguayo - Last Filed: 10/10/17 00:52> Subjective - Date & Time of Evaluation Date of Evaluation: 10/10/17 Time of Evaluation: 00:52 - Subjective Subjective: PGY1 Note for Dr. Ocampo HPI: Patient seen and examined at bedside. Complaining of Nausea, back pain, pain with urination, diaphoresis. He complained of new-onset right upper quadrant pain, stating "my speen is hurting again". Denies chest pain or SOB. No other complaints at this time. Objective - Vital Signs/Intake and Output Vital Signs (last 24 hours): Temp Pulse Resp BP Pulse Ox 98.4 F 72 20 113/83 99 10/09/17 23:10 10/09/17 23:10 10/09/17 23:10 10/09/17 23:10 10/09/17 23:10 Intake and Output: 10/09/17 10/10/17 18:59 06:59 Intake Total 480 Balance 480 - Medications Medications: Current Medications Albuterol (Ventolin Hfa 90 Mcg/Actuation (8 G)) 2 puff IH RBID [facility] Last Admin: 10/09/17 20:20 Dose: Not Given Aspirin (Ecotrin) 325 mg PO DAILY [facility] Last Admin: 10/09/17 11:00 Dose: 325 mg Benzocaine/Menthol (Cepacol Sore Throat) 1 carla MT Q6H PRN PRN Reason: Sore Throat Last Admin: 10/09/17 01:33 Dose: 1 carla Carvedilol (Coreg) 12.5 mg PO BID [facility] Digoxin (Lanoxin) 0.125 mg PO DAILY@1800 [facility] Last Admin: 10/09/17 18:35 Dose: 0.125 mg Diphenhydramine HCl (Benadryl) 50 mg PO Q6 PRN PRN Reason: Itching / Pruritus Last Admin: 10/09/17 20:01 Dose: 50 mg Enalapril Maleate (Vasotec) 10 mg PO DAILY [facility] Last Admin: 10/09/17 11:00 Dose: 10 mg Fluoxetine HCl (Prozac) 20 mg PO DAILY [facility] Last Admin: 10/09/17 11:00 Dose: 20 mg Furosemide (Lasix) 40 mg IVP BID [facility] Last Admin: 10/09/17 18:30 Dose: Not Given Gabapentin (Neurontin) 300 mg PO QAM [facility] Last Admin: 10/09/17 10:59 Dose: 300 mg Gabapentin (Neurontin) 600 mg PO QPM [facility] Last Admin: 10/09/17 18:35 Dose: 600 mg Diltiazem HCl 125 mg/ Dextrose 125 mls @ 10 mls/hr IV .[id number] JEIMY; 10 MG/HR PRN Reason: Protocol Last Admin: 10/09/17 23:03 Dose: Not Given Lorazepam (Ativan) 2 mg PO Q4 PRN PRN Reason: Agitation Last Admin: 10/09/17 20:05 Dose: 2 mg Montelukast Sodium (Singulair) 10 mg PO HS [facility] Last Admin: 10/09/17 22:22 Dose: 10 mg Nicotine (Nicoderm Cq) 1 patch TD DAILY [facility] Last Admin: 10/09/17 11:00 Dose: 1 patch Ondansetron HCl (Zofran Inj) 4 mg IVP Q6 PRN PRN Reason: Nausea/Vomiting Last Admin: 10/09/17 23:02 Dose: 4 mg Oxycodone/Acetaminophen (Percocet 5/325 Mg Tab) 2 tab PO Q6H PRN PRN Reason: Pain, moderate (4-7) Stop: 10/10/17 20:34 Last Admin: 10/09/17 20:01 Dose: 2 tab Pantoprazole Sodium (Protonix Ec Tab) 40 mg PO DAILY [facility] Last Admin: 10/09/17 11:00 Dose: 40 mg Potassium Chloride (K-Dur 20 Meq Er Tab) 40 meq PO DAILY [facility] Last Admin: 10/09/17 11:00 Dose: 40 meq Rosuvastatin Calcium (Crestor) 5 mg PO [facility] Last Admin: 10/09/17 22:22 Dose: 5 mg Spironolactone (Aldactone) 25 mg PO DAILY [facility] Last Admin: 10/09/17 11:00 Dose: 25 mg - Labs Labs: 10/09/17 08:15 10/09/17 08:15 - Additional Findings Additional findings: - Constitutional Appears: Well, Non-toxic - Head Exam Head Exam: ATRAUMATIC, NORMAL INSPECTION, NORMOCEPHALIC - Eye Exam Eye Exam: EOMI - ENT Exam ENT Exam: Mucous Membranes Moist - Neck Exam Neck Exam: Normal Inspection - Respiratory Exam Respiratory Exam: Clear to Ausculation Bilateral, NORMAL BREATHING PATTERN - Cardiovascular Exam Cardiovascular Exam: Irregular Rhythm. absent: Bradycardia, Tachycardia - GI/Abdominal Exam GI & Abdominal Exam: Soft, Tenderness (mild tenderness to deep palpation), Normal Bowel Sounds. absent: Distended - Back Exam Back Exam: absent: CVA tenderness (L), CVA tenderness (R) - Neurological Exam Neurological Exam: Alert, Awake, Oriented x3 - Psychiatric Exam Psychiatric exam: Normal Affect, Normal Mood - Skin Skin Exam: Dry, Intact, Normal Color, Warm Assessment and Plan - Assessment and Plan (Free Text) Assessment: Atrial fibrillation with RVR Admit to telemetry In rapid A fib with RVR in the ED Cardizem drip @ 10 Continue home medications: * Digoxin 0.125mg PO daily * Coreg 12.5mg PO BID (HELD until results of UDS, pt with cocaine history) * ASA 325mg CHADS score of 2 points (Positives: CHF, HTN) No anticoagulation per Dr. Ocampo due to risk of splenic infarct converting to hemorrhagic. Chest Pain - R/O ACS JOSE - 0.2 - 0.1 EKG: no acute St/T wave changes Systolic CHF exacerbation BNP 11,500 (previous admission 8500 CXR (10/07/17): Residual/recurrent CHF. No pleural effusion. Pattern improved vs 09/06/17. ECHO (02/2017): LV systolic function severely reduced. LV mildly dilated. Severe global hypokinesis of LV. Negative for endocarditis. HOLD BB due until UDS clean Lasix 40mg IV BID Continue home medications: * Enalapril 10mg PO Daily * Aldactone 25mg PO daily Fluid restriction Daily weights, I/Os Hypertension Elevated but down-trending Lasix 40mg IV BID Continue home medications: * Enalapril 10mg PO daily * Aldactone 25mg PO daily Monitor History of coronary artery disease Continue home medications: * Aspirin 325mg PO daily * Crestor 5mg PO HS History of COPD Continue home medications: * Ventolin 2 puff IH BID * Singulair 10 mg PO HS Anxiety and depression Prozac 20mg po daily Ativan 1mg TID Chronic Back Pain secondary to Lumbar Spine DJD Continue home meds: * Percocet 2 tabs PO q6h prn * Gabapentin 300 mg PO QAM, 600mg QPM Added Benadryl PO Q6 prn to be given with the percocet if needed Hx Cocaine use Urine drug screen + Cocaine Metabolites -No BB Counseled on cessation of illicit substances Tobacco abuse Nicotine patch TD daily Counseled on tobacco use cessation Prophylactic measure VTE ppx contraindicated due to risk of splenic infarct converting to hemorrhagic SCDs contraindicated due to b/l LE edema Protonix 40mg PO daily Regular diet <Roque Ocampo Jr. - Last Filed: 10/10/17 14:24> Objective - Vital Signs/Intake and Output Vital Signs (last 24 hours): Temp Pulse Resp BP Pulse Ox 97.9 F 90 20 130/87 99 10/10/17 08:17 10/10/17 09:14 10/10/17 08:17 10/10/17 09:16 10/09/17 23:10 Intake and Output: 10/10/17 10/10/17 06:59 18:59 Intake Total 480 Balance 480 - Medications Medications: Current Medications Albuterol (Ventolin Hfa 90 Mcg/Actuation (8 G)) 2 puff IH RBID [facility] Last Admin: 10/10/17 07:50 Dose: Not Given Aspirin (Ecotrin) 325 mg PO DAILY [facility] Last Admin: 10/10/17 09:15 Dose: 325 mg Benzocaine/Menthol (Cepacol Sore Throat) 1 carla MT Q6H PRN PRN Reason: Sore Throat Last Admin: 10/09/17 01:33 Dose: 1 carla Carvedilol (Coreg) 12.5 mg PO BID [facility] Digoxin (Lanoxin) 0.125 mg PO DAILY@1800 [facility] Last Admin: 10/09/17 18:35 Dose: 0.125 mg Diltiazem HCl (Cardizem) 120 mg PO TID [facility] Last Admin: 10/10/17 13:28 Dose: 120 mg Diphenhydramine HCl (Benadryl) 50 mg PO Q6 PRN PRN Reason: Itching / Pruritus Last Admin: 10/10/17 10:25 Dose: 50 mg Enalapril Maleate (Vasotec) 10 mg PO DAILY [facility] Last Admin: 10/10/17 09:16 Dose: 10 mg Fluoxetine HCl (Prozac) 20 mg PO DAILY [facility] Last Admin: 10/10/17 09:15 Dose: 20 mg Furosemide (Lasix) 40 mg IVP BID [facility] Last Admin: 10/10/17 09:16 Dose: 40 mg Gabapentin (Neurontin) 300 mg PO QAM [facility] Last Admin: 10/10/17 09:15 Dose: 300 mg Gabapentin (Neurontin) 600 mg PO QPM [facility] Last Admin: 10/09/17 18:35 Dose: 600 mg Hydromorphone HCl (Dilaudid) 1 mg IVP Q6 PRN PRN Reason: Pain, severe (8-10) Last Admin: 10/10/17 08:43 Dose: 1 mg Lorazepam (Ativan) 2 mg PO Q4 PRN PRN Reason: Agitation Last Admin: 10/10/17 13:30 Dose: 2 mg Montelukast Sodium (Singulair) 10 mg PO HS [facility] Last Admin: 10/09/17 22:22 Dose: 10 mg Nicotine (Nicoderm Cq) 1 patch TD DAILY [facility] Last Admin: 10/10/17 09:18 Dose: 1 patch Ondansetron HCl (Zofran Inj) 4 mg IVP Q6 PRN PRN Reason: Nausea/Vomiting Last Admin: 10/09/17 23:02 Dose: 4 mg Oxycodone/Acetaminophen (Percocet 5/325 Mg Tab) 2 tab PO Q6H PRN PRN Reason: Pain, moderate (4-7) Stop: 10/10/17 20:34 Last Admin: 10/10/17 10:23 Dose: 2 tab Pantoprazole Sodium (Protonix Ec Tab) 40 mg PO DAILY [facility] Last Admin: 10/10/17 09:16 Dose: 40 mg Potassium Chloride (K-Dur 20 Meq Er Tab) 40 meq PO DAILY [facility] Last Admin: 10/10/17 09:15 Dose: 40 meq Rosuvastatin Calcium (Crestor) 5 mg PO HS [facility] Last Admin: 10/09/17 22:22 Dose: 5 mg Spironolactone (Aldactone) 25 mg PO DAILY [facility] Last Admin: 10/10/17 09:15 Dose: 25 mg - Labs Labs: 10/10/17 08:36 10/10/17 08:36 Attending/Attestation - Attestation I have personally seen and examined this patient.: Yes I have fully participated in the care of the patient.: Yes I have reviewed all pertinent clinical information, including history, physical exam and plan: Yes Notes (Text): 10/10/17 14:24 Agree with resident note and plan of care
[2017-10-10] MEDS: Oxycodone/Acetaminophen 5/325 mg Tab PO PRN ×3 (02:47→17:20)
[2017-10-10] MEDS: Albuterol HFA 90 mcg/actuation (8 g) IH SCH ×2 (07:50→19:57)
[2017-10-10] MEDS ORDERED: HYDROmorphone 1 mg/ml ISec IVP PRN (08:14)
--- NOTE | 2017-10-10 08:28 | CARD ---
APPROVED REPORT EKG Measurement Heart [id number] <Conclusion> Atrial fibrillation with rapid ventricular response Pulmonary disease pattern Left anterior fascicular block Inferior-posterior infarct, age undetermined ST & T wave abnormality, consider lateral ischemia Abnormal ECG
[2017-10-10] MEDS: HYDROmorphone 1 mg/ml ISec IVP PRN ×3 (08:43→21:20)
[2017-10-10 08:49] LABS: BASO # 0.1 K/uL (0.0-0.2); BASO % 0.7 % (0.0-2.0); EOS # 0.2 K/uL (0.0-0.7); EOS % 1.2 % (0.0-4.0); HEMATOCRIT 42.8 % (35.0-51.0); LYMPH # 1.5 K/uL (1.0-4.3); LYMPH % 10.9 % (20.0-40.0); MEAN CELL VOLUME 79.8 fL (80.0-94.0); MEAN CORPUSCULAR HEMOGLOBIN 25.6 pg (27.0-31.0); MEAN CORPUSCULAR HGB CONC 32.1 g/dL (33.0-37.0); MEAN PLATELET VOLUME 8.3 fL (7.2-11.7); MONO # 2.1 K/uL (0.0-0.8); MONO % 15.1 % (0.0-10.0); RED CELL DISTRIBUTION WIDTH 22.8 % (11.5-14.5); WHITE BLOOD COUNT 13.8 K/uL (4.8-10.8)
[2017-10-10 09:05] LABS: CHLORIDE 90 mmol/L (98-107)
[2017-10-10 09:06] LABS: POTASSIUM 4.9 mmol/L (3.6-5.2); SODIUM 127 mmol/L (132-148)
[2017-10-10 09:08] LABS: ALKALINE PHOSPHATASE 73 U/L (38-126); ALT/SGPT 37 U/L (21-72); AST/SGOT 49 U/L (17-59); BILIRUBIN,TOTAL 1.1 mg/dL (0.2-1.3); BLOOD UREA NITROGEN 28 mg/dL (9-20); CARBON DIOXIDE 28 mmol/L (22-30); GFR AFRICAN-AMERICAN > 60; GLUCOSE,RANDOM 110 mg/dL (75-110); TOTAL PROTEIN 8.4 g/dL (6.3-8.3)
[2017-10-10 09:09] LABS: CALCIUM 8.3 mg/dl (8.6-10.4); MAGNESIUM 1.8 mg/dL (1.6-2.3)
[2017-10-10] MEDS: Aspirin 325 mg EC Tablets PO SCH (09:15)
[2017-10-10] MEDS: Potassium Chloride 20 mEq ER Tab PO SCH (09:15)
[2017-10-10] MEDS: Pantoprazole 40 mg EC Tab PO SCH (09:16)
[2017-10-10] MEDS: Digoxin 125 mcg (0.125 mg) Tab PO SCH (17:17)
[2017-10-11] MEDS: Oxycodone/Acetaminophen 5/325 mg Tab PO PRN ×4 (00:07→18:11)
--- NOTE | 2017-10-11 01:05 | CP.PCM.PN ---
Subjective - Date & Time of Evaluation Date of Evaluation: 10/11/17 Time of Evaluation: 01:04 - Subjective Subjective: PGY1 Note for Dr. Ocampo HPI: Patient seen and examined at bedside. Complaining of Nausea, back pain, pain with urination, diaphoresis. Denies chest pain or SOB. No other complaints at this time. Objective - Vital Signs/Intake and Output Vital Signs (last 24 hours): Temp Pulse Resp BP Pulse Ox 99.4 F 96 H 20 127/82 96 10/10/17 16:00 10/10/17 16:00 10/10/17 16:00 10/10/17 17:19 10/10/17 16:00 - Medications Medications: Current Medications Albuterol (Ventolin Hfa 90 Mcg/Actuation (8 G)) 2 puff IH RBID [facility] Last Admin: 10/10/17 19:57 Dose: Not Given Aspirin (Ecotrin) 325 mg PO DAILY [facility] Last Admin: 10/10/17 09:15 Dose: 325 mg Benzocaine/Menthol (Cepacol Sore Throat) 1 carla MT Q6H PRN PRN Reason: Sore Throat Last Admin: 10/09/17 01:33 Dose: 1 carla Carvedilol (Coreg) 12.5 mg PO BID [facility] Digoxin (Lanoxin) 0.125 mg PO DAILY@1800 [facility] Last Admin: 10/10/17 17:17 Dose: 0.125 mg Diltiazem HCl (Cardizem) 120 mg PO TID [facility] Last Admin: 10/10/17 17:20 Dose: 120 mg Diphenhydramine HCl (Benadryl) 50 mg PO Q6 PRN PRN Reason: Itching / Pruritus Last Admin: 10/11/17 00:09 Dose: 50 mg Enalapril Maleate (Vasotec) 10 mg PO DAILY [facility] Last Admin: 10/10/17 09:16 Dose: 10 mg Fluoxetine HCl (Prozac) 20 mg PO DAILY [facility] Last Admin: 10/10/17 09:15 Dose: 20 mg Furosemide (Lasix) 40 mg IVP BID [facility] Last Admin: 10/10/17 17:19 Dose: 40 mg Gabapentin (Neurontin) 300 mg PO QAM [facility] Last Admin: 10/10/17 09:15 Dose: 300 mg Gabapentin (Neurontin) 600 mg PO QPM [facility] Last Admin: 10/10/17 18:12 Dose: 600 mg Hydromorphone HCl (Dilaudid) 1 mg IVP Q6 PRN PRN Reason: Pain, severe (8-10) Last Admin: 10/10/17 21:20 Dose: 1 mg Lorazepam (Ativan) 2 mg PO Q4 PRN PRN Reason: Agitation Last Admin: 10/10/17 22:55 Dose: 2 mg Montelukast Sodium (Singulair) 10 mg PO HS [facility] Last Admin: 10/10/17 21:20 Dose: 10 mg Nicotine (Nicoderm Cq) 1 patch TD DAILY [facility] Last Admin: 10/10/17 09:18 Dose: 1 patch Ondansetron HCl (Zofran Inj) 4 mg IVP Q6 PRN PRN Reason: Nausea/Vomiting Last Admin: 10/09/17 23:02 Dose: 4 mg Oxycodone/Acetaminophen (Percocet 5/325 Mg Tab) 2 tab PO Q6H PRN PRN Reason: Pain, severe (8-10) Stop: 10/13/17 23:00 Last Admin: 10/11/17 00:07 Dose: 2 tab Pantoprazole Sodium (Protonix Ec Tab) 40 mg PO DAILY [facility] Last Admin: 10/10/17 09:16 Dose: 40 mg Potassium Chloride (K-Dur 20 Meq Er Tab) 40 meq PO DAILY [facility] Last Admin: 10/10/17 09:15 Dose: 40 meq Rosuvastatin Calcium (Crestor) 5 mg PO HS [facility] Last Admin: 10/10/17 21:20 Dose: 5 mg Spironolactone (Aldactone) 25 mg PO DAILY [facility] Last Admin: 10/10/17 09:15 Dose: 25 mg - Labs Labs: 10/10/17 08:36 10/10/17 08:36 - Additional Findings Additional findings: - Constitutional Appears: Well, Non-toxic - Head Exam Head Exam: ATRAUMATIC, NORMAL INSPECTION, NORMOCEPHALIC - Eye Exam Eye Exam: EOMI - ENT Exam ENT Exam: Mucous Membranes Moist - Neck Exam Neck Exam: Normal Inspection - Respiratory Exam Respiratory Exam: Clear to Ausculation Bilateral, NORMAL BREATHING PATTERN - Cardiovascular Exam Cardiovascular Exam: Irregular Rhythm. absent: Bradycardia, Tachycardia - GI/Abdominal Exam GI & Abdominal Exam: Soft, Tenderness (mild tenderness to deep palpation), Normal Bowel Sounds. absent: Distended - Back Exam Back Exam: absent: CVA tenderness (L), CVA tenderness (R) - Neurological Exam Neurological Exam: Alert, Awake, Oriented x3 - Psychiatric Exam Psychiatric exam: Normal Affect, Normal Mood - Skin Skin Exam: Dry, Intact, Normal Color, Warm Assessment and Plan - Assessment and Plan (Free Text) Assessment: Atrial fibrillation with RVR Admit to telemetry In rapid A fib with RVR in the ED Casey huston @ 10 Continue home medications: * Digoxin 0.125mg PO daily * Coreg 12.5mg PO BID (HELD until results of UDS, pt with cocaine history) * ASA 325mg CHADS score of 2 points (Positives: CHF, HTN) No anticoagulation per Dr. Ocampo due to risk of splenic infarct converting to hemorrhagic. Chest Pain - R/O ACS JOSE - 0.2 - 0.1 EKG: no acute St/T wave changes Systolic CHF exacerbation BNP 11,500 (previous admission 8500 CXR (10/07/17): Residual/recurrent CHF. No pleural effusion. Pattern improved vs 09/06/17. ECHO (02/2017): LV systolic function severely reduced. LV mildly dilated. Severe global hypokinesis of LV. Negative for endocarditis. HOLD BB due until UDS clean Lasix 40mg IV BID Continue home medications: * Enalapril 10mg PO Daily * Aldactone 25mg PO daily Fluid restriction Daily weights, I/Os Hypertension Elevated but down-trending Lasix 40mg IV BID Continue home medications: * Enalapril 10mg PO daily * Aldactone 25mg PO daily Monitor History of coronary artery disease Continue home medications: * Aspirin 325mg PO daily * Crestor 5mg PO HS History of COPD Continue home medications: * Ventolin 2 puff IH BID * Singulair 10 mg PO HS Anxiety and depression Prozac 20mg po daily Ativan 1mg TID Chronic Back Pain secondary to Lumbar Spine DJD Continue home meds: * Percocet 2 tabs PO q6h prn * Gabapentin 300 mg PO QAM, 600mg QPM Added Benadryl PO Q6 prn to be given with the percocet if needed Hx Cocaine use Urine drug screen + Cocaine Metabolites -No BB Counseled on cessation of illicit substances Tobacco abuse Nicotine patch TD daily Counseled on tobacco use cessation Prophylactic measure VTE ppx contraindicated due to risk of splenic infarct converting to hemorrhagic SCDs contraindicated due to b/l LE edema Protonix 40mg PO daily Regular diet
[2017-10-11] MEDS: HYDROmorphone 1 mg/ml ISec IVP PRN ×4 (03:18→21:15)
[2017-10-11 08:30] LABS: BASO # 0.1 K/uL (0.0-0.2); BASO % 0.7 % (0.0-2.0); EOS # 0.1 K/uL (0.0-0.7); EOS % 0.8 % (0.0-4.0); HEMATOCRIT 42.4 % (35.0-51.0); LYMPH # 1.5 K/uL (1.0-4.3); LYMPH % 9.1 % (20.0-40.0); MEAN CELL VOLUME 79.6 fL (80.0-94.0); MEAN CORPUSCULAR HEMOGLOBIN 25.1 pg (27.0-31.0); MEAN CORPUSCULAR HGB CONC 31.5 g/dL (33.0-37.0); MEAN PLATELET VOLUME 8.2 fL (7.2-11.7); MONO # 2.3 K/uL (0.0-0.8); MONO % 14.5 % (0.0-10.0); PLATELET COUNT 232 K/uL (130-400); RED CELL DISTRIBUTION WIDTH 22.5 % (11.5-14.5)
[2017-10-11] MEDS: Albuterol HFA 90 mcg/actuation (8 g) IH SCH ×2 (08:31→20:13)
[2017-10-11 08:51] LABS: POTASSIUM 4.4 mmol/L (3.6-5.2)
[2017-10-11 08:53] LABS: ALB/GLOB RATIO 0.8 (1.0-2.1); BILIRUBIN,TOTAL 0.8 mg/dL (0.2-1.3); TOTAL PROTEIN 8.9 g/dL (6.3-8.3)
[2017-10-11 08:54] LABS: CALCIUM 8.4 mg/dl (8.6-10.4)
[2017-10-11] MEDS: Potassium Chloride 20 mEq ER Tab PO SCH (09:03)
[2017-10-11] MEDS: Pantoprazole 40 mg EC Tab PO SCH (09:03)
[2017-10-11] MEDS: Aspirin 325 mg EC Tablets PO SCH (09:03)
[2017-10-11 09:59] LABS: EOSINOPHIL 2 % (0-4); NEUTROPHIL 73 % (50-75); TOTAL CELLS COUNTED 100
[2017-10-11 10:00] LABS: GIANT PLATELETS PRESENT; LARGE PLATELETS PRESENT
[2017-10-11] MEDS ORDERED: Sodium Chloride 0.9% 1,000 ML IV SCH (12:15)
[2017-10-11] MEDS: Digoxin 125 mcg (0.125 mg) Tab PO SCH (18:10)
[2017-10-11 18:15] VITALS: PULSE 97
[2017-10-12] MEDS: Oxycodone/Acetaminophen 5/325 mg Tab PO PRN ×2 (00:42→08:12)
[2017-10-12 02:07] VITALS: PULSE 61
[2017-10-12] MEDS: HYDROmorphone 1 mg/ml ISec IVP PRN ×2 (03:11→09:27)
[2017-10-12 08:46] VITALS: RESP 18; TEMP 97.3; O2SAT 100
[2017-10-12] MEDS: Pantoprazole 40 mg EC Tab PO SCH (09:26)
[2017-10-12] MEDS: Aspirin 325 mg EC Tablets PO SCH (09:26)
[2017-10-12] MEDS: Potassium Chloride 20 mEq ER Tab PO SCH (09:26)
[2017-10-12 09:28] VITALS: BP 116/75
[2017-10-12] MEDS: Albuterol HFA 90 mcg/actuation (8 g) IH SCH (09:45)
--- NOTE | 2017-10-12 10:52 | CP.PCM.DIS ---
Provider - Provider Date of Admission: 10/07/17 11:24 Attending physician: Roque Ocampo Jr, MD Time Spent in preparation of Discharge (in minutes): 45 Hospital Course - Lab Results Lab Results: Most Recent Lab Values WBC 16.0 K/uL (4.8-10.8) H 10/11/17 08:14 RBC 5.32 Mil/uL (4.40-5.90) 10/11/17 08:14 Hgb 13.4 g/dL (12.0-18.0) 10/11/17 08:14 Hct 42.4 % (35.0-51.0) 10/11/17 08:14 MCV 79.6 fL (80.0-94.0) L 10/11/17 08:14 MCH 25.1 pg (27.0-31.0) L 10/11/17 08:14 MCHC 31.5 g/dL (33.0-37.0) L 10/11/17 08:14 RDW 22.5 % (11.5-14.5) H 10/11/17 08:14 Plt Count 232 K/uL (130-400) 10/11/17 08:14 MPV 8.2 fL (7.2-11.7) 10/11/17 08:14 Neut % (Auto) 74.9 % (50.0-75.0) 10/11/17 08:14 Lymph % (Auto) 9.1 % (20.0-40.0) L 10/11/17 08:14 [place] % (Auto) 14.5 % (0.0-10.0) H 10/11/17 08:14 Eos % (Auto) 0.8 % (0.0-4.0) 10/11/17 08:14 Baso % (Auto) 0.7 % (0.0-2.0) 10/11/17 08:14 Neut # 12.0 K/uL (1.8-7.0) H 10/11/17 08:14 Lymph # 1.5 K/uL (1.0-4.3) 10/11/17 08:14 [place] # 2.3 K/uL (0.0-0.8) H 10/11/17 08:14 Eos # 0.1 K/uL (0.0-0.7) 10/11/17 08:14 Baso # 0.1 K/uL (0.0-0.2) 10/11/17 08:14 Neutrophils % (Manual) 73 % (50-75) 10/11/17 08:14 Band Neutrophils % 1 % (0-2) 10/11/17 08:14 Lymphocytes % (Manual) 9 % (20-40) L 10/11/17 08:14 Monocytes % (Manual) 15 % (0-10) H 10/11/17 08:14 Eosinophils % (Manual) 2 % (0-4) 10/11/17 08:14 Platelet Estimate Normal (NORMAL) 10/11/17 08:14 Large Platelets Present 10/11/17 08:14 Giant Platelets Present 10/11/17 08:14 Hypochromasia (manual) Slight 10/11/17 08:14 Anisocytosis (manual) Moderate 10/11/17 08:14 Microcytosis (manual) Slight 10/11/17 08:14 Macrocytosis (manual) Slight 10/11/17 08:14 Ovalocytes Slight 10/11/17 08:14 Sodium 127 mmol/L (132-148) L 10/11/17 08:14 Potassium 4.4 mmol/L (3.6-5.2) 10/11/17 08:14 Chloride 91 mmol/L (98-107) L 10/11/17 08:14 Carbon Dioxide 27 mmol/L (22-30) 10/11/17 08:14 Anion Gap 14 (10-20) 10/11/17 08:14 BUN 37 mg/dL (9-20) H 10/11/17 08:14 Creatinine 1.7 mg/dL (0.8-1.5) H 10/11/17 08:14 Est GFR ( Amer) 52 10/11/17 08:14 Est GFR (Non-Af Amer) 43 10/11/17 08:14 POC Glucose (mg/dL) 106 mg/dL (65-110) 10/11/17 07:01 Random Glucose 96 mg/dL (75-110) 10/11/17 08:14 Hemoglobin A1c 6.3 % (4.2-6.5) 10/08/17 06:51 Calcium 8.4 mg/dl (8.6-10.4) L 10/11/17 08:14 Phosphorus 4.0 mg/dL (2.5-4.5) 10/10/17 08:36 Magnesium 1.8 mg/dL (1.6-2.3) 10/10/17 08:36 Total Bilirubin 0.8 mg/dL (0.2-1.3) 10/11/17 08:14 AST 45 U/L (17-59) 10/11/17 08:14 ALT 42 U/L (21-72) 10/11/17 08:14 Alkaline Phosphatase 80 U/L (38-126) 10/11/17 08:14 Total Creatine Kinase 182 U/L (55-170) H 10/08/17 06:51 CK-MB (Mass) 5.65 ng/mL (0.0-3.38) H 10/08/17 06:51 Troponin I 0.2120 ng/mL (0.00-0.120) H* 10/07/17 09:57 Troponin I, Quant 0.1500 ng/mL (0.00-0.120) H* 10/08/17 06:51 NT-Pro-B Natriuret Pep 22499 pg/mL (0-450) H 10/07/17 09:57 Total Protein 8.9 g/dL (6.3-8.3) H 10/11/17 08:14 Albumin 3.9 g/dL (3.5-5.0) 10/11/17 08:14 Globulin 5.0 gm/dL (2.2-3.9) H 10/11/17 08:14 Albumin/Globulin Ratio 0.8 (1.0-2.1) L 10/11/17 08:14 Triglycerides 83 mg/dL (0-149) D 10/08/17 06:51 Cholesterol 115 mg/dL (0-199) 10/08/17 06:51 LDL Cholesterol Direct 78 mg/dL (0-129) 10/08/17 06:51 HDL Cholesterol 29 mg/dL (30-70) L 10/08/17 06:51 Free T4 1.45 ng/dL (0.78-2.19) 10/08/17 06:51 TSH 3rd Generation 3.77 mIU/L (0.46-4.68) 10/08/17 06:51 Urine Opiates Screen Negative (NEGATIVE) 10/08/17 10:49 Urine Methadone Screen Negative (NEGATIVE) 10/08/17 10:49 Ur Barbiturates Screen Negative (NEGATIVE) 10/08/17 10:49 Ur Phencyclidine Scrn Negative (NEGATIVE) 10/08/17 10:49 Ur Amphetamines Screen Negative (NEGATIVE) 10/08/17 10:49 U Benzodiazepines Scrn Negative (NEGATIVE) 10/08/17 10:49 U Oth Cocaine Metabols Positive (NEGATIVE) 10/08/17 10:49 U Cannabinoids Screen Negative (NEGATIVE) 10/08/17 10:49 Influenza Typ A,B (EIA) Negative for flu a/b (NEGATIVE) 10/09/17 14:36 - Hospital Course Hospital Course: 47 year old male with past medical history of HTN, CAD, CHF, Afib, COPD , ARLENE, Herniated Disc L-spine, Bipolar/Depression, Asthma, Splenic infarcts/ abscess presented to [facility] ED with shortness of breath and chest pain with palpitations. Patients states he began to have chest pain the day before admission and it gradually worsened. He described the location as substernal without radiation. Patient states the morning of admission, the chest pain become associated with shortness of breath and palpitations, stating I couldn t believe how fast my heart was racing. Patient states he has been compliant with home Cardizem for atrial fibrillation. Patient states his pain is 8/10, but has decreased since arriving in ED. He states he no longer takes Coumadin, per his primary medical doctors recommendation. He denies fever, chills, abdominal pain, nausea, vomiting, or diarrhea upon admission. Patients lab showed mildly elevated Troponin (0.212) levels but it was mostly like due to his Atrial Fibrillation. CT of Chest/Abdomen/Pelvis without contrast revealed no evidence of acute pathology or significant interval change compared to the previous exams. Throughout the hospital stay, patient complained of some abdominal discomfort which resolved on its own. Discharge Exam - Head Exam Head Exam: ATRAUMATIC, NORMAL INSPECTION, NORMOCEPHALIC - Eye Exam Eye Exam: EOMI Pupil Exam: NORMAL ACCOMODATION - Respiratory Exam Respiratory Exam: Clear to PA & Lateral, NORMAL BREATHING PATTERN - Cardiovascular Exam Cardiovascular Exam: REGULAR RHYTHM - GI/Abdominal Exam GI & Abdominal Exam: Normal Bowel Sounds, Unremarkable. absent: Distended, Soft - Neurological Exam Neurological exam: Alert, Oriented x3 - Skin Skin Exam: Dry, Intact, Normal Color, Warm Discharge Plan - Follow Up Plan Condition: STABLE Disposition: HOME/ ROUTINE Instructions: Heart Failure (DC), Atrial Fibrillation (DC), Heart Healthy Diet (DC) Additional Instructions: Patient is stable and clear for D/C Patient should follow up with his primary care doctor in one week for follow up of his chronic medical problems Patient should continue home medications Patient should return to the ED if symptoms return or worsen Referrals: Roque Ocampo Jr., MD [Medical Doctor] -
[2017-10-12 11:44] LABS: BASO # 0.1 K/uL (0.0-0.2); BASO % 0.5 % (0.0-2.0); EOS # 0.2 K/uL (0.0-0.7); EOS % 1.8 % (0.0-4.0); HEMATOCRIT 39.9 % (35.0-51.0); LYMPH # 0.9 K/uL (1.0-4.3); MEAN CELL VOLUME 79.7 fL (80.0-94.0); MEAN CORPUSCULAR HEMOGLOBIN 25.5 pg (27.0-31.0); MEAN CORPUSCULAR HGB CONC 31.9 g/dL (33.0-37.0); MEAN PLATELET VOLUME 8.3 fL (7.2-11.7); MONO # 1.4 K/uL (0.0-0.8); MONO % 12.3 % (0.0-10.0); NRBC % 0.1 % (0.0-2.0); PLATELET COUNT 225 K/uL (130-400); RED CELL DISTRIBUTION WIDTH 22.4 % (11.5-14.5); WHITE BLOOD COUNT 11.8 K/uL (4.8-10.8)
[2017-10-12 12:13] LABS: CHLORIDE 91 mmol/L (98-107)
[2017-10-12 12:14] LABS: POTASSIUM 4.7 mmol/L (3.6-5.2); SODIUM 127 mmol/L (132-148)
[2017-10-12 12:16] LABS: CARBON DIOXIDE 27 mmol/L (22-30); GFR AFRICAN-AMERICAN > 60
[2017-10-12 12:17] LABS: ALB/GLOB RATIO 0.8 (1.0-2.1); ALKALINE PHOSPHATASE 94 U/L (38-126); ALT/SGPT 33 U/L (21-72); AST/SGOT 40 U/L (17-59); BILIRUBIN,TOTAL 0.7 mg/dL (0.2-1.3); BLOOD UREA NITROGEN 36 mg/dL (9-20); CALCIUM 8.2 mg/dl (8.6-10.4); GLUCOSE,RANDOM 143 mg/dL (75-110)
[2017-10-12 12:20] LABS: BASOPHIL 1 % (0-2); EOSINOPHIL 4 % (0-4); NEUTROPHIL 78 % (50-75); TOTAL CELLS COUNTED 100
[2017-10-12 12:21] LABS: GIANT PLATELETS PRESENT; LARGE PLATELETS PRESENT
--- NOTE | 2017-10-12 17:19 | PCM.HF ---
Heart Failure Core Measure - Heart Failure Ejection Fraction: Less Than 40 % SHONDA Inhibitor Prescribed: Yes Beta-Yonis Prescribed: None Contraindication/Reason for not providing: ACTIVE COCAINE USER Angiotensin II Receptor Yonis Prescribed: No Contraindication/Reason for not providing: SHONDA AnticoagulationTherapy for Atrial Fibrillation/Atrialflutter: No Contraindication/Reason for not providing: HX OF SLEEP ABCESS Aldosterone Antagonist Prescribed: No Contraindication/Reason for not providing: ON DIG Hydralazine Nitrate Prescribed: No Contraindication/Reason for not providing: ON DIG Implantable Cardioverter Defibrillator Therapy: No Contraindication/Reason for not providing: NOT REQUIRE PER PMD Cardiac Resynchronization Therapy Prescribed: No Contraindication/Reason for not providing: NOT REQUIRE BY PMD - Follow up Will be discharged to: Home Follow Up Date (must be within 7 days from discharge): 10/19/17 Follow Up Time: 09:00
--- NOTE | 2017-10-13 11:13 | CARD ---
APPROVED REPORT EKG Measurement Heart [id number] <Conclusion> Atrial fibrillation with rapid ventricular response Left anterior fascicular block Cannot rule out Inferior infarct (masked by fascicular block?), age undetermined ST & T wave abnormality, consider anterolateral ischemia Abnormal ECG
== END 2017-10-12 12:16 | disposition home or self-care (01) | DRG 308 ==
LOC: C.ER 09:36 → C.9E 11:24 → C.6T 15:51
PROVIDERS: ADMIT Internal Medicine; ATTEND Internal Medicine
DX: I48.91 Unspecified atrial fibrillation (principal); I50.23 Acute on chronic systolic (congestive) heart failure; I11.0 Hypertensive heart disease with heart failure; I25.10 Atherosclerotic heart disease of native coronary artery without angina pectoris; G89.29 Other chronic pain; G47.33 Obstructive sleep apnea (adult) (pediatric); F41.9 Anxiety disorder, unspecified; F31.9 Bipolar disorder, unspecified; J44.9 Chronic obstructive pulmonary disease, unspecified; F14.10 Cocaine abuse, uncomplicated; E78.00 Pure hypercholesterolemia, unspecified; M47.816 Spondylosis without myelopathy or radiculopathy, lumbar region; Z72.0 Tobacco use; Z79.82 Long term (current) use of aspirin; Z79.899 Other long term (current) drug therapy; Z86.14 Personal history of Methicillin resistant Staphylococcus aureus infection; Z87.01 Personal history of pneumonia (recurrent); Z90.49 Acquired absence of other specified parts of digestive tract; Z95.5 Presence of coronary angioplasty implant and graft

== ENCOUNTER 2017-10-23 18:04 | Inpatient (IN) | payer MEDICARE, MEDICAID ==
[2017-10-23 18:04] VITALS: BMI 38.7
[2017-10-23 19:15] LABS: RBC URINE 3 /hpf (0-3); URINE BILIRUBIN NEGATIVE (NEGATIVE); URINE BLOOD NEGATIVE (NEGATIVE); URINE COLOR Yellow (YELLOW); URINE GLUCOSE (UA) NORMAL (Normal); URINE HYALINE CAST 0-2 /lpf (0-2); URINE KETONE NEGATIVE (NEGATIVE); URINE LEUKOCYTE ESTERASE NEG Leu/uL (Negative); URINE PROTEIN 2+ mg/dL (NEGATIVE); URINE UROBILINOGEN NORMAL mg/dL (0.2-1.0); WBC URINE 8 /hpf (0-5)
--- NOTE | 2017-10-23 19:28 | C.PDOC ---
Chief Complaint (Nursing): Shortness Of Breath Past Medical History Vital Signs: Last Vital Signs Temp 97.9 F 10/23/17 18:33 Pulse 92 H 10/23/17 18:33 Resp 26 H 10/23/17 18:45 BP 165/122 H 10/23/17 18:33 Pulse Ox 98 10/23/17 18:33 - Medical History PMH: Anxiety, Arthritis, Asthma, Atrial Fibrillation, Back Problems, Bipolar Disorder, CAD, Cardia Arrhythmia, CHF, COPD, Depression, HTN, Hypercholesterolemia, Peripheral Edema, Pneumonia, Sleep Apnea, Chronic Pain ( Lower Back Pain) Denies: Emphysema, Chronic Kidney Disease Surgical History: Appendectomy (2008), Coronary Stent (2008 - 2012 4 stents) - [facility] Procedures CORONAR ARTERIOGR-2 CATH (07/06/13) DRAINAGE OF SPLEEN, PERCUTANEOUS APPROACH (03/05/17) INJECT/INFUSE NEC (02/22/14) LEFT HEART CARDIAC CATH (07/06/13) LT HEART ANGIOCARDIOGRAM (07/06/13) NEBULIZER THERAPY (03/28/14) NON-INVASIVE MECHANICAL VENTILATION (03/26/15) TRANSFUSE NONAUT FROZEN PLASMA IN PERIPH VEIN, PERC (02/21/17) Family History: States: Unknown Family Hx, CAD, Diabetes - Social History Hx Tobacco Use: Yes Hx Alcohol Use: No (denies 10/23/17) Hx Substance Use: Yes (per pt no longer using) - Immunization History Hx Tetanus Toxoid Vaccination: Yes Hx Influenza Vaccination: Yes Hx Pneumococcal Vaccination: Yes (08/2014) ED Course And Treatment O2 Sat by Pulse Oximetry: 98 Disposition - Disposition Forms: [employer] (Sammarinese)
--- NOTE | 2017-10-23 19:29 | C.PDOC ---
History Of Present Illness 47 year old male presents to the ER with a complaint of SOB since yesterday and swelling to the lower extremities. Patient reports he has a Hx of an irregular heartbeat but denies chest pain. Chief Complaint (Nursing): Shortness Of Breath History Per: Patient History/Exam Limitations: no limitations Onset/Duration Of Symptoms: Days Current Symptoms Are (Timing): Still Present Initiating Event: Other (Not known) Current Respiratory Medications: None Severity: None Associated Symptoms: denies: Fever, Chills, Chest Pain Recent travel outside of the [place] States: No Past Medical History Reviewed: Historical Data, Nursing Documentation, Vital Signs Vital Signs: Last Vital Signs Temp 97.9 F 10/23/17 18:33 Pulse 92 H 10/23/17 18:33 Resp 26 H 10/23/17 18:45 BP 165/122 H 10/23/17 18:33 Pulse Ox 98 10/23/17 20:52 - Medical History PMH: Anxiety, Arthritis, Asthma, Atrial Fibrillation, Back Problems, Bipolar Disorder, CAD, Cardia Arrhythmia, CHF, COPD, Depression, HTN, Hypercholesterolemia, Peripheral Edema, Pneumonia, Sleep Apnea, Chronic Pain ( Lower Back Pain) Surgical History: Appendectomy (2008), Coronary Stent (2008 - 2012 4 stents) - [facility] Procedures CORONAR ARTERIOGR-2 CATH (07/06/13) DRAINAGE OF SPLEEN, PERCUTANEOUS APPROACH (03/05/17) INJECT/INFUSE NEC (02/22/14) LEFT HEART CARDIAC CATH (07/06/13) LT HEART ANGIOCARDIOGRAM (07/06/13) NEBULIZER THERAPY (03/28/14) NON-INVASIVE MECHANICAL VENTILATION (03/26/15) TRANSFUSE NONAUT FROZEN PLASMA IN PERIPH VEIN, PERC (02/21/17) Family History: States: CAD, Diabetes - Social History Hx Tobacco Use: Yes Hx Alcohol Use: No (denies 10/23/17) Hx Substance Use: Yes (per pt no longer using) - Immunization History Hx Tetanus Toxoid Vaccination: Yes Hx Influenza Vaccination: Yes Hx Pneumococcal Vaccination: Yes (08/2014) Review Of Systems Constitutional: Negative for: Fever, Chills Cardiovascular: Negative for: Chest Pain Respiratory: Positive for: Shortness of Breath Musculoskeletal: Positive for: Other (Lower extremity swelling) Physical Exam - Physical Exam Appears: Non-toxic, No Acute Distress Skin: Normal Color, Warm, Dry Head: Atraumatic, Normacephalic Oral Mucosa: Moist Neck: Normal, Supple Chest: Symmetrical, No Tenderness Cardiovascular: Rhythm Regular Respiratory: Rales (Occasional basilar) Gastrointestinal/Abdominal: Soft, No Tenderness Extremity: Pedal Edema (Bilateral) Pulses: Left Dorsalis Pedis: Normal, Right Dorsalis Pedis: Normal Neurological/Psych: Oriented x3, Normal Speech, Other (No focal deficits) ED Course And Treatment - Laboratory Results Result Diagrams: 10/23/17 20:07 10/23/17 20:07 ECG: Interpreted By Me, Viewed By Me ECG Rhythm: Atrial Fibrillation, ST/T Changes ECG Interpretation: No Acute Changes, Abnormal Interpretation Of ECG: atrial fibrillation with rapid ventricular response. St- t abnirmality lateral leads. Abnormal tracings. Rate From EC O2 Sat by Pulse Oximetry: 98 Pulse Ox Interpretation: Normal - Radiology CXR: Interpreted by Me, Viewed By Me CXR Interpretation: Yes: Cardiomegaly, Other (pulm.congestio, CHF) Progress Note: Blood work, EKG, CXR, urinalysis ordered. Disposition Discussed With Dr.: Roque Ocampo Jr. Doctor Will See Patient In The: Hospital Counseled Patient/Family Regarding: Diagnosis - Disposition Disposition: HOSPITALIZED Disposition Time: 20:50 Condition: STABLE Forms: [facility] (Frisian) - POA Present On Arrival: None - Clinical Impression Clinical Impression: Acute CHF, Atrial fibrillation, Atrial dysrhythmia - Scribe Statement The provider has reviewed the documentation as recorded by the Scribpradeep Mayorga All medical record entries made by the Scribe were at my direction and personally dictated by me. I have reviewed the chart and agree that the record accurately reflects my personal performance of the history, physical exam, medical decision making, and the department course for this patient. I have also personally directed, reviewed, and agree with the discharge instructions and disposition.
[2017-10-23 20:12] LABS: BASO # 0.1 K/uL (0.0-0.2); BASO % 1.2 % (0.0-2.0); EOS # 0.3 K/uL (0.0-0.7); EOS % 2.4 % (0.0-4.0); HEMATOCRIT 46.3 % (35.0-51.0); LYMPH # 2.2 K/uL (1.0-4.3); LYMPH % 19.1 % (20.0-40.0); MEAN CELL VOLUME 80.6 fL (80.0-94.0); MEAN CORPUSCULAR HEMOGLOBIN 25.6 pg (27.0-31.0); MEAN CORPUSCULAR HGB CONC 31.8 g/dL (33.0-37.0); MEAN PLATELET VOLUME 7.4 fL (7.2-11.7); MONO # 0.8 K/uL (0.0-0.8); MONO % 6.8 % (0.0-10.0); NRBC % 0.1 % (0.0-2.0); RED CELL DISTRIBUTION WIDTH 22.1 % (11.5-14.5); WHITE BLOOD COUNT 11.6 K/uL (4.8-10.8)
[2017-10-23 20:25] LABS: ALB/GLOB RATIO 0.9 (1.0-2.1); ALKALINE PHOSPHATASE 85 U/L (38-126); ALT/SGPT 33 U/L (21-72); AST/SGOT 40 U/L (17-59); BILIRUBIN,TOTAL 0.9 mg/dL (0.2-1.3); BLOOD UREA NITROGEN 26 mg/dL (9-20); CALCIUM 8.7 mg/dl (8.6-10.4); CARBON DIOXIDE 22 mmol/L (22-30); CHLORIDE 101 mmol/L (98-107); GFR AFRICAN-AMERICAN > 60; GLUCOSE,RANDOM 90 mg/dL (75-110); POTASSIUM 5.1 mmol/L (3.6-5.2); SODIUM 134 mmol/L (132-148); TOTAL PROTEIN 9.3 g/dL (6.3-8.3)
[2017-10-23 20:27] LABS: INR 1.1
[2017-10-23] MEDS ORDERED: Albuterol HFA 90 mcg/actuation (8 g) INH PRN (21:12)
--- NOTE | 2017-10-23 21:22 | CP.PCM.HP ---
History of Present Illness - History of Present Illness History of Present Illness: CC: "Shortness of breath, chest pain" HPI: Patient is a 47 year old male, with PMHx of HTN, CAD, CHF, Afib, COPD, ARLENE, Herniated discs L-spine, Bipolar/Depression, Asthma, hx of splenic infarct/ abscess, who presents to the emergency room complaining of sob and chest pain. Patient states he began having chest pain yesterday in the evening while he was resting and it has gradually worsened. He states he waited to come to the ED because he wanted to see if the chest pain was going to get better. He describes location as substernal without radiation. Patient states his pain is an 10/10. He states his shortness of breath and chest pain are both related to his anxiety ever since he quit smoking 9 months ago. He denies fever, chills, abdominal pain, nausea, vomiting, or diarrhea. PMHx: HTN, CAD, CHF, Afib, COPD, ARLENE, Herniated discs L-spine, Bipolar/ Depression, Asthma, hx of splenic infarct/abscess (As per chart review) PSHx: Appendectomy (2008), Coronary stents x4 ([id number]) (As per chart review) FHx: Denies Medications: Diltiazem, ASA, digoxin, enalapril, HCTZ, Lasix, ventolin, singulair, Prozac, crestor, Xanax, spironolactone, amiodarone Allergies: Apixaban, clopidogrel, enoxaparin, Morphine Social history: Former smoker; states the last time he snorted cocaine was ; denies heroine use; denies alcohol use Present on Admission - Present on Admission Any Indicators Present on Admission: No Review of Systems - Constitutional Constitutional: absent: Headache, Night Sweats, Weakness - EENT Eyes: absent: Blurred Vision - Cardiovascular Cardiovascular: Chest Pain, Dyspnea. absent: Palpitations, Pedal Edema - Respiratory Respiratory: Dyspnea. absent: Cough, Hemoptysis - Gastrointestinal Gastrointestinal: absent: Constipation, Diarrhea, Nausea, Vomiting - Genitourinary Genitourinary: absent: Dysuria - Musculoskeletal Musculoskeletal: absent: Numbness, Tingling - Neurological Neurological: Numbness (chronic bilateral numbness on his fingers he states due to his diabetes ). absent: Tingling, Tremor, Weakness - Psychiatric Psychiatric: Anxiety - Endocrine Endocrine: absent: Fatigue, Palpitations Past Patient History - Infectious Disease Hx of Infectious Diseases: None - Tetanus Immunizations Tetanus Immunization: Up to Date - Past Medical History & Family History Past Medical History?: Yes - Past Social History Smoking Status: Former Smoker - CARDIAC Hx Atrial Fibrillation: Yes Hx Cardia Arrhythmia: Yes Hx Congestive Heart Failure: Yes Hx Hypercholesterolemia: Yes Hx Hypertension: Yes Hx Peripheral Edema: Yes - PULMONARY Hx Asthma: Yes Hx Chronic Obstructive Pulmonary Disease (COPD): Yes Hx Pneumonia: Yes Hx Sleep Apnea: Yes - NEUROLOGICAL Hx Neurological Disorder: No - HEENT Hx HEENT Problems: No - RENAL Hx Chronic Kidney Disease: No - ENDOCRINE/METABOLIC Hx Endocrine Disorders: No - HEMATOLOGICAL/ONCOLOGICAL Hx Blood Disorders: Yes Hx Blood Transfusions: Yes Other/Comment: MRSA Hx - INTEGUMENTARY Hx Dermatological Problems: Yes Hx Cellulitis: Yes - MUSCULOSKELETAL/RHEUMATOLOGICAL Hx Arthritis: Yes - GASTROINTESTINAL Hx Gastrointestinal Disorders: Yes Other/Comment: Splenic Hematoma - GENITOURINARY/GYNECOLOGICAL Hx Genitourinary Disorders: No - PSYCHIATRIC Hx Anxiety: Yes Hx Bipolar Disorder: Yes Hx Depression: Yes Hx Substance Use: Yes (per pt no longer using) - SURGICAL HISTORY Hx Appendectomy: Yes (2008) Hx Coronary Stent: Yes (2008 - 2012 4 stents) - ANESTHESIA Hx Anesthesia: Yes Hx Anesthesia Reactions: No Hx Malignant Hyperthermia: No Meds Allergies/Adverse Reactions: Allergies Allergy/AdvReac Type Severity Reaction Status Date / Time apixaban [From Eliquis] Allergy RASH Verified 10/23/17 18:37 clopidogrel bisulfate Allergy RASH Verified 10/23/17 18:37 [From Plavix] enoxaparin sodium Allergy RASH Verified 10/23/17 18:37 [From Lovenox] morphine Allergy RASH Verified 10/23/17 18:37 Physical Exam - Constitutional Appears: Older Than Stated Age, Agitated - Head Exam Head Exam: ATRAUMATIC, NORMAL INSPECTION - Eye Exam Eye Exam: EOMI, Normal appearance - ENT Exam ENT Exam: Mucous Membranes Moist - Respiratory Exam Respiratory Exam: Clear to Auscultation Bilateral, NORMAL BREATHING PATTERN. absent: Rales, Rhonchi, Wheezes, Stridor - Cardiovascular Exam Cardiovascular Exam: Tachycardia, REGULAR RHYTHM - GI/Abdominal Exam GI & Abdominal Exam: Normal Bowel Sounds, Soft. absent: Tenderness - Extremities Exam Extremities exam: Positive for: normal inspection. Negative for: pedal edema, tenderness - Neurological Exam Neurological exam: Alert, CN II-XII Intact, Oriented x3 - Psychiatric Exam Psychiatric exam: Normal Affect, Normal Mood - Skin Skin Exam: Dry, Intact, Normal Color, Warm Results - Vital Signs Recent Vital Signs: Last Vital Signs Temp 97.9 F 10/23/17 18:33 Pulse 92 H 10/23/17 18:33 Resp 26 H 10/23/17 18:45 BP 165/122 H 10/23/17 18:33 Pulse Ox 98 10/23/17 20:53 - Labs Result Diagrams: 10/23/17 20:07 10/23/17 20:07 Labs: Laboratory Results - last 24 hr 10/23/17 10/23/17 10/23/17 19:00 19:00 20:07 WBC 11.6 H RBC 5.75 Hgb 14.7 D Hct 46.3 MCV 80.6 MCH 25.6 L MCHC 31.8 L RDW 22.1 H Plt Count 437 H D MPV 7.4 Neut % (Auto) 70.5 Lymph % (Auto) 19.1 L [place] % (Auto) 6.8 Eos % (Auto) 2.4 Baso % (Auto) 1.2 Neut # 8.2 H Lymph # 2.2 [place] # 0.8 Eos # 0.3 Baso # 0.1 PT INR APTT D-Dimer, Quantitative Sodium Potassium Chloride Carbon Dioxide Anion Gap BUN Creatinine Est GFR ( Amer) Est GFR (Non-Af Amer) Random Glucose Calcium Total Bilirubin AST ALT Alkaline Phosphatase Troponin I NT-Pro-B Natriuret Pep Total Protein Albumin Globulin Albumin/Globulin Ratio Urine Color Yellow Urine Clarity Clear Urine pH 5.0 Ur Specific [place] 1.026 Urine Protein 2+ H Urine Glucose (UA) Normal Urine Ketones Negative Urine Blood Negative Urine Nitrate Negative Urine Bilirubin Negative Urine Urobilinogen Normal Ur Leukocyte Esterase Neg Urine WBC (Auto) 8 H Urine RBC (Auto) 3 Hyaline Casts 0-2 Digoxin Urine Opiates Screen Negative Urine Methadone Screen Negative Ur Barbiturates Screen Negative Ur Phencyclidine Scrn Negative Ur Amphetamines Screen Negative U Benzodiazepines Scrn Positive U Oth Cocaine Metabols Positive H U Cannabinoids Screen Negative 10/23/17 10/23/17 10/23/17 20:07 20:07 20:07 WBC RBC Hgb Hct MCV MCH MCHC RDW Plt Count MPV Neut % (Auto) Lymph % (Auto) [place] % (Auto) Eos % (Auto) Baso % (Auto) Neut # Lymph # [place] # Eos # Baso # PT 12.8 H INR 1.1 APTT 36 H D-Dimer, Quantitative 451 H Sodium 134 Potassium 5.1 Chloride 101 Carbon Dioxide 22 Anion Gap 16 BUN 26 H Creatinine 1.0 Est GFR ( Amer) > 60 Est GFR (Non-Af Amer) > 60 Random Glucose 90 Calcium 8.7 Total Bilirubin 0.9 AST 40 ALT 33 Alkaline Phosphatase 85 Troponin I 0.0550 NT-Pro-B Natriuret Pep 30210 H Total Protein 9.3 H Albumin 4.4 Globulin 4.9 H Albumin/Globulin Ratio 0.9 L Urine Color Urine Clarity Urine pH Ur Specific [place] Urine Protein Urine Glucose (UA) Urine Ketones Urine Blood Urine Nitrate Urine Bilirubin Urine Urobilinogen Ur Leukocyte Esterase Urine WBC (Auto) Urine RBC (Auto) Hyaline Casts Digoxin 0.8 Urine Opiates Screen Urine Methadone Screen Ur Barbiturates Screen Ur Phencyclidine Scrn Ur Amphetamines Screen U Benzodiazepines Scrn U Oth Cocaine Metabols U Cannabinoids Screen 10/23/17 20:07 WBC RBC Hgb Hct MCV MCH MCHC RDW Plt Count MPV Neut % (Auto) Lymph % (Auto) [place] % (Auto) Eos % (Auto) Baso % (Auto) Neut # Lymph # [place] # Eos # Baso # PT INR APTT D-Dimer, Quantitative Sodium Potassium Chloride Carbon Dioxide Anion Gap BUN Creatinine Est GFR ( Amer) Est GFR (Non-Af Amer) Random Glucose Calcium Total Bilirubin AST ALT Alkaline Phosphatase Troponin I 0.0540 NT-Pro-B Natriuret Pep Total Protein Albumin Globulin Albumin/Globulin Ratio Urine Color Urine Clarity Urine pH Ur Specific [place] Urine Protein Urine Glucose (UA) Urine Ketones Urine Blood Urine Nitrate Urine Bilirubin Urine Urobilinogen Ur Leukocyte Esterase Urine WBC (Auto) Urine RBC (Auto) Hyaline Casts Digoxin Urine Opiates Screen Urine Methadone Screen Ur Barbiturates Screen Ur Phencyclidine Scrn Ur Amphetamines Screen U Benzodiazepines Scrn U Oth Cocaine Metabols U Cannabinoids Screen Assessment & Plan - Assessment and Plan (Free Text) Assessment: Chest Pain - chronic - secondary to History of afib/anxiety/cocaine use Admit to telemetry JOSE: 0.0540 EKG: no acute St/T wave change; irregular/tachycardia Continue home medications: * Digoxin 0.125mg PO daily * Coreg 12.5mg PO BID * ASA 325mg CHADS score of 2 points (Positives: CHF, HTN) Systolic CHF exacerbation BNP 60629 (previous admission 11,500) f/u CXR (10/23/17) ECHO (02/2017): LV systolic function severely reduced. LV mildly dilated. Severe global hypokinesis of LV. Negative for endocarditis. Lasix 40mg IV BID Continue home medications: * Enalapril 10mg PO Daily * Aldactone 25mg PO daily Daily weights, I/Os Hypertension Lasix 40mg IV BID Continue home medications: * Enalapril 10mg PO daily * Aldactone 25mg PO daily Monitor History of coronary artery disease Continue home medications: * Aspirin 325mg PO daily * Crestor 5mg PO HS History of COPD Continue home medications: * Ventolin 2 puff IH BID * Singulair 10 mg PO HS History Anxiety and depression * Prozac 20mg po daily * Ativan 1mg TID History of Chronic Back Pain secondary to Lumbar Spine DJD Continue home meds: * Percocet 2 tabs PO q6h prn * Gabapentin 300 mg PO QAM, 600mg QPM History of Cocaine use Urine drug screen + Cocaine Metabolites -No BB Tobacco abuse Nicotine patch TD daily Counseled on tobacco use cessation Prophylactic measure SCDs Protonix 40mg PO daily Regular diet
[2017-10-23] MEDS: HYDROmorphone 1 mg/ml ISec IVP PRN (23:08)
[2017-10-24] MEDS: Oxycodone/Acetaminophen 5/325 mg Tab PO PRN ×3 (00:34→19:11)
[2017-10-24] MEDS ORDERED: HYDROmorphone 0.5 mg/0.5 ml ISec IVP ONE (04:15)
[2017-10-24] MEDS: HYDROmorphone 1 mg/ml ISec IVP PRN ×3 (08:23→22:31)
[2017-10-24 10:28] LABS: TROPONIN I 0.042 ng/mL (0.00-0.120)
--- NOTE | 2017-10-24 10:29 | RAD ---
HISTORY: SOB COMPARISON: No prior. TECHNIQUE: Chest PA and lateral FINDINGS: LUNGS: Interval slight progression pulmonary edema/CHF PLEURA: No significant pleural effusion identified. No pneumothorax apparent. CARDIOVASCULAR: Cardiomegaly OSSEOUS STRUCTURES: No significant abnormalities. VISUALIZED UPPER ABDOMEN: Normal. OTHER FINDINGS: None. IMPRESSION: Interval slight progression pulmonary edema/CHF
--- NOTE | 2017-10-24 11:15 | CP.PCM.PN ---
Subjective - Date & Time of Evaluation Date of Evaluation: 10/24/17 Time of Evaluation: 11:15 - Subjective Subjective: PGY2 Note for Dr. Ocampo patient seen and examined at bedside; patient is extremely noncompliant with medication/drug use/lifestyle modification. He is short of breath at baseline, cannot lie flat, is morbidly obese. Denies current [place], CP, abdominal pain, N/'V/ D, dysuria/freq/urg or lower extremity pain. Objective - Vital Signs/Intake and Output Vital Signs (last 24 hours): Temp Pulse Resp BP Pulse Ox 97.9 F 77 20 125/77 98 10/24/17 08:19 10/24/17 08:29 10/24/17 08:19 10/24/17 09:29 10/24/17 08:19 Intake and Output: 10/24/17 10/24/17 06:59 18:59 Output Total 3200 Balance -3200 - Medications Medications: Current Medications Albuterol (Ventolin Hfa 90 Mcg/Actuation (8 G)) 2 puff INH BID PRN PRN Reason: Shortness of Breath Aspirin (Aspirin Chewable) 81 mg PO DAILY [facility] Last Admin: 10/24/17 09:29 Dose: 81 mg Carvedilol (Coreg) 12.5 mg PO BID [facility] Last Admin: 10/24/17 09:29 Dose: 12.5 mg Digoxin (Lanoxin) 0.125 mg PO DAILY@1800 [facility] Diphenhydramine HCl (Benadryl) 25 mg PO Q6 PRN PRN Reason: Itching / Pruritus Last Admin: 10/24/17 09:29 Dose: 25 mg Enalapril Maleate (Vasotec) 10 mg PO DAILY [facility] Last Admin: 10/24/17 09:29 Dose: 10 mg Fluoxetine HCl (Prozac) 20 mg PO DAILY [facility] Last Admin: 10/24/17 09:28 Dose: 20 mg Furosemide (Lasix) 40 mg PO BID [facility] Last Admin: 10/24/17 09:29 Dose: 40 mg Gabapentin (Neurontin) 300 mg PO QAM [facility] Last Admin: 10/24/17 09:29 Dose: 300 mg Gabapentin (Neurontin) 600 mg PO QPM [facility] Hydromorphone HCl (Dilaudid) 1 mg IVP Q8H PRN PRN Reason: Pain, moderate (4-7) Last Admin: 10/24/17 08:23 Dose: 1 mg Diltiazem HCl 125 mg/ Sodium (Chloride) 125 mls @ 5 mls/hr IV .Q24H JEIMY PRN Reason: 5 MG/HR Last Admin: 10/23/17 20:00 Dose: 5 mls/hr Lorazepam (Ativan) 1 mg IVP Q4H PRN PRN Reason: Anxiety Last Admin: 10/24/17 06:43 Dose: 1 mg Montelukast Sodium (Singulair) 10 mg PO HS [facility] Last Admin: 10/23/17 21:48 Dose: 10 mg Nicotine (Nicoderm Cq) 1 patch TD DAILY [facility] Last Admin: 10/24/17 09:28 Dose: 1 patch Ondansetron HCl (Zofran Inj) 4 mg IVP Q8H PRN PRN Reason: Nausea/Vomiting Last Admin: 10/24/17 08:23 Dose: 4 mg Oxycodone/Acetaminophen (Percocet 5/325 Mg Tab) 2 tab PO Q6H PRN PRN Reason: Pain, Mild (1-3) Stop: 10/26/17 21:13 Last Admin: 10/24/17 09:29 Dose: 2 tab Pantoprazole Sodium (Protonix Inj) 40 mg IVP DAILY [facility] Last Admin: 10/24/17 09:28 Dose: 40 mg Rosuvastatin Calcium (Crestor) 5 mg PO [facility] Last Admin: 10/23/17 21:47 Dose: 5 mg Spironolactone (Aldactone) 25 mg PO DAILY [facility] Last Admin: 10/24/17 09:28 Dose: 25 mg - Labs Labs: 10/23/17 20:07 10/23/17 20:07 PT 12.8 SECONDS (9.7-12.2) H 10/23/17 20:07 INR 1.1 10/23/17 20:07 APTT 36 SECONDS (21-34) H 10/23/17 20:07 - Constitutional Appears: Non-toxic, Chronically Ill - Head Exam Head Exam: ATRAUMATIC - Eye Exam Eye Exam: EOMI - ENT Exam ENT Exam: Mucous Membranes Moist - Neck Exam Neck Exam: Full ROM. absent: Lymphadenopathy - Respiratory Exam Respiratory Exam: absent: Clear to Ausculation Bilateral Additional comments: crackles b/l bases - Cardiovascular Exam Cardiovascular Exam: REGULAR RHYTHM, JVD, +S1, +S2 - GI/Abdominal Exam GI & Abdominal Exam: Soft, Normal Bowel Sounds (extremely obese abdomen) - Extremities Exam Extremities Exam: Full ROM. absent: Calf Tenderness - Back Exam Back Exam: NORMAL INSPECTION. absent: CVA tenderness (L), CVA tenderness (R) - Neurological Exam Neurological Exam: Alert, Awake, CN II-XII Intact, Oriented x3 - Psychiatric Exam Psychiatric exam: Normal Affect - Skin Skin Exam: Warm Assessment and Plan - Assessment and Plan (Free Text) Assessment: Chest Pain - chronic - secondary to History of afib/anxiety/cocaine use; EF on last echo was so low they did not even comment number Admit to telemetry JOSE: 0.0540; stable 3; most likely increased 2/2 to severe cardiomyopathy and severe decompensated CHF EKG: no acute St/T wave change; irregular/tachycardia Continue home medications: * Digoxin 0.125mg PO daily * Coreg 12.5mg PO BID * ASA 325mg CHADS score of 2 points (Positives: CHF, HTN); however patient not on anticoagulation 2/2 to noncompliance Cardiology Consult; Dr. Morgan; appreciate risk -patient would benefit from life vest at this time 2/2 to medication tx failure and eventually pacemaker placement however the patient does not listen to what doctors tell him and would like to steer the course of his own treatment as he sees fit Systolic CHF exacerbation; acute on chronic BNP 97832 (previous admission 11,500) f/u CXR (10/23/17) ECHO (02/2017): LV systolic function severely reduced. LV mildly dilated. Severe global hypokinesis of LV. Negative for endocarditis. Lasix 40mg IV BID Continue home medications: * Enalapril 10mg PO Daily * Aldactone 25mg PO daily Daily weights, I/Os patient would benefit from defibrillator and Entresto however patient cannot afford the medication and does not want to take any new medications Hypertension;chronic Lasix 40mg IV BID Continue home medications: * Enalapril 10mg PO daily * Aldactone 25mg PO daily History of coronary artery disease Continue home medications: * Aspirin 325mg PO daily * Crestor 5mg PO HS History of COPD Continue home medications: * Ventolin 2 puff IH BID * Singulair 10 mg PO HS Patient stopped smoking 9 months ago; still undergoing smoking cessation therapy with nicotine patch History Anxiety and depression * Prozac 20mg po daily * Ativan 1mg TID History of Chronic Back Pain secondary to Lumbar Spine DJD Continue home meds: * Percocet 2 tabs PO q6h prn * Gabapentin 300 mg PO QAM, 600mg QPM History of Cocaine use Urine drug screen + Cocaine Metabolites -No BB Patient denies current use Tobacco abuse Nicotine patch TD daily Counseled on tobacco use cessation Prophylactic measure SCDs Protonix 40mg PO daily Regular diet patient is noncompliant and argumentative and requests exorbitant amounts of opiates
[2017-10-24] MEDS: Digoxin 125 mcg (0.125 mg) Tab PO SCH (17:54)
[2017-10-25] MEDS: Oxycodone/Acetaminophen 5/325 mg Tab PO PRN ×2 (11:11→17:21)
--- NOTE | 2017-10-25 13:14 | CP.PCM.PN ---
Subjective - Date & Time of Evaluation Date of Evaluation: 10/25/17 Time of Evaluation: 13:13 - Subjective Subjective: PGY2 Note for Dr. Ocampo patient seen and examined at bedside this AM; denies any symptoms; seems entirely preoccupied with his pain medications, how they are pushed and timing of them. Has no other concerns for his health other than eating and his "back pain". Denies all other symptoms. Objective - Vital Signs/Intake and Output Vital Signs (last 24 hours): Temp Pulse Resp BP Pulse Ox 98.2 F 66 20 138/77 96 10/24/17 23:15 10/25/17 11:37 10/24/17 23:15 10/25/17 10:11 10/24/17 23:15 Intake and Output: 10/25/17 10/25/17 06:59 18:59 Intake Total 730 Output Total 700 Balance 30 - Medications Medications: Current Medications Acetaminophen (Tylenol 325mg Tab) 650 mg PO Q6 PRN PRN Reason: Fever >100.4 F Albuterol (Ventolin Hfa 90 Mcg/Actuation (8 G)) 2 puff INH BID PRN PRN Reason: Shortness of Breath Aspirin (Aspirin Chewable) 81 mg PO DAILY [facility] Last Admin: 10/25/17 09:12 Dose: 81 mg Carvedilol (Coreg) 12.5 mg PO BID [facility] Last Admin: 10/25/17 10:11 Dose: 12.5 mg Digoxin (Lanoxin) 0.125 mg PO DAILY@1800 [facility] Last Admin: 10/24/17 17:54 Dose: 0.125 mg Diphenhydramine HCl (Benadryl) 25 mg PO Q6 PRN PRN Reason: Itching / Pruritus Last Admin: 10/25/17 11:11 Dose: 25 mg Enalapril Maleate (Vasotec) 10 mg PO DAILY [facility] Last Admin: 10/25/17 09:25 Dose: 10 mg Fluoxetine HCl (Prozac) 20 mg PO DAILY [facility] Last Admin: 10/25/17 09:12 Dose: 20 mg Furosemide (Lasix) 40 mg PO BID [facility] Last Admin: 10/25/17 09:24 Dose: 40 mg Gabapentin (Neurontin) 300 mg PO QAM [facility] Last Admin: 10/25/17 09:24 Dose: 300 mg Gabapentin (Neurontin) 600 mg PO QPM [facility] Last Admin: 10/24/17 17:50 Dose: 600 mg Hydromorphone HCl (Dilaudid) 1 mg IVP Q6H PRN PRN Reason: Pain, moderate (4-7) Last Admin: 10/24/17 22:31 Dose: 1 mg Lorazepam (Ativan) 1 mg IVP Q4H PRN PRN Reason: Anxiety Last Admin: 10/25/17 09:14 Dose: 1 mg Montelukast Sodium (Singulair) 10 mg PO HS [facility] Last Admin: 10/24/17 22:30 Dose: 10 mg Nicotine (Nicoderm Cq) 1 patch TD DAILY [facility] Last Admin: 10/25/17 09:12 Dose: 1 patch Ondansetron HCl (Zofran Inj) 4 mg IVP Q6H PRN PRN Reason: Nausea/Vomiting Last Admin: 10/24/17 22:30 Dose: 4 mg Oxycodone/Acetaminophen (Percocet 5/325 Mg Tab) 2 tab PO Q6H PRN PRN Reason: Pain, Mild (1-3) Stop: 10/26/17 21:13 Last Admin: 10/25/17 11:11 Dose: 2 tab Pantoprazole Sodium (Protonix Inj) 40 mg IVP DAILY [facility] Last Admin: 10/25/17 09:12 Dose: 40 mg Rosuvastatin Calcium (Crestor) 5 mg PO [facility] Last Admin: 10/24/17 22:30 Dose: 5 mg Spironolactone (Aldactone) 25 mg PO DAILY [facility] Last Admin: 10/25/17 09:13 Dose: 25 mg - Labs Labs: 10/23/17 20:07 10/23/17 20:07 PT 12.8 SECONDS (9.7-12.2) H 10/23/17 20:07 INR 1.1 10/23/17 20:07 APTT 36 SECONDS (21-34) H 10/23/17 20:07 - Constitutional Appears: Non-toxic - Head Exam Head Exam: ATRAUMATIC - Eye Exam Eye Exam: EOMI - ENT Exam ENT Exam: Mucous Membranes Moist - Neck Exam Neck Exam: Full ROM. absent: Lymphadenopathy - Respiratory Exam Respiratory Exam: Clear to Ausculation Bilateral - Cardiovascular Exam Cardiovascular Exam: REGULAR RHYTHM - GI/Abdominal Exam GI & Abdominal Exam: Soft, Normal Bowel Sounds - Extremities Exam Extremities Exam: Full ROM. absent: Calf Tenderness - Back Exam Back Exam: absent: CVA tenderness (L), CVA tenderness (R) - Neurological Exam Neurological Exam: Alert, Awake, Normal Gait, Oriented x3 - Skin Skin Exam: Warm Assessment and Plan - Assessment and Plan (Free Text) Assessment: Chest Pain - chronic - secondary to History of afib/anxiety/cocaine use; EF on last echo was so low they did not even comment number Admit to telemetry JOSE: 0.0540; stable 3; most likely increased 2/2 to severe cardiomyopathy and severe decompensated CHF EKG: no acute St/T wave change; irregular/tachycardia Continue home medications: * Digoxin 0.125mg PO daily * Coreg 12.5mg PO BID * ASA 325mg CHADS score of 2 points (Positives: CHF, HTN); however patient not on anticoagulation 2/2 to noncompliance Cardiology Consult; Dr. Morgan; appreciate risk -patient would benefit from life vest at this time 2/2 to medication tx failure and eventually pacemaker placement however the patient does not listen to what doctors tell him and would like to steer the course of his own treatment as he sees fit Systolic CHF exacerbation; acute on chronic BNP 03304 (previous admission 11,500) f/u CXR (10/23/17) ECHO (02/2017): LV systolic function severely reduced. LV mildly dilated. Severe global hypokinesis of LV. Negative for endocarditis. Lasix 40mg IV BID Continue home medications: * Enalapril 10mg PO Daily * Aldactone 25mg PO daily Daily weights, I/Os patient would benefit from defibrillator and Entresto however patient cannot afford the medication and does not want to take any new medications Hypertension;chronic Lasix 40mg IV BID Continue home medications: * Enalapril 10mg PO daily * Aldactone 25mg PO daily History of coronary artery disease Continue home medications: * Aspirin 325mg PO daily * Crestor 5mg PO HS History of COPD Continue home medications: * Ventolin 2 puff IH BID * Singulair 10 mg PO HS Patient stopped smoking 9 months ago; still undergoing smoking cessation therapy with nicotine patch History Anxiety and depression * Prozac 20mg po daily * Ativan 1mg TID History of Chronic Back Pain secondary to Lumbar Spine DJD Continue home meds: * Percocet 2 tabs PO q6h prn * Gabapentin 300 mg PO QAM, 600mg QPM History of Cocaine use Urine drug screen + Cocaine Metabolites -No BB Patient denies current use Tobacco abuse Nicotine patch TD daily Counseled on tobacco use cessation Prophylactic measure SCDs Protonix 40mg PO daily Regular diet patient is noncompliant and argumentative and requests exorbitant amounts of opiates The patient is extremely rude to staff; often yelling at nursing staff when they do not push medications at the time he wishes or at the speed that he sees is fit; patient will frequently run to nursing station even though he has "intractable" back pain in order to tell you the dosing/timing of his pain medications. he exhibits extreme drug seeking behavior, and is drug seeking.
--- NOTE | 2017-10-25 14:03 | CP.PCM.CON ---
History of Present Illness - History of Present Illness History of Present Illness: I was asked to evalaute patient by Dr Ocampo. Patient is a 47 year old male with PMH HTN, obesity, afib CAD, chronic systrolic dysfunction who presents chest pain. He has a long history of noncompliance, and has refused AICD. He is not currently on anticoagulation due to refusal. He had a prevous splenic infarct. The patient states he developed chest pain at rest. Symptoms persisted and therefore he presented to [facility]. The patient was found to be in afib with RVR. His symptoms improved with cardizem. Review of Systems - Constitutional Constitutional: absent: As Per HPI, Anorexia, Chills, Daytime Sleepiness, Excessive Sweating, Fatigue, Fever, Frequent Falls, Headache, Increased Appetite , Lethargy, Malaise, Night Sweats, Snoring, Sleep Apnea, Weight Gain, Weight Loss, Weakness, Other - EENT Eyes: absent: As Per HPI, Blind Spots, Blurred Vision, Change in Vision, Decreased Night Vision, Diplopia, Discharge, Dry Eye, Exophthalmos, Floaters, Irritation, Itchy Eyes, Loss of Peripheral Vision, Pain, Photophobia, Requires Corrective Lenses, Sees Flashes, Spots in Vision, Tunnel Vision, Other Visual Disturbances, Loss of Vision, Other Ears: absent: As Per HPI, Decreased Hearing, Ear Discharge, Ear Pain, Tinnitus, Abnormal Hearing, Disequilibrium, Dizziness, Other Nose/Mouth/Throat: absent: As Per HPI, Epistaxis, Nasal Congestion, Nasal Discharge, Nasal Obstruction, Nasal Trauma, Nose Pain, Post Nasal Drip, Sinus Pain, Sinus Pressure, Bleeding Gums, Change in Voice, Dental Pain, Dry Mouth, Dysphagia, Halitosis, Hoarsness, Lip Swelling, Mouth Lesions, Mouth Pain, Odynophagia, Sore Throat, Throat Swelling, Tongue Swelling, Facial Pain, Neck Pain, Neck Mass, Other - Cardiovascular Cardiovascular: Chest Pain - Respiratory Respiratory: absent: As Per HPI, Cough, Dyspnea, Hemoptysis, Dyspnea on Exertion , Wheezing, Snoring, Stridor, Pain on Inspiration, Chest Congestion, Excessive Mucous Production, Change in Mucous Color, Pain with Coughing, Other - Gastrointestinal Gastrointestinal: absent: As Per HPI, Abdominal Pain, Belching, Bloating, Change in Bowel Habits, Change in Stool Character, Coffee Ground Emesis, Constipation, Cramping, Diarrhea, Dyspepsia, Dysphagia, Early Satiety, Excessive Flatus, Fecal Incontinence, Heartburn, Hematemesis, Hematochezia, Loose Stools, Melena, Nausea, Odynophagia, Temesmus, Vomiting, Other - Genitourinary Genitourinary: absent: As Per HPI, Change in Urinary Stream, Difficulty Urinating, Dysuria, Flank Pain, Hematuria, Pyuria, Nocturia, Urinary Incontinence, Urinary Frequency, Urinary Hesitance, Urinary Urgency, Voiding Freq/Small Amts, Freq UTI, Hx Renal/Bladder Calculi, Hx /Renal Surgery, Bladder Distension, Other - Musculoskeletal Musculoskeletal: absent: As Per HPI, Abnormal Gait, Arthralgias, Atrophy, Back Pain, Deformity, Joint Swelling, Limited Range of Motion, Loss of Height, Muscle Cramps, Muscle Weakness, Myalgias, Neck Pain, Numbness, Radiating Pain into Limb, Stiffness, Tingling, Other - Integumentary Integumentary: absent: As Per HPI, Acne, Alopecia, Bleeding Lesions, Change in Hair, Change in Nails, Change in Pigmentation, Changing Lesions, Dry Skin, Erythema, Furuncle, Hirsutism, Lesions, New Lesions, Non-Healing Lesions, Photosensitivity, Pruritus, Rash, Skin Pain, Skin Ulcer, Sores, Striae, Swelling , Unusual Bruising, Wounds, Jaundice, Other - Neurological Neurological: absent: As Per HPI, Abnormal Gait, Abnormal Hearing, Abnormal Movements, Abnormal Speech, Behavioral Changes, Burning Sensations, Confusion, Convulsions, Disequilibrium, Dizziness, Numbness, Focal Weakness, Frequent Falls , Headaches, Lack of Coordination, Loss of Vision, Memory Loss, Paresthesias, Radicular Pain, Restless Legs, Sensory Deficit, Syncope, Tingling, Tremor, Vertigo, Weakness, Other Visual Disturbances, Other - Psychiatric Psychiatric: absent: As Per HPI, Abnormal Sleep Pattern, Anhedonia, Anxiety, Auditory Hallucinations, Behavioral Changes, Change in Appetite, Change in Libido, Confusion, Depression, Difficulty Concentrating, Hallucinations, Homicidal Ideation, Hopelessness, Irritability, Memory Loss, Mood Swings, Panic Attacks, Paranoia, Suicidal Ideation, Visual Hallucinations, Tactile Hallucinations, Other - Endocrine Endocrine: absent: As Per HPI, Change in Body Appearance, Change in Libido, Cold Intolorance, Deepening of Voice, Excessive Sweating, Fatigue, Flushing, Heat Intolorance, Increase in Ring/Shoe/Hat Size, Palpitations, Polydipsia, Polyphagia, Polyuria, Other - Hematologic/Lymphatic Hematologic: absent: As Per HPI, Easy Bleeding, Easy Bruising, Lymphadenopathy, Other Past Patient History - Infectious Disease Hx of Infectious Diseases: None - Tetanus Immunizations Tetanus Immunization: Up to Date - Past Medical History & Family History Past Medical History?: Yes - Past Social History Smoking Status: Former Smoker - CARDIAC Hx Atrial Fibrillation: Yes Hx Cardia Arrhythmia: Yes Hx Congestive Heart Failure: Yes Hx Hypercholesterolemia: Yes Hx Hypertension: Yes Hx Peripheral Edema: Yes - PULMONARY Hx Asthma: Yes Hx Chronic Obstructive Pulmonary Disease (COPD): Yes Hx Pneumonia: Yes Hx Sleep Apnea: Yes - NEUROLOGICAL Hx Neurological Disorder: No - HEENT Hx HEENT Problems: No - RENAL Hx Chronic Kidney Disease: No - ENDOCRINE/METABOLIC Hx Endocrine Disorders: No - HEMATOLOGICAL/ONCOLOGICAL Hx Blood Disorders: Yes Hx Blood Transfusions: Yes Other/Comment: MRSA Hx - INTEGUMENTARY Hx Dermatological Problems: Yes Hx Cellulitis: Yes - MUSCULOSKELETAL/RHEUMATOLOGICAL Hx Falls: Yes - GASTROINTESTINAL Hx Gastrointestinal Disorders: Yes Other/Comment: Splenic Hematoma - GENITOURINARY/GYNECOLOGICAL Hx Genitourinary Disorders: No - PSYCHIATRIC Hx Substance Use: No (USED TO) - SURGICAL HISTORY Hx Appendectomy: Yes (2008) Hx Coronary Stent: Yes (2008 - 2012 4 stents) - ANESTHESIA Hx Anesthesia: Yes Hx Anesthesia Reactions: No Hx Malignant Hyperthermia: No Meds Allergies/Adverse Reactions: Allergies Allergy/AdvReac Type Severity Reaction Status Date / Time apixaban [From Eliquis] Allergy RASH Verified 10/23/17 18:37 clopidogrel bisulfate Allergy RASH Verified 10/23/17 18:37 [From Plavix] enoxaparin sodium Allergy RASH Verified 10/23/17 18:37 [From Lovenox] morphine Allergy RASH Verified 10/23/17 18:37 - Medications Medications: Current Medications Acetaminophen (Tylenol 325mg Tab) 650 mg PO Q6 PRN PRN Reason: Fever >100.4 F Albuterol (Ventolin Hfa 90 Mcg/Actuation (8 G)) 2 puff INH BID PRN PRN Reason: Shortness of Breath Aspirin (Aspirin Chewable) 81 mg PO DAILY [facility] Last Admin: 10/25/17 09:12 Dose: 81 mg Carvedilol (Coreg) 12.5 mg PO BID [facility] Last Admin: 10/25/17 10:11 Dose: 12.5 mg Digoxin (Lanoxin) 0.125 mg PO DAILY@1800 [facility] Last Admin: 10/24/17 17:54 Dose: 0.125 mg Diphenhydramine HCl (Benadryl) 25 mg PO Q6 PRN PRN Reason: Itching / Pruritus Last Admin: 10/25/17 11:11 Dose: 25 mg Enalapril Maleate (Vasotec) 10 mg PO DAILY [facility] Last Admin: 10/25/17 09:25 Dose: 10 mg Fluoxetine HCl (Prozac) 20 mg PO DAILY [facility] Last Admin: 10/25/17 09:12 Dose: 20 mg Furosemide (Lasix) 40 mg PO BID [facility] Last Admin: 10/25/17 09:24 Dose: 40 mg Gabapentin (Neurontin) 300 mg PO QAM [facility] Last Admin: 10/25/17 09:24 Dose: 300 mg Gabapentin (Neurontin) 600 mg PO QPM [facility] Last Admin: 10/24/17 17:50 Dose: 600 mg Hydromorphone HCl (Dilaudid) 1 mg IVP Q6H PRN PRN Reason: Pain, moderate (4-7) Last Admin: 10/24/17 22:31 Dose: 1 mg Lorazepam (Ativan) 1 mg IVP Q4H PRN PRN Reason: Anxiety Last Admin: 10/25/17 09:14 Dose: 1 mg Montelukast Sodium (Singulair) 10 mg PO HS [facility] Last Admin: 10/24/17 22:30 Dose: 10 mg Nicotine (Nicoderm Cq) 1 patch TD DAILY [facility] Last Admin: 10/25/17 09:12 Dose: 1 patch Ondansetron HCl (Zofran Inj) 4 mg IVP Q6H PRN PRN Reason: Nausea/Vomiting Last Admin: 10/24/17 22:30 Dose: 4 mg Oxycodone/Acetaminophen (Percocet 5/325 Mg Tab) 2 tab PO Q6H PRN PRN Reason: Pain, Mild (1-3) Stop: 10/26/17 21:13 Last Admin: 10/25/17 11:11 Dose: 2 tab Pantoprazole Sodium (Protonix Inj) 40 mg IVP DAILY [facility] Last Admin: 10/25/17 09:12 Dose: 40 mg Rosuvastatin Calcium (Crestor) 5 mg PO HS [facility] Last Admin: 10/24/17 22:30 Dose: 5 mg Spironolactone (Aldactone) 25 mg PO DAILY [facility] Last Admin: 10/25/17 09:13 Dose: 25 mg Physical Exam - Constitutional Appears: Non-toxic - Head Exam Head Exam: NORMAL INSPECTION - Eye Exam Eye Exam: Normal appearance - ENT Exam ENT Exam: Mucous Membranes Moist - Neck Exam Neck exam: Positive for: Full Rom - Respiratory Exam Respiratory Exam: Decreased Breath Sounds - Cardiovascular Exam Cardiovascular Exam: Irregular Rhythm - GI/Abdominal Exam GI & Abdominal Exam: Normal Bowel Sounds - Rectal Exam Rectal Exam: Deferred - Extremities Exam Extremities exam: Positive for: pedal edema - Back Exam Back exam: NORMAL INSPECTION - Neurological Exam Neurological exam: Alert, Oriented x3 - Psychiatric Exam Psychiatric exam: Normal Affect - Skin Skin Exam: Normal Color Results - Vital Signs Recent Vital Signs: Last Vital Signs Temp 98.2 F 10/24/17 23:15 Pulse 66 10/25/17 11:37 Resp 20 10/24/17 23:15 BP 138/77 10/25/17 10:11 Pulse Ox 96 10/24/17 23:15 - Labs Result Diagrams: 10/23/17 20:07 10/23/17 20:07 - EKG Data EKG Interpreted by: Myself Assessment & Plan (1) Afib Assessment and Plan: Likley the cause of chest pain. recommend d/c cardizem. attemtp to titrate Coreg. Status: Chronic (2) Chest pain Assessment and Plan: as above. control atrial fibrillation. refuses anticaogulation Status: Resolved (3) CAD (coronary artery disease) Assessment and Plan: negative troponin Status: Chronic (4) Systolic CHF, acute on chronic Assessment and Plan: refuses AICD Status: Acute
[2017-10-25] MEDS: HYDROmorphone 1 mg/ml ISec IVP PRN ×2 (14:33→20:40)
[2017-10-25] MEDS: Digoxin 125 mcg (0.125 mg) Tab PO SCH (17:21)
[2017-10-26] MEDS: Oxycodone/Acetaminophen 5/325 mg Tab PO PRN ×4 (00:58→18:32)
[2017-10-26] MEDS: HYDROmorphone 1 mg/ml ISec IVP PRN ×4 (02:58→22:56)
--- NOTE | 2017-10-26 08:02 | CP.PCM.PN ---
Subjective - Date & Time of Evaluation Date of Evaluation: 10/26/17 Time of Evaluation: 07:50 - Subjective Subjective: patient states he has progressive lower extremity edema. Objective - Vital Signs/Intake and Output Vital Signs (last 24 hours): Temp Pulse Resp BP Pulse Ox 97.5 F L 69 18 115/77 95 10/25/17 15:49 10/26/17 04:00 10/25/17 15:49 10/26/17 02:59 10/25/17 15:49 Intake and Output: 10/26/17 10/26/17 06:59 18:59 Intake Total 800 Output Total 600 Balance 200 - Medications Medications: Current Medications Acetaminophen (Tylenol 325mg Tab) 650 mg PO Q6 PRN PRN Reason: Fever >100.4 F Albuterol (Ventolin Hfa 90 Mcg/Actuation (8 G)) 2 puff INH BID PRN PRN Reason: Shortness of Breath Aspirin (Aspirin Chewable) 81 mg PO DAILY [facility] Last Admin: 10/25/17 09:12 Dose: 81 mg Carvedilol (Coreg) 12.5 mg PO BID [facility] Last Admin: 10/25/17 17:21 Dose: 12.5 mg Digoxin (Lanoxin) 0.125 mg PO DAILY@1800 [facility] Last Admin: 10/25/17 17:21 Dose: 0.125 mg Diphenhydramine HCl (Benadryl) 25 mg PO Q6 PRN PRN Reason: Itching / Pruritus Last Admin: 10/26/17 07:08 Dose: 25 mg Enalapril Maleate (Vasotec) 10 mg PO DAILY [facility] Last Admin: 10/25/17 09:25 Dose: 10 mg Fluoxetine HCl (Prozac) 20 mg PO DAILY [facility] Last Admin: 10/25/17 09:12 Dose: 20 mg Gabapentin (Neurontin) 300 mg PO QAM [facility] Last Admin: 10/25/17 09:24 Dose: 300 mg Gabapentin (Neurontin) 600 mg PO QPM [facility] Last Admin: 10/25/17 17:21 Dose: 600 mg Hydromorphone HCl (Dilaudid) 1 mg IVP Q6H PRN PRN Reason: Pain, moderate (4-7) Last Admin: 10/26/17 02:58 Dose: 1 mg Lorazepam (Ativan) 1 mg IVP Q4H PRN PRN Reason: Anxiety Last Admin: 10/25/17 09:14 Dose: 1 mg Montelukast Sodium (Singulair) 10 mg PO HS [facility] Last Admin: 10/25/17 21:41 Dose: 10 mg Nicotine (Nicoderm Cq) 1 patch TD DAILY [facility] Last Admin: 10/25/17 09:12 Dose: 1 patch Ondansetron HCl (Zofran Inj) 4 mg IVP Q6H PRN PRN Reason: Nausea/Vomiting Last Admin: 10/26/17 02:58 Dose: 4 mg Oxycodone/Acetaminophen (Percocet 5/325 Mg Tab) 2 tab PO Q6H PRN PRN Reason: Pain, Mild (1-3) Stop: 10/26/17 21:13 Last Admin: 10/26/17 07:09 Dose: 2 tab Pantoprazole Sodium (Protonix Inj) 40 mg IVP DAILY [facility] Last Admin: 10/25/17 09:12 Dose: 40 mg Rosuvastatin Calcium (Crestor) 5 mg PO HS [facility] Last Admin: 10/25/17 21:41 Dose: 5 mg Spironolactone (Aldactone) 25 mg PO DAILY [facility] Last Admin: 10/25/17 09:13 Dose: 25 mg - Labs Labs: 10/23/17 20:07 10/23/17 20:07 PT 12.8 SECONDS (9.7-12.2) H 10/23/17 20:07 INR 1.1 10/23/17 20:07 APTT 36 SECONDS (21-34) H 10/23/17 20:07 - Constitutional Appears: Non-toxic - Head Exam Head Exam: NORMAL INSPECTION - Eye Exam Eye Exam: Normal appearance - ENT Exam ENT Exam: Mucous Membranes Moist - Neck Exam Neck Exam: Full ROM - Respiratory Exam Respiratory Exam: Decreased Breath Sounds - Cardiovascular Exam Cardiovascular Exam: Irregular Rhythm - GI/Abdominal Exam GI & Abdominal Exam: Normal Bowel Sounds - Rectal Exam Rectal Exam: Deferred - Extremities Exam Extremities Exam: Pedal Edema - Back Exam Back Exam: NORMAL INSPECTION - Neurological Exam Neurological Exam: Alert - Psychiatric Exam Psychiatric exam: Normal Affect - Skin Skin Exam: Normal Color Assessment and Plan (1) Afib Assessment & Plan: rate controlled. maintain Coreg. Status: Chronic (2) CAD (coronary artery disease) Assessment & Plan: no current angina. medical therapy Status: Chronic (3) Systolic CHF, acute on chronic Assessment & Plan: will increase oral lasix Status: Acute
--- NOTE | 2017-10-26 09:02 | CARD ---
APPROVED REPORT EKG Measurement Heart [id number] <Conclusion> Atrial fibrillation with rapid ventricular response Pulmonary disease pattern Left anterior fascicular block Inferior infarct, age undetermined ST & T wave abnormality, consider anterolateral ischemia Abnormal ECG
[2017-10-26 10:51] VITALS: RESP 20
--- NOTE | 2017-10-26 15:17 | PCM.HF ---
Heart Failure Core Measure - Heart Failure Ejection Fraction: Less Than 40 % SHONDA Inhibitor Prescribed: Yes Beta-Yonis Prescribed: None Contraindication/Reason for not providing: ACTIVE COCAINE USER Angiotensin II Receptor Yonis Prescribed: No Contraindication/Reason for not providing: SHONDA AnticoagulationTherapy for Atrial Fibrillation/Atrialflutter: No Contraindication/Reason for not providing: HX OF SPLEEN ABCESS Aldosterone Antagonist Prescribed: No Contraindication/Reason for not providing: ON DIG Hydralazine Nitrate Prescribed: No Contraindication/Reason for not providing: ON DIG Implantable Cardioverter Defibrillator Therapy: No Contraindication/Reason for not providing: PATIENT REFUSED Cardiac Resynchronization Therapy Prescribed: No Contraindication/Reason for not providing: PATIENT REFUSED - Follow up Will be discharged to: Home Follow Up Date (must be within 7 days from discharge): 11/02/17 Follow Up Time: 09:00
[2017-10-26 16:11] VITALS: O2SAT 96
--- NOTE | 2017-10-26 17:24 | CP.PCM.PN ---
Subjective - Date & Time of Evaluation Date of Evaluation: 10/26/17 Time of Evaluation: 07:20 - Subjective Subjective: Medicine note (PGY-1)---> Dr. Ocampo's service Patient was seen and examined at bedside. Patient states that he is doing well. Patient is tolerating diet and ambulating. Patient admits to mild headache, body aches and bilateral leg swelling, but denies chest pain, palpitations, SOB , abdominal pain, nausea and vomiting. Objective - Vital Signs/Intake and Output Vital Signs (last 24 hours): Temp Pulse Resp BP Pulse Ox 97.2 F L 79 20 138/78 96 10/26/17 16:00 10/26/17 16:00 10/26/17 16:00 10/26/17 16:00 10/26/17 16:00 Intake and Output: 10/26/17 10/26/17 06:59 18:59 Intake Total 800 Output Total 600 Balance 200 - Medications Medications: Current Medications Acetaminophen (Tylenol 325mg Tab) 650 mg PO Q6 PRN PRN Reason: Fever >100.4 F Albuterol (Ventolin Hfa 90 Mcg/Actuation (8 G)) 2 puff INH BID PRN PRN Reason: Shortness of Breath Aspirin (Aspirin Chewable) 81 mg PO DAILY [facility] Last Admin: 10/26/17 10:19 Dose: 81 mg Carvedilol (Coreg) 12.5 mg PO BID [facility] Last Admin: 10/26/17 10:26 Dose: 12.5 mg Digoxin (Lanoxin) 0.125 mg PO DAILY@1800 [facility] Last Admin: 10/25/17 17:21 Dose: 0.125 mg Diphenhydramine HCl (Benadryl) 25 mg PO Q6 PRN PRN Reason: Itching / Pruritus Last Admin: 10/26/17 13:12 Dose: 25 mg Enalapril Maleate (Vasotec) 10 mg PO DAILY [facility] Last Admin: 10/26/17 10:26 Dose: 10 mg Fluoxetine HCl (Prozac) 20 mg PO DAILY [facility] Last Admin: 10/26/17 10:19 Dose: 20 mg Furosemide (Lasix) 40 mg IVP BID [facility] Last Admin: 10/26/17 10:26 Dose: 40 mg Gabapentin (Neurontin) 300 mg PO QAM [facility] Last Admin: 10/26/17 10:28 Dose: 300 mg Gabapentin (Neurontin) 600 mg PO QPM [facility] Last Admin: 10/25/17 17:21 Dose: 600 mg Hydromorphone HCl (Dilaudid) 1 mg IVP Q6H PRN PRN Reason: Pain, moderate (4-7) Last Admin: 10/26/17 16:42 Dose: 1 mg Lorazepam (Ativan) 1 mg IVP Q4H PRN PRN Reason: Anxiety Last Admin: 10/25/17 09:14 Dose: 1 mg Montelukast Sodium (Singulair) 10 mg PO HS [facility] Last Admin: 10/25/17 21:41 Dose: 10 mg Nicotine (Nicoderm Cq) 1 patch TD DAILY [facility] Last Admin: 10/26/17 10:19 Dose: 1 patch Ondansetron HCl (Zofran Inj) 4 mg IVP Q6H PRN PRN Reason: Nausea/Vomiting Last Admin: 10/26/17 16:41 Dose: 4 mg Oxycodone/Acetaminophen (Percocet 5/325 Mg Tab) 2 tab PO Q6H PRN PRN Reason: Pain, Mild (1-3) Stop: 10/26/17 21:13 Last Admin: 10/26/17 13:10 Dose: 2 tab Pantoprazole Sodium (Protonix Inj) 40 mg IVP DAILY [facility] Last Admin: 10/26/17 10:19 Dose: 40 mg Rosuvastatin Calcium (Crestor) 5 mg PO [facility] Last Admin: 10/25/17 21:41 Dose: 5 mg Spironolactone (Aldactone) 25 mg PO DAILY [facility] Last Admin: 10/26/17 10:19 Dose: 25 mg - Labs Labs: 10/23/17 20:07 10/23/17 20:07 PT 12.8 SECONDS (9.7-12.2) H 10/23/17 20:07 INR 1.1 10/23/17 20:07 APTT 36 SECONDS (21-34) H 10/23/17 20:07 - Constitutional Appears: Well, No Acute Distress - Head Exam Head Exam: ATRAUMATIC - Eye Exam Eye Exam: EOMI - Respiratory Exam Respiratory Exam: Clear to Ausculation Bilateral, NORMAL BREATHING PATTERN - Cardiovascular Exam Cardiovascular Exam: Irregular Rhythm, +S1, +S2 - GI/Abdominal Exam GI & Abdominal Exam: Soft, Normal Bowel Sounds - Extremities Exam Extremities Exam: Pedal Edema - Neurological Exam Neurological Exam: Alert, Awake, Oriented x3 - Psychiatric Exam Psychiatric exam: Agitated - Skin Skin Exam: Normal Color Assessment and Plan (1) Chest pain Assessment & Plan: 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 Morgan on board---> Help appreciated * benefit from life vest at this time 2/2 to medication tx failure and eventually pacemaker placement however the patient does not listen to what doctors tell him and would like to steer the course of his own treatment as he sees fit ( As per previous progress notes) Secondary to hx of Atrial fibrillation and chronic cocaine use CHADS score of 2 points (Positives: CHF, HTN) * patient not on anticoagulation 2/2 to noncompliance JOSE: Negative X3 EKG: no acute St/T wave change; irregular/tachycardia Continue home medications: * Digoxin 0.125mg PO daily * Coreg 12.5mg PO BID * ASA 325mg Status: Acute (2) Acute CHF Assessment & Plan: BNP 10234 (10/23/17); (previous admission 11,500) Chest X-ray (10/23/17): Interval slight progression pulmonary edema/CHF ECHO (02/2017): LV systolic function severely reduced. LV mildly dilated. Severe global hypokinesis of LV. Negative for endocarditis. Lasix 40mg IV BID Continue home medications: * Vasotec 10mg PO Daily * Aldactone 25mg PO daily * Lasix 40mg IVP BID Daily weights, I/Os patient would benefit from defibrillator and Entresto however patient cannot afford the medication and does not want to take any new medications Status: Acute (3) History of hypertension Assessment & Plan: Continue home medications: * Enalapril 10mg PO daily * Aldactone 25mg PO daily Status: Chronic (4) History of coronary artery disease Assessment & Plan: Continue home medications: * Aspirin 325mg PO daily * Crestor 5mg PO HS Status: Acute (5) History of COPD Assessment & Plan: Continue home medications: * Ventolin 2 puff IH BID * Singulair 10 mg PO HS Patient stopped smoking 9 months ago; still undergoing smoking cessation therapy with nicotine patch Status: Acute (6) History of atrial fibrillation Assessment & Plan: Rate controlled: * Coreg 12.5mg PO daily * Digoxin 0.125mg PO daily Status: Acute (7) History of psychiatric disorder Assessment & Plan: Depression and anxiety Medications: * Prozac 20mg po daily * Ativan 1mg TID Status: Acute (8) History of chronic back pain Assessment & Plan: Continue home meds: * Percocet 2 tabs PO q6h prn, Dilaudid 1mg IVP Q6H PRN * Gabapentin 300 mg PO QAM, 600mg QPM Status: Acute (9) History of cocaine abuse Assessment & Plan: UDS on admission (+ for cocaine metabolites) Status: Acute (10) Tobacco use disorder Assessment & Plan: Nicotine patch TD daily Counseled on tobacco use cessation Status: Acute (11) Prophylactic measure Assessment & Plan: GI: Protonix 40mg IVP daily DVT: SCDs, ambulating Disposition: Patient was medically cleared today for discharge, patient refused and anticipating discharge at 8am tomorrow Status: Acute
[2017-10-26] MEDS: Digoxin 125 mcg (0.125 mg) Tab PO SCH (18:33)
[2017-10-26 18:34] VITALS: PULSE 75
[2017-10-26 18:58] LABS: BASO # 0.1 K/uL (0.0-0.2); BASO % 0.9 % (0.0-2.0); EOS # 0.3 K/uL (0.0-0.7); LYMPH # 1.7 K/uL (1.0-4.3); MEAN CELL VOLUME 81.6 fL (80.0-94.0); NRBC % 0.1 % (0.0-2.0); RED CELL DISTRIBUTION WIDTH 22.6 % (11.5-14.5)
[2017-10-26 19:19] LABS: BILIRUBIN,TOTAL 0.7 mg/dL (0.2-1.3); CALCIUM 8.4 mg/dl (8.6-10.4); PHOSPHOROUS 4.2 mg/dL (2.5-4.5); POTASSIUM 4.6 mmol/L (3.6-5.2); TOTAL PROTEIN 7.7 g/dL (6.3-8.3)
[2017-10-26 19:34] LABS: EOS % 2.4 % (0.0-4.0); HEMATOCRIT 40.9 % (35.0-51.0); LYMPH % 12.6 % (20.0-40.0); MEAN CORPUSCULAR HEMOGLOBIN 25.3 pg (27.0-31.0); MEAN PLATELET VOLUME 7.9 fL (7.2-11.7); MONO # 1.4 K/uL (0.0-0.8); MONO % 10.5 % (0.0-10.0); WHITE BLOOD COUNT 13.6 K/uL (4.8-10.8)
[2017-10-27] MEDS: Oxycodone/Acetaminophen 5/325 mg Tab PO PRN ×3 (00:42→13:13)
[2017-10-27] MEDS ORDERED: Benzocaine/Menthol (Cepacol) Lozenge MT ONE (01:52)
[2017-10-27] MEDS: HYDROmorphone 1 mg/ml ISec IVP PRN (04:58)
[2017-10-27 07:44] LABS: BASO # 0.1 K/uL (0.0-0.2); BASO % 0.6 % (0.0-2.0); EOS # 0.2 K/uL (0.0-0.7); EOS % 2.2 % (0.0-4.0); HEMATOCRIT 42.1 % (35.0-51.0); LYMPH # 1.8 K/uL (1.0-4.3); LYMPH % 15.6 % (20.0-40.0); MEAN CORPUSCULAR HEMOGLOBIN 25.6 pg (27.0-31.0); MEAN CORPUSCULAR HGB CONC 31.6 g/dL (33.0-37.0); MEAN PLATELET VOLUME 8.2 fL (7.2-11.7); MONO # 1.1 K/uL (0.0-0.8); MONO % 9.8 % (0.0-10.0); NRBC % 0.1 % (0.0-2.0); RED CELL DISTRIBUTION WIDTH 22.4 % (11.5-14.5); WHITE BLOOD COUNT 11.5 K/uL (4.8-10.8)
[2017-10-27 08:03] LABS: BILIRUBIN,TOTAL 0.8 mg/dL (0.2-1.3); CALCIUM 8.5 mg/dl (8.6-10.4); MAGNESIUM 1.9 mg/dL (1.6-2.3); PHOSPHOROUS 4.7 mg/dL (2.5-4.5); POTASSIUM 4.9 mmol/L (3.6-5.2)
[2017-10-27 08:50] VITALS: BP 115/75; TEMP 98.4
[2017-10-27 11:58] VITALS: PULSE 63
[2017-10-27] MEDS ORDERED: HYDROmorphone 0.5 mg/0.5 ml ISec IVP ONE (14:00)
--- NOTE | 2017-10-27 17:48 | CP.PCM.DIS ---
Provider - Provider Date of Admission: 10/23/17 20:53 Attending physician: Roque Ocampo Jr, MD Time Spent in preparation of Discharge (in minutes): 35 Diagnosis - Discharge Diagnosis (1) Chest pain Status: Acute (2) Acute CHF Status: Acute (3) History of hypertension Status: Chronic (4) History of coronary artery disease Status: Acute (5) History of COPD Status: Acute (6) History of atrial fibrillation Status: Acute (7) History of psychiatric disorder Status: Acute (8) History of chronic back pain Status: Acute (9) History of cocaine abuse Status: Acute (10) Tobacco use disorder Status: Acute (11) Prophylactic measure Status: Acute Hospital Course - Lab Results Lab Results: Most Recent Lab Values WBC 11.5 K/uL (4.8-10.8) H 10/27/17 07:25 RBC 5.20 Mil/uL (4.40-5.90) 10/27/17 07:25 Hgb 13.3 g/dL (12.0-18.0) 10/27/17 07:25 Hct 42.1 % (35.0-51.0) 10/27/17 07:25 MCV 81.0 fL (80.0-94.0) 10/27/17 07:25 MCH 25.6 pg (27.0-31.0) L 10/27/17 07:25 MCHC 31.6 g/dL (33.0-37.0) L 10/27/17 07:25 RDW 22.4 % (11.5-14.5) H 10/27/17 07:25 Plt Count 347 K/uL (130-400) 10/27/17 07:25 MPV 8.2 fL (7.2-11.7) 10/27/17 07:25 Neut % (Auto) 71.8 % (50.0-75.0) 10/27/17 07:25 Lymph % (Auto) 15.6 % (20.0-40.0) L 10/27/17 07:25 Maury % (Auto) 9.8 % (0.0-10.0) 10/27/17 07:25 Eos % (Auto) 2.2 % (0.0-4.0) 10/27/17 07:25 Baso % (Auto) 0.6 % (0.0-2.0) 10/27/17 07:25 Neut # 8.3 K/uL (1.8-7.0) H 10/27/17 07:25 Lymph # 1.8 K/uL (1.0-4.3) 10/27/17 07:25 Maury # 1.1 K/uL (0.0-0.8) H 10/27/17 07:25 Eos # 0.2 K/uL (0.0-0.7) 10/27/17 07:25 Baso # 0.1 K/uL (0.0-0.2) 10/27/17 07:25 PT 12.8 SECONDS (9.7-12.2) H 10/23/17 20:07 INR 1.1 10/23/17 20:07 APTT 36 SECONDS (21-34) H 10/23/17 20:07 D-Dimer, Quantitative 451 ng/mlDDU (0-243) H 10/23/17 20:07 Sodium 134 mmol/L (132-148) 10/27/17 07:25 Potassium 4.9 mmol/L (3.6-5.2) 10/27/17 07:25 Chloride 97 mmol/L (98-107) L 10/27/17 07:25 Carbon Dioxide 28 mmol/L (22-30) 10/27/17 07:25 Anion Gap 14 (10-20) 10/27/17 07:25 BUN 44 mg/dL (9-20) H 10/27/17 07:25 Creatinine 1.6 mg/dL (0.8-1.5) H 10/27/17 07:25 Est GFR ( Amer) 56 10/27/17 07:25 Est GFR (Non-Af Amer) 46 10/27/17 07:25 POC Glucose (mg/dL) 83 mg/dL (65-110) 10/27/17 06:34 Random Glucose 91 mg/dL (75-110) 10/27/17 07:25 Calcium 8.5 mg/dl (8.6-10.4) L 10/27/17 07:25 Phosphorus 4.7 mg/dL (2.5-4.5) H 10/27/17 07:25 Magnesium 1.9 mg/dL (1.6-2.3) 10/27/17 07:25 Total Bilirubin 0.8 mg/dL (0.2-1.3) 10/27/17 07:25 AST 92 U/L (17-59) H 10/27/17 07:25 ALT 104 U/L (21-72) H 10/27/17 07:25 Alkaline Phosphatase 90 U/L (38-126) 10/27/17 07:25 Total Creatine Kinase 91 U/L (55-170) 10/24/17 09:45 CK-MB (Mass) 6.60 ng/mL (0.0-3.38) H 10/24/17 09:45 Troponin I 0.0420 ng/mL (0.00-0.120) 10/24/17 09:45 NT-Pro-B Natriuret Pep 53032 pg/mL (0-450) H 10/23/17 20:07 Total Protein 8.0 g/dL (6.3-8.3) 10/27/17 07:25 Albumin 3.9 g/dL (3.5-5.0) 10/27/17 07:25 Globulin 4.1 gm/dL (2.2-3.9) H 10/27/17 07:25 Albumin/Globulin Ratio 1.0 (1.0-2.1) 10/27/17 07:25 Urine Color Yellow (YELLOW) 10/23/17 19:00 Urine Clarity Clear (Clear) 10/23/17 19:00 Urine pH 5.0 (5.0-8.0) 10/23/17 19:00 Ur Specific [place] 1.026 (1.003-1.030) 10/23/17 19:00 Urine Protein 2+ mg/dL (NEGATIVE) H 10/23/17 19:00 Urine Glucose (UA) Normal mg/dL (Normal) 10/23/17 19:00 Urine Ketones Negative mg/dL (NEGATIVE) 10/23/17 19:00 Urine Blood Negative (NEGATIVE) 10/23/17 19:00 Urine Nitrate Negative (NEGATIVE) 10/23/17 19:00 Urine Bilirubin Negative (NEGATIVE) 10/23/17 19:00 Urine Urobilinogen Normal mg/dL (0.2-1.0) 10/23/17 19:00 Ur Leukocyte Esterase Neg Nancie/uL (Negative) 10/23/17 19:00 Urine WBC (Auto) 8 /hpf (0-5) H 10/23/17 19:00 Urine RBC (Auto) 3 /hpf (0-3) 10/23/17 19:00 Hyaline Casts 0-2 /lpf (0-2) 10/23/17 19:00 Digoxin 0.8 ng/mL (0.8-2.0) 10/23/17 20:07 Urine Opiates Screen Negative (NEGATIVE) 10/23/17 19:00 Urine Methadone Screen Negative (NEGATIVE) 10/23/17 19:00 Ur Barbiturates Screen Negative (NEGATIVE) 10/23/17 19:00 Ur Phencyclidine Scrn Negative (NEGATIVE) 10/23/17 19:00 Ur Amphetamines Screen Negative (NEGATIVE) 10/23/17 19:00 U Benzodiazepines Scrn Positive (NEGATIVE) 10/23/17 19:00 U Oth Cocaine Metabols Positive (NEGATIVE) H 10/23/17 19:00 U Cannabinoids Screen Negative (NEGATIVE) 10/23/17 19:00 - Hospital Course Hospital Course: HPI ( As per admission): Patient is a 47 year old male, with PMHx of HTN, CAD, CHF, Afib, COPD, ARLENE, Herniated discs L-spine, Bipolar/Depression, Asthma, hx of splenic infarct/ abscess, who presents to the emergency room complaining of sob and chest pain. Patient states he began having chest pain yesterday in the evening while he was resting and it has gradually worsened. He states he waited to come to the ED because he wanted to see if the chest pain was going to get better. He describes location as substernal without radiation. Patient states his pain is an 10/10. He states his shortness of breath and chest pain are both related to his anxiety ever since he quit smoking 9 months ago. He denies fever, chills, abdominal pain, nausea, vomiting, or diarrhea. Hospital Course: Patient was admitted with the consideration for chest pain secondary to history of atrial fibrillation, cocaine use and acute CHF exacerbation. Horticultural Worker, Dr. Morgan was consulted, who recommended appropriate medical chemical management. Patient was medically managed with appropriate medications during the course of his admission. Patient had an uneventful hospital course. During the course of admission, patient refused necessary medical management for his condition such as anticoagulation and Life vest as per recommendation by railroad repairer. Patient refuses such recommendation and wants to steer the course of his own treatment as he sees fit. Patient was cleared by his PMD, Dr. Ocampo for discharge and he is to follow up with Dr. Ocampo outpatient as instructed. Patient was discharge with appropriate instructions as well as medications. Pertinent Imaging/Labs: UDS: + Cocaine metabolites EKG: no acute St/T wave change; irregular/tachycardia Chest X-ray (10/23/17): Interval slight progression pulmonary edema/CHF ECHO (02/2017): LV systolic function severely reduced. LV mildly dilated. Severe global hypokinesis of LV. Negative for endocarditis. This is brief summary of events. For a complete course, please refer to the medical record. Discharge Exam - Head Exam Head Exam: ATRAUMATIC - Eye Exam Eye Exam: EOMI - ENT Exam ENT Exam: Mucous Membranes Moist - Respiratory Exam Respiratory Exam: Clear to PA & Lateral, NORMAL BREATHING PATTERN - Cardiovascular Exam Cardiovascular Exam: Irregular Rhythm, +S1, +S2 - GI/Abdominal Exam GI & Abdominal Exam: Normal Bowel Sounds, Soft. absent: Firm - Extremities Exam Extremities exam: pedal edema - Neurological Exam Neurological exam: Alert - Psychiatric Exam Psychiatric exam: Agitated - Skin Skin Exam: Normal Color Discharge Plan - Follow Up Plan Condition: STABLE Disposition: HOME/ ROUTINE Instructions: Heart Failure (DC), Heart Healthy Diet (DC) Additional Instructions: Please discharge patient home as per Dr. Ocampo Please resume all home medications as prescribed by your PMD Please follow up with your PMD, Dr. Ocampo, within one week, 2016 Please return to the hospital or ED if symptoms resumes Referrals: Roque Ocampo Jr., MD [Medical Doctor] -
== END 2017-10-27 14:30 | disposition home or self-care (01) | DRG 308 ==
LOC: C.ER 18:04 → C.9E 20:53 → C.6T 21:28
PROVIDERS: ADMIT Internal Medicine; ATTEND Internal Medicine
DX: I48.91 Unspecified atrial fibrillation (principal); I50.23 Acute on chronic systolic (congestive) heart failure; Z68.41 Body mass index [BMI] 40.0-44.9, adult; I42.9 Cardiomyopathy, unspecified; I11.0 Hypertensive heart disease with heart failure; F41.9 Anxiety disorder, unspecified; I25.10 Atherosclerotic heart disease of native coronary artery without angina pectoris; F31.9 Bipolar disorder, unspecified; E78.00 Pure hypercholesterolemia, unspecified; J45.909 Unspecified asthma, uncomplicated; G47.33 Obstructive sleep apnea (adult) (pediatric); Z95.5 Presence of coronary angioplasty implant and graft; F14.10 Cocaine abuse, uncomplicated; M47.9 Spondylosis, unspecified; E66.9 Obesity, unspecified; Z91.19 Patient's noncompliance with other medical treatment and regimen; F17.210 Nicotine dependence, cigarettes, uncomplicated

== ENCOUNTER 2017-11-07 17:33 | Inpatient (IN) | payer MEDICARE, MEDICAID ==
[2017-11-07 17:33] VITALS: BMI 38.7
[2017-11-07 18:40] LABS: BASO # 0.1 K/uL (0.0-0.2); BASO % 0.6 % (0.0-2.0); EOS # 0.2 K/uL (0.0-0.7); EOS % 1.7 % (0.0-4.0); HEMATOCRIT 43.6 % (35.0-51.0); LYMPH # 1.6 K/uL (1.0-4.3); LYMPH % 14.2 % (20.0-40.0); MEAN CELL VOLUME 82.2 fL (80.0-94.0); MEAN CORPUSCULAR HEMOGLOBIN 26.1 pg (27.0-31.0); MEAN CORPUSCULAR HGB CONC 31.8 g/dL (33.0-37.0); MEAN PLATELET VOLUME 8.4 fL (7.2-11.7); MONO # 1.1 K/uL (0.0-0.8); MONO % 9.2 % (0.0-10.0); RED CELL DISTRIBUTION WIDTH 20.9 % (11.5-14.5); WHITE BLOOD COUNT 11.4 K/uL (4.8-10.8)
[2017-11-07 18:58] LABS: ALB/GLOB RATIO 0.8 (1.0-2.1); ALKALINE PHOSPHATASE 53 U/L (38-126); ALT/SGPT 43 U/L (21-72); AST/SGOT 27 U/L (17-59); BILIRUBIN,TOTAL 0.5 mg/dL (0.2-1.3); BLOOD UREA NITROGEN 21 mg/dL (9-20); CALCIUM 8.4 mg/dl (8.6-10.4); CARBON DIOXIDE 23 mmol/L (22-30); CHLORIDE 107 mmol/L (98-107); GFR AFRICAN-AMERICAN > 60; GLUCOSE,RANDOM 106 mg/dL (75-110); SODIUM 141 mmol/L (132-148); TOTAL PROTEIN 8.5 g/dL (6.3-8.3)
[2017-11-07 19:02] LABS: INR 1.2
[2017-11-07 19:46] LABS: RBC URINE 1 /hpf (0-3); URINE BILIRUBIN NEGATIVE (NEGATIVE); URINE BLOOD NEGATIVE (NEGATIVE); URINE COLOR Straw (YELLOW); URINE GLUCOSE (UA) NORMAL (Normal); URINE KETONE NEGATIVE (NEGATIVE); URINE LEUKOCYTE ESTERASE NEG Leu/uL (Negative); URINE PROTEIN NEGATIVE (NEGATIVE); URINE UROBILINOGEN NORMAL mg/dL (0.2-1.0); WBC URINE 1 /hpf (0-5)
--- NOTE | 2017-11-07 19:49 | C.PDOC ---
Time Seen by Provider: 11/07/17 17:54 Chief Complaint (Nursing): Shortness Of Breath History Per: Patient Onset/Duration Of Symptoms: Days (1) Current Symptoms Are (Timing): Still Present Current Respiratory Medications: See Home Med List Severity: Moderate Associated Symptoms: Chest Pain Reports Recently: Treated By A Physician, Hospitalized Additional History Per: Prior Records Past Medical History Reviewed: Historical Data, Nursing Documentation, Vital Signs Vital Signs: Last Vital Signs Temp 97.9 F 11/07/17 19:57 Pulse 118 H 11/07/17 19:57 Resp 18 11/07/17 19:57 BP 161/98 H 11/07/17 19:57 Pulse Ox 95 11/07/17 19:57 - Medical History PMH: Anxiety, Arthritis, Asthma, Atrial Fibrillation, Back Problems, Bipolar Disorder, CAD, Cardia Arrhythmia, CHF, COPD, Depression, HTN, Hypercholesterolemia, Peripheral Edema, Pneumonia, Sleep Apnea, Chronic Pain ( Lower Back Pain) Surgical History: Appendectomy (2008), Coronary Stent (2008 - 2012 4 stents) - [facility] Procedures CORONAR ARTERIOGR-2 CATH (07/06/13) DRAINAGE OF SPLEEN, PERCUTANEOUS APPROACH (03/05/17) INJECT/INFUSE NEC (02/22/14) LEFT HEART CARDIAC CATH (07/06/13) LT HEART ANGIOCARDIOGRAM (07/06/13) NEBULIZER THERAPY (03/28/14) NON-INVASIVE MECHANICAL VENTILATION (03/26/15) TRANSFUSE NONAUT FROZEN PLASMA IN PERIPH VEIN, PERC (02/21/17) Family History: States: Unknown Family Hx, CAD, Diabetes - Social History Hx Tobacco Use: Yes Hx Alcohol Use: No Hx Substance Use: No (USED TO) - Immunization History Hx Tetanus Toxoid Vaccination: Yes Hx Influenza Vaccination: Yes Hx Pneumococcal Vaccination: Yes (08/2014) Review Of Systems Except As Marked, All Systems Reviewed And Found Negative. Constitutional: Negative for: Fever Cardiovascular: Positive for: Chest Pain Respiratory: Positive for: Cough, Shortness of Breath. Negative for: Hemoptysis Gastrointestinal: Positive for: Abdominal Pain. Negative for: Vomiting Musculoskeletal: Negative for: Neck Pain Neurological: Negative for: Weakness, Seizures Physical Exam - Physical Exam Appears: In Acute Distress (mild), Chronically Ill Skin: Normal Color, Warm, Dry Head: Atraumatic, Normacephalic Eye(s): bilateral: PERRL, EOMI Neck: Normal ROM, Supple Cardiovascular: Rhythm Irregular Respiratory: No Accessory Muscle Use, Rales Gastrointestinal/Abdominal: Soft Extremity: Normal ROM, Pedal Edema Neurological/Psych: Oriented x3, Normal Motor, Normal Sensation ED Course And Treatment - Laboratory Results Result Diagrams: 11/07/17 18:37 11/07/17 18:37 ECG: Interpreted By Me, Viewed By Me ECG Rhythm: Atrial Fibrillation, Nonspecific Changes ECG Interpretation: Abnormal Rate From EC O2 Sat by Pulse Oximetry: 96 Pulse Ox Interpretation: Normal - Radiology CXR: Interpreted by Me, Viewed By Me CXR Interpretation: Yes: Other (CHF) Progress - Interventions Interventions:: Observation, Oxygen - Medications Administered Oral: Aspirin (Pt tool prior to arrival) Intravenous: Diuretic, Other (Digoxin) - Data Reviewed Data Reviewed: Lab, Diagnostic imaging, EKG, Old records - Patient Status Patient status: Partially improved - Critical Care Citical Care: Excluding Proc Time Critical Care Time: 45 minutes - Continuity of Care Discussed patient case with:: Patient, ED Nurse, PMD - Patient Plan Patient Plan: Admission, Telemetry Disposition Discussed With DrRanda: Roque Ocampo Jr. Comment: He accepted pt on his service. Pt also signed out to the MAR. Doctor Will See Patient In The: Hospital Counseled Patient/Family Regarding: Studies Performed, Diagnosis - Disposition Disposition: HOSPITALIZED Disposition Time: 20:01 Condition: GUARDED - Clinical Impression Clinical Impression: Acute exacerbation of CHF (congestive heart failure)
[2017-11-07] MEDS ORDERED: Digoxin 500 mcg/2ml (0.5 mg/2ml) Inj IVP ONE (19:57)
[2017-11-07] MEDS ORDERED: Digoxin 500 mcg/2ml (0.5 mg/2ml) Inj ONE (20:09)
--- NOTE | 2017-11-07 21:19 | CP.PCM.HP ---
History of Present Illness - History of Present Illness History of Present Illness: CC: SOB, chest pain, retaining fluid in abdomen HPI: Patient is a 47 year old male with a past medical history of anxiety/ depression, asthma, afib, chronic back pain, CAD, CHF, COPD, HTN, HLD, chronic LE edema, who presents to the ED with complaints of SOB, chest pain, fluid retention in abdomen, sweats, and nausea. The patient reports all of his symptoms started this morning (11/07). Patient states his SOB worsens with laying down and his chest pain is located parasternally and worsens with deep inspiration. Patient also states hes been feeling nausea and having sweats. He states he took all of his medications, used his albuterol and home oxygen, but did not use a nebulizer today. He says taking his medications helped his symptoms a little. Patient otherwise denies abdominal pain (unless touched due to hx of spleen hemorrhage), vomiting, fevers, dizziness, headaches, and leg pain. PMD: Dr. Ocampo PMHx: anxiety/depression, asthma, afib, chronic back pain, CAD, CHF, COPD, HTN, HLD, chronic LE edema, arthritis SurgHx: Appendectomy, 2008; 4 cardiac stents () FamHx: Mother- DM, Heart failure, arthritis SocHx: smokes 1-2 cigarettes weekly (quit 9 months ago; former heavy smoker since 9 years old); denies alcohol; "former cocaine abuser" Allergies: Apixaban, Plavix, Lovenox, Morphine Medications: See EMR for medication list. Present on Admission - Present on Admission Any Indicators Present on Admission: No Review of Systems - Constitutional Constitutional: Excessive Sweating. absent: Chills, Fatigue, Fever, Headache - EENT Ears: absent: Dizziness - Cardiovascular Cardiovascular: Chest Pain (sternally), Diaphoresis, Dyspnea, Irregular Heart Rhythm, Leg Edema, Pedal Edema, Rapid Heart Rate - Respiratory Respiratory: Dyspnea, Pain on Inspiration (sternal). absent: Cough - Gastrointestinal Gastrointestinal: Abdominal Pain (hx of spleen hematoma), Nausea. absent: Constipation, Diarrhea, Vomiting - Genitourinary Genitourinary: Urinary Frequency (increased) - Musculoskeletal Musculoskeletal: Back Pain (Chronic) - Integumentary Integumentary: Swelling (Bilateral LE, chronic) - Neurological Neurological: absent: Dizziness, Headaches - Endocrine Endocrine: Excessive Sweating, Polyuria Past Patient History - Infectious Disease Hx of Infectious Diseases: None - Tetanus Immunizations Tetanus Immunization: Up to Date - Past Medical History & Family History Past Medical History?: Yes - Past Social History Smoking Status: Former Smoker - CARDIAC Hx Atrial Fibrillation: Yes Hx Cardia Arrhythmia: Yes Hx Congestive Heart Failure: Yes Hx Hypercholesterolemia: Yes Hx Hypertension: Yes Hx Peripheral Edema: Yes - PULMONARY Hx Asthma: Yes Hx Chronic Obstructive Pulmonary Disease (COPD): Yes Hx Pneumonia: Yes Hx Sleep Apnea: Yes - NEUROLOGICAL Hx Neurological Disorder: No - HEENT Hx HEENT Problems: No - RENAL Hx Chronic Kidney Disease: No - ENDOCRINE/METABOLIC Hx Endocrine Disorders: No - HEMATOLOGICAL/ONCOLOGICAL Hx Blood Disorders: Yes Hx Blood Transfusions: Yes Other/Comment: MRSA Hx - INTEGUMENTARY Hx Dermatological Problems: Yes Hx Cellulitis: Yes - MUSCULOSKELETAL/RHEUMATOLOGICAL Hx Arthritis: Yes - GASTROINTESTINAL Hx Gastrointestinal Disorders: Yes Other/Comment: Splenic Hematoma - GENITOURINARY/GYNECOLOGICAL Hx Genitourinary Disorders: No - PSYCHIATRIC Hx Anxiety: Yes Hx Bipolar Disorder: Yes Hx Depression: Yes Hx Substance Use: No (USED TO) - SURGICAL HISTORY Hx Appendectomy: Yes (2008) Hx Coronary Stent: Yes (2008 - 2012 4 stents) - ANESTHESIA Hx Anesthesia: Yes Hx Anesthesia Reactions: No Hx Malignant Hyperthermia: No Meds Allergies/Adverse Reactions: Allergies Allergy/AdvReac Type Severity Reaction Status Date / Time apixaban [From Eliquis] Allergy RASH Verified 11/07/17 17:39 clopidogrel bisulfate Allergy RASH Verified 11/07/17 17:39 [From Plavix] enoxaparin sodium Allergy RASH Verified 11/07/17 17:39 [From Lovenox] morphine Allergy RASH Verified 11/07/17 17:39 Physical Exam - Head Exam Head Exam: ATRAUMATIC, NORMAL INSPECTION - Eye Exam Eye Exam: EOMI, Normal appearance - ENT Exam ENT Exam: Mucous Membranes Moist - Respiratory Exam Respiratory Exam: Decreased Breath Sounds. absent: Rhonchi, Wheezes, Respiratory Distress, NORMAL BREATHING PATTERN (tachypnea) - Cardiovascular Exam Cardiovascular Exam: Tachycardia, Irregular Rhythm, +S1, +S2 - GI/Abdominal Exam GI & Abdominal Exam: Distended, Normal Bowel Sounds, Soft, Tenderness (LUQ (hx of spleen hematoma)). absent: Firm - Extremities Exam Extremities exam: Positive for: pedal edema. Negative for: calf tenderness, normal inspection, tenderness Additional comments: chronic skin color changes; decreased pulses - Neurological Exam Neurological exam: Alert, Oriented x3 - Psychiatric Exam Psychiatric exam: Anxious - Skin Skin Exam: Dry, Intact, Warm Results - Vital Signs Recent Vital Signs: Last Vital Signs Temp 97.5 F L 11/07/17 20:50 Pulse 105 H 11/07/17 20:50 Resp 22 11/07/17 20:50 BP 161/98 H 11/07/17 20:50 Pulse Ox 97 11/07/17 20:50 - Labs Result Diagrams: 11/07/17 18:37 11/07/17 18:37 Labs: Laboratory Results - last 24 hr 11/07/17 11/07/17 11/07/17 18:37 18:37 18:37 WBC 11.4 H RBC 5.31 Hgb 13.9 Hct 43.6 MCV 82.2 MCH 26.1 L MCHC 31.8 L RDW 20.9 H Plt Count 220 D MPV 8.4 Neut % (Auto) 74.3 Lymph % (Auto) 14.2 L Harper % (Auto) 9.2 Eos % (Auto) 1.7 Baso % (Auto) 0.6 Neut # 8.5 H Lymph # 1.6 Harper # 1.1 H Eos # 0.2 Baso # 0.1 PT 13.0 H INR 1.2 APTT 34 Sodium 141 Potassium 4.0 Chloride 107 Carbon Dioxide 23 Anion Gap 15 BUN 21 H Creatinine 0.9 Est GFR ( Amer) > 60 Est GFR (Non-Af Amer) > 60 Random Glucose 106 Calcium 8.4 L Total Bilirubin 0.5 AST 27 ALT 43 Alkaline Phosphatase 53 Troponin I 0.0460 NT-Pro-B Natriuret Pep 5430 H Total Protein 8.5 H Albumin 3.7 Globulin 4.8 H Albumin/Globulin Ratio 0.8 L Urine Color Urine Clarity Urine pH Ur Specific [place] Urine Protein Urine Glucose (UA) Urine Ketones Urine Blood Urine Nitrate Urine Bilirubin Urine Urobilinogen Ur Leukocyte Esterase Urine WBC (Auto) Urine RBC (Auto) Digoxin Urine Opiates Screen Urine Methadone Screen Ur Barbiturates Screen Ur Phencyclidine Scrn Ur Amphetamines Screen U Benzodiazepines Scrn U Oth Cocaine Metabols U Cannabinoids Screen 11/07/17 11/07/17 11/07/17 19:06 19:40 19:40 WBC RBC Hgb Hct MCV MCH MCHC RDW Plt Count MPV Neut % (Auto) Lymph % (Auto) [place] % (Auto) Eos % (Auto) Baso % (Auto) Neut # Lymph # Harper # Eos # Baso # PT INR APTT Sodium Potassium Chloride Carbon Dioxide Anion Gap BUN Creatinine Est GFR ( Amer) Est GFR (Non-Af Amer) Random Glucose Calcium Total Bilirubin AST ALT Alkaline Phosphatase Troponin I NT-Pro-B Natriuret Pep Total Protein Albumin Globulin Albumin/Globulin Ratio Urine Color Straw Urine Clarity Clear Urine pH 6.0 Ur Specific [place] 1.008 Urine Protein Negative Urine Glucose (UA) Normal Urine Ketones Negative Urine Blood Negative Urine Nitrate Negative Urine Bilirubin Negative Urine Urobilinogen Normal Ur Leukocyte Esterase Neg Urine WBC (Auto) 1 Urine RBC (Auto) 1 Digoxin < 0.4 L Urine Opiates Screen Negative Urine Methadone Screen Negative Ur Barbiturates Screen Negative Ur Phencyclidine Scrn Negative Ur Amphetamines Screen Negative U Benzodiazepines Scrn Negative U Oth Cocaine Metabols Positive H U Cannabinoids Screen Negative Assessment & Plan (1) CHF exacerbation Assessment and Plan: * Chest xray: f/u official report * Troponin x1: negative; f/u remaining troponinsx2 * BNP: 5430 * ECHO (02/2017): LV systolic function severely reduced. LV mildly dilated. Severe global hypokinesis of LV. Negative for endocarditis. * Daily weights, I/O * Medications: * Lasix 40mg IV once was given in ED * Lasix 80mg IV BID (at 10am and 2pm) scheduled for 10/09 and 10/10. * Resume home medication- Lasix 40mg PO daily on 10/11, * Continue home medication: Spironolactone 20mg PO daily Status: Acute (2) Shortness of breath Assessment and Plan: Likely secondary to CHF exacerbation, fluid overload * Chest xray: f/u official report * Daily weights, I/O * O2 via nasal cannula prn * Medications: * Lasix 40mg IV once was given in ED * Lasix 80mg IV BID (at 10am and 2pm) scheduled for 10/09 and 10/10. * Resume home medication- Lasix 40mg PO daily on 10/11 Status: Acute (3) Chest pain Assessment and Plan: Admitted to telemetry, continue to monitor * Likely secondary to a fib, cocaine abuse, anxiety * EKG: f/u official report * Troponin x1: negative; f/u remaining troponinsx2 * BNP: 5430 * Status: Acute (4) Bilateral lower extremity edema Assessment and Plan: Secondary to chronic CHF and venous stasis Status: Acute (5) History of atrial fibrillation Assessment and Plan: Admit to Telemetry Medications: * Digoxin 0.5mg once given in ED * Continue home medication: Digoxin 0.125mg PO daily Status: Acute (6) HTN (hypertension) Assessment and Plan: Continue home medications: * Enalapril 10mg PO daily * Spironolactone 20mg PO daily * Continue to monitor Status: Acute (7) Cocaine abuse Assessment and Plan: Patient has history of cocain abuse. Patient denies using cocaine recently. Patient says he last used before his last admission in September * UDS (11/07): +positive for cocaine * Avoid beta blockers Status: Acute (8) History of chronic back pain Assessment and Plan: Patient has history of chronic back pain. Patient sees Dr. Carlisle as outpatient pain management. Continue home medications: * Gabapentin 300mg PO daily * Percocet 5/325 PO Q6prn * Benadryl 50mg PO daily Status: Acute (9) Anxiety and depression Assessment and Plan: Continue home medications: * Prozac 40mg PO daily * Xanax 1mg PO Q6 Status: Chronic (10) Asthma Assessment and Plan: Continue home medications: Albuterol, Singulaire, Symbicort O2 via nasal cannula prn Status: Chronic (11) CAD (coronary artery disease) Assessment and Plan: Patient has history of 4 cardiac stents, [id number] Continue home medications: * ASA 325mg PO daily * Crestor 5mg PO HS Status: Chronic (12) Tobacco use disorder Assessment and Plan: Discussed tobacco cessation. Patient reports quitting 9 months ago; however, admits to smoking 1-2 cigarettes weekly. Nicoderm patch Status: Acute (13) Prophylactic measure Assessment and Plan: Pepcid 20mg PO BID Regular Diet SCDs Status: Acute
[2017-11-07] MEDS: Oxycodone/Acetaminophen 5/325 mg Tab PO PRN (22:30)
[2017-11-07] MEDS: Silver Sulfadiazine 1% Cream (20 gm) TOP SCH (22:48)
[2017-11-07] MEDS ORDERED: Metoprolol 1 mg/ml Inj IVP ONE (23:16)
[2017-11-07] MEDS: HYDROmorphone 0.5 mg/0.5 ml ISec IVP PRN (23:58)
[2017-11-08 01:20] LABS: TROPONIN I 0.069 ng/mL (0.00-0.120)
[2017-11-08] MEDS: HYDROmorphone 0.5 mg/0.5 ml ISec IVP PRN ×4 (04:47→23:50)
[2017-11-08] MEDS: Oxycodone/Acetaminophen 5/325 mg Tab PO PRN ×3 (06:10→18:50)
[2017-11-08] MEDS: Silver Sulfadiazine 1% Cream (20 gm) TOP SCH ×3 (07:52→20:52)
[2017-11-08] MEDS ORDERED: Albuterol HFA 90 mcg/actuation (8 g) IH SCH (08:00)
--- NOTE | 2017-11-08 08:11 | CP.PCM.PN ---
Subjective - Date & Time of Evaluation Date of Evaluation: 11/08/17 Time of Evaluation: 07:50 - Subjective Subjective: PGY3 Medicine Note - Dr. Ocampo's service: Patient seen and examined at bedside this AM. Patient was sleeping in his chair comfortably when I arrived. Patient reports his breathing get bad last night after he came home from an epidural procedure for his back pain. Patient says his breathing has not improved. Patient denies fever, chills, cough. Objective - Vital Signs/Intake and Output Vital Signs (last 24 hours): Temp Pulse Resp BP Pulse Ox 98.7 F 78 20 106/64 96 11/07/17 23:35 11/08/17 01:40 11/08/17 01:40 11/08/17 01:40 11/07/17 23:35 - Medications Medications: Current Medications Albuterol (Ventolin Hfa 90 Mcg/Actuation (8 G)) 2 puff IH RBID [facility] Alprazolam (Xanax) 1 mg PO Q6 PRN PRN Reason: Anxiety Last Admin: 11/08/17 04:29 Dose: 1 mg Aspirin (Ecotrin) 325 mg PO DAILY [facility] Digoxin (Lanoxin) 0.125 mg PO DAILY [facility] Diphenhydramine HCl (Benadryl) 50 mg PO Q6 PRN PRN Reason: Itching / Pruritus Last Admin: 11/08/17 06:10 Dose: 50 mg Enalapril Maleate (Vasotec) 10 mg PO DAILY [facility] Famotidine (Pepcid) 20 mg PO BID [facility] Fluoxetine HCl (Prozac) 40 mg PO DAILY [facility] Furosemide (Lasix) 80 mg IVP BID [facility] Stop: 11/08/17 14:30 Furosemide (Lasix) 80 mg IVP BID [facility] Stop: 11/09/17 14:30 Furosemide (Lasix) 40 mg PO DAILY [facility] Gabapentin (Neurontin) 300 mg PO DAILY [facility] Last Admin: 11/07/17 22:28 Dose: 300 mg Home Med (Budesonide/Formoterol Fumarate [Symbicort 160-4.5 Mcg Inhaler]) 1 aer IH BID [facility] Hydromorphone HCl (Dilaudid) 0.5 mg IVP Q6H PRN PRN Reason: Pain, severe (8-10) Last Admin: 11/08/17 04:47 Dose: 0.5 mg Montelukast Sodium (Singulair) 10 mg PO HS [facility] Last Admin: 11/07/17 22:11 Dose: 10 mg Nicotine (Nicoderm Cq) 1 patch TD DAILY [facility] Last Admin: 11/07/17 22:47 Dose: 1 patch Ondansetron HCl (Zofran Inj) 4 mg IVP Q6 PRN PRN Reason: Nausea/Vomiting Last Admin: 11/08/17 00:01 Dose: 4 mg Oxycodone/Acetaminophen (Percocet 5/325 Mg Tab) 2 tab PO Q6 PRN PRN Reason: Pain, moderate (4-7) Last Admin: 11/08/17 06:10 Dose: 2 tab Rosuvastatin Calcium (Crestor) 5 mg PO HS [facility] Last Admin: 11/07/17 22:11 Dose: 5 mg Silver Sulfadiazine (Silvadene 1% 20 Gm) 1 ea TOP Q8H [facility] Last Admin: 11/08/17 07:52 Dose: Not Given Spironolactone (Aldactone) 25 mg PO DAILY [facility] - Labs Labs: 11/07/17 18:37 11/07/17 18:37 PT 13.0 SECONDS (9.7-12.2) H 11/07/17 18:37 INR 1.2 11/07/17 18:37 APTT 34 SECONDS (21-34) 11/07/17 18:37 - Constitutional Appears: Non-toxic, No Acute Distress - Head Exam Head Exam: NORMAL INSPECTION - Eye Exam Eye Exam: EOMI - ENT Exam ENT Exam: Mucous Membranes Moist - Respiratory Exam Respiratory Exam: Rales, NORMAL BREATHING PATTERN. absent: Accessory Muscle Use , Respiratory Distress - Cardiovascular Exam Cardiovascular Exam: Gallop, REGULAR RHYTHM, JVD, +S1, +S2. absent: Rubs, Murmur - GI/Abdominal Exam GI & Abdominal Exam: Distended, Soft, Normal Bowel Sounds. absent: Tenderness - Extremities Exam Extremities Exam: absent: Pedal Edema - Neurological Exam Neurological Exam: Alert, Awake, Oriented x3 - Psychiatric Exam Psychiatric exam: Normal Affect, Normal Mood - Skin Skin Exam: Normal Color, Warm Assessment and Plan - Assessment and Plan (Free Text) Assessment: (1) CHF exacerbation Assessment and Plan: * Chest xray: f/u official report, looks like diffuse pulmonary edema * Troponin x2: negative; f/u 3rd troponin * F/U HgbA1C, TSH, Lipid panel * BNP: 5430 (from 21444 in September) * ECHO (02/2017): LV systolic function severely reduced. LV mildly dilated. Severe global hypokinesis of LV. Negative for endocarditis. * Daily weights, I/O * Medications: * Lasix 40mg IV once was given in ED * Lasix 80mg IV BID (at 10am and 2pm) scheduled for 11/08 and 11/09. * Resume home medication- Lasix 40mg PO daily on 11/10 * Continue home medication: Spironolactone 20mg PO daily Status: Acute (2) Shortness of breath Assessment and Plan: Likely secondary to CHF exacerbation, fluid overload * Chest xray: f/u official report * Daily weights, I/O * O2 via nasal cannula prn * Medications: * Lasix 40mg IV once was given in ED * Lasix 80mg IV BID (at 10am and 2pm) scheduled for 11/08 and 11/09. * Resume home medication- Lasix 40mg PO daily on 11/10 Status: Acute (3) Chest pain Assessment and Plan: Admitted to telemetry, continue to monitor * Likely secondary to a fib, cocaine abuse, anxiety * EKG: f/u official report * Troponin x2: negative; f/u 3rd troponin * F/U HgbA1C, TSH, Lipid panel * BNP: 5430 Status: Acute (4) Bilateral lower extremity edema Assessment and Plan: Secondary to chronic CHF and venous stasis Status: Acute (5) History of atrial fibrillation Assessment and Plan: Admit to Telemetry Medications: * Digoxin 0.5mg once given in ED * Continue home medication: Digoxin 0.125mg PO daily Status: Acute (6) HTN (hypertension) Assessment and Plan: Continue home medications: * Enalapril 10mg PO daily * Spironolactone 20mg PO daily * Continue to monitor Status: Acute (7) Cocaine abuse Assessment and Plan: Patient has history of cocain abuse. Patient denies using cocaine recently. Patient says he last used before his last admission in September * UDS (11/07): +positive for cocaine * Avoid beta blockers Status: Acute (8) History of chronic back pain Assessment and Plan: Patient has history of chronic back pain. Patient sees Dr. Carlisle as outpatient pain management. Continue home medications: * Gabapentin 300mg PO daily * Dilaudid 0.5mg IVP Q6H (do not exceed 1mg Q4H) * Benadryl 50mg PO daily Status: Acute (9) Anxiety and depression Assessment and Plan: Continue home medications: * Prozac 40mg PO daily * Xanax 1mg PO Q6 Status: Chronic (10) Asthma Assessment and Plan: Continue home medications: Albuterol, Singulaire, Symbicort O2 via nasal cannula prn Status: Chronic (11) CAD (coronary artery disease) Assessment and Plan: Patient has history of 4 cardiac stents, [id number] Continue home medications: * ASA 325mg PO daily * Crestor 5mg PO HS Status: Chronic (12) Tobacco use disorder Assessment and Plan: Discussed tobacco cessation. Patient reports quitting 9 months ago; however, admits to smoking 1-2 cigarettes weekly. Nicoderm patch Status: Acute (13) Prophylactic measure Assessment and Plan: Pepcid 20mg PO BID Regular Diet SCDs Status: Acute
[2017-11-08 08:15] LABS: BASO # 0.1 K/uL (0.0-0.2); BASO % 0.8 % (0.0-2.0); EOS # 0.4 K/uL (0.0-0.7); EOS % 3.4 % (0.0-4.0); HEMATOCRIT 43.2 % (35.0-51.0); LYMPH # 2.1 K/uL (1.0-4.3); MEAN CELL VOLUME 83.3 fL (80.0-94.0); MEAN CORPUSCULAR HEMOGLOBIN 26.6 pg (27.0-31.0); MEAN PLATELET VOLUME 8.8 fL (7.2-11.7); MONO # 1.2 K/uL (0.0-0.8); MONO % 9.6 % (0.0-10.0); RED CELL DISTRIBUTION WIDTH 20.3 % (11.5-14.5); WHITE BLOOD COUNT 12.1 K/uL (4.8-10.8)
[2017-11-08 08:29] LABS: ALB/GLOB RATIO 1.1 (1.0-2.1); ALKALINE PHOSPHATASE 63 U/L (38-126); ALT/SGPT 37 U/L (21-72); AST/SGOT 33 U/L (17-59); BILIRUBIN,TOTAL 0.5 mg/dL (0.2-1.3); BLOOD UREA NITROGEN 26 mg/dL (9-20); CALCIUM 8.5 mg/dl (8.6-10.4); CARBON DIOXIDE 29 mmol/L (22-30); CHLORIDE 99 mmol/L (98-107); GFR AFRICAN-AMERICAN > 60; GLUCOSE,RANDOM 129 mg/dL (75-110); POTASSIUM 4.3 mmol/L (3.6-5.2); SODIUM 139 mmol/L (132-148); TOTAL PROTEIN 7.7 g/dL (6.3-8.3)
[2017-11-08] MEDS ORDERED: Albuterol-Ipratrop 3 mg / 0.5 (3 ml) UD INH SCH (08:30)
[2017-11-08 08:46] LABS: TROPONIN I 0.059 ng/mL (0.00-0.120)
--- NOTE | 2017-11-08 09:21 | RAD ---
PROCEDURE: CHEST RADIOGRAPH, 1 VIEW HISTORY: SOB COMPARISON: Comparison is made to 10/23/2017 FINDINGS: LUNGS: Moderate pulmonary vascular congestion and perihilar opacities are noted larger and more conspicuous compared to the previous exam. PLEURA: No pneumothorax or pleural fluid seen. CARDIOVASCULAR: The cardiac silhouette is enlarged. OSSEOUS STRUCTURES: No significant abnormalities. VISUALIZED UPPER ABDOMEN: Normal. OTHER FINDINGS: None. IMPRESSION: Moderate pulmonary vascular congestion.
[2017-11-08] MEDS: Digoxin 125 mcg (0.125 mg) Tab PO SCH (10:37)
[2017-11-08] MEDS: Aspirin 325 mg EC Tablets PO SCH (10:37)
[2017-11-08] MEDS: Albuterol 0.083% Inhal Sol (2.5 mg/3 mL) UD INH SCH ×2 (13:27→19:55)
[2017-11-09] MEDS: Oxycodone/Acetaminophen 5/325 mg Tab PO PRN ×4 (02:17→18:18)
[2017-11-09] MEDS: Albuterol 0.083% Inhal Sol (2.5 mg/3 mL) UD INH SCH ×4 (02:37→21:23)
[2017-11-09] MEDS: HYDROmorphone 0.5 mg/0.5 ml ISec IVP PRN ×3 (06:06→21:23)
[2017-11-09] MEDS: Silver Sulfadiazine 1% Cream (20 gm) TOP SCH ×3 (06:13→21:27)
[2017-11-09 07:44] LABS: BASO # 0.1 K/uL (0.0-0.2); BASO % 0.8 % (0.0-2.0); EOS # 0.7 K/uL (0.0-0.7); EOS % 6.1 % (0.0-4.0); HEMATOCRIT 45.7 % (35.0-51.0); LYMPH # 1.8 K/uL (1.0-4.3); LYMPH % 15.6 % (20.0-40.0); MEAN CELL VOLUME 83.4 fL (80.0-94.0); MEAN CORPUSCULAR HEMOGLOBIN 26.3 pg (27.0-31.0); MEAN CORPUSCULAR HGB CONC 31.5 g/dL (33.0-37.0); MEAN PLATELET VOLUME 8.5 fL (7.2-11.7); MONO # 1.4 K/uL (0.0-0.8); MONO % 12.5 % (0.0-10.0); NRBC % 0.1 % (0.0-2.0); RED CELL DISTRIBUTION WIDTH 20.4 % (11.5-14.5); WHITE BLOOD COUNT 11.3 K/uL (4.8-10.8)
[2017-11-09 07:54] LABS: ALB/GLOB RATIO 0.8 (1.0-2.1); ALKALINE PHOSPHATASE 70 U/L (38-126); ALT/SGPT 47 U/L (21-72); AST/SGOT 33 U/L (17-59); BILIRUBIN,TOTAL 0.5 mg/dL (0.2-1.3); BLOOD UREA NITROGEN 29 mg/dL (9-20); CALCIUM 8.8 mg/dl (8.6-10.4); CARBON DIOXIDE 34 mmol/L (22-30); CHLORIDE 98 mmol/L (98-107); CHOLESTEROL 136 mg/dL (0-199); GFR AFRICAN-AMERICAN > 60; GLUCOSE,RANDOM 91 mg/dL (75-110); POTASSIUM 4.5 mmol/L (3.6-5.2); SODIUM 140 mmol/L (132-148); TOTAL PROTEIN 9.2 g/dL (6.3-8.3)
[2017-11-09 09:08] LABS: THYROID STIMULATING HORMONE 4.45 mIU/L (0.46-4.68)
[2017-11-09] MEDS: Digoxin 125 mcg (0.125 mg) Tab PO SCH (10:00)
[2017-11-09] MEDS: Aspirin 325 mg EC Tablets PO SCH (10:00)
--- NOTE | 2017-11-09 15:36 | CP.PCM.PN ---
Subjective - Date & Time of Evaluation Date of Evaluation: 11/09/17 Time of Evaluation: 07:15 - Subjective Subjective: Medicine note (PGY-1)----> Dr. Ocampo's service Patient was seen and examined at bedside, while watching TV comfortably. Patient states that he feels "sick". Patient admits to chest pain, SOB and abdominal pain. Patient continues to tolerate diet and ambulate. Objective - Vital Signs/Intake and Output Vital Signs (last 24 hours): Temp Pulse Resp BP Pulse Ox 97.4 F L 67 18 144/89 96 11/09/17 08:16 11/09/17 08:16 11/09/17 08:16 11/09/17 10:02 11/09/17 08:16 - Medications Medications: Current Medications Albuterol Sulfate (Albuterol 0.083% Inhal Aliza (2.5 Mg/3 Ml) Ud) 2.5 mg INH RQ6 [facility] Last Admin: 11/09/17 13:52 Dose: 2.5 mg Alprazolam (Xanax) 1 mg PO Q6 PRN PRN Reason: Anxiety Last Admin: 11/09/17 10:02 Dose: 1 mg Aspirin (Ecotrin) 325 mg PO DAILY [facility] Last Admin: 11/09/17 10:00 Dose: 325 mg Digoxin (Lanoxin) 0.125 mg PO DAILY [facility] Last Admin: 11/09/17 10:00 Dose: 0.125 mg Diphenhydramine HCl (Benadryl) 50 mg PO Q6 PRN PRN Reason: Itching / Pruritus Last Admin: 11/09/17 14:19 Dose: 50 mg Enalapril Maleate (Vasotec) 10 mg PO DAILY [facility] Last Admin: 11/09/17 10:01 Dose: 10 mg Famotidine (Pepcid) 20 mg PO BID [facility] Last Admin: 11/09/17 10:00 Dose: 20 mg Fluoxetine HCl (Prozac) 40 mg PO DAILY [facility] Last Admin: 11/09/17 10:01 Dose: 40 mg Furosemide (Lasix) 40 mg PO DAILY [facility] Gabapentin (Neurontin) 300 mg PO DAILY [facility] Last Admin: 11/09/17 10:02 Dose: 300 mg Hydromorphone HCl (Dilaudid) 0.5 mg IVP Q6H PRN PRN Reason: Pain, severe (8-10) Last Admin: 11/09/17 12:00 Dose: 0.5 mg Montelukast Sodium (Singulair) 10 mg PO HS [facility] Last Admin: 11/08/17 21:37 Dose: 10 mg Nicotine (Nicoderm Cq) 1 patch TD DAILY [facility] Last Admin: 11/09/17 10:01 Dose: 1 patch Ondansetron HCl (Zofran Inj) 4 mg IVP Q6 PRN PRN Reason: Nausea/Vomiting Last Admin: 11/08/17 00:01 Dose: 4 mg Oxycodone/Acetaminophen (Percocet 5/325 Mg Tab) 2 tab PO Q6 PRN PRN Reason: Pain, moderate (4-7) Last Admin: 11/09/17 14:19 Dose: 2 tab Rosuvastatin Calcium (Crestor) 5 mg PO [facility] Last Admin: 11/08/17 21:37 Dose: 5 mg Fluticasone/Salmeterol (Advair Diskus 250/50) 1 puff INH RQ12 [facility] Silver Sulfadiazine (Silvadene 1% 20 Gm) 1 ea TOP Q8H [facility] Last Admin: 11/09/17 14:18 Dose: 1 applic Spironolactone (Aldactone) 25 mg PO DAILY [facility] Last Admin: 11/09/17 10:03 Dose: Not Given - Labs Labs: 11/09/17 07:34 11/09/17 07:34 PT 13.0 SECONDS (9.7-12.2) H 11/07/17 18:37 INR 1.2 11/07/17 18:37 APTT 34 SECONDS (21-34) 11/07/17 18:37 - Constitutional Appears: No Acute Distress - Head Exam Head Exam: ATRAUMATIC, NORMOCEPHALIC - Eye Exam Eye Exam: EOMI - ENT Exam ENT Exam: Mucous Membranes Moist - Respiratory Exam Respiratory Exam: Clear to Ausculation Bilateral, NORMAL BREATHING PATTERN - Cardiovascular Exam Cardiovascular Exam: Irregular Rhythm, +S1, +S2 - GI/Abdominal Exam GI & Abdominal Exam: Soft, Normal Bowel Sounds - Extremities Exam Extremities Exam: Pedal Edema - Neurological Exam Neurological Exam: Alert, Awake, Oriented x3 - Psychiatric Exam Psychiatric exam: Normal Affect - Skin Skin Exam: Normal Color Assessment and Plan (1) CHF exacerbation Assessment & Plan: On admission BNP: 5430 Troponin negative (X3) Imaging: Chest X-ray (11/07/17): Moderate pulmonary vascular congestion Echo (02/13): Sub-optimal study. Dilated cardiomyopathy. Estimation of EF is difficulty, approximately 25%. Normal Doppler. Please refer to the report for complete impression. Medication: * Spironolactone 25mg PO daily * Lasix 80mg IV BID (at 10am and 2pm) scheduled for 11/08 and 11/09. * Resume home medication- Lasix 40mg PO daily on 10/11, Daily weights, I/O Fluid Restriction Status: Acute (2) Chest pain Assessment & Plan: Possibly secondary to cocaine use, hx of atrial fibrillation and anxiety Labs: * HgbA1c: 6.3 * Lipid panel: TGL: 202, Chol: 136, LDL: 71, HDL: 42 * TSH: 4.45 * Troponin: Negative x3 Medications: * Aspirin 325mg PO daily * Crestor 5mg PO HS Status: Acute (3) Dyspnea Assessment & Plan: Likely secondary to CHF exacerbation, fluid overload * Chest xray: Moderate pulmonary congestion * Daily weights, I/O * O2 via nasal cannula prn * Medications: * Lasix 80mg IV BID (at 10am and 2pm) scheduled for 11/08 and 11/09. * Resume home medication- Lasix 40mg PO daily on 11/10 Status: Acute (4) Bilateral lower extremity edema Assessment & Plan: Secondary to chronic CHF and venous stasis * Lasix 80mg IV BID (at 10am and 2pm) scheduled for 11/08 and 11/09. * Resume home medication- Lasix 40mg PO daily on 11/10 Status: Acute (5) HTN (hypertension) Assessment & Plan: Continue home medications: * Enalapril 10mg PO daily * Spironolactone 20mg PO daily * Cardizem 30mg PO QID * Continue to monitor Status: Acute (6) History of atrial fibrillation Assessment & Plan: Patient does not want to be on an anticoagulation Medications: * Cardizem 30mg PO QID * Digoxin 0.125mg PO Daily Status: Acute (7) History of cocaine abuse Assessment & Plan: Patient has history of cocain abuse. Patient denies using cocaine recently. Patient says he last used before his last admission in September * UDS (11/07): +positive for cocaine * Avoid beta blockers Status: Acute (8) History of chronic back pain Assessment & Plan: Patient has history of chronic back pain. Patient sees Dr. Carlisle as outpatient pain management. Continue home medications: * Gabapentin 300mg PO daily * Dilaudid 0.5mg IVP Q6H (do not exceed 1mg Q4H) * Benadryl 50mg PO daily Status: Acute (9) History of coronary artery disease Assessment & Plan: Patient has history of 4 cardiac stents, 1189-0234 Continue home medications: * ASA 325mg PO daily * Crestor 5mg PO HS Status: Acute (10) History of psychiatric disorder Assessment & Plan: Anxiety and depression: Continue home medications: * Prozac 40mg PO daily * Xanax 1mg PO Q6 Status: Acute (11) History of asthma Assessment & Plan: Continue home medications: Albuterol, Singulaire, Symbicort (Advair inpatient) O2 via nasal cannula prn Status: Acute (12) Tobacco abuse Assessment & Plan: Discussed tobacco cessation. Patient reports quitting 9 months ago; however, admits to smoking 1-2 cigarettes weekly. Nicoderm patch Status: Acute (13) Prophylactic measure Assessment & Plan: Pepcid 20mg PO BID Regular Diet SCDs Status: Acute
[2017-11-09 15:50] VITALS: RESP 20
--- NOTE | 2017-11-09 19:17 | CARD ---
APPROVED REPORT EKG Measurement Heart [id number] <Conclusion> Atrial fibrillation Left anterior fascicular block Inferior infarct, age undetermined ST & T wave abnormality, consider anterolateral ischemia Abnormal ECG
[2017-11-09] MEDS: Fluticasone-Salmeterol 250-50mcg Diskus INH SCH (21:23)
[2017-11-10] MEDS: Oxycodone/Acetaminophen 5/325 mg Tab PO PRN ×4 (01:27→19:40)
[2017-11-10] MEDS: Albuterol 0.083% Inhal Sol (2.5 mg/3 mL) UD INH SCH ×4 (02:40→19:50)
[2017-11-10] MEDS: HYDROmorphone 0.5 mg/0.5 ml ISec IVP PRN ×3 (03:28→16:05)
[2017-11-10] MEDS: Silver Sulfadiazine 1% Cream (20 gm) TOP SCH ×3 (06:20→21:18)
[2017-11-10] MEDS: Fluticasone-Salmeterol 250-50mcg Diskus INH SCH (08:02)
[2017-11-10] MEDS: Aspirin 325 mg EC Tablets PO SCH (10:04)
[2017-11-10] MEDS: Digoxin 125 mcg (0.125 mg) Tab PO SCH (10:05)
[2017-11-10 11:53] LABS: BASO # 0.1 K/uL (0.0-0.2); EOS # 0.8 K/uL (0.0-0.7); EOS % 7.4 % (0.0-4.0); HEMATOCRIT 45.9 % (35.0-51.0); LYMPH # 1.8 K/uL (1.0-4.3); LYMPH % 16.6 % (20.0-40.0); MEAN CELL VOLUME 82.6 fL (80.0-94.0); MEAN CORPUSCULAR HEMOGLOBIN 26.5 pg (27.0-31.0); MEAN CORPUSCULAR HGB CONC 32.1 g/dL (33.0-37.0); MEAN PLATELET VOLUME 8.5 fL (7.2-11.7); MONO # 1.3 K/uL (0.0-0.8); NRBC % 0.2 % (0.0-2.0); RED CELL DISTRIBUTION WIDTH 20.2 % (11.5-14.5); WHITE BLOOD COUNT 10.8 K/uL (4.8-10.8)
[2017-11-10 12:22] LABS: ALB/GLOB RATIO 0.8 (1.0-2.1); ALKALINE PHOSPHATASE 78 U/L (38-126); ALT/SGPT 44 U/L (21-72); AST/SGOT 34 U/L (17-59); BILIRUBIN,TOTAL 0.5 mg/dL (0.2-1.3); BLOOD UREA NITROGEN 25 mg/dL (9-20); CALCIUM 8.5 mg/dl (8.6-10.4); CARBON DIOXIDE 33 mmol/L (22-30); CHLORIDE 98 mmol/L (98-107); GFR AFRICAN-AMERICAN > 60; GLUCOSE,RANDOM 141 mg/dL (75-110); MAGNESIUM 1.8 mg/dL (1.6-2.3); PHOSPHOROUS 3.6 mg/dL (2.5-4.5); POTASSIUM 4.3 mmol/L (3.6-5.2); SODIUM 135 mmol/L (132-148); TOTAL PROTEIN 9.2 g/dL (6.3-8.3)
--- NOTE | 2017-11-10 19:47 | CP.PCM.PN ---
Subjective - Date & Time of Evaluation Date of Evaluation: 11/10/17 Time of Evaluation: 07:35 - Subjective Subjective: Medicine note ( PGY-1)----> Dr. Ocampo's service Patient was seen and examined at bedside. Patient states that he feels "sick". Patient admits to chest pain, SOB and abdominal pain. Patient continues to tolerate diet and ambulate in the hallway. Objective - Vital Signs/Intake and Output Vital Signs (last 24 hours): Temp Pulse Resp BP Pulse Ox 97.9 F 57 L 20 143/85 98 11/10/17 15:41 11/10/17 15:41 11/10/17 15:41 11/10/17 15:41 11/10/17 15:41 Intake and Output: 11/10/17 11/11/17 18:59 06:59 Intake Total 1000 200 Balance 1000 200 - Medications Medications: Current Medications Albuterol Sulfate (Albuterol 0.083% Inhal Aliza (2.5 Mg/3 Ml) Ud) 2.5 mg INH RQ6 [facility] Last Admin: 11/10/17 14:28 Dose: 2.5 mg Alprazolam (Xanax) 1 mg PO Q6 PRN PRN Reason: Anxiety Last Admin: 11/10/17 12:27 Dose: 1 mg Aspirin (Ecotrin) 325 mg PO DAILY [facility] Last Admin: 11/10/17 10:04 Dose: 325 mg Digoxin (Lanoxin) 0.125 mg PO DAILY [facility] Last Admin: 11/10/17 10:05 Dose: 0.125 mg Diltiazem HCl (Cardizem) 30 mg PO QID [facility] Last Admin: 11/10/17 17:46 Dose: 30 mg Diphenhydramine HCl (Benadryl) 50 mg PO Q6 PRN PRN Reason: Itching / Pruritus Last Admin: 11/10/17 19:41 Dose: 50 mg Enalapril Maleate (Vasotec) 10 mg PO DAILY [facility] Last Admin: 11/10/17 10:04 Dose: 10 mg Famotidine (Pepcid) 20 mg PO BID [facility] Last Admin: 11/10/17 17:46 Dose: 20 mg Fluoxetine HCl (Prozac) 40 mg PO DAILY [facility] Last Admin: 11/10/17 10:06 Dose: 40 mg Furosemide (Lasix) 40 mg PO DAILY [facility] Last Admin: 11/10/17 10:04 Dose: 40 mg Gabapentin (Neurontin) 300 mg PO DAILY [facility] Last Admin: 11/10/17 10:06 Dose: 300 mg Hydromorphone HCl (Dilaudid) 0.5 mg IVP Q6H PRN PRN Reason: Pain, severe (8-10) Last Admin: 11/10/17 16:05 Dose: 0.5 mg Montelukast Sodium (Singulair) 10 mg PO HS [facility] Last Admin: 11/09/17 21:25 Dose: 10 mg Nicotine (Nicoderm Cq) 1 patch TD DAILY [facility] Last Admin: 11/10/17 10:03 Dose: 1 patch Ondansetron HCl (Zofran Inj) 4 mg IVP Q6 PRN PRN Reason: Nausea/Vomiting Last Admin: 11/10/17 16:16 Dose: 4 mg Oxycodone/Acetaminophen (Percocet 5/325 Mg Tab) 2 tab PO Q6 PRN PRN Reason: Pain, moderate (4-7) Last Admin: 11/10/17 19:40 Dose: 2 tab Rosuvastatin Calcium (Crestor) 5 mg PO [facility] Last Admin: 11/09/17 21:25 Dose: 5 mg Fluticasone/Salmeterol (Advair Diskus 250/50) 1 puff INH RQ12 [facility] Last Admin: 11/10/17 08:02 Dose: Not Given Silver Sulfadiazine (Silvadene 1% 20 Gm) 1 ea TOP Q8H [facility] Last Admin: 11/10/17 13:49 Dose: Not Given Spironolactone (Aldactone) 25 mg PO DAILY [facility] Last Admin: 11/10/17 10:04 Dose: 25 mg - Labs Labs: 11/10/17 11:32 11/10/17 11:32 PT 13.0 SECONDS (9.7-12.2) H 11/07/17 18:37 INR 1.2 11/07/17 18:37 APTT 34 SECONDS (21-34) 11/07/17 18:37 - Constitutional Appears: Well, No Acute Distress - Head Exam Head Exam: ATRAUMATIC - Eye Exam Eye Exam: EOMI - ENT Exam ENT Exam: Mucous Membranes Moist - Respiratory Exam Respiratory Exam: Clear to Ausculation Bilateral, NORMAL BREATHING PATTERN - Cardiovascular Exam Cardiovascular Exam: REGULAR RHYTHM, +S1, +S2 - GI/Abdominal Exam GI & Abdominal Exam: Distended, Soft, Normal Bowel Sounds. absent: Firm, Guarding, Rigid, Diminished Bowel Sounds, Hypoactive Bowel Sounds - Extremities Exam Extremities Exam: Normal Inspection. absent: Calf Tenderness - Neurological Exam Neurological Exam: Alert, Awake, Oriented x3 - Psychiatric Exam Psychiatric exam: Normal Affect, Normal Mood - Skin Skin Exam: Normal Color Assessment and Plan (1) CHF exacerbation Assessment & Plan: On admission BNP: 5430 Troponin negative (X3) Imaging: Chest X-ray (11/07/17): Moderate pulmonary vascular congestion Echo (02/13): Sub-optimal study. Dilated cardiomyopathy. Estimation of EF is difficulty, approximately 25%. Normal Doppler. Please refer to the report for complete impression. Medication: * Spironolactone 25mg PO daily * Lasix 40mg PO daily on 10/11, Daily weights, I/O Fluid Restriction Status: Acute (2) Chest pain Assessment & Plan: Possibly secondary to cocaine use, hx of atrial fibrillation and anxiety Labs: * HgbA1c: 6.3 * Lipid panel: TGL: 202, Chol: 136, LDL: 71, HDL: 42 * TSH: 4.45 * Troponin: Negative x3 Medications: * Aspirin 325mg PO daily * Crestor 5mg PO HS Status: Acute (3) Dyspnea Assessment & Plan: Likely secondary to CHF exacerbation, fluid overload * Chest xray: Moderate pulmonary congestion * Daily weights, I/O * O2 via nasal cannula prn * Medications: * Lasix 40mg PO daily on 11/10 Status: Acute (4) Bilateral lower extremity edema Assessment & Plan: Secondary to chronic CHF and venous stasis * Lasix 40mg PO daily on 11/10 Status: Acute (5) HTN (hypertension) Assessment & Plan: Continue home medications: * Enalapril 10mg PO daily * Spironolactone 20mg PO daily * Cardizem 30mg PO QID * Continue to monitor Status: Acute (6) History of atrial fibrillation Assessment & Plan: Patient does not want to be on an anticoagulation Medications: * Cardizem 30mg PO QID * Digoxin 0.125mg PO Daily Status: Acute (7) History of cocaine abuse Assessment & Plan: Patient has history of cocain abuse. Patient denies using cocaine recently. Patient says he last used before his last admission in September * UDS (11/07): +positive for cocaine * Avoid beta blockers Status: Acute (8) History of chronic back pain Assessment & Plan: Patient has history of chronic back pain. Patient sees Dr. Carlisle as outpatient pain management. Continue home medications: * Gabapentin 300mg PO daily * Dilaudid 0.5mg IVP Q6H (do not exceed 1mg Q4H) * Benadryl 50mg PO daily Status: Acute (9) History of coronary artery disease Assessment & Plan: Patient has history of 4 cardiac stents, [id number] Continue home medications: * ASA 325mg PO daily * Crestor 5mg PO HS Status: Acute (10) History of psychiatric disorder Assessment & Plan: Anxiety and depression: Continue home medications: * Prozac 40mg PO daily * Xanax 1mg PO Q6 Status: Acute (11) History of asthma Assessment & Plan: Continue home medications: Albuterol, Singulaire, Symbicort (Advair inpatient) O2 via nasal cannula prn Status: Acute (12) Tobacco abuse Assessment & Plan: Discussed tobacco cessation. Patient reports quitting 9 months ago; however, admits to smoking 1-2 cigarettes weekly. Nicoderm patch Status: Acute (13) Prophylactic measure Assessment & Plan: Pepcid 20mg PO BID Regular Diet SCDs Status: Acute
[2017-11-11] MEDS: HYDROmorphone 0.5 mg/0.5 ml ISec IVP PRN ×2 (00:06→06:19)
--- NOTE | 2017-11-11 00:36 | PCM.FALL ---
Post Fall Progress Note - Post Fall Fall Date: 11/11/17 Fall Time: 12:15 Description of Fall: Verito morrissey was called overhead at 00:15 to room 553B. Patient got off the bed to throw trash into the trash can, where he tripped over the chair and landed his left rib on the arm rest of the chair. Patient was already sitting on the chair when medical staff arrived. Patient rates his left rib pain 6/10, sharp in quality, and non radiating. Patient denies injuring his head, or loss of consciousness. Patient further denies headache, vision changes, weakness, dizziness, shortness of breath, chest pain, nausea, or vomiting. - Post Fall Exam Vital Sign: Temp Pulse Resp BP Pulse Ox 97.9 F 73 20 152/93 H 98 11/10/17 15:41 11/10/17 21:47 11/10/17 15:41 11/10/17 21:47 11/10/17 15:41 11/11/17 00:31 Temp: 97.3, Pulse: 71, Resp: 20, Ox 97%, BP: 145/93 Skull Exam: Negative for: Scalp wound, Scalp hematoma Eye Exam: Positive for: Pupils equal, Pupils reactive Chest Exam: Positive for: Tenderness in ribs (left lower ribs tenderness). Negative for: Difficulty breathing (left lower ribs tenderness, no skin laceration, no erythema, no swelling appreciated) Abdomen Exam: Negative for: Tenderness Impression/Plan: Left rib pain -Follow up Rib x-ray -Continue current pain medication -Instructed patient to use call worrell when he needs help -Will discuss case attending physician
[2017-11-11] MEDS: Albuterol 0.083% Inhal Sol (2.5 mg/3 mL) UD INH SCH ×2 (01:50→08:03)
[2017-11-11] MEDS: Oxycodone/Acetaminophen 5/325 mg Tab PO PRN ×2 (03:13→09:38)
[2017-11-11] MEDS: Silver Sulfadiazine 1% Cream (20 gm) TOP SCH (06:24)
[2017-11-11 07:15] LABS: BASO # 0.1 K/uL (0.0-0.2); EOS # 0.5 K/uL (0.0-0.7); EOS % 4.6 % (0.0-4.0); HEMATOCRIT 44.4 % (35.0-51.0); LYMPH % 18.5 % (20.0-40.0); MEAN CELL VOLUME 82.4 fL (80.0-94.0); MEAN CORPUSCULAR HGB CONC 32.8 g/dL (33.0-37.0); MEAN PLATELET VOLUME 8.1 fL (7.2-11.7); MONO # 1.2 K/uL (0.0-0.8); MONO % 11.1 % (0.0-10.0); NRBC % 0.1 % (0.0-2.0); RED CELL DISTRIBUTION WIDTH 20.4 % (11.5-14.5)
[2017-11-11 07:50] LABS: ALKALINE PHOSPHATASE 64 U/L (38-126); ALT/SGPT 40 U/L (21-72); AST/SGOT 37 U/L (17-59); BILIRUBIN,TOTAL 0.5 mg/dL (0.2-1.3); BLOOD UREA NITROGEN 26 mg/dL (9-20); CALCIUM 8.5 mg/dl (8.6-10.4); CARBON DIOXIDE 35 mmol/L (22-30); CHLORIDE 95 mmol/L (98-107); GFR AFRICAN-AMERICAN > 60; GLUCOSE,RANDOM 114 mg/dL (75-110); MAGNESIUM 1.8 mg/dL (1.6-2.3); PHOSPHOROUS 4.6 mg/dL (2.5-4.5); POTASSIUM 4.7 mmol/L (3.6-5.2); SODIUM 137 mmol/L (132-148); TOTAL PROTEIN 7.8 g/dL (6.3-8.3)
[2017-11-11] MEDS: Fluticasone-Salmeterol 250-50mcg Diskus INH SCH (08:03)
[2017-11-11 09:10] VITALS: TEMP 97.4; O2SAT 96
[2017-11-11 09:38] VITALS: BP 151/89; PULSE 87
[2017-11-11] MEDS: Digoxin 125 mcg (0.125 mg) Tab PO SCH (09:39)
[2017-11-11] MEDS: Aspirin 325 mg EC Tablets PO SCH (09:40)
[2017-11-11 09:41] VITALS: PULSE 87
--- NOTE | 2017-11-11 13:29 | CP.PCM.DIS ---
Provider - Provider Date of Admission: 11/07/17 20:02 Attending physician: Roque Ocampo Jr, MD Time Spent in preparation of Discharge (in minutes): 35 Diagnosis - Discharge Diagnosis (1) CHF exacerbation Status: Acute (2) Chest pain Status: Acute (3) Dyspnea Status: Acute (4) Bilateral lower extremity edema Status: Acute (5) HTN (hypertension) Status: Acute (6) History of atrial fibrillation Status: Acute (7) History of cocaine abuse Status: Acute (8) History of chronic back pain Status: Acute (9) History of coronary artery disease Status: Acute (10) History of psychiatric disorder Status: Acute (11) History of asthma Status: Acute (12) Tobacco abuse Status: Acute (13) Prophylactic measure Status: Acute Hospital Course - Lab Results Lab Results: Most Recent Lab Values WBC 11.0 K/uL (4.8-10.8) H 11/11/17 07:07 RBC 5.38 Mil/uL (4.40-5.90) 11/11/17 07:07 Hgb 14.6 g/dL (12.0-18.0) 11/11/17 07:07 Hct 44.4 % (35.0-51.0) 11/11/17 07:07 MCV 82.4 fL (80.0-94.0) 11/11/17 07:07 MCH 27.0 pg (27.0-31.0) 11/11/17 07:07 MCHC 32.8 g/dL (33.0-37.0) L 11/11/17 07:07 RDW 20.4 % (11.5-14.5) H 11/11/17 07:07 Plt Count 271 K/uL (130-400) 11/11/17 07:07 MPV 8.1 fL (7.2-11.7) 11/11/17 07:07 Neut % (Auto) 64.8 % (50.0-75.0) 11/11/17 07:07 Lymph % (Auto) 18.5 % (20.0-40.0) L 11/11/17 07:07 [place] % (Auto) 11.1 % (0.0-10.0) H 11/11/17 07:07 Eos % (Auto) 4.6 % (0.0-4.0) H 11/11/17 07:07 Baso % (Auto) 1.0 % (0.0-2.0) 11/11/17 07:07 Neut # 7.1 K/uL (1.8-7.0) H 11/11/17 07:07 Lymph # 2.0 K/uL (1.0-4.3) 11/11/17 07:07 [place] # 1.2 K/uL (0.0-0.8) H 11/11/17 07:07 Eos # 0.5 K/uL (0.0-0.7) 11/11/17 07:07 Baso # 0.1 K/uL (0.0-0.2) 11/11/17 07:07 PT 13.0 SECONDS (9.7-12.2) H 11/07/17 18:37 INR 1.2 11/07/17 18:37 APTT 34 SECONDS (21-34) 11/07/17 18:37 Sodium 137 mmol/L (132-148) 11/11/17 07:07 Potassium 4.7 mmol/L (3.6-5.2) 11/11/17 07:07 Chloride 95 mmol/L (98-107) L 11/11/17 07:07 Carbon Dioxide 35 mmol/L (22-30) H 11/11/17 07:07 Anion Gap 12 (10-20) 11/11/17 07:07 BUN 26 mg/dL (9-20) H 11/11/17 07:07 Creatinine 1.0 mg/dL (0.8-1.5) 11/11/17 07:07 Est GFR ( Amer) > 60 11/11/17 07:07 Est GFR (Non-Af Amer) > 60 11/11/17 07:07 Random Glucose 114 mg/dL (75-110) H 11/11/17 07:07 Hemoglobin A1c 6.3 % (4.2-6.5) 11/09/17 07:34 Calcium 8.5 mg/dl (8.6-10.4) L 11/11/17 07:07 Phosphorus 4.6 mg/dL (2.5-4.5) H 11/11/17 07:07 Magnesium 1.8 mg/dL (1.6-2.3) 11/11/17 07:07 Total Bilirubin 0.5 mg/dL (0.2-1.3) 11/11/17 07:07 AST 37 U/L (17-59) 11/11/17 07:07 ALT 40 U/L (21-72) 11/11/17 07:07 Alkaline Phosphatase 64 U/L (38-126) 11/11/17 07:07 Total Creatine Kinase 124 U/L (55-170) 11/08/17 07:57 CK-MB (Mass) 8.78 ng/mL (0.0-3.38) H 11/08/17 07:57 Troponin I 0.0590 ng/mL (0.00-0.120) 11/08/17 07:57 NT-Pro-B Natriuret Pep 5430 pg/mL (0-450) H 11/07/17 18:37 Total Protein 7.8 g/dL (6.3-8.3) 11/11/17 07:07 Albumin 3.9 g/dL (3.5-5.0) 11/11/17 07:07 Globulin 3.8 gm/dL (2.2-3.9) 11/11/17 07:07 Albumin/Globulin Ratio 1.0 (1.0-2.1) 11/11/17 07:07 Triglycerides 202 mg/dL (0-149) H D 11/09/17 07:34 Cholesterol 136 mg/dL (0-199) 11/09/17 07:34 LDL Cholesterol Direct 71 mg/dL (0-129) 11/09/17 07:34 HDL Cholesterol 42 mg/dL (30-70) 11/09/17 07:34 TSH 3rd Generation 4.45 mIU/L (0.46-4.68) 11/09/17 07:34 Urine Color Straw (YELLOW) 11/07/17 19:40 Urine Clarity Clear (Clear) 11/07/17 19:40 Urine pH 6.0 (5.0-8.0) 11/07/17 19:40 Ur Specific [place] 1.008 (1.003-1.030) 11/07/17 19:40 Urine Protein Negative mg/dL (NEGATIVE) 11/07/17 19:40 Urine Glucose (UA) Normal mg/dL (Normal) 11/07/17 19:40 Urine Ketones Negative mg/dL (NEGATIVE) 11/07/17 19:40 Urine Blood Negative (NEGATIVE) 11/07/17 19:40 Urine Nitrate Negative (NEGATIVE) 11/07/17 19:40 Urine Bilirubin Negative (NEGATIVE) 11/07/17 19:40 Urine Urobilinogen Normal mg/dL (0.2-1.0) 11/07/17 19:40 Ur Leukocyte Esterase Neg Nancie/uL (Negative) 11/07/17 19:40 Urine WBC (Auto) 1 /hpf (0-5) 11/07/17 19:40 Urine RBC (Auto) 1 /hpf (0-3) 11/07/17 19:40 Digoxin < 0.4 ng/mL (0.8-2.0) L 11/07/17 19:06 Urine Opiates Screen Negative (NEGATIVE) 11/07/17 19:40 Urine Methadone Screen Negative (NEGATIVE) 11/07/17 19:40 Ur Barbiturates Screen Negative (NEGATIVE) 11/07/17 19:40 Ur Phencyclidine Scrn Negative (NEGATIVE) 11/07/17 19:40 Ur Amphetamines Screen Negative (NEGATIVE) 11/07/17 19:40 U Benzodiazepines Scrn Negative (NEGATIVE) 11/07/17 19:40 U Oth Cocaine Metabols Positive (NEGATIVE) H 11/07/17 19:40 U Cannabinoids Screen Negative (NEGATIVE) 11/07/17 19:40 - Hospital Course Hospital Course: HPI (As per admission): Patient is a 47 year old male with a past medical history of anxiety/depression , asthma, afib, chronic back pain, CAD, CHF, COPD, HTN, HLD, chronic LE edema, who presents to the ED with complaints of SOB, chest pain, fluid retention in abdomen, sweats, and nausea. The patient reports all of his symptoms started this morning (11/07). Patient states his SOB worsens with laying down and his chest pain is located parasternally and worsens with deep inspiration. Patient also states hes been feeling nausea and having sweats. He states he took all of his medications, used his albuterol and home oxygen, but did not use a nebulizer today. He says taking his medications helped his symptoms a little. Patient otherwise denies abdominal pain (unless touched due to hx of spleen hemorrhage), vomiting, fevers, dizziness, headaches, and leg pain. Hospital Course: Patient was admitted with the diagnosis of CHF exacerbation and chest pain ( secondary to history of atrial fibrillation, cocaine use). Patient was managed with appropriate medications and over the course of admission, patient's symptoms continued to improved. 11/11/15 at 12:15, Patient got off the bed to throw trash into the trash can, where he tripped over the chair and landed his left rib on the arm rest of the chair. Patient was already sitting on the chair when medical staff arrived. Appropriate imaging was ordered post-fall, however, patient did not stay his hospital course to have imaging done. Patient signed out AMA and stated that he was doing well and did not need to be seen by his inpatient PMD. Pertinent Imaging/Labs: Chest X-ray (11/07/17): Moderate pulmonary vascular congestion Echo (02/13): Sub-optimal study. Dilated cardiomyopathy. Estimation of EF is difficulty, approximately 25%. Normal Doppler. Please refer to the report for complete impression. HgbA1c: 6.3 Lipid panel: TGL: 202, Chol: 136, LDL: 71, HDL: 42 TSH: 4.45 Troponin: Negative x3 This is a brief summary of event. For a complete course, please refer to the medical records. Discharge Exam - Head Exam Head Exam: ATRAUMATIC, NORMAL INSPECTION - Eye Exam Eye Exam: EOMI - ENT Exam ENT Exam: Mucous Membranes Moist - Respiratory Exam Respiratory Exam: Clear to PA & Lateral, NORMAL BREATHING PATTERN - Cardiovascular Exam Cardiovascular Exam: Irregular Rhythm, +S1, +S2 - GI/Abdominal Exam GI & Abdominal Exam: Distended, Normal Bowel Sounds. absent: Firm, Guarding - Extremities Exam Extremities exam: pedal edema - Neurological Exam Neurological exam: Alert, Oriented x3 - Psychiatric Exam Psychiatric exam: Agitated, Anxious - Skin Skin Exam: Normal Color Discharge Plan - Follow Up Plan Condition: GUARDED Disposition: AGAINST MEDICAL ADVICE
--- NOTE | 2017-11-11 13:50 | PCM.HF ---
Heart Failure Core Measure - Heart Failure Ejection Fraction: Less Than 40 % SHONDA Inhibitor Prescribed: Yes Beta-Yonis Prescribed: None Contraindication/Reason for not providing: asthma/ coccaine use Angiotensin II Receptor Yonis Prescribed: No Contraindication/Reason for not providing: on SHONDA AnticoagulationTherapy for Atrial Fibrillation/Atrialflutter: No Contraindication/Reason for not providing: hx of bleed in the past Aldosterone Antagonist Prescribed: Yes Hydralazine Nitrate Prescribed: No Contraindication/Reason for not providing: on digoxin Implantable Cardioverter Defibrillator Therapy: No Contraindication/Reason for not providing: on vest therapy Cardiac Resynchronization Therapy Prescribed: No Contraindication/Reason for not providing: on vest - Follow up Will be discharged to: Home Follow Up Date (must be within 7 days from discharge): 11/16/17 Follow Up Time: 09:00
== END 2017-11-11 11:40 | disposition left against medical advice (07) | DRG 293 ==
LOC: C.ER 17:33 → C.9E 20:02 → C.5S 20:47
PROVIDERS: ADMIT Internal Medicine; ATTEND Internal Medicine
DX: I11.0 Hypertensive heart disease with heart failure (principal); D73.5 Infarction of spleen; I42.0 Dilated cardiomyopathy; I48.91 Unspecified atrial fibrillation; I50.9 Heart failure, unspecified; F31.9 Bipolar disorder, unspecified; I25.10 Atherosclerotic heart disease of native coronary artery without angina pectoris; F41.9 Anxiety disorder, unspecified; J44.9 Chronic obstructive pulmonary disease, unspecified; E78.00 Pure hypercholesterolemia, unspecified; G47.30 Sleep apnea, unspecified; M54.5 Low back pain; G89.29 Other chronic pain; F17.210 Nicotine dependence, cigarettes, uncomplicated; F14.10 Cocaine abuse, uncomplicated; I87.8 Other specified disorders of veins; Z95.5 Presence of coronary angioplasty implant and graft

== ENCOUNTER 2017-11-28 17:46 | Inpatient (IN) | payer MEDICARE, MEDICAID ==
[2017-11-28 17:46] VITALS: BMI 38.7
[2017-11-28] MEDS ORDERED: Sodium Chloride 0.9% 500 ML IV ONE (18:28)
[2017-11-28 18:40] LABS: BASO # 0.1 K/uL (0.0-0.2); BASO % 0.9 % (0.0-2.0); EOS # 0.2 K/uL (0.0-0.7); EOS % 2.6 % (0.0-4.0); HEMOGLOBIN 13.5 g/dL (12.0-18.0); LYMPH # 1.1 K/uL (1.0-4.3); LYMPH % 11.7 % (20.0-40.0); MEAN CELL VOLUME 82.9 fL (80.0-94.0); MEAN CORPUSCULAR HGB CONC 32.5 g/dL (33.0-37.0); MEAN PLATELET VOLUME 8.2 fL (7.2-11.7); MONO # 0.9 K/uL (0.0-0.8); MONO % 9.5 % (0.0-10.0); NEUT # 7.1 K/uL (1.8-7.0); NEUT % 75.3 % (50.0-75.0); RED CELL DISTRIBUTION WIDTH 18.6 % (11.5-14.5); WHITE BLOOD COUNT 9.5 K/uL (4.8-10.8)
[2017-11-28 18:53] LABS: INR 1.3
--- NOTE | 2017-11-28 19:51 | C.PDOC ---
History Of Present Illness 47 year old male presents to the ED c/o digitally and positional reproducible CP. Patient was recently admitted for the same symptoms, SOB, increasing leg edema. Patient was hospitalized from 11/07 until 11/11, patient reports good compliance with his medications. Patient had many prior evaluations for similar symptoms. Time Seen by Provider: 11/28/17 18:10 Chief Complaint (Nursing): Lower Extremity Problem/Injury History Per: Patient History/Exam Limitations: no limitations Onset/Duration Of Symptoms: Days Current Symptoms Are (Timing): Still Present Severity: None Recent travel outside of the [place]: No Additional History Per: Patient Past Medical History Reviewed: Historical Data, Nursing Documentation, Vital Signs Vital Signs: Last Vital Signs Temp 97.7 F 11/28/17 17:58 Pulse 115 H 11/28/17 18:08 Resp 18 11/28/17 17:58 BP 142/99 H 11/28/17 20:18 Pulse Ox 98 11/28/17 20:53 - Medical History PMH: Anxiety, Arthritis, Asthma, Atrial Fibrillation, Back Problems, Bipolar Disorder, CAD, Cardia Arrhythmia, CHF, COPD, Depression, HTN, Hypercholesterolemia, Peripheral Edema, Pneumonia, Sleep Apnea, Chronic Pain ( Lower Back Pain) Denies: Chronic Kidney Disease Surgical History: Appendectomy (2008), Coronary Stent (2008 - 2012 4 stents) - [facility] Procedures CORONAR ARTERIOGR-2 CATH (07/06/13) DRAINAGE OF SPLEEN, PERCUTANEOUS APPROACH (03/05/17) INJECT/INFUSE NEC (02/22/14) LEFT HEART CARDIAC CATH (07/06/13) LT HEART ANGIOCARDIOGRAM (07/06/13) NEBULIZER THERAPY (03/28/14) NON-INVASIVE MECHANICAL VENTILATION (03/26/15) TRANSFUSE NONAUT FROZEN PLASMA IN PERIPH VEIN, PERC (02/21/17) Family History: States: Unknown Family Hx, CAD, Diabetes - Social History Hx Tobacco Use: Yes Hx Alcohol Use: No Hx Substance Use: Yes (denies) - Immunization History Hx Tetanus Toxoid Vaccination: Yes Hx Influenza Vaccination: Yes Hx Pneumococcal Vaccination: Yes (08/2014) Review Of Systems Constitutional: Negative for: Fever, Chills Cardiovascular: Positive for: Chest Pain. Negative for: Palpitations Respiratory: Positive for: Shortness of Breath. Negative for: Cough Gastrointestinal: Negative for: Nausea, Vomiting, Abdominal Pain Skin: Negative for: Rash Neurological: Negative for: Weakness, Numbness, Confusion Physical Exam - Physical Exam Appears: Non-toxic, Other (morbidly obese, anxious) Skin: Normal Color, Warm, Dry Head: Atraumatic, Normacephalic Nose: No Discharge, No Deformity Oral Mucosa: Moist Neck: Normal ROM, Supple Chest: Symmetrical, Tenderness (digitally reproducible left chest wall discomfort ) Cardiovascular: Rhythm Regular, No Murmur Respiratory: Rales (B/L), No Rhonchi, No Wheezing Gastrointestinal/Abdominal: Soft, No Tenderness, No Distention, No Rebound, Other (Obese) Extremity: Normal ROM, No Calf Tenderness, No Deformity, Swelling (4/4 pitting edema) Neurological/Psych: Oriented x3, Normal Speech, Normal Cognition ED Course And Treatment - Laboratory Results Result Diagrams: 11/28/17 18:28 11/28/17 20:34 Lab Interpretation: Abnormal (trop neg, bnp + , tox + cocaine, dig low 0.3) ECG: Interpreted By Me, Viewed By Me ECG Rhythm: Atrial Fibrillation Rate From EC O2 Sat by Pulse Oximetry: 98 (On RA) Pulse Ox Interpretation: Normal Progress Note: dig IV, lasix 80 IV, Ativan 2 PO Reevaluation Time: 21:38 Reassessment Condition: Improved - Physician Consult Information Outcome Of Conversation: d/w Dr. Farr (Hospitalist) @ 8000 ok to adm for Dr. Ocampo (on vac) Medical Decision Making Medical Decision Making: Plan: * EKG * Blood work * CXR * Ativan 2 mg PO * Lasix 40 mg PO * IV fluids * Influenza A B test * UA Patient takes Lasix 40 mg PO, was given Lasix 40 mg IVP after 90 minutes with no urine output. Additional Lasix 40 mg IVP. Patient's prior cardiac consults were reviewed, Patient has dilated cardiomyopathy with decreased ejection fraction 25%. Disposition Doctor Will See Patient In The: Hospital Counseled Patient/Family Regarding: Studies Performed, Diagnosis - Disposition Disposition: HOSPITALIZED Disposition Time: 21:39 Condition: FAIR Forms: [facility] (Welsh) - Clinical Impression Clinical Impression: History of CHF (congestive heart failure), Cocaine use, Atrial fibrillation with rapid ventricular response - Scribe Statement The provider has reviewed the documentation as recorded by the Scribpradeep Camargo All medical record entries made by the Scribe were at my direction and personally dictated by me. I have reviewed the chart and agree that the record accurately reflects my personal performance of the history, physical exam, medical decision making, and the department course for this patient. I have also personally directed, reviewed, and agree with the discharge instructions and disposition.
[2017-11-28 20:22] LABS: URINE BACTERIA RARE (<OCC); URINE BILIRUBIN NEGATIVE (NEGATIVE); URINE BLOOD NEGATIVE (NEGATIVE); URINE CLARITY Clear (Clear); URINE COLOR Straw (YELLOW); URINE GLUCOSE (UA) NORMAL (Normal); URINE LEUKOCYTE ESTERASE NEG Leu/uL (Negative); URINE NITRATE NEGATIVE (NEGATIVE); URINE PROTEIN NEGATIVE (NEGATIVE); URINE UROBILINOGEN NORMAL mg/dL (0.2-1.0)
[2017-11-28 20:54] LABS: ALB/GLOB RATIO 0.9 (1.0-2.1); ALBUMIN 3.7 g/dL (3.5-5.0); ALT/SGPT 33 U/L (21-72); AST/SGOT 46 U/L (17-59); BLOOD UREA NITROGEN 18 mg/dL (9-20); CALCIUM 8.4 mg/dl (8.6-10.4); GFR AFRICAN-AMERICAN > 60; GFR NON-AFRICAN AMERICAN > 60
[2017-11-28 20:55] LABS: B-TYPE NATRIURETIC PEPTIDE 6810 pg/mL (0-450)
[2017-11-28 21:06] LABS: BARBITURATES, UR NEGATIVE (NEGATIVE); BENZODIAZEPINES, UR NEGATIVE (NEGATIVE); OPIATES, UR NEGATIVE (NEGATIVE); PHENCYCLIDINE, UR NEGATIVE (NEGATIVE)
[2017-11-28] MEDS ORDERED: Digoxin 500 mcg/2ml (0.5 mg/2ml) Inj IVP STA (21:16)
[2017-11-28] MEDS ORDERED: Digoxin 500 mcg/2ml (0.5 mg/2ml) Inj ONE (21:40)
--- NOTE | 2017-11-28 23:30 | CP.PCM.HP ---
<Joseph Aguayo Jose - Last Filed: 11/29/17 00:32> History of Present Illness - History of Present Illness History of Present Illness: CC: "My chest hurts" HPI: Mr Gray is a 47 year old male who is well known to our service, presents to the ER with a 24 hour history of left sided chest pain, rated 8/10, that is worse with deep breathing. He states he had a panic attack which provoked the chest pain. He says he has chronic chest pain located in the sternum, however this time the chest pain was left-sided. He denies radiation or diaphoresis or numbness/tingliness. He says he has been compliant with all his medications. He also complains of worsening lower extremity edema bilaterally, worse in the right foot. Of note, he says 3 days ago he was walking and lost his balance and fell on his right side. He also complains of chronic low back pain and chronic left sided abdominal pain. He denies fever, chills, nausea, vomiting, diarrhea, dysuria. He states he last used cocaine on 11/12/17. PMD: Dr. Ocampo PMHx: anxiety/depression, asthma, afib, chronic low back pain, CAD, Systolic CHF , COPD, HTN, HLD, chronic LE edema, arthritis, hx of splenic infarct/abscess SurgHx: Appendectomy, 2008; 4 cardiac stents (2008-) FamHx: Mother- DM, Heart failure, arthritis SocHx: smokes 1-2 cigarettes weekly (quit 9 months ago; former heavy smoker since 9 years old); denies alcohol; "former cocaine abuser"; denies other illicit drugs Allergies: Apixaban, Plavix, Lovenox, Morphine Medications: See EMR for medication list. Present on Admission - Present on Admission Any Indicators Present on Admission: No Review of Systems - Constitutional Constitutional: absent: Chills, Fever - EENT Eyes: absent: Change in Vision - Cardiovascular Cardiovascular: Chest Pain, Palpitations. absent: Diaphoresis, Pain Radiating to Arm/Neck/Jaw, Syncope - Respiratory Respiratory: Dyspnea on Exertion. absent: Cough - Gastrointestinal Gastrointestinal: Abdominal Pain. absent: Constipation, Diarrhea, Nausea, Vomiting - Genitourinary Genitourinary: absent: Dysuria - Musculoskeletal Musculoskeletal: Arthralgias, Back Pain - Integumentary Integumentary: Pruritus. absent: Bleeding Lesions - Neurological Neurological: absent: Dizziness - Psychiatric Psychiatric: Anxiety Past Patient History - Infectious Disease Hx of Infectious Diseases: None - Tetanus Immunizations Tetanus Immunization: Up to Date - Past Medical History & Family History Past Medical History?: Yes - Past Social History Smoking Status: Current Some Days Smoker - CARDIAC Hx Atrial Fibrillation: Yes Hx Cardia Arrhythmia: Yes Hx Congestive Heart Failure: Yes Hx Hypercholesterolemia: Yes Hx Hypertension: Yes Hx Peripheral Edema: Yes - PULMONARY Hx Asthma: Yes Hx Chronic Obstructive Pulmonary Disease (COPD): Yes Hx Pneumonia: Yes Hx Sleep Apnea: Yes - NEUROLOGICAL Hx Neurological Disorder: No - HEENT Hx HEENT Problems: No - RENAL Hx Chronic Kidney Disease: No - ENDOCRINE/METABOLIC Hx Endocrine Disorders: No - HEMATOLOGICAL/ONCOLOGICAL Hx Blood Disorders: Yes Hx Blood Transfusions: Yes Other/Comment: MRSA Hx - INTEGUMENTARY Hx Dermatological Problems: Yes Hx Cellulitis: Yes - MUSCULOSKELETAL/RHEUMATOLOGICAL Hx Arthritis: Yes - GASTROINTESTINAL Hx Gastrointestinal Disorders: Yes Other/Comment: Splenic Hematoma - GENITOURINARY/GYNECOLOGICAL Hx Genitourinary Disorders: No - PSYCHIATRIC Hx Anxiety: Yes Hx Bipolar Disorder: Yes Hx Depression: Yes Hx Substance Use: Yes (denies) - SURGICAL HISTORY Hx Appendectomy: Yes (2008) Hx Coronary Stent: Yes (2008 - 2012 4 stents) - ANESTHESIA Hx Anesthesia: Yes Hx Anesthesia Reactions: No Hx Malignant Hyperthermia: No Meds Allergies/Adverse Reactions: Allergies Allergy/AdvReac Type Severity Reaction Status Date / Time apixaban [From Eliquis] Allergy RASH Verified 11/07/17 17:39 clopidogrel bisulfate Allergy RASH Verified 11/07/17 17:39 [From Plavix] enoxaparin sodium Allergy RASH Verified 11/07/17 17:39 [From Lovenox] morphine Allergy RASH Verified 11/07/17 17:39 Physical Exam - Constitutional Appears: No Acute Distress, Unkempt - Head Exam Head Exam: ATRAUMATIC, NORMAL INSPECTION - Eye Exam Eye Exam: EOMI - ENT Exam ENT Exam: Mucous Membranes Moist - Neck Exam Neck exam: Positive for: Full Rom, Normal Inspection - Respiratory Exam Respiratory Exam: Decreased Breath Sounds, Clear to Auscultation Bilateral, NORMAL BREATHING PATTERN. absent: Rales, Rhonchi, Wheezes - Cardiovascular Exam Cardiovascular Exam: Irregular Rhythm, +S1, +S2. absent: Bradycardia, Tachycardia, JVD, Systolic Murmur - GI/Abdominal Exam GI & Abdominal Exam: Normal Bowel Sounds, Soft, Tenderness. absent: Firm, Guarding, Hernia, Rebound Additional comments: Protuberant abdomen - Extremities Exam Additional comments: Pedal pulses diminished - feet cold to touch b/l B/l LE edema 2+ - Back Exam Back exam: NORMAL INSPECTION, tenderness - Neurological Exam Neurological exam: Alert, Normal Gait, Oriented x3 Additional comments: ambulates w/ cane - Psychiatric Exam Psychiatric exam: Normal Affect, Normal Mood - Skin Skin Exam: Abrasion, Intact, Normal Color, Warm Additional comments: excoriations on arms b/l non-bleeding lesions on arms b/l linear bruise on face inferior to left eye Results - Vital Signs Recent Vital Signs: Last Vital Signs Temp 97.7 F 11/28/17 17:58 Pulse 105 H 11/28/17 23:15 Resp 16 11/28/17 23:15 BP 108/85 11/28/17 23:15 Pulse Ox 98 11/28/17 21:39 - Labs Result Diagrams: 11/28/17 18:28 11/28/17 20:34 Labs: Laboratory Results - last 24 hr 11/28/17 11/28/17 11/28/17 17:46 18:28 18:35 WBC 9.5 RBC 5.00 Hgb 13.5 Hct 41.4 MCV 82.9 MCH 27.0 MCHC 32.5 L RDW 18.6 H Plt Count 224 MPV 8.2 Neut % (Auto) 75.3 H Lymph % (Auto) 11.7 L Crook % (Auto) 9.5 Eos % (Auto) 2.6 Baso % (Auto) 0.9 Neut # 7.1 H Lymph # 1.1 Crook # 0.9 H Eos # 0.2 Baso # 0.1 PT 15.0 H INR 1.3 APTT 37 H Sodium Potassium Chloride Carbon Dioxide Anion Gap BUN Creatinine Est GFR ( Amer) Est GFR (Non-Af Amer) Random Glucose Calcium Total Bilirubin AST ALT Alkaline Phosphatase Troponin I NT-Pro-B Natriuret Pep Total Protein Albumin Globulin Albumin/Globulin Ratio Urine Color Urine Clarity Urine pH Ur Specific [place] Urine Protein Urine Glucose (UA) Urine Ketones Urine Blood Urine Nitrate Urine Bilirubin Urine Urobilinogen Ur Leukocyte Esterase Urine WBC (Auto) Urine RBC (Auto) Urine Bacteria Digoxin Urine Opiates Screen Urine Methadone Screen Ur Barbiturates Screen Ur Phencyclidine Scrn Ur Amphetamines Screen U Benzodiazepines Scrn U Oth Cocaine Metabols U Cannabinoids Screen Influenza Typ A,B (EIA) Negative for flu a/b 11/28/17 11/28/17 11/28/17 20:08 20:08 20:34 WBC RBC Hgb Hct MCV MCH MCHC RDW Plt Count MPV Neut % (Auto) Lymph % (Auto) Crook % (Auto) Eos % (Auto) Baso % (Auto) Neut # Lymph # [place] # Eos # Baso # PT INR APTT Sodium 131 L Potassium 4.2 Chloride 99 Carbon Dioxide 24 Anion Gap 12 BUN 18 Creatinine 0.8 Est GFR ( Amer) > 60 Est GFR (Non-Af Amer) > 60 Random Glucose 77 Calcium 8.4 L Total Bilirubin 0.9 AST 46 ALT 33 Alkaline Phosphatase 64 Troponin I 0.0600 NT-Pro-B Natriuret Pep 6810 H Total Protein 7.8 Albumin 3.7 Globulin 4.1 H Albumin/Globulin Ratio 0.9 L Urine Color Straw Urine Clarity Clear Urine pH 5.0 Ur Specific [place] 1.005 Urine Protein Negative Urine Glucose (UA) Normal Urine Ketones Negative Urine Blood Negative Urine Nitrate Negative Urine Bilirubin Negative Urine Urobilinogen Normal Ur Leukocyte Esterase Neg Urine WBC (Auto) < 1 Urine RBC (Auto) < 1 Urine Bacteria Rare Digoxin Urine Opiates Screen Negative Urine Methadone Screen Negative Ur Barbiturates Screen Negative Ur Phencyclidine Scrn Negative Ur Amphetamines Screen Negative U Benzodiazepines Scrn Negative U Oth Cocaine Metabols Positive H U Cannabinoids Screen Negative Influenza Typ A,B (EIA) 11/28/17 20:37 WBC RBC Hgb Hct MCV MCH MCHC RDW Plt Count MPV Neut % (Auto) Lymph % (Auto) Cro[place] % (Auto) Eos % (Auto) Baso % (Auto) Neut # Lymph # [place] # Eos # Baso # PT INR APTT Sodium Potassium Chloride Carbon Dioxide Anion Gap BUN Creatinine Est GFR ( Amer) Est GFR (Non-Af Amer) Random Glucose Calcium Total Bilirubin AST ALT Alkaline Phosphatase Troponin I NT-Pro-B Natriuret Pep Total Protein Albumin Globulin Albumin/Globulin Ratio Urine Color Urine Clarity Urine pH Ur Specific [place] Urine Protein Urine Glucose (UA) Urine Ketones Urine Blood Urine Nitrate Urine Bilirubin Urine Urobilinogen Ur Leukocyte Esterase Urine WBC (Auto) Urine RBC (Auto) Urine Bacteria Digoxin 0.7 L Urine Opiates Screen Urine Methadone Screen Ur Barbiturates Screen Ur Phencyclidine Scrn Ur Amphetamines Screen U Benzodiazepines Scrn U Oth Cocaine Metabols U Cannabinoids Screen Influenza Typ A,B (EIA) Assessment & Plan (1) Atrial fibrillation with rapid ventricular response Assessment and Plan: Currently rate controlled Con't home med digoxin 0.125mg PO QD Con't home med aspirin 325mg PO QD (allergy to apixaban, clopidogrel, enoxaprin) Con't home med cardizem 60mg PO QID Status: Chronic (2) History of CHF (congestive heart failure) Assessment and Plan: Systolic CHF Echo 02/2017: LVSF SEVERELY REDUCED, Severe global hypokinesis of LV Cardiac Cath 03/2017: Lab report in chart however results could not be found Patient refuses ICD implant Hx of 4 stents Meds: Con't home med Spironolactone 25mg PO QD Furosemide 40mg IVP BID Con't home med enalapril 10mg PO QD Beta jenny contraindicated due to recent cocaine use Status: Chronic (3) Chest pain Assessment and Plan: Reproducible to palpation; worse during deep inspiration; per patient, provoked by panic attack Trop x1 negative; F/U AM Trop F/U CXR Status: Acute (4) History of coronary artery disease Assessment and Plan: Cardiac Cath 03/2017: Lab report in chart however results could not be found Patient refuses ICD implant Hx of 4 stents Meds: Con't home med Aspirin 325mg PO QD Con't home med Crestor 5mg PO HS Status: Acute (5) Cocaine abuse Assessment and Plan: UDS (+) for cocaine Patient states last use was 11/12 Beta blockers are contraindicated HOLD home med Coreg Status: Acute (6) Chronic obstructive pulmonary disease (COPD) Assessment and Plan: 40 year smoking history F/U CXR Con't home med Montelukast 10mg PO HS Advair Diskus (home med Symbicort not carried in house) Status: Acute (7) Tobacco use disorder Assessment and Plan: 40 year smoking history Nicotine patch TD QD Status: Acute (8) Anxiety and depression Assessment and Plan: Con't home med Xanax 1mg PO Q6H PRN Con't home med Prozac 40mg PO QD Status: Chronic (9) Lumbar disc disease Assessment and Plan: Osteophytes seen on prior imaging in Lumbar vertebrae Dilaudid 0.5mg IVP Q4H PRN Status: Chronic (10) Prophylactic measure Assessment and Plan: Heart healthy diet Protonix 40mg PO QD SCDs contraindicated 2/2 peripheral ischemic disease VTE contraindicated 2/2 to elevated PT and allergy to various blood thinners ( on high dose aspirin) Status: Acute <Lane Farr P - Last Filed: 11/29/17 00:38> Results - Vital Signs Recent Vital Signs: Last Vital Signs Temp 97.7 F 11/28/17 17:58 Pulse 105 H 11/28/17 23:15 Resp 16 11/28/17 23:15 BP 108/85 11/28/17 23:15 Pulse Ox 98 11/28/17 21:39 - Labs Result Diagrams: 11/28/17 18:28 11/28/17 20:34 Labs: Laboratory Results - last 24 hr 11/28/17 11/28/17 11/28/17 17:46 18:28 18:35 WBC 9.5 RBC 5.00 Hgb 13.5 Hct 41.4 MCV 82.9 MCH 27.0 MCHC 32.5 L RDW 18.6 H Plt Count 224 MPV 8.2 Neut % (Auto) 75.3 H Lymph % (Auto) 11.7 L Cro[place] % (Auto) 9.5 Eos % (Auto) 2.6 Baso % (Auto) 0.9 Neut # 7.1 H Lymph # 1.1 Crook # 0.9 H Eos # 0.2 Baso # 0.1 PT 15.0 H INR 1.3 APTT 37 H Sodium Potassium Chloride Carbon Dioxide Anion Gap BUN Creatinine Est GFR ( Amer) Est GFR (Non-Af Amer) Random Glucose Calcium Total Bilirubin AST ALT Alkaline Phosphatase Troponin I NT-Pro-B Natriuret Pep Total Protein Albumin Globulin Albumin/Globulin Ratio Urine Color Urine Clarity Urine pH Ur Specific [place] Urine Protein Urine Glucose (UA) Urine Ketones Urine Blood Urine Nitrate Urine Bilirubin Urine Urobilinogen Ur Leukocyte Esterase Urine WBC (Auto) Urine RBC (Auto) Urine Bacteria Digoxin Urine Opiates Screen Urine Methadone Screen Ur Barbiturates Screen Ur Phencyclidine Scrn Ur Amphetamines Screen U Benzodiazepines Scrn U Oth Cocaine Metabols U Cannabinoids Screen Influenza Typ A,B (EIA) Negative for flu a/b 11/28/17 11/28/17 11/28/17 20:08 20:08 20:34 WBC RBC Hgb Hct MCV MCH MCHC RDW Plt Count MPV Neut % (Auto) Lymph % (Auto) [place] % (Auto) Eos % (Auto) Baso % (Auto) Neut # Lymph # [place] # Eos # Baso # PT INR APTT Sodium 131 L Potassium 4.2 Chloride 99 Carbon Dioxide 24 Anion Gap 12 BUN 18 Creatinine 0.8 Est GFR ( Amer) > 60 Est GFR (Non-Af Amer) > 60 Random Glucose 77 Calcium 8.4 L Total Bilirubin 0.9 AST 46 ALT 33 Alkaline Phosphatase 64 Troponin I 0.0600 NT-Pro-B Natriuret Pep 6810 H Total Protein 7.8 Albumin 3.7 Globulin 4.1 H Albumin/Globulin Ratio 0.9 L Urine Color Straw Urine Clarity Clear Urine pH 5.0 Ur Specific [place] 1.005 Urine Protein Negative Urine Glucose (UA) Normal Urine Ketones Negative Urine Blood Negative Urine Nitrate Negative Urine Bilirubin Negative Urine Urobilinogen Normal Ur Leukocyte Esterase Neg Urine WBC (Auto) < 1 Urine RBC (Auto) < 1 Urine Bacteria Rare Digoxin Urine Opiates Screen Negative Urine Methadone Screen Negative Ur Barbiturates Screen Negative Ur Phencyclidine Scrn Negative Ur Amphetamines Screen Negative U Benzodiazepines Scrn Negative U Oth Cocaine Metabols Positive H U Cannabinoids Screen Negative Influenza Typ A,B (EIA) 11/28/17 20:37 WBC RBC Hgb Hct MCV MCH MCHC RDW Plt Count MPV Neut % (Auto) Lymph % (Auto) [place] % (Auto) Eos % (Auto) Baso % (Auto) Neut # Lymph # [place] # Eos # Baso # PT INR APTT Sodium Potassium Chloride Carbon Dioxide Anion Gap BUN Creatinine Est GFR ( Amer) Est GFR (Non-Af Amer) Random Glucose Calcium Total Bilirubin AST ALT Alkaline Phosphatase Troponin I NT-Pro-B Natriuret Pep Total Protein Albumin Globulin Albumin/Globulin Ratio Urine Color Urine Clarity Urine pH Ur Specific [place] Urine Protein Urine Glucose (UA) Urine Ketones Urine Blood Urine Nitrate Urine Bilirubin Urine Urobilinogen Ur Leukocyte Esterase Urine WBC (Auto) Urine RBC (Auto) Urine Bacteria Digoxin 0.7 L Urine Opiates Screen Urine Methadone Screen Ur Barbiturates Screen Ur Phencyclidine Scrn Ur Amphetamines Screen U Benzodiazepines Scrn U Oth Cocaine Metabols U Cannabinoids Screen Influenza Typ A,B (EIA) Attending/Attestation - Attestation I have personally seen and examined this patient.: Yes I have fully participated in the care of the patient.: Yes I have reviewed all pertinent clinical information: Yes Notes (Text): Assessment Atypical chest pain reporducible with palpation in left lower ribs laterally , suspected muscle strain, probably started from cough Afib with episodes of tachycardia Volume overload as from CXR interstitial edema and leg edema CAD 4 stents 1630-1146, with ischemic cardiomyopathy EF 25%, not good candidate for stents due to allergy to plavix H/o splenic and abd wall hematoma in later half of 2016 COPD 40 yrs of smoking stopped 12 months H/o severe DJD of spine, right knee, s/p recent steroid injection, ambulatory dysfunction with h/o fall recent 3 days back with echymosis under left eye H/o chronic percocet use of back pain H/o cocaine abuse as per patient about once a month, to control pain last time about 2 wks ago. Plan Serial enzymes Dilaudid, zofran for pain control Home meds for afib, hold on coreg, temporary increase cardizem from 30 to 60 qid, due to cocaine in system IV diuresis with lasix due to edema, continue spirnolactone See orders for detail patient allergic to lovenox, heparin I think it was due to complication of intramuscular bleed and splenic hematoma rather actual allergy, will try to confirm form primary team Dr. Ocampo, but on vacation, continue with asa for now.
--- NOTE | 2017-11-29 00:38 | CP.PCM.PN ---
Subjective - Date & Time of Evaluation Date of Evaluation: 11/28/17 Time of Evaluation: 23:00 - Subjective Subjective: Assessment * Atypical chest pain reporducible with palpation in left lower ribs laterally, suspected muscle strain, probably started from cough * Afib with episodes of tachycardia * Volume overload as from CXR interstitial edema and leg edema * CAD 4 stents 5290-2225, with ischemic cardiomyopathy EF 25%, not good candidate for stents due to allergy to plavix * H/o splenic and abd wall hematoma in later half of 2016 * COPD 40 yrs of smoking stopped 12 months * H/o severe DJD of spine, right knee, s/p recent steroid injection, ambulatory dysfunction with h/o fall recent 3 days back with echymosis under left eye * H/o chronic percocet use of back pain * H/o cocaine abuse as per patient about once a month, to control pain last time about 2 wks ago. Plan * Serial enzymes * Dilaudid, zofran for pain control * Home meds for afib, hold on coreg, temporary increase cardizem from 30 to 60 qid, due to cocaine in system * IV diuresis with lasix due to edema, continue spirnolactone * See orders for detail * patient allergic to lovenox, heparin I think it was due to complication of intramuscular bleed and splenic hematoma rather actual allergy, will try to confirm form primary team Dr. Ocampo, but on vacation, continue with asa for now. Objective - Vital Signs/Intake and Output Vital Signs (last 24 hours): Temp Pulse Resp BP Pulse Ox 97.7 F 105 H 16 108/85 98 11/28/17 17:58 11/28/17 23:15 11/28/17 23:15 11/28/17 23:15 11/28/17 21:39 - Medications Medications: Current Medications Alprazolam (Xanax) 1 mg PO Q6 PRN PRN Reason: Anxiety Last Admin: 11/29/17 00:09 Dose: 1 mg Aspirin (Ecotrin) 325 mg PO DAILY JEIMY Digoxin (Lanoxin) 0.125 mg PO DAILY@1800 [facility] Diltiazem HCl (Cardizem) 60 mg PO QID [facility] Enalapril Maleate (Vasotec) 10 mg PO DAILY [facility] Fluoxetine HCl (Prozac) 40 mg PO DAILY [facility] Furosemide (Lasix) 40 mg IVP BID [facility] Gabapentin (Neurontin) 300 mg PO BID [facility] Last Admin: 11/29/17 00:08 Dose: Not Given Hydromorphone HCl (Dilaudid) 0.5 mg IVP Q4H PRN PRN Reason: Pain, severe (8-10) Last Admin: 11/29/17 00:09 Dose: 0.5 mg Montelukast Sodium (Singulair) 10 mg PO HS [facility] Nicotine (Nicoderm Cq) 1 patch TD DAILY [facility] Ondansetron HCl (Zofran Inj) 4 mg IVP Q6 PRN PRN Reason: Nausea/Vomiting Last Admin: 11/29/17 00:17 Dose: 4 mg Pantoprazole Sodium (Protonix Ec Tab) 40 mg PO DAILY [facility] Rosuvastatin Calcium (Crestor) 5 mg PO HS [facility] Fluticasone/Salmeterol (Advair Diskus 250/50) 1 puff INH RQ12 [facility] Spironolactone (Aldactone) 25 mg PO DAILY [facility] - Labs Labs: 11/28/17 18:28 11/28/17 20:34 PT 15.0 SECONDS (9.7-12.2) H 11/28/17 18:35 INR 1.3 11/28/17 18:35 APTT 37 SECONDS (21-34) H 11/28/17 18:35
[2017-11-29] MEDS: Oxycodone/Acetaminophen 5/325 mg Tab PO PRN ×5 (01:11→21:52)
[2017-11-29] MEDS ORDERED: Fluticasone-Salmeterol 250-50mcg Diskus INH SCH (08:00)
--- NOTE | 2017-11-29 08:23 | RAD ---
PROCEDURE: CHEST RADIOGRAPH, 1 VIEW HISTORY: SOB COMPARISON: Comparison is made to 11/07/2017 FINDINGS: LUNGS: [id number] pulmonary vascular congestion is noted slightly improved compared to the previous exam. PLEURA: No pneumothorax or pleural fluid seen. CARDIOVASCULAR: Cardiomegaly is again noted. OSSEOUS STRUCTURES: No significant abnormalities. VISUALIZED UPPER ABDOMEN: Normal. OTHER FINDINGS: None. IMPRESSION: CHF and [id number] pulmonary vascular congestion.
--- NOTE | 2017-11-29 09:06 | CP.PCM.PN ---
Subjective - Date & Time of Evaluation Date of Evaluation: 11/29/17 Time of Evaluation: 08:50 - Subjective Subjective: I had a brief conversation with the patient. He complained that he was on a heart healthy diet. He does not want to be on this. We explained that considering his poor heart function it was a better idea while he was here to have that diet. He also does not want to wear the residential monitor. He is still using cocaine. He claims the last time was 2 weeks ago. The UDS is still positive. He has ongoing left chest pain - he says after he fell down. He also reports ongoing palpitations. He is on ativan as well as PO cardizem. He has allergies to many things including NOAC, Plavix, Lovenox, etc. He is high risk for cardiac/embolic events given his history. I DID NOT PHYSICALLY Examin the patient due to me not feeling comfortable given the patient's history of belligerence Objective - Vital Signs/Intake and Output Vital Signs (last 24 hours): Temp Pulse Resp BP Pulse Ox 97.4 F L 96 H 20 127/89 96 11/29/17 00:20 11/29/17 07:30 11/29/17 00:20 11/29/17 05:00 11/29/17 00:20 Intake and Output: 11/29/17 11/29/17 06:59 18:59 Intake Total 200 Balance 200 - Medications Medications: Current Medications Alprazolam (Xanax) 1 mg PO Q6 PRN PRN Reason: Anxiety Last Admin: 11/29/17 05:27 Dose: 1 mg Aspirin (Ecotrin) 325 mg PO DAILY [facility] Digoxin (Lanoxin) 0.125 mg PO DAILY@1800 [facility] Diltiazem HCl (Cardizem) 60 mg PO QID [facility] Diphenhydramine HCl (Benadryl) 50 mg PO Q6 [facility] Last Admin: 11/29/17 05:27 Dose: 50 mg Enalapril Maleate (Vasotec) 10 mg PO DAILY [facility] Fluoxetine HCl (Prozac) 40 mg PO DAILY [facility] Furosemide (Lasix) 40 mg IVP BID [facility] Gabapentin (Neurontin) 300 mg PO BID [facility] Last Admin: 11/29/17 00:08 Dose: Not Given Hydromorphone HCl (Dilaudid) 0.5 mg IVP Q4H PRN PRN Reason: Pain, severe (8-10) Last Admin: 11/29/17 08:09 Dose: 0.5 mg Montelukast Sodium (Singulair) 10 mg PO HS [facility] Nicotine (Nicoderm Cq) 1 patch TD DAILY [facility] Ondansetron HCl (Zofran Inj) 4 mg IVP Q6 PRN PRN Reason: Nausea/Vomiting Last Admin: 11/29/17 00:17 Dose: 4 mg Oxycodone/Acetaminophen (Percocet 5/325 Mg Tab) 1 tab PO Q4 PRN PRN Reason: Pain, Mild (1-3) Stop: 12/02/17 01:03 Last Admin: 11/29/17 05:27 Dose: 1 tab Pantoprazole Sodium (Protonix Ec Tab) 40 mg PO DAILY [facility] Rosuvastatin Calcium (Crestor) 5 mg PO HS [facility] Fluticasone/Salmeterol (Advair Diskus 250/50) 1 puff INH RQ12 [facility] Spironolactone (Aldactone) 25 mg PO DAILY [facility] - Labs Labs: 11/28/17 18:28 11/28/17 20:34 PT 15.0 SECONDS (9.7-12.2) H 11/28/17 18:35 INR 1.3 11/28/17 18:35 APTT 37 SECONDS (21-34) H 11/28/17 18:35 Assessment and Plan - Assessment and Plan (Free Text) Assessment: Assessment & Plan (1) Atrial fibrillation with rapid ventricular response Assessment and Plan: 11/29: He is again refusing the residential monitor. We had another conversation about cocaine use. His UDS is still with cocaine. He is high risk for cardio/embolic events because he cannot (or more likely will not) take things such Plavix, Lovenox, Xaretlo etc In the mean time we will control HR with ativan or extra Cardizem if necessary. Currently rate controlled Con't home med digoxin 0.125mg PO QD Con't home med aspirin 325mg PO QD (allergy to apixaban, clopidogrel, enoxaprin) Con't home med cardizem 60mg PO QID (2) History of CHF (congestive heart failure) Assessment and Plan: 11/29: He does not want an ICD. He is still taking cocaine. He even was upset over a heart healthy diet. Poor prognosis given his steadfast behavior to acknowledge his heart problems Systolic CHF Echo 02/2017: LVSF SEVERELY REDUCED, Severe global hypokinesis of LV Cardiac Cath 03/2017: Lab report in chart however results could not be found Patient refuses ICD implant Hx of 4 stents Meds: Con't home med Spironolactone 25mg PO QD Furosemide 40mg IVP BID Con't home med enalapril 10mg PO QD Beta jenny contraindicated due to recent cocaine use Status: Chronic (3) Chest pain Assessment and Plan: Reproducible to palpation; worse during deep inspiration; per patient, provoked by panic attack Trop x1 negative; F/U AM Trop F/U CXR Status: Acute (4) History of coronary artery disease Assessment and Plan: Cardiac Cath 03/2017: Lab report in chart however results could not be found Patient refuses ICD implant Hx of 4 stents Meds: Con't home med Aspirin 325mg PO QD Con't home med Crestor 5mg PO HS Status: Acute (5) Cocaine abuse Assessment and Plan: Avoid BB, if he has rapid Atrial fibrillation use IV ativan or cardizem. This being said he is refusing telemetry UDS (+) for cocaine Patient states last use was 11/12 Beta blockers are contraindicated HOLD home med Coreg (6) Chronic obstructive pulmonary disease (COPD) Assessment and Plan: 40 year smoking history F/U CXR Con't home med Montelukast 10mg PO HS Advair Diskus (home med Symbicort not carried in house) (7) Tobacco use disorder Assessment and Plan: 40 year smoking history Nicotine patch TD QD (8) Anxiety and depression Assessment and Plan: Con't home med Xanax 1mg PO Q6H PRN Con't home med Prozac 40mg PO QD (9) Lumbar disc disease Assessment and Plan: Osteophytes seen on prior imaging in Lumbar vertebrae Dilaudid 0.5mg IVP Q4H PRN (10) Prophylactic measure Assessment and Plan: Heart healthy diet Protonix 40mg PO QD SCDs contraindicated 2/2 peripheral ischemic disease VTE contraindicated 2/2 to elevated PT and allergy to various blood thinners ( on high dose aspirin)
[2017-11-29] MEDS ORDERED: Pantoprazole 40 mg EC Tab PO SCH (10:00)
[2017-11-29] MEDS ORDERED: Aspirin 325 mg EC Tablets PO SCH (10:00)
[2017-11-29 10:46] LABS: BASO # 0.1 K/uL (0.0-0.2); BASO % 0.8 % (0.0-2.0); EOS # 0.3 K/uL (0.0-0.7); EOS % 3.3 % (0.0-4.0); HEMOGLOBIN 13.8 g/dL (12.0-18.0); LYMPH % 21.3 % (20.0-40.0); MEAN CELL VOLUME 84.5 fL (80.0-94.0); MEAN CORPUSCULAR HEMOGLOBIN 27.4 pg (27.0-31.0); MEAN CORPUSCULAR HGB CONC 32.4 g/dL (33.0-37.0); MEAN PLATELET VOLUME 8.2 fL (7.2-11.7); MONO # 1.1 K/uL (0.0-0.8); MONO % 11.4 % (0.0-10.0); NEUT % 63.2 % (50.0-75.0); NRBC % 0.1 % (0.0-2.0); RBC 5.03 Mil/uL (4.40-5.90); RED CELL DISTRIBUTION WIDTH 18.7 % (11.5-14.5); WHITE BLOOD COUNT 9.6 K/uL (4.8-10.8)
[2017-11-29 10:54] LABS: ALB/GLOB RATIO 0.9 (1.0-2.1); ALBUMIN 4.1 g/dL (3.5-5.0); ALT/SGPT 32 U/L (21-72); AST/SGOT 34 U/L (17-59); BLOOD UREA NITROGEN 25 mg/dL (9-20); CALCIUM 8.5 mg/dl (8.6-10.4); GFR AFRICAN-AMERICAN > 60; GFR NON-AFRICAN AMERICAN > 60
[2017-11-29 11:05] LABS: CK-MB 6.83 ng/mL (0.0-3.38); TROPONIN I 0.066 ng/mL (0.00-0.120)
[2017-11-29 17:12] VITALS: RESP 20
[2017-11-29 17:46] VITALS: PULSE 64
[2017-11-29] MEDS ORDERED: Digoxin 125 mcg (0.125 mg) Tab PO SCH (18:00)
[2017-11-30] MEDS: Oxycodone/Acetaminophen 5/325 mg Tab PO PRN (01:50)
--- NOTE | 2017-11-30 07:41 | PCM.FALL ---
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 Patient had witnessed fall where he braced himself with his arms and avoided hitting his head. He had scrapes to his right elbow and right knee. Post fall, patient was awake, alert, and oriented x3. Patient's neuro exam and overall physical exam remained unchanged from prior examinations. Vitals at bedside: Temp: 98.4 degrees, 113/57 BP, 51 pulse. - Post Fall Exam Vital Sign: Temp Pulse Resp BP Pulse Ox 98 F 53 L 20 103/53 L 97 11/30/17 03:37 11/30/17 05:50 11/30/17 05:50 11/30/17 05:50 11/30/17 03:37 Skull Exam: Negative for: Scalp wound, Scalp hematoma, Scalp depression, Ridge in skull Eye Exam: Positive for: Pupils equal. Negative for: Pupils reactive (pinpoint pupils. patient on opiate medications.) Ear Exam: Negative for: Discharge, Bleeding Nose Exam: Negative for: Discharge, Bleeding Skin Exam: Positive for: Grazes (right elbow and right knee). Negative for: Colour, Lacerations, Bruising Mouth Exam: Negative for: Tongue bitten, Teeth dislodge Neck Exam: Negative for: Tenderness, Tingling, Weakness Spinal Exam: Negative for: Tenderness, Tingling, Weakness Chest Exam: Negative for: Difficulty breathing, Tenderness in collar bones, Tenderness in ribs Abdomen Exam: Negative for: Tenderness Pelvic Exam: Negative for: Tenderness, Hematuria Arm Exam: Negative for: Deformity, Alteration in range of movement Leg Exam: Negative for: Deformity, Alteration in range of movement Impression/Plan: Assessment/Plan: Witnessed mechanical fall. Patient did not hit his head, and physical exam unremarkable. No imaging at this time.
[2017-11-30 08:12] LABS: BASO # 0.1 K/uL (0.0-0.2); BASO % 0.7 % (0.0-2.0); EOS # 0.1 K/uL (0.0-0.7); EOS % 0.9 % (0.0-4.0); HEMOGLOBIN 13.6 g/dL (12.0-18.0); LYMPH # 1.3 K/uL (1.0-4.3); LYMPH % 12.2 % (20.0-40.0); MEAN CELL VOLUME 84.9 fL (80.0-94.0); MEAN CORPUSCULAR HEMOGLOBIN 27.6 pg (27.0-31.0); MEAN CORPUSCULAR HGB CONC 32.5 g/dL (33.0-37.0); MEAN PLATELET VOLUME 8.1 fL (7.2-11.7); MONO # 1.4 K/uL (0.0-0.8); MONO % 13.9 % (0.0-10.0); NEUT # 7.4 K/uL (1.8-7.0); NEUT % 72.3 % (50.0-75.0); RBC 4.94 Mil/uL (4.40-5.90); RED CELL DISTRIBUTION WIDTH 18.5 % (11.5-14.5); WHITE BLOOD COUNT 10.3 K/uL (4.8-10.8)
--- NOTE | 2017-11-30 08:22 | CP.PCM.PN ---
Subjective - Date & Time of Evaluation Date of Evaluation: 11/30/17 Time of Evaluation: 08:00 - Subjective Subjective: Another person reportedly family member was at bedside. I asked the patient if it was ok to discuss with family around and he gave permission. We had a very usual discussion with regards to cocaine and also him being on narcotics. I explained to him we are going to hold the Dilaudid. His BP has been on the low side and early in the morning he fell. His BP readings are still relatively on the low side. Will also check a chest XRAY and possibly can decrease the lasix. As mentioned previously he has allergies to many things including NOAC, Plavix, Lovenox, etc. He is high risk for cardiac/embolic events given his history. Objective - Vital Signs/Intake and Output Vital Signs (last 24 hours): Temp Pulse Resp BP Pulse Ox 98.3 F 53 L 20 113/57 L 97 11/30/17 07:00 11/30/17 07:00 11/30/17 07:00 11/30/17 07:00 11/30/17 03:37 Intake and Output: 11/30/17 11/30/17 06:59 18:59 Intake Total 20 Balance 20 - Medications Medications: Current Medications Alprazolam (Xanax) 1 mg PO Q6 PRN PRN Reason: Anxiety Last Admin: 11/29/17 18:10 Dose: 1 mg Aspirin (Ecotrin) 325 mg PO DAILY [facility] Last Admin: 11/29/17 09:16 Dose: 325 mg Bacitracin (Bacitracin) 1 gm TOP Q12H [facility] Digoxin (Lanoxin) 0.125 mg PO DAILY@1800 [facility] Last Admin: 11/29/17 17:37 Dose: 0.125 mg Diltiazem HCl (Cardizem) 60 mg PO QID [facility] Enalapril Maleate (Vasotec) 10 mg PO DAILY [facility] Fluoxetine HCl (Prozac) 40 mg PO DAILY [facility] Last Admin: 11/29/17 09:18 Dose: 40 mg Furosemide (Lasix) 40 mg IVP BID [facility] Gabapentin (Neurontin) 300 mg PO BID [facility] Last Admin: 11/29/17 17:37 Dose: 300 mg Montelukast Sodium (Singulair) 10 mg PO HS [facility] Last Admin: 11/29/17 21:47 Dose: 10 mg Nicotine (Nicoderm Cq) 1 patch TD DAILY [facility] Last Admin: 11/29/17 09:33 Dose: 1 patch Ondansetron HCl (Zofran Inj) 4 mg IVP Q6 PRN PRN Reason: Nausea/Vomiting Last Admin: 11/30/17 03:35 Dose: 4 mg Oxycodone/Acetaminophen (Percocet 5/325 Mg Tab) 1 tab PO Q4 PRN PRN Reason: Pain, Mild (1-3) Stop: 12/02/17 01:03 Last Admin: 11/30/17 01:50 Dose: 1 tab Pantoprazole Sodium (Protonix Ec Tab) 40 mg PO DAILY [facility] Last Admin: 11/29/17 09:17 Dose: 40 mg Rosuvastatin Calcium (Crestor) 5 mg PO HS [facility] Last Admin: 11/29/17 21:47 Dose: 5 mg Fluticasone/Salmeterol (Advair Diskus 250/50) 1 puff INH RQ12 [facility] Last Admin: 11/29/17 20:11 Dose: Not Given Spironolactone (Aldactone) 25 mg PO DAILY [facility] - Labs Labs: 11/29/17 10:33 11/29/17 10:33 PT 15.0 SECONDS (9.7-12.2) H 11/28/17 18:35 INR 1.3 11/28/17 18:35 APTT 37 SECONDS (21-34) H 11/28/17 18:35 - Constitutional Appears: Chronically Ill - Head Exam Head Exam: NORMAL INSPECTION - Eye Exam Eye Exam: EOMI, Normal appearance - ENT Exam ENT Exam: Mucous Membranes Moist, Normal Exam - Cardiovascular Exam Cardiovascular Exam: REGULAR RHYTHM - GI/Abdominal Exam GI & Abdominal Exam: Soft, Normal Bowel Sounds - Neurological Exam Neurological Exam: Alert, Awake, Oriented x3 Neuro motor strength exam: Left Upper Extremity: 5, Right Upper Extremity: 5 - Psychiatric Exam Psychiatric exam: Agitated, Anxious, Flat Affect Assessment and Plan - Assessment and Plan (Free Text) Assessment: Assessment & Plan (1) Atrial fibrillation with rapid ventricular response Assessment and Plan: 11/30: He is allowing wearing apartment maintenance. His HR has been in the 50s to 60s overnight as well as this morning. 11/29: He is again refusing the apartment maintenance. We had another conversation about cocaine use. His UDS is still with cocaine. He is high risk for cardio/embolic events because he cannot (or more likely will not) take things such Plavix, Lovenox, Xaretlo etc In the mean time we will control HR with ativan or extra Cardizem if necessary. Currently rate controlled Con't home med digoxin 0.125mg PO QD Con't home med aspirin 325mg PO QD (allergy to apixaban, clopidogrel, enoxaprin) Con't home med cardizem 60mg PO QID (2) History of CHF (congestive heart failure) Assessment and Plan: 11/30: Will check a portable chest XRAY, maybe can decrease the lasix 11/29: He does not want an ICD. He is still taking cocaine. He even was upset over a heart healthy diet. Poor prognosis given his steadfast behavior to acknowledge his heart problems Systolic CHF Echo 02/2017: LVSF SEVERELY REDUCED, Severe global hypokinesis of LV Cardiac Cath 03/2017: Lab report in chart however results could not be found Patient refuses ICD implant Hx of 4 stents Meds: Con't home med Spironolactone 25mg PO QD Furosemide 40mg IVP BID Con't home med enalapril 10mg PO QD Beta jenny contraindicated due to recent cocaine use (3) Chest pain Assessment and Plan: Reproducible to palpation; worse during deep inspiration; per patient, provoked by panic attack (4) History of coronary artery disease Assessment and Plan: Cardiac Cath 03/2017: Lab report in chart however results could not be found Patient refuses ICD implant Hx of 4 stents Meds: Con't home med Aspirin 325mg PO QD Con't home med Crestor 5mg PO HS (5) Cocaine abuse Assessment and Plan: Avoid BB, if he has rapid Atrial fibrillation use IV ativan or cardizem. This being said he is refusing telemetry UDS (+) for cocaine Patient states last use was 11/12 Beta blockers are contraindicated HOLD home med Coreg (6) Chronic obstructive pulmonary disease (COPD) Assessment and Plan: 40 year smoking history Con't home med Montelukast 10mg PO HS Advair Diskus (home med Symbicort not carried in house) (7) Tobacco use disorder Assessment and Plan: 40 year smoking history Nicotine patch TD QD (8) Anxiety and depression Assessment and Plan: Con't home med Xanax 1mg PO Q6H PRN Con't home med Prozac 40mg PO QD (9) Lumbar disc disease Assessment and Plan: Osteophytes seen on prior imaging in Lumbar vertebrae Dilaudid 0.5mg IVP Q4H PRN (10) Prophylactic measure Assessment and Plan: Heart healthy diet Protonix 40mg PO QD SCDs contraindicated 2/2 peripheral ischemic disease VTE contraindicated 2/2 to elevated PT and allergy to various blood thinners ( on high dose aspirin)
[2017-11-30 08:29] VITALS: BP 81/53; PULSE 57; TEMP 98.1; O2SAT 100
[2017-11-30 08:40] LABS: CALCIUM 8.2 mg/dl (8.6-10.4)
[2017-11-30] MEDS ORDERED: Bacitracin Ointment 30 GM TUBE TOP SCH (09:00)
--- NOTE | 2017-11-30 09:03 | CP.PCM.DIS ---
Provider - Provider Date of Admission: 11/28/17 21:33 Attending physician: Lane Farr MD Time Spent in preparation of Discharge (in minutes): 29 Hospital Course - Lab Results Lab Results: Most Recent Lab Values WBC 10.3 K/uL (4.8-10.8) 11/30/17 08:07 RBC 4.94 Mil/uL (4.40-5.90) 11/30/17 08:07 Hgb 13.6 g/dL (12.0-18.0) 11/30/17 08:07 Hct 42.0 % (35.0-51.0) 11/30/17 08:07 MCV 84.9 fL (80.0-94.0) 11/30/17 08:07 MCH 27.6 pg (27.0-31.0) 11/30/17 08:07 MCHC 32.5 g/dL (33.0-37.0) L 11/30/17 08:07 RDW 18.5 % (11.5-14.5) H 11/30/17 08:07 Plt Count 248 K/uL (130-400) 11/30/17 08:07 MPV 8.1 fL (7.2-11.7) 11/30/17 08:07 Neut % (Auto) 72.3 % (50.0-75.0) 11/30/17 08:07 Lymph % (Auto) 12.2 % (20.0-40.0) L 11/30/17 08:07 [place] % (Auto) 13.9 % (0.0-10.0) H 11/30/17 08:07 Eos % (Auto) 0.9 % (0.0-4.0) 11/30/17 08:07 Baso % (Auto) 0.7 % (0.0-2.0) 11/30/17 08:07 Neut # 7.4 K/uL (1.8-7.0) H 11/30/17 08:07 Lymph # 1.3 K/uL (1.0-4.3) 11/30/17 08:07 [place] # 1.4 K/uL (0.0-0.8) H 11/30/17 08:07 Eos # 0.1 K/uL (0.0-0.7) 11/30/17 08:07 Baso # 0.1 K/uL (0.0-0.2) 11/30/17 08:07 PT 15.0 SECONDS (9.7-12.2) H 11/28/17 18:35 INR 1.3 11/28/17 18:35 APTT 37 SECONDS (21-34) H 11/28/17 18:35 Sodium 129 mmol/L (132-148) L 11/30/17 08:07 Potassium 5.9 mmol/L (3.6-5.2) H 11/30/17 08:07 Chloride 91 mmol/L (98-107) L 11/30/17 08:07 Carbon Dioxide 26 mmol/L (22-30) 11/30/17 08:07 Anion Gap 18 (10-20) 11/30/17 08:07 BUN 44 mg/dL (9-20) H 11/30/17 08:07 Creatinine 2.5 mg/dL (0.8-1.5) H 11/30/17 08:07 Est GFR ( Amer) 33 11/30/17 08:07 Est GFR (Non-Af Amer) 28 11/30/17 08:07 POC Glucose (mg/dL) 101 mg/dL (65-110) 11/30/17 07:14 Random Glucose 109 mg/dL (75-110) 11/30/17 08:07 Calcium 8.2 mg/dl (8.6-10.4) L 11/30/17 08:07 Total Bilirubin 0.8 mg/dL (0.2-1.3) 11/30/17 08:07 AST 53 U/L (17-59) 11/30/17 08:07 ALT 37 U/L (21-72) 11/30/17 08:07 Alkaline Phosphatase 72 U/L (38-126) 11/30/17 08:07 Total Creatine Kinase 148 U/L (55-170) 11/29/17 10:33 CK-MB (Mass) 6.83 ng/mL (0.0-3.38) H 11/29/17 10:33 Troponin I 0.0660 ng/mL (0.00-0.120) 11/29/17 10:33 NT-Pro-B Natriuret Pep 6810 pg/mL (0-450) H 11/28/17 20:34 Total Protein 8.0 g/dL (6.3-8.3) 11/30/17 08:07 Albumin 4.0 g/dL (3.5-5.0) 11/30/17 08:07 Globulin 4.0 gm/dL (2.2-3.9) H 11/30/17 08:07 Albumin/Globulin Ratio 1.0 (1.0-2.1) 11/30/17 08:07 Urine Color Straw (YELLOW) 11/28/17 20:08 Urine Clarity Clear (Clear) 11/28/17 20:08 Urine pH 5.0 (5.0-8.0) 11/28/17 20:08 Ur Specific [place] 1.005 (1.003-1.030) 11/28/17 20:08 Urine Protein Negative mg/dL (NEGATIVE) 11/28/17 20:08 Urine Glucose (UA) Normal mg/dL (Normal) 11/28/17 20:08 Urine Ketones Negative mg/dL (NEGATIVE) 11/28/17 20:08 Urine Blood Negative (NEGATIVE) 11/28/17 20:08 Urine Nitrate Negative (NEGATIVE) 11/28/17 20:08 Urine Bilirubin Negative (NEGATIVE) 11/28/17 20:08 Urine Urobilinogen Normal mg/dL (0.2-1.0) 11/28/17 20:08 Ur Leukocyte Esterase Neg Nancie/uL (Negative) 11/28/17 20:08 Urine WBC (Auto) < 1 /hpf (0-5) 11/28/17 20:08 Urine RBC (Auto) < 1 /hpf (0-3) 11/28/17 20:08 Urine Bacteria Rare (<OCC) 11/28/17 20:08 Digoxin 0.8 ng/mL (0.8-2.0) 11/29/17 10:33 Urine Opiates Screen Negative (NEGATIVE) 11/28/17 20:08 Urine Methadone Screen Negative (NEGATIVE) 11/28/17 20:08 Ur Barbiturates Screen Negative (NEGATIVE) 11/28/17 20:08 Ur Phencyclidine Scrn Negative (NEGATIVE) 11/28/17 20:08 Ur Amphetamines Screen Negative (NEGATIVE) 11/28/17 20:08 U Benzodiazepines Scrn Negative (NEGATIVE) 11/28/17 20:08 U Oth Cocaine Metabols Positive (NEGATIVE) H 11/28/17 20:08 U Cannabinoids Screen Negative (NEGATIVE) 11/28/17 20:08 Influenza Typ A,B (EIA) Negative for flu a/b (NEGATIVE) 11/28/17 17:46 - Hospital Course Hospital Course: This is a 47 year old male who is well known to everyone in the hospital. He often comes to the ER with chest pain or shortness of breath. There is repeat use of cocaine despite us telling him that he is high risk of cardiac/embolic events. He often is here with rapid atrial fibrillation and CHF This time was no different - he had a CXRAY that suggested CHF and was short of breath. He reported chest pain as well. He says he does not think that cocaine is a problem and further more he does not want to use NOAC, Plavix, Lovenox, etc etc He often refuses telemetry while here. He today had someone in the room - who I and none of the staff recognize. Later he did not want the [employer] monitoring system in the room and pushed it out of the room. We do not know if there are street drugs being brought into the hospital and if this person who came into his room is - if this person was bringing him something. Patient is walking in the hallway and came out to argue with us at the nurses station. We will discharge the patient today. Discharge Exam - Head Exam Head Exam: NORMAL INSPECTION - Respiratory Exam Respiratory Exam: NORMAL BREATHING PATTERN - Cardiovascular Exam Cardiovascular Exam: Irregular Rhythm - Psychiatric Exam Psychiatric exam: Agitated - Skin Skin Exam: Normal Color, Warm Discharge Plan - Follow Up Plan Condition: FAIR Disposition: HOME/ ROUTINE
--- NOTE | 2017-12-01 12:45 | CARD ---
APPROVED REPORT EKG Measurement Heart [id number] <Conclusion> Atrial fibrillation with rapid ventricular response Pulmonary disease pattern RSR' or QR pattern in V1 suggests right ventricular conduction delay Left anterior fascicular block Inferior infarct, age undetermined ST & T wave abnormality, consider lateral ischemia Abnormal ECG
== END 2017-11-30 09:57 | disposition home or self-care (01) | DRG 309 ==
LOC: C.ER 17:46 → C.9E 21:33 → C.6T 22:33
PROVIDERS: ADMIT Internal Medicine; ATTEND Internal Medicine
DX: I48.91 Unspecified atrial fibrillation (principal); I50.22 Chronic systolic (congestive) heart failure; I42.0 Dilated cardiomyopathy; I11.0 Hypertensive heart disease with heart failure; E78.5 Hyperlipidemia, unspecified; J44.9 Chronic obstructive pulmonary disease, unspecified; M51.9 Unspecified thoracic, thoracolumbar and lumbosacral intervertebral disc disorder; R79.1 Abnormal coagulation profile; Z79.82 Long term (current) use of aspirin; Z82.49 Family history of ischemic heart disease and other diseases of the circulatory system; Z83.3 Family history of diabetes mellitus; Z87.01 Personal history of pneumonia (recurrent); Z95.5 Presence of coronary angioplasty implant and graft; M19.90 Unspecified osteoarthritis, unspecified site; M54.5 Low back pain; R10.9 Unspecified abdominal pain; M47.9 Spondylosis, unspecified; M17.11 Unilateral primary osteoarthritis, right knee; E78.00 Pure hypercholesterolemia, unspecified; F14.10 Cocaine abuse, uncomplicated; F17.210 Nicotine dependence, cigarettes, uncomplicated; F31.9 Bipolar disorder, unspecified; F41.0 Panic disorder [episodic paroxysmal anxiety]; G89.29 Other chronic pain; I25.10 Atherosclerotic heart disease of native coronary artery without angina pectoris; I25.5 Ischemic cardiomyopathy

== ENCOUNTER 2017-12-11 16:20 | Inpatient (IN) | payer MEDICARE, MEDICAID ==
[2017-12-11 16:21] VITALS: BMI 38.7
[2017-12-11] MEDS ORDERED: Oxycodone/Acetaminophen 5/325 mg Tab PO STA (17:11)
[2017-12-11 17:13] LABS: BASO # 0.2 K/uL (0.0-0.2); BASO % 1.3 % (0.0-2.0); EOS # 0.2 K/uL (0.0-0.7); EOS % 1.5 % (0.0-4.0); HEMOGLOBIN 15.1 g/dL (12.0-18.0); LYMPH # 1.2 K/uL (1.0-4.3); LYMPH % 8.4 % (20.0-40.0); MEAN CELL VOLUME 82.2 fL (80.0-94.0); MEAN CORPUSCULAR HEMOGLOBIN 27.2 pg (27.0-31.0); MEAN PLATELET VOLUME 7.7 fL (7.2-11.7); MONO # 1.4 K/uL (0.0-0.8); NEUT # 11.1 K/uL (1.8-7.0); NEUT % 78.8 % (50.0-75.0); NRBC % 0.1 % (0.0-2.0); PLATELET COUNT 323 K/uL (130-400); RBC 5.55 Mil/uL (4.40-5.90); RED CELL DISTRIBUTION WIDTH 17.6 % (11.5-14.5); WHITE BLOOD COUNT 14.1 K/uL (4.8-10.8)
--- NOTE | 2017-12-11 17:15 | C.PDOC ---
History Of Present Illness <Sharita Rinaldi - Last Filed: 12/11/17 19:27> <Moisés Jaeger - Last Filed: 12/13/17 13:22> Patient with history of AFib, asthma, anxiety, and systolic CHF, who presents to the ED with a complaint of migraine headache for 2 days which worsened yesterday. He states he has frequent headaches, and felt pressure behind left eye associated with blurred vision yesterday. He took percocet 5/325mg with transient relief. Patient reports to have developed midsternal chest pressure today, prompting ED visit. Patient admits to taking Percocet with relief of CP, but not the headache. Patient admits to being compliant with his medications, takes aspirin daily not on other anticoagulants; denies any SOB. (hSarita Rinaldi) History Per: Patient History/Exam Limitations: no limitations Onset/Duration Of Symptoms: Days (yesterday) Current Symptoms Are (Timing): Still Present Quality: Pressure Associated Symptoms: Nausea Recent travel outside of the [place]: No <Sharita Rinaldi - Last Filed: 12/11/17 19:27> <Moisés Jaeger - Last Filed: 12/13/17 13:22> Time Seen by Provider: 12/11/17 16:48 Chief Complaint (Nursing): Chest Pain Past Medical History Reviewed: Historical Data, Nursing Documentation, Vital Signs - Medical History PMH: Anxiety, Arthritis, Asthma, Atrial Fibrillation, Back Problems, Bipolar Disorder, CAD, Cardia Arrhythmia, CHF, COPD, Depression, HTN, Hypercholesterolemia, Peripheral Edema, Pneumonia, Sleep Apnea, Chronic Pain ( Lower Back Pain) Surgical History: Appendectomy (2008), Coronary Stent (2008 - 2012 4 stents) Family History: States: Unknown Family Hx, CAD, Diabetes - Social History Hx Tobacco Use: Yes Hx Alcohol Use: No Hx Substance Use: Yes (denies) - Immunization History Hx Tetanus Toxoid Vaccination: Yes Hx Influenza Vaccination: Yes Hx Pneumococcal Vaccination: Yes (08/2014) <Sharita Rinaldi - Last Filed: 12/11/17 19:27> Vital Signs: Last Vital Signs Temp 97.7 F 12/13/17 08:00 Pulse 83 12/13/17 08:00 Resp 20 12/13/17 08:00 BP 107/74 12/13/17 10:00 Pulse Ox 95 12/13/17 08:00 - [facility] Procedures CORONAR ARTERIOGR-2 CATH (07/06/13) DRAINAGE OF SPLEEN, PERCUTANEOUS APPROACH (03/05/17) INJECT/INFUSE NEC (02/22/14) LEFT HEART CARDIAC CATH (07/06/13) LT HEART ANGIOCARDIOGRAM (07/06/13) NEBULIZER THERAPY (03/28/14) NON-INVASIVE MECHANICAL VENTILATION (03/26/15) TRANSFUSE NONAUT FROZEN PLASMA IN PERIPH VEIN, PERC (02/21/17) Review Of Systems Cardiovascular: Positive for: Chest Pain (midsternal chest pressure) Gastrointestinal: Positive for: Nausea Neurological: Positive for: Headache, Dizziness <Sharita Rinaldi - Last Filed: 12/11/17 19:27> Physical Exam - Physical Exam Appears: Non-toxic, No Acute Distress, Other (eating sandwhich) Skin: Normal Color, Warm, Dry Head: Atraumatic, Normacephalic Eye(s): bilateral: Normal Inspection, PERRL, EOMI Nose: Normal Oral Mucosa: Moist Chest: Symmetrical, Tenderness (mildly tender to midsternal region) Cardiovascular: Rhythm Irregular (irregularly irregular), No Murmur Respiratory: Normal Breath Sounds, No Rales, No Rhonchi, No Wheezing Gastrointestinal/Abdominal: Soft, No Tenderness, Other (obese) Extremity: Pedal Edema (trace pedal edema to bilateral lower extremities) Neurological/Psych: Oriented x3, Normal Speech Gait: Unable To Assess (uses cane) <Sharita Rinaldi - Last Filed: 12/11/17 19:27> ED Course And Treatment - Laboratory Results Result Diagrams: 12/11/17 17:08 12/11/17 17:08 Lab Interpretation: No Acute Changes ECG: Interpreted By Me, Viewed By Me ECG Rhythm: Atrial Fibrillation ECG Interpretation: No Acute Changes Interpretation Of ECG: A fib at 90 bpm with right axis deviation, nonspecific T- wave abnormality. No changes from priors O2 Sat by Pulse Oximetry: 97 Pulse Ox Interpretation: Normal - Radiology CXR: Interpreted by Me, Viewed By Me CXR Interpretation: Yes: Cardiomegaly, Other (venous congestion) - CT Scan/US head CT Other Rad Studies (CT/US): Read By Radiologist, Radiology Report Reviewed CT/US Interpretation: PROCEDURE: CT HEAD WITHOUT CONTRAST. HISTORY: Headache. COMPARISON: Comparison made with prior CT scan brain 03/26/2015 None available. TECHNIQUE: Contiguous helical/transaxial l computed tomography images were obtained through the head/brain without intravenous contrast. Radiation dose: Total exam DLP = 1088.39 mGy-cm. This CT exam was performed using one or more of the following dose reduction techniques: Automated exposure control, adjustment of the mA and/or kV according to patient size, and/or use of iterative reconstruction technique. FINDINGS: HEMORRHAGE: See below. BRAIN: Large area of low attenuation involving the posteromedial right temporal lobe, right occipital pole and right thalamus consistent with subacute right SCUBA DIVING TEACHER territory infarct. . Questionable scattered areas of reperfusion hemorrhage. . There is a more chronic appearing infarct in the the left occipitoparietal watershed zone although new since prior exam. . Suspect minimal chronic periventricular white matter ischemic changes. VENTRICLES: No obstructive hydrocephalus . CALVARIUM: No acute calvarial fractures. PARANASAL SINUSES: Visualized paranasal sinuses well-developed. Mild moderate mucosal thickening left maxillary antrum. MASTOID AIR CELLS: Mastoid air complexes well-developed and currently well-aerated. OTHER FINDINGS: None. IMPRESSION: Subacute right SCUBA DIVING TEACHER territory infarct with questionable scattered areas of reperfusion hemorrhage. . There is a more chronic appearing infarct the left occipitoparietal watershed zone. . Suspect minimal chronic periventricular white matter ischemic changes. Note that these findings were discussed with emergency room REJI Rinaldi at approximately 5:45 p.m. with written down and read back verification. <Sharita Rinaldi - Last Filed: 12/11/17 19:27> - Laboratory Results Result Diagrams: 12/13/17 11:32 12/13/17 11:32 <Moisés Jaeger - Last Filed: 12/13/17 13:22> NIHSS Stroke Scale - Date/Time Evaluation Performed Date Performed: 12/11/17 Time Performed: 18:00 When Was NIHSS Performed: Baseline - How Severe is the Stoke Level of Consciousness: 0=Alert LOC to Questions: 0=Both comments correct LOC to commands: 0=Obeys both correctly Best Gaze: 0=Normal Visual: 1=Partial hemianopia (left) Facial: 0=Normal Motor Arm - Left: 0=No drift Motor Arm - Right: 0=No drift Motor Leg - Left: 0=No drift Motor Leg - Right: 0=No drift Limb Ataxia: 0=Absent Sensory: 0=Normal Best Language: 0=No aphasia Dysarthia: 0=Normal articulation Extinction & Inattention (Neglect): 0=Normal, no object Score: 1 Severity Of Stroke: 1-4= Minor Stroke <Sharita Rinaldi - Last Filed: 12/11/17 19:27> Medical Decision Making <Sharita Rinaldi - Last Filed: 12/11/17 19:27> <Moisés Jaeger - Last Filed: 12/13/17 13:22> Medical Decision Making: Plan: * Head CT * EKG * CXR * blood work * UA Patient requested pain and anxiety medication before any exams can be performed. Xanax and percocet were administered. [address] with [address] results Case discussed with ER attending who also examines patient at bedside. Consults for neuro and cardiology placed. Vitals remain stable. Patient alert and oriented, asking for hot tray of food. 1805 Dr Wang calls back ED, Dr Jaeger spoke with him and states no intervention at this time. Patient is not TPA candidate [address] Ocampo to make aware, and to call resident 1808 Dr Jaeger spoke with record pressman Jose Razo who requests MRI 1848 patient pending ICU consult and MRI 1900 Dr Razo in ED to evaluate patient, wants neuro consult and since MRI not available, possible CTA [address] Ocampo of ICU consult and pending neuro. Paged Dr Nevin Hurt 191 Dr Jaeger spoke with neurologist Dr Amilcar Hurt,who reports no immediate neuro intervention since there is bleed and 2 day old. Requests MRA and Keppra 1920 Dr Jaeger spoke again with Blister Pack Operator Dr Razo who accepts patient to ICU , but case going to Dr Machado, who was also made aware. (Sharita Rinaldi) Disposition Counseled Patient/Family Regarding: Need For Followup - Disposition Disposition Time: 19:28 - POA Present On Arrival: None <Sharita Rinaldi - Last Filed: 12/11/17 19:27> <Moisés Jaeger - Last Filed: 12/13/17 13:22> - Disposition Disposition: HOSPITALIZED Condition: FAIR - Clinical Impression Clinical Impression: Stroke, Acute right SCUBA DIVING TEACHER stroke, Chest pain, History of atrial fibrillation, History of chronic back pain - Scribe Statement The provider has reviewed the documentation as recorded by the Scribe <Sharita Rinaldi - Last Filed: 12/11/17 19:27> <Moisés Jaeger - Last Filed: 12/13/17 13:22> - Scribe Statement Cristina Kemp All medical record entries made by the Scribe were at my direction and personally dictated by me. I have reviewed the chart and agree that the record accurately reflects my personal performance of the history, physical exam, medical decision making, and the department course for this patient. I have also personally directed, reviewed, and agree with the discharge instructions and disposition. (Sharita Rinaldi) Decision To Admit - Pt Status Changed To: Hospital Disposition Of: Inpatient - Admit Certification Admit to Inpatient:: After my assessment, the patient will require hospitalization for at least two midnights. This is because of the severity of symptoms shown, intensity of services needed, and/or the medical risk in this patient being treated as an outpatient. - InPatient: Physician Admission Certification: I certify that this patient requires 2 or more midnights of care for the following reason:: Patient with history of Afib and abnormal CT showing right SCUBA DIVING TEACHER infarct with reperfusing hemorrhage. Patient has left sided hemianopsia. Patient requires neuro consult. - . Bed Request Type: ICU Admitting Physician: Roque Ocampo Jr. <Sharita Rinaldi - Last Filed: 12/11/17 19:27> <Moisés Jaeger - Last Filed: 12/13/17 13:22> - . Patient Diagnosis: Stroke, Acute right SCUBA DIVING TEACHER stroke, Chest pain, History of atrial fibrillation, History of chronic back pain
[2017-12-11] MEDS ORDERED: Oxycodone/Acetaminophen 5/325 mg Tab ONE (17:16)
[2017-12-11 17:35] LABS: ALB/GLOB RATIO 0.8 (1.0-2.1); ALBUMIN 4.2 g/dL (3.5-5.0); ALT/SGPT 6 U/L (21-72); AST/SGOT 72 U/L (17-59); BLOOD UREA NITROGEN 28 mg/dL (9-20); CALCIUM 8.4 mg/dl (8.6-10.4); GFR AFRICAN-AMERICAN > 60; GFR NON-AFRICAN AMERICAN > 60; HDL CHOLESTEROL 34 mg/dL (30-70)
[2017-12-11 17:36] LABS: INR 1.2; PROTHROMBIN TIME 13.9 SECONDS (9.7-12.2)
[2017-12-11 17:42] LABS: LDL CHOLESTEROL 71 mg/dL (0-129)
[2017-12-11 17:45] LABS: B-TYPE NATRIURETIC PEPTIDE 5990 pg/mL (0-450); CK-MB 3.25 ng/mL (0.0-3.38)
--- NOTE | 2017-12-11 17:52 | CT ---
PROCEDURE: CT HEAD WITHOUT CONTRAST. HISTORY: Headache. COMPARISON: Comparison made with prior CT scan brain 03/26/2015 None available. TECHNIQUE: Contiguous helical/transaxial l computed tomography images were obtained through the head/brain without intravenous contrast. Radiation dose: Total exam DLP = 1088.39 mGy-cm. This CT exam was performed using one or more of the following dose reduction techniques: Automated exposure control, adjustment of the mA and/or kV according to patient size, and/or use of iterative reconstruction technique. FINDINGS: HEMORRHAGE: See below. BRAIN: Large area of low attenuation involving the posteromedial right temporal lobe, right occipital pole and right thalamus consistent with subacute right CITRUS FRUIT COLORER territory infarct. . Questionable scattered areas of reperfusion hemorrhage. . There is a more chronic appearing infarct in the the left occipitoparietal watershed zone although new since prior exam. . Suspect minimal chronic periventricular white matter ischemic changes. VENTRICLES: No obstructive hydrocephalus . CALVARIUM: No acute calvarial fractures PARANASAL SINUSES: Visualized paranasal sinuses well-developed. Mild moderate mucosal thickening left maxillary antrum MASTOID AIR CELLS: Mastoid air complexes well-developed and currently well-aerated. OTHER FINDINGS: None IMPRESSION: Subacute right CITRUS FRUIT COLORER territory infarct with questionable scattered areas of reperfusion hemorrhage. . There is a more chronic appearing infarct the left occipitoparietal watershed zone. . Suspect minimal chronic periventricular white matter ischemic changes. Note that these findings were discussed with emergency room REJI Rinaldi at approximately 5:45 p.m. with written down and read back verification.
[2017-12-11 17:57] LABS: URINE BILIRUBIN NEGATIVE (NEGATIVE); URINE BLOOD NEGATIVE (NEGATIVE); URINE CLARITY Clear (Clear); URINE COLOR Yellow (YELLOW); URINE GLUCOSE (UA) NORMAL (Normal); URINE LEUKOCYTE ESTERASE NEG Leu/uL (Negative); URINE NITRATE NEGATIVE (NEGATIVE); URINE PROTEIN NEGATIVE (NEGATIVE); URINE UROBILINOGEN NORMAL mg/dL (0.2-1.0)
[2017-12-11 18:06] LABS: BARBITURATES, UR NEGATIVE (NEGATIVE); BENZODIAZEPINES, UR NEGATIVE (NEGATIVE); OPIATES, UR NEGATIVE (NEGATIVE); PHENCYCLIDINE, UR NEGATIVE (NEGATIVE)
[2017-12-11 18:11] LABS: EOSINOPHIL 1 % (0-4); LYMPHOCYTE 8 % (20-40); MONOCYTE 7 % (0-10); NEUTROPHIL 84 % (50-75); TOTAL CELLS COUNTED 100
[2017-12-11 18:12] LABS: ANISOCYTOSIS SLIGHT; PLATELET ESTIMATE NORMAL (NORMAL)
--- NOTE | 2017-12-11 20:30 | CP.PCM.CON ---
History of Present Illness - History of Present Illness History of Present Illness: 47 y/o with history of CAD s/p stents,AFib, CHF, asthma/COPD, anxiety, HTN, Hyperlipidemia, Chronic back pain presents to the ED with a complaint of headache,dizziness for 2 days which worsened yesterday. He states he has frequent headaches, and felt pressure behind left eye associated with blurred vision yesterday. He took percocet 5/325mg with transient relief. Patient reports to have developed midsternal chest pressure today. Patient admits to taking Percocet with relief of CP, but not the headache. Patient admits to being compliant with his medications, takes aspirin daily not on other anticoagulants; denies any SOB,abdominal pain. Denies visual loss(asked patient multiple times) ER physician spoke to the Neurologist while patient was in ER Patient is unco-operative with exam,wanting food Review of Systems - Review of Systems Systems not reviewed;Unavailable: Uncooperative - Constitutional Constitutional: Headache. absent: Anorexia, Chills, Fatigue, Fever, Weakness - EENT Eyes: absent: Blurred Vision, Change in Vision, Photophobia Nose/Mouth/Throat: Sore Throat. absent: Nasal Congestion, Hoarsness, Neck Pain - Cardiovascular Cardiovascular: Chest Pain, Edema, Lightheadedness. absent: Dyspnea, Palpitations, Radiating Pain, Rapid Heart Rate Additional comments: midsternal chest pain without radiation - Respiratory Respiratory: Cough. absent: Dyspnea, Chest Congestion, Excessive Mucous Production - Gastrointestinal Gastrointestinal: absent: Abdominal Pain, Change in Bowel Habits, Heartburn, Nausea, Vomiting - Genitourinary Genitourinary: absent: Difficulty Urinating - Integumentary Integumentary: Rash Additional comments: attributes skin rash to allergy to warfarin,elaquis,lovenox,plavix though he has not taken these meds in the recent past - Neurological Neurological: Dizziness. absent: Confusion, Convulsions, Syncope - Endocrine Endocrine: absent: Polyuria Past Patient History - Infectious Disease Hx of Infectious Diseases: None - Tetanus Immunizations Tetanus Immunization: Up to Date - Past Medical History & Family History Past Medical History?: Yes - Past Social History Smoking Status: Current Some Days Smoker Occupation: unemployed.On disabilty due to back and knee pain Alcohol: Occasional Drugs: Cocaine - CARDIAC Hx Atrial Fibrillation: Yes Hx Cardia Arrhythmia: Yes Hx Congestive Heart Failure: Yes Hx Hypercholesterolemia: Yes Hx Hypertension: Yes Hx Peripheral Edema: Yes - PULMONARY Hx Asthma: Yes Hx Chronic Obstructive Pulmonary Disease (COPD): Yes Hx Pneumonia: Yes Hx Sleep Apnea: Yes - NEUROLOGICAL Hx Neurological Disorder: No - HEENT Hx HEENT Problems: No - RENAL Hx Chronic Kidney Disease: No - ENDOCRINE/METABOLIC Hx Endocrine Disorders: No - HEMATOLOGICAL/ONCOLOGICAL Hx Blood Disorders: Yes Hx Blood Transfusions: Yes Other/Comment: MRSA Hx - INTEGUMENTARY Hx Dermatological Problems: Yes Hx Cellulitis: Yes - MUSCULOSKELETAL/RHEUMATOLOGICAL Hx Arthritis: Yes - GASTROINTESTINAL Hx Gastrointestinal Disorders: Yes Other/Comment: Splenic Hematoma - GENITOURINARY/GYNECOLOGICAL Hx Genitourinary Disorders: No - PSYCHIATRIC Hx Anxiety: Yes Hx Bipolar Disorder: Yes Hx Depression: Yes Hx Substance Use: Yes (denies) - SURGICAL HISTORY Hx Appendectomy: Yes (2008) Hx Coronary Stent: Yes (2008 - 2012 4 stents) - ANESTHESIA Hx Anesthesia: Yes Hx Anesthesia Reactions: No Hx Malignant Hyperthermia: No Meds Allergies/Adverse Reactions: Allergies Allergy/AdvReac Type Severity Reaction Status Date / Time apixaban [From Eliquis] Allergy RASH Verified 12/11/17 16:33 clopidogrel bisulfate Allergy RASH Verified 12/11/17 16:33 [From Plavix] enoxaparin sodium Allergy RASH Verified 12/11/17 16:33 [From Lovenox] morphine Allergy RASH Verified 12/11/17 16:33 warfarin Allergy RASH Verified 12/11/17 20:36 Physical Exam - Constitutional Appears: No Acute Distress, Agitated - Head Exam Head Exam: ATRAUMATIC, NORMAL INSPECTION, NORMOCEPHALIC - Eye Exam Eye Exam: EOMI, Normal appearance, PERRL. absent: Scleral icterus - ENT Exam ENT Exam: Mucous Membranes Moist, Normal Exam - Neck Exam Neck exam: Positive for: Full Rom, Normal Inspection - Respiratory Exam Respiratory Exam: Chest Wall Tenderness, Clear to Auscultation Bilateral, NORMAL BREATHING PATTERN Additional comments: mid sternal tenderness - Cardiovascular Exam Cardiovascular Exam: Irregular Rhythm. absent: JVD, Systolic Murmur - GI/Abdominal Exam GI & Abdominal Exam: Normal Bowel Sounds, Soft. absent: Tenderness - Extremities Exam Extremities exam: Positive for: pedal edema, pedal pulses present. Negative for : calf tenderness, joint swelling - Back Exam Back exam: NORMAL INSPECTION - Neurological Exam Neurological exam: Alert, Oriented x3 - Skin Additional comments: reddish skin of all extremities with chronic changes Results - Vital Signs Recent Vital Signs: Last Vital Signs Temp 98.4 F 12/11/17 16:29 Pulse 104 H 12/11/17 17:20 Resp 20 12/11/17 17:20 BP 148/89 12/11/17 17:20 Pulse Ox 97 12/11/17 19:28 - Labs Result Diagrams: 12/11/17 17:08 12/11/17 17:08 Labs: Laboratory Results - last 24 hr 12/11/17 12/11/17 12/11/17 17:08 17:08 17:08 WBC 14.1 H RBC 5.55 Hgb 15.1 Hct 45.7 MCV 82.2 D MCH 27.2 MCHC 33.0 RDW 17.6 H Plt Count 323 MPV 7.7 Neut % (Auto) 78.8 H Lymph % (Auto) 8.4 L Humphreys % (Auto) 10.0 Eos % (Auto) 1.5 Baso % (Auto) 1.3 Neut # 11.1 H Lymph # 1.2 Humphreys # 1.4 H Eos # 0.2 Baso # 0.2 Neutrophils % (Manual) 84 H Lymphocytes % (Manual) 8 L Monocytes % (Manual) 7 Eosinophils % (Manual) 1 Platelet Estimate Normal Anisocytosis (manual) Slight PT 13.9 H INR 1.2 APTT 35 H Sodium 128 L Potassium 5.8 H Chloride 96 L Carbon Dioxide 23 Anion Gap 15 BUN 28 H Creatinine 0.9 Est GFR ( Amer) > 60 Est GFR (Non-Af Amer) > 60 Random Glucose 112 H Calcium 8.4 L Total Bilirubin 1.9 H AST 72 H D ALT 6 L D Alkaline Phosphatase 81 Total Creatine Kinase 165 CK-MB (Mass) 3.25 Troponin I 0.0810 NT-Pro-B Natriuret Pep 5990 H Total Protein 9.1 H Albumin 4.2 Globulin 4.9 H Albumin/Globulin Ratio 0.8 L Triglycerides 145 D Cholesterol 126 LDL Cholesterol Direct 71 HDL Cholesterol 34 Urine Color Urine Clarity Urine pH Ur Specific [place] Urine Protein Urine Glucose (UA) Urine Ketones Urine Blood Urine Nitrate Urine Bilirubin Urine Urobilinogen Ur Leukocyte Esterase Urine WBC (Auto) Urine RBC (Auto) Urine Opiates Screen Urine Methadone Screen Ur Barbiturates Screen Ur Phencyclidine Scrn Ur Amphetamines Screen U Benzodiazepines Scrn U Oth Cocaine Metabols U Cannabinoids Screen Blood Type Antibody Screen 12/11/17 12/11/17 12/11/17 17:47 17:47 19:31 WBC RBC Hgb Hct MCV MCH MCHC RDW Plt Count MPV Neut % (Auto) Lymph % (Auto) Humphreys % (Auto) Eos % (Auto) Baso % (Auto) Neut # Lymph # Humphreys # Eos # Baso # Neutrophils % (Manual) Lymphocytes % (Manual) Monocytes % (Manual) Eosinophils % (Manual) Platelet Estimate Anisocytosis (manual) PT INR APTT Sodium Potassium Chloride Carbon Dioxide Anion Gap BUN Creatinine Est GFR ( Amer) Est GFR (Non-Af Amer) Random Glucose Calcium Total Bilirubin AST ALT Alkaline Phosphatase Total Creatine Kinase CK-MB (Mass) Troponin I NT-Pro-B Natriuret Pep Total Protein Albumin Globulin Albumin/Globulin Ratio Triglycerides Cholesterol LDL Cholesterol Direct HDL Cholesterol Urine Color Yellow Urine Clarity Clear Urine pH 6.0 Ur Specific [place] 1.012 Urine Protein Negative Urine Glucose (UA) Normal Urine Ketones Negative Urine Blood Negative Urine Nitrate Negative Urine Bilirubin Negative Urine Urobilinogen Normal Ur Leukocyte Esterase Neg Urine WBC (Auto) < 1 Urine RBC (Auto) 1 Urine Opiates Screen Negative Urine Methadone Screen Negative Ur Barbiturates Screen Negative Ur Phencyclidine Scrn Negative Ur Amphetamines Screen Negative U Benzodiazepines Scrn Negative U Oth Cocaine Metabols Positive H U Cannabinoids Screen Negative Blood Type O POSITIVE Antibody Screen Negative - EKG Data EKG Interpreted by: Myself - Imaging and Cardiology CT scan - head Status: Image reviewed by me, Report reviewed by me Assessment & Plan - Assessment and Plan (Free Text) Assessment: 1.CVA-Subacute ?Hemorrhagic Headache x 2 days Denies vision loss CT Head-Subacute right GATE TENDER territory infarct with questionable scattered areas of reperfusion hemorrhage. . There is a more chronic appearing infarct the left occipitoparietal watershed zone. Suspect minimal chronic periventricular white matter ischemic changes MRA as per neurologist Wolf 2.CAD s/p stents ,CHF,atrial fibrillation with c/o chestpain Serial Troponin HR controlled continue coreg,digoxin,spironolactone Add ACEI 3.Electrolyte imbalance-Hyponatremia,hyperkalemia,hypocalcemia replace calcium,rpt labs 4.Elevated LFT 5.Coccaine abuse 6.Chronic Back pain 7.Asthma/COPD-bronchodilators PRN
[2017-12-11] MEDS ORDERED: Sod Polystyrene Sulf 15 gm/60 ml Susp PO ONE (21:21)
--- NOTE | 2017-12-12 04:04 | RAD ---
HISTORY: chest pain COMPARISON: Chest x-ray performed 11/28/17 TECHNIQUE: Chest PA and lateral FINDINGS: LUNGS: Mild to moderate pulmonary venous congestion, slightly decreased since prior study. Please note that chest x-ray has limited sensitivity for the detection of pulmonary masses. PLEURA: No significant pleural effusion identified. No definite pneumothorax . CARDIOVASCULAR: Cardiomegaly. OSSEOUS STRUCTURES: Degenerative changes of the spine. VISUALIZED UPPER ABDOMEN: Unremarkable. OTHER FINDINGS: None. IMPRESSION: Mild to moderate pulmonary venous congestion, slightly decreased since prior study. Cardiomegaly.
[2017-12-12] MEDS ORDERED: Oxycodone/Acetaminophen 5/325 mg Tab PO STA (04:05)
[2017-12-12] MEDS: Pantoprazole 40 mg EC Tab PO SCH (10:00)
--- NOTE | 2017-12-12 10:01 | CP.CCUPN ---
CCU Subjective - Physician Review Events Since Last Encounter (Free Text): 12/12/17 10:01 47 y/o with history of CAD s/p stents,AFib, CHF, asthma/COPD, anxiety, HTN, Hyperlipidemia, Chronic back pain presents to the ED with a complaint of headache,dizziness for 2 days which worsened yesterday. He states he has frequent headaches, and felt pressure behind left eye associated with blurred vision yesterday. He took percocet 5/325mg with transient relief. Patient reports to have developed midsternal chest pressure today. Patient admits to taking Percocet with relief of CP, but not the headache. Patient admits to being compliant with his medications, takes aspirin daily not on other anticoagulants; denies any SOB,abdominal pain. Denies visual loss(asked patient multiple times) ER physician spoke to the Neurologist while patient was in ER Patient is unco-operative with exam,wanting food Since last night patient is refusing to use monitor. He is also refusing blood testing, imaging testing, x-rays. He refuses medications also. Only wants pain medication, and always wants to eat food. I ordered a repeat CAT scan of the head, pending at this time. He is a very sitting up, no focal deficit noted at this time. Patient has a intracranial bleed, stable. CT of the head to be reviewed if it is done and accepted by the patient. Otherwise patient can be transferred to stroke floor. He will be continued to see by PMD, neurologist. Further treatment as per the neurologist, PMD. Patient has a multiple instances in the past, leaving the hospital AGAINST MEDICAL ADVICE CCU Objective - Vital Signs / Intake & Output Intake and Output (Last 8hrs): Intake & Output 12/11/17 12/12/17 12/12/17 22:59 06:59 14:59 Intake Total 480 720 500 Output Total 300 0 Balance 480 420 500 Weight 251 lb Intake: Oral 480 720 500 Output: Urine 300 0 Urine, Voided 300 0 Other: # Voids Urine, Voided 1 - Medications Active Medications: Active Medications Generic Name Dose Route Start Last Admin Trade Name Freq PRN Reason Stop Dose Admin Carvedilol 12.5 mg 12/12/17 10:00 Coreg PO BID JEIMY Digoxin 0.125 mg 12/12/17 18:00 Lanoxin PO DAILY@1800 JEIMY Levetiracetam 500 mg 12/12/17 10:00 Keppra PO BID JEIMY Lisinopril 2.5 mg 12/12/17 10:00 Zestril PO DAILY JEIMY Pantoprazole Sodium 40 mg 12/12/17 10:00 Protonix Ec Tab PO DAILY [facility] Spironolactone 25 mg 12/12/17 10:00 Aldactone PO BID JEIMY - Patient Studies Lab Studies: Lab Studies 12/11/17 12/11/17 12/11/17 Range/Units 19:31 17:47 17:47 WBC (4.8-10.8) K/uL RBC (4.40-5.90) Mil/uL Hgb (12.0-18.0) g/dL Hct (35.0-51.0) % MCV (80.0-94.0) fL MCH (27.0-31.0) pg MCHC (33.0-37.0) g/dL RDW (11.5-14.5) % Plt Count (130-400) K/uL MPV (7.2-11.7) fL Neut % (Auto) (50.0-75.0) % Lymph % (Auto) (20.0-40.0) % [place] % (Auto) (0.0-10.0) % Eos % (Auto) (0.0-4.0) % Baso % (Auto) (0.0-2.0) % Neut # (1.8-7.0) K/uL Lymph # (1.0-4.3) K/uL [place] # (0.0-0.8) K/uL Eos # (0.0-0.7) K/uL Baso # (0.0-0.2) K/uL Neutrophils % (Manual) (50-75) % Lymphocytes % (Manual) (20-40) % Monocytes % (Manual) (0-10) % Eosinophils % (Manual) (0-4) % Platelet Estimate (NORMAL) Anisocytosis (manual) PT (9.7-12.2) SECONDS INR APTT (21-34) SECONDS Sodium (132-148) mmol/L Potassium (3.6-5.2) mmol/L Chloride (98-107) mmol/L Carbon Dioxide (22-30) mmol/L Anion Gap (10-20) BUN (9-20) mg/dL Creatinine (0.8-1.5) mg/dL Est GFR ( Amer) Est GFR (Non-Af Amer) Random Glucose (75-110) mg/dL Calcium (8.6-10.4) mg/dl Total Bilirubin (0.2-1.3) mg/dL AST (17-59) U/L ALT (21-72) U/L Alkaline Phosphatase (38-126) U/L Total Creatine Kinase (55-170) U/L CK-MB (Mass) (0.0-3.38) ng/mL Troponin I (0.00-0.120) ng/mL NT-Pro-B Natriuret Pep (0-450) pg/mL Total Protein (6.3-8.3) g/dL Albumin (3.5-5.0) g/dL Globulin (2.2-3.9) gm/dL Albumin/Globulin Ratio (1.0-2.1) Triglycerides (0-149) mg/dL Cholesterol (0-199) mg/dL LDL Cholesterol Direct (0-129) mg/dL HDL Cholesterol (30-70) mg/dL Urine Color Yellow (YELLOW) Urine Clarity Clear (Clear) Urine pH 6.0 (5.0-8.0) Ur Specific [place] 1.012 (1.003-1.030) Urine Protein Negative (NEGATIVE) mg/dL Urine Glucose (UA) Normal (Normal) mg/dL Urine Ketones Negative (NEGATIVE) mg/dL Urine Blood Negative (NEGATIVE) Urine Nitrate Negative (NEGATIVE) Urine Bilirubin Negative (NEGATIVE) Urine Urobilinogen Normal (0.2-1.0) mg/dL Ur Leukocyte Esterase Neg (Negative) [place]anc[place]/uL Urine WBC (Auto) < 1 (0-5) /hpf Urine RBC (Auto) 1 (0-3) /hpf Urine Opiates Screen Negative (NEGATIVE) Urine Methadone Screen Negative (NEGATIVE) Ur Barbiturates Screen Negative (NEGATIVE) Ur Phencyclidine Scrn Negative (NEGATIVE) Ur Amphetamines Screen Negative (NEGATIVE) U Benzodiazepines Scrn Negative (NEGATIVE) U Oth Cocaine Metabols Positive H (NEGATIVE) U Cannabinoids Screen Negative (NEGATIVE) Blood Type O POSITIVE Antibody Screen Negative 12/11/17 12/11/17 12/11/17 Range/Units 17:08 17:08 17:08 WBC 14.1 H (4.8-10.8) K/uL RBC 5.55 (4.40-5.90) Mil/uL Hgb 15.1 (12.0-18.0) g/dL Hct 45.7 (35.0-51.0) % MCV 82.2 D (80.0-94.0) fL MCH 27.2 (27.0-31.0) pg MCHC 33.0 (33.0-37.0) g/dL RDW 17.6 H (11.5-14.5) % Plt Count 323 (130-400) K/uL MPV 7.7 (7.2-11.7) fL Neut % (Auto) 78.8 H (50.0-75.0) % Lymph % (Auto) 8.4 L (20.0-40.0) % [place] % (Auto) 10.0 (0.0-10.0) % Eos % (Auto) 1.5 (0.0-4.0) % Baso % (Auto) 1.3 (0.0-2.0) % Neut # 11.1 H (1.8-7.0) K/uL Lymph # 1.2 (1.0-4.3) K/uL [place] # 1.4 H (0.0-0.8) K/uL Eos # 0.2 (0.0-0.7) K/uL Baso # 0.2 (0.0-0.2) K/uL Neutrophils % (Manual) 84 H (50-75) % Lymphocytes % (Manual) 8 L (20-40) % Monocytes % (Manual) 7 (0-10) % Eosinophils % (Manual) 1 (0-4) % Platelet Estimate Normal (NORMAL) Anisocytosis (manual) Slight PT 13.9 H (9.7-12.2) SECONDS INR 1.2 APTT 35 H (21-34) SECONDS Sodium 128 L (132-148) mmol/L Potassium 5.8 H (3.6-5.2) mmol/L Chloride 96 L (98-107) mmol/L Carbon Dioxide 23 (22-30) mmol/L Anion Gap 15 (10-20) BUN 28 H (9-20) mg/dL Creatinine 0.9 (0.8-1.5) mg/dL Est GFR ( Amer) > 60 Est GFR (Non-Af Amer) > 60 Random Glucose 112 H (75-110) mg/dL Calcium 8.4 L (8.6-10.4) mg/dl Total Bilirubin 1.9 H (0.2-1.3) mg/dL AST 72 H D (17-59) U/L ALT 6 L D (21-72) U/L Alkaline Phosphatase 81 (38-126) U/L Total Creatine Kinase 165 (55-170) U/L CK-MB (Mass) 3.25 (0.0-3.38) ng/mL Troponin I 0.0810 (0.00-0.120) ng/mL NT-Pro-B Natriuret Pep 5990 H (0-450) pg/mL Total Protein 9.1 H (6.3-8.3) g/dL Albumin 4.2 (3.5-5.0) g/dL Globulin 4.9 H (2.2-3.9) gm/dL Albumin/Globulin Ratio 0.8 L (1.0-2.1) Triglycerides 145 D (0-149) mg/dL Cholesterol 126 (0-199) mg/dL LDL Cholesterol Direct 71 (0-129) mg/dL HDL Cholesterol 34 (30-70) mg/dL Urine Color (YELLOW) Urine Clarity (Clear) Urine pH (5.0-8.0) Ur Specific [place] (1.003-1.030) Urine Protein (NEGATIVE) mg/dL Urine Glucose (UA) (Normal) mg/dL Urine Ketones (NEGATIVE) mg/dL Urine Blood (NEGATIVE) Urine Nitrate (NEGATIVE) Urine Bilirubin (NEGATIVE) Urine Urobilinogen (0.2-1.0) mg/dL Ur Leukocyte Esterase (Negative) [place]/uL Urine WBC (Auto) (0-5) /hpf Urine RBC (Auto) (0-3) /hpf Urine Opiates Screen (NEGATIVE) Urine Methadone Screen (NEGATIVE) Ur Barbiturates Screen (NEGATIVE) Ur Phencyclidine Scrn (NEGATIVE) Ur Amphetamines Screen (NEGATIVE) U Benzodiazepines Scrn (NEGATIVE) U Oth Cocaine Metabols (NEGATIVE) U Cannabinoids Screen (NEGATIVE) Blood Type Antibody Screen Laboratory Results - last 24 hr 12/11/17 12/11/17 12/11/17 17:08 17:08 17:08 WBC 14.1 H RBC 5.55 Hgb 15.1 Hct 45.7 MCV 82.2 D MCH 27.2 MCHC 33.0 RDW 17.6 H Plt Count 323 MPV 7.7 Neut % (Auto) 78.8 H Lymph % (Auto) 8.4 L [place] % (Auto) 10.0 Eos % (Auto) 1.5 Baso % (Auto) 1.3 Neut # 11.1 H Lymph # 1.2 [place] # 1.4 H Eos # 0.2 Baso # 0.2 Neutrophils % (Manual) 84 H Lymphocytes % (Manual) 8 L Monocytes % (Manual) 7 Eosinophils % (Manual) 1 Platelet Estimate Normal Anisocytosis (manual) Slight PT 13.9 H INR 1.2 APTT 35 H Sodium 128 L Potassium 5.8 H Chloride 96 L Carbon Dioxide 23 Anion Gap 15 BUN 28 H Creatinine 0.9 Est GFR ( Amer) > 60 Est GFR (Non-Af Amer) > 60 Random Glucose 112 H Calcium 8.4 L Total Bilirubin 1.9 H AST 72 H D ALT 6 L D Alkaline Phosphatase 81 Total Creatine Kinase 165 CK-MB (Mass) 3.25 Troponin I 0.0810 NT-Pro-B Natriuret Pep 5990 H Total Protein 9.1 H Albumin 4.2 Globulin 4.9 H Albumin/Globulin Ratio 0.8 L Triglycerides 145 D Cholesterol 126 LDL Cholesterol Direct 71 HDL Cholesterol 34 Urine Color Urine Clarity Urine pH Ur Specific [place] Urine Protein Urine Glucose (UA) Urine Ketones Urine Blood Urine Nitrate Urine Bilirubin Urine Urobilinogen Ur Leukocyte Esterase Urine WBC (Auto) Urine RBC (Auto) Urine Opiates Screen Urine Methadone Screen Ur Barbiturates Screen Ur Phencyclidine Scrn Ur Amphetamines Screen U Benzodiazepines Scrn U Oth Cocaine Metabols U Cannabinoids Screen Blood Type Antibody Screen 12/11/17 12/11/17 12/11/17 17:47 17:47 19:31 WBC RBC Hgb Hct MCV MCH MCHC RDW Plt Count MPV Neut % (Auto) Lymph % (Auto) [place] % (Auto) Eos % (Auto) Baso % (Auto) Neut # Lymph # [place] # Eos # Baso # Neutrophils % (Manual) Lymphocytes % (Manual) Monocytes % (Manual) Eosinophils % (Manual) Platelet Estimate Anisocytosis (manual) PT INR APTT Sodium Potassium Chloride Carbon Dioxide Anion Gap BUN Creatinine Est GFR ( Amer) Est GFR (Non-Af Amer) Random Glucose Calcium Total Bilirubin AST ALT Alkaline Phosphatase Total Creatine Kinase CK-MB (Mass) Troponin I NT-Pro-B Natriuret Pep Total Protein Albumin Globulin Albumin/Globulin Ratio Triglycerides Cholesterol LDL Cholesterol Direct HDL Cholesterol Urine Color Yellow Urine Clarity Clear Urine pH 6.0 Ur Specific [place] 1.012 Urine Protein Negative Urine Glucose (UA) Normal Urine Ketones Negative Urine Blood Negative Urine Nitrate Negative Urine Bilirubin Negative Urine Urobilinogen Normal Ur Leukocyte Esterase Neg Urine WBC (Auto) < 1 Urine RBC (Auto) 1 Urine Opiates Screen Negative Urine Methadone Screen Negative Ur Barbiturates Screen Negative Ur Phencyclidine Scrn Negative Ur Amphetamines Screen Negative U Benzodiazepines Scrn Negative U Oth Cocaine Metabols Positive H U Cannabinoids Screen Negative Blood Type O POSITIVE Antibody Screen Negative EKG/Cardiology Studies: Cardiology / EKG Studies 12/11/17 16:31 EKG [ELECTROCARDIOGRAM] Stat Comment: Mode Of Transportation: BED Reason For Exam: cp 12/11/17 16:50 ELECTROCARDIOGRAM Stat Comment: Mode Of Transportation: BED Reason For Exam: chest pain 12/12/17 08:00 EKG [ELECTROCARDIOGRAM] Routine Comment: Mode Of Transportation: PORTABLE Reason For Exam: chest pain Critical Care Progress Note - Nutrition Nutrition: Nutrition Category Date Time Status Heart Healthy Diet [DIET] Diets 12/12/17 Breakfast Active
--- NOTE | 2017-12-12 11:34 | CP.PCM.HP ---
History of Present Illness - History of Present Illness History of Present Illness: Patient is a 47 year old male with past medical history of anxiety/depression, asthma, afib, chronic back pain, CAD, CHF, COPD, HTN, HLD, chronic LE edema, who presents to the ED with complaints of headache,dizziness for 2 days which worsened yesterday. He states he has frequent headaches, and felt pressure behind left eye associated with blurred vision yesterday. He took percocet 5/ 325mg with transient relief. Patient reports to have developed midsternal chest pressure today. Patient admits to taking Percocet with relief of CP, but not the headache. Patient admits to being compliant with his medications, takes aspirin daily not on other anticoagulants; denies any SOB,abdominal pain. Denies visual loss(asked patient multiple times). PMD: Dr. Ocampo PMHx: anxiety/depression, asthma, afib, chronic back pain, CAD, CHF, COPD, HTN, HLD, chronic LE edema, arthritis SurgHx: Appendectomy, 2008; 4 cardiac stents () FamHx: Mother- DM, Heart failure, arthritis SocHx: smokes 1-2 cigarettes weekly (quit 9 months ago; former heavy smoker since 9 years old); denies alcohol; + cocaine use Allergies: Apixaban, Plavix, Lovenox, Morphine Medications: See EMR for medication list Present on Admission - Present on Admission Any Indicators Present on Admission: No Review of Systems - Constitutional Constitutional: absent: Chills, Fever - EENT Eyes: Blurred Vision Nose/Mouth/Throat: absent: Nasal Congestion - Cardiovascular Cardiovascular: Dyspnea. absent: Chest Pain, Diaphoresis - Respiratory Respiratory: Cough - Gastrointestinal Gastrointestinal: Abdominal Pain. absent: Nausea, Vomiting - Genitourinary Genitourinary: absent: Dysuria - Musculoskeletal Musculoskeletal: Back Pain - Integumentary Integumentary: Lesions, Rash - Neurological Neurological: absent: Confusion Past Patient History - Infectious Disease Hx of Infectious Diseases: None - Tetanus Immunizations Tetanus Immunization: Up to Date - Past Medical History & Family History Past Medical History?: Yes - Past Social History Smoking Status: Current Some Days Smoker Occupation: unemployed.On disabilty due to back and knee pain Alcohol: Occasional Drugs: Cocaine - CARDIAC Hx Atrial Fibrillation: Yes Hx Cardia Arrhythmia: Yes Hx Congestive Heart Failure: Yes Hx Hypercholesterolemia: Yes Hx Hypertension: Yes Hx Peripheral Edema: Yes - PULMONARY Hx Asthma: Yes Hx Chronic Obstructive Pulmonary Disease (COPD): Yes Hx Pneumonia: Yes Hx Sleep Apnea: Yes - NEUROLOGICAL Hx Neurological Disorder: No - HEENT Hx HEENT Problems: No - RENAL Hx Chronic Kidney Disease: No - ENDOCRINE/METABOLIC Hx Endocrine Disorders: No - HEMATOLOGICAL/ONCOLOGICAL Hx Blood Disorders: Yes Hx Blood Transfusions: Yes Other/Comment: MRSA Hx - INTEGUMENTARY Hx Dermatological Problems: Yes Hx Cellulitis: Yes - MUSCULOSKELETAL/RHEUMATOLOGICAL Hx Arthritis: Yes - GASTROINTESTINAL Hx Gastrointestinal Disorders: Yes Other/Comment: Splenic Hematoma - GENITOURINARY/GYNECOLOGICAL Hx Genitourinary Disorders: No - PSYCHIATRIC Hx Anxiety: Yes Hx Bipolar Disorder: Yes Hx Depression: Yes Hx Substance Use: Yes (denies) - SURGICAL HISTORY Hx Appendectomy: Yes (2008) Hx Coronary Stent: Yes (2008 - 2012 4 stents) - ANESTHESIA Hx Anesthesia: Yes Hx Anesthesia Reactions: No Hx Malignant Hyperthermia: No Meds Allergies/Adverse Reactions: Allergies Allergy/AdvReac Type Severity Reaction Status Date / Time apixaban [From Eliquis] Allergy RASH Verified 12/11/17 16:33 clopidogrel bisulfate Allergy RASH Verified 12/11/17 16:33 [From Plavix] enoxaparin sodium Allergy RASH Verified 12/11/17 16:33 [From Lovenox] morphine Allergy RASH Verified 12/11/17 16:33 warfarin Allergy RASH Verified 12/11/17 20:36 Physical Exam - Constitutional Appears: No Acute Distress - Head Exam Head Exam: ATRAUMATIC, NORMOCEPHALIC - Eye Exam Eye Exam: EOMI. absent: Nystagmus, Scleral icterus - ENT Exam ENT Exam: Mucous Membranes Moist - Respiratory Exam Respiratory Exam: Decreased Breath Sounds (poor inspiration), NORMAL BREATHING PATTERN - Cardiovascular Exam Cardiovascular Exam: Irregular Rhythm, +S1, +S2 - GI/Abdominal Exam GI & Abdominal Exam: Distended, Normal Bowel Sounds, Soft, Tenderness ( epigastric). absent: Firm - Extremities Exam Extremities exam: Positive for: pedal edema (trace bilaterally) - Neurological Exam Neurological exam: Alert - Psychiatric Exam Psychiatric exam: Normal Affect - Skin Skin Exam: Warm Results - Vital Signs Recent Vital Signs: Last Vital Signs Temp 98.8 F 12/12/17 03:39 Pulse 93 H 12/12/17 03:50 Resp 14 12/12/17 03:39 BP 129/102 H 12/12/17 03:47 Pulse Ox 91 L 12/12/17 03:50 - Labs Result Diagrams: 12/11/17 17:08 12/11/17 17:08 Labs: Laboratory Results - last 24 hr 12/11/17 12/11/17 12/11/17 17:08 17:08 17:08 WBC 14.1 H RBC 5.55 Hgb 15.1 Hct 45.7 MCV 82.2 D MCH 27.2 MCHC 33.0 RDW 17.6 H Plt Count 323 MPV 7.7 Neut % (Auto) 78.8 H Lymph % (Auto) 8.4 L [place] % (Auto) 10.0 Eos % (Auto) 1.5 Baso % (Auto) 1.3 Neut # 11.1 H Lymph # 1.2 [place] # 1.4 H Eos # 0.2 Baso # 0.2 Neutrophils % (Manual) 84 H Lymphocytes % (Manual) 8 L Monocytes % (Manual) 7 Eosinophils % (Manual) 1 Platelet Estimate Normal Anisocytosis (manual) Slight PT 13.9 H INR 1.2 APTT 35 H Sodium 128 L Potassium 5.8 H Chloride 96 L Carbon Dioxide 23 Anion Gap 15 BUN 28 H Creatinine 0.9 Est GFR ( Amer) > 60 Est GFR (Non-Af Amer) > 60 Random Glucose 112 H Calcium 8.4 L Total Bilirubin 1.9 H AST 72 H D ALT 6 L D Alkaline Phosphatase 81 Total Creatine Kinase 165 CK-MB (Mass) 3.25 Troponin I 0.0810 NT-Pro-B Natriuret Pep 5990 H Total Protein 9.1 H Albumin 4.2 Globulin 4.9 H Albumin/Globulin Ratio 0.8 L Triglycerides 145 D Cholesterol 126 LDL Cholesterol Direct 71 HDL Cholesterol 34 Urine Color Urine Clarity Urine pH Ur Specific [place] Urine Protein Urine Glucose (UA) Urine Ketones Urine Blood Urine Nitrate Urine Bilirubin Urine Urobilinogen Ur Leukocyte Esterase Urine WBC (Auto) Urine RBC (Auto) Urine Opiates Screen Urine Methadone Screen Ur Barbiturates Screen Ur Phencyclidine Scrn Ur Amphetamines Screen U Benzodiazepines Scrn U Oth Cocaine Metabols U Cannabinoids Screen Blood Type Antibody Screen 12/11/17 12/11/17 12/11/17 17:47 17:47 19:31 WBC RBC Hgb Hct MCV MCH MCHC RDW Plt Count MPV Neut % (Auto) Lymph % (Auto) [place] % (Auto) Eos % (Auto) Baso % (Auto) Neut # Lymph # [place] # Eos # Baso # Neutrophils % (Manual) Lymphocytes % (Manual) Monocytes % (Manual) Eosinophils % (Manual) Platelet Estimate Anisocytosis (manual) PT INR APTT Sodium Potassium Chloride Carbon Dioxide Anion Gap BUN Creatinine Est GFR ( Amer) Est GFR (Non-Af Amer) Random Glucose Calcium Total Bilirubin AST ALT Alkaline Phosphatase Total Creatine Kinase CK-MB (Mass) Troponin I NT-Pro-B Natriuret Pep Total Protein Albumin Globulin Albumin/Globulin Ratio Triglycerides Cholesterol LDL Cholesterol Direct HDL Cholesterol Urine Color Yellow Urine Clarity Clear Urine pH 6.0 Ur Specific [place] 1.012 Urine Protein Negative Urine Glucose (UA) Normal Urine Ketones Negative Urine Blood Negative Urine Nitrate Negative Urine Bilirubin Negative Urine Urobilinogen Normal Ur Leukocyte Esterase Neg Urine WBC (Auto) < 1 Urine RBC (Auto) 1 Urine Opiates Screen Negative Urine Methadone Screen Negative Ur Barbiturates Screen Negative Ur Phencyclidine Scrn Negative Ur Amphetamines Screen Negative U Benzodiazepines Scrn Negative U Oth Cocaine Metabols Positive H U Cannabinoids Screen Negative Blood Type O POSITIVE Antibody Screen Negative Assessment & Plan - Assessment and Plan (Free Text) Assessment: CVA CT Head-Subacute right HAND CLERICAL VERIFIER territory infarct with questionable scattered areas of reperfusion hemorrhage. There is a more chronic appearing infarct the left occipitoparietal watershed zone. Suspect minimal chronic periventricular white matter ischemic changes MRI-Right HAND CLERICAL VERIFIER infarction with intraparanchymal hemorrhage 3.4 x 6.2cm, small right occipital SAH Dr. Tavera, neurosurgery, consulted- help appreciated states no intervention at this time per ER documentation Dr. Wagner Hurt, neurology, consulted- help appreciated patient to be started on Keppra 500mg PO BID patient can start aspirin 81mg 72 hours after bleed (Thursday12/14/17) patient can start Eliquis 3 weeks after bleed but will need repeat CT head prior to starting medication patient currently in ICU for monitoring, to be transferred to the floor CHF patient has history systolic CHF Echo 02/2017: LVSF SEVERELY REDUCED, Severe global hypokinesis of LV Patient refused ICD implant in past Hx of 4 stents continue aldactone 25mg BID (hold SBP <90) continue coreg 12.5 PO BID Lasix 40mg PO daily Dr. Morgan consulted, help appreciated discussed with patient the risks of having A-fib and patient agreeable for Eliquis when cleared from neurology perspective Afib patient refusing to wear monitor dig 0.125 daily CAD Hx of 4 stents Meds: holding aspirin due to bleed aspirin 81mg can be restarted 12/14/17 Cont home med Crestor 5mg PO HS Headache fioricet 1 tab q4prn HTN lisinopril 2.5 mg PO daily Spironolactone 25 mg PO BID Electrolyte imbalance continue to monitor and replete Elevated LFTs continue to monitor Cocaine abuse patient counseled on cessation hold beta blockers UDS positive Chronic back pain percocet 5/325 q4prn dilaudid 0.5mg IVP q6prn if patient gets IV access Asthma/ COPD Albuterol neb prn Hx psychiatric disorder Prozac 40mg PO daily Xanax 1mg PO Q6 Prophylaxis Discussed tobacco cessation. Patient reports quitting 9 months ago; however, admits to smoking 1-2 cigarettes weekly. Nicoderm patch protonix 40mg PO daily Regular Diet SCDs Patient seen and examined with Dr. Ocampo. All medical management as per Dr. Ocampo
--- NOTE | 2017-12-12 13:40 | CT ---
EXAM: CT Head Without Intravenous Contrast CLINICAL HISTORY: 47 years old, male; Pain; Additional info: Follow up CT head patient may refuse TECHNIQUE: Axial computed tomography images of the head/brain without intravenous contrast. All CT scans at this facility use one or more dose reduction techniques, viz.: automated exposure control; ma/kV adjustment per patient size (including targeted exams where dose is matched to indication; i.e. head); or iterative reconstruction technique. 762 images are submitted. Coronal and sagittal reformatted images were created and reviewed. 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 Cerebral and cerebellar volume loss. Patchy hypodensity is seen in the periventricular and subcortical white matter. Limited evaluation of ronquillo-white differentiation secondary to motion. Left occipitoparietal encephalomalacia due to remote infarct. Ventricles: Unremarkable. No ventriculomegaly. Bones/joints: Unremarkable. No acute fracture. Soft tissues: Unremarkable. Sinuses: Moderate left maxillary sinus disease. Patchy ethmoid sinus disease. Mastoid air cells: Unremarkable. No mastoid effusion. IMPRESSION: 1. 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
[2017-12-12] MEDS: Oxycodone/Acetaminophen 5/325 mg Tab PO PRN ×3 (13:47→21:16)
--- NOTE | 2017-12-12 14:05 | CP.PCM.CON ---
History of Present Illness - History of Present Illness History of Present Illness: patient seen examined. full consutl to follow. admitted with CVA. No current vision change. Recommend anticoagulant therapy with Eliquis 5 mg BID. Patient seems to be more receptive to anticoagulant therapy. Past Patient History - Infectious Disease Hx of Infectious Diseases: None - Tetanus Immunizations Tetanus Immunization: Up to Date - Past Medical History & Family History Past Medical History?: Yes - Past Social History Smoking Status: Current Some Days Smoker Occupation: unemployed.On disabilty due to back and knee pain Alcohol: Occasional Drugs: Cocaine - CARDIAC Hx Atrial Fibrillation: Yes Hx Cardia Arrhythmia: Yes Hx Congestive Heart Failure: Yes Hx Hypercholesterolemia: Yes Hx Hypertension: Yes Hx Peripheral Edema: Yes - PULMONARY Hx Asthma: Yes Hx Chronic Obstructive Pulmonary Disease (COPD): Yes Hx Pneumonia: Yes Hx Sleep Apnea: Yes - NEUROLOGICAL Hx Neurological Disorder: No - HEENT Hx HEENT Problems: No - RENAL Hx Chronic Kidney Disease: No - ENDOCRINE/METABOLIC Hx Endocrine Disorders: No - HEMATOLOGICAL/ONCOLOGICAL Hx Blood Disorders: Yes Hx Blood Transfusions: Yes Other/Comment: MRSA Hx - INTEGUMENTARY Hx Dermatological Problems: Yes Hx Cellulitis: Yes - MUSCULOSKELETAL/RHEUMATOLOGICAL Hx Arthritis: Yes - GASTROINTESTINAL Hx Gastrointestinal Disorders: Yes Other/Comment: Splenic Hematoma - GENITOURINARY/GYNECOLOGICAL Hx Genitourinary Disorders: No - PSYCHIATRIC Hx Anxiety: Yes Hx Bipolar Disorder: Yes Hx Depression: Yes Hx Substance Use: Yes (denies) - SURGICAL HISTORY Hx Appendectomy: Yes (2008) Hx Coronary Stent: Yes (2008 - 2012 4 stents) - ANESTHESIA Hx Anesthesia: Yes Hx Anesthesia Reactions: No Hx Malignant Hyperthermia: No Meds Allergies/Adverse Reactions: Allergies Allergy/AdvReac Type Severity Reaction Status Date / Time apixaban [From Eliquis] Allergy RASH Verified 12/11/17 16:33 clopidogrel bisulfate Allergy RASH Verified 12/11/17 16:33 [From Plavix] enoxaparin sodium Allergy RASH Verified 12/11/17 16:33 [From Lovenox] morphine Allergy RASH Verified 12/11/17 16:33 warfarin Allergy RASH Verified 12/11/17 20:36 - Medications Medications: Current Medications Alprazolam (Xanax) 1 mg PO Q6 PRN PRN Reason: Anxiety Last Admin: 12/12/17 13:48 Dose: 1 mg Carvedilol (Coreg) 12.5 mg PO BID [facility] Digoxin (Lanoxin) 0.125 mg PO DAILY@1800 [facility] Fluoxetine HCl (Prozac) 40 mg PO DAILY [facility] Furosemide (Lasix) 40 mg PO DAILY [facility] Hydromorphone HCl (Dilaudid) 0.5 mg IVP Q6H PRN PRN Reason: Pain, moderate (4-7) Levetiracetam (Keppra) 500 mg PO BID [facility] Last Admin: 12/12/17 10:34 Dose: 500 mg Lisinopril (Zestril) 2.5 mg PO DAILY [facility] Last Admin: 12/12/17 10:00 Dose: Not Given Nicotine (Nicoderm Cq) 1 patch TD DAILY [facility] Oxycodone/Acetaminophen (Percocet 5/325 Mg Tab) 1 tab PO Q4H PRN PRN Reason: Pain, moderate (4-7) Stop: 12/15/17 13:33 Last Admin: 12/12/17 13:47 Dose: 1 tab Pantoprazole Sodium (Protonix Ec Tab) 40 mg PO DAILY [facility] Last Admin: 12/12/17 10:00 Dose: Not Given Rosuvastatin Calcium (Crestor) 5 mg PO [facility] Spironolactone (Aldactone) 25 mg PO BID [facility] Last Admin: 12/12/17 10:00 Dose: Not Given Results - Vital Signs Recent Vital Signs: Last Vital Signs Temp 98.8 F 12/12/17 03:39 Pulse 93 H 12/12/17 03:50 Resp 14 12/12/17 03:39 BP 129/102 H 12/12/17 03:47 Pulse Ox 91 L 12/12/17 03:50 - Labs Result Diagrams: 12/11/17 17:08 12/11/17 17:08 Labs: Laboratory Results - last 24 hr 12/11/17 12/11/17 12/11/17 17:08 17:08 17:08 WBC 14.1 H RBC 5.55 Hgb 15.1 Hct 45.7 MCV 82.2 D MCH 27.2 MCHC 33.0 RDW 17.6 H Plt Count 323 MPV 7.7 Neut % (Auto) 78.8 H Lymph % (Auto) 8.4 L [place] % (Auto) 10.0 Eos % (Auto) 1.5 Baso % (Auto) 1.3 Neut # 11.1 H Lymph # 1.2 [place] # 1.4 H Eos # 0.2 Baso # 0.2 Neutrophils % (Manual) 84 H Lymphocytes % (Manual) 8 L Monocytes % (Manual) 7 Eosinophils % (Manual) 1 Platelet Estimate Normal Anisocytosis (manual) Slight PT 13.9 H INR 1.2 APTT 35 H Sodium 128 L Potassium 5.8 H Chloride 96 L Carbon Dioxide 23 Anion Gap 15 BUN 28 H Creatinine 0.9 Est GFR ( Amer) > 60 Est GFR (Non-Af Amer) > 60 Random Glucose 112 H Calcium 8.4 L Total Bilirubin 1.9 H AST 72 H D ALT 6 L D Alkaline Phosphatase 81 Total Creatine Kinase 165 CK-MB (Mass) 3.25 Troponin I 0.0810 NT-Pro-B Natriuret Pep 5990 H Total Protein 9.1 H Albumin 4.2 Globulin 4.9 H Albumin/Globulin Ratio 0.8 L Triglycerides 145 D Cholesterol 126 LDL Cholesterol Direct 71 HDL Cholesterol 34 Urine Color Urine Clarity Urine pH Ur Specific [place] Urine Protein Urine Glucose (UA) Urine Ketones Urine Blood Urine Nitrate Urine Bilirubin Urine Urobilinogen Ur Leukocyte Esterase Urine WBC (Auto) Urine RBC (Auto) Urine Opiates Screen Urine Methadone Screen Ur Barbiturates Screen Ur Phencyclidine Scrn Ur Amphetamines Screen U Benzodiazepines Scrn U Oth Cocaine Metabols U Cannabinoids Screen Blood Type Antibody Screen 12/11/17 12/11/17 12/11/17 17:47 17:47 19:31 WBC RBC Hgb Hct MCV MCH MCHC RDW Plt Count MPV Neut % (Auto) Lymph % (Auto) [place] % (Auto) Eos % (Auto) Baso % (Auto) Neut # Lymph # [place] # Eos # Baso # Neutrophils % (Manual) Lymphocytes % (Manual) Monocytes % (Manual) Eosinophils % (Manual) Platelet Estimate Anisocytosis (manual) PT INR APTT Sodium Potassium Chloride Carbon Dioxide Anion Gap BUN Creatinine Est GFR ( Amer) Est GFR (Non-Af Amer) Random Glucose Calcium Total Bilirubin AST ALT Alkaline Phosphatase Total Creatine Kinase CK-MB (Mass) Troponin I NT-Pro-B Natriuret Pep Total Protein Albumin Globulin Albumin/Globulin Ratio Triglycerides Cholesterol LDL Cholesterol Direct HDL Cholesterol Urine Color Yellow Urine Clarity Clear Urine pH 6.0 Ur Specific [place] 1.012 Urine Protein Negative Urine Glucose (UA) Normal Urine Ketones Negative Urine Blood Negative Urine Nitrate Negative Urine Bilirubin Negative Urine Urobilinogen Normal Ur Leukocyte Esterase Neg Urine WBC (Auto) < 1 Urine RBC (Auto) 1 Urine Opiates Screen Negative Urine Methadone Screen Negative Ur Barbiturates Screen Negative Ur Phencyclidine Scrn Negative Ur Amphetamines Screen Negative U Benzodiazepines Scrn Negative U Oth Cocaine Metabols Positive H U Cannabinoids Screen Negative Blood Type O POSITIVE Antibody Screen Negative
--- NOTE | 2017-12-12 14:06 | CP.PCM.CON ---
Past Patient History - Infectious Disease Hx of Infectious Diseases: None - Tetanus Immunizations Tetanus Immunization: Up to Date - Past Medical History & Family History Past Medical History?: Yes - Past Social History Smoking Status: Current Some Days Smoker Occupation: unemployed.On disabilty due to back and knee pain Alcohol: Occasional Drugs: Cocaine - CARDIAC Hx Atrial Fibrillation: Yes Hx Cardia Arrhythmia: Yes Hx Congestive Heart Failure: Yes Hx Hypercholesterolemia: Yes Hx Hypertension: Yes Hx Peripheral Edema: Yes - PULMONARY Hx Asthma: Yes Hx Chronic Obstructive Pulmonary Disease (COPD): Yes Hx Pneumonia: Yes Hx Sleep Apnea: Yes - NEUROLOGICAL Hx Neurological Disorder: No - HEENT Hx HEENT Problems: No - RENAL Hx Chronic Kidney Disease: No - ENDOCRINE/METABOLIC Hx Endocrine Disorders: No - HEMATOLOGICAL/ONCOLOGICAL Hx Blood Disorders: Yes Hx Blood Transfusions: Yes Other/Comment: MRSA Hx - INTEGUMENTARY Hx Dermatological Problems: Yes Hx Cellulitis: Yes - MUSCULOSKELETAL/RHEUMATOLOGICAL Hx Arthritis: Yes - GASTROINTESTINAL Hx Gastrointestinal Disorders: Yes Other/Comment: Splenic Hematoma - GENITOURINARY/GYNECOLOGICAL Hx Genitourinary Disorders: No - PSYCHIATRIC Hx Anxiety: Yes Hx Bipolar Disorder: Yes Hx Depression: Yes Hx Substance Use: Yes (denies) - SURGICAL HISTORY Hx Appendectomy: Yes (2008) Hx Coronary Stent: Yes (2008 - 2012 4 stents) - ANESTHESIA Hx Anesthesia: Yes Hx Anesthesia Reactions: No Hx Malignant Hyperthermia: No Meds Allergies/Adverse Reactions: Allergies Allergy/AdvReac Type Severity Reaction Status Date / Time apixaban [From Eliquis] Allergy RASH Verified 12/11/17 16:33 clopidogrel bisulfate Allergy RASH Verified 12/11/17 16:33 [From Plavix] enoxaparin sodium Allergy RASH Verified 12/11/17 16:33 [From Lovenox] morphine Allergy RASH Verified 12/11/17 16:33 warfarin Allergy RASH Verified 12/11/17 20:36 - Medications Medications: Current Medications Alprazolam (Xanax) 1 mg PO Q6 PRN PRN Reason: Anxiety Last Admin: 12/12/17 13:48 Dose: 1 mg Carvedilol (Coreg) 12.5 mg PO BID [facility] Digoxin (Lanoxin) 0.125 mg PO DAILY@1800 [facility] Fluoxetine HCl (Prozac) 40 mg PO DAILY [facility] Furosemide (Lasix) 40 mg PO DAILY [facility] Hydromorphone HCl (Dilaudid) 0.5 mg IVP Q6H PRN PRN Reason: Pain, moderate (4-7) Levetiracetam (Keppra) 500 mg PO BID [facility] Last Admin: 12/12/17 10:34 Dose: 500 mg Lisinopril (Zestril) 2.5 mg PO DAILY [facility] Last Admin: 12/12/17 10:00 Dose: Not Given Nicotine (Nicoderm Cq) 1 patch TD DAILY [facility] Oxycodone/Acetaminophen (Percocet 5/325 Mg Tab) 1 tab PO Q4H PRN PRN Reason: Pain, moderate (4-7) Stop: 12/15/17 13:33 Last Admin: 12/12/17 13:47 Dose: 1 tab Pantoprazole Sodium (Protonix Ec Tab) 40 mg PO DAILY [facility] Last Admin: 12/12/17 10:00 Dose: Not Given Rosuvastatin Calcium (Crestor) 5 mg PO [facility] Spironolactone (Aldactone) 25 mg PO BID [facility] Last Admin: 12/12/17 10:00 Dose: Not Given Results - Vital Signs Recent Vital Signs: Last Vital Signs Temp 98.8 F 12/12/17 03:39 Pulse 93 H 12/12/17 03:50 Resp 14 12/12/17 03:39 BP 129/102 H 12/12/17 03:47 Pulse Ox 91 L 12/12/17 03:50 - Labs Result Diagrams: 12/11/17 17:08 12/11/17 17:08 Labs: Laboratory Results - last 24 hr 12/11/17 12/11/17 12/11/17 17:08 17:08 17:08 WBC 14.1 H RBC 5.55 Hgb 15.1 Hct 45.7 MCV 82.2 D MCH 27.2 MCHC 33.0 RDW 17.6 H Plt Count 323 MPV 7.7 Neut % (Auto) 78.8 H Lymph % (Auto) 8.4 L [place] % (Auto) 10.0 Eos % (Auto) 1.5 Baso % (Auto) 1.3 Neut # 11.1 H Lymph # 1.2 [place] # 1.4 H Eos # 0.2 Baso # 0.2 Neutrophils % (Manual) 84 H Lymphocytes % (Manual) 8 L Monocytes % (Manual) 7 Eosinophils % (Manual) 1 Platelet Estimate Normal Anisocytosis (manual) Slight PT 13.9 H INR 1.2 APTT 35 H Sodium 128 L Potassium 5.8 H Chloride 96 L Carbon Dioxide 23 Anion Gap 15 BUN 28 H Creatinine 0.9 Est GFR ( Amer) > 60 Est GFR (Non-Af Amer) > 60 Random Glucose 112 H Calcium 8.4 L Total Bilirubin 1.9 H AST 72 H D ALT 6 L D Alkaline Phosphatase 81 Total Creatine Kinase 165 CK-MB (Mass) 3.25 Troponin I 0.0810 NT-Pro-B Natriuret Pep 5990 H Total Protein 9.1 H Albumin 4.2 Globulin 4.9 H Albumin/Globulin Ratio 0.8 L Triglycerides 145 D Cholesterol 126 LDL Cholesterol Direct 71 HDL Cholesterol 34 Urine Color Urine Clarity Urine pH Ur Specific [place] Urine Protein Urine Glucose (UA) Urine Ketones Urine Blood Urine Nitrate Urine Bilirubin Urine Urobilinogen Ur Leukocyte Esterase Urine WBC (Auto) Urine RBC (Auto) Urine Opiates Screen Urine Methadone Screen Ur Barbiturates Screen Ur Phencyclidine Scrn Ur Amphetamines Screen U Benzodiazepines Scrn U Oth Cocaine Metabols U Cannabinoids Screen Blood Type Antibody Screen 12/11/17 12/11/17 12/11/17 17:47 17:47 19:31 WBC RBC Hgb Hct MCV MCH MCHC RDW Plt Count MPV Neut % (Auto) Lymph % (Auto) [place] % (Auto) Eos % (Auto) Baso % (Auto) Neut # Lymph # [place] # Eos # Baso # Neutrophils % (Manual) Lymphocytes % (Manual) Monocytes % (Manual) Eosinophils % (Manual) Platelet Estimate Anisocytosis (manual) PT INR APTT Sodium Potassium Chloride Carbon Dioxide Anion Gap BUN Creatinine Est GFR ( Amer) Est GFR (Non-Af Amer) Random Glucose Calcium Total Bilirubin AST ALT Alkaline Phosphatase Total Creatine Kinase CK-MB (Mass) Troponin I NT-Pro-B Natriuret Pep Total Protein Albumin Globulin Albumin/Globulin Ratio Triglycerides Cholesterol LDL Cholesterol Direct HDL Cholesterol Urine Color Yellow Urine Clarity Clear Urine pH 6.0 Ur Specific [place] 1.012 Urine Protein Negative Urine Glucose (UA) Normal Urine Ketones Negative Urine Blood Negative Urine Nitrate Negative Urine Bilirubin Negative Urine Urobilinogen Normal Ur Leukocyte Esterase Neg Urine WBC (Auto) < 1 Urine RBC (Auto) 1 Urine Opiates Screen Negative Urine Methadone Screen Negative Ur Barbiturates Screen Negative Ur Phencyclidine Scrn Negative Ur Amphetamines Screen Negative U Benzodiazepines Scrn Negative U Oth Cocaine Metabols Positive H U Cannabinoids Screen Negative Blood Type O POSITIVE Antibody Screen Negative
[2017-12-12] MEDS ORDERED: Apap-Butalbital-Caffeine 325-50-40mg Tab PO STA (14:29)
[2017-12-12] MEDS: Apap-Butalbital-Caffeine 325-50-40mg Tab PO PRN (15:03)
--- NOTE | 2017-12-12 15:11 | MRI ---
PROCEDURE: MRI BRAIN WITHOUT CONTRAST HISTORY: stroke [employer] infarct on CT COMPARISON: 12/11/2017 TECHNIQUE: Multiplanar, multisequence MR images of the brain were obtained without intravenous contrast enhancement. FINDINGS: HEMORRHAGE: There is a hemorrhagic infarct of the right occipital and temporal lobes in the distribution of the posterior cerebral artery. There is a 2.5 x 4.7 cm acute hemorrhage. Smaller hemorrhages are seen in the right parietal lobe. DWI: There is a large diffusion abnormality in the right medial occipital and temporal lobes and right parietal lobe consistent with an acute infarct with hemorrhagic conversion. BRAIN PARENCHYMA: As above VENTRICLES: Unremarkable. No hydrocephalus. CRANIUM: Unremarkable. ORBITS: Grossly unremarkable. PARANASAL SINUSES/MASTOIDS: Clear VASCULAR SYSTEM: Skull base flow voids intact. OTHER FINDINGS: The report concurs with the preliminary [facility] report IMPRESSION: Large hemorrhagic infarct in the distribution of the right posterior cerebral artery. See comments
[2017-12-12] MEDS: Albuterol 0.083% Inhal Sol (2.5 mg/3 mL) UD INH PRN (16:08)
[2017-12-12 17:01] VITALS: RESP 20
[2017-12-12] MEDS: Digoxin 125 mcg (0.125 mg) Tab PO SCH (17:39)
--- NOTE | 2017-12-12 19:47 | CON ---
DATE: 12/12/2017 CHIEF COMPLAINT: Headache, left eye blurry vision. HISTORY OF PRESENT ILLNESS: A 47-year-old man with past medical history of anxiety, depression, asthma, AFib, chronic back pain, CAD, CHF, COPD, hypertension, hyperlipidemia, chronic lower extremity, is very noncompliant with follow up of his general medical conditions. He presented to the emergency room with headache, diffuse pressure type; dizziness; for the past few days, which have worsened, and frequent headache and pressure behind the left eye and blurred vision and the left visual field. He underwent a CAT scan of the head, which showed pretty much a rare occipital and occipitotemporal lobe CVA representing with some mild hemorrhagic conversion of the right occipital temporal area. He is currently moved from the ICU due to not cooperating with the nursing as well as nutrition partner and is on the telemetry floor. He is seen now with some mild pressure headache, but no focal deficits except for a left homonymous hemianopia. PAST MEDICAL HISTORY: History of anxiety, depression, asthma, AFib, chronic back pain, CAD, CHF, COPD, hypertension, hyperlipidemia, and chronic lower extremity edema. ALLERGIES: ALLERGIC TO APIXABAN. APPARENTLY, ON HIS ALLERGY, I FEEL LIKE THE ALLERGY LIST IS COMPLETELY INCORRECT. THE PATIENT IS UNAWARE OF THE CONCEPT OF ANTICOAGULANTS. I THINK HE IS MORE OF A NONCOMPLIANT PATIENT. MEDICATIONS: He is not taking any medications, refusing. SOCIAL HISTORY: EtOH abuse at this time. He is a smoker, smokes 1-2 cigarettes a day, uses cocaine. FAMILY HISTORY: Noncontributory. REVIEW OF SYSTEMS: A 14-point review of systems negative except in the HPI. PHYSICAL EXAMINATION: GENERAL: Patient is sitting up at the edge of the bed, in no acute distress. VITAL SIGNS: Temperature afebrile, pulse rate 93, blood pressure , respiratory rate , and oxygen saturation 91% by room air. HEENT: Head is atraumatic and normocephalic. PERRLA. Extraocular muscles intact. NECK: Supple. No JVD. No adenopathy noted. LUNGS: Clear to auscultation. No adventitious sounds. HEART: Tachycardic. No murmur, rubs, or gallops. ABDOMEN: Soft, nontender, nondistended. Bowel sounds present. EXTREMITIES: There is lower extremity chronic ischemic changes. Some mild trace pedal edema. NEUROLOGIC: Patient is alert, oriented to person, place, month, and year. Speech is fluent without any errors. Cranial nerves II through XII intact except for left homonymous hemianopia, which is currently with his stroke. Motor: Normal tone. No pronator drift seen. Slight decreased otherwise moves all extremities equally. Sensory: Decreased light touch and pinprick up to the calves bilaterally. Decreased vibration of the toes. DTRs are 2+ throughout, 1 at the ankles. Coordination: [id number] intact. Gait is deferred for now. His proprioception is slightly off due to his left homonymous hemianopsia of the CVA. LABORATORY DATA: UTOX is positive for cocaine. Sodium is 128, potassium 5.8, chloride 96, carbon dioxide 23, BUN of 20, and creatinine 0.9. Random glucose of 112 . ASSESSMENT AND PLAN: This is a 47-year-old noncompliant patient with a history of anxiety, depression, asthma, atrial fibrillation, chronic back pain, coronary artery disease, congestive heart failure, chronic obstructive pulmonary disease, hypertension, hyperlipidemia, and chronic lower extremity edema, who presented with diffuse pressure headache, dizziness and blurry vision of the left eye, found to have an acute to subacute infarct in the right posterior cerebral artery distribution stressing the right occipital temporal area with hemorrhagic conversion with mild local mass effect. His UTOX is positive for cocaine. His right posterior cerebral artery territory infarct is secondary to diffuse atherosclerotic disease superimposed underlying atrial fibrillation and vasospasm from cocaine use causing hemorrhagic conversion. At this time, I recommended 1. Aspirin 81 mg. We will hold off anticoagulants such as Coumadin or Eliquis for at least 3 weeks from the acute onset of the infarct. 2. Cardiology followup recommendations reviewed. 3. Counseled the patient on adherence to blood pressure medications as well as anti-platelets as well as anticoagulation in the future. 4. Fioricet 1 tab q. 4 hours for the acute onset of headache. 5. Monitor electrolytes and correct accordingly. 6. Echocardiogram. 7. Carotid Doppler. 8. Physical therapy and occupational therapy evaluation and will likely need a Psychiatric evaluation for competency of medical decision making in addition to counseling on cessation of drug such as cocaine. Once again, thank you for this consult. Amilcar Hurt MD
[2017-12-13] MEDS: Apap-Butalbital-Caffeine 325-50-40mg Tab PO PRN ×2 (00:49→20:14)
[2017-12-13] MEDS: Oxycodone/Acetaminophen 5/325 mg Tab PO PRN ×2 (03:03→08:57)
[2017-12-13] MEDS: Albuterol 0.083% Inhal Sol (2.5 mg/3 mL) UD INH PRN (07:20)
[2017-12-13] MEDS ORDERED: DiphenhydrAMINE 50 mg/ml Inj IVP PRN (09:06)
[2017-12-13] MEDS: Pantoprazole 40 mg EC Tab PO SCH (09:30)
[2017-12-13 11:44] LABS: BASO # 0.1 K/uL (0.0-0.2); BASO % 1.2 % (0.0-2.0); EOS # 0.2 K/uL (0.0-0.7); EOS % 2.8 % (0.0-4.0); HEMOGLOBIN 14.1 g/dL (12.0-18.0); LYMPH % 22.4 % (20.0-40.0); MEAN CELL VOLUME 83.6 fL (80.0-94.0); MEAN CORPUSCULAR HEMOGLOBIN 27.2 pg (27.0-31.0); MEAN CORPUSCULAR HGB CONC 32.6 g/dL (33.0-37.0); MEAN PLATELET VOLUME 8.1 fL (7.2-11.7); MONO # 1.3 K/uL (0.0-0.8); MONO % 14.7 % (0.0-10.0); NEUT # 5.2 K/uL (1.8-7.0); NEUT % 58.9 % (50.0-75.0); RBC 5.17 Mil/uL (4.40-5.90); RED CELL DISTRIBUTION WIDTH 17.5 % (11.5-14.5); WHITE BLOOD COUNT 8.9 K/uL (4.8-10.8)
[2017-12-13 12:18] LABS: ALB/GLOB RATIO 0.9 (1.0-2.1); ALBUMIN 3.9 g/dL (3.5-5.0); ALT/SGPT 28 U/L (21-72); AST/SGOT 36 U/L (17-59); BLOOD UREA NITROGEN 29 mg/dL (9-20); CALCIUM 8.6 mg/dl (8.6-10.4); GFR AFRICAN-AMERICAN > 60; GFR NON-AFRICAN AMERICAN > 60; MAGNESIUM 1.8 mg/dL (1.6-2.3)
[2017-12-13] MEDS: DiphenhydrAMINE 50 mg/ml Inj IVP PRN (12:30)
--- NOTE | 2017-12-13 13:48 | CP.PCM.PN ---
Subjective - Date & Time of Evaluation Date of Evaluation: 12/13/17 Time of Evaluation: 13:45 - Subjective Subjective: PGY2 medicine progress note for Dr. Ocampo Patient seen and examined. Patient states he feels okay today but still complains of headache. He denies further visual changes. Patient denies chest pain, abdominal pain, nausea, vomiting. Patient also complains of generalized pruritus. Objective - Vital Signs/Intake and Output Vital Signs (last 24 hours): Temp Pulse Resp BP Pulse Ox 97.7 F 83 20 107/74 95 12/13/17 08:00 12/13/17 08:00 12/13/17 08:00 12/13/17 10:00 12/13/17 08:00 Intake and Output: 12/13/17 12/13/17 06:59 18:59 Intake Total 350 Output Total 200 Balance 150 - Medications Medications: Current Medications Acetaminophen/Butalbital/Caffeine (Fioricet) 1 tab PO Q4 PRN PRN Reason: Headache Last Admin: 12/13/17 00:49 Dose: 1 tab Albuterol Sulfate (Albuterol 0.083% Inhal Aliza (2.5 Mg/3 Ml) Ud) 2.5 mg INH RQ6 PRN PRN Reason: Shortness of Breath Last Admin: 12/13/17 07:20 Dose: 2.5 mg Alprazolam (Xanax) 1 mg PO Q6 PRN PRN Reason: Anxiety Last Admin: 12/12/17 20:39 Dose: 1 mg Carvedilol (Coreg) 12.5 mg PO BID [facility] Last Admin: 12/13/17 10:00 Dose: 12.5 mg Digoxin (Lanoxin) 0.125 mg PO DAILY@1800 [facility] Last Admin: 12/12/17 17:39 Dose: 0.125 mg Diphenhydramine HCl (Benadryl) 25 mg IVP Q6H PRN PRN Reason: Itching / Pruritus Last Admin: 12/13/17 12:30 Dose: 25 mg Fluoxetine HCl (Prozac) 40 mg PO DAILY [facility] Last Admin: 12/13/17 09:44 Dose: 40 mg Furosemide (Lasix) 40 mg PO DAILY [facility] Last Admin: 12/13/17 09:30 Dose: 40 mg Hydromorphone HCl (Dilaudid) 0.5 mg IVP Q6H PRN PRN Reason: Pain, moderate (4-7) Last Admin: 12/13/17 12:30 Dose: 0.5 mg Levetiracetam (Keppra) 500 mg PO BID [facility] Last Admin: 12/13/17 09:30 Dose: 500 mg Lisinopril (Zestril) 2.5 mg PO DAILY [facility] Last Admin: 12/13/17 12:07 Dose: Not Given Mupirocin (Bactroban 2% Nasal) 0.5 gm NANO BID [facility] Nicotine (Nicoderm Cq) 1 patch TD DAILY [facility] Last Admin: 12/13/17 09:44 Dose: 1 patch Oxycodone/Acetaminophen (Percocet 5/325 Mg Tab) 1 tab PO Q4H PRN PRN Reason: Pain, moderate (4-7) Stop: 12/15/17 13:33 Last Admin: 12/13/17 08:57 Dose: 1 tab Pantoprazole Sodium (Protonix Ec Tab) 40 mg PO DAILY [facility] Last Admin: 12/13/17 09:30 Dose: 40 mg Rosuvastatin Calcium (Crestor) 5 mg PO HS [facility] Last Admin: 12/12/17 21:13 Dose: 5 mg Spironolactone (Aldactone) 25 mg PO BID [facility] Last Admin: 12/13/17 09:30 Dose: 25 mg - Labs Labs: 12/13/17 11:32 12/13/17 11:32 PT 13.9 SECONDS (9.7-12.2) H 12/11/17 17:08 INR 1.2 12/11/17 17:08 APTT 35 SECONDS (21-34) H 12/11/17 17:08 - Constitutional Appears: No Acute Distress - Head Exam Head Exam: ATRAUMATIC, NORMOCEPHALIC - Eye Exam Eye Exam: EOMI - ENT Exam ENT Exam: Mucous Membranes Moist - Respiratory Exam Respiratory Exam: Decreased Breath Sounds (poor inspiration), NORMAL BREATHING PATTERN - Cardiovascular Exam Cardiovascular Exam: Irregular Rhythm, +S1, +S2 - GI/Abdominal Exam GI & Abdominal Exam: Soft, Normal Bowel Sounds. absent: Tenderness - Extremities Exam Additional comments: venous stasis changes, trace b/l edema - Neurological Exam Neurological Exam: Alert, Awake Additional comments: visual means examination positive for left homonymous hemianopsia - Skin Skin Exam: Warm Additional comments: hyperpigmented lesions globally on body Assessment and Plan - Assessment and Plan (Free Text) Assessment: CVA Repeat head CT 12/12/17: addendum added that comments on evolutionary changes involving right occipital temporal infarct when compared to prior with local mass effect in distribution of right STRATEGIC PLANNING MANAGER (see full report) CT Head (12/11/17)-Subacute right STRATEGIC PLANNING MANAGER territory infarct with questionable scattered areas of reperfusion hemorrhage. There is a more chronic appearing infarct the left occipitoparietal watershed zone. Suspect minimal chronic periventricular white matter ischemic changes MRI-Right STRATEGIC PLANNING MANAGER infarction with intraparanchymal hemorrhage 3.4 x 6.2cm, small right occipital SAH Dr. Tavera, neurosurgery, consulted- help appreciated states no intervention at this time per ER documentation Dr. Wagner Hurt, neurology, consulted- help appreciated patient to be started on Keppra 500mg PO BID patient can start Eliquis 3 weeks after bleed but will need repeat CT head prior to starting medication will check carotid dopplers and echo per recommendation Patient was initially in ICU, now transferred to CHF patient has history systolic CHF Echo 02/2017: LVSF SEVERELY REDUCED, Severe global hypokinesis of LV Patient refused ICD implant in past Hx of 4 stents continue aldactone 25mg BID (hold SBP <90) continue coreg 12.5 PO BID Lasix 40mg PO daily Dr. Morgan consulted, help appreciated discussed with patient the risks of having A-fib and patient agreeable for Eliquis when cleared from neurology perspective Afib patient refusing to wear monitor dig 0.125 daily CAD Hx of 4 stents Meds: holding aspirin due to bleed aspirin 81mg Cont home med Crestor 5mg PO HS Headache fioricet 1 tab q4prn HTN lisinopril 2.5 mg PO daily Spironolactone 25 mg PO BID Electrolyte imbalance continue to monitor and replete Elevated LFTs continue to monitor Cocaine abuse patient counseled on cessation hold beta blockers UDS positive Chronic back pain percocet 5/325 q4prn dilaudid 0.5mg IVP q6prn if patient gets IV access Asthma/ COPD Albuterol neb prn Hx psychiatric disorder Prozac 40mg PO daily Xanax 1mg PO Q6 MRSA nares starting bactroban ointment Prophylaxis Discussed tobacco cessation. Patient reports quitting 9 months ago; however, admits to smoking 1-2 cigarettes weekly. Nicoderm patch protonix 40mg PO daily Regular Diet SCDs Holding all chemical anticoagulation due to evolving brain intraparenchymal bleed All medical management as per Dr. Ocampo
[2017-12-13] MEDS: Digoxin 125 mcg (0.125 mg) Tab PO SCH (17:52)
[2017-12-13] MEDS: Mupirocin 2% Ointment (NASAL) NAS SCH (21:56)
[2017-12-14] MEDS: Oxycodone/Acetaminophen 5/325 mg Tab PO PRN (05:20)
[2017-12-14 07:19] LABS: BASO # 0.1 K/uL (0.0-0.2); BASO % 1.5 % (0.0-2.0); EOS # 0.3 K/uL (0.0-0.7); EOS % 3.5 % (0.0-4.0); HEMOGLOBIN 13.9 g/dL (12.0-18.0); LYMPH # 1.8 K/uL (1.0-4.3); MEAN CORPUSCULAR HEMOGLOBIN 27.5 pg (27.0-31.0); MEAN CORPUSCULAR HGB CONC 32.8 g/dL (33.0-37.0); MEAN PLATELET VOLUME 8.2 fL (7.2-11.7); MONO # 1.2 K/uL (0.0-0.8); MONO % 13.1 % (0.0-10.0); NEUT # 5.7 K/uL (1.8-7.0); NEUT % 61.9 % (50.0-75.0); RBC 5.05 Mil/uL (4.40-5.90); RED CELL DISTRIBUTION WIDTH 17.5 % (11.5-14.5); WHITE BLOOD COUNT 9.2 K/uL (4.8-10.8)
[2017-12-14 07:38] LABS: ALB/GLOB RATIO 0.9 (1.0-2.1); ALBUMIN 3.9 g/dL (3.5-5.0); ALT/SGPT 26 U/L (21-72); AST/SGOT 34 U/L (17-59); BLOOD UREA NITROGEN 34 mg/dL (9-20); CALCIUM 8.5 mg/dl (8.6-10.4); GFR AFRICAN-AMERICAN > 60; GFR NON-AFRICAN AMERICAN > 60
--- NOTE | 2017-12-14 07:55 | CP.PCM.PN ---
Subjective - Date & Time of Evaluation Date of Evaluation: 12/14/17 Time of Evaluation: 07:55 - Subjective Subjective: Medicine progress note for Dr. Ocampo's service Patient was seen and examined at bedside in no acute distress. Patient was sitting in chair eating breakfast. He reports he feels dizzy sometimes and wants his Dilaudid. He appears sweating and drowsy (had to wake him up several times during interview). Patient is agitated when woken up and uncooperative when asking questions. Review of systems is limited due to patient being uncooperative; Patient admits to having pain behind his right eye and some nausea; he denies having chest pain, abdominal pain, leg pain, and vomiting. Objective - Vital Signs/Intake and Output Vital Signs (last 24 hours): Temp Pulse Resp BP Pulse Ox 98.4 F 89 20 136/72 95 12/14/17 00:50 12/14/17 00:50 12/14/17 00:50 12/14/17 00:50 12/14/17 00:50 Intake and Output: 12/14/17 12/14/17 06:59 18:59 Intake Total 700 Output Total 800 Balance -100 - Medications Medications: Current Medications Acetaminophen/Butalbital/Caffeine (Fioricet) 1 tab PO Q4 PRN PRN Reason: Headache Last Admin: 12/13/17 20:14 Dose: 1 tab Albuterol Sulfate (Albuterol 0.083% Inhal Aliza (2.5 Mg/3 Ml) Ud) 2.5 mg INH RQ6 PRN PRN Reason: Shortness of Breath Last Admin: 12/13/17 07:20 Dose: 2.5 mg Alprazolam (Xanax) 1 mg PO Q6 PRN PRN Reason: Anxiety Last Admin: 12/13/17 19:25 Dose: 1 mg Carvedilol (Coreg) 12.5 mg PO BID [facility] Last Admin: 12/13/17 17:53 Dose: 12.5 mg Digoxin (Lanoxin) 0.125 mg PO DAILY@1800 [facility] Last Admin: 12/13/17 17:52 Dose: 0.125 mg Diphenhydramine HCl (Benadryl) 25 mg IVP Q6H PRN PRN Reason: Itching / Pruritus Last Admin: 12/13/17 12:30 Dose: 25 mg Fluoxetine HCl (Prozac) 40 mg PO DAILY [facility] Last Admin: 12/13/17 09:44 Dose: 40 mg Furosemide (Lasix) 40 mg PO DAILY [facility] Last Admin: 12/13/17 09:30 Dose: 40 mg Hydromorphone HCl (Dilaudid) 0.5 mg IVP Q6H PRN PRN Reason: Pain, moderate (4-7) Last Admin: 12/14/17 07:49 Dose: 0.5 mg Levetiracetam (Keppra) 500 mg PO BID [facility] Last Admin: 12/13/17 17:53 Dose: 500 mg Lisinopril (Zestril) 2.5 mg PO DAILY [facility] Last Admin: 12/13/17 12:07 Dose: Not Given Mupirocin (Bactroban 2% Nasal) 0.5 gm NANO BID [facility] Last Admin: 12/13/17 21:56 Dose: 0.5 gm Nicotine (Nicoderm Cq) 1 patch TD DAILY [facility] Last Admin: 12/13/17 09:44 Dose: 1 patch Oxycodone/Acetaminophen (Percocet 5/325 Mg Tab) 1 tab PO Q4H PRN PRN Reason: Pain, moderate (4-7) Stop: 12/15/17 13:33 Last Admin: 12/14/17 05:20 Dose: 1 tab Pantoprazole Sodium (Protonix Ec Tab) 40 mg PO DAILY [facility] Last Admin: 12/13/17 09:30 Dose: 40 mg Rosuvastatin Calcium (Crestor) 5 mg PO HS [facility] Last Admin: 12/13/17 22:02 Dose: 5 mg Spironolactone (Aldactone) 25 mg PO BID [facility] Last Admin: 12/13/17 17:52 Dose: 25 mg - Labs Labs: 12/14/17 07:14 12/14/17 07:14 PT 13.9 SECONDS (9.7-12.2) H 12/11/17 17:08 INR 1.2 12/11/17 17:08 APTT 35 SECONDS (21-34) H 12/11/17 17:08 - Head Exam Head Exam: ATRAUMATIC, NORMAL INSPECTION - Eye Exam Eye Exam: EOMI - ENT Exam ENT Exam: Mucous Membranes Moist - Respiratory Exam Respiratory Exam: NORMAL BREATHING PATTERN. absent: Rales, Rhonchi, Wheezes, Respiratory Distress - Cardiovascular Exam Cardiovascular Exam: Irregular Rhythm, +S1, +S2 - GI/Abdominal Exam GI & Abdominal Exam: Soft, Normal Bowel Sounds. absent: Distended, Firm, Tenderness - Extremities Exam Extremities Exam: absent: Pedal Edema, Tenderness - Neurological Exam Additional comments: Lethargic, drowsy - Psychiatric Exam Psychiatric exam: Agitated - Skin Skin Exam: Dry, Intact, Normal Color, Warm Assessment and Plan - Assessment and Plan (Free Text) Plan: Assessment: (1) CVA * Repeat head CT 12/12/17: addendum added that comments on evolutionary changes involving right occipital temporal infarct when compared to prior with local mass effect in distribution of right LEAD QUALITY TECHNICIAN (see full report) * CT Head (12/11/17)-Subacute right LEAD QUALITY TECHNICIAN territory infarct with questionable scattered areas of reperfusion hemorrhage. There is a more chronic appearing infarct the left occipitoparietal watershed zone. Suspect minimal chronic periventricular white matter ischemic changes * MRI-Right LEAD QUALITY TECHNICIAN infarction with intraparanchymal hemorrhage 3.4 x 6.2cm, small right occipital SAH * Dr. Tavera, neurosurgery, consulted- help appreciated * states no intervention at this time per ER documentation * Dr. Wagner Hurt, neurology, consulted- help appreciated * patient to be started on Keppra 500mg PO BID * patient can start Eliquis 3 weeks after bleed but will need repeat CT head prior to starting medication * will check carotid dopplers and echo per recommendation * Carotid dopplers: f/u report * Echo (12/13/17): severely dilated LV with global hypokinesis; LV systolic dysfunction; EF 25%; moderately diastolic dysfunction; grade II pseudonormal filling; elevated LA pressure; RV moderately dilated; systolic function moderately reduced; no valvular abnormality; no pericardial effusion. Patient was initially in ICU, now transferred to ; Placed on telemetry on 12/14 (2) CHF * patient has history systolic CHF * Echo 02/2017: LVSF SEVERELY REDUCED, Severe global hypokinesis of LV * Echo (12/13/17): severely dilated LV with global hypokinesis; LV systolic dysfunction; EF 25%; moderately diastolic dysfunction; grade II pseudonormal filling; elevated LA pressure; RV moderately dilated; systolic function moderately reduced; no valvular abnormality; no pericardial effusion. * Patient refused ICD implant in past * Hx of 4 stents * Medications: * continue aldactone 25mg BID (hold SBP <90) * continue coreg 12.5 PO BID * Lasix 40mg PO daily Dr. Morgan consulted, help appreciated * discussed with patient the risks of having A-fib and patient agreeable for Eliquis when cleared from neurology perspective (3) Afib * patient refused to wear monitor (12/13/17) * dig 0.125 daily * transfer to telemetry (12/14/17) (4) CAD * Hx of 4 stents * Meds: * holding aspirin due to bleed * aspirin 81mg * Cont home med Crestor 5mg PO HS (5) Headache * fioricet 1 tab q4prn (6) HTN * lisinopril 2.5 mg PO daily * Spironolactone 25 mg PO BID (7) Electrolyte imbalance * continue to monitor and replete (8) Elevated LFTs * continue to monitor (9) Cocaine abuse * patient counseled on cessation * hold beta blockers (except Coreg- can continue Coreg 12.5mg PO BID as per Dr. Ocampo) * UDS positive Chronic back pain * percocet 5/325 q4prn * dilaudid 0.5mg IVP q6prn if patient gets IV access Asthma/ COPD * Albuterol neb prn Hx psychiatric disorder * Prozac 40mg PO daily * Xanax 1mg PO Q6 MRSA nares * starting bactroban ointment * contact precautions Prophylaxis * Discussed tobacco cessation. Patient reports quitting 9 months ago; however, admits to smoking 1-2 cigarettes weekly. * Nicoderm patch * protonix 40mg PO daily * Regular Diet * SCDs * Holding all chemical anticoagulation due to evolving brain intraparenchymal bleed * PT Will discuss with Dr. Ocampo.
--- NOTE | 2017-12-14 09:12 | CARD ---
APPROVED REPORT EKG Measurement Heart [id number] <Conclusion> Atrial fibrillation RBBB LVH Right superior axis deviation Inferior infarct, age undetermined poor r wave progression Nonspecific ST abnormality Abnormal ECG
[2017-12-14] MEDS: Pantoprazole 40 mg EC Tab PO SCH (10:12)
[2017-12-14] MEDS: Mupirocin 2% Ointment (NASAL) NAS SCH ×2 (10:14→18:42)
--- NOTE | 2017-12-14 16:48 | CARD ---
APPROVED REPORT EXAM: LIMITED Two-dimensional and M-mode echocardiogram with Doppler and color Doppler. Other Information Quality : TDSRhythm : INDICATION CVA/TIA Congestive Heart Failure 2D DIMENSIONS IVSd1.1 (0.7-1.1cm)LVDd7.3 (3.9-5.9cm) PWd1.0 (0.7-1.1cm)LVDs5.9 (2.5-4.0cm) FS (%) 18.7 %LVEF (%)25.0 (>50%) M-Mode DIMENSIONS Left Atrium (MM)5.94 (2.5-4.0cm)Aortic Root3.77 (2.2-3.7cm) Aortic Cusp Exc.2.43 (1.5-2.0cm) Mitral Valve MV E Vbtvzpyb295.0cm/sMV A Ozmxwaxy94.8cm/sE/A ratio1.5 TDI E/Lateral E'0.0E/Medial E'0.0 Tricuspid Valve TR Peak [id number]/sTR Peak Gr.[id number] LEFT VENTRICLE The Left Ventricle is severely dilated. There is normal left ventricular wall thickness. Left ventricle systolic function is severely impaired. The Ejection Fraction is - 25% Global hypokinesis. Transmitral Doppler flow pattern is Grade II-pseudonormal filling dynamics. Elevated left atrial pressure. RIGHT VENTRICLE The right ventricle is moderately dilated. Systolic function is moderately reduced. ATRIA The left atrium is moderately dilated. The right atrium is moderately dilated. AORTIC VALVE The aortic valve is normal in structure. No aortic regurgitation is present. MITRAL VALVE The mitral valve is normal in structure. There is no mitral valve regurgitation noted. TRICUSPID VALVE The tricuspid valve is normal in structure. There is mild tricuspid regurgitation. Right ventricular systolic pressure is estimated at - 32 mmHg. PULMONIC VALVE The pulmonic valve is not well visualized. There is trace pulmonic valvular regurgitation. GREAT VESSELS The aortic root is normal in size. The IVC was not visualized. PERICARDIAL EFFUSION There is no pericardial effusion. <Conclusion> The Left Ventricle is severely dilated with global hypokinesis. Left ventricle systolic function is severely impaired. The Ejection Fraction is - 25% Moderate diastolic dysfunction. Grade II-pseudonormal filling dynamics. Elevated left atrial pressure. The right ventricle is moderately dilated. Systolic function is moderately reduced. No significant valvular abnormality. No gross pericardial effusion.
[2017-12-14] MEDS: Digoxin 125 mcg (0.125 mg) Tab PO SCH (18:42)
[2017-12-14] MEDS: DiphenhydrAMINE 50 mg/ml Inj IVP PRN (19:57)
[2017-12-15] MEDS: DiphenhydrAMINE 50 mg/ml Inj IVP PRN ×2 (02:39→18:11)
--- NOTE | 2017-12-15 06:45 | CP.PCM.PN ---
Subjective - Date & Time of Evaluation Date of Evaluation: 12/15/17 Time of Evaluation: 06:45 - Subjective Subjective: Medicine Progress note for Dr. Ocampo's service Patient was seen and examined at bedside in no acute distress. Patient was sleeping went entering the room. Patient still complains of eye pain, headache, and some nausea and dizziness. Patient denies having chest pain, abdominal pain , vomiting, fevers, chills, and leg pain/swelling. Objective - Vital Signs/Intake and Output Vital Signs (last 24 hours): Temp Pulse Resp BP Pulse Ox 98.3 F 71 20 132/91 H 95 12/14/17 23:40 12/14/17 23:40 12/14/17 23:40 12/14/17 23:40 12/14/17 23:40 Intake and Output: 12/14/17 12/15/17 18:59 06:59 Intake Total 240 100 Balance 240 100 - Medications Medications: Current Medications Acetaminophen/Butalbital/Caffeine (Fioricet) 1 tab PO Q4 PRN PRN Reason: Headache Last Admin: 12/13/17 20:14 Dose: 1 tab Albuterol Sulfate (Albuterol 0.083% Inhal Aliza (2.5 Mg/3 Ml) Ud) 2.5 mg INH RQ6 PRN PRN Reason: Shortness of Breath Last Admin: 12/13/17 07:20 Dose: 2.5 mg Alprazolam (Xanax) 1 mg PO Q6 PRN PRN Reason: Anxiety Last Admin: 12/15/17 02:40 Dose: 1 mg Carvedilol (Coreg) 12.5 mg PO BID [facility] Last Admin: 12/14/17 18:48 Dose: 12.5 mg Digoxin (Lanoxin) 0.125 mg PO DAILY@1800 [facility] Last Admin: 12/14/17 18:42 Dose: 0.125 mg Diphenhydramine HCl (Benadryl) 25 mg IVP Q6H PRN PRN Reason: Itching / Pruritus Last Admin: 12/15/17 02:39 Dose: 25 mg Fluoxetine HCl (Prozac) 40 mg PO DAILY [facility] Last Admin: 12/14/17 10:13 Dose: 40 mg Furosemide (Lasix) 40 mg PO DAILY [facility] Last Admin: 12/14/17 10:14 Dose: 40 mg Hydromorphone HCl (Dilaudid) 0.5 mg IVP Q6H PRN PRN Reason: Pain, moderate (4-7) Last Admin: 12/15/17 02:39 Dose: 0.5 mg Levetiracetam (Keppra) 500 mg PO BID [facility] Last Admin: 12/14/17 18:42 Dose: 500 mg Lisinopril (Zestril) 2.5 mg PO DAILY [facility] Last Admin: 12/14/17 10:12 Dose: 2.5 mg Mupirocin (Bactroban 2% Nasal) 0.5 gm NANO BID [facility] Last Admin: 12/14/17 18:42 Dose: 0.5 gm Nicotine (Nicoderm Cq) 1 patch TD DAILY [facility] Last Admin: 12/14/17 10:12 Dose: 1 patch Oxycodone/Acetaminophen (Percocet 5/325 Mg Tab) 1 tab PO Q4H PRN PRN Reason: Pain, moderate (4-7) Stop: 12/15/17 13:33 Last Admin: 12/14/17 05:20 Dose: 1 tab Pantoprazole Sodium (Protonix Ec Tab) 40 mg PO DAILY [facility] Last Admin: 12/14/17 10:12 Dose: 40 mg Rosuvastatin Calcium (Crestor) 5 mg PO HS [facility] Last Admin: 12/14/17 22:18 Dose: Not Given Spironolactone (Aldactone) 25 mg PO BID [facility] Last Admin: 12/14/17 18:42 Dose: 25 mg - Labs Labs: 12/14/17 07:14 12/14/17 07:14 PT 13.9 SECONDS (9.7-12.2) H 12/11/17 17:08 INR 1.2 12/11/17 17:08 APTT 35 SECONDS (21-34) H 12/11/17 17:08 - Additional Findings Additional findings: - Head Exam Head Exam: ATRAUMATIC, NORMAL INSPECTION - Eye Exam Eye Exam: EOMI - ENT Exam ENT Exam: Mucous Membranes Moist - Respiratory Exam Respiratory Exam: NORMAL BREATHING PATTERN. absent: Rales, Rhonchi, Wheezes, Respiratory Distress - Cardiovascular Exam Cardiovascular Exam: Irregular Rhythm, +S1, +S2 - GI/Abdominal Exam GI & Abdominal Exam: Soft, Normal Bowel Sounds. absent: Distended, Firm, Tenderness - Extremities Exam Extremities Exam: absent: Pedal Edema, Tenderness - Neurological Exam Additional comments: drowsy - Psychiatric Exam Psychiatric exam: calm - Skin Skin Exam: Dry, Intact, Normal Color, Warm Assessment and Plan - Assessment and Plan (Free Text) Plan: (1) CVA * CT Head (12/11/17)-Subacute right HOUSING COORDINATOR territory infarct with questionable scattered areas of reperfusion hemorrhage. There is a more chronic appearing infarct the left occipitoparietal watershed zone. Suspect minimal chronic periventricular white matter ischemic changes * Repeat head CT 12/12/17: addendum added that comments on evolutionary changes involving right occipital temporal infarct when compared to prior with local mass effect in distribution of right HOUSING COORDINATOR (see full report) * MRI-Right HOUSING COORDINATOR infarction with intraparanchymal hemorrhage 3.4 x 6.2cm, small right occipital SAH * Dr. Tavera, neurosurgery, consulted- help appreciated * states no intervention at this time per ER documentation * Dr. Wagner Hurt, neurology, consulted- help appreciated * patient to be started on Keppra 500mg PO BID * patient can start Eliquis 3 weeks after bleed but will need repeat CT head prior to starting medication * will check carotid dopplers and echo per recommendation * Carotid dopplers: no significant stenosis of left and right extracranial carotid arteries * Echo (12/13/17): severely dilated LV with global hypokinesis; LV systolic dysfunction; EF 25%; moderately diastolic dysfunction; grade II pseudonormal filling; elevated LA pressure; RV moderately dilated; systolic function moderately reduced; no valvular abnormality; no pericardial effusion. Patient was initially in ICU, now transferred to ; Placed on telemetry on 12/14 (2) CHF * patient has history systolic CHF * Echo 02/2017: LVSF SEVERELY REDUCED, Severe global hypokinesis of LV * Echo (12/13/17): severely dilated LV with global hypokinesis; LV systolic dysfunction; EF 25%; moderately diastolic dysfunction; grade II pseudonormal filling; elevated LA pressure; RV moderately dilated; systolic function moderately reduced; no valvular abnormality; no pericardial effusion. * Patient refused ICD implant in past * Hx of 4 stents * Medications: * continue aldactone 25mg BID (hold SBP <90) * continue coreg 12.5 PO BID * Lasix 40mg PO daily Dr. Morgan consulted, help appreciated * discussed with patient the risks of having A-fib and patient agreeable for Eliquis when cleared from neurology perspective (3) Afib * patient refused to wear monitor (12/13/17) * dig 0.125 daily * transfer to telemetry (12/14/17) (4) CAD * Hx of 4 stents * Meds: * holding aspirin due to bleed * aspirin 81mg * Cont home med Crestor 5mg PO HS (5) Headache * fioricet 1 tab q4prn (6) HTN * lisinopril 2.5 mg PO daily * Spironolactone 25 mg PO BID (7) Electrolyte imbalance * continue to monitor and replete (8) Elevated LFTs * continue to monitor (9) Cocaine abuse * patient counseled on cessation * hold beta blockers (except Coreg- can continue Coreg 12.5mg PO BID as per Dr. Ocampo) * UDS positive Chronic back pain * percocet 5/325 q4prn * dilaudid 0.5mg IVP q6prn if patient gets IV access Asthma/ COPD * Albuterol neb prn Hx psychiatric disorder * Prozac 40mg PO daily * Xanax 1mg PO Q6 MRSA nares * starting bactroban ointment * contact precautions Prophylaxis * Discussed tobacco cessation. Patient reports quitting 9 months ago; however, admits to smoking 1-2 cigarettes weekly. * Nicoderm patch * protonix 40mg PO daily * Regular Diet * SCDs * Holding all chemical anticoagulation due to evolving brain intraparenchymal bleed * PT Discussed with Dr. Ocampo.
[2017-12-15] MEDS: Pantoprazole 40 mg EC Tab PO SCH (09:18)
[2017-12-15] MEDS: Mupirocin 2% Ointment (NASAL) NAS SCH ×3 (09:19→18:26)
[2017-12-15 09:26] LABS: BASO # 0.1 K/uL (0.0-0.2); EOS # 0.3 K/uL (0.0-0.7); HEMOGLOBIN 14.5 g/dL (12.0-18.0); LYMPH # 1.4 K/uL (1.0-4.3); LYMPH % 13.5 % (20.0-40.0); MEAN CELL VOLUME 83.7 fL (80.0-94.0); MEAN CORPUSCULAR HEMOGLOBIN 26.8 pg (27.0-31.0); MEAN PLATELET VOLUME 8.2 fL (7.2-11.7); MONO # 1.2 K/uL (0.0-0.8); NEUT # 7.5 K/uL (1.8-7.0); NEUT % 71.5 % (50.0-75.0); RBC 5.42 Mil/uL (4.40-5.90); RED CELL DISTRIBUTION WIDTH 17.5 % (11.5-14.5); WHITE BLOOD COUNT 10.5 K/uL (4.8-10.8)
[2017-12-15 09:47] LABS: ALB/GLOB RATIO 0.8 (1.0-2.1); ALBUMIN 4.1 g/dL (3.5-5.0); ALT/SGPT 27 U/L (21-72); AST/SGOT 43 U/L (17-59); BLOOD UREA NITROGEN 28 mg/dL (9-20); CALCIUM 8.9 mg/dl (8.6-10.4); GFR AFRICAN-AMERICAN > 60; GFR NON-AFRICAN AMERICAN > 60
--- NOTE | 2017-12-15 11:04 | VASCLAB ---
PROCEDURE: HISTORY: CVA COMPARISON: None available. TECHNIQUE: Grayscale and duplex Doppler evaluation of the cervical carotid and vertebral arteries were performed. The common carotid, carotid bifurcations and cervical Internal Carotid Artery (ICA) and proximal External Carotid Artery (ECA) were evaluated. The vertebral arteries were evaluated for gross patency and flow direction. Report prepared by SERA Molina FINDINGS: RIGHT CAROTID ARTERIES: 1. Common Carotid Artery: No significant focal plaque formation of the right common carotid artery. Maximum Peak Systolic velocity: 103 cm/sec: End-diastolic velocity 23 cm/sec. 2. Carotid Bifurcation: No significant plaque formation. Maximum Peak Systolic velocity: 74 cm/sec: End-diastolic velocity 18 cm/sec. 3. Internal Carotid Artery: No significant plaque formation Plaque description: 3.1. Proximal Segment: Peak systolic velocity 47cm/sec: End-diastolic velocity 20 cm/sec - % stenosis 0-15% 3.2. Middle Segment: Peak systolic velocity 106 cm/sec: End-diastolic velocity 30 cm/sec - % stenosis 0-15% 3.3. Distal Segment: Peak systolic velocity 98 cm/sec: End-diastolic velocity 45 cm/sec - % stenosis 0-15% 4. External Carotid Artery: No significant focal plaque formation. Peak systolic velocity 118 cm/sec 5. ICA/CCA Ratio: 1.3 LEFT CAROTID ARTERIES: 1. Common Carotid Artery: No significant focal plaque formation of the left common carotid artery. Maximum Peak Systolic velocity: 92 cm/sec: End-diastolic velocity 27 cm/sec. 2. Carotid Bifurcation: No significant plaque formation. Maximum Peak Systolic velocity: 57 cm/sec: End-diastolic velocity 13 cm/sec. 3. Internal Carotid Artery: No significant plaque formation Plaque description: 3.1. Proximal Segment: Peak systolic velocity 44 cm/sec: End-diastolic velocity 20 cm/sec - % stenosis 0-15% 3.2. Middle Segment: Peak systolic velocity 72 cm/sec: End-diastolic velocity 32 cm/sec - % stenosis 0-15% 3.3. Distal Segment: Peak systolic velocity 62 cm/sec: End-diastolic velocity 22 cm/sec - % stenosis 0-15% 4. External Carotid Artery: No significant focal plaque formation. Peak systolic velocity 96 cm/sec 5. ICA/CCA Ratio: 1.0 VERTEBRAL ARTERIES: 1. Right Vertebral Artery: The right vertebral artery flow direction is antegrade. 2. Left Vertebral Artery: The left vertebral artery flow direction is antegrade. OTHER FINDINGS: 1. Right Brachial Blood pressure: 150 mmHg. 2. Left Brachial Blood pressure: 160 mmHg. IMPRESSION: RIGHT: Duplex scan does not suggest hemodynamically significant stenosis of the right extracranial carotid arteries. LEFT: Duplex scan does not suggest hemodynamically significant stenosis of the left extracranial carotid arteries.
[2017-12-15 15:59] VITALS: O2SAT 96
[2017-12-15] MEDS: Digoxin 125 mcg (0.125 mg) Tab PO SCH (17:54)
[2017-12-15 17:55] VITALS: PULSE 76
[2017-12-16] MEDS: DiphenhydrAMINE 50 mg/ml Inj IVP PRN (00:45)
--- NOTE | 2017-12-16 07:10 | CP.PCM.PN ---
Subjective - Date & Time of Evaluation Date of Evaluation: 12/16/17 Time of Evaluation: 07:09 Objective - Vital Signs/Intake and Output Vital Signs (last 24 hours): Temp Pulse Resp BP Pulse Ox 97.9 F 63 20 166/83 H 96 12/15/17 23:10 12/15/17 23:10 12/15/17 23:10 12/15/17 23:10 12/15/17 23:10 Intake and Output: 12/16/17 12/16/17 06:59 18:59 Intake Total 600 Balance 600 - Medications Medications: Current Medications Acetaminophen/Butalbital/Caffeine (Fioricet) 1 tab PO Q4 PRN PRN Reason: Headache Last Admin: 12/13/17 20:14 Dose: 1 tab Albuterol Sulfate (Albuterol 0.083% Inhal Aliza (2.5 Mg/3 Ml) Ud) 2.5 mg INH RQ6 PRN PRN Reason: Shortness of Breath Last Admin: 12/13/17 07:20 Dose: 2.5 mg Alprazolam (Xanax) 1 mg PO Q6 PRN PRN Reason: Anxiety Last Admin: 12/16/17 06:51 Dose: 1 mg Carvedilol (Coreg) 12.5 mg PO BID [facility] Last Admin: 12/15/17 17:54 Dose: 12.5 mg Digoxin (Lanoxin) 0.125 mg PO DAILY@1800 [facility] Last Admin: 12/15/17 17:54 Dose: 0.125 mg Diphenhydramine HCl (Benadryl) 25 mg IVP Q6H PRN PRN Reason: Itching / Pruritus Last Admin: 12/16/17 00:45 Dose: 25 mg Fluoxetine HCl (Prozac) 40 mg PO DAILY [facility] Last Admin: 12/15/17 09:19 Dose: 40 mg Furosemide (Lasix) 40 mg PO DAILY [facility] Last Admin: 12/15/17 09:18 Dose: 40 mg Hydromorphone HCl (Dilaudid) 0.5 mg IVP Q6H PRN PRN Reason: Pain, moderate (4-7) Last Admin: 12/16/17 00:46 Dose: 0.5 mg Levetiracetam (Keppra) 500 mg PO BID [facility] Last Admin: 12/15/17 17:54 Dose: 500 mg Lisinopril (Zestril) 2.5 mg PO DAILY [facility] Last Admin: 12/15/17 09:18 Dose: 2.5 mg Mupirocin (Bactroban 2% Nasal) 0.5 gm NANO BID [facility] Last Admin: 12/15/17 18:26 Dose: Not Given Nicotine (Nicoderm Cq) 1 patch TD DAILY [facility] Last Admin: 12/15/17 09:18 Dose: 1 patch Pantoprazole Sodium (Protonix Ec Tab) 40 mg PO DAILY [facility] Last Admin: 12/15/17 09:18 Dose: 40 mg Rosuvastatin Calcium (Crestor) 5 mg PO HS [facility] Last Admin: 12/15/17 22:46 Dose: Not Given Spironolactone (Aldactone) 25 mg PO BID [facility] Last Admin: 12/15/17 17:54 Dose: 25 mg - Labs Labs: 12/15/17 09:05 12/15/17 09:05 PT 13.9 SECONDS (9.7-12.2) H 12/11/17 17:08 INR 1.2 12/11/17 17:08 APTT 35 SECONDS (21-34) H 12/11/17 17:08 Assessment and Plan - Assessment and Plan (Free Text) Plan: (1) CVA * CT Head (12/11/17)-Subacute right MEDIA PRODUCTION OPERATOR territory infarct with questionable scattered areas of reperfusion hemorrhage. There is a more chronic appearing infarct the left occipitoparietal watershed zone. Suspect minimal chronic periventricular white matter ischemic changes * Repeat head CT 12/12/17: addendum added that comments on evolutionary changes involving right occipital temporal infarct when compared to prior with local mass effect in distribution of right MEDIA PRODUCTION OPERATOR (see full report) * MRI-Right MEDIA PRODUCTION OPERATOR infarction with intraparanchymal hemorrhage 3.4 x 6.2cm, small right occipital SAH * Dr. Tavera, neurosurgery, consulted- help appreciated * states no intervention at this time per ER documentation * Dr. Wagner Hurt, neurology, consulted- help appreciated * patient to be started on Keppra 500mg PO BID * patient can start Eliquis 3 weeks after bleed but will need repeat CT head prior to starting medication * will check carotid dopplers and echo per recommendation * Carotid dopplers: no significant stenosis of left and right extracranial carotid arteries * Echo (12/13/17): severely dilated LV with global hypokinesis; LV systolic dysfunction; EF 25%; moderately diastolic dysfunction; grade II pseudonormal filling; elevated LA pressure; RV moderately dilated; systolic function moderately reduced; no valvular abnormality; no pericardial effusion. Patient was initially in ICU, now transferred to ; Placed on telemetry on 12/14 (2) CHF * patient has history systolic CHF * Echo 02/2017: LVSF SEVERELY REDUCED, Severe global hypokinesis of LV * Echo (12/13/17): severely dilated LV with global hypokinesis; LV systolic dysfunction; EF 25%; moderately diastolic dysfunction; grade II pseudonormal filling; elevated LA pressure; RV moderately dilated; systolic function moderately reduced; no valvular abnormality; no pericardial effusion. * Patient refused ICD implant in past * Hx of 4 stents * Medications: * continue aldactone 25mg BID (hold SBP <90) * continue coreg 12.5 PO BID * Lasix 40mg PO daily Dr. Morgan consulted, help appreciated * discussed with patient the risks of having A-fib and patient agreeable for Eliquis when cleared from neurology perspective (3) Afib * patient refused to wear monitor (12/13/17) * dig 0.125 daily * transfer to telemetry (12/14/17) (4) CAD * Hx of 4 stents * Meds: * holding aspirin due to bleed * aspirin 81mg * Cont home med Crestor 5mg PO HS (5) Headache * fioricet 1 tab q4prn (6) HTN * lisinopril 2.5 mg PO daily * Spironolactone 25 mg PO BID (7) Electrolyte imbalance * continue to monitor and replete (8) Elevated LFTs * continue to monitor (9) Cocaine abuse * patient counseled on cessation * hold beta blockers (except Coreg- can continue Coreg 12.5mg PO BID as per Dr. Ocampo) * UDS positive Chronic back pain * percocet 5/325 q4prn * dilaudid 0.5mg IVP q6prn if patient gets IV access Asthma/ COPD * Albuterol neb prn Hx psychiatric disorder * Prozac 40mg PO daily * Xanax 1mg PO Q6 MRSA nares * starting bactroban ointment * contact precautions Prophylaxis * Discussed tobacco cessation. Patient reports quitting 9 months ago; however, admits to smoking 1-2 cigarettes weekly. * Nicoderm patch * protonix 40mg PO daily * Regular Diet * SCDs * Holding all chemical anticoagulation due to evolving brain intraparenchymal bleed * PT
[2017-12-16 08:15] LABS: BASO # 0.1 K/uL (0.0-0.2); BASO % 0.9 % (0.0-2.0); EOS # 0.3 K/uL (0.0-0.7); EOS % 3.6 % (0.0-4.0); LYMPH # 1.6 K/uL (1.0-4.3); LYMPH % 17.4 % (20.0-40.0); MEAN CORPUSCULAR HEMOGLOBIN 27.3 pg (27.0-31.0); MEAN CORPUSCULAR HGB CONC 32.9 g/dL (33.0-37.0); MONO # 1.2 K/uL (0.0-0.8); MONO % 13.5 % (0.0-10.0); NEUT # 5.9 K/uL (1.8-7.0); NEUT % 64.6 % (50.0-75.0); NRBC % 0.1 % (0.0-2.0); RBC 5.14 Mil/uL (4.40-5.90); WHITE BLOOD COUNT 9.2 K/uL (4.8-10.8)
[2017-12-16 08:31] VITALS: BP 128/79; PULSE 56; TEMP 98.1
[2017-12-16 08:31] LABS: ALB/GLOB RATIO 0.8 (1.0-2.1); ALBUMIN 3.6 g/dL (3.5-5.0); ALT/SGPT 27 U/L (21-72); AST/SGOT 35 U/L (17-59); BLOOD UREA NITROGEN 25 mg/dL (9-20); CALCIUM 8.1 mg/dl (8.6-10.4); GFR AFRICAN-AMERICAN > 60; GFR NON-AFRICAN AMERICAN > 60
[2017-12-16] MEDS ORDERED: HYDROmorphone 0.5 mg/0.5 ml ISec IM PRN (09:10)
[2017-12-16] MEDS: Pantoprazole 40 mg EC Tab PO SCH (09:43)
[2017-12-16] MEDS: Mupirocin 2% Ointment (NASAL) NAS SCH (09:44)
--- NOTE | 2017-12-16 10:10 | CP.PCM.DIS ---
Provider - Provider Date of Admission: 12/11/17 19:24 Attending physician: Roque Ocampo Jr, MD Primary care physician: Dr. Ocampo Consults: Neurology: Dr. Pratt Cardiology: Dr. Morgan Neurosurgery: Dr. Tavera Time Spent in preparation of Discharge (in minutes): 45 Hospital Course - Lab Results Lab Results: Micro Results 12/12/17 13:00 Nose MRSA Culture - Final MRSA DETECTED 12/11/17 21:04 Nose MRSA Culture (Admit) - Final Most Recent Lab Values WBC 9.2 K/uL (4.8-10.8) 12/16/17 08:04 RBC 5.14 Mil/uL (4.40-5.90) 12/16/17 08:04 Hgb 14.0 g/dL (12.0-18.0) 12/16/17 08:04 Hct 42.7 % (35.0-51.0) 12/16/17 08:04 MCV 83.0 fL (80.0-94.0) 12/16/17 08:04 MCH 27.3 pg (27.0-31.0) 12/16/17 08:04 MCHC 32.9 g/dL (33.0-37.0) L 12/16/17 08:04 RDW 17.0 % (11.5-14.5) H 12/16/17 08:04 Plt Count 350 K/uL (130-400) 12/16/17 08:04 MPV 8.0 fL (7.2-11.7) 12/16/17 08:04 Neut % (Auto) 64.6 % (50.0-75.0) 12/16/17 08:04 Lymph % (Auto) 17.4 % (20.0-40.0) L 12/16/17 08:04 [place] % (Auto) 13.5 % (0.0-10.0) H 12/16/17 08:04 Eos % (Auto) 3.6 % (0.0-4.0) 12/16/17 08:04 Baso % (Auto) 0.9 % (0.0-2.0) 12/16/17 08:04 Neut # 5.9 K/uL (1.8-7.0) 12/16/17 08:04 Lymph # 1.6 K/uL (1.0-4.3) 12/16/17 08:04 [place] # 1.2 K/uL (0.0-0.8) H 12/16/17 08:04 Eos # 0.3 K/uL (0.0-0.7) 12/16/17 08:04 Baso # 0.1 K/uL (0.0-0.2) 12/16/17 08:04 Neutrophils % (Manual) 84 % (50-75) H 12/11/17 17:08 Lymphocytes % (Manual) 8 % (20-40) L 12/11/17 17:08 Monocytes % (Manual) 7 % (0-10) 12/11/17 17:08 Eosinophils % (Manual) 1 % (0-4) 12/11/17 17:08 Platelet Estimate Normal (NORMAL) 12/11/17 17:08 Anisocytosis (manual) Slight 12/11/17 17:08 PT 13.9 SECONDS (9.7-12.2) H 12/11/17 17:08 INR 1.2 12/11/17 17:08 APTT 35 SECONDS (21-34) H 12/11/17 17:08 Sodium 131 mmol/L (132-148) L 12/16/17 08:04 Potassium 4.2 mmol/L (3.6-5.2) 12/16/17 08:04 Chloride 94 mmol/L (98-107) L 12/16/17 08:04 Carbon Dioxide 29 mmol/L (22-30) 12/16/17 08:04 Anion Gap 12 (10-20) 12/16/17 08:04 BUN 25 mg/dL (9-20) H 12/16/17 08:04 Creatinine 0.9 mg/dL (0.8-1.5) 12/16/17 08:04 Est GFR ( Amer) > 60 12/16/17 08:04 Est GFR (Non-Af Amer) > 60 12/16/17 08:04 Random Glucose 85 mg/dL (75-110) 12/16/17 08:04 Calcium 8.1 mg/dl (8.6-10.4) L 12/16/17 08:04 Phosphorus 4.2 mg/dL (2.5-4.5) 12/13/17 11:32 Magnesium 1.8 mg/dL (1.6-2.3) 12/13/17 11:32 Total Bilirubin 0.5 mg/dL (0.2-1.3) 12/16/17 08:04 AST 35 U/L (17-59) 12/16/17 08:04 ALT 27 U/L (21-72) 12/16/17 08:04 Alkaline Phosphatase 82 U/L (38-126) 12/16/17 08:04 Total Creatine Kinase 165 U/L (55-170) 12/11/17 17:08 CK-MB (Mass) 3.25 ng/mL (0.0-3.38) 12/11/17 17:08 Troponin I 0.0810 ng/mL (0.00-0.120) 12/11/17 17:08 NT-Pro-B Natriuret Pep 5990 pg/mL (0-450) H 12/11/17 17:08 Total Protein 7.9 g/dL (6.3-8.3) 12/16/17 08:04 Albumin 3.6 g/dL (3.5-5.0) 12/16/17 08:04 Globulin 4.3 gm/dL (2.2-3.9) H 12/16/17 08:04 Albumin/Globulin Ratio 0.8 (1.0-2.1) L 12/16/17 08:04 Triglycerides 145 mg/dL (0-149) D 12/11/17 17:08 Cholesterol 126 mg/dL (0-199) 12/11/17 17:08 LDL Cholesterol Direct 71 mg/dL (0-129) 12/11/17 17:08 HDL Cholesterol 34 mg/dL (30-70) 12/11/17 17:08 Urine Color Yellow (YELLOW) 12/11/17 17:47 Urine Clarity Clear (Clear) 12/11/17 17:47 Urine pH 6.0 (5.0-8.0) 12/11/17 17:47 Ur Specific Ney 1.012 (1.003-1.030) 12/11/17 17:47 Urine Protein Negative mg/dL (NEGATIVE) 12/11/17 17:47 Urine Glucose (UA) Normal mg/dL (Normal) 12/11/17 17:47 Urine Ketones Negative mg/dL (NEGATIVE) 12/11/17 17:47 Urine Blood Negative (NEGATIVE) 12/11/17 17:47 Urine Nitrate Negative (NEGATIVE) 12/11/17 17:47 Urine Bilirubin Negative (NEGATIVE) 12/11/17 17:47 Urine Urobilinogen Normal mg/dL (0.2-1.0) 12/11/17 17:47 Ur Leukocyte Esterase Neg Nancie/uL (Negative) 12/11/17 17:47 Urine WBC (Auto) < 1 /hpf (0-5) 12/11/17 17:47 Urine RBC (Auto) 1 /hpf (0-3) 12/11/17 17:47 Urine Opiates Screen Negative (NEGATIVE) 12/11/17 17:47 Urine Methadone Screen Negative (NEGATIVE) 12/11/17 17:47 Ur Barbiturates Screen Negative (NEGATIVE) 12/11/17 17:47 Ur Phencyclidine Scrn Negative (NEGATIVE) 12/11/17 17:47 Ur Amphetamines Screen Negative (NEGATIVE) 12/11/17 17:47 U Benzodiazepines Scrn Negative (NEGATIVE) 12/11/17 17:47 U Oth Cocaine Metabols Positive (NEGATIVE) H 12/11/17 17:47 U Cannabinoids Screen Negative (NEGATIVE) 12/11/17 17:47 Blood Type O POSITIVE 12/11/17 19:31 Antibody Screen Negative 12/11/17 19:31 - Hospital Course Hospital Course: HPI: Patient is a 47 year old male with past medical history of anxiety/ depression, asthma, afib, chronic back pain, CAD, CHF, COPD, HTN, HLD, chronic LE edema, who presents to the ED with complaints of headache,dizziness for 2 days which worsened yesterday. He states he has frequent headaches, and felt pressure behind left eye associated with blurred vision yesterday. He took percocet 5/325mg with transient relief. Patient reports to have developed midsternal chest pressure today. Patient admits to taking Percocet with relief of CP, but not the headache. Patient admits to being compliant with his medications, takes aspirin daily not on other anticoagulants; denies any SOB, abdominal pain. Denies visual loss(asked patient multiple times). PMD: Dr. Ocampo PMHx: anxiety/depression, asthma, afib, chronic back pain, CAD, CHF, COPD, HTN, HLD, chronic LE edema, arthritis SurgHx: Appendectomy, 2009; 4 cardiac stents () FamHx: Mother- DM, Heart failure, arthritis SocHx: smokes 1-2 cigarettes weekly (quit 9 months ago; former heavy smoker since 9 years old); denies alcohol; + cocaine use Allergies: Apixaban, Plavix, Lovenox, Morphine Medications: See EMR for medication list Hospital Course: Patient was admitted for CVA on 12/11/17. In the ED, labs were drawn, EKG, Chest xray, head CT and MRI were ordered. Finance Effectiveness Manager, Dr. Razo, neurosurgery, Dr. Johansen, and neurology, Dr. Pratt were consulted. Per neurosurgery, no neurosurgical intervention needed at the time. As per neurology , patient was not a candidate for TPA as it was hemorrhagic and 2 days past. Patient was evaluated by product communications manager and admitted to the ICU for continued monitoring. Head CT showed subacute right FLOOR PLAN ADJUSTER territory infarct with questionable scattered areas of reperfusion hemorrhage; xavier chronic appearing infarct the left occipitoparietal watershed zone; suspect minimal chronic periventricular white matter ischemic changes. Brain MRI showed Right FLOOR PLAN ADJUSTER infarction with intraparanchymal hemorrhage 3.4 x 6.2cm, small right occipital SAH. Patient was then started on Keppra. Patient was stable and transferred to telemetry floors. Carotid dopplers were ordered and showed no significant stenosis of the right and left extracranial carotid arteries. Echocardiogram was ordered and showed severely dilated LV with global hypokinesis; LV systolic dysfunction; EF 25%; moderately diastolic dysfunction; grade II pseudonormal filling; elevated LA pressure; RV moderately dilated; systolic function moderately reduced; no valvular abnormality; no pericardial effusion. Cardiology, Dr. Morgan, was consulted and suggested patient start Eliquis in 3 weeks after having a repeat head CT as outpatient. Patient's medical history consisting of afib, CHF, CAD, hypertension, chronic back pain, asthma/COPD, depression and anxiety were monitored and managed throughout hospital stay. Patient was found to be MRSA positive in the nares, and was given bactroban ointment. Patient was seen and examined at bedside throughout hospital course. Patient is stable for discharge to home. Patient must continue taking new medication, Keppra. Patient must follow up as outpatient with PMD and neurologist within one week of discharge. This is a brief summary of the hospital course. Please see EMR for more details. Discharge Exam - Head Exam Head Exam: ATRAUMATIC, NORMAL INSPECTION - Eye Exam Eye Exam: EOMI - ENT Exam ENT Exam: Mucous Membranes Moist - Respiratory Exam Respiratory Exam: NORMAL BREATHING PATTERN, UNREMARKABLE. absent: Rhonchi, Wheezes, Respiratory Distress - Cardiovascular Exam Cardiovascular Exam: +S1, +S2. absent: Bradycardia, Tachycardia - GI/Abdominal Exam GI & Abdominal Exam: Normal Bowel Sounds, Soft, Unremarkable. absent: Distended , Firm, Tenderness - Extremities Exam Extremities exam: normal inspection - Psychiatric Exam Psychiatric exam: Normal Affect, Normal Mood - Skin Skin Exam: Dry, Intact, Warm Discharge Plan - Discharge Medications Prescriptions: levETIRAcetam [Keppra] 500 mg PO BID 30 Days #60 tab - Follow Up Plan Condition: FAIR Disposition: HOME/ ROUTINE Instructions: Levetiracetam (By mouth), Chest Pain (DC), Hemorrhagic Stroke (DC ), Hemorrhagic Stroke (GEN), Stroke (DC), Stroke (GEN) Additional Instructions: Patient is stable for discharge to home. Patient must continue all home medications and should start new medication as prescribe, listed below. Keppra 500mg PO BID-take 1 tablet twice a day by mouth. Patient must follow up with PMD, Dr. Ocampo, within one week of discharge. Patient must follow up with neurologist, Dr. Pratt, within one week of discharge. Patient needs to schedule a head CT within 3 weeks and needs to start Eliquis after head CT completed. If symptoms worsen or reoccur, patient should return to the ED. DO NOT TAKE ANY BLOOD THINNERS UNTIL BEING SEEN AND CLEARED BY YOUR PRIMARY DOCTOR AND NEUROLOGIST DR PRATT . YOUR PRESCRIPTION FOR KEPPRA 500 MG PO DAILY WAS SENT TO [facility] BY DR CANDELARIO . Referrals: Amilcar Pratt MD [Staff Provider] - Roque Ocampo Jr., MD [Medical Doctor] -
--- NOTE | 2017-12-16 17:32 | CP.PCM.PN ---
Subjective - Date & Time of Evaluation Date of Evaluation: 12/16/17 Time of Evaluation: 15:00 - Subjective Subjective: Code star was called on the patient while leaving the hospital. The patient was discharged from the hospital earlier and was awaiting transport home. Patient was requesting voucher for other transport arrangements.. Patient's fall was witnessed by the animal park code enforcement officer and was likely due to the patient putting the shoes on the wrong feet. The patient was seen and advised that he should go to the emergency department for further examination. The patient refused multiple times and it was witness by ERNESTO Martinez as well as the museum security chief. Objective - Vital Signs/Intake and Output Vital Signs (last 24 hours): Temp Pulse Resp BP Pulse Ox 98.1 F 56 L 20 128/79 96 12/16/17 07:00 12/16/17 07:00 12/16/17 07:00 12/16/17 09:43 12/16/17 07:00 Intake and Output: 12/16/17 12/16/17 06:59 18:59 Intake Total 600 300 Balance 600 300 - Labs Labs: 12/16/17 08:04 12/16/17 08:04 PT 13.9 SECONDS (9.7-12.2) H 12/11/17 17:08 INR 1.2 12/11/17 17:08 APTT 35 SECONDS (21-34) H 12/11/17 17:08
== END 2017-12-16 14:30 | disposition home or self-care (01) | DRG 65 ==
LOC: C.ER 16:20 → C.9I 19:24 → C.3T 12-12 13:07 → C.5S 12-14 18:23
PROVIDERS: ADMIT Internal Medicine; ATTEND Internal Medicine
DX: I60.8 Other nontraumatic subarachnoid hemorrhage (principal); I50.20 Unspecified systolic (congestive) heart failure; I11.0 Hypertensive heart disease with heart failure; I48.91 Unspecified atrial fibrillation; F31.9 Bipolar disorder, unspecified; I25.10 Atherosclerotic heart disease of native coronary artery without angina pectoris; J44.9 Chronic obstructive pulmonary disease, unspecified; E78.00 Pure hypercholesterolemia, unspecified; G89.29 Other chronic pain; G47.30 Sleep apnea, unspecified; Z95.5 Presence of coronary angioplasty implant and graft; F14.10 Cocaine abuse, uncomplicated; Z91.19 Patient's noncompliance with other medical treatment and regimen; F17.210 Nicotine dependence, cigarettes, uncomplicated; M54.9 Dorsalgia, unspecified; F41.8 Other specified anxiety disorders

== ENCOUNTER 2018-01-04 22:54 | Inpatient (IN) | payer MEDICARE, MEDICAID ==
[2018-01-04 22:54] VITALS: BMI 38.7
--- NOTE | 2018-01-05 00:51 | C.PDOC ---
History Of Present Illness 47 year old male presents to the ER a complaint of increased breathing, SOB, and diminished vision for the past 2-3 days. Patient has a Hx of cerebral bleed found on 12/12/17, chronic anxiety, and drug abuse. Denies chest pain, nausea, or vomiting. Chief Complaint (Nursing): Cough, Cold, Congestion History Per: Patient History/Exam Limitations: no limitations Onset/Duration Of Symptoms: Days Current Symptoms Are (Timing): Still Present Current Respiratory Medications: None Associated Symptoms: denies: Fever, Chills, Chest Pain Past Medical History Reviewed: Historical Data, Nursing Documentation, Vital Signs Vital Signs: Last Vital Signs Temp 98.2 F 01/04/18 23:02 Pulse 122 H 01/04/18 23:02 Resp 24 01/04/18 23:02 BP 135/87 01/04/18 23:02 Pulse Ox 98 01/05/18 03:37 - Medical History PMH: Anxiety, Arthritis, Asthma, Atrial Fibrillation, Back Problems, Bipolar Disorder, CAD, Cardia Arrhythmia, CHF, COPD, Depression, HTN, Hypercholesterolemia, Peripheral Edema, Pneumonia, Sleep Apnea, Chronic Pain ( Lower Back Pain) Surgical History: Appendectomy (2008), Coronary Stent (2008 - 2012 4 stents) - [facility] Procedures CORONAR ARTERIOGR-2 CATH (07/06/13) DRAINAGE OF SPLEEN, PERCUTANEOUS APPROACH (03/05/17) INJECT/INFUSE NEC (02/22/14) LEFT HEART CARDIAC CATH (07/06/13) LT HEART ANGIOCARDIOGRAM (07/06/13) NEBULIZER THERAPY (03/28/14) NON-INVASIVE MECHANICAL VENTILATION (03/26/15) TRANSFUSE NONAUT FROZEN PLASMA IN PERIPH VEIN, PERC (02/21/17) Family History: States: CAD, Diabetes - Social History Hx Tobacco Use: Yes Hx Alcohol Use: No Hx Substance Use: Yes (denies) - Immunization History Hx Tetanus Toxoid Vaccination: Yes Hx Influenza Vaccination: Yes Hx Pneumococcal Vaccination: Yes (08/2014) Review Of Systems Constitutional: Negative for: Fever, Chills Cardiovascular: Negative for: Chest Pain, Palpitations Respiratory: Positive for: Shortness of Breath Gastrointestinal: Negative for: Nausea, Vomiting, Abdominal Pain Genitourinary: Positive for: Other (Diminished urination) Physical Exam - Physical Exam Appears: Non-toxic, No Acute Distress, Other (Alert, Conscious) Skin: Normal Color, Warm, Dry Head: Atraumatic, Normacephalic Eye(s): bilateral: Normal Inspection Oral Mucosa: Moist Neck: Normal, Supple Chest: Symmetrical, No Tenderness Cardiovascular: Rhythm Regular Respiratory: Normal Breath Sounds, No Rales, No Rhonchi, No Wheezing Gastrointestinal/Abdominal: Soft, No Tenderness Neurological/Psych: Oriented x3, Normal Speech ED Course And Treatment - Laboratory Results Result Diagrams: 01/05/18 01:41 01/05/18 02:57 ECG: Interpreted By Me, Viewed By Me ECG Rhythm: Atrial Fibrillation, R BBB ECG Interpretation: Abnormal Interpretation Of ECG: atrial fibrillation, RBBB, st-t abnormality, abnomal tracings. no significant change from tracings of 12/11/2017 Rate From EC O2 Sat by Pulse Oximetry: 98 (Room air) Pulse Ox Interpretation: Normal Progress Note: CT chest, CT head, EKG, CXR, and blood work ordered. Disposition Discussed With Dr.: Roque Ocampo Jr. Doctor Will See Patient In The: Hospital Counseled Patient/Family Regarding: Diagnosis - Disposition Disposition: HOSPITALIZED Disposition Time: 03:37 Condition: STABLE Forms: [facility] (Latvian) - POA Present On Arrival: None - Clinical Impression Clinical Impression: Upper respiratory infection, CHF (congestive heart failure), Old cerebrovascular accident (CVA) without late effect, Elevated brain natriuretic peptide (BNP) level, Atrial fibrillation - Scribe Statement The provider has reviewed the documentation as recorded by the Scribe Matt Mayorga All medical record entries made by the Scribe were at my direction and personally dictated by me. I have reviewed the chart and agree that the record accurately reflects my personal performance of the history, physical exam, medical decision making, and the department course for this patient. I have also personally directed, reviewed, and agree with the discharge instructions and disposition.
[2018-01-05 01:46] LABS: BASO # 0.1 K/uL (0.0-0.2); EOS # 0.3 K/uL (0.0-0.7); EOS % 2.8 % (0.0-4.0); HEMOGLOBIN 14.1 g/dL (12.0-18.0); LYMPH % 17.3 % (20.0-40.0); MEAN CELL VOLUME 84.1 fL (80.0-94.0); MEAN CORPUSCULAR HEMOGLOBIN 27.4 pg (27.0-31.0); MEAN CORPUSCULAR HGB CONC 32.6 g/dL (33.0-37.0); MEAN PLATELET VOLUME 8.8 fL (7.2-11.7); MONO # 1.1 K/uL (0.0-0.8); MONO % 9.2 % (0.0-10.0); NEUT % 69.7 % (50.0-75.0); RBC 5.13 Mil/uL (4.40-5.90); RED CELL DISTRIBUTION WIDTH 17.5 % (11.5-14.5); WHITE BLOOD COUNT 11.5 K/uL (4.8-10.8)
--- NOTE | 2018-01-05 02:29 | CT ---
EXAM: CT Head Without Intravenous Contrast EXAM DATE/TIME: 01/05/2018 12:42 AM CLINICAL HISTORY: 47 years old, male; Pain; Headache and other: Fall; Patient HX: 12-12-17; Additional info: CVA TECHNIQUE: Axial computed tomography images of the head/brain without intravenous contrast. All CT scans at this facility use one or more dose reduction techniques, viz.: automated exposure control; ma/kV adjustment per patient size (including targeted exams where dose is matched to indication; i.e. head); or iterative reconstruction technique. Coronal and sagittal reformatted images were created and reviewed. COMPARISON: Prior head CT of 2017-12-12 FINDINGS: BRAIN: Large area of low density in the right occipital lobe, most compatible with encephalomalacia secondary to a chronic infarct. Additional small area of encephalomalacia seen in the left occipital lobe. No significant acute abnormality identified. No acute hemorrhage seen within the brain. No acute extra-axial fluid collections visualized. No evidence of significant mass effect within the brain. VENTRICLES: No evidence of significant hydrocephalus. BONES/JOINTS: No acute fractures or other acute bony abnormality noted. SOFT TISSUES: Soft tissue swelling in the left posterior scalp. SINUSES: Visualized paranasal sinuses appear clear. MASTOID AIR CELLS: Mastoid air cells appear clear. IMPRESSION: - No evidence of acute intracranial injury or fractures. - Large area of encephalomalacia in the right occipital lobe, most compatible with a chronic infarct. - See above for remaining findings.
--- NOTE | 2018-01-05 02:50 | CT ---
EXAM: CT Chest Without Intravenous Contrast EXAM DATE/TIME: 01/05/2018 12:44 AM CLINICAL HISTORY: 47 years old, male; Pain; Chest pain; Patient HX: 10-09-17; Additional info: Sob/ ough TECHNIQUE: Axial computed tomography images of the chest without intravenous contrast. All CT scans at this facility use one or more dose reduction techniques, viz.: automated exposure control; ma/kV adjustment per patient size (including targeted exams where dose is matched to indication; i.e. head); or iterative reconstruction technique. Coronal and sagittal reformatted images were created and reviewed. COMPARISON: None is available currently. FINDINGS: LIMITATIONS: Mild streak/motion artifact. LUNGS: Small focal opacity in the right lung base, image 104/series 601, measuring 2 cm. This could represent a very small infiltrate/pneumonia versus atelectasis. It does not have a nodular configuration. Multiple scattered, tiny noncalcified right pulmonary nodules. The largest of these, in the right upper lobe, measures 4 mm. In low-risk patients (minimal or absent history of smoking or other known risk factors), no follow-up is necessary. For high-risk patients (history of smoking or other known risk factors), an optional chest CT at 12 months could be performed. PLEURAL SPACE: No pneumothorax or significant pleural effusions seen. HEART: Heart appears moderately enlarged. Coronary artery calcification. No evidence of significant pericardial effusion. BONES/JOINTS: Healing fracture of the left fifth rib anteriorly. SOFT TISSUES: No acute abnormality of the visualized soft tissues is seen. VASCULATURE: Exam is nondiagnostic for aortic dissection and pulmonary emboli, secondary to unenhanced technique. LYMPH NODES: Mild mediastinal and retroperitoneal lymphadenopathy. Most of the lymph nodes seen are small in size, however, the number present is abnormal. LIVER: Liver is mildly cirrhotic in appearance GALLBLADDER AND BILE DUCTS: Infiltration of the fat adjacent to the gallbladder, suspicious for pericholecystic inflammation. The gallbladder appears contracted. No definite pericholecystic fluid, radiopaque gallstones, or significant biliary ductal dilatation. INTRAPERITONEAL SPACE: Small collections of air seen in the left abdomen abutting the spleen, which appear extraluminal. No evidence of diffuse free intraperitoneal air. IMPRESSION: - Small collections of extraluminal air abutting the spleen, of uncertain etiology. Cannot rule out a bowel perforation, in the absence of recent abdominal surgery or other intra-abdominal procedure. No evidence of diffuse free intraperitoneal air. CT of the abdomen and pelvis with the helpful for further evaluation. - Findings suspicious for pericholecystic inflammation. CT or right upper quadrant ultrasound would be helpful for further evaluation. - Atelectasis versus a very small infiltrate in the right lung base. - Otherwise, no evidence of significant acute process on this unenhanced exam. - Cardiomegaly. - Mild mediastinal and retroperitoneal lymphadenopathy, of uncertain etiology. - Incidental subcentimeter pulmonary nodules. See recommendations above. - See above for remaining findings.
[2018-01-05 03:16] LABS: INR 1.3; PROTHROMBIN TIME 15.3 SECONDS (9.7-12.2)
[2018-01-05] MEDS ORDERED: cefTRIAXone IV 1 gm in Dextros 50 ML IVPB ONE ×2 (03:21→04:06)
[2018-01-05] MEDS ORDERED: Azithromycin 500mg/250ML NS 500 MG/250 ML BAG IV STA (03:21)
[2018-01-05 03:28] LABS: B-TYPE NATRIURETIC PEPTIDE 7790 pg/mL (0-450)
[2018-01-05 03:31] LABS: ALB/GLOB RATIO 0.9 (1.0-2.1); ALBUMIN 3.5 g/dL (3.5-5.0); ALT/SGPT 46 U/L (21-72); AST/SGOT 38 U/L (17-59); BLOOD UREA NITROGEN 16 mg/dL (9-20); CALCIUM 8.2 mg/dl (8.6-10.4); GFR AFRICAN-AMERICAN > 60; GFR NON-AFRICAN AMERICAN > 60
--- NOTE | 2018-01-05 04:14 | CP.PCM.HP ---
History of Present Illness - History of Present Illness History of Present Illness: CC: Shortness of breath and visual disturbances HPI: As per ED documentation, as patient refused to talk during encounter; " I am not a morning person and I already told you what was wrong with me" Patient is a 47 year old male with past medical history of anxiety/ depression, asthma, afib, chronic back pain, CAD, CHF, COPD, HTN, HLD, chronic LE edema and substance abuse, who presents to the ED with complaints of shortness of breath and visual disturbances that started 2-3 days ago. Upon further questioning regarding history of present illness, patient states " I already told you what is wrong with me and I am not a morning person... I just want to sleep." As per ED staff, patient was very agitated and uncooperative upon arrival to the ED, xanax was given. As per chart review: PMD: Dr. Ocampo PMHx: anxiety/depression, asthma, afib, chronic back pain, CAD, CHF, COPD, HTN, HLD, chronic LE edema and substance abuse, SurgHx: Appendectomy, 2008; 4 cardiac stents () FamHx: Mother- DM, Heart failure, arthritis Medications: See EMR for medication list Allergies: Apixaban, Plavix, Lovenox, Morphine and warfarin SocHx: smokes 1-2 cigarettes weekly (quit 9 months ago; former heavy smoker since 9 years old); denies alcohol; + cocaine use Present on Admission - Present on Admission Any Indicators Present on Admission: No Review of Systems - Review of Systems Review of Systems: Unable to evaluate proper ROS as patient was uncooperative - EENT Eyes: Change in Vision - Cardiovascular Cardiovascular: Chest Pain, Dyspnea - Respiratory Respiratory: Dyspnea Past Patient History - Infectious Disease Hx of Infectious Diseases: None - Tetanus Immunizations Tetanus Immunization: Up to Date - Past Medical History & Family History Past Medical History?: Yes - Past Social History Smoking Status: Current Some Days Smoker - CARDIAC Hx Atrial Fibrillation: Yes Hx Cardia Arrhythmia: Yes Hx Congestive Heart Failure: Yes Hx Hypercholesterolemia: Yes Hx Hypertension: Yes Hx Peripheral Edema: Yes - PULMONARY Hx Asthma: Yes Hx Chronic Obstructive Pulmonary Disease (COPD): Yes Hx Pneumonia: Yes Hx Sleep Apnea: Yes - HEENT Hx HEENT Problems: No - ENDOCRINE/METABOLIC Hx Endocrine Disorders: No - HEMATOLOGICAL/ONCOLOGICAL Hx Blood Disorders: Yes Hx Blood Transfusions: Yes Other/Comment: MRSA Hx - INTEGUMENTARY Hx Dermatological Problems: Yes Hx Cellulitis: Yes - MUSCULOSKELETAL/RHEUMATOLOGICAL Hx Arthritis: Yes - GASTROINTESTINAL Hx Gastrointestinal Disorders: Yes Other/Comment: Splenic Hematoma - GENITOURINARY/GYNECOLOGICAL Hx Genitourinary Disorders: No - PSYCHIATRIC Hx Anxiety: Yes Hx Bipolar Disorder: Yes Hx Depression: Yes Hx Substance Use: Yes (denies) - SURGICAL HISTORY Hx Appendectomy: Yes (2008) Hx Coronary Stent: Yes (2008 - 2012 4 stents) - ANESTHESIA Hx Anesthesia: Yes Hx Anesthesia Reactions: No Hx Malignant Hyperthermia: No Meds Allergies/Adverse Reactions: Allergies Allergy/AdvReac Type Severity Reaction Status Date / Time apixaban [From Eliquis] Allergy RASH Verified 01/04/18 23:08 clopidogrel bisulfate Allergy RASH Verified 01/04/18 23:08 [From Plavix] enoxaparin sodium Allergy RASH Verified 01/04/18 23:08 [From Lovenox] morphine Allergy RASH Verified 01/04/18 23:08 warfarin Allergy RASH Verified 01/04/18 23:08 Physical Exam - Constitutional Appears: No Acute Distress - Head Exam Head Exam: ATRAUMATIC - Eye Exam Eye Exam: EOMI - Respiratory Exam Respiratory Exam: Clear to Auscultation Bilateral, NORMAL BREATHING PATTERN Additional comments: Limited exam as patient was uncooperative - Cardiovascular Exam Cardiovascular Exam: Irregular Rhythm, +S1, +S2 - GI/Abdominal Exam GI & Abdominal Exam: Normal Bowel Sounds, Soft - Extremities Exam Additional comments: Chronic bilateral pedal edema - Psychiatric Exam Psychiatric exam: Agitated - Skin Skin Exam: Normal Color Results - Vital Signs Recent Vital Signs: Last Vital Signs Temp 98.2 F 01/04/18 23:02 Pulse 122 H 01/04/18 23:02 Resp 24 01/04/18 23:02 BP 135/87 01/04/18 23:02 Pulse Ox 98 01/05/18 03:41 - Labs Result Diagrams: 01/05/18 01:41 01/05/18 02:57 Labs: Laboratory Results - last 24 hr 01/05/18 01/05/18 01/05/18 01:41 02:57 02:57 WBC 11.5 H RBC 5.13 Hgb 14.1 Hct 43.1 MCV 84.1 MCH 27.4 MCHC 32.6 L RDW 17.5 H Plt Count 208 D MPV 8.8 Neut % (Auto) 69.7 Lymph % (Auto) 17.3 L Bureau % (Auto) 9.2 Eos % (Auto) 2.8 Baso % (Auto) 1.0 Neut # (Auto) 8.0 H Lymph # (Auto) 2.0 Bureau # (Auto) 1.1 H Eos # (Auto) 0.3 Baso # (Auto) 0.1 PT 15.3 H INR 1.3 APTT 35 H D-Dimer, Quantitative 275 H Sodium 134 Potassium 4.1 Chloride 100 Carbon Dioxide 24 Anion Gap 14 BUN 16 Creatinine 0.8 Est GFR ( Amer) > 60 Est GFR (Non-Af Amer) > 60 Random Glucose 117 H Calcium 8.2 L Total Bilirubin 0.7 AST 38 ALT 46 Alkaline Phosphatase 53 Troponin I 0.0650 NT-Pro-B Natriuret Pep 7790 H Total Protein 7.3 Albumin 3.5 Globulin 3.8 Albumin/Globulin Ratio 0.9 L Assessment & Plan (1) Acute exacerbation of CHF (congestive heart failure) Assessment and Plan: On admission: BNP: 7790, D-dimer: 275 Troponin negative X1, f/u repeat troponin Chest CT: Heart appears moderately enlarged. Coronary artery calcification. No evidence of significant pericardial effusion. Small focal opacity in the right lung base,This could represent a very small infiltrate/pneumonia versus atelectasis. Multiple scattered, tiny noncalcified right pulmonary nodules. The largest of these, in the right upper lobe, measures 4 mm. ECHO (02/2017): LV systolic function severely reduced. LV mildly dilated. Severe global hypokinesis of LV. Negative for endocarditis. Continue home medications: * Lasix 40mg PO daily * Aldactone 25mg PO daily * Fluid restriction, daily weight As per previous admissions documentation, patient continually refuses ACID placement Status: Acute (2) Leukocytosis Assessment and Plan: On admission: WBC: 11.5 Given Ceftriaxone 1gm once and Azithromycin 500mg IV once Status: Acute (3) Hypertension Assessment and Plan: Stable Continue home medication: * Lasix 40mg PO daily * Aldactone 25mg PO daily Status: Chronic (4) History of coronary artery disease Assessment and Plan: Continue home medications: * Aspirin 81mg PO daily * Crestor 10mg PO daily Status: Acute (5) History of atrial fibrillation Assessment and Plan: Continue home medications: * Digoxin 0.125mg PO daily * Continue to monitor with telemetry * Reconcile more home medications for A. fibrillation as needed As per previous admissions documentation, patient continually refuses anticoagulation Status: Acute (6) History of psychiatric disorder Assessment and Plan: anxiety Continue home medication: Xanax 1mg PO Q6 prn Status: Acute (7) History of COPD Assessment and Plan: Albuterol duonebs q3h prn Status: Acute (8) History of substance abuse Assessment and Plan: Cocaine use: F/u UDS hold use of Beta Yonis Status: Acute (9) Prophylactic measure Assessment and Plan: SCDs contraindicated due to b/l LE edema Heparin 5,000 units SC q8h Protonix 40mg PO daily Heart healthy diet Status: Acute
[2018-01-05] MEDS ORDERED: Oxycodone/Acetaminophen 5/325 mg Tab PO ONE (05:25)
[2018-01-05] MEDS ORDERED: Oxycodone/Acetaminophen 5/325 mg Tab ONE (05:47)
[2018-01-05 08:13] LABS: BARBITURATES, UR NEGATIVE (NEGATIVE); BENZODIAZEPINES, UR NEGATIVE (NEGATIVE); OPIATES, UR NEGATIVE (NEGATIVE); PHENCYCLIDINE, UR NEGATIVE (NEGATIVE)
[2018-01-05] MEDS ORDERED: Digoxin 125 mcg (0.125 mg) Tab PO SCH ×2 (10:00→18:00)
--- NOTE | 2018-01-05 10:16 | CP.PCM.PN ---
Subjective - Date & Time of Evaluation Date of Evaluation: 01/05/18 Time of Evaluation: 10:16 - Subjective Subjective: Medicine Progress Note for Dr. Ocampo's service Patient was seen and examined at bedside in no acute distress. Patient was sleeping comfortably in bed. Patient sedated, therefore, ROS limited. Objective - Vital Signs/Intake and Output Vital Signs (last 24 hours): Temp Pulse Resp BP Pulse Ox 98.4 F 125 H 24 135/90 95 01/05/18 07:59 01/05/18 07:59 01/05/18 07:59 01/05/18 07:59 01/05/18 07:59 - Medications Medications: Current Medications Albuterol/Ipratropium (Duoneb 3 Mg/0.5 Mg (3 Ml) Ud) 3 ml INH RQ3 PRN PRN Reason: Shortness of Breath Alprazolam (Xanax) 1 mg PO Q6 [facility] Last Admin: 01/05/18 06:59 Dose: 1 mg Aspirin (Ecotrin) 81 mg PO DAILY [facility] Digoxin (Lanoxin) 0.125 mg PO DAILY@1800 [facility] Furosemide (Lasix) 40 mg PO DAILY [facility] Heparin Sodium (Porcine) (Heparin) 5,000 units SC Q8 [facility] Last Admin: 01/05/18 06:54 Dose: Not Given Pantoprazole Sodium (Protonix Ec Tab) 40 mg PO DAILY [facility] Rosuvastatin Calcium (Crestor) 10 mg PO HS [facility] Spironolactone (Aldactone) 25 mg PO DAILY [facility] - Labs Labs: 01/05/18 01:41 01/05/18 02:57 PT 15.3 SECONDS (9.7-12.2) H 01/05/18 02:57 INR 1.3 01/05/18 02:57 APTT 35 SECONDS (21-34) H 01/05/18 02:57 - Constitutional Appears: No Acute Distress (sedated/sleeping) - Head Exam Head Exam: ATRAUMATIC, NORMAL INSPECTION - Eye Exam Eye Exam: EOMI - ENT Exam ENT Exam: Mucous Membranes Moist - Respiratory Exam Respiratory Exam: Prolonged Expiratory Phase, NORMAL BREATHING PATTERN. absent : Rales, Rhonchi, Wheezes, Respiratory Distress - Cardiovascular Exam Cardiovascular Exam: Irregular Rhythm, +S1, +S2 - GI/Abdominal Exam GI & Abdominal Exam: Soft, Normal Bowel Sounds. absent: Distended, Firm, Tenderness - Extremities Exam Extremities Exam: Pedal Edema. absent: Tenderness - Skin Skin Exam: Dry, Intact, Warm Assessment and Plan - Assessment and Plan (Free Text) Plan: Assessment & Plan (1) Acute exacerbation of CHF (congestive heart failure) Assessment and Plan: * On admission: BNP: 7790, D-dimer: 275 * Troponin negative X1, f/u repeat troponin * Chest CT: Heart appears moderately enlarged. Coronary artery calcification. No evidence of significant pericardial effusion. Small focal opacity in the right lung base,This could represent a very small infiltrate/pneumonia versus atelectasis. Multiple scattered, tiny noncalcified right pulmonary nodules. The largest of these, in the right upper lobe, measures 4 mm. * ECHO (02/2017): LV systolic function severely reduced. LV mildly dilated. Severe global hypokinesis of LV. Negative for endocarditis. * Continue home medications: * Lasix 40mg PO daily * Aldactone 25mg PO daily * Fluid restriction, daily weight *As per previous admissions documentation, patient continually refuses ACID placement (2) Leukocytosis Assessment and Plan: * On admission:WBC: 11.5 * Given Ceftriaxone 1gm once and Azithromycin 500mg IV once (3) Hypertension Assessment and Plan: * Stable * Continue home medication: * Lasix 40mg PO daily * Aldactone 25mg PO daily * Coreg 12.5mg PO Q12 (4) History of coronary artery disease Assessment and Plan: * Continue home medications: * Crestor 5mg PO HS (5) History of atrial fibrillation Assessment and Plan: * Continue to monitor with telemetry--> patient refused monitor technician * Continue home medications: * Digoxin 0.125mg PO daily * Cardizem 30mg PO QID *NO chemical anticoagulation--> previous admission pt diagnosed with intracranial bleed, splenic infarct. (6) History of psychiatric disorder Assessment and Plan: * Anxiety * Continue home medication: * Xanax 1mg PO Q6 prn (7) History of COPD Assessment and Plan: * Albuterol duonebs q3h prn (8) History of substance abuse Assessment and Plan: * Cocaine use: * UDS : + cocaine * Hold use of Beta Yonis (9) Hx Intracranial bleed, splenic infarct Assessment and Plan: * Head CT (01/05/18): no evidence of acute intracranial injury/fractures; large area of encephalomalacia in right occipital lobe, most compatible with chronic infarct *NO chemical anticoagulation--> previous admission pt diagnosed with intracranial bleed, splenic infarct. Previous admission: * Head CT (12/12/17) : subacute right [employer] territory infarct with questionable scattered areas of reperfusion hemorrhage; xavier chronic appearing infarct the left occipitoparietal watershed zone; suspect minimal chronic periventricular white matter ischemic changes. * Brain MRI (12/11/17) showed Right [employer] infarction with intraparanchymal hemorrhage 3.4 x 6.2cm, small right occipital SAH. * Continue home med: Keppra 500mg PO BID (10) Prophylactic measure Assessment and Plan: * SCDs contraindicated due to b/l LE edema * NO chemical anticoagulation--> previous admission pt diagnosed with intracranial bleed, splenic infarct. * Protonix 40mg PO daily * Regular diet * Restarted home medications
[2018-01-05] MEDS: Pantoprazole 40 mg EC Tab PO SCH (11:45)
--- NOTE | 2018-01-05 12:05 | CARD ---
APPROVED REPORT EKG Measurement Heart [id number] <Conclusion> Atrial fibrillation with rapid ventricular response Pulmonary disease pattern Incomplete right bundle branch block Left anterior fascicular block Inferior infarct, age undetermined ST & T wave abnormality, consider lateral ischemia Abnormal ECG
[2018-01-05] MEDS ORDERED: Oxycodone/Acetaminophen 5/325 mg Tab PO PRN (15:58)
[2018-01-05] MEDS ORDERED: Albuterol HFA 90 mcg/actuation (8 g) IH PRN (15:58)
[2018-01-05] MEDS ORDERED: HYDROmorphone 0.5 mg/0.5 ml ISec IVP PRN ×2 (16:39→16:46)
[2018-01-05 17:40] VITALS: PULSE 121
[2018-01-05] MEDS: Albuterol-Ipratrop 3 mg / 0.5 (3 ml) UD INH PRN (19:30)
[2018-01-05] MEDS ORDERED: traZODone 25 mg Tab PO SCH (22:00)
[2018-01-05] MEDS: Oxycodone/Acetaminophen 5/325 mg Tab PO PRN (22:08)
[2018-01-06 00:35] VITALS: PULSE 66; RESP 20
[2018-01-06] MEDS: Oxycodone/Acetaminophen 5/325 mg Tab PO PRN ×2 (04:26→11:38)
[2018-01-06] MEDS: Albuterol-Ipratrop 3 mg / 0.5 (3 ml) UD INH PRN (07:00)
[2018-01-06 07:11] LABS: BASO # 0.1 K/uL (0.0-0.2); EOS # 0.5 K/uL (0.0-0.7); EOS % 5.2 % (0.0-4.0); HEMOGLOBIN 14.2 g/dL (12.0-18.0); LYMPH % 20.6 % (20.0-40.0); MEAN CELL VOLUME 83.9 fL (80.0-94.0); MEAN CORPUSCULAR HEMOGLOBIN 27.5 pg (27.0-31.0); MEAN CORPUSCULAR HGB CONC 32.8 g/dL (33.0-37.0); MEAN PLATELET VOLUME 8.6 fL (7.2-11.7); MONO # 1.3 K/uL (0.0-0.8); MONO % 12.7 % (0.0-10.0); NEUT % 60.5 % (50.0-75.0); NRBC % 0.1 % (0.0-2.0); RBC 5.17 Mil/uL (4.40-5.90); RED CELL DISTRIBUTION WIDTH 17.4 % (11.5-14.5); WHITE BLOOD COUNT 9.8 K/uL (4.8-10.8)
[2018-01-06 07:41] LABS: ALB/GLOB RATIO 0.9 (1.0-2.1); ALBUMIN 3.8 g/dL (3.5-5.0); ALT/SGPT 48 U/L (21-72); AST/SGOT 36 U/L (17-59); BLOOD UREA NITROGEN 20 mg/dL (9-20); CALCIUM 8.9 mg/dl (8.6-10.4); GFR AFRICAN-AMERICAN > 60; GFR NON-AFRICAN AMERICAN > 60
[2018-01-06 08:01] VITALS: TEMP 97.4; O2SAT 98
[2018-01-06] MEDS: Pantoprazole 40 mg EC Tab PO SCH (09:56)
[2018-01-06 09:57] VITALS: BP 102/70
--- NOTE | 2018-01-06 11:13 | CP.PCM.PN ---
Subjective - Date & Time of Evaluation Date of Evaluation: 01/06/18 Time of Evaluation: 11:11 - Subjective Subjective: Medicine progress note for Dr. Ocampo's service Patient was seen and examined. Patient was OOB sitting in chair eating breakfast. Patient is lethargic and falling asleep while talking. Patient complains about his decreased vision. Patient denies chest pain, shortness of breath, nausea, vomiting, fevers, headache. Objective - Vital Signs/Intake and Output Vital Signs (last 24 hours): Temp Pulse Resp BP Pulse Ox 97.4 F L 66 20 102/70 98 01/06/18 08:00 01/05/18 23:00 01/06/18 08:00 01/06/18 09:56 01/06/18 08:00 Intake and Output: 01/06/18 01/06/18 06:59 18:59 Intake Total 480 Balance 480 - Medications Medications: Current Medications Albuterol (Ventolin Hfa 90 Mcg/Actuation (8 G)) 90 puff IH RQ4 PRN PRN Reason: Wheezing Albuterol/Ipratropium (Duoneb 3 Mg/0.5 Mg (3 Ml) Ud) 3 ml INH RQ3 PRN PRN Reason: Shortness of Breath Last Admin: 01/06/18 07:00 Dose: 3 ml Alprazolam (Xanax) 1 mg PO Q6 [facility] Last Admin: 01/06/18 06:33 Dose: 1 mg Carvedilol (Coreg) 12.5 mg PO Q12 [facility] Last Admin: 01/06/18 09:56 Dose: 12.5 mg Cyclobenzaprine HCl (Flexeril) 10 mg PO DAILY [facility] Last Admin: 01/06/18 09:55 Dose: 10 mg Digoxin (Lanoxin) 0.125 mg PO DAILY@1800 [facility] Last Admin: 01/05/18 17:39 Dose: 0.125 mg Diltiazem HCl (Cardizem) 30 mg PO QID [facility] Last Admin: 01/06/18 09:58 Dose: 30 mg Diphenhydramine HCl (Benadryl) 25 mg PO Q6 PRN PRN Reason: Itching / Pruritus Last Admin: 01/06/18 04:27 Dose: 25 mg Furosemide (Lasix) 40 mg PO DAILY [facility] Last Admin: 01/06/18 09:55 Dose: 40 mg Gabapentin (Neurontin) 300 mg PO TID [facility] Last Admin: 01/06/18 09:55 Dose: 300 mg Hydrochlorothiazide (Microzide) 50 mg PO [facility] Last Admin: 01/05/18 21:19 Dose: 50 mg Hydromorphone HCl (Dilaudid) 0.5 mg IVP Q6H PRN PRN Reason: Pain, severe (8-10) Last Admin: 01/06/18 01:16 Dose: 0.5 mg Levetiracetam (Keppra) 500 mg PO BID [facility] Last Admin: 01/06/18 09:55 Dose: 500 mg Montelukast Sodium (Singulair) 10 mg PO [facility] Last Admin: 01/05/18 21:19 Dose: 10 mg Oxycodone/Acetaminophen (Percocet 5/325 Mg Tab) 2 tab PO Q6 PRN PRN Reason: Pain, Mild (1-3) Last Admin: 01/06/18 04:26 Dose: 2 tab Pantoprazole Sodium (Protonix Ec Tab) 40 mg PO DAILY [facility] Last Admin: 01/06/18 09:56 Dose: 40 mg Rosuvastatin Calcium (Crestor) 5 mg PO [facility] Last Admin: 01/05/18 22:10 Dose: 5 mg Spironolactone (Aldactone) 25 mg PO DAILY [facility] Last Admin: 01/06/18 09:54 Dose: 25 mg Trazodone HCl (Desyrel) 25 mg PO [facility] Last Admin: 01/05/18 21:19 Dose: 25 mg - Labs Labs: 01/06/18 06:59 01/06/18 06:59 PT 15.3 SECONDS (9.7-12.2) H 01/05/18 02:57 INR 1.3 01/05/18 02:57 APTT 35 SECONDS (21-34) H 01/05/18 02:57 - Constitutional Appears: No Acute Distress (lethargic) - Head Exam Head Exam: ATRAUMATIC, NORMAL INSPECTION - Eye Exam Eye Exam: EOMI, Normal appearance - ENT Exam ENT Exam: Mucous Membranes Moist - Respiratory Exam Respiratory Exam: Clear to Ausculation Bilateral, NORMAL BREATHING PATTERN. absent: Rales, Wheezes, Respiratory Distress - Cardiovascular Exam Cardiovascular Exam: Irregular Rhythm, +S1, +S2 - GI/Abdominal Exam GI & Abdominal Exam: Soft, Normal Bowel Sounds. absent: Distended, Firm, Tenderness - Extremities Exam Extremities Exam: Pedal Edema. absent: Tenderness - Neurological Exam Neurological Exam: absent: Alert (lethargic) - Psychiatric Exam Psychiatric exam: Normal Affect, Normal Mood - Skin Skin Exam: Dry, Warm Assessment and Plan - Assessment and Plan (Free Text) Plan: Assessment & Plan (1) Acute exacerbation of CHF (congestive heart failure) Assessment and Plan: * On admission: BNP: 7790, D-dimer: 275 * Troponin negative X2 (0.065, 0.063) * Chest CT: Heart appears moderately enlarged. Coronary artery calcification. No evidence of significant pericardial effusion. Small focal opacity in the right lung base,This could represent a very small infiltrate/pneumonia versus atelectasis. Multiple scattered, tiny noncalcified right pulmonary nodules. The largest of these, in the right upper lobe, measures 4 mm. * ECHO (02/2017): LV systolic function severely reduced. LV mildly dilated. Severe global hypokinesis of LV. Negative for endocarditis. * Continue home medications: * Lasix 40mg PO daily * Aldactone 25mg PO daily * Fluid restriction, daily weight *As per previous admissions documentation, patient continually refuses ACID placement (2) Leukocytosis Assessment and Plan: * On admission:WBC: 11.5 * Given Ceftriaxone 1gm once and Azithromycin 500mg IV once (3) Hypertension Assessment and Plan: * Stable * Continue home medication: * Lasix 40mg PO daily * Aldactone 25mg PO daily * Coreg 12.5mg PO Q12 (4) History of coronary artery disease Assessment and Plan: * Continue home medications: * Crestor 5mg PO HS (5) History of atrial fibrillation Assessment and Plan: * Continue to monitor with telemetry--> patient refused child monitor * Continue home medications: * Digoxin 0.125mg PO daily * Cardizem 30mg PO QID *NO chemical anticoagulation--> previous admission pt diagnosed with intracranial bleed, splenic infarct. (6) History of psychiatric disorder Assessment and Plan: * Anxiety * Continue home medication: * Xanax 1mg PO Q6 prn (7) History of COPD Assessment and Plan: * Albuterol duonebs q3h prn (8) History of substance abuse Assessment and Plan: * Cocaine use: * UDS : + cocaine * Hold use of Beta Yonis (9) Hx Intracranial bleed, splenic infarct Assessment and Plan: * Head CT (01/05/18): no evidence of acute intracranial injury/fractures; large area of encephalomalacia in right occipital lobe, most compatible with chronic infarct *NO chemical anticoagulation--> previous admission pt diagnosed with intracranial bleed, splenic infarct. Previous admission: * Head CT (12/12/17) : subacute right TRACTOR EXPERT territory infarct with questionable scattered areas of reperfusion hemorrhage; xavier chronic appearing infarct the left occipitoparietal watershed zone; suspect minimal chronic periventricular white matter ischemic changes. * Brain MRI (12/11/17) showed Right TRACTOR EXPERT infarction with intraparanchymal hemorrhage 3.4 x 6.2cm, small right occipital SAH. * Continue home med: Keppra 500mg PO BID (10) Prophylactic measure Assessment and Plan: * SCDs contraindicated due to b/l LE edema * NO chemical anticoagulation--> previous admission pt diagnosed with intracranial bleed, splenic infarct. * Protonix 40mg PO daily * Regular diet * Restarted home medications Discussed with Dr. Ocampo All management as per Dr. Ocampo
--- NOTE | 2018-01-06 12:23 | CP.PCM.DIS ---
Provider - Provider Date of Admission: 01/05/18 03:42 Attending physician: Roque Ocampo Jr, MD Primary care physician: Dr. Ocampo Time Spent in preparation of Discharge (in minutes): 45 Hospital Course - Lab Results Lab Results: Micro Results 01/05/18 03:42 Blood Blood Culture - Preliminary NO GROWTH AFTER 24 HOURS 01/05/18 03:42 Blood Blood Culture - Preliminary NO GROWTH AFTER 24 HOURS Most Recent Lab Values WBC 9.8 K/uL (4.8-10.8) 01/06/18 06:59 RBC 5.17 Mil/uL (4.40-5.90) 01/06/18 06:59 Hgb 14.2 g/dL (12.0-18.0) 01/06/18 06:59 Hct 43.4 % (35.0-51.0) 01/06/18 06:59 MCV 83.9 fL (80.0-94.0) 01/06/18 06:59 MCH 27.5 pg (27.0-31.0) 01/06/18 06:59 MCHC 32.8 g/dL (33.0-37.0) L 01/06/18 06:59 RDW 17.4 % (11.5-14.5) H 01/06/18 06:59 Plt Count 222 K/uL (130-400) 01/06/18 06:59 MPV 8.6 fL (7.2-11.7) 01/06/18 06:59 Neut % (Auto) 60.5 % (50.0-75.0) 01/06/18 06:59 Lymph % (Auto) 20.6 % (20.0-40.0) 01/06/18 06:59 [place] % (Auto) 12.7 % (0.0-10.0) H 01/06/18 06:59 Eos % (Auto) 5.2 % (0.0-4.0) H 01/06/18 06:59 Baso % (Auto) 1.0 % (0.0-2.0) 01/06/18 06:59 Neut # (Auto) 6.0 K/uL (1.8-7.0) 01/06/18 06:59 Lymph # (Auto) 2.0 K/uL (1.0-4.3) 01/06/18 06:59 [place] # (Auto) 1.3 K/uL (0.0-0.8) H 01/06/18 06:59 Eos # (Auto) 0.5 K/uL (0.0-0.7) 01/06/18 06:59 Baso # (Auto) 0.1 K/uL (0.0-0.2) 01/06/18 06:59 PT 15.3 SECONDS (9.7-12.2) H 01/05/18 02:57 INR 1.3 01/05/18 02:57 APTT 35 SECONDS (21-34) H 01/05/18 02:57 D-Dimer, Quantitative 275 ng/mlDDU (0-243) H 01/05/18 02:57 Sodium 137 mmol/L (132-148) 01/06/18 06:59 Potassium 4.4 mmol/L (3.6-5.2) 01/06/18 06:59 Chloride 100 mmol/L (98-107) 01/06/18 06:59 Carbon Dioxide 27 mmol/L (22-30) 01/06/18 06:59 Anion Gap 15 (10-20) 01/06/18 06:59 BUN 20 mg/dL (9-20) 01/06/18 06:59 Creatinine 1.1 mg/dL (0.8-1.5) 01/06/18 06:59 Est GFR ( Amer) > 60 01/06/18 06:59 Est GFR (Non-Af Amer) > 60 01/06/18 06:59 Random Glucose 83 mg/dL (75-110) 01/06/18 06:59 Calcium 8.9 mg/dl (8.6-10.4) 01/06/18 06:59 Total Bilirubin 0.5 mg/dL (0.2-1.3) 01/06/18 06:59 AST 36 U/L (17-59) 01/06/18 06:59 ALT 48 U/L (21-72) 01/06/18 06:59 Alkaline Phosphatase 66 U/L (38-126) 01/06/18 06:59 Troponin I 0.0670 ng/mL (0.00-0.120) 01/06/18 11:00 NT-Pro-B Natriuret Pep 7790 pg/mL (0-450) H 01/05/18 02:57 Total Protein 7.9 g/dL (6.3-8.3) 01/06/18 06:59 Albumin 3.8 g/dL (3.5-5.0) 01/06/18 06:59 Globulin 4.1 gm/dL (2.2-3.9) H 01/06/18 06:59 Albumin/Globulin Ratio 0.9 (1.0-2.1) L 01/06/18 06:59 Urine Opiates Screen Negative (NEGATIVE) 01/05/18 07:50 Urine Methadone Screen Negative (NEGATIVE) 01/05/18 07:50 Ur Barbiturates Screen Negative (NEGATIVE) 01/05/18 07:50 Ur Phencyclidine Scrn Negative (NEGATIVE) 01/05/18 07:50 Ur Amphetamines Screen Negative (NEGATIVE) 01/05/18 07:50 U Benzodiazepines Scrn Negative (NEGATIVE) 01/05/18 07:50 U Oth Cocaine Metabols Positive (NEGATIVE) H 01/05/18 07:50 U Cannabinoids Screen Negative (NEGATIVE) 01/05/18 07:50 - Hospital Course Hospital Course: CC: Shortness of breath and visual disturbances HPI: As per ED documentation, as patient refused to talk during encounter; " I am not a morning person and I already told you what was wrong with me" Patient is a 47 year old male with past medical history of anxiety/ depression, asthma, afib, chronic back pain, CAD, CHF, COPD, HTN, HLD, chronic LE edema and substance abuse, who presents to the ED with complaints of shortness of breath and visual disturbances that started 2-3 days ago. Upon further questioning regarding history of present illness, patient states " I already told you what is wrong with me and I am not a morning person... I just want to sleep." As per ED staff, patient was very agitated and uncooperative upon arrival to the ED, xanax was given. As per chart review: PMD: Dr. Ocampo PMHx: anxiety/depression, asthma, afib, chronic back pain, CAD, CHF, COPD, HTN, HLD, chronic LE edema and substance abuse, SurgHx: Appendectomy, 2008; 4 cardiac stents (2008-) FamHx: Mother- DM, Heart failure, arthritis Medications: See EMR for medication list Allergies: Apixaban, Plavix, Lovenox, Morphine and warfarin SocHx: smokes 1-2 cigarettes weekly (quit 9 months ago; former heavy smoker since 9 years old); denies alcohol; + cocaine use Hospital course: Patient was admitted on 01/05/18 for CHF exacerbation. In the ED , labs were drawn, images taken, and medications given. Labs showed elevated BNP and Ddimer. Troponins were negative. Chest CT showed heart appears moderately enlarged; coronary artery calcification; no evidence of significant pericardial effusion; small focal opacity in the right lung base, this could represent a very small infiltrate/pneumonia versus atelectasis; multiple scattered, tiny noncalcified right pulmonary nodules; the largest of these, in the right upper lobe, measures [address] (01/05/18) showed no evidence of acute intracranial injury/fractures; large area of encephalomalacia in right occipital lobe, most compatible with chronic infarct. Patient was admitted to telemetry and home medications for HTN, Afib, CVA, COPD, anxiety, and CAD were restarted. Patient refused to be placed on telemetry. Patient was seen and examined at bedside in the morning. Patient has no complaints, was eating breakfast and dosing off. Patient requested to sign out AMA at 12pm today. patient understands the risks if signing out AMA. Patient signed the AMA form. This is a brief summary of the hospital course. Please see EMR for more details. Discharge Exam - Head Exam Head Exam: ATRAUMATIC, NORMAL INSPECTION - Eye Exam Eye Exam: Normal appearance - ENT Exam ENT Exam: Mucous Membranes Moist - Respiratory Exam Respiratory Exam: NORMAL BREATHING PATTERN, UNREMARKABLE. absent: Rales, Wheezes, Respiratory Distress - Cardiovascular Exam Cardiovascular Exam: +S1, +S2 - GI/Abdominal Exam GI & Abdominal Exam: Normal Bowel Sounds. absent: Distended, Unremarkable - Extremities Exam Extremities exam: pedal edema - Neurological Exam Neurological exam: Oriented x3 - Skin Skin Exam: Dry, Intact, Warm Discharge Plan - Follow Up Plan Condition: STABLE Disposition: AGAINST MEDICAL ADVICE
--- NOTE | 2018-01-06 12:59 | PCM.HF ---
Heart Failure Core Measure - Heart Failure Ejection Fraction: Less Than 40 % SHONDA Inhibitor Prescribed: Yes Beta-Yonis Prescribed: None Contraindication/Reason for not providing: copd, asthma Angiotensin II Receptor Yonis Prescribed: No Contraindication/Reason for not providing: on shonda AnticoagulationTherapy for Atrial Fibrillation/Atrialflutter: No Contraindication/Reason for not providing: risk of bleeding Aldosterone Antagonist Prescribed: Yes Hydralazine Nitrate Prescribed: No Contraindication/Reason for not providing: on dig Implantable Cardioverter Defibrillator Therapy: No Contraindication/Reason for not providing: refuses ppm; vest therapy; pt noncompliant Cardiac Resynchronization Therapy Prescribed: No Contraindication/Reason for not providing: refuses ppm; vest therapy; pt noncompliant - Follow up Will be discharged to: Home (pt eloped prior to receiving d/c paperwork and information) Follow Up Date (must be within 7 days from discharge): 01/08/18 Follow Up Time: 09:00
== END 2018-01-06 12:55 | disposition left against medical advice (07) | DRG 153 ==
LOC: C.ER 22:54 → C.9E 01-05 03:42 → C.6T 01-05 12:53
PROVIDERS: ADMIT Internal Medicine; ATTEND Internal Medicine
DX: J06.9 Acute upper respiratory infection, unspecified (principal); I11.0 Hypertensive heart disease with heart failure; I50.9 Heart failure, unspecified; Z68.43 Body mass index [BMI] 50.0-59.9, adult; E78.5 Hyperlipidemia, unspecified; J44.9 Chronic obstructive pulmonary disease, unspecified; Z86.73 Personal history of transient ischemic attack (TIA), and cerebral infarction without residual deficits; F14.90 Cocaine use, unspecified, uncomplicated; F41.9 Anxiety disorder, unspecified; I48.91 Unspecified atrial fibrillation; I25.10 Atherosclerotic heart disease of native coronary artery without angina pectoris; Z95.5 Presence of coronary angioplasty implant and graft

== ENCOUNTER 2018-01-08 15:09 | Inpatient (IN) | payer MEDICARE, MEDICAID ==
[2018-01-08 15:12] VITALS: BMI 35.9
--- NOTE | 2018-01-08 16:32 | RAD ---
HISTORY: chest pain COMPARISON: Chest x-ray performed 12/11/27 TECHNIQUE: Chest, one view. FINDINGS: Examination limited by habitus. LUNGS: Moderate interstitial prominence may reflect infection or edema. Please note that chest x-ray has limited sensitivity for the detection of pulmonary masses. PLEURA: No significant pleural effusion identified. No definite pneumothorax . CARDIOVASCULAR: Marked cardiomegaly. OSSEOUS STRUCTURES: No acute osseous abnormality is detected. VISUALIZED UPPER ABDOMEN: Unremarkable. OTHER FINDINGS: None. IMPRESSION: Marked cardiomegaly. Moderate interstitial prominence may reflect infection or edema.
[2018-01-08 16:56] LABS: BASO # 0.1 K/uL (0.0-0.2); EOS # 0.3 K/uL (0.0-0.7); EOS % 3.9 % (0.0-4.0); HEMOGLOBIN 13.8 g/dL (12.0-18.0); LYMPH # 1.1 K/uL (1.0-4.3); LYMPH % 13.1 % (20.0-40.0); MEAN CELL VOLUME 83.3 fL (80.0-94.0); MEAN CORPUSCULAR HEMOGLOBIN 27.2 pg (27.0-31.0); MEAN CORPUSCULAR HGB CONC 32.6 g/dL (33.0-37.0); MEAN PLATELET VOLUME 8.3 fL (7.2-11.7); MONO # 0.8 K/uL (0.0-0.8); MONO % 9.6 % (0.0-10.0); NEUT # 6.2 K/uL (1.8-7.0); NEUT % 72.4 % (50.0-75.0); RBC 5.08 Mil/uL (4.40-5.90); RED CELL DISTRIBUTION WIDTH 17.8 % (11.5-14.5); WHITE BLOOD COUNT 8.6 K/uL (4.8-10.8)
[2018-01-08 17:14] LABS: ALB/GLOB RATIO 0.9 (1.0-2.1); ALBUMIN 3.9 g/dL (3.5-5.0); ALT/SGPT 45 U/L (21-72); AST/SGOT 42 U/L (17-59); BLOOD UREA NITROGEN 16 mg/dL (9-20); GFR AFRICAN-AMERICAN > 60; GFR NON-AFRICAN AMERICAN > 60
[2018-01-08 17:25] LABS: URINE BILIRUBIN NEGATIVE (NEGATIVE); URINE BLOOD NEGATIVE (NEGATIVE); URINE CLARITY Hazy (Clear); URINE COLOR Yellow (YELLOW); URINE GLUCOSE (UA) NORMAL (Normal); URINE LEUKOCYTE ESTERASE NEG Leu/uL (Negative); URINE NITRATE NEGATIVE (NEGATIVE); URINE PROTEIN 1+ mg/dL (NEGATIVE)
[2018-01-08 17:26] LABS: B-TYPE NATRIURETIC PEPTIDE 3760 pg/mL (0-450)
[2018-01-08 17:32] LABS: BARBITURATES, UR NEGATIVE (NEGATIVE); OPIATES, UR NEGATIVE (NEGATIVE); PHENCYCLIDINE, UR NEGATIVE (NEGATIVE)
[2018-01-08 17:53] LABS: BENZODIAZEPINES, UR POSITIVE (NEGATIVE)
--- NOTE | 2018-01-08 18:38 | C.PDOC ---
Time Seen by Provider: 01/08/18 15:39 Chief Complaint (Nursing): Chest Pain History Per: Patient Onset/Duration Of Symptoms: Days (1), Waxing/Waning Current Symptoms Are (Timing): Still Present Severity: Moderate Quality: "Pain" Associated Symptoms: Dyspnea Modifying Factors: Other Indicated Below Additional History Per: Prior Records Past Medical History Reviewed: Historical Data, Nursing Documentation, Vital Signs Vital Signs: Last Vital Signs Temp 98.7 F 01/08/18 15:16 Pulse 87 01/08/18 15:16 Resp 20 01/08/18 15:16 BP 128/97 H 01/08/18 15:16 Pulse Ox 100 01/08/18 15:16 - Medical History PMH: Anxiety, Arthritis, Asthma, Atrial Fibrillation, Back Problems, Bipolar Disorder, CAD, Cardia Arrhythmia, CHF, COPD, CVA, Depression, HTN, Hypercholesterolemia, Peripheral Edema, Pneumonia, Sleep Apnea, Chronic Pain ( Lower Back Pain) Other PMH: 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 Surgical History: Appendectomy (2008), Coronary Stent (2008 - 2012 4 stents) - [facility] Procedures CORONAR ARTERIOGR-2 CATH (07/06/13) DRAINAGE OF SPLEEN, PERCUTANEOUS APPROACH (03/05/17) INJECT/INFUSE NEC (02/22/14) LEFT HEART CARDIAC CATH (07/06/13) LT HEART ANGIOCARDIOGRAM (07/06/13) NEBULIZER THERAPY (03/28/14) NON-INVASIVE MECHANICAL VENTILATION (03/26/15) TRANSFUSE NONAUT FROZEN PLASMA IN PERIPH VEIN, PERC (02/21/17) Family History: States: CAD, Diabetes - Social History Hx Tobacco Use: Yes Hx Alcohol Use: No Hx Substance Use: Yes (cocaine) - Immunization History Hx Tetanus Toxoid Vaccination: Yes Hx Influenza Vaccination: Yes Hx Pneumococcal Vaccination: Yes (08/2014) Review Of Systems Except As Marked, All Systems Reviewed And Found Negative. Constitutional: Negative for: Fever Cardiovascular: Positive for: Chest Pain Respiratory: Positive for: Shortness of Breath. Negative for: Hemoptysis Gastrointestinal: Negative for: Vomiting Neurological: Negative for: Weakness, Seizures Physical Exam - Physical Exam Appears: Chronically Ill Skin: Warm, Dry Head: Atraumatic Eye(s): bilateral: PERRL, EOMI, left: Other (blind) Neck: Normal ROM, Supple Cardiovascular: Rhythm Irregular Respiratory: No Accessory Muscle Use, Rales (at bases) Gastrointestinal/Abdominal: Soft, No Tenderness Extremity: Normal ROM, Pedal Edema Neurological/Psych: Oriented x3, Normal Motor ED Course And Treatment - Laboratory Results Result Diagrams: 01/08/18 16:45 01/08/18 16:45 Lab Interpretation: Abnormal Interpretation Of Abnormal: Elevated BNP ECG: Interpreted By Me, Viewed By Me ECG Rhythm: Atrial Fibrillation, Nonspecific Changes ECG Interpretation: No Changes From Prior Rate From EC O2 Sat by Pulse Oximetry: 100 (on NC) - Radiology CXR: Viewed By Me, Read By Radiologist CXR Interpretation: Yes: Cardiomegaly Progress - Interventions Interventions:: Observation, Oxygen - Medications Administered Oral: Aspirin Intravenous: Diuretic - Data Reviewed Data Reviewed: Lab, Diagnostic imaging, EKG, Old records - Patient Status Patient status: Partially improved - Continuity of Care Discussed patient case with:: Patient, ED Nurse, PMD - Patient Plan Patient Plan: Admission, Telemetry Disposition Discussed With Dr.: Roque Ocampo Jr. Comment: He accepted pt on his service. Pt was also signed out to [facility]. Doctor Will See Patient In The: Hospital Counseled Patient/Family Regarding: Studies Performed, Diagnosis - Disposition Disposition: HOSPITALIZED Disposition Time: 18:43 Condition: FAIR - Clinical Impression Clinical Impression: Chest pain, CHF (congestive heart failure)
--- NOTE | 2018-01-08 21:06 | CP.PCM.HP ---
History of Present Illness - History of Present Illness History of Present Illness: CC: Shortness of breath and visual disturbances HPI: Patient is a 47 year old male with past medical history of anxiety /depression, asthma, afib, chronic back pain, CAD, CHF, COPD, HTN, HLD, chronic LE edema and substance abuse, who presents to the ED with complaints of shortness of breath and visual disturbances that started 2 days ago. Of note the patient signed out AMA from [facility] on 01/06/18. Upon further questioning regarding history of present illness, patient states that he since leaving the hospital his vision becomes blurry throughout the day. The patient denies any eye pain, discharge, or injury in relation to the HPI. The patient denies any lightheadedness, dizziness, syncopal episodes, nausea, vomiting, sick contacts, or any other complaints. As per chart review: PMD: Dr. Ocampo PMHx: anxiety/depression, asthma, afib, chronic back pain, CAD, CHF, COPD, HTN, HLD, chronic LE edema and substance abuse, SurgHx: Appendectomy, 2008; 4 cardiac stents (2008-) FamHx: Mother- DM, Heart failure, arthritis Medications: See EMR for medication list Allergies: Apixaban, Plavix, Lovenox, Morphine and warfarin SocHx: smokes 1-2 cigarettes weekly (quit 9 months ago; former heavy smoker since 9 years old); denies alcohol; + cocaine use Present on Admission - Present on Admission Any Indicators Present on Admission: No Review of Systems - Constitutional Constitutional: absent: Chills, Frequent Falls, Headache, Snoring, Weakness - EENT Eyes: Blurred Vision. absent: Diplopia, Discharge, Requires Corrective Lenses, Sees Flashes, Other Visual Disturbances, Loss of Vision Ears: absent: Dizziness Nose/Mouth/Throat: absent: Nasal Congestion, Nose Pain, Bleeding Gums, Halitosis , Odynophagia, Facial Pain - Cardiovascular Cardiovascular: absent: Diaphoresis, Irregular Heart Rhythm, Leg Edema, Palpitations, Pedal Edema, Syncope - Respiratory Respiratory: absent: Dyspnea, Hemoptysis, Pain on Inspiration - Gastrointestinal Gastrointestinal: absent: Diarrhea, Dyspepsia, Fecal Incontinence, Loose Stools , Melena, Nausea - Genitourinary Genitourinary: absent: Change in Urinary Stream, Difficulty Urinating, Dysuria, Pyuria, Nocturia - Neurological Neurological: absent: Abnormal Hearing, Burning Sensations, Numbness, Lack of Coordination, Radicular Pain, Vertigo, Weakness - Psychiatric Psychiatric: absent: Abnormal Sleep Pattern, Anhedonia, Hopelessness, Panic Attacks, Tactile Hallucinations - Endocrine Endocrine: absent: Deepening of Voice, Polyuria - Hematologic/Lymphatic Hematologic: absent: Easy Bleeding, Easy Bruising Past Patient History - Infectious Disease Hx of Infectious Diseases: None - Tetanus Immunizations Tetanus Immunization: Up to Date - Past Medical History & Family History Past Medical History?: Yes - Past Social History Smoking Status: Current Some Days Smoker - CARDIAC Hx Atrial Fibrillation: Yes Hx Cardia Arrhythmia: Yes Hx Congestive Heart Failure: Yes Hx Hypercholesterolemia: Yes Hx Hypertension: Yes Hx Peripheral Edema: Yes - PULMONARY Hx Asthma: Yes Hx Chronic Obstructive Pulmonary Disease (COPD): Yes Hx Pneumonia: Yes Hx Sleep Apnea: Yes - HEENT Hx HEENT Problems: No - ENDOCRINE/METABOLIC Hx Endocrine Disorders: No - HEMATOLOGICAL/ONCOLOGICAL Hx Blood Disorders: Yes Hx Blood Transfusions: Yes Other/Comment: MRSA Hx - INTEGUMENTARY Hx Dermatological Problems: Yes Hx Cellulitis: Yes - MUSCULOSKELETAL/RHEUMATOLOGICAL Hx Arthritis: Yes - GASTROINTESTINAL Hx Gastrointestinal Disorders: Yes Other/Comment: Splenic Hematoma - GENITOURINARY/GYNECOLOGICAL Hx Genitourinary Disorders: No - PSYCHIATRIC Hx Anxiety: Yes Hx Bipolar Disorder: Yes Hx Depression: Yes Hx Substance Use: Yes (cocaine) - SURGICAL HISTORY Hx Appendectomy: Yes (2008) Hx Coronary Stent: Yes (2008 - 2012 4 stents) - ANESTHESIA Hx Anesthesia: Yes Hx Anesthesia Reactions: No Hx Malignant Hyperthermia: No Meds Allergies/Adverse Reactions: Allergies Allergy/AdvReac Type Severity Reaction Status Date / Time apixaban [From Eliquis] Allergy RASH Verified 01/04/18 23:08 clopidogrel bisulfate Allergy RASH Verified 01/04/18 23:08 [From Plavix] enoxaparin sodium Allergy RASH Verified 01/04/18 23:08 [From Lovenox] morphine Allergy RASH Verified 01/04/18 23:08 warfarin Allergy RASH Verified 01/04/18 23:08 Physical Exam - Head Exam Head Exam: ATRAUMATIC, NORMOCEPHALIC - Eye Exam Eye Exam: EOMI, Normal appearance, PERRL Pupil Exam: NORMAL ACCOMODATION, PERRL. absent: Unequal - ENT Exam ENT Exam: Mucous Membranes Moist, Normal Exam, Normal Oropharynx - Neck Exam Neck exam: Positive for: Normal Inspection. Negative for: Lymphadenopathy, Thyromegaly - Respiratory Exam Respiratory Exam: Decreased Breath Sounds, NORMAL BREATHING PATTERN. absent: Chest Wall Tenderness, Prolonged Expiratory Phase - Cardiovascular Exam Cardiovascular Exam: REGULAR RHYTHM, +S1, +S2 - GI/Abdominal Exam GI & Abdominal Exam: Normal Bowel Sounds, Soft. absent: Hypoactive Bowel Sounds , Organomegaly, Tenderness - Extremities Exam Extremities exam: Positive for: full ROM. Negative for: joint swelling, pedal edema, tenderness - Back Exam Back exam: NORMAL INSPECTION. absent: paraspinal tenderness - Neurological Exam Neurological exam: Alert, CN II-XII Intact, Oriented x3 - Psychiatric Exam Psychiatric exam: Normal Affect, Normal Mood - Skin Skin Exam: Dry, Intact Results - Vital Signs Recent Vital Signs: Last Vital Signs Temp 98.7 F 01/08/18 15:16 Pulse 88 01/08/18 19:07 Resp 18 01/08/18 19:07 BP 161/98 H 01/08/18 19:07 Pulse Ox 97 01/08/18 19:07 - Labs Result Diagrams: 01/08/18 16:45 01/08/18 16:45 Labs: Laboratory Results - last 24 hr 01/08/18 01/08/18 01/08/18 16:45 16:45 16:45 WBC 8.6 RBC 5.08 Hgb 13.8 Hct 42.4 MCV 83.3 MCH 27.2 MCHC 32.6 L RDW 17.8 H Plt Count 245 MPV 8.3 Neut % (Auto) 72.4 Lymph % (Auto) 13.1 L [place] % (Auto) 9.6 Eos % (Auto) 3.9 Baso % (Auto) 1.0 Neut # (Auto) 6.2 Lymph # (Auto) 1.1 [place] # (Auto) 0.8 Eos # (Auto) 0.3 Baso # (Auto) 0.1 Sodium 138 Potassium 4.7 Chloride 99 Carbon Dioxide 30 Anion Gap 13 BUN 16 Creatinine 1.0 Est GFR ( Amer) > 60 Est GFR (Non-Af Amer) > 60 Random Glucose 83 Calcium 9.0 Total Bilirubin 0.5 AST 42 ALT 45 Alkaline Phosphatase 76 Troponin I 0.0560 NT-Pro-B Natriuret Pep 3760 H Total Protein 8.1 Albumin 3.9 Globulin 4.2 H Albumin/Globulin Ratio 0.9 L Urine Color Urine Clarity Urine pH Ur Specific [place] Urine Protein Urine Glucose (UA) Urine Ketones Urine Blood Urine Nitrate Urine Bilirubin Urine Urobilinogen Ur Leukocyte Esterase Urine WBC (Auto) Urine RBC (Auto) Hyaline Casts Digoxin < 0.4 L Urine Opiates Screen Urine Methadone Screen Ur Barbiturates Screen Ur Phencyclidine Scrn Ur Amphetamines Screen U Benzodiazepines Scrn U Oth Cocaine Metabols U Cannabinoids Screen 01/08/18 01/08/18 17:08 17:08 WBC RBC Hgb Hct MCV MCH MCHC RDW Plt Count MPV Neut % (Auto) Lymph % (Auto) [place] % (Auto) Eos % (Auto) Baso % (Auto) Neut # (Auto) Lymph # (Auto) [place] # (Auto) Eos # (Auto) Baso # (Auto) Sodium Potassium Chloride Carbon Dioxide Anion Gap BUN Creatinine Est GFR ( Amer) Est GFR (Non-Af Amer) Random Glucose Calcium Total Bilirubin AST ALT Alkaline Phosphatase Troponin I NT-Pro-B Natriuret Pep Total Protein Albumin Globulin Albumin/Globulin Ratio Urine Color Yellow Urine Clarity Hazy Urine pH 5.0 Ur Specific [place] 1.020 Urine Protein 1+ H Urine Glucose (UA) Normal Urine Ketones Negative Urine Blood Negative Urine Nitrate Negative Urine Bilirubin Negative Urine Urobilinogen 2.0 Ur Leukocyte Esterase Neg Urine WBC (Auto) 1 Urine RBC (Auto) 2 Hyaline Casts 3-5 H Digoxin Urine Opiates Screen Negative Urine Methadone Screen Negative Ur Barbiturates Screen Negative Ur Phencyclidine Scrn Negative Ur Amphetamines Screen Negative U Benzodiazepines Scrn Positive U Oth Cocaine Metabols Positive H U Cannabinoids Screen Negative Assessment & Plan - Assessment and Plan (Free Text) Plan: (1) Acute exacerbation of CHF (congestive heart failure) Assessment and Plan: On admission: BNP 3760, Troponin .05 Troponin negative X1, f/u repeat troponin Chest xray : marked cardiomegaly, moderate interstitial prominence may reflect edema or infection ECHO (02/2017): LV systolic function severely reduced. LV mildly dilated. Severe global hypokinesis of LV. Negative for endocarditis. Continue home medications: * Lasix 40mg PO daily * Aldactone 25mg PO daily * Fluid restriction, daily weight As per previous admissions documentation, patient continually refuses ACID placement Status: Acute (3) Hypertension Assessment and Plan: Stable Continue home medication: * Lasix 40mg PO daily * Aldactone 25mg PO daily Status: Chronic (4) History of coronary artery disease Assessment and Plan: Continue home medications: * Aspirin 81mg PO daily * Crestor 10mg PO daily Status: Acute (5) History of atrial fibrillation Assessment and Plan: Continue home medications: * Digoxin 0.125mg PO daily * Continue to monitor with telemetry * Reconcile more home medications for A. fibrillation as needed As per previous admissions documentation, patient continually refuses anticoagulation Status: Acute (6) History of psychiatric disorder Assessment and Plan: anxiety Continue home medication: Xanax 1mg PO Q6 prn Status: Acute (7) History of COPD Assessment and Plan: Albuterol duonebs q3h prn Status: Acute (8) History of substance abuse Assessment and Plan: Cocaine use: F/u UDS hold use of Beta Yonis Status: Acute (9) Prophylactic measure Assessment and Plan: SCDs contraindicated due to b/l LE edema Heparin 5,000 units SC q12h Protonix 40mg PO daily Heart healthy diet Status: Acute
[2018-01-08] MEDS ORDERED: Albuterol-Ipratrop 3 mg / 0.5 (3 ml) UD ONE (23:57)
[2018-01-09 07:01] LABS: BASO # 0.1 K/uL (0.0-0.2); BASO % 1.2 % (0.0-2.0); EOS # 0.3 K/uL (0.0-0.7); EOS % 3.5 % (0.0-4.0); HEMOGLOBIN 14.1 g/dL (12.0-18.0); LYMPH # 1.8 K/uL (1.0-4.3); LYMPH % 20.1 % (20.0-40.0); MEAN CELL VOLUME 82.7 fL (80.0-94.0); MEAN CORPUSCULAR HEMOGLOBIN 27.5 pg (27.0-31.0); MEAN CORPUSCULAR HGB CONC 33.2 g/dL (33.0-37.0); MEAN PLATELET VOLUME 8.5 fL (7.2-11.7); MONO # 0.9 K/uL (0.0-0.8); MONO % 10.6 % (0.0-10.0); NEUT # 5.8 K/uL (1.8-7.0); NEUT % 64.6 % (50.0-75.0); NRBC % 0.2 % (0.0-2.0); RBC 5.11 Mil/uL (4.40-5.90); RED CELL DISTRIBUTION WIDTH 17.3 % (11.5-14.5); WHITE BLOOD COUNT 8.9 K/uL (4.8-10.8)
[2018-01-09 07:05] LABS: ALB/GLOB RATIO 0.9 (1.0-2.1); ALBUMIN 3.7 g/dL (3.5-5.0); ALT/SGPT 44 U/L (21-72); AST/SGOT 37 U/L (17-59); BLOOD UREA NITROGEN 20 mg/dL (9-20); GFR AFRICAN-AMERICAN > 60; GFR NON-AFRICAN AMERICAN > 60
[2018-01-09] MEDS: Albuterol-Ipratrop 3 mg / 0.5 (3 ml) UD INH PRN ×2 (07:18→13:25)
[2018-01-09] MEDS: Aspirin 325 mg EC Tablets PO SCH (09:43)
[2018-01-09] MEDS: Pantoprazole 40 mg EC Tab PO SCH (09:43)
[2018-01-09] MEDS: Digoxin 125 mcg (0.125 mg) Tab PO SCH (17:22)
--- NOTE | 2018-01-09 19:06 | CP.PCM.PN ---
Subjective - Date & Time of Evaluation Date of Evaluation: 01/09/18 Time of Evaluation: 18:59 - Subjective Subjective: PGY2 progress note for Dr. Ocampo Pt seen and examined at bedside. No acute events overnight. Pt complaining about not receiving his pain medications and benadryl. States that his vision gets blurry when he leaves from the hospital. Denies having any CP currently, no SOB, no abd pain, N/V/D/C, F/C. Objective - Vital Signs/Intake and Output Vital Signs (last 24 hours): Temp Pulse Resp BP Pulse Ox 97.4 F L 57 L 20 155/83 H 95 01/09/18 04:20 01/09/18 08:49 01/09/18 08:49 01/09/18 09:42 01/09/18 05:41 Intake and Output: 01/09/18 01/09/18 06:59 18:59 Intake Total 500 400 Balance 500 400 - Medications Medications: Current Medications Acetaminophen (Tylenol 325mg Tab) 650 mg PO Q6 PRN PRN Reason: Pain, moderate (4-7) Albuterol/Ipratropium (Duoneb 3 Mg/0.5 Mg (3 Ml) Ud) 3 ml INH RQ4 PRN PRN Reason: Shortness of Breath Last Admin: 01/09/18 13:25 Dose: 3 ml Alprazolam (Xanax) 1 mg PO BID PRN PRN Reason: Anxiety Last Admin: 01/09/18 17:24 Dose: 1 mg Aspirin (Ecotrin) 325 mg PO DAILY [facility] Last Admin: 01/09/18 09:43 Dose: 325 mg Carvedilol (Coreg) 12.5 mg PO Q12 [facility] Last Admin: 01/09/18 09:42 Dose: 12.5 mg Cyclobenzaprine HCl (Flexeril) 10 mg PO DAILY [facility] Last Admin: 01/09/18 13:37 Dose: Not Given Digoxin (Digoxin) 0.125 mg PO DAILY@1800 [facility] Last Admin: 01/09/18 17:22 Dose: 0.125 mg Diltiazem HCl (Cardizem) 30 mg PO QID [facility] Last Admin: 01/09/18 17:21 Dose: 30 mg Famotidine (Pepcid) 20 mg PO DAILY [facility] Last Admin: 01/09/18 09:42 Dose: 20 mg Furosemide (Lasix) 40 mg PO DAILY [facility] Last Admin: 01/09/18 09:42 Dose: 40 mg Gabapentin (Neurontin) 300 mg PO TID [facility] Last Admin: 01/09/18 17:21 Dose: 300 mg Montelukast Sodium (Singulair) 10 mg PO [facility] Pantoprazole Sodium (Protonix Ec Tab) 40 mg PO DAILY [facility] Last Admin: 01/09/18 09:43 Dose: 40 mg Rosuvastatin Calcium (Crestor) 5 mg PO [facility] - Labs Labs: 01/09/18 06:37 01/09/18 06:37 - Constitutional Appears: Non-toxic, No Acute Distress - ENT Exam ENT Exam: Mucous Membranes Moist - Respiratory Exam Respiratory Exam: Clear to Ausculation Bilateral. absent: Accessory Muscle Use , Rales, Rhonchi, Wheezes - Cardiovascular Exam Cardiovascular Exam: REGULAR RHYTHM, +S1, +S2. absent: Gallop, Rubs, Murmur - GI/Abdominal Exam GI & Abdominal Exam: Soft, Normal Bowel Sounds. absent: Distended, Firm, Guarding, Rigid, Tenderness, Organomegaly - Extremities Exam Extremities Exam: absent: Pedal Edema, Tenderness - Neurological Exam Neurological Exam: Alert, Awake, Oriented x3 - Psychiatric Exam Psychiatric exam: Normal Affect, Normal Mood - Skin Skin Exam: Dry, Intact, Normal Color, Warm Assessment and Plan - Assessment and Plan (Free Text) Assessment: (1) Acute exacerbation of CHF (congestive heart failure) Assessment and Plan: On admission: BNP 3760, Troponin .05 Troponin negative X1, f/u repeat troponin Chest xray : marked cardiomegaly, moderate interstitial prominence may reflect edema or infection ECHO (02/2017): LV systolic function severely reduced. LV mildly dilated. Severe global hypokinesis of LV. Negative for endocarditis. Continue home medications: * Lasix 40mg PO daily * Aldactone 25mg PO daily * Fluid restriction, daily weight As per previous admissions documentation, patient continually refuses ACID placement Status: Acute (3) Hypertension Assessment and Plan: Stable Continue home medication: * Lasix 40mg PO daily * Aldactone 25mg PO daily Status: Chronic (4) History of coronary artery disease Assessment and Plan: Continue home medications: * Aspirin 81mg PO daily * Crestor 10mg PO daily Status: Acute (5) History of atrial fibrillation Assessment and Plan: Continue home medications: * Digoxin 0.125mg PO daily * Continue to monitor with telemetry * Reconcile more home medications for A. fibrillation as needed As per previous admissions documentation, patient continually refuses anticoagulation Status: Acute (6) History of psychiatric disorder Assessment and Plan: anxiety Continue home medication: Xanax 1mg PO Q6 prn Status: Acute (7) History of COPD Assessment and Plan: Albuterol duonebs q3h prn Status: Acute (8) History of substance abuse Assessment and Plan: Cocaine use: F/u UDS hold use of Beta Yonis Status: Acute (9) Hx Intracranial bleed, splenic infarct Assessment and Plan: * Head CT (01/05/18): no evidence of acute intracranial injury/fractures; large area of encephalomalacia in right occipital lobe, most compatible with chronic infarct * Will consult neurology, Dr. Nevin Hurt (10) Chronic pain * Continue home medications: Endocet 5/325 Q6 2 tabs prn pain, Dilaudid 0.5 mg IVP q6 prn pain, benadryl 25 mg IVP q6 prn (9) Prophylactic measure Assessment and Plan: SCDs contraindicated due to b/l LE edema Heparin 5,000 units SC q12h Protonix 40mg PO daily Heart healthy diet Status: Acute
[2018-01-09] MEDS ORDERED: DiphenhydrAMINE 50 mg/ml Inj IVP STA ×2 (19:18→20:29)
[2018-01-09] MEDS ORDERED: Oxycodone/Acetaminophen 5/325 mg Tab PO PRN (19:18)
[2018-01-10] MEDS: Albuterol-Ipratrop 3 mg / 0.5 (3 ml) UD INH PRN ×2 (07:05→13:19)
[2018-01-10 08:47] LABS: BASO # 0.1 K/uL (0.0-0.2); BASO % 1.2 % (0.0-2.0); EOS # 0.4 K/uL (0.0-0.7); EOS % 4.2 % (0.0-4.0); LYMPH # 2.1 K/uL (1.0-4.3); LYMPH % 24.2 % (20.0-40.0); MEAN CELL VOLUME 83.8 fL (80.0-94.0); MEAN CORPUSCULAR HEMOGLOBIN 26.9 pg (27.0-31.0); MEAN CORPUSCULAR HGB CONC 32.1 g/dL (33.0-37.0); MEAN PLATELET VOLUME 8.5 fL (7.2-11.7); MONO # 1.3 K/uL (0.0-0.8); NEUT # 4.8 K/uL (1.8-7.0); NEUT % 55.4 % (50.0-75.0); NRBC % 0.1 % (0.0-2.0); RBC 5.19 Mil/uL (4.40-5.90); RED CELL DISTRIBUTION WIDTH 17.4 % (11.5-14.5); WHITE BLOOD COUNT 8.7 K/uL (4.8-10.8)
[2018-01-10 09:19] LABS: ALB/GLOB RATIO 0.9 (1.0-2.1); ALBUMIN 3.8 g/dL (3.5-5.0); ALT/SGPT 43 U/L (21-72); AST/SGOT 40 U/L (17-59); BLOOD UREA NITROGEN 21 mg/dL (9-20); CALCIUM 8.8 mg/dl (8.6-10.4); GFR AFRICAN-AMERICAN > 60; GFR NON-AFRICAN AMERICAN > 60
[2018-01-10] MEDS: Aspirin 325 mg EC Tablets PO SCH (09:27)
[2018-01-10] MEDS: Pantoprazole 40 mg EC Tab PO SCH (09:28)
--- NOTE | 2018-01-10 11:52 | CP.PCM.PN ---
Subjective - Date & Time of Evaluation Date of Evaluation: 01/10/18 Time of Evaluation: 11:46 - Subjective Subjective: PGY2 progress note for Dr. Ocampo Pt seen and examined at bedside. No acute events overnight. Pt is complaining that he did not get enough pain medications overnight. Currently denies having any CP, SOB, abd pain, N/v/D/C. Pt still c/o blurry vision and pain in right eye. Objective - Vital Signs/Intake and Output Vital Signs (last 24 hours): Temp Pulse Resp BP Pulse Ox 98.5 F 75 20 160/78 H 96 01/09/18 23:15 01/09/18 23:15 01/09/18 23:15 01/10/18 09:27 01/09/18 23:15 Intake and Output: 01/10/18 01/10/18 06:59 18:59 Intake Total 1080 Balance 1080 - Medications Medications: Current Medications Acetaminophen (Tylenol 325mg Tab) 650 mg PO Q6 PRN PRN Reason: Pain, moderate (4-7) Albuterol/Ipratropium (Duoneb 3 Mg/0.5 Mg (3 Ml) Ud) 3 ml INH RQ4 PRN PRN Reason: Shortness of Breath Last Admin: 01/10/18 07:05 Dose: 3 ml Alprazolam (Xanax) 1 mg PO BID PRN PRN Reason: Anxiety Last Admin: 01/10/18 09:27 Dose: 1 mg Aspirin (Ecotrin) 325 mg PO DAILY [facility] Last Admin: 01/10/18 09:27 Dose: 325 mg Carvedilol (Coreg) 12.5 mg PO Q12 [facility] Last Admin: 01/10/18 09:27 Dose: 12.5 mg Cyclobenzaprine HCl (Flexeril) 10 mg PO DAILY [facility] Last Admin: 01/10/18 09:28 Dose: 10 mg Digoxin (Digoxin) 0.125 mg PO DAILY@1800 [facility] Last Admin: 01/09/18 17:22 Dose: 0.125 mg Diltiazem HCl (Cardizem) 30 mg PO QID [facility] Last Admin: 01/10/18 09:31 Dose: 30 mg Famotidine (Pepcid) 20 mg PO DAILY [facility] Last Admin: 01/10/18 09:27 Dose: 20 mg Furosemide (Lasix) 40 mg PO DAILY [facility] Last Admin: 01/10/18 09:27 Dose: 40 mg Gabapentin (Neurontin) 300 mg PO TID [facility] Last Admin: 01/10/18 09:27 Dose: 300 mg Hydromorphone HCl (Dilaudid) 0.5 mg IVP Q6H PRN PRN Reason: Pain, moderate (4-7) Last Admin: 01/10/18 02:36 Dose: 0.5 mg Montelukast Sodium (Singulair) 10 mg PO [facility] Last Admin: 01/09/18 21:28 Dose: 10 mg Oxycodone/Acetaminophen (Percocet 5/325 Mg Tab) 1 tab PO Q6H PRN PRN Reason: Pain, moderate (4-7) Stop: 01/12/18 19:19 Last Admin: 01/10/18 05:46 Dose: 1 tab Pantoprazole Sodium (Protonix Ec Tab) 40 mg PO DAILY [facility] Last Admin: 01/10/18 09:28 Dose: 40 mg Rosuvastatin Calcium (Crestor) 5 mg PO [facility] Last Admin: 01/09/18 21:28 Dose: 5 mg - Labs Labs: 01/10/18 08:29 01/10/18 08:29 - Constitutional Appears: Non-toxic, No Acute Distress - Head Exam Head Exam: ATRAUMATIC - ENT Exam ENT Exam: Mucous Membranes Moist - Respiratory Exam Respiratory Exam: Clear to Ausculation Bilateral. absent: Accessory Muscle Use , Rales, Rhonchi, Wheezes, Respiratory Distress - Cardiovascular Exam Cardiovascular Exam: REGULAR RHYTHM, +S1, +S2. absent: Gallop, Rubs, Murmur - GI/Abdominal Exam GI & Abdominal Exam: Soft, Normal Bowel Sounds. absent: Distended, Firm, Guarding, Rigid, Tenderness, Organomegaly - Extremities Exam Extremities Exam: absent: Pedal Edema, Tenderness - Neurological Exam Neurological Exam: Alert, Awake, Oriented x3 - Psychiatric Exam Psychiatric exam: Normal Affect, Normal Mood - Skin Skin Exam: Dry, Intact, Normal Color, Warm Assessment and Plan - Assessment and Plan (Free Text) Assessment: (1) Acute exacerbation of CHF (congestive heart failure) Assessment and Plan: On admission: BNP 3760, Troponin .05 Troponin negative X1, f/u repeat troponin Chest xray : marked cardiomegaly, moderate interstitial prominence may reflect edema or infection ECHO (02/2017): LV systolic function severely reduced. LV mildly dilated. Severe global hypokinesis of LV. Negative for endocarditis. Continue home medications: * Lasix 40mg PO daily * Aldactone 25mg PO daily * Fluid restriction, daily weight As per previous admissions documentation, patient continually refuses ACID placement Status: Acute (3) Hypertension Assessment and Plan: Stable Continue home medication: * Lasix 40mg PO daily * Aldactone 25mg PO daily Status: Chronic (4) History of coronary artery disease Assessment and Plan: Continue home medications: * Aspirin 81mg PO daily * Crestor 10mg PO daily Status: Acute (5) History of atrial fibrillation Assessment and Plan: Continue home medications: * Digoxin 0.125mg PO daily * Continue to monitor with telemetry * Reconcile more home medications for A. fibrillation as needed As per previous admissions documentation, patient continually refuses anticoagulation Status: Acute (6) History of psychiatric disorder Assessment and Plan: anxiety Continue home medication: Xanax 1mg PO Q6 prn Status: Acute (7) History of COPD Assessment and Plan: Albuterol duonebs q3h prn Status: Acute (8) History of substance abuse Assessment and Plan: Cocaine use: F/u UDS hold use of Beta Yonsi Status: Acute (9) Hx Intracranial bleed, splenic infarct Assessment and Plan: * Head CT (01/05/18): no evidence of acute intracranial injury/fractures; large area of encephalomalacia in right occipital lobe, most compatible with chronic infarct * Neurology, Dr. Hurt is consulted. Recommends getting repeat MRI of brain * MRI of brain ordered with and without contrast. (10) Chronic pain * Continue home medications: Endocet 5/325 Q6 2 tabs prn pain, Dilaudid 0.5 mg IVP q6 prn pain, benadryl 25 mg IVP q6 prn (9) Prophylactic measure Assessment and Plan: SCDs contraindicated due to b/l LE edema Heparin 5,000 units SC q12h Protonix 40mg PO daily Heart healthy diet Patient will be given script for rolling walker. All managements and orders per Dr. Ocampo
[2018-01-10] MEDS: Digoxin 125 mcg (0.125 mg) Tab PO SCH (17:28)
[2018-01-10] MEDS: Oxycodone/Acetaminophen 5/325 mg Tab PO PRN (19:23)
[2018-01-11] MEDS: Albuterol-Ipratrop 3 mg / 0.5 (3 ml) UD INH PRN (05:11)
[2018-01-11 07:42] LABS: BASO # 0.1 K/uL (0.0-0.2); BASO % 1.1 % (0.0-2.0); EOS # 0.4 K/uL (0.0-0.7); EOS % 4.1 % (0.0-4.0); HEMOGLOBIN 13.7 g/dL (12.0-18.0); LYMPH # 1.9 K/uL (1.0-4.3); LYMPH % 20.3 % (20.0-40.0); MEAN CELL VOLUME 83.8 fL (80.0-94.0); MEAN CORPUSCULAR HEMOGLOBIN 26.9 pg (27.0-31.0); MEAN CORPUSCULAR HGB CONC 32.1 g/dL (33.0-37.0); MONO % 11.5 % (0.0-10.0); NEUT # 5.7 K/uL (1.8-7.0); NRBC % 0.1 % (0.0-2.0); RBC 5.11 Mil/uL (4.40-5.90); RED CELL DISTRIBUTION WIDTH 17.1 % (11.5-14.5); WHITE BLOOD COUNT 9.1 K/uL (4.8-10.8)
[2018-01-11 07:48] LABS: ALB/GLOB RATIO 0.9 (1.0-2.1); ALBUMIN 3.9 g/dL (3.5-5.0); ALT/SGPT 46 U/L (21-72); AST/SGOT 40 U/L (17-59); BLOOD UREA NITROGEN 24 mg/dL (9-20); CALCIUM 8.7 mg/dl (8.6-10.4); GFR AFRICAN-AMERICAN > 60; GFR NON-AFRICAN AMERICAN 59
[2018-01-11] MEDS: Aspirin 325 mg EC Tablets PO SCH (09:04)
[2018-01-11] MEDS: Pantoprazole 40 mg EC Tab PO SCH (09:05)
--- NOTE | 2018-01-11 11:14 | CARD ---
APPROVED REPORT EKG Measurement Heart [id number] <Conclusion> Atrial fibrillation with rapid ventricular response with premature ventricular or aberrantly conducted complexes Left anterior fascicular block Inferior infarct, age undetermined ST & T wave abnormality, consider anterolateral ischemia Abnormal ECG
[2018-01-11] MEDS: Oxycodone/Acetaminophen 5/325 mg Tab PO PRN ×2 (13:09→18:57)
[2018-01-11 16:05] VITALS: RESP 20
--- NOTE | 2018-01-11 16:25 | CON ---
DATE: 01/11/2018 AGE: 47-year-old male. CHIEF COMPLAINT: Blurry vision. 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 Comes in with intermittent chest pain, found to have acute CHF, is currently being treated. Echocardiogram in 02/2015 showed left ventricular systolic function severely reduced, left ventricle mildly dilated and severe global hypokinesis of the left ventricle. Currently, he has had some mild residual left homonymous hemianopsia from prior CVA in the right [employer] territory, otherwise follows commands. No new weakness seen on neuro examination. He is on Cardizem for his underlying AFib. His CAT scan of the head just shows some large ____ right [employer] territory consistent with an old infarction. He has been on aspirin for stroke prevention and Flexeril for his underlying muscle spasm. REVIEW OF SYSTEMS: A 14-point review of systems is negative except as per the HPI. ALLERGIES: QUESTIONABLE TO ANTICOAGULANTS. SOCIAL HISTORY: History of cocaine use, occasional ETOH use and occasional smoking. FAMILY HISTORY: Noncontributory. MEDICATIONS: Reviewed by nursing reconciliation sheet. PHYSICAL EXAMINATION: VITAL SIGNS: The patient is afebrile, pulse rate 75, blood pressure 160/78, respiratory rate of 20, oxygen saturation 96% via room air. GENERAL: The patient is sitting up in bed, in no acute distress. HEENT: Head is atraumatic and normocephalic. PERRLA. Extraocular muscles intact. NECK: Supple. No JVD. No adenopathy noted. LUNGS: Clear to auscultation. No adventitious sounds. HEART: S1 and S2. Normal rate and rhythm. No murmurs, rubs, or gallops. ABDOMEN: Soft, nontender, nondistended. Bowel sounds present. EXTREMITIES: No clubbing. No cyanosis. Has mild trace pedal edema. NEUROLOGIC: The patient is alert, and oriented to person, place, month, and year. Speech is fluent without any errors. Cranial nerves II through XII intact except for left residual homonymous hemianopsia from prior CVA in the right [employer] territory. Motor examination: Normal tone. No pronator drift. Slight decreased pinprick on the right compared to the left hand. Sensory: He has decreased light touch and pinprick up to the calves bilaterally. Decreased vibration on the toes. DTRs are 2+ throughout, 1 at the ankles. Coordination: [id number] intact. Gait is deferred for now. There is some mild proprioception difficulty due to his residual left homonymous hemianopsia from the prior CVA. LABORATORY DATA: His U-Tox from 01/08/2018 showed positive for cocaine. Otherwise, sodium is 137, potassium 4.4, chloride of 98, carbon dioxide of 26, BUN of 24, creatinine 1.2, random glucose of 90. ASSESSMENT AND PLAN: This is a 47-year-old man, noncompliant patient with history of anxiety; depression; atrial fibrillation; chronic back pain, on Flexeril; chronic obstructive pulmonary disease; chronic congestive heart failure; coronary artery disease; hypertension; hyperlipidemia; chronic lower extremity edema; history of right posterior cerebral artery territory infarct with hemorrhagic conversion due to history of cocaine use in the past. Came in intermittent chest pain and found to have mild acute congestive heart failure, currently being managed. He was consulted for blurry vision. His blurred vision is residual from his right posterior cerebral artery territory infarct. He has some pain in the right eye, but otherwise stable. He does have U-Tox ____ 01/08/2018, which can cause transient vasospasm to the cerebral arteries causing worsening of blurry vision as well. RECOMMENDATIONS: At this time, I recommend, 1. Aspirin 81 mg p.o. daily. 2. We will recommend Eliquis for him to be on given his history of AFib and cocaine use for preventing embolic infarcts. 3. Follow up with Cardiology recommendation. 4. Fioricet one tablet q.4 hours for the acute onset of headache. 5. Continue to monitor electrolytes and correct accordingly. 6. Atorvastatin 40 mg p.o. daily for stroke prevention. 7. Continue current present medical management. Thank you for this consult. We will follow with you as an outpatient. Amilcar Hurt MD [facility] # [id number]
[2018-01-11] MEDS: Digoxin 125 mcg (0.125 mg) Tab PO SCH (18:55)
--- NOTE | 2018-01-11 19:48 | CP.PCM.PN ---
Subjective - Date & Time of Evaluation Date of Evaluation: 01/11/18 Time of Evaluation: 08:55 - Subjective Subjective: PGY1 Medicine Note for Dr. Ocampo Patient seen and examined at bedside this morning. Patient was sleeping in chair upon entrance into the room. He states that his right leg is extremely painful and swollen. He states he has been attempting to keep it raised on the bed but he is unable to due to it is painful to sit in the chair with it. He is scheduled for an MRI today. He states that he is gets very anxious while in a closed space. Informed nurse to call prior to MRI and will give 1 mg of Ativan prior to help with anxiety. He complains of mild, intermittent abdominal pain, which is chronic. Patient denies fevers, chills, nausea, vomiting, diarrhea, constipation, chest pain, SOB or headaches. Objective - Vital Signs/Intake and Output Vital Signs (last 24 hours): Temp Pulse Resp BP Pulse Ox 96 F L 78 20 109/70 99 01/11/18 16:00 01/11/18 16:00 01/11/18 16:00 01/11/18 16:00 01/11/18 16:00 Intake and Output: 01/11/18 01/12/18 18:59 06:59 Intake Total 650 Balance 650 - Medications Medications: Current Medications Acetaminophen (Tylenol 325mg Tab) 650 mg PO Q6 PRN PRN Reason: Pain, Mild (1-3) Albuterol/Ipratropium (Duoneb 3 Mg/0.5 Mg (3 Ml) Ud) 3 ml INH RQ4 PRN PRN Reason: Shortness of Breath Last Admin: 01/11/18 05:11 Dose: 3 ml Alprazolam (Xanax) 1 mg PO BID PRN PRN Reason: Anxiety Last Admin: 01/11/18 09:09 Dose: 1 mg Aspirin (Ecotrin) 325 mg PO DAILY [facility] Last Admin: 01/11/18 09:04 Dose: 325 mg Carvedilol (Coreg) 12.5 mg PO Q12 [facility] Last Admin: 01/11/18 09:04 Dose: 12.5 mg Cyclobenzaprine HCl (Flexeril) 10 mg PO DAILY [facility] Last Admin: 01/11/18 09:04 Dose: 10 mg Digoxin (Digoxin) 0.125 mg PO DAILY@1800 [facility] Last Admin: 01/11/18 18:55 Dose: 0.125 mg Diltiazem HCl (Cardizem) 30 mg PO QID [facility] Last Admin: 01/11/18 18:57 Dose: 30 mg Famotidine (Pepcid) 20 mg PO DAILY [facility] Last Admin: 01/11/18 09:05 Dose: 20 mg Furosemide (Lasix) 40 mg PO DAILY [facility] Last Admin: 01/11/18 09:04 Dose: 40 mg Gabapentin (Neurontin) 300 mg PO TID [facility] Last Admin: 01/11/18 18:57 Dose: 300 mg Hydromorphone HCl (Dilaudid) 0.5 mg IVP Q6H PRN PRN Reason: Pain, moderate (4-7) Last Admin: 01/11/18 16:47 Dose: 0.5 mg Montelukast Sodium (Singulair) 10 mg PO [facility] Last Admin: 01/10/18 21:37 Dose: 10 mg Ondansetron HCl (Zofran Inj) 4 mg IVP Q6H PRN PRN Reason: Nausea/Vomiting Last Admin: 01/11/18 14:56 Dose: 4 mg Oxycodone/Acetaminophen (Percocet 5/325 Mg Tab) 2 tab PO Q6H PRN PRN Reason: Pain, severe (8-10) Stop: 01/12/18 19:19 Last Admin: 01/11/18 18:57 Dose: 2 tab Pantoprazole Sodium (Protonix Ec Tab) 40 mg PO DAILY [facility] Last Admin: 01/11/18 09:05 Dose: 40 mg Rosuvastatin Calcium (Crestor) 5 mg PO [facility] Last Admin: 01/10/18 21:37 Dose: 5 mg - Labs Labs: 01/11/18 07:12 01/11/18 07:12 - Constitutional Appears: No Acute Distress - Head Exam Head Exam: ATRAUMATIC, NORMOCEPHALIC - Eye Exam Eye Exam: EOMI - ENT Exam ENT Exam: Mucous Membranes Moist - Respiratory Exam Respiratory Exam: Clear to Ausculation Bilateral, NORMAL BREATHING PATTERN. absent: Accessory Muscle Use, Rales, Rhonchi, Wheezes, Respiratory Distress - Cardiovascular Exam Cardiovascular Exam: REGULAR RHYTHM, JVD, +S1 - GI/Abdominal Exam GI & Abdominal Exam: Soft, Normal Bowel Sounds. absent: Distended, Firm, Guarding, Rigid, Tenderness - Extremities Exam Extremities Exam: absent: Calf Tenderness, Pedal Edema - Neurological Exam Neurological Exam: Alert, Awake, Oriented x3 - Psychiatric Exam Psychiatric exam: Normal Affect, Normal Mood - Skin Skin Exam: Dry, Warm Assessment and Plan - Assessment and Plan (Free Text) Plan: (1) Acute exacerbation of CHF (congestive heart failure) Assessment and Plan: On admission: BNP 3760, Troponin .05 Troponin negative X3 Chest xray : marked cardiomegaly, moderate interstitial prominence may reflect edema or infection ECHO (02/2017): LV systolic function severely reduced. LV mildly dilated. Severe global hypokinesis of LV. Negative for endocarditis. Continue home medications: * Lasix 40mg PO daily * Aldactone 25mg PO daily * Fluid restriction, daily weight Maintenance called for Reclining chair - patient instructed to keep legs elevated As per previous admissions documentation, patient continually refuses ACID placement (2) Hypertension Assessment and Plan: Stable Continue home medication: * Lasix 40mg PO daily * Aldactone 25mg PO daily (3) History of coronary artery disease Assessment and Plan: Continue home medications: * Aspirin 81mg PO daily * Crestor 10mg PO daily Status: Acute (4) History of atrial fibrillation Assessment and Plan: Continue home medications: * Digoxin 0.125mg PO daily * Continue to monitor with telemetry * Reconcile more home medications for A. fibrillation as needed As per previous admissions documentation, patient continually refuses anticoagulation Status: Acute (5) History of psychiatric disorder Assessment and Plan: anxiety Continue home medication: Xanax 1mg PO Q6 prn Status: Acute (6) History of COPD Assessment and Plan: Albuterol duonebs q3h prn Status: Acute (7) History of substance abuse Assessment and Plan: Cocaine use: UDS - positive for Cocaine hold use of Beta Yonis (8) Hx Intracranial bleed, splenic infarct Assessment and Plan: * Head CT (01/05/18): no evidence of acute intracranial injury/fractures; large area of encephalomalacia in right occipital lobe, most compatible with chronic infarct * Neurology, Dr. Hurt is consulted. Recommends getting repeat MRI of brain * MRI of brain ordered with and without contrast. * will give Ativan 1mg prior to MRI (9) Chronic pain Assessment and Plan: * Continue home medications: Endocet 5/325 Q6 2 tabs prn pain, Dilaudid 0.5 mg IVP q6 prn pain, benadryl 25 mg IVP q6 prn (10) Prophylactic measure Assessment and Plan: SCDs contraindicated due to b/l LE edema Heparin 5,000 units SC q12h Protonix 40mg PO daily Heart healthy diet - patient demands Regular diet. Refusing to eat. Patient will be given script for rolling walker. All managements and orders per Dr. Terrence Guevara Joaquim PGY1
[2018-01-12] MEDS: Oxycodone/Acetaminophen 5/325 mg Tab PO PRN ×3 (01:20→17:14)
[2018-01-12 07:38] LABS: BASO # 0.1 K/uL (0.0-0.2); EOS # 0.4 K/uL (0.0-0.7); EOS % 3.8 % (0.0-4.0); HEMOGLOBIN 13.5 g/dL (12.0-18.0); LYMPH # 1.7 K/uL (1.0-4.3); LYMPH % 16.3 % (20.0-40.0); MEAN CELL VOLUME 83.6 fL (80.0-94.0); MEAN CORPUSCULAR HEMOGLOBIN 27.4 pg (27.0-31.0); MEAN CORPUSCULAR HGB CONC 32.8 g/dL (33.0-37.0); MEAN PLATELET VOLUME 8.3 fL (7.2-11.7); MONO # 1.4 K/uL (0.0-0.8); MONO % 13.4 % (0.0-10.0); NEUT # 6.8 K/uL (1.8-7.0); NEUT % 65.5 % (50.0-75.0); RBC 4.93 Mil/uL (4.40-5.90); RED CELL DISTRIBUTION WIDTH 17.1 % (11.5-14.5); WHITE BLOOD COUNT 10.4 K/uL (4.8-10.8)
[2018-01-12 08:26] LABS: ALBUMIN 3.9 g/dL (3.5-5.0); ALT/SGPT 42 U/L (21-72); AST/SGOT 39 U/L (17-59); BLOOD UREA NITROGEN 26 mg/dL (9-20); CALCIUM 8.6 mg/dl (8.6-10.4); GFR AFRICAN-AMERICAN > 60; GFR NON-AFRICAN AMERICAN 54
[2018-01-12] MEDS: Aspirin 325 mg EC Tablets PO SCH (09:09)
[2018-01-12] MEDS: Pantoprazole 40 mg EC Tab PO SCH (09:10)
[2018-01-12] MEDS: HYDROmorphone 0.5 mg/0.5 ml ISec IVP PRN ×2 (13:38→19:44)
--- NOTE | 2018-01-12 16:56 | CP.PCM.PN ---
Subjective - Date & Time of Evaluation Date of Evaluation: 01/12/18 Time of Evaluation: 10:20 - Subjective Subjective: PGY1 Medicine Note for Dr. Ocampo Patient seen and examined at bedside this morning. Patient states he is in pain and requests an increase in his pain medications. He states that he is still experiencing episodes of blurry vision but reports his vision is clear currently. He is scheduled for an MRI later this afternoon. Patient denies fevers, chills, nausea, vomiting, diarrhea, constipation, chest pain, SOB or headaches. Objective - Vital Signs/Intake and Output Vital Signs (last 24 hours): Temp Pulse Resp BP Pulse Ox 98 F 88 20 130/70 96 01/12/18 15:00 01/12/18 15:00 01/12/18 15:00 01/12/18 15:00 01/12/18 15:00 Intake and Output: 01/12/18 01/12/18 06:59 18:59 Intake Total 200 Balance 200 - Medications Medications: Current Medications Acetaminophen (Tylenol 325mg Tab) 650 mg PO Q6 PRN PRN Reason: Pain, Mild (1-3) Albuterol/Ipratropium (Duoneb 3 Mg/0.5 Mg (3 Ml) Ud) 3 ml INH RQ4 PRN PRN Reason: Shortness of Breath Last Admin: 01/11/18 05:11 Dose: 3 ml Alprazolam (Xanax) 1 mg PO BID PRN PRN Reason: Anxiety Last Admin: 01/12/18 09:08 Dose: 1 mg Aspirin (Ecotrin) 325 mg PO DAILY [facility] Last Admin: 01/12/18 09:09 Dose: 325 mg Carvedilol (Coreg) 12.5 mg PO Q12 [facility] Last Admin: 01/12/18 09:10 Dose: 12.5 mg Cyclobenzaprine HCl (Flexeril) 10 mg PO DAILY [facility] Last Admin: 01/12/18 09:09 Dose: 10 mg Digoxin (Digoxin) 0.125 mg PO DAILY@1800 [facility] Last Admin: 01/11/18 18:55 Dose: 0.125 mg Diltiazem HCl (Cardizem) 30 mg PO QID [facility] Last Admin: 01/12/18 13:40 Dose: 30 mg Famotidine (Pepcid) 20 mg PO DAILY [facility] Last Admin: 01/12/18 09:09 Dose: 20 mg Furosemide (Lasix) 40 mg PO DAILY [facility] Last Admin: 01/12/18 09:09 Dose: 40 mg Gabapentin (Neurontin) 300 mg PO TID [facility] Last Admin: 01/12/18 13:37 Dose: 300 mg Hydromorphone HCl (Dilaudid) 0.5 mg IVP Q6H PRN PRN Reason: Pain, moderate (4-7) Last Admin: 01/12/18 13:38 Dose: 0.5 mg Montelukast Sodium (Singulair) 10 mg PO [facility] Last Admin: 01/11/18 22:18 Dose: 10 mg Ondansetron HCl (Zofran Inj) 4 mg IVP Q6H PRN PRN Reason: Nausea/Vomiting Last Admin: 01/12/18 01:18 Dose: 4 mg Oxycodone/Acetaminophen (Percocet 5/325 Mg Tab) 2 tab PO Q6H PRN PRN Reason: Pain, severe (8-10) Stop: 01/12/18 19:19 Last Admin: 01/12/18 07:54 Dose: 2 tab Pantoprazole Sodium (Protonix Ec Tab) 40 mg PO DAILY [facility] Last Admin: 01/12/18 09:10 Dose: 40 mg Rosuvastatin Calcium (Crestor) 5 mg PO [facility] Last Admin: 01/11/18 22:18 Dose: 5 mg - Labs Labs: 01/12/18 07:32 01/12/18 07:32 - Constitutional Appears: Non-toxic, No Acute Distress - Head Exam Head Exam: ATRAUMATIC, NORMOCEPHALIC - Eye Exam Eye Exam: EOMI, Normal appearance Pupil Exam: NORMAL ACCOMODATION - ENT Exam ENT Exam: Mucous Membranes Moist - Respiratory Exam Respiratory Exam: Clear to Ausculation Bilateral, NORMAL BREATHING PATTERN. absent: Accessory Muscle Use, Rales, Rhonchi, Wheezes, Respiratory Distress - Cardiovascular Exam Cardiovascular Exam: REGULAR RHYTHM, +S1, +S2 - GI/Abdominal Exam GI & Abdominal Exam: Soft, Normal Bowel Sounds. absent: Distended, Firm, Guarding, Rigid, Tenderness - Extremities Exam Extremities Exam: absent: Calf Tenderness, Pedal Edema - Neurological Exam Neurological Exam: Alert, Awake, Oriented x3 - Psychiatric Exam Psychiatric exam: Normal Affect, Normal Mood - Skin Skin Exam: Dry, Warm Assessment and Plan - Assessment and Plan (Free Text) Plan: (1) Acute exacerbation of systolic CHF (congestive heart failure) On admission: BNP 3760, Troponin .05 Troponin negative X3 Chest xray : marked cardiomegaly, moderate interstitial prominence may reflect edema or infection ECHO (12/13/17): LV is severely dilated with global hypokinesis. LV systolic function is severely impaired. EF is ~25% Continue home medications: * Lasix 40mg PO daily * Aldactone 25mg PO daily * Fluid restriction, daily weight Maintenance called for Reclining chair - patient instructed to keep legs elevated As per previous admissions documentation, patient continually refuses ACID placement (2) Hypertension Stable Continue home medication: * Lasix 40mg PO daily * Aldactone 25mg PO daily (3) Episodes of Blurry Vision Attempted to get Brain MRI today. Patient received 1mg of Ativan prior to study but was unable to tolerate the study and was returned to the floor without the study being preformed. Will re-attempt tomorrow. (4) History of coronary artery disease Continue home medications: * Aspirin 81mg PO daily * Crestor 10mg PO daily (5) History of atrial fibrillation Continue home medications: * Digoxin 0.125mg PO daily * Continue to monitor with telemetry * Reconcile more home medications for A. fibrillation as needed As per previous admissions documentation, patient continually refuses anticoagulation (6) History of psychiatric disorder anxiety Continue home medication: Xanax 1mg PO Q6 prn (7) History of COPD Albuterol duonebs q3h prn (8) History of substance abuse Cocaine use: UDS - positive for Cocaine hold use of Beta Yonis (9) Hx Intracranial bleed, splenic infarct * Head CT (01/05/18): no evidence of acute intracranial injury/fractures; large area of encephalomalacia in right occipital lobe, most compatible with chronic infarct * Neurology, Dr. Hurt is consulted. Recommends getting repeat MRI of brain * MRI of brain ordered with and without contrast. * will give Ativan 1mg prior to MRI (10) Chronic pain * Continue home medications: Endocet 5/325 Q6 2 tabs prn pain, Dilaudid 0.5 mg IVP q6 prn pain, benadryl 25 mg IVP q6 prn (11) Morbid Obesity BMI: 40.7 (12) Prophylactic measure SCDs contraindicated due to b/l LE edema Heparin 5,000 units SC q12h Protonix 40mg PO daily Heart healthy diet - patient demands Regular diet. Refusing to eat. Patient will be given script for rolling walker. All managements and orders per Dr. Terrence Guevara Joaquim PGY1
[2018-01-12] MEDS: Digoxin 125 mcg (0.125 mg) Tab PO SCH (17:15)
[2018-01-13] MEDS: HYDROmorphone 0.5 mg/0.5 ml ISec IVP PRN ×4 (02:39→21:21)
[2018-01-13 06:53] LABS: BASO % 0.6 % (0.0-2.0); EOS # 0.3 K/uL (0.0-0.7); EOS % 4.5 % (0.0-4.0); HEMOGLOBIN 13.4 g/dL (12.0-18.0); LYMPH # 1.2 K/uL (1.0-4.3); LYMPH % 15.3 % (20.0-40.0); MEAN CELL VOLUME 82.9 fL (80.0-94.0); MEAN CORPUSCULAR HEMOGLOBIN 27.3 pg (27.0-31.0); MEAN CORPUSCULAR HGB CONC 32.9 g/dL (33.0-37.0); MEAN PLATELET VOLUME 7.9 fL (7.2-11.7); MONO # 1.3 K/uL (0.0-0.8); MONO % 16.3 % (0.0-10.0); NEUT # 4.9 K/uL (1.8-7.0); NEUT % 63.3 % (50.0-75.0); NRBC % 0.2 % (0.0-2.0); RBC 4.9 Mil/uL (4.40-5.90); RED CELL DISTRIBUTION WIDTH 17.3 % (11.5-14.5); WHITE BLOOD COUNT 7.7 K/uL (4.8-10.8)
[2018-01-13 07:03] LABS: ALB/GLOB RATIO 0.9 (1.0-2.1); ALBUMIN 3.7 g/dL (3.5-5.0); ALT/SGPT 37 U/L (21-72); AST/SGOT 36 U/L (17-59); BLOOD UREA NITROGEN 24 mg/dL (9-20); CALCIUM 9.1 mg/dl (8.6-10.4); GFR AFRICAN-AMERICAN > 60; GFR NON-AFRICAN AMERICAN > 60
--- NOTE | 2018-01-13 07:45 | CP.PCM.PN ---
Subjective - Date & Time of Evaluation Date of Evaluation: 01/13/18 Time of Evaluation: 06:50 - Subjective Subjective: PGY1 Medicine Note for Dr. Ocampo Patient seen and examined at bedside this morning. Patient complains of extreme pain and swelling in his right foot. He denies any chest pain, difficulty breathing or blurry vision. When asked about why he was unable to tolerate the MRI yesterday with the medication, he states "I was never brought down to MRI. I was in my room the whole day." He was told that we will attempt to get the MRI today and he requested some ear plugs in addition to medication for his anxiety. He has no other complaints at this time. Denies fevers, chills, nausea , vomiting, diarrhea, constipation or abdominal pain. Objective - Vital Signs/Intake and Output Vital Signs (last 24 hours): Temp Pulse Resp BP Pulse Ox 97.5 F L 54 L 20 103/65 95 01/12/18 23:10 01/13/18 02:38 01/12/18 23:10 01/13/18 02:38 01/12/18 23:10 Intake and Output: 01/13/18 01/13/18 06:59 18:59 Intake Total 400 Balance 400 - Medications Medications: Current Medications Acetaminophen (Tylenol 325mg Tab) 650 mg PO Q6 PRN PRN Reason: Pain, Mild (1-3) Albuterol/Ipratropium (Duoneb 3 Mg/0.5 Mg (3 Ml) Ud) 3 ml INH RQ4 PRN PRN Reason: Shortness of Breath Last Admin: 01/11/18 05:11 Dose: 3 ml Alprazolam (Xanax) 1 mg PO BID PRN PRN Reason: Anxiety Last Admin: 01/12/18 09:08 Dose: 1 mg Aspirin (Ecotrin) 325 mg PO DAILY [facility] Last Admin: 01/12/18 09:09 Dose: 325 mg Carvedilol (Coreg) 12.5 mg PO Q12 [facility] Last Admin: 01/12/18 22:35 Dose: 12.5 mg Cyclobenzaprine HCl (Flexeril) 10 mg PO DAILY [facility] Last Admin: 01/12/18 09:09 Dose: 10 mg Digoxin (Digoxin) 0.125 mg PO DAILY@1800 [facility] Last Admin: 01/12/18 17:15 Dose: 0.125 mg Diltiazem HCl (Cardizem) 30 mg PO QID [facility] Last Admin: 01/12/18 22:35 Dose: 30 mg Famotidine (Pepcid) 20 mg PO DAILY [facility] Last Admin: 01/12/18 09:09 Dose: 20 mg Furosemide (Lasix) 40 mg PO DAILY [facility] Last Admin: 01/12/18 09:09 Dose: 40 mg Gabapentin (Neurontin) 300 mg PO TID [facility] Last Admin: 01/12/18 17:15 Dose: 300 mg Hydromorphone HCl (Dilaudid) 0.5 mg IVP Q6H PRN PRN Reason: Pain, moderate (4-7) Last Admin: 01/13/18 02:39 Dose: 0.5 mg Montelukast Sodium (Singulair) 10 mg PO [facility] Last Admin: 01/12/18 22:35 Dose: 10 mg Ondansetron HCl (Zofran Inj) 4 mg IVP Q6H PRN PRN Reason: Nausea/Vomiting Last Admin: 01/12/18 01:18 Dose: 4 mg Pantoprazole Sodium (Protonix Ec Tab) 40 mg PO DAILY [facility] Last Admin: 01/12/18 09:10 Dose: 40 mg Rosuvastatin Calcium (Crestor) 5 mg PO [facility] Last Admin: 01/12/18 22:35 Dose: 5 mg - Labs Labs: 01/13/18 06:30 01/13/18 06:30 - Constitutional Appears: Non-toxic, No Acute Distress - Head Exam Head Exam: ATRAUMATIC, NORMOCEPHALIC - Eye Exam Eye Exam: EOMI, Normal appearance Pupil Exam: NORMAL ACCOMODATION - ENT Exam ENT Exam: Mucous Membranes Moist - Respiratory Exam Respiratory Exam: Clear to Ausculation Bilateral, NORMAL BREATHING PATTERN. absent: Accessory Muscle Use, Rales, Rhonchi, Wheezes, Respiratory Distress - Cardiovascular Exam Cardiovascular Exam: REGULAR RHYTHM, +S1 - GI/Abdominal Exam GI & Abdominal Exam: Soft, Normal Bowel Sounds. absent: Distended, Firm, Guarding, Rigid, Tenderness - Extremities Exam Extremities Exam: Calf Tenderness, Pedal Edema (3+ up to knee b/l) - Neurological Exam Neurological Exam: Alert, Awake, Oriented x3 - Psychiatric Exam Psychiatric exam: Normal Affect, Normal Mood - Skin Skin Exam: Dry, Warm Assessment and Plan - Assessment and Plan (Free Text) Plan: (1) Acute exacerbation of systolic CHF (congestive heart failure) On admission: BNP 3760, Troponin .05 Troponin negative X3 Chest xray : marked cardiomegaly, moderate interstitial prominence may reflect edema or infection ECHO (12/13/17): LV is severely dilated with global hypokinesis. LV systolic function is severely impaired. EF is ~25% Continue home medications: * Lasix 40mg PO daily * Aldactone 25mg PO daily * Fluid restriction, daily weight Maintenance called for Reclining chair - patient instructed to keep legs elevated As per previous admissions documentation, patient continually refuses ACID placement (2) Hypertension Stable * Lasix 40mg PO daily - discontinued * Lasix 60mg IV q12h * Metolazone 10 mg q12h - to be given a half hour prior to lasix * Aldactone 25mg PO daily (3) Episodes of Blurry Vision f/u Brain MRI w/ and w/o contrast - will medicate prior to exam (4) History of coronary artery disease Continue home medications: * Aspirin 81mg PO daily * Crestor 10mg PO daily (5) History of atrial fibrillation Continue home medications: * Digoxin 0.125mg PO daily * Continue to monitor with telemetry * Reconcile more home medications for A. fibrillation as needed As per previous admissions documentation, patient continually refuses anticoagulation (6) History of psychiatric disorder anxiety Continue home medication: Xanax 1mg PO Q6 prn (7) History of COPD Albuterol duonebs q3h prn (8) History of substance abuse Cocaine use: UDS - positive for Cocaine hold use of Beta Yonis (9) Hx Intracranial bleed, splenic infarct * Head CT (01/05/18): no evidence of acute intracranial injury/fractures; large area of encephalomalacia in right occipital lobe, most compatible with chronic infarct * Neurology, Dr. Hurt is consulted. Recommends getting repeat MRI of brain * MRI of brain ordered with and without contrast. * will give Ativan 1mg prior to MRI (10) Chronic pain * Continue home medications: Endocet 5/325 Q6 2 tabs prn pain, Dilaudid 0.5 mg IVP q6 prn pain, benadryl 25 mg IVP q6 prn (11) Morbid Obesity BMI: 40.7 (12) Prophylactic measure SCDs contraindicated due to b/l LE edema Heparin 5,000 units SC q12h Protonix 40mg PO daily Heart healthy diet - patient demands Regular diet. Refusing to eat. Patient will be given script for rolling walker. All managements and orders per Dr. Terrence Guevara Joaquim PGY1
[2018-01-13] MEDS: Pantoprazole 40 mg EC Tab PO SCH (10:03)
[2018-01-13] MEDS: Aspirin 325 mg EC Tablets PO SCH (10:04)
[2018-01-13] MEDS: Digoxin 125 mcg (0.125 mg) Tab PO SCH (17:26)
[2018-01-13] MEDS: metOLazone 5 MG TAB PO SCH (21:30)
[2018-01-14] MEDS: HYDROmorphone 0.5 mg/0.5 ml ISec IVP PRN ×3 (03:31→16:33)
[2018-01-14 06:28] LABS: BASO # 0.1 K/uL (0.0-0.2); BASO % 0.9 % (0.0-2.0); EOS # 0.4 K/uL (0.0-0.7); EOS % 4.4 % (0.0-4.0); HEMOGLOBIN 13.6 g/dL (12.0-18.0); LYMPH # 1.2 K/uL (1.0-4.3); LYMPH % 14.2 % (20.0-40.0); MEAN CELL VOLUME 82.6 fL (80.0-94.0); MEAN CORPUSCULAR HEMOGLOBIN 27.1 pg (27.0-31.0); MEAN CORPUSCULAR HGB CONC 32.9 g/dL (33.0-37.0); MEAN PLATELET VOLUME 7.8 fL (7.2-11.7); MONO # 1.6 K/uL (0.0-0.8); NEUT # 5.5 K/uL (1.8-7.0); NEUT % 62.5 % (50.0-75.0); RED CELL DISTRIBUTION WIDTH 16.7 % (11.5-14.5); WHITE BLOOD COUNT 8.8 K/uL (4.8-10.8)
[2018-01-14 06:44] LABS: ALB/GLOB RATIO 0.9 (1.0-2.1); ALBUMIN 3.9 g/dL (3.5-5.0); ALT/SGPT 35 U/L (21-72); AST/SGOT 35 U/L (17-59); BLOOD UREA NITROGEN 21 mg/dL (9-20); CALCIUM 8.2 mg/dl (8.6-10.4); GFR AFRICAN-AMERICAN > 60; GFR NON-AFRICAN AMERICAN > 60
[2018-01-14] MEDS: Aspirin 325 mg EC Tablets PO SCH (09:49)
[2018-01-14] MEDS: Pantoprazole 40 mg EC Tab PO SCH (09:49)
[2018-01-14] MEDS: metOLazone 5 MG TAB PO SCH ×2 (10:00→22:16)
--- NOTE | 2018-01-14 14:43 | CP.PCM.PN ---
Subjective - Date & Time of Evaluation Date of Evaluation: 01/14/18 Time of Evaluation: 09:15 - Subjective Subjective: PGY1 Medicine Note for Dr. Ocampo Patient seen and examined at bedside this morning. Patient states that his right leg is causing him extreme pain. He reports that the increase in diuretics has helped and that he feels his legs are not as swollen as they were yesterday. He states that he feels ok other than the pains in his legs, but states the pain makes it very difficult for him to ambulate. Denies any fevers, nausea, diarrhea, constipation, chest pain, abdominal pain, or SOB. Objective - Vital Signs/Intake and Output Vital Signs (last 24 hours): Temp Pulse Resp BP Pulse Ox 98.8 F 56 L 20 126/70 94 L 01/14/18 08:50 01/14/18 08:50 01/14/18 08:50 01/14/18 09:49 01/13/18 23:10 Intake and Output: 01/14/18 01/14/18 06:59 18:59 Intake Total 540 Output Total 900 Balance -360 - Medications Medications: Current Medications Acetaminophen (Tylenol 325mg Tab) 650 mg PO Q6 PRN PRN Reason: Pain, Mild (1-3) Last Admin: 01/14/18 01:53 Dose: 650 mg Albuterol/Ipratropium (Duoneb 3 Mg/0.5 Mg (3 Ml) Ud) 3 ml INH RQ4 PRN PRN Reason: Shortness of Breath Last Admin: 01/11/18 05:11 Dose: 3 ml Alprazolam (Xanax) 1 mg PO BID PRN PRN Reason: Anxiety Last Admin: 01/14/18 09:49 Dose: 1 mg Aspirin (Ecotrin) 325 mg PO DAILY [facility] Last Admin: 01/14/18 09:49 Dose: 325 mg Carvedilol (Coreg) 12.5 mg PO Q12 [facility] Last Admin: 01/14/18 09:49 Dose: 12.5 mg Cyclobenzaprine HCl (Flexeril) 10 mg PO DAILY [facility] Last Admin: 01/14/18 09:49 Dose: 10 mg Digoxin (Digoxin) 0.125 mg PO DAILY@1800 [facility] Last Admin: 01/13/18 17:26 Dose: 0.125 mg Diltiazem HCl (Cardizem) 30 mg PO QID [facility] Last Admin: 01/13/18 22:54 Dose: 30 mg Famotidine (Pepcid) 20 mg PO DAILY [facility] Last Admin: 01/14/18 09:49 Dose: 20 mg Furosemide (Lasix) 40 mg PO DAILY [facility] Last Admin: 01/13/18 10:03 Dose: 40 mg Furosemide (Lasix) 60 mg IVP Q12H [facility] Last Admin: 01/14/18 09:48 Dose: 60 mg Gabapentin (Neurontin) 300 mg PO TID [facility] Last Admin: 01/14/18 09:49 Dose: 300 mg Hydromorphone HCl (Dilaudid) 0.5 mg IVP Q6H PRN PRN Reason: Pain, moderate (4-7) Last Admin: 01/14/18 09:47 Dose: 0.5 mg Metolazone (Zaroxolyn) 10 mg PO Q12H [facility] Last Admin: 01/13/18 21:30 Dose: 10 mg Montelukast Sodium (Singulair) 10 mg PO [facility] Last Admin: 01/13/18 21:21 Dose: 10 mg Ondansetron HCl (Zofran Inj) 4 mg IVP Q6H PRN PRN Reason: Nausea/Vomiting Last Admin: 01/14/18 06:35 Dose: 4 mg Pantoprazole Sodium (Protonix Ec Tab) 40 mg PO DAILY [facility] Last Admin: 01/14/18 09:49 Dose: 40 mg Rosuvastatin Calcium (Crestor) 5 mg PO [facility] Last Admin: 01/13/18 21:21 Dose: 5 mg - Labs Labs: 01/14/18 06:16 01/14/18 06:16 - Constitutional Appears: Non-toxic, No Acute Distress - Head Exam Head Exam: ATRAUMATIC, NORMOCEPHALIC - Eye Exam Eye Exam: EOMI, Normal appearance Pupil Exam: NORMAL ACCOMODATION - ENT Exam ENT Exam: Mucous Membranes Moist - Respiratory Exam Respiratory Exam: Clear to Ausculation Bilateral, NORMAL BREATHING PATTERN. absent: Accessory Muscle Use, Rales, Rhonchi, Wheezes, Respiratory Distress - Cardiovascular Exam Cardiovascular Exam: REGULAR RHYTHM, +S1 - GI/Abdominal Exam GI & Abdominal Exam: Soft, Normal Bowel Sounds. absent: Distended, Firm, Guarding, Rigid, Tenderness - Extremities Exam Extremities Exam: absent: Calf Tenderness, Pedal Edema - Neurological Exam Neurological Exam: Alert, Awake, Oriented x3 - Psychiatric Exam Psychiatric exam: Normal Affect, Normal Mood - Skin Skin Exam: Dry, Warm Assessment and Plan - Assessment and Plan (Free Text) Plan: (1) Acute exacerbation of systolic CHF (congestive heart failure) On admission: BNP 3760, Troponin .05 Troponin negative X3 Chest xray : marked cardiomegaly, moderate interstitial prominence may reflect edema or infection ECHO (12/13/17): LV is severely dilated with global hypokinesis. LV systolic function is severely impaired. EF is ~25% Continue home medications: * Lasix 40mg PO daily * Aldactone 25mg PO daily * Fluid restriction, daily weight Maintenance called for Reclining chair - patient instructed to keep legs elevated As per previous admissions documentation, patient continually refuses ACID placement (2) Hypertension Stable * Lasix 60mg IV q12h - increased to 80mg IV q12h * Metolazone 10 mg q12h - to be given a half hour prior to lasix * Aldactone 25mg PO daily (3) Episodes of Blurry Vision f/u Brain MRI w/ and w/o contrast - will medicate prior to exam (4) History of coronary artery disease Continue home medications: * Aspirin 81mg PO daily * Crestor 10mg PO daily (5) History of atrial fibrillation Continue home medications: * Digoxin 0.125mg PO daily * Continue to monitor with telemetry * Reconcile more home medications for A. fibrillation as needed As per previous admissions documentation, patient continually refuses anticoagulation (6) History of psychiatric disorder anxiety Continue home medication: Xanax 1mg PO Q6 prn (7) History of COPD Albuterol duonebs q3h prn (8) History of substance abuse Cocaine use: UDS - positive for Cocaine hold use of Beta Yonis (9) Hx Intracranial bleed, splenic infarct * Head CT (01/05/18): no evidence of acute intracranial injury/fractures; large area of encephalomalacia in right occipital lobe, most compatible with chronic infarct * Neurology, Dr. Hurt is consulted. Recommends getting repeat MRI of brain * MRI of brain ordered with and without contrast. * will give Ativan 1mg prior to MRI (10) Chronic pain * Continue home medications: Endocet 5/325 Q6 2 tabs prn pain, Dilaudid 0.5 mg IVP q6 prn pain, benadryl 25 mg IVP q6 prn (11) Morbid Obesity BMI: 40.7 (12) Prophylactic measure SCDs contraindicated due to b/l LE edema Heparin 5,000 units SC q12h Protonix 40mg PO daily Heart healthy diet - patient demands Regular diet. Refusing to eat. Patient will be given script for rolling walker. All managements and orders per Dr. Terrence Guevara Joaquim PGY1
[2018-01-14] MEDS: Digoxin 125 mcg (0.125 mg) Tab PO SCH (18:35)
[2018-01-15 08:08] LABS: BASO # 0.1 K/uL (0.0-0.2); BASO % 0.9 % (0.0-2.0); EOS # 0.2 K/uL (0.0-0.7); EOS % 2.2 % (0.0-4.0); HEMOGLOBIN 15.3 g/dL (12.0-18.0); LYMPH # 1.2 K/uL (1.0-4.3); LYMPH % 11.5 % (20.0-40.0); MEAN CELL VOLUME 81.3 fL (80.0-94.0); MEAN CORPUSCULAR HEMOGLOBIN 27.3 pg (27.0-31.0); MEAN CORPUSCULAR HGB CONC 33.6 g/dL (33.0-37.0); MEAN PLATELET VOLUME 8.1 fL (7.2-11.7); MONO # 1.6 K/uL (0.0-0.8); MONO % 16.2 % (0.0-10.0); NEUT % 69.2 % (50.0-75.0); NRBC % 0.1 % (0.0-2.0); RBC 5.61 Mil/uL (4.40-5.90); RED CELL DISTRIBUTION WIDTH 16.9 % (11.5-14.5); WHITE BLOOD COUNT 10.1 K/uL (4.8-10.8)
[2018-01-15 08:21] LABS: ALB/GLOB RATIO 0.8 (1.0-2.1); ALBUMIN 4.1 g/dL (3.5-5.0); ALT/SGPT 40 U/L (21-72); AST/SGOT 44 U/L (17-59); BLOOD UREA NITROGEN 24 mg/dL (9-20); GFR AFRICAN-AMERICAN > 60; GFR NON-AFRICAN AMERICAN 59
[2018-01-15] MEDS: metOLazone 5 MG TAB PO SCH ×2 (10:00→23:00)
[2018-01-15] MEDS: Aspirin 325 mg EC Tablets PO SCH (10:36)
[2018-01-15] MEDS: Pantoprazole 40 mg EC Tab PO SCH (10:36)
[2018-01-15] MEDS: HYDROmorphone 0.5 mg/0.5 ml ISec IVP PRN ×2 (10:53→18:22)
[2018-01-15] MEDS ORDERED: Potassium Chloride 20 mEq ER Tab PO ONE (14:45)
[2018-01-15] MEDS: Digoxin 125 mcg (0.125 mg) Tab PO SCH (18:22)
--- NOTE | 2018-01-15 21:25 | CP.PCM.PN ---
Subjective - Date & Time of Evaluation Date of Evaluation: 01/15/18 Time of Evaluation: 09:25 - Subjective Subjective: PGY1 Medicine Note for Dr. Ocampo Patient seen this morning. Patient was very agitated and aggressive this morning. He was cursing at the nurses and resident. "I don't want to talk to anyone else except Dr. Ocampo." Patient refused to answer question or be examined. Objective - Vital Signs/Intake and Output Vital Signs (last 24 hours): Temp Pulse Resp BP Pulse Ox 98.2 F 65 20 114/65 97 01/15/18 17:00 01/15/18 17:00 01/15/18 17:00 01/15/18 17:00 01/15/18 17:00 Intake and Output: 01/15/18 01/16/18 18:59 06:59 Intake Total 550 Balance 550 - Medications Medications: Current Medications Acetaminophen (Tylenol 325mg Tab) 650 mg PO Q6 PRN PRN Reason: Pain, Mild (1-3) Last Admin: 01/14/18 01:53 Dose: 650 mg Albuterol/Ipratropium (Duoneb 3 Mg/0.5 Mg (3 Ml) Ud) 3 ml INH RQ4 PRN PRN Reason: Shortness of Breath Last Admin: 01/11/18 05:11 Dose: 3 ml Alprazolam (Xanax) 1 mg PO BID PRN PRN Reason: Anxiety Last Admin: 01/15/18 10:36 Dose: 1 mg Aspirin (Ecotrin) 325 mg PO DAILY [facility] Last Admin: 01/15/18 10:36 Dose: 325 mg Carvedilol (Coreg) 12.5 mg PO Q12 [facility] Last Admin: 01/15/18 10:36 Dose: 12.5 mg Cyclobenzaprine HCl (Flexeril) 10 mg PO DAILY [facility] Last Admin: 01/15/18 10:36 Dose: 10 mg Digoxin (Digoxin) 0.125 mg PO DAILY@1800 [facility] Last Admin: 01/15/18 18:22 Dose: 0.125 mg Diltiazem HCl (Cardizem) 30 mg PO QID [facility] Last Admin: 01/15/18 18:23 Dose: 30 mg Famotidine (Pepcid) 20 mg PO DAILY [facility] Last Admin: 01/15/18 10:36 Dose: 20 mg Furosemide (Lasix) 40 mg PO DAILY [facility] Last Admin: 01/13/18 10:03 Dose: 40 mg Furosemide (Lasix) 80 mg IVP Q12 [facility] Last Admin: 01/15/18 10:00 Dose: 80 mg Gabapentin (Neurontin) 300 mg PO TID [facility] Last Admin: 01/15/18 18:23 Dose: 300 mg Hydromorphone HCl (Dilaudid) 0.5 mg IVP Q6H PRN PRN Reason: Pain, moderate (4-7) Last Admin: 01/15/18 18:22 Dose: 0.5 mg Metolazone (Zaroxolyn) 10 mg PO Q12H [facility] Last Admin: 01/15/18 10:00 Dose: 10 mg Montelukast Sodium (Singulair) 10 mg PO HS [facility] Last Admin: 01/14/18 22:15 Dose: 10 mg Ondansetron HCl (Zofran Inj) 4 mg IVP Q6H PRN PRN Reason: Nausea/Vomiting Last Admin: 01/14/18 06:35 Dose: 4 mg Pantoprazole Sodium (Protonix Ec Tab) 40 mg PO DAILY [facility] Last Admin: 01/15/18 10:36 Dose: 40 mg Rosuvastatin Calcium (Crestor) 5 mg PO HS [facility] Last Admin: 01/14/18 22:15 Dose: 5 mg - Labs Labs: 01/15/18 07:50 01/15/18 07:50 - Constitutional Appears: Agitated (Patient refused to be examined.) Assessment and Plan - Assessment and Plan (Free Text) Plan: (1) Acute exacerbation of systolic CHF (congestive heart failure) On admission: BNP 3760, Troponin .05 Troponin negative X3 Chest xray : marked cardiomegaly, moderate interstitial prominence may reflect edema or infection ECHO (12/13/17): LV is severely dilated with global hypokinesis. LV systolic function is severely impaired. EF is ~25% Continue home medications: * Lasix 40mg PO daily * Aldactone 25mg PO daily * Fluid restriction, daily weight Maintenance called for Reclining chair - patient instructed to keep legs elevated As per previous admissions documentation, patient continually refuses ACID placement (2) Hypertension Stable * Lasix 60mg IV q12h - increased to 80mg IV q12h * Metolazone 10 mg q12h - to be given a half hour prior to lasix * Aldactone 25mg PO daily (3) Episodes of Blurry Vision f/u Brain MRI w/ and w/o contrast - will medicate prior to exam (4) History of coronary artery disease Continue home medications: * Aspirin 81mg PO daily * Crestor 10mg PO daily (5) History of atrial fibrillation Continue home medications: * Digoxin 0.125mg PO daily * Continue to monitor with telemetry * Reconcile more home medications for A. fibrillation as needed As per previous admissions documentation, patient continually refuses anticoagulation (6) History of psychiatric disorder anxiety Continue home medication: Xanax 1mg PO Q6 prn (7) History of COPD Albuterol duonebs q3h prn (8) History of substance abuse Cocaine use: UDS - positive for Cocaine hold use of Beta Yonis (9) Hx Intracranial bleed, splenic infarct * Head CT (01/05/18): no evidence of acute intracranial injury/fractures; large area of encephalomalacia in right occipital lobe, most compatible with chronic infarct * Neurology, Dr. Hurt is consulted. Recommends getting repeat MRI of brain * MRI of brain ordered with and without contrast. * will give Ativan 1mg prior to MRI (10) Chronic pain * Continue home medications: Endocet 5/325 Q6 2 tabs prn pain, Dilaudid 0.5 mg IVP q6 prn pain, benadryl 25 mg IVP q6 prn (11) Morbid Obesity BMI: 40.7 (12) Prophylactic measure SCDs contraindicated due to b/l LE edema Heparin 5,000 units SC q12h Protonix 40mg PO daily Heart healthy diet - patient demands Regular diet. Refusing to eat. Patient will be given script for rolling walker. Dispo: Attempt to increase diuresis of patient. Improved edema of lower extremities then discharge home. Case discussed with Dr. Terrence Guevara Joaquim PGY1
[2018-01-16] MEDS: HYDROmorphone 0.5 mg/0.5 ml ISec IVP PRN ×4 (00:26→19:13)
[2018-01-16 07:32] LABS: BASO # 0.1 K/uL (0.0-0.2); BASO % 0.8 % (0.0-2.0); EOS # 0.2 K/uL (0.0-0.7); EOS % 2.3 % (0.0-4.0); HEMOGLOBIN 15.8 g/dL (12.0-18.0); LYMPH # 1.4 K/uL (1.0-4.3); LYMPH % 17.4 % (20.0-40.0); MEAN CELL VOLUME 81.3 fL (80.0-94.0); MEAN CORPUSCULAR HEMOGLOBIN 27.5 pg (27.0-31.0); MEAN CORPUSCULAR HGB CONC 33.9 g/dL (33.0-37.0); MEAN PLATELET VOLUME 8.1 fL (7.2-11.7); MONO # 1.5 K/uL (0.0-0.8); MONO % 18.5 % (0.0-10.0); NEUT # 5.1 K/uL (1.8-7.0); NRBC % 0.1 % (0.0-2.0); RBC 5.73 Mil/uL (4.40-5.90); RED CELL DISTRIBUTION WIDTH 17.1 % (11.5-14.5); WHITE BLOOD COUNT 8.3 K/uL (4.8-10.8)
[2018-01-16 07:56] LABS: ALB/GLOB RATIO 0.8 (1.0-2.1); ALBUMIN 4.1 g/dL (3.5-5.0); ALT/SGPT 33 U/L (21-72); AST/SGOT 45 U/L (17-59); BLOOD UREA NITROGEN 36 mg/dL (9-20); CALCIUM 9.4 mg/dl (8.6-10.4); GFR AFRICAN-AMERICAN > 60; GFR NON-AFRICAN AMERICAN 54
[2018-01-16] MEDS ORDERED: Potassium Chloride 20 mEq ER Tab PO ONE (09:04)
[2018-01-16] MEDS: Pantoprazole 40 mg EC Tab PO SCH (09:42)
[2018-01-16] MEDS: Aspirin 325 mg EC Tablets PO SCH (09:42)
[2018-01-16] MEDS ORDERED: Gadodiamide 287 mg/ml 20 ml IV ONE (10:30)
[2018-01-16] MEDS: metOLazone 5 MG TAB PO SCH ×2 (11:25→12:21)
--- NOTE | 2018-01-16 14:57 | CP.PCM.PN ---
Subjective - Date & Time of Evaluation Date of Evaluation: 01/16/18 Time of Evaluation: 07:00 - Subjective Subjective: Patient seen and examined at bedside. Patient sitting in bedside chair yelling at transport team when I arrived. Patient was supposed to be going for MRI but was angry and did not want to go, however I explained the need and he agreed under the condition that he get something to keep him from being anxious in the MRI machine. Patient was being aggressive and talking very fast making him difficult to understand. Per nursing, patient was yelling inappropriate, foul things to the nurses and wanting to leave AMA, however, he refused to sign AMA form when I approached him. Objective - Vital Signs/Intake and Output Vital Signs (last 24 hours): Temp Pulse Resp BP Pulse Ox 98.4 F 98 H 20 145/90 96 01/16/18 08:16 01/16/18 08:16 01/16/18 08:16 01/16/18 11:26 01/16/18 08:16 Intake and Output: 01/16/18 01/16/18 06:59 18:59 Intake Total 250 Output Total 700 Balance -450 - Medications Medications: Current Medications Acetaminophen (Tylenol 325mg Tab) 650 mg PO Q6 PRN PRN Reason: Pain, Mild (1-3) Last Admin: 01/14/18 01:53 Dose: 650 mg Albuterol/Ipratropium (Duoneb 3 Mg/0.5 Mg (3 Ml) Ud) 3 ml INH RQ4 PRN PRN Reason: Shortness of Breath Last Admin: 01/11/18 05:11 Dose: 3 ml Alprazolam (Xanax) 1 mg PO BID PRN PRN Reason: Anxiety Last Admin: 01/15/18 10:36 Dose: 1 mg Aspirin (Ecotrin) 325 mg PO DAILY [facility] Last Admin: 01/16/18 09:42 Dose: 325 mg Carvedilol (Coreg) 12.5 mg PO Q12 [facility] Last Admin: 01/16/18 11:25 Dose: 12.5 mg Cyclobenzaprine HCl (Flexeril) 10 mg PO DAILY [facility] Last Admin: 01/16/18 09:42 Dose: 10 mg Digoxin (Digoxin) 0.125 mg PO DAILY@1800 [facility] Last Admin: 01/15/18 18:22 Dose: 0.125 mg Diltiazem HCl (Cardizem) 30 mg PO QID [facility] Last Admin: 01/16/18 14:04 Dose: 30 mg Famotidine (Pepcid) 20 mg PO DAILY [facility] Last Admin: 01/16/18 09:42 Dose: 20 mg Furosemide (Lasix) 40 mg PO DAILY [facility] Last Admin: 01/13/18 10:03 Dose: 40 mg Furosemide (Lasix) 80 mg IVP Q12 [facility] Last Admin: 01/16/18 11:26 Dose: 80 mg Gabapentin (Neurontin) 300 mg PO TID [facility] Last Admin: 01/16/18 14:04 Dose: 300 mg Hydromorphone HCl (Dilaudid) 0.5 mg IVP Q6H PRN PRN Reason: Pain, moderate (4-7) Last Admin: 01/16/18 12:55 Dose: 0.5 mg Metoclopramide HCl (Reglan) 10 mg PO Q12H [facility] Last Admin: 01/16/18 12:54 Dose: Not Given Metolazone (Zaroxolyn) 10 mg PO Q12H [facility] Last Admin: 01/16/18 12:21 Dose: Not Given Montelukast Sodium (Singulair) 10 mg PO [facility] Last Admin: 01/15/18 22:59 Dose: 10 mg Ondansetron HCl (Zofran Inj) 4 mg IVP Q6H PRN PRN Reason: Nausea/Vomiting Last Admin: 01/14/18 06:35 Dose: 4 mg Pantoprazole Sodium (Protonix Ec Tab) 40 mg PO DAILY [facility] Last Admin: 01/16/18 09:42 Dose: 40 mg Rosuvastatin Calcium (Crestor) 5 mg PO [facility] Last Admin: 01/15/18 22:57 Dose: 5 mg - Labs Labs: 01/16/18 07:16 01/16/18 07:16 - Constitutional Appears: Agitated - Head Exam Head Exam: ATRAUMATIC, NORMAL INSPECTION, NORMOCEPHALIC - Eye Exam Eye Exam: EOMI, Normal appearance - ENT Exam ENT Exam: Mucous Membranes Moist - Extremities Exam Extremities Exam: Pedal Edema - Neurological Exam Neurological Exam: Alert, Awake, Oriented x3 - Psychiatric Exam Additional comments: acting aggressively and yelling at me and the nursing staff - Skin Skin Exam: Dry, Intact, Normal Color, Warm Assessment and Plan - Assessment and Plan (Free Text) Plan: (1) Acute exacerbation of systolic CHF (congestive heart failure) On admission: BNP 3760, Troponin .05 Troponin negative X3 Chest xray : marked cardiomegaly, moderate interstitial prominence may reflect edema or infection ECHO (12/13/17): LV is severely dilated with global hypokinesis. LV systolic function is severely impaired. EF is ~25% Continue home medications: * Lasix 40mg PO daily * Aldactone 25mg PO daily * Fluid restriction, daily weight Maintenance called for Reclining chair - patient instructed to keep legs elevated RLE continues to stay edmatous - will order US of the RLE given patient's history of DVT As per previous admissions documentation, patient continually refuses ACID placement (2) Hypertension Stable * Lasix 60mg IV q12h - increased to 80mg IV q12h * Metolazone 10 mg q12h - to be given a half hour prior to lasix * Aldactone 25mg PO daily (3) Episodes of Blurry Vision Brain MRI w/ and w/o contrast pending final read (4) History of coronary artery disease Continue home medications: * Aspirin 81mg PO daily * Crestor 10mg PO daily (5) History of atrial fibrillation Continue home medications: * Digoxin 0.125mg PO daily * Continue to monitor with telemetry * Reconcile more home medications for A. fibrillation as needed As per previous admissions documentation, patient continually refuses anticoagulation (6) History of psychiatric disorder anxiety Continue home medication: Xanax 1mg PO Q6 prn (7) History of COPD Albuterol duonebs q3h prn (8) History of substance abuse Cocaine use: UDS - positive for Cocaine hold use of Beta Yonis (9) Hx Intracranial bleed, splenic infarct * Head CT (01/05/18): no evidence of acute intracranial injury/fractures; large area of encephalomalacia in right occipital lobe, most compatible with chronic infarct * Neurology, Dr. Hurt is consulted. Recommends getting repeat MRI of brain * MRI of brain ordered with and without contrast. * will give Ativan 1mg prior to MRI (10) Chronic pain * Continue home medications: Endocet 5/325 Q6 2 tabs prn pain, Dilaudid 0.5 mg IVP q6 prn pain, benadryl 25 mg IVP q6 prn (11) Morbid Obesity BMI: 40.7 (12) Prophylactic measure SCDs contraindicated due to b/l LE edema Heparin 5,000 units SC q12h Protonix 40mg PO daily Heart healthy diet - patient demands Regular diet. Refusing to eat. Patient will be given script for rolling walker.
--- NOTE | 2018-01-16 17:06 | MRI ---
PROCEDURE: MRI BRAIN WITH AND WITHOUT CONTRAST HISTORY: hx of occipital infarct; c/o blurry vision COMPARISON: Comparison is made with the previous study dated 12/11/2017 TECHNIQUE: Multiplanar, multisequence MR images of the brain were obtained with and without intravenous contrast enhancement. FINDINGS: HEMORRHAGE: Foci of susceptibility effect are again noted at the right occipital lobe consistent with the patient's known prior hemorrhagic infarction. Otherwise no evidence of new intracranial hemorrhage. DWI: No evidence of new diffusion restriction in the brain. BRAIN PARENCHYMA: Encephalomalacia and gliosis at the right occipital lobe extending to the medial aspect of the right temporal lobe consistent with the patient's recent hemorrhagic infarction at the right posterior cerebral artery territory. Focal encephalomalacia in noted at the left occipital lobe may represent small old infarction. Periventricular hyperintense FLAIR signal seen likely represent chronic microvascular ischemic disease. The differential consideration includes demyelination disease migraine or sequela of prior infection or inflammatory process. ENHANCEMENT: Patchy enhancement at the right occipital lobe likely related to recent infarction/ hemorrhagic infarction. VENTRICLES: Unremarkable. No hydrocephalus. CRANIUM: Unremarkable. ORBITS: Grossly unremarkable. PARANASAL SINUSES/MASTOIDS: Clear VASCULAR SYSTEM: Skull base flow voids intact. OTHER FINDINGS: None . IMPRESSION: No evidence of new foci of diffusion restriction in the brain. Re- demonstration of abnormal signal and enhancement at the right occipital lobe and medial inferior aspect of the right temporal lobe consistent with the patient's recent hemorrhagic infarction. Foci of hyperintense FLAIR and T2 signal seen in the periventricular region as described above. Small focal encephalomalacia at the left occipital lobe may represent old infarction.
[2018-01-16] MEDS: Digoxin 125 mcg (0.125 mg) Tab PO SCH (17:41)
[2018-01-17] MEDS: metOLazone 5 MG TAB PO SCH ×2 (01:19→11:32)
[2018-01-17] MEDS: HYDROmorphone 0.5 mg/0.5 ml ISec IVP PRN ×4 (02:01→20:14)
[2018-01-17 08:23] LABS: BASO % 0.5 % (0.0-2.0); EOS # 0.3 K/uL (0.0-0.7); EOS % 3.4 % (0.0-4.0); HEMOGLOBIN 14.8 g/dL (12.0-18.0); LYMPH # 1.3 K/uL (1.0-4.3); MEAN CELL VOLUME 82.2 fL (80.0-94.0); MEAN CORPUSCULAR HEMOGLOBIN 27.3 pg (27.0-31.0); MEAN CORPUSCULAR HGB CONC 33.3 g/dL (33.0-37.0); MEAN PLATELET VOLUME 8.4 fL (7.2-11.7); MONO # 1.8 K/uL (0.0-0.8); MONO % 17.2 % (0.0-10.0); NEUT # 6.7 K/uL (1.8-7.0); NEUT % 65.9 % (50.0-75.0); NRBC % 0.1 % (0.0-2.0); RBC 5.42 Mil/uL (4.40-5.90); RED CELL DISTRIBUTION WIDTH 16.9 % (11.5-14.5); WHITE BLOOD COUNT 10.2 K/uL (4.8-10.8)
[2018-01-17 09:02] LABS: ALB/GLOB RATIO 0.8 (1.0-2.1); ALBUMIN 3.6 g/dL (3.5-5.0); ALT/SGPT 29 U/L (21-72); AST/SGOT 44 U/L (17-59); BLOOD UREA NITROGEN 37 mg/dL (9-20); GFR AFRICAN-AMERICAN > 60; GFR NON-AFRICAN AMERICAN > 60
[2018-01-17] MEDS ORDERED: Potassium Chloride 20 mEq ER Tab PO ONE (09:04)
[2018-01-17] MEDS ORDERED: [UNRECOGNIZED DRUG - OTHER] IV SCH (09:15)
[2018-01-17] MEDS ORDERED: DEXTROSE IV SCH (09:15)
[2018-01-17] MEDS ORDERED: POTASSIUM CHLORIDE IV SCH (09:15)
[2018-01-17] MEDS: Pantoprazole 40 mg EC Tab PO SCH (09:59)
[2018-01-17] MEDS: Aspirin 325 mg EC Tablets PO SCH (10:00)
--- NOTE | 2018-01-17 12:01 | CP.PCM.PN ---
Subjective - Date & Time of Evaluation Date of Evaluation: 01/17/18 Time of Evaluation: 07:30 - Subjective Subjective: Patient seen and examined at bedside. Patient had code nomi called this morning. When I arrived after, he was demanding dilaudid, benadryl, and nicotine patch. He is still complaining of blurry vision. He denies chest pain, SOB, abdominal pain, n/v/d/c. Objective - Vital Signs/Intake and Output Vital Signs (last 24 hours): Temp Pulse Resp BP Pulse Ox 97.8 F 87 20 144/78 96 01/17/18 08:00 01/17/18 08:00 01/17/18 08:00 01/17/18 10:02 01/17/18 08:00 Intake and Output: 01/17/18 01/17/18 06:59 18:59 Output Total 1100 Balance -1100 - Medications Medications: Current Medications Acetaminophen (Tylenol 325mg Tab) 650 mg PO Q6 PRN PRN Reason: Pain, Mild (1-3) Last Admin: 01/16/18 23:55 Dose: 650 mg Albuterol/Ipratropium (Duoneb 3 Mg/0.5 Mg (3 Ml) Ud) 3 ml INH RQ4 PRN PRN Reason: Shortness of Breath Last Admin: 01/11/18 05:11 Dose: 3 ml Alprazolam (Xanax) 1 mg PO BID PRN PRN Reason: Anxiety Last Admin: 01/15/18 10:36 Dose: 1 mg Aspirin (Ecotrin) 325 mg PO DAILY [facility] Last Admin: 01/17/18 10:00 Dose: 325 mg Carvedilol (Coreg) 12.5 mg PO Q12 [facility] Last Admin: 01/17/18 09:59 Dose: 12.5 mg Cyclobenzaprine HCl (Flexeril) 10 mg PO DAILY [facility] Last Admin: 01/17/18 10:01 Dose: 10 mg Digoxin (Digoxin) 0.125 mg PO DAILY@1800 [facility] Last Admin: 01/16/18 17:41 Dose: 0.125 mg Diltiazem HCl (Cardizem) 30 mg PO QID [facility] Last Admin: 01/17/18 10:04 Dose: 30 mg Famotidine (Pepcid) 20 mg PO DAILY [facility] Last Admin: 01/17/18 10:01 Dose: 20 mg Furosemide (Lasix) 40 mg PO DAILY [facility] Last Admin: 01/13/18 10:03 Dose: 40 mg Furosemide (Lasix) 80 mg IVP Q12 [facility] Last Admin: 01/17/18 10:02 Dose: 80 mg Gabapentin (Neurontin) 300 mg PO TID [facility] Last Admin: 01/17/18 10:01 Dose: 300 mg Hydromorphone HCl (Dilaudid) 0.5 mg IVP Q6H PRN PRN Reason: Pain, moderate (4-7) Last Admin: 01/17/18 08:16 Dose: 0.5 mg Potassium Chloride 80 meq/ (Dextrose/Sodium Chloride) 1,040 mls @ 40 mls/hr IV .Q24H [facility] Last Admin: 01/17/18 11:30 Dose: 40 mls/hr Metoclopramide HCl (Reglan) 10 mg PO Q12H [facility] Last Admin: 01/17/18 11:37 Dose: 10 mg Metolazone (Zaroxolyn) 10 mg PO Q12H [facility] Last Admin: 01/17/18 11:32 Dose: 10 mg Montelukast Sodium (Singulair) 10 mg PO [facility] Last Admin: 01/16/18 21:27 Dose: 10 mg Ondansetron HCl (Zofran Inj) 4 mg IVP Q6H PRN PRN Reason: Nausea/Vomiting Last Admin: 01/14/18 06:35 Dose: 4 mg Pantoprazole Sodium (Protonix Ec Tab) 40 mg PO DAILY [facility] Last Admin: 01/17/18 09:59 Dose: 40 mg Rosuvastatin Calcium (Crestor) 5 mg PO [facility] Last Admin: 01/16/18 21:27 Dose: 5 mg - Labs Labs: 01/17/18 08:16 01/17/18 08:16 - Constitutional Appears: Non-toxic, No Acute Distress - Head Exam Head Exam: NORMAL INSPECTION - Eye Exam Eye Exam: EOMI, PERRL - ENT Exam ENT Exam: Mucous Membranes Moist - Respiratory Exam Respiratory Exam: Clear to Ausculation Bilateral, NORMAL BREATHING PATTERN - Cardiovascular Exam Cardiovascular Exam: RRR, +S1, +S2 - GI/Abdominal Exam GI & Abdominal Exam: Soft, Normal Bowel Sounds. absent: Tenderness - Extremities Exam Extremities Exam: Pedal Edema, Tenderness - Neurological Exam Neurological Exam: Alert, Awake, Oriented x3 - Psychiatric Exam Psychiatric exam: Agitated - Skin Skin Exam: Dry, Warm Assessment and Plan - Assessment and Plan (Free Text) Plan: (1) Acute exacerbation of systolic CHF (congestive heart failure) On admission: BNP 3760, Troponin .05 Troponin negative X3 Chest xray : marked cardiomegaly, moderate interstitial prominence may reflect edema or infection ECHO (12/13/17): LV is severely dilated with global hypokinesis. LV systolic function is severely impaired. EF is ~25% Continue home medications: * Lasix 40mg PO daily * Aldactone 25mg PO daily * Fluid restriction, daily weight Maintenance called for Reclining chair - patient instructed to keep legs elevated RLE continues to stay edematous - awaiting US of the RLE given patient's history of DVT Silvadene ordered for LE wounds As per previous admissions documentation, patient continually refuses ACID placement (2) Hypertension Stable * Lasix 60mg IV q12h - increased to 80mg IV q12h * Metolazone 10 mg q12h - to be given a half hour prior to lasix * Aldactone 25mg PO daily (3) Episodes of Blurry Vision Brain MRI w/ and w/o contrast pending final read (4) History of coronary artery disease Continue home medications: * Aspirin 81mg PO daily * Crestor 10mg PO daily (5) History of atrial fibrillation Continue home medications: * Digoxin 0.125mg PO daily * Continue to monitor with telemetry * Reconcile more home medications for A. fibrillation as needed As per previous admissions documentation, patient continually refuses anticoagulation (6) History of psychiatric disorder anxiety Continue home medication: Xanax 1mg PO Q6 prn (7) History of COPD Albuterol duonebs q3h prn (8) History of substance abuse Cocaine use: UDS - positive for Cocaine hold use of Beta Yonis (9) Hx Intracranial bleed, splenic infarct * Head CT (01/05/18): no evidence of acute intracranial injury/fractures; large area of encephalomalacia in right occipital lobe, most compatible with chronic infarct * Neurology, Dr. Hurt is consulted. Recommends getting repeat MRI of brain * MRI of brain ordered with and without contrast. * will give Ativan 1mg prior to MRI (10) Chronic pain * Continue home medications: Endocet 5/325 Q6 2 tabs prn pain, Dilaudid 0.5 mg IVP q6 prn pain, benadryl 25 mg IVP q6 prn (11) Morbid Obesity BMI: 40.7 (12) Prophylactic measure SCDs contraindicated due to b/l LE edema Heparin 5,000 units SC q12h Protonix 40mg PO daily Patient demands Regular diet. Refusing to eat otherwise and causing multiple code Kwok. Patient will be given script for rolling walker.
[2018-01-17] MEDS ORDERED: Silver Sulfadiazine 1% Cream (20 gm) TOP SCH (12:30)
[2018-01-17] MEDS: Digoxin 125 mcg (0.125 mg) Tab PO SCH (18:29)
[2018-01-17 18:30] VITALS: PULSE 68
[2018-01-18] MEDS ORDERED: Potassium Chloride 20 mEq ER Tab PO ONE ×2 (00:15→23:46)
[2018-01-18] MEDS: metOLazone 5 MG TAB PO SCH ×2 (00:17→13:20)
[2018-01-18] MEDS: HYDROmorphone 0.5 mg/0.5 ml ISec IVP PRN ×2 (02:16→09:01)
[2018-01-18 09:03] VITALS: BP 105/68; PULSE 82; TEMP 98; O2SAT 97
[2018-01-18] MEDS: Pantoprazole 40 mg EC Tab PO SCH (09:41)
[2018-01-18] MEDS: Aspirin 325 mg EC Tablets PO SCH (09:42)
--- NOTE | 2018-01-18 14:49 | VASCLAB ---
PROCEDURE: Right Lower Extremity Venous Duplex Exam. HISTORY: RLE swelling PRIORS: None. TECHNIQUE: Right common femoral, femoral, popliteal and posterior tibial, peroneal and great saphenous veins were evaluated. Flow was assessed with color Doppler, compressibility, assessment of phasic flow and augmentation response. Report prepared by DEMETRIUS Pugh, RVT FINDINGS: RIGHT: 1. Common Femoral Vein: 1.1. Compressibility - Fully compressible: Thrombus - None: Flow - Phasic: Augmentation -Normal: Reflux - None. 2. Femoral Vein: 2.1. Compressibility - Fully compressible: Thrombus - None: Flow - Phasic: Augmentation -Normal: Reflux - None. 3. Popliteal Vein: 3.1. Compressibility - Fully compressible: Thrombus - None: Flow - Phasic: Augmentation -Normal: Reflux - None. 4. Posterior Tibial Vein: 4.1. Compressibility - : Thrombus - : Flow - : Augmentation -: Reflux - . 5. Peroneal Vein: 5.1. Compressibility - : Thrombus - : Flow - : Augmentation -: Reflux - . 6. Great Saphenous Vein: 6.1. Compressibility - Fully compressible: Thrombus -None: Flow - Phasic: Augmentation - Normal: Reflux - None. OTHER FINDINGS: Due to bandages on the lower leg, the right posterior tibial and peroneal veins were not visualized. IMPRESSION: No evidence of deep or superficial vein thrombosis of the right lower extremity with excellent venous flow. Normal valve function noted of the right side. Normal venous flow noted in the left common femoral vein.
--- NOTE | 2018-01-18 15:53 | CP.PCM.DIS ---
Provider - Provider Date of Admission: 01/11/18 16:45 Attending physician: Roque Ocampo Jr, MD Time Spent in preparation of Discharge (in minutes): 40 Hospital Course - Lab Results Lab Results: Most Recent Lab Values WBC 10.2 K/uL (4.8-10.8) 01/17/18 08:16 RBC 5.42 Mil/uL (4.40-5.90) 01/17/18 08:16 Hgb 14.8 g/dL (12.0-18.0) 01/17/18 08:16 Hct 44.5 % (35.0-51.0) 01/17/18 08:16 MCV 82.2 fL (80.0-94.0) 01/17/18 08:16 MCH 27.3 pg (27.0-31.0) 01/17/18 08:16 MCHC 33.3 g/dL (33.0-37.0) 01/17/18 08:16 RDW 16.9 % (11.5-14.5) H 01/17/18 08:16 Plt Count 219 K/uL (130-400) 01/17/18 08:16 MPV 8.4 fL (7.2-11.7) 01/17/18 08:16 Neut % (Auto) 65.9 % (50.0-75.0) 01/17/18 08:16 Lymph % (Auto) 13.0 % (20.0-40.0) L 01/17/18 08:16 [place] % (Auto) 17.2 % (0.0-10.0) H 01/17/18 08:16 Eos % (Auto) 3.4 % (0.0-4.0) 01/17/18 08:16 Baso % (Auto) 0.5 % (0.0-2.0) 01/17/18 08:16 Neut # (Auto) 6.7 K/uL (1.8-7.0) 01/17/18 08:16 Lymph # (Auto) 1.3 K/uL (1.0-4.3) 01/17/18 08:16 [place] # (Auto) 1.8 K/uL (0.0-0.8) H 01/17/18 08:16 Eos # (Auto) 0.3 K/uL (0.0-0.7) 01/17/18 08:16 Baso # (Auto) 0.0 K/uL (0.0-0.2) 01/17/18 08:16 Sodium 131 mmol/L (132-148) L 01/17/18 08:16 Potassium 2.5 mmol/L (3.6-5.2) L* 01/17/18 08:16 Chloride 81 mmol/L (98-107) L 01/17/18 08:16 Carbon Dioxide 39 mmol/L (22-30) H 01/17/18 08:16 Anion Gap 14 (10-20) 01/17/18 08:16 BUN 37 mg/dL (9-20) H 01/17/18 08:16 Creatinine 1.2 mg/dL (0.8-1.5) 01/17/18 08:16 Est GFR ( Amer) > 60 01/17/18 08:16 Est GFR (Non-Af Amer) > 60 01/17/18 08:16 POC Glucose (mg/dL) 81 mg/dL (65-110) 01/14/18 06:27 Random Glucose 201 mg/dL (75-110) H 01/17/18 08:16 Calcium 9.0 mg/dl (8.6-10.4) 01/17/18 08:16 Total Bilirubin 0.8 mg/dL (0.2-1.3) 01/17/18 08:16 AST 44 U/L (17-59) 01/17/18 08:16 ALT 29 U/L (21-72) 01/17/18 08:16 Alkaline Phosphatase 78 U/L (38-126) 01/17/18 08:16 Troponin I 0.0680 ng/mL (0.00-0.120) 01/09/18 06:37 NT-Pro-B Natriuret Pep 3760 pg/mL (0-450) H 01/08/18 16:45 Total Protein 8.0 g/dL (6.3-8.3) 01/17/18 08:16 Albumin 3.6 g/dL (3.5-5.0) 01/17/18 08:16 Globulin 4.4 gm/dL (2.2-3.9) H 01/17/18 08:16 Albumin/Globulin Ratio 0.8 (1.0-2.1) L 01/17/18 08:16 Urine Color Yellow (YELLOW) 01/08/18 17:08 Urine Clarity Hazy (Clear) 01/08/18 17:08 Urine pH 5.0 (5.0-8.0) 01/08/18 17:08 Ur Specific [place] 1.020 (1.003-1.030) 01/08/18 17:08 Urine Protein 1+ mg/dL (NEGATIVE) H 01/08/18 17:08 Urine Glucose (UA) Normal mg/dL (Normal) 01/08/18 17:08 Urine Ketones Negative mg/dL (NEGATIVE) 01/08/18 17:08 Urine Blood Negative (NEGATIVE) 01/08/18 17:08 Urine Nitrate Negative (NEGATIVE) 01/08/18 17:08 Urine Bilirubin Negative (NEGATIVE) 01/08/18 17:08 Urine Urobilinogen 2.0 mg/dL (0.2-1.0) 01/08/18 17:08 Ur Leukocyte Esterase Neg [place]/uL (Negative) 01/08/18 17:08 Urine WBC (Auto) 1 /hpf (0-5) 01/08/18 17:08 Urine RBC (Auto) 2 /hpf (0-3) 01/08/18 17:08 Hyaline Casts 3-5 /lpf (0-2) H 01/08/18 17:08 Digoxin < 0.4 ng/mL (0.8-2.0) L 01/08/18 16:45 Urine Opiates Screen Negative (NEGATIVE) 01/08/18 17:08 Urine Methadone Screen Negative (NEGATIVE) 01/08/18 17:08 Ur Barbiturates Screen Negative (NEGATIVE) 01/08/18 17:08 Ur Phencyclidine Scrn Negative (NEGATIVE) 01/08/18 17:08 Ur Amphetamines Screen Negative (NEGATIVE) 01/08/18 17:08 U Benzodiazepines Scrn Positive (NEGATIVE) 01/08/18 17:08 U Oth Cocaine Metabols Positive (NEGATIVE) H 01/08/18 17:08 U Cannabinoids Screen Negative (NEGATIVE) 01/08/18 17:08 - Hospital Course Hospital Course: As per admission documentation, Patient is a 47 year old male with past medical history of anxiety/ depression, asthma, afib, chronic back pain, CAD, CHF, COPD, HTN, HLD, chronic LE edema and substance abuse, who presents to the ED with complaints of shortness of breath and visual disturbances that started 2 days ago. Of note the patient signed out AMA from [facility] on 01/06/18. Upon further questioning regarding history of present illness, patient states that he since leaving the hospital his vision becomes blurry throughout the day. The patient denies any eye pain, discharge, or injury in relation to the HPI. The patient denies any lightheadedness, dizziness, syncopal episodes, nausea, vomiting, sick contacts, or any other complaints. Hospital Course Patient was admitting on 01/08/18 for Acute Exacerbation of CHF. Patient has many co-morbidities and is very non-compliant as an outpatient. He has been hospitalized for this multiple times. He was restarted on his home medications. He tested positive for Cocaine so Beta Blockers were not used throughout his hospital stay. Upon admission BNP 3760, trop neg x3. Attempted to get a Brain MRI due to the patient's recent intracranial bleed and complaint of blurry. Patient either refused the study or could not tolerate the study, even with ativan, multiple times. Patient got Brain MRI and was instructed to follow up with Dr. Hurt as outpatient. Chest xray (01/08/18): marked cardiomegaly, moderate interstitial prominence may reflect edema or infection ECHO (12/13/17): LV is severely dilated with global hypokinesis. LV systolic function is severely impaired. EF is ~25% Head CT (01/05/18): no evidence of acute intracranial injury/fractures; large area of encephalomalacia in right occipital lobe, most compatible with chronic infarct Brain MRI w/ and w/o (01/16/18): No evidence of new foci of diffusion restriction in the brain. Re- demonstration of abnormal signal and enhancement at the right occipital lobe and medial inferior aspect of the right temporal lobe consistent with the patient's recent hemorrhagic infarction. Foci of hyperintense FLAIR and T2 signal seen in the periventricular region as described above. Small focal encephalomalacia at the left occipital lobe may represent old infarction. LE duplex (01/18/18): limited due to bandages on right leg. no DVT seen at level of knee or above. Patient's symptoms improved with lasix, aldactone, metolazone and fluid restriction. Patient stated he wanted to be discharged home on 01/18/18. The importance of medication adherence and discontinuation of cocaine was stressed to patient. He states he does not use cocaine regularly and that he takes his medications as directed. Discharge instructions, Patient is to be discharged home per Dr. Ocampo. Patient is not being given any new medications at this time. Patient is to follow up with his primary care physician in one to two weeks. Patient instructed to stop using cocaine as this is only worsening effects of his diseases. If the patient experiences any new or worsening symptoms, please go to the nearest emergency facility. This is just a brief summary of the hospital events. For full detail, please see EMR. - Constitutional Appears: Non-toxic, No Acute Distress - Head Exam Head Exam: NORMAL INSPECTION - Eye Exam Eye Exam: EOMI, PERRL - ENT Exam ENT Exam: Mucous Membranes Moist - Respiratory Exam Respiratory Exam: Clear to Ausculation Bilateral, NORMAL BREATHING PATTERN - Cardiovascular Exam Cardiovascular Exam: RRR, +S1, +S2 - GI/Abdominal Exam GI & Abdominal Exam: Soft, Normal Bowel Sounds. absent: Tenderness - Extremities Exam Extremities Exam: Pedal Edema, Tenderness - Neurological Exam Neurological Exam: Alert, Awake, Oriented x3 - Psychiatric Exam Psychiatric exam: Agitated - Skin Skin Exam: Dry, Warm Discharge Plan - Follow Up Plan Condition: FAIR Disposition: HOME/ ROUTINE Instructions: Heart Healthy Diet, Heart Failure, Adult (DC), Chest Pain (DC) Additional Instructions: Patient is to be discharged home per Dr. Ocampo. Patient is not being given any new medications at this time. Patient is to follow up with his primary care physician in one to two weeks. Patient instructed to stop using cocaine as this is only worsening effects of his diseases. If the patient experiences any new or worsening symptoms, please go to the nearest emergency facility. Referrals: Roque Ocampo Jr., MD [Medical Doctor] - Clinical Quality Measures - CQM - Heart Failure Ejection Fraction: Less Than 40 % Left Ventricular Function to be assessed after discharge: No SHONDA Inhibitor Prescribed: No Contraindication/Reason for not providing: unknown Beta-Yonis Prescribed: Carvedilol (patient instructed to not take if he is using cocaine) Angiotensin II Receptor Yonis Prescribed: No Contraindication/Reason for not providing: unknown AnticoagulationTherapy for Atrial Fibrillation/Atrialflutter: No Contraindication/Reason for not providing: pt refusal Aldosterone Antagonist Prescribed: Yes Hydralazine Nitrate Prescribed: No Contraindication/Reason for not providing: not indicated Implantable Cardioverter Defibrillator Therapy: No Contraindication/Reason for not providing: patient refusal Cardiac Resynchronization Therapy Prescribed: No Contraindication/Reason for not providing: NSR Will be discharged to: Home Follow Up Date (must be within 7 days from discharge): 01/25/18 Follow Up Time: 09:00
== END 2018-01-18 15:40 | disposition home or self-care (01) | DRG 292 ==
LOC: C.ER 15:09 → C.5S 18:44 → C.9E 18:44 → C.6T 01-09 00:58 → OBSVTOIN 01-11 16:45 → C.6T 01-17 23:51
PROVIDERS: ADMIT Internal Medicine; ATTEND Internal Medicine
DX: I11.0 Hypertensive heart disease with heart failure (principal); Z68.41 Body mass index [BMI] 40.0-44.9, adult; G93.89 Other specified disorders of brain; E66.01 Morbid (severe) obesity due to excess calories; E78.00 Pure hypercholesterolemia, unspecified; I50.23 Acute on chronic systolic (congestive) heart failure; F14.90 Cocaine use, unspecified, uncomplicated; F17.200 Nicotine dependence, unspecified, uncomplicated; F31.9 Bipolar disorder, unspecified; F41.9 Anxiety disorder, unspecified; G47.30 Sleep apnea, unspecified; G89.29 Other chronic pain; I25.10 Atherosclerotic heart disease of native coronary artery without angina pectoris; I48.91 Unspecified atrial fibrillation; H53.462 Homonymous bilateral field defects, left side; I69.398 Other sequelae of cerebral infarction; J44.9 Chronic obstructive pulmonary disease, unspecified; Z79.82 Long term (current) use of aspirin; Z82.49 Family history of ischemic heart disease and other diseases of the circulatory system; Z83.3 Family history of diabetes mellitus; Z87.01 Personal history of pneumonia (recurrent); Z91.14 Patient's other noncompliance with medication regimen; Z95.5 Presence of coronary angioplasty implant and graft

== ENCOUNTER 2018-01-27 12:08 | Observation (INO) | payer MEDICARE, MEDICAID ==
[2018-01-27 12:35] VITALS: BMI 44.4
[2018-01-27] MEDS ORDERED: cefTRIAXone IV 1 gm in Dextros 50 ML IV ONE (12:38)
--- NOTE | 2018-01-27 12:38 | C.PDOC ---
History Of Present Illness 47 y/o male presents to the ER complaining of swelling and redness to the lower extremities. Patient denies having other complaints. Of note, patient has a history of CHF, CAD, and HTN. Time Seen by Provider: 01/27/18 12:15 History Per: Patient History/Exam Limitations: no limitations Onset/Duration Of Symptoms: Hrs Current Symptoms Are (Timing): Still Present Severity: Moderate Reports Recently: Seen In ED, Treated By A Physician Past Medical History Reviewed: Historical Data, Nursing Documentation, Vital Signs Vital Signs: Last Vital Signs Temp 98.0 F 01/27/18 13:15 Pulse 109 H 01/27/18 13:15 Resp 20 01/27/18 13:15 BP 115/87 01/27/18 13:15 Pulse Ox 97 01/27/18 13:15 - Medical History PMH: Anxiety, Arthritis, Asthma, Atrial Fibrillation, Back Problems, Bipolar Disorder, CAD, Cardia Arrhythmia, CHF, COPD, CVA, Depression, HTN, Hypercholesterolemia, Peripheral Edema, Pneumonia, Sleep Apnea, Chronic Pain ( Lower Back Pain) Denies: Chronic Kidney Disease Surgical History: Appendectomy (2008), Coronary Stent (2008 - 2012 4 stents) - [employer] Procedures CORONAR ARTERIOGR-2 CATH (07/06/13) DRAINAGE OF SPLEEN, PERCUTANEOUS APPROACH (03/05/17) INJECT/INFUSE NEC (02/22/14) LEFT HEART CARDIAC CATH (07/06/13) LT HEART ANGIOCARDIOGRAM (07/06/13) NEBULIZER THERAPY (03/28/14) NON-INVASIVE MECHANICAL VENTILATION (03/26/15) TRANSFUSE NONAUT FROZEN PLASMA IN PERIPH VEIN, PERC (02/21/17) Family History: States: CAD, Diabetes - Social History Hx Tobacco Use: Yes Hx Alcohol Use: No Hx Substance Use: Yes (cocaine) - Immunization History Hx Tetanus Toxoid Vaccination: Yes Hx Influenza Vaccination: Yes Hx Pneumococcal Vaccination: Yes (08/2014) Review Of Systems Except As Marked, All Systems Reviewed And Found Negative. Constitutional: Negative for: Fever, Chills Respiratory: Positive for: Cough Musculoskeletal: Positive for: Leg Pain Skin: Positive for: Other (erythema lower legs) Physical Exam - Physical Exam Appears: Non-toxic, No Acute Distress Skin: Normal Color, Warm Head: Atraumatic, Normacephalic Eye(s): bilateral: Normal Inspection Nose: Normal Oral Mucosa: Moist Neck: Supple Chest: Symmetrical Cardiovascular: Rhythm Regular Respiratory: Normal Breath Sounds, No Accessory Muscle Use, No Rales, No Rhonchi , No Wheezing Extremity: Normal ROM, No Tenderness, No Swelling, Other (erythema in bilateral lower legs, some sores on bilateral lower legs with oozing fluids) Neurological/Psych: Oriented x3, Normal Speech, Normal Motor, Normal Sensation Gait: Steady ED Course And Treatment - Laboratory Results Result Diagrams: 01/27/18 14:35 01/27/18 14:35 Lab Interpretation: No Acute Changes Progress Note: Patient presents to ED with redness and swelling to both lower legs. Patietn refusing chest X-ray and EKG. Treated with rocephin 1 GM IV Reassessment Condition: Unchanged - Physician Consult Information Physician Contacted: Roque Ocampo Jr. Outcome Of Conversation: admit Medical Decision Making Medical Decision Making: Plan: --Labs --UA --CXR Patient has frequent admission to ED Medical residents contacted to evaluate patient Disposition Discussed With Dr.: Roque Ocampo Jr. Doctor Will See Patient In The: Hospital - Disposition Disposition: HOME/ ROUTINE Disposition Time: 13:40 Condition: STABLE - POA Present On Arrival: None - Clinical Impression Clinical Impression: Cellulitis, Peripheral edema - PA / SENIOR INFORMATION SYSTEMS ARCHITECT / Resident Statement MD/DO has reviewed & agrees with the documentation as recorded. - Scribe Statement The provider has reviewed the documentation as recorded by the Scribe Juanis Fischer Provider Attestation All medical record entries made by the Scribe were at my direction and personally dictated by me. I have reviewed the chart and agree that the record accurately reflects my personal performance of the history, physical exam, medical decision making, and the department course for this patient. I have also personally directed, reviewed, and agree with the discharge instructions and disposition. Decision To Admit - Pt Status Changed To: Hospital Disposition Of: Inpatient - Admit Certification Admit to Inpatient:: After my assessment, the patient will require hospitalization for at least two midnights. This is because of the severity of symptoms shown, intensity of services needed, and/or the medical risk in this patient being treated as an outpatient. - InPatient: Physician Admission Certification: I certify that this patient requires 2 or more midnights of care for the following reason:: Cellulitis - . Bed Request Type: Regular Patient Diagnosis: Cellulitis, Peripheral edema
[2018-01-27 14:41] LABS: BASO # 0.1 K/uL (0.0-0.2); BASO % 0.8 % (0.0-2.0); EOS # 0.3 K/uL (0.0-0.7); EOS % 2.4 % (0.0-4.0); HEMOGLOBIN 14.6 g/dL (12.0-18.0); LYMPH # 1.8 K/uL (1.0-4.3); LYMPH % 15.5 % (20.0-40.0); MEAN CORPUSCULAR HEMOGLOBIN 27.2 pg (27.0-31.0); MEAN CORPUSCULAR HGB CONC 32.8 g/dL (33.0-37.0); MEAN PLATELET VOLUME 7.8 fL (7.2-11.7); MONO # 1.5 K/uL (0.0-0.8); MONO % 13.4 % (0.0-10.0); NEUT # 7.8 K/uL (1.8-7.0); NEUT % 67.9 % (50.0-75.0); RBC 5.38 Mil/uL (4.40-5.90); WHITE BLOOD COUNT 11.5 K/uL (4.8-10.8)
[2018-01-27] MEDS ORDERED: cefTRIAXone IV 1 gm in Dextros 50 ML IVPB ONE (14:41)
[2018-01-27 15:09] LABS: B-TYPE NATRIURETIC PEPTIDE 13500 pg/mL (0-450)
[2018-01-27 15:21] LABS: ALB/GLOB RATIO 0.8 (1.0-2.1); ALBUMIN 3.9 g/dL (3.5-5.0); ALT/SGPT 32 U/L (21-72); AST/SGOT 61 U/L (17-59); BLOOD UREA NITROGEN 19 mg/dL (9-20); CALCIUM 8.9 mg/dl (8.6-10.4); GFR AFRICAN-AMERICAN > 60; GFR NON-AFRICAN AMERICAN > 60
[2018-01-27] MEDS ORDERED: HYDROmorphone 0.5 mg/0.5 ml ISec ONE (16:35)
[2018-01-27] MEDS: HYDROmorphone 0.5 mg/0.5 ml ISec IVP PRN (16:37)
--- NOTE | 2018-01-27 17:14 | CP.PCM.HP ---
History of Present Illness - History of Present Illness History of Present Illness: PGY1 H+P for Dr. Ocampo Patient is a 47 year old male with past medical history of anxiety/ depression, asthma, afib, chronic back pain, CAD, CHF, COPD, HTN, HLD, chronic LE edema and substance abuse. Patient was recently admitted to the hospital for similar complaints on 01/11 - 01/18. He is complaining of worsening right LE pain. He states a non-healing ulcer is getting worse and he is unable to handle the pain any longer. He states he is taking his medications as directed, but patient has a long history of non-compliance. He notes his leg is much more red and giving off a lot of heat. Denies any fevers, chills, nausea, vomiting, diarrhea, constipation, chest pain, abdominal pain, SOB, headaches, lightheadedness or dizziness. As per chart review: PMD: Dr. Ocampo PMHx: anxiety/depression, asthma, afib, chronic back pain, CAD, CHF, COPD, HTN, HLD, chronic LE edema and substance abuse, SurgHx: Appendectomy, 2008; 4 cardiac stents () FamHx: Mother- DM, Heart failure, arthritis Medications: See EMR for medication list Allergies: Apixaban, Plavix, Lovenox, Morphine and warfarin SocHx: smokes 1-2 cigarettes weekly (quit 9 months ago; former heavy smoker since 9 years old); denies alcohol; + cocaine use Present on Admission - Present on Admission Any Indicators Present on Admission: No Review of Systems - Review of Systems All systems: reviewed and no additional remarkable complaints except (as per hpi ) Past Patient History - Infectious Disease Hx of Infectious Diseases: None - Tetanus Immunizations Tetanus Immunization: Up to Date - Past Medical History & Family History Past Medical History?: Yes - Past Social History Smoking Status: Current Some Days Smoker - CARDIAC Hx Atrial Fibrillation: Yes Hx Cardia Arrhythmia: Yes Hx Congestive Heart Failure: Yes Hx Hypercholesterolemia: Yes Hx Hypertension: Yes Hx Peripheral Edema: Yes - PULMONARY Hx Asthma: Yes Hx Chronic Obstructive Pulmonary Disease (COPD): Yes Hx Pneumonia: Yes Hx Sleep Apnea: Yes - RENAL Hx Chronic Kidney Disease: No - INTEGUMENTARY Hx Dermatological Problems: Yes Hx Cellulitis: Yes - MUSCULOSKELETAL/RHEUMATOLOGICAL Hx Arthritis: Yes - GASTROINTESTINAL Hx Gastrointestinal Disorders: Yes Other/Comment: Splenic Hematoma - GENITOURINARY/GYNECOLOGICAL Hx Genitourinary Disorders: No - PSYCHIATRIC Hx Anxiety: Yes Hx Bipolar Disorder: Yes Hx Depression: Yes Hx Substance Use: Yes (cocaine) - SURGICAL HISTORY Hx Appendectomy: Yes (2008) Hx Coronary Stent: Yes (2008 - 2012 4 stents) - ANESTHESIA Hx Anesthesia: Yes Hx Anesthesia Reactions: No Hx Malignant Hyperthermia: No Meds Allergies/Adverse Reactions: Allergies Allergy/AdvReac Type Severity Reaction Status Date / Time apixaban [From Eliquis] Allergy RASH Verified 01/27/18 12:54 clopidogrel bisulfate Allergy RASH Verified 01/27/18 12:54 [From Plavix] enoxaparin sodium Allergy RASH Verified 01/27/18 12:54 [From Lovenox] morphine Allergy RASH Verified 01/27/18 12:54 warfarin Allergy RASH Verified 01/27/18 12:54 Physical Exam - Constitutional Appears: In Acute Distress ( patient is grabbing leg in pain. can not sit still throughout exam.) - Head Exam Head Exam: ATRAUMATIC, NORMOCEPHALIC - Eye Exam Eye Exam: EOMI. absent: Scleral icterus - ENT Exam ENT Exam: Mucous Membranes Moist - Respiratory Exam Respiratory Exam: Clear to Auscultation Bilateral, NORMAL BREATHING PATTERN. absent: Accessory Muscle Use, Rales, Rhonchi, Wheezes, Respiratory Distress - Cardiovascular Exam Cardiovascular Exam: Tachycardia, +S1, +S2 - GI/Abdominal Exam GI & Abdominal Exam: Normal Bowel Sounds, Soft. absent: Distended, Firm, Guarding, Tenderness - Extremities Exam Extremities exam: Positive for: calf tenderness, tenderness Additional comments: Right LE is completely erythematous from the knee down. There is a non-healing, clean, non draining ulcer located on the anterior youssef of the right LE. The ulcer is approximately 3cm x 3cm. The boarders are well defined. - Back Exam Back exam: absent: CVA tenderness (L), CVA tenderness (R) - Neurological Exam Neurological exam: Alert, Oriented x3 - Psychiatric Exam Psychiatric exam: Agitated (currently in a lot of pain), Anxious (worried about his leg) - Skin Skin Exam: Dry, Warm Results - Vital Signs Recent Vital Signs: Last Vital Signs Temp 98.0 F 01/27/18 13:15 Pulse 109 H 01/27/18 13:15 Resp 20 01/27/18 13:15 BP 115/87 01/27/18 13:15 Pulse Ox 97 01/27/18 13:15 - Labs Result Diagrams: 01/27/18 14:35 01/27/18 14:35 Labs: Laboratory Results - last 24 hr 01/27/18 01/27/18 14:35 14:35 WBC 11.5 H RBC 5.38 Hgb 14.6 Hct 44.7 MCV 83.0 MCH 27.2 MCHC 32.8 L RDW 17.0 H Plt Count 341 D MPV 7.8 Neut % (Auto) 67.9 Lymph % (Auto) 15.[address] [place] % (Auto) 13.4 H Eos % (Auto) 2.4 Baso % (Auto) 0.8 Neut # (Auto) 7.8 H Lymph # (Auto) 1.8 [place] # (Auto) 1.5 H Eos # (Auto) 0.3 Baso # (Auto) 0.1 Sodium 140 Potassium 3.5 L Chloride 99 Carbon Dioxide 27 Anion Gap 17 BUN 19 Creatinine 0.9 Est GFR ( Amer) > 60 Est GFR (Non-Af Amer) > 60 Random Glucose 95 Calcium 8.9 Total Bilirubin 0.8 AST 61 H D ALT 32 Alkaline Phosphatase 65 CK-MB (Mass) 9.30 H Troponin I 0.0630 NT-Pro-B Natriuret Pep 08323 H Total Protein 9.0 H Albumin 3.9 Globulin 5.1 H Albumin/Globulin Ratio 0.8 L Assessment & Plan - Assessment and Plan (Free Text) Plan: Right Leg Pain w/non-healing ulcer Patient has long standing hx of right LE pain f/u LE doppler pain management Hypertension * Lasix 40mg PO daily * Metolazone 10 mg PO daily - to be given a half hour prior to lasix * Aldactone 25mg PO daily Episodes of Blurry Vision Brain MRI w/ and w/o (01/14/18) - No evidence of new foci of diffusion restriction in the brain. Re- demonstration of abnormal signal and enhancement at the right occipital lobe and medial inferior aspect of the right temporal lobe consistent with the patient's recent hemorrhagic infarction. Foci of hyperintense FLAIR and T2 signal seen in the periventricular region as described above. Small focal encephalomalacia at the left occipital lobe may represent old infarction. History of coronary artery disease Continue home medications: * Aspirin 81mg PO daily * Crestor 10mg PO daily History of atrial fibrillation Continue home medications: * Digoxin 0.125mg PO daily * Continue to monitor with telemetry As per previous admissions documentation, patient continually refuses anticoagulation History of psychiatric disorder anxiety Continue home medication: Xanax 1mg PO Q6 prn History of COPD Albuterol duonebs q3h prn History of substance abuse Cocaine use: UDS - positive for Cocaine hold use of Beta Yonis Hx Intracranial bleed, splenic infarct * Head CT (01/05/18): no evidence of acute intracranial injury/fractures; large area of encephalomalacia in right occipital lobe, most compatible with chronic infarct * Brain MRI w/ and w/o (01/14/18) - No evidence of new foci of diffusion restriction in the brain. Re- demonstration of abnormal signal and enhancement at the right occipital lobe and medial inferior aspect of the right temporal lobe consistent with the patient's recent hemorrhagic infarction. Foci of hyperintense FLAIR and T2 signal seen in the periventricular region as described above. Small focal encephalomalacia at the left occipital lobe may represent old infarction. Chronic pain * Continue home medications: Endocet 5/325 Q6 2 tabs prn pain, Dilaudid 0.5 mg IVP q6 prn pain, benadryl 25 mg IVP q6 prn Morbid Obesity BMI: 35 Prophylactic measure SCDs contraindicated due to b/l LE edema Heparin 5,000 units SC q12h Pepcid 20mg PO daily Heart healthy diet Case discussed with Dr. Terrence Guevara Joaquim PGY1
[2018-01-27] MEDS: Piperacill/Tazo 4.5gm in Dex 4.5 GM/100 ML BAG IVPB SCH (17:25)
[2018-01-27] MEDS ORDERED: Vancomycin 1 gm/NS 200 ml 1 GM/200 ML BAG IVPB ONE (18:00)
[2018-01-27] MEDS ORDERED: Digoxin 125 mcg (0.125 mg) Tab PO SCH (18:00)
[2018-01-27] MEDS ORDERED: Digoxin 125 mcg (0.125 mg) Tab ONE (19:07)
[2018-01-27 19:11] VITALS: PULSE 75
[2018-01-27] MEDS: Albuterol-Ipratrop 3 mg / 0.5 (3 ml) UD INH SCH (21:24)
[2018-01-28] MEDS: Albuterol-Ipratrop 3 mg / 0.5 (3 ml) UD INH SCH ×4 (00:40→11:01)
[2018-01-28] MEDS ORDERED: HYDROmorphone 0.5 mg/0.5 ml ISec ONE (00:59)
[2018-01-28] MEDS: HYDROmorphone 0.5 mg/0.5 ml ISec IVP PRN ×3 (01:01→12:52)
[2018-01-28] MEDS ORDERED: Oxycodone/Acetaminophen 5/325 mg Tab PO ONE (02:05)
[2018-01-28] MEDS: Piperacill/Tazo 4.5gm in Dex 4.5 GM/100 ML BAG IVPB SCH ×2 (02:33→11:24)
--- NOTE | 2018-01-28 07:51 | CP.PCM.PN ---
Subjective - Date & Time of Evaluation Date of Evaluation: 01/28/18 Time of Evaluation: 07:51 - Subjective Subjective: PGY1 Medicine Note for Dr. Ocampo Patient seen and examined at bedside this morning. Patient is sitting in a chair at bedside. Patient is upset at his diet saying he does not need to eat a low salt, heart healthy diet. When he was instructed that salt will make his symptoms worse he said he did not care and refused to eat the food in front of him. He is also requesting most of his medications to be given IV because they work faster. He is requesting a switch from xanax PO to ativan PO because it helps with his anxiety much faster. He also is requesting a nicotine patch because the one he is wearing from home is done and he is starting to get a headache. He complains of extreme pain located in his right leg. Objective - Vital Signs/Intake and Output Vital Signs (last 24 hours): Temp Pulse Resp BP Pulse Ox 98.2 F 107 H 20 124/89 97 01/28/18 01:40 01/28/18 01:40 01/28/18 01:40 01/28/18 01:40 01/28/18 01:40 - Medications Medications: Current Medications Acetaminophen (Tylenol 325mg Tab) 650 mg PO Q6 PRN PRN Reason: pain/fever Albuterol/Ipratropium (Duoneb 3 Mg/0.5 Mg (3 Ml) Ud) 3 ml INH RQ4 [facility] Last Admin: 01/28/18 07:06 Dose: Not Given Alprazolam (Xanax) 1 mg PO BID PRN PRN Reason: Anxiety Last Admin: 01/27/18 19:10 Dose: 1 mg Aspirin (Ecotrin) 325 mg PO DAILY [facility] Carvedilol (Coreg) 12.5 mg PO Q12 [facility] Last Admin: 01/27/18 21:23 Dose: 12.5 mg Cyclobenzaprine HCl (Flexeril) 10 mg PO DAILY [facility] Digoxin (Digoxin) 0.125 mg PO DAILY@1800 [facility] Last Admin: 01/27/18 19:06 Dose: 0.125 mg Diltiazem HCl (Cardizem) 30 mg PO QID [facility] Last Admin: 01/27/18 21:24 Dose: 30 mg Diphenhydramine HCl (Benadryl) 25 mg IVP Q6H PRN PRN Reason: Itching / Pruritus Famotidine (Pepcid) 20 mg PO DAILY [facility] Furosemide (Lasix) 40 mg PO DAILY [facility] Gabapentin (Neurontin) 300 mg PO TID [facility] Last Admin: 01/27/18 19:06 Dose: 300 mg Hydromorphone HCl (Dilaudid) 0.5 mg IVP Q6H PRN PRN Reason: Pain, severe (8-10) Last Admin: 01/28/18 06:48 Dose: 0.5 mg Piperacillin Sod/Tazobactam Sod (Zosyn 4.5 Gm Iv Premix) 4.5 gm in 100 mls @ 200 mls/hr IVPB Q8H [facility] Last Admin: 01/28/18 02:33 Dose: 200 mls/hr Metolazone (Zaroxolyn) 10 mg PO DAILY [facility] Montelukast Sodium (Singulair) 10 mg PO HS [facility] Last Admin: 01/27/18 21:24 Dose: 10 mg Ondansetron HCl (Zofran Inj) 4 mg IVP Q6 PRN PRN Reason: Nausea/Vomiting Oxycodone/Acetaminophen (Percocet 5/325 Mg Tab) 2 tab PO Q6H PRN PRN Reason: Pain, moderate (4-7) Stop: 01/31/18 08:01 Rosuvastatin Calcium (Crestor) 5 mg PO [facility] Last Admin: 01/27/18 21:24 Dose: 5 mg Spironolactone (Aldactone) 25 mg PO DAILY [facility] - Labs Labs: 01/27/18 14:35 01/27/18 14:35 - Constitutional Appears: No Acute Distress, Chronically Ill, Other (obese ) - Head Exam Head Exam: ATRAUMATIC, NORMOCEPHALIC - Eye Exam Eye Exam: EOMI. absent: Scleral icterus - ENT Exam ENT Exam: Mucous Membranes Moist - Respiratory Exam Respiratory Exam: Clear to Ausculation Bilateral, NORMAL BREATHING PATTERN. absent: Accessory Muscle Use, Rales, Rhonchi, Wheezes, Respiratory Distress - Cardiovascular Exam Cardiovascular Exam: REGULAR RHYTHM, +S1, +S2 - GI/Abdominal Exam GI & Abdominal Exam: Soft, Normal Bowel Sounds. absent: Distended, Firm, Guarding, Rigid, Tenderness - Extremities Exam Extremities Exam: Calf Tenderness, Pedal Edema, Tenderness Additional comments: Right LE erythematous from the knee down. Non-healing, non-draining ulcer located on the anterior youssef of the right LE. The ulcer is approximately 3cm x 3cm. The boarders are well defined. - Neurological Exam Neurological Exam: Alert, Awake, Oriented x3 - Psychiatric Exam Psychiatric exam: Agitated (patient is upset at his diet and current medication regiment. ) - Skin Skin Exam: Erythema (Right LE, giving off heat) Assessment and Plan - Assessment and Plan (Free Text) Plan: Right Leg Pain w/non-healing ulcer Patient has long standing hx of right LE pain f/u LE doppler pain management Hypertension * Lasix 40mg PO daily - increased to Lasix 60mg IVP BID * Metolazone 10 mg PO daily - to be given a half hour prior to lasix * Aldactone 25mg PO daily Episodes of Blurry Vision Brain MRI w/ and w/o (01/14/18) - No evidence of new foci of diffusion restriction in the brain. Re- demonstration of abnormal signal and enhancement at the right occipital lobe and medial inferior aspect of the right temporal lobe consistent with the patient's recent hemorrhagic infarction. Foci of hyperintense FLAIR and T2 signal seen in the periventricular region as described above. Small focal encephalomalacia at the left occipital lobe may represent old infarction. History of coronary artery disease Continue home medications: * Aspirin 81mg PO daily * Crestor 10mg PO daily History of atrial fibrillation Continue home medications: * Digoxin 0.125mg PO daily * Continue to monitor with telemetry As per previous admissions documentation, patient continually refuses anticoagulation History of psychiatric disorder anxiety Continue home medication: Xanax 1mg PO Q6 prn History of COPD Albuterol duonebs q3h prn History of substance abuse Cocaine use hold use of Beta Yonis Hx Intracranial bleed, splenic infarct * Head CT (01/05/18): no evidence of acute intracranial injury/fractures; large area of encephalomalacia in right occipital lobe, most compatible with chronic infarct * Brain MRI w/ and w/o (01/14/18) - No evidence of new foci of diffusion restriction in the brain. Re- demonstration of abnormal signal and enhancement at the right occipital lobe and medial inferior aspect of the right temporal lobe consistent with the patient's recent hemorrhagic infarction. Foci of hyperintense FLAIR and T2 signal seen in the periventricular region as described above. Small focal encephalomalacia at the left occipital lobe may represent old infarction. Chronic pain * Continue home medications: Endocet 5/325 Q6 2 tabs prn pain, Dilaudid 0.5 mg IVP q6 prn pain, benadryl 50 mg IVP q6 prn Morbid Obesity BMI: 35 Current Smoker Nicotine 21mg/24hr TD daily Prophylactic measure SCDs contraindicated due to b/l LE edema Heparin 5,000 units SC q12h Pepcid 20mg PO daily Heart healthy diet - patient refused diet. informed that salt will only make his problems worse. "I don't fucking care. I'm not eating this." switched to regular diet. Case discussed with Dr. Terrence Guevara Joaquim PGY1
[2018-01-28] MEDS ORDERED: DiphenhydrAMINE 50 mg/ml Inj IVP PRN ×2 (08:00→11:12)
[2018-01-28 08:03] VITALS: PULSE 113; RESP 18; TEMP 97.4; O2SAT 95
[2018-01-28 08:06] LABS: BASO # 0.1 K/uL (0.0-0.2); BASO % 1.1 % (0.0-2.0); EOS # 0.5 K/uL (0.0-0.7); EOS % 4.5 % (0.0-4.0); HEMOGLOBIN 14.2 g/dL (12.0-18.0); LYMPH # 2.6 K/uL (1.0-4.3); LYMPH % 21.5 % (20.0-40.0); MEAN CELL VOLUME 82.8 fL (80.0-94.0); MEAN CORPUSCULAR HGB CONC 32.5 g/dL (33.0-37.0); MEAN PLATELET VOLUME 8.4 fL (7.2-11.7); MONO # 1.5 K/uL (0.0-0.8); MONO % 12.5 % (0.0-10.0); NEUT # 7.4 K/uL (1.8-7.0); NEUT % 60.4 % (50.0-75.0); NRBC % 0.1 % (0.0-2.0); RBC 5.27 Mil/uL (4.40-5.90); RED CELL DISTRIBUTION WIDTH 17.1 % (11.5-14.5); WHITE BLOOD COUNT 12.2 K/uL (4.8-10.8)
[2018-01-28] MEDS: Oxycodone/Acetaminophen 5/325 mg Tab PO PRN ×2 (08:51→14:54)
[2018-01-28 09:39] LABS: ALB/GLOB RATIO 0.8 (1.0-2.1); ALBUMIN 3.6 g/dL (3.5-5.0); ALT/SGPT 32 U/L (21-72); AST/SGOT 51 U/L (17-59); BLOOD UREA NITROGEN 19 mg/dL (9-20); GFR AFRICAN-AMERICAN > 60; GFR NON-AFRICAN AMERICAN > 60
[2018-01-28] MEDS ORDERED: metOLazone 5 MG TAB PO SCH ×2 (10:00)
[2018-01-28] MEDS ORDERED: Aspirin 325 mg EC Tablets PO SCH (10:00)
[2018-01-28 11:29] VITALS: BP 122/97
--- NOTE | 2018-01-28 18:34 | CP.PCM.DIS ---
Provider - Provider Date of Admission: 01/27/18 13:32 Attending physician: Roque Ocampo Jr, MD Time Spent in preparation of Discharge (in minutes): 0 (AMA) Hospital Course - Lab Results Lab Results: Most Recent Lab Values WBC 12.2 K/uL (4.8-10.8) H 01/28/18 07:56 RBC 5.27 Mil/uL (4.40-5.90) 01/28/18 07:56 Hgb 14.2 g/dL (12.0-18.0) 01/28/18 07:56 Hct 43.7 % (35.0-51.0) 01/28/18 07:56 MCV 82.8 fL (80.0-94.0) 01/28/18 07:56 MCH 27.0 pg (27.0-31.0) 01/28/18 07:56 MCHC 32.5 g/dL (33.0-37.0) L 01/28/18 07:56 RDW 17.1 % (11.5-14.5) H 01/28/18 07:56 Plt Count 332 K/uL (130-400) 01/28/18 07:56 MPV 8.4 fL (7.2-11.7) 01/28/18 07:56 Neut % (Auto) 60.4 % (50.0-75.0) 01/28/18 07:56 Lymph % (Auto) 21.5 % (20.0-40.0) 01/28/18 07:56 [place] % (Auto) 12.5 % (0.0-10.0) H 01/28/18 07:56 Eos % (Auto) 4.5 % (0.0-4.0) H 01/28/18 07:56 Baso % (Auto) 1.1 % (0.0-2.0) 01/28/18 07:56 Neut # (Auto) 7.4 K/uL (1.8-7.0) H 01/28/18 07:56 Lymph # (Auto) 2.6 K/uL (1.0-4.3) 01/28/18 07:56 [place] # (Auto) 1.5 K/uL (0.0-0.8) H 01/28/18 07:56 Eos # (Auto) 0.5 K/uL (0.0-0.7) 01/28/18 07:56 Baso # (Auto) 0.1 K/uL (0.0-0.2) 01/28/18 07:56 Sodium 137 mmol/L (132-148) 01/28/18 07:56 Potassium 4.2 mmol/L (3.6-5.2) 01/28/18 07:56 Chloride 101 mmol/L (98-107) 01/28/18 07:56 Carbon Dioxide 23 mmol/L (22-30) 01/28/18 07:56 Anion Gap 17 (10-20) 01/28/18 07:56 BUN 19 mg/dL (9-20) 01/28/18 07:56 Creatinine 0.9 mg/dL (0.8-1.5) 01/28/18 07:56 Est GFR ( Amer) > 60 01/28/18 07:56 Est GFR (Non-Af Amer) > 60 01/28/18 07:56 Random Glucose 90 mg/dL (75-110) 01/28/18 07:56 Calcium 9.0 mg/dl (8.6-10.4) 01/28/18 07:56 Total Bilirubin 0.6 mg/dL (0.2-1.3) 01/28/18 07:56 AST 51 U/L (17-59) 01/28/18 07:56 ALT 32 U/L (21-72) 01/28/18 07:56 Alkaline Phosphatase 70 U/L (38-126) 01/28/18 07:56 CK-MB (Mass) 9.30 ng/mL (0.0-3.38) H 01/27/18 14:35 Troponin I 0.0630 ng/mL (0.00-0.120) 01/27/18 14:35 NT-Pro-B Natriuret Pep 49755 pg/mL (0-450) H 01/27/18 14:35 Total Protein 8.2 g/dL (6.3-8.3) 01/28/18 07:56 Albumin 3.6 g/dL (3.5-5.0) 01/28/18 07:56 Globulin 4.6 gm/dL (2.2-3.9) H 01/28/18 07:56 Albumin/Globulin Ratio 0.8 (1.0-2.1) L 01/28/18 07:56 - Hospital Course Hospital Course: As per admission documentation, Patient is a 47 year old male with past medical history of anxiety/ depression, asthma, afib, chronic back pain, CAD, CHF, COPD, HTN, HLD, chronic LE edema and substance abuse. Patient was recently admitted to the hospital for similar complaints on 01/11 - 01/18. He is complaining of worsening right LE pain. He states a non-healing ulcer is getting worse and he is unable to handle the pain any longer. He states he is taking his medications as directed, but patient has a long history of non-compliance. He notes his leg is much more red and giving off a lot of heat. Denies any fevers, chills, nausea, vomiting, diarrhea, constipation, chest pain, abdominal pain, SOB, headaches, lightheadedness or dizziness. Hospital course, Patient was admitted to the hospital on 01/27 for right LE pain with a non- healing ulcer. The patient was started on his medication. The next day he was upset and left AMA. The patient left before he had any imaging performed. Discharge Exam - Head Exam Head Exam: NORMOCEPHALIC - Additional Findings Additional findings: Patient not examined because he left AMA and did not want to wait. Discharge Plan - Follow Up Plan Condition: STABLE Disposition: AGAINST MEDICAL ADVICE
== END 2018-01-28 16:46 | disposition left against medical advice (07) ==
LOC: C.ER 12:08 → C.9E 13:32 → INTOOBSV 13:32 → C.9E 14:00 → C.5S 01-28 01:23
PROVIDERS: ADMIT Internal Medicine; ATTEND Internal Medicine
DX: L97.919 Non-pressure chronic ulcer of unspecified part of right lower leg with unspecified severity (principal); E78.00 Pure hypercholesterolemia, unspecified; E78.5 Hyperlipidemia, unspecified; F17.200 Nicotine dependence, unspecified, uncomplicated; F31.9 Bipolar disorder, unspecified; G47.30 Sleep apnea, unspecified; I11.0 Hypertensive heart disease with heart failure; I25.10 Atherosclerotic heart disease of native coronary artery without angina pectoris; I50.9 Heart failure, unspecified; J44.9 Chronic obstructive pulmonary disease, unspecified; Z86.73 Personal history of transient ischemic attack (TIA), and cerebral infarction without residual deficits; Z91.19 Patient's noncompliance with other medical treatment and regimen; Z95.5 Presence of coronary angioplasty implant and graft; I48.91 Unspecified atrial fibrillation
CPT/HCPCS: 36415; 80053; 82553; 83880; 84484; 85025; 87040; 96374; G0378; J0696; J1170; J1200; J1940

== ENCOUNTER 2018-02-09 16:27 | Inpatient (IN) | payer MEDICARE, MEDICAID ==
[2018-02-09 16:28] VITALS: BMI 44.4
--- NOTE | 2018-02-09 17:13 | C.PDOC ---
History Of Present Illness 47 year old male with PMH of afib, CAD (with cardiac stents), CHF, COPD , HTN, HLD, anxiety, asthma, came to ED for SOB. Pt notes when he starts to feel anxious, he gets chest pain and SOB. NOtes he took is Ativan this morning and then ran out. Currently has no chest pain or SOB- lasted about an hour. Pt believes it is from his anxiety and admits to having many similar episodes. Pt also c/o nonhealing ulceration to the right LE. Notes its improving- "they gotta give me something, it makes me anxious." Pt was discharged from [facility] 2 days ago from similar complaints and was evaluated for same complaints in [facility] mm[facility]iple times this year. Denies fever, n/v, abdominal pain, dizziness, dyspnea, or diarrhea. Time Seen by Provider: 02/09/18 16:59 Chief Complaint (Nursing): Shortness Of Breath Past Medical History Vital Signs: Last Vital Signs Temp 98.0 F 02/10/18 23:50 Pulse 60 02/11/18 03:26 Resp 20 02/10/18 23:50 BP 99/60 L 02/10/18 23:50 Pulse Ox 96 02/10/18 23:50 - Medical History PMH: Anxiety, Arthritis, Asthma, Atrial Fibrillation, Back Problems, Bipolar Disorder, CAD, Cardia Arrhythmia, CHF, COPD, CVA, Depression, HTN, Hypercholesterolemia, Peripheral Edema, Pneumonia, Sleep Apnea, Chronic Pain ( Lower Back Pain) Denies: HIV, Chronic Kidney Disease Surgical History: Appendectomy (2008), Coronary Stent (2008 - 2012 4 stents) - [facility] Procedures CORONAR ARTERIOGR-2 CATH (07/06/13) DRAINAGE OF SPLEEN, PERCUTANEOUS APPROACH (03/05/17) INJECT/INFUSE NEC (02/22/14) LEFT HEART CARDIAC CATH (07/06/13) LT HEART ANGIOCARDIOGRAM (07/06/13) NEBULIZER THERAPY (03/28/14) NON-INVASIVE MECHANICAL VENTILATION (03/26/15) TRANSFUSE NONAUT FROZEN PLASMA IN PERIPH VEIN, PERC (02/21/17) Family History: States: CAD, Diabetes - Social History Hx Tobacco Use: Yes Hx Alcohol Use: No Hx Substance Use: Yes - Immunization History Hx Tetanus Toxoid Vaccination: No Hx Influenza Vaccination: Yes Hx Pneumococcal Vaccination: Yes (08/2014) Review Of Systems Except As Marked, All Systems Reviewed And Found Negative. Constitutional: Negative for: Fever, Chills Cardiovascular: Positive for: Chest Pain. Negative for: Palpitations, Edema Respiratory: Positive for: Shortness of Breath. Negative for: Cough Gastrointestinal: Negative for: Vomiting, Abdominal Pain Musculoskeletal: Negative for: Back Pain Skin: Positive for: Other (ulcer to leg) Neurological: Negative for: Headache, Dizziness Psych: Positive for: Anxiety Physical Exam - Physical Exam Appears: Non-toxic, No Acute Distress, Other (obese , anxious) Skin: Other ((+) erythema to the RLE with 2 cm ulceration and discharge) Head: Atraumatic, Normacephalic Eye(s): bilateral: Normal Inspection, EOMI Nose: Normal Oral Mucosa: Moist Neck: Normal ROM, Supple Chest: Symmetrical Cardiovascular: Rhythm Regular Respiratory: Normal Breath Sounds, No Decreased Breath Sounds, No Accessory Muscle Use Gastrointestinal/Abdominal: Soft, No Tenderness Back: No CVA Tenderness, No Vertebral Tenderness Extremity: Normal ROM, Tenderness (diffuse to lower leeft leg), Pedal Edema, No Calf Tenderness, No Deformity Pulses: Left Dorsalis Pedis: Normal, Right Dorsalis Pedis: Normal Neurological/Psych: Oriented x3, Normal Speech, Normal Sensation ED Course And Treatment - Laboratory Results Result Diagrams: 02/10/18 08:39 02/10/18 08:39 ECG: Interpreted By Me (Dr Figueroa), Viewed By Me ECG Rhythm: Atrial Fibrillation ECG Interpretation: No Changes From Prior (02/[address] Figueroa) Rate From EC O2 Sat by Pulse Oximetry: 95 (RA) Pulse Ox Interpretation: Normal Progress Note: Bloodwork and UA ordered and reviewed. Case discussed with dr beltran, agreed upon admission. Disposition - Disposition Disposition: HOSPITALIZED Disposition Time: 18:00 Condition: STABLE - Clinical Impression Clinical Impression: CHF (congestive heart failure), Chest pain, Anxiety, Nonhealing ulcer of left lower extremity - Scribe Statement The provider has reviewed the documentation as recorded by the Scribe (Raghav Flaherty) All medical record entries made by the Scribe were at my direction and personally dictated by me. I have reviewed the chart and agree that the record accurately reflects my personal performance of the history, physical exam, medical decision making, and the department course for this patient. I have also personally directed, reviewed, and agree with the discharge instructions and disposition.
[2018-02-09 17:34] LABS: BASO # 0.1 K/uL (0.0-0.2); BASO % 1.3 % (0.0-2.0); EOS # 0.3 K/uL (0.0-0.7); EOS % 3.3 % (0.0-4.0); HEMOGLOBIN 14.1 g/dL (12.0-18.0); LYMPH # 1.5 K/uL (1.0-4.3); LYMPH % 14.1 % (20.0-40.0); MEAN CELL VOLUME 81.8 fL (80.0-94.0); MEAN CORPUSCULAR HEMOGLOBIN 26.6 pg (27.0-31.0); MEAN CORPUSCULAR HGB CONC 32.6 g/dL (33.0-37.0); MEAN PLATELET VOLUME 8.1 fL (7.2-11.7); MONO # 1.1 K/uL (0.0-0.8); MONO % 10.2 % (0.0-10.0); NEUT # 7.5 K/uL (1.8-7.0); NEUT % 71.1 % (50.0-75.0); RBC 5.31 Mil/uL (4.40-5.90); RED CELL DISTRIBUTION WIDTH 17.5 % (11.5-14.5); WHITE BLOOD COUNT 10.5 K/uL (4.8-10.8)
[2018-02-09 17:47] LABS: ALB/GLOB RATIO 0.8 (1.0-2.1); ALBUMIN 4.2 g/dL (3.5-5.0); ALT/SGPT 31 U/L (21-72); AST/SGOT 34 U/L (17-59); BLOOD UREA NITROGEN 20 mg/dL (9-20); CALCIUM 9.1 mg/dl (8.6-10.4); GFR AFRICAN-AMERICAN > 60; GFR NON-AFRICAN AMERICAN > 60
[2018-02-09 17:50] LABS: SQUAMOUS EPITHIAL < 1 /hpf (0-5); URINE BILIRUBIN NEGATIVE (NEGATIVE); URINE BLOOD NEGATIVE (NEGATIVE); URINE CLARITY Clear (Clear); URINE COLOR Straw (YELLOW); URINE GLUCOSE (UA) NORMAL (Normal); URINE HYALINE CAST 0-2 /lpf (0-2); URINE LEUKOCYTE ESTERASE NEG Leu/uL (Negative); URINE PROTEIN NEGATIVE (NEGATIVE); URINE UROBILINOGEN NORMAL mg/dL (0.2-1.0)
[2018-02-09 17:58] LABS: B-TYPE NATRIURETIC PEPTIDE 6530 pg/mL (0-450); CK-MB 4.92 ng/mL (0.0-3.38)
[2018-02-09 18:03] LABS: BARBITURATES, UR NEGATIVE (NEGATIVE); BENZODIAZEPINES, UR NEGATIVE (NEGATIVE); OPIATES, UR NEGATIVE (NEGATIVE); PHENCYCLIDINE, UR NEGATIVE (NEGATIVE)
--- NOTE | 2018-02-09 18:22 | RAD ---
HISTORY: sob COMPARISON: Chest x-ray performed 01/08/18 TECHNIQUE: Chest, one view. FINDINGS: LUNGS: Moderate pulmonary venous congestion. No focal consolidation. Please note that chest x-ray has limited sensitivity for the detection of pulmonary masses. PLEURA: No significant pleural effusion identified. No definite pneumothorax . CARDIOVASCULAR: Cardiomegaly. OSSEOUS STRUCTURES: No acute osseous abnormality identified. VISUALIZED UPPER ABDOMEN: Unremarkable. OTHER FINDINGS: None. IMPRESSION: Moderate pulmonary venous congestion. Cardiomegaly.
[2018-02-09] MEDS ORDERED: Albuterol HFA 90 mcg/actuation (8 g) IH PRN ×2 (19:26→19:45)
--- NOTE | 2018-02-09 19:55 | CP.PCM.HP ---
History of Present Illness - History of Present Illness History of Present Illness: Patient is a 47 year old male with past medical history of anxiety/ depression, asthma, afib, chronic back pain, CAD, CHF, CVA, COPD, HTN, HLD, chronic LE edema and substance abuse, who presents to the ED with complaints of right LE pain and swelling. Patient has several admissions to [facility] for similar complaints, as well as just discharged from [facility] yesterday. He has had chronic lower extremity edema and ulcers that he states is very painful and tender to touch. He states that it was cleaned and treated at [facility] yesterday. While he was at [facility], he also complained of chest pain for which labs were drawn and cardiology was consulted. Patient also states he had chest pain today prior to coming to the hospital. He said he became anxious, had palpitations, and chest pain in the center of his chest that worsened with respirations. The pain resolved after one hour. Patient has a history of cocaine use, last use was 2-3 days prior. He states he is compliant with all medications and took all of his medications this morning. Patient currently denies chest pain, dyspnea, n/v, fever, headaches, dysuria, constipation/diarrhea, and abdominal pain. PMD: Dr. Ocampo Preventive Maintenance Coordinator: Dr. Morgan PMHx: anxiety/depression, asthma, afib, chronic back pain, CAD, CHF, CVA, COPD, HTN, HLD, chronic LE edema and substance abuse SurgHx: Appendectomy, 2008; 4 cardiac stents () FamHx: Mother- DM, Heart failure, arthritis Medications: See EMR for medication list Allergies: Apixaban, Plavix, Lovenox, Morphine and warfarin SocHx: smokes 1pack cigarettes/month ("only when he does cocaine"); quit smoking 9 months ago; former heavy smoker since 9 years old); denies alcohol; + cocaine use (last use 2-3 days ago) Present on Admission - Present on Admission Any Indicators Present on Admission: No Review of Systems - Constitutional Constitutional: absent: Chills, Fever, Headache - EENT Eyes: Blurred Vision (chronic) Ears: absent: Dizziness - Cardiovascular Cardiovascular: Chest Pain, Dyspnea, Leg Edema, Palpitations, Rapid Heart Rate. absent: Lightheadedness - Respiratory Respiratory: Dyspnea, Pain on Inspiration. absent: Cough - Gastrointestinal Gastrointestinal: absent: Abdominal Pain, Constipation, Diarrhea, Nausea, Vomiting - Genitourinary Genitourinary: absent: Dysuria - Musculoskeletal Musculoskeletal: Abnormal Gait (walks with cane due to vision and chronic LE edema) - Integumentary Integumentary: Non-Healing Lesions (right LE), Swelling (B/L LE) - Neurological Neurological: absent: Dizziness, Frequent Falls, Headaches, Weakness - Psychiatric Psychiatric: Anxiety - Endocrine Endocrine: Palpitations Past Patient History - Infectious Disease Hx of Infectious Diseases: None - Tetanus Immunizations Tetanus Immunization: Up to Date - Past Medical History & Family History Past Medical History?: Yes - Past Social History Smoking Status: Former Smoker - CARDIAC Hx Atrial Fibrillation: Yes Hx Cardia Arrhythmia: Yes Hx Congestive Heart Failure: Yes Hx Hypercholesterolemia: Yes Hx Hypertension: Yes Hx Peripheral Edema: Yes - PULMONARY Hx Asthma: Yes Hx Chronic Obstructive Pulmonary Disease (COPD): Yes Hx Pneumonia: Yes Hx Sleep Apnea: Yes - RENAL Hx Chronic Kidney Disease: No - HEMATOLOGICAL/ONCOLOGICAL Hx Human Immunodeficiency Virus (HIV): No - INTEGUMENTARY Hx Dermatological Problems: Yes - MUSCULOSKELETAL/RHEUMATOLOGICAL Hx Arthritis: Yes - GASTROINTESTINAL Hx Gastrointestinal Disorders: Yes Other/Comment: Splenic Hematoma - GENITOURINARY/GYNECOLOGICAL Hx Genitourinary Disorders: No - PSYCHIATRIC Hx Anxiety: Yes Hx Bipolar Disorder: Yes Hx Depression: Yes Hx Substance Use: Yes - SURGICAL HISTORY Hx Appendectomy: Yes (2008) Hx Coronary Stent: Yes (2008 - 2012 4 stents) - ANESTHESIA Hx Anesthesia: Yes Hx Anesthesia Reactions: No Hx Malignant Hyperthermia: No Meds Allergies/Adverse Reactions: Allergies Allergy/AdvReac Type Severity Reaction Status Date / Time apixaban [From Eliquis] Allergy RASH Verified 02/07/18 23:50 clopidogrel bisulfate Allergy RASH Verified 02/07/18 23:50 [From Plavix] enoxaparin sodium Allergy RASH Verified 02/07/18 23:50 [From Lovenox] morphine Allergy RASH Verified 02/07/18 23:50 warfarin Allergy RASH Verified 02/07/18 23:50 Physical Exam - Head Exam Head Exam: ATRAUMATIC, NORMAL INSPECTION - Eye Exam Eye Exam: EOMI, Normal appearance Pupil Exam: PERRL - ENT Exam ENT Exam: Mucous Membranes Moist - Respiratory Exam Respiratory Exam: Decreased Breath Sounds, NORMAL BREATHING PATTERN. absent: Rhonchi, Wheezes, Respiratory Distress - Cardiovascular Exam Cardiovascular Exam: Tachycardia, Irregular Rhythm, +S1, +S2 - GI/Abdominal Exam GI & Abdominal Exam: Distended, Firm, Normal Bowel Sounds. absent: Tenderness - Extremities Exam Extremities exam: Positive for: pedal edema, tenderness (Right LE), pedal pulses present (B/L). Negative for: calf tenderness Additional comments: Right LE: erythematous, non healing ulcers noted; tender to touch. warm. no purulent discharge. pulses palpable Left LE: venous stasis, edema, pulses present. - Neurological Exam Neurological exam: Alert, Oriented x3 - Psychiatric Exam Psychiatric exam: Anxious - Skin Skin Exam: Dry, Warm Results - Vital Signs Recent Vital Signs: Last Vital Signs Temp 98.5 F 02/09/18 16:47 Pulse 100 H 02/09/18 18:31 Resp 18 02/09/18 18:31 BP 150/100 H 02/09/18 18:31 Pulse Ox 98 02/09/18 18:31 - Labs Result Diagrams: 02/09/18 17:31 02/09/18 17:31 Labs: Laboratory Results - last 24 hr 02/09/18 02/09/18 02/09/18 17:31 17:31 17:31 WBC 10.5 RBC 5.31 Hgb 14.1 Hct 43.4 MCV 81.8 MCH 26.6 L MCHC 32.6 L RDW 17.5 H Plt Count 235 MPV 8.1 Neut % (Auto) 71.1 Lymph % (Auto) 14.1 L [place] % (Auto) 10.2 H Eos % (Auto) 3.3 Baso % (Auto) 1.3 Neut # (Auto) 7.5 H Lymph # (Auto) 1.5 [place] # (Auto) 1.1 H Eos # (Auto) 0.3 Baso # (Auto) 0.1 Sodium 139 Potassium 3.9 Chloride 99 Carbon Dioxide 25 Anion Gap 18 BUN 20 Creatinine 0.9 Est GFR ( Amer) > 60 Est GFR (Non-Af Amer) > 60 Random Glucose 89 Calcium 9.1 Total Bilirubin 0.9 AST 34 ALT 31 Alkaline Phosphatase 78 Total Creatine Kinase 156 CK-MB (Mass) 4.92 H Troponin I 0.0480 NT-Pro-B Natriuret Pep 6530 H Total Protein 9.5 H Albumin 4.2 Globulin 5.2 H Albumin/Globulin Ratio 0.8 L Urine Color Urine Clarity Urine pH Ur Specific [place] Urine Protein Urine Glucose (UA) Urine Ketones Urine Blood Urine Nitrate Urine Bilirubin Urine Urobilinogen Ur Leukocyte Esterase Urine WBC (Auto) Urine RBC (Auto) Ur Squamous Epith Cells Hyaline Casts Digoxin < 0.4 L Urine Opiates Screen Urine Methadone Screen Ur Barbiturates Screen Ur Phencyclidine Scrn Ur Amphetamines Screen U Benzodiazepines Scrn U Oth Cocaine Metabols U Cannabinoids Screen 02/09/18 02/09/18 17:40 17:40 WBC RBC Hgb Hct MCV MCH MCHC RDW Plt Count MPV Neut % (Auto) Lymph % (Auto) [place] % (Auto) Eos % (Auto) Baso % (Auto) Neut # (Auto) Lymph # (Auto) [place] # (Auto) Eos # (Auto) Baso # (Auto) Sodium Potassium Chloride Carbon Dioxide Anion Gap BUN Creatinine Est GFR ( Amer) Est GFR (Non-Af Amer) Random Glucose Calcium Total Bilirubin AST ALT Alkaline Phosphatase Total Creatine Kinase CK-MB (Mass) Troponin I NT-Pro-B Natriuret Pep Total Protein Albumin Globulin Albumin/Globulin Ratio Urine Color Straw Urine Clarity Clear Urine pH 6.0 Ur Specific [place] 1.008 Urine Protein Negative Urine Glucose (UA) Normal Urine Ketones Negative Urine Blood Negative Urine Nitrate Negative Urine Bilirubin Negative Urine Urobilinogen Normal Ur Leukocyte Esterase Neg Urine WBC (Auto) < 1 Urine RBC (Auto) 1 Ur Squamous Epith Cells < 1 Hyaline Casts 0-2 Digoxin Urine Opiates Screen Negative Urine Methadone Screen Negative Ur Barbiturates Screen Negative Ur Phencyclidine Scrn Negative Ur Amphetamines Screen Negative U Benzodiazepines Scrn Negative U Oth Cocaine Metabols Positive H U Cannabinoids Screen Negative Assessment & Plan - Assessment and Plan (Free Text) Assessment: Right Leg Pain w/non-healing ulcer Patient has long standing hx of right LE edema and pain LE doppler (01/16/18): no DVTs in right/left LE Wound culture: f/u results Wound care Atrial fibrillation EKG: Afib w/rvr @109bpm Continue home medications: * Cardizem 30mg QID * Digoxin 0.125mg PO daily * Continue to monitor with telemetry As per previous admission documentation, patient continually refuses anticoagulation Chest Pain: Cardiology consulted, Dr. Morgan, help appreciated Troponins ordered at [facility] on 02/08/18- 0.049, 0.0690 Troponins in ED 02/09/18: 0.049 F/u troponinsx2 and EKG D-dimer: f/u results Continue to monitor on telemetry Hypertension * Continue home medications: * Lasix 40mg PO daily * Aldactone 25mg PO daily * HCTZ 50mg PO daily History of coronary artery disease Continue home medications: * Aspirin 325mg PO daily * Simvastatin 20mg PO daily History of psychiatric disorder Anxiety Continue home medication: * Xanax 1mg PO BID prn History of COPD Continue home medicaitons * Proair * Symbicort History of substance abuse * Cocaine use: UDS - positive for Cocaine *hold use of Beta Yonis --> takes Coreg 12.5 PO BID at home (per patient- "does not take his Coreg on the days he uses cocaine") Hx Intracranial bleed, splenic infarct * Head CT (01/05/18): no evidence of acute intracranial injury/fractures; large area of encephalomalacia in right occipital lobe, most compatible with chronic infarct * Brain MRI w/ and w/o (01/14/18) - No evidence of new foci of diffusion restriction in the brain. Re- demonstration of abnormal signal and enhancement at the right occipital lobe and medial inferior aspect of the right temporal lobe consistent with the patient's recent hemorrhagic infarction. Foci of hyperintense FLAIR and T2 signal seen in the periventricular region as described above. Small focal encephalomalacia at the left occipital lobe may represent old infarction. Episodes of Blurry Vision * Brain MRI w/ and w/o (01/14/18) - No evidence of new foci of diffusion restriction in the brain. Re- demonstration of abnormal signal and enhancement at the right occipital lobe and medial inferior aspect of the right temporal lobe consistent with the patient's recent hemorrhagic infarction. Foci of hyperintense FLAIR and T2 signal seen in the periventricular region as described above. Small focal encephalomalacia at the left occipital lobe may represent old infarction. Chronic pain * Continue home medications: Percocet 5/325 Q6 1 tabs prn pain Morbid Obesity * BMI: 36.0 Prophylactic measure SCDs contraindicated due to b/l LE edema Heparin 5,000 units SC q12h Pepcid 20mg PO BID Heart healthy diet Case discussed with Dr. Ocampo
[2018-02-09] MEDS ORDERED: Fluticasone-Salmeterol 250-50mcg Diskus INH SCH (20:00)
[2018-02-10 01:02] LABS: BARBITURATES, UR NEGATIVE (NEGATIVE); OPIATES, UR NEGATIVE (NEGATIVE); PHENCYCLIDINE, UR NEGATIVE (NEGATIVE)
[2018-02-10 01:12] LABS: CK-MB 3.65 ng/mL (0.0-3.38); TROPONIN I 0.06 ng/mL (0.00-0.120)
[2018-02-10 01:26] LABS: BENZODIAZEPINES, UR POSITIVE (NEGATIVE)
--- NOTE | 2018-02-10 06:52 | CP.PCM.PN ---
Subjective - Date & Time of Evaluation Date of Evaluation: 02/10/18 Time of Evaluation: 06:51 - Subjective Subjective: Medicine progress note for Dr. Ocampo's service Patient was seen and examined at bedside. Patient was sleeping comfortably in bed. Patient states his right LE is still painful and he has a mild headache. Patient denies chest pain, shortness of breath, nausea, vomiting, fevers, and abdominal pain. Per nursing and resident overnight, patient refused blood work, imaging, continuously removed the trophy assembler, and refused medications. Objective - Vital Signs/Intake and Output Vital Signs (last 24 hours): Temp Pulse Resp BP Pulse Ox 97.3 F L 77 20 111/70 96 02/10/18 04:25 02/10/18 04:25 02/10/18 04:25 02/10/18 04:25 02/10/18 04:25 - Medications Medications: Current Medications Albuterol (Ventolin Hfa 90 Mcg/Actuation (8 G)) 1 puff IH RQ4 PRN PRN Reason: Wheezing Alprazolam (Xanax) 1 mg PO BID PRN PRN Reason: Anxiety Last Admin: 02/09/18 21:54 Dose: 1 mg Aspirin (Ecotrin) 325 mg PO DAILY REPLACED BY [facility] Cyclobenzaprine HCl (Flexeril) 10 mg PO DAILY REPLACED BY [facility] Digoxin (Digoxin) 0.125 mg PO DAILY REPLACED BY [facility] Diltiazem HCl (Cardizem) 30 mg PO QID REPLACED BY [facility] Last Admin: 02/09/18 21:46 Dose: 30 mg Famotidine (Pepcid) 20 mg PO DAILY REPLACED BY [facility] Furosemide (Lasix) 40 mg PO DAILY REPLACED BY [facility] Gabapentin (Neurontin) 300 mg PO TID REPLACED BY [facility] Hydrochlorothiazide (Hydrodiuril) 50 mg PO HS REPLACED BY [facility] Last Admin: 02/09/18 21:46 Dose: 50 mg Ketorolac Tromethamine (Toradol) 30 mg IM Q6H PRN PRN Reason: Pain, moderate (4-7) Last Admin: 02/10/18 03:35 Dose: 30 mg Levetiracetam (Keppra) 500 mg PO BID REPLACED BY [facility] Montelukast Sodium (Singulair) 10 mg PO HS REPLACED BY [facility] Last Admin: 02/09/18 21:46 Dose: 10 mg Rosuvastatin Calcium (Crestor) 5 mg PO HS REPLACED BY [facility] Last Admin: 02/09/18 21:46 Dose: 5 mg Fluticasone/Salmeterol (Advair Diskus 250/50) 1 puff INH RQ12 JEIMY Spironolactone (Aldactone) 25 mg PO DAILY JEIMY - Labs Labs: 02/09/18 17:31 02/09/18 17:31 - Additional Findings Additional findings: - Head Exam Head Exam: ATRAUMATIC, NORMAL INSPECTION - Eye Exam Eye Exam: EOMI, Normal appearance Pupil Exam: PERRL - ENT Exam ENT Exam: Mucous Membranes Moist - Respiratory Exam Respiratory Exam: Decreased Breath Sounds, NORMAL BREATHING PATTERN. absent: Rhonchi, Wheezes, Respiratory Distress - Cardiovascular Exam Cardiovascular Exam: Tachycardia, Irregular Rhythm, +S1, +S2 - GI/Abdominal Exam GI & Abdominal Exam: Distended, Firm, Normal Bowel Sounds. absent: Tenderness - Extremities Exam Extremities exam: Positive for: pedal edema, tenderness (Right LE), pedal pulses present (B/L). Negative for: calf tenderness Additional comments: Right LE: erythematous, non healing ulcers noted; tender to touch. warm. no purulent discharge. pulses palpable Left LE: venous stasis, edema, pulses present. - Neurological Exam Neurological exam: Alert, Oriented x3 - Psychiatric Exam Psychiatric exam: Anxious - Skin Skin Exam: Dry, Warm Assessment and Plan - Assessment and Plan (Free Text) Plan: Right Leg Pain w/non-healing ulcer Patient has long standing hx of right LE edema and pain LE doppler (01/16/18): no DVTs in right/left LE Tylenol, Toradol PRN Wound culture: f/u results Wound care Atrial fibrillation EKG: Afib w/rvr @109bpm Continue home medications: * Cardizem 30mg QID * Digoxin 0.125mg PO daily * Continue to monitor with telemetry As per previous admission documentation, patient continually refuses anticoagulation Chest Pain: Cardiology consulted, Dr. Morgan, help appreciated Troponins ordered at [facility] on 02/08/18- 0.049, 0.0690 Troponins x3: 0.049, 0.060, 0.051 BNP 6530 D-dimer: 315 CTA: negative PE Continue to monitor on telemetry Hypertension * Continue home medications: * Lasix 40mg PO daily * Aldactone 25mg PO daily * HCTZ 50mg PO daily History of coronary artery disease Continue home medications: * Aspirin 325mg PO daily * Simvastatin 20mg PO daily History of psychiatric disorder Anxiety Continue home medication: * Xanax 1mg PO BID prn History of COPD Continue home medicaitons * Proair * Symbicort History of substance abuse * Cocaine use: UDS - positive for Cocaine *hold use of Beta Yonis --> takes Coreg 12.5 PO BID at home (per patient- "does not take his Coreg on the days he uses cocaine") Hx Intracranial bleed, splenic infarct * Head CT (01/05/18): no evidence of acute intracranial injury/fractures; large area of encephalomalacia in right occipital lobe, most compatible with chronic infarct * Brain MRI w/ and w/o (01/14/18) - No evidence of new foci of diffusion restriction in the brain. Re- demonstration of abnormal signal and enhancement at the right occipital lobe and medial inferior aspect of the right temporal lobe consistent with the patient's recent hemorrhagic infarction. Foci of hyperintense FLAIR and T2 signal seen in the periventricular region as described above. Small focal encephalomalacia at the left occipital lobe may represent old infarction. Episodes of Blurry Vision * Brain MRI w/ and w/o (01/14/18) - No evidence of new foci of diffusion restriction in the brain. Re- demonstration of abnormal signal and enhancement at the right occipital lobe and medial inferior aspect of the right temporal lobe consistent with the patient's recent hemorrhagic infarction. Foci of hyperintense FLAIR and T2 signal seen in the periventricular region as described above. Small focal encephalomalacia at the left occipital lobe may represent old infarction. Chronic pain * Tylenol, Tramadol PRN Morbid Obesity * BMI: 36.0 Prophylactic measure SCDs contraindicated due to b/l LE edema Heparin 5,000 units SC q12h Pepcid 20mg PO BID Heart healthy diet Case discussed with attending. All management per Dr. Ocampo.
[2018-02-10 08:49] LABS: BASO % 0.5 % (0.0-2.0); EOS # 0.4 K/uL (0.0-0.7); EOS % 4.8 % (0.0-4.0); HEMOGLOBIN 13.8 g/dL (12.0-18.0); LYMPH # 2.5 K/uL (1.0-4.3); LYMPH % 28.1 % (20.0-40.0); MEAN CELL VOLUME 83.3 fL (80.0-94.0); MEAN CORPUSCULAR HEMOGLOBIN 27.2 pg (27.0-31.0); MEAN CORPUSCULAR HGB CONC 32.7 g/dL (33.0-37.0); MEAN PLATELET VOLUME 8.7 fL (7.2-11.7); MONO # 0.9 K/uL (0.0-0.8); MONO % 10.1 % (0.0-10.0); NEUT # 5.1 K/uL (1.8-7.0); NEUT % 56.5 % (50.0-75.0); RBC 5.07 Mil/uL (4.40-5.90); RED CELL DISTRIBUTION WIDTH 17.8 % (11.5-14.5)
[2018-02-10 09:08] LABS: ALB/GLOB RATIO 0.8 (1.0-2.1); ALBUMIN 3.5 g/dL (3.5-5.0); ALT/SGPT 21 U/L (21-72); AST/SGOT 27 U/L (17-59); BLOOD UREA NITROGEN 30 mg/dL (9-20); CALCIUM 8.8 mg/dl (8.6-10.4); GFR AFRICAN-AMERICAN > 60; GFR NON-AFRICAN AMERICAN > 60
[2018-02-10 09:17] LABS: CK-MB 4.18 ng/mL (0.0-3.38); TROPONIN I 0.051 ng/mL (0.00-0.120)
[2018-02-10] MEDS ORDERED: Digoxin 125 mcg (0.125 mg) Tab PO SCH (10:00)
[2018-02-10] MEDS ORDERED: Iodixanol 320 MG/ML 100 ML BOTTLE IV ONE (10:12)
[2018-02-10] MEDS: Aspirin 325 mg EC Tablets PO SCH (11:23)
--- NOTE | 2018-02-10 11:43 | CT ---
PROCEDURE: CT Chest with contrast (Pulmonary Angiogram) HISTORY: elevated d dimer COMPARISON: CT scan of the chest dated 01/05/2018. TECHNIQUE: Axial computed tomography images were obtained of the chest in the pulmonary arterial phase of enhancement. Coronal and sagittal reformatted images were created and reviewed. Intravenous contrast dose: 624.3 Radiation dose: Total exam DLP = 100 mL Visipaque 320 mGy-cm. This CT exam was performed using one or more of the following dose reduction techniques: Automated exposure control, adjustment of the mA and/or kV according to patient size, and/or use of iterative reconstruction technique. FINDINGS: PULMONARY ARTERIES: Unremarkable. No pulmonary embolism. AORTA: No acute findings. No thoracic aortic aneurysm. LUNGS: Right upper lobe 4 mm subpleural nodule (series 4, image 50). Peripheral right upper lobe 4 mm nodule (series 4, image 51). Right middle lobe 4 mm subpleural nodule (series 4, image 69). Inferior left lower lobe 10.5 mm nodule (series 4, image 102). PLEURAL SPACES: Unremarkable. No effusion or pneumothorax. HEART: Cardiomegaly. No significant pericardial effusion. LYMPH NODES: Multiple enlarged mediastinal lymph nodes. Right paraesophageal node measuring 1.8 x 1.4 cm (series 3, image 30). Right peritracheal node measuring 2.6 x 1.9 cm (series 3, image 39). Precarinal node with central hypoattenuation measuring 2.0 x 1.6 cm (series 3, image 48). Right suprahilar node measuring 2.3 x 1.7 cm (series 3, image 53). Additional prominent preaortic and AP window lymph nodes. BONES, CHEST WALL: Healing fracture of the left anterior 5th rib. No destructive lesion OTHER FINDINGS: Unremarkable. IMPRESSION: Unremarkable CT pulmonary angiogram. No pulmonary embolus. Stable bilateral pulmonary nodules, the largest of which measures 11 mm in the left lower lobe. Grossly stable nonspecific mediastinal lymphadenopathy, measuring up to 2.6 cm as described above.
--- NOTE | 2018-02-10 12:11 | CARD ---
APPROVED REPORT EKG Measurement Heart [id number] <Conclusion> Atrial fibrillation with a competing junctional pacemaker with premature ventricular or aberrantly conducted complexes Left anterior fascicular block Inferior-posterior infarct, possibly acute ST & T wave abnormality, consider lateral ischemia ACUTE AR / STEMI Consider right ventricular involvement in acute inferior infarct Abnormal ECG
--- NOTE | 2018-02-10 12:11 | CARD ---
APPROVED REPORT EKG Measurement Heart [id number] <Conclusion> Atrial fibrillation with rapid ventricular response RSR' or QR pattern in V1 suggests right ventricular conduction delay Left anterior fascicular block Inferior-posterior infarct, possibly acute Cannot rule out Anterior infarct, age undetermined ST & T wave abnormality, consider lateral ischemia Prolonged QT ACUTE [place] / STEMI Consider right ventricular involvement in acute inferior infarct Abnormal ECG
--- NOTE | 2018-02-10 18:26 | CP.PCM.CON ---
History of Present Illness - History of Present Illness History of Present Illness: I was asked to evaluate patient by Dr Ocampo. Patient is a 47 year old male with a PMH HTN dilated cardiomyopathy atrial fibrillation, CAD medical noncompliance cocaine use who presents with chest pain. The patient has had multiple admissions refuses treatement. He used cocaine and went to [place] with chest pain, ruled out and was discharged. He is admitted to [place] one day later. The patient states he uses cocaine to treat pain of his feet. He is currently arguing with a nurse on the floor about his food order ( he wants 2 pizzas and soda). Review of Systems - Constitutional Constitutional: absent: As Per HPI, Anorexia, Chills, Daytime Sleepiness, Excessive Sweating, Fatigue, Fever, Frequent Falls, Headache, Increased Appetite , Lethargy, Malaise, Night Sweats, Snoring, Sleep Apnea, Weight Gain, Weight Loss, Weakness, Other - EENT Eyes: absent: As Per HPI, Blind Spots, Blurred Vision, Change in Vision, Decreased Night Vision, Diplopia, Discharge, Dry Eye, Exophthalmos, Floaters, Irritation, Itchy Eyes, Loss of Peripheral Vision, Pain, Photophobia, Requires Corrective Lenses, Sees Flashes, Spots in Vision, Tunnel Vision, Other Visual Disturbances, Loss of Vision, Other Ears: absent: As Per HPI, Decreased Hearing, Ear Discharge, Ear Pain, Tinnitus, Abnormal Hearing, Disequilibrium, Dizziness, Other Nose/Mouth/Throat: absent: As Per HPI, Epistaxis, Nasal Congestion, Nasal Discharge, Nasal Obstruction, Nasal Trauma, Nose Pain, Post Nasal Drip, Sinus Pain, Sinus Pressure, Bleeding Gums, Change in Voice, Dental Pain, Dry Mouth, Dysphagia, Halitosis, Hoarsness, Lip Swelling, Mouth Lesions, Mouth Pain, Odynophagia, Sore Throat, Throat Swelling, Tongue Swelling, Facial Pain, Neck Pain, Neck Mass, Other - Cardiovascular Cardiovascular: absent: As Per HPI, Acrocyanosis, Chest Pain, Chest Pain at Rest , Chest Pain with Activity, Claudication, Diaphoresis, Dyspnea, Dyspnea on Exertion, Edema, Irregular Heart Rhythm, Pain Radiating to Arm/Neck/Jaw, Leg Edema, Leg Ulcers, Lightheadedness, Orthopnea, Palpitations, Paroxysmal Nocturnal Dyspnea, Pedal Edema, Radiating Pain, Rapid Heart Rate, Slow Heart Rate, Syncope, Other - Respiratory Respiratory: absent: As Per HPI, Cough, Dyspnea, Hemoptysis, Dyspnea on Exertion , Wheezing, Snoring, Stridor, Pain on Inspiration, Chest Congestion, Excessive Mucous Production, Change in Mucous Color, Pain with Coughing, Other - Gastrointestinal Gastrointestinal: absent: As Per HPI, Abdominal Pain, Belching, Bloating, Change in Bowel Habits, Change in Stool Character, Coffee Ground Emesis, Constipation, Cramping, Diarrhea, Dyspepsia, Dysphagia, Early Satiety, Excessive Flatus, Fecal Incontinence, Heartburn, Hematemesis, Hematochezia, Loose Stools, Melena, Nausea, Odynophagia, Temesmus, Vomiting, Other - Genitourinary Genitourinary: absent: As Per HPI, Change in Urinary Stream, Difficulty Urinating, Dysuria, Flank Pain, Hematuria, Pyuria, Nocturia, Urinary Incontinence, Urinary Frequency, Urinary Hesitance, Urinary Urgency, Voiding Freq/Small Amts, Freq UTI, Hx Renal/Bladder Calculi, Hx /Renal Surgery, Bladder Distension, Other - Musculoskeletal Musculoskeletal: absent: As Per HPI, Abnormal Gait, Arthralgias, Atrophy, Back Pain, Deformity, Joint Swelling, Limited Range of Motion, Loss of Height, Muscle Cramps, Muscle Weakness, Myalgias, Neck Pain, Numbness, Radiating Pain into Limb, Stiffness, Tingling, Other - Integumentary Integumentary: absent: As Per HPI, Acne, Alopecia, Bleeding Lesions, Change in Hair, Change in Nails, Change in Pigmentation, Changing Lesions, Dry Skin, Erythema, Furuncle, Hirsutism, Lesions, New Lesions, Non-Healing Lesions, Photosensitivity, Pruritus, Rash, Skin Pain, Skin Ulcer, Sores, Striae, Swelling , Unusual Bruising, Wounds, Jaundice, Other - Neurological Neurological: absent: As Per HPI, Abnormal Gait, Abnormal Hearing, Abnormal Movements, Abnormal Speech, Behavioral Changes, Burning Sensations, Confusion, Convulsions, Disequilibrium, Dizziness, Numbness, Focal Weakness, Frequent Falls , Headaches, Lack of Coordination, Loss of Vision, Memory Loss, Paresthesias, Radicular Pain, Restless Legs, Sensory Deficit, Syncope, Tingling, Tremor, Vertigo, Weakness, Other Visual Disturbances, Other - Psychiatric Psychiatric: absent: As Per HPI, Abnormal Sleep Pattern, Anhedonia, Anxiety, Auditory Hallucinations, Behavioral Changes, Change in Appetite, Change in Libido, Confusion, Depression, Difficulty Concentrating, Hallucinations, Homicidal Ideation, Hopelessness, Irritability, Memory Loss, Mood Swings, Panic Attacks, Paranoia, Suicidal Ideation, Visual Hallucinations, Tactile Hallucinations, Other - Endocrine Endocrine: absent: As Per HPI, Change in Body Appearance, Change in Libido, Cold Intolorance, Deepening of Voice, Excessive Sweating, Fatigue, Flushing, Heat Intolorance, Increase in Ring/Shoe/Hat Size, Palpitations, Polydipsia, Polyphagia, Polyuria, Other - Hematologic/Lymphatic Hematologic: absent: As Per HPI, Easy Bleeding, Easy Bruising, Lymphadenopathy, Other Past Patient History - Infectious Disease Hx of Infectious Diseases: None - Tetanus Immunizations Tetanus Immunization: Up to Date - Past Medical History & Family History Past Medical History?: Yes - Past Social History Smoking Status: Former Smoker - CARDIAC Hx Atrial Fibrillation: Yes Hx Cardia Arrhythmia: Yes Hx Congestive Heart Failure: Yes Hx Hypercholesterolemia: Yes Hx Hypertension: Yes Hx Peripheral Edema: Yes - PULMONARY Hx Asthma: Yes Hx Chronic Obstructive Pulmonary Disease (COPD): Yes Hx Pneumonia: Yes Hx Sleep Apnea: Yes - RENAL Hx Chronic Kidney Disease: No - HEMATOLOGICAL/ONCOLOGICAL Hx Human Immunodeficiency Virus (HIV): No - INTEGUMENTARY Hx Dermatological Problems: Yes - MUSCULOSKELETAL/RHEUMATOLOGICAL Hx Arthritis: Yes - GASTROINTESTINAL Hx Gastrointestinal Disorders: Yes Other/Comment: Splenic Hematoma - GENITOURINARY/GYNECOLOGICAL Hx Genitourinary Disorders: No - PSYCHIATRIC Hx Anxiety: Yes Hx Bipolar Disorder: Yes Hx Depression: Yes Hx Substance Use: Yes - SURGICAL HISTORY Hx Appendectomy: Yes (2008) Hx Coronary Stent: Yes (2008 - 2012 4 stents) - ANESTHESIA Hx Anesthesia: Yes Hx Anesthesia Reactions: No Hx Malignant Hyperthermia: No Meds Allergies/Adverse Reactions: Allergies Allergy/AdvReac Type Severity Reaction Status Date / Time apixaban [From Eliquis] Allergy RASH Verified 02/07/18 23:50 clopidogrel bisulfate Allergy RASH Verified 02/07/18 23:50 [From Plavix] enoxaparin sodium Allergy RASH Verified 02/07/18 23:50 [From Lovenox] morphine Allergy RASH Verified 02/07/18 23:50 warfarin Allergy RASH Verified 02/07/18 23:50 - Medications Medications: Current Medications Acetaminophen (Tylenol 325mg Tab) 650 mg PO Q6 PRN PRN Reason: Pain, Mild (1-3) Albuterol (Ventolin Hfa 90 Mcg/Actuation (8 G)) 1 puff IH RQ4 PRN PRN Reason: Wheezing Alprazolam (Xanax) 1 mg PO BID PRN PRN Reason: Anxiety Last Admin: 02/09/18 21:54 Dose: 1 mg Aspirin (Ecotrin) 325 mg PO DAILY [facility] Last Admin: 02/10/18 11:23 Dose: 325 mg Cyclobenzaprine HCl (Flexeril) 10 mg PO DAILY [facility] Last Admin: 02/10/18 11:23 Dose: 10 mg Digoxin (Digoxin) 0.125 mg PO DAILY [facility] Last Admin: 02/10/18 11:23 Dose: 0.125 mg Diltiazem HCl (Cardizem) 30 mg PO QID [facility] Last Admin: 02/10/18 17:49 Dose: 30 mg Famotidine (Pepcid) 20 mg PO DAILY [facility] Last Admin: 02/10/18 11:21 Dose: 20 mg Furosemide (Lasix) 40 mg PO DAILY [facility] Last Admin: 02/10/18 11:24 Dose: 40 mg Gabapentin (Neurontin) 300 mg PO TID [facility] Last Admin: 02/10/18 17:49 Dose: 300 mg Hydrochlorothiazide (Hydrodiuril) 50 mg PO HS [facility] Last Admin: 02/09/18 21:46 Dose: 50 mg Ketorolac Tromethamine (Toradol) 30 mg IVP Q6H PRN PRN Reason: Pain, moderate (4-7) Last Admin: 02/10/18 17:51 Dose: 30 mg Levetiracetam (Keppra) 500 mg PO BID [facility] Last Admin: 02/10/18 17:49 Dose: 500 mg Montelukast Sodium (Singulair) 10 mg PO HS [facility] Last Admin: 02/09/18 21:46 Dose: 10 mg Rosuvastatin Calcium (Crestor) 5 mg PO HS [facility] Last Admin: 02/09/18 21:46 Dose: 5 mg Fluticasone/Salmeterol (Advair Diskus 250/50) 1 puff INH RQ12 JEIMY Spironolactone (Aldactone) 25 mg PO DAILY [facility] Last Admin: 02/10/18 11:23 Dose: 25 mg Physical Exam - Constitutional Appears: Non-toxic - Head Exam Head Exam: NORMAL INSPECTION - Eye Exam Eye Exam: Normal appearance - ENT Exam ENT Exam: Mucous Membranes Moist - Neck Exam Neck exam: Positive for: Lymphadenopathy - Respiratory Exam Respiratory Exam: NORMAL BREATHING PATTERN - Cardiovascular Exam Cardiovascular Exam: Irregular Rhythm - GI/Abdominal Exam GI & Abdominal Exam: Normal Bowel Sounds - Rectal Exam Rectal Exam: Deferred - Extremities Exam Extremities exam: Positive for: normal inspection - Back Exam Back exam: NORMAL INSPECTION - Neurological Exam Neurological exam: Alert, Oriented x3 - Psychiatric Exam Psychiatric exam: Normal Affect - Skin Skin Exam: Intact Results - Vital Signs Recent Vital Signs: Last Vital Signs Temp 97.9 F 02/10/18 17:54 Pulse 70 02/10/18 17:54 Resp 20 02/10/18 17:54 BP 154/91 H 02/10/18 17:54 Pulse Ox 95 02/10/18 17:54 - Labs Result Diagrams: 02/11/18 08:28 02/11/18 08:28 Labs: Laboratory Results - last 24 hr 02/10/18 02/10/18 02/10/18 00:41 00:41 00:42 WBC RBC Hgb Hct MCV MCH MCHC RDW Plt Count MPV Neut % (Auto) Lymph % (Auto) Henry % (Auto) Eos % (Auto) Baso % (Auto) Neut # (Auto) Lymph # (Auto) Henry # (Auto) Eos # (Auto) Baso # (Auto) D-Dimer, Quantitative 315 H Sodium Potassium Chloride Carbon Dioxide Anion Gap BUN Creatinine Est GFR ( Amer) Est GFR (Non-Af Amer) Random Glucose Calcium Phosphorus Magnesium Total Bilirubin AST ALT Alkaline Phosphatase Total Creatine Kinase 124 CK-MB (Mass) 3.65 H Troponin I 0.0600 Total Protein Albumin Globulin Albumin/Globulin Ratio Urine Opiates Screen Negative Urine Methadone Screen Negative Ur Barbiturates Screen Negative Ur Phencyclidine Scrn Negative Ur Amphetamines Screen Negative U Benzodiazepines Scrn Positive U Oth Cocaine Metabols Positive H U Cannabinoids Screen Negative 02/10/18 02/10/18 02/10/18 08:39 08:39 08:39 WBC 9.0 RBC 5.07 Hgb 13.8 Hct 42.2 MCV 83.3 MCH 27.2 MCHC 32.7 L RDW 17.8 H Plt Count 225 MPV 8.7 Neut % (Auto) 56.5 Lymph % (Auto) 28.1 Henry % (Auto) 10.1 H Eos % (Auto) 4.8 H Baso % (Auto) 0.5 Neut # (Auto) 5.1 Lymph # (Auto) 2.5 Henry # (Auto) 0.9 H Eos # (Auto) 0.4 Baso # (Auto) 0.0 D-Dimer, Quantitative Sodium 138 Potassium 3.8 Chloride 100 Carbon Dioxide 26 Anion Gap 17 BUN 30 H Creatinine 1.1 Est GFR ( Amer) > 60 Est GFR (Non-Af Amer) > 60 Random Glucose 114 H Calcium 8.8 Phosphorus 3.9 Magnesium 1.9 Total Bilirubin 0.6 AST 27 ALT 21 D Alkaline Phosphatase 65 Total Creatine Kinase 109 CK-MB (Mass) 4.18 H Troponin I 0.0510 Total Protein 7.9 Albumin 3.5 Globulin 4.3 H Albumin/Globulin Ratio 0.8 L Urine Opiates Screen Urine Methadone Screen Ur Barbiturates Screen Ur Phencyclidine Scrn Ur Amphetamines Screen U Benzodiazepines Scrn U Oth Cocaine Metabols U Cannabinoids Screen - EKG Data EKG Interpreted by: Myself EKG shows normal: Sinus rhythm Assessment & Plan (1) Atrial fibrillation Assessment and Plan: patient refuses anticoagulation Status: Acute (2) CHF (congestive heart failure) Assessment and Plan: currently euvolemic Status: Acute (3) Chronic left ventricular systolic dysfunction Assessment and Plan: refused AICD Status: Acute (4) HTN (hypertension) Assessment and Plan: blood pressure control Status: Acute
--- NOTE | 2018-02-11 06:57 | CP.PCM.PN ---
Subjective - Date & Time of Evaluation Date of Evaluation: 02/11/18 Time of Evaluation: 06:57 - Subjective Subjective: Medicine progress note for Dr. Ocampo's service Patient was seen and examined at bedside in no acute distress. Patient states he has pain in his right LE and requesting more pain medications; he is complaining about the pain medications he is currently receiving, stating they are ineffective. Per nurse, patient was requesting demerol and percocet yesterday. Patient is also complaining about his heart healthy diet- he requests to have a regular diet so he can have pizza instead of a fish. Complains he had to wait over an hour to get his pizza last night. Overnight, patient requested benadryl so he could sleep. He says he has not had a BM since being in the hospital, however, he does not want medicine for constipation and "wants to let it happen in its own". Patient denies chest pain, abdominal pain, nausea, vomiting, fevers, headaches, dysuria, and shortness of breath at this time. Objective - Vital Signs/Intake and Output Vital Signs (last 24 hours): Temp Pulse Resp BP Pulse Ox 97.3 F L 71 20 132/86 96 02/11/18 04:30 02/11/18 04:30 02/11/18 04:30 02/11/18 04:30 02/11/18 04:30 - Medications Medications: Current Medications Acetaminophen (Tylenol 325mg Tab) 650 mg PO Q6 PRN PRN Reason: Pain, Mild (1-3) Albuterol (Ventolin Hfa 90 Mcg/Actuation (8 G)) 1 puff IH RQ4 PRN PRN Reason: Wheezing Alprazolam (Xanax) 1 mg PO BID PRN PRN Reason: Anxiety Last Admin: 02/10/18 21:45 Dose: 1 mg Aspirin (Ecotrin) 325 mg PO DAILY [facility] Last Admin: 02/10/18 11:23 Dose: 325 mg Cyclobenzaprine HCl (Flexeril) 10 mg PO DAILY [facility] Last Admin: 02/10/18 11:23 Dose: 10 mg Digoxin (Digoxin) 0.125 mg PO DAILY [facility] Last Admin: 02/10/18 11:23 Dose: 0.125 mg Diltiazem HCl (Cardizem) 30 mg PO QID [facility] Last Admin: 02/10/18 21:45 Dose: 30 mg Famotidine (Pepcid) 20 mg PO DAILY [facility] Last Admin: 02/10/18 11:21 Dose: 20 mg Furosemide (Lasix) 40 mg PO DAILY [facility] Last Admin: 02/10/18 11:24 Dose: 40 mg Gabapentin (Neurontin) 300 mg PO TID [facility] Last Admin: 02/10/18 17:49 Dose: 300 mg Hydrochlorothiazide (Hydrodiuril) 50 mg PO [facility] Last Admin: 02/10/18 21:45 Dose: 50 mg Ketorolac Tromethamine (Toradol) 30 mg IVP Q6H PRN PRN Reason: Pain, moderate (4-7) Last Admin: 02/11/18 06:49 Dose: 30 mg Levetiracetam (Keppra) 500 mg PO BID [facility] Last Admin: 02/10/18 17:49 Dose: 500 mg Montelukast Sodium (Singulair) 10 mg PO [facility] Last Admin: 02/10/18 21:45 Dose: 10 mg Nicotine (Nicoderm Cq) 1 patch TD DAILY [facility] Rosuvastatin Calcium (Crestor) 5 mg PO [facility] Last Admin: 02/10/18 21:45 Dose: 5 mg Fluticasone/Salmeterol (Advair Diskus 250/50) 1 puff INH RQ12 [facility] Spironolactone (Aldactone) 25 mg PO DAILY [facility] Last Admin: 02/10/18 11:23 Dose: 25 mg - Labs Labs: 02/10/18 08:39 02/10/18 08:39 - Additional Findings Additional findings: - Head Exam Head Exam: ATRAUMATIC, NORMAL INSPECTION - Eye Exam Eye Exam: EOMI, Normal appearance Pupil Exam: PERRL - ENT Exam ENT Exam: Mucous Membranes Moist - Respiratory Exam Respiratory Exam: Decreased Breath Sounds, NORMAL BREATHING PATTERN. absent: Rhonchi, Wheezes, Respiratory Distress - Cardiovascular Exam Cardiovascular Exam: Tachycardia, Irregular Rhythm, +S1, +S2 - GI/Abdominal Exam GI & Abdominal Exam: Distended, Firm, Normal Bowel Sounds. absent: Tenderness - Extremities Exam Extremities exam: Positive for: pedal edema, tenderness (Right LE), pedal pulses present (B/L). Negative for: calf tenderness Additional comments: Right LE: erythematous, non healing ulcers noted; tender to touch. warm. no purulent discharge. pulses palpable Left LE: venous stasis, edema, pulses present. - Neurological Exam Neurological exam: Alert, Oriented x3 - Psychiatric Exam Psychiatric exam: Anxious - Skin Skin Exam: Dry, Warm Assessment and Plan - Assessment and Plan (Free Text) Plan: Right Leg Pain w/non-healing ulcer Patient has long standing hx of right LE edema and pain LE doppler (01/16/18): no DVTs in right/left LE Tylenol PRN Wound culture: MRSA Vancomycin 1gm IV Q24h (started on 02/11/18) Wound care- daily Atrial fibrillation EKG: Afib w/rvr @109bpm Continue home medications: * Cardizem 30mg QID * Digoxin 0.125mg PO daily * Continue to monitor with telemetry As per previous admission documentation, patient continually refuses anticoagulation Chest Pain: Cardiology consulted, Dr. Morgan, help appreciated Troponins ordered at [facility] on 02/08/18- 0.049, 0.0690 Troponins x3: 0.049, 0.060, 0.051 BNP 6530 D-dimer: 315 CTA: negative for PE Continue to monitor on telemetry Hypertension * Continue home medications: * Lasix 40mg PO daily * Aldactone 25mg PO daily * HCTZ 50mg PO daily History of coronary artery disease Continue home medications: * Aspirin 325mg PO daily * Simvastatin 20mg PO daily History of psychiatric disorder Anxiety Continue home medication: * Xanax 1mg PO BID prn History of COPD Continue home medicaitons * Proair * Symbicort History of substance abuse * Cocaine use: UDS - positive for Cocaine *hold use of Beta Yonis --> takes Coreg 12.5 PO BID at home (per patient- "does not take his Coreg on the days he uses cocaine") Hx Intracranial bleed, splenic infarct * Head CT (01/05/18): no evidence of acute intracranial injury/fractures; large area of encephalomalacia in right occipital lobe, most compatible with chronic infarct * Brain MRI w/ and w/o (01/14/18) - No evidence of new foci of diffusion restriction in the brain. Re- demonstration of abnormal signal and enhancement at the right occipital lobe and medial inferior aspect of the right temporal lobe consistent with the patient's recent hemorrhagic infarction. Foci of hyperintense FLAIR and T2 signal seen in the periventricular region as described above. Small focal encephalomalacia at the left occipital lobe may represent old infarction. Episodes of Blurry Vision * Brain MRI w/ and w/o (01/14/18) - No evidence of new foci of diffusion restriction in the brain. Re- demonstration of abnormal signal and enhancement at the right occipital lobe and medial inferior aspect of the right temporal lobe consistent with the patient's recent hemorrhagic infarction. Foci of hyperintense FLAIR and T2 signal seen in the periventricular region as described above. Small focal encephalomalacia at the left occipital lobe may represent old infarction. Chronic pain * Tylenol PRN Morbid Obesity * BMI: 36.0 Prophylactic measure SCDs contraindicated due to b/l LE edema Pepcid 20mg PO BID Heart healthy diet Contact precautions- MRSA Case discussed with attending. All management per Dr. Ocampo.
[2018-02-11 08:35] LABS: BASO # 0.1 K/uL (0.0-0.2); BASO % 0.6 % (0.0-2.0); EOS # 0.5 K/uL (0.0-0.7); EOS % 4.7 % (0.0-4.0); HEMOGLOBIN 14.2 g/dL (12.0-18.0); LYMPH # 2.4 K/uL (1.0-4.3); LYMPH % 22.5 % (20.0-40.0); MEAN CELL VOLUME 83.9 fL (80.0-94.0); MEAN CORPUSCULAR HEMOGLOBIN 27.4 pg (27.0-31.0); MEAN CORPUSCULAR HGB CONC 32.7 g/dL (33.0-37.0); MEAN PLATELET VOLUME 8.3 fL (7.2-11.7); MONO # 1.3 K/uL (0.0-0.8); NEUT # 6.4 K/uL (1.8-7.0); NEUT % 60.2 % (50.0-75.0); NRBC % 0.1 % (0.0-2.0); RBC 5.17 Mil/uL (4.40-5.90); RED CELL DISTRIBUTION WIDTH 17.7 % (11.5-14.5); WHITE BLOOD COUNT 10.7 K/uL (4.8-10.8)
[2018-02-11 08:47] LABS: ALB/GLOB RATIO 0.9 (1.0-2.1); ALBUMIN 3.9 g/dL (3.5-5.0); ALT/SGPT 27 U/L (21-72); AST/SGOT 29 U/L (17-59); BLOOD UREA NITROGEN 31 mg/dL (9-20); CALCIUM 8.9 mg/dl (8.6-10.4); GFR AFRICAN-AMERICAN > 60; GFR NON-AFRICAN AMERICAN > 60
[2018-02-11] MEDS: Aspirin 325 mg EC Tablets PO SCH (09:08)
[2018-02-11] MEDS: Vancomycin 1 gm/NS 200 ml 1 GM/200 ML BAG IVPB SCH (12:12)
[2018-02-11] MEDS: Digoxin 125 mcg (0.125 mg) Tab PO SCH (18:23)
[2018-02-11] MEDS: Oxycodone/Acetaminophen 5/325 mg Tab PO PRN (20:19)
[2018-02-12] MEDS: Oxycodone/Acetaminophen 5/325 mg Tab PO PRN ×4 (02:24→21:11)
[2018-02-12 09:06] LABS: BASO # 0.1 K/uL (0.0-0.2); BASO % 0.5 % (0.0-2.0); EOS # 0.5 K/uL (0.0-0.7); EOS % 4.5 % (0.0-4.0); HEMOGLOBIN 14.1 g/dL (12.0-18.0); LYMPH # 1.9 K/uL (1.0-4.3); LYMPH % 16.6 % (20.0-40.0); MEAN CORPUSCULAR HEMOGLOBIN 26.8 pg (27.0-31.0); MEAN CORPUSCULAR HGB CONC 31.9 g/dL (33.0-37.0); MEAN PLATELET VOLUME 8.2 fL (7.2-11.7); MONO # 0.9 K/uL (0.0-0.8); MONO % 7.7 % (0.0-10.0); NEUT # 8.1 K/uL (1.8-7.0); NEUT % 70.7 % (50.0-75.0); RBC 5.28 Mil/uL (4.40-5.90); RED CELL DISTRIBUTION WIDTH 18.5 % (11.5-14.5); WHITE BLOOD COUNT 11.4 K/uL (4.8-10.8)
[2018-02-12] MEDS: Aspirin 325 mg EC Tablets PO SCH (09:25)
[2018-02-12] MEDS: Vancomycin 1 gm/NS 200 ml 1 GM/200 ML BAG IVPB SCH (09:26)
[2018-02-12 09:33] LABS: ALB/GLOB RATIO 0.9 (1.0-2.1); ALBUMIN 4.1 g/dL (3.5-5.0); ALT/SGPT 25 U/L (21-72); AST/SGOT 32 U/L (17-59); BLOOD UREA NITROGEN 28 mg/dL (9-20); CALCIUM 8.9 mg/dl (8.6-10.4); GFR AFRICAN-AMERICAN > 60; GFR NON-AFRICAN AMERICAN > 60
--- NOTE | 2018-02-12 11:44 | CP.PCM.PN ---
Subjective - Date & Time of Evaluation Date of Evaluation: 02/12/18 Time of Evaluation: 11:42 - Subjective Subjective: Medicine progress note for Dr. Ocampo's service Overnight patient refusing tele and requested pain meds. Yesterday dressing changed on patient's right lower leg. Wound cleaned with normal saline and dressed with medihoney. Per nurse, patient was requesting demerol and percocet yesterday. Patient denies chest pain, abdominal pain, nausea, vomiting, fevers, headaches, dysuria, and shortness of breath at this time. Objective - Vital Signs/Intake and Output Vital Signs (last 24 hours): Temp Pulse Resp BP Pulse Ox 97.3 F L 61 18 119/73 98 02/12/18 08:21 02/12/18 09:24 02/12/18 08:21 02/12/18 09:25 02/12/18 08:21 - Medications Medications: Current Medications Acetaminophen (Tylenol 325mg Tab) 650 mg PO Q6 PRN PRN Reason: Pain, Mild (1-3) Albuterol (Ventolin Hfa 90 Mcg/Actuation (8 G)) 1 puff IH RQ4 PRN PRN Reason: Wheezing Alprazolam (Xanax) 1 mg PO BID PRN PRN Reason: Anxiety Last Admin: 02/12/18 09:22 Dose: 1 mg Aspirin (Ecotrin) 325 mg PO DAILY [facility] Last Admin: 02/12/18 09:25 Dose: 325 mg Cyclobenzaprine HCl (Flexeril) 10 mg PO DAILY [facility] Last Admin: 02/12/18 09:26 Dose: 10 mg Digoxin (Digoxin) 0.125 mg PO 1800 [facility] Last Admin: 02/11/18 18:23 Dose: 0.125 mg Diltiazem HCl (Cardizem) 30 mg PO QID [facility] Last Admin: 02/12/18 09:25 Dose: 30 mg Famotidine (Pepcid) 20 mg PO DAILY [facility] Last Admin: 02/12/18 09:24 Dose: 20 mg Furosemide (Lasix) 40 mg PO DAILY [facility] Last Admin: 02/12/18 09:25 Dose: 40 mg Gabapentin (Neurontin) 300 mg PO TID [facility] Last Admin: 02/12/18 09:25 Dose: 300 mg Hydrochlorothiazide (Hydrodiuril) 50 mg PO HS [facility] Last Admin: 02/11/18 21:10 Dose: 50 mg Vancomycin/Sodium Chloride (Vancomycin 1 Gm/Ns 200 Ml) 1 gm in 200 mls @ 166.7 mls/hr IVPB Q24H [facility] PRN Reason: Protocol Stop: 02/16/18 10:01 Last Admin: 02/12/18 09:26 Dose: 166.7 mls/hr Ketorolac Tromethamine (Toradol) 30 mg IVP Q6H PRN PRN Reason: Pain, moderate (4-7) Last Admin: 02/11/18 06:49 Dose: 30 mg Levetiracetam (Keppra) 500 mg PO BID [facility] Last Admin: 02/12/18 09:25 Dose: 500 mg Montelukast Sodium (Singulair) 10 mg PO [facility] Last Admin: 02/11/18 21:10 Dose: 10 mg Nicotine (Nicoderm Cq) 1 patch TD DAILY [facility] Last Admin: 02/12/18 09:25 Dose: 1 patch Oxycodone/Acetaminophen (Percocet 5/325 Mg Tab) 2 tab PO Q6H PRN PRN Reason: Pain, moderate (4-7) Stop: 02/14/18 20:09 Last Admin: 02/12/18 09:23 Dose: 2 tab Rosuvastatin Calcium (Crestor) 5 mg PO [facility] Last Admin: 02/11/18 21:10 Dose: 5 mg Fluticasone/Salmeterol (Advair Diskus 250/50) 1 puff INH RQ12 [facility] Spironolactone (Aldactone) 25 mg PO DAILY [facility] Last Admin: 02/12/18 09:25 Dose: 25 mg - Labs Labs: 02/12/18 09:01 02/12/18 09:01 - Additional Findings Additional findings: - Head Exam Head Exam: ATRAUMATIC, NORMAL INSPECTION - Eye Exam Eye Exam: EOMI, Normal appearance Pupil Exam: PERRL - ENT Exam ENT Exam: Mucous Membranes Moist - Respiratory Exam Respiratory Exam: Decreased Breath Sounds, NORMAL BREATHING PATTERN. absent: Rhonchi, Wheezes, Respiratory Distress - Cardiovascular Exam Cardiovascular Exam: Tachycardia, Irregular Rhythm, +S1, +S2 - GI/Abdominal Exam GI & Abdominal Exam: Distended, Firm, Normal Bowel Sounds. absent: Tenderness - Extremities Exam Extremities exam: Positive for: pedal edema, tenderness (Right LE), pedal pulses present (B/L). Negative for: calf tenderness Additional comments: Right LE: erythematous, non healing ulcers noted; tender to touch. warm. no purulent discharge. pulses palpable Left LE: venous stasis, edema, pulses present. - Neurological Exam Neurological exam: Alert, Oriented x3 - Psychiatric Exam Psychiatric exam: Anxious - Skin Skin Exam: Dry, Warm Assessment and Plan - Assessment and Plan (Free Text) Assessment: Right Leg Pain w/non-healing ulcer Patient has long standing hx of right LE edema and pain LE doppler (01/16/18): no DVTs in right/left LE Tylenol PRN Wound culture: MRSA Vancomycin 1gm IV Q24h (started on 02/11/18) Wound care- daily Atrial fibrillation EKG: Afib w/rvr @109bpm Continue home medications: * Cardizem 30mg QID * Digoxin 0.125mg PO daily * Continue to monitor with telemetry As per previous admission documentation, patient continually refuses anticoagulation Chest Pain: Cardiology consulted, Dr. Morgan, help appreciated Troponins ordered at [facility] on 02/08/18- 0.049, 0.0690 Troponins x3: 0.049, 0.060, 0.051 BNP 6530 D-dimer: 315 CTA: negative for PE Continue to monitor on telemetry Chronic Left Ventricular Systolic Dysfunction currently euvolemic refused AICD Hypertension * Continue home medications: * Lasix 40mg PO daily * Aldactone 25mg PO daily * HCTZ 50mg PO daily History of coronary artery disease Continue home medications: * Aspirin 325mg PO daily * Simvastatin 20mg PO daily History of psychiatric disorder Anxiety Continue home medication: * Xanax 1mg PO BID prn History of COPD Continue home medicaitons * Proair * Symbicort History of substance abuse * Cocaine use: UDS - positive for Cocaine *hold use of Beta Yonis --> takes Coreg 12.5 PO BID at home (per patient- "does not take his Coreg on the days he uses cocaine") Hx Intracranial bleed, splenic infarct * Head CT (01/05/18): no evidence of acute intracranial injury/fractures; large area of encephalomalacia in right occipital lobe, most compatible with chronic infarct * Brain MRI w/ and w/o (01/14/18) - No evidence of new foci of diffusion restriction in the brain. Re- demonstration of abnormal signal and enhancement at the right occipital lobe and medial inferior aspect of the right temporal lobe consistent with the patient's recent hemorrhagic infarction. Foci of hyperintense FLAIR and T2 signal seen in the periventricular region as described above. Small focal encephalomalacia at the left occipital lobe may represent old infarction. Episodes of Blurry Vision * Brain MRI w/ and w/o (01/14/18) - No evidence of new foci of diffusion restriction in the brain. Re- demonstration of abnormal signal and enhancement at the right occipital lobe and medial inferior aspect of the right temporal lobe consistent with the patient's recent hemorrhagic infarction. Foci of hyperintense FLAIR and T2 signal seen in the periventricular region as described above. Small focal encephalomalacia at the left occipital lobe may represent old infarction. Chronic pain * Tylenol PRN Morbid Obesity * BMI: 36.0 Prophylactic measure SCDs contraindicated due to b/l LE edema Pepcid 20mg PO BID Heart healthy diet Contact precautions- MRSA Case discussed with attending. All management per Dr. Ocampo.
[2018-02-12] MEDS: Digoxin 125 mcg (0.125 mg) Tab PO SCH (18:13)
[2018-02-13] MEDS: Oxycodone/Acetaminophen 5/325 mg Tab PO PRN ×2 (03:22→11:39)
[2018-02-13 08:37] LABS: BASO # 0.1 K/uL (0.0-0.2); BASO % 1.2 % (0.0-2.0); EOS # 0.7 K/uL (0.0-0.7); EOS % 7.3 % (0.0-4.0); HEMOGLOBIN 14.8 g/dL (12.0-18.0); LYMPH # 1.7 K/uL (1.0-4.3); LYMPH % 18.1 % (20.0-40.0); MEAN CELL VOLUME 83.7 fL (80.0-94.0); MEAN CORPUSCULAR HEMOGLOBIN 27.3 pg (27.0-31.0); MEAN CORPUSCULAR HGB CONC 32.6 g/dL (33.0-37.0); MEAN PLATELET VOLUME 8.2 fL (7.2-11.7); MONO # 1.1 K/uL (0.0-0.8); MONO % 11.6 % (0.0-10.0); NEUT # 5.7 K/uL (1.8-7.0); NEUT % 61.8 % (50.0-75.0); NRBC % 0.2 % (0.0-2.0); RBC 5.44 Mil/uL (4.40-5.90); RED CELL DISTRIBUTION WIDTH 17.9 % (11.5-14.5); WHITE BLOOD COUNT 9.2 K/uL (4.8-10.8)
[2018-02-13 08:59] LABS: ALB/GLOB RATIO 0.8 (1.0-2.1); ALBUMIN 4.2 g/dL (3.5-5.0); ALT/SGPT 27 U/L (21-72); AST/SGOT 34 U/L (17-59); BLOOD UREA NITROGEN 23 mg/dL (9-20); CALCIUM 9.2 mg/dl (8.6-10.4); GFR AFRICAN-AMERICAN > 60; GFR NON-AFRICAN AMERICAN > 60
[2018-02-13] MEDS: Aspirin 325 mg EC Tablets PO SCH (11:39)
[2018-02-13] MEDS: Vancomycin 1 gm/NS 200 ml 1 GM/200 ML BAG IVPB SCH (11:40)
[2018-02-13] MEDS ORDERED: DiphenhydrAMINE 50 mg/ml Inj IVP STA (12:10)
--- NOTE | 2018-02-13 14:53 | CP.PCM.PN ---
Subjective - Date & Time of Evaluation Date of Evaluation: 02/13/18 Time of Evaluation: 10:15 - Subjective Subjective: Medicine progress note for Dr. Ocampo Patient seen and examined at bedside. Overnight patient refused tele once again. Patient continue to complain of right leg pain and requests for pain medication. This morning patient complains of painful urination with dark color urine. Patient denies fever, chills, chest pain, nausea, vomiting, or shortness of breath. Objective - Vital Signs/Intake and Output Vital Signs (last 24 hours): Temp Pulse Resp BP Pulse Ox 97.6 F 56 L 21 120/80 98 02/13/18 07:10 02/13/18 07:10 02/13/18 07:10 02/13/18 11:39 02/13/18 07:10 Intake and Output: 02/13/18 02/13/18 06:59 18:59 Intake Total 240 Balance 240 - Medications Medications: Current Medications Acetaminophen (Tylenol 325mg Tab) 650 mg PO Q6 PRN PRN Reason: Pain, Mild (1-3) Albuterol (Ventolin Hfa 90 Mcg/Actuation (8 G)) 1 puff IH RQ4 PRN PRN Reason: Wheezing Alprazolam (Xanax) 1 mg PO BID PRN PRN Reason: Anxiety Last Admin: 02/12/18 21:12 Dose: 1 mg Aspirin (Ecotrin) 325 mg PO DAILY [facility] Last Admin: 02/13/18 11:39 Dose: 325 mg Cyclobenzaprine HCl (Flexeril) 10 mg PO DAILY [facility] Last Admin: 02/13/18 11:38 Dose: 10 mg Digoxin (Digoxin) 0.125 mg PO 1800 [facility] Last Admin: 02/12/18 18:13 Dose: 0.125 mg Diltiazem HCl (Cardizem) 30 mg PO QID [facility] Last Admin: 02/13/18 11:39 Dose: 30 mg Famotidine (Pepcid) 20 mg PO DAILY [facility] Last Admin: 02/13/18 11:38 Dose: 20 mg Furosemide (Lasix) 40 mg PO DAILY [facility] Last Admin: 02/13/18 11:39 Dose: 40 mg Gabapentin (Neurontin) 300 mg PO TID [facility] Last Admin: 02/13/18 11:38 Dose: 300 mg Hydrochlorothiazide (Hydrodiuril) 50 mg PO HS [facility] Last Admin: 02/12/18 21:11 Dose: 50 mg Vancomycin/Sodium Chloride (Vancomycin 1 Gm/Ns 200 Ml) 1 gm in 200 mls @ 166.7 mls/hr IVPB Q24H [facility] PRN Reason: Protocol Stop: 02/16/18 10:01 Last Admin: 02/13/18 11:40 Dose: 166.7 mls/hr Ketorolac Tromethamine (Toradol) 30 mg IVP Q6H PRN PRN Reason: Pain, moderate (4-7) Last Admin: 02/11/18 06:49 Dose: 30 mg Levetiracetam (Keppra) 500 mg PO BID [facility] Last Admin: 02/13/18 11:39 Dose: 500 mg Montelukast Sodium (Singulair) 10 mg PO [facility] Last Admin: 02/12/18 21:11 Dose: 10 mg Nicotine (Nicoderm Cq) 1 patch TD DAILY [facility] Last Admin: 02/12/18 09:25 Dose: 1 patch Oxycodone/Acetaminophen (Percocet 5/325 Mg Tab) 2 tab PO Q6H PRN PRN Reason: Pain, moderate (4-7) Stop: 02/14/18 20:09 Last Admin: 02/13/18 11:39 Dose: 2 tab Rosuvastatin Calcium (Crestor) 5 mg PO [facility] Last Admin: 02/12/18 21:11 Dose: 5 mg Fluticasone/Salmeterol (Advair Diskus 250/50) 1 puff INH RQ12 [facility] Spironolactone (Aldactone) 25 mg PO DAILY [facility] Last Admin: 02/13/18 11:38 Dose: 25 mg - Labs Labs: 02/13/18 08:34 02/13/18 08:34 - Constitutional Appears: No Acute Distress - Head Exam Head Exam: ATRAUMATIC, NORMAL INSPECTION - Eye Exam Eye Exam: EOMI, Normal appearance - ENT Exam ENT Exam: Mucous Membranes Moist - Respiratory Exam Respiratory Exam: Decreased Breath Sounds, NORMAL BREATHING PATTERN. absent: Respiratory Distress - Cardiovascular Exam Cardiovascular Exam: REGULAR RHYTHM, +S1, +S2 - GI/Abdominal Exam GI & Abdominal Exam: Normal Bowel Sounds - Extremities Exam Additional comments: Right: erythematous, dressing intact, tender to touch, warm, palpable pulses, no purulent discharge Left: venous stasis, edema, palpable pulses - Neurological Exam Neurological Exam: Alert, Awake, Oriented x3 - Psychiatric Exam Psychiatric exam: Manic - Skin Skin Exam: Dry, Warm Assessment and Plan - Assessment and Plan (Free Text) Assessment: Right Leg Pain w/non-healing ulcer Patient has long standing hx of right LE edema and pain LE doppler (01/16/18): no DVTs in right/left LE Tylenol PRN Wound culture: MRSA Vancomycin 1gm IV Q24h (started on 02/11/18) Wound care- daily Atrial fibrillation EKG: Afib w/rvr @109bpm Continue home medications: * Cardizem 30mg QID * Digoxin 0.125mg PO daily * Continue to monitor with telemetry As per previous admission documentation, patient continually refuses anticoagulation Chest Pain: Cardiology consulted, Dr. Morgan, help appreciated Troponins ordered at [facility] on 02/08/18- 0.049, 0.0690 Troponins x3: 0.049, 0.060, 0.051 BNP 6530 D-dimer: 315 CTA: negative for PE Continue to monitor on telemetry Chronic Left Ventricular Systolic Dysfunction currently euvolemic refused AICD Hypertension * Continue home medications: * Lasix 40mg PO daily * Aldactone 25mg PO daily * HCTZ 50mg PO daily History of coronary artery disease Continue home medications: * Aspirin 325mg PO daily * Simvastatin 20mg PO daily History of psychiatric disorder Anxiety Continue home medication: * Xanax 1mg PO BID prn History of COPD Continue home medicaitons * Proair * Symbicort History of substance abuse * Cocaine use: UDS - positive for Cocaine *hold use of Beta Yonis --> takes Coreg 12.5 PO BID at home (per patient- "does not take his Coreg on the days he uses cocaine") Hx Intracranial bleed, splenic infarct * Head CT (01/05/18): no evidence of acute intracranial injury/fractures; large area of encephalomalacia in right occipital lobe, most compatible with chronic infarct * Brain MRI w/ and w/o (01/14/18) - No evidence of new foci of diffusion restriction in the brain. Re- demonstration of abnormal signal and enhancement at the right occipital lobe and medial inferior aspect of the right temporal lobe consistent with the patient's recent hemorrhagic infarction. Foci of hyperintense FLAIR and T2 signal seen in the periventricular region as described above. Small focal encephalomalacia at the left occipital lobe may represent old infarction. Episodes of Blurry Vision * Brain MRI w/ and w/o (01/14/18) - No evidence of new foci of diffusion restriction in the brain. Re- demonstration of abnormal signal and enhancement at the right occipital lobe and medial inferior aspect of the right temporal lobe consistent with the patient's recent hemorrhagic infarction. Foci of hyperintense FLAIR and T2 signal seen in the periventricular region as described above. Small focal encephalomalacia at the left occipital lobe may represent old infarction. Chronic pain * Tylenol PRN * Percocet prn for breakout pain * Dilaudid 1mg Q6hr for severe pain Morbid Obesity * BMI: 36.0 Prophylactic measure SCDs contraindicated due to b/l LE edema Pepcid 20mg PO BID Heart healthy diet Contact precautions- MRSA Case discussed with attending. All management per Dr. Ocampo.
[2018-02-13] MEDS: Digoxin 125 mcg (0.125 mg) Tab PO SCH (18:39)
[2018-02-13] MEDS: HYDROmorphone 1 mg/ml ISec IVP PRN (18:41)
[2018-02-14] MEDS: HYDROmorphone 1 mg/ml ISec IVP PRN (00:51)
[2018-02-14] MEDS: HYDROmorphone 0.5 mg/0.5 ml ISec IVP PRN ×3 (08:12→21:16)
[2018-02-14 08:39] LABS: BASO # 0.1 K/uL (0.0-0.2); BASO % 0.8 % (0.0-2.0); EOS # 0.6 K/uL (0.0-0.7); EOS % 6.2 % (0.0-4.0); HEMOGLOBIN 14.9 g/dL (12.0-18.0); LYMPH # 1.7 K/uL (1.0-4.3); LYMPH % 16.6 % (20.0-40.0); MEAN CELL VOLUME 83.5 fL (80.0-94.0); MEAN CORPUSCULAR HEMOGLOBIN 27.1 pg (27.0-31.0); MEAN CORPUSCULAR HGB CONC 32.5 g/dL (33.0-37.0); MEAN PLATELET VOLUME 8.3 fL (7.2-11.7); MONO # 1.1 K/uL (0.0-0.8); MONO % 10.4 % (0.0-10.0); NEUT # 6.8 K/uL (1.8-7.0); NRBC % 0.1 % (0.0-2.0); RBC 5.52 Mil/uL (4.40-5.90); RED CELL DISTRIBUTION WIDTH 18.1 % (11.5-14.5); WHITE BLOOD COUNT 10.3 K/uL (4.8-10.8)
[2018-02-14 08:53] LABS: ALB/GLOB RATIO 0.8 (1.0-2.1); ALT/SGPT 31 U/L (21-72); AST/SGOT 37 U/L (17-59); BLOOD UREA NITROGEN 21 mg/dL (9-20); CALCIUM 9.2 mg/dl (8.6-10.4); GFR AFRICAN-AMERICAN > 60; GFR NON-AFRICAN AMERICAN > 60
[2018-02-14] MEDS: Vancomycin 1 gm/NS 200 ml 1 GM/200 ML BAG IVPB SCH (10:50)
[2018-02-14] MEDS: Aspirin 325 mg EC Tablets PO SCH (10:56)
[2018-02-14 12:01] LABS: URINE BILIRUBIN NEGATIVE (NEGATIVE); URINE BLOOD NEGATIVE (NEGATIVE); URINE CLARITY Hazy (Clear); URINE COLOR Yellow (YELLOW); URINE GLUCOSE (UA) NORMAL (Normal); URINE LEUKOCYTE ESTERASE NEG Leu/uL (Negative); URINE PROTEIN NEGATIVE (NEGATIVE); URINE UROBILINOGEN NORMAL mg/dL (0.2-1.0)
[2018-02-14] MEDS ORDERED: DiphenhydrAMINE 50 mg/ml Inj IVP ONE (14:00)
[2018-02-14] MEDS: Digoxin 125 mcg (0.125 mg) Tab PO SCH (17:28)
[2018-02-14 17:29] VITALS: PULSE 50
--- NOTE | 2018-02-14 18:38 | CP.PCM.PN ---
Subjective - Date & Time of Evaluation Date of Evaluation: 02/14/18 Time of Evaluation: 09:35 - Subjective Subjective: Medicine progress note for Dr. Ocampo's service Patient seen and examined at bedside. Patient's pain is well controlled with pain medication. Patient denies fever, chills, chest pain, nausea, vomiting, or shortness of breath. Objective - Vital Signs/Intake and Output Vital Signs (last 24 hours): Temp Pulse Resp BP Pulse Ox 97.3 F L 51 L 20 127/84 96 02/14/18 08:09 02/14/18 14:50 02/14/18 08:09 02/14/18 14:50 02/14/18 10:53 Intake and Output: 02/14/18 02/14/18 06:59 18:59 Intake Total 870 Balance 870 - Medications Medications: Current Medications Acetaminophen (Tylenol 325mg Tab) 650 mg PO Q6 PRN PRN Reason: Pain, Mild (1-3) Albuterol (Ventolin Hfa 90 Mcg/Actuation (8 G)) 1 puff IH RQ4 PRN PRN Reason: Wheezing Alprazolam (Xanax) 1 mg PO BID PRN PRN Reason: Anxiety Last Admin: 02/14/18 10:54 Dose: 1 mg Aspirin (Ecotrin) 325 mg PO DAILY [facility] Last Admin: 02/14/18 10:56 Dose: 325 mg Cyclobenzaprine HCl (Flexeril) 10 mg PO DAILY [facility] Last Admin: 02/14/18 10:54 Dose: 10 mg Digoxin (Digoxin) 0.125 mg PO 1800 [facility] Last Admin: 02/14/18 17:28 Dose: Not Given Diltiazem HCl (Cardizem) 30 mg PO QID [facility] Last Admin: 02/14/18 17:28 Dose: Not Given Famotidine (Pepcid) 20 mg PO DAILY [facility] Last Admin: 02/14/18 10:54 Dose: 20 mg Furosemide (Lasix) 40 mg PO DAILY [facility] Last Admin: 02/14/18 10:55 Dose: 40 mg Gabapentin (Neurontin) 300 mg PO TID [facility] Last Admin: 02/14/18 18:24 Dose: 300 mg Hydrochlorothiazide (Hydrodiuril) 50 mg PO HS [facility] Last Admin: 02/13/18 22:39 Dose: Not Given Hydromorphone HCl (Dilaudid) 1 mg IVP Q6H PRN PRN Reason: Pain, severe (8-10) Last Admin: 02/14/18 14:34 Dose: 1 mg Vancomycin/Sodium Chloride (Vancomycin 1 Gm/Ns 200 Ml) 1 gm in 200 mls @ 166.7 mls/hr IVPB Q24H [facility] PRN Reason: Protocol Stop: 02/16/18 10:01 Last Admin: 02/14/18 10:50 Dose: 166.7 mls/hr Ketorolac Tromethamine (Toradol) 30 mg IVP Q6H PRN PRN Reason: Pain, moderate (4-7) Last Admin: 02/11/18 06:49 Dose: 30 mg Levetiracetam (Keppra) 500 mg PO BID [facility] Last Admin: 02/14/18 18:24 Dose: 500 mg Montelukast Sodium (Singulair) 10 mg PO HS [facility] Last Admin: 02/13/18 22:39 Dose: Not Given Nicotine (Nicoderm Cq) 1 patch TD DAILY [facility] Last Admin: 02/14/18 10:54 Dose: 1 patch Oxycodone/Acetaminophen (Percocet 5/325 Mg Tab) 2 tab PO Q6H PRN PRN Reason: Pain, moderate (4-7) Stop: 02/14/18 20:09 Last Admin: 02/13/18 11:39 Dose: 2 tab Rosuvastatin Calcium (Crestor) 5 mg PO HS [facility] Last Admin: 02/13/18 22:39 Dose: Not Given Fluticasone/Salmeterol (Advair Diskus 250/50) 1 puff INH RQ12 [facility] Spironolactone (Aldactone) 25 mg PO DAILY [facility] Last Admin: 02/14/18 10:55 Dose: 25 mg - Labs Labs: 02/14/18 08:29 02/14/18 08:29 Assessment and Plan - Assessment and Plan (Free Text) Assessment: Right Leg Pain w/non-healing ulcer Patient has long standing hx of right LE edema and pain LE doppler (01/16/18): no DVTs in right/left LE Tylenol PRN Wound culture: MRSA Vancomycin 1gm IV Q24h (started on 02/11/18) Wound care- daily Atrial fibrillation EKG: Afib w/rvr @109bpm Continue home medications: * Cardizem 30mg QID * Digoxin 0.125mg PO daily * Continue to monitor with telemetry As per previous admission documentation, patient continually refuses anticoagulation Chest Pain: Cardiology consulted, Dr. Morgan, help appreciated Troponins ordered at [facility] on 02/08/18- 0.049, 0.0690 Troponins x3: 0.049, 0.060, 0.051 BNP 6530 D-dimer: 315 CTA: negative for PE Continue to monitor on telemetry Chronic Left Ventricular Systolic Dysfunction currently euvolemic refused AICD Hypertension * Continue home medications: * Lasix 40mg PO daily * Aldactone 25mg PO daily * HCTZ 50mg PO daily History of coronary artery disease Continue home medications: * Aspirin 325mg PO daily * Simvastatin 20mg PO daily History of psychiatric disorder Anxiety Continue home medication: * Xanax 1mg PO BID prn History of COPD Continue home medicaitons * Proair * Symbicort History of substance abuse * Cocaine use: UDS - positive for Cocaine *hold use of Beta Yonis --> takes Coreg 12.5 PO BID at home (per patient- "does not take his Coreg on the days he uses cocaine") Hx Intracranial bleed, splenic infarct * Head CT (01/05/18): no evidence of acute intracranial injury/fractures; large area of encephalomalacia in right occipital lobe, most compatible with chronic infarct * Brain MRI w/ and w/o (01/14/18) - No evidence of new foci of diffusion restriction in the brain. Re- demonstration of abnormal signal and enhancement at the right occipital lobe and medial inferior aspect of the right temporal lobe consistent with the patient's recent hemorrhagic infarction. Foci of hyperintense FLAIR and T2 signal seen in the periventricular region as described above. Small focal encephalomalacia at the left occipital lobe may represent old infarction. Episodes of Blurry Vision * Brain MRI w/ and w/o (01/14/18) - No evidence of new foci of diffusion restriction in the brain. Re- demonstration of abnormal signal and enhancement at the right occipital lobe and medial inferior aspect of the right temporal lobe consistent with the patient's recent hemorrhagic infarction. Foci of hyperintense FLAIR and T2 signal seen in the periventricular region as described above. Small focal encephalomalacia at the left occipital lobe may represent old infarction. Chronic pain * Tylenol PRN * Percocet prn for breakout pain * Dilaudid 1mg Q6hr for severe pain Morbid Obesity * BMI: 36.0 Prophylactic measure SCDs contraindicated due to b/l LE edema Pepcid 20mg PO BID Heart healthy diet Contact precautions- MRSA Case discussed with attending. All management per Dr. Ocampo.
[2018-02-15] MEDS: HYDROmorphone 0.5 mg/0.5 ml ISec IVP PRN ×3 (03:15→15:33)
--- NOTE | 2018-02-15 07:10 | CP.PCM.PN ---
Subjective - Date & Time of Evaluation Date of Evaluation: 02/15/18 Time of Evaluation: 07:09 Objective - Vital Signs/Intake and Output Vital Signs (last 24 hours): Temp Pulse Resp BP Pulse Ox 98.1 F 59 L 20 140/93 H 95 02/14/18 23:16 02/14/18 23:16 02/14/18 23:16 02/14/18 23:16 02/14/18 23:16 - Medications Medications: Current Medications Acetaminophen (Tylenol 325mg Tab) 650 mg PO Q6 PRN PRN Reason: Pain, Mild (1-3) Albuterol (Ventolin Hfa 90 Mcg/Actuation (8 G)) 1 puff IH RQ4 PRN PRN Reason: Wheezing Alprazolam (Xanax) 1 mg PO BID PRN PRN Reason: Anxiety Last Admin: 02/14/18 10:54 Dose: 1 mg Aspirin (Ecotrin) 325 mg PO DAILY [facility] Last Admin: 02/14/18 10:56 Dose: 325 mg Cyclobenzaprine HCl (Flexeril) 10 mg PO DAILY [facility] Last Admin: 02/14/18 10:54 Dose: 10 mg Digoxin (Digoxin) 0.125 mg PO 1800 [facility] Last Admin: 02/14/18 17:28 Dose: Not Given Diltiazem HCl (Cardizem) 30 mg PO QID [facility] Last Admin: 02/14/18 21:16 Dose: 30 mg Famotidine (Pepcid) 20 mg PO DAILY [facility] Last Admin: 02/14/18 10:54 Dose: 20 mg Furosemide (Lasix) 40 mg PO DAILY [facility] Last Admin: 02/14/18 10:55 Dose: 40 mg Gabapentin (Neurontin) 300 mg PO TID [facility] Last Admin: 02/14/18 18:24 Dose: 300 mg Hydrochlorothiazide (Hydrodiuril) 50 mg PO HS [facility] Last Admin: 02/14/18 21:16 Dose: 50 mg Hydromorphone HCl (Dilaudid) 1 mg IVP Q6H PRN PRN Reason: Pain, severe (8-10) Last Admin: 02/15/18 03:15 Dose: 1 mg Vancomycin/Sodium Chloride (Vancomycin 1 Gm/Ns 200 Ml) 1 gm in 200 mls @ 166.7 mls/hr IVPB Q24H [facility] PRN Reason: Protocol Stop: 02/16/18 10:01 Last Admin: 02/14/18 10:50 Dose: 166.7 mls/hr Ketorolac Tromethamine (Toradol) 30 mg IVP Q6H PRN PRN Reason: Pain, moderate (4-7) Last Admin: 02/11/18 06:49 Dose: 30 mg Levetiracetam (Keppra) 500 mg PO BID [facility] Last Admin: 02/14/18 18:24 Dose: 500 mg Montelukast Sodium (Singulair) 10 mg PO HS [facility] Last Admin: 02/14/18 21:16 Dose: 10 mg Nicotine (Nicoderm Cq) 1 patch TD DAILY [facility] Last Admin: 02/14/18 10:54 Dose: 1 patch Rosuvastatin Calcium (Crestor) 5 mg PO [facility] Last Admin: 02/14/18 21:16 Dose: 5 mg Fluticasone/Salmeterol (Advair Diskus 250/50) 1 puff INH RQ12 [facility] Spironolactone (Aldactone) 25 mg PO DAILY [facility] Last Admin: 02/14/18 10:55 Dose: 25 mg - Labs Labs: 02/14/18 08:29 02/14/18 08:29
[2018-02-15 08:36] LABS: BASO # 0.1 K/uL (0.0-0.2); BASO % 0.7 % (0.0-2.0); EOS # 0.5 K/uL (0.0-0.7); EOS % 5.7 % (0.0-4.0); HEMOGLOBIN 14.7 g/dL (12.0-18.0); LYMPH # 1.9 K/uL (1.0-4.3); MEAN CELL VOLUME 82.8 fL (80.0-94.0); MEAN CORPUSCULAR HEMOGLOBIN 27.3 pg (27.0-31.0); MEAN PLATELET VOLUME 8.3 fL (7.2-11.7); MONO # 1.1 K/uL (0.0-0.8); MONO % 11.8 % (0.0-10.0); NEUT % 61.8 % (50.0-75.0); NRBC % 0.1 % (0.0-2.0); RBC 5.4 Mil/uL (4.40-5.90); RED CELL DISTRIBUTION WIDTH 18.3 % (11.5-14.5); WHITE BLOOD COUNT 9.7 K/uL (4.8-10.8)
[2018-02-15 08:47] LABS: ALB/GLOB RATIO 0.9 (1.0-2.1); ALBUMIN 4.1 g/dL (3.5-5.0); ALT/SGPT 29 U/L (21-72); AST/SGOT 37 U/L (17-59); BLOOD UREA NITROGEN 25 mg/dL (9-20); CALCIUM 9.3 mg/dl (8.6-10.4); GFR AFRICAN-AMERICAN > 60; GFR NON-AFRICAN AMERICAN > 60
[2018-02-15] MEDS: Aspirin 325 mg EC Tablets PO SCH (09:35)
[2018-02-15] MEDS: Vancomycin 1 gm/NS 200 ml 1 GM/200 ML BAG IVPB SCH (09:39)
[2018-02-15 15:47] VITALS: BP 133/75
[2018-02-15 16:19] VITALS: PULSE 80; RESP 20; TEMP 97.8; O2SAT 96
--- NOTE | 2018-02-15 16:26 | CP.PCM.DIS ---
Provider - Provider Date of Admission: 02/11/18 15:56 Attending physician: Roque Ocampo Jr, MD Primary care physician: Dr. Ocampo Consults: Cardiology: Dr. Morgan Time Spent in preparation of Discharge (in minutes): 45 Hospital Course - Lab Results Lab Results: Micro Results 02/14/18 11:16 Urine,Clean Catch Urine Culture - Final No Growth (<1,000 CFU/ML) 02/08/18 18:10 Leg - Right Gram Stain - Final 02/08/18 18:10 Leg - Right Wound Culture - Final Methicillin Resistant S Aureus Most Recent Lab Values WBC 9.7 K/uL (4.8-10.8) 02/15/18 08:26 RBC 5.40 Mil/uL (4.40-5.90) 02/15/18 08:26 Hgb 14.7 g/dL (12.0-18.0) 02/15/18 08:26 Hct 44.7 % (35.0-51.0) 02/15/18 08:26 MCV 82.8 fL (80.0-94.0) 02/15/18 08:26 MCH 27.3 pg (27.0-31.0) 02/15/18 08:26 MCHC 33.0 g/dL (33.0-37.0) 02/15/18 08:26 RDW 18.3 % (11.5-14.5) H 02/15/18 08:26 Plt Count 247 K/uL (130-400) 02/15/18 08:26 MPV 8.3 fL (7.2-11.7) 02/15/18 08:26 Neut % (Auto) 61.8 % (50.0-75.0) 02/15/18 08:26 Lymph % (Auto) 20.0 % (20.0-40.0) 02/15/18 08:26 [place] % (Auto) 11.8 % (0.0-10.0) H 02/15/18 08:26 Eos % (Auto) 5.7 % (0.0-4.0) H 02/15/18 08:26 Baso % (Auto) 0.7 % (0.0-2.0) 02/15/18 08:26 Neut # (Auto) 6.0 K/uL (1.8-7.0) 02/15/18 08:26 Lymph # (Auto) 1.9 K/uL (1.0-4.3) 02/15/18 08:26 [place] # (Auto) 1.1 K/uL (0.0-0.8) H 02/15/18 08:26 Eos # (Auto) 0.5 K/uL (0.0-0.7) 02/15/18 08:26 Baso # (Auto) 0.1 K/uL (0.0-0.2) 02/15/18 08:26 D-Dimer, Quantitative 315 ng/mlDDU (0-243) H 02/10/18 00:41 Sodium 139 mmol/L (132-148) 02/15/18 08:26 Potassium 4.4 mmol/L (3.6-5.2) 02/15/18 08:26 Chloride 99 mmol/L (98-107) 02/15/18 08:26 Carbon Dioxide 26 mmol/L (22-30) 02/15/18 08:26 Anion Gap 19 (10-20) 02/15/18 08:26 BUN 25 mg/dL (9-20) H 02/15/18 08:26 Creatinine 1.1 mg/dL (0.8-1.5) 02/15/18 08:26 Est GFR ( Amer) > 60 02/15/18 08:26 Est GFR (Non-Af Amer) > 60 02/15/18 08:26 POC Glucose (mg/dL) 185 mg/dL (65-110) H 02/14/18 12:15 Random Glucose 88 mg/dL (75-110) 02/15/18 08:26 Calcium 9.3 mg/dl (8.6-10.4) 02/15/18 08:26 Phosphorus 4.2 mg/dL (2.5-4.5) 02/15/18 08:26 Magnesium 1.9 mg/dL (1.6-2.3) 02/15/18 08:26 Total Bilirubin 0.6 mg/dL (0.2-1.3) 02/15/18 08:26 AST 37 U/L (17-59) 02/15/18 08:26 ALT 29 U/L (21-72) 02/15/18 08:26 Alkaline Phosphatase 84 U/L (38-126) 02/15/18 08:26 Total Creatine Kinase 109 U/L (55-170) 02/10/18 08:39 CK-MB (Mass) 4.18 ng/mL (0.0-3.38) H 02/10/18 08:39 Troponin I 0.0510 ng/mL (0.00-0.120) 02/10/18 08:39 NT-Pro-B Natriuret Pep 6530 pg/mL (0-450) H 02/09/18 17:31 Total Protein 8.9 g/dL (6.3-8.3) H 02/15/18 08:26 Albumin 4.1 g/dL (3.5-5.0) 02/15/18 08:26 Globulin 4.8 gm/dL (2.2-3.9) H 02/15/18 08:26 Albumin/Globulin Ratio 0.9 (1.0-2.1) L 02/15/18 08:26 Urine Color Yellow (YELLOW) 02/14/18 11:45 Urine Clarity Hazy (Clear) 02/14/18 11:45 Urine pH 5.0 (5.0-8.0) 02/14/18 11:45 Ur Specific [place] 1.017 (1.003-1.030) 02/14/18 11:45 Urine Protein Negative mg/dL (NEGATIVE) 02/14/18 11:45 Urine Glucose (UA) Normal mg/dL (Normal) 02/14/18 11:45 Urine Ketones Negative mg/dL (NEGATIVE) 02/14/18 11:45 Urine Blood Negative (NEGATIVE) 02/14/18 11:45 Urine Nitrate Negative (NEGATIVE) 02/14/18 11:45 Urine Bilirubin Negative (NEGATIVE) 02/14/18 11:45 Urine Urobilinogen Normal mg/dL (0.2-1.0) 02/14/18 11:45 Ur Leukocyte Esterase Neg Nancie/uL (Negative) 02/14/18 11:45 Urine WBC (Auto) 1 /hpf (0-5) 02/14/18 11:45 Urine RBC (Auto) 1 /hpf (0-3) 02/14/18 11:45 Ur Squamous Epith Cells < 1 /hpf (0-5) 02/09/18 17:40 Hyaline Casts 3-5 /lpf (0-2) H 02/14/18 11:45 Digoxin < 0.4 ng/mL (0.8-2.0) L 02/09/18 17:31 Urine Opiates Screen Negative (NEGATIVE) 02/10/18 00:42 Urine Methadone Screen Negative (NEGATIVE) 02/10/18 00:42 Ur Barbiturates Screen Negative (NEGATIVE) 02/10/18 00:42 Ur Phencyclidine Scrn Negative (NEGATIVE) 02/10/18 00:42 Ur Amphetamines Screen Negative (NEGATIVE) 02/10/18 00:42 U Benzodiazepines Scrn Positive (NEGATIVE) 02/10/18 00:42 U Oth Cocaine Metabols Positive (NEGATIVE) H 02/10/18 00:42 U Cannabinoids Screen Negative (NEGATIVE) 02/10/18 00:42 - Hospital Course Hospital Course: HPI: Patient is a 47 year old male with past medical history of anxiety /depression, asthma, afib, chronic back pain, CAD, CHF, CVA, COPD, HTN, HLD, chronic LE edema and substance abuse, who presents to the ED with complaints of right LE pain and swelling. Patient has several admissions to [facility] for similar complaints, as well as just discharged from [facility] yesterday. He has had chronic lower extremity edema and ulcers that he states is very painful and tender to touch. He states that it was cleaned and treated at [facility] yesterday. While he was at [facility], he also complained of chest pain for which labs were drawn and cardiology was consulted. Patient also states he had chest pain today prior to coming to the hospital. He said he became anxious, had palpitations, and chest pain in the center of his chest that worsened with respirations. The pain resolved after one hour. Patient has a history of cocaine use, last use was 2-3 days prior. He states he is compliant with all medications and took all of his medications this morning. Patient currently denies chest pain, dyspnea, n/v, fever, headaches, dysuria, constipation/diarrhea, and abdominal pain. PMD: Dr. Ocampo Plasterer Maintenance: Dr. Morgan PMHx: anxiety/depression, asthma, afib, chronic back pain, CAD, CHF, CVA, COPD, HTN, HLD, chronic LE edema and substance abuse SurgHx: Appendectomy, 2009; 4 cardiac stents () FamHx: Mother- DM, Heart failure, arthritis Medications: See EMR for medication list Allergies: Apixaban, Plavix, Lovenox, Morphine and warfarin SocHx: smokes 1pack cigarettes/month ("only when he does cocaine"); quit smoking 9 months ago; former heavy smoker since 9 years old); denies alcohol; + cocaine use (last use 2-3 days ago) Hospital Course: Patient was admitted for right lower extremity pain with nonhealing ulcer and chest pain. In the ED, the troponin was negative with 0.049. Patient was moved to telemetry for continuous monitoring. Sequential troponins were also negative with 0.060 and 0.051. EKG showed atrial fibrillation with competing junctional pacemaker with premature ventricular or aberrantly conducted complexes, left anterior fascicular block, inferior-posterior infarct, and right ventricular involvement in acute inferior infarct. Chest X-ray showed moderate pulmonary venous congestion and cardiomegaly. BNP level showed 6530 and D-dimer was 315. Dr. Morgan was consulted, but the patient refused any type of anticoagulation and AICD. Patient continuously removed telemetry during hospital course. UDS was positive for cocaine. Regarding his right leg pain, wound culture showed MRSA (place on contact precautions), and patient was placed on Vancomycin 1gm IV. LE Doppler done on 01/16/18 showed no DVTs in the lower extremities bilaterally. CTA showed no pulmonary embolus, stable bilateral pulmonary nodules , the largest of which measures 11mm in LLL, and grossly stable nonspecific mediastinal lymphadenopathy, measuring up to 2.6cm. Patient was placed on wound care daily. Of note, patient was also placed on contact precautions for possibility of bed bugs. Upon discharge: Patient stable for discharge per Dr. Ocampo. Patient was discharged on Benadryl, Clindamycin, and SurePress compression stockings and was instructed to continue all home medications. He was told to follow up with Dr. Ocampo. Please note that this is a summary of events. For more details, please see complete medical record. Discharge Exam - Head Exam Head Exam: ATRAUMATIC, NORMAL INSPECTION - Additional Findings Additional findings: - Head Exam Head Exam: ATRAUMATIC, NORMAL INSPECTION - Eye Exam Eye Exam: EOMI, Normal appearance Pupil Exam: PERRL - ENT Exam ENT Exam: Mucous Membranes Moist - Respiratory Exam Respiratory Exam: Decreased Breath Sounds, NORMAL BREATHING PATTERN. absent: Rhonchi, Wheezes, Respiratory Distress - Cardiovascular Exam Cardiovascular Exam: Tachycardia, Irregular Rhythm, +S1, +S2 - GI/Abdominal Exam GI & Abdominal Exam: Distended, Firm, Normal Bowel Sounds. absent: Tenderness - Extremities Exam Extremities exam: Positive for: pedal edema, tenderness (Right LE), pedal pulses present (B/L). Negative for: calf tenderness Additional comments: Right LE: erythematous, non healing ulcers noted; tender to touch. warm. no purulent discharge. pulses palpable Left LE: venous stasis, edema, pulses present. - Neurological Exam Neurological exam: Alert, Oriented x3 - Psychiatric Exam Psychiatric exam: Anxious - Skin Skin Exam: Dry, Warm Discharge Plan - Discharge Medications Prescriptions: Clindamycin [Cleocin] 300 mg PO TID #30 cap DiphenhydrAMINE [Benadryl] 25 mg PO Q8 PRN 30 Days cap PRN Reason: Itching / Pruritus Silver Sulfadiazine [Silvadene] 400 gm TP TID #1 cream..g. - Follow Up Plan Condition: STABLE Disposition: HOME/ ROUTINE Instructions: Clindamycin (Systemic), Diphenhydramine (Systemic), Chest Pain ( DC), Silver Sulfadiazine, Heart Failure (DC), Anxiety (DC) Additional Instructions: Patient is stable for discharge to home as per Dr. Ocampo. Patient must continue home medications. Patient must take new medications as prescribed: 1. Clindamycin 300mg Q8h for 10 days 2. Silvadene: apply daily to affected area TID 3. Benadryl 25mg PO Q8h as needed for itching 4. SurePress compression wrap (will receive at home on Thursday) Patient must follow up with the PMD, Dr. Ocampo, within 1-2 weeks of discharge. If symptoms reoccur or worsen, patient should return to the ED.
== END 2018-02-15 17:55 | disposition home or self-care (01) | DRG 638 ==
LOC: C.ER 16:27 → C.9E 18:11 → C.6T 19:18 → C.5S 02-11 13:03 → OBSVTOIN 02-11 15:56 → C.5S 02-12 22:15
PROVIDERS: ADMIT Internal Medicine; ATTEND Internal Medicine
DX: E11.622 Type 2 diabetes mellitus with other skin ulcer (principal); L97.819 Non-pressure chronic ulcer of other part of right lower leg with unspecified severity; G93.89 Other specified disorders of brain; I11.0 Hypertensive heart disease with heart failure; I50.9 Heart failure, unspecified; I42.0 Dilated cardiomyopathy; E66.01 Morbid (severe) obesity due to excess calories; I48.91 Unspecified atrial fibrillation; J44.9 Chronic obstructive pulmonary disease, unspecified; I25.10 Atherosclerotic heart disease of native coronary artery without angina pectoris; F41.9 Anxiety disorder, unspecified; F31.9 Bipolar disorder, unspecified; F14.90 Cocaine use, unspecified, uncomplicated; E78.5 Hyperlipidemia, unspecified; G89.29 Other chronic pain; G47.30 Sleep apnea, unspecified; E78.00 Pure hypercholesterolemia, unspecified; I87.2 Venous insufficiency (chronic) (peripheral); R91.8 Other nonspecific abnormal finding of lung field; M19.90 Unspecified osteoarthritis, unspecified site; F17.210 Nicotine dependence, cigarettes, uncomplicated; R59.0 Localized enlarged lymph nodes; Z68.36 Body mass index [BMI] 36.0-36.9, adult; Z86.73 Personal history of transient ischemic attack (TIA), and cerebral infarction without residual deficits; Z91.19 Patient's noncompliance with other medical treatment and regimen; Z95.5 Presence of coronary angioplasty implant and graft; Z87.01 Personal history of pneumonia (recurrent); Z90.49 Acquired absence of other specified parts of digestive tract; Z79.4 Long term (current) use of insulin; Z79.82 Long term (current) use of aspirin

== ENCOUNTER 2018-12-06 00:11 | Emergency (ER) | payer MEDICARE, MEDICAID ==
[2018-12-06 00:11] VITALS: PULSE 72; BMI 44.4
[2018-12-06 00:35] VITALS: RESP 16; O2SAT 98
--- NOTE | 2018-12-06 01:05 | C.PDOC ---
History Of Present Illness 48 y/o male with a PMHx of CHF and peripheral edema presents to the ED complaining of bilateral leg swelling, ongoing for months. OF note patient was recently admitted and discharged home from [facility] this morning for the same. He denies any SOB, chest pain, fevers, rash, numbness, weakness, or calf pain. No changes or new complaints. Time Seen by Provider: 12/06/18 00:30 Chief Complaint (Nursing): Lower Extremity Problem/Injury History Per: Patient History/Exam Limitations: no limitations Onset/Duration Of Symptoms: Days Current Symptoms Are (Timing): Still Present Recent travel outside of the [place]: No Past Medical History Reviewed: Historical Data, Nursing Documentation, Vital Signs Vital Signs: Last Vital Signs Temp 97.3 F L 12/06/18 00:26 Pulse 82 12/06/18 00:26 Resp 16 12/06/18 00:26 BP 133/97 H 12/06/18 00:26 Pulse Ox 98 12/06/18 00:26 - Medical History PMH: Anxiety, Arthritis, Asthma, Atrial Fibrillation, Back Problems, Bipolar Disorder, CAD, Cardia Arrhythmia, CHF, COPD, CVA, Depression, HTN, Hypercholesterolemia, Peripheral Edema, Pneumonia, Sleep Apnea, Chronic Pain (Lower Back Pain) Denies: HIV, Chronic Kidney Disease Surgical History: Appendectomy (2008), Coronary Stent (2008 - 2012 4 stents) - [facility] Procedures CORONAR ARTERIOGR-2 CATH (07/06/13) DRAINAGE OF SPLEEN, PERCUTANEOUS APPROACH (03/05/17) INJECT/INFUSE NEC (02/22/14) LEFT HEART CARDIAC CATH (07/06/13) LT HEART ANGIOCARDIOGRAM (07/06/13) NEBULIZER THERAPY (03/28/14) NON-INVASIVE MECHANICAL VENTILATION (03/26/15) TRANSFUSE NONAUT FROZEN PLASMA IN PERIPH VEIN, PERC (02/21/17) Family History: States: CAD, Diabetes - Social History Hx Tobacco Use: Yes Hx Alcohol Use: No Hx Substance Use: Yes - Immunization History Hx Tetanus Toxoid Vaccination: No Hx Influenza Vaccination: Yes Hx Pneumococcal Vaccination: Yes (08/2014) Review Of Systems Constitutional: Negative for: Fever Eyes: Negative for: Vision Change Cardiovascular: Negative for: Chest Pain, Palpitations Respiratory: Negative for: Cough, Shortness of Breath Gastrointestinal: Negative for: Vomiting Musculoskeletal: Positive for: Other (Bilateral leg swelling). Negative for: Leg Pain Skin: Negative for: Rash, Lesions Neurological: Negative for: Weakness, Numbness, Incoordination Physical Exam - Physical Exam Appears: Non-toxic, No Acute Distress Skin: Warm, Dry, No Rash Head: Atraumatic, Normacephalic Eye(s): bilateral: Normal Inspection, PERRL, EOMI Oral Mucosa: Moist Neck: Normal ROM Chest: Symmetrical, No Tenderness Cardiovascular: Rhythm Irregular Respiratory: Normal Breath Sounds (Lungs CTA bilaterally), No Rales, No Rhonchi, No Wheezing Gastrointestinal/Abdominal: Soft, No Tenderness, No Distention Extremity: Normal ROM, No Calf Tenderness, No Deformity, Swelling (+/- edema to bilateral LE) Pulses: Left Dorsalis Pedis: Normal, Right Dorsalis Pedis: Normal Neurological/Psych: Oriented x3 ED Course And Treatment O2 Sat by Pulse Oximetry: 98 (RA) Pulse Ox Interpretation: Normal Progress Note: Patient given dose of Lasix in the ER. Advised to take medications as prescribed and follow up with his PMD. Disposition Counseled Patient/Family Regarding: Diagnosis - Disposition Referrals: [facility] [Outside] Disposition Time: 01:03 Condition: STABLE Additional Instructions: TO TAKE LASIX REGULARLY Instructions: Dependent Edema (DC) Forms: [facility] (Maldivian) - POA Present On Arrival: None - Clinical Impression Clinical Impression: Leg edema - Scribe Statement The provider has reviewed the documentation as recorded by the Lashawnibpradeep Umaña Provider Attestation: All medical record entries made by the Lashawnibpradeep were at my direction and personally dictated by me. I have reviewed the chart and agree that the record accurately reflects my personal performance of the history, physical exam, medical decision making, and the department course for this patient. I have also personally directed, reviewed, and agree with the discharge instructions and disposition.
[2018-12-06 01:36] VITALS: BP 131/89; PULSE 84; TEMP 97.5
== END 2018-12-06 02:48 | disposition home or self-care (01) ==
LOC: C.ER 00:11
DX: R60.0 Localized edema (principal)
CPT/HCPCS: 96374; 99284; J1940

== ENCOUNTER 2019-02-06 19:55 | Inpatient (IN) | payer MEDICARE, MEDICAID | END 2019-02-11 19:45 | disposition home or self-care (01) | LOC: C.6T 02-08 22:59 → C.ER 19:55 → C.9E 21:52 → C.6T 23:43 → C.9E 23:43 → C.6T 23:50 ==

== ENCOUNTER 2019-02-20 16:14 | Observation (INO) | payer MEDICARE, MEDICAID ==
[2019-02-20 16:14] VITALS: BMI 44.4
--- NOTE | 2019-02-20 16:21 | C.PDOC ---
History Of Present Illness 48 yr old male w/ hx of Atrial Fibrillation, CAD w/ 5 stents on plavix + ASA, CHF, COPD on 2L home o2, CVA, HTN, HLD, Anxiety, Bipolar Disorder, hx of drug abuse p/w shortness of breath and chest pain. Pt notes x5d of chest pain, center of chest, without radiation and anxiety. He notes the chest pain feels like when he had to get a stent previously vs when he had rapid afib. He denies any fall or trauma. He notes b/l LE edema however. No weakness, slurred speech, fever, chills or night sweats but pt notes non-productive cough. No abdominal pain. No constipation or diarrhea. No dark or bloody stool. No SI or HI or depression. He notes that he took his ASA 325mg and his plavix today. No other complaints. Time Seen by Provider: 02/20/19 16:20 Chief Complaint (Nursing): Chest Pain Past Medical History - Medical History PMH: Anxiety, Arthritis, Asthma, Atrial Fibrillation, Back Problems, Bipolar Disorder, CAD, Cardia Arrhythmia, CHF, COPD, CVA, Depression, HTN, Hypercholesterolemia, Peripheral Edema, Pneumonia, Sleep Apnea, Chronic Pain (Lower Back Pain) Denies: HIV, Chronic Kidney Disease Surgical History: Appendectomy (2008), Coronary Stent (2008 - 2012 4 stents) - [facility] Procedures CORONAR ARTERIOGR-2 CATH (07/06/13) DRAINAGE OF SPLEEN, PERCUTANEOUS APPROACH (03/05/17) INJECT/INFUSE NEC (02/22/14) LEFT HEART CARDIAC CATH (07/06/13) LT HEART ANGIOCARDIOGRAM (07/06/13) NEBULIZER THERAPY (03/28/14) NON-INVASIVE MECHANICAL VENTILATION (03/26/15) TRANSFUSE NONAUT FROZEN PLASMA IN PERIPH VEIN, PERC (02/21/17) Family History: States: CAD, Diabetes - Social History Hx Tobacco Use: Yes Hx Alcohol Use: No Hx Substance Use: Yes - Immunization History Hx Tetanus Toxoid Vaccination: No Hx Influenza Vaccination: Yes Hx Pneumococcal Vaccination: Yes (08/2014) Review Of Systems Constitutional: Negative for: Fever, Chills, Sweats, Weakness, Malaise, Weight loss Eyes: Negative for: Pain, Vision Change, Conjunctivae Inflammation ENT: Negative for: Ear Pain, Ear Discharge, Nose Pain, Nose Discharge, Nose Congestion, Mouth Pain, Mouth Swelling, Throat Pain Cardiovascular: Positive for: Chest Pain, Palpitations, Edema Respiratory: Positive for: Cough, Shortness of Breath. Negative for: Hemo ptysis, Pleuritic Pain, Sputum, Wheezing Gastrointestinal: Negative for: Nausea, Vomiting, Abdominal Pain, Diarrhea, Constipation, Melena, Hematochezia, Hematemesis Genitourinary: Negative for: Dysuria, Frequency, Incontinence, Hematuria, Penile Discharge, Scrotal Pain Musculoskeletal: Negative for: Neck Pain, Shoulder Pain, Arm Pain Skin: Negative for: Rash, Lesions, Jaundice Neurological: Negative for: Weakness, Numbness, Altered Mental Status, Headache Physical Exam - Physical Exam Appears: Well, Non-toxic, No Acute Distress Skin: Normal Color, Warm Head: Atraumatic, Normacephalic Eye(s): bilateral: Normal Inspection, PERRL, EOMI Ear(s): Bilateral: Normal Nose: Normal, No Flaring, No Discharge Oral Mucosa: Moist Tongue: Normal Appearing, No Swelling Lips: Normal Appearing Throat: Normal, No Erythema, No Exudate, No Drooling Neck: Normal, Normal ROM, No Midline Cervical Tenderness, Supple, Other (no meningeal signs) Lymphatic: Normal Exam Chest: Symmetrical Cardiovascular: Rhythm Regular Respiratory: Normal Breath Sounds, No Decreased Breath Sounds, No Accessory Muscle Use, No Rales, No Rhonchi, No Stridor, No Wheezing, No Plerual Rub, No Other Gastrointestinal/Abdominal: Normal Exam, Soft, No Tenderness, No Mass Back: Normal Inspection, No CVA Tenderness, No Vertebral Tenderness Extremity: Normal ROM, No Tenderness, No Deformity, Swelling (b/l LE, 1+ pitting) Pulses: Left Dorsalis Pedis: Normal, Right Dorsalis Pedis: Normal Neurological/Psych: Oriented x3, Normal Speech, Normal Cognition Gait: Steady ED Course And Treatment - Laboratory Results Result Diagrams: 02/20/19 17:48 02/20/19 17:48 Medical Decision Making Medical Decision Makin yr old male w/ extensive cardiac history, currently on plavix, ASA 325, took plavix and ASA today p/w sob and chest pain. no CP radiating to back. No fall or trauma. B/L LE edema concerning for CHF. Given extensive cardiac history, will likely require inpatient evaluation for serial troponins, echo. No wheezes noted on exam. PMd: Terrence: Puma: Eddie EKG: afib 114, no stemi 1851 Afib in the 105-90s on the monitor Pt requesting multiple nurses for IV stick. Seen by 2 nurses and was noted to be rude towards staff. I endorsed the need for cooperation and he endorsed understanding. Additional nurses to attempt iv placement. He denies any complaints at this time and is otherwise comfortable. 1st trop unremarkable. bnp unremarkable labs largely unremarkable and xray unremarkable appreciate consult w/ DR. Ocampo: to admit to his service and contact medical office worker endorsed to medical office worker marketing communications assistant pt in NAD, agreeable to plan. Disposition - Disposition Disposition: HOSPITALIZED Disposition Time: 18:54 Condition: STABLE Forms: [facility] (Norwegian) - Clinical Impression Clinical Impression: Chest pain, Shortness of breath
[2019-02-20] MEDS ORDERED: Albuterol-Ipratrop 3 mg / 0.5 (3 ml) UD INH STA (16:33)
[2019-02-20] MEDS ORDERED: Albuterol-Ipratrop 3 mg / 0.5 (3 ml) UD ONE (16:59)
--- NOTE | 2019-02-20 17:47 | RAD ---
Date of service: 02/20/2019 HISTORY: sob / cp COMPARISON: 02/09/2019 TECHNIQUE: Chest PA and lateral views FINDINGS: LUNGS: No active pulmonary disease. PLEURA: No significant pleural effusion identified. No pneumothorax apparent. CARDIOVASCULAR: No aortic atherosclerotic calcification present. Normal cardiac size. No pulmonary vascular congestion. OSSEOUS STRUCTURES: No significant abnormalities. VISUALIZED UPPER ABDOMEN: Normal. OTHER FINDINGS: None. IMPRESSION: No active disease.
[2019-02-20 17:51] LABS: BASO # 0.1 K/uL (0.0-0.2); EOS # 0.3 K/uL (0.0-0.7); EOS % 2.8 % (0.0-4.0); HEMOGLOBIN 14.3 g/dL (12.0-18.0); LYMPH # 2.3 K/uL (1.0-4.3); MEAN CELL VOLUME 87.1 fL (80.0-94.0); MEAN CORPUSCULAR HEMOGLOBIN 28.7 pg (27.0-31.0); MONO # 1.1 K/uL (0.0-0.8); MONO % 10.2 % (0.0-10.0); RBC 4.98 Mil/uL (4.40-5.90); RED CELL DISTRIBUTION WIDTH 16.9 % (11.5-14.5); WHITE BLOOD COUNT 10.8 K/uL (4.8-10.8)
[2019-02-20 17:56] LABS: VENOUS BLOOD GAS BASE EXCESS 0.6 mmol/L (0.0-2.0); VENOUS BLOOD GAS PCO2 47 mmHg (40-60); VENOUS BLOOD GAS PO2 33 mm/Hg (30-55); VENOUS BLOOD PH 7.36 (7.32-7.43)
[2019-02-20 18:15] LABS: B-TYPE NATRIURETIC PEPTIDE 845 pg/mL (0-900)
[2019-02-20 18:16] LABS: ALB/GLOB RATIO 1.2 (1.0-2.1); ALBUMIN 4.1 g/dL (3.5-5.0); ALT/SGPT 22 U/L (21-72); AST/SGOT 27 U/L (17-59); BLOOD UREA NITROGEN 26 mg/dL (9-20); CALCIUM 9.4 mg/dl (8.6-10.4); GFR NON-AFRICAN AMERICAN > 60
--- NOTE | 2019-02-20 19:36 | CP.PCM.HP ---
History of Present Illness - History of Present Illness History of Present Illness: H&P for Dr. Ocampo 48 M w/ PMhx of CAD s/p stent (most recent 12/2018 at [facility]), HTN, Chronic back pain, anxiety/depression, asthma, afib, CHF, CVA, chronic LE edema presents to hospital for chest pain & shortness of breath for the past 5 days. Chest pain is located in the midsternal area and feels like 9/10 pressure and sharp pain. It is intermittent. Pain does not radiate. Pain worsens with sitting down and improves with gabapentin 300mg. Associated symptoms include lower extremity edema for the past 2 days, rapid heart beat, cough with green sputum, headache, chills, sore throat, and soft bowel movements. PMD: Terrence PMhx: CAD s/p stent (most recent 12/2018 at [facility]), HTN, Chronic back pain, anxiety/depression, asthma, afib, CHF, CVA, chronic LE edema PSHx: Appendectomy, 2008; 5 cardiac stents (2008-), bilateral knee surgery FHx: Mother- DM, Heart failure, arthritis, [place] Meds: See EMR Allergies: apixaban, clopidogrel, enoxaparin, morphine, warfarin SHx: former smoker 1ppd for 35 years, denies ETOH use, reports cocaine use one week ago Review of Systems: -Gen: No fever, + chills, No headache, No lethargy, No weakness. -HEENT: No dizziness, No change in vision, No change in hearing, No sore throat, No dysphagia, No nasal congestion, No mucous. -Cardio: + chest pain, No palpitations, No lower extremity edema, No orthopnea. -Resp: + cough, + dyspnea, No hemoptysis, No wheezing, No pain on inspiration. -GI: No abdominal pain, No nausea/vomiting, No diarrhea/constipation, No hematochezia, No hematemesis. -: No dysuria, No urinary freq, No incontinence, No hematuria, No change in urinary stream. -MSK: + L leg pain,No back pain, No muscle weakness, No radiating pain. -Skin: No itching, No rash, No lesions. -Neuro: No confusion, No numbness, No tingling, No focal weakness, No radicular pain, No syncope. -Psych: No anxiety, No depression, No H/I, No S/I, No hallucinations. Present on Admission - Present on Admission Any Indicators Present on Admission: No Past Patient History - Infectious Disease Hx of Infectious Diseases: None - Tetanus Immunizations Tetanus Immunization: Up to Date - Past Medical History & Family History Past Medical History?: Yes - Past Social History Smoking Status: Former Smoker - CARDIAC Hx Atrial Fibrillation: Yes Hx Cardia Arrhythmia: Yes Hx Congestive Heart Failure: Yes Hx Hypercholesterolemia: Yes Hx Hypertension: Yes Hx Peripheral Edema: Yes - PULMONARY Hx Asthma: Yes Hx Chronic Obstructive Pulmonary Disease (COPD): Yes Hx Pneumonia: Yes Hx Sleep Apnea: Yes - NEUROLOGICAL HX Cerebrovascular Accident: Yes - RENAL Hx Chronic Kidney Disease: No - HEMATOLOGICAL/ONCOLOGICAL Hx Human Immunodeficiency Virus (HIV): No - INTEGUMENTARY Hx Dermatological Problems: Yes - MUSCULOSKELETAL/RHEUMATOLOGICAL Hx Arthritis: Yes - GASTROINTESTINAL Hx Gastrointestinal Disorders: Yes Other/Comment: Splenic Hematoma - GENITOURINARY/GYNECOLOGICAL Hx Genitourinary Disorders: No - PSYCHIATRIC Hx Anxiety: Yes Hx Bipolar Disorder: Yes Hx Depression: Yes Hx Substance Use: Yes - SURGICAL HISTORY Hx Appendectomy: Yes (2008) Hx Coronary Stent: Yes (2008 - 2012 4 stents) - ANESTHESIA Hx Anesthesia: Yes Hx Anesthesia Reactions: No Hx Malignant Hyperthermia: No Meds Allergies/Adverse Reactions: Allergies Allergy/AdvReac Type Severity Reaction Status Date / Time apixaban [From Eliquis] Allergy RASH Verified 02/06/19 20:08 clopidogrel bisulfate Allergy RASH Verified 02/06/19 20:08 [From Plavix] enoxaparin sodium Allergy RASH Verified 02/06/19 20:08 [From Lovenox] morphine Allergy RASH Verified 02/06/19 20:08 warfarin Allergy RASH Verified 02/06/19 20:08 Physical Exam - Constitutional Appears: No Acute Distress - Head Exam Head Exam: ATRAUMATIC, NORMOCEPHALIC - Eye Exam Eye Exam: EOMI, PERRL - ENT Exam ENT Exam: Mucous Membranes Moist - Neck Exam Neck exam: Positive for: Full Rom. Negative for: Lymphadenopathy - Respiratory Exam Respiratory Exam: Decreased Breath Sounds. absent: Rales, Rhonchi, Wheezes - Cardiovascular Exam Cardiovascular Exam: Irregular Rhythm, +S1, +S2 - GI/Abdominal Exam GI & Abdominal Exam: Normal Bowel Sounds, Soft. absent: Tenderness - Extremities Exam Extremities exam: Positive for: full ROM, normal inspection, pedal pulses present (PD weak bilaterally). Negative for: joint swelling Additional comments: LLE tenderness to palpation- no asymmetrical swelling, erythema, warmth or palpable cord. - Neurological Exam Neurological exam: Alert, Oriented x3 Additional comments: Somnolent, but easily arousable. - Psychiatric Exam Psychiatric exam: Normal Affect, Normal Mood - Skin Skin Exam: Dry, Normal Color, Warm Results - Vital Signs Recent Vital Signs: Last Vital Signs Temp 97.8 F 02/20/19 16:26 Pulse 99 H 02/20/19 18:00 Resp 23 02/20/19 17:00 BP 113/77 02/20/19 18:00 Pulse Ox 99 02/20/19 18:00 - Labs Result Diagrams: 02/21/19 08:43 02/21/19 06:20 Labs: Laboratory Results - last 24 hr 02/20/19 02/20/19 02/20/19 17:48 17:48 17:50 WBC 10.8 RBC 4.98 Hgb 14.3 Hct 43.4 MCV 87.1 MCH 28.7 MCHC 33.0 RDW 16.9 H Plt Count 310 MPV 8.0 Neut % (Auto) 65.0 Lymph % (Auto) 21.0 [place] % (Auto) 10.2 H Eos % (Auto) 2.8 Baso % (Auto) 1.0 Neut # (Auto) 7.0 Lymph # (Auto) 2.3 [place] # (Auto) 1.1 H Eos # (Auto) 0.3 Baso # (Auto) 0.1 pO2 33 VBG pH 7.36 VBG pCO2 47 VBG HCO3 24.4 VBG Total CO2 28.0 VBG O2 Sat (Calc) 68.1 H VBG Base Excess 0.6 VBG Potassium 4.0 Glucose 72 L Lactate 1.3 Sodium 135 136.0 Potassium 4.3 Chloride 101 103.0 Carbon Dioxide 27 Anion Gap 12 BUN 26 H Creatinine 1.0 Est GFR ( Amer) > 60 Est GFR (Non-Af Amer) > 60 Random Glucose 84 D Calcium 9.4 Total Bilirubin 0.3 AST 27 ALT 22 Alkaline Phosphatase 63 Troponin I 0.0250 NT-Pro-B Natriuret Pep 845 Total Protein 7.7 Albumin 4.1 Globulin 3.5 Albumin/Globulin Ratio 1.2 Venous Blood Potassium 4.0 Assessment & Plan - Assessment and Plan (Free Text) Plan: 48 M w/ PMHx of CAD, HTN, CHF, chronic back pain presents to ED for chest pain and epistaxis. UDS + for cocaine, troponin x 1 negative. Chest Pain R/o Acute coronary syndrome - troponin X1 negative, follow up serial - UDS + cocaine - EKG: AFIB RVR - F/u lipid panel - F/u Hgb A1c -TSH on last admission WNL - daily digoxin 0.125 mg - c/w home ASA 81mg - Crestor 20mg, conversion for home med lipitor Afib RVR - EKG afib RVR - c/w digoxin 0.125 daily - home med xarelto 20 mg PO daily Shortness of breath COPD/ Asthma - Duonebs RQ6H - Breo Ellipta - Montelukast 10mg HS Congestive heart failure, (systolic) Reduced EF - ECHO 2017, EF of 25%, global wall hypokinesis - BNP 800s - Avoid beta blockers due to cocaine use - Aldactone 25 mg PO daily History of Hypertension - Lisinopril 10mg daily Coronary Artery Disease - c/w Crestor 20 mg PO HS - heart healthy diet History of anxiety/ depression - c/w home medication seroquel 50 mg PO BID -Xanax 0.25mg PO TID PRN Chronic Back pain - Gabapenin 800mg PO TID - Tyleno 650mg Q6H PRN PPx - home med Plavix 75mg -Nicotine patch Discussed with Dr. Terrence Gray, PGY-1
[2019-02-20] MEDS: Digoxin 125 mcg (0.125 mg) Tab PO SCH (23:42)
[2019-02-21] MEDS: Albuterol-Ipratrop 3 mg / 0.5 (3 ml) UD INH SCH ×4 (02:45→19:29)
[2019-02-21 02:47] LABS: CK-MB 3.98 ng/mL (0.0-3.38); TROPONIN I 0.023 ng/mL (0.00-0.120)
[2019-02-21] MEDS ORDERED: Oxycodone/Acetaminophen 5/325 mg Tab PO ONE (03:47)
[2019-02-21 06:25] LABS: BASO # 0.1 K/uL (0.0-0.2); BASO % 1.3 % (0.0-2.0); EOS # 0.3 K/uL (0.0-0.7); EOS % 3.3 % (0.0-4.0); HEMOGLOBIN 14.2 g/dL (12.0-18.0); LYMPH # 2.6 K/uL (1.0-4.3); LYMPH % 24.5 % (20.0-40.0); MEAN CELL VOLUME 88.6 fL (80.0-94.0); MEAN CORPUSCULAR HEMOGLOBIN 28.1 pg (27.0-31.0); MEAN CORPUSCULAR HGB CONC 31.7 g/dL (33.0-37.0); MEAN PLATELET VOLUME 8.1 fL (7.2-11.7); MONO # 1.3 K/uL (0.0-0.8); MONO % 11.8 % (0.0-10.0); NEUT # 6.3 K/uL (1.8-7.0); NEUT % 59.1 % (50.0-75.0); RBC 5.06 Mil/uL (4.40-5.90); RED CELL DISTRIBUTION WIDTH 16.8 % (11.5-14.5); WHITE BLOOD COUNT 10.6 K/uL (4.8-10.8)
[2019-02-21 06:39] LABS: ALB/GLOB RATIO 1.2 (1.0-2.1); ALBUMIN 4.3 g/dL (3.5-5.0); ALT/SGPT 12 U/L (21-72); AST/SGOT 33 U/L (17-59); BLOOD UREA NITROGEN 28 mg/dL (9-20); CALCIUM 9.3 mg/dl (8.6-10.4); GFR NON-AFRICAN AMERICAN > 60; HDL CHOLESTEROL 33 mg/dL (30-70)
[2019-02-21 06:40] LABS: BARBITURATES, UR NEGATIVE (NEGATIVE); BENZODIAZEPINES, UR POSITIVE (NEGATIVE); OPIATES, UR NEGATIVE (NEGATIVE); PHENCYCLIDINE, UR NEGATIVE (NEGATIVE)
[2019-02-21 06:51] LABS: LDL CHOLESTEROL 79 mg/dL (0-129)
[2019-02-21 07:27] LABS: CK-MB 6.11 ng/mL (0.0-3.38); TROPONIN I 0.037 ng/mL (0.00-0.120)
[2019-02-21 08:48] LABS: HEMOGLOBIN 14.4 g/dL (12.0-18.0); MEAN CELL VOLUME 87.9 fL (80.0-94.0); MEAN CORPUSCULAR HEMOGLOBIN 28.2 pg (27.0-31.0); MEAN CORPUSCULAR HGB CONC 32.1 g/dL (33.0-37.0); RBC 5.12 Mil/uL (4.40-5.90); RED CELL DISTRIBUTION WIDTH 16.3 % (11.5-14.5); WHITE BLOOD COUNT 9.2 K/uL (4.8-10.8)
[2019-02-21] MEDS: Fluticasone-Vilanterol 100/25mcg Diskus INH SCH (08:55)
[2019-02-21 09:09] LABS: INR 1.2
--- NOTE | 2019-02-21 09:41 | CP.PCM.PN ---
Subjective - Date & Time of Evaluation Date of Evaluation: 02/21/19 Time of Evaluation: 09:38 - Subjective Subjective: Medicine Progress Note for Dr. Ocampo's service S/E at bedside. Very noncompliant patient. Removing leads, bp cuff, etc. Complains of sharp chest pain with dizziness and sob. With active nose bleed with blood clots. Patient refused rhino rocket during insertion. Patient refused gauze and prefers soft tissues. Denies cocaine use. Denies fevers, chills, headaches, n/v, diaphoresis, dysuria. Objective - Vital Signs/Intake and Output Vital Signs (last 24 hours): Temp Pulse Resp BP Pulse Ox 97.4 F L 96 H 13 107/83 98 02/21/19 06:55 02/21/19 08:53 02/21/19 08:53 02/21/19 08:53 02/21/19 08:53 - Medications Medications: Current Medications Acetaminophen (Tylenol 325mg Tab) 650 mg PO Q6 PRN PRN Reason: Pain, Mild (1-3) Albuterol/Ipratropium (Duoneb 3 Mg/0.5 Mg (3 Ml) Ud) 3 ml INH RQ6 [facility] Last Admin: 02/21/19 09:00 Dose: 3 ml Alprazolam (Xanax) 0.25 mg PO TID PRN PRN Reason: Anxiety Stop: 02/27/19 22:03 Last Admin: 02/21/19 01:03 Dose: 0.25 mg Aspirin (Aspirin Chewable) 81 mg PO DAILY [facility] Last Admin: 02/20/19 23:53 Dose: 81 mg Clopidogrel Bisulfate (Plavix) 75 mg PO DAILY [facility] Digoxin (Digoxin) 0.125 mg PO DAILY@1800 [facility] Last Admin: 02/20/19 23:42 Dose: 0.125 mg Famotidine (Pepcid) 20 mg PO DAILY [facility] Fluticasone/Vilanterol (Breo Ellipta 100-25 Mcg Inh) 1 puff INH RQD [facility] Last Admin: 02/21/19 08:55 Dose: Not Given Gabapentin (Neurontin) 800 mg PO TID [facility] Lisinopril (Zestril) 10 mg PO DAILY [facility] Montelukast Sodium (Singulair) 10 mg PO HS [facility] Last Admin: 02/20/19 23:55 Dose: 10 mg Nicotine (Nicoderm Cq) 1 patch TD DAILY [facility] Last Admin: 02/20/19 23:54 Dose: 1 patch Quetiapine Fumarate (Seroquel) 50 mg PO BID [facility] Last Admin: 02/20/19 23:54 Dose: 50 mg Rivaroxaban (Xarelto) 20 mg PO DAILY [facility] Rosuvastatin Calcium (Crestor) 20 mg PO HS [facility] Last Admin: 02/20/19 23:54 Dose: 20 mg Spironolactone (Aldactone) 25 mg PO DAILY [facility] Last Admin: 02/20/19 23:53 Dose: 25 mg - Labs Labs: 02/21/19 08:43 02/21/19 06:20 PT 13.0 SECONDS (9.7-12.2) H 02/21/19 08:43 INR 1.2 02/21/19 08:43 - Constitutional Appears: Non-toxic, No Acute Distress - Head Exam Head Exam: NORMAL INSPECTION - Eye Exam Eye Exam: EOMI, Normal appearance. absent: Nystagmus, Scleral icterus - ENT Exam ENT Exam: Mucous Membranes Moist Additional comments: active nosebleed with visible blood clots - Respiratory Exam Respiratory Exam: Clear to Ausculation Bilateral, NORMAL BREATHING PATTERN. absent: Decreased Breath Sounds, Rhonchi, Wheezes - Cardiovascular Exam Cardiovascular Exam: Tachycardia, Irregular Rhythm, +S1, +S2. absent: REGULAR RHYTHM - GI/Abdominal Exam GI & Abdominal Exam: Distended, Soft, Normal Bowel Sounds. absent: Tenderness - Extremities Exam Extremities Exam: absent: Calf Tenderness, Pedal Edema, Tenderness Additional comments: visible veins, seems like varicose veins - Neurological Exam Neurological Exam: Awake, Oriented x3 - Psychiatric Exam Psychiatric exam: Agitated Assessment and Plan - Assessment and Plan (Free Text) Assessment: 48 M w/ PMhx of CAD s/p stent (most recent 12/2018 at [facility]), HTN, Chronic back p ain, anxiety/depression, asthma, afib, CHF, CVA, chronic LE edema presents to hospital for chest pain & shortness of breath for the past 5 days. Plan: Chest Pain 02/20 EKG shows Afib w/RVR; on telemetry with sustained Afib Troponins x 3 negative Cardizem 30mg po qod Echo pending Cardiology Consult: Dr. Morgan- recommendations appreciated Acute Epistaxis ASA held ACs held (xarelto, plavix) Refused rhinorocket and gauze dressing; prefers soft tissue; continue packing with nose pinching and head back INR 1.2 Repeat CBC shows Hgb stable Atrial fibrillation On telemetry Cardizem 30mg po qod Cardiology Consult: Dr. Morgan- recommendations appreciated Cocaine Use Disorder Educated patient on cessation due to cardiac history and acute nose bleed Hx of CHF Echo pending Digoxin 0.125mg po daily Lisinoporil 10mg po daily Spironolactone 25mg po daily Hx of CAD w/ CHARLES Crestor 20mg po HS AC held in setting of bleed Cardiology Consult: Dr. Morgan- recommendations appreciated Hx of Anxiety Xanax 0.25mg po tid prn Seroquel 50mg po bid Hx of COPD Duoneb Singulair 10mg po HS Hx of chronic pain etiology from back pain (?herniated discks) Gabapentin 800mg po tid Percocet 2 tab po q6h Hx of nicotine use Nicotine patch TD daily 21mg PPX DVT ppx: held in setting of bleed, pending doppler of LE for possible SCDs (states has blood clots in leg) GI ppx: Pepcid 20mg po HS Tylenol PRN Medical Management d/w Dr. Ocampo PGY-1 Johnny Phelan
[2019-02-21] MEDS: Oxycodone/Acetaminophen 5/325 mg Tab PO PRN ×2 (10:44→17:30)
--- NOTE | 2019-02-21 12:45 | CP.PCM.CON ---
History of Present Illness - History of Present Illness History of Present Illness: 48 years old gentleman with prior history of hypertension and cocaine dependency. It was complicated by coronary artery disease and dilated cardiomyopathy in addition to chronic obstructive pulmonary disease. He is with chronic pain on chronic pain management. He also developed atrial fibrillation and had a reported 5 stents placed during frequent visits to hospitals in acute the latest was in December 2018. He was placed on brilinta in addition to non-Coumadin oral anticoagulation. 2 weeks ago, after recurrence of epistaxis, the antiplatelets was Plavix. The patient is still with chest pain that usually responds to gabapentin. At this time after a prior cerebrovascular accident we will need to continue with the oral anticoagulation in addition to antiplatelets that would be namely Plavix only. Local management of epistaxis should be pursued. Patient was consulted to stop smoking, cocaine, and comply with medical treatment and fluid with salt restriction. Daily weight is imperative in addition to further constipation for the implantable defibrillator. The patient had a few so far. Medical and supportive treatment in this very difficult case for management with noncompliance in a homeless patient with significant disease. SHONDA inhibitor and beta jenny and also imperative in addition to spironolactone. Apparently there is a report of allergy to Plavix. Be changed to low-dose aspirin and Xarelto since there is a report of allergy to Eliquis and Coumadin. Review of Systems - Review of Systems Systems not reviewed;Unavailable: Uncooperative - Constitutional Constitutional: Anorexia, Weakness - EENT Eyes: absent: Discharge Ears: absent: Dizziness Nose/Mouth/Throat: Epistaxis - Cardiovascular Cardiovascular: absent: Chest Pain, Diaphoresis, Leg Edema, Palpitations, Syncope - Respiratory Respiratory: Cough, Dyspnea. absent: Hemoptysis - Gastrointestinal Gastrointestinal: absent: Abdominal Pain, Diarrhea, Vomiting - Genitourinary Genitourinary: absent: Hematuria Past Patient History - Infectious Disease Hx of Infectious Diseases: None - Tetanus Immunizations Tetanus Immunization: Up to Date - Past Medical History & Family History Past Medical History?: Yes - Past Social History Smoking Status: Former Smoker - CARDIAC Hx Atrial Fibrillation: Yes Hx Cardia Arrhythmia: Yes Hx Congestive Heart Failure: Yes Hx Hypercholesterolemia: Yes Hx Hypertension: Yes Hx Peripheral Edema: Yes - PULMONARY Hx Asthma: Yes Hx Chronic Obstructive Pulmonary Disease (COPD): Yes Hx Pneumonia: Yes Hx Sleep Apnea: Yes - NEUROLOGICAL HX Cerebrovascular Accident: Yes - RENAL Hx Chronic Kidney Disease: No - HEMATOLOGICAL/ONCOLOGICAL Hx Human Immunodeficiency Virus (HIV): No - INTEGUMENTARY Hx Dermatological Problems: Yes - MUSCULOSKELETAL/RHEUMATOLOGICAL Hx Arthritis: Yes - GASTROINTESTINAL Hx Gastrointestinal Disorders: Yes Other/Comment: Splenic Hematoma - GENITOURINARY/GYNECOLOGICAL Hx Genitourinary Disorders: No - PSYCHIATRIC Hx Anxiety: Yes Hx Bipolar Disorder: Yes Hx Depression: Yes Hx Substance Use: Yes - SURGICAL HISTORY Hx Appendectomy: Yes (2008) Hx Coronary Stent: Yes (2008 - 2012 4 stents RCA 2019) - ANESTHESIA Hx Anesthesia: Yes Hx Anesthesia Reactions: No Hx Malignant Hyperthermia: No Meds Allergies/Adverse Reactions: Allergies Allergy/AdvReac Type Severity Reaction Status Date / Time apixaban [From Eliquis] Allergy RASH Verified 02/06/19 20:08 clopidogrel bisulfate Allergy RASH Verified 02/06/19 20:08 [From Plavix] enoxaparin sodium Allergy RASH Verified 02/06/19 20:08 [From Lovenox] morphine Allergy RASH Verified 02/06/19 20:08 warfarin Allergy RASH Verified 02/06/19 20:08 - Medications Medications: Current Medications Acetaminophen (Tylenol 325mg Tab) 650 mg PO Q6 PRN PRN Reason: Pain, Mild (1-3) Albuterol/Ipratropium (Duoneb 3 Mg/0.5 Mg (3 Ml) Ud) 3 ml INH RQ6 [facility] Last Admin: 02/21/19 09:00 Dose: 3 ml Alprazolam (Xanax) 0.25 mg PO TID PRN PRN Reason: Anxiety Stop: 02/27/19 22:03 Last Admin: 02/21/19 10:52 Dose: 0.25 mg Aspirin (Aspirin Chewable) 81 mg PO DAILY [facility] Last Admin: 02/20/19 23:53 Dose: 81 mg Clopidogrel Bisulfate (Plavix) 75 mg PO DAILY [facility] Digoxin (Digoxin) 0.125 mg PO DAILY@1800 [facility] Last Admin: 02/20/19 23:42 Dose: 0.125 mg Diltiazem HCl (Cardizem) 30 mg PO QID [facility] Last Admin: 02/21/19 10:45 Dose: 30 mg Famotidine (Pepcid) 20 mg PO DAILY [facility] Last Admin: 02/21/19 10:45 Dose: 20 mg Fluticasone/Vilanterol (Breo Ellipta 100-25 Mcg Inh) 1 puff INH RQD [facility] Last Admin: 02/21/19 08:55 Dose: Not Given Gabapentin (Neurontin) 800 mg PO TID [facility] Lisinopril (Zestril) 10 mg PO DAILY [facility] Last Admin: 02/21/19 10:45 Dose: 10 mg Montelukast Sodium (Singulair) 10 mg PO HS [facility] Last Admin: 02/20/19 23:55 Dose: 10 mg Nicotine (Nicoderm Cq) 1 patch TD DAILY [facility] Last Admin: 02/21/19 10:45 Dose: 1 patch Oxycodone/Acetaminophen (Percocet 5/325 Mg Tab) 2 tab PO Q6H PRN PRN Reason: pain Stop: 02/24/19 09:49 Last Admin: 02/21/19 10:44 Dose: 2 tab Quetiapine Fumarate (Seroquel) 50 mg PO BID [facility] Last Admin: 02/21/19 10:45 Dose: 50 mg Rivaroxaban (Xarelto) 20 mg PO DAILY [facility] Rosuvastatin Calcium (Crestor) 20 mg PO [facility] Last Admin: 02/20/19 23:54 Dose: 20 mg Spironolactone (Aldactone) 25 mg PO DAILY [facility] Last Admin: 02/21/19 10:45 Dose: 25 mg Physical Exam - Constitutional Appears: No Acute Distress, Agitated - Head Exam Head Exam: ATRAUMATIC - Eye Exam Eye Exam: EOMI, PERRL - ENT Exam ENT Exam: Mucous Membranes Moist - Neck Exam Neck exam: Negative for: Lymphadenopathy, Thyromegaly - Respiratory Exam Respiratory Exam: Prolonged Expiratory Phase - Cardiovascular Exam Cardiovascular Exam: Irregular Rhythm, Systolic Murmur - GI/Abdominal Exam GI & Abdominal Exam: Normal Bowel Sounds. absent: Organomegaly - Rectal Exam Rectal Exam: Deferred - Extremities Exam Extremities exam: Positive for: normal capillary refill. Negative for: calf tenderness - Neurological Exam Neurological exam: Alert, Oriented x3 - Psychiatric Exam Psychiatric exam: Agitated, Anxious - Skin Skin Exam: Dry Results - Vital Signs Recent Vital Signs: Last Vital Signs Temp 97.4 F L 02/21/19 06:55 Pulse 96 H 02/21/19 08:53 Resp 13 02/21/19 08:53 BP 107/83 02/21/19 08:53 Pulse Ox 98 02/21/19 08:53 - Labs Result Diagrams: 02/21/19 08:43 02/21/19 06:20 Labs: Laboratory Results - last 24 hr 02/20/19 02/20/19 02/20/19 17:48 17:48 17:50 WBC 10.8 RBC 4.98 Hgb 14.3 Hct 43.4 MCV 87.1 MCH 28.7 MCHC 33.0 RDW 16.9 H Plt Count 310 MPV 8.0 Neut % (Auto) 65.0 Lymph % (Auto) 21.0 [place] % (Auto) 10.2 H Eos % (Auto) 2.8 Baso % (Auto) 1.0 Neut # (Auto) 7.0 Lymph # (Auto) 2.3 [place] # (Auto) 1.1 H Eos # (Auto) 0.3 Baso # (Auto) 0.1 PT INR pO2 33 VBG pH 7.36 VBG pCO2 47 VBG HCO3 24.4 VBG Total CO2 28.0 VBG O2 Sat (Calc) 68.1 H VBG Base Excess 0.6 VBG Potassium 4.0 Glucose 72 L Lactate 1.3 Sodium 135 136.0 Potassium 4.3 Chloride 101 103.0 Carbon Dioxide 27 Anion Gap 12 BUN 26 H Creatinine 1.0 Est GFR ( Amer) > 60 Est GFR (Non-Af Amer) > 60 Random Glucose 84 D Hemoglobin A1c Calcium 9.4 Total Bilirubin 0.3 AST 27 ALT 22 Alkaline Phosphatase 63 Total Creatine Kinase CK-MB (Mass) Troponin I 0.0250 NT-Pro-B Natriuret Pep 845 Total Protein 7.7 Albumin 4.1 Globulin 3.5 Albumin/Globulin Ratio 1.2 Triglycerides Cholesterol LDL Cholesterol Direct HDL Cholesterol Venous Blood Potassium 4.0 Urine Opiates Screen Urine Methadone Screen Ur Barbiturates Screen Ur Phencyclidine Scrn Ur Amphetamines Screen U Benzodiazepines Scrn U Oth Cocaine Metabols U Cannabinoids Screen 02/21/19 02/21/19 02/21/19 02:21 06:20 06:20 WBC RBC Hgb Hct MCV MCH MCHC RDW Plt Count MPV Neut % (Auto) Lymph % (Auto) [place] % (Auto) Eos % (Auto) Baso % (Auto) Neut # (Auto) Lymph # (Auto) [place] # (Auto) Eos # (Auto) Baso # (Auto) PT INR pO2 VBG pH VBG pCO2 VBG HCO3 VBG Total CO2 VBG O2 Sat (Calc) VBG Base Excess VBG Potassium Glucose Lactate Sodium 138 Potassium 4.5 Chloride 99 Carbon Dioxide 29 Anion Gap 15 BUN 28 H Creatinine 1.2 Est GFR ( Amer) > 60 Est GFR (Non-Af Amer) > 60 Random Glucose 76 Hemoglobin A1c 6.3 Calcium 9.3 Total Bilirubin 0.5 AST 33 ALT 12 L D Alkaline Phosphatase 58 Total Creatine Kinase 136 CK-MB (Mass) 3.98 H Troponin I 0.0230 NT-Pro-B Natriuret Pep Total Protein 7.9 Albumin 4.3 Globulin 3.6 Albumin/Globulin Ratio 1.2 Triglycerides 117 Cholesterol 121 LDL Cholesterol Direct 79 HDL Cholesterol 33 Venous Blood Potassium Urine Opiates Screen Urine Methadone Screen Ur Barbiturates Screen Ur Phencyclidine Scrn Ur Amphetamines Screen U Benzodiazepines Scrn U Oth Cocaine Metabols U Cannabinoids Screen 02/21/19 02/21/19 02/21/19 06:20 06:20 06:20 WBC 10.6 RBC 5.06 Hgb 14.2 Hct 44.8 MCV 88.6 MCH 28.1 MCHC 31.7 L RDW 16.8 H Plt Count 335 MPV 8.1 Neut % (Auto) 59.1 Lymph % (Auto) 24.5 [place] % (Auto) 11.8 H Eos % (Auto) 3.3 Baso % (Auto) 1.3 Neut # (Auto) 6.3 Lymph # (Auto) 2.6 [place] # (Auto) 1.3 H Eos # (Auto) 0.3 Baso # (Auto) 0.1 PT INR pO2 VBG pH VBG pCO2 VBG HCO3 VBG Total CO2 VBG O2 Sat (Calc) VBG Base Excess VBG Potassium Glucose Lactate Sodium Potassium Chloride Carbon Dioxide Anion Gap BUN Creatinine Est GFR ( Amer) Est GFR (Non-Af Amer) Random Glucose Hemoglobin A1c Calcium Total Bilirubin AST ALT Alkaline Phosphatase Total Creatine Kinase 185 H CK-MB (Mass) 6.11 H Troponin I 0.0370 NT-Pro-B Natriuret Pep Total Protein Albumin Globulin Albumin/Globulin Ratio Triglycerides Cholesterol LDL Cholesterol Direct HDL Cholesterol Venous Blood Potassium Urine Opiates Screen Negative Urine Methadone Screen Negative Ur Barbiturates Screen Negative Ur Phencyclidine Scrn Negative Ur Amphetamines Screen Negative U Benzodiazepines Scrn Positive U Oth Cocaine Metabols Positive H U Cannabinoids Screen Negative 02/21/19 02/21/19 08:43 08:43 WBC 9.2 RBC 5.12 Hgb 14.4 Hct 45.1 MCV 87.9 MCH 28.2 MCHC 32.1 L RDW 16.3 H Plt Count 330 MPV 8.0 Neut % (Auto) Lymph % (Auto) [place] % (Auto) Eos % (Auto) Baso % (Auto) Neut # (Auto) Lymph # (Auto) [place] # (Auto) Eos # (Auto) Baso # (Auto) PT 13.0 H INR 1.2 pO2 VBG pH VBG pCO2 VBG HCO3 VBG Total CO2 VBG O2 Sat (Calc) VBG Base Excess VBG Potassium Glucose Lactate Sodium Potassium Chloride Carbon Dioxide Anion Gap BUN Creatinine Est GFR ( Amer) Est GFR (Non-Af Amer) Random Glucose Hemoglobin A1c Calcium Total Bilirubin AST ALT Alkaline Phosphatase Total Creatine Kinase CK-MB (Mass) Troponin I NT-Pro-B Natriuret Pep Total Protein Albumin Globulin Albumin/Globulin Ratio Triglycerides Cholesterol LDL Cholesterol Direct HDL Cholesterol Venous Blood Potassium Urine Opiates Screen Urine Methadone Screen Ur Barbiturates Screen Ur Phencyclidine Scrn Ur Amphetamines Screen U Benzodiazepines Scrn U Oth Cocaine Metabols U Cannabinoids Screen Assessment & Plan (1) Status post coronary artery stent placement Status: Chronic Comment: Atypical chest pain no need to change his treatment continue Plavix only in addition to oral anticoagulation (2) Atrial fibrillation Status: Chronic Comment: Needs anticoagulation with Plavix especially with history of prior stroke (3) ARLENE and COPD overlap syndrome Status: Acute Comment: Gen. health maintenance with beta agonist (4) Cocaine dependence Status: Chronic Comment: Advised to stop (5) HFrEF (heart failure with reduced ejection fraction) Status: Chronic Comment: Beta jenny, SHONDA inhibitor, spironolactone, and serious consideration for implantable defibrillator. Salt and fluid restriction in addition to daily weight (6) Hypertension Status: Chronic
--- NOTE | 2019-02-21 16:40 | CARD ---
APPROVED REPORT Date of service: 02/21/2019 EXAM: Two-dimensional and M-mode echocardiogram with Doppler and color Doppler. Other Information Quality : GoodRhythm : INDICATION Chest Pain 2D DIMENSIONS IVSd1.2 (0.7-1.1cm)LVDd6.3 (3.9-5.9cm) PWd1.2 (0.7-1.1cm)LA Hgdprq15 (18-58mL) LVDs6.0 (2.5-4.0cm)FS (%) 3.9 % LVEF (%)8.6 (>50%)LVEF (Condon's)28.49 % IVC0.00 cm M-Mode DIMENSIONS RVDd3.82 (2.1-3.2cm)Left Atrium (MM)5.72 (2.5-4.0cm) IVSd1.17 (0.7-1.1cm)Aortic Root3.61 (2.2-3.7cm) LVDd6.90 (4.0-5.6cm)Aortic Cusp Exc.2.42 (1.5-2.0cm) PWd1.13 (0.7-1.1cm)FS (%) 15 % LVDs5.86 (2.0-3.8cm)LVEF (%)31 (>50%) Mitral Valve MV E Zqdralfi99.1cm/sE/A ratio0.0 TDI Lateral E' Peak V3.90cm/sMedial E' Peak V2.35cm/sE/Lateral E'23.4 E/Medial E'38.8 Tricuspid Valve TR Peak Wvtsyajz100qt/sTR Peak [id number] LEFT VENTRICLE The Left Ventricle is mildly dilated. There is borderline concentric left ventricular hypertrophy. The systolic function is severely impaired. There is global hypokinesis of the left ventricle. No left ventricle thrombus noted on this study. RIGHT VENTRICLE The right ventricle is normal size. There is normal right ventricular wall thickness. Systolic function is mildly reduced. ATRIA The left atrium is moderately dilated. The right atrium size is normal. AORTIC VALVE The aortic valve is normal in structure. No aortic regurgitation is present. There is no aortic valvular stenosis. MITRAL VALVE The mitral valve is mildly thickened. There is no mitral valve stenosis. There is no mitral valve regurgitation noted. TRICUSPID VALVE The tricuspid valve is normal in structure. There is trace to mild tricuspid regurgitation. PULMONIC VALVE The pulmonary valve is normal in structure. There is trace pulmonic valvular regurgitation. GREAT VESSELS The aortic root is normal in size. PERICARDIAL EFFUSION There is no pericardial effusion. <Conclusion> The Left Ventricle is mildly dilated. There is borderline concentric left ventricular hypertrophy. The systolic function is severely impaired. There is global hypokinesis of the left ventricle. No left ventricle thrombus noted on this study.
[2019-02-21] MEDS: Digoxin 125 mcg (0.125 mg) Tab PO SCH (17:27)
[2019-02-21 17:28] VITALS: PULSE 98
[2019-02-22] MEDS: Albuterol-Ipratrop 3 mg / 0.5 (3 ml) UD INH SCH ×4 (01:41→19:42)
[2019-02-22] MEDS: Oxycodone/Acetaminophen 5/325 mg Tab PO PRN ×3 (02:43→17:21)
[2019-02-22] MEDS: Fluticasone-Vilanterol 100/25mcg Diskus INH SCH (07:30)
[2019-02-22 07:46] LABS: ALB/GLOB RATIO 1.2 (1.0-2.1); ALBUMIN 3.9 g/dL (3.5-5.0); ALT/SGPT 10 U/L (21-72); AST/SGOT 26 U/L (17-59); BLOOD UREA NITROGEN 30 mg/dL (9-20); CALCIUM 9.1 mg/dl (8.6-10.4); GFR NON-AFRICAN AMERICAN 58
[2019-02-22 07:58] LABS: BASO # 0.1 K/uL (0.0-0.2); EOS # 0.4 K/uL (0.0-0.7); EOS % 4.2 % (0.0-4.0); HEMOGLOBIN 13.1 g/dL (12.0-18.0); LYMPH # 2.4 K/uL (1.0-4.3); LYMPH % 26.1 % (20.0-40.0); MEAN CELL VOLUME 87.2 fL (80.0-94.0); MEAN CORPUSCULAR HEMOGLOBIN 28.6 pg (27.0-31.0); MEAN CORPUSCULAR HGB CONC 32.8 g/dL (33.0-37.0); MEAN PLATELET VOLUME 8.2 fL (7.2-11.7); MONO # 1.4 K/uL (0.0-0.8); MONO % 14.9 % (0.0-10.0); NEUT # 4.9 K/uL (1.8-7.0); NEUT % 53.8 % (50.0-75.0); NRBC % 0.1 % (0.0-2.0); RBC 4.58 Mil/uL (4.40-5.90); RED CELL DISTRIBUTION WIDTH 16.6 % (11.5-14.5); WHITE BLOOD COUNT 9.1 K/uL (4.8-10.8)
[2019-02-22] MEDS: guaiFENesin 100 mg/5 ml Syrup UD PO PRN ×2 (08:08→14:41)
--- NOTE | 2019-02-22 12:36 | CP.PCM.PN ---
Subjective - Date & Time of Evaluation Date of Evaluation: 02/22/19 Time of Evaluation: 12:00 - Subjective Subjective: Hemoglobin drop of 1 g, no CO, no chest pain still anxious. For local management of epistaxis consider: ENT, needs to continue on aspirin and Xarelto for a drug- eluting stent, recent, and addition to atrial fibrillation with CHF. Medical treatment and serious consideration for implantable defibrillator Objective - Vital Signs/Intake and Output Vital Signs (last 24 hours): Temp Pulse Resp BP Pulse Ox 97.3 F L 70 20 109/70 96 02/22/19 04:30 02/22/19 04:30 02/22/19 04:30 02/22/19 04:30 02/22/19 07:33 Intake and Output: 02/22/19 02/22/19 06:59 18:59 Intake Total 480 Balance 480 - Medications Medications: Current Medications Acetaminophen (Tylenol 325mg Tab) 650 mg PO Q6 PRN PRN Reason: Pain, Mild (1-3) Albuterol/Ipratropium (Duoneb 3 Mg/0.5 Mg (3 Ml) Ud) 3 ml INH RQ6 REPLACED BY [facility] Last Admin: 02/22/19 07:30 Dose: 3 ml Alprazolam (Xanax) 0.25 mg PO TID PRN PRN Reason: Anxiety Stop: 02/27/19 22:03 Last Admin: 02/22/19 08:06 Dose: 0.25 mg Aspirin (Aspirin Chewable) 81 mg PO DAILY REPLACED BY [facility] Last Admin: 02/20/19 23:53 Dose: 81 mg Clopidogrel Bisulfate (Plavix) 75 mg PO DAILY REPLACED BY [facility] Digoxin (Digoxin) 0.125 mg PO DAILY@1800 REPLACED BY [facility] Last Admin: 02/21/19 17:27 Dose: 0.125 mg Diltiazem HCl (Cardizem) 30 mg PO QID REPLACED BY [facility] Last Admin: 02/22/19 10:16 Dose: 30 mg Famotidine (Pepcid) 20 mg PO DAILY REPLACED BY [facility] Last Admin: 02/22/19 10:17 Dose: 20 mg Fluticasone/Vilanterol (Breo Ellipta 100-25 Mcg Inh) 1 puff INH RQD REPLACED BY [facility] Last Admin: 02/22/19 07:30 Dose: Not Given Gabapentin (Neurontin) 800 mg PO TID REPLACED BY [facility] Last Admin: 02/22/19 10:16 Dose: 800 mg Guaifenesin (Robitussin) 100 mg PO Q6H PRN PRN Reason: Cough Last Admin: 02/22/19 08:08 Dose: 100 mg Lisinopril (Zestril) 10 mg PO DAILY REPLACED BY [facility] Last Admin: 02/22/19 09:49 Dose: Not Given Montelukast Sodium (Singulair) 10 mg PO [facility] Last Admin: 02/21/19 21:38 Dose: 10 mg Nicotine (Nicoderm Cq) 1 patch TD DAILY REPLACED BY [facility] Last Admin: 02/22/19 10:17 Dose: 1 patch Oxycodone/Acetaminophen (Percocet 5/325 Mg Tab) 2 tab PO Q6H PRN PRN Reason: pain Stop: 02/24/19 09:49 Last Admin: 02/22/19 10:15 Dose: 2 tab Quetiapine Fumarate (Seroquel) 50 mg PO BID REPLACED BY [facility] Last Admin: 02/22/19 10:17 Dose: 50 mg Rivaroxaban (Xarelto) 20 mg PO DAILY REPLACED BY [facility] Rosuvastatin Calcium (Crestor) 20 mg PO [facility] Last Admin: 02/21/19 21:38 Dose: 20 mg Spironolactone (Aldactone) 25 mg PO DAILY REPLACED BY [facility] Last Admin: 02/22/19 10:17 Dose: 25 mg - Labs Labs: 02/22/19 07:22 02/22/19 07:22 PT 13.0 SECONDS (9.7-12.2) H 02/21/19 08:43 INR 1.2 02/21/19 08:43 - Constitutional Appears: Non-toxic - Head Exam Head Exam: ATRAUMATIC - Eye Exam Eye Exam: EOMI - ENT Exam ENT Exam: Mucous Membranes Moist - Neck Exam Neck Exam: absent: Thyromegaly - Respiratory Exam Respiratory Exam: Prolonged Expiratory Phase, Rales. absent: Wheezes - Cardiovascular Exam Cardiovascular Exam: Irregular Rhythm, Murmur - GI/Abdominal Exam GI & Abdominal Exam: Normal Bowel Sounds. absent: Organomegaly - Rectal Exam Rectal Exam: Deferred - Extremities Exam Extremities Exam: Normal Capillary Refill. absent: Calf Tenderness - Neurological Exam Neurological Exam: Alert, Oriented x3 - Psychiatric Exam Psychiatric exam: Agitated, Anxious - Skin Skin Exam: Dry Assessment and Plan (1) Status post coronary artery stent placement Status: Chronic (2) Atrial fibrillation Status: Chronic (3) ARLENE and COPD overlap syndrome Status: Acute (4) Cocaine dependence Status: Chronic (5) HFrEF (heart failure with reduced ejection fraction) Status: Chronic (6) Hypertension Status: Chronic
--- NOTE | 2019-02-22 12:58 | CP.PCM.PN ---
Subjective - Date & Time of Evaluation Date of Evaluation: 02/22/19 Time of Evaluation: 12:55 - Subjective Subjective: Medicine Progress Note for Dr. Ocampo's service S/E at bedside. Denies chest pain. States he wants to be on Coumadin but is listed as an allergy. Demanded he be put on his anti-anxiety meds. Denies fevers, chills, chest pain, sob, n/v, constipation or diarrhea, and dysuria. Objective - Vital Signs/Intake and Output Vital Signs (last 24 hours): Temp Pulse Resp BP Pulse Ox 97.3 F L 70 20 109/70 96 02/22/19 04:30 02/22/19 04:30 02/22/19 04:30 02/22/19 04:30 02/22/19 07:33 Intake and Output: 02/22/19 02/22/19 06:59 18:59 Intake Total 480 Balance 480 - Medications Medications: Current Medications Acetaminophen (Tylenol 325mg Tab) 650 mg PO Q6 PRN PRN Reason: Pain, Mild (1-3) Albuterol/Ipratropium (Duoneb 3 Mg/0.5 Mg (3 Ml) Ud) 3 ml INH RQ6 COUNTS INCLUDE 234 BEDS AT THE [facility] Last Admin: 02/22/19 07:30 Dose: 3 ml Alprazolam (Xanax) 0.25 mg PO TID PRN PRN Reason: Anxiety Stop: 02/27/19 22:03 Last Admin: 02/22/19 08:06 Dose: 0.25 mg Aspirin (Aspirin Chewable) 81 mg PO DAILY COUNTS INCLUDE 234 BEDS AT THE [facility] Last Admin: 02/20/19 23:53 Dose: 81 mg Clopidogrel Bisulfate (Plavix) 75 mg PO DAILY COUNTS INCLUDE 234 BEDS AT THE [facility] Digoxin (Digoxin) 0.125 mg PO DAILY@1800 COUNTS INCLUDE 234 BEDS AT THE [facility] Last Admin: 02/21/19 17:27 Dose: 0.125 mg Diltiazem HCl (Cardizem) 30 mg PO QID COUNTS INCLUDE 234 BEDS AT THE [facility] Last Admin: 02/22/19 10:16 Dose: 30 mg Famotidine (Pepcid) 20 mg PO DAILY COUNTS INCLUDE 234 BEDS AT THE [facility] Last Admin: 02/22/19 10:17 Dose: 20 mg Fluoxetine HCl (Prozac) 20 mg PO DAILY COUNTS INCLUDE 234 BEDS AT THE [facility] Fluticasone/Vilanterol (Breo Ellipta 100-25 Mcg Inh) 1 puff INH RQD COUNTS INCLUDE 234 BEDS AT THE [facility] Last Admin: 02/22/19 07:30 Dose: Not Given Gabapentin (Neurontin) 800 mg PO TID COUNTS INCLUDE 234 BEDS AT THE [facility] Last Admin: 02/22/19 10:16 Dose: 800 mg Guaifenesin (Robitussin) 100 mg PO Q6H PRN PRN Reason: Cough Last Admin: 02/22/19 08:08 Dose: 100 mg Lisinopril (Zestril) 10 mg PO DAILY COUNTS INCLUDE 234 BEDS AT THE [facility] Last Admin: 02/22/19 09:49 Dose: Not Given Montelukast Sodium (Singulair) 10 mg PO HS COUNTS INCLUDE 234 BEDS AT THE [facility] Last Admin: 02/21/19 21:38 Dose: 10 mg Nicotine (Nicoderm Cq) 1 patch TD DAILY COUNTS INCLUDE 234 BEDS AT THE [facility] Last Admin: 02/22/19 10:17 Dose: 1 patch Oxycodone/Acetaminophen (Percocet 5/325 Mg Tab) 2 tab PO Q6H PRN PRN Reason: pain Stop: 02/24/19 09:49 Last Admin: 02/22/19 10:15 Dose: 2 tab Quetiapine Fumarate (Seroquel) 50 mg PO BID COUNTS INCLUDE 234 BEDS AT THE [facility] Last Admin: 02/22/19 10:17 Dose: 50 mg Rivaroxaban (Xarelto) 20 mg PO DAILY COUNTS INCLUDE 234 BEDS AT THE [facility] Rosuvastatin Calcium (Crestor) [address] [facility] Last Admin: 02/21/19 21:38 Dose: 20 mg Spironolactone (Aldactone) 25 mg PO DAILY COUNTS INCLUDE 234 BEDS AT THE [facility] Last Admin: 02/22/19 10:17 Dose: 25 mg - Labs Labs: 02/22/19 07:22 02/22/19 07:22 PT 13.0 SECONDS (9.7-12.2) H 02/21/19 08:43 INR 1.2 02/21/19 08:43 - Constitutional Appears: Non-toxic, No Acute Distress - Head Exam Head Exam: NORMAL INSPECTION, NORMOCEPHALIC - Eye Exam Eye Exam: EOMI. absent: Nystagmus, Scleral icterus - Respiratory Exam Respiratory Exam: Clear to Ausculation Bilateral, NORMAL BREATHING PATTERN. absent: Rales, Rhonchi, Wheezes - Cardiovascular Exam Cardiovascular Exam: REGULAR RHYTHM, +S1, +S2 - GI/Abdominal Exam GI & Abdominal Exam: Soft, Normal Bowel Sounds. absent: Tenderness - Neurological Exam Neurological Exam: Awake, Oriented x3 - Psychiatric Exam Psychiatric exam: Normal Affect, Normal Mood - Skin Skin Exam: Dry, Intact, Normal Color Assessment and Plan - Assessment and Plan (Free Text) Assessment: 48 M w/ PMhx of CAD s/p stent (most recent 12/2018 at [facility]), HTN, Chronic back pain, anxiety/depression, asthma, afib, CHF, CVA, chronic LE edema presents to hospital for chest pain & shortness of breath for the past 5 days. Epistaxis has resolved. Will continue Aspirin and Xarelto as per cardiology. May restart plavix and educate patient on cocaine cessation. Plan: Chest Pain (resolved) likely anxiety related as patient states with xanax he does not feel 02/20 EKG shows Afib w/RVR; on telemetry with sustained Afib Troponins x 3 negative Cardizem 30mg po qod Aspirin daily Echo with LV EF of 31%; serious consideration for implantable defibrillator Acute Epistaxis (resolved) AC restarted (aspirin and xarelto) Refused rhinorocket and gauze dressing; prefers soft tissue; continue packing with nose pinching and head back INR 1.2 1 unit drop of hgb; will trend cbc, likely from epistaxis Atrial fibrillation (resolved) On telemetry Cardizem 30mg po qod; Xarelto 20mg po daily Cardiology Consult: Dr. Morgan- implantable device reina; restart aspirin and xarelto Hx of CHF Echo with LV of 31%; please refer to full report Digoxin 0.125mg po daily Cardizem 30mg po qod (no beta jenny due to continued cocaine use) Lisinoporil 10mg po daily Spironolactone 25mg po daily Hx of CAD w/ CHARLES Crestor 20mg po HS AC restarted as per cardiology Cardiology Consult: Dr. Gamino- recommends aspirin and xarelto to be restarted Hx of Anxiety Xanax 0.25mg po tid prn Seroquel 50mg po bid Prozac 20mg po daily Hx of COPD Duoneb Singulair 10mg po HS Hx of chronic pain etiology from back pain (?herniated discks) Gabapentin 800mg po tid Percocet 2 tab po q6h Cocaine Use Disorder Educated patient on cessation due to cardiac history and acute nose bleed Hx of nicotine use Nicotine patch TD daily 21mg PPX DVT ppx: Xarelto 20mg po daily GI ppx: Pepcid 20mg po HS Tylenol PRN Medical Management d/w Dr. Ocampo PGY-1 Johnny Phealn
--- NOTE | 2019-02-22 13:08 | VASCLAB ---
Date of service: 02/21/2019 PROCEDURE: Lower Extremity Venous Duplex Exam. HISTORY: Leg pain PRIORS: None. TECHNIQUE: Bilateral common femoral, femoral, popliteal and posterior tibial, peroneal and great saphenous veins were evaluated. Flow was assessed with color Doppler, compressibility, assessment of phasic flow and augmentation response. Report prepared by Matt Bullock, DEMETRIUS, RVT FINDINGS: RIGHT: 1. Common Femoral Vein: 1.1. Compressibility - Fully compressible: Thrombus - None : Flow - Phasic: Augmentation -Normal: Reflux - None. 2. Femoral Vein: 2.1. Compressibility - Fully compressible: Thrombus - None : Flow - Phasic: Augmentation -Normal: Reflux - None. 3. Popliteal Vein: 3.1. Compressibility - Fully compressible: Thrombus - None : Flow - Phasic: Augmentation -Normal: Reflux - None. 4. Posterior Tibial Vein: 4.1. Compressibility - Fully compressible: Thrombus - None: Flow - Phasic: Augmentation -Normal: Reflux - None. 5. Peroneal Vein: 5.1. Compressibility - Fully compressible: Thrombus - None: Flow - Phasic: Augmentation -Normal: Reflux - None. 6. Great Saphenous Vein: 6.1. Compressibility - Fully compressible: Thrombus - None: Flow - Phasic: Augmentation - Normal: Reflux - None. LEFT: 1. Common Femoral Vein: 1.1. Compressibility - Fully compressible: Thrombus - None: Flow - Phasic: Augmentation -Normal: Reflux - None. 2. Femoral Vein: 2.1. Compressibility - Fully compressible: Thrombus - None: Flow - Phasic: Augmentation -Normal: Reflux - None. 3. Popliteal Vein: 3.1. Compressibility - Fully compressible: Thrombus - None : Flow - Phasic: Augmentation -Normal: Reflux - None. 4. Posterior Tibial Vein: 4.1. Compressibility - Fully compressible: Thrombus - None: Flow - Phasic: Augmentation -Normal: Reflux - None. 5. Peroneal Vein: 5.1. Compressibility - Fully compressible: Thrombus - None: Flow - Phasic: Augmentation -Normal: Reflux - None. 6. Great Saphenous Vein: 6.1. Compressibility - Fully compressible: Thrombus - None: Flow - Phasic: Augmentation - Normal: Reflux - None. OTHER FINDINGS: Right: None significant. Left: None significant. IMPRESSION: Right: No evidence of deep or superficial vein thrombosis of the right lower extremity. Normal valve function noted of the right side. Left: No evidence of deep or superficial vein thrombosis of the left lower extremity. Normal valve function noted of the left side.
[2019-02-22] MEDS: Digoxin 125 mcg (0.125 mg) Tab PO SCH (17:24)
[2019-02-22 21:13] LABS: CK-MB 5.3 ng/mL (0.0-3.38); TROPONIN I 0.016 ng/mL (0.00-0.120)
[2019-02-23] MEDS: Oxycodone/Acetaminophen 5/325 mg Tab PO PRN ×2 (00:28→08:54)
[2019-02-23] MEDS: Albuterol-Ipratrop 3 mg / 0.5 (3 ml) UD INH SCH ×4 (01:30→13:30)
[2019-02-23 01:51] VITALS: RESP 20
[2019-02-23] MEDS: Fluticasone-Vilanterol 100/25mcg Diskus INH SCH (07:45)
[2019-02-23 07:59] LABS: BASO # 0.1 K/uL (0.0-0.2); BASO % 1.1 % (0.0-2.0); EOS # 0.5 K/uL (0.0-0.7); EOS % 5.8 % (0.0-4.0); LYMPH # 2.3 K/uL (1.0-4.3); LYMPH % 29.5 % (20.0-40.0); MEAN CELL VOLUME 88.1 fL (80.0-94.0); MEAN CORPUSCULAR HEMOGLOBIN 28.8 pg (27.0-31.0); MEAN CORPUSCULAR HGB CONC 32.6 g/dL (33.0-37.0); MEAN PLATELET VOLUME 8.2 fL (7.2-11.7); MONO # 0.9 K/uL (0.0-0.8); NEUT # 4.1 K/uL (1.8-7.0); NEUT % 51.6 % (50.0-75.0); NRBC % 0.1 % (0.0-2.0); RBC 4.54 Mil/uL (4.40-5.90); RED CELL DISTRIBUTION WIDTH 16.5 % (11.5-14.5); WHITE BLOOD COUNT 7.9 K/uL (4.8-10.8)
[2019-02-23] MEDS: guaiFENesin 100 mg/5 ml Syrup UD PO PRN (07:59)
[2019-02-23 08:06] VITALS: TEMP 97.5
[2019-02-23 08:14] LABS: ALB/GLOB RATIO 1.1 (1.0-2.1); ALBUMIN 3.8 g/dL (3.5-5.0); ALT/SGPT 16 U/L (21-72); AST/SGOT 43 U/L (17-59); BLOOD UREA NITROGEN 28 mg/dL (9-20); CALCIUM 9.1 mg/dl (8.6-10.4); GFR NON-AFRICAN AMERICAN > 60
[2019-02-23 08:21] LABS: CK-MB 4.91 ng/mL (0.0-3.38)
[2019-02-23 09:59] VITALS: BP 108/75
[2019-02-23 11:37] VITALS: PULSE 80; O2SAT 98
--- NOTE | 2019-02-23 13:11 | CP.PCM.DIS ---
Provider - Provider Date of Admission: 02/20/19 18:54 Attending physician: Roque Ocampo Jr, MD Consults: 02/21/19 11:11 Cardiology Consult Routine Comment: chest pain on plavix, with nosebleeds, cocaine use Consulting Provider: Rashid Gamino Consulting Physician: Rashid Gamino Reason for Consult: chest pain on plavix, with nosebleeds, cocaine user. Hx afib, stents Time Spent in preparation of Discharge (in minutes): 30 Hospital Course - Lab Results Lab Results: Micro Results 02/20/19 17:45 Blood Blood Culture - Preliminary NO GROWTH AFTER 48 HOURS 02/20/19 18:15 Blood Blood Culture - Preliminary NO GROWTH AFTER 48 HOURS Most Recent Lab Values WBC 7.9 K/uL (4.8-10.8) 02/23/19 07:45 RBC 4.54 Mil/uL (4.40-5.90) 02/23/19 07:45 Hgb 13.0 g/dL (12.0-18.0) 02/23/19 07:45 Hct 39.9 % (35.0-51.0) 02/23/19 07:45 MCV 88.1 fL (80.0-94.0) 02/23/19 07:45 MCH 28.8 pg (27.0-31.0) 02/23/19 07:45 MCHC 32.6 g/dL (33.0-37.0) L 02/23/19 07:45 RDW 16.5 % (11.5-14.5) H 02/23/19 07:45 Plt Count 332 K/uL (130-400) 02/23/19 07:45 MPV 8.2 fL (7.2-11.7) 02/23/19 07:45 Neut % (Auto) 51.6 % (50.0-75.0) 02/23/19 07:45 Lymph % (Auto) 29.5 % (20.0-40.0) 02/23/19 07:45 [place] % (Auto) 12.0 % (0.0-10.0) H 02/23/19 07:45 Eos % (Auto) 5.8 % (0.0-4.0) H 02/23/19 07:45 Baso % (Auto) 1.1 % (0.0-2.0) 02/23/19 07:45 Neut # (Auto) 4.1 K/uL (1.8-7.0) 02/23/19 07:45 Lymph # (Auto) 2.3 K/uL (1.0-4.3) 02/23/19 07:45 [place] # (Auto) 0.9 K/uL (0.0-0.8) H 02/23/19 07:45 Eos # (Auto) 0.5 K/uL (0.0-0.7) 02/23/19 07:45 Baso # (Auto) 0.1 K/uL (0.0-0.2) 02/23/19 07:45 PT 13.0 SECONDS (9.7-12.2) H 02/21/19 08:43 INR 1.2 02/21/19 08:43 pO2 33 mm/Hg (30-55) 02/20/19 17:50 VBG pH 7.36 (7.32-7.43) 02/20/19 17:50 VBG pCO2 47 mmHg (40-60) 02/20/19 17:50 VBG HCO3 24.4 mmol/L 02/20/19 17:50 VBG Total CO2 28.0 mmol/L (22-28) 02/20/19 17:50 VBG O2 Sat (Calc) 68.1 % (40-65) H 02/20/19 17:50 VBG Base Excess 0.6 mmol/L (0.0-2.0) 02/20/19 17:50 VBG Potassium 4.0 mmol/L (3.6-5.2) 02/20/19 17:50 Sodium 136.0 mmol/l (132-148) 02/20/19 17:50 Chloride 103.0 mmol/L (98-107) 02/20/19 17:50 Glucose 72 mg/dl (75-110) L 02/20/19 17:50 Lactate 1.3 mmol/L (0.7-2.1) 02/20/19 17:50 Sodium 134 mmol/L (132-148) 02/23/19 07:45 Potassium 4.4 mmol/L (3.6-5.2) 02/23/19 07:45 Chloride 99 mmol/L (98-107) 02/23/19 07:45 Carbon Dioxide 28 mmol/L (22-30) 02/23/19 07:45 Anion Gap 11 (10-20) 02/23/19 07:45 BUN 28 mg/dL (9-20) H 02/23/19 07:45 Creatinine 1.2 mg/dL (0.8-1.5) 02/23/19 07:45 Est GFR ( Amer) > 60 02/23/19 07:45 Est GFR (Non-Af Amer) > 60 02/23/19 07:45 POC Glucose (mg/dL) 116 mg/dL (65-110) H 02/22/19 19:15 Random Glucose 86 mg/dL (75-110) 02/23/19 07:45 Hemoglobin A1c 6.3 % (4.2-6.5) 02/21/19 06:20 Calcium 9.1 mg/dl (8.6-10.4) 02/23/19 07:45 Total Bilirubin 0.3 mg/dL (0.2-1.3) 02/23/19 07:45 AST 43 U/L (17-59) 02/23/19 07:45 ALT 16 U/L (21-72) L D 02/23/19 07:45 Alkaline Phosphatase 63 U/L (38-126) 02/23/19 07:45 Total Creatine Kinase 125 U/L (55-170) 02/23/19 07:45 CK-MB (Mass) 4.91 ng/mL (0.0-3.38) H 02/23/19 07:45 Troponin I 0.0300 ng/mL (0.00-0.120) 02/23/19 07:45 NT-Pro-B Natriuret Pep 845 pg/mL (0-900) 02/20/19 17:48 Total Protein 7.2 g/dL (6.3-8.3) 02/23/19 07:45 Albumin 3.8 g/dL (3.5-5.0) 02/23/19 07:45 Globulin 3.5 gm/dL (2.2-3.9) 02/23/19 07:45 Albumin/Globulin Ratio 1.1 (1.0-2.1) 02/23/19 07:45 Triglycerides 117 mg/dL (0-149) 02/21/19 06:20 Cholesterol 121 mg/dL (0-199) 02/21/19 06:20 LDL Cholesterol Direct 79 mg/dL (0-129) 02/21/19 06:20 HDL Cholesterol 33 mg/dL (30-70) 02/21/19 06:20 Venous Blood Potassium 4.0 mmol/L (3.6-5.2) 02/20/19 17:50 Urine Opiates Screen Negative (NEGATIVE) 02/21/19 06:20 Urine Methadone Screen Negative (NEGATIVE) 02/21/19 06:20 Ur Barbiturates Screen Negative (NEGATIVE) 02/21/19 06:20 Ur Phencyclidine Scrn Negative (NEGATIVE) 02/21/19 06:20 Ur Amphetamines Screen Negative (NEGATIVE) 02/21/19 06:20 U Benzodiazepines Scrn Positive (NEGATIVE) 02/21/19 06:20 U Oth Cocaine Metabols Positive (NEGATIVE) H 02/21/19 06:20 U Cannabinoids Screen Negative (NEGATIVE) 02/21/19 06:20 - Hospital Course Hospital Course: Upon Admission 48 M w/ PMhx of CAD s/p stent (most recent 12/2018 at [facility]), HTN, Chronic back pain, anxiety/depression, asthma, afib, CHF, CVA, chronic LE edema presents to hospital for chest pain & shortness of breath for the past 5 days. Chest pain is located in the midsternal area and feels like 9/10 pressure and sharp pain. It is intermittent. Pain does not radiate. Pain worsens with sitting down and improves with gabapentin 300mg. Associated symptoms include lower extremity edema for the past 2 days, rapid heart beat, cough with green sputum, headache, chills, sore throat, and soft bowel movements. Hospital Course Patient was admitted for chest pain and shortness of breath. EKG showed abnormal T waves but troponins x 3 negative. Was also found be in Afib w/ RVR. Patient was started on oral cardizem due to cocaine history. Patient had extensive nosebleed 2/2 cocaine use and AC given in ED. AC was held and patient's nose bleed resolved with no significant hemoglobin drop. Patient's medicines were optimized and was monitored for recurring chest pain or arryhtmia via telemetry. Chest pain and nose bleed resolved. Patient was able to ambulate without shortness of breath and discharged with AC restarted due to recent stent history. Discharge Plan 1. Patient is stable for discharge to home as per Dr. Ocampo 2. Patient needs to followup with Dr. Ocampo and Dr. Morgan within 1 week of discharge. 3. Patient should take the medications as reconciled during this admission. Scripts were given to patient. 4. Patient should return to hospital if symptoms worsen or recur. 5. Patient understands the plan as above and agrees. Discharge Exam - Head Exam Head Exam: NORMAL INSPECTION, NORMOCEPHALIC - Eye Exam Eye Exam: EOMI, Normal appearance. absent: Nystagmus, Scleral icterus - ENT Exam ENT Exam: Mucous Membranes Moist - Respiratory Exam Respiratory Exam: NORMAL BREATHING PATTERN. absent: Respiratory Distress - Cardiovascular Exam Cardiovascular Exam: REGULAR RHYTHM, +S1, +S2 - GI/Abdominal Exam GI & Abdominal Exam: Normal Bowel Sounds, Soft. absent: Tenderness - Extremities Exam Extremities exam: normal inspection - Neurological Exam Neurological exam: Alert, Oriented x3 - Psychiatric Exam Psychiatric exam: Normal Affect, Normal Mood - Skin Skin Exam: Dry, Intact, Normal Color Discharge Plan - Discharge Medications Prescriptions: Albuterol HFA [Ventolin HFA 90 mcg/actuation (8 g)] 2 puff IH RQ6 #1 inhaler ALPRAZolam [Xanax] 0.25 mg PO TID PRN #30 tab PRN Reason: Anxiety Aspirin [Aspirin Chewable] 81 mg PO DAILY #30 chew Atorvastatin [Lipitor] 40 mg PO DAILY #30 tab Clopidogrel [Plavix] 75 mg PO DAILY #30 tab Digoxin 0.125 mg PO DAILY #30 tab diltiaZEM [Cardizem] 30 mg PO QID #120 tab Famotidine [Pepcid] 20 mg PO DAILY #30 tab Fluoxetine HCl [Prozac] 40 mg PO DAILY #30 capsule Gabapentin 800 mg PO Q8 PRN #90 capsule PRN Reason: Pain, Moderate (4-7) Lisinopril [Prinivil] 10 mg PO DAILY #30 tablet Montelukast [Singulair] 10 mg PO DAILY #30 tab Nicotine 21 mg/24 hr [Nicoderm Cq] 1 patch TD DAILY #14 patch oxyCODONE/Acetaminophen [Percocet 5/325 mg Tab] 2 tab PO Q6H PRN #30 tab PRN Reason: Pain, Severe (8-10) - Follow Up Plan Condition: STABLE Disposition: HOME/ ROUTINE Instructions: Heart Failure, Adult (DC), Shortness of Breath (Dyspnea) (DC), Chest Pain (DC) Additional Instructions: 1. Patient is stable for discharge to home as per Dr. Ocampo 2. Patient needs to followup with Dr. Ocampo and Dr. Morgan within 1 week of discharge. 3. Patient should take the medications as reconciled during this admission. Scripts were given to patient. 4. Patient should return to hospital if symptoms worsen or recur. 5. Patient understands the plan as above and agrees. Referrals: Roque Ocampo Jr., MD [Medical Doctor] - Richard Morgan MD [Staff Provider] -
--- NOTE | 2019-02-23 18:27 | CARD ---
APPROVED REPORT Date of service: 02/22/2019 EKG Measurement Heart [id number] <Conclusion> Atrial fibrillation with rapid ventricular response Left axis deviation Inferior infarct, age undetermined ST & T wave abnormality, consider lateral ischemia Abnormal ECG
--- NOTE | 2019-02-23 21:42 | CARD ---
APPROVED REPORT Date of service: 02/21/2019 EKG Measurement Heart [id number] <Conclusion> Atrial fibrillation Incomplete right bundle branch block Left anterior fascicular block Inferior infarct, age undetermined Abnormal ECG
--- NOTE | 2019-02-24 | CP.PCM.PN ---
Subjective - Date & Time of Evaluation Date of Evaluation: 02/23/19 Time of Evaluation: 14:00 - Subjective Subjective: signed against medical advise, was always agitated, does not want to listen or discuss, refusing ICD, local management of epistaxis Objective - Vital Signs/Intake and Output Vital Signs (last 24 hours): Temp Pulse Resp BP Pulse Ox 97.5 F L 80 20 108/75 98 02/23/19 07:00 02/23/19 11:16 02/23/19 07:00 02/23/19 09:59 02/23/19 11:16 - Labs Labs: 02/23/19 07:45 02/23/19 07:45 PT 13.0 SECONDS (9.7-12.2) H 02/21/19 08:43 INR 1.2 02/21/19 08:43 Assessment and Plan (1) Status post coronary artery stent placement Status: Chronic (2) Atrial fibrillation Status: Chronic (3) ARLENE and COPD overlap syndrome Status: Acute (4) Cocaine dependence Status: Chronic (5) HFrEF (heart failure with reduced ejection fraction) Status: Chronic (6) Hypertension Status: Chronic
== END 2019-02-23 14:24 | disposition home or self-care (01) ==
LOC: C.ER 16:14 → C.9E 18:54 → C.5S 02-21 09:16
PROVIDERS: ADMIT Internal Medicine; ATTEND Internal Medicine
DX: R07.89 Other chest pain (principal); I25.10 Atherosclerotic heart disease of native coronary artery without angina pectoris; E78.00 Pure hypercholesterolemia, unspecified; F14.20 Cocaine dependence, uncomplicated; F31.9 Bipolar disorder, unspecified; G47.33 Obstructive sleep apnea (adult) (pediatric); I11.0 Hypertensive heart disease with heart failure; I50.22 Chronic systolic (congestive) heart failure; I42.0 Dilated cardiomyopathy; I48.91 Unspecified atrial fibrillation; J44.9 Chronic obstructive pulmonary disease, unspecified; R04.0 Epistaxis; Z59.0 Homelessness; Z87.891 Personal history of nicotine dependence; Z91.19 Patient's noncompliance with other medical treatment and regimen
CPT/HCPCS: 36415; 71046; 80053; 80061; 82803; 82948; 83036; 83880; 84484; 85025; 85027; 85610; 87040; 93005; 93306; 93970; 94640; 97116; 97161; 99285; G0378; G0480; G8978; G8979; G8980

== ENCOUNTER 2019-03-22 04:28 | Inpatient (IN) | payer MEDICARE, MEDICAID ==
[2019-03-22 04:29] VITALS: BMI 38.9
--- NOTE | 2019-03-22 05:05 | C.PDOC ---
History Of Present Illness Patient presents from long-term with SOB, refused IV access from EMS, duoneb given in the field. Patient is sleeping on the stretcher with all his luggage, recently seen at [place] on the , well known to have bed seeking behavior. He has Hx of afib, COPD, sleep apnea, cocaine abuse, and noncompliance with med regiment. Upon further conversation with patient he denies chest pain. Currently speaking in complete sentences. Time Seen by Provider: 03/22/19 05:04 Chief Complaint (Nursing): Shortness Of Breath History Per: Patient History/Exam Limitations: no limitations Onset/Duration Of Symptoms: Hrs Current Symptoms Are (Timing): Still Present Initiating Event: Upper Respiratory Illness Current Respiratory Medications: See Home Med List Severity: Moderate Pain Scale Rating Of: 4 Associated Symptoms: denies: Chest Pain Reports Recently: Seen In ED, Treated By A Physician, Hospitalized Recent travel outside of the [place]: No Additional History Per: EMS Past Medical History Reviewed: Historical Data, Nursing Documentation, Vital Signs Vital Signs: Last Vital Signs Temp 98.6 F 03/22/19 04:36 Pulse 147 H 03/22/19 04:36 Resp 18 03/22/19 04:36 BP 128/89 03/22/19 04:36 Pulse Ox 94 L 03/22/19 04:36 - Medical History PMH: Anxiety, Arthritis, Asthma, Atrial Fibrillation (CARDIZEM PO), Back Problems, Bipolar Disorder, CAD, Cardia Arrhythmia, CHF, COPD, CVA, Depression, HTN, Hypercholesterolemia, Peripheral Edema, Pneumonia, Sleep Apnea, Chronic Pain (Lower Back Pain) Denies: HIV, Chronic Kidney Disease Surgical History: Appendectomy (2008), Coronary Stent (2008 - 2018 5 stents RCA 2018) - [facility] Procedures CORONAR ARTERIOGR-2 CATH (07/06/13) DRAINAGE OF SPLEEN, PERCUTANEOUS APPROACH (03/05/17) INJECT/INFUSE NEC (02/22/14) LEFT HEART CARDIAC CATH (07/06/13) LT HEART ANGIOCARDIOGRAM (07/06/13) NEBULIZER THERAPY (03/28/14) NON-INVASIVE MECHANICAL VENTILATION (03/26/15) TRANSFUSE NONAUT FROZEN PLASMA IN PERIPH VEIN, PERC (02/21/17) Family History: States: CAD, Diabetes - Social History Hx Tobacco Use: Yes Hx Alcohol Use: No Hx Substance Use: Yes - Immunization History Hx Tetanus Toxoid Vaccination: No Hx Influenza Vaccination: Yes Hx Pneumococcal Vaccination: Yes (08/2014) Review Of Systems Constitutional: Negative for: Fever, Chills Cardiovascular: Negative for: Chest Pain, Palpitations Respiratory: Positive for: Shortness of Breath Gastrointestinal: Negative for: Nausea, Vomiting Musculoskeletal: Negative for: Back Pain Neurological: Negative for: Weakness, Numbness Psych: Negative for: Anxiety Physical Exam - Physical Exam Appears: Non-toxic, Other (Morbidly obese) Skin: Warm, Dry Head: Normacephalic Eye(s): bilateral: Normal Inspection Oral Mucosa: Moist Neck: Supple Chest: Symmetrical, No Tenderness Cardiovascular: Rhythm Irregular Respiratory: No Rales, No Rhonchi, No Wheezing Gastrointestinal/Abdominal: Soft, No Tenderness Back: No CVA Tenderness Extremity: Normal ROM Extremity: Bilateral: Atraumatic Neurological/Psych: Oriented x3 Gait: Steady ED Course And Treatment ECG: Interpreted By Me, Viewed By Me ECG Rhythm: Atrial Fibrillation (145), Nonspecific Changes (lahb, unchangedd) O2 Sat by Pulse Oximetry: 94 (room air) Pulse Ox Interpretation: Normal Progress Note: Blood work, EKG, and CXR ordered. Disposition Counseled Patient/Family Regarding: Studies Performed, Diagnosis - Disposition Disposition Time: 05:05 Condition: FAIR Forms: [facility] (Thai) - Clinical Impression Clinical Impression: COPD (chronic obstructive pulmonary disease), A-fib - Scribe Statement The provider has reviewed the documentation as recorded by the Scribe Matt Mayorga All medical record entries made by the Scribe were at my direction and personally dictated by me. I have reviewed the chart and agree that the record accurately reflects my personal performance of the history, physical exam, medical decision making, and the department course for this patient. I have also personally directed, reviewed, and agree with the discharge instructions and disposition. Physician Patient Turnover Patient Signed Over To: Janette Short Handoff Comments: labs, re-eval and disposition
[2019-03-22 06:40] LABS: BASO # 0.1 K/uL (0.0-0.2); BASO % 0.6 % (0.0-2.0); EOS # 0.2 K/uL (0.0-0.7); EOS % 1.6 % (0.0-4.0); HEMOGLOBIN 12.2 g/dL (12.0-18.0); LYMPH # 1.2 K/uL (1.0-4.3); LYMPH % 10.7 % (20.0-40.0); MEAN CORPUSCULAR HEMOGLOBIN 28.9 pg (27.0-31.0); MEAN CORPUSCULAR HGB CONC 32.8 g/dL (33.0-37.0); MEAN PLATELET VOLUME 8.1 fL (7.2-11.7); MONO # 1.4 K/uL (0.0-0.8); MONO % 11.7 % (0.0-10.0); NEUT # 8.8 K/uL (1.8-7.0); NEUT % 75.4 % (50.0-75.0); NRBC % 0.1 % (0.0-2.0); RBC 4.24 Mil/uL (4.40-5.90); RED CELL DISTRIBUTION WIDTH 15.5 % (11.5-14.5); WHITE BLOOD COUNT 11.6 K/uL (4.8-10.8)
[2019-03-22 06:42] LABS: BARBITURATES, UR NEGATIVE (NEGATIVE); BENZODIAZEPINES, UR NEGATIVE (NEGATIVE); OPIATES, UR NEGATIVE (NEGATIVE); PHENCYCLIDINE, UR NEGATIVE (NEGATIVE)
[2019-03-22 06:46] LABS: INR 1.3; PROTHROMBIN TIME 14.7 SECONDS (9.7-12.2)
[2019-03-22 06:50] LABS: SQUAMOUS EPITHIAL < 1 /hpf (0-5); URINE BILIRUBIN NEGATIVE (NEGATIVE); URINE BLOOD NEGATIVE (NEGATIVE); URINE CLARITY Clear (Clear); URINE COLOR Yellow (YELLOW); URINE GLUCOSE (UA) NORMAL (Normal); URINE LEUKOCYTE ESTERASE NEG Leu/uL (Negative); URINE PROTEIN NEGATIVE (NEGATIVE)
[2019-03-22 06:58] LABS: ALB/GLOB RATIO 1.2 (1.0-2.1); ALT/SGPT 22 U/L (21-72); AST/SGOT 32 U/L (17-59); BLOOD UREA NITROGEN 15 mg/dL (9-20); CALCIUM 8.8 mg/dl (8.6-10.4); GFR NON-AFRICAN AMERICAN > 60
[2019-03-22] MEDS ORDERED: Digoxin 500 mcg/2ml (0.5 mg/2ml) Inj IVP ONE (07:27)
[2019-03-22] MEDS ORDERED: Digoxin 500 mcg/2ml (0.5 mg/2ml) Inj ONE (07:33)
--- NOTE | 2019-03-22 07:51 | RAD ---
Date of service: 03/22/2019 PROCEDURE: CHEST RADIOGRAPH, 1 VIEW HISTORY: SOB COMPARISON: 03/04/2019 FINDINGS: LUNGS: Shallow lung volumes. No consolidation PLEURA: No pneumothorax or pleural fluid seen. CARDIOVASCULAR: No aortic atherosclerotic calcification present. Cardiomegaly-similar Interval increased pulmonary venous congestion-now mild moderate. OSSEOUS STRUCTURES: No significant abnormalities. VISUALIZED UPPER ABDOMEN: Normal. OTHER FINDINGS: None. IMPRESSION: Interval mild pulmonary venous congestion. Cardiomegaly similar.
[2019-03-22 07:56] VITALS: PULSE 143
[2019-03-22 08:06] LABS: B-TYPE NATRIURETIC PEPTIDE 6000 pg/mL (0-900)
--- NOTE | 2019-03-22 11:40 | CP.PCM.HP ---
History of Present Illness - History of Present Illness History of Present Illness: Medicine H&P for Dr. Ocampo's service CC: sob, chest pain HPI: 48 yo male w/ PMH of substance abuse, medical noncompliance, CAD s/p multiple stent placement (most recent 12/2018 at [facility]), A-fib, CHF, HTN, CVA, chronic LE edema, chronic back pain, anxiety/depression BIBEMS admitted for sob and chest pain. States he saw Dr. Ocampo in the office yesterday and then began to experience chest pain, sob, and cough with productive sputum w/ yellow-green phlegm. Very agitated and rude patient with clinical staff. Continues to deny tr eatment and tests whenever he chooses although patient is educated about severity of situation. Limited ROS due to patient aggression and unpleasantness. PMHx: CAD s/p stent (most recent 12/2018 at [facility]), HTN, Chronic back pain, anxiety/depression, asthma, afib, CHF, CVA, chronic LE edema PSHx: Appendectomy, 2008; 5 cardiac stents (2008-), bilateral knee surgery Allergies: apixaban, clopidogrel, enoxaparin, morphine, warfarin--rash Home Meds: as per chart Family Hx: Mother- DM, Heart failure, arthritis, CA Social Hx: former smoker 1ppd for 35 years, denies ETOH use, hx of cocaine abuse PMD: Dr. Ocampo Present on Admission - Present on Admission Any Indicators Present on Admission: No Review of Systems - Review of Systems All systems: reviewed and no additional remarkable complaints except Review of Systems: see HPI Past Patient History - Infectious Disease Hx of Infectious Diseases: None - Tetanus Immunizations Tetanus Immunization: Up to Date - Past Medical History & Family History Past Medical History?: Yes - Past Social History Smoking Status: Former Smoker - CARDIAC Hx Atrial Fibrillation: Yes (CARDIZEM PO) Hx Cardia Arrhythmia: Yes Hx Congestive Heart Failure: Yes Hx Hypercholesterolemia: Yes Hx Hypertension: Yes Hx Peripheral Edema: Yes - PULMONARY Hx Asthma: Yes Hx Chronic Obstructive Pulmonary Disease (COPD): Yes Hx Pneumonia: Yes Hx Sleep Apnea: Yes - NEUROLOGICAL Hx Neurological Disorder: Yes HX Cerebrovascular Accident: Yes - HEENT Hx HEENT Problems: No - RENAL Hx Chronic Kidney Disease: No - ENDOCRINE/METABOLIC Hx Endocrine Disorders: No - HEMATOLOGICAL/ONCOLOGICAL Hx Human Immunodeficiency Virus (HIV): No - INTEGUMENTARY Hx Dermatological Problems: Yes - MUSCULOSKELETAL/RHEUMATOLOGICAL Hx Arthritis: Yes - GASTROINTESTINAL Hx Gastrointestinal Disorders: Yes Other/Comment: Splenic Hematoma - GENITOURINARY/GYNECOLOGICAL Hx Genitourinary Disorders: No - PSYCHIATRIC Hx Anxiety: Yes Hx Bipolar Disorder: Yes Hx Depression: Yes Hx Substance Use: Yes - SURGICAL HISTORY Hx Appendectomy: Yes (2008) Hx Coronary Stent: Yes (2008 - 2018 5 stents RCA 2019) - ANESTHESIA Hx Anesthesia: Yes Hx Anesthesia Reactions: No Hx Malignant Hyperthermia: No Meds Allergies/Adverse Reactions: Allergies Allergy/AdvReac Type Severity Reaction Status Date / Time apixaban [From Eliquis] Allergy RASH Verified 03/22/19 04:40 enoxaparin sodium Allergy RASH Verified 03/22/19 04:40 [From Lovenox] morphine Allergy RASH Verified 03/22/19 04:40 Physical Exam - Constitutional Appears: Combative, Agitated - Head Exam Head Exam: NORMAL INSPECTION, NORMOCEPHALIC - Eye Exam Eye Exam: EOMI, Normal appearance. absent: Nystagmus, Scleral icterus - ENT Exam ENT Exam: Mucous Membranes Moist - Respiratory Exam Respiratory Exam: Rales, NORMAL BREATHING PATTERN. absent: Rhonchi, Wheezes - Cardiovascular Exam Cardiovascular Exam: Tachycardia, Irregular Rhythm, +S1, +S2 - GI/Abdominal Exam GI & Abdominal Exam: Normal Bowel Sounds, Soft. absent: Diminished Bowel Sounds, Distended, Firm, Guarding, Tenderness - Extremities Exam Extremities exam: Positive for: normal inspection. Negative for: calf tenderness, pedal edema - Neurological Exam Neurological exam: Alert, CN II-XII Intact, Oriented x3 - Psychiatric Exam Psychiatric exam: Normal Affect, Normal Mood - Skin Skin Exam: Dry, Intact, Normal Color Results - Vital Signs Recent Vital Signs: Last Vital Signs Temp 98.6 F 03/22/19 04:36 Pulse 117 H 03/22/19 10:53 Resp 23 03/22/19 10:53 BP 162/84 H 03/22/19 10:53 Pulse Ox 96 03/22/19 10:53 - Labs Result Diagrams: 03/22/19 06:18 03/22/19 06:18 Labs: Laboratory Results - last 24 hr 03/22/19 03/22/19 03/22/19 06:18 06:18 06:18 WBC 11.6 H RBC 4.24 L Hgb 12.2 D Hct 37.3 MCV 88.0 MCH 28.9 MCHC 32.8 L RDW 15.5 H Plt Count 238 MPV 8.1 Neut % (Auto) 75.4 H Lymph % (Auto) 10.7 L Tyler % (Auto) 11.7 H Eos % (Auto) 1.6 Baso % (Auto) 0.6 Neut # (Auto) 8.8 H Lymph # (Auto) 1.2 Tyler # (Auto) 1.4 H Eos # (Auto) 0.2 Baso # (Auto) 0.1 PT 14.7 H INR 1.3 APTT 36.0 H Sodium 135 Potassium 4.3 Chloride 103 Carbon Dioxide 24 Anion Gap 12 BUN 15 Creatinine 0.8 Est GFR ( Amer) > 60 Est GFR (Non-Af Amer) > 60 Random Glucose 95 D Calcium 8.8 Magnesium 1.9 Total Bilirubin 0.7 AST 32 ALT 22 Alkaline Phosphatase 73 Troponin I 0.0410 NT-Pro-B Natriuret Pep 6000 H Total Protein 7.2 Albumin 4.0 Globulin 3.2 Albumin/Globulin Ratio 1.2 Urine Color Urine Clarity Urine pH Ur Specific Newberry Urine Protein Urine Glucose (UA) Urine Ketones Urine Blood Urine Nitrate Urine Bilirubin Urine Urobilinogen Ur Leukocyte Esterase Urine WBC (Auto) Ur Squamous Epith Cells Digoxin Urine Opiates Screen Urine Methadone Screen Ur Barbiturates Screen Ur Phencyclidine Scrn Ur Amphetamines Screen U Benzodiazepines Scrn U Oth Cocaine Metabols U Cannabinoids Screen 03/22/19 03/22/19 03/22/19 06:23 06:40 08:45 WBC RBC Hgb Hct MCV MCH MCHC RDW Plt Count MPV Neut % (Auto) Lymph % (Auto) Tyler % (Auto) Eos % (Auto) Baso % (Auto) Neut # (Auto) Lymph # (Auto) Tyler # (Auto) Eos # (Auto) Baso # (Auto) PT INR APTT Sodium Potassium Chloride Carbon Dioxide Anion Gap BUN Creatinine Est GFR ( Amer) Est GFR (Non-Af Amer) Random Glucose Calcium Magnesium Total Bilirubin AST ALT Alkaline Phosphatase Troponin I NT-Pro-B Natriuret Pep Total Protein Albumin Globulin Albumin/Globulin Ratio Urine Color Yellow Urine Clarity Clear Urine pH 7.0 Ur Specific Newberry 1.016 Urine Protein Negative Urine Glucose (UA) Normal Urine Ketones Negative Urine Blood Negative Urine Nitrate Negative Urine Bilirubin Negative Urine Urobilinogen 2.0 Ur Leukocyte Esterase Neg Urine WBC (Auto) 1 Ur Squamous Epith Cells < 1 Digoxin 6.3 H* Urine Opiates Screen Negative Urine Methadone Screen Negative Ur Barbiturates Screen Negative Ur Phencyclidine Scrn Negative Ur Amphetamines Screen Negative U Benzodiazepines Scrn Negative U Oth Cocaine Metabols Negative U Cannabinoids Screen Negative Assessment & Plan - Assessment and Plan (Free Text) Assessment: 48 M w/ PMhx of CAD s/p stent (most recent 12/2018 at [facility]), HTN, Chronic back pain, anxiety/depression, asthma, afib, CHF, CVA presents to hospital for chest pain & shortness of breath overnight. Plan: Digoxin Toxicity Hold dig no need for Rufus no conduction abnormalities noted on EKG, although patient is actively in afib w/ RVR Afib with RVR ED course: IV cardizem and oral cardizem Hospital course: IV metoprol 5 mg x 1; cardizem 30mg qid po; refused IV metoprolol and refused to use his clinical research monitor patient was educated about the consequences but is very noncompiant, argumentative, and agitated Hx of COPD Duoneb rq4 PRN educate patient on cessation of cigarettes acute CHF exacerbation CXR on 03-22: mild pulm venous congestion Lasix 20mg po daily most recent echo 02-21-19: LV midly dilated; concentric LVH; systolic function is severely impaired; global hypokinesis of the left ventricle daily weights strict Is/Os consider serial bnps repeat cxr when resolved considering Hx of HTN Lisinopril 10mg po daily Lasix 20mg po daily will consider increas based on repeat bp measurements CAD w/ stents Plavix 75 daily Aspirin 81mg daily crestor 20mg daily Hx of chronic pain Drug seeking behavior noted from prior admissions resting comfortably when patient was instructed to wear telemtry Hx of anxiety/depression Drug seeking behavior noted from prior admissions for ativan will monitor PPx DVt ppx: heparin 5000 sc q12 GI ppx: not indicated at this time Dispo: non-compliant agitated patient, refuses treatments and telemetry when necessary PGY-1 Johnny Holm d/w Dr. Ocampo
[2019-03-22] MEDS ORDERED: Metoprolol 1 mg/ml Inj IVP ONE (11:45)
[2019-03-22 15:44] VITALS: RESP 20
[2019-03-22] MEDS: Albuterol-Ipratrop 3 mg / 0.5 (3 ml) UD INH SCH ×2 (15:44→19:33)
[2019-03-22] MEDS ORDERED: Albuterol-Ipratrop 3 mg / 0.5 (3 ml) UD INH SCH (16:00)
[2019-03-23] MEDS: Albuterol-Ipratrop 3 mg / 0.5 (3 ml) UD INH SCH ×5 (00:30→15:26)
--- NOTE | 2019-03-23 07:41 | CP.PCM.PN ---
Subjective - Date & Time of Evaluation Date of Evaluation: 03/23/19 Time of Evaluation: 07:36 - Subjective Subjective: Medicine Progress Note for Dr. Ocampo's service S/E at bedside As per nursing refused telemetry all night Very combative during interview complaining of hospital not giving food searching through bags Limited ROS Deferred physical exam stated he would only speak with Dr. Ocampo Objective - Vital Signs/Intake and Output Vital Signs (last 24 hours): Temp Pulse Resp BP Pulse Ox 97.8 F 110 H 20 142/80 99 03/22/19 15:43 03/22/19 19:04 03/22/19 15:43 03/22/19 19:04 03/22/19 15:43 Intake and Output: 03/23/19 03/23/19 06:59 18:59 Intake Total 320 Balance 320 - Medications Medications: Current Medications Albuterol/Ipratropium (Duoneb 3 Mg/0.5 Mg (3 Ml) Ud) 3 ml INH RQ4 [facility] Last Admin: 03/23/19 04:45 Dose: Not Given Aspirin (Aspirin Chewable) 81 mg PO DAILY [facility] Last Admin: 03/22/19 13:37 Dose: 81 mg Benzonatate (Tessalon Perles) 100 mg PO TID [facility] Last Admin: 03/22/19 19:02 Dose: 100 mg Clopidogrel Bisulfate (Plavix) 75 mg PO DAILY [facility] Last Admin: 03/22/19 13:40 Dose: Not Given Diltiazem HCl (Cardizem) 30 mg PO QID [facility] Last Admin: 03/22/19 22:30 Dose: Not Given Furosemide (Lasix) 20 mg IVP DAILY [facility] Heparin Sodium (Porcine) (Heparin) 5,000 units SC Q12 [facility] Last Admin: 03/22/19 22:31 Dose: Not Given Lisinopril (Zestril) 10 mg PO DAILY [facility] Last Admin: 03/22/19 13:40 Dose: Not Given Rosuvastatin Calcium (Crestor) 20 mg PO HS [facility] Last Admin: 03/22/19 22:31 Dose: Not Given - Labs Labs: 03/22/19 06:18 03/22/19 06:18 PT 14.7 SECONDS (9.7-12.2) H 03/22/19 06:18 INR 1.3 03/22/19 06:18 APTT 36.0 SECONDS (21-34) H 03/22/19 06:18 Assessment and Plan - Assessment and Plan (Free Text) Assessment: 48 M w/ PMhx of CAD s/p stent (most recent 12/2018 at [facility]), HTN, Chronic back pain, anxiety/depression, asthma, afib, CHF, CVA presents to hospital for chest pain & shortness of breath overnight. Plan: Digoxin Toxicity Hold dig no need for Rufus no conduction abnormalities noted on EKG, although patient is actively in afib w/ RVR Afib with RVR ED course: IV cardizem and oral cardizem Hospital course: IV metoprol 5 mg x 1; cardizem 30mg qid po; refused IV metoprolol and refused to use his court monitor remains non compliant with telemtry at times Hx of COPD Duoneb rq4 PRN educate patient on cessation of cigarettes Acute CHF exacerbation CXR on 03-22: mild pulm venous congestion Lasix 20mg po daily most recent echo 02-21-19: LV midly dilated; concentric LVH; systolic function is severely impaired; global hypokinesis of the left ventricle daily weights strict Is/Os consider serial bnps repeat cxr when resolved considering Hx of HTN Lisinopril 10mg po daily Lasix 20mg po daily will consider increas based on repeat bp measurements CAD w/ stents Plavix 75 daily Aspirin 81mg daily crestor 20mg daily Hx of chronic pain Drug seeking behavior noted from prior admissions resting comfortably when patient was instructed to wear telemtry Gabapentin 800mg po tid Hx of anxiety/depression Drug seeking behavior noted from prior admissions for ativan will monitor PPx DVt ppx: heparin 5000 sc q12 GI ppx: not indicated at this time Dispo: non-compliant agitated patient, refuses treatments and telemetry when necessary PGY-1 Johnny Holm d/w Dr. Ocampo
[2019-03-23 07:42] VITALS: TEMP 98.5; O2SAT 97
[2019-03-23 10:46] VITALS: BP 150/110
[2019-03-23 10:57] VITALS: PULSE 138
--- NOTE | 2019-03-23 18:45 | CARD ---
APPROVED REPORT Date of service: 03/22/2019 EKG Measurement Heart [id number] <Conclusion> Atrial fibrillation with rapid ventricular response RSR' or QR pattern in V1 suggests right ventricular conduction delay Left anterior fascicular block Inferior infarct, age undetermined ST & T wave abnormality, consider anterolateral ischemia Abnormal ECG
[2019-03-24] MEDS ORDERED: Pneumococcal 23-Valent Vaccine IM ONE (10:00)
--- NOTE | 2019-03-25 09:26 | PQF ---
PROVIDER RESPONSE TEXT: Combined systolic and diastolic chf, acute on chronic REVIEWER QUERY TEXT: CHF Acuity and Type Physician?s Documentation Request This Form is Not a Permanent Document in the Medical Record Pt Name: ASTON AYON MR #: [id number] Payor: MEDICARE PART A Unit/Bed: [id number] Adm Date: 03/22/2019 8:37:00 AM Reviewer: Thu Berrios Ext. Query Date: 03/24/2019 10:35:41 AM CHF Acuity and Type [id number] By submitting this query, we are merely seeking further clarification of documentation to accurately reflect all conditions that you are monitoring, evaluating, treating or that extend the hospitalizati on or utilize additional resources of care. Please utilize your independent clinical judgment when ad dressing the question(s) below. Dear Doctor Roque Ocampo, The patient?s Clinical Indicators include: 48 M w/ PMhx of CAD. s/p stent HTN/CHF , anxiety, depression, copd Hx of CVA presents to the hospital with chest pain and shortness of breath overnight. Pro Bnp 6000 - H Acute on Chronic CHF Exacerbation Lasix 20 mg po daily. Congestive Heart Failure is documented in the Medical Record. Please document the type and acuity (in cludes probable or suspected) Such as: Type: -- Systolic -- Diastolic -- Combined -- Other, please specify Acuity: -- Acute -- Chronic -- Acute on chronic -- Other, please specify Also please document the underlying cause of the CHF (includes probable or suspected) PLEASE DOCUMENT ANY ADDITIONAL DIAGNOSES AND/OR SPECIFICITY IN THE PROGRESS NOTES AND/OR DISCHARGE RODGERS MMARY. Clinically unable to determine/unknown Disagree with the above request Need to discuss Query created by: Thu Berrios on 03/24/2019 10:35 AM Electronically signed by: Roque Ocampo MD 03/25/2019 9:23 AM
== END 2019-03-23 15:54 | disposition left against medical advice (07) | DRG 302 ==
LOC: C.ER 04:28 → C.9E 08:37 → C.6T 10:45
PROVIDERS: ADMIT Internal Medicine; ATTEND Internal Medicine
DX: I25.10 Atherosclerotic heart disease of native coronary artery without angina pectoris (principal); I50.43 Acute on chronic combined systolic (congestive) and diastolic (congestive) heart failure; I48.91 Unspecified atrial fibrillation; I11.0 Hypertensive heart disease with heart failure; T46.0X5A Adverse effect of cardiac-stimulant glycosides and drugs of similar action, initial encounter; F14.10 Cocaine abuse, uncomplicated; Z91.14 Patient's other noncompliance with medication regimen; J44.9 Chronic obstructive pulmonary disease, unspecified; G47.30 Sleep apnea, unspecified; Z86.73 Personal history of transient ischemic attack (TIA), and cerebral infarction without residual deficits; Z95.5 Presence of coronary angioplasty implant and graft; F41.9 Anxiety disorder, unspecified; F32.9 Major depressive disorder, single episode, unspecified; Z87.891 Personal history of nicotine dependence; R45.1 Restlessness and agitation

== ENCOUNTER 2019-04-20 21:20 | Observation (INO) | payer MEDICARE, MEDICAID ==
[2019-04-20 21:21] VITALS: PULSE 143
[2019-04-20 21:29] VITALS: BMI 38.7
[2019-04-20 21:38] VITALS: RESP 20
--- NOTE | 2019-04-20 21:54 | C.PDOC ---
History Of Present Illness 48 year old male presents to the ED c/o SOB for the past few days. Patient was recently [place] [facility] [place] was [place] for CHF and COPD. Patient denies fever, chills, headache, nausea, vomit, palpitations, rash. Chief Complaint (Nursing): Shortness Of Breath History Per: Patient History/Exam Limitations: no limitations Onset/Duration Of Symptoms: Days Current Symptoms Are (Timing): Still Present Initiating Event: Upper Respiratory Illness Quality: Tightness Current Respiratory Medications: See Home Med List Reports Recently: Seen In ED ([facility] [place] Recent travel outside of the [place]: No Additional History Per: Patient Past Medical History Reviewed: Historical Data, Nursing Documentation, Vital Signs Vital Signs: Last Vital Signs Temp 98.6 F 04/20/19 21:31 Pulse 99 H 04/20/19 21:31 Resp 20 04/20/19 21:31 BP 127/96 H 04/20/19 21:31 Pulse Ox 98 04/20/19 21:31 Primary Care Provider: Roque Ocampo Jr. - Medical History PMH: Anxiety, Arthritis, Asthma, Atrial Fibrillation (CARDIZEM PO), Back Problems, Bipolar Disorder, CAD, Cardia Arrhythmia, CHF, COPD, CVA, Depression, HTN, Hypercholesterolemia, Peripheral Edema, Pneumonia, Sleep Apnea, Chronic Pain (Lower Back Pain) Denies: HIV, Chronic Kidney Disease Surgical History: Appendectomy (2008), Coronary Stent (2008 - 2018 5 stents RCA 2018) - [facility] Procedures CORONAR ARTERIOGR-2 CATH (07/06/13) DRAINAGE OF SPLEEN, PERCUTANEOUS APPROACH (03/05/17) INJECT/INFUSE NEC (02/22/14) LEFT HEART CARDIAC CATH (07/06/13) LT HEART ANGIOCARDIOGRAM (07/06/13) NEBULIZER THERAPY (03/28/14) NON-INVASIVE MECHANICAL VENTILATION (03/26/15) TRANSFUSE NONAUT FROZEN PLASMA IN PERIPH VEIN, PERC (02/21/17) Family History: States: CAD, Diabetes - Social History Hx Tobacco Use: Yes Hx Alcohol Use: No Hx Substance Use: Yes - Immunization History Hx Tetanus Toxoid Vaccination: No Hx Influenza Vaccination: Yes Hx Pneumococcal Vaccination: Yes (08/2014) Review Of Systems Constitutional: Negative for: Fever, Chills Cardiovascular: Negative for: Chest Pain, Palpitations Respiratory: Positive for: Cough, Shortness of Breath Gastrointestinal: Negative for: Nausea, Vomiting, Abdominal Pain Skin: Negative for: Rash Neurological: Negative for: Weakness, Numbness, Headache, Dizziness Physical Exam - Physical Exam Appears: Non-toxic, In Acute Distress Skin: Normal Color, Warm, Dry Head: Atraumatic, Normacephalic Eye(s): bilateral: Normal Inspection Oral Mucosa: Moist Neck: Normal ROM, Supple Chest: Symmetrical Cardiovascular: Rhythm Regular Respiratory: Rales (basal bilateral), No Rhonchi, No Wheezing Gastrointestinal/Abdominal: Soft, No Tenderness, Distention (mild), No Guarding, No Rebound Extremity: Normal ROM, No Tenderness, Pedal Edema (1+ bilateral) Neurological/Psych: Oriented x3, Normal Speech, Normal Cognition Gait: Steady ED Course And Treatment - Laboratory Results Result Diagrams: 04/20/19 21:50 04/20/19 21:50 ECG: Interpreted By Me, Viewed By Me ECG Rhythm: Atrial Fibrillation, R BBB Interpretation Of ECG: atrial fibrillation with controlled rte of 97, IRBBB ST-T abnormality, No significant change from old tracings. O2 Sat by Pulse Oximetry: 98 (ON RA) Pulse Ox Interpretation: Normal - Other Rad CXR X-Ray: Read By Radiologist Interpretation: EXAM: CR Chest, 3 View. CLINICAL HISTORY: Asthma, and sob. COMPARISON: None provided. FINDINGS: LUNGS: There is diffuse interstitial prominence. This can be seen in pulmonary edema or in atypical infectious process. Please correlate clinically. Mild central vascular prominence raising the possibility of pulmonary edema. PLEURAL SPACES: No focal consolidation, pleural effusion or pneumothorax identified. MEDIASTINUM: The heart is moderately enlarged. BONES: Mild multilevel degenerative spine changes. IMPRESSION: 1. The heart is moderately enlarged. 2. There is diffuse interstitial prominence. This can be seen in pulmonary edema or in atypical infectious process. Please correlate clinically. 3. Mild central vascular prominence raising the possibility of pulmonary edema. 4. No focal consolidation, pleural effusion or pneumothorax identified. 5. Mild multilevel degenerative spine changes. . Electronically signed on April 21, 2019 12:51:41 AM EDT by: Farhan Zhong M.D., Certified by ABR, Diagnostic Radiology Medical Decision Making Medical Decision Making: Plan: * EKG * Labs * CXR * Lasix 20 mg IVP Paged multiple times Dr. Ocampo. Once he responded Dr. Ocampo states he does not want the patient and to call Hospitalist for admission. Paged Dr. Clemens Hospitalist care transition manager who accepts patient to the service. Disposition Discussed With : Nilesh Clemens Doctor Will See Patient In The: Hospital Counseled Patient/Family Regarding: Diagnosis - Disposition Disposition: HOSPITALIZED Disposition Time: 03:07 Condition: STABLE Forms: [facility] (Uzbek) - POA Present On Arrival: None - Clinical Impression Clinical Impression: Acute exacerbation of CHF (congestive heart failure) - Scribe Statement The provider has reviewed the documentation as recorded by the Scribe Abimael Camargo All medical record entries made by the Scribe were at my direction and personally dictated by me. I have reviewed the chart and agree that the record accurately reflects my personal performance of the history, physical exam, medical decision making, and the department course for this patient. I have also personally directed, reviewed, and agree with the discharge instructions and disposition.
[2019-04-20 22:40] LABS: BASO # 0.1 K/uL (0.0-0.2); BASO % 0.8 % (0.0-2.0); EOS # 0.7 K/uL (0.0-0.7); HEMOGLOBIN 13.4 g/dL (12.0-18.0); LYMPH # 2.2 K/uL (1.0-4.3); LYMPH % 23.9 % (20.0-40.0); MEAN CORPUSCULAR HEMOGLOBIN 27.8 pg (27.0-31.0); MEAN CORPUSCULAR HGB CONC 32.3 g/dL (33.0-37.0); MEAN PLATELET VOLUME 8.3 fL (7.2-11.7); MONO # 1.1 K/uL (0.0-0.8); MONO % 12.1 % (0.0-10.0); NEUT # 5.2 K/uL (1.8-7.0); NEUT % 55.2 % (50.0-75.0); NRBC % 0.1 % (0.0-2.0); RBC 4.83 Mil/uL (4.40-5.90); RED CELL DISTRIBUTION WIDTH 15.1 % (11.5-14.5); WHITE BLOOD COUNT 9.3 K/uL (4.8-10.8)
[2019-04-20 23:12] LABS: B-TYPE NATRIURETIC PEPTIDE 667 pg/mL (0-900)
[2019-04-20 23:18] LABS: ALBUMIN 4.1 g/dL (3.5-5.0); ALT/SGPT 22 U/L (21-72); AST/SGOT 50 U/L (17-59); BLOOD UREA NITROGEN 42 mg/dL (9-20); CALCIUM 9.2 mg/dl (8.6-10.4); GFR NON-AFRICAN AMERICAN > 60
--- NOTE | 2019-04-21 03:34 | CP.PCM.HP ---
<Nixon Gold - Last Filed: 04/21/19 03:44> History of Present Illness - History of Present Illness History of Present Illness: 48 year old male presents to the ED with lumbar pain and abdominal pain for the past few years. Patient was recently d/c from [facility] [place] where he was admitted for CHF and COPD. Pt says he been non compliant with his medications or with outpt followup, pt does not want to discuss his current condition further, just wants pain medicine. Pt is refusing to cooperate. Patient denies fever, chills, headache, nausea, vomit, palpitations, rash. PMHx: CAD s/p stent (most recent 12/2018 at [facility]), HTN, Chronic back pain, anxiety/depression, asthma, afib, CHF, CVA, chronic LE edema PSHx: Appendectomy, 2008; 5 cardiac stents (2008-), bilateral knee surgery Allergies: apixaban, clopidogrel, enoxaparin, morphine, warfarin--rash Home Meds: as per chart Family Hx: Mother- DM, Heart failure, arthritis, [place] Social Hx: former smoker 1ppd for 35 years, denies ETOH use, hx of cocaine abuse PMD: Dr. Ocampo (former) Present on Admission - Present on Admission Any Indicators Present on Admission: No Review of Systems - Review of Systems All systems: reviewed and no additional remarkable complaints except (as per HPI) Past Patient History - Infectious Disease Hx of Infectious Diseases: None - Tetanus Immunizations Tetanus Immunization: Up to Date - Past Medical History & Family History Past Medical History?: Yes - Past Social History Smoking Status: Former Smoker - CARDIAC Hx Atrial Fibrillation: Yes (CARDIZEM PO) Hx Cardia Arrhythmia: Yes Hx Congestive Heart Failure: Yes Hx Hypercholesterolemia: Yes Hx Hypertension: Yes Hx Peripheral Edema: Yes - PULMONARY Hx Asthma: Yes Hx Chronic Obstructive Pulmonary Disease (COPD): Yes Hx Pneumonia: Yes Hx Sleep Apnea: Yes - NEUROLOGICAL HX Cerebrovascular Accident: Yes - RENAL Hx Chronic Kidney Disease: No - ENDOCRINE/METABOLIC Hx Endocrine Disorders: No - HEMATOLOGICAL/ONCOLOGICAL Hx Human Immunodeficiency Virus (HIV): No - INTEGUMENTARY Hx Dermatological Problems: Yes - MUSCULOSKELETAL/RHEUMATOLOGICAL Hx Arthritis: Yes - GASTROINTESTINAL Hx Gastrointestinal Disorders: Yes Other/Comment: Splenic Hematoma - GENITOURINARY/GYNECOLOGICAL Hx Genitourinary Disorders: No - PSYCHIATRIC Hx Anxiety: Yes Hx Bipolar Disorder: Yes Hx Depression: Yes Hx Substance Use: Yes - SURGICAL HISTORY Hx Appendectomy: Yes (2008) Hx Coronary Stent: Yes (2008 - 2018 5 stents RCA 2019) - ANESTHESIA Hx Anesthesia: Yes Hx Anesthesia Reactions: No Hx Malignant Hyperthermia: No Meds Allergies/Adverse Reactions: Allergies Allergy/AdvReac Type Severity Reaction Status Date / Time apixaban [From Eliquis] Allergy RASH Verified 04/20/19 21:29 enoxaparin sodium Allergy RASH Verified 04/20/19 21:29 [From Lovenox] Physical Exam - Constitutional Appears: No Acute Distress, Unkempt - Head Exam Head Exam: ATRAUMATIC, NORMOCEPHALIC - Eye Exam Eye Exam: EOMI, PERRL Pupil Exam: PERRL - ENT Exam ENT Exam: Mucous Membranes Moist - Respiratory Exam Respiratory Exam: Clear to Auscultation Bilateral, NORMAL BREATHING PATTERN - Cardiovascular Exam Cardiovascular Exam: Irregular Rhythm, +S1, +S2 - GI/Abdominal Exam GI & Abdominal Exam: Tenderness (diffuse with light palpation, however no signs of distress when patient was first sitting up and flexing forward, malingering features) - Back Exam Back exam: vertebral tenderness (positive Margo's signs) - Neurological Exam Neurological exam: Alert, Oriented x3 - Psychiatric Exam Psychiatric exam: Agitated (uncooperative) Results - Vital Signs Recent Vital Signs: Last Vital Signs Temp 98.2 F 04/21/19 00:28 Pulse 91 H 04/21/19 00:28 Resp 20 04/21/19 00:28 BP 133/82 04/21/19 00:28 Pulse Ox 98 04/21/19 03:23 - Labs Result Diagrams: 04/20/19 21:50 04/20/19 21:50 Labs: Laboratory Results - last 24 hr 04/20/19 04/20/19 04/20/19 21:26 21:50 21:50 WBC 9.3 RBC 4.83 Hgb 13.4 Hct 41.5 MCV 86.0 D MCH 27.8 MCHC 32.3 L RDW 15.1 H Plt Count 259 MPV 8.3 Neut % (Auto) 55.2 Lymph % (Auto) 23.9 [place] % (Auto) 12.1 H Eos % (Auto) 8.0 H Baso % (Auto) 0.8 Neut # (Auto) 5.2 Lymph # (Auto) 2.2 [place] # (Auto) 1.1 H Eos # (Auto) 0.7 Baso # (Auto) 0.1 Sodium 136 Potassium 5.2 Chloride 102 Carbon Dioxide 24 Anion Gap 15 BUN 42 H Creatinine 1.1 Est GFR ( Amer) > 60 Est GFR (Non-Af Amer) > 60 POC Glucose (mg/dL) 96 Random Glucose 82 Calcium 9.2 Total Bilirubin 0.5 AST 50 ALT 22 Alkaline Phosphatase 64 Troponin I 0.0280 NT-Pro-B Natriuret Pep 667 Total Protein 8.2 Albumin 4.1 Globulin 4.1 H Albumin/Globulin Ratio 1.0 Assessment & Plan - Assessment and Plan (Free Text) Assessment: 48 M w/ PMhx of CAD s/p stent (most recent 12/2018 at [facility]), HTN, Chronic back pain, anxiety/depression, asthma, afib, CHF, CVA presents to hospital for Lumbar and abdominal pain. Plan: 48M admitted for SOB Drug Seeking Behavior pos Margo's f/u UDS holding all opiate/ benzodiazapine meds pt refusing detox Hx of Afib with RVR Cardizem 30 PO QID Hx of COPD Duoneb rq4 PRN Singulair educate patient on cessation of cigarettes Hx CHF BNP no sign of fluid overload Lungs Clear to Auscultation no signs of acute exacerbation Lasix 20mg po daily most recent echo 02-21-19: LV midly dilated; concentric LVH; systolic function is severely impaired; global hypokinesis of the left ventricle daily weights strict Is/Os Hx of HTN Lisinopril 10mg po daily Lasix 20mg po daily CAD w/ stents Plavix 75 daily Aspirin 81mg daily crestor 20mg daily Hx of chronic pain Drug seeking behavior noted from prior admissions resting comfortably before entering room f/u UDS Hx of anxiety/depression Drug seeking behavior noted from prior admissions for ativan will monitor PPx DVt ppx: heparin 5000 sc q8 GI ppx: not indicated at this time Dispo: non-compliant agitated patient, refuses to cooperate CK PGY1 dw Dr Clemens <Nilesh Clemens N - Last Filed: 04/21/19 04:37> Results - Vital Signs Recent Vital Signs: Last Vital Signs Temp 97.5 F L 04/21/19 04:05 Pulse 68 04/21/19 04:05 Resp 20 04/21/19 04:05 BP 102/66 04/21/19 04:05 Pulse Ox 96 04/21/19 04:05 - Labs Result Diagrams: 04/20/19 21:50 04/20/19 21:50 Labs: Laboratory Results - last 24 hr 04/20/19 04/20/19 04/20/19 21:26 21:50 21:50 WBC 9.3 RBC 4.83 Hgb 13.4 Hct 41.5 MCV 86.0 D MCH 27.8 MCHC 32.3 L RDW 15.1 H Plt Count 259 MPV 8.3 Neut % (Auto) 55.2 Lymph % (Auto) 23.9 [place] % (Auto) 12.1 H Eos % (Auto) 8.0 H Baso % (Auto) 0.8 Neut # (Auto) 5.2 Lymph # (Auto) 2.2 [place] # (Auto) 1.1 H Eos # (Auto) 0.7 Baso # (Auto) 0.1 Sodium 136 Potassium 5.2 Chloride 102 Carbon Dioxide 24 Anion Gap 15 BUN 42 H Creatinine 1.1 Est GFR ( Amer) > 60 Est GFR (Non-Af Amer) > 60 POC Glucose (mg/dL) 96 Random Glucose 82 Calcium 9.2 Total Bilirubin 0.5 AST 50 ALT 22 Alkaline Phosphatase 64 Troponin I 0.0280 NT-Pro-B Natriuret Pep 667 Total Protein 8.2 Albumin 4.1 Globulin 4.1 H Albumin/Globulin Ratio 1.0 Attending/Attestation - Attestation I have fully participated in the care of the patient.: Yes I have reviewed all pertinent clinical information: Yes Notes (Text): 04/21/19 04:37 pt was seen and managed with resident .
[2019-04-21 03:35] VITALS: O2SAT 96
[2019-04-21 04:30] VITALS: TEMP 97.5
[2019-04-21 07:01] LABS: BARBITURATES, UR NEGATIVE (NEGATIVE); BENZODIAZEPINES, UR NEGATIVE (NEGATIVE); OPIATES, UR NEGATIVE (NEGATIVE); PHENCYCLIDINE, UR NEGATIVE (NEGATIVE)
--- NOTE | 2019-04-21 09:39 | RAD ---
Date of service: 04/20/2019 HISTORY: Asthma. Shortness of breath. COMPARISON: 03/22/2019 TECHNIQUE: Chest PA and lateral FINDINGS: LUNGS: Worsening diffuse increased interstitial lung markings which may represent venous congestion versus edema versus interstitial infiltrate. Clinical correlation. PLEURA: No significant pleural effusion identified. No pneumothorax apparent. CARDIOVASCULAR: No aortic atherosclerotic calcification present. Cardiomegaly. Tortuous ectatic aorta. OSSEOUS STRUCTURES: No significant abnormalities. VISUALIZED UPPER ABDOMEN: Normal. OTHER FINDINGS: None. IMPRESSION: Worsening diffuse increased interstitial lung markings which may represent venous congestion versus edema versus interstitial infiltrate. Clinical correlation.
[2019-04-21] MEDS ORDERED: Furosemide 10 mg/mL LIQ (60mL) PO SCH (10:00)
--- NOTE | 2019-04-21 10:37 | CP.PCM.DIS ---
<MarisolPorfirio - Last Filed: 04/21/19 18:27> Provider - Provider Date of Admission: 04/21/19 03:07 Attending physician: Nilesh Clemens MD Time Spent in preparation of Discharge (in minutes): 35 Diagnosis - Discharge Diagnosis (1) Drug-seeking behavior Status: Chronic (2) Presence of stent in coronary artery in patient with coronary artery disease Status: Chronic (3) Depression Status: Chronic (4) Afib Status: Chronic (5) Anxiety Status: Chronic (6) CHF (congestive heart failure) Status: Chronic (7) Chronic back pain Status: Chronic (8) Chronic obstructive pulmonary disease (COPD) Status: Chronic (9) Hypertension Status: Chronic Hospital Course - Lab Results Lab Results: Most Recent Lab Values WBC 9.3 K/uL (4.8-10.8) 04/20/19 21:50 RBC 4.83 Mil/uL (4.40-5.90) 04/20/19 21:50 Hgb 13.4 g/dL (12.0-18.0) 04/20/19 21:50 Hct 41.5 % (35.0-51.0) 04/20/19 21:50 MCV 86.0 fL (80.0-94.0) D 04/20/19 21:50 MCH 27.8 pg (27.0-31.0) 04/20/19 21:50 MCHC 32.3 g/dL (33.0-37.0) L 04/20/19 21:50 RDW 15.1 % (11.5-14.5) H 04/20/19 21:50 Plt Count 259 K/uL (130-400) 04/20/19 21:50 MPV 8.3 fL (7.2-11.7) 04/20/19 21:50 Neut % (Auto) 55.2 % (50.0-75.0) 04/20/19 21:50 Lymph % (Auto) 23.9 % (20.0-40.0) 04/20/19 21:50 [place] % (Auto) 12.1 % (0.0-10.0) H 04/20/19 21:50 Eos % (Auto) 8.0 % (0.0-4.0) H 04/20/19 21:50 Baso % (Auto) 0.8 % (0.0-2.0) 04/20/19 21:50 Neut # (Auto) 5.2 K/uL (1.8-7.0) 04/20/19 21:50 Lymph # (Auto) 2.2 K/uL (1.0-4.3) 04/20/19 21:50 [place] # (Auto) 1.1 K/uL (0.0-0.8) H 04/20/19 21:50 Eos # (Auto) 0.7 K/uL (0.0-0.7) 04/20/19 21:50 Baso # (Auto) 0.1 K/uL (0.0-0.2) 04/20/19 21:50 Sodium 136 mmol/L (132-148) 04/20/19 21:50 Potassium 5.2 mmol/L (3.6-5.2) 04/20/19 21:50 Chloride 102 mmol/L (98-107) 04/20/19 21:50 Carbon Dioxide 24 mmol/L (22-30) 04/20/19 21:50 Anion Gap 15 (10-20) 04/20/19 21:50 BUN 42 mg/dL (9-20) H 04/20/19 21:50 Creatinine 1.1 mg/dL (0.8-1.5) 04/20/19 21:50 Est GFR ( Amer) > 60 04/20/19 21:50 Est GFR (Non-Af Amer) > 60 04/20/19 21:50 POC Glucose (mg/dL) 96 mg/dL (65-110) 04/20/19 21:26 Random Glucose 82 mg/dL (75-110) 04/20/19 21:50 Calcium 9.2 mg/dl (8.6-10.4) 04/20/19 21:50 Total Bilirubin 0.5 mg/dL (0.2-1.3) 04/20/19 21:50 AST 50 U/L (17-59) 04/20/19 21:50 ALT 22 U/L (21-72) 04/20/19 21:50 Alkaline Phosphatase 64 U/L (38-126) 04/20/19 21:50 Troponin I 0.0260 ng/mL (0.00-0.120) 04/21/19 07:50 NT-Pro-B Natriuret Pep 667 pg/mL (0-900) 04/20/19 21:50 Total Protein 8.2 g/dL (6.3-8.3) 04/20/19 21:50 Albumin 4.1 g/dL (3.5-5.0) 04/20/19 21:50 Globulin 4.1 gm/dL (2.2-3.9) H 04/20/19 21:50 Albumin/Globulin Ratio 1.0 (1.0-2.1) 04/20/19 21:50 Urine Opiates Screen Negative (NEGATIVE) 04/21/19 06:36 Urine Methadone Screen Negative (NEGATIVE) 04/21/19 06:36 Ur Barbiturates Screen Negative (NEGATIVE) 04/21/19 06:36 Ur Phencyclidine Scrn Negative (NEGATIVE) 04/21/19 06:36 Ur Amphetamines Screen Negative (NEGATIVE) 04/21/19 06:36 U Benzodiazepines Scrn Negative (NEGATIVE) 04/21/19 06:36 U Oth Cocaine Metabols Negative (NEGATIVE) 04/21/19 06:36 U Cannabinoids Screen Negative (NEGATIVE) 04/21/19 06:36 - Hospital Course Hospital Course: On admission: 48 year old male presents to the ED with lumbar pain and abdominal pain for the past few years. Patient was recently d/c from [facility] [place] where he was admitted for CHF and COPD. Pt says he been non compliant with his medications or with outpt followup, pt does not want to discuss his current condition further, just wants pain medicine. Pt is refusing to cooperate. Patient denies fever, chills, headache, nausea, vomit, palpitations, rash. Hospital course: CXR showed increased vascular markings/pulmonary vascular congestion; similar to previous CXR. BNP was normal. Troponin negative to date. Pt was diuresed with IV lasix. Home meds restarted. Pt complains of chronic back pain and states that when he was at [facility] [place] recently that he should be referred to a neurosurgeon for spinal procedure. Pt provided with referral and contact number for Dr. Samuel/Dr. Wilson. Pt instructed to follow up with his insurance to obtain neurosurgeon/pain management if needed. Pt provided with Motrin prescription to take as needed for pain. Instructed to avoid alcohol and to take the Motrin with food only. This is a summary of the hospital course. Please see EMR for full details. Discharge Exam - Head Exam Head Exam: ATRAUMATIC, NORMOCEPHALIC - Eye Exam Eye Exam: EOMI, Normal appearance - ENT Exam ENT Exam: Mucous Membranes Moist - Respiratory Exam Respiratory Exam: NORMAL BREATHING PATTERN. absent: Rales, Rhonchi, Wheezes, Respiratory Distress, Stridor - Cardiovascular Exam Cardiovascular Exam: Irregular Rhythm, +S1, +S2. absent: Tachycardia Additional comments: 2+ pulses distal bilateral upper and lower extremities - GI/Abdominal Exam GI & Abdominal Exam: Distended (chronic/obese), Normal Bowel Sounds. absent: Firm, Guarding, Rebound, Rigid, Soft, Tenderness - Extremities Exam Additional comments: No pedal edema, no calf tenderness Chronic venous stasis changes - Back Exam Back exam: absent: CVA tenderness (L), CVA tenderness (R) - Neurological Exam Neurological exam: Alert, Oriented x3 - Psychiatric Exam Psychiatric exam: Anxious, Normal Affect, Normal Mood - Skin Skin Exam: Dry, Normal Color, Warm Discharge Plan - Discharge Medications Prescriptions: Ibuprofen [Motrin Tab] 800 mg PO TID PRN #15 tab PRN Reason: Pain, Moderate (4-7) - Follow Up Plan Condition: STABLE Disposition: HOME/ ROUTINE Instructions: Heart Healthy Diet, Heart Failure, Adult (DC), Low Salt Diet, Ibuprofen Additional Instructions: Pt is medically stable for discharge home. Pt should resume taking home medications as previously prescribed. Additionally, provided with prescription: Motrin 800 mg one tab by mouth every 8 hours as needed for pain. #15 Take with food only, and do not consume alcoholic beverages with this medication. Pt should follow up with PMD, or [facility], within 1 week of discharge. [facility]: . Pt should follow up with institutional custodian, Dr. Jose Morgan, within 2 weeks of discharge home. Pt provided with contact information for Neurosurgery, Dr. Tavera/Dr. Samuel, as requested by pt for spinal surgery. Otherwise, pt should call insurance company to obtain referral or list of neurosurgeons/pain management specialists in his area/network. Should symptoms worse, please head to the nearest Emergency Department. Instructions explained to the pt, who understands and agrees with discharge plan. Referrals: Cornell Samuel MD [Staff Provider] - Clinic,Med Surg [Non-Staff] - Antoine Tavera MD [Staff Provider] - <VishJassi grijalvaamaelza - Last Filed: 04/21/19 19:27> Provider - Provider Date of Admission: 04/21/19 03:07 Attending physician: Nilesh Clemens MD Hospital Course - Lab Results Lab Results: Most Recent Lab Values WBC 9.3 K/uL (4.8-10.8) 04/20/19 21:50 RBC 4.83 Mil/uL (4.40-5.90) 04/20/19 21:50 Hgb 13.4 g/dL (12.0-18.0) 04/20/19 21:50 Hct 41.5 % (35.0-51.0) 04/20/19 21:50 MCV 86.0 fL (80.0-94.0) D 04/20/19 21:50 MCH 27.8 pg (27.0-31.0) 04/20/19 21:50 MCHC 32.3 g/dL (33.0-37.0) L 04/20/19 21:50 RDW 15.1 % (11.5-14.5) H 04/20/19 21:50 Plt Count 259 K/uL (130-400) 04/20/19 21:50 MPV 8.3 fL (7.2-11.7) 04/20/19 21:50 Neut % (Auto) 55.2 % (50.0-75.0) 04/20/19 21:50 Lymph % (Auto) 23.9 % (20.0-40.0) 04/20/19 21:50 [place] % (Auto) 12.1 % (0.0-10.0) H 04/20/19 21:50 Eos % (Auto) 8.0 % (0.0-4.0) H 04/20/19 21:50 Baso % (Auto) 0.8 % (0.0-2.0) 04/20/19 21:50 Neut # (Auto) 5.2 K/uL (1.8-7.0) 04/20/19 21:50 Lymph # (Auto) 2.2 K/uL (1.0-4.3) 04/20/19 21:50 [place] # (Auto) 1.1 K/uL (0.0-0.8) H 04/20/19 21:50 Eos # (Auto) 0.7 K/uL (0.0-0.7) 04/20/19 21:50 Baso # (Auto) 0.1 K/uL (0.0-0.2) 04/20/19 21:50 Sodium 136 mmol/L (132-148) 04/20/19 21:50 Potassium 5.2 mmol/L (3.6-5.2) 04/20/19 21:50 Chloride 102 mmol/L (98-107) 04/20/19 21:50 Carbon Dioxide 24 mmol/L (22-30) 04/20/19 21:50 Anion Gap 15 (10-20) 04/20/19 21:50 BUN 42 mg/dL (9-20) H 04/20/19 21:50 Creatinine 1.1 mg/dL (0.8-1.5) 04/20/19 21:50 Est GFR ( Amer) > 60 04/20/19 21:50 Est GFR (Non-Af Amer) > 60 04/20/19 21:50 POC Glucose (mg/dL) 96 mg/dL (65-110) 04/20/19 21:26 Random Glucose 82 mg/dL (75-110) 04/20/19 21:50 Calcium 9.2 mg/dl (8.6-10.4) 04/20/19 21:50 Total Bilirubin 0.5 mg/dL (0.2-1.3) 04/20/19 21:50 AST 50 U/L (17-59) 04/20/19 21:50 ALT 22 U/L (21-72) 04/20/19 21:50 Alkaline Phosphatase 64 U/L (38-126) 04/20/19 21:50 Troponin I 0.0260 ng/mL (0.00-0.120) 04/21/19 07:50 NT-Pro-B Natriuret Pep 667 pg/mL (0-900) 04/20/19 21:50 Total Protein 8.2 g/dL (6.3-8.3) 04/20/19 21:50 Albumin 4.1 g/dL (3.5-5.0) 04/20/19 21:50 Globulin 4.1 gm/dL (2.2-3.9) H 04/20/19 21:50 Albumin/Globulin Ratio 1.0 (1.0-2.1) 04/20/19 21:50 Urine Opiates Screen Negative (NEGATIVE) 04/21/19 06:36 Urine Methadone Screen Negative (NEGATIVE) 04/21/19 06:36 Ur Barbiturates Screen Negative (NEGATIVE) 04/21/19 06:36 Ur Phencyclidine Scrn Negative (NEGATIVE) 04/21/19 06:36 Ur Amphetamines Screen Negative (NEGATIVE) 04/21/19 06:36 U Benzodiazepines Scrn Negative (NEGATIVE) 04/21/19 06:36 U Oth Cocaine Metabols Negative (NEGATIVE) 04/21/19 06:36 U Cannabinoids Screen Negative (NEGATIVE) 04/21/19 06:36 Attending/Attestation - Attestation I have personally seen and examined this patient.: Yes I have fully participated in the care of the patient.: Yes I have reviewed all pertinent clinical information, including history, physical exam and plan: Yes Notes (Text): seen and examined this morning. Patient was sitting on the bed comfortable without discomfort. He denies chest pain,no sob. c/o back pain. He wants pain medication and appointment with spine surgery. Recommend to follow his pain management physician and primary care physician as an out pt.
[2019-04-21 11:55] VITALS: BP 115/73
[2019-04-21 12:45] VITALS: PULSE 75
== END 2019-04-21 12:48 | disposition home or self-care (01) ==
LOC: C.ER 21:20 → C.6T 04-21 03:07 → INTOOBSV 04-21 03:07
PROVIDERS: ADMIT Emergency Medicine; ATTEND Emergency Medicine
DX: Z76.5 Malingerer [conscious simulation] (principal); I11.0 Hypertensive heart disease with heart failure; I48.91 Unspecified atrial fibrillation; I50.9 Heart failure, unspecified; J44.9 Chronic obstructive pulmonary disease, unspecified; I25.10 Atherosclerotic heart disease of native coronary artery without angina pectoris; G89.29 Other chronic pain; G47.30 Sleep apnea, unspecified; F31.9 Bipolar disorder, unspecified; E78.00 Pure hypercholesterolemia, unspecified; F41.9 Anxiety disorder, unspecified; Z86.73 Personal history of transient ischemic attack (TIA), and cerebral infarction without residual deficits; Z87.01 Personal history of pneumonia (recurrent); Z87.891 Personal history of nicotine dependence; Z95.5 Presence of coronary angioplasty implant and graft; Z90.49 Acquired absence of other specified parts of digestive tract; Z91.14 Patient's other noncompliance with medication regimen; Z82.49 Family history of ischemic heart disease and other diseases of the circulatory system; Z83.3 Family history of diabetes mellitus
CPT/HCPCS: 36415; 71046; 80053; 82948; 83880; 84484; 85025; 96374; G0378; G0480; J1940